=== PATIENT | female | born 1950 | race Asian ===

== ENCOUNTER 2017-10-06 20:35 | Inpatient (IN) | payer MEDICARE, SELFPAY ==
[2017-10-06 20:37] VITALS: BP 132/66; PULSE 41; RESP 16; TEMP 37; O2SAT 96; BMI 32.8
[2017-10-06 20:50] VITALS: PULSE 38; RESP 16; O2SAT 93
--- NOTE | 2017-10-06 21:10 | EKG12_ITS ---
Test Reason : BRADYCARDIA Blood Pressure : / mmHG Vent. Rate : 039 BPM Atrial Rate : 040 BPM P-R Int : 000 ms QRS Dur : 102 ms QT Int : 470 ms P-R-T Axes : 000 042 -30 degrees QTc Int : [address] & T wave abnormality, consider inferior ischemia Abnormal ECG Confirmed by WOOD LAMAR, JAHAIRA ([id number]), television news video editor DALLAS SAMSON ([id number]) on 10/08/2017 2:23:57 PM Referred By: Confirmed By:JAHAIRA MUIR MD
--- NOTE | 2017-10-06 21:15 | RAD_ITS ---
STUDY: X-RAY CHEST REASON FOR EXAM: Female, 67 years old. Dizziness, vaginal bleeding TECHNIQUE: Single AP portable view of the chest. COMPARISON: 06/20/2017. FINDINGS: EKG lines overlying the chest. The lungs are expanded. There is no demonstrated pleural abnormality. There is mild cardiac enlargement. Normal mediastinum and jannette. There is prominence of the pulmonary hilar arteries without peripheral pulmonary vascular congestion, suggesting pulmonary hypertension. Normal visualized aortic arch and descending thoracic aorta. Normal visualized thoracic spine. Normal visualized ribs, clavicles, and shoulders. There is no demonstrated abnormality of the visualized soft tissue structures of the upper abdomen. RAD/Chest 1 View (Portable) IMPRESSION: Pulmonary hypertension. Mild cardiomegaly. No infiltrate. Electronically Signed: Tirso Ovalle DO at 21:42 EST , Service support ,
[2017-10-06] MEDS: 0.9% Normal Saline 1,000 ML 1000 ML IV (21:21)
[2017-10-06 21:23] VITALS: BP 111/62; BP 111/64; BP 122/57; PULSE 35; PULSE 38; PULSE 39
[2017-10-06 21:32] LABS: Anion Gap 11 (5-15); BUN 32 mg/dL (7-18); BUN/Creat Ratio 35.2 RATIO (10-20); Calcium,Total 8.9 mg/dL (8.5-10.1); Chloride 107 mmol/L (98-107); Creatinine, Serum 0.91 mg/dL (0.55-1.02); EST Glomerular Filtration Rate 66 mL/min (>60); Est Glom Filt Rate - Afr Amer 80 mL/min (>60); Estimated Creatinine Clearance 46.51 ml/min; Glucose 155 mg/dL (74-106); Potassium 4.2 mmol/L (3.5-5.1); Sodium Level 140 mmol/L (136-145)
[2017-10-06 21:56] LABS: Absolute Lymphocyte Count 3.74 X10^3/ul (0.83-4.51); Absolute Neutrophil Count 3.4 X10^3/uL (2.0-7.7); Basophil# 0.03 X10^3/uL; Basophil% 0.4 % (0-1); Eosinophil# 0.14 X10^3/uL; Eosinophils% 1.8 % (0-5); Hemoglobin 10.8 g/dl (12.0-15.0); Lymphocyte # 3.74 X10^3/ul (4.0); Lymphocyte % 48.3 % (19-41); Mean Corp Hgb Conc 30.9 g/gl (32-36); Mean Corpuscular Hgb 26.8 pg (27.0-32.0); Mean Corpuscular Volume 86.8 fL (81-99); Mean Platelet Vol. 9.7 fl (6.2-12.0); Monocyte# 0.43 X10^3/uL; Monocyte% 5.5 % (0-10); Neutrophil # 3.38 X10^3/uL (2.7-7.7); Neutrophil % 43.6 % (47-70); Platelet Count 206 K/mm3 (150-450); RBC Distribution Width CV 14.5 % (11.6-14.6); RBC Distribution Width SD 45.8 fl (35.1-43.9); Red Blood Count 4.03 M/mm3 (4.2-5.4); White Blood Count 7.8 K/mm3 (4.4-11.0)
[2017-10-06 21:59] LABS: POSITIVE COUNT NO; POSITIVE DIFFERENTIAL NO; POSITIVE MORPHOLOGY NO
--- NOTE | 2017-10-06 22:21 | US_ITS ---
STUDY: ULTRASOUND OF THE FEMALE PELVIS - COMPLETE REASON FOR EXAM: Female, 67 years old. Post menopausal bleeding TECHNIQUE: Transabdominal and Transvaginal TECHNICAL QUALITY: Adequate. COMPARISON: None. FINDINGS: The uterus is removed. Ovaries are not visualized. No adnexal mass. There is no fluid in the cul-de-sac. The pre void volume of the bladder was 181 ml. Debris within the bladder. US/Pelvic (Non ) IMPRESSION: Uterus removed. No adnexal mass. Ovaries not visualized. Debris within the urinary bladder. Electronically Signed: Tirso Ovalle DO at 23:01 EST , Service support ,
--- NOTE | 2017-10-06 22:24 | ED.VISSUMM ---
- ER Visit Summary Date of Service: 10/06/17 Chief Complaint: Vaginal bleeding, lightheadedness History of Present Illness: The patient is a 67 F presenting with vaginal bleeding which started earlier this morning. She was seen by Dr. Riggs her primary care physician. She confirmed that this was vaginal bleeding and not urinary. She referred her to see Dr. Sarah Hodges a week from Wednesday. She states throughout the day she had bleeding similar to a period. She states she soaked through 4-5 pads. She has a history of previous partial hysterectomy. She is on eliquis for history of atrial fibrillation. She takes metoprolol bid. She has had lightheadedness and near syncope today. Denies chest pain, shortness of breath, or abdominal pain. Physical Examination: Heart rate 30-35. Patient is afebrile. Alert no acute distress. HEENT exam is unremarkable. Neck is supple. Lungs are clear and equal bilaterally. Heart is regular bradycardic Abdomen is soft nontender nondistended. Pelvic exam: Minimal vaginal bleeding Extremities are unremarkable. Skin is warm and dry. Remainder of exam is unremarkable. Emergency Department Course and Treatment: Orthostatics are negative. Patient continues to be bradycardic in the 30s. Chest x-ray shows mild cardiomegaly with no infiltrate. EKG is junctional bradycardia rate of 39 with inferior T-wave inversion. This is changed from previous EKG May 2017. CBC normal except for hemoglobin 10.8. Chemistries unremarkable except for glucose 155, BUN 32. Troponin is negative. Discussed with Dr. Miller who is agreeable with consult, he requests pelvic ultrasound prior to admission. Discussed with Dr. Pollock who will also see the patient in consultation, recommends holding metoprolol and observation. Discussed with the hospitalist for admission. Disposition: Observation Impression: Symptomatic bradycardia, vaginal bleeding This note was generated with [employer] dictation software. It may contain incorrect words, spelling, and punctuation that were not noted in review of the chart prior to signing ED Disposition - Plan for ED Patient: Chief Complaint: Vag Bleeding Referrals: Hannah Riggs DO [Primary Care Provider] -
[2017-10-06 22:26] VITALS: BP 108/67; PULSE 35; RESP 20
--- NOTE | 2017-10-06 22:32 | ED.DCSUM_ITS ---
- ER Visit Summary Date of Service: 10/06/17 Chief Complaint: Vaginal bleeding, lightheadedness History of Present Illness: The patient is a 67 F presenting with vaginal bleeding which started earlier this morning. She was seen by Dr. Riggs her primary care physician. She confirmed that this was vaginal bleeding and not urinary. She referred her to see Dr. Sarah Hodges a week from Wednesday. She states throughout the day she had bleeding similar to a period. She states she soaked through 4-5 pads. She has a history of previous partial hysterectomy. She is on eliquis for history of atrial fibrillation. She takes metoprolol bid. She has had lightheadedness and near syncope today. Denies chest pain, shortness of breath, or abdominal pain. Physical Examination: Heart rate 30-35. Patient is afebrile. Alert no acute distress. HEENT exam is unremarkable. Neck is supple. Lungs are clear and equal bilaterally. Heart is regular bradycardic Abdomen is soft nontender nondistended. Pelvic exam: Minimal vaginal bleeding Extremities are unremarkable. Skin is warm and dry. Remainder of exam is unremarkable. Emergency Department Course and Treatment: Orthostatics are negative. Patient continues to be bradycardic in the 30s. Chest x-ray shows mild cardiomegaly with no infiltrate. EKG is junctional bradycardia rate of 39 with inferior T- wave inversion. This is changed from previous EKG May 2017. CBC normal except for hemoglobin 10.8. Chemistries unremarkable except for glucose 155, BUN 32. Troponin is negative. Discussed with Dr. Miller who is agreeable with consult, he requests pelvic ultrasound prior to admission. Discussed with Dr. Pollock who will also see the patient in consultation, recommends holding metoprolol and observation. Discussed with the hospitalist for admission. Disposition: Observation Impression: Symptomatic bradycardia, vaginal bleeding This note was generated with [employer] dictation software. It may contain incorrect words, spelling, and punctuation that were not noted in review of the chart prior to signing ED Disposition - Plan for ED Patient: Chief Complaint: Vag Bleeding Referrals: Hannah Riggs DO [Primary Care Provider] -
--- NOTE | 2017-10-06 23:49 | PCM.HP.STD ---
Problem List (1) Bradycardia Status: Acute (2) Vaginal bleeding Status: Acute (3) Atrial fibrillation Status: Chronic (4) HLD (hyperlipidemia) Status: Chronic (5) HTN (hypertension) Status: Chronic (6) Diabetes Status: Chronic (7) SDH (subdural hematoma) Status: Chronic (8) Seizure Status: Acute History of Present Illness Date of Admission: 10/06/17 Chief Complaint: vaginal bleeding The patient is a 67 year old F who has been having vaginal bleeding for a few weeks. Once all provider and was noted to be bradycardic and sent to the emergency room. In the emergency room patient was noted noted to have a junctional bradycardia. Patient does states that she is having some chest pain as well as occasional shortness of breath and dizziness. Currently, resting in the bed, she is not having current symptoms. Patient has been on metoprolol for several months now the dose has not been changed. She did receive her metoprolol at 1800 today. Patient did receive IV fluids in the emergency room. Patient has been having is vaginal bleeding which she describes as heavy periods like. Patient had a hysterectomy 20 years ago. Patient is on Eliquis for atrial fibrillation which she has been on for some time. [] Past Medical History Past Medical History (Chronic Problems): Chronic Problems Atrial fibrillation (Chronic) HLD (hyperlipidemia) (Chronic) HTN (hypertension) (Chronic) Diabetes (Chronic) SDH (subdural hematoma) (Chronic) Allergies escitalopram [From Lexapro] Allergy (Verified 10/06/17 20:37) Rash shellfish derived Allergy (Verified 10/06/17 20:37) Unknown perfume Adverse Reaction (Verified 10/06/17 20:37) Unknown pineapple Adverse Reaction (Verified 10/06/17 20:37) Rash quinine Adverse Reaction (Verified 10/06/17 20:37) Unknown strawberry Adverse Reaction (Verified 10/06/17 20:37) Rash Sulfa (Sulfonamide Antibiotics) Adverse Reaction (Verified 10/06/17 20:37) Unknown DUST Adverse Reaction (Uncoded 10/06/17 20:37) Unknown Home Medications: Ambulatory Orders Medication Instructions Recorded Alendronate Sodium [Fosamax] 70 mg PO PRECIADO 04/08/17 Fexofenadine HCl [Children's 30 mg PO DAILY 04/08/17 Merry Allergy] Metformin HCl [Glucophage] 500 mg PO BIDCM 04/08/17 Multivitamins,Therapeutic 1 tablet PO DAILY 04/08/17 [Multivitamin] Simvastatin [Zocor] 40 mg PO QHS 04/08/17 Mirtazapine 30 mg PO QHS 05/20/17 Oxybutynin Chloride [Ditropan Xl] 5 mg PO DAILY 05/20/17 Lacosamide [Vimpat] 200 mg PO BID #60 tablet 09/02/17 Metoprolol Tartrate 25 mg PO BID 09/02/17 Oxycodone HCl/Acetaminophen 1 tablet PO Q6H PRN PRN 09/02/17 [Percocet 5/325] Amlodipine [Norvasc] 5 mg PO DAILY 10/06/17 Apixaban [Eliquis] 2.5 mg PO BID 10/06/17 Empagliflozin [Jardiance] 10 mg PO DAILY 10/06/17 Lacosamide [Vimpat] 200 mg PO BID 10/06/17 Surgical History: no surgical history Psychiatric History: No pertinent psych hx 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 Denies: Edema Respiratory: Reports: Shortness of Breath, Shortness of breath at rest. Denies: Cough, Sputum production Gastrointestinal: Denies: Abdominal Pain, Nausea, Vomiting Genitourinary: Denies: Dysuria Gynecological: Reports: Vaginal bleeding Musculoskeletal: Denies: Joint Pain, Joint Tenderness Skin: Reports: - - Bruising from IV attempts. Denies: Rash, Wounds Neurological: Reports: Seizures. Denies: Focal weakness, Numbness, Tingling Psychiatric: Denies: Anxiety, Depression Endocrine: Denies: Change in Body Habitus, Heat/ Cold Intolerance Hematologic/ Lymphatic: Reports: Easy Bruising, Easy Bleeding. Denies: Hx of blood clot VTE Information - Inpt Only VTE Present on Admission: No VTE Mechan Device Prophylaxis: SCD's Reason prophylaxis not ordered:: Medical Contraindication Patient Problems: Active and Suspected Problems Bradycardia (Acute) Vaginal bleeding (Acute) - Physical Exam General: Alert, Cooperative, No apparent distress HEENT: Atraumatic, Normocephalic, - - No icterus Oral: Moist Mucosa, No Gingival or Mucosal Lesions/ Ulcerations Neck: No Nodes, Thyroid Normal Size and Texture Lungs: Clear to auscultation, Normal air movement, No rhonchi, No wheeze Cardiovascular: Regular rate, Regular Rhythm, Normal S1, Normal S2, No murmurs Abdomen: Bowel Sounds Present, Soft, Non Tender, Non-Distended, No Hepato-splenomegaly Extremities: No edema, No Calf Tenderness Skin: No rashes, - - Some bruising in the left antecubital from IV attempts and lab draws. Musculoskeletal: No Tenderness to Palpation of Joints or Extremities, No Muscle Wasting Neurological: Deep Tendon Reflexes 2+/4 and Symmetrical, Neuro grossly intact, Sensory exam intact to light touch and pain, - - No clonus Psych/Mental Status: Normal Affect, Appropriate Vital Signs Temp Pulse Resp BP Pulse Ox 37.0 C 35 L 20 H 108/67 93 10/06/17 20:37 10/06/17 22:26 10/06/17 22:26 10/06/17 22:26 10/06/17 20:50 Oxygen Delivery Method Room Air Weight: 78.8 kg Body Mass Index (BMI) 32.8 Finger Stick Blood Glucose 129 Laboratory Tests Past 24 Hrs 10/06/17 10/06/17 20:55 20:55 WBC 7.8 RBC 4.03 L Hgb 10.8 L Hct 35.0 L MCV 86.8 MCH 26.8 L MCHC 30.9 L RDW 14.5 RDW Differential 45.8 H Plt Count 206 MPV 9.7 Immature Gran % (Auto) 0.400 Neut % (Auto) 43.6 L Lymph % (Auto) 48.3 H [place] % (Auto) 5.5 Eos % (Auto) 1.8 Baso % (Auto) 0.4 Absolute Neuts (auto) 3.4 Absolute Lymphs (auto) 3.74 Total Counted Not Reportable Sodium 140 Potassium 4.2 Chloride 107 Carbon Dioxide 22.0 Anion Gap 11 BUN 32 H Creatinine 0.91 Estim Creat Clear Calc 46.51 Est GFR (MDRD) Af Amer 80 Est GFR (MDRD) Non-Af 66 BUN/Creatinine Ratio 35.2 H Glucose 155 H Calcium 8.9 Troponin I 0.03 Clinical Impression(s) from Imaging Studies Chest X-Ray 10/06/17 21:15 IMPRESSION: Pulmonary hypertension. Mild cardiomegaly. No infiltrate. Electronically Signed: Trisoamrik NuñezDO vianney at 21:42 EST , Service support , Pelvis Ultrasound 10/06/17 22:21 IMPRESSION: Uterus removed. No adnexal mass. Ovaries not visualized. Debris within the urinary bladder. Electronically Signed: Tirso Ovalle DO at 23:01 EST , Service support , EKG personally reviewed and showed a junctional bradycardia. Assessment/Plan Active and Suspected Problems Bradycardia (Acute) Vaginal bleeding (Acute) 1. Bradycardia Junctional on EKG Patient is on metoprolol 25 twice daily. That will be held. Patient's last dose was at 1800 today. Cardiology has been notified by the emergency room and will see the patient on consultation. We will see how the patient's heart rate does overnight. It is possible that this may have been going on for a period of time but is unclear as patient was just being assessed for the vaginal bleeding where it was noted at that time 2. Vaginal bleeding Postmenopausal, however the patient has already had a hysterectomy Patient's Eliquis will be held. I do not feel that the Eliquis was directly causing the bleeding but certainly is contributing to it. Dr. Miller was notified by the emergency room and will see the patient in consultation. 3. Atrial fibrillation Patient now with a junctional bradycardia and vaginal bleeding so the patient's Eliquis and metoprolol are being held. 4. DVT prophylaxis: Patient will be on SCDs 5. Seizure disorder gave the patient her Vimpat at 2230. Continue with her seizure medications Code Visit Inpatient E&M: 23652 In Hosp L3
--- NOTE | 2017-10-06 23:57 | HP.PCM_ITS ---
Problem List (1) Bradycardia Status: Acute (2) Vaginal bleeding Status: Acute (3) Atrial fibrillation Status: Chronic (4) HLD (hyperlipidemia) Status: Chronic (5) HTN (hypertension) Status: Chronic (6) Diabetes Status: Chronic (7) SDH (subdural hematoma) Status: Chronic (8) Seizure Status: Acute History of Present Illness Date of Admission: 10/06/17 Chief Complaint: vaginal bleeding The patient is a 67 year old F who has been having vaginal bleeding for a few weeks. Once all provider and was noted to be bradycardic and sent to the emergency room. In the emergency room patient was noted noted to have a junctional bradycardia. Patient does states that she is having some chest pain as well as occasional shortness of breath and dizziness. Currently, resting in the bed, she is not having current symptoms. Patient has been on metoprolol for several months now the dose has not been changed. She did receive her metoprolol at 1800 today. Patient did receive IV fluids in the emergency room. Patient has been having is vaginal bleeding which she describes as heavy periods like. Patient had a hysterectomy 20 years ago. Patient is on Eliquis for atrial fibrillation which she has been on for some time. [] Past Medical History Past Medical History (Chronic Problems): Chronic Problems Atrial fibrillation (Chronic) HLD (hyperlipidemia) (Chronic) HTN (hypertension) (Chronic) Diabetes (Chronic) SDH (subdural hematoma) (Chronic) Allergies escitalopram [From Lexapro] Allergy (Verified 10/06/17 20:37) Rash shellfish derived Allergy (Verified 10/06/17 20:37) Unknown perfume Adverse Reaction (Verified 10/06/17 20:37) Unknown pineapple Adverse Reaction (Verified 10/06/17 20:37) Rash quinine Adverse Reaction (Verified 10/06/17 20:37) Unknown strawberry Adverse Reaction (Verified 10/06/17 20:37) Rash Sulfa (Sulfonamide Antibiotics) Adverse Reaction (Verified 10/06/17 20:37) Unknown DUST Adverse Reaction (Uncoded 10/06/17 20:37) Unknown Home Medications: Ambulatory Orders Medication Instructions Recorded Alendronate Sodium [Fosamax] 70 mg PO PRECIADO 04/08/17 Fexofenadine HCl [Children's 30 mg PO DAILY 04/08/17 Merry Allergy] Metformin HCl [Glucophage] 500 mg PO BIDCM 04/08/17 Multivitamins,Therapeutic 1 tablet PO DAILY 04/08/17 [Multivitamin] Simvastatin [Zocor] 40 mg PO QHS 04/08/17 Mirtazapine 30 mg PO QHS 05/20/17 Oxybutynin Chloride [Ditropan Xl] 5 mg PO DAILY 05/20/17 Lacosamide [Vimpat] 200 mg PO BID #60 tablet 09/02/17 Metoprolol Tartrate 25 mg PO BID 09/02/17 Oxycodone HCl/Acetaminophen 1 tablet PO Q6H PRN PRN 09/02/17 [Percocet 5/325] Amlodipine [Norvasc] 5 mg PO DAILY 10/06/17 Apixaban [Eliquis] 2.5 mg PO BID 10/06/17 Empagliflozin [Jardiance] 10 mg PO DAILY 10/06/17 Lacosamide [Vimpat] 200 mg PO BID 10/06/17 Surgical History: no surgical history Psychiatric History: No pertinent psych hx 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 Denies: Edema Respiratory: Reports: Shortness of Breath, Shortness of breath at rest. Denies : Cough, Sputum production Gastrointestinal: Denies: Abdominal Pain, Nausea, Vomiting Genitourinary: Denies: Dysuria Gynecological: Reports: Vaginal bleeding Musculoskeletal: Denies: Joint Pain, Joint Tenderness Skin: Reports: - - Bruising from IV attempts. Denies: Rash, Wounds Neurological: Reports: Seizures. Denies: Focal weakness, Numbness, Tingling Psychiatric: Denies: Anxiety, Depression Endocrine: Denies: Change in Body Habitus, Heat/ Cold Intolerance Hematologic/ Lymphatic: Reports: Easy Bruising, Easy Bleeding. Denies: Hx of blood clot VTE Information - Inpt Only VTE Present on Admission: No VTE Mechan Device Prophylaxis: SCD's Reason prophylaxis not ordered:: Medical Contraindication Patient Problems: Active and Suspected Problems Bradycardia (Acute) Vaginal bleeding (Acute) - Physical Exam General: Alert, Cooperative, No apparent distress HEENT: Atraumatic, Normocephalic, - - No icterus Oral: Moist Mucosa, No Gingival or Mucosal Lesions/ Ulcerations Neck: No Nodes, Thyroid Normal Size and Texture Lungs: Clear to auscultation, Normal air movement, No rhonchi, No wheeze Cardiovascular: Regular rate, Regular Rhythm, Normal S1, Normal S2, No murmurs Abdomen: Bowel Sounds Present, Soft, Non Tender, Non-Distended, No Hepato- splenomegaly Extremities: No edema, No Calf Tenderness Skin: No rashes, - - Some bruising in the left antecubital from IV attempts and lab draws. Musculoskeletal: No Tenderness to Palpation of Joints or Extremities, No Muscle Wasting Neurological: Deep Tendon Reflexes 2+/4 and Symmetrical, Neuro grossly intact, Sensory exam intact to light touch and pain, - - No clonus Psych/Mental Status: Normal Affect, Appropriate Vital Signs Temp Pulse Resp BP Pulse Ox 37.0 C 35 L 20 H 108/67 93 10/06/17 20:37 10/06/17 22:26 10/06/17 22:26 10/06/17 22:26 10/06/17 20:50 Oxygen Delivery Method Room Air Weight: 78.8 kg Body Mass Index (BMI) 32.8 Finger Stick Blood Glucose 129 Laboratory Tests Past 24 Hrs 10/06/17 10/06/17 20:55 20:55 WBC 7.8 RBC 4.03 L Hgb 10.8 L Hct 35.0 L MCV 86.8 MCH 26.8 L MCHC 30.9 L RDW 14.5 RDW Differential 45.8 H Plt Count 206 MPV 9.7 Immature Gran % (Auto) 0.400 Neut % (Auto) 43.6 L Lymph % (Auto) 48.3 H [place] % (Auto) 5.5 Eos % (Auto) 1.8 Baso % (Auto) 0.4 Absolute Neuts (auto) 3.4 Absolute Lymphs (auto) 3.74 Total Counted Not Reportable Sodium 140 Potassium 4.2 Chloride 107 Carbon Dioxide 22.0 Anion Gap 11 BUN 32 H Creatinine 0.91 Estim Creat Clear Calc 46.51 Est GFR (MDRD) Af Amer 80 Est GFR (MDRD) Non-Af 66 BUN/Creatinine Ratio 35.2 H Glucose 155 H Calcium 8.9 Troponin I 0.03 Clinical Impression(s) from Imaging Studies Chest X-Ray 10/06/17 21:15 IMPRESSION: Pulmonary hypertension. Mild cardiomegaly. No infiltrate. Electronically Signed: Tirsoamrik NuñezDO vianney at 21:42 EST , Service support , Pelvis Ultrasound 10/06/17 22:21 IMPRESSION: Uterus removed. No adnexal mass. Ovaries not visualized. Debris within the urinary bladder. Electronically Signed: Tirso Ovalle DO at 23:01 EST , Service support , EKG personally reviewed and showed a junctional bradycardia. Assessment/Plan Active and Suspected Problems Bradycardia (Acute) Vaginal bleeding (Acute) 1. Bradycardia * Junctional on EKG * Patient is on metoprolol 25 twice daily. That will be held. Patient's last dose was at 1800 today. * Cardiology has been notified by the emergency room and will see the patient on consultation. We will see how the patient's heart rate does overnight. It is possible that this may have been going on for a period of time but is unclear as patient was just being assessed for the vaginal bleeding where it was noted at that time 2. Vaginal bleeding * Postmenopausal, however the patient has already had a hysterectomy * Patient's Eliquis will be held. I do not feel that the Eliquis was directly causing the bleeding but certainly is contributing to it. * Dr. Miller was notified by the emergency room and will see the patient in consultation. 3. Atrial fibrillation * Patient now with a junctional bradycardia and vaginal bleeding so the patient' s Eliquis and metoprolol are being held. 4. DVT prophylaxis: Patient will be on SCDs 5. Seizure disorder * gave the patient her Vimpat at 2230. Continue with her seizure medications Code Visit Inpatient E&M: 52784 Init Hosp L3
[2017-10-07] VITALS (15 sets, daily range): BP systolic 111–135; BP diastolic 51–87; PULSE 36–81; RESP 16–20; TEMP 36.6–37.1; O2SAT 93–96; BMI 32.1; BMI 32.2
[2017-10-07] MEDS: 0.9% NaCl Peripheral Flush Adult/Peds IV (00:50)
[2017-10-07] MEDS: 0.9% Normal Saline 1,000 ML 125 ML IV (00:59)
[2017-10-07 04:32] LABS: International Normalized Ratio 1.3; Prothrombin Time (Protime)PT. 15.6 SECONDS (11.7-14.9)
[2017-10-07 04:33] LABS: Hematocrit 32.7 % (37-47); Mean Corp Hgb Conc 30.6 g/gl (32-36); Mean Corpuscular Hgb 27.1 pg (27.0-32.0); Mean Corpuscular Volume 88.6 fL (81-99); Mean Platelet Vol. 10.1 fl (6.2-12.0); Platelet Count 192 K/mm3 (150-450); RBC Distribution Width CV 14.7 % (11.6-14.6); RBC Distribution Width SD 45.7 fl (35.1-43.9); Red Blood Count 3.69 M/mm3 (4.2-5.4); White Blood Count 6.9 K/mm3 (4.4-11.0)
[2017-10-07 04:35] LABS: Scan Indicated on CBC? Y/N NO
[2017-10-07 06:10] LABS: Anion Gap 11 (5-15); BUN 30 mg/dL (7-18); BUN/Creat Ratio 38.1 RATIO (10-20); Chloride 109 mmol/L (98-107); Creatinine, Serum 0.79 mg/dL (0.55-1.02); EST Glomerular Filtration Rate 78 mL/min (>60); Est Glom Filt Rate - Afr Amer 94 mL/min (>60); Estimated Creatinine Clearance 53.57 ml/min; Glucose 151 mg/dL (74-106); Sodium Level 140 mmol/L (136-145)
[2017-10-07 06:56] LABS: Bedside Glucose 155 mg/dL (70-110)
--- NOTE | 2017-10-07 08:20 | PCM.CONS.C ---
Reason for Consult Date of Consultation: 10/07/17 Reason for Consultation: Evaluation of slow heart rate. History of Present Illness: The patient is a 67 year old F with a history of atrial fibrillation whom I had seen in May 2017 with hypertensive emergency and paroxysmal atrial fibrillation. She was placed on beta-wiley and subsequently discharged. She apparently presented to see her primary physician with vaginal bleeding was noted to be bradycardic but asymptomatic and then was sent to the emergency room. In the emergency room was noted to be in a junctional bradycardia and the emergency room physician called me to assist in management. She denies any chest pain or shortness of breath or paroxysmal nocturnal dyspnea or pedal edema she has not had any recent seizure episodes. Remember that she has had a previous diagnosis of his subdural hematoma and seizures. She denies any chest pain shortness of breath paroxysmal nocturnal dyspnea or pedal edema no neck arm or jaw discomfort suggest angina during her last visit she had an echocardiogram performed which demonstrated preserved ejection fraction. Past Medical History Allergies/Adverse Reactions: Allergies escitalopram [From Lexapro] Allergy (Verified 10/06/17 20:37) Rash shellfish derived Allergy (Verified 10/06/17 20:37) Unknown perfume Adverse Reaction (Verified 10/06/17 20:37) Unknown pineapple Adverse Reaction (Verified 10/06/17 20:37) Rash quinine Adverse Reaction (Verified 10/06/17 20:37) Unknown strawberry Adverse Reaction (Verified 10/06/17 20:37) Rash Sulfa (Sulfonamide Antibiotics) Adverse Reaction (Verified 10/06/17 20:37) Unknown DUST Adverse Reaction (Uncoded 10/06/17 20:37) Unknown Home Medications: Ambulatory Orders Medication Instructions Recorded Alendronate Sodium [Fosamax] 70 mg PO PRECIADO 04/08/17 Fexofenadine HCl [Children's 30 mg PO DAILY 04/08/17 Merry Allergy] Metformin HCl [Glucophage] 500 mg PO BIDCM 04/08/17 Multivitamins,Therapeutic 1 tablet PO DAILY 04/08/17 [Multivitamin] Simvastatin [Zocor] 40 mg PO QHS 04/08/17 Mirtazapine 30 mg PO QHS 05/20/17 Oxybutynin Chloride [Ditropan Xl] 5 mg PO DAILY 05/20/17 Lacosamide [Vimpat] 200 mg PO BID #60 tablet 09/02/17 Metoprolol Tartrate 25 mg PO BID 09/02/17 Oxycodone HCl/Acetaminophen 1 tablet PO Q6H PRN PRN 09/02/17 [Percocet 5/325] Amlodipine [Norvasc] 5 mg PO DAILY 10/06/17 Apixaban [Eliquis] 2.5 mg PO BID 10/06/17 Empagliflozin [Jardiance] 10 mg PO DAILY 10/06/17 Lacosamide [Vimpat] 200 mg PO BID 10/06/17 Past Medical History (Chronic Problems): Chronic Problems Atrial fibrillation (Chronic) HLD (hyperlipidemia) (Chronic) HTN (hypertension) (Chronic) Diabetes (Chronic) SDH (subdural hematoma) (Chronic) Surgical History: no surgical history Psychiatric History: No pertinent psych hx ATHLETICS DIRECTOR History: No pertinent ATHLETICS DIRECTOR history - *Family History Maternal History Items: No pertinent history Sibling History Items: Heart Disease Smoking Status: Never smoker Alcohol: None Drugs: None Review of Systems - Review of Systems General: Denies: Fever, Night Sweats, Fatigue Cardiovascular: Denies: Chest Discomfort, Shortness of Breath, Orthopnea, PND, Peripheral Edema, Palpitations, Lightheadedness, Dizziness, Near Syncope, Syncope Respiratory: Denies: Cough, Sputum Production, Hemoptysis Gastrointestinal: Denies: Hematemesis, Hematochezia, Melena Genitourinary: Reports: - - vaginal bleeding. Denies: Dysuria, Hematuria Skin: Denies: Rash Neurological: Reports: Seizure Subjectve: Lady in no apparent distress Objective: Vital Signs Temp Pulse Resp BP Pulse Ox 97.9 F 40 L 18 112/60 93 10/07/17 02:30 10/07/17 07:11 10/07/17 02:30 10/07/17 02:30 10/07/17 02:30 Oxygen Delivery Method Room Air Weight: 170 lb 3.15 oz Body Mass Index (BMI) 32.1 Intake and Output for Last 24 Hours 10/05/17 10/06/17 10/07/17 23:59 23:59 23:59 Intake Total 658 / 658 Balance 658 / 658 General: Awake, Alert, Oriented x 3 HEENT: PERRL, EOMI, Sclera Non Icteric Neck: Supple, Good ROM, No Lymph Node Enlargement Lungs: Clear to auscultation Cardiovascular: Regular Rhythm, Normal S1, Normal S2, No Murmurs, No Rubs, No Gallops Vascular: No Carotid Bruits, Normal Femoral Pulses, Normal Radial Pulses, Normal Dorsalis Pedal Pulse, Normal Posterior Tibial Pulses Abdomen: Bowel Sounds Present, Soft, Non Tender, No HSM, No Organomegaly Extremities: No Cyanosis, No Clubbing, No edema Neurological: No Focal Motor or Sensory Deficit 10/07/17 00:15: Troponin I 0.03 10/07/17 04:04: Troponin I 0.03 10/07/17 04:04: WBC 6.9, RBC 3.69 L, Hgb 10.0 L, Hct 32.7 L, MCV 88.6, MCH 27.1, MCHC 30.6 L, RDW 14.7 H, RDW Differential 45.7 H, Plt Count 192, MPV 10.1 10/07/17 04:04: PT 15.6 H, INR 1.3 10/07/17 04:04: Sodium 140, Potassium 4.0, Chloride 109 H, Carbon Dioxide 20.0 L, Anion Gap 11, BUN 30 H, Creatinine 0.79, Est GFR (MDRD) Af Amer 94, Est GFR (MDRD) Non-Af 78, BUN/Creatinine Ratio 38.1 H, Glucose 151 H, Calcium 8.0 L Rhythm: EKG: Junctional bradycardia ECHO: Ejection fraction of 60%. Assessment/Plan 1. Junctional bradycardia. She has a history of previous atrial fibrillation and was put on beta-wiley. She appears to be on a small dose of beta-wiley and this may be related to an early tachybradycardia syndrome. My recommendation at this time is to discontinue her beta-wiley and see how much her heart rate improves. She is currently maintaining sinus rhythm. I doubt that she is back in underlying atrial fibrillation. Will make a recommendation as to how much beta wiley or antiarrhythmic to put her on in the next 24 hours. 2. Atrial fibrillation He does have a history of atrial fibrillation in the past. But at this time appears to be in a junctional rhythm. We will continue to observe her regarding the above. 3.. Lipidemia She does have a history of hyperlipidemia in the past which has been significant. Recommend that she continue on her lipid-lowering medication. Thank you for allowing me to participate in the care of your patient. Please don't hesitate to call if any issues arise
--- NOTE | 2017-10-07 08:27 | CON.PCM_ITS ---
Reason for Consult Date of Consultation: 10/07/17 Reason for Consultation: Evaluation of slow heart rate. History of Present Illness: The patient is a 67 year old F with a history of atrial fibrillation whom I had seen in May 2017 with hypertensive emergency and paroxysmal atrial fibrillation. She was placed on beta-wiley and subsequently discharged. She apparently presented to see her primary physician with vaginal bleeding was noted to be bradycardic but asymptomatic and then was sent to the emergency room. In the emergency room was noted to be in a junctional bradycardia and the emergency room physician called me to assist in management. She denies any chest pain or shortness of breath or paroxysmal nocturnal dyspnea or pedal edema she has not had any recent seizure episodes. Remember that she has had a previous diagnosis of his subdural hematoma and seizures. She denies any chest pain shortness of breath paroxysmal nocturnal dyspnea or pedal edema no neck arm or jaw discomfort suggest angina during her last visit she had an echocardiogram performed which demonstrated preserved ejection fraction. Past Medical History Allergies/Adverse Reactions: Allergies escitalopram [From Lexapro] Allergy (Verified 10/06/17 20:37) Rash shellfish derived Allergy (Verified 10/06/17 20:37) Unknown perfume Adverse Reaction (Verified 10/06/17 20:37) Unknown pineapple Adverse Reaction (Verified 10/06/17 20:37) Rash quinine Adverse Reaction (Verified 10/06/17 20:37) Unknown strawberry Adverse Reaction (Verified 10/06/17 20:37) Rash Sulfa (Sulfonamide Antibiotics) Adverse Reaction (Verified 10/06/17 20:37) Unknown DUST Adverse Reaction (Uncoded 10/06/17 20:37) Unknown Home Medications: Ambulatory Orders Medication Instructions Recorded Alendronate Sodium [Fosamax] 70 mg PO PRECIADO 04/08/17 Fexofenadine HCl [Children's 30 mg PO DAILY 04/08/17 Merry Allergy] Metformin HCl [Glucophage] 500 mg PO BIDCM 04/08/17 Multivitamins,Therapeutic 1 tablet PO DAILY 04/08/17 [Multivitamin] Simvastatin [Zocor] 40 mg PO QHS 04/08/17 Mirtazapine 30 mg PO QHS 05/20/17 Oxybutynin Chloride [Ditropan Xl] 5 mg PO DAILY 05/20/17 Lacosamide [Vimpat] 200 mg PO BID #60 tablet 09/02/17 Metoprolol Tartrate 25 mg PO BID 09/02/17 Oxycodone HCl/Acetaminophen 1 tablet PO Q6H PRN PRN 09/02/17 [Percocet 5/325] Amlodipine [Norvasc] 5 mg PO DAILY 10/06/17 Apixaban [Eliquis] 2.5 mg PO BID 10/06/17 Empagliflozin [Jardiance] 10 mg PO DAILY 10/06/17 Lacosamide [Vimpat] 200 mg PO BID 10/06/17 Past Medical History (Chronic Problems): Chronic Problems Atrial fibrillation (Chronic) HLD (hyperlipidemia) (Chronic) HTN (hypertension) (Chronic) Diabetes (Chronic) SDH (subdural hematoma) (Chronic) Surgical History: no surgical history Psychiatric History: No pertinent psych hx PSYCHIATRIC RN History: No pertinent PSYCHIATRIC RN history - *Family History Maternal History Items: No pertinent history Sibling History Items: Heart Disease Smoking Status: Never smoker Alcohol: None Drugs: None Review of Systems - Review of Systems General: Denies: Fever, Night Sweats, Fatigue Cardiovascular: Denies: Chest Discomfort, Shortness of Breath, Orthopnea, PND, Peripheral Edema, Palpitations, Lightheadedness, Dizziness, Near Syncope, Syncope Respiratory: Denies: Cough, Sputum Production, Hemoptysis Gastrointestinal: Denies: Hematemesis, Hematochezia, Melena Genitourinary: Reports: - - vaginal bleeding. Denies: Dysuria, Hematuria Skin: Denies: Rash Neurological: Reports: Seizure Subjectve: Lady in no apparent distress Objective: Vital Signs Temp Pulse Resp BP Pulse Ox 97.9 F 40 L 18 112/60 93 10/07/17 02:30 10/07/17 07:11 10/07/17 02:30 10/07/17 02:30 10/07/17 02:30 Oxygen Delivery Method Room Air Weight: 170 lb 3.15 oz Body Mass Index (BMI) 32.1 Intake and Output for Last 24 Hours 10/05/17 10/06/17 10/07/17 23:59 23:59 23:59 Intake Total 658 / 658 Balance 658 / 658 General: Awake, Alert, Oriented x 3 HEENT: PERRL, EOMI, Sclera Non Icteric Neck: Supple, Good ROM, No Lymph Node Enlargement Lungs: Clear to auscultation Cardiovascular: Regular Rhythm, Normal S1, Normal S2, No Murmurs, No Rubs, No Gallops Vascular: No Carotid Bruits, Normal Femoral Pulses, Normal Radial Pulses, Normal Dorsalis Pedal Pulse, Normal Posterior Tibial Pulses Abdomen: Bowel Sounds Present, Soft, Non Tender, No HSM, No Organomegaly Extremities: No Cyanosis, No Clubbing, No edema Neurological: No Focal Motor or Sensory Deficit 10/07/17 00:15: Troponin I 0.03 10/07/17 04:04: Troponin I 0.03 10/07/17 04:04: WBC 6.9, RBC 3.69 L, Hgb 10.0 L, Hct 32.7 L, MCV 88.6, MCH 27.1 , MCHC 30.6 L, RDW 14.7 H, RDW Differential 45.7 H, Plt Count 192, MPV 10.1 10/07/17 04:04: PT 15.6 H, INR 1.3 10/07/17 04:04: Sodium 140, Potassium 4.0, Chloride 109 H, Carbon Dioxide 20.0 L , Anion Gap 11, BUN 30 H, Creatinine 0.79, Est GFR (MDRD) Af Amer 94, Est GFR ( MDRD) Non-Af 78, BUN/Creatinine Ratio 38.1 H, Glucose 151 H, Calcium 8.0 L Rhythm: EKG: Junctional bradycardia ECHO: Ejection fraction of 60%. Assessment/Plan 1. Junctional bradycardia. She has a history of previous atrial fibrillation and was put on beta-wiley. She appears to be on a small dose of beta-wiley and this may be related to an early tachybradycardia syndrome. My recommendation at this time is to discontinue her beta-wiley and see how much her heart rate improves. She is currently maintaining sinus rhythm. I doubt that she is back in underlying atrial fibrillation. Will make a recommendation as to how much beta wiley or antiarrhythmic to put her on in the next 24 hours. 2. Atrial fibrillation He does have a history of atrial fibrillation in the past. But at this time appears to be in a junctional rhythm. We will continue to observe her regarding the above. 3.. Lipidemia She does have a history of hyperlipidemia in the past which has been significant. Recommend that she continue on her lipid-lowering medication. Thank you for allowing me to participate in the care of your patient. Please don't hesitate to call if any issues arise
--- NOTE | 2017-10-07 08:40 | CON.PCM_ITS ---
Problem List (1) Vaginal bleeding Status: Acute Reason for Consult Date of Consultation: 10/07/17 Reason for Consultation: Vaginal bleeding History of Present Illness: The patient is a 67 year old F [who presented to the ER with 2 days of vaginal bleeding reported as like a period. Bleeding decribed as bright red. No previous episodes of bleeding. Does not report hematuria or rectal bleeding. She is on an anticoagulant. History significant for CARLOTA performed secondary to fibroid uterus years ago. She reports her cervix was removed. She is currently not sexually active to any extent.] Past Medical History Past Medical History (Chronic Problems): Chronic Problems Atrial fibrillation (Chronic) HLD (hyperlipidemia) (Chronic) HTN (hypertension) (Chronic) Diabetes (Chronic) SDH (subdural hematoma) (Chronic) Allergies escitalopram [From Lexapro] Allergy (Verified 10/06/17 20:37) Rash shellfish derived Allergy (Verified 10/06/17 20:37) Unknown perfume Adverse Reaction (Verified 10/06/17 20:37) Unknown pineapple Adverse Reaction (Verified 10/06/17 20:37) Rash quinine Adverse Reaction (Verified 10/06/17 20:37) Unknown strawberry Adverse Reaction (Verified 10/06/17 20:37) Rash Sulfa (Sulfonamide Antibiotics) Adverse Reaction (Verified 10/06/17 20:37) Unknown DUST Adverse Reaction (Uncoded 10/06/17 20:37) Unknown Home Medications: Ambulatory Orders Medication Instructions Recorded Alendronate Sodium [Fosamax] 70 mg PO PRECIADO 04/08/17 Fexofenadine HCl [Children's 30 mg PO DAILY 04/08/17 Merry Allergy] Metformin HCl [Glucophage] 500 mg PO BIDCM 04/08/17 Multivitamins,Therapeutic 1 tablet PO DAILY 04/08/17 [Multivitamin] Simvastatin [Zocor] 40 mg PO QHS 04/08/17 Mirtazapine 30 mg PO QHS 05/20/17 Oxybutynin Chloride [Ditropan Xl] 5 mg PO DAILY 05/20/17 Lacosamide [Vimpat] 200 mg PO BID #60 tablet 09/02/17 Metoprolol Tartrate 25 mg PO BID 09/02/17 Oxycodone HCl/Acetaminophen 1 tablet PO Q6H PRN PRN 09/02/17 [Percocet 5/325] Amlodipine [Norvasc] 5 mg PO DAILY 10/06/17 Apixaban [Eliquis] 2.5 mg PO BID 10/06/17 Empagliflozin [Jardiance] 10 mg PO DAILY 10/06/17 Lacosamide [Vimpat] 200 mg PO BID 10/06/17 Surgical History: no surgical history Psychiatric History: No pertinent psych hx MANAGER RISK MANAGEMENT History: No pertinent MANAGER RISK MANAGEMENT history Smoking Status: Never smoker Alcohol: None Drugs: None - *Family History Maternal History Items: No pertinent history Sibling History Items: Heart Disease Review of Systems Constitutional: Denies: Fever, Night Sweats, Malaise, Weakness Gastrointestinal: Denies: Abdominal Pain, Constipation, Diarrhea, Nausea, Melena , Vomiting Genitourinary: Denies: Dysuria, Frequency, Hematuria Gynecological: Reports: Vaginal bleeding Patient Problems: Active and Suspected Problems Bradycardia (Acute) Vaginal bleeding (Acute) Subjective: Awake, alert and good historian Objective: Afeb VSS - Physical Exam General: Alert, Oriented x3, Cooperative, No apparent distress Abdomen: Soft, Non Tender, Non-Distended, - - no masses Extremities: No edema Neurological: Neuro grossly intact Psych/Mental Status: Normal Affect Comment: Vaginal speculum exam. No obvious lesions. Vital Signs Temp Pulse Resp BP Pulse Ox 97.9 F 40 L 18 112/60 93 10/07/17 02:30 10/07/17 07:11 10/07/17 02:30 10/07/17 02:30 10/07/17 02:30 Oxygen Delivery Method Room Air Weight: 170 lb 3.15 oz Body Mass Index (BMI) 32.1 Intake and Output for Last 24 Hours 10/05/17 10/06/17 10/07/17 23:59 23:59 23:59 Intake Total 658 / 658 Balance 658 / 658 Laboratory Tests Past 24 Hrs 10/07/17 10/07/17 10/07/17 00:15 04:04 04:04 WBC 6.9 RBC 3.69 L Hgb 10.0 L Hct 32.7 L MCV 88.6 MCH 27.1 MCHC 30.6 L RDW 14.7 H RDW Differential 45.7 H Plt Count 192 MPV 10.1 PT INR Sodium Potassium Chloride Carbon Dioxide Anion Gap BUN Creatinine Estim Creat Clear Calc Est GFR (MDRD) Af Amer Est GFR (MDRD) Non-Af BUN/Creatinine Ratio Glucose Calcium Troponin I 0.03 0.03 10/07/17 10/07/17 04:04 04:04 WBC RBC Hgb Hct MCV MCH MCHC RDW RDW Differential Plt Count MPV PT 15.6 H INR 1.3 Sodium 140 Potassium 4.0 Chloride 109 H Carbon Dioxide 20.0 L Anion Gap 11 BUN 30 H Creatinine 0.79 Estim Creat Clear Calc 53.57 Est GFR (MDRD) Af Amer 94 Est GFR (MDRD) Non-Af 78 BUN/Creatinine Ratio 38.1 H Glucose 151 H Calcium 8.0 L Troponin I POC Glucose 10/07/17 06:49 POC Glucose 155 H Assessment/Plan Active and Suspected Problems Bradycardia (Acute) Vaginal bleeding (Acute) Exam in the bed with sterile speculum shows significant vaginal atrophy. On exam some small amount of bleeding from posterior vaginal cuff. I would recommend the she be given estrace vaginal cream 2 grams vaginally nightly for now. She can safely followup in the office as scheduled. I do not feel that she has any significant vaginal pathology. No masses appreciated on exam.
[2017-10-07] MEDS: Tolterodine Tartrate 2 MG CAP.SA PO (09:13)
[2017-10-07] MEDS: Lacosamide 100 MG Tablet 200 MG PO ×2 (09:13→21:59)
[2017-10-07] MEDS: Multivitamins,Therapeutic Tablet 1 TABLET PO (09:13)
[2017-10-07] MEDS: amLODIPine 5 MG Tablet PO (09:13)
[2017-10-07] MEDS: Empagliflozin 10 MG Tablet PO (09:21)
--- NOTE | 2017-10-07 13:43 | CASEMGMT ---
Face to Face with patient for initial transition planning/care coordination assessment. RN MIKEY introduced self and role at [facility], pt voices understanding and consents to assessment at this time. Pt sitting up in bed in no distress at this time. Pt A/O x4 at this time and answers all questions appropriately at this time. Care providers, pharmacy, and demographics verified. See attached link. Pt voices no further concerns/needs at this time. Advised pt to ask for CM if any further questions/concerns/needs arise, voices understanding. CM to follow for any further discharge planning/needs. PLAN: [place] [facility]
--- NOTE | 2017-10-07 17:49 | PCM.PN.HOSP ---
Patient Problems: Active and Suspected Problems Bradycardia (Acute) Vaginal bleeding (Acute) Subjective: CC: Bradycardia Her HR is in the 40s, blockers are on hold. She denies any dizziness , palpitations or SOB. Vitals/I&O's: Vital Signs Temp Pulse Resp BP Pulse Ox 98.7 F 49 L 16 112/59 L 93 10/07/17 17:46 10/07/17 17:46 10/07/17 17:46 10/07/17 17:46 10/07/17 17:46 Oxygen Delivery Method Room Air Weight: 77.2 kg Body Mass Index (BMI) 32.1 Intake and Output for Last 24 Hours 10/05/17 10/06/17 10/07/17 23:59 23:59 23:59 Intake Total 1018 / 1018 Balance 1018 / 1018 General: Alert, Oriented x3 HEENT: Atraumatic Oral: Moist Mucosa Neck: No JVD Lungs: Clear to auscultation Cardiovascular: Regular rate, Normal S1 Abdomen: Bowel Sounds Present, Soft Musculoskeletal: No Tenderness to Palpation of Joints or Extremities Laboratory Results 10/07/17 00:15: Troponin I 0.03 10/07/17 04:04: Troponin I 0.03 10/07/17 04:04: WBC 6.9, RBC 3.69 L, Hgb 10.0 L, Hct 32.7 L, MCV 88.6, MCH 27.1, MCHC 30.6 L, RDW 14.7 H, RDW Differential 45.7 H, Plt Count 192, MPV 10.1 10/07/17 04:04: PT 15.6 H, INR 1.3 10/07/17 04:04: Sodium 140, Potassium 4.0, Chloride 109 H, Carbon Dioxide 20.0 L, Anion Gap 11, BUN 30 H, Creatinine 0.79, Estim Creat Clear Calc 53.57, Est GFR (MDRD) Af Amer 94, Est GFR (MDRD) Non-Af 78, BUN/Creatinine Ratio 38.1 H, Glucose 151 H, Calcium 8.0 L 10/07/17 06:49: POC Glucose 155 H Current Medications Alendronate Sodium (Fosamax) 70 mg PO [facility] Amlodipine Besylate (Norvasc) 5 mg PO DAILY [facility] Last Admin: 10/07/17 09:13 Dose: 5 mg Atorvastatin Calcium (Lipitor) 20 mg PO QHS [facility] Atropine Sulfate () 1 mg IV X1 PRN PRN Reason: symptomatic bradycardia Hydroxyzine Pamoate (Vistaril) 25 mg PO BID PRN PRN Reason: ANXIETY Last Admin: 10/07/17 16:01 Dose: 25 mg Lacosamide (Vimpat) 200 mg PO BID [facility] Last Admin: 10/07/17 09:13 Dose: 200 mg Magnesium Hydroxide (Milk Of Magnesia) 30 ml PO DAILY PRN PRN Reason: Constipation [facility] Last Admin: 10/07/17 16:01 Dose: 500 mg Mirtazapine (Remeron) 30 mg PO QHS [facility] Multivit[facility] ([facility]itamin) [facility] Last Admin: 10/07/17 09:13 Dose: 1 tablet Oxycodone HCl (Oxyir) 5 mg PO Q6H PRN PRN PRN Reason: PAIN Sodium Chloride () 5 - 30 ml IV UD PRN PRN Reason: SALINE FLUSH Last Admin: 10/07/17 00:50 Dose: 10 ml Tolterodine Tartrate (Detrol La) 2 mg PO DAILY [facility] Last Admin: 10/07/17 09:13 Dose: 2 mg Assessment/Plan Active and Suspected Problems Bradycardia (Acute) Vaginal bleeding (Acute) 1 Bradycardia; we will continue to hold beta blockers. 2. Vaginal bleeding; this is controlled and she will follow-up with welding machine operator submerged arc as an outpatient. 3. Atrial fibrillation now presenting with bradycardia, off anticoagulation now due to #2 4. DVT prophylaxis; SCDs Code Visit OBSV E&M: 96999 Subsequent observation care L3
--- NOTE | 2017-10-07 17:52 | PN_ITS ---
Patient Problems: Active and Suspected Problems Bradycardia (Acute) Vaginal bleeding (Acute) Subjective: CC: Bradycardia Her HR is in the 40s, blockers are on hold. She denies any dizziness , palpitations or SOB. Vitals/I&O's: Vital Signs Temp Pulse Resp BP Pulse Ox 98.7 F 49 L 16 112/59 L 93 10/07/17 17:46 10/07/17 17:46 10/07/17 17:46 10/07/17 17:46 10/07/17 17:46 Oxygen Delivery Method Room Air Weight: 77.2 kg Body Mass Index (BMI) 32.1 Intake and Output for Last 24 Hours 10/05/17 10/06/17 10/07/17 23:59 23:59 23:59 Intake Total 1018 / 1018 Balance 1018 / 1018 General: Alert, Oriented x3 HEENT: Atraumatic Oral: Moist Mucosa Neck: No JVD Lungs: Clear to auscultation Cardiovascular: Regular rate, Normal S1 Abdomen: Bowel Sounds Present, Soft Musculoskeletal: No Tenderness to Palpation of Joints or Extremities Laboratory Results 10/07/17 00:15: Troponin I 0.03 10/07/17 04:04: Troponin I 0.03 10/07/17 04:04: WBC 6.9, RBC 3.69 L, Hgb 10.0 L, Hct 32.7 L, MCV 88.6, MCH 27.1 , MCHC 30.6 L, RDW 14.7 H, RDW Differential 45.7 H, Plt Count 192, MPV 10.1 10/07/17 04:04: PT 15.6 H, INR 1.3 10/07/17 04:04: Sodium 140, Potassium 4.0, Chloride 109 H, Carbon Dioxide 20.0 L , Anion Gap 11, BUN 30 H, Creatinine 0.79, Estim Creat Clear Calc 53.57, Est GFR (MDRD) Af Amer 94, Est GFR (MDRD) Non-Af 78, BUN/Creatinine Ratio 38.1 H, Glucose 151 H, Calcium 8.0 L 10/07/17 06:49: POC Glucose 155 H Current Medications Alendronate Sodium (Fosamax) 70 mg PO [facility] Amlodipine Besylate (Norvasc) 5 mg PO DAILY [facility] Last Admin: 10/07/17 09:13 Dose: 5 mg Atorvastatin Calcium (Lipitor) 20 mg PO QHS [facility] Atropine Sulfate () 1 mg IV X1 PRN PRN Reason: symptomatic bradycardia Hydroxyzine Pamoate (Vistaril) 25 mg PO BID PRN PRN Reason: ANXIETY Last Admin: 10/07/17 16:01 Dose: 25 mg Lacosamide (Vimpat) 200 mg PO BID [facility] Last Admin: 10/07/17 09:13 Dose: 200 mg Magnesium Hydroxide (Milk Of Magnesia) 30 ml PO DAILY PRN PRN Reason: Constipation [facility] Last Admin: 10/07/17 16:01 Dose: 500 mg Mirtazapine (Remeron) 30 mg PO QHS [facility] Mult[facility]it[facility] ([facility]amin) [facility] Last Admin: 10/07/17 09:13 Dose: 1 tablet Oxycodone HCl (Oxyir) 5 mg PO Q6H PRN PRN PRN Reason: PAIN Sodium Chloride () 5 - 30 ml IV UD PRN PRN Reason: SALINE FLUSH Last Admin: 10/07/17 00:50 Dose: 10 ml Tolterodine Tartrate (Detrol La) 2 mg PO DAILY [facility] Last Admin: 10/07/17 09:13 Dose: 2 mg Assessment/Plan Active and Suspected Problems Bradycardia (Acute) Vaginal bleeding (Acute) 1 Bradycardia; we will continue to hold beta blockers. 2. Vaginal bleeding; this is controlled and she will follow-up with ab initio etl developer as an outpatient. 3. Atrial fibrillation now presenting with bradycardia, off anticoagulation now due to #2 4. DVT prophylaxis; SCDs Code Visit OBSV E&M: 97996 Subsequent observation care L3
--- NOTE | 2017-10-07 20:13 | EKG12_ITS ---
Test Reason : Blood Pressure : / mmHG Vent. Rate : 076 BPM Atrial Rate : 076 BPM P-R Int : 194 ms QRS Dur : 102 ms QT Int : 392 ms P-R-T Axes : 031 026 -73 degrees QTc Int : 441 ms Normal sinus rhythm Low voltage QRS Nonspecific T wave abnormality Abnormal ECG When compared with ECG of 06-OCT-2017 21:00, MANUAL COMPARISON REQUIRED, DATA IS UNCONFIRMED Confirmed by WOOD LAMAR, JAHAIRA ([id number]), general expeditor DALLAS SAMSON ([id number] on 10/12/2017 1:55:46 PM Referred By: Confirmed By:JAHAIRA MUIR MD
[2017-10-07] MEDS: Atorvastatin Calcium 20 MG Tablet PO (21:53)
[2017-10-07] MEDS: Mirtazapine 30 MG Tablet PO (21:53)
[2017-10-08 03:00] VITALS: PULSE 80
[2017-10-08 04:44] VITALS: BP 131/63; PULSE 77; RESP 20; TEMP 37.1; O2SAT 92
[2017-10-08 06:52] VITALS: PULSE 80
--- NOTE | 2017-10-08 08:16 | PCM.PN.CARD ---
Subjectve: Patient seen and evaluated Objective: Vital Signs Temp Pulse Resp BP Pulse Ox 98.7 F 80 20 H 131/63 H 92 10/08/17 04:44 10/08/17 06:52 10/08/17 04:44 10/08/17 04:44 10/08/17 04:44 Oxygen Delivery Method Room Air Weight: 170 lb 3.15 oz Body Mass Index (BMI) 32.1 Intake and Output for Last 24 Hours 10/06/17 10/07/17 10/08/17 23:59 23:59 23:59 Intake Total 1018 / 1018 360 / 360 Balance 1018 / 1018 360 / 360 General: Awake, Alert, Oriented x 3 HEENT: PERRL, EOMI, Sclera Non Icteric Neck: Supple, Good ROM, No Lymph Node Enlargement Lungs: Clear to auscultation Cardiovascular: Regular Rhythm, Normal S1, Normal S2, No Murmurs, No Rubs, No Gallops Vascular: No Carotid Bruits, Normal Femoral Pulses, Normal Radial Pulses, Normal Dorsalis Pedal Pulse, Normal Posterior Tibial Pulses Abdomen: Bowel Sounds Present, Soft, Non Tender, No HSM, No Organomegaly Extremities: No Cyanosis, No Clubbing, No edema Neurological: No Focal Motor or Sensory Deficit Rhythm: S rhythm with a rate of 64 bpm Assessment/Plan 1. Junctional bradycardia. She has a history of previous atrial fibrillation and was put on beta-wiley. She appears to be on a small dose of beta-wiley and this may be related to an early tachybradycardia syndrome. My recommendation at this time is to discontinue her beta-wiley and see how much her heart rate improves. She is currently maintaining sinus rhythm. I doubt that she is back in underlying atrial fibrillation. Recommend holding off on any beta-wiley at this time. 2. Atrial fibrillation He does have a history of atrial fibrillation in the past. But at this time appears to be in sinus rhythm. We will continue to observe her regarding the above. 3.. Lipidemia She does have a history of hyperlipidemia in the past which has been significant. Recommend that she continue on her lipid-lowering medication. Thank you for allowing me to participate in the care of your patient. Please don't hesitate to call if any issues arise
[2017-10-08 10:45] VITALS: BP 145/68; PULSE 84; RESP 16; TEMP 37.3; O2SAT 94
[2017-10-08] MEDS: Empagliflozin 10 MG Tablet PO (10:50)
[2017-10-08] MEDS: Multivitamins,Therapeutic Tablet 1 TABLET PO (10:50)
[2017-10-08] MEDS: Tolterodine Tartrate 2 MG CAP.SA PO (10:50)
[2017-10-08] MEDS: amLODIPine 5 MG Tablet PO (10:50)
[2017-10-08] MEDS: Lacosamide 100 MG Tablet 200 MG PO (10:55)
[2017-10-08 11:05] VITALS: PULSE 86
--- NOTE | 2017-10-08 12:46 | PCM.DC ---
- Discharge Diagnoses Current Active Problems: Current Active and Chronic Problems Bradycardia (Acute) Vaginal bleeding (Acute) Atrial fibrillation (Chronic) Discharge Activity: Return to Normal Activity Allergies/Adverse Reactions: Allergies escitalopram [From Lexapro] Allergy (Verified 10/06/17 20:37) Rash shellfish derived Allergy (Verified 10/06/17 20:37) Unknown perfume Adverse Reaction (Verified 10/06/17 20:37) Unknown pineapple Adverse Reaction (Verified 10/06/17 20:37) Rash quinine Adverse Reaction (Verified 10/06/17 20:37) Unknown strawberry Adverse Reaction (Verified 10/06/17 20:37) Rash Sulfa (Sulfonamide Antibiotics) Adverse Reaction (Verified 10/06/17 20:37) Unknown DUST Adverse Reaction (Uncoded 10/06/17 20:37) Unknown Medications to take at Discharge Alendronate Sodium [Fosamax] 70 mg PO PRECIADO 04/08/17 Fexofenadine HCl [Children's Merry Allergy] 30 mg PO DAILY 04/08/17 Metformin HCl [Glucophage] 500 mg PO BIDCM 04/08/17 Multivitamins,Therapeutic [Multivitamin] 1 tablet PO DAILY 04/08/17 Simvastatin [Zocor] 40 mg PO QHS 04/08/17 Mirtazapine 30 mg PO QHS 05/20/17 Oxybutynin Chloride [Ditropan Xl] 5 mg PO DAILY 05/20/17 Lacosamide [Vimpat] 200 mg PO BID #60 tablet 09/02/17 Oxycodone HCl/Acetaminophen [Percocet 5-325] 1 tablet PO Q6H PRN PRN 09/02/17 Amlodipine [Norvasc] 5 mg PO DAILY 10/06/17 Empagliflozin [Jardiance] 10 mg PO DAILY 10/06/17 Lacosamide [Vimpat] 200 mg PO BID 10/06/17 Hydroxyzine HCl 25 mg PO BID 10/07/17 Primary Care Physician: Hannah Riggs DO [Primary Care Provider] - Proposed Discharge Date: 10/08/17
--- NOTE | 2017-10-08 12:47 | PCM.DC.SUM ---
Discharge Date and Diagnosis Date of Admission: 10/06/17 Date of Discharge: 10/08/17 - Primary Discharge Diagnosis Active and Suspected Problems Bradycardia (Acute) Vaginal bleeding (Acute) - Secondary Discharge Diagnosis Chronic Problems Atrial fibrillation (Chronic) HLD (hyperlipidemia) (Chronic) HTN (hypertension) (Chronic) Diabetes (Chronic) SDH (subdural hematoma) (Chronic) Hospital Course and Treatment Operations: None Summary of Care Provided: he patient is a 67 year old F who has been having vaginal bleeding for a few weeks. She was noted to be bradycardic and sent to the emergency room. In the emergency room patient was noted noted to have a junctional bradycardia. Patient takes beta-blockers for her A. fib as well as anticoagulation therapy with Eliquis. We discontinued her metoprolol and Eliquis. Regarding her bradycardia has resolved. Regarding her vaginal bleed she underwent examination with speculum by gynecology and they did not notice any evidence of significant bleeding She is recommended to follow-up as an outpatient. Discharge Activity: Return to Normal Activity Home Medications: Medications to take at Discharge Alendronate Sodium [Fosamax] 70 mg PO PRECIADO 04/08/17 Fexofenadine HCl [Children's Merry Allergy] 30 mg PO DAILY 04/08/17 Metformin HCl [Glucophage] 500 mg PO BIDCM 04/08/17 Multivitamins,Therapeutic [Multivitamin] 1 tablet PO DAILY 04/08/17 Simvastatin [Zocor] 40 mg PO QHS 04/08/17 Mirtazapine 30 mg PO QHS 05/20/17 Oxybutynin Chloride [Ditropan Xl] 5 mg PO DAILY 05/20/17 Lacosamide [Vimpat] 200 mg PO BID #60 tablet 09/02/17 Oxycodone HCl/Acetaminophen [Percocet 5-325] 1 tablet PO Q6H PRN PRN 09/02/17 Amlodipine [Norvasc] 5 mg PO DAILY 10/06/17 Empagliflozin [Jardiance] 10 mg PO DAILY 10/06/17 Lacosamide [Vimpat] 200 mg PO BID 10/06/17 Hydroxyzine HCl 25 mg PO BID 10/07/17 Primary Care Physician: Hannah Riggs DO [Primary Care Provider] - Meaningful Use Info Meaningful Use Diagnoses (Choose all that apply): None applicable Code Visit Inpatient E&M: 62990 Disch Hosp
== END 2017-10-08 13:21 | disposition home or self-care (01) | DRG 310 ==
LOC: ED 21:43 → PCU 23:51
PROVIDERS: Emergency Provider Emergency Medicine; Family Provider Internal Medicine; PCP Internal Medicine; Visit Provider Internal Medicine
DX: R00.1 Bradycardia, unspecified (principal); E11.9 Type 2 diabetes mellitus without complications; G40.909 Epilepsy, unspecified, not intractable, without status epilepticus; I48.91 Unspecified atrial fibrillation; E78.5 Hyperlipidemia, unspecified; I10 Essential (primary) hypertension; Z79.01 Long term (current) use of anticoagulants; Z79.899 Other long term (current) drug therapy; Z90.710 Acquired absence of both cervix and uterus; Z79.84 Long term (current) use of oral hypoglycemic drugs; N93.9 Abnormal uterine and vaginal bleeding, unspecified
CPT/HCPCS: 36415; 71045; 76856; 80048; 82962; 84484; 85025; 85027; 85610; 93005; 97802; 99285; J7030; A4216

== ENCOUNTER 2017-10-13 12:11 | Emergency (ER) | payer MEDICARE, SELFPAY ==
[2017-10-13 12:13] VITALS: BP 127/64; PULSE 69; RESP 15; TEMP 37.3; O2SAT 95; BMI 31.7
--- NOTE | 2017-10-13 12:40 | ED.VISSUMM ---
- ER Visit Summary Date of Service: 10/13/17 Chief Complaint: Cough, fever and chills History of Present Illness: The patient is a 67 F past medical history significant for hemorrhagic CVA, wtn-nazeuog-xyjmnhfjo diabetes, hypertension, A. fib, seizure disorder. Patient was just started on antibiotics for UTI a day or so ago. Today presented her primary care physician's office Dr. Angeles Riggs ER and called me prior to patient's presentation. Physical Examination: Older female currently no acute distress. Temperature 991. Pulse is 95% room air no signs of hypoxia. She does not look dehydrated. HEENT exam normal. Moist mucous membranes. Neck nontender no lymphadenopathy. Lungs dry cough but no rales, rhonchi. Few scattered wheezes. Heart regular rate and rhythm no murmur rate about 70. Abdomen is soft and nontender. No peritoneal signs. Normal bowel sounds. She is moving all 4 extremities. They are nontender. No edema. Neurologically she is awake and alert moving all 4 extremities. Test Results: His white count 8. H&H 1136 which is her baseline chronic anemia. No bands. Electrolytes are unremarkable with a glucose of 163 and a normal creatinine and anion gap of 12. UA was normal other than urine ketones consistent with mild dehydration. Lactic acid was slightly elevated 2.8. Urine cultures are pending. Chest x-ray shows no acute abnormality mild cardiomegaly read both by myself and the radiologist. Emergency Department Course and Treatment: Patient with fever and chills. Currently being treated for UTI. Will be evaluated for other causes of infection also. Treatment Plan: I spoke to the hospitalist who will be down and evaluate the patient for possible admission and observation versus discharge to home. Disposition: This did come down to evaluate the patient emergency department. He and the patient and family are comfortable with her being discharged home Impression: Acute fever and chills Mildly elevated lactic acid History of prior intracranial bleed. History of CVA. With seizure disorder. History of bmq-omchudr-nygruidgt diabetes. History of A. fib This note was generated with [employer] dictation software. It may contain incorrect words, spelling, and punctuation that were not noted in review of the chart prior to signing ED Disposition - Plan for ED Patient: Chief Complaint: General Illness Referrals: Hannah Riggs DO [Primary Care Provider] -
--- NOTE | 2017-10-13 12:44 | ED.DCSUM_ITS ---
- ER Visit Summary Date of Service: 10/13/17 Chief Complaint: Cough, fever and chills History of Present Illness: The patient is a 67 F past medical history significant for hemorrhagic CVA, lfa-rzfhpym-eabxnvcda diabetes, hypertension, A. fib, seizure disorder. Patient was just started on antibiotics for UTI a day or so ago. Today presented her primary care physician's office Dr. Angeles Riggs ER and called me prior to patient's presentation. Physical Examination: Older female currently no acute distress. Temperature 991. Pulse is 95% room air no signs of hypoxia. She does not look dehydrated. HEENT exam normal. Moist mucous membranes. Neck nontender no lymphadenopathy. Lungs dry cough but no rales, rhonchi. Few scattered wheezes. Heart regular rate and rhythm no murmur rate about 70. Abdomen is soft and nontender. No peritoneal signs. Normal bowel sounds. She is moving all 4 extremities. They are nontender. No edema. Neurologically she is awake and alert moving all 4 extremities. Test Results: His white count 8. H&H 1136 which is her baseline chronic anemia. No bands. Electrolytes are unremarkable with a glucose of 163 and a normal creatinine and anion gap of 12. UA was normal other than urine ketones consistent with mild dehydration. Lactic acid was slightly elevated 2.8. Urine cultures are pending. Chest x-ray shows no acute abnormality mild cardiomegaly read both by myself and the radiologist. Emergency Department Course and Treatment: Patient with fever and chills. Currently being treated for UTI. Will be evaluated for other causes of infection also. Treatment Plan: I spoke to the hospitalist who will be down and evaluate the patient for possible admission and observation versus discharge to home. Disposition: This did come down to evaluate the patient emergency department. He and the patient and family are comfortable with her being discharged home Impression: Acute fever and chills Mildly elevated lactic acid History of prior intracranial bleed. History of CVA. With seizure disorder. History of yci-evjxsqn-nwjsrvpil diabetes. History of A. fib This note was generated with [employer] dictation software. It may contain incorrect words, spelling, and punctuation that were not noted in review of the chart prior to signing ED Disposition - Plan for ED Patient: Chief Complaint: General Illness Referrals: Hannah Riggs DO [Primary Care Provider] -
[2017-10-13] MEDS: 0.9% Normal Saline 1,000 ML 1000 ML IV (13:09)
--- NOTE | 2017-10-13 13:11 | RAD_ITS ---
STUDY: X-RAY CHEST REASON FOR EXAM: Female, 67 years old. Cough and fever. TECHNIQUE: PA and lateral views of the chest. COMPARISON: October 06, 2017. FINDINGS: The lungs are expanded. There is subtle interstitial thickening visible in both lungs. There is no demonstrated pleural abnormality. There is mild cardiac enlargement. Normal mediastinum and jannette. There is prominence of the pulmonary hilar arteries without peripheral pulmonary vascular congestion. There is atherosclerotic calcification of the aortic arch with tortuosity. There is demineralization of the osseous structures. There are degenerative changes of both shoulders. There is multilevel thoracic spondylosis. There is no demonstrated abnormality of the visualized soft tissue structures of the upper abdomen. RAD/Chest PA and Lateral IMPRESSION: Mild cardiomegaly without evidence of acute cardiopulmonary disease.. Electronically Signed: Anna Becerra MD at 13:49 EST , Service support ,
[2017-10-13 13:22] LABS: Absolute Lymphocyte Count 0.27 X10^3/ul (0.83-4.51); Absolute Neutrophil Count 8.3 X10^3/uL (2.0-7.7); Basophil# 0.02 X10^3/uL; Basophil% 0.2 % (0-1); Eosinophil# 0.02 X10^3/uL; Eosinophils% 0.2 % (0-5); Hemoglobin 11.4 g/dl (12.0-15.0); Lymphocyte # 0.27 X10^3/ul (4.0); Mean Corp Hgb Conc 31.7 g/gl (32-36); Mean Corpuscular Hgb 27.4 pg (27.0-32.0); Mean Corpuscular Volume 86.5 fL (81-99); Monocyte% 3.4 % (0-10); Neutrophil # 8.31 X10^3/uL (2.7-7.7); Neutrophil % 93.1 % (47-70); Platelet Count 161 K/mm3 (150-450); RBC Distribution Width CV 14.9 % (11.6-14.6); RBC Distribution Width SD 45.4 fl (35.1-43.9); Red Blood Count 4.16 M/mm3 (4.2-5.4); White Blood Count 8.9 K/mm3 (4.4-11.0)
[2017-10-13 13:23] LABS: Differential Indicated SCAN CRITERIA MET; POSITIVE COUNT NO; POSITIVE DIFFERENTIAL YES; POSITIVE MORPHOLOGY NO
[2017-10-13 13:28] LABS: Anion Gap 12 (5-15); BUN 21 mg/dL (7-18); Calcium,Total 8.6 mg/dL (8.5-10.1); Chloride 105 mmol/L (98-107); Creatinine, Serum 0.87 mg/dL (0.55-1.02); EST Glomerular Filtration Rate 69 mL/min (>60); Est Glom Filt Rate - Afr Amer 83 mL/min (>60); Estimated Creatinine Clearance 48.65 ml/min; Glucose 163 mg/dL (74-106); Potassium 4.5 mmol/L (3.5-5.1); Sodium Level 137 mmol/L (136-145)
[2017-10-13 13:49] LABS: Lactic Acid 2.8 mmol/L (0.4-2.0)
--- NOTE | 2017-10-13 13:50 | ED.RN ---
DR BOOKER NOTIFIED OF LACTIC ACID RESULTS
[2017-10-13 14:18] VITALS: BP 110/56; PULSE 61; RESP 16; O2SAT 96
[2017-10-13 14:56] LABS: Red Blood Cells-Urine 0 SEEN /hpf (0-5)
[2017-10-13 14:57] LABS: Color, Urine Yellow (Yellow); Glucose, Dipstick 1000 mg/dl (Normal); Ketone-Dipstick 5 mg/dl (Negative); Leukocyte Esterase-Dipstick 25 /ul (Negative); Nitrite-Dipstick Negative (Negative); Occult Blood-Urine Negative /ul (Negative); Protein-Dipstick 100 mg/dl (Negative); Urine Bilirubin Dipstick Negative (Negative); Urine Clarity Sl. Cloudy (Clear); Urine Urobilinogen Normal (Normal)
[2017-10-13 15:05] LABS: Bacteria RARE /hpf (None Seen); Mucous, Urine RARE /hpf (<or=2+); Squamous Epithelial Cells - UA 0-5 SEEN /hpf (5-10); Transitional Epithelial - Ur 0-5 SEEN /hpf (0-5); White Blood Cells 0-5 SEEN /hpf (0-5)
[2017-10-13 15:43] VITALS: BMI 31.7
[2017-10-13 16:05] VITALS: BP 110/59; PULSE 60; RESP 20; O2SAT 96
--- NOTE | 2017-10-13 16:08 | PCM.CONS.GEN ---
Problem List (1) Febrile illness, acute Status: Acute Reason for Consult Date of Consultation: 10/13/17 Reason for Consultation: Febrile illness, malaise History of Present Illness: Patient is a 67 years old female who was sent to ED from PCP's office. She was recently treated for UTI with nitrofurantoin. She has diffuse myalgia and low grade temperature past 1.5 day. She denied of any headache, sore throat, nasal congestion, cough, chest pain, abdominal pain, nausea, vomiting, or diarrhea. She has decreased appetite. Work up was done, which were essentially unremarkable with normal WBC at 8.9, normal renal function, and questionable UA. Even before antibiotics, she did not have any urinary symptoms. She was recently discharged from hospital after she had vaginal bleeding and bradycardia with atrial fibrillation, discharged on 10/08/17. She did well for a couple of days, then started to feel ill for past 2 days. Past Medical History Past Medical History (Chronic Problems): Chronic Problems Atrial fibrillation (Chronic) HLD (hyperlipidemia) (Chronic) HTN (hypertension) (Chronic) Diabetes (Chronic) SDH (subdural hematoma) (Chronic) Allergies escitalopram [From Lexapro] Allergy (Verified 10/06/17 20:37) Rash shellfish derived Allergy (Verified 10/06/17 20:37) Unknown perfume Adverse Reaction (Verified 10/06/17 20:37) Unknown pineapple Adverse Reaction (Verified 10/06/17 20:37) Rash quinine Adverse Reaction (Verified 10/06/17 20:37) Unknown strawberry Adverse Reaction (Verified 10/06/17 20:37) Rash Sulfa (Sulfonamide Antibiotics) Adverse Reaction (Verified 10/06/17 20:37) Unknown DUST Adverse Reaction (Uncoded 10/06/17 20:37) Unknown Home Medications: Ambulatory Orders Medication Instructions Recorded Alendronate Sodium [Fosamax] 70 mg PO PRECIADO 04/08/17 Fexofenadine HCl [Children's 30 mg PO DAILY 04/08/17 Merry Allergy] Metformin HCl [Glucophage] 500 mg PO BIDCM 04/08/17 Multivitamins,Therapeutic 1 tablet PO DAILY 04/08/17 [Multivitamin] Simvastatin [Zocor] 40 mg PO QHS 04/08/17 Mirtazapine 30 mg PO QHS 05/20/17 Oxybutynin Chloride [Ditropan Xl] 5 mg PO DAILY 05/20/17 Oxycodone HCl/Acetaminophen 1 tablet PO Q6H PRN PRN 09/02/17 [Percocet 5-325] Amlodipine [Norvasc] 5 mg PO DAILY 10/06/17 Empagliflozin [Jardiance] 10 mg PO DAILY 10/06/17 Hydroxyzine HCl 25 mg PO BID 10/07/17 Acetaminophen [Tylenol Arthritis] 1,300 mg PO Q8H 10/13/17 Lacosamide [Vimpat] 200 mg PO BID 10/13/17 Nitrofurantoin Monohyd/M-Cryst 100 mg PO BID 10/13/17 [Macrobid 100 mg Capsule] Surgical History: no surgical history Psychiatric History: No pertinent psych hx 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 HEENT: Unremarkable. Patient denied of any dizziness, chronic headache, blurred vision, double vision, dry mouth, or nasal congestion. CV/respiratory: There is no exertional shortness of breath, chest pain, palpitation, wheezing, cough, claudication, cold feet, or peripheral edema. GI: Patient denied any abdominal pain, nausea, vomiting, diarrhea, constipation, melena, or hematochezia. : Patient denied any significant urinary symptoms. 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 Psychological: Unremarkable. ?. Endocrine: Unremarkable. Musculoskeletal: Unremarkable. Patient Problems: Active and Suspected Problems Febrile illness, acute (Acute) Objective: In general, patient is a well-nourished and developed adult. HEENT: Head is atraumatic, and normocephalic. Pupils are equal, round, and reactive to light and accommodations. Neck is supple. There is no lymphadenopathy, or thyromegaly. Oral mucosa is pink, and moist. There are no lesions. Heart: Auscultation is normal with regular rhythm and rate. There is no extra heart sounds, or murmurs. S1 and S2 are present. Point of maximal impulse is not displaced. Lungs: Lungs are clear to auscultation bilaterally. There is no wheezing, or crackles. Abdomen: Abdominal wall is non-tender, and non-distended. There is no palpable mass or organomegaly. Normoactive bowel sounds are present. Extremities: There is no cyanosis or clubbing. Peripheral pulses are palpable. There is no edema. Skin: There are no any skin discoloration or lesions. Neurological: CN II - XII are intact. Sensory and motor functions are grossly normal with no obvious deficit. Cerebellar functions are within normal range. Gait was not tested. - Physical Exam Vital Signs Temp Pulse Resp BP Pulse Ox 99.1 F 60 20 H 110/59 L 96 10/13/17 12:13 10/13/17 16:05 10/13/17 16:05 10/13/17 16:05 10/13/17 16:05 Oxygen Delivery Method Room Air Weight: 168 lb Body Mass Index (BMI) 31.7 Finger Stick Blood Glucose 129 Microbiology Past 72 Hours 10/13/17 13:08 Influenza Types A,B Direct FA (NICOLA) - Final Mucosa - Nose Laboratory Tests Past 24 Hrs 10/13/17 10/13/17 10/13/17 12:55 12:55 12:55 WBC 8.9 RBC 4.16 L Hgb 11.4 L Hct 36.0 L MCV 86.5 MCH 27.4 MCHC 31.7 L RDW 14.9 H RDW Differential 45.4 H Plt Count 161 MPV 10.0 Immature Gran % (Auto) 0.100 Neut % (Auto) 93.1 H Lymph % (Auto) 3.0 L [place] % (Auto) 3.4 Eos % (Auto) 0.2 Baso % (Auto) 0.2 Absolute Neuts (auto) 8.3 H Absolute Lymphs (auto) 0.27 L Total Counted Not Reportable Sodium 137 Potassium 4.5 Chloride 105 Carbon Dioxide 20.0 L Anion Gap 12 BUN 21 H Creatinine 0.87 Estim Creat Clear Calc 48.65 Est GFR (MDRD) Af Amer 83 Est GFR (MDRD) Non-Af 69 BUN/Creatinine Ratio 24.0 H Glucose 163 H Lactic Acid 2.8 H Calcium 8.6 Urine Color Urine Clarity Urine pH Ur Specific [place] Urine Protein Urine Glucose (UA) Urine Ketones Urine Occult Blood Urine Nitrite Urine Bilirubin Urine Urobilinogen Ur Leukocyte Esterase Urine RBC Urine WBC Ur Squamous Epith Cells Ur Transition Epith Cell Urine Bacteria Urine Mucus 10/13/17 14:45 WBC RBC Hgb Hct MCV MCH MCHC RDW RDW Differential Plt Count MPV Immature Gran % (Auto) Neut % (Auto) Lymph % (Auto) [place] % (Auto) Eos % (Auto) Baso % (Auto) Absolute Neuts (auto) Absolute Lymphs (auto) Total Counted Sodium Potassium Chloride Carbon Dioxide Anion Gap BUN Creatinine Estim Creat Clear Calc Est GFR (MDRD) Af Amer Est GFR (MDRD) Non-Af BUN/Creatinine Ratio Glucose Lactic Acid Calcium Urine Color Yellow Urine Clarity Sl. Cloudy Urine pH 6.0 Ur Specific [place] 1.010 Urine Protein 100 H Urine Glucose (UA) 1000 H Urine Ketones 5 H Urine Occult Blood Negative Urine Nitrite Negative Urine Bilirubin Negative Urine Urobilinogen Normal Ur Leukocyte Esterase 25 H Urine RBC 0 SEEN Urine WBC 0-5 SEEN Ur Squamous Epith Cells 0-5 SEEN Ur Transition Epith Cell 0-5 SEEN Urine Bacteria RARE Urine Mucus RARE Diagnostic Data Chest X-Ray 10/13/17 13:11 IMPRESSION: Mild cardiomegaly without evidence of acute cardiopulmonary disease.. Electronically Signed: Anna Becerra MD at 13:49 EST , Service support , Assessment/Plan Active and Suspected Problems Febrile illness, acute (Acute) Patient is a 67 years old female who was sent to ED from PCP's office. She was recently treated for UTI with nitrofurantoin. She has diffuse myalgia and low grade temperature past 1.5 day. She denied of any headache, sore throat, nasal congestion, cough, chest pain, abdominal pain, nausea, vomiting, or diarrhea. She has decreased appetite. Work up was done, which were essentially unremarkable with normal WBC at 8.9, normal renal function, and questionable UA. Even before antibiotics, she did not have any urinary symptoms. #1 Febrile illness. The findings and history are more consistent with viral syndrome. At this time, she has no significant focal symptoms that needs to be addressed. Observation vs. conservative treatment at home offered. She and her husbands are agreeable with conservative management at home. Continue to keep up with oral fluid intake, and take Tylenol prn for low grade temperature / fever. Patient should return to ED if she develops any other symptoms or condition worsen. #2 Elevated lactic acid. LC was 2.8, however, her vitals are normal, and WBC are normal. There is no signs of overt infection. CXR showed some degree of cardiomegaly, no IVF resuscitation was indicated. Discussed with Dr. Marley. OK to discharge patient to home and follow up as outpatient. Code Visit Inpatient E&M: 40581 Init Hosp L2
--- NOTE | 2017-10-13 16:19 | CON.PCM_ITS ---
Problem List (1) Febrile illness, acute Status: Acute Reason for Consult Date of Consultation: 10/13/17 Reason for Consultation: Febrile illness, malaise History of Present Illness: Patient is a 67 years old female who was sent to ED from PCP's office. She was recently treated for UTI with nitrofurantoin. She has diffuse myalgia and low grade temperature past 1.5 day. She denied of any headache, sore throat , nasal congestion, cough, chest pain, abdominal pain, nausea, vomiting, or diarrhea. She has decreased appetite. Work up was done, which were essentially unremarkable with normal WBC at 8.9, normal renal function, and questionable UA. Even before antibiotics, she did not have any urinary symptoms. She was recently discharged from hospital after she had vaginal bleeding and bradycardia with atrial fibrillation, discharged on 10/08/17. She did well for a couple of days, then started to feel ill for past 2 days. Past Medical History Past Medical History (Chronic Problems): Chronic Problems Atrial fibrillation (Chronic) HLD (hyperlipidemia) (Chronic) HTN (hypertension) (Chronic) Diabetes (Chronic) SDH (subdural hematoma) (Chronic) Allergies escitalopram [From Lexapro] Allergy (Verified 10/06/17 20:37) Rash shellfish derived Allergy (Verified 10/06/17 20:37) Unknown perfume Adverse Reaction (Verified 10/06/17 20:37) Unknown pineapple Adverse Reaction (Verified 10/06/17 20:37) Rash quinine Adverse Reaction (Verified 10/06/17 20:37) Unknown strawberry Adverse Reaction (Verified 10/06/17 20:37) Rash Sulfa (Sulfonamide Antibiotics) Adverse Reaction (Verified 10/06/17 20:37) Unknown DUST Adverse Reaction (Uncoded 10/06/17 20:37) Unknown Home Medications: Ambulatory Orders Medication Instructions Recorded Alendronate Sodium [Fosamax] 70 mg PO PRECIADO 04/08/17 Fexofenadine HCl [Children's 30 mg PO DAILY 04/08/17 Merry Allergy] Metformin HCl [Glucophage] 500 mg PO BIDCM 04/08/17 Multivitamins,Therapeutic 1 tablet PO DAILY 04/08/17 [Multivitamin] Simvastatin [Zocor] 40 mg PO QHS 04/08/17 Mirtazapine 30 mg PO QHS 05/20/17 Oxybutynin Chloride [Ditropan Xl] 5 mg PO DAILY 05/20/17 Oxycodone HCl/Acetaminophen 1 tablet PO Q6H PRN PRN 09/02/17 [Percocet 5-325] Amlodipine [Norvasc] 5 mg PO DAILY 10/06/17 Empagliflozin [Jardiance] 10 mg PO DAILY 10/06/17 Hydroxyzine HCl 25 mg PO BID 10/07/17 Acetaminophen [Tylenol Arthritis] 1,300 mg PO Q8H 10/13/17 Lacosamide [Vimpat] 200 mg PO BID 10/13/17 Nitrofurantoin Monohyd/M-Cryst 100 mg PO BID 10/13/17 [Macrobid 100 mg Capsule] Surgical History: no surgical history Psychiatric History: No pertinent psych hx TITLE ATTORNEY History: No pertinent TITLE ATTORNEY history Smoking Status: Never smoker - *Family History Maternal History Items: No pertinent history Sibling History Items: Heart Disease Review of Systems Comment: ROS: In general: See HPI. HEENT: Unremarkable. Patient denied of any dizziness, chronic headache, blurred vision, double vision, dry mouth, or nasal congestion. CV/respiratory: There is no exertional shortness of breath, chest pain, palpitation, wheezing, cough, claudication, cold feet, or peripheral edema. GI: Patient denied any abdominal pain, nausea, vomiting, diarrhea, constipation, melena, or hematochezia. : Patient denied any significant urinary symptoms. 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 Psychological: Unremarkable. ?. Endocrine: Unremarkable. Musculoskeletal: Unremarkable. Patient Problems: Active and Suspected Problems Febrile illness, acute (Acute) Objective: In general, patient is a well-nourished and developed adult. HEENT: Head is atraumatic, and normocephalic. Pupils are equal, round, and reactive to light and accommodations. Neck is supple. There is no lymphadenopathy, or thyromegaly. Oral mucosa is pink, and moist. There are no lesions. Heart: Auscultation is normal with regular rhythm and rate. There is no extra heart sounds, or murmurs. S1 and S2 are present. Point of maximal impulse is not displaced. Lungs: Lungs are clear to auscultation bilaterally. There is no wheezing, or crackles. Abdomen: Abdominal wall is non-tender, and non-distended. There is no palpable mass or organomegaly. Normoactive bowel sounds are present. Extremities: There is no cyanosis or clubbing. Peripheral pulses are palpable. There is no edema. Skin: There are no any skin discoloration or lesions. Neurological: CN II - XII are intact. Sensory and motor functions are grossly normal with no obvious deficit. Cerebellar functions are within normal range. Gait was not tested. - Physical Exam Vital Signs Temp Pulse Resp BP Pulse Ox 99.1 F 60 20 H 110/59 L 96 10/13/17 12:13 10/13/17 16:05 10/13/17 16:05 10/13/17 16:05 10/13/17 16:05 Oxygen Delivery Method Room Air Weight: 168 lb Body Mass Index (BMI) 31.7 Finger Stick Blood Glucose 129 Microbiology Past 72 Hours 10/13/17 13:08 Influenza Types A,B Direct FA (NICOLA) - Final Mucosa - Nose Laboratory Tests Past 24 Hrs 10/13/17 10/13/17 10/13/17 12:55 12:55 12:55 WBC 8.9 RBC 4.16 L Hgb 11.4 L Hct 36.0 L MCV 86.5 MCH 27.4 MCHC 31.7 L RDW 14.9 H RDW Differential 45.4 H Plt Count 161 MPV 10.0 Immature Gran % (Auto) 0.100 Neut % (Auto) 93.1 H Lymph % (Auto) 3.0 L [place] % (Auto) 3.4 Eos % (Auto) 0.2 Baso % (Auto) 0.2 Absolute Neuts (auto) 8.3 H Absolute Lymphs (auto) 0.27 L Total Counted Not Reportable Sodium 137 Potassium 4.5 Chloride 105 Carbon Dioxide 20.0 L Anion Gap 12 BUN 21 H Creatinine 0.87 Estim Creat Clear Calc 48.65 Est GFR (MDRD) Af Amer 83 Est GFR (MDRD) Non-Af 69 BUN/Creatinine Ratio 24.0 H Glucose 163 H Lactic Acid 2.8 H Calcium 8.6 Urine Color Urine Clarity Urine pH Ur Specific [place] Urine Protein Urine Glucose (UA) Urine Ketones Urine Occult Blood Urine Nitrite Urine Bilirubin Urine Urobilinogen Ur Leukocyte Esterase Urine RBC Urine WBC Ur Squamous Epith Cells Ur Transition Epith Cell Urine Bacteria Urine Mucus 10/13/17 14:45 WBC RBC Hgb Hct MCV MCH MCHC RDW RDW Differential Plt Count MPV Immature Gran % (Auto) Neut % (Auto) Lymph % (Auto) [place] % (Auto) Eos % (Auto) Baso % (Auto) Absolute Neuts (auto) Absolute Lymphs (auto) Total Counted Sodium Potassium Chloride Carbon Dioxide Anion Gap BUN Creatinine Estim Creat Clear Calc Est GFR (MDRD) Af Amer Est GFR (MDRD) Non-Af BUN/Creatinine Ratio Glucose Lactic Acid Calcium Urine Color Yellow Urine Clarity Sl. Cloudy Urine pH 6.0 Ur Specific [place] 1.010 Urine Protein 100 H Urine Glucose (UA) 1000 H Urine Ketones 5 H Urine Occult Blood Negative Urine Nitrite Negative Urine Bilirubin Negative Urine Urobilinogen Normal Ur Leukocyte Esterase 25 H Urine RBC 0 SEEN Urine WBC 0-5 SEEN Ur Squamous Epith Cells 0-5 SEEN Ur Transition Epith Cell 0-5 SEEN Urine Bacteria RARE Urine Mucus RARE Diagnostic Data Chest X-Ray 10/13/17 13:11 IMPRESSION: Mild cardiomegaly without evidence of acute cardiopulmonary disease.. Electronically Signed: Anna Becerra MD at 13:49 EST , Service support , Assessment/Plan Active and Suspected Problems Febrile illness, acute (Acute) Patient is a 67 years old female who was sent to ED from PCP's office. She was recently treated for UTI with nitrofurantoin. She has diffuse myalgia and low grade temperature past 1.5 day. She denied of any headache, sore throat , nasal congestion, cough, chest pain, abdominal pain, nausea, vomiting, or diarrhea. She has decreased appetite. Work up was done, which were essentially unremarkable with normal WBC at 8.9, normal renal function, and questionable UA. Even before antibiotics, she did not have any urinary symptoms. #1 Febrile illness. The findings and history are more consistent with viral syndrome. At this time , she has no significant focal symptoms that needs to be addressed. Observation vs. conservative treatment at home offered. She and her husbands are agreeable with conservative management at home. Continue to keep up with oral fluid intake, and take Tylenol prn for low grade temperature / fever. Patient should return to ED if she develops any other symptoms or condition worsen. #2 Elevated lactic acid. LC was 2.8, however, her vitals are normal, and WBC are normal. There is no signs of overt infection. CXR showed some degree of cardiomegaly, no IVF resuscitation was indicated. Discussed with Dr. Marley. OK to discharge patient to home and follow up as outpatient. Code Visit Inpatient E&M: 18943 Init Hosp L2
--- NOTE | 2017-10-13 16:24 | ED.DEP ---
ED Disposition - Plan for ED Patient: Disposition: Home or Assisted Living Chief Complaint: General Illness Instructions: ED Fever Control Referrals: Hannah Riggs DO [Primary Care Provider] - As soon as possible Additional Instructions: Continue your current antibiotic for the urinary tract infection. Plenty of fluids and rest. Tylenol for the fever. Return to the ER if you are feeling worse.
[2017-10-13 16:38] VITALS: BP 135/58; PULSE 61; RESP 22; O2SAT 96
[2017-10-13 17:08] LABS: Reflex Lactate? Y
[2017-10-14 11:59] LABS: Albumin, Serum 3.7 g/dL (3.2-5.0); Phosphorus 2.2 mg/dL (2.5-4.9)
== END 2017-10-13 16:39 | disposition home or self-care (01) ==
PROVIDERS: Emergency Provider Emergency Medicine; Family Provider Internal Medicine; PCP Internal Medicine
DX: R50.9 Fever, unspecified (principal); R74.0 Nonspecific elevation of levels of transaminase and lactic acid dehydrogenase [LDH]; B34.9 Viral infection, unspecified; R05 Cough; Z86.73 Personal history of transient ischemic attack (TIA), and cerebral infarction without residual deficits; Z86.79 Personal history of other diseases of the circulatory system; G40.909 Epilepsy, unspecified, not intractable, without status epilepticus; E11.9 Type 2 diabetes mellitus without complications; I48.91 Unspecified atrial fibrillation; N39.0 Urinary tract infection, site not specified; D53.9 Nutritional anemia, unspecified; I51.7 Cardiomegaly; I10 Essential (primary) hypertension; E78.00 Pure hypercholesterolemia, unspecified; Z90.710 Acquired absence of both cervix and uterus; Z79.84 Long term (current) use of oral hypoglycemic drugs; Z79.899 Other long term (current) drug therapy
CPT/HCPCS: 36415; 71046; 80048; 81001; 82040; 83605; 84100; 85025; 87040; 87804; 96360; 96361; 99284; A4216

== ENCOUNTER → 2017-10-21 13:39 | Outpatient (CLI) | payer MEDICARE, SELFPAY | PROVIDERS: Family Provider Internal Medicine; PCP Internal Medicine; Visit Provider Internal Medicine Nephrology | DX: E11.9 Type 2 diabetes mellitus without complications (principal); R80.9 Proteinuria, unspecified ==

== ENCOUNTER → 2017-10-21 13:51 | Outpatient (CLI) | payer MEDICARE, SELFPAY ==
[2017-10-21 17:36] LABS: Microalbumin:Creatinine Ratio 331.9 mg/g CRE (<30 mg/g CRE)
== END ==
PROVIDERS: Family Provider Internal Medicine; PCP Internal Medicine; Visit Provider Internal Medicine Nephrology
DX: E11.9 Type 2 diabetes mellitus without complications (principal)
CPT/HCPCS: 82043; 82570

== ENCOUNTER → 2017-11-03 12:39 | Outpatient (CLI) | payer MEDICARE, SELFPAY | PROVIDERS: Family Provider Internal Medicine; PCP Internal Medicine; Visit Provider Psychiatry & Neurology Neurology | DX: F41.0 Panic disorder [episodic paroxysmal anxiety] (principal); F41.9 Anxiety disorder, unspecified; G40.019 Localization-related (focal) (partial) idiopathic epilepsy and epileptic syndromes with seizures of localized onset, intractable, without status epilepticus; I48.91 Unspecified atrial fibrillation; R56.9 Unspecified convulsions | CPT/HCPCS: 36415 ==

== ENCOUNTER → 2017-11-05 10:44 | Outpatient (CLI) | payer MEDICARE, SELFPAY ==
[2017-11-05 10:50] LABS: Mucous, Urine 0 SEEN /hpf (<or=2+); Red Blood Cells-Urine 0 SEEN /hpf (0-5)
[2017-11-05 11:44] LABS: Color, Urine Yellow (Yellow); Glucose, Dipstick 250 mg/dl (Normal); Hematocrit 41.8 % (37-47); Hemoglobin 13.2 g/dl (12.0-15.0); Ketone-Dipstick Negative (Negative); Leukocyte Esterase-Dipstick 100 /ul (Negative); Mean Corp Hgb Conc 31.6 g/gl (32-36); Mean Corpuscular Hgb 26.9 pg (27.0-32.0); Mean Corpuscular Volume 85.3 fL (81-99); Mean Platelet Vol. 10.3 fl (6.2-12.0); Nitrite-Dipstick Negative (Negative); Occult Blood-Urine 10 /ul (Negative); Platelet Count 205 K/mm3 (150-450); Protein-Dipstick 100 mg/dl (Negative); RBC Distribution Width CV 14.9 % (11.6-14.6); RBC Distribution Width SD 45.7 fl (35.1-43.9); Scan Indicated on CBC? Y/N NO; Specific Gravity, Urine 1.015 (1.002-1.030); Urine Bilirubin Dipstick Negative (Negative); Urine Clarity Sl. Cloudy (Clear); Urine Urobilinogen Normal (Normal)
[2017-11-05 11:52] LABS: Prothrombin Time (Protime)PT. 13.3 SECONDS (11.7-14.9)
[2017-11-05 11:53] LABS: Bacteria RARE /hpf (None Seen); Squamous Epithelial Cells - UA 5-10 SEEN /hpf (5-10); White Blood Cells 10-25 SEEN /hpf (0-5)
[2017-11-05 12:11] LABS: Anion Gap 6 (5-15); BUN 22 mg/dL (7-18); BUN/Creat Ratio 29.1 RATIO (10-20); Calcium,Total 8.7 mg/dL (8.5-10.1); Chloride 104 mmol/L (98-107); Creatinine, Serum 0.76 mg/dL (0.55-1.02); EST Glomerular Filtration Rate 82 mL/min (>60); Est Glom Filt Rate - Afr Amer 99 mL/min (>60); Glucose 196 mg/dL (74-106); Potassium 4.7 mmol/L (3.5-5.1); Sodium Level 139 mmol/L (136-145)
== END ==
PROVIDERS: Family Provider Internal Medicine; PCP Internal Medicine; Visit Provider Internal Medicine Cardiovascular Disease
DX: I49.8 Other specified cardiac arrhythmias (principal); I49.5 Sick sinus syndrome; R00.1 Bradycardia, unspecified
CPT/HCPCS: 36415; 80048; 81001; 85027; 85610

== ENCOUNTER 2017-11-15 10:52 | Day surgery (SDC) | payer MEDICARE, SELFPAY ==
[2017-11-12 09:46] VITALS: BMI 32.5
[2017-11-15] VITALS (12 sets, daily range): BP systolic 90–120; BP diastolic 54–76; PULSE 64–78; RESP 16–18; TEMP 36.5–36.9; O2SAT 65–95; BMI 32.5; BMI 32.6
--- NOTE | 2017-11-15 15:28 | CL.IE_ITS ---
Patient: HEMRINIA CARDONA Study Date: 11/15/2017 Performing: Mehul Pollock MD : [id number] Age: 67 Gender: female PROCEDURES PERFORMED [id number] PACER INSERT+DUAL LEADS INDICATIONS Sinoatrial node dysfunction/Sick sinus syndrome PROCEDURE DETAILS The patient was brought to the Catheterization Lab in the postabsorptive nonsedated state. Informed consent was obtained prior to the procedure. Local anesthetic was given subcutaneously to the left giordano bclavian region with Lidocaine 2%. Access was achieved and a guidewire was advanced into the left sub clavian vein. Incision was made to the left subclavicular area. A peel-away sheath was inserted into the left subclavian vein. PPM ventricular lead was inserted / positioned to right ventricular. PPM ve ntricular lead testing performed. PPM ventricular lead testing performed. A peel-away sheath was inse rted into the left subclavian vein. PPM atrial lead was inserted / positioned to the right atrial urban endage. PPM atrial lead testing performed. The Ventricular PM lead sutured in place with 3-0 Silk. Th e Atrial lead sutured in place with 3-0 Silk. Device pocket was irrigated with antibiotic. Subcutaneo us closure was completed with 3-0 Vicryl. Skin closure was completed with 4-0 Vicryl. The patient to lerated the procedure well. Estimated Blood Loss: 50 ml's IMPLANTED / EX-PLANTED DEVICES IMPLANTED DEVICE(S): PPM Ventricular lead - Sales Account Specialist: Speedment, Model # INGEVITY MRI , Serial # [id number] PPM Atrial lead - Sales Account Specialist: Speedment, Model # INGEVITY MRI , Serial # [id number] PPM Generator - Sales Account Specialist: Speedment, Model # ESSENTIO MRI DR , Serial # [id number] DEVICE PARAMETERS ATRIAL LEAD PARAMETERS: P wave- 5.6 (mV) impedence- 683 (OHMS) VENTRICULAR LEAD PARAMETERS: R wave- 22.2 (mV) Current- 0.6 (mA) threshold- 0.9 (V) impedence- 1085 (OHMS) DEVICE PARAMETERS: Mode- DDD Lower rate- 60 Upper rate- 120 CONCLUSIONS / RECOMMENDATIONS Device Conclusions: Successful implantation of a dual chamber pacemaker Device Recommendations: Follow up with Primary Care Physician PROCEDURE MEDICATIONS Versed 1 mg IV Fentanyl 25 mcg IV Fentanyl 25 mcg IV Versed 1 mg IV Fentanyl 25 mcg IV Oxygen: 2 L/min via nasal cannula Antibiotic given in appropriate timeframe. Ancef 2 Gm IV @ 11/15/2017 12:05:48 IV Bolus: .9 NaCl 1500 ml total x2 bags WO 11/15/2017 14:43:06 Signed By Mehul Pollock MD On 11/15/2017 15:28:07 Mehul Pollock MD
[2017-11-15 15:36] LABS: Bedside Glucose 144 mg/dL (70-110)
[2017-11-15] MEDS: 0.9% Normal Saline 1,000 ML 100 ML IV (16:03)
--- NOTE | 2017-11-15 17:15 | NURSING ---
applied 5 pound sand bag at this time, will remain on until Dr. Pollock instructs otherwise. Pt educated.
[2017-11-15] MEDS: Cefazolin 2 GM in 0.9% Normal Saline 100 ML IV (21:25)
[2017-11-15] MEDS: Ciprofloxacin 250 MG Tablet PO (21:26)
[2017-11-15] MEDS: hydrOXYzine PAM 25 MG Capsule PO (23:17)
[2017-11-15] MEDS: Mirtazapine 30 MG Tablet PO (23:17)
[2017-11-15] MEDS: Lacosamide 100 MG Tablet 200 MG PO (23:18)
[2017-11-16 01:28] VITALS: BP 135/76; PULSE 73; RESP 14; TEMP 36.6; O2SAT 94
[2017-11-16] MEDS: 0.9% Normal Saline 1,000 ML 100 ML IV (02:21)
[2017-11-16 03:00] VITALS: PULSE 74
[2017-11-16 05:40] VITALS: BP 132/77; PULSE 72; RESP 14; TEMP 36.9; O2SAT 95
--- NOTE | 2017-11-16 05:46 | NURSING ---
This RN reviewed charting completed by clinical nursing intern Anthony Gordillo and agrees with charting.
--- NOTE | 2017-11-16 05:55 | RAD_ITS ---
STUDY: X-RAY CHEST REASON FOR EXAM: Female, 67 years old. Status post pacemaker insertion, assessment for pneumothorax. TECHNIQUE: AP inspiratory and expiratory upright and lateral views of the chest. COMPARISON: 10/13/2017 FINDINGS: There is a left subclavian approached multilead permanent pacemaker with tips in the right right atrium and right ventricle. There is no demonstrated pneumothorax. There is low inspiratory level. There are atelectatic changes in the basis There is no demonstrated pleural abnormality. There is stable mild cardiac enlargement. Normal mediastinum and jannette. Normal visualized pulmonary arteries. Normal visualized aortic arch and descending thoracic aorta. There are diffuse degenerative changes of the visualized thoracic spine. Normal visualized ribs, clavicles, and shoulders. There is no demonstrated abnormality of the visualized soft tissue structures of the upper abdomen. RAD/Chest PA and Lateral IMPRESSION: Pacemaker appears in good position, no pneumothorax. Stable cardiac enlargement, degenerative changes. Low lung volumes with bibasilar atelectasis suspected. Electronically Signed: Mallorie Bolaños MD at 7:34 EDT , Service support ,
--- NOTE | 2017-11-16 05:55 | RAD_ITS ---
STUDY: X-RAY CHEST REASON FOR EXAM: Female, 67 years old. S/P PACEMAKER INSERTION TO EXCLUDE PNEUMOTHORAX TECHNIQUE: Single AP portable view of the chest. COMPARISON: None. FINDINGS: Pacemaker is identified The lungs are underexpanded. Subsegmental atelectases are noted in the right and left lung bases. There is no demonstrated pleural abnormality. Normal size heart. Normal mediastinum and jannette. Normal visualized pulmonary arteries. Normal visualized aortic arch and descending thoracic aorta. Normal visualized thoracic spine. There is degenerative osteoarthritis of the bilateral shoulders. There is no demonstrated abnormality of the visualized soft tissue structures of the upper abdomen. RAD/Chest 1 View IMPRESSION: There is no evidence of pneumothorax. Electronically Signed: Martha Delagdo MD at 7:15 EDT Tel , Service support ,
[2017-11-16 07:40] VITALS: PULSE 65
[2017-11-16 08:45] VITALS: BP 142/77; PULSE 67; RESP 16; TEMP 36.6; O2SAT 96
--- NOTE | 2017-11-16 08:46 | PCM.PN.CARD ---
Subjectve: Patient seen and evaluated and appears to be doing well. No issues overnight. Objective: Vital Signs Temp Pulse Resp BP Pulse Ox 98.5 F 65 14 132/77 H 95 11/16/17 05:40 11/16/17 07:40 11/16/17 05:40 11/16/17 05:40 11/16/17 05:40 Oxygen Delivery Method Room Air Weight: 172 lb 6.424 oz Body Mass Index (BMI) 32.5 Finger Stick Blood Glucose 129 Intake and Output for Last 24 Hours 11/14/17 11/15/17 11/16/17 23:59 23:59 23:59 Intake Total 798 / 798 1357 / 1357 Output Total 700 / 700 Balance 798 / 798 657 / 657 General: Awake, Alert, Oriented x 3 HEENT: PERRL, EOMI, Sclera Non Icteric Neck: Supple, Good ROM, No Lymph Node Enlargement Lungs: Clear to auscultation Cardiovascular: Regular Rhythm, Normal S1, Normal S2, No Murmurs, No Rubs, No Gallops Vascular: No Carotid Bruits, Normal Femoral Pulses, Normal Radial Pulses, Normal Dorsalis Pedal Pulse, Normal Posterior Tibial Pulses Abdomen: Bowel Sounds Present, Soft, Non Tender, No HSM, No Organomegaly Extremities: No Cyanosis, No Clubbing, No edema Neurological: No Focal Motor or Sensory Deficit Rhythm: EKG: ECHO: Stress Test: Cardiac Cath: PCI: CT Surgery: Holter monitor: EPS: PPM: CXR: No evidence of pneumothorax. Chest CT Scan: Medical Necessity - Tobacco Use Smoking Status: Never smoker Assessment/Plan 1. Status post permanent pacemaker placement for sick sinus syndrome. Pacemaker was interrogated this morning and adequate thresholds were noted and lead impedances. Chest x-ray also demonstrated no evidence of pneumothorax. The patient will be discharged on her current medications and followed up as an outpatient. Instructions were well explained to the patient.
--- NOTE | 2017-11-16 08:48 | PCM.DC.PACE ---
Discharge Diet: No Restrictions Discharge Activity: May Not Drive Call your doctor if your incision/area has: Continuous Slow Oozing, Sudden Increased Bleeding, Increased Pain/ Swelling, Increased Redness, Foul Smelling Discharge, Swelling at the incision site Call your doctor if you observe: Fever of 101 or Higher, Shortness of breath, Dizziness, Fainting spells, Swelling in the ankles, Chest pain, Prolonged hiccoughing, Increased palpitations (irregular heartbeat) Change Dressing in (Days):: 3 Remove Dressing in (days):: 3 Cleanse incision/area with: Do not get Incision Wet, Keep Dressing Clean & Dry Additional Dressing/Incision Instructions:: When dressing is removed, wash and dry incision. Keep covered with a light bandage if it is rubbing against your clothing. Do not cover the incision with an airtight bandage. Change the bandage daily. Do not remove steri strips. The strips will fall off on their own. Additional Instructions: Signs and Symptoms to Report to Your Doctor at Once - call your doctor's office or Doctor's Registry ([phone]) Call 911 or go to the nearest Emergency Department if you feel you need urgent care. *Infection (fever, increased redness or swelling at the incision site, drainage from the incision increased pain at the pacemaker site) *Shortness of breath *Dizziness *Fainting spells *Swelling in the ankles *Chest pain *Prolonged hiccoughing *Increased palpitaitons (irregular heartbeat) Medications: Take your pain medication as directed. Refer to your discharge instruction sheet for a list of medications you are to take. Allergies/Adverse Reactions: Allergies escitalopram [From Lexapro] Allergy (Verified 10/06/17 20:37) Rash shellfish derived Allergy (Verified 10/06/17 20:37) Unknown hydroxychloroquine [From Plaquenil] Adverse Reaction (Severe, Verified 10/27/17 07:41) Unknown perfume Adverse Reaction (Verified 10/06/17 20:37) Unknown pineapple Adverse Reaction (Verified 10/06/17 20:37) Rash quinine Adverse Reaction (Verified 10/06/17 20:37) Unknown strawberry Adverse Reaction (Verified 10/06/17 20:37) Rash Sulfa (Sulfonamide Antibiotics) Adverse Reaction (Verified 10/06/17 20:37) Unknown DUST Adverse Reaction (Uncoded 10/06/17 20:37) Unknown Medications to take at Discharge Alendronate Sodium [Fosamax] 70 mg PO PRECIADO 04/08/17 Fexofenadine HCl [Children's Merry Allergy] 30 mg PO DAILY 04/08/17 Metformin HCl [Glucophage] 500 mg PO BIDCM 04/08/17 Multivitamins,Therapeutic [Multivitamin] 1 tab PO DAILY 04/08/17 Simvastatin [Zocor] 40 mg PO QHS 04/08/17 Mirtazapine 30 mg PO QHS 05/20/17 Oxybutynin Chloride [Ditropan Xl] 5 mg PO DAILY 05/20/17 Amlodipine [Norvasc] 5 mg PO DAILY 10/06/17 Empagliflozin [Jardiance] 10 mg PO DAILY 10/06/17 Hydroxyzine HCl 25 mg PO BID 10/07/17 Lacosamide [Vimpat] 200 mg PO BID 10/13/17 ranitidine 150 mg tablet 150 mg PO BID tab 10/27/17 ciprofloxacin 250 mg tablet 250 mg PO BID #6 tab 11/08/17 Primary Care Physician: Hannah Riggs DO [Primary Care Provider] - When: [facility]acer clinic 11/22/17 at 10 am Proposed Discharge Date: 11/16/17
--- NOTE | 2017-11-16 08:57 | NURSING ---
PATIENT AMBULATED IN HALLWAY TOLERATED WELL, NO SOB DIZZINESS OR PAIN.
[2017-11-16] MEDS: Acetaminophen 325 MG Tablet 650 MG PO (09:34)
[2017-11-16] MEDS: Multivitamins,Therapeutic Tablet 1 TABLET PO (09:34)
[2017-11-16] MEDS: Lacosamide 100 MG Tablet 200 MG PO (09:34)
--- NOTE | 2017-11-16 10:39 | PCM.PACRNU ---
Pacer Nurse Hospital Visit Notes: Dual Chamber Pacemaker Evaluation: 1st day post implant check completed at bedside PCU #[id number]. Interrogation shows 1 MS episode, <1hr and no VT episodes since implant 11/15/17. Left pectoral pocket/incision DSD intact w/o drainage noted, no hematoma noted, mild ecchymosis. Presenting rhythm shows NSR @ 64 bpm. GENETICS TEACHER=2%., AP=2%. Battery longevity approx >8 yrs. Lead impedances, sensing and pace/sense thresholds stable. Pwaves 1.8mV R waves 13.8mV. Atrial impedance 577 Ohms Vent. impedance 875 Ohms. Atrial threshold 1V/0.4ms Vent. threshold auto 0.5V/0.4ms. No parameter changes made. Counters cleared. Normal device function. Wound care, left arm restrictions, and f/u appt for wound check given to pt and spouse. Dr. Pollock notified of above. John Trinidad RN - Pacer Check Procedure Procedures: 69506 PM Eval Dual
== END 2017-11-16 08:49 | disposition home or self-care (01) ==
LOC: CLSP 10:53 → PCU 15:36
PROVIDERS: Family Provider Internal Medicine; PCP Internal Medicine; Visit Provider Internal Medicine Cardiovascular Disease
DX: I49.5 Sick sinus syndrome (principal); I48.0 Paroxysmal atrial fibrillation; E78.5 Hyperlipidemia, unspecified; I10 Essential (primary) hypertension; Z90.710 Acquired absence of both cervix and uterus; Z79.84 Long term (current) use of oral hypoglycemic drugs; Z79.899 Other long term (current) drug therapy
CPT/HCPCS: 33208; 71045; 71046; 82962; 99152; 99153; J3010; J7030; J7040; J7050; C1894

== ENCOUNTER 2017-11-17 18:07 | Emergency (ER) | payer MEDICARE, SELFPAY ==
[2017-11-17 18:07] VITALS: BP 173/92; PULSE 60; RESP 17; TEMP 36.6; O2SAT 96; BMI 32.2
--- NOTE | 2017-11-17 18:36 | ED.DCSUM_ITS ---
- ER Visit Summary Date of Service: 11/17/17 Chief Complaint: [Wound check with concern for bleeding] History of Present Illness: The patient is a 67 F [presents to the emergency department with her complaining of drainage from her wound where she had her pacemaker placed 2 days ago. Patient had the pacemaker placed by Dr. Pollock and apparently had some bleeding complications intraoperatively. This afternoon the noticed small amount of serous drainage from the upper outer corner of the dressing. Patient was to have the dressing removed tomorrow at home and the was concerned that if he got into bleeding complications he did not want to be at home when this dressing was taken off. Patient denies any significant pain to the site.] Physical Examination: [HEENT-PERRLA, EOMI. Cranial nerves II through XII grossly intact. TMs clear. Mucous membranes moist. No adenopathy. Cardiovascular-regular rate and rhythm without murmur or ectopy Lungs-clear to auscultation, chest wall stable without crepitus or subcu emphysema. Left chest-there is a dressing in place with some mild elevation of the dressing the left outer quadrant. There is small amount of avulsed skin in this area has some subtle weeping noted. No evidence for bleeding otherwise noted. Abdomen-normoactive bowel sounds, soft, nontender, no rebound or rigidity, no peritoneal signs. Extremities-intact ?4, normal range of motion, normal pulses, atraumatic] Test Results: [None indicated] Emergency Department Course and Treatment: [Patient's dressing was removed and there was no bleeding noted at this time. Patient was reassured that I felt the incision looked well.] Treatment Plan: I will discuss case with Dr. Pollock or the physician covering for Dr. Pollock regarding the dressing change.] Disposition: [Discharged to home in stable condition.] Impression: [Wound check-no bleeding and no signs of infection] This note was generated with [employer] dictation software. It may contain incorrect words, spelling, and punctuation that were not noted in review of the chart prior to signing ED Disposition - Plan for ED Patient: Chief Complaint: Wound Check Referrals: Hannah Riggs DO [Primary Care Provider] -
--- NOTE | 2017-11-17 18:36 | ED.DEP ---
ED Disposition - Plan for ED Patient: Chief Complaint: Wound Check Instructions: ED Wound Check Post Op No Infec, ED Wound Check Post Op Bleeding Referrals: Hannah Riggs DO [Primary Care Provider] - Mehul Pollock MD [STAFF PHYSICIAN] - Keep Nicolás appointment
== END 2017-11-17 18:50 | disposition home or self-care (01) ==
PROVIDERS: Emergency Provider Emergency Medicine; Family Provider Internal Medicine; PCP Internal Medicine
DX: Z48.01 Encounter for change or removal of surgical wound dressing (principal); E11.9 Type 2 diabetes mellitus without complications; I10 Essential (primary) hypertension; E78.00 Pure hypercholesterolemia, unspecified; Z86.73 Personal history of transient ischemic attack (TIA), and cerebral infarction without residual deficits; Z95.0 Presence of cardiac pacemaker; Z90.710 Acquired absence of both cervix and uterus; Z79.84 Long term (current) use of oral hypoglycemic drugs; Z79.899 Other long term (current) drug therapy
CPT/HCPCS: 99282

== ENCOUNTER → 2017-12-21 12:47 | Outpatient (CLI) | payer MEDICARE, SELFPAY | PROVIDERS: Family Provider Internal Medicine; PCP Internal Medicine; Visit Provider Internal Medicine Nephrology | DX: E11.9 Type 2 diabetes mellitus without complications (principal) | CPT/HCPCS: 82043; 82570 ==

== ENCOUNTER 2018-03-25 12:45 | Inpatient (IN) | payer MEDICARE, SELFPAY ==
[2018-03-25] VITALS (41 sets, daily range): BP systolic 71–132; BP diastolic 30–84; PULSE 60–86; RESP 16–29; TEMP 36.2–39.2; O2SAT 91–98; BMI 31.5; BMI 33.8
--- NOTE | 2018-03-25 13:05 | RAD_ITS ---
STUDY: X-RAY CHEST REASON FOR EXAM: Female, 68 years old. Weakness TECHNIQUE: Single AP portable view of the chest. COMPARISON: November 16, 2017 FINDINGS: Stable pacemaker device on the left. There are monitoring devices. Left lower lung atelectasis. There is no demonstrated pleural abnormality. There is mild cardiac enlargement. Normal mediastinum and jannette. Normal visualized pulmonary arteries. Normal visualized aortic arch and descending thoracic aorta. There are diffuse degenerative changes of the visualized thoracic spine. Normal visualized ribs, clavicles, and shoulders. There is no demonstrated abnormality of the visualized soft tissue structures of the upper abdomen. RAD/Chest 1 View (Portable) IMPRESSION: Degenerative changes, as described above. No demonstrated acute cardiopulmonary process. Electronically Signed: Darrell Prado MD at 14:04 EDT , Service support ,
--- NOTE | 2018-03-25 13:05 | EKG12_ITS ---
Test Reason : CP Blood Pressure : / mmHG Vent. Rate : 088 BPM Atrial Rate : 127 BPM P-R Int : 000 ms QRS Dur : 104 ms QT Int : 382 ms P-R-T Axes : 000 050 -15 degrees QTc Int : 462 ms Atrial fibrillation Nonspecific ST abnormality Abnormal ECG Confirmed by WOOD LAMAR, JAHAIRA ([id number]), industrial editor DALLAS SAMSON ([id number] on 03/29/2018 2:14:19 PM Referred By: SOULEYMANE Confirmed By:JAHAIRA MUIR MD
--- NOTE | 2018-03-25 13:10 | ED.DCSUM_ITS ---
- ER Visit Summary Date of Service: 03/25/18 Chief Complaint: [Fever lethargy] History of Present Illness: The patient is a 68 F [who presents the emergency department with fever lethargy shortness of breath. She was at her doctor's office on March 22 had blood work and urinalysis done. She was diagnosed with urinary tract infection. She was given antibiotics. She was taking those and had taken 3 doses however her last night she started with fever and chills progressively worsened over the course of the day today and weakness and lethargy. His nausea. No cough but she has felt short of breath. She has a history of atrial fibrillation and was on Eliquis but is no longer. 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 She follows with Dr. Medina for this.] Physical Examination: [] Somnolent, obese PERRL EOMI MMM NECK supple and nontender, no masses Irregular rhythm with a normal rate no murmur rub or gallop, no peripheral edema , symmetric radial pulses CTAB mild tachypnea ABDOMEN is soft and nontender, normal bowel sounds, no distension, no rebound or guarding SKIN is warm and dry no rashes Somnolent but arousable answers questions appropriately and Oriented x3, CN II- XII in tact, no motor or sensory deficits, diffuse weakness No lymphadenopathy Test Results: [] Emergency Department Course and Treatment: [Patient was given fluids and septic workup was pursued. She was given Tylenol for fever of 102.5. Patient was treated for sepsis and will be admitted. She remained stable while in the ED. Results and diagnosis were discussed with the patient, family and hospitalist.] Treatment Plan: [] Disposition: [admit] Impression: [sepsis] This note was generated with Pix[employer] dictation software. It may contain incorrect words, spelling, and punctuation that were not noted in review of the chart prior to signing ED Disposition - Plan for ED Patient: Disposition: Acute Care Hospital [facility] Chief Complaint: Fever
[2018-03-25 13:19] LABS: Absolute Lymphocyte Count 0.25 X10^3/ul (0.83-4.51); Absolute Neutrophil Count 4.8 X10^3/uL (2.0-7.7); Basophil# 0.01 X10^3/uL; Basophil% 0.2 % (0-1); Eosinophil# 0.01 X10^3/uL; Eosinophils% 0.2 % (0-5); Hematocrit 39.9 % (37-47); Hemoglobin 12.2 g/dl (12.0-15.0); Lymphocyte # 0.25 X10^3/ul (4.0); Lymphocyte % 4.9 % (19-41); Mean Corp Hgb Conc 30.6 g/gl (32-36); Mean Corpuscular Hgb 26.5 pg (27.0-32.0); Mean Corpuscular Volume 86.6 fL (81-99); Mean Platelet Vol. 10.4 fl (6.2-12.0); Monocyte# 0.06 X10^3/uL; Monocyte% 1.2 % (0-10); Neutrophil # 4.81 X10^3/uL (2.7-7.7); Neutrophil % 93.3 % (47-70); Platelet Count 144 K/mm3 (150-450); RBC Distribution Width CV 15.2 % (11.6-14.6); RBC Distribution Width SD 47.9 fl (35.1-43.9); Red Blood Count 4.61 M/mm3 (4.2-5.4); White Blood Count 5.2 K/mm3 (4.4-11.0)
[2018-03-25] MEDS: 0.9% Normal Saline 1,000 ML IV.SOLN. 2400 ML IV (13:19)
[2018-03-25] MEDS: Acetaminophen 500 MG Tablet 1000 MG PO (13:19)
[2018-03-25 13:29] LABS: International Normalized Ratio 1.1; Prothrombin Time (Protime)PT. 14.6 SECONDS (11.7-14.9)
[2018-03-25 13:30] LABS: Partial Thromboplast Time 37.8 Seconds (24.1-36.2)
[2018-03-25 13:33] LABS: ALB/GLOB Ratio 0.8 RATIO (0.9-2.4); AST(SGOT) 44 U/L (15-37); Alanine Aminotransfer ALT/SGPT 7 U/L (13-56); Albumin, Serum 3.4 g/dL (3.2-5.0); Alkaline Phosphatase 58 U/L (45-117); Anion Gap 13 (5-15); BUN 16 mg/dL (7-18); BUN/Creat Ratio 15.2 RATIO (10-20); Calcium,Total 8.8 mg/dL (8.5-10.1); Chloride 107 mmol/L (98-107); Creatinine, Serum 1.05 mg/dL (0.55-1.02); Differential Indicated SCAN CRITERIA MET; EST Glomerular Filtration Rate 56 mL/min (>60); Est Glom Filt Rate - Afr Amer 67 mL/min (>60); Globulin 4.4 g/dL (2.2-4.2); Glucose 226 mg/dL (74-106); POSITIVE COUNT NO; POSITIVE DIFFERENTIAL YES; POSITIVE MORPHOLOGY NO; Potassium 4.4 mmol/L (3.5-5.1); Protein, Total 7.8 g/dL (6.4-8.2); Sodium Level 140 mmol/L (136-145)
[2018-03-25 13:36] LABS: Lactic Acid 4.8 mmol/L (0.4-2.0)
[2018-03-25 13:45] LABS: Mucous, Urine 0 SEEN /hpf (<or=2+); Red Blood Cells-Urine 0 SEEN /hpf (0-5)
[2018-03-25 13:46] LABS: Platelet Estimate ADEQUATE (ADEQ); Red Cell Morphology NORM C+C NORMAL (NORM C&C)
[2018-03-25 13:49] LABS: Color, Urine Amber (Yellow); Glucose, Dipstick Normal (Normal); Ketone-Dipstick 50 mg/dl (Negative); Leukocyte Esterase-Dipstick 100 /ul (Negative); Nitrite-Dipstick Negative (Negative); Occult Blood-Urine Negative /ul (Negative); Protein-Dipstick 500 mg/dl (Negative); Specific Gravity, Urine 1.015 (1.002-1.030); Urine Clarity Sl. Cloudy (Clear); Urine Urobilinogen Normal (Normal)
[2018-03-25 13:51] LABS: Urine Bilirubin Dipstick 1 mg/dL (Negative)
[2018-03-25 13:59] LABS: Amorphous Sediment 2+; Bacteria 1+ /hpf (None Seen); Squamous Epithelial Cells - UA 0-5 SEEN /hpf (5-10); White Blood Cells 10-25 SEEN /hpf (0-5)
[2018-03-25] MEDS: Piperacil/Tazobactam 3.375 GM/50 ML ML IV ×2 (14:45→22:02)
--- NOTE | 2018-03-25 14:49 | PCM.HP.STD ---
Problem List (1) Septic shock Status: Acute (2) UTI (urinary tract infection) Status: Acute History of Present Illness Date of Admission: 03/25/18 Chief Complaint: lethargy. fever. The patient is a 68 year old F who is in her normal state of health did have a routine follow-up appointment on the with her primary care doctor. Patient was found to have a urinary tract infection based on the urinalysis and was prescribed Macrobid. On the , the patient started getting sick and lethargic. Patient was having fever and chills. Patient was only able to take 1 dose of the Macrobid. Today the patient was more lethargic and had a temp of 102.5 Fahrenheit. Patient was sent to the emergency room. Patient was found to be in septic shock with a lactic acid of 4.8. Patient was hypertensive and is currently receiving the 30 cc/kg of IV fluids. Patient has been coughing but is been much nonproductive. Patient being admitted for septic shock with really unclear source at this time. [] Past Medical History Past Medical History (Chronic Problems): Chronic Problems (Last Updated 11/22/17 @ 13:19 by Verónica Trinidad) Encounter for long-term current use of high risk medication (Chronic) Encounter for long-term current use of high risk medication (Chronic) Presence of cardiac pacemaker (Chronic) Junctional rhythm (Chronic) Tachy-maurizio syndrome (Chronic) Bradycardia (Chronic) Atrial fibrillation (Chronic) Atrial fibrillation with RVR (Chronic) HLD (hyperlipidemia) (Chronic) HTN (hypertension) (Chronic) Diabetes (Chronic) Hypertensive emergency without congestive heart failure (Chronic) New onset a-fib (Chronic) SDH (subdural hematoma) (Chronic) Medical History: Medical History (Last Reviewed 03/25/18 @ 14:51 by Karel Max DO) Junctional rhythm (Chronic) I49.8 Tachy-maurizio syndrome (Chronic) I49.5 Bradycardia (Chronic) R00.1 Atrial fibrillation (Chronic) I48.91 Atrial fibrillation with RVR (Chronic) I48.91 HLD (hyperlipidemia) (Chronic) E78.5 HTN (hypertension) (Chronic) I10 Hypertensive emergency without congestive heart failure (Chronic) I16.1 New onset a-fib (Chronic) I48.91 Allergies escitalopram [From Lexapro] Allergy (Verified 03/25/18 12:48) Rash shellfish derived Allergy (Verified 03/25/18 12:48) Unknown hydroxychloroquine [From Plaquenil] Adverse Reaction (Severe, Verified 03/25/18 12:48) Unknown perfume Adverse Reaction (Verified 03/25/18 12:48) Unknown pineapple Adverse Reaction (Verified 03/25/18 12:48) Rash quinine Adverse Reaction (Verified 03/25/18 12:48) Unknown strawberry Adverse Reaction (Verified 03/25/18 12:48) Rash Sulfa (Sulfonamide Antibiotics) Adverse Reaction (Verified 03/25/18 12:48) Unknown DUST Adverse Reaction (Uncoded 03/25/18 12:48) Unknown Home Medications: Ambulatory Orders Medication Instructions Recorded Metformin HCl [Glucophage] 1,000 mg PO BIDCM 04/08/17 Simvastatin [Zocor] 40 mg PO QHS 04/08/17 Oxybutynin Chloride [Ditropan Xl] 5 mg PO DAILY 05/20/17 Amlodipine [Norvasc] 5 mg PO DAILY 10/06/17 Hydroxyzine HCl 10 - 20 mg PO Q8H PRN PRN 10/07/17 gabapentin 300 mg capsule 300 mg PO TID 20 Days #60 01/28/18 mirtazapine 15 mg tablet 45 mg PO QHS tab 01/28/18 ramipril 5 mg capsule 5 mg PO DAILY 90 Days #90 01/28/18 Fenofibric Acid [Fenoglide] 135 mg PO DAILY 03/25/18 Lacosamide [Vimpat] 200 mg PO BID 03/25/18 Nitrofurantoin Monohyd/M-Cryst 100 mg PO BID 03/25/18 [Macrobid 100 mg Capsule] Sitagliptin Phosphate [Januvia] 50 mg PO DAILY 03/25/18 Surgical History: Surgical History (Last Reviewed 03/25/18 @ 14:51 by Karel Max DO) Encounter for long-term current use of high risk medication (Chronic) Z79.899 Presence of cardiac pacemaker (Chronic) Z95.0 History of breast surgery Z98.890 History of hysterectomy Z98.890, Z90.710 Surgical History: no surgical history Psychiatric History: No pertinent psych hx 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 Denies: Anorexia Eyes: Denies: Blurred vision, Double vision HEENT: Denies: Head Aches, Sinus Congestion, Sinus Drainage Cardiovascular: Denies: Chest Pain, Palpitations Respiratory: Reports: Cough. Denies: Shortness of breath at rest, Sputum production Gastrointestinal: Denies: Abdominal Pain, Nausea, Vomiting Genitourinary: Reports: Dysuria. Denies: Frequency Musculoskeletal: Denies: Joint Pain, Joint Tenderness Skin: Denies: Rash, Wounds Neurological: Denies: Balance problems, Blurred vision, Double vision, Change in Speech, Slurred speech Hematologic/ Lymphatic: Denies: Easy Bruising, Easy Bleeding, Hx of blood clot Comment: All review of systems are negative except as mentioned in the history of present illness and the other review of systems. VTE Information - Inpt Only VTE Present on Admission: No VTE Mechan Device Prophylaxis: None VTE Pharm Prophylaxis ordered?: Yes Patient Problems: Active and Suspected Problems (Last Updated 11/22/17 @ 13:19 by Verónica Trinidad) Septic shock (Acute) UTI (urinary tract infection) (Acute) - Physical Exam General: Alert, Cooperative, No apparent distress, - - Listless. HEENT: Atraumatic, Normocephalic, - - No scleral icterus Oral: Moist Mucosa, No Gingival or Mucosal Lesions/ Ulcerations Neck: No Nodes, Thyroid Normal Size and Texture Lungs: Clear to auscultation, No rhonchi, No wheeze, Diminished Cardiovascular: Regular rate, Regular Rhythm, Normal S1, Normal S2, No murmurs Abdomen: Bowel Sounds Present, Soft, Non Tender, Non-Distended, No Hepato-splenomegaly Extremities: No edema, No Calf Tenderness Skin: No rashes, No breakdown, - - Sites in left upper chest is wean intact and no fluctuance appreciated. Musculoskeletal: No Tenderness to Palpation of Joints or Extremities, No Muscle Wasting Neurological: Deep Tendon Reflexes 2+/4 and Symmetrical, Neuro grossly intact, Sensory exam intact to light touch and pain Psych/Mental Status: Normal Affect, Appropriate Vital Signs Temp Pulse Resp BP Pulse Ox 38.2 C H 74 19 H 87/48 L 96 03/25/18 13:19 03/25/18 14:15 03/25/18 14:15 03/25/18 14:15 03/25/18 14:15 Oxygen Flow Rate (L/min) 4 Oxygen Delivery Method Nasal Cannula Weight: 80.7 kg Body Mass Index (BMI) 31.5 Finger Stick Blood Glucose 129 Laboratory Tests Past 24 Hrs 03/25/18 03/25/18 03/25/18 12:45 12:45 12:45 WBC 5.2 RBC 4.61 Hgb 12.2 Hct 39.9 MCV 86.6 MCH 26.5 L MCHC 30.6 L RDW 15.2 H RDW Differential 47.9 H Plt Count 144 L MPV 10.4 Immature Gran % (Auto) 0.200 Neut % (Auto) 93.3 H Lymph % (Auto) 4.9 L [place] % (Auto) 1.2 Eos % (Auto) 0.2 Baso % (Auto) 0.2 Absolute Neuts (auto) 4.8 Absolute Lymphs (auto) 0.25 L Total Counted Not Reportable Differential Comment Platelet Estimate ADEQUATE RBC Morphology NORM C+C PT 14.6 INR 1.1 APTT 37.8 H Sodium 140 Potassium 4.4 Chloride 107 Carbon Dioxide 20.0 L Anion Gap 13 BUN 16 Creatinine 1.05 H Estim Creat Clear Calc 43.60 Est GFR (MDRD) Af Amer 67 Est GFR (MDRD) Non-Af 56 L BUN/Creatinine Ratio 15.2 Glucose 226 H Lactic Acid Calcium 8.8 Total Bilirubin 0.40 AST 44 H ALT 7 L Alkaline Phosphatase 58 Troponin I < 0.015 Total Protein 7.8 Albumin 3.4 Globulin 4.4 H Albumin/Globulin Ratio 0.8 L Urine Color Urine Clarity Urine pH Ur Specific [place] Urine Protein Urine Glucose (UA) Urine Ketones Urine Occult Blood Urine Nitrite Urine Bilirubin Urine Urobilinogen Ur Leukocyte Esterase Urine RBC Urine WBC Ur Squamous Epith Cells Amorphous Sediment Urine Bacteria Urine Mucus 03/25/18 03/25/18 12:45 13:40 WBC RBC Hgb Hct MCV MCH MCHC RDW RDW Differential Plt Count MPV Immature Gran % (Auto) Neut % (Auto) Lymph % (Auto) [place] % (Auto) Eos % (Auto) Baso % (Auto) Absolute Neuts (auto) Absolute Lymphs (auto) Total Counted Differential Comment Platelet Estimate RBC Morphology PT INR APTT Sodium Potassium Chloride Carbon Dioxide Anion Gap BUN Creatinine Estim Creat Clear Calc Est GFR (MDRD) Af Amer Est GFR (MDRD) Non-Af BUN/Creatinine Ratio Glucose Lactic Acid 4.8 H* Calcium Total Bilirubin AST ALT Alkaline Phosphatase Troponin I Total Protein Albumin Globulin Albumin/Globulin Ratio Urine Color Mitra Urine Clarity Sl. Cloudy Urine pH 5.0 Ur Specific [place] 1.015 Urine Protein 500 H Urine Glucose (UA) Normal Urine Ketones 50 H Urine Occult Blood Negative Urine Nitrite Negative Urine Bilirubin 1 H Urine Urobilinogen Normal Ur Leukocyte Esterase 100 H Urine RBC 0 SEEN Urine WBC 10-25 SEEN Ur Squamous Epith Cells 0-5 SEEN Amorphous Sediment 2+ Urine Bacteria 1+ Urine Mucus 0 SEEN X-ray reviewed and showed poor respiratory effort. No definitive pulmonary edema. Questionable right lower lobe atelectasis. Assessment/Plan All Active Problems (Last Updated 11/22/17 @ 13:19 by Verónica Trinidad) Septic shock (Acute) UTI (urinary tract infection) (Acute) Vaginal bleeding (Acute) Febrile illness, acute (Acute) Pseudoseizure (Acute) Breakthrough seizure (Acute) Seizure (Acute) 1. Septic shock Unclear source at this time though urinalysis is positive but not greatly so. Patient is receiving the per kilogram currently in the emergency room and will continue with IV fluids on the floor. Patient will be on vancomycin and Zosyn pending result of cultures Follow results of blood cultures, check sputum cultures and urine culture. I suspect patient will do well with IV fluids but did mention to the patient's that if her blood pressure does not improve then would have to consider pressor agents which was subsequently require a central line. Follow-up lactic acid. Currently 4.8. Certainly this is related with her septic shock but also component may be skewed given the patient's use of metformin. 2. UTI Continue with antibiotics as above Follow-up urine culture Patient only took 1 dose of Macrobid but patient was already for sick at that time for it to be done any effect even if it urine culture comes back sensitive to Macrobid. 3. Metabolic encephalopathy Patient just more listless and her baseline. Related with septic shock and possible urinary tract infection Supportive management 4. Hypertension Given the patient's hypotension at this time I will hold off on her amlodipine and lisinopril Resume when her blood pressure permits 5. Diabetes mellitus type 2 Metformin is being held due to the lactic acidosis Continue with Januvia Sliding scale insulin 6. DVT prophylaxis with Lovenox Code Visit Inpatient E&M: 26970 Init Hosp L3
--- NOTE | 2018-03-25 14:53 | HP.PCM_ITS ---
Problem List (1) Septic shock Status: Acute (2) UTI (urinary tract infection) Status: Acute History of Present Illness Date of Admission: 03/25/18 Chief Complaint: lethargy. fever. The patient is a 68 year old F who is in her normal state of health did have a routine follow-up appointment on the with her primary care doctor. Patient was found to have a urinary tract infection based on the urinalysis and was prescribed Macrobid. On the , the patient started getting sick and lethargic. Patient was having fever and chills. Patient was only able to take 1 dose of the Macrobid. Today the patient was more lethargic and had a temp of 102.5 Fahrenheit. Patient was sent to the emergency room. Patient was found to be in septic shock with a lactic acid of 4.8. Patient was hypertensive and is currently receiving the 30 cc/kg of IV fluids. Patient has been coughing but is been much nonproductive. Patient being admitted for septic shock with really unclear source at this time. [] Past Medical History Past Medical History (Chronic Problems): Chronic Problems (Last Updated 11/22/17 @ 13:19 by Verónica Trinidad) Encounter for long-term current use of high risk medication (Chronic) Encounter for long-term current use of high risk medication (Chronic) Presence of cardiac pacemaker (Chronic) Junctional rhythm (Chronic) Tachy-maurizio syndrome (Chronic) Bradycardia (Chronic) Atrial fibrillation (Chronic) Atrial fibrillation with RVR (Chronic) HLD (hyperlipidemia) (Chronic) HTN (hypertension) (Chronic) Diabetes (Chronic) Hypertensive emergency without congestive heart failure (Chronic) New onset a-fib (Chronic) SDH (subdural hematoma) (Chronic) Medical History: Medical History (Last Reviewed 03/25/18 @ 14:51 by Karel Max DO) Junctional rhythm (Chronic) I49.8 Tachy-maurizio syndrome (Chronic) I49.5 Bradycardia (Chronic) R00.1 Atrial fibrillation (Chronic) I48.91 Atrial fibrillation with RVR (Chronic) I48.91 HLD (hyperlipidemia) (Chronic) E78.5 HTN (hypertension) (Chronic) I10 Hypertensive emergency without congestive heart failure (Chronic) I16.1 New onset a-fib (Chronic) I48.91 Allergies escitalopram [From Lexapro] Allergy (Verified 03/25/18 12:48) Rash shellfish derived Allergy (Verified 03/25/18 12:48) Unknown hydroxychloroquine [From Plaquenil] Adverse Reaction (Severe, Verified 03/25/18 12:48) Unknown perfume Adverse Reaction (Verified 03/25/18 12:48) Unknown pineapple Adverse Reaction (Verified 03/25/18 12:48) Rash quinine Adverse Reaction (Verified 03/25/18 12:48) Unknown strawberry Adverse Reaction (Verified 03/25/18 12:48) Rash Sulfa (Sulfonamide Antibiotics) Adverse Reaction (Verified 03/25/18 12:48) Unknown DUST Adverse Reaction (Uncoded 03/25/18 12:48) Unknown Home Medications: Ambulatory Orders Medication Instructions Recorded Metformin HCl [Glucophage] 1,000 mg PO BIDCM 04/08/17 Simvastatin [Zocor] 40 mg PO QHS 04/08/17 Oxybutynin Chloride [Ditropan Xl] 5 mg PO DAILY 05/20/17 Amlodipine [Norvasc] 5 mg PO DAILY 10/06/17 Hydroxyzine HCl 10 - 20 mg PO Q8H PRN PRN 10/07/17 gabapentin 300 mg capsule 300 mg PO TID 20 Days #60 01/28/18 mirtazapine 15 mg tablet 45 mg PO QHS tab 01/28/18 ramipril 5 mg capsule 5 mg PO DAILY 90 Days #90 01/28/18 Fenofibric Acid [Fenoglide] 135 mg PO DAILY 03/25/18 Lacosamide [Vimpat] 200 mg PO BID 03/25/18 Nitrofurantoin Monohyd/M-Cryst 100 mg PO BID 03/25/18 [Macrobid 100 mg Capsule] Sitagliptin Phosphate [Januvia] 50 mg PO DAILY 03/25/18 Surgical History: Surgical History (Last Reviewed 03/25/18 @ 14:51 by Karel Max DO) Encounter for long-term current use of high risk medication (Chronic) Z79.899 Presence of cardiac pacemaker (Chronic) Z95.0 History of breast surgery Z98.890 History of hysterectomy Z98.890, Z90.710 Surgical History: no surgical history Psychiatric History: No pertinent psych hx MANAGER SURGERY 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 Denies: Anorexia Eyes: Denies: Blurred vision, Double vision HEENT: Denies: Head Aches, Sinus Congestion, Sinus Drainage Cardiovascular: Denies: Chest Pain, Palpitations Respiratory: Reports: Cough. Denies: Shortness of breath at rest, Sputum production Gastrointestinal: Denies: Abdominal Pain, Nausea, Vomiting Genitourinary: Reports: Dysuria. Denies: Frequency Musculoskeletal: Denies: Joint Pain, Joint Tenderness Skin: Denies: Rash, Wounds Neurological: Denies: Balance problems, Blurred vision, Double vision, Change in Speech, Slurred speech Hematologic/ Lymphatic: Denies: Easy Bruising, Easy Bleeding, Hx of blood clot Comment: All review of systems are negative except as mentioned in the history of present illness and the other review of systems. VTE Information - Inpt Only VTE Present on Admission: No VTE Mechan Device Prophylaxis: None VTE Pharm Prophylaxis ordered?: Yes Patient Problems: Active and Suspected Problems (Last Updated 11/22/17 @ 13:19 by Verónica Trinidad) Septic shock (Acute) UTI (urinary tract infection) (Acute) - Physical Exam General: Alert, Cooperative, No apparent distress, - - Listless. HEENT: Atraumatic, Normocephalic, - - No scleral icterus Oral: Moist Mucosa, No Gingival or Mucosal Lesions/ Ulcerations Neck: No Nodes, Thyroid Normal Size and Texture Lungs: Clear to auscultation, No rhonchi, No wheeze, Diminished Cardiovascular: Regular rate, Regular Rhythm, Normal S1, Normal S2, No murmurs Abdomen: Bowel Sounds Present, Soft, Non Tender, Non-Distended, No Hepato- splenomegaly Extremities: No edema, No Calf Tenderness Skin: No rashes, No breakdown, - - Sites in left upper chest is wean intact and no fluctuance appreciated. Musculoskeletal: No Tenderness to Palpation of Joints or Extremities, No Muscle Wasting Neurological: Deep Tendon Reflexes 2+/4 and Symmetrical, Neuro grossly intact, Sensory exam intact to light touch and pain Psych/Mental Status: Normal Affect, Appropriate Vital Signs Temp Pulse Resp BP Pulse Ox 38.2 C H 74 19 H 87/48 L 96 03/25/18 13:19 03/25/18 14:15 03/25/18 14:15 03/25/18 14:15 03/25/18 14:15 Oxygen Flow Rate (L/min) 4 Oxygen Delivery Method Nasal Cannula Weight: 80.7 kg Body Mass Index (BMI) 31.5 Finger Stick Blood Glucose 129 Laboratory Tests Past 24 Hrs 03/25/18 03/25/18 03/25/18 12:45 12:45 12:45 WBC 5.2 RBC 4.61 Hgb 12.2 Hct 39.9 MCV 86.6 MCH 26.5 L MCHC 30.6 L RDW 15.2 H RDW Differential 47.9 H Plt Count 144 L MPV 10.4 Immature Gran % (Auto) 0.200 Neut % (Auto) 93.3 H Lymph % (Auto) 4.9 L [place] % (Auto) 1.2 Eos % (Auto) 0.2 Baso % (Auto) 0.2 Absolute Neuts (auto) 4.8 Absolute Lymphs (auto) 0.25 L Total Counted Not Reportable Differential Comment Platelet Estimate ADEQUATE RBC Morphology NORM C+C PT 14.6 INR 1.1 APTT 37.8 H Sodium 140 Potassium 4.4 Chloride 107 Carbon Dioxide 20.0 L Anion Gap 13 BUN 16 Creatinine 1.05 H Estim Creat Clear Calc 43.60 Est GFR (MDRD) Af Amer 67 Est GFR (MDRD) Non-Af 56 L BUN/Creatinine Ratio 15.2 Glucose 226 H Lactic Acid Calcium 8.8 Total Bilirubin 0.40 AST 44 H ALT 7 L Alkaline Phosphatase 58 Troponin I < 0.015 Total Protein 7.8 Albumin 3.4 Globulin 4.4 H Albumin/Globulin Ratio 0.8 L Urine Color Urine Clarity Urine pH Ur Specific [place] Urine Protein Urine Glucose (UA) Urine Ketones Urine Occult Blood Urine Nitrite Urine Bilirubin Urine Urobilinogen Ur Leukocyte Esterase Urine RBC Urine WBC Ur Squamous Epith Cells Amorphous Sediment Urine Bacteria Urine Mucus 03/25/18 03/25/18 12:45 13:40 WBC RBC Hgb Hct MCV MCH MCHC RDW RDW Differential Plt Count MPV Immature Gran % (Auto) Neut % (Auto) Lymph % (Auto) [place] % (Auto) Eos % (Auto) Baso % (Auto) Absolute Neuts (auto) Absolute Lymphs (auto) Total Counted Differential Comment Platelet Estimate RBC Morphology PT INR APTT Sodium Potassium Chloride Carbon Dioxide Anion Gap BUN Creatinine Estim Creat Clear Calc Est GFR (MDRD) Af Amer Est GFR (MDRD) Non-Af BUN/Creatinine Ratio Glucose Lactic Acid 4.8 H* Calcium Total Bilirubin AST ALT Alkaline Phosphatase Troponin I Total Protein Albumin Globulin Albumin/Globulin Ratio Urine Color [place] Urine Clarity Sl. Cloudy Urine pH 5.0 Ur Specific [place] 1.015 Urine Protein 500 H Urine Glucose (UA) Normal Urine Ketones 50 H Urine Occult Blood Negative Urine Nitrite Negative Urine Bilirubin 1 H Urine Urobilinogen Normal Ur Leukocyte Esterase 100 H Urine RBC 0 SEEN Urine WBC 10-25 SEEN Ur Squamous Epith Cells 0-5 SEEN Amorphous Sediment 2+ Urine Bacteria 1+ Urine Mucus 0 SEEN X-ray reviewed and showed poor respiratory effort. No definitive pulmonary edema. Questionable right lower lobe atelectasis. Assessment/Plan All Active Problems (Last Updated 11/22/17 @ 13:19 by Verónica Trinidad) Septic shock (Acute) UTI (urinary tract infection) (Acute) Vaginal bleeding (Acute) Febrile illness, acute (Acute) Pseudoseizure (Acute) Breakthrough seizure (Acute) Seizure (Acute) 1. Septic shock * Unclear source at this time though urinalysis is positive but not greatly so. * Patient is receiving the per kilogram currently in the emergency room and will continue with IV fluids on the floor. * Patient will be on vancomycin and Zosyn pending result of cultures * Follow results of blood cultures, check sputum cultures and urine culture. * I suspect patient will do well with IV fluids but did mention to the patient' s that if her blood pressure does not improve then would have to consider pressor agents which was subsequently require a central line. * Follow-up lactic acid. Currently 4.8. Certainly this is related with her septic shock but also component may be skewed given the patient's use of metformin. 2. UTI * Continue with antibiotics as above * Follow-up urine culture * Patient only took 1 dose of Macrobid but patient was already for sick at that time for it to be done any effect even if it urine culture comes back sensitive to Macrobid. 3. Metabolic encephalopathy * Patient just more listless and her baseline. * Related with septic shock and possible urinary tract infection * Supportive management 4. Hypertension * Given the patient's hypotension at this time I will hold off on her amlodipine and lisinopril * Resume when her blood pressure permits 5. Diabetes mellitus type 2 * Metformin is being held due to the lactic acidosis * Continue with Januvia * Sliding scale insulin 6. DVT prophylaxis with Lovenox Code Visit Inpatient E&M: 43206 Init Hosp L3
--- NOTE | 2018-03-25 15:01 | NURSING ---
ICU SEPTIC SHOCK [facility]E
--- NOTE | 2018-03-25 15:02 | NURSING ---
ICU 1
[2018-03-25] MEDS: 0.9% Normal Saline 1,000 ML 999 ML IV ×2 (15:15)
--- NOTE | 2018-03-25 15:35 | EKG12_ITS ---
Test Reason : CP Blood Pressure : / mmHG Vent. Rate : 060 BPM Atrial Rate : 061 BPM P-R Int : 000 ms QRS Dur : 092 ms QT Int : 404 ms P-R-T Axes : 000 031 -83 degrees QTc Int : 404 ms Suspect unspecified pacemaker failure Junctional rhythm Low voltage QRS ST & T wave abnormality, consider anterolateral ischemia Abnormal ECG Confirmed by ALONDRA LAMAR, JAY ([id number]), newspaper editor managing DALLAS SAMSON ([id number]) on 03/29/2018 3:04:29 PM Referred By: SOULEYMANE Confirmed By:JAY CANTU MD
[2018-03-25] MEDS: Insulin Lispro 100 UNIT/ML INSULN.PEN SQ (16:15)
[2018-03-25] MEDS: Gabapentin 300 MG Capsule PO (16:15)
[2018-03-25 16:16] LABS: Bedside Glucose 173 mg/dL (70-110)
[2018-03-25] MEDS: 0.9% NaCl Peripheral Flush Adult/Peds IV (16:16)
--- NOTE | 2018-03-25 16:16 | US_ITS ---
STUDY: RENAL ULTRASOUND - COMPLETE REASON FOR EXAM: Female, 68 years old. Sepsis. TECHNIQUE: Ultrasound evaluation of the kidneys was performed with real-time and static adams-scale imaging. COMPARISON: None. FINDINGS: RIGHT KIDNEY: Normal location of the right kidney, which is normal in size. The right kidney measures 14.2 x 5.6 x 5.3 cm. There is a normal cortex of the right kidney. The renal cortex measures 1.5 cm. There is no right renal mass or cyst. Multiple echogenic foci of the right kidney. The largest is approximately 1 cm in the superior pole. There is no right hydronephrosis. DISTAL RIGHT URETER: There is non-visualization of the distal right ureter. There is no demonstrated right ureterovesical junction calculus. There is a visualized right ureteral jet. LEFT KIDNEY: Normal location of the left kidney, which is normal in size. The left kidney measures 13.8 x 5.2 x 5.8 cm. There is a normal cortex of the left kidney. The renal cortex measures 1.4 cm. 1.2 x 0.9 x 1.2 cm cyst in the upper pole of the left kidney. Multiple tiny echogenic foci of the left kidney too small to measure. There is no left hydronephrosis. DISTAL LEFT URETER: There is non-visualization of the distal left ureter. There is no demonstrated left ureterovesical junction calculus. There is a visualized left ureteral jet. AORTA: Not visualized. I.V.C.: Not visualized. BLADDER: Unremarkable nondistended urinary bladder. US/Kidney and Bladder IMPRESSION: Normal size of the right kidney. Multiple echogenic foci, potential renal stones. The largest measures approximately 1 cm in the upper pole. Negative for hydronephrosis. Normal size of the left kidney. Multiple tiny echogenic foci too small to measure, potential renal stones. Negative for hydronephrosis. Unremarkable urinary bladder. Bilateral ureteral jets are demonstrated. Electronically Signed: Georgia Myers MD at 23:40 EDT , Service support ,
--- NOTE | 2018-03-25 16:21 | CON.PCM_ITS ---
Problem List (1) Septic shock Status: Acute (2) UTI (urinary tract infection) Status: Acute (3) Presence of cardiac pacemaker Status: Chronic (4) Junctional rhythm Status: Chronic (5) Atrial fibrillation Status: Chronic Qualifiers: Atrial fibrillation type: paroxysmal Qualified Code(s): I48.0 - Paroxysmal atrial fibrillation (6) HTN (hypertension) Status: Chronic Qualifiers: Hypertension type: essential hypertension Qualified Code(s): I10 - Essential (primary) hypertension (7) Diabetes Status: Chronic Qualifiers: Diabetes mellitus type: type 2 Diabetes mellitus mine engineering superintendent insulin use: without mine engineering superintendent use Diabetes mellitus complication status: with circulatory complication Diabetes mellitus complication detail: with peripheral angiopathy without gangrene Qualified Code(s): E11.51 - Type 2 diabetes mellitus with diabetic peripheral angiopathy without gangrene (8) Seizure Status: Chronic Reason for Consult Date of Consultation: 03/25/18 Reason for Consultation: Probable sepsis History of Present Illness: The patient is a 68 year old F, with past medical history listed below, who presented to [facility] on 03/25/2018 secondary to worsening fever, lethargy and shortness of breath. Patient had reportedly presented to her doctor's office on March 22 and received urinalysis and blood work. Patient was diagnosed with a urinary tract infection and started on Macrobid therapy. Patient reportedly improved somewhat, but overnight started to have increasing fever, chills and lethargy. Patient denies any nausea or vomiting. No cough is been reported. Patient does have a history of a pacemaker secondary to atrial fibrillation and tachybradycardia syndrome, but has not been on Eliquis therapy secondary to vaginal bleeds. Patient is on Keppra at baseline secondary to history of seizure. In the emergency room, patient was noted to be febrile. Patient has received approximately 4 L and normal saline boluses with improvement of blood pressure. On arrival to the intensive care unit, patient had complained of some chest pain that was 8 out of 10 and described as pressure sensation. Patient states this has improved throughout the hospital course. EKG showed no change from baseline. Patient reports a history of a kidney stone for over 20 years. Patient states that it would need to be surgically removed. Patient denies any recent dysuria, flank pain, hematuria or vaginal bleeding. Review of systems otherwise negative ?10 systems. Past Medical History Past Medical History (Chronic Problems): Chronic Problems (Last Reviewed 03/25/18 @ 14:51 by Karel Max DO) Encounter for long-term current use of high risk medication (Chronic) Encounter for long-term current use of high risk medication (Chronic) Presence of cardiac pacemaker (Chronic) Junctional rhythm (Chronic) Tachy-maurizio syndrome (Chronic) Bradycardia (Chronic) Atrial fibrillation (Chronic) Atrial fibrillation with RVR (Chronic) HLD (hyperlipidemia) (Chronic) HTN (hypertension) (Chronic) Diabetes (Chronic) Hypertensive emergency without congestive heart failure (Chronic) New onset a-fib (Chronic) SDH (subdural hematoma) (Chronic) Seizure (Chronic) Medical History: Medical History (Last Reviewed 03/25/18 @ 14:51 by Karel Max DO) Junctional rhythm (Chronic) I49.8 Tachy-maurizio syndrome (Chronic) I49.5 Bradycardia (Chronic) R00.1 Atrial fibrillation (Chronic) I48.91 Atrial fibrillation with RVR (Chronic) I48.91 HLD (hyperlipidemia) (Chronic) E78.5 HTN (hypertension) (Chronic) I10 Hypertensive emergency without congestive heart failure (Chronic) I16.1 New onset a-fib (Chronic) I48.91 Allergies escitalopram [From Lexapro] Allergy (Verified 03/25/18 12:48) Rash shellfish derived Allergy (Verified 03/25/18 12:48) Unknown hydroxychloroquine [From Plaquenil] Adverse Reaction (Severe, Verified 03/25/18 12:48) Unknown perfume Adverse Reaction (Verified 03/25/18 12:48) Unknown pineapple Adverse Reaction (Verified 03/25/18 12:48) Rash quinine Adverse Reaction (Verified 03/25/18 12:48) Unknown strawberry Adverse Reaction (Verified 03/25/18 12:48) Rash Sulfa (Sulfonamide Antibiotics) Adverse Reaction (Verified 03/25/18 12:48) Unknown DUST Adverse Reaction (Uncoded 03/25/18 12:48) Unknown Home Medications: Ambulatory Orders Medication Instructions Recorded Metformin HCl [Glucophage] 1,000 mg PO BIDCM 04/08/17 Simvastatin [Zocor] 40 mg PO QHS 04/08/17 Oxybutynin Chloride [Ditropan Xl] 5 mg PO DAILY 05/20/17 Amlodipine [Norvasc] 5 mg PO DAILY 10/06/17 Hydroxyzine HCl 10 - 20 mg PO Q8H PRN PRN 10/07/17 gabapentin 300 mg capsule 300 mg PO TID 20 Days #60 01/28/18 mirtazapine 15 mg tablet 45 mg PO QHS tab 01/28/18 ramipril 5 mg capsule 5 mg PO DAILY 90 Days #90 01/28/18 Fenofibric Acid [Fenoglide] 135 mg PO DAILY 03/25/18 Lacosamide [Vimpat] 200 mg PO BID 03/25/18 Nitrofurantoin Monohyd/M-Cryst 100 mg PO BID 03/25/18 [Macrobid 100 mg Capsule] Sitagliptin Phosphate [Januvia] 50 mg PO DAILY 03/25/18 Surgical History: Surgical History (Last Reviewed 03/25/18 @ 14:51 by Karel Max DO) Encounter for long-term current use of high risk medication (Chronic) Z79.899 Presence of cardiac pacemaker (Chronic) Z95.0 History of breast surgery Z98.890 History of hysterectomy Z98.890, Z90.710 Surgical History: no surgical history Psychiatric History: No pertinent psych hx 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 Patient Problems: Active and Suspected Problems (Last Reviewed 03/25/18 @ 14:51 by Karel Max DO) Septic shock (Acute) UTI (urinary tract infection) (Acute) Objective: Chest x-ray was personally reviewed and shows no acute infiltrate. Patient does have a pacemaker noted in the left chest. Previous echocardiogram shows preserved ejection fraction of 60% with elevated pulmonary artery pressure of 31 mmHg. - Physical Exam General: Alert, Oriented x3, Cooperative, No apparent distress, - - Appears stated age. Vocalizing well. No accessory muscle use noted. HEENT: Atraumatic, PERRLA, EOMI, Normocephalic, - - No scleral icterus or injection noted. Oral: Moist Mucosa, No Gingival or Mucosal Lesions/ Ulcerations Neck: Supple, No JVD, No Nodes, Trachea Midline Lungs: Clear to auscultation, Normal air movement, No rhonchi, No wheeze, No rales Cardiovascular: Normal S1, Normal S2, Irregular Rate, Murmur - Grade 2 out of 6 systolic ejection murmur at left sternal border, No rub noted, No Gallop Abdomen: Bowel Sounds Present, Soft, Non Tender, Non-Distended, Obese, - - No flank pain Extremities: No clubbing, No cyanosis, No edema, Capillary Refill Less than 3 Seconds Skin: No rashes, No breakdown Musculoskeletal: No Tenderness to Palpation of Joints or Extremities, No Muscle Wasting Lymphatic: No Cervical, Supraclavicular, or Inguinal Adenopathy Neurological: Cranial nerves II-XII grossly intact, Neuro grossly intact, Motor Exam 5/5 strength throughout Psych/Mental Status: Alert and oriented to time, place, person, mood and affect Vital Signs Temp Pulse Resp BP Pulse Ox 37.0 C 63 16 81/51 L 94 03/25/18 15:30 03/25/18 15:45 03/25/18 15:45 03/25/18 15:45 03/25/18 15:48 Oxygen Flow Rate (L/min) 2 Oxygen Delivery Method Nasal Cannula Weight: 83.9 kg Body Mass Index (BMI) 33.8 Laboratory Tests 03/25/18 03/25/18 03/25/18 12:45 12:45 12:45 WBC 5.2 RBC 4.61 Hgb 12.2 Hct 39.9 MCV 86.6 MCH 26.5 L MCHC 30.6 L RDW 15.2 H RDW Differential 47.9 H Plt Count 144 L MPV 10.4 Immature Gran % (Auto) 0.200 Neut % (Auto) 93.3 H Lymph % (Auto) 4.9 L Cooke % (Auto) 1.2 Eos % (Auto) 0.2 Baso % (Auto) 0.2 Absolute Neuts (auto) 4.8 Absolute Lymphs (auto) 0.25 L Total Counted Not Reportable Differential Comment Platelet Estimate ADEQUATE RBC Morphology NORM C+C PT 14.6 INR 1.1 APTT 37.8 H Sodium 140 Potassium 4.4 Chloride 107 Carbon Dioxide 20.0 L Anion Gap 13 BUN 16 Creatinine 1.05 H Estim Creat Clear Calc 43.60 Est GFR (MDRD) Af Amer 67 Est GFR (MDRD) Non-Af 56 L BUN/Creatinine Ratio 15.2 Glucose 226 H Lactic Acid Calcium 8.8 Total Bilirubin 0.40 AST 44 H ALT 7 L Alkaline Phosphatase 58 Troponin I < 0.015 Total Protein 7.8 Albumin 3.4 Globulin 4.4 H Albumin/Globulin Ratio 0.8 L Urine Color Urine Clarity Urine pH Ur Specific [place] Urine Protein Urine Glucose (UA) Urine Ketones Urine Occult Blood Urine Nitrite Urine Bilirubin Urine Urobilinogen Ur Leukocyte Esterase Urine RBC Urine WBC Ur Squamous Epith Cells Amorphous Sediment Urine Bacteria Urine Mucus POC Glucose 03/25/18 03/25/18 03/25/18 12:45 13:40 16:10 WBC RBC Hgb Hct MCV MCH MCHC RDW RDW Differential Plt Count MPV Immature Gran % (Auto) Neut % (Auto) Lymph % (Auto) Cooke % (Auto) Eos % (Auto) Baso % (Auto) Absolute Neuts (auto) Absolute Lymphs (auto) Total Counted Differential Comment Platelet Estimate RBC Morphology PT INR APTT Sodium Potassium Chloride Carbon Dioxide Anion Gap BUN Creatinine Estim Creat Clear Calc Est GFR (MDRD) Af Amer Est GFR (MDRD) Non-Af BUN/Creatinine Ratio Glucose Lactic Acid 4.8 H* Calcium Total Bilirubin AST ALT Alkaline Phosphatase Troponin I Total Protein Albumin Globulin Albumin/Globulin Ratio Urine Color Mitra Urine Clarity Sl. Cloudy Urine pH 5.0 Ur Specific [place] 1.015 Urine Protein 500 H Urine Glucose (UA) Normal Urine Ketones 50 H Urine Occult Blood Negative Urine Nitrite Negative Urine Bilirubin 1 H Urine Urobilinogen Normal Ur Leukocyte Esterase 100 H Urine RBC 0 SEEN Urine WBC 10-25 SEEN Ur Squamous Epith Cells 0-5 SEEN Amorphous Sediment 2+ Urine Bacteria 1+ Urine Mucus 0 SEEN POC Glucose 173 H Clinical Impression(s) from Imaging Studies Chest X-Ray 03/25/18 13:05 IMPRESSION: Degenerative changes, as described above. No demonstrated acute cardiopulmonary process. Electronically Signed: Darrell Prado MD at 14:04 EDT , Service support , Assessment/Plan Active and Suspected Problems (Last Reviewed 03/25/18 @ 14:51 by Karel Max DO) Septic shock (Acute) UTI (urinary tract infection) (Acute) RECOMMENDATIONS: 1. Await results of crook culture 2. Agree with healthcare associated infection antibiotics 3. Obtain renal ultrasound 4. Wean oxygen as tolerated 5. Repeat lactate, hold metformin and Januvia IMPRESSIONS: 1. Septic shock secondary to possible UTI Source of sepsis is unclear at this time. Patient does report a history of kidney stone, but urinalysis is not very significant. That being said, this may indicate a partially treated infection given recent Macrobid. Agree with healthcare associated infection antibiotics. Patient has received significant IV fluids at this time. Patient may require central line with initiation of pressor agents. Did discuss with the patient and she wants to be full CODE STATUS. Crook cultures have been sent. 2. Metabolic encephalopathy reports the patient is more listless than her baseline. Patient reportedly does have difficulties with processing complex information for her , but he feels that she is subjectively worse. This may be a result of her blood pressure. 3. Diabetes mellitus type 2 Consider discontinuation of home medications. Metformin has been associated with lactic acidosis. Patient should be placed on sliding scale insulin. Continue to monitor blood sugars every 6 hours. 4. Hyperlipidemia/tachybradycardia syndrome/A. fib/questionable seizure disorder Complicates care, management, recovery and prognosis. Cycle cardiac enzymes. Continue with telemetry monitoring. TIME: 35 minutes critical care time spent addressing patient's septic shock, metabolic encephalopathy, diabetes, review of all data and collaboration with care team. (3:30 PM to 4:30 PM) Code Visit 9xxxx: [id number] Critical care first hour
--- NOTE | 2018-03-25 16:21 | PCM.RX.CS ---
Consult Pharmacy has been consulted to manage selected antiobiotic: Vancomycin Type of Consult: New start Suspected Infection: Sepsis Prior Doses of Antibiotics Received/Current Regimen: 0 Labs: Sodium 140 mmol/L (136-145) 03/25/18 12:45 Potassium 4.4 mmol/L (3.5-5.1) 03/25/18 12:45 Chloride 107 mmol/L (98-107) 03/25/18 12:45 Carbon Dioxide 20.0 mmol/L (21.0-32.0) L 03/25/18 12:45 Anion Gap 13 (5-15) 03/25/18 12:45 BUN 16 mg/dL (7-18) 03/25/18 12:45 Creatinine 1.05 mg/dL (0.55-1.02) H 03/25/18 12:45 Est GFR (MDRD) Af Amer 67 mL/min (>60) 03/25/18 12:45 Est GFR (MDRD) Non-Af 56 mL/min (>60) L 03/25/18 12:45 BUN/Creatinine Ratio 15.2 RATIO (10-20) 03/25/18 12:45 Glucose 226 mg/dL (74-106) H 03/25/18 12:45 Weight used for dosin.9 kg Estimated Creatinine Clearance: 43.6 Goal Trough: 15-20 mcg/mL - 1250MG LOADING DOSE THEN 500MG Q12H. CHECK TROUGH PRIOR TO 4TH DOSE Pharmacy Plan for Drug Dosing: Pharmacy Service will continue to monitor and adjust dosing as required.
[2018-03-25 16:34] LABS: Lactic Acid 2.9 mmol/L (0.4-2.0)
[2018-03-25] MEDS: 0.9% Normal Saline 1,000 ML 150 ML IV ×2 (16:41→23:22)
--- NOTE | 2018-03-25 17:00 | NURSING ---
Dr. Max at bedside for central line insertion
[2018-03-25 17:13] LABS: Reflex Lactate? Y
[2018-03-25 17:24] LABS: M R Staph aureus DNA By PCR Negative (Negative); Probe Check PASS; Specimen Processing Control PASS
--- NOTE | 2018-03-25 17:40 | RAD_ITS ---
STUDY: X-RAY CHEST REASON FOR EXAM: Female, 68 years old. Central line placement TECHNIQUE: Single AP portable view of the chest. COMPARISON: Prior chest radiograph of March 25, 2018 FINDINGS: A right central line ends in the distal superior vena cava at the atrial caval junction. Atelectatic change in the right midlung and left lower lung. There is no demonstrated pleural abnormality. Cardiomegaly. Right atrial and ventricular pacemaker in good position. Normal visualized pulmonary arteries. There is atherosclerotic calcification of the aortic arch with tortuosity. Normal visualized ribs, clavicles, and shoulders. There is no demonstrated abnormality of the visualized soft tissue structures of the upper abdomen. RAD/CXR for Line Placement IMPRESSION: Right central venous catheter ends at the atriocaval junction without complication of line placement. Mild atelectatic changes in the right middle lung zone and left lung base. Mild cardiomegaly with right atrial and ventricular pacemaker in good position. Electronically Signed: Georgia Myers MD at 17:56 EDT , Service support ,
--- NOTE | 2018-03-25 17:52 | PCM.OP.BLANK ---
Problem List (1) Septic shock Status: Acute (2) UTI (urinary tract infection) Status: Acute Operative Report Date of Procedure: 03/25/18 Procedure right IJ triple-lumen catheter Reason is for septic shock refractory to IV fluids and potential for pressor needs Consent was obtained to the patient and her . Risks were explained including blood loss and pneumothorax. They agreed to proceed. Description: Areas first to visualize with ultrasound guidance to identify the right internal jugular. Then the area was cleaned and prepped in sterile fashion. Using ultrasound guidance the the area to be cannulated was first locally anesthetized with local lysed lidocaine. Then using a modified Seldinger technique guidewire was advanced and then triple-lumen catheter was advanced over the guidewire and guidewire removed. All ports joanne and flushed equally. The catheter was then sutured in place. Follow-up x-ray shows no pneumothorax and at the just above the left atrium. Estimated blood loss was partially 5 cc. Patient tolerated the procedures and asked not to be told the steps as are being performed. Code Visit Procedures: [id number] Insert Non-tunnel CV Cath
[2018-03-25 19:42] LABS: Reflex Lactate? Y
[2018-03-25] MEDS: Tolterodine Tartrate 2 MG CAP.SA PO (22:03)
[2018-03-25] MEDS: Fenofibrate 145 MG Tablet PO (22:04)
[2018-03-25] MEDS: Atorvastatin Calcium 20 MG Tablet PO (22:04)
[2018-03-25] MEDS: Mirtazapine 15 MG Tablet 45 MG PO (22:05)
[2018-03-25] MEDS: Lacosamide 100 MG Tablet 200 MG PO (22:10)
[2018-03-25 22:21] LABS: Bedside Glucose 227 mg/dL (70-110)
[2018-03-26] VITALS (48 sets, daily range): BP systolic 79–138; BP diastolic 39–80; PULSE 59–71; RESP 13–28; TEMP 36.4–36.9; O2SAT 85–98
[2018-03-26] MEDS: Vancomycin IV 500 MG/100 ML BAG 100 MG IV ×2 (03:53→17:41)
[2018-03-26] MEDS: CHLORHEXIDINE GLUC 2% CLOTH 1 EACH TOWELETTE TOPICAL (03:53)
[2018-03-26] MEDS: 0.9% NaCl Peripheral Flush Adult/Peds IV ×2 (03:54→23:57)
[2018-03-26] MEDS: Ondansetron 4 MG/2 ML Vial IV ×2 (03:58→23:56)
--- NOTE | 2018-03-26 04:00 | RAD_ITS ---
STUDY: X-RAY - ABDOMEN/PELVIS REASON FOR EXAM: Female, 68 years old. Nausea and vomiting TECHNIQUE: Two AP supine views of the abdomen and pelvis. COMPARISON: None. FINDINGS: Normal visualized lung bases. There is a paralytic ileus of the small intestine with mild gaseous distention. There is no demonstrated free abdominal air. The visualized liver, spleen and kidneys are grossly normal in size and morphology. Normal soft tissue structures. Normal visualized osseous structures. RAD/Abdomen Single View (Portable) IMPRESSION: Small bowel ileus. Electronically Signed: Tirso Ovalle DO at 5:09 EDT , Service support ,
[2018-03-26 04:11] LABS: Hematocrit 33.7 % (37-47); Hemoglobin 10.6 g/dl (12.0-15.0); Mean Corp Hgb Conc 31.5 g/gl (32-36); Mean Corpuscular Hgb 27.7 pg (27.0-32.0); Mean Corpuscular Volume 88.2 fL (81-99); Mean Platelet Vol. 9.8 fl (6.2-12.0); Platelet Count 130 K/mm3 (150-450); RBC Distribution Width CV 15.6 % (11.6-14.6); RBC Distribution Width SD 49.2 fl (35.1-43.9); Red Blood Count 3.82 M/mm3 (4.2-5.4); White Blood Count 6.1 K/mm3 (4.4-11.0)
[2018-03-26 04:15] LABS: Scan Indicated on CBC? Y/N NO
[2018-03-26 04:27] LABS: Anion Gap 7 (5-15); BUN 19 mg/dL (7-18); Calcium,Total 7.1 mg/dL (8.5-10.1); Chloride 114 mmol/L (98-107); Creatinine, Serum 0.95 mg/dL (0.55-1.02); EST Glomerular Filtration Rate 62 mL/min (>60); Est Glom Filt Rate - Afr Amer 76 mL/min (>60); Estimated Creatinine Clearance 46.07 ml/min; Glucose 289 mg/dL (74-106); Potassium 4.6 mmol/L (3.5-5.1); Sodium Level 144 mmol/L (136-145)
[2018-03-26] MEDS: Piperacil/Tazobactam 3.375 GM/50 ML ML IV ×3 (06:09→21:39)
[2018-03-26] MEDS: 0.9% Normal Saline 1,000 ML 150 ML IV (06:09)
--- NOTE | 2018-03-26 06:42 | PCM.PN.INT ---
Subjective: Patient continued to have marginal blood pressures overnight. Patient did develop nausea with one episode of watery emesis. Patient continues to deny any abdominal pain. Patient is on room air. Patient is being initiated on Levophed this morning secondary to drop in blood pressures. Patient denies any productive cough. General: Alert, Cooperative, - - Mild distress. Obese. Follows commands and tracks appropriately. HEENT: Atraumatic, PERRLA, EOMI, Normocephalic, - - No scleral icterus or injection noted. Oral: Moist Mucosa, No Gingival or Mucosal Lesions/ Ulcerations Neck: Supple, No JVD, No Nodes, Trachea Midline, - - IJ is clean, dry and intact. Lungs: Clear to auscultation, Normal air movement, No rhonchi, No wheeze, No rales Cardiovascular: Regular rate, Regular Rhythm, Normal S1, Normal S2, No murmurs, No rub noted, No Gallop, - - Heart rate at 60 with paced rhythm on telemetry Abdomen: Bowel Sounds Present, Soft, Non Tender, Non-Distended, Obese Extremities: No clubbing, No cyanosis, No edema, Capillary Refill Less than 3 Seconds Skin: No rashes, No breakdown Musculoskeletal: No Tenderness to Palpation of Joints or Extremities, No Muscle Wasting Lymphatic: No Cervical, Supraclavicular, or Inguinal Adenopathy Neurological: Cranial nerves II-XII grossly intact, Neuro grossly intact, Sensory exam intact to light touch and pain Psych/Mental Status: Appropriate, Restless Vital Signs Temp Pulse Resp BP Pulse Ox 36.9 C 60 20 H 85/43 L 92 03/26/18 04:00 03/26/18 04:15 03/26/18 04:15 03/26/18 06:20 03/26/18 04:15 Oxygen Flow Rate (L/min) 2 Oxygen Delivery Method Room Air Weight: 85.7 kg Body Mass Index (BMI) 33.8 Intake and Output for Last 24 Hours 03/24/18 03/25/18 03/26/18 23:59 23:59 23:59 Intake Total 2518 / 2518 1143 / 1143 Output Total 500 / 500 Balance 2017 1143 / 1143 Labs (Last 48 Hours) 03/25/18 03/25/18 03/25/18 15:30 15:30 16:10 WBC RBC Hgb Hct MCV MCH MCHC RDW RDW Differential Plt Count MPV Sodium Potassium Chloride Carbon Dioxide Anion Gap BUN Creatinine Estim Creat Clear Calc Est GFR (MDRD) Af Amer Est GFR (MDRD) Non-Af BUN/Creatinine Ratio Glucose Lactic Acid 2.9 H Calcium MRSA (PCR) Negative POC Glucose 173 H 03/25/18 03/26/18 03/26/18 21:56 04:05 04:05 WBC 6.1 RBC 3.82 L Hgb 10.6 L Hct 33.7 L MCV 88.2 MCH 27.7 MCHC 31.5 L RDW 15.6 H RDW Differential 49.2 H Plt Count 130 L MPV 9.8 Sodium 144 Potassium 4.6 Chloride 114 H Carbon Dioxide 23.0 Anion Gap 7 BUN 19 H Creatinine 0.95 Estim Creat Clear Calc 46.07 Est GFR (MDRD) Af Amer 76 Est GFR (MDRD) Non-Af 62 BUN/Creatinine Ratio 20.0 Glucose 289 H Lactic Acid Calcium 7.1 L MRSA (PCR) POC Glucose 227 H Clinical Impression(s) from Imaging Studies Chest X-Ray 03/25/18 13:05 IMPRESSION: Degenerative changes, as described above. No demonstrated acute cardiopulmonary process. Electronically Signed: Darrell Prado MD at 14:04 EDT , Service support , Renal Ultrasound 03/25/18 16:16 IMPRESSION: Normal size of the right kidney. Multiple echogenic foci, potential renal stones. The largest measures approximately 1 cm in the upper pole. Negative for hydronephrosis. Normal size of the left kidney. Multiple tiny echogenic foci too small to measure, potential renal stones. Negative for hydronephrosis. Unremarkable urinary bladder. Bilateral ureteral jets are demonstrated. Electronically Signed: Georgia Myers MD at 23:40 EDT , Service support , Chest X-Ray 03/25/18 17:40 IMPRESSION: Right central venous catheter ends at the atriocaval junction without complication of line placement. Mild atelectatic changes in the right middle lung zone and left lung base. Mild cardiomegaly with right atrial and ventricular pacemaker in good position. Electronically Signed: Georgia Myers MD at 17:56 EDT , Service support , KUB X-Ray 03/26/18 04:00 IMPRESSION: Small bowel ileus. Electronically Signed: Tirso Ovalle DO at 5:09 EDT , Service support , Medical Necessity - Tobacco Use Smoking Status: Never smoker Tobacco Use: Non-smoker Assessment/Plan All Active Problems (Last Reviewed 03/25/18 @ 14:51 by Karel Max DO) Septic shock (Acute) UTI (urinary tract infection) (Acute) Vaginal bleeding (Acute) Febrile illness, acute (Acute) Pseudoseizure (Acute) Breakthrough seizure (Acute) RECOMMENDATIONS: 1. Await results of smith culture, continue antibiotics for now 2. Replete calcium 3. Await renal ultrasound 4. Wean oxygen as tolerated 5. Possible placement of NG tube for gastric decompression 6. Initiate Levophed therapy IMPRESSIONS: 1. Septic shock secondary to possible UTI Source of sepsis is unclear at this time. Patient does report a history of kidney stone, but urinalysis is not very significant. That being said, this may indicate a partially treated infection given recent Macrobid. Agree with healthcare associated infection antibiotics. Smith cultures are still pending, but patient did have significant fever on presentation. Renal ultrasound has been ordered. Levophed will be added given patient's significant fluid intake. Decrease in hemoglobin likely secondary to volume resuscitation. 2. Metabolic encephalopathy Patient appears to be responding appropriately at this time. Patient is complaining of nausea, but following commands and awaking appropriately. 3. Diabetes mellitus type 2 Consider discontinuation of home medications. Metformin has been associated with lactic acidosis. Patient should be placed on sliding scale insulin. Continue to monitor blood sugars every 6 hours. 4. Ileus/hypocalcemia Unclear etiology at this time. Patient's ileus may be secondary to hypocalcemia. Calcium repletion has been ordered. May need to place an NG tube for gastric decompression if this were to persist. Patient is not reporting any abdominal pain, so will hold off on CT of the abdomen at this time. 5. Hyperlipidemia/tachybradycardia syndrome/A. fib/questionable seizure disorder Complicates care, management, recovery and prognosis. Cycle cardiac enzymes. Continue with telemetry monitoring. TIME: 32 minutes critical care time spent addressing patient's septic shock, metabolic encephalopathy, diabetes, review of all data and collaboration with care team. (5:30 AM to 6:30 AM) Code Visit 9xxxx: [id number] Critical care first hour
--- NOTE | 2018-03-26 06:48 | PN_ITS ---
Subjective: Patient continued to have marginal blood pressures overnight. Patient did develop nausea with one episode of watery emesis. Patient continues to deny any abdominal pain. Patient is on room air. Patient is being initiated on Levophed this morning secondary to drop in blood pressures. Patient denies any productive cough. General: Alert, Cooperative, - - Mild distress. Obese. Follows commands and tracks appropriately. HEENT: Atraumatic, PERRLA, EOMI, Normocephalic, - - No scleral icterus or injection noted. Oral: Moist Mucosa, No Gingival or Mucosal Lesions/ Ulcerations Neck: Supple, No JVD, No Nodes, Trachea Midline, - - IJ is clean, dry and intact. Lungs: Clear to auscultation, Normal air movement, No rhonchi, No wheeze, No rales Cardiovascular: Regular rate, Regular Rhythm, Normal S1, Normal S2, No murmurs, No rub noted, No Gallop, - - Heart rate at 60 with paced rhythm on telemetry Abdomen: Bowel Sounds Present, Soft, Non Tender, Non-Distended, Obese Extremities: No clubbing, No cyanosis, No edema, Capillary Refill Less than 3 Seconds Skin: No rashes, No breakdown Musculoskeletal: No Tenderness to Palpation of Joints or Extremities, No Muscle Wasting Lymphatic: No Cervical, Supraclavicular, or Inguinal Adenopathy Neurological: Cranial nerves II-XII grossly intact, Neuro grossly intact, Sensory exam intact to light touch and pain Psych/Mental Status: Appropriate, Restless Vital Signs Temp Pulse Resp BP Pulse Ox 36.9 C 60 20 H 85/43 L 92 03/26/18 04:00 03/26/18 04:15 03/26/18 04:15 03/26/18 06:20 03/26/18 04:15 Oxygen Flow Rate (L/min) 2 Oxygen Delivery Method Room Air Weight: 85.7 kg Body Mass Index (BMI) 33.8 Intake and Output for Last 24 Hours 03/24/18 03/25/18 03/26/18 23:59 23:59 23:59 Intake Total 2518 / 2518 1143 / 1143 Output Total 500 / 500 Balance 2017 1143 / 1143 Labs (Last 48 Hours) 03/25/18 03/25/18 03/25/18 15:30 15:30 16:10 WBC RBC Hgb Hct MCV MCH MCHC RDW RDW Differential Plt Count MPV Sodium Potassium Chloride Carbon Dioxide Anion Gap BUN Creatinine Estim Creat Clear Calc Est GFR (MDRD) Af Amer Est GFR (MDRD) Non-Af BUN/Creatinine Ratio Glucose Lactic Acid 2.9 H Calcium MRSA (PCR) Negative POC Glucose 173 H 03/25/18 03/26/18 03/26/18 21:56 04:05 04:05 WBC 6.1 RBC 3.82 L Hgb 10.6 L Hct 33.7 L MCV 88.2 MCH 27.7 MCHC 31.5 L RDW 15.6 H RDW Differential 49.2 H Plt Count 130 L MPV 9.8 Sodium 144 Potassium 4.6 Chloride 114 H Carbon Dioxide 23.0 Anion Gap 7 BUN 19 H Creatinine 0.95 Estim Creat Clear Calc 46.07 Est GFR (MDRD) Af Amer 76 Est GFR (MDRD) Non-Af 62 BUN/Creatinine Ratio 20.0 Glucose 289 H Lactic Acid Calcium 7.1 L MRSA (PCR) POC Glucose 227 H Clinical Impression(s) from Imaging Studies Chest X-Ray 03/25/18 13:05 IMPRESSION: Degenerative changes, as described above. No demonstrated acute cardiopulmonary process. Electronically Signed: Darrell Prado MD at 14:04 EDT , Service support , Renal Ultrasound 03/25/18 16:16 IMPRESSION: Normal size of the right kidney. Multiple echogenic foci, potential renal stones. The largest measures approximately 1 cm in the upper pole. Negative for hydronephrosis. Normal size of the left kidney. Multiple tiny echogenic foci too small to measure, potential renal stones. Negative for hydronephrosis. Unremarkable urinary bladder. Bilateral ureteral jets are demonstrated. Electronically Signed: Georgia Myers MD at 23:40 EDT , Service support , Chest X-Ray 03/25/18 17:40 IMPRESSION: Right central venous catheter ends at the atriocaval junction without complication of line placement. Mild atelectatic changes in the right middle lung zone and left lung base. Mild cardiomegaly with right atrial and ventricular pacemaker in good position. Electronically Signed: Georgia Myers MD at 17:56 EDT , Service support , KUB X-Ray 03/26/18 04:00 IMPRESSION: Small bowel ileus. Electronically Signed: Tirso Ovalle DO at 5:09 EDT , Service support , Medical Necessity - Tobacco Use Smoking Status: Never smoker Tobacco Use: Non-smoker Assessment/Plan All Active Problems (Last Reviewed 03/25/18 @ 14:51 by Karel Max DO) Septic shock (Acute) UTI (urinary tract infection) (Acute) Vaginal bleeding (Acute) Febrile illness, acute (Acute) Pseudoseizure (Acute) Breakthrough seizure (Acute) RECOMMENDATIONS: 1. Await results of smith culture, continue antibiotics for now 2. Replete calcium 3. Await renal ultrasound 4. Wean oxygen as tolerated 5. Possible placement of NG tube for gastric decompression 6. Initiate Levophed therapy IMPRESSIONS: 1. Septic shock secondary to possible UTI Source of sepsis is unclear at this time. Patient does report a history of kidney stone, but urinalysis is not very significant. That being said, this may indicate a partially treated infection given recent Macrobid. Agree with healthcare associated infection antibiotics. Smith cultures are still pending, but patient did have significant fever on presentation. Renal ultrasound has been ordered. Levophed will be added given patient's significant fluid intake. Decrease in hemoglobin likely secondary to volume resuscitation. 2. Metabolic encephalopathy Patient appears to be responding appropriately at this time. Patient is complaining of nausea, but following commands and awaking appropriately. 3. Diabetes mellitus type 2 Consider discontinuation of home medications. Metformin has been associated with lactic acidosis. Patient should be placed on sliding scale insulin. Continue to monitor blood sugars every 6 hours. 4. Ileus/hypocalcemia Unclear etiology at this time. Patient's ileus may be secondary to hypocalcemia. Calcium repletion has been ordered. May need to place an NG tube for gastric decompression if this were to persist. Patient is not reporting any abdominal pain, so will hold off on CT of the abdomen at this time. 5. Hyperlipidemia/tachybradycardia syndrome/A. fib/questionable seizure disorder Complicates care, management, recovery and prognosis. Cycle cardiac enzymes. Continue with telemetry monitoring. TIME: 32 minutes critical care time spent addressing patient's septic shock, metabolic encephalopathy, diabetes, review of all data and collaboration with care team. (5:30 AM to 6:30 AM) Code Visit 9xxxx: [id number] Critical care first hour
[2018-03-26] MEDS: Insulin Lispro 100 UNIT/ML INSULN.PEN SQ ×3 (08:22→17:40)
[2018-03-26] MEDS: Enoxaparin 40 MG/0.4 ML Syringe SC (08:23)
[2018-03-26] MEDS: LINAGLIPTIN 5 MG TABLET PO (08:23)
[2018-03-26] MEDS: Gabapentin 300 MG Capsule PO ×3 (08:23→17:41)
[2018-03-26 08:30] LABS: Bedside Glucose 281 mg/dL (70-110)
--- NOTE | 2018-03-26 09:00 | PCM.PN.HOSP ---
Patient Problems: Active and Suspected Problems (Last Reviewed 03/25/18 @ 14:51 by Karel Max DO) Septic shock (Acute) UTI (urinary tract infection) (Acute) Subjective: Patient was seen and examined. She is off pressors at the moment in ICU. Complains of some nausea and an episode of vomiting this morning. Levophed was switched of early part of this morning. Vitals are stable. T max 102.5. BP remains borderline. Vitals/I&O's: Vital Signs Temp Pulse Resp BP Pulse Ox 98.5 F 60 19 H 119/55 L 97 03/26/18 04:00 03/26/18 07:33 03/26/18 06:45 03/26/18 06:45 03/26/18 06:45 Oxygen Flow Rate (L/min) 2 Oxygen Delivery Method Nasal Cannula Weight: 85.7 kg Body Mass Index (BMI) 33.8 Intake and Output for Last 24 Hours 03/24/18 03/25/18 03/26/18 23:59 23:59 23:59 Intake Total 2518 / 2518 1143 / 1143 Output Total 500 / 500 Balance 2017 1143 / 1143 General: Alert, Oriented x3, Cooperative, No apparent distress HEENT: Atraumatic, PERRLA, EOMI, Normocephalic Oral: Moist Mucosa Neck: Supple, No JVD, Negative Carotid Bruits Lungs: Clear to auscultation, Normal air movement Cardiovascular: Regular rate, Regular Rhythm, Normal S1, Normal S2, No murmurs Abdomen: Bowel Sounds Present, Soft, Non Tender, Non-Distended, No Hepato-splenomegaly Extremities: No edema Skin: No rashes, No breakdown Musculoskeletal: No Tenderness to Palpation of Joints or Extremities Lymphatic: No Cervical, Supraclavicular, or Inguinal Adenopathy Neurological: Cranial nerves II-XII grossly intact Psych/Mental Status: Normal Affect, Appropriate Laboratory Results 03/25/18 15:30: Lactic Acid 2.9 H 03/25/18 15:30: MRSA (PCR) Negative 03/25/18 16:10: POC Glucose 173 H 03/25/18 21:56: POC Glucose 227 H 03/26/18 04:05: Sodium 144, Potassium 4.6, Chloride 114 H, Carbon Dioxide 23.0, Anion Gap 7, BUN 19 H, Creatinine 0.95, Estim Creat Clear Calc 46.07, Est GFR (MDRD) Af Amer 76, Est GFR (MDRD) Non-Af 62, BUN/Creatinine Ratio 20.0, Glucose 289 H, Calcium 7.1 L 03/26/18 04:05: WBC 6.1, RBC 3.82 L, Hgb 10.6 L, Hct 33.7 L, MCV 88.2, MCH 27.7, MCHC 31.5 L, RDW 15.6 H, RDW Differential 49.2 H, Plt Count 130 L, MPV 9.8 03/26/18 08:19: POC Glucose 281 H Current Medications Atorvastatin Calcium (Lipitor) 20 mg PO QHS [facility] Last Admin: 03/25/18 22:04 Dose: 20 mg Chlorhexidine Gluconate () 1 each TOPICAL DAILY [facility] Last Admin: 03/26/18 03:53 Dose: 1 each Dextrose (D50w Syringe) 0 gm IV X1 PRN; Protocol PRN Reason: Hypoglycemia Enoxaparin Sodium (Lovenox) 40 mg SC DAILY@1000 [facility] Last Admin: 03/26/18 08:23 Dose: 40 mg Fenofibrate (Tricor) 145 mg PO DAILY@2200 [facility] Last Admin: 03/25/18 22:04 Dose: 145 mg Gabapentin (Neurontin) 300 mg PO TIDCM [facility] Last Admin: 03/26/18 08:23 Dose: 300 mg Glucagon () 1 mg IM .X1 PRN PRN Reason: Hypoglycemia Hydroxyzine HCl (Atarax Tablet) 10 mg PO Q8H PRN PRN PRN Reason: ITCHING Piperacillin Sod/Tazobactam Sod (Zosyn) 3.375 gm in 50 mls @ 12.5 mls/hr IV Q8 [facility] Last Admin: 03/26/18 06:09 Dose: 12.5 mls/hr Vancomycin HCl () 500 mg in 100 mls @ 100 mls/hr IV Q12H [facility] Last Admin: 03/26/18 03:53 Dose: 100 mls/hr Norepinephrine Bitartrate 8 mg (/ Dextrose) 258 mls @ 9.67 mls/hr IV .[id number] [facility] PRN Reason: 5 MCG/MIN Last Admin: 03/26/18 03:53 Dose: Not Given Sodium Chloride () 1,000 mls @ 75 mls/hr IV .[id number] [facility] Last Admin: 03/26/18 08:15 Dose: Not Given Insulin Human Lispro (Humalog Kwikpen (Bkc)) 0 unit SQ TIDAC [facility] PRN Reason: Protocol Last Admin: 03/26/18 08:22 Dose: 4 unit Lacosamide (Vimpat) 200 mg PO BID [facility] Last Admin: 03/25/18 22:10 Dose: 200 mg Linagliptin (Tradjenta) 5 mg PO DAILY [facility] Last Admin: 03/26/18 08:23 Dose: 5 mg Magnesium Hydroxide (Milk Of Magnesia) 30 ml PO DAILY PRN PRN PRN Reason: Constipation Mirtazapine (Remeron) 45 mg PO QHS [facility] Last Admin: 03/25/18 22:05 Dose: 45 mg Ondansetron HCl (Zofran) 4 mg IV Q6H PRN PRN PRN Reason: NAUSEA Last Admin: 03/26/18 03:58 Dose: 4 mg Sodium Chloride () 5 - 30 ml IV UD PRN PRN Reason: SALINE FLUSH Last Admin: 03/26/18 03:54 Dose: 20 ml Tolterodine Tartrate (Detrol La) 2 mg PO HS [facility] Last Admin: 03/25/18 22:03 Dose: 2 mg Medical Necessity - Tobacco Use Smoking Status: Never smoker Tobacco Use: Non-smoker Assessment/Plan All Active Problems (Last Reviewed 03/25/18 @ 14:51 by Karel Max DO) Septic shock (Acute) UTI (urinary tract infection) (Acute) Vaginal bleeding (Acute) Febrile illness, acute (Acute) Pseudoseizure (Acute) Breakthrough seizure (Acute) 68-year-old female with past medical history of questionable seizure disorder, hypertension, hyperlipidemia, type II DM, tachybradycardia syndrome who comes in with complaints of fever and lethargy and has been managed as septic shock secondary to the possible UTI. 1. Septic shock secondary to possible UTI, recently treated for UTI. Patient's admitting UA was slightly cloudy, nitrite negative leukocyte esterase positive, WBC count of 10-25 He was on levo fed for a short time, off Levophed at the moment, will continue to monitor vitals, Started on IV vancomycin and Zosyn, Blood and urine cultures are pending. We will hold blood pressure medications and monitor 2. Episode of nausea and vomiting this morning, KUB shows small bowel areas, she will be getting the NG tube and will manage expectantly 3. Hyperglycemia in a type II DM, blood sugars are uncontrolled, on Tradjenta and insulin sliding scale, medium dose, would increase to medium to high dose insulin sliding scale, continue on Tradjenta, continue with Accu-Cheks 4. Hyperlipidemia, on statin and fenofibrate 5. Tachybradycardia syndrome status post pacemaker 6. Acute metabolic encephalopathy, resolved, patient is at lying, alert oriented ?3 7. DVT PPx- Lovenox SC Code Visit Inpatient E&M: 18548 Subs Hosp L3
--- NOTE | 2018-03-26 09:22 | PN_ITS ---
Patient Problems: Active and Suspected Problems (Last Reviewed 03/25/18 @ 14:51 by Karel Max DO) Septic shock (Acute) UTI (urinary tract infection) (Acute) Subjective: Patient was seen and examined. She is off pressors at the moment in ICU. Complains of some nausea and an episode of vomiting this morning. Levophed was switched of early part of this morning. Vitals are stable. T max 102.5. BP remains borderline. Vitals/I&O's: Vital Signs Temp Pulse Resp BP Pulse Ox 98.5 F 60 19 H 119/55 L 97 03/26/18 04:00 03/26/18 07:33 03/26/18 06:45 03/26/18 06:45 03/26/18 06:45 Oxygen Flow Rate (L/min) 2 Oxygen Delivery Method Nasal Cannula Weight: 85.7 kg Body Mass Index (BMI) 33.8 Intake and Output for Last 24 Hours 03/24/18 03/25/18 03/26/18 23:59 23:59 23:59 Intake Total 2518 / 2518 1143 / 1143 Output Total 500 / 500 Balance 2017 1143 / 1143 General: Alert, Oriented x3, Cooperative, No apparent distress HEENT: Atraumatic, PERRLA, EOMI, Normocephalic Oral: Moist Mucosa Neck: Supple, No JVD, Negative Carotid Bruits Lungs: Clear to auscultation, Normal air movement Cardiovascular: Regular rate, Regular Rhythm, Normal S1, Normal S2, No murmurs Abdomen: Bowel Sounds Present, Soft, Non Tender, Non-Distended, No Hepato- splenomegaly Extremities: No edema Skin: No rashes, No breakdown Musculoskeletal: No Tenderness to Palpation of Joints or Extremities Lymphatic: No Cervical, Supraclavicular, or Inguinal Adenopathy Neurological: Cranial nerves II-XII grossly intact Psych/Mental Status: Normal Affect, Appropriate Laboratory Results 03/25/18 15:30: Lactic Acid 2.9 H 03/25/18 15:30: MRSA (PCR) Negative 03/25/18 16:10: POC Glucose 173 H 03/25/18 21:56: POC Glucose 227 H 03/26/18 04:05: Sodium 144, Potassium 4.6, Chloride 114 H, Carbon Dioxide 23.0, Anion Gap 7, BUN 19 H, Creatinine 0.95, Estim Creat Clear Calc 46.07, Est GFR ( MDRD) Af Amer 76, Est GFR (MDRD) Non-Af 62, BUN/Creatinine Ratio 20.0, Glucose 289 H, Calcium 7.1 L 03/26/18 04:05: WBC 6.1, RBC 3.82 L, Hgb 10.6 L, Hct 33.7 L, MCV 88.2, MCH 27.7 , MCHC 31.5 L, RDW 15.6 H, RDW Differential 49.2 H, Plt Count 130 L, MPV 9.8 03/26/18 08:19: POC Glucose 281 H Current Medications Atorvastatin Calcium (Lipitor) 20 mg PO QHS [facility] Last Admin: 03/25/18 22:04 Dose: 20 mg Chlorhexidine Gluconate () 1 each TOPICAL DAILY [facility] Last Admin: 03/26/18 03:53 Dose: 1 each Dextrose (D50w Syringe) 0 gm IV X1 PRN; Protocol PRN Reason: Hypoglycemia Enoxaparin Sodium (Lovenox) 40 mg SC DAILY@1000 [facility] Last Admin: 03/26/18 08:23 Dose: 40 mg Fenofibrate (Tricor) 145 mg PO DAILY@2200 [facility] Last Admin: 03/25/18 22:04 Dose: 145 mg Gabapentin (Neurontin) 300 mg PO TIDCM [facility] Last Admin: 03/26/18 08:23 Dose: 300 mg Glucagon () 1 mg IM .X1 PRN PRN Reason: Hypoglycemia Hydroxyzine HCl (Atarax Tablet) 10 mg PO Q8H PRN PRN PRN Reason: ITCHING Piperacillin Sod/Tazobactam Sod (Zosyn) 3.375 gm in 50 mls @ 12.5 mls/hr IV Q8 [facility] Last Admin: 03/26/18 06:09 Dose: 12.5 mls/hr Vancomycin HCl () 500 mg in 100 mls @ 100 mls/hr IV Q12H [facility] Last Admin: 03/26/18 03:53 Dose: 100 mls/hr Norepinephrine Bitartrate 8 mg (/ Dextrose) 258 mls @ 9.67 mls/hr IV .[id number] [facility] PRN Reason: 5 MCG/MIN Last Admin: 03/26/18 03:53 Dose: Not Given Sodium Chloride () 1,000 mls @ 75 mls/hr IV .[id number] [facility] Last Admin: 03/26/18 08:15 Dose: Not Given Insulin Human Lispro (Humalog Kwikpen (Bkc)) 0 unit SQ TIDAC [facility] PRN Reason: Protocol Last Admin: 03/26/18 08:22 Dose: 4 unit Lacosamide (Vimpat) 200 mg PO BID [facility] Last Admin: 03/25/18 22:10 Dose: 200 mg Linagliptin (Tradjenta) 5 mg PO DAILY [facility] Last Admin: 03/26/18 08:23 Dose: 5 mg Magnesium Hydroxide (Milk Of Magnesia) 30 ml PO DAILY PRN PRN PRN Reason: Constipation Mirtazapine (Remeron) 45 mg PO QHS [facility] Last Admin: 03/25/18 22:05 Dose: 45 mg Ondansetron HCl (Zofran) 4 mg IV Q6H PRN PRN PRN Reason: NAUSEA Last Admin: 03/26/18 03:58 Dose: 4 mg Sodium Chloride () 5 - 30 ml IV UD PRN PRN Reason: SALINE FLUSH Last Admin: 03/26/18 03:54 Dose: 20 ml Tolterodine Tartrate (Detrol La) 2 mg PO HS [facility] Last Admin: 03/25/18 22:03 Dose: 2 mg Medical Necessity - Tobacco Use Smoking Status: Never smoker Tobacco Use: Non-smoker Assessment/Plan All Active Problems (Last Reviewed 03/25/18 @ 14:51 by Karel Max DO) Septic shock (Acute) UTI (urinary tract infection) (Acute) Vaginal bleeding (Acute) Febrile illness, acute (Acute) Pseudoseizure (Acute) Breakthrough seizure (Acute) 68-year-old female with past medical history of questionable seizure disorder, hypertension, hyperlipidemia, type II DM, tachybradycardia syndrome who comes in with complaints of fever and lethargy and has been managed as septic shock secondary to the possible UTI. 1. Septic shock secondary to possible UTI, recently treated for UTI. Patient's admitting UA was slightly cloudy, nitrite negative leukocyte esterase positive, WBC count of 10-25 He was on levo fed for a short time, off Levophed at the moment, will continue to monitor vitals, Started on IV vancomycin and Zosyn, Blood and urine cultures are pending. We will hold blood pressure medications and monitor 2. Episode of nausea and vomiting this morning, KUB shows small bowel areas, she will be getting the NG tube and will manage expectantly 3. Hyperglycemia in a type II DM, blood sugars are uncontrolled, on Tradjenta and insulin sliding scale, medium dose, would increase to medium to high dose insulin sliding scale, continue on Tradjenta, continue with Accu-Cheks 4. Hyperlipidemia, on statin and fenofibrate 5. Tachybradycardia syndrome status post pacemaker 6. Acute metabolic encephalopathy, resolved, patient is at lying, alert oriented ?3 7. DVT PPx- Lovenox SC Code Visit Inpatient E&M: 86871 Subs Hosp L3
[2018-03-26] MEDS: Lacosamide 100 MG Tablet 200 MG PO ×2 (09:56→21:39)
[2018-03-26 11:31] LABS: Magnesium 1.2 mg/dL (1.6-2.6)
[2018-03-26 12:06] LABS: Bedside Glucose 213 mg/dL (70-110)
--- NOTE | 2018-03-26 12:38 | CASEMGMT ---
This RN CM to ICU to complete CM assessment and is not at bedside at this time and pt is sleeping without distress. Chart review completed at this time. Pt admitted for Septic shock with recent UTI, pt only had 1 dose antibx outpt. Please see CM assessment completed by this RN CM on 10/07/17. This RN CM attempted to reach via phone without success at this time. Message left for to call this RN CM back. CM to follow up with pt/ on Wednesday03/28/18 for discharge planning/needs. does normally answer most questions for due to language barrier. SStaten RN CM
[2018-03-26 13:48] LABS: Anion Gap 7 (5-15); BUN 16 mg/dL (7-18); BUN/Creat Ratio 22.9 RATIO (10-20); Calcium,Total 7.7 mg/dL (8.5-10.1); Chloride 113 mmol/L (98-107); EST Glomerular Filtration Rate 89 mL/min (>60); Est Glom Filt Rate - Afr Amer 108 mL/min (>60); Estimated Creatinine Clearance 43.77 ml/min; Glucose 226 mg/dL (74-106); Magnesium 1.4 mg/dL (1.6-2.6); Phosphorus 2.2 mg/dL (2.5-4.9); Potassium 4.1 mmol/L (3.5-5.1); Sodium Level 143 mmol/L (136-145)
[2018-03-26 18:10] LABS: Bedside Glucose 150 mg/dL (70-110)
[2018-03-26] MEDS: 0.9% Normal Saline 1,000 ML 75 ML IV (21:39)
[2018-03-26] MEDS: Atorvastatin Calcium 20 MG Tablet PO (21:39)
[2018-03-26] MEDS: Mirtazapine 15 MG Tablet 45 MG PO (21:39)
[2018-03-26] MEDS: Tolterodine Tartrate 2 MG CAP.SA PO (21:39)
[2018-03-26] MEDS: Fenofibrate 145 MG Tablet PO (21:39)
[2018-03-26 21:51] LABS: Bedside Glucose 138 mg/dL (70-110)
[2018-03-27] VITALS (20 sets, daily range): BP systolic 124–167; BP diastolic 65–88; PULSE 61–70; RESP 12–17; TEMP 36.1–36.7; O2SAT 92–97
[2018-03-27] MEDS: Vancomycin IV 500 MG/100 ML BAG 100 MG IV (03:39)
[2018-03-27 04:21] LABS: Absolute Lymphocyte Count 0.98 X10^3/ul (0.83-4.51); Basophil# 0.01 X10^3/uL; Basophil% 0.2 % (0-1); Eosinophil# 0.11 X10^3/uL; Eosinophils% 2.5 % (0-5); Hematocrit 33.2 % (37-47); Hemoglobin 10.4 g/dl (12.0-15.0); Lymphocyte # 0.98 X10^3/ul (4.0); Mean Corp Hgb Conc 31.3 g/gl (32-36); Mean Corpuscular Hgb 27.3 pg (27.0-32.0); Mean Corpuscular Volume 87.1 fL (81-99); Monocyte# 0.34 X10^3/uL; Monocyte% 7.6 % (0-10); Neutrophil % 67.5 % (47-70); Platelet Count 112 K/mm3 (150-450); RBC Distribution Width CV 15.4 % (11.6-14.6); RBC Distribution Width SD 48.4 fl (35.1-43.9); Red Blood Count 3.81 M/mm3 (4.2-5.4); White Blood Count 4.5 K/mm3 (4.4-11.0)
[2018-03-27 04:26] LABS: POSITIVE COUNT NO; POSITIVE DIFFERENTIAL NO; POSITIVE MORPHOLOGY NO
[2018-03-27 04:34] LABS: Anion Gap 8 (5-15); BUN 11 mg/dL (7-18); BUN/Creat Ratio 19.8 RATIO (10-20); Calcium,Total 7.3 mg/dL (8.5-10.1); Chloride 112 mmol/L (98-107); Creatinine, Serum 0.56 mg/dL (0.55-1.02); EST Glomerular Filtration Rate 116 mL/min (>60); Est Glom Filt Rate - Afr Amer 141 mL/min (>60); Estimated Creatinine Clearance 43.77 ml/min; Glucose 176 mg/dL (74-106); Magnesium 1.4 mg/dL (1.6-2.6); Phosphorus 1.9 mg/dL (2.5-4.9); Potassium 4.2 mmol/L (3.5-5.1); Sodium Level 143 mmol/L (136-145)
[2018-03-27] MEDS: Piperacil/Tazobactam 3.375 GM/50 ML ML IV ×3 (05:21→22:08)
--- NOTE | 2018-03-27 06:51 | PCM.PN.INT ---
Subjective: Patient did okay overnight. Patient continues to report nausea and did have one episode of emesis overnight. Patient continues to deny any abdominal pain. Patient has been passing gas, but no bowel movements were noted overnight. Blood pressure has improved significantly and no pressors have been required. Objective: Renal ultrasound shows multiple echogenic foci without hydronephrosis bilaterally. General: Alert, Oriented x3, Cooperative, No apparent distress, Well developed, Well nourished, - - Speaking in full sentences. HEENT: Atraumatic, PERRLA, EOMI, Normocephalic, - - No scleral icterus or injection noted. Oral: Moist Mucosa, No Gingival or Mucosal Lesions/ Ulcerations Neck: Supple, No JVD, No Nodes, Trachea Midline Lungs: No rhonchi, No wheeze, No rales, Diminished, - - Fair effort. Symmetric expansion. Cardiovascular: Regular rate, Regular Rhythm, Normal S1, Normal S2, No murmurs, No rub noted, No Gallop Abdomen: Bowel Sounds Present, Soft, Non Tender, Non-Distended, Obese Extremities: No clubbing, No cyanosis, No edema, Capillary Refill Less than 3 Seconds Skin: No rashes, No breakdown Musculoskeletal: No Tenderness to Palpation of Joints or Extremities Lymphatic: No Cervical, Supraclavicular, or Inguinal Adenopathy Neurological: Cranial nerves II-XII grossly intact, Neuro grossly intact, Motor Exam 5/5 strength throughout Psych/Mental Status: Alert and oriented to time, place, person, mood and affect Vital Signs Temp Pulse Resp BP Pulse Ox 36.7 C 65 14 139/69 H 95 03/27/18 00:00 03/27/18 06:00 03/27/18 06:00 03/27/18 06:00 03/27/18 06:00 Oxygen Flow Rate (L/min) 2 Oxygen Delivery Method Nasal Cannula Weight: 85.3 kg Body Mass Index (BMI) 33.8 Intake and Output for Last 24 Hours 03/25/18 03/26/18 03/27/18 23:59 23:59 23:59 Intake Total 2518 / 2518 2723 / 2723 977.7 / 977.7 Output Total 500 / 500 Balance 2017 2723 / 2723 977.7 / 977.7 Labs (Last 48 Hours) 03/25/18 03/25/18 03/25/18 15:30 15:30 16:10 WBC RBC Hgb Hct MCV MCH MCHC RDW RDW Differential Plt Count MPV Immature Gran % (Auto) Neut % (Auto) Lymph % (Auto) [place] % (Auto) Eos % (Auto) Baso % (Auto) Absolute Neuts (auto) Absolute Lymphs (auto) Total Counted Sodium Potassium Chloride Carbon Dioxide Anion Gap BUN Creatinine Estim Creat Clear Calc Est GFR (MDRD) Af Amer Est GFR (MDRD) Non-Af BUN/Creatinine Ratio Glucose Lactic Acid 2.9 H Calcium Phosphorus Magnesium MRSA (PCR) Negative POC Glucose 173 H 03/25/18 03/26/18 03/26/18 21:56 04:05 04:05 WBC 6.1 RBC 3.82 L Hgb 10.6 L Hct 33.7 L MCV 88.2 MCH 27.7 MCHC 31.5 L RDW 15.6 H RDW Differential 49.2 H Plt Count 130 L MPV 9.8 Immature Gran % (Auto) Neut % (Auto) Lymph % (Auto) [place] % (Auto) Eos % (Auto) Baso % (Auto) Absolute Neuts (auto) Absolute Lymphs (auto) Total Counted Sodium 144 Potassium 4.6 Chloride 114 H Carbon Dioxide 23.0 Anion Gap 7 BUN 19 H Creatinine 0.95 Estim Creat Clear Calc 46.07 Est GFR (MDRD) Af Amer 76 Est GFR (MDRD) Non-Af 62 BUN/Creatinine Ratio 20.0 Glucose 289 H Lactic Acid Calcium 7.1 L Phosphorus Magnesium MRSA (PCR) POC Glucose 227 H 03/26/18 03/26/18 03/26/18 04:05 08:19 11:56 WBC RBC Hgb Hct MCV MCH MCHC RDW RDW Differential Plt Count MPV Immature Gran % (Auto) Neut % (Auto) Lymph % (Auto) [place] % (Auto) Eos % (Auto) Baso % (Auto) Absolute Neuts (auto) Absolute Lymphs (auto) Total Counted Sodium Potassium Chloride Carbon Dioxide Anion Gap BUN Creatinine Estim Creat Clear Calc Est GFR (MDRD) Af Amer Est GFR (MDRD) Non-Af BUN/Creatinine Ratio Glucose Lactic Acid Calcium Phosphorus Magnesium 1.2 L MRSA (PCR) POC Glucose 281 H 213 H 07/28/18 07/28/18 07/28/18 13:20 17:39 21:47 WBC RBC Hgb Hct MCV MCH MCHC RDW RDW Differential Plt Count MPV Immature Gran % (Auto) Neut % (Auto) Lymph % (Auto) [place] % (Auto) Eos % (Auto) Baso % (Auto) Absolute Neuts (auto) Absolute Lymphs (auto) Total Counted Sodium 143 Potassium 4.1 Chloride 113 H Carbon Dioxide 23.0 Anion Gap 7 BUN 16 Creatinine 0.70 Estim Creat Clear Calc 43.77 Est GFR (MDRD) Af Amer 108 Est GFR (MDRD) Non-Af 89 BUN/Creatinine Ratio 22.9 H Glucose 226 H Lactic Acid Calcium 7.7 L Phosphorus 2.2 L Magnesium 1.4 L MRSA (PCR) POC Glucose 150 H 138 H 03/27/18 03/27/18 03:50 03:50 WBC 4.5 RBC 3.81 L Hgb 10.4 L Hct 33.2 L MCV 87.1 MCH 27.3 MCHC 31.3 L RDW 15.4 H RDW Differential 48.4 H Plt Count 112 L MPV 10.0 Immature Gran % (Auto) 0.200 Neut % (Auto) 67.5 Lymph % (Auto) 22.0 [place] % (Auto) 7.6 Eos % (Auto) 2.5 Baso % (Auto) 0.2 Absolute Neuts (auto) 3.0 Absolute Lymphs (auto) 0.98 Total Counted Not Reportable Sodium 143 Potassium 4.2 Chloride 112 H Carbon Dioxide 23.0 Anion Gap 8 BUN 11 Creatinine 0.56 Estim Creat Clear Calc 43.77 Est GFR (MDRD) Af Amer 141 Est GFR (MDRD) Non-Af 116 BUN/Creatinine Ratio 19.8 Glucose 176 H Lactic Acid Calcium 7.3 L Phosphorus 1.9 L Magnesium 1.4 L MRSA (PCR) POC Glucose Medical Necessity - Tobacco Use Smoking Status: Never smoker Tobacco Use: Non-smoker Assessment/Plan All Active Problems (Last Reviewed 03/25/18 @ 14:51 by Karel Max DO) Septic shock (Acute) UTI (urinary tract infection) (Acute) Vaginal bleeding (Acute) Febrile illness, acute (Acute) Pseudoseizure (Acute) Breakthrough seizure (Acute) RECOMMENDATIONS: 1. Okay to narrow antibiotics if blood cultures come back negative 2. Replete electrolytes per orders 3. Symptomatic treatment for nausea 4. Wean oxygen as tolerated 5. Placement of NG tube for gastric decompression 6. Okay to leave the intensive care unit from my perspective IMPRESSIONS: 1. Septic shock secondary to probable UTI Patient's blood pressure is much improved. Urine culture has been negative, but this may be a false negative given previous antibiotic therapy. If blood cultures come back negative, patient can likely be narrowed on antibiotic spectrum. Renal ultrasound does show multiple stones present, but no hydronephrosis is noted. 2. Metabolic encephalopathy RESOLVED> patient appears to be responding appropriately at this time. Patient is complaining of nausea, but following commands and awaking appropriately. 3. Diabetes mellitus type 2 Consider discontinuation of home medications. Metformin has been associated with lactic acidosis. Patient should be placed on sliding scale insulin. Continue to monitor blood sugars every 6 hours given relative n.p.o. status. 4. Ileus/hypocalcemia/hypomagnesemia/hypophosphatemia Unclear etiology at this time. Patient only had one emesis over the last 24 hours. Patient does have multiple electrolyte abnormalities. Repletion has been ordered. Patient continues to deny abdominal pain, so no abdominal CT has been performed. Patient with another emesis while writing the note. Will place an NG tube for gastric decompression and bowel rest. 5. Hyperlipidemia/tachybradycardia syndrome/A. fib/questionable seizure disorder Complicates care, management, recovery and prognosis. Cycle cardiac enzymes. Continue with telemetry monitoring. Code Visit Inpatient E&M: [id number] [place] [id number]
--- NOTE | 2018-03-27 07:15 | RAD_ITS ---
STUDY: X-RAY - ABDOMEN/PELVIS REASON FOR EXAM: Female, 68 years old. Tube placement TECHNIQUE: Single AP view of the abdomen / pelvis. COMPARISON: March 26, 2018. FINDINGS: Lower lung opacities on the left with consolidation. Small bilateral pleural effusions. There is pacemaker device on the left. There is cardiac enlargement. Feeding tube extends to the stomach in the left upper quadrant. There is an unremarkable bowel gas pattern. There is no demonstrated free abdominal air. The visualized liver, spleen and kidneys are grossly normal in size and morphology. Normal soft tissue structures. Degenerative change of the visualized spine. RAD/Abdomen Single View (Portable) IMPRESSION: Feeding tube extends to the stomach in the left upper quadrant. Electronically Signed: Darrell Prado MD at 11:37 EDT , Service support ,
--- NOTE | 2018-03-27 07:20 | NURSING ---
Nasogastric tube inserted, verified with auscultation, aspiration, and xray. Connected to low intermittent wall suction with clear yellow content. Patient tolerated well.
[2018-03-27 07:25] LABS: Bedside Glucose 188 mg/dL (70-110)
[2018-03-27] MEDS: Ondansetron 4 MG/2 ML Vial IV ×2 (07:28→14:45)
[2018-03-27] MEDS: 0.9% NaCl Peripheral Flush Adult/Peds IV ×3 (07:28→17:35)
--- NOTE | 2018-03-27 07:49 | PCM.PN.HOSP ---
Patient Problems: Active and Suspected Problems (Last Reviewed 03/25/18 @ 14:51 by Karel Max DO) Septic shock (Acute) UTI (urinary tract infection) (Acute) Subjective: Patient was seen and examined. Had nausea but no vomiting overnight. No bowel movement. Has not passed gas. NG tube was passed this morning to intermittent suction. Patient is alert, oriented x3. Denies fever, chills, dizziness. Objective: Physical exam: General: Alert, Oriented x3, Cooperative, No apparent distress, NG tube in situ HEENT: Atraumatic, PERRLA, EOMI, Normocephalic Oral: Moist Mucosa Neck: Supple, No JVD, Negative Carotid Bruits Lungs: Clear to auscultation, Normal air movement Cardiovascular: Regular rate, Regular Rhythm, Normal S1, Normal S2, No murmurs Abdomen: Bowel Sounds Present, Soft, Non Tender, Non-Distended, No Hepato-splenomegaly Extremities: No edema Skin: No rashes, No breakdown Musculoskeletal: No Tenderness to Palpation of Joints or Extremities Lymphatic: No Cervical, Supraclavicular, or Inguinal Adenopathy Neurological: Cranial nerves II-XII grossly intact Psych/Mental Status: Normal Affect, Appropriate Vitals/I&O's: Vital Signs Temp Pulse Resp BP Pulse Ox 98.1 F 65 14 139/69 H 95 03/27/18 00:00 03/27/18 06:00 03/27/18 06:00 03/27/18 06:00 03/27/18 06:00 Oxygen Flow Rate (L/min) 2 Oxygen Delivery Method Nasal Cannula Weight: 85.3 kg Body Mass Index (BMI) 33.8 Intake and Output for Last 24 Hours 03/25/18 03/26/18 03/27/18 23:59 23:59 23:59 Intake Total 2518 / 2518 2723 / 2723 977.7 / 977.7 Output Total 500 / 500 Balance 2017 2723 / 2723 977.7 / 977.7 Laboratory Results 03/26/18 04:05: Magnesium 1.2 L 03/26/18 08:19: POC Glucose 281 H 03/26/18 11:56: POC Glucose 213 H 03/26/18 13:20: Sodium 143, Potassium 4.1, Chloride 113 H, Carbon Dioxide 23.0, Anion Gap 7, BUN 16, Creatinine 0.70, Estim Creat Clear Calc 43.77, Est GFR (MDRD) Af Amer 108, Est GFR (MDRD) Non-Af 89, BUN/Creatinine Ratio 22.9 H, Glucose 226 H, Calcium 7.7 L, Phosphorus 2.2 L, Magnesium 1.4 L 03/26/18 17:39: POC Glucose 150 H 03/26/18 21:47: POC Glucose 138 H 03/27/18 03:50: WBC 4.5, RBC 3.81 L, Hgb 10.4 L, Hct 33.2 L, MCV 87.1, MCH 27.3, MCHC 31.3 L, RDW 15.4 H, RDW Differential 48.4 H, Plt Count 112 L, MPV 10.0, Immature Gran % (Auto) 0.200, Neut % (Auto) 67.5, Lymph % (Auto) 22.0, [place] % (Auto) 7.6, Eos % (Auto) 2.5, Baso % (Auto) 0.2, Absolute Neuts (auto) 3.0, Absolute Lymphs (auto) 0.98, Total Counted Not Reportable 03/27/18 03:50: Sodium 143, Potassium 4.2, Chloride 112 H, Carbon Dioxide 23.0, Anion Gap 8, BUN 11, Creatinine 0.56, Estim Creat Clear Calc 43.77, Est GFR (MDRD) Af Amer 141, Est GFR (MDRD) Non-Af 116, BUN/Creatinine Ratio 19.8, Glucose 176 H, Calcium 7.3 L, Phosphorus 1.9 L, Magnesium 1.4 L 03/27/18 07:22: POC Glucose 188 H Current Medications Atorvastatin Calcium (Lipitor) 20 mg PO QHS [facility] Last Admin: 03/26/18 21:39 Dose: 20 mg Chlorhexidine Gluconate () 1 each TOPICAL DAILY [facility] Last Admin: 03/26/18 03:53 Dose: 1 each Dextrose (D50w Syringe) 0 gm IV X1 PRN; Protocol PRN Reason: Hypoglycemia Enoxaparin Sodium (Lovenox) 40 mg SC DAILY@1000 [facility] Last Admin: 03/26/18 08:23 Dose: 40 mg Fenofibrate (Tricor) 145 mg PO DAILY@2200 [facility] Last Admin: 03/26/18 21:39 Dose: 145 mg Gabapentin (Neurontin) 300 mg PO TIDCM [facility] Last Admin: 03/26/18 17:41 Dose: 300 mg Glucagon () 1 mg IM .X1 PRN PRN Reason: Hypoglycemia Hydroxyzine HCl (Atarax Tablet) 10 mg PO Q8H PRN PRN PRN Reason: ITCHING Piperacillin Sod/Tazobactam Sod (Zosyn) 3.375 gm in 50 mls @ 12.5 mls/hr IV Q8 [facility] Last Admin: 03/27/18 05:21 Dose: 12.5 mls/hr Sodium Chloride () 1,000 mls @ 75 mls/hr IV .[id number] [facility] Last Admin: 03/26/18 21:39 Dose: 75 mls/hr Magnesium Sulfate (4 Gm/100 Ml) 4 gm in 100 mls @ 25 mls/hr IV X1 ONE Stop: 03/27/18 09:49 Last Admin: 03/27/18 06:19 Dose: 25 mls/hr Sodium Phosphate 30 mm/ Sodium (Chloride) 260 mls @ 62.5 mls/hr IV X1 ONE Stop: 03/27/18 10:01 Last Admin: 03/27/18 06:19 Dose: 62.5 mls/hr Insulin Human Lispro (Humalog Kwikpen (Bkc)) 0 unit SQ TIDAC [facility] PRN Reason: Protocol Last Admin: 03/26/18 17:40 Dose: 2 u Lacosamide (Vimpat) 200 mg PO BID [facility] Last Admin: 03/26/18 21:39 Dose: 200 mg Linagliptin (Tradjenta) 5 mg PO DAILY [facility] Last Admin: 03/26/18 08:23 Dose: 5 mg Magnesium Hydroxide (Milk Of Magnesia) 30 ml PO DAILY PRN PRN PRN Reason: Constipation Mirtazapine (Remeron) 45 mg PO QHS [facility] Last Admin: 03/26/18 21:39 Dose: 45 mg Ondansetron HCl (Zofran) 4 mg IV Q6H PRN PRN PRN Reason: NAUSEA Last Admin: 03/27/18 07:28 Dose: 4 mg Sodium Chloride () 5 - 30 ml IV UD PRN PRN Reason: SALINE FLUSH Last Admin: 03/27/18 07:28 Dose: 10 ml Tolterodine Tartrate (Detrol La) 2 mg PO HS [facility] Last Admin: 03/26/18 21:39 Dose: 2 mg Medical Necessity - Tobacco Use Smoking Status: Never smoker Tobacco Use: Non-smoker Assessment/Plan All Active Problems (Last Reviewed 03/25/18 @ 14:51 by Karel Max DO) Septic shock (Acute) UTI (urinary tract infection) (Acute) Vaginal bleeding (Acute) Febrile illness, acute (Acute) Pseudoseizure (Acute) Breakthrough seizure (Acute) 68-year-old female with past medical history of questionable seizure disorder, hypertension, hyperlipidemia, type II DM, tachybradycardia syndrome who comes in with complaints of fever and lethargy and has been managed as septic shock secondary to the possible UTI. 1. Septic shock secondary to possible UTI, recently treated for UTI, resolved, BP are high now. 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 Blood culture showed no growth x 8 hours, We will continue only on Zosyn, vancomycin will be DC'd 2. Hypertension, patient was in hypotension, hypotension has been resolved, will resume home blood pressure medications with holding parameters 3. Persistent nausea and vomiting, secondary to small bowel ileus, status post NG tube this morning, will continue with NG tube management to intermittent suction. 4. Electrolyte imbalances, secondary to GI losses, replace, recheck in a.m. 5. Hyperglycemia in a type II DM, blood sugars are uncontrolled, on Tradjenta and insulin sliding scale. 6. Hyperlipidemia, on statin and fenofibrate 7. Chronic A. fib, tachybradycardia syndrome status post pacemaker, HR is controlled, remains in 8. Acute metabolic encephalopathy, resolved, patient is at lying, alert oriented ?3 9. DVT PPx- Lovenox SC Code Visit Inpatient E&M: [id number] Subs Hosp L2
[2018-03-27] MEDS: Insulin Lispro 100 UNIT/ML INSULN.PEN SQ ×3 (08:33→17:45)
[2018-03-27] MEDS: Enoxaparin 40 MG/0.4 ML Syringe SC (08:34)
[2018-03-27] MEDS: Lacosamide 100 MG Tablet 200 MG PO ×3 (08:42→22:12)
[2018-03-27 09:08] LABS: AST(SGOT) 74 U/L (15-37); Alanine Aminotransfer ALT/SGPT 8 U/L (13-56); Albumin, Serum 2.4 g/dL (3.2-5.0); Alkaline Phosphatase 49 U/L (45-117); Bilirubin, Direct 0.18 mg/dL (0.00-0.30); Globulin 3.8 g/dL (2.2-4.2); Protein, Total 6.2 g/dL (6.4-8.2)
[2018-03-27 11:56] LABS: Bedside Glucose 158 mg/dL (70-110)
[2018-03-27] MEDS: amLODIPine 5 MG Tablet PO (16:32)
[2018-03-27] MEDS: Ramipril 5 MG Capsule PO (16:32)
[2018-03-27] MEDS: 0.9% Normal Saline 1,000 ML 75 ML IV (17:32)
[2018-03-27] MEDS: Ketorolac 15 MG/ML Vial IV (17:34)
[2018-03-27] MEDS: proMETHazine 25 MG/ML Syringe 6.25 MG IV (17:34)
[2018-03-27 18:06] LABS: Bedside Glucose 168 mg/dL (70-110)
[2018-03-27] MEDS: Tolterodine Tartrate 2 MG CAP.SA PO (22:08)
[2018-03-27] MEDS: Fenofibrate 145 MG Tablet PO (22:09)
[2018-03-27] MEDS: Atorvastatin Calcium 20 MG Tablet PO (22:09)
[2018-03-27] MEDS: Mirtazapine 15 MG Tablet 45 MG PO (22:09)
[2018-03-27] MEDS: hydrOXYzine 10 MG Tablet PO (22:15)
[2018-03-27 22:36] LABS: Bedside Glucose 148 mg/dL (70-110)
[2018-03-28] VITALS (11 sets, daily range): BP systolic 147–160; BP diastolic 73–88; PULSE 60–67; RESP 14–18; TEMP 36.7–37; O2SAT 94–95
[2018-03-28] MEDS: 0.9% NaCl Peripheral Flush Adult/Peds IV ×5 (01:08→21:35)
[2018-03-28] MEDS: Piperacil/Tazobactam 3.375 GM/50 ML ML IV ×3 (05:10→21:39)
[2018-03-28] MEDS: 0.9% Normal Saline 1,000 ML 75 ML IV ×2 (05:10→18:03)
[2018-03-28 07:10] LABS: Bedside Glucose 156 mg/dL (70-110)
[2018-03-28] MEDS: proMETHazine 25 MG/ML Syringe 6.25 MG IV ×3 (08:32→21:35)
--- NOTE | 2018-03-28 08:35 | NURSING ---
SPOKE WITH SHANTELL WARD FROM INFECTION CONTROL REGARDING PATIENTS URINE CULTURE. PATIENT ISOLATED FOR ESBL IN HER URINE. 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
[2018-03-28] MEDS: Insulin Lispro 100 UNIT/ML INSULN.PEN SQ (09:14)
[2018-03-28] MEDS: Ramipril 5 MG Capsule PO (09:14)
[2018-03-28] MEDS: Gabapentin 300 MG Capsule PO ×2 (09:14→16:02)
[2018-03-28] MEDS: amLODIPine 5 MG Tablet PO (09:15)
[2018-03-28] MEDS: Lacosamide 100 MG Tablet 200 MG PO ×2 (09:15→22:20)
[2018-03-28] MEDS: Enoxaparin 40 MG/0.4 ML Syringe SC (09:15)
[2018-03-28] MEDS: LINAGLIPTIN 5 MG TABLET PO (09:15)
--- NOTE | 2018-03-28 10:26 | PCM.PROGNOTE ---
Patient Problems: Active and Suspected Problems (Last Reviewed 03/25/18 @ 14:51 by Karel Max DO) Septic shock (Acute) UTI (urinary tract infection) (Acute) Subjective: The patient was seen and examined at the bedside this morning. Events from the last 24 hours have been reviewed. The patient is currently afebrile, hemodynamically stable and maintaining appropriate oxygen saturations on room air. The patient currently denies the presence of shortness of breath or abdominal pain. She does report the presence of flatus. Objective: The patient's most recent lab work, culture data and imaging studies have all been personally reviewed. Urine culture was positive for E. coli and a gram-positive organism. Blood cultures have shown no growth to date. - Physical Exam General: Alert, Oriented x3, Cooperative, No apparent distress HEENT: Atraumatic, PERRLA, Normocephalic, - - NG tube in place Oral: No Gingival or Mucosal Lesions/ Ulcerations Neck: Supple, No Nodes, Trachea Midline Lungs: No rhonchi, No wheeze, No rales, Diminished Cardiovascular: Regular rate, Regular Rhythm, Normal S1, Normal S2, No murmurs Abdomen: Bowel Sounds Present, Soft, Non Tender, Obese Extremities: No clubbing, No cyanosis, No edema Skin: No breakdown Musculoskeletal: No Tenderness to Palpation of Joints or Extremities Lymphatic: No Cervical, Supraclavicular, or Inguinal Adenopathy Neurological: Neuro grossly intact Psych/Mental Status: Normal Affect, Appropriate Vital Signs Temp Pulse Resp BP Pulse Ox 98.6 F 60 14 147/73 H 94 03/28/18 08:45 03/28/18 08:45 03/28/18 08:45 03/28/18 08:45 03/28/18 08:45 Oxygen Flow Rate (L/min) 2 Oxygen Delivery Method Room Air Weight: 185 lb 6.54 oz Body Mass Index (BMI) 33.8 Intake and Output for Last 24 Hours 03/26/18 03/27/18 03/28/18 23:59 23:59 23:59 Intake Total 2723 / 2723 3973.6 / 3973.6 573.3 / 573.3 Output Total 2350 / 2350 100 / 100 Balance 2723 / 2723 1623.6 / 1623.6 473.3 / 473.3 POC Glucose 03/28/18 03/27/18 03/27/18 06:57 22:28 17:44 POC Glucose 156 H 148 H 168 H 03/27/18 11:31 POC Glucose 158 H Labs (Last 48 Hours) 03/26/18 03/26/18 03/26/18 04:05 11:56 13:20 WBC RBC Hgb Hct MCV MCH MCHC RDW RDW Differential Plt Count MPV Immature Gran % (Auto) Neut % (Auto) Lymph % (Auto) Mcduffie % (Auto) Eos % (Auto) Baso % (Auto) Absolute Neuts (auto) Absolute Lymphs (auto) Total Counted Sodium 143 Potassium 4.1 Chloride 113 H Carbon Dioxide 23.0 Anion Gap 7 BUN 16 Creatinine 0.70 Estim Creat Clear Calc 43.77 Est GFR (MDRD) Af Amer 108 Est GFR (MDRD) Non-Af 89 BUN/Creatinine Ratio 22.9 H Glucose 226 H Calcium 7.7 L Phosphorus 2.2 L Magnesium 1.2 L 1.4 L Total Bilirubin Direct Bilirubin AST ALT Alkaline Phosphatase Total Protein Albumin Globulin POC Glucose 213 H 03/26/18 03/26/18 03/27/18 17:39 21:47 03:50 WBC 4.5 RBC 3.81 L Hgb 10.4 L Hct 33.2 L MCV 87.1 MCH 27.3 MCHC 31.3 L RDW 15.4 H RDW Differential 48.4 H Plt Count 112 L MPV 10.0 Immature Gran % (Auto) 0.200 Neut % (Auto) 67.5 Lymph % (Auto) 22.0 Mcduffie % (Auto) 7.6 Eos % (Auto) 2.5 Baso % (Auto) 0.2 Absolute Neuts (auto) 3.0 Absolute Lymphs (auto) 0.98 Total Counted Not Reportable Sodium Potassium Chloride Carbon Dioxide Anion Gap BUN Creatinine Estim Creat Clear Calc Est GFR (MDRD) Af Amer Est GFR (MDRD) Non-Af BUN/Creatinine Ratio Glucose Calcium Phosphorus Magnesium Total Bilirubin Direct Bilirubin AST ALT Alkaline Phosphatase Total Protein Albumin Globulin POC Glucose 150 H 138 H 03/27/18 03/27/18 03/27/18 03:50 03:50 07:22 WBC RBC Hgb Hct MCV MCH MCHC RDW RDW Differential Plt Count MPV Immature Gran % (Auto) Neut % (Auto) Lymph % (Auto) Mcduffie % (Auto) Eos % (Auto) Baso % (Auto) Absolute Neuts (auto) Absolute Lymphs (auto) Total Counted Sodium 143 Potassium 4.2 Chloride 112 H Carbon Dioxide 23.0 Anion Gap 8 BUN 11 Creatinine 0.56 Estim Creat Clear Calc 43.77 Est GFR (MDRD) Af Amer 141 Est GFR (MDRD) Non-Af 116 BUN/Creatinine Ratio 19.8 Glucose 176 H Calcium 7.3 L Phosphorus 1.9 L Magnesium 1.4 L Total Bilirubin 0.40 Direct Bilirubin 0.18 AST 74 H ALT 8 L Alkaline Phosphatase 49 Total Protein 6.2 L Albumin 2.4 L Globulin 3.8 POC Glucose 188 H 03/27/18 03/27/18 03/27/18 11:31 17:44 22:28 WBC RBC Hgb Hct MCV MCH MCHC RDW RDW Differential Plt Count MPV Immature Gran % (Auto) Neut % (Auto) Lymph % (Auto) Mcduffie % (Auto) Eos % (Auto) Baso % (Auto) Absolute Neuts (auto) Absolute Lymphs (auto) Total Counted Sodium Potassium Chloride Carbon Dioxide Anion Gap BUN Creatinine Estim Creat Clear Calc Est GFR (MDRD) Af Amer Est GFR (MDRD) Non-Af BUN/Creatinine Ratio Glucose Calcium Phosphorus Magnesium Total Bilirubin Direct Bilirubin AST ALT Alkaline Phosphatase Total Protein Albumin Globulin POC Glucose 158 H 168 H 148 H 03/28/18 06:57 WBC RBC Hgb Hct MCV MCH MCHC RDW RDW Differential Plt Count MPV Immature Gran % (Auto) Neut % (Auto) Lymph % (Auto) Mcduffie % (Auto) Eos % (Auto) Baso % (Auto) Absolute Neuts (auto) Absolute Lymphs (auto) Total Counted Sodium Potassium Chloride Carbon Dioxide Anion Gap BUN Creatinine Estim Creat Clear Calc Est GFR (MDRD) Af Amer Est GFR (MDRD) Non-Af BUN/Creatinine Ratio Glucose Calcium Phosphorus Magnesium Total Bilirubin Direct Bilirubin AST ALT Alkaline Phosphatase Total Protein Albumin Globulin POC Glucose 156 H Microbiology 03/25/18 13:40 Urine, Catheterized Urine Culture - Preliminary Escherichia coli Gram positive organism 03/25/18 12:45 Blood Culture (Wb) - Left Wrist Blood Culture - Preliminary No growth in 48 hours. 03/25/18 13:24 Blood Culture (Wb) - Right Wrist Blood Culture - Preliminary No growth in 48 hours. Clinical Impression(s) from Imaging Studies Chest X-Ray 03/25/18 13:05 IMPRESSION: Degenerative changes, as described above. No demonstrated acute cardiopulmonary process. Electronically Signed: Darrell Prado MD at 14:04 EDT , Service support , Renal Ultrasound 03/25/18 16:16 IMPRESSION: Normal size of the right kidney. Multiple echogenic foci, potential renal stones. The largest measures approximately 1 cm in the upper pole. Negative for hydronephrosis. Normal size of the left kidney. Multiple tiny echogenic foci too small to measure, potential renal stones. Negative for hydronephrosis. Unremarkable urinary bladder. Bilateral ureteral jets are demonstrated. Electronically Signed: Georgia Myers MD at 23:40 EDT , Service support , Chest X-Ray 03/25/18 17:40 IMPRESSION: Right central venous catheter ends at the atriocaval junction without complication of line placement. Mild atelectatic changes in the right middle lung zone and left lung base. Mild cardiomegaly with right atrial and ventricular pacemaker in good position. Electronically Signed: Georgia Myers MD at 17:56 EDT , Service support , KUB X-Ray 03/26/18 04:00 IMPRESSION: Small bowel ileus. Electronically Signed: Tirso Ovalle DO at 5:09 EDT , Service support , KUB X-Ray 03/27/18 07:15 IMPRESSION: Feeding tube extends to the stomach in the left upper quadrant. Electronically Signed: Darrell Prado MD at 11:37 EDT , Service support , Medical Necessity - Tobacco Use Smoking Status: Never smoker Tobacco Use: Non-smoker Assessment/Plan All Active Problems (Last Reviewed 03/25/18 @ 14:51 by Karel Max DO) Septic shock (Acute) UTI (urinary tract infection) (Acute) Vaginal bleeding (Acute) Febrile illness, acute (Acute) Pseudoseizure (Acute) Breakthrough seizure (Acute) RECOMMENDATIONS: 1. Transition from Zosyn to Augmentin to complete treatment course. 2. Recheck magnesium and phosphorus levels to ensure adequate repletion 3. Consider slow diet advancement 4. Encourage incentive spirometer use while in bed. IMPRESSIONS: 1. Septic shock secondary to probable UTI Clinically improved. The patient remains hemodynamically stable. Urine culture was positive for E. coli and a gram-positive organism, both of which were less than 50,000 CFU. Given the lack of alternative culture data, recommend transitioning from Zosyn to Augmentin. 2. Metabolic encephalopathy RESOLVED> patient appears to be responding appropriately at this time. 3. Diabetes mellitus type 2 Continue Accu-Cheks and sliding scale insulin coverage, given n.p.o. status. 4. Ileus/hypocalcemia/hypomagnesemia/hypophosphatemia Unclear etiology at this time. Patient only had one emesis over the last 24 hours. Patient does have multiple electrolyte abnormalities. Repletion has been ordered. No further emesis noted following NG tube placement. Electrolytes were not rechecked this morning. Recommend rechecking phosphorus and magnesium levels to ensure adequate repletion. Consider slow reintroduction of p.o. intake. 5. Hyperlipidemia/tachybradycardia syndrome/A. fib/questionable seizure disorder Complicates care, management, recovery and prognosis. Okay from my perspective to continue outpatient medication regimen. This note was generated with [employer] dictation software. It may contain incorrect words, spelling, and punctuation that were not noted in checking the note before signing. Code Visit Inpatient E&M: 28758 Subs Hosp L2
--- NOTE | 2018-03-28 10:36 | PCM.PN.HOSP ---
Patient Problems: Active and Suspected Problems (Last Reviewed 03/25/18 @ 14:51 by Karel Max DO) Septic shock (Acute) UTI (urinary tract infection) (Acute) Subjective: 68-year-old female with past medical history of questionable seizure disorder, hypertension, hyperlipidemia, type II DM and tachybradycardia syndrome. She was admitted with a complaint of fever and lethargy was managed for septic shock due to UTI. She is now off pressors. She is on IV Zosyn. Patient seen and examined this morning. She has an NG tube in place on account of 5 L. She complained of a spike in temperature overnight but denied any chills. She says she is passing gas. NG tube is in place and seems to drain questionable coffee-ground emesis. She denies any dark stools or history of GI bleed or peptic ulcer. She denies any chronic NSAID abuse as well. Review of systems otherwise negative. Vitals/I&O's: Vital Signs Temp Pulse Resp BP Pulse Ox 98.6 F 60 14 147/73 H 94 03/28/18 08:45 03/28/18 08:45 03/28/18 08:45 03/28/18 08:45 03/28/18 08:45 Oxygen Flow Rate (L/min) 2 Oxygen Delivery Method Room Air Weight: 185 lb 6.54 oz Body Mass Index (BMI) 33.8 Intake and Output for Last 24 Hours 03/26/18 03/27/18 03/28/18 23:59 23:59 23:59 Intake Total 2723 / 2723 3973.6 / 3973.6 573.3 / 573.3 Output Total 2350 / 2350 100 / 100 Balance 2723 / 2723 1623.6 / 1623.6 473.3 / 473.3 General: Alert, Oriented x3, Cooperative, No apparent distress HEENT: Atraumatic, PERRLA, EOMI, Normocephalic Oral: Moist Mucosa Neck: Supple, No JVD, Negative Carotid Bruits Lungs: Clear to auscultation, Normal air movement Cardiovascular: Regular rate, Regular Rhythm, Normal S1, Normal S2, No murmurs Abdomen: Soft, Non Tender, Non-Distended, No Hepato-splenomegaly, Hypoactive Bowel Sounds, Obese - NG tube in place, draining dark, ?coffee ground aspirate, - Extremities: No clubbing, No cyanosis, No edema, Capillary Refill Less than 3 Seconds Skin: No rashes, No breakdown Musculoskeletal: No Tenderness to Palpation of Joints or Extremities Lymphatic: No Cervical, Supraclavicular, or Inguinal Adenopathy Neurological: Cranial nerves II-XII grossly intact, Motor Exam 5/5 strength throughout Psych/Mental Status: Normal Affect, Appropriate, Alert and oriented to time, place, person, mood and affect Laboratory Results 03/27/18 11:31: POC Glucose 158 H 03/27/18 17:44: POC Glucose 168 H 03/27/18 22:28: POC Glucose 148 H 03/28/18 06:57: POC Glucose 156 H Diagnostic Data Renal Ultrasound 03/25/18 16:16 IMPRESSION: Normal size of the right kidney. Multiple echogenic foci, potential renal stones. The largest measures approximately 1 cm in the upper pole. Negative for hydronephrosis. Normal size of the left kidney. Multiple tiny echogenic foci too small to measure, potential renal stones. Negative for hydronephrosis. Unremarkable urinary bladder. Bilateral ureteral jets are demonstrated. Electronically Signed: Georgia Myers MD at 23:40 EDT , Service support , Chest X-Ray 03/25/18 17:40 IMPRESSION: Right central venous catheter ends at the atriocaval junction without complication of line placement. Mild atelectatic changes in the right middle lung zone and left lung base. Mild cardiomegaly with right atrial and ventricular pacemaker in good position. Electronically Signed: Georgia Myers MD at 17:56 EDT , Service support , KUB X-Ray 03/27/18 07:15 IMPRESSION: Feeding tube extends to the stomach in the left upper quadrant. Electronically Signed: Darrell Prado MD at 11:37 EDT , Service support , Current Medications Amlodipine Besylate (Norvasc) 5 mg PO DAILY [facility]ENEE Last Admin: 03/28/18 09:15 Dose: 5 mg Amoxicillin/Clavulanate Potassium (Augmentin Tablet) 875 mg PO BID [facility] Atorvastatin Calcium (Lipitor) 20 mg PO QHS [facility] Last Admin: 03/27/18 22:09 Dose: 20 mg Chlorhexidine Gluconate () 1 each TOPICAL DAILY [facility] Last Admin: 03/28/18 09:15 Dose: Not Given Dextrose (D50w Syringe) 0 gm IV X1 PRN; Protocol PRN Reason: Hypoglycemia Enoxaparin Sodium (Lovenox) 40 mg SC DAILY@1000 [facility] Last Admin: 03/28/18 09:15 Dose: 40 mg Fenofibrate (Tricor) 145 mg PO DAILY@2200 [facility] Last Admin: 03/27/18 22:09 Dose: 145 mg Gabapentin (Neurontin) 300 mg PO TIDCM [facility] Last Admin: 03/28/18 09:14 Dose: 300 mg Glucagon () 1 mg IM .X1 PRN PRN Reason: Hypoglycemia Hydroxyzine HCl (Atarax Tablet) 10 mg PO Q8H PRN PRN PRN Reason: ITCHING Last Admin: 03/27/18 22:15 Dose: 10 mg Sodium Chloride () 1,000 mls @ 75 mls/hr IV .[id number] [facility] Last Admin: 03/28/18 05:10 Dose: 75 mls/hr Pantoprazole Sodium 40 mg/ (Sodium Chloride) 110 mls @ 330 mls/hr IV Q24 [facility] Last Admin: 03/28/18 00:56 Dose: 330 mls/hr Insulin Human Lispro (Humalog Kwikpen (Bkc)) 0 unit SQ TIDAC [facility] PRN Reason: Protocol Last Admin: 03/28/18 09:14 Dose: 2 u Lacosamide (Vimpat) 200 mg PO BID [facility] Last Admin: 03/28/18 09:15 Dose: 200 mg Linagliptin (Tradjenta) 5 mg PO DAILY [facility] Last Admin: 03/28/18 09:15 Dose: 5 mg Magnesium Hydroxide (Milk Of Magnesia) 30 ml PO DAILY PRN PRN PRN Reason: Constipation Mirtazapine (Remeron) 45 mg PO QHS [facility] Last Admin: 03/27/18 22:09 Dose: 45 mg Ondansetron HCl (Zofran) 4 mg IV Q6H PRN PRN PRN Reason: NAUSEA Last Admin: 03/27/18 14:45 Dose: 4 mg Promethazine HCl (Phenergan) 6.25 mg IV Q6H PRN PRN PRN Reason: NAUSEA/VOMITING Last Admin: 03/28/18 08:32 Dose: 6.25 mg Ramipril (Altace) 5 mg PO DAILY [facility] Last Admin: 03/28/18 09:14 Dose: 5 mg Sodium Chloride () 5 - 30 ml IV UD PRN PRN Reason: SALINE FLUSH Last Admin: 03/28/18 01:08 Dose: 10 ml Tolterodine Tartrate (Detrol La) 2 mg PO HS [facility] Last Admin: 03/27/18 22:08 Dose: 2 mg Medical Necessity - Tobacco Use Smoking Status: Never smoker Tobacco Use: Non-smoker Assessment/Plan All Active Problems (Last Reviewed 03/25/18 @ 14:51 by Karel Max DO) Septic shock (Acute) UTI (urinary tract infection) (Acute) Vaginal bleeding (Acute) Febrile illness, acute (Acute) Pseudoseizure (Acute) Breakthrough seizure (Acute) Sepsis due to UTI Admitted with septic shock due to UTI. Shock is resolved and patient is off vasopressors. Complains of a spiking fever overnight. However per chart review. Temperature was normal overnight. On IV Zosyn; was switched to augmentin via NG tube. Patient developed a facial rash after being given first dose of augmentin. Has no history of allergy to penicillins. Discussed with ID; to continue zosyn to receive a total 7 day course. CBC and BMP ordered this morning pending. blood cultures showed no growth after 48 hours, and urine cultured ESBL and E coli and gram positive organism. Will await further speciation and adjust antibiotics as needed. 2. Small bowel ileus has NG tube to intermittent suction KUB (03/27/18) showed unremarkable bowel gas pattern, with feeding tube extending to stomach. Lower lung opacities on left with consolidation and small bilateral pleural effusions. Pacemaker on left, with cardiac enlargement NG tube suctioning dark, ?coffee ground emesis currently on sips; to continue and assess for resolution of ileus 3. Hypertension: BP meds were initially held on account of hypotension on admission. Blood pressure now ranging in the 140s-160s systolic. On ramipril and amlodipine. 4. Type 2 diabetes mellitus currently on ISS nad matt. Had been hyperglycemic during this adamission. Sugars Now in 140s-150s. accuchecks q6 5. Hypomagnesemia Patient was 1.4 yesterday. Likely due to persistent vomiting and nausea and NG aspiration. Was replaced. Will check today and replace as needed. 6. Hyperlipidemia: on statin 7. Chronic atrial fibrillation: rate controlled. 8. Tachybrady syndrome s/p pacemaker: stable. 9. DVT prophylaxis: heparin 10. GI prophylaxis; PPI Code Visit Inpatient E&M: 61402 Subs Hosp L3
--- NOTE | 2018-03-28 10:49 | PN_ITS ---
Patient Problems: Active and Suspected Problems (Last Reviewed 03/25/18 @ 14:51 by Karel Max DO) Septic shock (Acute) UTI (urinary tract infection) (Acute) Subjective: 68-year-old female with past medical history of questionable seizure disorder, hypertension, hyperlipidemia, type II DM and tachybradycardia syndrome. She was admitted with a complaint of fever and lethargy was managed for septic shock due to UTI. She is now off pressors. She is on IV Zosyn. Patient seen and examined this morning. She has an NG tube in place on account of 5 L. She complained of a spike in temperature overnight but denied any chills. She says she is passing gas. NG tube is in place and seems to drain questionable coffee-ground emesis. She denies any dark stools or history of GI bleed or peptic ulcer. She denies any chronic NSAID abuse as well. Review of systems otherwise negative. Vitals/I&O's: Vital Signs Temp Pulse Resp BP Pulse Ox 98.6 F 60 14 147/73 H 94 03/28/18 08:45 03/28/18 08:45 03/28/18 08:45 03/28/18 08:45 03/28/18 08:45 Oxygen Flow Rate (L/min) 2 Oxygen Delivery Method Room Air Weight: 185 lb 6.54 oz Body Mass Index (BMI) 33.8 Intake and Output for Last 24 Hours 03/26/18 03/27/18 03/28/18 23:59 23:59 23:59 Intake Total 2723 / 2723 3973.6 / 3973.6 573.3 / 573.3 Output Total 2350 / 2350 100 / 100 Balance 2723 / 2723 1623.6 / 1623.6 473.3 / 473.3 General: Alert, Oriented x3, Cooperative, No apparent distress HEENT: Atraumatic, PERRLA, EOMI, Normocephalic Oral: Moist Mucosa Neck: Supple, No JVD, Negative Carotid Bruits Lungs: Clear to auscultation, Normal air movement Cardiovascular: Regular rate, Regular Rhythm, Normal S1, Normal S2, No murmurs Abdomen: Soft, Non Tender, Non-Distended, No Hepato-splenomegaly, Hypoactive Bowel Sounds, Obese - NG tube in place, draining dark, ?coffee ground aspirate, - Extremities: No clubbing, No cyanosis, No edema, Capillary Refill Less than 3 Seconds Skin: No rashes, No breakdown Musculoskeletal: No Tenderness to Palpation of Joints or Extremities Lymphatic: No Cervical, Supraclavicular, or Inguinal Adenopathy Neurological: Cranial nerves II-XII grossly intact, Motor Exam 5/5 strength throughout Psych/Mental Status: Normal Affect, Appropriate, Alert and oriented to time, place, person, mood and affect Laboratory Results 03/27/18 11:31: POC Glucose 158 H 03/27/18 17:44: POC Glucose 168 H 03/27/18 22:28: POC Glucose 148 H 03/28/18 06:57: POC Glucose 156 H Diagnostic Data Renal Ultrasound 03/25/18 16:16 IMPRESSION: Normal size of the right kidney. Multiple echogenic foci, potential renal stones. The largest measures approximately 1 cm in the upper pole. Negative for hydronephrosis. Normal size of the left kidney. Multiple tiny echogenic foci too small to measure, potential renal stones. Negative for hydronephrosis. Unremarkable urinary bladder. Bilateral ureteral jets are demonstrated. Electronically Signed: Georgia Myers MD at 23:40 EDT , Service support , Chest X-Ray 03/25/18 17:40 IMPRESSION: Right central venous catheter ends at the atriocaval junction without complication of line placement. Mild atelectatic changes in the right middle lung zone and left lung base. Mild cardiomegaly with right atrial and ventricular pacemaker in good position. Electronically Signed: Georgia Myers MD at 17:56 EDT , Service support , KUB X-Ray 03/27/18 07:15 IMPRESSION: Feeding tube extends to the stomach in the left upper quadrant. Electronically Signed: Darrell Prado MD at 11:37 EDT , Service support , Current Medications Amlodipine Besylate (Norvasc) 5 mg PO DAILY RENEE Last Admin: 03/28/18 09:15 Dose: 5 mg Amoxicillin/Clavulanate Potassium (Augmentin Tablet) 875 mg PO BID [facility] Atorvastatin Calcium (Lipitor) 20 mg PO QHS [facility] Last Admin: 03/27/18 22:09 Dose: 20 mg Chlorhexidine Gluconate () 1 each TOPICAL DAILY [facility] Last Admin: 03/28/18 09:15 Dose: Not Given Dextrose (D50w Syringe) 0 gm IV X1 PRN; Protocol PRN Reason: Hypoglycemia Enoxaparin Sodium (Lovenox) 40 mg SC DAILY@1000 [facility] Last Admin: 03/28/18 09:15 Dose: 40 mg Fenofibrate (Tricor) 145 mg PO DAILY@2200 [facility] Last Admin: 03/27/18 22:09 Dose: 145 mg Gabapentin (Neurontin) 300 mg PO TIDCM [facility] Last Admin: 03/28/18 09:14 Dose: 300 mg Glucagon () 1 mg IM .X1 PRN PRN Reason: Hypoglycemia Hydroxyzine HCl (Atarax Tablet) 10 mg PO Q8H PRN PRN PRN Reason: ITCHING Last Admin: 03/27/18 22:15 Dose: 10 mg Sodium Chloride () 1,000 mls @ 75 mls/hr IV .[id number] [facility] Last Admin: 03/28/18 05:10 Dose: 75 mls/hr Pantoprazole Sodium 40 mg/ (Sodium Chloride) 110 mls @ 330 mls/hr IV Q24 [facility] Last Admin: 03/28/18 00:56 Dose: 330 mls/hr Insulin Human Lispro (Humalog Kwikpen (Bkc)) 0 unit SQ TIDAC [facility] PRN Reason: Protocol Last Admin: 03/28/18 09:14 Dose: 2 u Lacosamide (Vimpat) 200 mg PO BID [facility] Last Admin: 03/28/18 09:15 Dose: 200 mg Linagliptin (Tradjenta) 5 mg PO DAILY [facility] Last Admin: 03/28/18 09:15 Dose: 5 mg Magnesium Hydroxide (Milk Of Magnesia) 30 ml PO DAILY PRN PRN PRN Reason: Constipation Mirtazapine (Remeron) 45 mg PO QHS [facility] Last Admin: 03/27/18 22:09 Dose: 45 mg Ondansetron HCl (Zofran) 4 mg IV Q6H PRN PRN PRN Reason: NAUSEA Last Admin: 03/27/18 14:45 Dose: 4 mg Promethazine HCl (Phenergan) 6.25 mg IV Q6H PRN PRN PRN Reason: NAUSEA/VOMITING Last Admin: 03/28/18 08:32 Dose: 6.25 mg Ramipril (Altace) 5 mg PO DAILY RENEE Last Admin: 03/28/18 09:14 Dose: 5 mg Sodium Chloride () 5 - 30 ml IV UD PRN PRN Reason: SALINE FLUSH Last Admin: 03/28/18 01:08 Dose: 10 ml Tolterodine Tartrate (Detrol La) 2 mg PO HS [facility]ENEE Last Admin: 03/27/18 22:08 Dose: 2 mg Medical Necessity - Tobacco Use Smoking Status: Never smoker Tobacco Use: Non-smoker Assessment/Plan All Active Problems (Last Reviewed 03/25/18 @ 14:51 by Karel Max DO) Septic shock (Acute) UTI (urinary tract infection) (Acute) Vaginal bleeding (Acute) Febrile illness, acute (Acute) Pseudoseizure (Acute) Breakthrough seizure (Acute) Sepsis due to UTI * Admitted with septic shock due to UTI. Shock is resolved and patient is off vasopressors. * Complains of a spiking fever overnight. However per chart review. Temperature was normal overnight. * On IV Zosyn; was switched to augmentin via NG tube. Patient developed a facial rash after being given first dose of augmentin. Has no history of allergy to penicillins. Discussed with ID; to continue zosyn to receive a total 7 day course. * CBC and BMP ordered this morning pending. * blood cultures showed no growth after 48 hours, and urine cultured ESBL and E coli and gram positive organism. Will await further speciation and adjust antibiotics as needed. * 2. Small bowel ileus * has NG tube to intermittent suction * KUB (03/27/18) showed unremarkable bowel gas pattern, with feeding tube extending to stomach. Lower lung opacities on left with consolidation and small bilateral pleural effusions. Pacemaker on left, with cardiac enlargement * NG tube suctioning dark, ?coffee ground emesis * currently on sips; to continue and assess for resolution of ileus * 3. Hypertension: * BP meds were initially held on account of hypotension on admission. Blood pressure now ranging in the 140s-160s systolic. On ramipril and amlodipine. 4. Type 2 diabetes mellitus * currently on ISS nad tradjenta. Had been hyperglycemic during this adamission. Sugars Now in 140s-150s. * accuchecks q6 * 5. Hypomagnesemia * Patient was 1.4 yesterday. Likely due to persistent vomiting and nausea and NG aspiration. Was replaced. Will check today and replace as needed. * 6. Hyperlipidemia: on statin 7. Chronic atrial fibrillation: rate controlled. 8. Tachybrady syndrome s/p pacemaker: stable. 9. DVT prophylaxis: heparin 10. GI prophylaxis; PPI Code Visit Inpatient E&M: 31242 Subs Hosp L3
[2018-03-28] MEDS: Amox/Clavulanate 875 MG Tablet PO (11:01)
[2018-03-28 11:16] LABS: Bedside Glucose 124 mg/dL (70-110)
[2018-03-28 11:49] LABS: Absolute Lymphocyte Count 1.72 X10^3/ul (0.83-4.51); Absolute Neutrophil Count 2.9 X10^3/uL (2.0-7.7); Basophil# 0.01 X10^3/uL; Basophil% 0.2 % (0-1); Eosinophils% 3.8 % (0-5); Hematocrit 34.1 % (37-47); Hemoglobin 10.7 g/dl (12.0-15.0); Lymphocyte # 1.72 X10^3/ul (4.0); Lymphocyte % 32.3 % (19-41); Mean Corp Hgb Conc 31.4 g/gl (32-36); Mean Corpuscular Hgb 26.8 pg (27.0-32.0); Mean Corpuscular Volume 85.5 fL (81-99); Mean Platelet Vol. 9.2 fl (6.2-12.0); Monocyte# 0.49 X10^3/uL; Monocyte% 9.2 % (0-10); Neutrophil # 2.89 X10^3/uL (2.7-7.7); Neutrophil % 54.3 % (47-70); Platelet Count 129 K/mm3 (150-450); RBC Distribution Width CV 15.1 % (11.6-14.6); RBC Distribution Width SD 47.1 fl (35.1-43.9); Red Blood Count 3.99 M/mm3 (4.2-5.4); White Blood Count 5.3 K/mm3 (4.4-11.0)
[2018-03-28 11:52] LABS: Anion Gap 7 (5-15); BUN 7 mg/dL (7-18); BUN/Creat Ratio 13.6 RATIO (10-20); Calcium,Total 8.3 mg/dL (8.5-10.1); Chloride 108 mmol/L (98-107); Creatinine, Serum 0.51 mg/dL (0.55-1.02); EST Glomerular Filtration Rate 127 mL/min (>60); Est Glom Filt Rate - Afr Amer 154 mL/min (>60); Estimated Creatinine Clearance 43.77 ml/min; Glucose 138 mg/dL (74-106); Magnesium 1.7 mg/dL (1.6-2.6); POSITIVE COUNT NO; POSITIVE DIFFERENTIAL NO; POSITIVE MORPHOLOGY NO; Potassium 3.4 mmol/L (3.5-5.1); Sodium Level 142 mmol/L (136-145)
[2018-03-28 16:11] LABS: Bedside Glucose 120 mg/dL (70-110)
[2018-03-28 21:50] LABS: Bedside Glucose 118 mg/dL (70-110)
[2018-03-28] MEDS: Fenofibrate 145 MG Tablet PO (22:20)
[2018-03-28] MEDS: Mirtazapine 15 MG Tablet 45 MG PO (22:20)
[2018-03-28] MEDS: Tolterodine Tartrate 2 MG CAP.SA PO (22:20)
[2018-03-28] MEDS: Atorvastatin Calcium 20 MG Tablet PO (22:20)
[2018-03-29] VITALS (12 sets, daily range): BP systolic 127–162; BP diastolic 60–88; PULSE 60–66; RESP 14–16; TEMP 36.6–37.1; O2SAT 93–96
[2018-03-29] MEDS: 0.9% NaCl Peripheral Flush Adult/Peds IV ×2 (05:12→05:13)
[2018-03-29 05:21] LABS: Absolute Neutrophil Count 2.8 X10^3/uL (2.0-7.7); Basophil# 0.01 X10^3/uL; Basophil% 0.2 % (0-1); Eosinophil# 0.35 X10^3/uL; Eosinophils% 5.9 % (0-5); Hematocrit 33.3 % (37-47); Hemoglobin 10.4 g/dl (12.0-15.0); Lymphocyte % 40.7 % (19-41); Mean Corp Hgb Conc 31.2 g/gl (32-36); Mean Corpuscular Hgb 26.9 pg (27.0-32.0); Mean Corpuscular Volume 86.3 fL (81-99); Mean Platelet Vol. 9.1 fl (6.2-12.0); Monocyte# 0.34 X10^3/uL; Monocyte% 5.8 % (0-10); Neutrophil # 2.79 X10^3/uL (2.7-7.7); Neutrophil % 47.2 % (47-70); Platelet Count 129 K/mm3 (150-450); RBC Distribution Width CV 15.4 % (11.6-14.6); RBC Distribution Width SD 48.5 fl (35.1-43.9); Red Blood Count 3.86 M/mm3 (4.2-5.4); White Blood Count 5.9 K/mm3 (4.4-11.0)
[2018-03-29 05:28] LABS: POSITIVE COUNT NO; POSITIVE DIFFERENTIAL NO; POSITIVE MORPHOLOGY NO
[2018-03-29 05:31] LABS: Anion Gap 7 (5-15); BUN 5 mg/dL (7-18); BUN/Creat Ratio 9.7 RATIO (10-20); Calcium,Total 8.1 mg/dL (8.5-10.1); Chloride 109 mmol/L (98-107); Creatinine, Serum 0.52 mg/dL (0.55-1.02); EST Glomerular Filtration Rate 127 mL/min (>60); Est Glom Filt Rate - Afr Amer 153 mL/min (>60); Estimated Creatinine Clearance 43.77 ml/min; Glucose 124 mg/dL (74-106); Potassium 3.7 mmol/L (3.5-5.1); Sodium Level 145 mmol/L (136-145)
[2018-03-29] MEDS: Piperacil/Tazobactam 3.375 GM/50 ML ML IV ×3 (05:33→21:45)
[2018-03-29] MEDS: 0.9% Normal Saline 1,000 ML 75 ML IV ×3 (05:34→20:19)
[2018-03-29 07:00] LABS: Bedside Glucose 125 mg/dL (70-110)
[2018-03-29] MEDS: Enoxaparin 40 MG/0.4 ML Syringe SC (09:16)
[2018-03-29] MEDS: amLODIPine 5 MG Tablet PO (09:16)
[2018-03-29] MEDS: Ramipril 5 MG Capsule PO (09:17)
[2018-03-29] MEDS: Lacosamide 100 MG Tablet 200 MG PO ×2 (09:17→21:48)
[2018-03-29] MEDS: LINAGLIPTIN 5 MG TABLET PO (09:17)
[2018-03-29] MEDS: Gabapentin 300 MG Capsule PO ×3 (09:17→17:38)
--- NOTE | 2018-03-29 10:13 | PCM.PROGNOTE ---
Patient Problems: Active and Suspected Problems (Last Reviewed 03/25/18 @ 14:51 by Karel Max DO) Septic shock (Acute) UTI (urinary tract infection) (Acute) Subjective: The patient was seen and examined at the bedside this morning. Events from the last 24 hours have been reviewed. The patient is currently afebrile, hemodynamically stable and maintaining appropriate oxygen saturations on room air. NG tube remains in place. Blood counts are stable. Diet was advanced this morning to clear liquids. Objective: The patient's most recent lab work, culture data and imaging studies have all been personally reviewed. Urine culture was positive for E. coli and a gram-positive organism. Blood cultures have shown no growth to date. - Physical Exam General: Alert, Cooperative, No apparent distress, - - Sitting in bedside recliner HEENT: Atraumatic, PERRLA, Normocephalic, - - Nasogastric tube in place Oral: No Gingival or Mucosal Lesions/ Ulcerations Neck: Supple, No Nodes, Trachea Midline Lungs: No rhonchi, No wheeze, No rales, Diminished Cardiovascular: Regular rate, Regular Rhythm, Normal S1, Normal S2, No murmurs Abdomen: Bowel Sounds Present, Soft, Non Tender, Obese Extremities: No clubbing, No cyanosis, No edema Skin: No breakdown Musculoskeletal: No Tenderness to Palpation of Joints or Extremities Lymphatic: No Cervical, Supraclavicular, or Inguinal Adenopathy Neurological: Neuro grossly intact Psych/Mental Status: Normal Affect, Appropriate Vital Signs Temp Pulse Resp BP Pulse Ox 98.1 F 60 16 162/88 H 96 03/29/18 09:05 03/29/18 09:05 03/29/18 09:05 03/29/18 09:05 03/29/18 09:05 Oxygen Flow Rate (L/min) 2 Oxygen Delivery Method Room Air Weight: 177 lb 7.554 oz Body Mass Index (BMI) 33.8 Intake and Output for Last 24 Hours 03/27/18 03/28/18 03/29/18 23:59 23:59 23:59 Intake Total 3973.6 / 3973.6 3640.9 / 3640.9 513.4 / 513.4 Output Total 2350 / 2350 3250 / 3250 750 / 750 Balance 1623.6 / 1623.6 390.9 / 390.9 -236.6 / -236.6 Laboratory Tests Past 24 Hrs 03/28/18 03/28/18 03/29/18 11:30 11:30 05:00 WBC 5.3 RBC 3.99 L Hgb 10.7 L Hct 34.1 L MCV 85.5 MCH 26.8 L MCHC 31.4 L RDW 15.1 H RDW Differential 47.1 H Plt Count 129 L MPV 9.2 Immature Gran % (Auto) 0.200 Neut % (Auto) 54.3 Lymph % (Auto) 32.3 [place] % (Auto) 9.2 Eos % (Auto) 3.8 Baso % (Auto) 0.2 Absolute Neuts (auto) 2.9 Absolute Lymphs (auto) 1.72 Total Counted Not Reportable Sodium 142 145 Potassium 3.4 L 3.7 Chloride 108 H 109 H Carbon Dioxide 27.0 29.0 Anion Gap 7 7 BUN 7 5 L Creatinine 0.51 L 0.52 L Estim Creat Clear Calc 43.77 43.77 Est GFR (MDRD) Af Amer 154 153 Est GFR (MDRD) Non-Af 127 127 BUN/Creatinine Ratio 13.6 9.7 L Glucose 138 H 124 H Calcium 8.3 L 8.1 L Magnesium 1.7 03/29/18 05:00 WBC 5.9 RBC 3.86 L Hgb 10.4 L Hct 33.3 L MCV 86.3 MCH 26.9 L MCHC 31.2 L RDW 15.4 H RDW Differential 48.5 H Plt Count 129 L MPV 9.1 Immature Gran % (Auto) 0.200 Neut % (Auto) 47.2 Lymph % (Auto) 40.7 [place] % (Auto) 5.8 Eos % (Auto) 5.9 H Baso % (Auto) 0.2 Absolute Neuts (auto) 2.8 Absolute Lymphs (auto) 2.40 Total Counted Not Reportable Sodium Potassium Chloride Carbon Dioxide Anion Gap BUN Creatinine Estim Creat Clear Calc Est GFR (MDRD) Af Amer Est GFR (MDRD) Non-Af BUN/Creatinine Ratio Glucose Calcium Magnesium POC Glucose 03/29/18 03/28/18 03/28/18 06:47 21:43 16:01 POC Glucose 125 H 118 H 120 H 03/28/18 11:00 POC Glucose 124 H Clinical Impression(s) from Imaging Studies Chest X-Ray 03/25/18 13:05 IMPRESSION: Degenerative changes, as described above. No demonstrated acute cardiopulmonary process. Electronically Signed: Darrell Prado MD at 14:04 EDT , Service support , Renal Ultrasound 03/25/18 16:16 IMPRESSION: Normal size of the right kidney. Multiple echogenic foci, potential renal stones. The largest measures approximately 1 cm in the upper pole. Negative for hydronephrosis. Normal size of the left kidney. Multiple tiny echogenic foci too small to measure, potential renal stones. Negative for hydronephrosis. Unremarkable urinary bladder. Bilateral ureteral jets are demonstrated. Electronically Signed: Georgia Myers MD at 23:40 EDT , Service support , Chest X-Ray 03/25/18 17:40 IMPRESSION: Right central venous catheter ends at the atriocaval junction without complication of line placement. Mild atelectatic changes in the right middle lung zone and left lung base. Mild cardiomegaly with right atrial and ventricular pacemaker in good position. Electronically Signed: Georgia Myers MD at 17:56 EDT , Service support , KUB X-Ray 03/26/18 04:00 IMPRESSION: Small bowel ileus. Electronically Signed: Tirso Ovalle DO at 5:09 EDT , Service support , KUB X-Ray 03/27/18 07:15 IMPRESSION: Feeding tube extends to the stomach in the left upper quadrant. Electronically Signed: Darrell Prado MD at 11:37 EDT , Service support , Medical Necessity - Tobacco Use Smoking Status: Never smoker Tobacco Use: Non-smoker Assessment/Plan All Active Problems (Last Reviewed 03/25/18 @ 14:51 by Karel Max DO) Septic shock (Acute) UTI (urinary tract infection) (Acute) Vaginal bleeding (Acute) Febrile illness, acute (Acute) Pseudoseizure (Acute) Breakthrough seizure (Acute) RECOMMENDATIONS: 1. Complete antibiotic treatment course with 7 days of Zosyn 2. Advance diet as tolerated 3. Encourage incentive spirometer use while in bed. 4. Blood pressure control per hospitalist. IMPRESSIONS: 1. Septic shock secondary to probable UTI Clinically improved. The patient remains hemodynamically stable. Urine culture was positive for E. coli and a gram-positive organism, both of which were less than 50,000 CFU. Given the lack of alternative culture data, recommend completing a 7 day treatment course. The patient developed a facial rash after her first dose of Augmentin and was subsequently transition back to IV Zosyn to complete her treatment course. 2. Metabolic encephalopathy RESOLVED> patient appears to be responding appropriately at this time. 3. Diabetes mellitus type 2 Continue Accu-Cheks and sliding scale insulin coverage. 4. Ileus/hypocalcemia/hypomagnesemia/hypophosphatemia Unclear etiology at this time. Potentially secondary to metabolic derangements and underlying infectious process. No further emesis noted following NG tube placement. Recommend rechecking phosphorus and magnesium levels to ensure adequate repletion. Advance diet as tolerated. 5. Hyperlipidemia/tachybradycardia syndrome/A. fib/questionable seizure disorder Complicates care, management, recovery and prognosis. Okay from my perspective to continue outpatient medication regimen. This note was generated with [employer] dictation software. It may contain incorrect words, spelling, and punctuation that were not noted in checking the note before signing. DISPOSITION: Given the lack of ongoing ICU/pulmonary needs, will sign off. Please call with any additional questions. Code Visit Inpatient E&M: 52274 Subs Hosp L2
--- NOTE | 2018-03-29 10:19 | PN_ITS ---
Patient Problems: Active and Suspected Problems (Last Reviewed 03/25/18 @ 14:51 by Karel Max DO) Septic shock (Acute) UTI (urinary tract infection) (Acute) Subjective: The patient was seen and examined at the bedside this morning. Events from the last 24 hours have been reviewed. The patient is currently afebrile, hemodynamically stable and maintaining appropriate oxygen saturations on room air. NG tube remains in place. Blood counts are stable. Diet was advanced this morning to clear liquids. Objective: The patient's most recent lab work, culture data and imaging studies have all been personally reviewed. Urine culture was positive for E. coli and a gram- positive organism. Blood cultures have shown no growth to date. - Physical Exam General: Alert, Cooperative, No apparent distress, - - Sitting in bedside recliner HEENT: Atraumatic, PERRLA, Normocephalic, - - Nasogastric tube in place Oral: No Gingival or Mucosal Lesions/ Ulcerations Neck: Supple, No Nodes, Trachea Midline Lungs: No rhonchi, No wheeze, No rales, Diminished Cardiovascular: Regular rate, Regular Rhythm, Normal S1, Normal S2, No murmurs Abdomen: Bowel Sounds Present, Soft, Non Tender, Obese Extremities: No clubbing, No cyanosis, No edema Skin: No breakdown Musculoskeletal: No Tenderness to Palpation of Joints or Extremities Lymphatic: No Cervical, Supraclavicular, or Inguinal Adenopathy Neurological: Neuro grossly intact Psych/Mental Status: Normal Affect, Appropriate Vital Signs Temp Pulse Resp BP Pulse Ox 98.1 F 60 16 162/88 H 96 03/29/18 09:05 03/29/18 09:05 03/29/18 09:05 03/29/18 09:05 03/29/18 09:05 Oxygen Flow Rate (L/min) 2 Oxygen Delivery Method Room Air Weight: 177 lb 7.554 oz Body Mass Index (BMI) 33.8 Intake and Output for Last 24 Hours 03/27/18 03/28/18 03/29/18 23:59 23:59 23:59 Intake Total 3973.6 / 3973.6 3640.9 / 3640.9 513.4 / 513.4 Output Total 2350 / 2350 3250 / 3250 750 / 750 Balance 1623.6 / 1623.6 390.9 / 390.9 -236.6 / -236.6 Laboratory Tests Past 24 Hrs 03/28/18 03/28/18 03/29/18 11:30 11:30 05:00 WBC 5.3 RBC 3.99 L Hgb 10.7 L Hct 34.1 L MCV 85.5 MCH 26.8 L MCHC 31.4 L RDW 15.1 H RDW Differential 47.1 H Plt Count 129 L MPV 9.2 Immature Gran % (Auto) 0.200 Neut % (Auto) 54.3 Lymph % (Auto) 32.3 [place] % (Auto) 9.2 Eos % (Auto) 3.8 Baso % (Auto) 0.2 Absolute Neuts (auto) 2.9 Absolute Lymphs (auto) 1.72 Total Counted Not Reportable Sodium 142 145 Potassium 3.4 L 3.7 Chloride 108 H 109 H Carbon Dioxide 27.0 29.0 Anion Gap 7 7 BUN 7 5 L Creatinine 0.51 L 0.52 L Estim Creat Clear Calc 43.77 43.77 Est GFR (MDRD) Af Amer 154 153 Est GFR (MDRD) Non-Af 127 127 BUN/Creatinine Ratio 13.6 9.7 L Glucose 138 H 124 H Calcium 8.3 L 8.1 L Magnesium 1.7 03/29/18 05:00 WBC 5.9 RBC 3.86 L Hgb 10.4 L Hct 33.3 L MCV 86.3 MCH 26.9 L MCHC 31.2 L RDW 15.4 H RDW Differential 48.5 H Plt Count 129 L MPV 9.1 Immature Gran % (Auto) 0.200 Neut % (Auto) 47.2 Lymph % (Auto) 40.7 [place] % (Auto) 5.8 Eos % (Auto) 5.9 H Baso % (Auto) 0.2 Absolute Neuts (auto) 2.8 Absolute Lymphs (auto) 2.40 Total Counted Not Reportable Sodium Potassium Chloride Carbon Dioxide Anion Gap BUN Creatinine Estim Creat Clear Calc Est GFR (MDRD) Af Amer Est GFR (MDRD) Non-Af BUN/Creatinine Ratio Glucose Calcium Magnesium POC Glucose 03/29/18 03/28/18 03/28/18 06:47 21:43 16:01 POC Glucose 125 H 118 H 120 H 03/28/18 11:00 POC Glucose 124 H Clinical Impression(s) from Imaging Studies Chest X-Ray 03/25/18 13:05 IMPRESSION: Degenerative changes, as described above. No demonstrated acute cardiopulmonary process. Electronically Signed: Darrell Prado MD at 14:04 EDT , Service support , Renal Ultrasound 03/25/18 16:16 IMPRESSION: Normal size of the right kidney. Multiple echogenic foci, potential renal stones. The largest measures approximately 1 cm in the upper pole. Negative for hydronephrosis. Normal size of the left kidney. Multiple tiny echogenic foci too small to measure, potential renal stones. Negative for hydronephrosis. Unremarkable urinary bladder. Bilateral ureteral jets are demonstrated. Electronically Signed: Georgia Myers MD at 23:40 EDT , Service support , Chest X-Ray 03/25/18 17:40 IMPRESSION: Right central venous catheter ends at the atriocaval junction without complication of line placement. Mild atelectatic changes in the right middle lung zone and left lung base. Mild cardiomegaly with right atrial and ventricular pacemaker in good position. Electronically Signed: Georgia Myers MD at 17:56 EDT , Service support , KUB X-Ray 03/26/18 04:00 IMPRESSION: Small bowel ileus. Electronically Signed: Tirso Ovalle DO at 5:09 EDT , Service support , KUB X-Ray 03/27/18 07:15 IMPRESSION: Feeding tube extends to the stomach in the left upper quadrant. Electronically Signed: Darrell Prado MD at 11:37 EDT , Service support , Medical Necessity - Tobacco Use Smoking Status: Never smoker Tobacco Use: Non-smoker Assessment/Plan All Active Problems (Last Reviewed 03/25/18 @ 14:51 by Karel Max DO) Septic shock (Acute) UTI (urinary tract infection) (Acute) Vaginal bleeding (Acute) Febrile illness, acute (Acute) Pseudoseizure (Acute) Breakthrough seizure (Acute) RECOMMENDATIONS: 1. Complete antibiotic treatment course with 7 days of Zosyn 2. Advance diet as tolerated 3. Encourage incentive spirometer use while in bed. 4. Blood pressure control per hospitalist. IMPRESSIONS: 1. Septic shock secondary to probable UTI Clinically improved. The patient remains hemodynamically stable. Urine culture was positive for E. coli and a gram-positive organism, both of which were less than 50,000 CFU. Given the lack of alternative culture data, recommend completing a 7 day treatment course. The patient developed a facial rash after her first dose of Augmentin and was subsequently transition back to IV Zosyn to complete her treatment course. 2. Metabolic encephalopathy RESOLVED> patient appears to be responding appropriately at this time. 3. Diabetes mellitus type 2 Continue Accu-Cheks and sliding scale insulin coverage. 4. Ileus/hypocalcemia/hypomagnesemia/hypophosphatemia Unclear etiology at this time. Potentially secondary to metabolic derangements and underlying infectious process. No further emesis noted following NG tube placement. Recommend rechecking phosphorus and magnesium levels to ensure adequate repletion. Advance diet as tolerated. 5. Hyperlipidemia/tachybradycardia syndrome/A. fib/questionable seizure disorder Complicates care, management, recovery and prognosis. Okay from my perspective to continue outpatient medication regimen. This note was generated with [employer] dictation software. It may contain incorrect words, spelling, and punctuation that were not noted in checking the note before signing. DISPOSITION: Given the lack of ongoing ICU/pulmonary needs, will sign off. Please call with any additional questions. Code Visit Inpatient E&M: 84286 Subs Hosp L2
--- NOTE | 2018-03-29 11:14 | PCM.PN.HOSP ---
Patient Problems: Active and Suspected Problems (Last Reviewed 03/25/18 @ 14:51 by Karel Max DO) Septic shock (Acute) UTI (urinary tract infection) (Acute) Subjective: Patient seen and examined today. Labs and vitals from overnight reviewed. She complained of fever overnight but denied any chills. She passed gas overnight and has had minimal drainage from the NG tube. She denies any shortness of breath or chest pain abdominal pain diarrhea vomiting. She has not a bowel movement since admission. Review of systems otherwise negative. Vitals/I&O's: Vital Signs Temp Pulse Resp BP Pulse Ox 98.1 F 60 16 162/88 H 96 03/29/18 09:05 03/29/18 10:59 03/29/18 09:05 03/29/18 09:05 03/29/18 09:05 Oxygen Flow Rate (L/min) 2 Oxygen Delivery Method Room Air Weight: 177 lb 7.554 oz Body Mass Index (BMI) 33.8 Intake and Output for Last 24 Hours 03/27/18 03/28/18 03/29/18 23:59 23:59 23:59 Intake Total 3973.6 / 3973.6 3640.9 / 3640.9 543.4 / 543.4 Output Total 2350 / 2350 3250 / 3250 750 / 750 Balance 1623.6 / 1623.6 390.9 / 390.9 -206.6 / -206.6 General: Alert, Oriented x3, Cooperative, No apparent distress HEENT: Atraumatic, PERRLA, EOMI, Normocephalic Oral: Moist Mucosa, - Neck: Supple, No JVD, Negative Carotid Bruits Lungs: Clear to auscultation, Normal air movement, No rhonchi, No wheeze, No rales Cardiovascular: Regular rate, Regular Rhythm, Normal S1, Normal S2, No murmurs Abdomen: Bowel Sounds Present, Soft, Non Tender, - - normal bowel sounds Extremities: No clubbing, No cyanosis, No edema, Capillary Refill Less than 3 Seconds Skin: No rashes, No breakdown Musculoskeletal: No Tenderness to Palpation of Joints or Extremities Lymphatic: No Cervical, Supraclavicular, or Inguinal Adenopathy Neurological: Cranial nerves II-XII grossly intact, Motor Exam 5/5 strength throughout Psych/Mental Status: Normal Affect, Appropriate, Alert and oriented to time, place, person, mood and affect Laboratory Results 03/28/18 11:00: POC Glucose 124 H 03/28/18 11:30: WBC 5.3, RBC 3.99 L, Hgb 10.7 L, Hct 34.1 L, MCV 85.5, MCH 26.8 L, MCHC 31.4 L, RDW 15.1 H, RDW Differential 47.1 H, Plt Count 129 L, MPV 9.2, Immature Gran % (Auto) 0.200, Neut % (Auto) 54.3, Lymph % (Auto) 32.3, [place] % (Auto) 9.2, Eos % (Auto) 3.8, Baso % (Auto) 0.2, Absolute Neuts (auto) 2.9, Absolute Lymphs (auto) 1.72, Total Counted Not Reportable 03/28/18 11:30: Sodium 142, Potassium 3.4 L, Chloride 108 H, Carbon Dioxide 27.0, Anion Gap 7, BUN 7, Creatinine 0.51 L, Estim Creat Clear Calc 43.77, Est GFR (MDRD) Af Amer 154, Est GFR (MDRD) Non-Af 127, BUN/Creatinine Ratio 13.6, Glucose 138 H, Calcium 8.3 L, Magnesium 1.7 03/28/18 16:01: POC Glucose 120 H 03/28/18 21:43: POC Glucose 118 H 03/29/18 05:00: Sodium 145, Potassium 3.7, Chloride 109 H, Carbon Dioxide 29.0, Anion Gap 7, BUN 5 L, Creatinine 0.52 L, Estim Creat Clear Calc 43.77, Est GFR (MDRD) Af Amer 153, Est GFR (MDRD) Non-Af 127, BUN/Creatinine Ratio 9.7 L, Glucose 124 H, Calcium 8.1 L 03/29/18 05:00: WBC 5.9, RBC 3.86 L, Hgb 10.4 L, Hct 33.3 L, MCV 86.3, MCH 26.9 L, MCHC 31.2 L, RDW 15.4 H, RDW Differential 48.5 H, Plt Count 129 L, MPV 9.1, Immature Gran % (Auto) 0.200, Neut % (Auto) 47.2, Lymph % (Auto) 40.7, [place] % (Auto) 5.8, Eos % (Auto) 5.9 H, Baso % (Auto) 0.2, Absolute Neuts (auto) 2.8, Absolute Lymphs (auto) 2.40, Total Counted Not Reportable 03/29/18 06:47: POC Glucose 125 H Current Medications Amlodipine Besylate (Norvasc) 5 mg PO DAILY [facility] Last Admin: 03/29/18 09:16 Dose: 5 mg Atorvastatin Calcium (Lipitor) 20 mg PO QHS [facility] Last Admin: 03/28/18 22:20 Dose: 20 mg Chlorhexidine Gluconate () 1 each TOPICAL DAILY [facility] Last Admin: 03/29/18 09:25 Dose: Not Given Dextrose (D50w Syringe) 0 gm IV X1 PRN; Protocol PRN Reason: Hypoglycemia Enoxaparin Sodium (Lovenox) 40 mg SC DAILY@1000 [facility] Last Admin: 03/29/18 09:16 Dose: 40 mg Fenofibrate (Tricor) 145 mg PO DAILY@2200 [facility] Last Admin: 03/28/18 22:20 Dose: 145 mg Gabapentin (Neurontin) 300 mg PO TIDCM [facility] Last Admin: 03/29/18 09:17 Dose: 300 mg Glucagon () 1 mg IM .X1 PRN PRN Reason: Hypoglycemia Hydroxyzine HCl (Atarax Tablet) 10 mg PO Q8H PRN PRN PRN Reason: ITCHING Last Admin: 03/27/18 22:15 Dose: 10 mg Sodium Chloride () 1,000 mls @ 75 mls/hr IV .[id number] [facility] Last Admin: 03/29/18 05:34 Dose: 75 mls/hr Pantoprazole Sodium 40 mg/ (Sodium Chloride) 110 mls @ 330 mls/hr IV Q24 [facility] Last Admin: 03/29/18 09:25 Dose: 330 mls/hr Piperacillin Sod/Tazobactam Sod (Zosyn) 3.375 gm in 50 mls @ 12.5 mls/hr IV Q8 [facility] Stop: 04/01/18 17:59 Last Admin: 03/29/18 05:33 Dose: 12.5 mls/hr Insulin Human Lispro (Humalog Kwikpen (Bkc)) 0 unit SQ TIDAC [facility] PRN Reason: Protocol Last Admin: 03/29/18 07:43 Dose: Not Given Lacosamide (Vimpat) 200 mg PO BID [facility] Last Admin: 03/29/18 09:17 Dose: 200 mg Linagliptin (Tradjenta) 5 mg PO DAILY [facility] Last Admin: 03/29/18 09:17 Dose: 5 mg Magnesium Hydroxide (Milk Of Magnesia) 30 ml PO DAILY PRN PRN PRN Reason: Constipation Mirtazapine (Remeron) 45 mg PO QHS [facility] Last Admin: 03/28/18 22:20 Dose: 45 mg Ondansetron HCl (Zofran) 4 mg IV Q6H PRN PRN PRN Reason: NAUSEA Last Admin: 03/27/18 14:45 Dose: 4 mg Promethazine HCl (Phenergan) 6.25 mg IV Q6H PRN PRN PRN Reason: NAUSEA/VOMITING Last Admin: 03/28/18 21:35 Dose: 6.25 mg Ramipril (Altace) 5 mg PO DAILY [facility] Last Admin: 03/29/18 09:17 Dose: 5 mg Sodium Chloride () 5 - 30 ml IV UD PRN PRN Reason: SALINE FLUSH Last Admin: 03/29/18 05:13 Dose: 10 ml Tolterodine Tartrate (Detrol La) 2 mg PO HS [facility] Last Admin: 03/28/18 22:20 Dose: 2 mg Medical Necessity - Tobacco Use Smoking Status: Never smoker Tobacco Use: Non-smoker Assessment/Plan All Active Problems (Last Reviewed 03/25/18 @ 14:51 by Karel Max DO) Septic shock (Acute) UTI (urinary tract infection) (Acute) Vaginal bleeding (Acute) Febrile illness, acute (Acute) Pseudoseizure (Acute) Breakthrough seizure (Acute) 1. UTI Admitted with septic shock due to UTI. Shock is resolved and patient is off vasopressors. fever has resolved. has no leucocytosis blood culture showed no growth after 48 hours; urinc cultured ESBL and E. Coli. started on PO augmentin, but developed a rash. Tolerated IV zosyn, so to have IV zosyn for a total of 6 days. 2. Small bowel ileus has NG tube to intermittent suction; resolving. minimal drainage from NG tube tolerated sips yesterday; tolerated clear liquids today. To remove NG tube and advance to full liquids as tolerated. passing gas currently on sips; to continue and assess for resolution of ileus 3. Hypertension: BP meds were initially held on account of hypotension on admission. Blood pressure now ranging in the 140s-160s systolic. On ramipril and amlodipine. 4. Type 2 diabetes mellitus currently on ISS nad tradjenta. Had been hyperglycemic during this adamission. Sugars Now in 140s-150s. accuchecks q6 5. Hypomagnesemia resolved 6. constipation: says she hasnt had a bowel movement since admission. Will give suppository bisacodyl 7. Thrombocytopenia: platelets 129 today. baseline ~ 205 in 11/14. Was 144 on admission. Will monitor 8. Hyperlipidemia: on statin 9. Chronic atrial fibrillation: rate controlled. Not on any beta wiley per meds. 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 Tachybrady syndrome s/p pacemaker: stable. 11. DVT prophylaxis: heparin 12. GI prophylaxis; PPI; will stop pantoprazole drip and started on PO pantoprazole. This note was generated with [employer] dictation software. It may contain incorrect words, spelling, and punctuation that were not noted in checking the note before signing. Code Visit Inpatient E&M: 86190 Subs Hosp L3
--- NOTE | 2018-03-29 11:19 | PN_ITS ---
Patient Problems: Active and Suspected Problems (Last Reviewed 03/25/18 @ 14:51 by Karel Max DO) Septic shock (Acute) UTI (urinary tract infection) (Acute) Subjective: Patient seen and examined today. Labs and vitals from overnight reviewed. She complained of fever overnight but denied any chills. She passed gas overnight and has had minimal drainage from the NG tube. She denies any shortness of breath or chest pain abdominal pain diarrhea vomiting. She has not a bowel movement since admission. Review of systems otherwise negative. Vitals/I&O's: Vital Signs Temp Pulse Resp BP Pulse Ox 98.1 F 60 16 162/88 H 96 03/29/18 09:05 03/29/18 10:59 03/29/18 09:05 03/29/18 09:05 03/29/18 09:05 Oxygen Flow Rate (L/min) 2 Oxygen Delivery Method Room Air Weight: 177 lb 7.554 oz Body Mass Index (BMI) 33.8 Intake and Output for Last 24 Hours 03/27/18 03/28/18 03/29/18 23:59 23:59 23:59 Intake Total 3973.6 / 3973.6 3640.9 / 3640.9 543.4 / 543.4 Output Total 2350 / 2350 3250 / 3250 750 / 750 Balance 1623.6 / 1623.6 390.9 / 390.9 -206.6 / -206.6 General: Alert, Oriented x3, Cooperative, No apparent distress HEENT: Atraumatic, PERRLA, EOMI, Normocephalic Oral: Moist Mucosa, - Neck: Supple, No JVD, Negative Carotid Bruits Lungs: Clear to auscultation, Normal air movement, No rhonchi, No wheeze, No rales Cardiovascular: Regular rate, Regular Rhythm, Normal S1, Normal S2, No murmurs Abdomen: Bowel Sounds Present, Soft, Non Tender, - - normal bowel sounds Extremities: No clubbing, No cyanosis, No edema, Capillary Refill Less than 3 Seconds Skin: No rashes, No breakdown Musculoskeletal: No Tenderness to Palpation of Joints or Extremities Lymphatic: No Cervical, Supraclavicular, or Inguinal Adenopathy Neurological: Cranial nerves II-XII grossly intact, Motor Exam 5/5 strength throughout Psych/Mental Status: Normal Affect, Appropriate, Alert and oriented to time, place, person, mood and affect Laboratory Results 03/28/18 11:00: POC Glucose 124 H 03/28/18 11:30: WBC 5.3, RBC 3.99 L, Hgb 10.7 L, Hct 34.1 L, MCV 85.5, MCH 26.8 L, MCHC 31.4 L, RDW 15.1 H, RDW Differential 47.1 H, Plt Count 129 L, MPV 9.2, Immature Gran % (Auto) 0.200, Neut % (Auto) 54.3, Lymph % (Auto) 32.3, [place] % ( Auto) 9.2, Eos % (Auto) 3.8, Baso % (Auto) 0.2, Absolute Neuts (auto) 2.9, Absolute Lymphs (auto) 1.72, Total Counted Not Reportable 03/28/18 11:30: Sodium 142, Potassium 3.4 L, Chloride 108 H, Carbon Dioxide 27.0 , Anion Gap 7, BUN 7, Creatinine 0.51 L, Estim Creat Clear Calc 43.77, Est GFR ( MDRD) Af Amer 154, Est GFR (MDRD) Non-Af 127, BUN/Creatinine Ratio 13.6, Glucose 138 H, Calcium 8.3 L, Magnesium 1.7 03/28/18 16:01: POC Glucose 120 H 03/28/18 21:43: POC Glucose 118 H 03/29/18 05:00: Sodium 145, Potassium 3.7, Chloride 109 H, Carbon Dioxide 29.0, Anion Gap 7, BUN 5 L, Creatinine 0.52 L, Estim Creat Clear Calc 43.77, Est GFR ( MDRD) Af Amer 153, Est GFR (MDRD) Non-Af 127, BUN/Creatinine Ratio 9.7 L, Glucose 124 H, Calcium 8.1 L 03/29/18 05:00: WBC 5.9, RBC 3.86 L, Hgb 10.4 L, Hct 33.3 L, MCV 86.3, MCH 26.9 L, MCHC 31.2 L, RDW 15.4 H, RDW Differential 48.5 H, Plt Count 129 L, MPV 9.1, Immature Gran % (Auto) 0.200, Neut % (Auto) 47.2, Lymph % (Auto) 40.7, [place] % ( Auto) 5.8, Eos % (Auto) 5.9 H, Baso % (Auto) 0.2, Absolute Neuts (auto) 2.8, Absolute Lymphs (auto) 2.40, Total Counted Not Reportable 03/29/18 06:47: POC Glucose 125 H Current Medications Amlodipine Besylate (Norvasc) 5 mg PO DAILY [facility] Last Admin: 03/29/18 09:16 Dose: 5 mg Atorvastatin Calcium (Lipitor) 20 mg PO QHS [facility] Last Admin: 03/28/18 22:20 Dose: 20 mg Chlorhexidine Gluconate () 1 each TOPICAL DAILY [facility] Last Admin: 03/29/18 09:25 Dose: Not Given Dextrose (D50w Syringe) 0 gm IV X1 PRN; Protocol PRN Reason: Hypoglycemia Enoxaparin Sodium (Lovenox) 40 mg SC DAILY@1000 [facility] Last Admin: 03/29/18 09:16 Dose: 40 mg Fenofibrate (Tricor) 145 mg PO DAILY@2200 [facility] Last Admin: 03/28/18 22:20 Dose: 145 mg Gabapentin (Neurontin) 300 mg PO TIDCM [facility] Last Admin: 03/29/18 09:17 Dose: 300 mg Glucagon () 1 mg IM .X1 PRN PRN Reason: Hypoglycemia Hydroxyzine HCl (Atarax Tablet) 10 mg PO Q8H PRN PRN PRN Reason: ITCHING Last Admin: 03/27/18 22:15 Dose: 10 mg Sodium Chloride () 1,000 mls @ 75 mls/hr IV .[id number] [facility] Last Admin: 03/29/18 05:34 Dose: 75 mls/hr Pantoprazole Sodium 40 mg/ (Sodium Chloride) 110 mls @ 330 mls/hr IV Q24 [facility] Last Admin: 03/29/18 09:25 Dose: 330 mls/hr Piperacillin Sod/Tazobactam Sod (Zosyn) 3.375 gm in 50 mls @ 12.5 mls/hr IV Q8 [facility] Stop: 04/01/18 17:59 Last Admin: 03/29/18 05:33 Dose: 12.5 mls/hr Insulin Human Lispro (Humalog Kwikpen (Bkc)) 0 unit SQ TIDAC [facility] PRN Reason: Protocol Last Admin: 03/29/18 07:43 Dose: Not Given Lacosamide (Vimpat) 200 mg PO BID [facility] Last Admin: 03/29/18 09:17 Dose: 200 mg Linagliptin (Tradjenta) 5 mg PO DAILY [facility] Last Admin: 03/29/18 09:17 Dose: 5 mg Magnesium Hydroxide (Milk Of Magnesia) 30 ml PO DAILY PRN PRN PRN Reason: Constipation Mirtazapine (Remeron) 45 mg PO QHS [facility] Last Admin: 03/28/18 22:20 Dose: 45 mg Ondansetron HCl (Zofran) 4 mg IV Q6H PRN PRN PRN Reason: NAUSEA Last Admin: 03/27/18 14:45 Dose: 4 mg Promethazine HCl (Phenergan) 6.25 mg IV Q6H PRN PRN PRN Reason: NAUSEA/VOMITING Last Admin: 03/28/18 21:35 Dose: 6.25 mg Ramipril (Altace) 5 mg PO DAILY [facility] Last Admin: 03/29/18 09:17 Dose: 5 mg Sodium Chloride () 5 - 30 ml IV UD PRN PRN Reason: SALINE FLUSH Last Admin: 03/29/18 05:13 Dose: 10 ml Tolterodine Tartrate (Detrol La) 2 mg PO HS [facility] Last Admin: 03/28/18 22:20 Dose: 2 mg Medical Necessity - Tobacco Use Smoking Status: Never smoker Tobacco Use: Non-smoker Assessment/Plan All Active Problems (Last Reviewed 03/25/18 @ 14:51 by Karel Max DO) Septic shock (Acute) UTI (urinary tract infection) (Acute) Vaginal bleeding (Acute) Febrile illness, acute (Acute) Pseudoseizure (Acute) Breakthrough seizure (Acute) 1. UTI * Admitted with septic shock due to UTI. Shock is resolved and patient is off vasopressors. * fever has resolved. * has no leucocytosis * blood culture showed no growth after 48 hours; urinc cultured ESBL and E. Coli. started on PO augmentin, but developed a rash. Tolerated IV zosyn, so to have IV zosyn for a total of 6 days. * * 2. Small bowel ileus * has NG tube to intermittent suction; resolving. * minimal drainage from NG tube * tolerated sips yesterday; tolerated clear liquids today. To remove NG tube and advance to full liquids as tolerated. * passing gas * * currently on sips; to continue and assess for resolution of ileus * 3. Hypertension: * BP meds were initially held on account of hypotension on admission. * Blood pressure now ranging in the 140s-160s systolic. On ramipril and amlodipine. 4. Type 2 diabetes mellitus * currently on ISS nad tradjenta. Had been hyperglycemic during this adamission. Sugars Now in 140s-150s. * accuchecks q6 * 5. Hypomagnesemia * resolved * 6. constipation: says she hasnt had a bowel movement since admission. Will give suppository bisacodyl 7. Thrombocytopenia: platelets 129 today. baseline ~ 205 in 11/14. Was 144 on admission. Will monitor * 8. Hyperlipidemia: on statin 9. Chronic atrial fibrillation: rate controlled. Not on any beta wiley per meds. 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 Tachybrady syndrome s/p pacemaker: stable. 11. DVT prophylaxis: heparin 12. GI prophylaxis; PPI; will stop pantoprazole drip and started on PO pantoprazole. This note was generated with [employer] dictation software. It may contain incorrect words, spelling, and punctuation that were not noted in checking the note before signing. Code Visit Inpatient E&M: 08696 [facility] Hosp L3
[2018-03-29] MEDS: Insulin Lispro 100 UNIT/ML INSULN.PEN SQ (11:49)
[2018-03-29 12:00] LABS: Bedside Glucose 158 mg/dL (70-110)
[2018-03-29 16:36] LABS: Bedside Glucose 110 mg/dL (70-110)
[2018-03-29] MEDS: Fenofibrate 145 MG Tablet PO (21:48)
[2018-03-29] MEDS: Tolterodine Tartrate 2 MG CAP.SA PO (21:48)
[2018-03-29] MEDS: Atorvastatin Calcium 20 MG Tablet PO (21:48)
[2018-03-29] MEDS: Mirtazapine 15 MG Tablet 45 MG PO (21:48)
[2018-03-29 22:00] LABS: Bedside Glucose 147 mg/dL (70-110)
[2018-03-30] VITALS (8 sets, daily range): BP systolic 134–156; BP diastolic 66–89; PULSE 60–72; RESP 14–18; TEMP 36.3–36.6; O2SAT 92–94
[2018-03-30] MEDS: Piperacil/Tazobactam 3.375 GM/50 ML ML IV (05:01)
[2018-03-30 06:56] LABS: Bedside Glucose 147 mg/dL (70-110)
[2018-03-30 08:57] LABS: Absolute Lymphocyte Count 2.44 X10^3/ul (0.83-4.51); Absolute Neutrophil Count 2.4 X10^3/uL (2.0-7.7); Basophil# 0.02 X10^3/uL; Basophil% 0.4 % (0-1); Eosinophil# 0.27 X10^3/uL; Eosinophils% 4.8 % (0-5); Hematocrit 34.2 % (37-47); Hemoglobin 10.5 g/dl (12.0-15.0); Lymphocyte # 2.44 X10^3/ul (4.0); Lymphocyte % 43.6 % (19-41); Mean Corp Hgb Conc 30.7 g/gl (32-36); Mean Corpuscular Hgb 26.6 pg (27.0-32.0); Mean Corpuscular Volume 86.6 fL (81-99); Mean Platelet Vol. 9.4 fl (6.2-12.0); Monocyte% 7.1 % (0-10); Neutrophil # 2.42 X10^3/uL (2.7-7.7); Neutrophil % 43.2 % (47-70); POSITIVE COUNT NO; POSITIVE DIFFERENTIAL NO; POSITIVE MORPHOLOGY NO; Platelet Count 132 K/mm3 (150-450); RBC Distribution Width CV 15.2 % (11.6-14.6); RBC Distribution Width SD 47.5 fl (35.1-43.9); Red Blood Count 3.95 M/mm3 (4.2-5.4); White Blood Count 5.6 K/mm3 (4.4-11.0)
[2018-03-30 09:07] LABS: Anion Gap 7 (5-15); BUN 4 mg/dL (7-18); BUN/Creat Ratio 6.3 RATIO (10-20); Calcium,Total 8.6 mg/dL (8.5-10.1); Chloride 107 mmol/L (98-107); Creatinine, Serum 0.64 mg/dL (0.55-1.02); EST Glomerular Filtration Rate 99 mL/min (>60); Est Glom Filt Rate - Afr Amer 120 mL/min (>60); Estimated Creatinine Clearance 43.77 ml/min; Glucose 188 mg/dL (74-106); Potassium 3.5 mmol/L (3.5-5.1); Sodium Level 143 mmol/L (136-145)
[2018-03-30] MEDS: Pantoprazole Sodium 40 MG Tablet PO (09:09)
[2018-03-30] MEDS: Lacosamide 100 MG Tablet 200 MG PO (09:09)
[2018-03-30] MEDS: Ramipril 5 MG Capsule PO (09:09)
[2018-03-30] MEDS: LINAGLIPTIN 5 MG TABLET PO (09:09)
[2018-03-30] MEDS: Gabapentin 300 MG Capsule PO ×2 (09:09→11:37)
[2018-03-30] MEDS: amLODIPine 5 MG Tablet PO (09:09)
[2018-03-30] MEDS: Enoxaparin 40 MG/0.4 ML Syringe SC (09:12)
[2018-03-30 11:30] LABS: Bedside Glucose 178 mg/dL (70-110)
[2018-03-30] MEDS: Insulin Lispro 100 UNIT/ML INSULN.PEN SQ (11:37)
--- NOTE | 2018-03-30 11:52 | DCINST_ITS ---
- Discharge Diagnoses Current Active Problems: Current Active and Chronic Problems (Last Reviewed 03/25/18 @ 14:51 by Karel Max DO) Septic shock (Acute) UTI (urinary tract infection) (Acute) You will use the following diet at home:: Cardiac Your food should be the consistency of: Regular Your liquids should be the consistency of: Regular/Thin Weight Bearing Status: Weight bearing as tolerated Call your doctor if you observe: Fever of 101 or Higher Allergies/Adverse Reactions: Allergies amoxicillin [From Augmentin] Allergy (Verified 03/30/18 09:34) Rash RASH ON FACE clavulanic acid [From Augmentin] Allergy (Verified 03/30/18 09:34) Rash RASH ON FACE escitalopram [From Lexapro] Allergy (Verified 03/25/18 12:48) Rash shellfish derived Allergy (Verified 03/25/18 12:48) Unknown hydroxychloroquine [From Plaquenil] Adverse Reaction (Severe, Verified 03/25/18 12:48) Unknown perfume Adverse Reaction (Verified 03/25/18 12:48) Unknown pineapple Adverse Reaction (Verified 03/25/18 12:48) Rash quinine Adverse Reaction (Verified 03/25/18 12:48) Unknown strawberry Adverse Reaction (Verified 03/25/18 12:48) Rash Sulfa (Sulfonamide Antibiotics) Adverse Reaction (Verified 03/25/18 12:48) Unknown DUST Adverse Reaction (Uncoded 03/25/18 12:48) Unknown Medications to take at Discharge Metformin HCl [Glucophage] 1,000 mg PO BIDCM 04/08/17 Simvastatin [Zocor] 40 mg PO QHS 04/08/17 Oxybutynin Chloride [Ditropan Xl] 5 mg PO DAILY 05/20/17 Amlodipine [Norvasc] 5 mg PO DAILY 10/06/17 Hydroxyzine HCl 10 - 20 mg PO Q8H PRN PRN 10/07/17 gabapentin 300 mg capsule 300 mg PO TID 20 Days #60 01/28/18 mirtazapine 15 mg tablet 45 mg PO QHS tab 01/28/18 ramipril 5 mg capsule 5 mg PO DAILY 90 Days #90 01/28/18 Fenofibric Acid [Fenoglide] 135 mg PO DAILY 03/25/18 Lacosamide [Vimpat] 200 mg PO BID 03/25/18 Nitrofurantoin Monohyd/M-Cryst [Macrobid 100 mg Capsule] 100 mg PO BID 03/25/18 Sitagliptin Phosphate [Januvia] 50 mg PO DAILY 03/25/18 Primary Care Physician: Hannah Riggs DO [Primary Care Provider] - Please follow up with your Primary Care Physician in: one week Test Results: Test results from this visit will be discussed in further detail at your follow- up appointment, if applicable. Proposed Discharge Date: 03/30/18
--- NOTE | 2018-03-30 11:52 | PCM.DC.SUM ---
Discharge Date and Diagnosis Date of Admission: 03/25/18 Date of Discharge: 03/30/18 - Primary Discharge Diagnosis Active and Suspected Problems (Last Reviewed 03/25/18 @ 14:51 by Karel Max DO) Septic shock (Acute) UTI (urinary tract infection) (Acute) - Secondary Discharge Diagnosis Chronic Problems (Last Reviewed 03/25/18 @ 14:51 by Karel Max DO) Encounter for long-term current use of high risk medication (Chronic) Encounter for long-term current use of high risk medication (Chronic) Presence of cardiac pacemaker (Chronic) Junctional rhythm (Chronic) Tachy-maurizio syndrome (Chronic) Bradycardia (Chronic) Atrial fibrillation (Chronic) Atrial fibrillation with RVR (Chronic) HLD (hyperlipidemia) (Chronic) HTN (hypertension) (Chronic) Diabetes (Chronic) Hypertensive emergency without congestive heart failure (Chronic) New onset a-fib (Chronic) SDH (subdural hematoma) (Chronic) Seizure (Chronic) Hospital Course and Treatment Imaging Results: Diagnostic Data Renal Ultrasound 03/25/18 16:16 IMPRESSION: Normal size of the right kidney. Multiple echogenic foci, potential renal stones. The largest measures approximately 1 cm in the upper pole. Negative for hydronephrosis. Normal size of the left kidney. Multiple tiny echogenic foci too small to measure, potential renal stones. Negative for hydronephrosis. Unremarkable urinary bladder. Bilateral ureteral jets are demonstrated. Electronically Signed: Georgia Myers MD at 23:40 EDT , Service support , Chest X-Ray 03/25/18 17:40 IMPRESSION: Right central venous catheter ends at the atriocaval junction without complication of line placement. Mild atelectatic changes in the right middle lung zone and left lung base. Mild cardiomegaly with right atrial and ventricular pacemaker in good position. Electronically Signed: Georgia Myers MD at 17:56 EDT , Service support , KUB X-Ray 03/27/18 07:15 IMPRESSION: Feeding tube extends to the stomach in the left upper quadrant. Electronically Signed: Darrell Prado MD at 11:37 EDT , Service support , Microbiology Past 72 Hours 03/25/18 12:45 Blood Culture - Final Blood Culture (Wb) - Left Wrist No growth in 5 days. 03/25/18 13:24 Blood Culture - Final Blood Culture (Wb) - Right Wrist No growth in 5 days. 03/25/18 13:40 Urine Culture - Final Urine, Catheterized Escherichia coli Actinomyces species Laboratory Tests Past 24 Hrs 03/30/18 03/30/18 08:35 08:35 WBC 5.6 RBC 3.95 L Hgb 10.5 L Hct 34.2 L MCV 86.6 MCH 26.6 L MCHC 30.7 L RDW 15.2 H RDW Differential 47.5 H Plt Count 132 L MPV 9.4 Immature Gran % (Auto) 0.900 Neut % (Auto) 43.2 L Lymph % (Auto) 43.6 H [place] % (Auto) 7.1 Eos % (Auto) 4.8 Baso % (Auto) 0.4 Absolute Neuts (auto) 2.4 Absolute Lymphs (auto) 2.44 Total Counted Not Reportable Sodium 143 Potassium 3.5 Chloride 107 Carbon Dioxide 29.0 Anion Gap 7 BUN 4 L Creatinine 0.64 Estim Creat Clear Calc 43.77 Est GFR (MDRD) Af Amer 120 Est GFR (MDRD) Non-Af 99 BUN/Creatinine Ratio 6.3 L Glucose 188 H Calcium 8.6 Operations: None Procedures: None Summary of Care Provided: The patient is a 68 year old F with a past medical history of hypertension, diabetes, tachybradycardia syndrome, atrial fibrillation, and seizure disorder. She was admitted by the ED on 03/25/2018 with complaint of worsening fever, lethargy and shortness of breath. She had been seen at her doctor's office on March 22 was diagnosed with a UTI based on urinalysis and started on Macrobid. She improved somewhat but order for night, started to have increasing fever, chills and lethargy. In the ED, she was found to be in septic shock with elevated lactic acid of 4.8. She received IV fluids based on sepsis protocol started on IV vancomycin and IV Zosyn pending cultures. Patient subsequently improved and was transferred out of the ICU. She was however noted to have small bowel ileus which improved with conservative management of the NG tube was passed and patient was kept N.p.o. for couple of days. Blood cultures were negative and urine culture E. coli (ESBL) and Actinomyces species. Quite some was stopped and patient was continued on Zosyn. She was switched to oral Augmentin currently developed a rash on her face right afterwards. Due to numerous drug allergies of patient, after conferring with ID, decision was made to continue patient on IV Zosyn for total of 6 days course. Patient was started on IV Zosyn on 03/25/2018 and completed a 6 day course on 03/30/2018. She was discharged home on 03/30/2018 and is to follow-up with her primary care doctor in 1 week. Of note, allergy to Augmentin was entered into the computer on account of facial rash that she developed. [] Discharge Diet: 2000 mg Sodium Diet Weight Bearing Status: Weight bearing as tolerated Call your doctor if you observe: Fever of 101 or Higher Home Medications: Medications to take at Discharge Metformin HCl [Glucophage] 1,000 mg PO BIDCM 04/08/17 Simvastatin [Zocor] 40 mg PO QHS 04/08/17 Oxybutynin Chloride [Ditropan Xl] 5 mg PO DAILY 05/20/17 Amlodipine [Norvasc] 5 mg PO DAILY 10/06/17 Hydroxyzine HCl 10 - 20 mg PO Q8H PRN PRN 10/07/17 gabapentin 300 mg capsule 300 mg PO TID 20 Days #60 01/28/18 mirtazapine 15 mg tablet 45 mg PO QHS tab 01/28/18 ramipril 5 mg capsule 5 mg PO DAILY 90 Days #90 01/28/18 Fenofibric Acid [Fenoglide] 135 mg PO DAILY 03/25/18 Lacosamide [Vimpat] 200 mg PO BID 03/25/18 Nitrofurantoin Monohyd/M-Cryst [Macrobid 100 mg Capsule] 100 mg PO BID 03/25/18 Sitagliptin Phosphate [Januvia] 50 mg PO DAILY 03/25/18 Primary Care Physician: Hannah Riggs DO [Primary Care Provider] - Please follow up with your Primary Care Physician in: one week Disposition: Home Minutes spent on discharge:: 35 Patient Condition:: Stable Medical Necessity - Tobacco Use Smoking Status: Never smoker Tobacco Use: Non-smoker Meaningful Use Info Meaningful Use Diagnoses (Choose all that apply): None applicable Code Visit Inpatient E&M: 42622 Disch Hosp
== END 2018-03-30 12:41 | disposition home or self-care (01) | DRG 871 ==
LOC: ED 15:02 → ICU 15:05 → PCU 03-27 10:55
PROVIDERS: Internal Medicine; Internal Medicine Critical Care Medicine; Emergency Provider Emergency Medicine; Family Provider Internal Medicine; PCP Internal Medicine; Visit Provider Student in an Organized Health Care Education/Training Program
DX: A41.9 Sepsis, unspecified organism (principal); R65.21 Severe sepsis with septic shock; G93.41 Metabolic encephalopathy; N39.0 Urinary tract infection, site not specified; I16.1 Hypertensive emergency; E87.2 Acidosis; K56.7 Ileus, unspecified; Z95.0 Presence of cardiac pacemaker; E78.5 Hyperlipidemia, unspecified; E11.51 Type 2 diabetes mellitus with diabetic peripheral angiopathy without gangrene; I48.0 Paroxysmal atrial fibrillation; I10 Essential (primary) hypertension; E66.9 Obesity, unspecified; Z68.32 Body mass index [BMI] 32.0-32.9, adult; Z71.3 Dietary counseling and surveillance; E83.51 Hypocalcemia; E11.65 Type 2 diabetes mellitus with hyperglycemia; L27.0 Generalized skin eruption due to drugs and medicaments taken internally; T36.0X5A Adverse effect of penicillins, initial encounter; E83.42 Hypomagnesemia; I48.2 Chronic atrial fibrillation; D69.6 Thrombocytopenia, unspecified; R56.9 Unspecified convulsions; E83.39 Other disorders of phosphorus metabolism
CPT/HCPCS: 36415; 71045; 74018; 76770; 80048; 80053; 80076; 81001; 82962; 83605; 83735; 84100; 84484; 85025; 85027; 85610; 85730; 87040; 87077; 87086; 87088; 87186; 87641; 93005; 97161; 97165; 97802; 97803; 99285; J7030; J7040; J7050; P9612; A4216; C1751; J0610; J2405

== ENCOUNTER → 2018-04-15 11:20 | Outpatient (CLI) | payer MEDICARE, SELFPAY ==
[2018-04-15 12:23] LABS: Protein, Urine (Random) 63.9 mg/dL (<11.9); Protein:Creat Ratio 1411 mg/g CRE (0-200)
[2018-04-15 12:53] LABS: Albumin, Serum 3.9 g/dL (3.2-5.0); BUN 18 mg/dL (7-18); BUN/Creat Ratio 25.2 RATIO (10-20); Calcium,Total 9.4 mg/dL (8.5-10.1); Chloride 106 mmol/L (98-107); Creatinine, Serum 0.71 mg/dL (0.55-1.02); EST Glomerular Filtration Rate 87 mL/min (>60); Est Glom Filt Rate - Afr Amer 105 mL/min (>60); Glucose 128 mg/dL (74-106); Phosphorus 3.3 mg/dL (2.5-4.9); Potassium 4.8 mmol/L (3.5-5.1); Sodium Level 139 mmol/L (136-145)
== END ==
PROVIDERS: Family Provider Internal Medicine; PCP Internal Medicine; Visit Provider Internal Medicine Nephrology
DX: R80.9 Proteinuria, unspecified (principal)
CPT/HCPCS: 36415; 80069; 82570; 84156

== ENCOUNTER → 2018-05-18 16:29 | Outpatient (CLI) | payer MEDICARE, SELFPAY ==
[2018-05-18 17:32] LABS: Potassium 4.8 mmol/L (3.5-5.1)
== END ==
PROVIDERS: Family Provider Internal Medicine; PCP Internal Medicine; Visit Provider Internal Medicine
DX: E87.5 Hyperkalemia (principal)
CPT/HCPCS: 36415; 84132

== ENCOUNTER → 2018-06-09 11:23 | Outpatient (CLI) | payer MEDICARE, SELFPAY ==
[2018-06-09 12:38] LABS: Valproic Acid (Depakene) Level 65 ug/mL (50-100)
== END ==
PROVIDERS: Family Provider Internal Medicine; PCP Internal Medicine; Referring Provider Psychiatry & Neurology Neurology; Visit Provider Psychiatry & Neurology Neurology
DX: G40.019 Localization-related (focal) (partial) idiopathic epilepsy and epileptic syndromes with seizures of localized onset, intractable, without status epilepticus (principal)
CPT/HCPCS: 36415; 80164

== ENCOUNTER → 2018-08-01 14:42 | Outpatient (CLI) | payer MEDICARE, SELFPAY ==
[2018-08-01 13:11] VITALS: BMI 32.1
[2018-08-01 15:55] LABS: Protein, Urine (Random) 187.8 mg/dL (<11.9); Protein:Creat Ratio 2260 mg/g CRE (0-200)
[2018-08-01 16:08] LABS: Albumin, Serum 3.5 g/dL (3.2-5.0); BUN 20 mg/dL (7-18); BUN/Creat Ratio 24.9 RATIO (10-20); Calcium,Total 9.1 mg/dL (8.5-10.1); Chloride 104 mmol/L (98-107); EST Glomerular Filtration Rate 76 mL/min (>60); Est Glom Filt Rate - Afr Amer 92 mL/min (>60); Glucose 150 mg/dL (74-106); Phosphorus 3.5 mg/dL (2.5-4.9); Potassium 4.7 mmol/L (3.5-5.1); Sodium Level 141 mmol/L (136-145)
== END ==
PROVIDERS: Family Provider Internal Medicine; PCP Internal Medicine; Referring Provider Internal Medicine Nephrology; Visit Provider Internal Medicine Nephrology
DX: R80.9 Proteinuria, unspecified (principal)
CPT/HCPCS: 36415; 80069; 82570; 84156

== ENCOUNTER → 2018-08-17 11:53 | Outpatient (CLI) | payer MEDICARE, SELFPAY ==
[2018-08-01 13:11] VITALS: BMI 32.1
[2018-08-17 13:19] LABS: ALB/GLOB Ratio 0.7 RATIO (0.9-2.4); AST(SGOT) 21 U/L (15-37); Alanine Aminotransfer ALT/SGPT 7 U/L (13-56); Albumin, Serum 3.4 g/dL (3.2-5.0); Alkaline Phosphatase 57 U/L (45-117); Anion Gap 12 (5-15); BUN 15 mg/dL (7-18); BUN/Creat Ratio 15.5 RATIO (10-20); Calcium,Total 9.4 mg/dL (8.5-10.1); Chloride 104 mmol/L (98-107); Creatinine, Serum 0.97 mg/dL (0.55-1.02); EST Glomerular Filtration Rate 61 mL/min (>60); Est Glom Filt Rate - Afr Amer 74 mL/min (>60); Globulin 5.1 g/dL (2.2-4.2); Glucose 165 mg/dL (74-106); Potassium 4.4 mmol/L (3.5-5.1); Protein, Total 8.5 g/dL (6.4-8.2); Sodium Level 143 mmol/L (136-145)
[2018-08-17 13:24] LABS: Valproic Acid (Depakene) Level 55 ug/mL (50-100)
--- OUTSIDE RECORDS SUMMARY | 2018-11-18 16:12 | XMS RPT_ITS | Continuity of Care Document ---
:1950 Author Organization [facility] Address [address] [place] [address] Phone Care Team Providers Name Role Phone Hannah Leos DO Unavailable Rasta Alvarezine Unavailable Jana Hughes Unavailable WALDO Shields Unavailable Unavailable Long Shea HAAS Unavailable Unavailable Jessica Bliss Unavailable Unavailable Allie Gustafson Unavailable Unavailable Slarb SLUNK SKINNER, Deidra Unavailable Unavailable Unavailable Unavailable Problems Name Dates Details Abnormal cardiac function test (R94.30, 794.30) Status: Active Abnormal CT of brain (R90.89, 793.0) Status: Active Abnormal EKG (R94.31, 794.31) Status: Active Abnormal urine (R82.90, 791.9) Status: Active Abnormality of gait (R26.9, 781.2) Status: Active Allergic rhinitis (J30.9, 477.9) Status: Active Altered mental status, unspecified altered mental status type (R41.82, 780.97) Status: Active Annual Medicare Phyiscal WITHOUT abnormal findings (Renamed from Encounter for general adult medical examination without abnormal findings) (Z00.00, V70.9) Status: Active Antiphospholipid syndrome (D68.61, 289.81) Comments: per oncology dismisssd this dx and then discont her anti coaulation Status: Active Atrial fibrillation, unspecified type (I48.91, 427.31) Comments: had rapid rate but got controlled-- no anticoagulation bc of too hi risk even though her anti phospholipid dx was ruled not a dx per heme/onc Status: Active BMI 31.0-31.9,adult (Z68.31, V85.31) Status: Active Body mass index 29.0-29.9, adult (Z68.29, V85.25) Status: Active Breast Mass Removed- Benign 1997? 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 Monitors at home and brought her monitor today to assure readings were accurate. Status: Active Elevated serum globulin level (R77.1, 790.99) Status: Active Encounter for screening for malignant neoplasm of colon (Renamed from Special screening for malignant neoplasms, colon) (Z12.11, V76.51) Comments: pt derferred cologard for now to keep things simple with every thing else going on Status: Active Encounter for screening mammogram for breast cancer (Renamed from Visit for screening mammogram) (Z12.31, V76.12) Status: Active GERD (gastroesophageal reflux disease) (K21.9, 530.81) Status: Active Glucosuria (R81, 791.5) Status: Active Gout (M10.9, 274.9) Status: Active Hematuria, gross (R31.0, 599.71) Comments: trace in catheter specimen- will send for culture before treat Status: Active History of anemia (Z86.2, V12.3) Status: Active Hypercholesterolemia (E78.00, 272.0) Status: Active Hyperkalemia (E87.5, 276.7) Status: Active Hyperlipidemia (E78.5, 272.4) Status: Active Hypertension with renal disease (I12.9, 403.90) Status: Active Hysterectomy, Total Status: Active Ileus (K56.7, 560.1) Status: Active Left elbow pain (M25.522, 719.42) Status: Active Leukopenia (D72.819, 288.50) Comments: stable Status: Active Lightheaded (R42, 780.4) Status: Active Need for prophylactic vaccination and inoculation against influenza (Z23, V04.81) Status: Active Nonsmoker (Z78.9, V49.89) Status: Active Osteoarthritis (M19.90, 715.90) Comments: stable cold weather aggravates it Status: Active Other specified abnormal findings of blood chemistry (R79.89, 790.6) Comments: abn chemistrry with hi prot and globulin fraction Status: Active OTHER SPECIFIED INFLAMMATORY POLYARTHROPATHIES, OTHER (714.89) Status: Active Pacemaker (Z95.0, V45.01) Comments: october 2017 Status: Active Pharyngitis, acute (J02.9, 462) Comments: if not better by get atb think starting viral Status: Active Pneumococcal vaccination given (Z23, V06.6) Status: Active Postmenopausal (Renamed from Postmenopausal status) (Z78.0, V49.81) Comments: last dexa 2015 Status: Active Protein in urine (R80.9, 791.0) Status: Active Pyelonephritis, unspecified (N12, 590.80) Status: Active Recurrent sepsis due to urinary tract infection (A41.9, 038.9) Status: Active Right hip pain (M25.551, 719.45) Status: Active Right leg swelling (M79.89, 729.81) Status: Active Screening breast examination (Z12.31, V76.10) Status: Active Seizure (R56.9, 780.39) Status: Active Seizure (R56.9, 780.39) Status: Active Seizure syndrome (G40.909, 345.90) Comments: tremor in office with finger tip while in office going to see Dyana, will see in [place] Status: Active Sepsis with hypotension (A41.9, 038.9) Status: Active Sore throat (J02.9, 462) Status: Active Stress incontinence, female (N39.3, 625.6) Comments: stable - keep doing kegal exercise s Status: Active Type 2 diabetes mellitus, controlled, 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, 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) Status: Active Uncontrolled type II diabetes mellitus (E11.65, 250.02) Comments: pt didnt want more meds so will chg diet --- it went up at next visiti so increased metformin Status: Active Undefined pain syndrome (R52, 780.96) Status: Active Urinary frequency (R35.0, 788.41) Status: Active Urinary incontinence (R32, 788.30) Status: Active Urine leukocytes (R82.99, 791.7) Status: Active UTI (urinary tract infection) (N39.0, 599.0) Status: Active UTI (urinary tract infection) (N39.0, 599.0) Status: Active UTI (urinary tract infection), bacterial (N39.0, 599.0) Status: Active UTI (urinary tract infection), bacterial (N39.0, 599.0) Comments: while at [facility] -- E coli in culture and she was already sent home Status: Active Vaginal bleeding (N93.9, 623.8) Status: Active Vitamin D deficiency, unspecified (E55.9, 268.9) 16-Sep-2011 Status: Active Medications Name Dates Details Alendronate Sodium 70 MG Oral Tablet 1 (one) Tablet q weekly for 0 days Quantity: 12 {Tablet} Refills: 3 Ordered:21-Mar-2018 Karthikeyan Leos DO, DO, Kathleen Start : 21-Mar-2018 Active Altace 5 MG Oral Capsule 1 (one) Capsule daily for 30 days Quantity: 30 {Capsule} Refills: 3 Ordered:21-Mar-2018 Karthikeyan Leos DO, DO, Kathleen Start : 21-Mar-2018 Active Fexofenadine HCl 30 MG Oral Tablet Disintegrating 1 qd (30 MG) Active Gabapentin 300 MG Oral Capsule 1 (one) Capsule tid for 30 days Quantity: 90 {Capsule} Refills: 3 Ordered:21-Mar-2018 Karthikeyan Leos DO, DO, Kathleen Start : 21-Mar-2018 Active HydrOXYzine HCl 10 MG Oral Tablet 1 (one) Milligram 1-2 q8h prn for 0 days Quantity: 30 {Milligram} Refills: 3 Ordered:21-Mar-2018 Karthikeyan Leos DO, DO, Kathleen Start : 21-Mar-2018 Active Januvia 50 MG Oral Tablet 1 (one) Tablet Tablet qam with first meal for 0 days Quantity: 30 {Tablet} Refills: 3 Ordered:25-Jul-2018 Selma Merritt DO Start : 25-Jul-2018 Active LaMICtal 100 MG Oral Tablet 1 (one) Tablet qd - titrating for 30 days Quantity: 30 {Tablet} Refills: 3 Ordered:16-May-2018 Karthikeyan Leos DO, DO, Kathleen Start : 16-May-2018 Active MetFORMIN HCl ER 500 MG Oral Tablet Extended Release 24 Hour 2 (two) Tablet ER 24HR twice daily for 0 days Quantity: 360 {Tablet} Refills: 3 Ordered:21-Mar-2018 Karthikeyan Leos DO, DO, Kathleen Start : 21-Mar-2018 Active Mirtazapine 30 MG Oral Tablet 1 qhs (30 MG) Active MULTIVITAMIN (PO Chew Tab) 2 Daily for 0 days Refills: 0 Ordered:21-Aug-2009 Jessica Shieldstive Norvasc 5 MG Oral Tablet 1 (one) Tablet Tablet daily for 0 days Quantity: 30 {Tablet} Refills: 3 Ordered:13-Jul-2018 Selma Merritt DO Start : 13-Jul-2018 Active OneTouch UltraSoft Lancets Miscellaneous 1 (one) Misc Misc bid for 30 days Quantity: 100 {Each} Refills: 11 Ordered:30-Sep-2017 Jessica Shields LPN Start : 30-Sep-2017 Active Comments:E11.29 OneTouch Verio In Vitro Solution 1 (one) Solution Solution bid for 90 days Quantity: 100 {Strip} Refills: 11 Ordered:30-Sep-2017 Jessica Shields WALDO Start : 30-Sep-2017 Active Comments:E11.29 Oxybutynin Chloride ER 5 MG Oral Tablet Extended Release 24 Hour 1 Tablet ER 24HR qd for 90 days Quantity: 90 {Tablet} Refills: 3 Ordered:21-Sep-2017 Karthikeyan Leos DO, DO, Kathleen Start : 21-Sep-2017 Active Oxybutynin Chloride ER 5 MG Oral Tablet Extended Release 24 Hour 1 Tablet ER 24HR qd for 0 days Refills: 0 Ordered:21-Sep-2017 Karthikeyan Leos DO, DO, Kathleen Start : 21-Sep-2017 Active Simvastatin 40 MG Oral Tablet 1 (one) Tablet daily for 90 days Quantity: 180 {Tablet} Refills: 3 Ordered:08-Jul-2017 Karthikeyan Leos DO, DO, Kathleen Start : 08-Jul-2017 Active Trilipix 135 MG Oral Capsule Delayed Release 1 (one) Capsule DR daily for 90 days Quantity: 90 {Capsule} Refills: 3 Ordered:23-Mar-2018 Shea May LPN Start : 23-Mar-2018 Active Trilipix 135 MG Oral Capsule Delayed Release 1 (one) Capsule DR daily for 90 days Quantity: 90 {Capsule} Refills: 3 Ordered:23-Mar-2018 Shea May LPN Start : 23-Mar-2018 Active True Metrix Blood Glucose Test In Vitro Strip 1 (one) Strip Strip bid for 0 days Quantity: 100 {Strip} Refills: 9 Ordered:07-Oct-2017 Deidra Arndt LPN Start : 07-Oct-2017 Active True Metrix Meter w/Device Kit 1 (one) Kit Kit uad for 0 days Quantity: 1 {Each} Refills: 0 Ordered:07-Oct-2017 Deidra Arndt LPN Start : 07-Oct-2017 Active Vimpat 200 MG Oral Tablet 1 Tablet bid for 0 days Quantity: 10 {Tablet} Refills: 0 Ordered:20-Sep-2017 Karthikeyan Leos DO, DO, Kathleen Start : 20-Sep-2017 Active Comments:please only do for 10 at a time to dispense per patient it is cheaper this way Altace 5 MG Oral Capsule 1 Capsule qd for 0 days Quantity: 90 {Capsule} Refills: 3 Ordered:08-Jun-2016 Cathy Kim Start : 04-Jun-2016 End : 08-Jun-2016 Inactive Altace 5 MG Oral Capsule 1 (one) Capsule qd for 90 days Quantity: 180 {Capsule} Refills: 1 Ordered:28-Jun-2017 Daniela Herzog CNP Start : 28-Jun-2017 End : 28-Jun-2017 Inactive Comments:per pharmasist cheaper to take this way (takes 7.5 per ) Amoxicillin-Pot Clavulanate 875-125 MG Oral Tablet 1 (one) Tablet BID for 10 days Quantity: 20 {Tablet} Refills: 0 Ordered:01-Feb-2017 Jessica Bliss Start : 01-Feb-2017 End : 11-Feb-2017 Inactive Comments:Take with food ANTIVERT, 25MG (Oral Tablet) 1 (one) Tablet TID prn for 0 days Refills: 0 Ordered:09-May-2007 Marce Sellers Start : 09-May-2007 End : 13-Apr-2008 Inactive ATIVAN, 0.5MG (Oral Tablet) 1 Tablet 30 prior to imaging for 0 days Quantity: 1 {Tablet} Refills: 0 Ordered:25-Dec-2010 Jessica Shields LPN Start : 06-Jun-2010 End : 25-Dec-2010 Inactive AUGMENTIN, 875-125MG (Oral Tablet) 1 Tablet bid for 14 days Quantity: 28 {Tablet} Refills: 0 Ordered:16-May-2009 Jessica Shields LPN Start : 16-May-2009 End : 05-Jun-2009 Inactive BYSTOLIC, 5MG (Oral Tablet) 1/2 Tablet Daily for 0 days Refills: 0 Ordered:13-Nov-2009 Jessica Shields LPN Start : 21-Aug-2009 Inactive CIPRO, 500MG (Oral Tablet) 1 Tablet BID for 0 days Quantity: 20 {Tablet} Refills: 0 Ordered:29-Jul-2012 Jessica Shields LPN Start : 18-Feb-2012 End : 29-Jul-2012 Inactive CLARINEX, 5MG (Oral Tablet) 1 (one) Tablet qd for 360 days Refills: 0 Ordered:20-Apr-2011 Jessica Shields LPN Start : 18-Feb-2010 End : 13-Feb-2011 Inactive Comments:by dr wyatt Hillman 0.6 MG Oral Tablet 1 (one) Tablet take 2 tabs then 1 at one hour later for 0 days Quantity: 3 {Tablet} Refills: 0 Ordered:05-Apr-2017 Jessica Shields LPN Start : 10-Mar-2017 End : 05-Apr-2017 Inactive Coumadin 5 MG Oral Tablet uad Tablet 5 days a week for 0 days Quantity: 120 {Tablet} Refills: 3 Ordered:14-Jun-2017 Jessica Shields LPN Start : 11-Jun-2017 End : 14-Jun-2017 Inactive Eliquis 2.5 MG Oral Tablet 1 Tablet bid for 0 days Quantity: 60 {Tablet} Refills: 0 Ordered:13-Oct-2017 Hair HAASDeidra Start : 21-Sep-2017 End : 13-Oct-2017 Inactive ERGOCALCIFEROL, 87045XALS (Oral Capsule) 2 Capsule q week for 0 days Quantity: 20 {Capsule} Refills: 1 Ordered:25-Dec-2010 Jessica Shields LPN Start : 11-Feb-2009 End : 25-Dec-2010 Inactive FISH OIL, 1000MG (Oral Capsule) 2 Capsule bid for 360 days Quantity: 120 {Capsule} Refills: 0 Ordered:29-Jul-2012 Karthikeyan Leos DO, DO, Kathleen Start : 29-Jul-2012 End : 24-Jul-2013 Inactive FOLGARD RX, 2.2-25-1MG (Oral Tablet) 1 Tablet qd for 0 days Quantity: 90 {Tablet} Refills: 3 Ordered:29-May-2014 Jessica Shields LPN Start : 08-Nov-2013 End : 29-May-2014 Inactive FOLIC ACID, 1MG (Oral Tablet) 1 qd for 0 days Refills: 0 Ordered:25-Dec-2010 Jessica Shields LPN End : 25-Dec-2010 Inactive GINSENG, 250MG (Oral Capsule) 2 Daily for 0 days Refills: 0 Ordered:13-Nov-2009 Jessica Shieldsnactive IMDUR, 30MG (Oral Tablet Extended Release 24 Hour) 1 (one) Tablet ER 24HR Daily for 0 days Quantity: 30 {Tablet_ER_24HR} Refills: 0 Ordered:13-Nov-2009 Jessica Shields LPN Start : 21-Aug-2009 Inactive Jardiance 10 MG Oral Tablet 1 (one) Tablet Tablet qd for 0 days Quantity: 30 {Tablet} Refills: 3 Ordered:20-Dec-2017 Jessica Shields LPN Start : 20-Sep-2017 End : 20-Dec-2017 Inactive Lacosamide 100 MG Oral Tablet 1 bid (100 MG) Inactive LEVAQUIN, 500MG (Oral Tablet) 1 (one) Tablet Daily for 0 days Quantity: 10 {Tablet} Refills: 0 Ordered:12-Nov-2006 Marce Sellers Start : 12-Nov-2006 End : 19-Oct-2007 Inactive LevETIRAcetam 750 MG Oral Tablet 2 Tablet bid for 0 days Quantity: 120 {Tablet} Refills: 0 Ordered:07-May-2017 Jessica Shields LPN Start : 14-Apr-2017 End : 07-May-2017 Inactive Macrobid 100 MG Oral Capsule 1 (one) Capsule bid for 10 days Quantity: 20 {Tablet} Refills: 0 Ordered:31-Mar-2018 Jessica Shields LPN Start : 24-Mar-2018 End : 31-Mar-2018 Inactive MACROBID, 100MG (Oral Capsule) 1 Capsule bid for 7 days Quantity: 14 {Capsule} Refills: 0 Ordered:25-Aug-2010 Mino SMITH Yadira Start : 25-Aug-2010 End : 01-Sep-2010 Inactive Medrol 4 MG Oral Tablet Therapy Pack 1 (one) Milligram TAD for 0 days Quantity: 1 {Package} Refills: 0 Ordered:05-Apr-2017 Jessica Shields LPN Start : 08-Mar-2017 End : 05-Apr-2017 Inactive Comments:with food METHOTREXATE, 2.5MG (Oral Tablet) 4 q week for 0 days Refills: 0 Ordered:13-Nov-2009 Jessica Shieldsnactive Metoprolol Tartrate 25 MG Oral Tablet 1 (one) Tablet bid for 0 days Quantity: 30 {Tablet} Refills: 3 Ordered:13-Oct-2017 Deidra Arndt LPN Start : 08-Jul-2017 End : 13-Oct-2017 Inactive NABUMETONE, 750MG (Oral Tablet) 1 Tablet QD for 0 days Quantity: 90 {Tablet} Refills: 3 Ordered:25-Aug-2006 Marce Sellers Start : 25-Aug-2006 End : 19-Oct-2007 Inactive NASONEX, 50MCG/ACT (Nasal Suspension) 2 (two) Suspension Daily for 0 days Refills: 0 Ordered:09-May-2007 Marce Sellers Start : 09-May-2007 End : 13-Apr-2008 Inactive NIACIN, 500MG (Oral Tablet) 3 Tablet QHS / HS for 0 days Quantity: 90 {Tablet} Refills: 3 Ordered:17-Oct-2015 Jessica Shields LPN Start : 29-Jul-2012 End : 17-Oct-2015 Inactive Nitrofurantoin 100 MG Oral Capsule 1 bid (100 MG) Inactive Nitrofurantoin Macrocrystal 100 MG Oral Capsule 1 (one) Capsule bid for 0 days Quantity: 20 {Capsule} Refills: 0 Ordered:24-May-2017 Jessica Shields LPN Start : 07-May-2017 End : 24-May-2017 Inactive OXcarbazepine 300 MG Oral Tablet 1 Tablet bid for 0 days Quantity: 360 {Tablet} Refills: 0 Ordered:14-Jun-2017 Jessica Shields LPN Start : 07-May-2017 End : 14-Jun-2017 Inactive Comments:per neuro Oxycodone-Acetaminophen 5-325 MG Oral Tablet 1 Tablet q 6 hrs prn pain for 0 days Quantity: 20 {Tablet} Refills: 0 Ordered:20-Dec-2017 Jessica Shields LPN Start : 07-May-2017 End : 20-Dec-2017 Inactive Comments:twenty PATADAY, 0.2% (Ophthalmic Solution) 1 Solution uad for 0 days Quantity: 3 {Solution} Refills: 3 Ordered:17-Oct-2015 Jessica Shields LPN Start : 16-Jul-2011 End : 17-Oct-2015 Inactive PATANOL, 0.1% (Ophthalmic Solution) for 0 days Refills: 0 Ordered:18-Feb-2010 Sirl, PattiInactive PREDNISONE, 20MG (Oral Tablet) 1 (one) Tablet Daily for 0 days Quantity: 3 {Tablet} Refills: 0 Ordered:13-Nov-2009 Jessica Shields LPN Start : 23-May-2009 Inactive PREDNISONE, 5MG (Oral Tablet) UAD Tablet TAD for 0 days Quantity: 100 {Tablet} Refills: 1 Ordered:31-Aug-2008 Marce Sellers Start : 28-Oct-2007 End : 13-Apr-2008 Inactive PREVACID, 30MG (Oral Capsule Delayed Release) [address] Daily for 0 days Quantity: 30 {Capsule_DR} Refills: 3 Ordered:29-Jul-2012 Jessica Shields LPN Start : 18-Feb-2010 End : 29-Jul-2012 Inactive Ramipril 2.5 MG Oral Capsule 2 Capsule bid for 0 days Quantity: 90 {Capsule} Refills: 0 Ordered:08-Jul-2017 Jessica Shields LPN Start : 29-Jun-2017 End : 08-Jul-2017 Inactive TRIMETHOPRIM, 100MG (Oral Tablet) 1 Tablet Daily for 0 days Quantity: 30 {Tablet} Refills: 3 Ordered:16-Jul-2011 Jessica Shields LPN Start : 18-Feb-2010 End : 16-Jul-2011 Inactive TYLENOL EXTRA STRENGTH, 500MG (Oral Tablet) 1 (-2one) Tablet q4-6prn for 0 days Refills: 0 Ordered:08-Nov-2013 Jessica Shields LPN Start : 19-May-2006 End : 08-Nov-2013 Inactive VASCEPA, 1GM (Oral Capsule) 2 (two) Capsule bid for 90 days Quantity: 180 {Capsule} Refills: 3 Ordered:08-Nov-2013 Jessica Shields LPN Start : 08-Mar-2013 End : 08-Nov-2013 Inactive Warfarin Sodium 3 MG Oral Tablet 1 Tablet QD for 0 days Quantity: 90 {Tablet} Refills: 3 Ordered:14-Jun-2017 Jessica Shields LPN Start : 11-Jun-2017 End : 14-Jun-2017 Inactive ZITHROMAX Z-MILTON, 250MG (Oral Tablet) 1 Tablet uad for 0 days Quantity: 1 {Package(s)} Refills: 0 Ordered:16-Jul-2011 Jessica Shields LPN Start : 20-Apr-2011 End : 16-Jul-2011 Inactive Comments:void after 30 days. check INR after start in 3 days. pt will call if need ALBUTEROL SULFATE HFA, 108 (90 Base)MCG/ACT (Inhalation Aerosol Solution) 2 (two) Aerosol Soln Q 6hr/PRN for 0 days Quantity: 1 {Aerosol_Soln} Refills: 0 Ordered:23-May-2009 Jessica Shields LPN Start : 23-May-2009 End : 13-Nov-2009 Discontinued Comments:This order discontinued per [facility]. BONIVA, 150MG (Oral Tablet) 1 Tablet qmo for 30 days Quantity: 1 {Tablet} Refills: 6 Ordered:29-May-2014 Karthikeyan Leos DO, DO, Kathleen Start : 29-May-2014 End : 29-May-2014 Discontinued CLARITIN, 10MG (Oral Tablet) 1 Tablet Daily for 0 days Quantity: 30 {Tablet} Refills: 3 Ordered:18-Feb-2010 Karthikeyan Leos DO, DO, Kathleen Start : 18-Feb-2010 End : 18-Feb-2010 Discontinued CLOTRIMAZOLE ANTI-FUNGAL, 1% (External Cream) 1 (one) Cream PRN for 0 days Quantity: 1 {Cream} Refills: 5 Ordered:18-Feb-2010 Karthikeyan Leos DO, DO, Kathleen Start : 18-Feb-2010 End : 18-Feb-2010 Discontinued DETROL, 2MG (Oral Tablet) 1 Tablet BID for 0 days Quantity: 60 {Tablet} Refills: 3 Ordered:08-Sep-2010 Karthikeyan Leos DO, DO, Kathleen Start : 08-Sep-2010 End : 08-Sep-2010 Discontinued Comments:please substitute generic equivelant FOLGARD RX 2.2, 2.2-25-0.5MG (Oral Tablet) 1 (one) Tablet Daily for 0 days Quantity: 30 {Tablet} Refills: 3 Ordered:18-Feb-2010 Jessica Shields LPN Start : 18-Feb-2010 End : 06-Jun-2010 Discontinued Comments:This order discontinued per [facility]. NASACORT AQ, 55MCG/ACT (Nasal Aerosol Solution) 2 Aerosol Soln each nostril daily for 0 days Quantity: 1 {Box} Refills: 6 Ordered:29-May-2014 Jessica Shields LPN Start : 29-May-2014 End : 17-Oct-2015 Discontinued Comments:This order discontinued per [facility]. TRICOR, 160MG (Oral Tablet) 1 (one) Daily for 0 days Refills: 0 Ordered:16-Jul-2011 Jessica Shields LPN Start : 19-May-2006 End : 16-Jul-2011 Discontinued Comments:This order discontinued per [facility]. VITAMIN D, 57763LTUN (Oral Capsule) 1 (one) Capsule Twice a week for 0 days Quantity: 8 {Capsule} Refills: 3 Ordered:18-Feb-2010 Karthikeyan Leos DO, DO, Kathleen Start : 18-Feb-2010 End : 18-Feb-2010 Discontinued VITAMIN E, 400UNIT/15ML (Oral Liquid) 1 Daily for 0 days Refills: 0 Ordered:17-Oct-2015 Jessica Shields WALDO End : 17-Oct-2015 Discontinued Comments:This order discontinued per [facility]. Allergies and Adverse Reactions Name Dates Details Escitalopram Oxalate *ANTIDEPRESSANTS* (Allergy) Reaction: Rash Status: Active Macrobid *URINARY ANTI-INFECTIVES* (Allergy) Status: Active Comments: rash PLAQUENIL, 200MG (Oral Tablet) (Allergy) Status: Active Comments: Rash Shellfish (Allergy) Status: Active Skelaxin *MUSCULOSKELETAL THERAPY AGENTS* (Allergy) Status: Active Sulfa Drugs (Allergy) Status: Active Past Medical History Name Dates Details Acute sinusitis, unspecified (J01.90, 461.9) Status: Inactive as of 15-Jul-2009 BMI 30.0-30.9,adult (Z68.30, V85.30) Status: Inactive as of 21-Mar-2018 BMI 32.0-32.9,adult (Z68.32, V85.32) Status: Inactive as of 28-Jun-2017 Bronchitis (J40, 490) Comments: continue antibiotics until finished. Status: Inactive as of 15-Jul-2009 Chills (R68.83, 780.64) Status: Resolved as of 20-Dec-2017 Chills (without fever) (R68.83, 780.64) Status: Inactive as of 06-Oct-2017 Chronic anticoagulation (Z79.01, V58.61) Comments: initiated despite h/o recent brain bleed-- repeat cat scan stable and risk higher for stroke at this point than the bleedit was stopped - too high risk 11/14 Status: Inactive as of 20-Dec-2017 Cystitis, acute (N30.00, 595.0) 18-Feb-2012 Status: Inactive as of 17-Oct-2015 Dehydration (E86.0, 276.51) Status: Resolved as of 20-Dec-2017 Elevated blood-pressure reading without diagnosis of hypertension (R03.0, 796.2) Status: Resolved as of 27-Jul-2011 Fatigue (R53.83, 780.79) Status: Inactive as of 13-Feb-2009 intermediate designer current use of anticoagulant (Z79.01, V58.61) Comments: with brain bleed and oncology deemed her to not have any autobodies in blood stream so stopped her anticoagulation Status: Resolved as of 14-Jun-2017 Orthostasis (I95.1, 458.0) Status: Resolved as of 20-Dec-2017 Osteopenia (M85.80, 733.90) Status: Resolved as of 24-Oct-2015 OTHER LATE EFFECTS OF CEREBROVASCULAR DISEASE, 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) Status: Inactive as of 04-Jun-2016 Personal history of other specified infectious and parasitic disease (V12.09) Status: Inactive as of 04-Jun-2016 Polymyalgia rheumatica (M35.3, 725) Status: Resolved as of 11-Jan-2012 Sinusitis, bacterial (J32.9, 473.9) Status: Inactive as of 24-May-2017 SOB (shortness of breath) on exertion (R06.02, 786.05) Status: Resolved as of 25-Dec-2010 Transient ischemic attack (G45.9, 435.9) Status: Resolved as of 08-Nov-2013 Unspecified bacterial pneumonia (J15.9, 482.9) Status: Inactive as of 13-Feb-2009 Vomiting (R11.10, 787.03) Status: Resolved as of 20-Dec-2017 Well woman exam (Z01.419, V72.31) Status: Inactive as of 17-Oct-2015 Wheezing (R06.2, 786.07) Status: Resolved as of 25-Dec-2010 Procedures Procedure Dates Details Colonoscopy Completed Comments: 01-09-08 Pacemaker placement Completed Comments: 11/15/17 Date Value Details 11-Apr-2018 Pacemaker Check Result: Comments: See Note; NOTES: [facility] [address] [place] [address] [address] [place] [address] Pacemaker Check Date of Service: 04/09/18924 MR#: [id number] Acct: [id number] Name: HERMINIA NASH Rep #: [id number] : 1950 From: Verónica Trinidad Age/Sex: 68/F [place] [facility]: Signed Billing Codes PM Device Codes: PM Dev Interrogate (Remot 04/09/1829 <Karsten kelly signed by Verónica Trinidad > Date Verónica Trinidad 04/11/18 1658<Electronically signed by Gary FALL> Cosigner Signature : Date (if applicable) Gary Zamora CC: 25-Mar-2018 History and Physical Exam Result: Comments: See Note; NOTES: [facility] Medical Records Department [address] [facility] [place] [address] History and Physical 03/25/18 1449 MR#: [id number] Acct: [id number] Name: Douglas NASH Rep #: [id number] : 1950 68 From: Karel Max DO PCP: Hannah Leos DO Status: REG ER Y Location: ED Problem List (1) Septic shock Status: Acute (2) UTI (urinary tract infection) Status: Acute History of Present Illness Date of Admission: 03/25/18 Chief Complaint: lethargy. fever. The patient is a 68 year old F who is in her normal state of health did have a routine follow-up appointment on the with her primary care doctor. Patient was found to have a urinary tract infection based on the urinalysis and was prescribed Macrobid. On the , the patient started getting sick and lethargic. Patient was having fever and chills. Patient was only able to take 1 dose of the Macrobid. Today the patient was more lethargic and had a temp of 102.5 Fahrenheit. Patient was sent to [facility] emergency room. Patient was found to be in septic shock with a lactic acid of 4.8. Patient was hypertensive and is currently receiving the 30 cc/kg of IV fluids. Patient has been coughing but is been much nonproductive. Patient being admitted for septic shock with really unclear source at this time. [] Past Medical History Past Medical History (Chronic Problems): Chronic Problems (Last Updated @ 13:19 by Verónica Trinidad) Encounter for long-term current use of high risk medication (Chronic) Encounter for long-term current use of high risk medication (Chronic) Presence of cardiac pacemaker (Chronic) Junctional rhythm (Chronic) Tachy-alethea syndrome (Chronic) Bradycardia (Chronic) Atrial fibrillation (Chronic) Atrial fibrillation with RVR (Chronic) HLD (hyperlipidemia) (Chronic) HTN (hyper tension) (Chronic) Diabetes (Chronic) Hypertensive emergency without congestive heart failure (Chronic) New onset a-fib (Chronic) SDH (subdural hematoma) (Chronic) Medical History: Medical History (La st Reviewed 03/25/18 @ 14:51 by Karel Max DO) Junctional rhythm (Chronic) I49.8 Tachy-alethea syndrome (Chronic) I49.5 Bradycardia (Chronic) R00.1 Atrial fibrillation (Chronic) I48.91 Atrial fibrillat ion with RVR (Chronic) I48.91 HLD (hyperlipidemia) (Chronic) E78.5 HTN (hypertension) (Chronic) I10 Hypertensive emergency without congestive heart failure (Chronic) I16.1 New onset a-fib (Chronic) I48. 91 Allergies escitalopram [From Lexapro] Allergy (Verified 03/25/18 12:48) Rash shellfish derived Allergy (Verified 03/25/18 12:48) Unknown hydroxychloroquine [From Plaquenil] Adverse Reaction (Sever e, Verified 03/25/18 12:48) Unknown perfume Adverse Reaction (Verified 03/25/18 12:48) Unknown pineapple Adverse Reaction (Verified 03/25/18 12:48) Rash quinine Adverse Reaction (Verified 03/25/18 12:48 ) Unknown strawberry Adverse Reaction (Verified 03/25/18 12:48) Rash Sulfa (Sulfonamide Antibiotics) Adverse Reaction (Verified 03/25/18 12:48) Unknown DUST Adverse Reaction (Uncoded 03/25/18 12:48) Unk nown Home Medications: Ambulatory Orders Medication Instructions Recorded Metformin HCl [Glucophage] 1,000 mg PO BIDCM 04/08/17 Simvastatin [Zocor] 40 mg PO QHS 04/08/17 Surgical History: Surgical History (Last Reviewed 03/25/18 @ 14:51 by Karel Max DO) Encounter for long- term current use of high risk medication (Chronic) Z79.899 Presence of cardiac pacemaker (Chronic) Z95.0 History of breast surgery Z98.890 History of hysterectomy Z98.890, Z90.710 Surgical History: no surgical history Psychiatric History: No pertinent psych hx EXECUTIVE RELATIONS SPECIALIST History: No pertinent EXECUTIVE RELATIONS SPECIALIST history Smoking Status: Never s coral Tobacco Use: Non-smoker - *Family History Maternal Family History: Family History (Last Reviewed 03/25/18 @ 14:51 by Karel Max DO) Brother Heart disease Hypertension Diabetes Mother Hypert ension History Items: No pertinent history Sibling Family History: Family History (Last Reviewed 03/25/18 @ 14:51 by Karel Max DO) Brother Heart disease Hypertension Diabetes Mother Hypertensi on History Items: Heart Disease Review of Systems Constitutional: Reports: Chills, Fever, Malaise, Weakness. Denies: Anorexia Eyes: Denies: Blurred vision, Double vision HEENT: Denies: Head Aches, Si nus Congestion, Sinus Drainage Cardiovascular: Denies: Chest Pain, Palpitations Respiratory: Reports: Cough. Denies: Shortness of breath at rest, Sputum production Gastrointestinal: Denies: Abdominal Pa in, Nausea, Vomiting Genitourinary: Reports: Dysuria. Denies: Frequency Musculoskeletal: Denies: Joint Pain, Joint Tenderness Skin: Denies: Rash, Wounds Neurological: Denies: Balance problems, Blurred v ision, Double vision, Change in Speech, Slurred speech Hematologic/ Lymphatic: Denies: Easy Bruising, Easy Bleeding, Hx of blood clot Comment: All review of systems are negative except as mentioned in t he history of present illness and the other review of systems. VTE Information - Inpt Only VTE Present on Admission: No VTE Mechan Device Prophylaxis: None VTE Pharm Prophylaxis ordered?: Yes Patient P roblems: Active and Suspected Problems (Last Updated 11/22/17 @ 13:19 by Verónica Trinidad) Septic shock (Acute) UTI (urinary tract infection) (Acute) - Physical Exam General: Alert, Cooperative, No urban arent distress, - - Listless. HEENT: Atraumatic, Normocephalic, - - No scleral icterus Oral: Moist Mucosa, No Gingival or Mucosal Lesions/ Ulcerations Neck: No Nodes, Thyroid Normal Size and Texture Duncan gs: Clear to auscultation, No rhonchi, No wheeze, Diminished Cardiovascular: Regular rate, Regular Rhythm, Normal S1, Normal S2, No murmurs Abdomen: Bowel Sounds Present, Soft, Non Tender, Non-Distended , No Hepato-splenomegaly Extremities: No edema, No Calf Tenderness Skin: No rashes, No breakdown, - - Sites in left upper chest is wean intact and no fluctuance appreciated. Musculoskeletal: No Tenderne ss to Palpation of Joints or Extremities, No Muscle Wasting Neurological: Deep Tendon Reflexes 2+/4 and Symmetrical, Neuro grossly intact, Sensory exam intact to light touch and pain Psych/Mental Status : Normal Affect, Appropriate Vital Signs Temp Pulse Resp BP Pulse Ox 38.2 C H 74 19 H 87/48 L 96 03/25/18 13:19 03/25/18 14:15 03/25/18 14:15 03/25/18 14:15 03/25/18 14:15 Oxygen Flow Rate (L/min) 4 Oxygen Delivery Method Nasal Cannula Weight: 80.7 kg Body Mass Index (BMI) 31.5 Finger Stick Blood Glucose 129 Laboratory Tests Past 24 Hrs WBC 5.2 RBC 4.61 Hgb 12.2 Hct 39.9 WBC RBC Hgb Hct MCV MCH MCHC X-ray reviewed and showed poor respiratory effort. No definitive pulmonary edema. Questionable right lower lobe atelectasis. Assessment/Plan All Active Problems (Last Updated 11/22/17 @ 13:19 by Verónica Trinidad) Septic shock (Acute) UTI (urinary tract infection) (Acute) Vaginal bleeding (Acute) Febrile illness, acute (Acute) Pseudoseizure (Acute) Breakthrough seizure (Acute) Seizure (Acute) 1. Septic shock * Unclear source at this time though urinalysis is positive but not greatly so. * Patient is receiving the per kilogram currently in the emergency room and will continue with IV fluids o n the floor. * Patient will be on vancomycin and Zosyn pending result of cultures * Follow results of blood cultures, check sputum cultures and urine culture. * I suspect patient will do well with IV fl uids but did mention to the patient's that if her blood pressure does not improve then would have to consider pressor agents which was subsequently require a central line. * Follow-up lactic aci d. Currently 4.8. Certainly this is related with her septic shock but also component may be skewed given the patient's use of metformin. 2. UTI * Continue with antibiotics as above * Follow-up urine cu lture * Patient only took 1 dose of Macrobid but patient was already for sick at that time for it to be done any effect even if it urine culture comes back sensitive to Macrobid. 3. Metabolic encephalo candida * Patient just more listless and her baseline. * Related with septic shock and possible urinary tract infection * Supportive management 4. Hypertension * Given the patient's hypotension at this t fernanda I will hold off on her amlodipine and lisinopril * Resume when her blood pressure permits 5. Diabetes mellitus type 2 * Metformin is being held due to the lactic acidosis * Continue with Januvia * Sliding scale insulin 6. DVT prophylaxis with Lovenox Code Visit Inpatient E AND M: 07365 Init Hosp L3 03/25/18 1457 <Electronically signed by Karel Max DO> Date Karel Max DO Cosigner Signature: Date (if applicable) CC: Karel Max DO; Hannah Leos DO Signed 25-Mar-2018 Chest 1 View (Portable) Result: Comments: See Note; NOTES: [facility] Imaging Services [address] [place] [id number] Chest 1 View (Portable) MR#: [id number] Acct: [id number] Name: HERMINIA NASH Rep #: [id number] : 1950 F 68 From: Darrell Prado MD PCP: Hannah Leos DO Status: REG ER Study: Chest 1 View (Portable) Date of Exam: 03/25/18 Exam# [id number] Ordering Dr: Mitra Whitney STUDY: X-RAY CHEST REASON FOR EXAM: Female, 68 years old. Weakness TECHNIQUE: Single AP portable view of the chest. COMPARISON: November 16, 2017 FINDINGS: Stable pacemaker devic e on the left. There are monitoring devices. Left lower lung atelectasis. There is no demonstrated pleural abnormality. There is mild cardiac enlargement. Normal mediastinum and jannette. Normal visualize d pulmonary arteries. Normal visualized aortic arch and descending thoracic aorta. There are diffuse degenerative changes of the visualized thoracic spine. Normal visualized ribs, clavicles, and should ers. There is no demonstrated abnormality of the visualized soft tissue structures of the upper abdomen. RAD/Chest 1 View (Portable) IMPRESSION: Degenerative changes, as described above. No demonstrated acute cardiopulmonary process. Electronically Signed: Darrell Prado MD at 14:04 EDT , Service support [phone], CC: Mitra Whintey; Hannah Leos DO Tabular Typist: Signed 09-Feb-2018 Cardiology Visit Report Result: Comments: See Note; NOTES: [facility] [place] [address] OFFICE VISIT Date of Service: 01/28/18 MR#: [id number] Acct: [id number] Name: HERMINIA NASH Rep #: [id number] : 1950 Provider: Yasmin Aiken Age/Sex: 67/F Location: [facility] Status: Signed HPI HPI Details: HERMINIA NASH, is a 67 F who presents to the office today for a cardiova scular follow up. Patient does have a history of hypertension, atrial fibrillation, tachybradycardia syndrome with pacemaker implant. Pt sts that she still has fatigue but feels that this is back to he r baseline. She feels it is related to her medications for her seizures. She has had some palpitations but they have not lasted long. She does not have any worsening SOB. She does not have any chest ladonna n/heaviness/tightness. She does not have lower extremity edema. Intake Vital Signs01/28/18 Height 5 ft 1 in 01/28/18 Weight: 172 lb 01/28/18 Body Mass Index (BMI) 32.5 01/28/18 Blood Pressure 138/88 I ntake Visit Reasons: 3 M FU Medical Asst Required: No Accompanied by: Is patient in pain?: No Allergies escitalopram [From Lexapro] Allergy (Verified 01/28/18 13:39) Rash shellfish derived Elie rgy (Verified 01/28/18 13:39) Unknown hydroxychloroquine [From Plaquenil] Adverse Reaction (Severe, Verified 01/28/18 13:39) Unknown perfume Adverse Reaction (Verified 01/28/18 13:39) Unknown pineapple Adverse Reaction (Verified 01/28/18 13:39) Rash quinine Adverse Reaction (Verified 01/28/18 13:39) Unknown strawberry Adverse Reaction (Verified 01/28/18 13:39) Rash Sulfa (Sulfonamide Antibiotics) Adve rse Reaction (Verified 01/28/18 13:39) Unknown DUST Adverse Reaction (Uncoded 11/17/17 18:07) Unknown Medications Metformin HCl [Glucophage] 500 mg PO BIDCM 04/08/17 [History Confirmed 01/28/18] Mult ivitamins,Therapeutic [Multivitamin] 1 tab PO DAILY 04/08/17 [History Confirmed 01/28/18] Simvastatin [Zocor] 40 mg PO QHS 04/08/17 [History Confirmed 01/28/18] Oxybutynin Chloride [Ditropan Xl] 5 mg PO DAILY 05/20/17 [History Confirmed 01/28/18] Amlodipine [Norvasc] 5 mg PO DAILY 10/06/17 [History Confirmed 01/28/18] Empagliflozin [Jardiance] 10 mg PO DAILY 10/06/17 [History Confirmed 01/28/18] [place] xyzine HCl 25 mg PO BID 10/07/17 [History Confirmed 01/28/18] ranitidine 150 mg tablet 150 mg PO BID tab 10/27/17 [History Confirmed 01/28/18] gabapentin 300 mg capsule PO 20 Days #60 01/28/18 [History Confirmed 01/28/18] lacosamide 100 mg tablet 100 mg PO BID 01/28/18 [History Confirmed 01/28/18] mirtazapine 15 mg tablet 45 mg PO QHS tab 01/28/18 [History Confirmed 01/28/18] ramipril 5 mg capsule PO 90 Days #90 01/28/18 [History Confirmed 01/28/18] Ejection fraction %: 60 to 64 PFSH Medical History Junctional rhythm (Chronic) Tachy-alethea syndrome (Chronic) Bradycardia (Chronic) Atrial fibrillat ion (Chronic) Atrial fibrillation with RVR (Chronic) HLD (hyperlipidemia) (Chronic) HTN (hypertension) (Chronic) Hypertensive emergency without congestive heart failure (Chronic) New onset a-fib (Chroni c) Surgical History Encounter for long-term current use of high risk medication (Chronic) Presence of cardiac pacemaker (Chronic) History of breast surgery (Resolved) History of hysterectomy (Resolve d) Family History Brother Heart disease Hx CABG Hypertension Diabetes Mother Hypertension Social History Smoking Status: Never smoker alcohol intake: never substance use type: does not use caffeine: No what type of physical activity do you participate in: none seatbelt use: always do you feel safe at home: Yes ROS Const Const: Positive for weakn ess and fatigue; negative for fever(s) or headache(s) Eyes Eyes: Negative for blind spots, loss of peripheral vision or transient loss of vision ENT ENT: Negative for headache(s) Cardio Chest Pain: No P alpitations: Yes Edema: None Muscle aches with walking: None Resp Respiratory: Negative for SOB with activity, SOB at rest, SOB orthopnea\SOB lying down or Cough GI GI: Negative nausea, vomiting, heartb urn or vomiting blood/hematemesis : Negative for hematuria Musc Musc: Negative for muscle aches/ myalgia Neuro Neuro: Positive for weakness; negative for headache(s) Dashawn Hematologic/Lymphatic: Neg ative for easy bleeding Endo Endo: Positive for fatigue Cardiology Exam Const Appearance: cooperative, no acute distress and well developed Orientation: alert, awake and oriented x3 Head Head: normoce phalic and atraumatic Mouth: moist mucous membranes Eyes General: appearance normal, both eyes and all related structures Conjunctivae: conjunctivae normal Pupils: PERRL EOM: EOM intact bilaterally Neck Neck: normal visual inspection, no lymphadenopathy and no JVD Carotids: Negative bruit Neck Mass: Negative Neck mass Chest Chest inspection: normal inspection of the chest, symmetric chest movement and Pacemaker/ICD Yes left pectoral incision Auscultation: Bilateral: Clear to Auscultation Cardio Palpation: normal PMI Rate: regular rate Rhythm: regular rhythm Heart sounds: S1 normal and S2 normal; neg ative rub, gallop or murmur GI GI: normal to inspection, soft, no hepatosplenomegaly and bowel sounds present; negative tender Neuro General: alert, awake, oriented x3, CN's II-XI intact bilaterally and moves all extremities Extremities Pulses: Normal: Right Posterior Tibial Pulse, Left Posterior Tibial Pulse, Right Radial Pulse, Left Radial Pulse Lower Extremity Edema: None: Bilateral Psych Psycholog ical: normal affect Assessment AND Plan 1. Tachy-alethea syndrome I49.5 Plan - HOLDEN Mayorga Patient now has a pacemaker placed. She will continue with regular scheduled pacemaker interrogati ons. Recent pacemaker check demonstrates device is functioning appropriately. 2. Essential hypertension I10 Plan - HOLDEN Mayorga Blood pressure is well controlled on current medications, we do not recommend any changes at this time. 3. Pure hypercholesterolemia E78.00; E78.0 Plan - HOLDEN Mayorga These have been managed by her primary care doctor. Will not make any adjustments. 4. Atrial fibrillation with RVR I48.91 Plan - HOLDEN Mayorga Patient has not had any symptomatic recurrence. She is no longer anticoagulation due to some vaginal bleeding. We will continue to monitor her pacemaker interrogations. Recent device check did not demonstrate any arrhythmias. Plan Detail Additional Comments - HOLDEN Mayorga The above patient was discussed with Dr. Pollock , he agrees with plan of care. Thank you for allowing us to participate in patient's plan of care, if you have any questions please do not hesitate to call. This note was generated using a voice recog Treehouse system and there may be incorrect words, spelling or punctuation errors that were not noted when reviewing the office note prior to saving. Follow Up 6 Months (6-9 months) Coding Level of Care Code Off vis,est,level 3 Diagnoses Tachy-alethea syndrome I49.5 Essential hypertension I10 Hypertension type: essential hypertension Pure hypercholesterolemia E78.00; E78.0 Hyperlipidemia type: pure hype rcholesterolemia Atrial fibrillation with RVR I48.91 Coding Level of Care Code Off vis,est,level 3 Diagnoses Tachy-alethea syndrome I49.5 Essential hypertension I10 Hypertension type: essential hyperte nsion Pure hypercholesterolemia E78.00; E78.0 Hyperlipidemia type: pure hypercholesterolemia Atrial fibrillation with RVR I48.91 01/28/18 1458 <Electronically signed by Yasmin Garner> Date Yasmin HATCH 02/09/18 0822<Electronically signed by Mehul Pollock MD> Cosigner Signature: Date __ (if applicable) Mehul Pollock MD CC: Hananhbharat Leos 11-Jan-2018 Pacemaker Check Result: Comments: See Note; NOTES: [facility] [address] [place], [place] [address]. [address] [place] [address] Pacemaker Check Date of Service: 12/31/17 1423 MR#: [id number] Acct: [id number] Name: HERMINIA NASH Rep #: [id number] : 1950 From: Verónica Trinidad Age/Sex: 67/F Location: [facility] Status: Signed Comments Summary Comments: Dual Chamber Pacemaker Evaluation: 6 wk post PPM implant check co mpleted. Interrogation shows no MS episodes and no VT episodes since 11/16/17. Left pectoral pocket/incision w/o s/s of infection or erosion. Pt offers no cardiac complaints at present. Presenting rhythm shows AAI pacing @ 60 ppm. FRUIT OR NUT FARMER=2%. Battery longevity approx 8.5yrs. Lead impedances, sensing and pace/sense thresholds remain stable. Decreased AV amplitudes with adequate safety margin to preserve olaf clary longevity. Counters cleared. Next f/u appt scheduled for in 3 mos. Device Device Date Interviewed: 12/31/17 Follow-up Location: in office Interview Reason: scheduled follow up Oven Equipment Repairer: Paladion Name: Planet [address] IS-1 Model: L111 Serial #: [id number] Implant Date: 11/15/17 Year(s): 0 Implant Physician: Dr. Mehul Pollock/ [facility] Patient Characteristics Atrial Indication: sick sinus syndro me Patient Substrate: Arrhythmia Ejection fraction %: 50 to 54 (05/2015) By: Echo Underlying rhythm: Sinus rhythm Pacemaker Dependent: No Device Characteristics Device: Dual Chamber Type: Pacemaker Matthew te Follow-Up: Latitude Device Physical Exam Yes Incision well healed, No hematoma, Pocket not tender and No drainage Leads Lead #1 Oven Equipment Repairer Lead 1: [employer] Model Lead 1: 7741 Serial# Blanca d 1: [id number] Date Implanted Lead 1: 11/15/17 Position Lead 1: RA Lead #2 Oven Equipment Repairer Lead 2: [employer] Model Lead 2: 7740 Serial# Lead 2: [id number] Date Implanted Lead 2: 11/15/17 Position Lead 2: RV Diagnostics Pacing % RA Pacin % RV Pacin Mode Switching Total # Episodes: 0 % Mode switched: 0 Arrhythmias Non-Sust Episodes: 0 Measurements Battery Voltage (V): 1.14 Magnet Rate (bmp): 100 Predicted Remaining Longevity (months or years): 8.5 years RA Measurements Signal Amplitude (mV): 1.2 Impedance (Ohms): 624 Threshold Voltage: 1.7 @ PW(ms): 0.4 RV Measurements Signal Amplitude (mV) : 17.8 Impedance (Ohms): 993 Threshold Voltage: 0.7 @ PW(ms): 0.4 Alethea Settings Alethea Settings Pacemaker Mode DDD Output/Sensing V/PW (ms) 3.4V@0.4 ms 1.2V@0.4 ms Sensitivity RA RV LV Comme nts: Billing Codes PM Device Codes: PM Dev Prog Eval, Dual Assessment AND Plan Problems 1. Presence of cardiac pacemaker Z95.0 2. Junctional rhythm I49.8 3. Tachy-alethea syndrome I49.5 4. Bradycardi a R00.1 5. Paroxysmal atrial fibrillation I48.0 6. Atrial fibrillation with RVR I48.91 01/07/18 0845 <Electronically signed by Verónica Trinidad > Date Verónica Trinidad 01/11/18 1244<Electronically signed by Mehul Pollock MD> Cosigner Signature: Date (if applicable) Mehul Pollock MD CC: 23-Nov-2017 Pacemaker Check Result: Comments: See Note; NOTES: [facility] [address] [place] [address] Pacemaker Check Date of Service: 11/22/17 1119 MR#: [id number] Acct: [id number] Name: HERMINIA NASH Rep #: [id number] : 1950 From: Verónica Trinidad Age/Sex: 67/F Location: [facility] Status: Signed Comments Summary Comments: Wound Check: 1 wk post implant wound check completed. Left pector al pocket/incision gauze dressing removed. Steri-strips intact. No new drainage noted. No hematoma noted. Mild ecchymosis noted. Pt afebrile T=97.7 degrees F temporally. Instructed to leave wound open t o air and let warm water and soap from shower loosen steri-strips. Left arm restrictions reinforced until 6 wk post implant check completed. 6wk post PPM implant f/u appt scheduled. Device Device Date Interviewed: 11/22/17 Follow-up Location: in office Interview Reason: scheduled follow up Oven Equipment Repairer: Paladion Name: Garrett MONTES DR IS-1 Model: L111 Serial #: [id number] Implant Date: 11/15/17 Year(s): 0 Implant Physician: Dr. Mehul Pollock/ [facility] Patient Characteristics Atrial Indication: sick sinus syndrome Patient Substrate: Arrhythmia (junctional rhythm with HR in 20's) Ejection fraction %: 5 0 to 54 (05/2015) By: Echo Underlying rhythm: Sinus rhythm Pacemaker Dependent: No Device Characteristics Device: Dual Chamber Type: Pacemaker Device Physical Exam Yes Steri-strips intact, No hematoma a nd No drainage Leads Lead #1 Oven Equipment Repairer Lead 1: [employer] Model Lead 1: 7740/45 [facility] MRI Serial# Lead 1: [id number] Date Implanted Lead 1: 11/15/17 Position Lead 1: RA Lead #2 Oven Equipment Repairer L ead 2: [employer] Model Lead 2: 7741/52 [facility] MRI Serial# Lead 2: [id number] Date Implanted Lead 2: 11/15/17 Position Lead 2: RV Alethea Settings Alethea Settings Pacemaker Mode DDD Lower Rate Li lionel (bpm) 60 Hysteresis Rate (bpm) Max Track Rate (bpm) 120 Max Sensor Rate (bpm) Max AV Delay (msec) 300 Max PV Delay (msec) Max PVARP (msec) Output/Sensing V/PW (ms) auto/0.4 auto/0.4 Sensitivit y RA RV LV AGC Comments: Billing Codes Nurse, Teaching, Wound Ck (no charge): Yes Assessment AND Plan Problems 1. Presence of cardiac pacemaker Z95.0 2. Tachy-alethea syndrome I49.5 3. Junctional rh ythm I49.8 4. Bradycardia R00.1 5. Paroxysmal atrial fibrillation I48.0 6. Atrial fibrillation with RVR I48.91 11/22/17 1320 <Electronically signed by Verónica Trinidad > Date Verónica Trinidad 11/23/17 1451<Electronically signed by Mehul Pollock MD> Angela Signature: Date (if applicable) Mehul Pollock MD CC: 17-Nov-2017 Discharge Instruction Result: Comments: See Note; NOTES: [facility] Medical Records Department [address] [place] [address] Discharge Instruction 11/17/17 1836 MR#: [id number] Acct: [id number] Name: HERMINIA NASH Rep #: [id number] : 1950 67 From: Rodríguez Costa DO PCP: Hannah Leos DO Status: PRE ER ED Disposition - Plan for ED Patient: Chief Complaint: Wound Check Instructions: ED Wound C heck Post Op No Infec, ED Wound Check Post Op Bleeding Referrals: Hannah Leos DO [Primary Care Provider] - Mehul Pollock MD [STAFF PHYSICIAN] - Keep Nicolás appointment What to do if you have Problem s For any increased pain, shortness of breath, bleeding, nausea or vomiting, chest pain, or any unexpected problems, contact your Primary Care Provider. Call [facility] ([phone]) or report t o the closest Emergency Room. Call 911 if necessary. 11/17/171836 <Electronically signed by Rodríguez Costa DO> Date Rodríguez Costa DO Co signer Signature (If Indicated): Date CC: Hannah Leos DO 17-Nov-2017 Emergency Department Summary Result: Comments: See Note; NOTES: [facility] [facility] Medical Records Department [address] [place] [address] Emergency Department Summary 11/17/17 183 MR#: [id number] Acct: [id number] Name: HERMINIA NASH Rep #: [id number] : 1950 67 From: Rodríguez Costa DO PCP: Hannah Leos DO Status: PRE ER - ER Visit Summary Date of Service: 11/17/17 Chief Complaint: [Wound check with conc karol for bleeding] History of Present Illness: The patient is a 67 F [presents to the emergency department with her complaining of drainage from her wound where she had her pacemaker placed 2 da ys ago. Patient had the pacemaker placed by Dr. Pollock and apparently had some bleeding complications intraoperatively. This afternoon the noticed small amount of serous drainage from the upper o uter corner of the dressing. Patient was to have the dressing removed tomorrow at home and the was concerned that if he got into bleeding complications he did not want to be at home when this dr lamar was taken off. Patient denies any significant pain to the site.] Physical Examination: [HEEVGENYPERRLA, EOMI. Cranial nerves II through XII grossly intact. TMs clear. Mucous membranes moist. No ad enopathy. Cardiovascular-regular rate and rhythm without murmur or ectopy Lungs- clear to auscultation, chest wall stable without crepitus or subcu emphysema. Left chest-there is a dressing in place wi th some mild elevation of the dressing the left outer quadrant. There is small amount of avulsed skin in this area has some subtle weeping noted. No evidence for bleeding otherwise noted. Abdomen-normo active bowel sounds, soft, nontender, no rebound or rigidity, no peritoneal signs. Extremities-intact 4, normal range of motion, normal pulses, atraumatic] Test Results: [None indicated] Emergency De partment Course and Treatment: [Patient's dressing was removed and there was no bleeding noted at this time. Patient was reassured that I felt the incision looked well.] Treatment Plan: I will discuss case with Dr. Pollock or the physician covering for Dr. Pollock regarding the dressing change.] Disposition: [Discharged to home in stable condition.] Impression: [Wound check-no bleeding and no signs of infection] This note was generated with [employer] dictation software. It may contain incorrect words, spelling, and punctuation that were not noted in review of the chart prior to signing ED Dispositi on - Plan for ED Patient: Chief Complaint: Wound Check Referrals: Hannah Leos, [Primary Care Provider] - What to do if you have Problems For any increased pain, shortness of breath, bleeding , nausea or vomiting, chest pain, or any unexpected problems, contact your Primary Care Provider. Call [facility] ([phone]) or report to the closest Emergency Room. Call 911 if necessary. 0 11/17/17 1836 <Electronically signed by Rodríguez Costa DO> Date Rodríguez Costa DO Cosigner Signature (If Indicated): Date CC: Hannah Leos DO 16-Nov-2017 Discharge Instruction Result: Comments: See Note; NOTES: [facility] Medical Records Department [address] [place] [address] Instructions for Home/Discharge Instructions 11/16/17 0848 MR#: [id number] Acct: [id number] Name: HERMINIA NASH Rep #: [id number] : 1950 67 From: Mehul Pollock MD PCP: Hannah Leos DO Status: REG [facility] Discharge Diet: No Restrictions Discharge Activity: May Not Drive Luis l your doctor if your incision/area has: Continuous Slow Oozing, Sudden Increased Bleeding, Increased Pain/ Swelling, Increased Redness, Foul Smelling Discharge, Swelling at the incision site Call your doctor if you observe: Fever of 101 or Higher, Shortness of breath, Dizziness, Fainting spells, Swelling in the ankles, Chest pain, Prolonged hiccoughing, Increased palpitations (irregular heartbeat) aidee Dressing in (Days):: 3 Remove Dressing in (days):: 3 Cleanse incision/area with: Do not get Incision Wet, Keep Dressing Clean AND Dry Additional Dressing/Incision Instructions:: When dressing is re moved, wash and dry incision. Keep covered with a light bandage if it is rubbing against your clothing. Do not cover the incision with an airtight bandage. Change the bandage daily. Do not remove steri strips. The strips will fall off on their own. Additional Instructions: Signs and Symptoms to Report to Your Doctor at Once - call your doctor's office or [facility] ([phone]) Call 911 or g o to the nearest Emergency Department if you feel you need urgent care. *Infection (fever, increased redness or swelling at the incision site, drainage from the incision increased pain at the pacemaker site) *Shortness of breath *Dizziness *Fainting spells *Swelling in the ankles *Chest pain *Prolonged hiccoughing *Increased palpitaitons (irregular heartbeat) Medications: Take your pain medication a s directed. Refer to your discharge instruction sheet for a list of medications you are to take. Allergies/Adverse Reactions: Allergies escitalopram [From Lexapro] Allergy (Verified 10/06/17 20:37) Rash shellfish derived Allergy (Verified 10/06/17 20:37) Unknown hydroxychloroquine [From Plaquenil] Adverse Reaction (Severe, Verified 10/27/17 07:41) Unknown perfume Adverse Reaction (Verified 20:37) Unknown pineapple Adverse Reaction (Verified 10/06/17 20:37) Rash quinine Adverse Reaction (Verified 10/06/17 20:37) Unknown strawberry Adverse Reaction (Verified 10/06/17 20:37) Rash Sulfa (S ulfonamide Antibiotics) Adverse Reaction (Verified 10/06/17 20:37) Unknown DUST Adverse Reaction (Uncoded 10/06/17 20:37) Unknown Medications to take at Discharge Alendronate Sodium [Fosamax] 70 mg P O PRECIADO 04/08/17 Fexofenadine HCl [Children[facility]ry Allergy] 30 mg PO DAILY 04/08/17 Metformin HCl [Glucophage] 500 mg PO BIDCM 04/08/17 Multivitamins,Therapeutic [Multivitamin] 1 tab PO DAILY 04/08/17 S imvastatin [Zocor] 40 mg PO QHS 04/08/17 Mirtazapine 30 mg PO QHS 05/20/17 Oxybutynin Chloride [Ditropan Xl] 5 mg PO DAILY 05/20/17 Amlodipine [Norvasc] 5 mg PO DAILY 10/06/17 Empagliflozin [Jardiance] 10 mg PO DAILY 10/06/17 Hydroxyzine HCl 25 mg PO BID 10/07/17 Lacosamide [Vimpat] 200 mg PO BID 10/13/17 ranitidine 150 mg tablet 150 mg PO BID tab 10/27/17 ciprofloxacin 250 mg tablet 250 mg PO BID #6 tab 11/08/17 Primary Care Physician: Hannah Leos DO [Primary Care Provider] - When: [facility] 11/22/17 at 10 am Proposed Discharge Date: 11/16/17 11/16/17 0850 <Electronically sign ed by Mehul Pollock MD> Date Mehul Pollock MD CC: Hannah Leos DO 16-Nov-2017 Chest 1 View Result: Comments: See Note; NOTES: [facility] Imaging Services [address] [place] [address] Chest 1 View MR#: [id number] Acct: [id number] Name: HERMINIA NASH N Rep #: [id number] : 1950 F 67 From: Martha Delgado MD PCP: Hannah Leos DO Status: [facility] Study: Chest 1 View Date of Exam: 11/16/17 Exam# [id number] Ordering Dr: Mehul Pollock MD STUDY: X-RAY CHEST REASON FOR EXAM: Female, 67 years old. S/P PACEMAKER INSERTION TO EXCLUDE PNEUMOTHORAX TECHNIQUE: Single AP portable view of the chest. COMPARISON: None. FINDINGS: Pacemaker is identified The lungs are underexpanded. Subsegmental atelectases are noted in the right and left lung bases. There is no demonstrated pleural abnormality. Normal size heart. Normal mediastinum and jannette. Normal visualized pulmonary arteries. Normal visualized aortic arch and descending thoracic aorta. Normal visualized thoracic spine. 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 There is no demonstrated abnormality of the visualized soft tissue structures of the upper abdomen. RAD/Chest 1 View IMPRESSION: There is no evidence of pneumothorax. Electronically Signed: Martha Delgado MD at 7:15 EDT Tel , Service support , CC: Mehul Pollock MD; Hannah Leos DO Tabular Typist: Signed 16-Nov-2017 Chest PA and Lateral Result: Comments: See Note; NOTES: [facility] Imaging Services [address] [address] Chest PA and Lateral MR#: [id number] Acct: [id number] Name: HERMINIA NASH N Rep #: [id number] : 1950 F 67 From: Mallorie Bolaños MD PCP: Hannah Leos DO Status: [facility] Study: Chest PA and Lateral Date of Exam: 11/16/17 Exam# [id number] Ordering Dr: Mehul Pollock MD STUDY: X-RAY CHEST REASON FOR EXAM: Female, 67 years old. Status post pacemaker insertion, assessment for pneumothorax. TECHNIQUE: AP inspiratory and expiratory upright and lateral views of the chest. COMPARISON: 10/13/2017 FINDINGS: There is a left subclavian approached multilead permanent pacemaker with tips in the right right atrium and right ventricle. There is no demonst rated pneumothorax. There is low inspiratory level. There are atelectatic changes in the basis There is no demonstrated pleural abnormality. There is stable mild cardiac enlargement. Normal mediastinu m and jannette. Normal visualized pulmonary arteries. Normal visualized aortic arch and descending thoracic aorta. There are diffuse degenerative changes of the visualized thoracic spine. Normal visualized ribs, clavicles, and shoulders. There is no demonstrated abnormality of the visualized soft tissue structures of the upper abdomen. RAD/Chest P A and Lateral IMPRESSION: Pacemaker appears in good position, no pneumothorax. Stable cardiac enlargement, degenerative changes. Low lung volumes with bibasilar atelectasis suspected. Electronically Signed: Mallorie Bolaños MD at 7:34 EDT , Service support , CC: Mehul Pollock MD; Hannah Leos DO Tabular Typist: Signed 05-Nov-2017 Office Visit Report Result: Comments: See Note; NOTES: [facility] Services [facility] [address] [place] [address] OFFICE VISIT Date of Service: 11/05/17 MR#: [id number] Acct: [id number] Patient: HERMINIA NASH Rep #: [id number] : 1950 Provider: Verónica Trinidad Age/Sex: 67/F Location: [facility] Status: Signed Comments Summary Comments: PPM implant instructions, written and verbal, given to patient and spouse inc luding post-implant wound check appt. All questions answered and pt and spouse verbalize understanding. Device Device Date Interviewed: 11/05/17 Follow-up Location: in office Interview Reason: schedul ed follow up Billing Codes Nurse, Teaching, Wound Ck (no charge): Yes Assessment AND Plan Problems 1. Junctional rhythm I49.8 2. Bradycardia R00.1 3. Tachy- alethea syndrome I49.5 Orders Orders: 1053 <Electronically signed by Verónica Trinidad > Date Verónica Trinidad 11/05/17 1522<Electronically signed by Mehul Pollock MD > Cosigner Signature: Date (if applicable) Mehul Pollock MD CC: 05-Nov-2017 12 Lead EKG performed by [facility] Result: Comments: See Note; NOTES: [facility] [address] [place] [address] 12 Lead EKG performed by [facility] 11/05/17 1027 MR#: [id number] Acct: [id number] Name: HERMINIA BLAND Rep #: [id number] : 1950 67 From: Mehul Pollock MD Attending Dr: Verónica Trinidad Status: REG AMB Ordering Dr: Mehul Pollock MD Date: 11/05/17 Location: [facility] Sex: F A Admitted: ZEINA R #: [id number] BMS/12 Lead EKG performed by [facility] Sinus Rhythm Low voltage in limb leads. - Diffuse nonspecific T-abnormality. BNORMAL 11/05/17 1522 <Electronically signed by Mehul Pollock MD&amp ;#62; Date Mehul Pollock MD CC: Hannah Leos DO Date Dictated: 11/05/17 1027 Date Transcribed: 11/05/17 102 Tabular Typist: CO Signed 05-Nov-2017 12 Lead EKG performed by [facility] Result: Comments: See Note; NOTES: [facility] [address] [place] [address] 12 Lead EKG performed by [facility] 11/05/17 1027 MR#: [id number] Acct: [id number] Name: HERMINIA BLAND Rep #: [id number] : 1950 67 From: Mehul Pollock MD Attending Dr: Verónica Trinidad Status: DEP AMB Ordering Dr: Mehul Pollock MD Date: 11/05/17 Location: [facility] Sex: F A Admitted: BMS/12 Lead EKG performed by [facility] ECG Report Interpretation Sinus Rhythm Low voltage in limb leads. - Diffuse nonspecific T-abnormality. ABNORMAL Electronically sig perfecto on 11/18/2017 at 13:49 by Mehul Pollock 11/18/17 1350 Date Mehul Pollock MD CC: Hannah Leos DO Date Dictated: 11/05/17 1027 Date Transcribed: 11/05/17 1027 Tabular Typist: CO Signed 29-Oct-2017 Cardiology Visit Report Result: Comments: See Note; NOTES: [facility] [address] [place] [address] OFFICE VISIT Date of Service: 10/29/17 MR#: [id number] Acct: [id number] Name: HERMINIA NASH Rep #: [id number] : 1950 Provider: Yasmin Aiken Age/Sex: 67/F Location: [facility] Status: Signed HPI HPI Details: HERMINIA NASH, is a 67 F who presents to the office today for a hospit al follow-up. Patient does have a history of hypertension, atrial fibrillation, tachybradycardia syndrome. Patient was in the hospital approximately 2-3 weeks ago for vaginal bleeding. She was on Eliq uis for her atrial fibrillation. This was discontinued. She was started on an estrogen cream. However during that time when she was in the hospital she was noted to be in a junctional rhythm with a hear t rate of 38. Her metoprolol was discontinued. Patient states that since she has been home she is continuing to note occasional low heart rate readings were heart rates are in the 30s and 40s. During t hat time she does feel fatigued. She does not have any chest discomfort or heaviness. She does not have any worsening shortness of breath. She is not aware of any irregular heartbeats. She does not hav e any near-syncope or syncope. She does have some lightheadedness and dizziness but is uncertain if this is related to her recent head injury where she had a intracranial bleed that she had in February 2017 . She is still recovering from this. She does not have any lower extremity edema is. Intake Vital Signs10/29/17 Height 5 ft 1 in 10/29/17 Weight: 172 lb 10/29/17 Body Mass Index (BMI) 32.5 10/29/17 Blood Pressure 160/80 10/29/17 Blood Pressure Location Lt brachial Intake Visit Reasons: 4 M Medical Asst Required: No Accompanied by: Is patient in pain?: No Allergies escitalopram [From L exapro] Allergy (Verified 10/06/17 20:37) Rash shellfish derived Allergy (Verified 10/06/17 20:37) Unknown hydroxychloroquine [From Plaquenil] Adverse Reaction (Severe, Verified 10/27/17 07:41) Unknown perfume Adverse Reaction (Verified 10/06/17 20:37) Unknown pineapple Adverse Reaction (Verified 10/06/17 20:37) Rash quinine Adverse Reaction (Verified 10/06/17 20:37) Unknown strawberry Adverse Reactio n (Verified 10/06/17 20:37) Rash Sulfa (Sulfonamide Antibiotics) Adverse Reaction (Verified 10/06/17 20:37) Unknown DUST Adverse Reaction (Uncoded 10/06/17 20:37) Unknown Medications Alendronate Sodi um [Fosamax] 70 mg PO PRECIADO 04/08/17 [History Confirmed 10/27/17] Fexofenadine HCl [Children's Merry Allergy] 30 mg PO DAILY 04/08/17 [History Confirmed 10/27/17] Metformin HCl [Glucophage] 500 mg PO BID CM 04/08/17 [History Confirmed 10/27/17] Multivitamins,Therapeutic [Multivitamin] 1 tab PO DAILY 04/08/17 [History Confirmed 10/27/17] Simvastatin [Zocor] 40 mg PO QHS 04/08/17 [History Confirmed ] Mirtazapine 30 mg PO QHS 05/20/17 [History Confirmed 10/27/17] Oxybutynin Chloride [Ditropan Xl] 5 mg PO DAILY 05/20/17 [History Confirmed 10/27/17] Amlodipine [Norvasc] 5 mg PO DAILY 10/06/17 [Hist ory Confirmed 10/27/17] Empagliflozin [Jardiance] 10 mg PO DAILY 10/06/17 [History Confirmed 10/29/17] Hydroxyzine HCl 25 mg PO BID 10/07/17 [History Confirmed 10/27/17] Lacosamide [Vimpat] 200 mg PO BI D 10/13/17 [History Confirmed 10/13/17] lacosamide 150 mg tablet 150 mg PO BID 10/27/17 [History Confirmed 10/27/17] ranitidine 150 mg tablet 150 mg PO BID tab 10/27/17 [History Confirmed 10/27/17] P [facility] Medical History Tachy-alethea syndrome (Chronic) Bradycardia (Chronic) Atrial fibrillation (Chronic) Atrial fibrillation with RVR (Chronic) HLD (hyperlipidemia) (Chronic) HTN (hypertension) (Chronic) Hypertensive emergency without congestive heart failure (Chronic) New onset a- fib (Chronic) Encounter for long-term current use of high risk medication (Chronic) Surgical History History of breast s urgery (Resolved) History of hysterectomy (Resolved) Family History Brother Heart disease Hx CABG Hypertension Diabetes Mother Hypertension Social History Smoking Status: Never smoker alcohol intak e: never substance use type: does not use caffeine: No what type of physical activity do you participate in: none seatbelt use: always do you feel safe at home: Yes ROS Const Const: Positive f or weakness and fatigue; negative for fever(s) or headache(s) Eyes Eyes: Negative for blind spots, loss of peripheral vision or transient loss of vision ENT ENT: Positive for dizziness; negative for hea dache(s), tinnitus or Nosebleed/epistaxis Cardio Chest Pain: No Palpitations: No Edema: None Muscle aches with walking: None Resp Respiratory: Negative for SOB with activity, SOB at rest, SOB orthopnea\ SOB lying down or Cough GI GI: Negative nausea, vomiting, heartburn or vomiting blood/hematemesis : Negative for hematuria Musc Musc: Negative for muscle aches/ myalgia Neuro Neuro: Positive for we akness, dizziness and lightheadedness; negative for headache(s), near syncope, syncope or orthostatic symptoms Dashawn Hematologic/Lymphatic: Negative for easy bleeding Endo Endo: Positive for fatigue Ca rdiology Exam Const Appearance: cooperative, no acute distress and well developed Orientation: alert, awake and oriented x3 Head Head: normocephalic and atraumatic Mouth: moist mucous membranes Eyes Gen eral: appearance normal, both eyes and all related structures Conjunctivae: conjunctivae normal Pupils: PERRL EOM: EOM intact bilaterally Neck Neck: normal visual inspection, no lymphadenopathy and no J VD Carotids: Negative bruit Neck Mass: Negative Neck mass Chest Chest inspection: normal inspection of the chest and symmetric chest movement Auscultation: Bilateral: Clear to Auscultation Cardio Palpat ion: normal PMI Rate: regular rate Rhythm: regular rhythm Heart sounds: S1 normal and S2 normal; negative rub, gallop or murmur GI GI: normal to inspection, soft, no hepatosplenomegaly and bowel sounds present; negative tender Neuro General: alert, awake, oriented x3, CN's II-XI intact bilaterally and moves all extremities Extremities Pulses: Normal: Right Posterior Tibial Pulse, Left Posterior Tibial Pulse, Right Radial Pulse, Left Radial Pulse Lower Extremity Edema: None: Bilateral Psych Psychological: normal affect Assessment AND Plan 1. Essential hypertension I10 Plan Slightly elevated today h owever at home her blood pressure readings have been normotensive. We will continue to monitor. Will not make any adjustments. 2. Paroxysmal atrial fibrillation I48.0 Plan Patient is currently not anti coagulated due to recent vaginal eating she is not on a rate limiting medication due to her junctional rhythm. Will monitor closely. 3. 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 Would like to further evaluate with a 30 day event monitor as she is no longer on a beta-wiley. We will continue to follow w ith patient closely. Plan Detail Additional Comments Thank you for allowing us to participate in patient's plan of care, if you have any questions please do not hesitate to call. This note was generat ed using a voice recognition system and there may be incorrect words, spelling or punctuation errors that were not noted when reviewing the office note prior to saving. 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 10/29/17 1524 <Electronically signed by Yasmin HATCH> Date Yasmin HATCH Cosigner Signature: Date (if applicable) CC: 13-Oct-2017 Discharge Instruction Result: Comments: See Note; NOTES: [facility] Medical Records Department [address] [place] [address] Discharge Instruction 10/13/17 1624 MR#: [id number] Acct: [id number] Name: HERMINIA NASH Rep #: [id number] : 1950 67 From: Wenceslao Marley MD PCP: Hannah Leos DO Status: DEP ER ED Disposition - Plan for ED Patient: Disposition: Home or Assisted Living Chief Complai nt: General Illness Instructions: ED Fever Control Referrals: Hannah Leos DO [Primary Care Provider] - As soon as possible Additional Instructions: Continue your current antibiotic for the urinary tract infection. Plenty of fluids and rest. Tylenol for the fever. Return to the ER if you are feeling worse. What to do if you have Problems For any increased pain, shortness of breath, bleeding, nausea or vomiting, chest pain, or any unexpected problems, contact your Primary Care Provider. Call [facility] ([phone]) or report to the closest Emergency Room. Call 911 if necessary. 1710 <Electronically signed by Wenceslao Marley MD> Date Wenceslao Marley MD Cosigner Signature (If Indicated): Date _ CC: Hannah Leos DO 13-Oct-2017 Emergency Department Summary Result: Comments: See Note; NOTES: [facility] Medical Records Department [address] [place] [address] Emergency Department Summary 10/13/17 1240 MR#: [id number] Acct: [id number] Name: HERMINIA NASH Rep #: [id number] : 1950 67 From: Wenceslao Marley MD PCP: Hannah Leos DO Status: DEP ER - ER Visit Summary Date of Service: 10/13/17 Chief Complaint: Cough, fever and ch ills History of Present Illness: The patient is a 67 F past medical history significant for hemorrhagic CVA, tck-kwyflbx-wzknfguhr diabetes, hypertension, A. fib, seizure disorder. Patient was just sta rted on antibiotics for UTI a day or so ago. Today presented her primary care physician's office Dr. Angeles Leos ER and called me prior to patient's presentation. Physical Examination: Older female cu rrently no acute distress. Temperature 991. Pulse is 95% room air no signs of hypoxia. She does not look dehydrated. HEENT exam normal. Moist mucous membranes. Neck nontender no lymphadenopathy. Lungs d ry cough but no rales, rhonchi. Few scattered wheezes. Heart regular rate and rhythm no murmur rate about 70. Abdomen is soft and nontender. No peritoneal signs. Normal bowel sounds. She is moving all 4 extremities. They are nontender. No edema. Neurologically she is awake and alert moving all 4 extremities. Test Results: His white count 8. H AND H 1136 which is her baseline chronic anemia. No bands. Electrolytes are unremarkable with a glucose of 163 and a normal creatinine and anion gap of 12. UA was normal other than urine ketones consistent with mild dehydration. Lactic acid was slightly elevat ed 2.8. Urine cultures are pending. Chest x-ray shows no acute abnormality mild cardiomegaly read both by myself and the radiologist. Emergency Department Course and Treatment: Patient with fever and c hills. Currently being treated for UTI. Will be evaluated for other causes of infection also. Treatment Plan: I spoke to the hospitalist who will be down and evaluate the patient for possible admission and observation versus discharge to home. Disposition: This did come down to evaluate the patient emergency department. He and the patient and family are comfortable with her being discharged home Im pression: Acute fever and chills Mildly elevated lactic acid History of prior intracranial bleed. History of CVA. With seizure disorder. History of pmy-ugrhihw-wufozkehx diabetes. History of A. fib T his note was generated with [employer] dictation software. It may contain incorrect words, spelling, and punctuation that were not noted in review of the chart prior to signing ED Disposition - Plan for ED Patient: Chief Complaint: General Illness Referrals: Hannah Leos, DO [Primary Care Provider] - What to do if you have Problems For any increased pain, shortness of breath, bleeding, nausea or vomiting, chest pain, or any unexpected problems, contact your Primary Care Provider. Call [facility] ([phone]) or report to the closest Emergency Room. Call 911 if necessary. 10/13/17 170 9 <Electronically signed by Wenceslao Marley MD> Date Wenceslao Marley MD Cosigner Signature (If Indicated): Date CC: Hannah Leos DO 13-Oct-2017 Consultation Result: Comments: See Note; NOTES: [facility] Medical Records Department [address] [place] [address] Consultation 10/13/17 1608 MR#: [id number] Acct: [id number] Name: HERMINIA NASH Rep #: [id number] : 1950 67 From: Noe Kwok MD PCP: Hannah Leos DO Status: REG ER Y Location: ED Problem List (1) Febrile illness, acute Status: Acute Reason for Consult Date of C onsultation: 10/13/17 Reason for Consultation: Febrile illness, malaise History of Present Illness: Patient is a 67 years old female who was sent to ED from PCP's office. She was recently treated for UTI with nitrofurantoin. She has diffuse myalgia and low grade temperature past 1.5 day. She denied of any headache, sore throat, nasal congestion, cough, chest pain, abdominal pain, nausea, vomiti ng, or diarrhea. She has decreased appetite. Work up was done, which were essentially unremarkable with normal WBC at 8.9, normal renal function, and questionable UA. Even before antibiotics, she did no t have any urinary symptoms. She was recently discharged from hospital after she had vaginal bleeding and bradycardia with atrial fibrillation, discharged on 10/08/17. She did well for a couple of days, then started to feel ill for past 2 days. Past Medical History Past Medical History (Chronic Problems): Chronic Problems Atrial fibrillation (Chronic) HLD (hyperlipidemia) (Chronic) HTN (hypertension ) (Chronic) Diabetes (Chronic) SDH (subdural hematoma) (Chronic) Allergies escitalopram [From Lexapro] Allergy (Verified 10/06/17 20:37) Rash shellfish derived Allergy (Verified 10/06/17 20:37) Unkno wn perfume Adverse Reaction (Verified 10/06/17 20:37) Unknown pineapple Adverse Reaction (Verified 10/06/17 20:37) Rash quinine Adverse Reaction (Verified 10/06/17 20:37) Unknown strawberry Adverse Reac tion (Verified 10/06/17 20:37) Rash Sulfa (Sulfonamide Antibiotics) Adverse Reaction (Verified 10/06/17 20:37) Unknown DUST Adverse Reaction (Uncoded 10/06/17 20:37) Unknown Home Medications: Ambulato ry Orders Medication Instructions Recorded Alendronate Sodium [Fosamax] 70 mg PO PRECIADO 04/08/17 Surgical History: no surgical history Psychiatric History: No pertinent psych hx EXECUTIVE RELATIONS SPECIALIST History: No pertinent EXECUTIVE RELATIONS SPECIALIST history Smoking Status: Never smoker - *Family History Maternal History Items: No pertinent history Sibling History Items: Heart Disease Review of Systems Comment: ROS: In general: See HPI . HEENT: Unremarkable. Patient denied of any dizziness, chronic headache, blurred vision, double vision, dry mouth, or nasal congestion. CV/respiratory: There is no exertional shortness of breath, chest pain, palpitation, wheezing, cough, claudication, cold feet, or peripheral edema. GI: Patient denied any abdominal pain, nausea, vomiting, diarrhea, constipation, melena, or hematochezia. : Patient d enied any significant urinary symptoms. 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 Psychological: Unremarkable. . Endocrine: Unremarkable. Musculoskeletal: Unremarkable. Patient Pro blems: Active and Suspected Problems Febrile illness, acute (Acute) Objective: In general, patient is a well-nourished and developed adult. HEENT: Head is atraumatic, and normocephalic. Pupils are e qual, round, and reactive to light and accommodations. Neck is supple. There is no lymphadenopathy, or thyromegaly. Oral mucosa is pink, and moist. There are no lesions. Heart: Auscultation is normal wi th regular rhythm and rate. There is no extra heart sounds, or murmurs. S1 and S2 are present. Point of maximal impulse is not displaced. Lungs: Lungs are clear to auscultation bilaterally. There is no wheezing, or crackles. Abdomen: Abdominal wall is non-tender, and non-distended. There is no palpable mass or organomegaly. Normoactive bowel sounds are present. Extremities: There is no cyanosis or clu bbing. Peripheral pulses are palpable. There is no edema. Skin: There are no any skin discoloration or lesions. Neurological: CN II - XII are intact. Sensory and motor functions are grossly normal with no obvious deficit. Cerebellar functions are within normal range. Gait was not tested. - Physical Exam Vital Signs Temp Pulse Resp BP Pulse Ox 99.1 F 60 20 H 110/59 L 96 10/13/17 12:13 10/13/17 16:0 5 10/13/17 16:05 10/13/17 16:05 10/13/17 16:05 Oxygen Delivery Method Room Air Weight: 168 lb Body Mass Index (BMI) 31.7 Finger Stick Blood Glucose 129 Microbiology Past 72 Hours 10/13/17 13:08 Inf luenza Types A,B Direct FA (NICOLA) - Final Mucosa - Nose Laboratory Tests Past 24 Hrs WBC 8.9 RBC 4.16 L Hgb 11.4 L Hct 36.0 L MCV 86.5 MCH 27.4 MCHC 31.7 L RDW 14.9 H RDW Differential 45.4 H WBC RBC H gb Hct MCV MCH MCHC RDW RDW Differential Plt Count MPV Immature Gran % (Auto) Neut % (Auto) Lymph % (Auto) [place] % (Auto) Diagnostic Data Chest X-Ray 10/13/17 13:11 IMPRESSION: Mild cardiomegaly withou t evidence of acute cardiopulmonary disease.. Electronically Signed: Anna Becerra MD at 13:49 EST , Service support , Assessment/Plan Ac tive and Suspected Problems Febrile illness, acute (Acute) Patient is a 67 years old female who was sent to ED from PCP's office. She was recently treated for UTI with nitrofurantoin. She has diffuse myalgia and low grade temperature past 1.5 day. She denied of any headache, sore throat, nasal congestion, cough, chest pain, abdominal pain, nausea, vomiting, or diarrhea. She has decreased urban etite. Work up was done, which were essentially unremarkable with normal WBC at 8.9, normal renal function, and questionable UA. Even before antibiotics, she did not have any urinary symptoms. #1 Febri le illness. The findings and history are more consistent with viral syndrome. At this time, she has no significant focal symptoms that needs to be addressed. Observation vs. conservative treatment at me offered. She and her husbands are agreeable with conservative management at home. Continue to keep up with oral fluid intake, and take Tylenol prn for low grade temperature / fever. Patient should re turn to ED if she develops any other symptoms or condition worsen. #2 Elevated lactic acid. LC was 2.8, however, her vitals are normal, and WBC are normal. There is no signs of overt infection. CXR juan wed some degree of cardiomegaly, no IVF resuscitation was indicated. Discussed with Dr. Marley. OK to discharge patient to home and follow up as outpatient. Code Visit Inpatient E AND M: [id number] Ini t Hosp L2 10/13/17 1625 <Electronically signed by Noe Kwok MD> Date Noe Kwok MD Cosigner Signature (if applicable): Date CC: Hannah Leos DO Signed 13-Oct-2017 Chest PA and Lateral Result: Comments: See Note; NOTES: [facility] Imaging Services [address] [place] [address] Chest PA and Lateral MR#: [id number] Acct: [id number] Name: HERMINIA NASH Rep #: [id number] : 1950 F 67 From: Anna Becerra MD PCP: Hannah Leos DO Status: REG ER Study: Chest PA and Lateral Date of Exam: 10/13/17 Exam# [id number] Ordering Dr: Wenceslao Marley MD STUDY: X-RAY C HEST REASON FOR EXAM: Female, 67 years old. Cough and fever. TECHNIQUE: PA and lateral views of the chest. COMPARISON: October 06, 2017. FINDINGS: The lungs are expanded. There is subtle interstitial thickening visible in both lungs. There is no demonstrated pleural abnormality. There is mild cardiac enlargement. Normal mediastinum and jannette. There is prominenc e of the pulmonary hilar arteries without peripheral pulmonary vascular congestion. There is atherosclerotic calcification of the aortic arch with tortuosity. There is demineralization of the osseous s tructures. There are degenerative changes of both shoulders. There is multilevel thoracic spondylosis. There is no demonstrated abnormality of the visualized soft tissue structures of the upper abdomen . RAD/Chest PA and Lateral IMPRESSION: Mild cardiomegaly without evidence of acute cardiopulmonary disease.. Electronically Signed: Anna Becerra MD at 13:49 EST , Service support , CC: Wenceslao Marley MD; Hannah Leos DO Tabular Typist: Signed 06-Oct-2017 Emergency Department Summary Result: Comments: See Note; NOTES: [facility] Medical Records Department [address] [place] [address] Emergency Department Summary 10/06/17 2224 MR#: [id number] Acct: [id number] Name: HERMINIA NASH Rep #: [id number] : 1950 67 From: Francia Lr MD PCP: Hannah Leos DO Status: REG ER - ER Visit Summary Date of Service: 10/06/17 Chief Complaint: Vaginal bleeding, li ghtheadedness History of Present Illness: The patient is a 67 F presenting with vaginal bleeding which started earlier this morning. She was seen by Dr. Leos her primary care physician. She confirmed that this was vaginal bleeding and not urinary. She referred her to see Dr. Sarah Hodges a week from Wednesday. She states throughout the day she had bleeding similar to a period. She states she soaked th rough 4-5 pads. She has a history of previous partial hysterectomy. She is on eliquis for history of atrial fibrillation. She takes metoprolol bid. She has had lightheadedness and near syncope today. De nies chest pain, shortness of breath, or abdominal pain. Physical Examination: Heart rate 30-35. Patient is afebrile. Alert no acute distress. HEENT exam is unremarkable. Neck is supple. Lungs are andry r and equal bilaterally. Heart is regular bradycardic Abdomen is soft nontender nondistended. Pelvic exam: Minimal vaginal bleeding Extremities are unremarkable. Skin is warm and dry. Remainder of exam is unremarkable. Emergency Department Course and Treatment: Orthostatics are negative. Patient continues to be bradycardic in the 30s. Chest x-ray shows mild cardiomegaly with no infiltrate. EKG is ju nctional bradycardia rate of 39 with inferior T-wave inversion. This is changed from previous EKG May 2017. CBC normal except for hemoglobin 10.8. Chemistries unremarkable except for glucose 155, BU N 32. Troponin is negative. Discussed with Dr. Miller who is agreeable with consult, he requests pelvic ultrasound prior to admission. Discussed with Dr. Pollock who will also see the patient in consultati on, recommends holding metoprolol and observation. Discussed with the hospitalist for admission. Disposition: Observation Impression: Symptomatic bradycardia, vaginal bleeding This note was genera gayla with [employer] dictation software. It may contain incorrect words, spelling, and punctuation that were not noted in review of the chart prior to signing ED Disposition - Plan for ED Patient: Chief C omplaint: Vag Bleeding Referrals: Hannah Leos, DO [Primary Care Provider] - What to do if you have Problems For any increased pain, shortness of breath, bleeding, nausea or vomiting, chest pain, or any unexpected problems, contact your Primary Care Provider. Call [facility] ([phone]) or report to the closest Emergency Room. Call 911 if necessary. 10/06/17 2318 <Electronica lly signed by Francia Lr MD> Date Francia Lr MD Cosigner Signature (If Indicated): Date CC: Hannah Leos DO 06-Oct-2017 Pelvic (Non ) Result: Comments: See Note; NOTES: [facility] Imaging Services [address] [place] [address] Pelvic (Non ) MR#: [id number] Acct: [id number] Name: HERMINIA NASH Rep #: [id number] : 1950 F 67 From: Tirso Ovalle PCP: Hannah Leos DO Status: REG ER Study: Pelvic (Non ) Date of Exam: 10/06/17 Exam# [id number] Ordering Dr: Francia Lr MD STUDY: ULTRASOUND OF THE FEMALE PELVIS - COMPLETE REASON FOR EXAM: Female, 67 years old. Post menopausal bleeding TECHNIQUE: Transabdominal and Transvaginal TECHNICAL QUALITY: Adequate. COMPARISON: None. FINDINGS: The uterus is removed. Ovaries are not visualized. No adnexal mass. There is no fluid in the cul-de-sac. The pre void volume of the bladder was 181 ml. Debris withi n the bladder. US/Pelvic (Non ) IMPRESSION: Uterus removed. No adnexal mass. Ovaries not visualized. Debris within the urinary bladder. Electronically Signed: Tirso Ovalle DO at 23:01 EST , Service support , CC: Francia Lr MD; Hannah Leos DO Tabular Typist: Signed 06-Oct-2017 Chest 1 View (Portable) Result: Comments: See Note; NOTES: [facility] Imaging Services [address] [place] [address] Chest 1 View (Portable) MR#: [id number] Acct: [id number] Name: HERMINIA NASH Rep #: [id number] : 1950 F 67 From: Tirso Ovalle PCP: Hannah Leos DO Status: [facility] ER Study: Chest 1 View (Portable) Date of Exam: 10/06/17 Exam# [id number] Ordering Dr: Francia Lr MD STUDY: X-RAY C HEST REASON FOR EXAM: Female, 67 years old. Dizziness, vaginal bleeding TECHNIQUE: Single AP portable view of the chest. COMPARISON: 06/20/2017. FINDINGS: EKG shayla es overlying the chest. The lungs are expanded. There is no demonstrated pleural abnormality. There is mild cardiac enlargement. Normal mediastinum and jannette. There is prominence of the pulmonary hilar arteries without peripheral pulmonary vascular congestion, suggesting pulmonary hypertension. Normal visualized aortic arch and descending thoracic aorta. Normal visualized thoracic spine. Normal visu alized ribs, clavicles, and shoulders. There is no demonstrated abnormality of the visualized soft tissue structures of the upper abdomen. RAD/C hest 1 View (Portable) IMPRESSION: Pulmonary hypertension. Mild cardiomegaly. No infiltrate. Electronically Signed: Tirso Ovalle DO at 21:42 EST , Service support [phone], CC: Francia Lr MD; Hannah Leos DO Tabular Typist: Signed 03-Sep-2017 Emergency Department Summary Result: Comments: See Note; NOTES: [facility] Medical Records Department [address] [place] [address] Emergency Department Summary 09/02/17 2105 MR#: [id number] Acct: [id number] Name: HERMINIA NASH Rep #: [id number] : 1950 67 From: Jesus Alberto Fernandes MD PCP: Hannah Leos DO Status: DEP ER - ER Visit Summary Date of Service: 09/02/17 Chief Complaint: Seizure History of P resent Illness: The patient is a [address] Beebe and Dr. Leos. reports that she has had 2 seizures today. During this her face goes rigid and she drools. Her eyes rolled back and she p ounds the bed. Each of these lasted approximately 10 minutes. She did not fall or injure herself. She did not bite her tongue or wet her pants. It does not sound as though she had a postictal episode. Physical Examination: Vitals: Stable. Afebrile. General: Well-nourished and well- developed. Head: Normocephalic atraumatic. Neck: Supple, no lymphadenopathy. No JVD. Nontender. Cardiovascular: Regular r ate and rhythm. No murmurs. Respiratory: No respiratory distress. Clear to auscultation bilaterally. Abdominal: Soft, nontender, nondistended, normal bowel sounds. No guarding, rebound, or peritoneal si gns. Back: Nontender. Extremities: Nontender, no edema. Skin: Normal color, no rash. Neurologic: Alert and oriented 3. Cranial nerves II through XII are intact. Normal strength and sensation. Psych: Nor mal affect. Test Results: CBC is normal. Chem-7 is marked for glucose 120. CT brain shows a 3 cm wedge-shaped low-attenuation area in the right parietal lobe and suggested an MRI. Brain MRI 09/02/17 17:00 IMPRESSION: Involutional changes of the brain, as described above. Previous right parietal insult corresponding to the CT abnormality. No acute infarct. Improvement of previously noted subdural c ollection with minimal residual extra-axial signal alteration. Electronically Signed: Darrell Prado MD at 19:47 EST , Service support , [facility] Department Course and Treatment: Patient was given a dose of Ativan IV. She has had some very atypical activity that the describes as seizures. Patient is able to talk throughout these. T reatment Plan: Patient was discussed with Dr. Turpin. She will have her Vimpat increased from 150 to 200 twice daily. Follow-up with him as soon as possible. Return to the emergency department for any wo rsening symptoms. Disposition: To home in improved and stable condition. Impression: 1. Recurrent seizure. This note was generated with [employer] dictation software. It may contain incorrect words, sp elling, and punctuation that were not noted in review of the chart prior to signing ED Disposition - Plan for ED Patient: Disposition: Home or Assisted Living Chief Complaint: Seizure Instructions: E D Seizure Recurrent Prescriptions: Lacosamide [Vimpat] 200 mg PO BID #60 tablet Referrals: Manjinder Turpin MD [STAFF PHYSICIAN] - As soon as possible What to do if you have Problems For any increased p ain, shortness of breath, bleeding, nausea or vomiting, chest pain, or any unexpected problems, contact your Primary Care Provider. Call [facility] ([phone]) or report to the closest Emergenc y Room. Call 911 if necessary. 09/03/17 0218 <Electronically signed by Jesus Alberto Fernandes MD> Date Jesus Alberto Fernandes MD Cosigner Signature (If Indicated): Date CC: Hannah Leos DO 02-Sep-2017 Brain W/WO Contrast Result: Comments: See Note; NOTES: [facility] Imaging Services [address] [place] [address] Brain W/WO Contrast MR#: [id number] Acct: [id number] Name: HERMINIA NASH Rep #: [id number] : 1950 F 67 From: Darrell Prado MD PCP: Hannah Leos DO Status: [facility] ER Study: Brain W/WO Contrast Date of Exam: 09/02/17 Exam# [id number] Ordering Dr: Jesus Alberto Fernandes MD STUDY: MRI BRAI N WITH AND WITHOUT CONTRAST REASON FOR EXAM: Female, [address] Seizure. TECHNIQUE: Standardized multiplanar fat and water weighted pulse sequences were obtained. 6 ml of Gadavist cont rast material was administered intravenously for the contrast portion of the examination. COMPARISON: CT September 02, 2016. MRI April 21, 2017. FINDINGS: There is mi ld cerebral atrophy with widening of the extra-axial spaces and ventricular dilatation. There are a limited number of small white matter hyperintensities, distributed throughout the deep white matter tr acts of the cerebral hemispheres, consistent with mild chronic white matter ischemic changes. Right parietal T2 signal hyperintensity with volume loss and encephalomalacia corresponding to the CT abnorm ality, series 6 image -. There is no evidence for recent intracranial ischemia or other cause of cytotoxic edema on diffusion weighted imaging (DWI). There is improvement of right parietal a nd temporal subdural hematoma with minimal residual extra-axial signal alteration Normal bilateral basal ganglia. Normal thalami. There is no extra-axial fluid accumulation. Normal flow voids within t he major intracranial circulation suggesting patency by spin echo criteria. Normal venous enhancement. There is no enhancing intra-axial or extra-axial abnormality. Normal sella turcica, pituitary glan d, infundibular stalk, optic chiasm and hypothalamus. Normal tectal plate and pineal gland. Normal midbrain, millie and medulla. Normal cerebellum. Normal basal cisterns. Normal bilateral temporal bones. Normal bilateral internal auditory canals. No demonstrated orbital abnormality, within the constraints of a routine brain study. Mucosal thickening of the right maxillary sinus. Normal calvarium and s kull base. Normal visualized soft tissue structures. Normal visualized upper cervical spine. MRI/Brain W/WO Contrast IMPRESSION: Involutional samy nges of the brain, as described above. Previous right parietal insult corresponding to the CT abnormality. No acute infarct. Improvement of previously noted subdural collection with minimal residual ex tra-axial signal alteration. Electronically Signed: Darrell Prado MD at 19:47 EST , Service support , CC: Hannah Leos DO; Jesus Alberto Fernandes MD Tabular Typist: Signed 02-Sep-2017 Brain/Head without Contrast Result: Comments: See Note; NOTES: [facility] Imaging Services [address] [place] [address] Brain/Head without Contrast MR#: [id number] Acct: [id number] Name: HERMINIA NASH Rep #: [id number] : 1950 F 67 From: Greg Leiva MD PCP: Hannah Leos DO Status: PRE ER Study: Brain/Head without Contrast Date of Exam: 09/02/17 Exam# [id number] Ordering Dr: Jesus Alberto Fernandes MD STUDY: CT BRAIN WITHOUT CONTRAST REASON FOR EXAM: Female, 67 years old. Seizure RADIATION DOSAGE (If Supplied By Facility): CTDIvol = ( 44.99 ) mGy, DLP = ( 745.49 ) mGycm TECHNIQUE: Transaxial CT imaging of the brain was performed without administration of intravenous contrast material. Individualized dose optimization techniques were used for this CT. COMPARISON: 06/21/2017. FINDINGS: Normal soft tissue structures. Normal calvarium. There is a questionable wedge-shaped area of low-attenuation of the surface of the right parietal lobe. See axial images 30-33, coronal images 15-54, and sagittal images 16-22. This was not definitely present previously. This could be an infarct of indeterminate age. However other etiologies are possible, an MRI with cont rast is recommended. Normal size ventricles and extra-axial spaces for the patient's age. Normal white matter tracts of the cerebral hemispheres. Normal basal ganglia and thalami. Normal brainstem. Nor mal cerebellum. There is no intracranial hemorrhage. There are no findings of an acute ischemic infarction. Normal visualized paranasal sinuses. 9 CT/Brain/Head without Contrast IMPRESSION: 3 cm wedge-shaped low attenuation area of the right parietal lobe. Please see comments above. MRI with contrast is recommended. Electronically Signed: Vicky Leiva MD at 16:39 EST , Service support , CC: Hannah Leos DO; Jesus Alberto Fernandes MD Tabular Typist: Signed 20-Aug-2017 PT D/C Summary (1) Result: Comments: See Note; NOTES: [facility] Physical Therapy [facility] [address] [place] [address] Fax REHABILITATION SERVICES DISCHAR GE SUMMARY MR#: [id number] Acct: [id number] Name: HERMINIA NASH Rep #: [id number] : 1950 67 From: Karel Kwong DPT, OCS, CSCS Referring Dr.: Hannah Leos DO Status: REG RCR Insurance: [employer] PPO HP - PT D/C Summary It has been my pleasure to treat HERMINIA NASH under orders from Hannah Leos, for the diagnosis of Left Weakness for a total of 18 visit(s). Discharge Da te: 08/20/17 Please see the following information for a summary of their discharge status. - Subjective Subjective: Lightheadedness only every other day for a minute. It's about the same as two weeks ago. Doing ex 60 seconds and slight goofy first time of day but not after that. Up and down worse than side to side. - Pain OLMEDO Pain Intensity (Out of 10): 2 - Overall Improvement % Improvement: 75 - Objective Objective/Function: Balance is +4 FGA. VOR is asymptomatic with horiz and vert 60 sec, Gets hard in busier environment and walking but no symptoms. - Goals Goal 1:: Patient will be I with HEP and progression Goal Progress: Goal Met Goal 2:: Patient will increase her TARIQ score to 41 to become a low fall risk Goal Progress: Goal Met Goal 3:: Patient demo 5/5 strength in LE Goal Progress: Goal Met Goal 4:: Patient will ambulate >300 feet with a normalized gait pattern Goal Progress: Goal Met Goal 5:: VOR 60 sec without symptoms. Goal Progress: Goal Met Goal 6:: Pt feel dizzyness 75% improved. Goal Progress: Goal Met - Plan Plan: D/C to HEP - D/C Information Discharge Comments: Balance plan and vestibular for the last 4 weeks goals have been met and will discharge to HEP. If there are questions or concerns regarding this patient's physical therapy, please feel free to call me at [phone]. Thank you for the referral of this patient. Sincerely, Karel Kwong, DPT, OC &am p;#60;Electronically signed by Karel Kwong DPT, YULISA, CSCS> 08/20/17 1619 CC: Hannah Leos DO EBG Signed 04-Aug-2017 Re-Evaluation - PT (1) Result: Comments: See Note; NOTES: [facility] [address] [place] [address] Fax [facility] MR#: [id number] Acct: [id number] Name: HERMINIA NASH Rep #: [id number] : 1950 67 From: Karel Kwong DPT, YULISA, CSCS Referring Dr.: Hannah Leos DO Status: REG RC R Insurance: [employer] MEDICARE PPO Hannah Leos, It has been my pleasure to treat HERMINIA NASH over the last 15 visits for Left Weakness. Please see the progress note below for an update on physical therapy plan of care! Subjective: Gets spinning. Got it this morning with moving head around. Notes it with a lot of things moving. Sometimes if moves too quick or bends over and it happens quickly. No falls lately but feels unsteady at times. Objective/Function: Balance is -1 for age. Positional is negative. Pursuit adn saccades are OK buit VOR gives mild symptoms for short perior d of time horizontally. Plan Plan: 1x/week x 4 weeks for vestibular ex progression Goals Goal 1:: Patient will be I with HEP and progression Goal Time Frame: 4-6 Weeks Goal Progress: Progressing Goal 2:: Patient will increase her TARIQ score to 41 to become a low fall risk Goal Time Frame: 4-6 Weeks Goal Progress: Progressing Goal 3:: Patient demo 5/5 strength in LE Goal Time Frame: 4-6 Weeks Goal Pr ogress: Progressing Goal 4:: Patient will ambulate >300 feet with a normalized gait pattern Goal Time Frame: 4-6 Weeks Goal Progress: Progressing Goal 5:: VOR 60 sec without symptoms. Goal Time Frame: 2-4 Weeks Goal Progress: NEW GOAL Goal 6:: Pt feel dizzyness 75% improved. Goal Time Frame: 4-6 Weeks Goal Progress: NEW GOAL Anticipated Interventions Patient/Client Instruction: Educate patialex t on: Benefits of Fitness Program For the Purpose of:: To increase tolerance to activity/condition/position Therapeutic Exercise to Include: Strength training, Endurance training, Balance training, Body mechanics, Postural training, Gait and locomotor training Comment: vestibular progression For the Purpose of:: Other Other: decrease dizzy Please do not hesitate to contact me at [phone] by phone or if you have questions or concerns regarding this new plan of care! Sincerely, Karel Kwong DPT, OC <Electronically signed by Karel Kwong DPT, OCS, [facility]> 7 0746 CC: Hannah Leos DO EBG Signed For Medicare only, by signing this I certify the plan of care. Physicians Signature Date 03-Aug-2017 Re-Evaluation - PT (1) Result: Comments: See Note; NOTES: [facility] [address] [place] [address]. [address] [place] [address] Fax REEVALUATION / MEDICARE [facility] MR#: [id number] Acct: [id number] Name: HERMINIA NASH Rep #: [id number] : 1950 67 From: Shaunna Buitrago DPT Referring Dr.: Hannah Leos DO Status: REG RCR Insuran ce: [employer] MEDICARE PPO Hannah Leos, It has been my pleasure to treat HERMINIA NASH over the last 16 visits for Left Weakness. Please see the progress note below for an update on the physica l therapy plan of care! Subjective: Patient will continue therapy with EBG for vestibular 1x a week for 4 weeks Objective/Function: Balance is -1 for age. Positional is negative. Pursuit adn saccades a re OK buit VOR gives mild symptoms for short periord of time horizontally. Plan Plan: 1x/week x 4 weeks for vestibular ex progression Goals Goal 1:: Patient will be I with HEP and progression Goal Waldemar e Frame: 4-6 Weeks Goal Progress: Goal Met Goal 2:: Patient will increase her TARIQ score to 41 to become a low fall risk Goal Time Frame: 4-6 Weeks Goal Progress: Goal Met Goal 3:: Patient demo 5/5 stre ngth in LE Goal Time Frame: 4-6 Weeks Goal Progress: Goal Met Goal 4:: Patient will ambulate >300 feet with a normalized gait pattern Goal Time Frame: 4-6 Weeks Goal Progress: Goal Met Goal 5:: VOR 60 sec without symptoms. Goal Time Frame: 2-4 Weeks Goal Progress: NEW GOAL Goal 6:: Pt feel dizzyness 75% improved. Goal Time Frame: 4-6 Weeks Goal Progress: NEW GOAL Anticipated Interventions Pat ient/Client Instruction: Educate patient on: Benefits of Fitness Program For the Purpose of:: To increase tolerance to activity/condition/position Therapeutic Exercise to Include: Strength training, End urance training, Balance training, Body mechanics, Postural training, Gait and locomotor training Comment: vestibular progression For the Purpose of:: Other Other: decrease dizzy Please do not hesitate to contact me at [phone] by phone or if you have questions or concerns regarding this new plan of care! Sincerely, Shaunna Buitrago <Electronically signed by Shaunna Mclain om DPT> 08/03/17 1054 CC: Hannah Leos DO EMILY Signed For Medicare only, by signing this I certify the plan of care. Physicians Signature Date 09-Jul-2017 Re-Evaluation - PT (1) Result: Comments: See Note; NOTES: [facility] [address] [place], [place] [address] Fax [facility]EEVALUATION / [facility] MR#: [id number] Acct: [id number] Name: HERMINIA NASH Rep #: [id number] : 1950 67 From: Shaunna Buitrago DPT Referring Dr.: Hannah Leos DO Status: REG RCR Insuran ce: [employer] MEDICARE PPO Hannah Leos, It has been my pleasure to treat HERMINIA NASH over the last 9 visits for Left Weakness. Please see the progress note below for an update on the physical therapy plan of care! Subjective: Patient reports that her balance is getting better but its not like it should be. Everything just feels slow. Feels like she is tired more easily. Last fall was 2 wee ks ago. Last time she had a seizure was yesterday morning- more a tremor and worked through it. Objective/Function: Posture: FH, RS. Gait: slightly antalgic- increased NATHANIEL. HR/TR: able but requires UE A for balance. SLS: 3 sec then LOB. TARIQ:44/56. ROM: WFL. Strength: 4+/5 throughout Plan Plan: Continue 3x a week for 4 weeks. Goals Goal 1:: Patient will be I with HEP and progression Goal Time Frame: 4-6 Weeks Goal Progress: Progressing Goal 2:: Patient will increase her TARIQ score to 41 to become a low fall risk Goal Time Frame: 4-6 Weeks Goal Progress: Progressing Goal 3:: Patient demo 5/5 streng th in LE Goal Time Frame: 4-6 Weeks Goal Progress: Progressing Goal 4:: Patient will ambulate >300 feet with a normalized gait pattern Goal Time Frame: 4-6 Weeks Goal Progress: Progressing Anti cipated Interventions Patient/Client Instruction: Educate patient on: Benefits of Fitness Program For the Purpose of:: To increase tolerance to activity/condition/position Therapeutic Exercise to Includ e: Strength training, Endurance training, Balance training, Body mechanics, Postural training, Gait and locomotor training Please do not hesitate to contact me at [phone] by phone or Fax: if you have questions or concerns regarding this new plan of care! Sincerely, Shaunna Buitrago <Electronically signed by Shaunna Buitrago DPT> 07/09/17 1252 CC: Hannah Leos DO ELR Signed For Medicare only, by signing this I certify the plan of care. Physicians Signature Date 23-Jun-2017 PT Communication Result: Comments: See Note; NOTES: [facility] [address] [place] [address]. [address] [place] [address] Fax REHABILITATION SERVICES PROGRES S NOTE MR#: [id number] Acct: [id number] Name: HERMINIA NASH Rep #: [id number] : 1950 67 From: Karel Kwong DPT, OCS, CSCS Referring Dr.: Hannah Leos DO Status: REG RCR Insurance: [employer] MEDICARE PPO PT Communication Note 06/15/[address] Hannah Leos , Thank you for the referral of Herminia to [facility] for balance assessment. I have enclosed a copy of the results for y our review. In summation, she scored low on all portions of the Sensory Organization Test. She did well on the Motor Control Test. She scored slightly low on the forward weight shift excursion portion of the Limits of Stability Test. With these results in mind, I plan to add balance exercises to address these deficits to her plan of care. Pleae do not hesitate to call if you have questions. Thank y bonnie. Sincerely, Karel Kwong DPT, OC Contact Information 06/23/17 0741 <Electronically signed by Karel Kwong DPT, OCS, CSCS> Date Karel Varghese DPT, OCS, CSCS Cosigner Signature (if applicable): Date CC: Hannah Leos DO Signed For Med icare only, by signing this I certify the plan of care. Physicians Signature Date 21-Jun-2017 Emergency Department Summary Result: Comments: See Note; NOTES: [facility] Medical Records Department [address] [place] [address] Emergency Department Summary 06/20/17 2105 MR#: [id number] Acct: [id number] Name: HERMINIA NASH Rep #: [id number] : 1950 67 From: Huy Caballero PCP: Hannah Leos DO Status: REG ER ADDENDUM by Huy Pitts on 06/21/17 at 0002 Reported by nursing, patient heart rate now in the 6 0s. I did reevaluate the patient, on the monitor, she notes occasional P waves following QRS waves, however still scattered atrial fibrillation rhythms. I did repeat EKG, currently still atrial fibrilla tion at a rate of 57. Cardizem drip was stopped at this time. On the monitor she is A. fib with occasional PACs. Still asymptomatic. Will relay the hospitalist improving heart rate currently with Cardiz em drip stopped. Date Huy Pitts DO cc: Hannah Leos DO * Signed - ER Visit Summary Date of Service: 06/20/17 Chief Complaint: Seizure History of Present Illness: The patient is a 67 F by EMS for recurrent seizure starting at 7:30 PM this evening. Patient has tremors 2 earlier today. Usually the trigger points however has had other triggers. States only focal tremors of left arm and leg then postictal for 10 minutes. Symptoms last approximately 2 minutes. She has been on Vimpat for the past month followed by Dr. Medina in Neurology. Switch f rom Romainepaulina due to side effects. Seizure since February which occurred on an airplane, after her cruise. Initially reported she was found in the cabin by her friends on the ground. Airplane went to [place] , she is found to have a subdural hematoma with no clear injuries. Since then having intermittent seizures. EEGs have been normal. Denies any recent illness or cough. No vomiting or diarrhea. No urine s ymptoms, however spouse states last admission she was found to have a UTI. No lip or tongue biting. No incontinence of urine or stools. Additional history, spouse states while in [place] patient was on a ventilator for 3 weeks. She was found to be atrial fibrillation, however upon coughing on the ventilator she converted. She was not placed on any medications for treatment for A. fib. No anticoagul ation medicines, likely due to her subdural hematoma. Past medical history: Hypertension, diabetes, hypercholesterolemia, anxiety, osteopenia, focal seizure disorder, subdural hematoma Physical Exam ination: General: Alert and oriented 3, no acute distress HEENT: Normocephalic, atraumatic. Moist mucosa membranes Neck: supple, nontender. Cardiovascular: Irregular tachycardic rate and rhythm, no murm urs Respiratory: Normal breath sounds, symmetric, no distress Abdomen: Soft, nontender, nondistended Extremities: Nontender, no edema, pulses intact 4. moves all 4 extremities Neuro: no focal neurologic al deficits. Test Results: EKG: A. fib rate of 127, no ST or T-wave changes. Normal axis. Emergency Department Course and Treatment: Patient now back to baseline from her seizure. Seizure precautions initiated. However she is in A. fib with RVR with no symptoms. Unclear of how long she has been A. fib. She has transient A. fib episode in February when she was on a ventilator for her seizures. Spontaneo usly converted after a cough. Additional history of antiphospholipid antibody per spouse, she was on Coumadin prior to her event in February with a subdural hematoma. She was taken off of this. She was give n 2 dose of Cardizem IV started on a drip. Labs no potassium 3.7. Hemoglobin 12.6. White count 7. Creatinine 0.75. Urine no significant findings. She was given her night dose of Vimpat. Multiple reevalu ation she is more alert. She remained in A. fib on the monitor rate fluctuating from 100s-110s. I spoke with Dr. Fisher, for admission for persistent A. fib. Treatment Plan: Disposition: Admission Impre ssion: 1. Recurrent A. fib with RVR 2. Breakthrough seizure ED Disposition - Plan for ED Patient: Disposition: [facility] Care [facility] Chief Complaint: Seizure Diagnosis: Atrial fibrillation with RVR , Breakthrough seizure Referrals: Hannah Leos DO [NON-STAFF] - What to do if you have Problems For any increased pain, shortness of breath, bleeding, nausea or vomiting, chest pain, or any une xpected problems, contact your Primary Care Provider. Call [facility] ([phone]) or report to the closest Emergency Room. Call 911 if necessary. 06/20/172321 <Electronically signed by Huy Caballero> Date Huy Caballero Cosigner Signature (If Indicated): Date CC: Hannah Leos DO 20-Jun-2017 Emergency Department Summary Result: Comments: See Note; NOTES: [facility] Medical Records Department [address] [place] [address] Emergency Department Summary 06/20/175 MR#: [id number] Acct: [id number] Name: HERMINIA NASH Rep #: [id number] : 1950 67 From: Huy Caballero PCP: Hannah Leos DO Status: REG ER - ER Visit Summary Date of Service: 06/20/17 Chief Complaint: Seizure History of Present Illness: The patient is a 67 F by EMS for recurrent seizure starting at 7:30 PM this evening. Patient has tremors 2 earlier today. Usually the trigger points however has had other triggers. States only focal tremors of left arm and leg then postictal for 10 minutes. Symptoms last approximately 2 minutes. She has been on Vimpat for the past month followed by Dr. Medina in Neurology. Switch from Keppra d ue to side effects. Seizure since February which occurred on an airplane, after her cruise. Initially reported she was found in the cabin by her friends on the ground. Airplane went to [place], she is fou nd to have a subdural hematoma with no clear injuries. Since then having intermittent seizures. EEGs have been normal. Denies any recent illness or cough. No vomiting or diarrhea. No urine symptoms, how ever spouse states last admission she was found to have a UTI. No lip or tongue biting. No incontinence of urine or stools. Additional history, spouse states while in [place] patient was on a ventila tor for 3 weeks. She was found to be atrial fibrillation, however upon coughing on the ventilator she converted. She was not placed on any medications for treatment for A. fib. No anticoagulation medici bambi, likely due to her subdural hematoma. Past medical history: Hypertension, diabetes, hypercholesterolemia, anxiety, osteopenia, focal seizure disorder, subdural hematoma Physical Examination: Gen eral: Alert and oriented 3, no acute distress HEENT: Normocephalic, atraumatic. Moist mucosa membranes Neck: supple, nontender. Cardiovascular: Irregular tachycardic rate and rhythm, no murmurs Respirat ory: Normal breath sounds, symmetric, no distress Abdomen: Soft, nontender, nondistended Extremities: Nontender, no edema, pulses intact 4. moves all 4 extremities Neuro: no focal neurological deficits. Test Results: EKG: A. fib rate of 127, no ST or T-wave changes. Normal axis. Emergency Department Course and Treatment: Patient now back to baseline from her seizure. Seizure precautions initiated. However she is in A. fib with RVR with no symptoms. Unclear of how long she has been A. fib. She has transient A. fib episode in February when she was on a ventilator for her seizures. Spontaneously convert ed after a cough. Additional history of antiphospholipid antibody per spouse, she was on Coumadin prior to her event in February with a subdural hematoma. She was taken off of this. She was given 2 dose of Cardizem IV started on a drip. Labs no potassium 3.7. Hemoglobin 12.6. White count 7. Creatinine 0.75. Urine no significant findings. She was given her night dose of Vimpat. Multiple reevaluation she is more alert. She remained in A. fib on the monitor rate fluctuating from 100s- 110s. I spoke with Dr. Fisher, for admission for persistent A. fib. Treatment Plan: Disposition: Admission Impression: 1. Re current A. fib with RVR 2. Breakthrough seizure ED Disposition - Plan for ED Patient: Disposition: Acute Care [facility] Chief Complaint: Seizure Diagnosis: Atrial fibrillation with RVR, Isela gh seizure Referrals: Hannah Leos, [NON-STAFF] - What to do if you have Problems For any increased pain, shortness of breath, bleeding, nausea or vomiting, chest pain, or any unexpected prob lems, contact your Primary Care Provider. Call [facility] ([phone]) or report to the closest Emergency Room. Call 911 if necessary. 06/20/172321 <Electronically signed by Huy Spear> Date Huy Caballero Cosigner Signature (If Indicated): Date CC: Hannah Leos DO 20-Jun-2017 Chest 1 View (Portable) Result: Comments: See Note; NOTES: [facility] Imaging Services [address] [place] [address] Chest 1 View (Portable) MR#: [id number] Acct: [id number] Name: HERMINIA NASH Rep #: [id number] : 1950 F 67 From: Stef Wong MD PCP: Hannah Leos DO Status: REG ER Study: Chest 1 View (Portable) Date of Exam: 06/20/17 Exam# [id number] Ordering Dr: Huy Pitts DO STUDY: X-RAY CH EST REASON FOR EXAM: Female, 67 years old. Atrial fibrillation TECHNIQUE: Single AP portable view of the chest. COMPARISON: April 08, 2017 FINDINGS: There is mi ld interstitial edema which appears increased. There is no demonstrated pleural abnormality. Normal size heart. Normal mediastinum and jannette. Normal visualized pulmonary arteries. Normal visualized aort ic arch and descending thoracic aorta. Normal visualized thoracic spine. Normal visualized ribs, clavicles, and shoulders. There is no demonstrated abnormality of the visualized soft tissue structures of the upper abdomen. RAD/Chest 1 View (Portable) IMPRESSION: Mild edema increased Electronically Signed: Stef Wong MD at 21:49 EDT , Service support , CC: Hannah Leos DO; Huy Pitts Tabular Typist: Signed 02-Jun-2017 SCREENING MAMM (CAD), BILAT Result: Comments: See Note; NOTES: [facility] Imaging Services [address] [place] [id number] SCREENING MAMM (CAD), BILAT MR#: [id number] Acct: [id number] Name: HERMINIA NASH Rep #: [id number] : 1950 F 67 From: Martha Delgado MD PCP: Hannah Leos DO Status: REG CLI Study: SCREENING MAMM (CAD), BILAT Date of Exam: 06/02/17 Exam# [id number] Ordering Dr: Hannah Leos DO MAMMOGRAPHY - BILATERAL SCREENING REASON FOR EXAM: Female, 67 years old. Routine annual screening examination. PERTINENT HISTORY: NO FM HX, LOST 20 #, BILAT EXC BX'S IN 1994, 2 RT HEMANGIOMAS MARKED TECHNIQUE: Digital bilateral breast neha (3D mammographic acquisition) in the CC and MLO projections. 2-D mediolateral oblique (MLO) and craniocaudad (CC) views of both breasts were obtained. CAD: Ful l Field Digital Mammography with Computer Added Detection was performed. COMPARISON: Oct 22 2015 3:58pm . Jul 29 2012 11:47a FINDINGS: Breast Composition: There ar e scattered areas of fibroglandular density. There are no dominant masses or suspicious calcifications. No other significant abnormalities are identified. ORDER # : [id number] HPBI/SCREENING MAMM (CAD), BILAT IMPRESSION: Stable bilateral screening mammogram. Yearly follow-up mammogram recommended. (A) ASSESSMENT CATEGORY: BIRA DS Category 2: Benign. A letter regarding these results will be sent to the patient by the facility within 30 days. Approximately 10% of breast cancers are not detected by mammography. A normal mammogr am should not delay biopsy of a clinically suspicious abnormality. [id number] Electronically Signed: Martha Delgado MD at 15:16 EDT Tel , Service support , Fax CC: Hannah Leos DO Tabular Typist: Signed 27-May-2017 Inital Evaluation (1) - PT Result: Comments: See Note; NOTES: [facility] Physical Therapy [address] [place] [address] Fax REHABILITATION SERVICES INITIAL EVALUATION MR#: [id number] Acct: [id number] Name: HERMINIA NASH Rep #: [id number] : 1950 67 From: Shaunna Buitrago DPT Referring Dr.: Hannah Leos DO Status: REG RCR Insurance: [employer] MED ICARE PPO Patient's Visit Information HERMINIA NASH is a 67 year old F referred to Physical Therapy by Hannah Leos with a diagnosis of Left Weakness. Date of Evaluation: 05/27/17 Physical The rapist: Shaunna Buitrago - Visit Plan Frequency: 2x /Week Duration: 4 Weeks Plan: Caution Seizures. Balance Assessment and then 2x a week for 4 weeks - Subjective Subjective: Patient attends PT jozef murcia with her - she was on a cruise in the begining of February- fell out of bed. She noticed no symptoms until she was on a plane back to [place]. She had a seizure on the plane- they made an emergency landing in [place] and she spent 10 days in the ICU. Her drove to [place] and drove her back due to her not being able to fly. She has had a Speech and OT evaluation which have both dischar ged her. When she was leaving OT last she had a seizure- they called 911 and patient was taken to the hospital. She had another seizure in the ER. She was put on a new seizure medication which seems to be helping. Her aura is that the left side of her face feels tingling and numb- she asked us to lay her down and keep her from hurting herself and she will come out of it. Her will be a t all apts with her. They live in a one story home with no stairs to get in. She has help as needed. 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 She is [place] ng to get back to these things quickly. She has no pain in the LE. Balance has always been somewhat of an issue but its worse now. No N/T in the LE. Sleep is not disturbed. PMHx: seizures, brain bleed, DM, HTN. Meds: see list - Objective Posture: FH, RS, increased kyphosis. Gait: slow michael- slightly antalgic- no AD but does hold onto husbands arm- mild sway and staggering with head movements. Stai rs: asc/desc 8- asc: recip with 1 HR Desc: does them one step at a time but can do them recip with verbal cues- pt hesitant. HR/TR: able without incidence. TARIQ/56 medium fall risk. ROM:WFL . Strength: Ankle: 5/5, Knee: 5/5, Hip: 4+/5 Core: fair - Goals Goal 1:: Patient will be I with HEP and progression Goal Time Frame: 4-6 Weeks Goal 2:: Patient will increase her TARIQ score to 41 to bec ome a low fall risk Goal Time Frame: 4-6 Weeks Goal 3:: Patient demo 5/5 strength in LE Goal Time Frame: 4-6 Weeks Goal 4:: Patient will ambulate >300 feet with a normalized gait pattern Goal Ti me Frame: 4-6 Weeks - Rehabilitation Potential Physical Therapy Diagnosis: Patient presents with hypomobility -she has decreased strenth and poor balance leading to decreased ability to perform ADL's. Rehabilitation Potential: Good - Anticipated Interventions Patient/Client Instruction: Educate patient on: Benefits of Fitness Program For the Purpose of:: To increase tolerance to activity/condition/p osition Therapeutic Exercise to Include: Strength training, Endurance training, Balance training, Body mechanics, Postural training, Gait and locomotor training Thank you for the opportunity to eval uate your patient. For Medicare and Medicare HMO plans, please review the plan of care and approve it. It will need to be FAXED BACK to us at [phone] for Medicare purposes. Please let me know if there are questions or concerns regarding this plan of care. Physician Signature: Date: <Electronically signed by Shaunna Barragan PT> 05/27/17 1058 CC: Hannah Leos DO ELR Signed For Medicare only, by signing this I certify the plan of care. Physicians Signature Date 21-May-2017 OT D/C Summary Result: Comments: See Note; NOTES: [facility] Occupational Therapy [facility] [address] [place] [address] Fax REHABILITATION SERVICES DIS CHARGE SUMMARY MR#: [id number] Acct: [id number] Name: HERMINIA NASH Rep #: [id number] : 1950 67 From: Deyanira Crockett Referring Dr.: Hannah Leos DO Status: REG RCR Eval Date: Discha rge Date: HP - OT D/C Summary It has been my pleasure to treat HERMINIA NASH under orders from Hannah Leos, for the diagnosis of Cerebral Hemorrhage for a total of 5 visit(s). Please see the following information for a summary of their discharge status. - Objective Objective/Function: Pt. reassessment completed. Pt. ROM is WFL. Pt. strength measurments are as follows; horse doctor R 52, L 44; lat eral R 7, L 7; three jaw R 5, L 6; tip pinch R 8, L 7. Pt. completed 9 hole peg test and scores on R had 28.25 s, and L hand 28.52 seconds. She has regressed from inital evaluation which is believe to b e from uncontrolled seizure disorder. She has HEP to complete for further progress of hand strength. She is mod I in all ADl/IADls but is consistently limited by seizures. - Goals Patient Goals: Regain Strength, Decrease Pain, Improve Fine Motor Skills, Use Hand/Wrist/Arm Normally Again, Decrease Tingling/Numbness, Increase ROM, Be More Independent in ADLS, Improve Visual/Perceptual Skills, Resume Ho bbies Goal:: Pt. to increase L horse doctor by 20 lbs to promote increase horse doctor strength for ADl/AIDls and manipualtion of bilateral coordiantion tasks by time of d/c. Goal:: Pt. to be increase L hand finger dex erity through FMC and finger isolation tasks as measured through decreased time on 9 hole pegboard test 2/3 trials 75% of the time to increase (I0 and decrease need for assistance by time of d/c. Goal:: Pt. to be mod I to complete sensory reintegration program at home and in therapy 80% of the time to promote return of touch sensation into L hand to promote bilateral and in hand manipulation skills ne eded for ADL/IADLs and return to FO by time of d/c. Goal:: Pt. to be mod I to complete visualmotor skills to find all cones/ objects places in therapy activities during fx tasks for 4/5 traisl 80% of the time to increase (i) and decrease need for assistance. Goal:: Pt. to be mod I to complete fasteners with a/e as needed 4/5 trials 80% of the time to promote increased (I) and decreased need for assi stance by time of d/c. Goal:: Pt. to be mod I for kicthen safety and kitchen mobility tasks 4/5 trials 80% of the time to promote increasing (I) with cooking and returning to PLOF by time of d/c. - Duncan n Plan: Pt. to be d/c'd today. She verbalized understanding of continuing HEP with putty and sensory reintegration tasks as she noted she continued to drop items. She is mod I for HEP and is to continue program at home. She is to return if she has change in status but biggest limtiation is seizures at this time and further medial attention is recommended at this time. - D/C Information If there are q uestions or concerns regarding this patient's occupational therapy, please fell free to call me at [phone]. Thank you for the referral of this patient. Sincerely, Deyanira Crockett <Ana Maria ctronically signed by Deyanira Crockett > 05/21/17 1121 CC: Hannah Leos DO KMB Signed 20-May-2017 Emergency Department Summary Result: Comments: See Note; NOTES: [facility] Medical Records Department [address] [place] [address] Emergency Department Summary 05/20/17 1638 MR#: [id number] Acct: [id number] Name: HERMINIA NASH Rep #: [id number] : 1950 67 From: Juan Mendiola MD PCP: Hannah Leos DO Status: REG ER - ER Visit Summary Date of Service: 05/20/17 Chief Complaint: Brought to the ER by ambul ance after seizure. states this was different than prior. He reports she had twitching initially left side of her face followed by her right arm extending and then total body tonic-clonic activi ty. History of Present Illness: The patient is a 67 F history of seizure disorder status post traumatic brain injury i.e. subdural hematoma. She also had history of hypertensive emergency with CHF. Her neurologist Dr. Medina. She had a 24-hour monitoring which revealed no seizure activity. Neurologist was entertaining possibility of stress induced seizures i.e. nonconvulsive motor activity. Patient is unresponsive; however, while I was talking to her able to detect that she was looking at the person with speaking. When I slap my hand for a startle response and she opened her eyes and began t o talk. She was not disoriented. Since she is diabetic and does have history of medical problems a BMP will be obtained. Physical Examination: Vital signs are unremarkable. Question of whether patient did or did not have a seizure. Spoke with regarding seizures and stated doctors were entertaining possibility of stress related. While I was talking to him regarding the cause of her seizure niranjan reagan had a tonic-clonic seizure that was witnessed by me. Her eyes were deviated to the right. She bit her tongue. She became cyanotic. Initial exam revealed no abnormality. Head is atraumatic normocephal ic. Pupils are equal round reactive. Extraocular muscles are intact. TMs are pearly white with landmarks noted. Nares patent with no drainage. Posterior pharynx without erythema or exudate. Uvula is mid line. There is no dysphonia or dysphasia. Trachea is midline. There is no stridor with auscultation of the neck. Lungs are clear to auscultation with good movement of air bilaterally. There is no egopho ny. Breath sounds are symmetric. Heart is regular with a normal S1 and S2. There is no murmur, gallop or rub. Patient is alert and oriented 3. Motor is 5 over 5. Sensory is intact. DTRs are symmetric wi th no clonus or Babinski sign. Cranial 2 through 12 are intact. Cerebellar testing is normal. Patient is postictal after witnessed tonic-clonic seizure. A CT of the head was obtained because of her his tory of prior bleed. After discussion with pharmacist she was loaded with [employer]. Case was discussed with Dr. Schaffer after her witnessed seizure. At the time of this dictation 1642 she remains postict al. Test Results: Electrode panel results sodium 132 which is insignificant. CO2 is 20 and consistent with someone having a seizure 1-2 hours prior to arrival. Glucose is 154. CT of the head into radio logist as no acute process. Emergency Department Course and Treatment: Actually panel was obtained since she is diabetic and she received 1 g of Keppra IV piggyback since she has had more than one seiz ure that was witnessed. Treatment Plan: Admission to the hospital for further testing including EEG Disposition: Admission was seizure precaution and further monitoring testing Impression: Multiple r ecurrent seizures History of traumatic brain injury, subdural hematoma 3. History of hypertension ED Disposition - Plan for ED Patient: Chief Complaint: Seizure Referrals: Hannah Leos DO [Primar y Care Provider] - What to do if you have Problems For any increased pain, shortness of breath, bleeding, nausea or vomiting, chest pain, or any unexpected problems, contact your Primary Care Provid er. Call [facility] ([phone]) or report to the closest Emergency Room. Call 911 if necessary. 05/20/17 1644 <Electronically signed by Juan Mendiola MD> Date Juan Mendiola MD Cosigner Signature (If Indicated): Date CC: Hannah Leos DO; Armando Schaffer MD 20-May-2017 Brain/Head without Contrast Result: Comments: See Note; NOTES: [facility] Imaging Services [address] [place] [address] Brain/Head without Contrast MR#: [id number] Acct: [id number] Name: HERMINIA NASH Rep #: [id number] : 1950 F 67 From: Paresh Kebede MD PCP: Hannah Leos DO Status: REG ER Study: Brain/Head without Contrast Date of Exam: 05/20/17 Exam# [id number] Ordering Dr: Juan Mendiola MD STUDY: CT BRAIN WITHOUT CONTRAST REASON FOR EXAM: Female, 67 years old. Multiple seizures. RADIATION DOSAGE (If Supplied By Facility): CTDIvol = ( 44.99 ) mGy, DLP = ( 745.49 ) mGycm TECHNIQUE: Trans axial CT imaging of the brain was performed without administration of intravenous contrast material. Individualized dose optimization techniques were used for this CT. COMPARISON: Comparison is made w ith prior study dated April 16, 2017. FINDINGS: Normal soft tissue structures. Normal calvarium. Normal size ventricles and extra-axial spaces for the patient's ag e. Normal white matter tracts of the cerebral hemispheres. Normal basal ganglia and thalami. Normal brainstem. Normal cerebellum. There is no intracranial hemorrhage. There are no findings of an acute ischemic infarction. Normal visualized paranasal sinuses. CT/Brain/Head without Contrast IMPRESSION: Normal unenhanced CT scan of the brain. El ectronically Signed: Paresh Kebede MD at 16:07 EDT Tel [phone], Service support , CC: Hannah Leos DO; Juan Mendiola MD Tabular Typist: Signed 21-Apr-2017 Brain without Contrast Result: Comments: See Note; NOTES: [facility] Imaging Services [address] [place] [address] Brain without Contrast MR#: [id number] Acct: [id number] Name: HERMINIA NASH Rep #: [id number] : 1950 F 67 From: Martha Delgado MD PCP: Hannah Leos DO Status: REG CLI Study: Brain without Contrast Date of Exam: 04/21/17 Exam# [id number] Ordering Dr: Manjinder Turpin MD STUDY: MRI B RAIN WITHOUT CONTRAST REASON FOR EXAM: Female, 67 years old. LT WEAKNESS,LT FACIAL NUMBNESS, LT FINGER NUMBNESS, HX RECENT BLEED 03/16/17 TECHNIQUE: Standardized multiplanar fat and water weighted puls e sequences were obtained. COMPARISON: None. FINDINGS: Normal size of the ventricles and extra-axial spaces for the patient's age. There are a limited number of sma ll white matter hyperintensities, distributed throughout the deep white matter tracts of the cerebral hemispheres, consistent with mild chronic white matter ischemic changes. Normal bilateral basal francie glia. Normal thalami. There is small subdural hematoma in the right temporal region and right parietal region measuring 3 mm in maximum thickness. Normal flow voids within the major intracranial circul ation suggesting patency by spin echo criteria. Normal sella turcica, pituitary gland, infundibular stalk, optic chiasm and hypothalamus. Normal tectal plate and pineal gland. Normal midbrain, millie an d medulla. Normal cerebellum. Normal basal cisterns. Normal bilateral temporal bones. Normal bilateral internal auditory canals. No demonstrated orbital abnormality, within the constraints of a routine brain study. There is mucoperiosteal inflammatory disease of the paranasal sinuses consistent with mild chronic sinusitis. There is a mucosal retention cyst in the right maxillary sinus measures 2 cm. There is mucosal thickening in the mastoid air cells bilaterally. Normal calvarium and skull base. Normal visualized soft tissue structures. Normal visualized upper cervical spine. MRI/Brain without Contrast IMPRESSION: Involutional changes of the brain, as described above. There is small subdural hematoma in the right temporal region and right parietal region measuring 3 mm in maximum thickness. N.B. : The above information has been verbally conveyed by Martha Delgado MD to Manjinder Turpin, [facility] Physician, on 04/21/2017 16:04:47 (ET). Elect ronically Signed: Martha Delgado MD at 16:04 EDT Tel , Service support , N.B. : The above information has been verbally conveyed by Martha Delgado MD to Manjinder Turpin, Covering Physician, on 04/21/2017 16:04:47 (ET). CC: Manjinder Turpin; Hannah Leos DO Tabular Typist: Signed 21-Apr-2017 OT General Evaluation Result: Comments: See Note; NOTES: [facility] Occupational Therapy [facility] [address] [place] [address] Fax REHABILITATION SERVICES INI TIAL EVALUATION MR#: [id number] Acct: [id number] Name: HERMINIA NASH Rep #: [id number] : 1950 67 From: Deyanira Crockett Referring Dr.: Hannah Leos DO Status: REG RCR Insurance: [employer] MEDICARE PPO Eval Date: Patient's Visit Information HERMINIA NASH is a 67 year old F, referred to Occupational Therapy by Hannah Leso,, with a diagnosis of Cerebral Hemorrhage. Date of Eval uation: 04/20/17 Occupational Therapist: Deyanira Crockett - Subjective Subjective: Pt., Herminia, noted her main symptom is numbness and L sided weakness. present for begining and end of brian. He noted that Herminia was on cruise with friend when she fell trying to get into bed. Herminia noted that she was able to get into bed and noted no symptoms until the flight home. The fall that a ppeared to cause the bleed occured February,. Once in air, Pt. started siezure on plane, the medics called to plane after landing in [place]. Family drove out to [place]. She was intubated wit h trach tube and other lines. She noted when sedated she pulled trach out which has left her with hoarse voice. She spend 10 days in ICU according to , was moved out and then driven home to [place] from [place]. She has not had seizures for a few weeks and notes she is feeling pretty good. She noted she has h/o TIA a few years ago in which she has experience L sided neglect. - Objective Objective/Observation: Pt. appeared with ROM in BUE WFL. Pt. presents with L sided weakness. 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 Pt. seizure occured during session. Lasted 2 mins and then subsided w ith medication. No loss of conciousness or movement. Pt. able to walk with out of session. - ROM Shoulder: WFL Elbow: WFL Forearm: WFL Wrist: WFL MP: WFL PIP: WFL DIP: WFL - Strength Shoulder: R 4+/5, L 4-/5 Elbow: R 4+/5, L 4-/5 Lockstitch Collar Setter: R 70 L 49 Lateral Pinch: R 8 L 8 Tripod Pinch: R 10 L 8 Tip-to-Tip Pinch: R 6, L 4 - Sensation Thumb: R 2.83, L 4.08 Index: R 2.83, L 4.17 Middle: R 2.83, L 3.08 Ring: R 2.83, L 2.83 Little: R 2.83, L 3.22 Kinesthesia: Normal - Right, Abnormal - Left Sensation Comments: 2.83 is normal, and 3.22-3.61 are indicative of decreased light touch, and 3.84-4.31 ind icates dimished protective sensation. - Visual/Perceptual Skills Left Neglect: Yes - from previous TIA per Pt. report Comments: Vision screen completed. Pt. is unable to complete covergence at this waldemar e. Tracking difficulties in R lower quadrant. MVPT used to help further test visual ability. The MVPT continuing to be administered. Breaks initalized during MVPT and Pt. stated she wanted to g et it done. However, entering into 3rd section she seemed to have siezure. Seizure symptoms including holding face and closing eyes. present and he adminstered medication. She was able to take water and swallow medication. She had 1x cough but no choking. noted seizures have not occured in a few weeks but that she has been self- medicating as she is feeling be tter and did not take her seizure medications this morning. Pt. did not show signs of convulsions or loss of conciousness. She did note she did not feel well after the sieiure and sess ion was terminated after seizure. She had already recieved ST prior to OT. PT was canceled after siezure occured. Pt. able to walk put of session with 's help. OT followed up to door to ensure sa fety. Family to call in to [facility] follow-up appointments. Varbalized undertsanding and to continue to monitor symptoms to see if further medical attention is needed. - Cognitive Skills Follows Direct ions: Yes Oriented to (Check all that apply): Place - Nine Hole Peg Right: 24.78 s Left: 38.56 s Comments: increased difficulty on L side. - DASH-Disabilities of Arm, Shoulder AND Hand DASH Sum: 90 - Goals Goal:: Pt. to increase L horse doctor by 20 lbs to promote increase horse doctor strength for ADl/AIDls and manipualtion of bilateral coordiantion tasks by time of d/c. Goal:: Pt. to be increase L hand finger de xerity through FMC and finger isolation tasks as measured through decreased time on 9 hole pegboard test 2/3 trials 75% of the time to increase (I0 and decrease need for assistance by time of d/c. Goal: : Pt. to be mod I to complete sensory reintegration program at home and in therapy 80% of the time to promote return of touch sensation into L hand to promote bilateral and in hand manipulation skills n eeded for ADL/IADLs and return to PLFO by time of d/c. Goal:: Pt. to be mod I to complete visualmotor skills to find all cones/ objects places in therapy activities during fx tasks for 4/5 traisl 80% of the time to increase (i) and decrease need for assistance. Goal:: Pt. to be mod I to complete fasteners with a/e as needed 4/5 trials 80% of the time to promote increased (I) and decreased need for ass istance by time of d/c. Goal:: Pt. to be mod I for kicthen safety and kitchen mobility tasks 4/5 trials 80% of the time to promote increasing (I) with cooking and returning to PLOF by time of d/c. - Re habilitation General Assessment: Pt., Herminia, is s/p cerebral hemorrhage occuring in March 15, 2017. She was referred to outpatient OT services for continued treatment. Upon arrived Pt. had any seizu res during past couple of weeks. A vision screen completed which indicated some visual deficits for tracking and covergence. Additionally, she exhibits tracking difficulties in R lower quadrant. MVPT ad minsitered to help further test vision ability. Breaks initalized during MVPT and Pt. stated she "wanted to get it done. However, entering into 3rd section she appeared to have siezure. present during seizure. Seizure symptoms included holding face and closing eyes. he adminstered medication. He noted seizures have not occured in back few weeks but that she has been &am p;#34;self-medicating as she is feeling better and did not take her seizure medications this morning. Seizure occured at end of session and after ST session was completed. Pt. did not exhibit l oss of conciousness or unintended movements. The increased activity and combination of not taking medication seems to have increased stimulation of the brain. Please refer to Vision se ction for additional details. The seizure occured at end of session and no harm to patient occured. Previous measurments taken during the session indicated ROM is WFL of B UE. She exhibits decreased str ength on L UE and decrease finger dexterity and sensation on L hand. Decreased sensation indicated of decreased protective sensation on some fingers. She notes decreased ability to completed ADLs of man ipulation of fasteners and IADL as well as leisure interest of cooking tasks and would like to be able to chop vegetables again. Rehabilitation Potential: Good - Anticipated Intervent ions Anticipated Interventions: A/AAROM/PROM, Strengthening, Sensory Retraining, Modalities, Joint Protection/Energy Conservation, Fine Motor Coord/Smooth, Neuro Reeducation, Visual/Perceptual Skills, C ognitive Skills, ADL Training, Caregiver Training, Home Program - Visit Plan Frequency: 2x /Week Duration: 4-6 Weeks General Plan: Pt. to be seen by OT to increase LUE strength and cordiantion, FMC and dexterity, sensory reintegration training, ability to cross midline, promoting participation and increased (I) in ADl/IADLs, safety training for ADl/IADls, and visualmotor ability to promote safety in multiple environments to increase (i) and return to PLOF. TEXT: Thank you for the opportunity to evaluate your patient. For Medicare and Medicare HMO plans, please review the plan of care and appro ve it. It will need to be FAXED BACK to us at [phone] for Medicare purposes. Please let me know if there are questions or concerns regarding this plan of care. Physician Signature: Date: <Electronically signed by Deyanira Crockett > 04/21/17 0921 CC: Hannah Leos DO KMB Signed For Medicare only, by signing this I certify the plan of care. Physicians Signature Date 20-Apr-2017 Adult Evaluation - SP Result: Comments: See Note; NOTES: [facility] Speech Pathology [facility] [address] [place], [place] [id number] Fax REHABILITATION SERVICES INITIAL EVALUATION MR#: [id number] Acct: [id number] Name: HERMINIA NASH Rep #: [id number] : 1950 67 From: Aries Dan M.A., CCC-PAINT ROLLER COVER MACHINE SETTER Referring Dr.: Hannah Leos DO Status: REG RCR Insurance : [employer] MEDICARE PPO History - History Date of Eval: 04/20/17 Date of Onset of Diagnosis: February 2017 Previous speech therapy: Yes Results: Good improvement in skills. Other Relevant Medical History /Diagnoses/Surgery: Allergic Rhinitis, hypertension, type two diabetes, antiphospholipid abtibody syndrome, past TIA. 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 Right Hearing Abillity: Normal Left Hearing Abillity: Normal Visual Assistive Devices: Glasses Pa tients Living Arrangements: With Significant Other Patient Allergies - Allergies Allergies quinine Adverse Reaction (Verified 04/08/17 06:35) Unknown Sulfa (Sulfonamide Antibiotics) Adverse Reaction (Verified 04/08/17 06:35) Unknown Subjective Oral Motor - Comments Comments: reported that there is no change in articulation. She has a mildly hoarse voice due to tramatic extubations. CLQ T - CLQT CLQT Administered: Yes CLQT: Cognitive Linguistic Quick Test (CLQT) is a criterion - referenced assessment designed for adults between the ages of 18 and 89 with known or suspected neurologica l dysfuntions. The CLQT is to assess strength and weaknesses in five cognitive domains. Severity ratings are within normal limits, mild, moderate, severe deficits. The subtests are as follows: Date: - Attention Attention: WNL - Memory Memory: WNL - Executive Functions Executive Functions: WNL - Language Language: WNL - Visuospatial Skills Visuospatial Skills: WNL - Composite Severity Ra ting Composite Severity Rating: WNL - CLQT Comments Conclusion The patient's skills are within normal limits. Her reported that she is completing her own medications and money management. He reported that her skills have increased since her discharge from rehab stay which was only 3 days. She frequently commented that testing items were silly but still completed them with cues. Her reports only deficits at home remain with use of left hand. No further speech therapy is necessary. Plan - Plan Plan: No further skilled speech therapy is necessary. - Recommendations Treatment Shell anted: No Education - Patient has Indicated that the Following Identified Educational Needs: None The Patient has indicated that they have no educational or learning abilities that may effect their ca re.: Yes - Patient Instruction Patient Education: Diagnosis, Treatment Plan Person Taught: Patient, Family Teaching Method: Discussion Response to teaching: Verbalize understanding <Electronic ally signed by Aries Dan M.A. [facility]-PA[employer] ROLL[employer] COVER MACHINE SETTER> 04/20/17 1418 CC: Hannah Leos DO YASSINE Signed For Medicare only, by signing this I certify the plan of care. ____ Physicians Signature Date 16-Apr-2017 Brain/Head without Contrast Result: Comments: See Note; NOTES: [facility] Imaging Services [address] [place] [address] [place] [address] Brain/Head without Contrast MR#: [id number] Acct: [id number] Name: HERMINIA NASH Rep #: [id number] : 1950 F 67 From: Paresh Kebede MD PCP: Hannah Leos DO Status: REG CLI Study: Brain/Head without Contrast Date of Exam: 04/16/17 Exam# [id number] Ordering Dr: Ramiro Leos DO STUDY: CT BRAIN WITHOUT CONTRAST REASON FOR EXAM: Female, 67 years old. History of cerebral hemorrhage. This is a follow-up examination. RADIATION DOSAGE (If Supplied By Facility): CTDIvol = ( 44.99 ) mGy, DLP = ( 779.24 ) mGycm TECHNIQUE: Transaxial CT imaging of the brain was performed without administration of intravenous contrast material. Individualized dose optimization techniques wer e used for this CT. COMPARISON: Comparison is made with prior study April 08, 2017. FINDINGS: Normal soft tissue structures. Normal calvarium. Normal size ventric les and extra-axial spaces for the patient's age. Focal area of encephalomalacia in the right temporal parietal lobe. This is in keeping with the prior ischemic change. Normal basal ganglia and thalami. Normal brainstem. Normal cerebellum. There is no intracranial hemorrhage. There are no findings of an acute ischemic infarction. Focal nodular mucosal thickening along the medial wall of the right ma xillary sinus. CT/Brain/Head without Contrast IMPRESSION: Focal area of consolidation seen in the right temporal parietal lobe. No acute hemorrha ge is seen. Electronically Signed: Paresh Kebede MD at 15:34 EDT Tel [phone], Service support , CC: Hnanah Leos DO Tabular Typist: Signed 08-Apr-2017 Emergency Department Summary Result: Comments: See Note; NOTES: [facility] Medical Records Department [address] [place] [id number] Emergency Department Summary 04/08/17 0711 MR#: [id number] Acct: [id number] Name: HERMINIA NASH Rep #: [id number] : 1950 67 From: Martin Rodriguez MD PCP: Hannah Leos DO Status: REG ER - ER Visit Summary Date of Service: 04/08/17 Chief Complaint: Change of mental stat us History of Present Illness: The patient is a 67 F presenting with secondary to an acute change in mental status. Patient has a history of antiphospholipid syndrome and typically was chronica lly anticoagulated. Approximately a month ago she suffered a spontaneous intracranial hemorrhage and was actually hospitalized in [place]. Apparently the patient is still in recovery for this and is o n antiepileptic medications. Approximately 2 hours prior to arrival her states that she had a acute change in mental status where she seemed confused and was shaking. She was still able to talk and still able to follow commands, but this was very concerning to him so he brought her to the emergency department. The patient is no longer on any anticoagulation due to her intracranial hemorrhage, there is been no recent head injuries, no recent illnesses, and review of systems through is otherwise negative. Physical Examination: Vital signs are notable for a initial blood pressure 199/1 53. Well-nourished age-appropriate female tremulous, but otherwise not in acute physiologic distress. Head normocephalic atraumatic. PRL. Moist mucous membranes. Heart regular rate and rhythm. Lungs vahe nds clear to auscultation bilaterally. Abdomen soft nontender. Back nontender. Extremities nontender nonedematous. No skin rashes noted. Patient was alert and oriented 3, she was able to stand and move her upper and lower extremities equally with equal strength and normal sensation over both. Patient is able to both ask and answer questions and exhibits no a aphasia. NIH stroke scale was found to be 0 . Test Results: CT head negative, chest x-ray underpenetrated but no acute disease. EKG showed sinus rhythm 66 with nonspecific T-wave flattening. CBC chemistry liver urinalysis and troponin were all w ithin normal limits Emergency Department Course and Treatment: Patient presented secondary to undifferentiated altered mental status. She was speaking, was moving all extremities, and did not have any lateralizing signs that would make me concerned for stroke so stroke team was not activated. Patient was immediately taken to CT and did not find any evidence of intracranial hemorrhage. Broader workup was obtained at that time to find for reasons for the patient to have altered mental status. She was treated with Ativan and labetalol given her elevated blood pressure. Workup was found to be negative, the patient had improvement of her blood pressure and some improvement of her symptomatology although she remains tremulous on reexam at 7:00. At this point, the patient potentially is having hypertens lucina encephalopathy versus other cause for change in mental status potentially psychiatric but I still believe that the patient requires admission at this time. I discussed this with the hospitalist and patient will be admitted. Disposition: Admission Impression: [1. Hypertensive encephalopathy] ED Disposition - Plan for ED Patient: Chief Complaint: Alt LOC Referrals: Hannah Leos DO [Primary Care Provider] - What to do if you have Problems For any increased pain, shortness of breath, bleeding, nausea or vomiting, chest pain, or any unexpected problems, contact your Primary Care Provide r. Call [facility] ([phone]) or report to the closest Emergency Room. Call 911 if necessary. 04/08/17 0743 <Electronically signed by Martin Rodriguez MD> Date ____ Martin Rodriguez MD Cosigner Signature (If Indicated): Date CC: Hannah Leos DO 08-Apr-2017 Chest 1 View (Portable) Result: Comments: See Note; NOTES: [facility] Imaging Services [address] [place] [id number] Chest 1 View (Portable) MR#: [id number] Acct: [id number] Name: HERMINIA NASH Rep #: [id number] : 1950 F 67 From: Ady Steele MD PCP: Hannah Leos DO Status: REG ER Study: Chest 1 View (Portable) Date of Exam: 04/08/17 Exam# [id number] Ordering Dr: Martin Rodriguez MD STUD Y: X-RAY CHEST REASON FOR EXAM: Female, 67 years old. Cough TECHNIQUE: Single frontal view of the chest. COMPARISON: None. FINDINGS: Left basilar alveolar diseas e, atelectasis, and pleural fluid. Prominent cardiac silhouette. Normal mediastinum and jannette. Normal visualized pulmonary arteries. There is atherosclerotic tortuosity of the aortic arch and descending thoracic aorta. Normal visualized thoracic spine. Normal visualized ribs, clavicles, and shoulders. There is no demonstrated abnormality of the visualized soft tissue structures of the upper abdomen. RAD/Chest 1 View (Portable) IMPRESSION: Left basilar alveolar disease, atelectasis, and pleural fluid. Electronically Signed: Ady Steele , at 7:11 EDT Tel , Service support , CC: Hannah Leos DO; Martin Rodriguez Tabular Typist: Signed 08-Apr-2017 Brain/Head without Contrast Result: Comments: See Note; NOTES: [facility] Imaging Services [address] [place] [address] Brain/Head without Contrast MR#: [id number] Acct: [id number] Name: HERMINIA NASH Rep #: [id number] : 1950 F 67 From: Ady Steele MD PCP: Hannah Leos DO Status: REG ER Study: Brain/Head without Contrast Date of Exam: 04/08/17 Exam# [id number] Ordering Dr: Martin Rodriguez STUDY: CT BRAIN WITHOUT CONTRAST REASON FOR EXAM: Female, 67 years old. Altered mental status RADIATION DOSAGE (If Supplied By Facility): CTDIvol = ( 44.99 ) mGy, DLP = ( 762.36 ) mGycm TECHNIQUE : Transaxial CT imaging of the brain was performed without administration of intravenous contrast material. Individualized dose optimization techniques were used for this CT. COMPARISON: None. FINDINGS: Normal soft tissue structures. There is hyperostosis frontalis internus. Normal size ventricles and extra-axial spaces for the patient's age. Normal white matter tracts of the cerebral hemispheres. Normal basal ganglia and thalami. Normal brainstem. Normal cerebellum. There is no intracranial hemorrhage. There are no findings of an acute ischemic infarction. A cyst is present in the right maxillary sinus. CT/Brain/Head without Contrast IMPRESSION: No evidence of acute infarct or hemorrhage. Comment: If there is clinical concern for hyperacute ischemia that is not yet apparent by CT, MRI should be considered if possible. Electronically Signed: Ady Steele, at 6:53 EDT Tel , Service support , CC: Hannah Leos DO; Martin Rodriguez Tabular Typist: Signed 08-Mar-2017 Elbow min 3 Views Result: Comments: See Note; NOTES: [facility] Imaging Services [address] [place] [address] Verdana 4d Elbow min 3 Views MR#: [id number] Acct: [id number] Name: HERMINIA NASH Rep #: [id number] : 1950 F 66 From: Greg Leiva MD PCP: Hannah Leos DO Status: REG CLI Study: Elbow min 3 Views Date of Exam: 03/08/17 Exam# [id number] Ordering Dr: Daniela Herzog STUDY: X-RAY - RIGHT ELBOW REASON FOR EXAM: Female, 66 years old. Pain. TECHNIQUE: 3 view(s) of the elbow. COMPARISON: None. FINDINGS: Normal visualized humerus, radius and u right of way appraiser. There is degenerative arthrosis of the radiocapitellar and ulnotrochlear articulations. The soft tissue structures are unremarkable. RAD/El bow min 3 Views IMPRESSION: No acute fracture or dislocation. Arthrosis. Electronically Signed: Greg Leiva MD at 14:47 EDT , Service support , Fax CC: Daniela Herzog; Hannah Leos DO Tabular Typist: Signed 22-Oct-2015 Bilat Scrn Digital AND CAD Result: Comments: See Note; NOTES: [facility] Imaging Services [address] [place] [address] Verdana 4d Bilat Scrn Digital AND CAD MR#: [id number] Acct: [id number] Name: HERMINIA NASH Rep #: [id number] : 1950 F 65 From: Paresh Kebede MD PCP: Hannah Leos DO Status: REG CLI Study: Bilat Scrn Digital AND CAD Date of Exam: 10/22/15 Exam# [id number] Or dering Dr: Hannah Leos DO MAMMOGRAPHY - BILATERAL SCREENING REASON FOR EXAM: Female, 65 years old. Routine annual screening examination. PERTINENT HISTORY: Non-contributory. TECHNIQUE: D igital examination. Mediolateral oblique (MLO) and craniocaudad (CC) views of both breasts were obtained. CAD: CAD was performed on this study. COMPARISON: Comparison is made with prior examination dated July 29, 2012 and October 29, 2010. FINDINGS: Breast Composition: The breasts are almost entirely fatty. There are no dominant masses or suspicious calc ifications. No other significant abnormalities are identified. There has been no significant change since the prior study. IMPRESSION: Stable bilateral screeni ng mammogram. Yearly follow-up mammogram recommended. (A) ASSESSMENT CATEGORY: BIRADS Category 1: Negative. A letter regarding these results will be sent to e patient by the facility within 30 days. Approximately 10% of breast cancers are not detected by mammography. A normal mammogram should not delay biopsy of a clinically suspicious abnormality. RS 2014 Electronically Signed: Paresh Kebede MD at 16:11 EST Tel [phone], Service support [phone], CC: Hannah Leos DO Tabular Typist: Signed 22-Oct-2015 Dexa Bone Density Study (HP) Result: Comments: See Note; NOTES: [facility] Imaging Services [address] [place] [address] Verdana 4d Dexa Bone Density Study (HP) MR#: [id number] Acct: [id number] Name : HERMINIA NASH Rep #: [id number] : 1950 F 65 From: Paresh Kebede MD PCP: Hannah Leos DO Status: [facility] Study: Dexa Bone Density Study (HP) Date of Exam: 10/22/15 Exam# [id number]: Hannah Leos DO STUDY: DUAL ENERGY X-RAY ABSORPTIOMETRY / DXA REASON FOR EXAM: Female, 65 years old. Early menopause. Loss of height. TECHNIQUE: Bone Mineral Density (BMD) johanna surements of lumbar spine and bilateral hips were obtained. COMPARISON: Comparison is made with prior study dated October 29, 2010. FINDINGS: Lumbar Spine (L1-L4 ): g/cm2 (1.131) / T-score (-0.6) / Z-score (0.9) Findings are suggestive of normal bone density with a low fracture risk. Left Femur Total: g/cm2 (1.026) / T-score (0.1) / Z-score (1.3) Left Femora l Neck: g/cm2 (0.927) / T-score (-0.8) / Z-score (0.6) Right Femur Total: g/cm2 (1.076) / T-score (0.5) / Z-score (1.6) Right Femoral Neck: g/cm2 (0.983) / T- score (-0.4) / Z-score (1.0) The T-Score s on the most recent prior examination were: Lumbar Spine (L1-L4): There has been improvement of bone density since the previous examination. Left Femur Total: which represents a worsening of 0.8%. Right Femur Total: which represents a worsening of 0.6%. IMPRESSION: The patient is considered normal as outlined below according to World Archie Organization ( WHO) criteria with a low fracture risk. There has been worsening of bone density since the previous examination. Reference Information: The T-score is the numbe r of standard deviations above or below the standard which is normal for young adults at their peak bone mineral density. The World Health Organization (WHO) interprets the T-scores as follows: Abo ve -1 Normal bone density Between -1 and -2.5 Osteopenia Equal to / or below -2.5 Osteoporosis As a practical clinical guideline, osteopenia may be graded as follows: Mild -1 through -1.5 Moderate -1.6 through -2.0 Severe -2.1 through -2.4 The Z-score is the number of standard deviations above or below age-matched controls. A Z-score of less than -1.5 would be considered abnormal. Referenc es: 1. NIH Osteoporosis and Related Bone Diseases http://www.osteo.org 2. International Society for Clinical Densitometry http://www.iscd.org 3. National Osteoporosis Foundation http://www.nof.org Electronically Signed: Paresh Kebede MD at 8:05 EST Tel [phone], Service support [phone], CC: Hannah Leos DO Tabular Typist: Signed 17-Oct-2015 ELECTROCARDIOGRAM, COMPLETE (ECG) (37373) Comments: nsr no acute chg Result: [MEASUREMENTS ANALYSIS] Date of Test: 10/17/2015 08:35:17; Heart Rate: 61; W[place] Interval: 176; QRS: 104; QT Interval: 402; Corrected QT Interval (QTc): 403; P Wave Thompson: -1; QRS Wave Thompson: 9; T Wave Thompson: -1; Blood Pressure: 148/84 [ECG DIAGNOSTIC STATEMENTS] Date of Test: 10/17/2015 08:35:17; Summary: Undetermined Rhythm BORDERLINE RHYTHM Family History Unknown Family Member Name Dates Details Mother Comments: Heart disease, High BP, Hypercholesterolemia Status: Active Social History Name Dates Details Non Drinker/No Alcohol Use Status: Active Tobacco use: Never smoker. Comments: 09/16/11 Status: Active Smoking Status Name Dates Details Never smoker Vital Signs Date Test Result Details [id number] Comments: [id number] BP Systolic 130 mm[Hg] Comments: Patient Position: Sitting; Cuff Location: Left Arm; Cuff Size: Standard BP Diastolic 66 mm[Hg] Comments: Patient Position: Sitting; Cuff Location: Left Arm; Cuff Size: Standard Weight 173 lb Height 62 in Body Mass Index Calculated 31.64 kg/m2 Body Surface Area Calculated 1.8 m2 :02 Temperature 98.2 f Comments: Method: Temporal Pulse 68 /min Comments: Pattern: Regular Respiration Rate 16 /min Comments: Pattern: Unlabored BP Systolic 134 mm[Hg] Comments: Patient Position: Sitting; Cuff Location: Left Arm; Cuff Size: Standard BP Diastolic 70 mm[Hg] Comments: Patient Position: Sitting; Cuff Location: Left Arm; Cuff Size: Standard Weight 173 lb Height 62 in Body Mass Index Calculated 31.64 kg/m2 Body Surface Area Calculated 1.8 m2 [id number] Temperature 97.6 f Comments: Method: Temporal Pulse 65 /min Comments: Pattern: Regular Respiration Rate 16 /min Comments: Pattern: Unlabored O2 SAT 95 % Comments: Room air BP Systolic 122 mm[Hg] Comments: Patient Position: Sitting; Cuff Location: Left Arm; Cuff Size: Large BP Diastolic 74 mm[Hg] Comments: Patient Position: Sitting; Cuff Location: Left Arm; Cuff Size: Large Weight 173 lb Height 62 in Body Mass Index Calculated 31.64 kg/m2 Body Surface Area Calculated 1.8 m2 :57 Temperature 97.7 f Comments: Method: Temporal Pulse 60 /min Comments: Pattern: Regular Respiration Rate 16 /min Comments: Pattern: Unlabored O2 SAT 94 % Comments: Room air BP Systolic 104 mm[Hg] Comments: Patient Position: Sitting; Cuff Location: Left Arm; Cuff Size: Standard BP Diastolic 62 mm[Hg] Comments: Patient Position: Sitting; Cuff Location: Left Arm; Cuff Size: Standard Weight 171 lb Height 62 in Body Mass Index Calculated 31.28 kg/m2 Body Surface Area Calculated 1.79 m2 :12 Pulse 60 /min Comments: Pattern: Regular Respiration Rate 18 /min Comments: Pattern: Unlabored O2 SAT 96 % Comments: Room air BP Systolic 134 mm[Hg] Comments: Patient Position: Sitting; Cuff Location: Left Arm; Cuff Size: Large BP Diastolic 80 mm[Hg] Comments: Patient Position: Sitting; Cuff Location: Left Arm; Cuff Size: Large Weight 169.25 lb Height 62 in Body Mass Index Calculated 30.96 kg/m2 Body Surface Area Calculated 1.78 m2 :27 Comments: Orthostatics Laying BP 135/69 pulse 69sitting BP 113/66 Pulse 73 Temperature 98.3 f Pulse 73 /min Comments: Pattern: Regular Respiration Rate 15 /min Comments: Pattern: Unlabored O2 SAT 95 % Comments: Room air BP Systolic 118 mm[Hg] Comments: Patient Position: Sitting; Cuff Location: Left Arm; Cuff Size: Standard BP Diastolic 62 mm[Hg] Comments: Patient Position: Sitting; Cuff Location: Left Arm; Cuff Size: Standard Weight 168.25 lb Height 62 in Body Mass Index Calculated 30.77 kg/m2 Body Surface Area Calculated 1.78 m2 :40 Pulse 53 /min Comments: Pattern: Regular Respiration Rate 18 /min Comments: Pattern: Unlabored O2 SAT 97 % Comments: Room air BP Systolic 118 mm[Hg] Comments: Patient Position: Sitting; Cuff Location: Left Arm; Cuff Size: Large BP Diastolic 72 mm[Hg] Comments: Patient Position: Sitting; Cuff Location: Left Arm; Cuff Size: Large Weight 168.25 lb Height 62 in Body Mass Index Calculated 30.77 kg/m2 Body Surface Area Calculated 1.78 m2 :10 Pulse 93 /min Comments: Pattern: Regular Respiration Rate 18 /min Comments: Pattern: Unlabored O2 SAT 93 % Comments: Room air BP Systolic 118 mm[Hg] Comments: Patient Position: Sitting; Cuff Location: Left Arm; Cuff Size: Large BP Diastolic 80 mm[Hg] Comments: Patient Position: Sitting; Cuff Location: Left Arm; Cuff Size: Large Weight 168.25 lb Height 62 in Body Mass Index Calculated 30.77 kg/m2 Body Surface Area Calculated 1.78 m2 :57 Temperature 98.2 f Comments: Method: Temporal Pulse 75 /min Comments: Pattern: Regular Respiration Rate 15 /min Comments: Pattern: Unlabored O2 SAT 97 % Comments: Room air BP Systolic 178 mm[Hg] Comments: Patient Position: Sitting; Cuff Location: Left Arm; Cuff Size: Large BP Diastolic 90 mm[Hg] Comments: Patient Position: Sitting; Cuff Location: Left Arm; Cuff Size: Large Weight 168 lb Height 62 in Body Mass Index Calculated 30.73 kg/m2 Body Surface Area Calculated 1.78 m2 :49 Pulse 59 /min Comments: Pattern: Regular Respiration Rate 18 /min Comments: Pattern: Unlabored O2 SAT 95 % Comments: Room air BP Systolic 122 mm[Hg] Comments: Patient Position: Sitting; Cuff Location: Left Arm; Cuff Size: Large BP Diastolic 70 mm[Hg] Comments: Patient Position: Sitting; Cuff Location: Left Arm; Cuff Size: Large Weight 165.125 lb Height 62 in Body Mass Index Calculated 30.2 kg/m2 Body Surface Area Calculated 1.76 m2 :59 Comments: 184/100 L arm manual cuff at same time Temperature 98.2 f Comments: Method: Temporal Pulse 78 /min Comments: Pattern: Regular Respiration Rate 16 /min Comments: Pattern: Unlabored O2 SAT 97 % Comments: Room air BP Systolic 185 mm[Hg] Comments: Patient Position: Sitting; Cuff Location: Right Arm; Cuff Size: Standard BP Diastolic 99 mm[Hg] Comments: Patient Position: Sitting; Cuff Location: Right Arm; Cuff Size: Standard Weight 166.4375 lb Height 62 in Body Mass Index Calculated 30.44 kg/m2 Body Surface Area Calculated 1.77 m2 :07 Pulse 64 /min Comments: Pattern: Regular Respiration Rate 18 /min Comments: Pattern: Unlabored O2 SAT 97 % Comments: Room air BP Systolic 142 mm[Hg] Comments: Patient Position: Sitting; Cuff Location: Left Arm; Cuff Size: Large BP Diastolic 86 mm[Hg] Comments: Patient Position: Sitting; Cuff Location: Left Arm; Cuff Size: Large Weight 166.4375 lb Height 62 in Body Mass Index Calculated 30.44 kg/m2 Body Surface Area Calculated 1.77 m2 :03 Pulse 79 /min Comments: Pattern: Regular Respiration Rate 18 /min Comments: Pattern: Unlabored O2 SAT 95 % Comments: Room air BP Systolic 128 mm[Hg] Comments: Patient Position: Sitting; Cuff Location: Left Arm; Cuff Size: Large BP Diastolic 84 mm[Hg] Comments: Patient Position: Sitting; Cuff Location: Left Arm; Cuff Size: Large Weight 166.25 lb Height 62 in Body Mass Index Calculated 30.41 kg/m2 Body Surface Area Calculated 1.77 m2 :57 Comments: hearing wnlno eye doc in years Pulse 71 /min Comments: Pattern: Regular Respiration Rate 18 /min Comments: Pattern: Unlabored O2 SAT 97 % Comments: Room air BP Systolic 140 mm[Hg] Comments: Patient Position: Sitting; Cuff Location: Left Arm; Cuff Size: Large BP Diastolic 92 mm[Hg] Comments: Patient Position: Sitting; Cuff Location: Left Arm; Cuff Size: Large Weight 163.375 lb Height 62 in Body Mass Index Calculated 29.88 kg/m2 Body Surface Area Calculated 1.75 m2 :16 Pulse 59 /min Comments: Pattern: Regular Respiration Rate 18 /min Comments: Pattern: Unlabored O2 SAT 98 % Comments: Room air BP Systolic 128 mm[Hg] Comments: Patient Position: Sitting; Cuff Location: Left Arm; Cuff Size: Large BP Diastolic 84 mm[Hg] Comments: Patient Position: Sitting; Cuff Location: Left Arm; Cuff Size: Large Weight 167.375 lb Height 62 in Body Mass Index Calculated 30.61 kg/m2 Body Surface Area Calculated 1.77 m2 :59 Temperature 98.2 f Comments: Method: Temporal Pulse 88 /min Comments: Pattern: Regular Respiration Rate 16 /min Comments: Pattern: Unlabored O2 SAT 98 % Comments: Room air BP Systolic 142 mm[Hg] Comments: Patient Position: Sitting; Cuff Location: Left Arm; Cuff Size: Large BP Diastolic 74 mm[Hg] Comments: Patient Position: Sitting; Cuff Location: Left Arm; Cuff Size: Large Weight 165.25 lb Height 62 in Body Mass Index Calculated 30.22 kg/m2 Body Surface Area Calculated 1.76 m2 :19 Pulse 72 /min Comments: Pattern: Regular Respiration Rate 18 /min Comments: Pattern: Unlabored O2 SAT 94 % Comments: Room air BP Systolic 120 mm[Hg] Comments: Patient Position: Sitting; Cuff Location: Left Arm; Cuff Size: Large BP Diastolic 80 mm[Hg] Comments: Patient Position: Sitting; Cuff Location: Left Arm; Cuff Size: Large Weight 169 lb Height 62 in Body Mass Index Calculated 30.91 kg/m2 Body Surface Area Calculated 1.78 m2 :34 Temperature 97.5 f Pulse 87 /min Comments: Pattern: Regular Respiration Rate 16 /min Comments: Pattern: Unlabored O2 SAT 98 % Comments: Room air BP Systolic 126 mm[Hg] Comments: Patient Position: Sitting; Cuff Location: Left Arm; Cuff Size: Standard BP Diastolic 84 mm[Hg] Comments: Patient Position: Sitting; Cuff Location: Left Arm; Cuff Size: Standard Weight 177.5 lb Height 62 in Body Mass Index Calculated 32.46 kg/m2 Body Surface Area Calculated 1.82 m2 :22 Temperature 96.8 f Comments: Method: Temporal Pulse 68 /min Comments: Pattern: Regular Respiration Rate 16 /min Comments: Pattern: Unlabored O2 SAT 97 % Comments: Room air BP Systolic 140 mm[Hg] Comments: Patient Position: Sitting; Cuff Location: Left Arm; Cuff Size: Standard BP Diastolic 80 mm[Hg] Comments: Patient Position: Sitting; Cuff Location: Left Arm; Cuff Size: Standard Weight 179 lb Height 62 in Body Mass Index Calculated 32.74 kg/m2 Body Surface Area Calculated 1.82 m2 :07 Pulse 81 /min Comments: Pattern: Regular Respiration Rate 18 /min Comments: Pattern: Unlabored O2 SAT 96 % Comments: Room air BP Systolic 128 mm[Hg] Comments: Patient Position: Sitting; Cuff Location: Left Arm; Cuff Size: Large BP Diastolic 86 mm[Hg] Comments: Patient Position: Sitting; Cuff Location: Left Arm; Cuff Size: Large Weight 180 lb Height 62 in Body Mass Index Calculated 32.92 kg/m2 Body Surface Area Calculated 1.83 m2 :05 Pulse 68 /min Comments: Pattern: Regular Respiration Rate 18 /min Comments: Pattern: Unlabored O2 SAT 98 % Comments: Room air BP Systolic 122 mm[Hg] Comments: Patient Position: Sitting; Cuff Location: Left Arm; Cuff Size: Large BP Diastolic 78 mm[Hg] Comments: Patient Position: Sitting; Cuff Location: Left Arm; Cuff Size: Large Weight 184.375 lb Height 62 in Body Mass Index Calculated 33.72 kg/m2 Body Surface Area Calculated 1.85 m2 :45 Pulse 61 /min Comments: Pattern: Regular Respiration Rate 18 /min Comments: Pattern: Unlabored O2 SAT 96 % Comments: Room air BP Systolic 128 mm[Hg] Comments: Patient Position: Sitting; Cuff Location: Left Arm; Cuff Size: Large BP Diastolic 78 mm[Hg] Comments: Patient Position: Sitting; Cuff Location: Left Arm; Cuff Size: Large Weight 187.25 lb Height 62 in Body Mass Index Calculated 34.25 kg/m2 Body Surface Area Calculated 1.86 m2 :24 Temperature 95.9 f Comments: Method: Temporal Pulse 68 /min Comments: Pattern: Regular Respiration Rate 18 /min Comments: Pattern: Unlabored O2 SAT 98 % Comments: Room air BP Systolic 148 mm[Hg] Comments: Patient Position: Standing; Cuff Location: Left Arm; Cuff Size: Large BP Diastolic 84 mm[Hg] Comments: Patient Position: Standing; Cuff Location: Left Arm; Cuff Size: Large Weight 187.25 lb Height 62 in Body Mass Index Calculated 34.25 kg/m2 Body Surface Area Calculated 1.86 m2 :14 Pulse 68 /min Comments: Pattern: Regular Respiration Rate 18 /min Comments: Pattern: Unlabored O2 SAT 98 % Comments: Room air BP Systolic 122 mm[Hg] Comments: Patient Position: Sitting; Cuff Location: Left Arm; Cuff Size: Large BP Diastolic 80 mm[Hg] Comments: Patient Position: Sitting; Cuff Location: Left Arm; Cuff Size: Large Weight 171.3125 lb Height 62 in Body Mass Index Calculated 31.33 kg/m2 Body Surface Area Calculated 1.79 m2 :25 Temperature 97.4 f Comments: Method: Oral Pulse 60 /min Comments: Pattern: Regular Respiration Rate 18 /min Comments: Pattern: Unlabored O2 SAT 97 % Comments: Room air BP Systolic 122 mm[Hg] Comments: Patient Position: Sitting; Cuff Location: Left Arm; Cuff Size: Large BP Diastolic 80 mm[Hg] Comments: Patient Position: Sitting; Cuff Location: Left Arm; Cuff Size: Large Weight 175.25 lb Height 62 in Body Mass Index Calculated 32.05 kg/m2 Body Surface Area Calculated 1.81 m2 :14 Temperature 97.4 f Comments: Method: Oral Pulse 68 /min Comments: Pattern: Regular Respiration Rate 16 /min Comments: Pattern: Unlabored BP Systolic 126 mm[Hg] Comments: Patient Position: Sitting; Cuff Location: Left Arm; Cuff Size: Standard BP Diastolic 78 mm[Hg] Comments: Patient Position: Sitting; Cuff Location: Left Arm; Cuff Size: Standard Weight 175.3125 lb Height 62 in Body Mass Index Calculated 32.06 kg/m2 Body Surface Area Calculated 1.81 m2 :43 Temperature 96.6 f Comments: Method: Oral Pulse 50 /min Comments: Pattern: Regular Respiration Rate 18 /min Comments: Pattern: Unlabored O2 SAT 98 % Comments: Room air BP Systolic 132 mm[Hg] Comments: Patient Position: Sitting; Cuff Location: Left Arm; Cuff Size: Large BP Diastolic 78 mm[Hg] Comments: Patient Position: Sitting; Cuff Location: Left Arm; Cuff Size: Large Weight 175.3125 lb Height 62 in Body Mass Index Calculated 32.06 kg/m2 Body Surface Area Calculated 1.81 m2 :54 Temperature 98.2 f Comments: Method: Oral Pulse 60 /min Comments: Pattern: Regular Respiration Rate 18 /min Comments: Pattern: Unlabored BP Systolic 120 mm[Hg] Comments: Patient Position: Sitting; Cuff Location: Left Arm; Cuff Size: Large BP Diastolic 70 mm[Hg] Comments: Patient Position: Sitting; Cuff Location: Left Arm; Cuff Size: Large Weight 177.5625 lb Height 62 in Body Mass Index Calculated 32.48 kg/m2 Body Surface Area Calculated 1.82 m2 :59 Temperature 98 f Comments: Method: Oral Pulse 76 /min Comments: Pattern: Regular Respiration Rate 20 /min Comments: Pattern: Unlabored BP Systolic 122 mm[Hg] Comments: Patient Position: Sitting; Cuff Location: Left Arm; Cuff Size: Large BP Diastolic 78 mm[Hg] Comments: Patient Position: Sitting; Cuff Location: Left Arm; Cuff Size: Large Weight 177.5625 lb Height 62 in Body Mass Index Calculated 32.48 kg/m2 Body Surface Area Calculated 1.82 m2 :39 Temperature 97.6 f Comments: Method: Oral Pulse 64 /min Comments: Pattern: Regular Respiration Rate 20 /min Comments: Pattern: Unlabored BP Systolic 128 mm[Hg] Comments: Patient Position: Sitting; Cuff Location: Left Arm; Cuff Size: Large BP Diastolic 84 mm[Hg] Comments: Patient Position: Sitting; Cuff Location: Left Arm; Cuff Size: Large Weight 175.3125 lb Height 62 in Body Mass Index Calculated 32.06 kg/m2 Body Surface Area Calculated 1.81 m2 :18 Temperature 97.2 f Comments: Method: Oral Pulse 60 /min Comments: Pattern: Regular Respiration Rate 20 /min Comments: Pattern: Unlabored BP Systolic 122 mm[Hg] Comments: Patient Position: Sitting; Cuff Location: Left Arm; Cuff Size: Large BP Diastolic 80 mm[Hg] Comments: Patient Position: Sitting; Cuff Location: Left Arm; Cuff Size: Large Weight 176.5625 lb Height 62 in Body Mass Index Calculated 32.29 kg/m2 Body Surface Area Calculated 1.81 m2 :26 Temperature 98.1 f Comments: Method: Oral Pulse 60 /min Comments: Pattern: Regular Respiration Rate 18 /min Comments: Pattern: Unlabored BP Systolic 124 mm[Hg] Comments: Patient Position: Sitting; Cuff Location: Left Arm; Cuff Size: Standard BP Diastolic 80 mm[Hg] Comments: Patient Position: Sitting; Cuff Location: Left Arm; Cuff Size: Standard Weight 179 lb Height 62 in Body Mass Index Calculated 32.74 kg/m2 Body Surface Area Calculated 1.82 m2 :58 Pulse 68 /min Comments: Pattern: Regular Respiration Rate 20 /min Comments: Pattern: Unlabored BP Systolic 122 mm[Hg] Comments: Patient Position: Sitting; Cuff Location: Left Arm; Cuff Size: Large BP Diastolic 78 mm[Hg] Comments: Patient Position: Sitting; Cuff Location: Left Arm; Cuff Size: Large Weight 179.25 lb Height 62 in Body Mass Index Calculated 32.78 kg/m2 Body Surface Area Calculated 1.82 m2 :11 Pulse 60 /min Comments: Pattern: Regular Respiration Rate 20 /min Comments: Pattern: Unlabored BP Systolic 142 mm[Hg] Comments: Patient Position: Sitting; Cuff Location: Left Arm; Cuff Size: Large BP Diastolic 80 mm[Hg] Comments: Patient Position: Sitting; Cuff Location: Left Arm; Cuff Size: Large Weight 180.4375 lb Height 62 in Body Mass Index Calculated 33 kg/m2 Body Surface Area Calculated 1.83 m2 :56 Pulse 72 /min Comments: Pattern: Regular Respiration Rate 20 /min Comments: Pattern: Unlabored BP Systolic 128 mm[Hg] Comments: Patient Position: Sitting; Cuff Location: Left Arm; Cuff Size: Large BP Diastolic 78 mm[Hg] Comments: Patient Position: Sitting; Cuff Location: Left Arm; Cuff Size: Large Weight 178.4375 lb Height 62 in Body Mass Index Calculated 32.64 kg/m2 Body Surface Area Calculated 1.82 m2 :42 Pulse 62 /min Comments: Pattern: Regular Respiration Rate 16 /min Comments: Pattern: Unlabored BP Systolic 114 mm[Hg] Comments: Patient Position: Sitting; Cuff Location: Left Arm; Cuff Size: Standard BP Diastolic 76 mm[Hg] Comments: Patient Position: Sitting; Cuff Location: Left Arm; Cuff Size: Standard :34 Pulse 80 /min Comments: Pattern: Regular Respiration Rate 20 /min Comments: Pattern: Unlabored BP Systolic 140 mm[Hg] Comments: Patient Position: Sitting; Cuff Location: Left Arm; Cuff Size: Large BP Diastolic 88 mm[Hg] Comments: Patient Position: Sitting; Cuff Location: Left Arm; Cuff Size: Large Weight 1892.0625 lb Height 62 in Body Mass Index Calculated 346.06 kg/m2 Body Surface Area Calculated 4.97 m2 :06 Pulse 74 /min Comments: Pattern: Regular Respiration Rate 18 /min Comments: Pattern: Unlabored BP Systolic 118 mm[Hg] Comments: Patient Position: Sitting; Cuff Location: Left Arm; Cuff Size: Standard BP Diastolic 72 mm[Hg] Comments: Patient Position: Sitting; Cuff Location: Left Arm; Cuff Size: Standard Weight 186.25 lb :49 Pulse 72 /min Comments: Pattern: Regular Respiration Rate 20 /min Comments: Pattern: Unlabored BP Systolic 132 mm[Hg] Comments: Patient Position: Sitting; Cuff Location: Left Arm; Cuff Size: Large BP Diastolic 80 mm[Hg] Comments: Patient Position: Sitting; Cuff Location: Left Arm; Cuff Size: Large Weight 190.125 lb Height 62 in Body Mass Index Calculated 34.77 kg/m2 Body Surface Area Calculated 1.87 m2 :16 Pulse 60 /min Comments: Pattern: Regular Respiration Rate 20 /min Comments: Pattern: Unlabored BP Systolic 122 mm[Hg] Comments: Patient Position: Sitting; Cuff Location: Left Arm; Cuff Size: Large BP Diastolic 80 mm[Hg] Comments: Patient Position: Sitting; Cuff Location: Left Arm; Cuff Size: Large Weight 199 lb Height 62 in Body Mass Index Calculated 36.4 kg/m2 Body Surface Area Calculated 1.91 m2 :27 Pulse 72 /min Comments: Pattern: Regular Respiration Rate 20 /min Comments: Pattern: Unlabored BP Systolic 132 mm[Hg] Comments: Patient Position: Sitting; Cuff Location: Left Arm; Cuff Size: Large BP Diastolic 78 mm[Hg] Comments: Patient Position: Sitting; Cuff Location: Left Arm; Cuff Size: Large Weight 199 lb Height 62 in Body Mass Index Calculated 36.4 kg/m2 Body Surface Area Calculated 1.91 m2 Head Circumference 0.00 cm :05 Pulse 60 /min Comments: Pattern: Regular Respiration Rate 20 /min Comments: Pattern: Unlabored BP Systolic 128 mm[Hg] Comments: Patient Position: Sitting; Cuff Location: Left Arm; Cuff Size: Large BP Diastolic 68 mm[Hg] Comments: Patient Position: Sitting; Cuff Location: Left Arm; Cuff Size: Large Weight 199 lb Height 62 in Body Mass Index Calculated 36.4 kg/m2 Body Surface Area Calculated 1.91 m2 Head Circumference 0.00 cm :04 Pulse 72 /min Comments: Pattern: Regular Respiration Rate 20 /min Comments: Pattern: Unlabored BP Systolic 138 mm[Hg] Comments: Patient Position: Sitting; Cuff Location: Left Arm; Cuff Size: Large BP Diastolic 84 mm[Hg] Comments: Patient Position: Sitting; Cuff Location: Left Arm; Cuff Size: Large Weight 199 lb Height 62 in Body Mass Index Calculated 36.4 kg/m2 Body Surface Area Calculated 1.91 m2 Head Circumference 0.00 cm :58 Temperature 98.9 f Comments: Method: Oral Pulse 72 /min Comments: Pattern: Regular Respiration Rate 20 /min Comments: Pattern: Unlabored BP Systolic 122 mm[Hg] Comments: Patient Position: Sitting; Cuff Location: Left Arm; Cuff Size: Large BP Diastolic 80 mm[Hg] Comments: Patient Position: Sitting; Cuff Location: Left Arm; Cuff Size: Large Weight 199 lb Height 62 in Body Mass Index Calculated 36.4 kg/m2 Body Surface Area Calculated 1.91 m2 Head Circumference 0.00 cm :00 Temperature 98.4 f Comments: Method: Oral Pulse 66 /min Comments: Pattern: Regular Respiration Rate 16 /min Comments: Pattern: Unlabored BP Systolic 124 mm[Hg] Comments: Patient Position: Supine; Cuff Location: Left Arm; Cuff Size: Standard BP Diastolic 78 mm[Hg] Comments: Patient Position: Supine; Cuff Location: Left Arm; Cuff Size: Standard Weight 199 lb Height 62 in Body Mass Index Calculated 36.4 kg/m2 Body Surface Area Calculated 1.91 m2 Head Circumference 0.00 cm :34 Pulse 72 /min Comments: Pattern: Regular Respiration Rate 20 /min Comments: Pattern: Unlabored BP Systolic 100 mm[Hg] Comments: Patient Position: Sitting; Cuff Location: Left Arm; Cuff Size: Standard BP Diastolic 64 mm[Hg] Comments: Patient Position: Sitting; Cuff Location: Left Arm; Cuff Size: Standard Weight 0 lb Height 0 in Head Circumference 0.00 cm :14 Pulse 72 /min Comments: Pattern: Regular Respiration Rate 18 /min Comments: Pattern: Unlabored BP Systolic 126 mm[Hg] Comments: Patient Position: Sitting; Cuff Location: Left Arm; Cuff Size: Standard BP Diastolic 78 mm[Hg] Comments: Patient Position: Sitting; Cuff Location: Left Arm; Cuff Size: Standard Weight 200.5625 lb Height 62 in Body Mass Index Calculated 36.68 kg/m2 Body Surface Area Calculated 1.91 m2 Head Circumference 0.00 cm :45 Pulse 64 /min Comments: Pattern: Regular Respiration Rate 16 /min Comments: Pattern: Unlabored BP Systolic 118 mm[Hg] Comments: Patient Position: Sitting; Cuff Location: Right Arm; Cuff Size: Standard BP Diastolic 78 mm[Hg] Comments: Patient Position: Sitting; Cuff Location: Right Arm; Cuff Size: Standard Weight 200.5625 lb Height 62 in Body Mass Index Calculated 36.68 kg/m2 Body Surface Area Calculated 1.91 m2 Head Circumference 0.00 cm :52 Temperature 99 f Comments: Method: Oral Pulse 60 /min Comments: Pattern: Regular Respiration Rate 16 /min Comments: Pattern: Unlabored BP Systolic 124 mm[Hg] Comments: Patient Position: Sitting; Cuff Location: Left Arm; Cuff Size: Standard BP Diastolic 72 mm[Hg] Comments: Patient Position: Sitting; Cuff Location: Left Arm; Cuff Size: Standard Weight 0 lb Height 0 in Head Circumference 0.00 cm :08 Temperature 98.2 f Comments: Method: Oral Pulse 64 /min Comments: Pattern: Regular Respiration Rate 16 /min Comments: Pattern: Unlabored BP Systolic 118 mm[Hg] Comments: Patient Position: Sitting; Cuff Location: Left Arm; Cuff Size: Standard BP Diastolic 76 mm[Hg] Comments: Patient Position: Sitting; Cuff Location: Left Arm; Cuff Size: Standard Weight 0 lb Height 0 in Head Circumference 0.00 cm :28 Pulse 74 /min Comments: Pattern: Regular Respiration Rate 18 /min Comments: Pattern: Unlabored BP Systolic 120 mm[Hg] Comments: Patient Position: Sitting; Cuff Location: Left Arm; Cuff Size: Large BP Diastolic 76 mm[Hg] Comments: Patient Position: Sitting; Cuff Location: Left Arm; Cuff Size: Large Weight 0 lb Height 0 in Head Circumference 0.00 cm :00 Temperature 98.6 f Comments: Method: Oral Pulse 68 /min Comments: Pattern: Regular Respiration Rate 18 /min Comments: Pattern: Unlabored BP Systolic 110 mm[Hg] Comments: Patient Position: Sitting; Cuff Location: Left Arm; Cuff Size: Large BP Diastolic 62 mm[Hg] Comments: Patient Position: Sitting; Cuff Location: Left Arm; Cuff Size: Large Weight 196.375 lb Height 62 in Body Mass Index Calculated 35.92 kg/m2 Body Surface Area Calculated 1.9 m2 Head Circumference 0.00 cm :23 Temperature 99.2 f Comments: Method: Undefined Pulse 84 /min Comments: Pattern: Regular Respiration Rate 16 /min Comments: Pattern: Undefined BP Systolic 110 mm[Hg] Comments: Patient Position: Sitting; Cuff Location: Left Arm; Cuff Size: Large BP Diastolic 62 mm[Hg] Comments: Patient Position: Sitting; Cuff Location: Left Arm; Cuff Size: Large Weight 0 lb Height 0 in Head Circumference 0.00 cm :47 Temperature 97.3 f Comments: Method: Oral Pulse 64 /min Comments: Pattern: Regular Respiration Rate 18 /min Comments: Pattern: Unlabored BP Systolic 110 mm[Hg] Comments: Patient Position: Sitting; Cuff Location: Left Arm; Cuff Size: Standard BP Diastolic 78 mm[Hg] Comments: Patient Position: Sitting; Cuff Location: Left Arm; Cuff Size: Standard Weight 0 lb Height 0 in Head Circumference 0.00 cm :26 Pulse 72 /min Comments: Pattern: Regular Respiration Rate 20 /min Comments: Pattern: Unlabored BP Systolic 138 mm[Hg] Comments: Patient Position: Sitting; Cuff Location: Left Arm; Cuff Size: Standard BP Diastolic 78 mm[Hg] Comments: Patient Position: Sitting; Cuff Location: Left Arm; Cuff Size: Standard Weight 196.375 lb Height 62 in Body Mass Index Calculated 35.92 kg/m2 Body Surface Area Calculated 1.9 m2 Head Circumference 0.00 cm :25 Pulse 72 /min Comments: Pattern: Regular Respiration Rate 20 /min Comments: Pattern: Unlabored BP Systolic 138 mm[Hg] Comments: Patient Position: Sitting; Cuff Location: Right Arm; Cuff Size: Standard BP Diastolic 88 mm[Hg] Comments: Patient Position: Sitting; Cuff Location: Right Arm; Cuff Size: Standard Weight 197.5 lb Height 62 in Body Mass Index Calculated 36.12 kg/m2 Body Surface Area Calculated 1.9 m2 Head Circumference 0.00 cm :31 Temperature 98.1 f Comments: Method: Oral Pulse 60 /min Comments: Pattern: Regular Respiration Rate 18 /min Comments: Pattern: Unlabored BP Systolic 126 mm[Hg] Comments: Patient Position: Sitting; Cuff Location: Left Arm; Cuff Size: Large BP Diastolic 78 mm[Hg] Comments: Patient Position: Sitting; Cuff Location: Left Arm; Cuff Size: Large Weight 200 lb Height 62 in Body Mass Index Calculated 36.58 kg/m2 Body Surface Area Calculated 1.91 m2 Head Circumference 0.00 cm :18 Temperature 98.3 f Comments: Method: Oral Pulse 60 /min Comments: Pattern: Regular Respiration Rate 20 /min Comments: Pattern: Unlabored BP Systolic 110 mm[Hg] Comments: Patient Position: Standing; Cuff Location: Right Arm; Cuff Size: Large BP Diastolic 80 mm[Hg] Comments: Patient Position: Standing; Cuff Location: Right Arm; Cuff Size: Large Weight 200 lb Height 0 in Head Circumference 0.00 cm :05 Temperature 97.5 f Comments: Method: Oral Pulse 72 /min Comments: Pattern: Regular Respiration Rate 20 /min Comments: Pattern: Unlabored BP Systolic 116 mm[Hg] Comments: Patient Position: Sitting; Cuff Location: Left Arm; Cuff Size: Standard BP Diastolic 74 mm[Hg] Comments: Patient Position: Sitting; Cuff Location: Left Arm; Cuff Size: Standard Weight 195 lb Height 0 in Head Circumference 0.00 cm :48 Temperature 98.4 f Comments: Method: Oral Pulse 70 /min Comments: Pattern: Regular Respiration Rate 20 /min Comments: Pattern: Unlabored BP Systolic 120 mm[Hg] Comments: Patient Position: Sitting; Cuff Location: Left Arm; Cuff Size: Standard BP Diastolic 64 mm[Hg] Comments: Patient Position: Sitting; Cuff Location: Left Arm; Cuff Size: Standard Weight 0 lb Height 0 in Head Circumference 0.00 cm :59 Temperature 98.1 f Comments: Method: Oral Pulse 80 /min Comments: Pattern: Regular Respiration Rate 20 /min Comments: Pattern: Unlabored BP Systolic 120 mm[Hg] Comments: Patient Position: Sitting; Cuff Location: Left Arm; Cuff Size: Standard BP Diastolic 60 mm[Hg] Comments: Patient Position: Sitting; Cuff Location: Left Arm; Cuff Size: Standard Weight 195 lb Height 0 in Head Circumference 0.00 cm :15 Temperature 98.4 f Comments: Method: Oral Pulse 64 /min Comments: Pattern: Regular Respiration Rate 16 /min Comments: Pattern: Unlabored BP Systolic 110 mm[Hg] Comments: Patient Position: Sitting; Cuff Location: Left Arm; Cuff Size: Standard BP Diastolic 72 mm[Hg] Comments: Patient Position: Sitting; Cuff Location: Left Arm; Cuff Size: Standard Weight 0 lb Height 0 in Head Circumference 0.00 cm :50 Temperature 97.8 f Comments: Method: Undefined Pulse 78 /min Comments: Pattern: Regular Respiration Rate 16 /min Comments: Pattern: Undefined BP Systolic 142 mm[Hg] Comments: Patient Position: Undefined; Cuff Location: Undefined; Cuff Size: Undefined BP Diastolic 80 mm[Hg] Comments: Patient Position: Undefined; Cuff Location: Undefined; Cuff Size: Undefined Weight 0 lb Height 0 in Head Circumference 0.00 cm :16 Pulse 78 /min Comments: Pattern: Regular Respiration Rate 16 /min Comments: Pattern: Undefined BP Systolic 116 mm[Hg] Comments: Patient Position: Sitting; Cuff Location: Undefined; Cuff Size: Undefined BP Diastolic 74 mm[Hg] Comments: Patient Position: Sitting; Cuff Location: Undefined; Cuff Size: Undefined Weight 0 lb Height 0 in Head Circumference 0.00 cm :01 Temperature 97.6 f Comments: Method: Oral Respiration Rate 16 /min Comments: Pattern: Undefined BP Systolic 118 mm[Hg] Comments: Patient Position: Sitting; Cuff Location: Undefined; Cuff Size: Undefined BP Diastolic 78 mm[Hg] Comments: Patient Position: Sitting; Cuff Location: Undefined; Cuff Size: Undefined Weight 198 lb Height 0 in Head Circumference 0.00 cm Results Date Description Value Details [id number] Miscellaneous Lab Procedure Comments: Comments: [id number] LACOSAMIDE SER RTTest(s) Ordered: [id number] LACOSAMIDE SER [facility] [id number] [place], [place], [id number] [facility] Comments: TEST RESULT UNITS REFERENCE INTERVALLacosamideLacosamide 16.6 High ug/mL 5.0 - 10.0 Limit of Detection 0.5 Mean plasma concen LAB (Normal) trations following maintenance dose 200 mg/day 4.99 +/- 2.51 ug/mL 400 mg/day 9.35 +/- 4.22 ug/mL 600 mg/day 12.46 +/- 5. TEST 60 ug/mLPlease Note:This test was developed and its performance characteristicsdetermined by [facility]. It has not been cleared or approvedby the Food and Drug Administration. TESTING PERFORMED AT [facility]. ORIGINAL REPORT ON FILE IN LAB CONTAINS ADDITIONAL TEST SITE INFORMATION. [id number] Valproic Acid (Depakene) Level Comments: [facility] [id number] [place], [id number] VALPROIC ACID 65 ug/mL (Normal) Range: 50-100 [id number] Potassium Comments: [facility] [id number] [place], [place], [id number] K 4.8 mmol/L (Normal) Range: 3.5-5.1 [id number]:49 METABOLIC PANEL, COMPREHENSIVE Comments: PATIENT NOT FASTINGPERFORMED BY: [facility] [id number] [facility] [id number] ([id number]) ALT (SGPT) 1 [iU]/L (Normal) Range: 0-32 AST (SGOT) 25 [iU]/L (Normal) Range: 0-40 Alkaline Phosphatase 51 [iU]/L (Normal) Range: 39-117 Bilirubin, Total <0.2 mg/dL (Normal) Range: 0.0-1.2 A/G Ratio 1.3 (Normal) Range: 1.2-2.2 Globulin, Total 3.5 g/dL (Normal) Range: 1.5-4.5 Albumin 4.5 g/dL (Normal) Range: 3.6-4.8 Protein, Total 8.0 g/dL (Normal) Range: 6.0-8.5 Calcium 9.5 mg/dL (Normal) Range: 8.7-10.3 Carbon Dioxide, Total 18 mmol/L (Abnormal) Range: 20-29 Chloride 105 mmol/L (Normal) Range: 96-106 Potassium 5.6 mmol/L (Abnormal) Range: 3.5-5.2 Comments: Client Requested FlagSpecimen received in contact with cells. No visible hemolysispresent. However GLUC may be decreased and K increased. Clinicalcorrelation indicated. Sodium 143 mmol/L (Normal) Range: 134-144 BUN/Creatinine Ratio 17 (Normal) Range: 12-28 eGFR If Africn Am 103 mL/min/1.73 (Normal) eGFR If NonAfricn Am 89 mL/min/1.73 (Normal) Creatinine 0.71 mg/dL (Normal) Range: 0.57-1.00 BUN 12 mg/dL (Normal) Range: 8-27 Glucose 101 mg/dL (Abnormal) Range: 65-99 Comments: Specimen received in contact with cells. No visible hemolysispresent. However GLUC may be decreased and K increased. Clinicalcorrelation indicated. [id number] CBC, PLATELETS & AUT DIFF Comments: PATIENT NOT FASTINGPERFORMED BY: [facility] [id number] [facility] [id number] ([id number]) Immature Grans (Abs) 0.0 {x10E3/uL} (Normal) Range: 0.0-0.1 Immature Granulocytes 0 % (Normal) Baso (Absolute) 0.0 {x10E3/uL} (Normal) Range: 0.0-0.2 Eos (Absolute) 0.1 {x10E3/uL} (Normal) Range: 0.0-0.4 Monocytes(Absolute) 0.4 {x10E3/uL} (Normal) Range: 0.1-0.9 Lymphs (Absolute) 2.3 {x10E3/uL} (Normal) Range: 0.7-3.1 Neutrophils (Absolute) 2.9 {x10E3/uL} (Normal) Range: 1.4-7.0 Basos 1 % (Normal) Eos 2 % (Normal) Monocytes 7 % (Normal) Lymphs 40 % (Normal) Neutrophils 50 % (Normal) Platelets 177 {x10E3/uL} (Normal) Range: 150-379 RDW 15.1 % (Normal) Range: 12.3-15.4 MCHC 32.2 g/dL (Normal) Range: 31.5-35.7 MCH 26.9 pg (Normal) Range: 26.6-33.0 MCV 84 fL (Normal) Range: 79-97 Hematocrit 36.9 % (Normal) Range: 34.0-46.6 Hemoglobin 11.9 g/dL (Normal) Range: 11.1-15.9 RBC 4.42 {x10E6/uL} (Normal) Range: 3.77-5.28 WBC 5.7 {x10E3/uL} (Normal) Range: 3.4-10.8 [id number] URINE FAVIAN CULTURE-IDENTIFICATN Comments: PATIENT NOT FASTINGPERFORMED BY: RENARD [facility] [id number] [place] [id number] Information: SRC:UC ([id number]) Result 1 MUG (Normal) Comments: Mixed urogenital flora10,000-25,000 colony forming units per mL Urine Final report (Normal) Culture,Comprehensive [id number] Urinalysis, Office ([id number]) UA - LEUKOCYTE ESTERASE Negative (Normal) UA - NITRITE Negative (Normal) URINE UROBILINGN KEERTHI TIMED Normal mg/dL (Normal) UA - PROTEIN 100 mg/dL (Normal) UA - PH 6 (Abnormal) UA - BLOOD Negative (Normal) UA - SPECIFIC GRAVITY 1.000 (Normal) UA - KETONES Negative mg/dL (Normal) UA - BILIRUBIN Negative (Normal) UA - GLUCOSE Negative (Normal) [id number] Protein+Creatinine Ratio,Urine Comments: [facility] [id number] [place], [address] PROT:CRE RATIO 1411 {mg/g_CRE} (Abnormal) Range: 0-200 PROTEIN,UR.RAN. 63.9 mg/dL (Abnormal) UR CREAT 45.30 mg/dL (Normal) [id number] Renal Profile Comments: [facility] [id number] [place], [place], [id number] CO2 24.0 mmol/L (Normal) Range: 21.0-32.0 CL 106 mmol/L (Normal) Range: 98-107 K 4.8 mmol/L (Normal) Range: 3.5-5.1 Comments: Slight Hemolysis, Result may be falsely increased. NA 139 mmol/L (Normal) Range: 136-145 PHOS 3.3 mg/dL (Normal) Range: 2.5-4.9 CA 9.4 mg/dL (Normal) Range: 8.5-10.1 ALB 3.9 g/dL (Normal) Range: 3.2-5.0 BUN/CRE 25.2 {RATIO} (Abnormal) Range: 10-20 EST GFR - AA 105 mL/min (Normal) Comments: GFR Calc EST GFR 87 mL/min (Normal) Comments: Non- GFR Calc CREAT,SERUM 0.71 mg/dL (Normal) Range: 0.55-1.02 Comments: The validity of the calculated GFR AND GFRAA in patients over70 years has not been determined. Clinical correlation isessential. BUN 18 mg/dL (Normal) Range: 7-18 GLU 128 mg/dL (Abnormal) Range: 74-106 Comments: Fasting Glucose result greater than or equal to 126 mg/dLsuggests DIABETES MELLITUS per A.D.A. criteria.Please note revised GLUCOSE reference range agugzbxpy82/02/2018. [id number] IGA/IGD/IGG/IGM-EACH ([id number]) Comments: PATIENT NOT FASTINGPERFORMED BY: CB [facility] [id number] [facility] [id number] BY: [facility] [address] [id number] Immunoglobulin E, Total 15 {IU/mL} (Normal) Range: 0-100 Immunoglobulin M, Qn, Serum 84 mg/dL (Normal) Range: 26-217 Immunoglobulin A, Qn, Serum 265 mg/dL (Normal) Range: 87-352 Immunoglobulin G, Qn, Serum 1461 mg/dL (Normal) Range: 700-1600 18-Djj-393338:40 Urinalysis, Complete Comments: Order Date: 03/25/18COLOR OF URINE MAY AFFECT DIPSTICK RESULTS.How was Urine Obtained? 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 [place], [place], [id number] AMORPHOUS 2+ (Normal) MUCUS, URINE 0 SEEN {/hpf} (Normal) BACTERIA 1+ {/hpf} (Normal) SQUAM EPI 0-5 SEEN {/hpf} (Normal) Range: 5-10 RBC-UA 0 SEEN {/hpf} (Normal) Range: 0-5 WBC 10-25 SEEN {/hpf} (Normal) Range: 0-5 LEUK ESTERASE 100 /ul (Abnormal) OCCULT BLOOD-UR Negative /ul (Normal) NITRITE UR Negative (Normal) UROBILI Normal mg/dL (Normal) PROT DIPSTX 500 mg/dL (Abnormal) pH UR 5.0 (Normal) Range: 5.0 - 8.0 SP.GR. DIPSTX 1.015 (Normal) Range: 1.002-1.030 KETONE UR 50 mg/dL (Abnormal) BILIRUBIN URINE 1 mg/dL (Abnormal) Comments: COLOR OF URINE MAY AFFECT DIPSTICK RESULTS. GLUCOSE, UR Normal mg/dL (Normal) CLARITY Sl. Cloudy (Normal) COLOR Mitra (Normal) 37-Pbv-911990:45 CBC W/Diff, Automated Comments: [facility] [address] [place], [address] RED CELL MORPH NORM C+C {NORMAL} (Normal) PLT EST ADEQUATE (Normal) SMEAR COMMENT (Normal) Comments: LYMPHOPENIA NOTED Absolute Lymph 0.25 {X10_3/ul} (Abnormal) Range: 0.83-4.51 Absolute Neut 4.8 {X10_3/uL} (Normal) Range: 2.0-7.7 IM GRAN % 0.200 % (Normal) Range: 0.0-0.9 Comments: IG% - Immature Granulocytes (promyelocytes, myelocytes andmetamyelocytes) > 1% indicates that a LEFT SHIFT is Present. BASO% 0.2 % (Normal) Range: 0-1 EO% 0.2 % (Normal) Range: 0-5 MONO% 1.2 % (Normal) Range: 0-10 LY% 4.9 % (Abnormal) Range: 19-41 NEUT% 93.3 % (Abnormal) Range: 47-70 MPV 10.4 fL (Normal) Range: 6.2-12.0 PLT 144 K/mm3 (Abnormal) Range: 150-450 RDW SD 47.9 fL (Abnormal) Range: 35.1-43.9 RDW CV 15.2 % (Abnormal) Range: 11.6-14.6 MCHC 30.6 {g/gl} (Abnormal) Range: 32-36 MCH 26.5 pg (Abnormal) Range: 27.0-32.0 MCV 86.6 fL (Normal) Range: 81-99 HCT 39.9 % (Normal) Range: 37-47 HGB 12.2 g/dL (Normal) Range: 12.0-15.0 RBC 4.61 {M/mm3} (Normal) Range: 4.2-5.4 WBC 5.2 K/mm3 (Normal) Range: 4.4-11.0 33-Pif-389095:45 Comprehensive Metabolic Profil Comments: [facility] [address] [place], [address] GAP 13 (Normal) Range: 5-15 CO2 20.0 mmol/L (Abnormal) Range: 21.0-32.0 CL 107 mmol/L (Normal) Range: 98-107 K 4.4 mmol/L (Normal) Range: 3.5-5.1 Comments: Slight Hemolysis, Result may be falsely increased. NA 140 mmol/L (Normal) Range: 136-145 T BILI 0.40 mg/dL (Normal) Range: 0.20-1.00 ALT 7 U/L (Abnormal) Range: 13-56 ALK P 58 U/L (Normal) Range: 45-117 AST 44 U/L (Abnormal) Range: 15-37 Comments: Slight Hemolysis, Result may be falsely increased. CA 8.8 mg/dL (Normal) Range: 8.5-10.1 A/G 0.8 {RATIO} (Abnormal) Range: 0.9-2.4 GLOB 4.4 g/dL (Abnormal) Range: 2.2-4.2 ALB 3.4 g/dL (Normal) Range: 3.2-5.0 T PROT 7.8 g/dL (Normal) Range: 6.4-8.2 BUN/CRE 15.2 {RATIO} (Normal) Range: 10-20 Estimated CRCL 43.60 ml/min (Normal) EST GFR - AA 67 mL/min (Normal) Comments: GFR Calc EST GFR 56 mL/min (Abnormal) Comments: Non- GFR Calc CREAT,SERUM 1.05 mg/dL (Abnormal) Range: 0.55-1.02 Comments: The validity of the calculated GFR AND GFRAA in patients over70 years has not been determined. Clinical correlation isessential. BUN 16 mg/dL (Normal) Range: 7-18 GLU 226 mg/dL (Abnormal) Range: 74-106 Comments: Glucose result greater than or equal to 200 mg/dLsuggests DIABETES MELLITUS per A.D.A. criteria.Please note revised GLUCOSE reference range cvdynmbco27/02/2018. 54-Rer-698189:45 Lactic Acid Comments: Yes/No query for Sepsis Lactate Rule [facility] [address] [facility] [address]. [place], [place], [id number] LACTIC ACID 4.8 mmol/L (Abnormal) Range: 0.4-2.0 Comments: Critical Result(s) Called at: 13:34:37 03/25/2018 by:Morenita Zamora 66-Jaq-858699:45 Partial Thromboplast Time Comments: [facility] [address] [place], [place], [id number] PTT 37.8 s (Abnormal) Range: 24.1-36.2 88-Fys-745193:45 Prothrombin Time w/INR Comments: [facility] [address] [place], [place], [id number] INR 1.1 (Normal) PROTIME 14.6 s (Normal) Range: 11.7-14.9 74-Ran-716578:45 Troponin-I Comments: [facility] [address] [facility] [address] [place], [place], [phone] TROPONIN-I < 0.015 ng/mL (Normal) Comments: TROPONIN-I EXPECTED VALUES <0.045 Negative 0.045 - 0.590 Consistent with Cardiac Damage > OR = 0.600 Critical Value Not every elevated troponin is indicative of MO. T hesevalues should be used with clinical judgement in examiningthe patient's clinical picture for diagnosis. To establisha diagnosis of MO versus myocardial injury, there must be ademonstrated rise and/ or fall in the troponin values, inaddition to ischemic symptoms, EKG changes, new regionalwall motion abnormality, and/or angiographical evidence. PLEASE NOTE: REFERENCE RANGES EDITED 01/10/1821-Mar-201854-Pop-657271:12 Microscopic Examination Comments: PATIENT WAS FASTINGPERFORMED BY: [facility] Zxcdha1690 [facility] [id number] Bacteria Moderate (Abnormal) Mucus Threads Present (Normal) Epithelial Cells (non renal) 0-10 {/hpf} (Normal) Range: 0 - 10 RBC 3-10 {/hpf} (Abnormal) Range: 0 - 2 WBC >30 {/hpf} (Abnormal) Range: 0 - 5 Comments: Clumps of leukocytes present. 36-Bvq-006529:57 HgA1C , Office (25910) HgA1C , Office 9.8 % (Abnormal) Range: 4.6 - 7.1 02-Nwm-516138:56 Microalb:Creat Ratio,Random UR Comments: [facility] [address] [place], [address] MALB:CREAT 3256.8 {mg/g_CRE} (Abnormal) MICROALBUMIN,UR 2410.0 mg/L (Normal) UR CREAT 74.00 mg/dL (Normal) 94-Yja-374750:12 CALCIFIDIOL (40896) VIT D 25 Comments: PATIENT WAS FASTINGPERFORMED BY: happn [facility] Tfncmk9[address]Dublin [place] [id number] Vitamin D, 25-Hydroxy 18.2 ng/mL (Abnormal) Range: 30.0-100.0 Comments: Vitamin D deficiency has been defined by the [place] ofMedicine and an Endocrine Society practice guideline as alevel of serum 25-OH vitamin D less than 20 ng/mL (1,2).The Endocrine Society went on to further define vitamin Dinsufficiency as a level between 21 and 29 ng/mL (2).1. IOM ([place] of Medicine). 2010. Dietary reference intakes for calcium and D. [place]: The National Academies Press.2. Swathi MF, Alexandra NC, Judy OLMEDO, et al. Evaluation, treatment, and prevention of vitamin D deficiency: an Endocrine Society clinical practice guideline. JCEM. 2010; 96(7):1911-30. 13-Ppu-452911:12 TSH (76185) Comments: PATIENT WAS FASTINGPERFORMED BY: CB [facility] Tppunv7[address]Dublin [place] [id number] TSH 3.550 {uIU/mL} (Normal) Range: 0.450-4.500 62-Jba-470034:12 URINALYSIS, W/ MICRO (99847) Comments: PATIENT WAS FASTINGPERFORMED BY: CB [facility] Iaakri0626 [address] RoadDublin [place] [id number] Microscopic Examination See below: (Normal) Comments: Microscopic was indicated and was performed. Nitrite, Urine Positive (Abnormal) Urobilinogen,Semi-Qn 0.2 mg/dL (Normal) Range: 0.2-1.0 Bilirubin Negative (Normal) Occult Blood Trace (Abnormal) Ketones Negative (Normal) Glucose Negative (Normal) Protein 3+ (Abnormal) WBC Esterase 2+ (Abnormal) Appearance Cloudy (Abnormal) Urine-Color Yellow (Normal) pH 6.0 (Normal) Range: 5.0-7.5 Specific [place] 1.021 (Normal) Range: 1.005-1.030 12-Nkc-350547:12 MICROALBUMIN: CREATININE RATIO Comments: PATIENT WAS FASTINGPERFORMED BY: FraudMetrixAtlantic Rehabilitation InstituteAbjdlr2162 [facility] [id number] (61009) AND (84977) Alb/Creat Ratio 5216.8 {mg/g_creat} (Abnormal) Range: 0.0-30.0 Albumin, Urine 4387.3 ug/mL (Normal) Comments: Results confirmed ondilution. Creatinine, Urine 84.1 mg/dL (Normal) 51-Bvu-539804:12 METABOLIC PANEL, COMPREHENSIVE Comments: PATIENT WAS FASTINGPERFORMED BY: [facility] HealthcareAtl[facility] Rehabilitation InstituteYuqlbl9034 [facility] [id number] (72830) ALT (SGPT) 3 [iU]/L (Normal) Range: 0-32 AST (SGOT) 30 [iU]/L (Normal) Range: 0-40 Alkaline Phosphatase 63 [iU]/L (Normal) Range: 39-117 Bilirubin, Total 0.2 mg/dL (Normal) Range: 0.0-1.2 A/G Ratio 1.2 (Normal) Range: 1.2-2.2 Globulin, Total 3.7 g/dL (Normal) Range: 1.5-4.5 Albumin 4.5 g/dL (Normal) Range: 3.6-4.8 Protein, Total 8.2 g/dL (Normal) Range: 6.0-8.5 Calcium 9.8 mg/dL (Normal) Range: 8.7-10.3 Carbon Dioxide, Total 16 mmol/L (Abnormal) Range: 20-29 Chloride 98 mmol/L (Normal) Range: 96-106 Potassium 5.0 mmol/L (Normal) Range: 3.5-5.2 Sodium 141 mmol/L (Normal) Range: 134-144 BUN/Creatinine Ratio 18 (Normal) Range: 12-28 eGFR If Africn Am 103 mL/min/1.73 (Normal) eGFR If NonAfricn Am 89 mL/min/1.73 (Normal) Creatinine 0.71 mg/dL (Normal) Range: 0.57-1.00 BUN 13 mg/dL (Normal) Range: 8-27 Glucose 222 mg/dL (Abnormal) Range: 65-99 51-Xxz-976382:12 LIPID PANEL (81188) Comments: PATIENT WAS FASTINGPERFORMED BY: Pikimal70 scanRAtrium Health [id number] VLDL Cholesterol Luis VLDLCH mg/dL (Normal) Range: 5-40 Comments: The calculation for the VLDL cholesterol is not valid whentriglyceride level is >400 mg/dL.Triglyceride result indicated is too high for an accurate LDLcholesterol estimation. HDL Cholesterol 29 mg/dL (Abnormal) Triglycerides 861 mg/dL (Abnormal) Range: 0-149 Cholesterol, Total 182 mg/dL (Normal) Range: 100-199 27-Wlk-367846:12 CBC W/AUTO DIFF WBC (95068) Comments: PATIENT WAS FASTINGPERFORMED BY: NeoStem[address] [facility] [id number] Immature Grans (Abs) 0.0 {x10E3/uL} (Normal) Range: 0.0-0.1 Immature Granulocytes 0 % (Normal) Baso (Absolute) 0.0 {x10E3/uL} (Normal) Range: 0.0-0.2 Eos (Absolute) 0.1 {x10E3/uL} (Normal) Range: 0.0-0.4 Monocytes(Absolute) 0.5 {x10E3/uL} (Normal) Range: 0.1-0.9 Lymphs (Absolute) 2.6 {x10E3/uL} (Normal) Range: 0.7-3.1 Neutrophils (Absolute) 4.4 {x10E3/uL} (Normal) Range: 1.4-7.0 Basos 0 % (Normal) Eos 1 % (Normal) Monocytes 6 % (Normal) Lymphs 34 % (Normal) Neutrophils 59 % (Normal) Platelets 163 {x10E3/uL} (Normal) Range: 150-379 RDW 16.4 % (Abnormal) Range: 12.3-15.4 MCHC 33.1 g/dL (Normal) Range: 31.5-35.7 MCH 27.3 pg (Normal) Range: 26.6-33.0 MCV 82 fL (Normal) Range: 79-97 Hematocrit 40.2 % (Normal) Range: 34.0-46.6 Hemoglobin 13.3 g/dL (Normal) Range: 11.1-15.9 RBC 4.88 {x10E6/uL} (Normal) Range: 3.77-5.28 WBC 7.6 {x10E3/uL} (Normal) Range: 3.4-10.8 :14 HgA1C , Office (38935) HgA1C , Office 8.7 % (Abnormal) Range: 4.6 - 7.1 :14 Blood Glucose , Office (54028) Blood Glucose , Office 225 (Normal) 20-Vhl-592857:06 Bedside Glucose Comments: [facility] LaboratoryPoint of Prri[address] [facility]. [place], [place] [address] BEDSIDE GLU 144 mg/dL (Abnormal) Range: 70-110 Comments: MANAGEMENT OF PATIENT CARE PER NURSING PROTOCOL 7-Yoz-062223:49 Basic Metabolic Profile (BMP) Comments: [facility] [address]ysrxwream[address] [facility]. [place], [place], [address] GAP 6 (Normal) Range: 5-15 CO2 29.0 mmol/L (Normal) Range: 21.0-32.0 CL 104 mmol/L (Normal) Range: 98-107 K 4.7 mmol/L (Normal) Range: 3.5-5.1 Comments: Slight Hemolysis, Result may be falsely increased. NA 139 mmol/L (Normal) Range: 136-145 CA 8.7 mg/dL (Normal) Range: 8.5-10.1 BUN/CRE 29.1 {RATIO} (Abnormal) Range: 10-20 EST GFR - AA 99 mL/min (Normal) Comments: GFR Calc EST GFR 82 mL/min (Normal) Comments: Non- GFR Calc CREAT,SERUM 0.76 mg/dL (Normal) Range: 0.55-1.02 Comments: The validity of the calculated GFR AND GFRAA in patients over70 years has not been determined. Clinical correlation isessential. BUN 22 mg/dL (Abnormal) Range: 7-18 GLU 196 mg/dL (Abnormal) Range: 74-106 Comments: Fasting Glucose result greater than or equal to 126 mg/dLsuggests DIABETES MELLITUS per A.D.A. criteria.Please note revised GLUCOSE reference range akavesdeq55/02/2018. 6-Nqb-451995:49 CBC-Complete Blood Cnt No Diff Comments: [facility] [address] [place], [address] MPV 10.3 fL (Normal) Range: 6.2-12.0 PLT 205 K/mm3 (Normal) Range: 150-450 RDW SD 45.7 fL (Abnormal) Range: 35.1-43.9 RDW CV 14.9 % (Abnormal) Range: 11.6-14.6 MCHC 31.6 {g/gl} (Abnormal) Range: 32-36 MCH 26.9 pg (Abnormal) Range: 27.0-32.0 MCV 85.3 fL (Normal) Range: 81-99 HCT 41.8 % (Normal) Range: 37-47 HGB 13.2 g/dL (Normal) Range: 12.0-15.0 RBC 4.90 {M/mm3} (Normal) Range: 4.2-5.4 WBC 8.0 K/mm3 (Normal) Range: 4.4-11.0 8-Ojo-908060:49 Prothrombin Time w/INR Comments: [facility] [address] [place], [place], [id number] INR 1.0 (Normal) PROTIME 13.3 s (Normal) Range: 11.7-14.9 3-Ypo-324095:49 Urinalysis, Complete Comments: How was Urine Obtained? MARBLE CEILING INSTALLER TO SPECIFYWSelect Medical [facility] [address] [place], [address] MUCUS, URINE 0 SEEN {/hpf} (Normal) BACTERIA RARE {/hpf} (Normal) SQUAM EPI 5-10 SEEN {/hpf} (Normal) Range: 5-10 RBC-UA 0 SEEN {/hpf} (Normal) Range: 0-5 WBC 10-25 SEEN {/hpf} (Normal) Range: 0-5 LEUK ESTERASE 100 /ul (Abnormal) OCCULT BLOOD-UR 10 /ul (Abnormal) NITRITE UR Negative (Normal) UROBILI Normal mg/dL (Normal) PROT DIPSTX 100 mg/dL (Abnormal) pH UR 6.0 (Normal) Range: 5.0 - 8.0 SP.GR. DIPSTX 1.015 (Normal) Range: 1.002-1.030 KETONE UR Negative mg/dL (Normal) BILIRUBIN URINE Negative mg/dL (Normal) GLUCOSE, UR 250 mg/dL (Abnormal) CLARITY Sl. Cloudy (Normal) COLOR Yellow (Normal) 2-Wqj-773984:44 Miscellaneous Lab Procedure Comments: Comments: LACOSAMIDE [id number] RED/RTTest(s) Ordered: LACOSAMIDE [id number] [facility] Jzwvjhivnj5044 [facility] [place], [place], [address] [facility] Comments: TEST RESULT LIMITSLacosamide Lacosamide 13.0 High ug/mL 5.0 - 10.0 Limit of Detection 0.5 Mean plasma concentrations f LAB (Normal) ollowing maintenance dose 200 mg/day 4.99 +/- 2.51 ug/mL 400 mg/day 9.35 +/- 4.22 ug/mL 600 mg/day 12.46 +/- 5.60 ug/mLPle TEST ase Note:This test was developed and its performance characteristicsdetermined by [facility]. It has not been cleared or approvedby the Food and Drug Administration. TESTING PERFORMED AT [facility]. ORIGINAL REPORT ON FILE IN LAB CONTAINS ADDITIONAL TEST SITE INFORMATION. 98-Huc-570082:21 URINE FAVIAN CULTURE-KEERTHI COL Comments: PATIENT NOT FASTINGPERFORMED BY: RENARD [facility] [address] [place] [id number] Information: SRC:UC COUNT ([id number]) Result 1 MTHREE (Normal) Comments: More than 3 organisms recovered, none predominant. Please submitanother culture if clinically indicated.Greater than 100,000 colony forming units per mL Urine Final report (Normal) Culture,Comprehensive 65-Cfd-392910:12 Urinalysis, Office (15875) UA - LEUKOCYTE ESTERASE Negative (Normal) UA - NITRITE Negative (Normal) URINE UROBILINGN KEERTHI TIMED 2 mg/dL (Normal) UA - PROTEIN 100 mg/dL (Normal) UA - PH 7 (Normal) UA - BLOOD Negative (Normal) UA - SPECIFIC GRAVITY 1.010 (Normal) UA - KETONES Negative mg/dL (Normal) UA - BILIRUBIN Negative (Normal) UA - GLUCOSE 500 (Abnormal) 20-Vod-078897:53 Microalb:Creat Ratio,Random UR Comments: [facility] [address] [facility] [address]. [place], [place], [address] MALB:CREAT 331.9 {mg/g_CRE} (Abnormal) MICROALBUMIN,UR 235.0 mg/L (Normal) UR CREAT 70.80 mg/dL (Normal) 54-Ztz-247828:45 Urinalysis, Complete Comments: Order Date: 10/13/17How was Urine Obtained? CLEAN CATCHWSelect [facility] Ycngndoioi8178 [facility] [address]. [place], [place], [id number] MUCUS, URINE RARE {/hpf} (Normal) BACTERIA RARE {/hpf} (Normal) TRANSITIONAL EP 0-5 SEEN {/hpf} (Normal) Range: 0-5 SQUAM EPI 0-5 SEEN {/hpf} (Normal) Range: 5-10 RBC-UA 0 SEEN {/hpf} (Normal) Range: 0-5 WBC 0-5 SEEN {/hpf} (Normal) Range: 0-5 LEUK ESTERASE 25 /ul (Abnormal) OCCULT BLOOD-UR Negative /ul (Normal) NITRITE UR Negative (Normal) UROBILI Normal mg/dL (Normal) PROT DIPSTX 100 mg/dL (Abnormal) pH UR 6.0 (Normal) Range: 5.0 - 8.0 SP.GR. DIPSTX 1.010 (Normal) Range: 1.002-1.030 KETONE UR 5 mg/dL (Abnormal) BILIRUBIN URINE Negative mg/dL (Normal) GLUCOSE, UR 1000 mg/dL (Abnormal) CLARITY Sl. Cloudy (Normal) COLOR Yellow (Normal) 27-Wlz-766552:55 Albumin, Serum Comments: DR ALVAREZ ADDED A RENAL PANELBarberton Citizens Hospital Uxzqhwtlvw5434 [facility]. [place], [place], [id number] ALB 3.7 g/dL (Normal) Range: 3.2-5.0 23-Kdp-315422:55 Basic Metabolic Profile (BMP) Comments: DR ALVAREZ ADDED A RENAL PANELBarberton Citizens Hospital [address]lxtu[address] [facility] [place], [place], [address] GAP 12 (Normal) Range: 5-15 CO2 20.0 mmol/L (Abnormal) Range: 21.0-32.0 CL 105 mmol/L (Normal) Range: 98-107 K 4.5 mmol/L (Normal) Range: 3.5-5.1 NA 137 mmol/L (Normal) Range: 136-145 CA 8.6 mg/dL (Normal) Range: 8.5-10.1 BUN/CRE 24.0 {RATIO} (Abnormal) Range: 10-20 Estimated CRCL 48.65 ml/min (Normal) EST GFR - AA 83 mL/min (Normal) Comments: GFR Calc EST GFR 69 mL/min (Normal) Comments: Non- GFR Calc CREAT,SERUM 0.87 mg/dL (Normal) Range: 0.55-1.02 Comments: The validity of the calculated GFR AND GFRAA in patients over70 years has not been determined. Clinical correlation isessential. BUN 21 mg/dL (Abnormal) Range: 7-18 GLU 163 mg/dL (Abnormal) Range: 74-106 Comments: Fasting Glucose result greater than or equal to 126 mg/dLsuggests DIABETES MELLITUS per A.D.A. criteria.Please note revised GLUCOSE reference range eivxuvbix45/02/2018. 15-Rrd-501459:55 CBC W/Diff, Automated Comments: [facility] [address] [place], [address] Absolute Lymph 0.27 {X10_3/ul} (Abnormal) Range: 0.83-4.51 Absolute Neut 8.3 {X10_3/uL} (Abnormal) Range: 2.0-7.7 IM GRAN % 0.100 % (Normal) Range: 0.0-0.9 Comments: IG% - Immature Granulocytes (promyelocytes, myelocytes andmetamyelocytes) > 1% indicates that a LEFT SHIFT is Present. BASO% 0.2 % (Normal) Range: 0-1 EO% 0.2 % (Normal) Range: 0-5 MONO% 3.4 % (Normal) Range: 0-10 LY% 3.0 % (Abnormal) Range: 19-41 NEUT% 93.1 % (Abnormal) Range: 47-70 MPV 10.0 fL (Normal) Range: 6.2-12.0 PLT 161 K/mm3 (Normal) Range: 150-450 RDW SD 45.4 fL (Abnormal) Range: 35.1-43.9 RDW CV 14.9 % (Abnormal) Range: 11.6-14.6 MCHC 31.7 {g/gl} (Abnormal) Range: 32-36 MCH 27.4 pg (Normal) Range: 27.0-32.0 MCV 86.5 fL (Normal) Range: 81-99 HCT 36.0 % (Abnormal) Range: 37-47 HGB 11.4 g/dL (Abnormal) Range: 12.0-15.0 RBC 4.16 {M/mm3} (Abnormal) Range: 4.2-5.4 WBC 8.9 K/mm3 (Normal) Range: 4.4-11.0 84-Nqx-651909:55 Lactic Acid Comments: Yes/No query for Sepsis Lactate Rule YBar[facility] [address] [place], [address] LACTIC ACID 2.8 mmol/L (Abnormal) Range: 0.4-2.0 Comments: Critical Result(s) Called at: 13:50:00 10/13/2017 by:Morenita Roberts to [facility] 48-Gel-795632:55 Phosphorus Comments: DR ALVAREZ ADDED A RENAL PANELWSelect Medical [facility] [address] [place], [address] PHOS 2.2 mg/dL (Abnormal) Range: 2.5-4.9 4-Wyc-040708:55 Basic Metabolic Profile (BMP) Comments: 'TROP' Serial specimen #1, #2, #3, or #4: 1WSelect [facility] [address]yzrblm[address] [place], [address] GAP 11 (Normal) Range: 5-15 CO2 22.0 mmol/L (Normal) Range: 21.0-32.0 CL 107 mmol/L (Normal) Range: 98-107 K 4.2 mmol/L (Normal) Range: 3.5-5.1 NA 140 mmol/L (Normal) Range: 136-145 CA 8.9 mg/dL (Normal) Range: 8.5-10.1 BUN/CRE 35.2 {RATIO} (Abnormal) Range: 10-20 Estimated CRCL 46.51 ml/min (Normal) EST GFR - AA 80 mL/min (Normal) Comments: GFR Calc EST GFR 66 mL/min (Normal) Comments: Non- GFR Calc CREAT,SERUM 0.91 mg/dL (Normal) Range: 0.55-1.02 Comments: The validity of the calculated GFR AND GFRAA in patients over70 years has not been determined. Clinical correlation isessential. BUN 32 mg/dL (Abnormal) Range: 7-18 GLU 155 mg/dL (Abnormal) Range: 74-106 Comments: Fasting Glucose result greater than or equal to 126 mg/dLsuggests DIABETES MELLITUS per A.D.A. criteria. 8-Dns-379315:55 CBC W/Diff, Automated Comments: [facility] [address] [place], [address] Absolute Lymph 3.74 {X10_3/ul} (Normal) Range: 0.83-4.51 Absolute Neut 3.4 {X10_3/uL} (Normal) Range: 2.0-7.7 IM GRAN % 0.400 % (Normal) Range: 0.0-0.9 Comments: IG% - Immature Granulocytes (promyelocytes, myelocytes andmetamyelocytes) > 1% indicates that a LEFT SHIFT is Present. BASO% 0.4 % (Normal) Range: 0-1 EO% 1.8 % (Normal) Range: 0-5 MONO% 5.5 % (Normal) Range: 0-10 LY% 48.3 % (Abnormal) Range: 19-41 NEUT% 43.6 % (Abnormal) Range: 47-70 MPV 9.7 fL (Normal) Range: 6.2-12.0 PLT 206 K/mm3 (Normal) Range: 150-450 RDW SD 45.8 fL (Abnormal) Range: 35.1-43.9 RDW CV 14.5 % (Normal) Range: 11.6-14.6 MCHC 30.9 {g/gl} (Abnormal) Range: 32-36 MCH 26.8 pg (Abnormal) Range: 27.0-32.0 MCV 86.8 fL (Normal) Range: 81-99 HCT 35.0 % (Abnormal) Range: 37-47 HGB 10.8 g/dL (Abnormal) Range: 12.0-15.0 RBC 4.03 {M/mm3} (Abnormal) Range: 4.2-5.4 WBC 7.8 K/mm3 (Normal) Range: 4.4-11.0 6-Zdz-248581:55 Troponin-I Comments: 'TROP' Serial specimen #1, #2, #3, or #4: [address] [place] [address] Gnjosgnlet[address] [facility] [place], [place], [address] TROPONIN-I 0.03 ng/mL (Normal) Comments: TROPONIN-I EXPECTED VALUES <0.05 NEGATIVE 0.06 - 0.59 AT RISK OF MO > OR = 0.60 SUGGEST MO 07-Oct-20179:39 URINE FAVIAN CULTURE-KEERTHI COL Comments: PATIENT NOT FASTINGPERFORMED BY: [facility] Aotihu[address] [facility] [id number] Information: SRC:UC COUNT ([id number]) Antimicrobial MIHEAD (Normal) Comments: S = Susceptible; I = Intermediate; R = Resistant P = Positive; N = Negative MICS are expressed in micrograms per mL Antibiotic RSLT#1 RSLT#2 RS Susceptibility LT#3 RSLT#4Amoxicillin/Clavulanic Acid SAmpicillin RCefazolin RCefepime SCeftriaxone RCefuroxime RCephalothin RCiprofloxacin RErtapenem SGentamicin SImipenem SLevofloxacin RNitrof urantoin SPiperacillin RTetracycline RTobramycin STrimethoprim/Sulfa R Result 1 Escherichia coli Comments: Greater than 100,000 colony forming units per mL (Abnormal) Urine Final report Culture,Comprehensive (Abnormal) 2-Abr-303024:[id number] Urinalysis, Office (77200) UA - LEUKOCYTE ESTERASE Trace (Normal) UA - NITRITE Negative (Normal) URINE UROBILINGN KEERTHI TIMED Normal mg/dL (Normal) UA - PROTEIN Negative mg/dL (Normal) UA - PH 6 (Abnormal) UA - BLOOD Hemolyzed Trace (Normal) UA - SPECIFIC GRAVITY 1.005 (Normal) UA - KETONES Negative mg/dL (Normal) UA - BILIRUBIN Negative (Normal) UA - GLUCOSE 500 (Abnormal) 09-Skx-49748:50 HgA1C , Office (39200) HgA1C , Office 7.5 % (Abnormal) Range: 4.6 - 7.1 88-Jej-26661:50 Blood Glucose , Office (32163) Blood Glucose , Office 196 (Normal) 94-Whx-619159:34 Free T3 Comments: [facility] [id number] [place], [place], [id number] ; appt 09/21 FREE T3 2.0 pg/mL (Abnormal) Range: 2.18-3.98 26-Ywd-106612:34 T4 Free Direct Comments: [facility] [address] [place] [address], [id number] T4 FREE DIRECT 1.06 ng/dL (Normal) Range: 0.76-1.46 89-Cuy-967561:34 Thyroid Stim Hormone (TSH) Comments: [facility] [address] [place], [address] TSH 0.86 {uIU/mL} (Normal) Range: 0.358-3.74 2-Nez-089650:55 Basic Metabolic Profile (BMP) Comments: [facility] [address] [place], [place], [id number] ; jesus alberto fernandes GAP 10 (Normal) Range: 5-15 CO2 26.0 mmol/L (Normal) Range: 21.0-32.0 CL 106 mmol/L (Normal) Range: 98-107 K 4.2 mmol/L (Normal) Range: 3.5-5.1 NA 142 mmol/L (Normal) Range: 136-145 CA 9.7 mg/dL (Normal) Range: 8.5-10.1 BUN/CRE 19.0 {RATIO} (Normal) Range: 10-20 Estimated CRCL 59.95 ml/min (Normal) EST GFR - AA 102 mL/min (Normal) Comments: GFR Calc EST GFR 84 mL/min (Normal) Comments: Non- GFR Calc CREAT,SERUM 0.74 mg/dL (Normal) Range: 0.55-1.02 Comments: The validity of the calculated GFR AND GFRAA in patients over70 years has not been determined. Clinical correlation isessential. BUN 14 mg/dL (Normal) Range: 7-18 GLU 120 mg/dL (Abnormal) Range: 70-110 Comments: Fasting Glucose result from 110 to <126 mg/dLsuggests IMPAIRED HOMEOSTASIS per A.D.A. criteria. [id number]-[id number] CBC W/Diff, Automated Comments: [facility] [address] [place], [place], [id number] Absolute Lymph 3.21 {X10_3/ul} (Normal) Range: 0.83-4.51 Absolute Neut 4.0 {X10_3/uL} (Normal) Range: 2.0-7.7 IM GRAN % 0.400 % (Normal) Range: 0.0-0.9 Comments: IG% - Immature Granulocytes (promyelocytes, myelocytes andmetamyelocytes) > 1% indicates that a LEFT SHIFT is Present. BASO% 0.4 % (Normal) Range: 0-1 EO% 1.3 % (Normal) Range: 0-5 MONO% 8.0 % (Normal) Range: 0-10 LY% 40.3 % (Normal) Range: 19-41 NEUT% 49.6 % (Normal) Range: 47-70 MPV 9.8 fL (Normal) Range: 6.2-12.0 PLT 171 K/mm3 (Normal) Range: 150-450 RDW SD 43.6 fL (Normal) Range: 35.1-43.9 RDW CV 14.1 % (Normal) Range: 11.6-14.6 MCHC 32.0 {g/gl} (Normal) Range: 32-36 MCH 27.5 pg (Normal) Range: 27.0-32.0 MCV 85.9 fL (Normal) Range: 81-99 HCT 41.5 % (Normal) Range: 37-47 HGB 13.3 g/dL (Normal) Range: 12.0-15.0 RBC 4.83 {M/mm3} (Normal) Range: 4.2-5.4 WBC 8.0 K/mm3 (Normal) Range: 4.4-11.0 79-Syw-633814:28 Microscopic Examination Comments: PATIENT NOT FASTINGPERFORMED BY: [facility] Solutions[facility] [id number] Bacteria Few (Normal) Mucus Threads Present (Normal) Epithelial Cells (non renal) 0-10 {/hpf} (Normal) Range: 0 - 10 RBC 11-30 {/hpf} (Abnormal) Range: 0 - 2 WBC 11-30 {/hpf} (Abnormal) Range: 0 - 5 78-Hkp-730132:28 MICROALBUMIN: CREATININE RATIO Comments: PATIENT NOT FASTINGPERFORMED BY: [employer] [facility] [id number] ([id number]) AND (77894) Microalb/Creat Ratio 3121.4 {mg/g_creat} (Abnormal) Range: 0.0-30.0 Microalbumin, Urine 2728.1 ug/mL (Normal) Comments: Results confirmed ondilution. Creatinine, Urine 87.4 mg/dL (Normal) 23-Gth-973998:28 URINALYSIS (81529) Comments: PATIENT NOT FASTINGPERFORMED BY: [employer] [facility] [id number] Microscopic Examination See below: (Normal) Comments: Microscopic was indicated and was performed. Nitrite, Urine Negative (Normal) Urobilinogen,Semi-Qn 0.2 mg/dL (Normal) Range: 0.2-1.0 Bilirubin Negative (Normal) Occult Blood 2+ (Abnormal) Ketones Negative (Normal) Glucose Negative (Normal) Protein 3+ (Abnormal) WBC Esterase 1+ (Abnormal) Appearance Clear (Normal) Urine-Color Yellow (Normal) pH 6.5 (Normal) Range: 5.0-7.5 Specific Upton 1.014 (Normal) Range: 1.005-1.030 60-Mca-[id number]:33 Urinalysis, Complete Comments: Order Date: 06/20/17Has pt arrived? YHow was Urine Obtained? CLEAN [facility] [address]. [place], [place], [phone] HYALINE CAST 0-5 SEEN {/lpf} (Normal) Range: 0-5 MUCUS, URINE 0 SEEN {/hpf} (Normal) BACTERIA 1+ {/hpf} (Normal) TRANSITIONAL EP 0-5 SEEN {/hpf} (Normal) Range: 0-5 SQUAM EPI 0-5 SEEN {/hpf} (Normal) Range: 5-10 RBC-UA 0-5 SEEN {/hpf} (Normal) Range: 0-5 WBC 5-10 SEEN {/hpf} (Normal) Range: 0-5 LEUK ESTERASE Negative /ul (Normal) OCCULT BLOOD-UR Negative /ul (Normal) NITRITE UR Negative (Normal) UROBILI Normal mg/dL (Normal) PROT DIPSTX 500 mg/dL (Abnormal) pH UR 7.0 (Normal) Range: 5.0 - 8.0 SP.GR. DIPSTX 1.010 (Normal) Range: 1.002-1.030 KETONE UR 5 mg/dL (Abnormal) BILIRUBIN URINE Negative mg/dL (Normal) GLUCOSE, UR Normal mg/dL (Normal) CLARITY Clear (Normal) COLOR Straw (Normal) 43-Oef-601001:42 Basic Metabolic Profile (BMP) Comments: [facility] [address] [place], [place], [id number] GAP 14 (Normal) Range: 5-15 CO2 22.0 mmol/L (Normal) Range: 21.0-32.0 CL 104 mmol/L (Normal) Range: 98-107 K 3.7 mmol/L (Normal) Range: 3.5-5.1 NA 140 mmol/L (Normal) Range: 136-145 CA 9.4 mg/dL (Normal) Range: 8.5-10.1 BUN/CRE 17.4 {RATIO} (Normal) Range: 10-20 Estimated CRCL 59.15 ml/min (Normal) EST GFR - AA 100 mL/min (Normal) Comments: GFR Calc EST GFR 83 mL/min (Normal) Comments: Non- GFR Calc CREAT,SERUM 0.75 mg/dL (Normal) Range: 0.55-1.02 Comments: The validity of the calculated GFR AND GFRAA in patients over70 years has not been determined. Clinical correlation isessential. BUN 13 mg/dL (Normal) Range: 7-18 GLU 156 mg/dL (Abnormal) Range: 70-110 Comments: Fasting Glucose result greater than or equal to 126 mg/dLsuggests DIABETES MELLITUS per A.D.A. criteria. 73-Nis-300428:42 CBC W/Diff, Automated Comments: [facility] [address]. [place], [place], [phone] Absolute Lymph 2.82 {X10_3/ul} (Normal) Range: 0.83-4.51 Absolute Neut 3.6 {X10_3/uL} (Normal) Range: 2.0-7.7 IM GRAN % 0.100 % (Normal) Range: 0.0-0.9 Comments: IG% - Immature Granulocytes (promyelocytes, myelocytes andmetamyelocytes) > 1% indicates that a LEFT SHIFT is Present. BASO% 0.3 % (Normal) Range: 0-1 EO% 2.1 % (Normal) Range: 0-5 MONO% 5.9 % (Normal) Range: 0-10 LY% 40.4 % (Normal) Range: 19-41 NEUT% 51.2 % (Normal) Range: 47-70 MPV 9.6 fL (Normal) Range: 6.2-12.0 PLT 180 K/mm3 (Normal) Range: 150-450 RDW SD 45.9 fL (Abnormal) Range: 35.1-43.9 RDW CV 14.8 % (Abnormal) Range: 11.6-14.6 MCHC 31.6 {g/gl} (Abnormal) Range: 32-36 MCH 26.8 pg (Abnormal) Range: 27.0-32.0 MCV 84.9 fL (Normal) Range: 81-99 HCT 39.9 % (Normal) Range: 37-47 HGB 12.6 g/dL (Normal) Range: 12.0-15.0 RBC 4.70 {M/mm3} (Normal) Range: 4.2-5.4 WBC 7.0 K/mm3 (Normal) Range: 4.4-11.0 :18 HgA1C , Office (63934) HgA1C , Office 6.4 % (Normal) Range: 4.6 - 7.1 :18 Blood Glucose , Office (36264) Blood Glucose , Office 173 (Normal) 7-Vuc-555026:20 Urine Culture,Comprehensive Comments: PERFORMED BY: [facility]CoAtl[facility] InstituteFgtsgx6996 [facility] [id number] Information: SRC:UR Antimicrobial MIHEAD (Normal) Comments: S = Susceptible; I = Intermediate; R = Resistant P = Positive; N = Negative MICS are expressed in micrograms per mL Antibiotic RSLT#1 RSLT#2 RS Susceptibility LT#3 RSLT#4Amoxicillin/Clavulanic Acid SAmpicillin RCefazolin RCefepime SCeftriaxone RCefuroxime RCephalothin RCiprofloxacin RErtapenem SGentamicin SImipenem SLevofloxacin RNitrof urantoin SPiperacillin RTetracycline RTobramycin STrimethoprim/Sulfa R Result 1 Escherichia coli Comments: Greater than 100,000 colony forming units per mL (Abnormal) Urine Final report Culture,Comprehensive (Abnormal) 35-Hbn-469910:14 Basic Metabolic Profile (BMP) Comments: [facility] [address] [place], [address] GAP 14 (Normal) Range: 5-15 CO2 20.0 mmol/L (Abnormal) Range: 21.0-32.0 CL 98 mmol/L (Normal) Range: 98-107 K 3.7 mmol/L (Normal) Range: 3.5-5.1 NA 132 mmol/L (Abnormal) Range: 136-145 CA 8.7 mg/dL (Normal) Range: 8.5-10.1 BUN/CRE 10.3 {RATIO} (Normal) Range: 10-20 Estimated CRCL 65.23 ml/min (Normal) EST GFR - AA 112 mL/min (Normal) Comments: GFR Calc EST GFR 92 mL/min (Normal) Comments: Non- GFR Calc CREAT,SERUM 0.68 mg/dL (Normal) Range: 0.55-1.02 Comments: The validity of the calculated GFR AND GFRAA in patients over70 years has not been determined. Clinical correlation isessential. BUN 7 mg/dL (Normal) Range: 7-18 GLU 154 mg/dL (Abnormal) Range: 70-110 Comments: Fasting Glucose result greater than or equal to 126 mg/dLsuggests DIABETES MELLITUS per A.D.A. criteria. 8-Qwb-[id number]:15 URINE FAVIAN CULTURE-IDENTIFICATN Comments: PATIENT NOT FASTINGPERFORMED BY: [facility] Keomqr8186 [facility] [id number] Information: SRC:ARNOLD (99880) Antimicrobial MIHEAD (Normal) Comments: S = Susceptible; I = Intermediate; R = Resistant P = Positive; N = Negative MICS are expressed in micrograms per mL Antibiotic RSLT#1 RSLT#2 RS Susceptibility LT#3 RSLT#4Amoxicillin/Clavulanic Acid SAmpicillin RCefazolin RCefepime SCeftriaxone RCefuroxime RCephalothin RCiprofloxacin RErtapenem SGentamicin SImipenem SLevofloxacin RNitrof urantoin SPiperacillin RTetracycline RTobramycin STrimethoprim/Sulfa R Result 1 Escherichia coli Comments: Greater than 100,000 colony forming units per mL (Abnormal) Urine Final report Culture,Comprehensive (Abnormal) 3-Ppd-377042:19 Urinalysis, Office (30990) UA - LEUKOCYTE ESTERASE Moderate (Normal) UA - NITRITE Negative (Normal) URINE UROBILINGN KEERTHI TIMED Normal mg/dL (Normal) UA - PROTEIN 300 mg/dL (Normal) UA - PH 6 (Abnormal) UA - BLOOD Hemolyzed Trace (Normal) UA - SPECIFIC GRAVITY 1.025 (Normal) UA - KETONES Negative mg/dL (Normal) UA - BILIRUBIN Negative (Normal) UA - GLUCOSE Negative (Normal) 76-Oot-839919:31 Urinalysis, Office (07174) UA - LEUKOCYTE ESTERASE Negative (Normal) UA - NITRITE Negative (Normal) URINE UROBILINGN KEERTHI TIMED Normal mg/dL (Normal) UA - PROTEIN 300 mg/dL (Normal) UA - PH 6 (Abnormal) UA - BLOOD Negative (Normal) UA - SPECIFIC GRAVITY 1.015 (Normal) UA - KETONES Negative mg/dL (Normal) UA - BILIRUBIN Negative (Normal) UA - GLUCOSE Negative (Normal) 31-Kbc-028924:47 URINE FAVIAN CULTURE-IDENTIFICATN Comments: PATIENT NOT FASTINGPERFORMED BY: [facility] Qracvg2278 [facility] [id number] Information: SRC:ARNOLD (90067) Result 1 BETAGB (Abnormal) Comments: Beta hemolytic Streptococcus, group B25,000- 50,000 colony forming units per mLPenicillin and ampicillin are drugs of choice for treatment ofbeta-hemolytic streptococcal infections. Susceptibility testin g ofpenicillins and other beta-lactam agents approved by the FDA fortreatment of beta-hemolytic streptococcal infections need not beperformed routinely because nonsusceptible isolates are extremelyrare in any beta-hemolytic streptococcus and have not been reportedfor Streptococcus pyogenes (group A). (CLSI 2011) Urine Final report (Abnormal) Culture,Comprehensive 94-Cku-15772:50 Urinalysis, Complete Comments: How was Urine Obtained? [facility] SPECIMENW[facility] [address]tasly[address] Leandraannie AndradeAcme, [place], [address] MUCUS, URINE 0 SEEN {/hpf} (Normal) BACTERIA 0 SEEN {/hpf} (Normal) SQUAM EPI 0 SEEN {/hpf} (Normal) Range: 5-10 RBC-UA 0 SEEN {/hpf} (Normal) Range: 0-5 WBC 0 SEEN {/hpf} (Normal) Range: 0-5 LEUK ESTERASE 25 /ul (Abnormal) OCCULT BLOOD-UR Negative /ul (Normal) NITRITE UR Negative (Normal) UROBILI Normal mg/dL (Normal) PROT DIPSTX 30 mg/dL (Abnormal) pH UR 7.0 (Normal) Range: 5.0 - 8.0 SP.GR. DIPSTX 1.010 (Normal) Range: 1.002-1.030 KETONE UR Negative mg/dL (Normal) BILIRUBIN URINE Negative mg/dL (Normal) GLUCOSE, UR Normal mg/dL (Normal) CLARITY Clear (Normal) COLOR Straw (Normal) :25 CBC W/Diff, Automated Comments: [facility] [address] [place], [address] Absolute Lymph 2.00 {X10_3/ul} (Normal) Range: 0.83-4.51 Absolute Neut 2.0 {X10_3/uL} (Normal) Range: 2.0-7.7 IM GRAN % 0.200 % (Normal) Range: 0.0-0.9 Comments: IG% - Immature Granulocytes (promyelocytes, myelocytes andmetamyelocytes) > 1% indicates that a LEFT SHIFT is Present. BASO% 0.6 % (Normal) Range: 0-1 EO% 3.5 % (Normal) Range: 0-5 MONO% 8.9 % (Normal) Range: 0-10 LY% 43.3 % (Abnormal) Range: 19-41 NEUT% 43.5 % (Abnormal) Range: 47-70 MPV 9.6 fL (Normal) Range: 6.2-12.0 PLT 176 K/mm3 (Normal) Range: 150-450 RDW SD 49.5 fL (Abnormal) Range: 35.1-43.9 RDW CV 15.0 % (Abnormal) Range: 11.6-14.6 MCHC 30.4 {g/gl} (Abnormal) Range: 32-36 MCH 27.7 pg (Normal) Range: 27.0-32.0 MCV 91.3 fL (Normal) Range: 81-99 HCT 33.6 % (Abnormal) Range: 37-47 HGB 10.2 g/dL (Abnormal) Range: 12.0-15.0 RBC 3.68 {M/mm3} (Abnormal) Range: 4.2-5.4 WBC 4.6 K/mm3 (Normal) Range: 4.4-11.0 :25 Comprehensive Metabolic Profil Comments: 'TROP' Serial specimen #1, #2, #3, or #4: 1WSelect [facility] [address] [place], [address] GAP 7 (Normal) Range: 5-15 CO2 27.0 mmol/L (Normal) Range: 21.0-32.0 CL 109 mmol/L (Abnormal) Range: 98-107 K 4.3 mmol/L (Normal) Range: 3.5-5.1 NA 143 mmol/L (Normal) Range: 136-145 T BILI 0.30 mg/dL (Normal) Range: 0.20-1.00 ALT 7 U/L (Abnormal) Range: 12-78 ALK P 64 U/L (Normal) Range: 45-117 AST 33 U/L (Normal) Range: 15-37 CA 8.8 mg/dL (Normal) Range: 8.5-10.1 A/G 0.7 {RATIO} (Abnormal) Range: 0.9-2.4 GLOB 5.0 g/dL (Abnormal) Range: 2.3-3.5 ALB 3.4 g/dL (Normal) Range: 3.4-5.0 T PROT 8.4 g/dL (Abnormal) Range: 6.4-8.2 BUN/CRE 9.2 {RATIO} (Abnormal) Range: 10-20 Estimated CRCL 82.15 ml/min (Normal) EST GFR - AA 144 mL/min (Normal) Comments: GFR Calc EST GFR 119 mL/min (Normal) Comments: Non- GFR Calc CREAT,SERUM 0.54 mg/dL (Abnormal) Range: 0.55-1.02 Comments: The validity of the calculated GFR AND GFRAA in patients over70 years has not been determined. Clinical correlation isessential. BUN 5 mg/dL (Abnormal) Range: 7-18 GLU 128 mg/dL (Abnormal) Range: 70-110 Comments: Fasting Glucose result greater than or equal to 126 mg/dLsuggests DIABETES MELLITUS per A.D.A. criteria. :25 Partial Thromboplast Time Comments: [facility] [address] [place], [address] PTT 54.7 s (Abnormal) Range: 24.1-36.2 :25 Prothrombin Time w/INR Comments: [facility] [address] [place], [address] INR 1.0 (Normal) PROTIME 13.2 s (Normal) Range: 11.7-14.9 :25 Troponin-I Comments: 'TROP' Serial specimen #1, #2, #3, or #4: 1W[facility] [address] [place], [address] TROPONIN-I < 0.02 ng/mL (Normal) Comments: TROPONIN-I EXPECTED VALUES <0.05 NEGATIVE 0.06 - 0.59 AT RISK OF MO > OR = 0.60 SUGGEST MO :23 Bedside Glucose Comments: [facility] LaboratoryPoint of Jwpm[address] [place] [address] BEDSIDE GLU 129 mg/dL (Abnormal) Range: 70-110 Comments: Dr Gemma FelderMANAGEMENT OF PATIENT CARE PER NURSING PROTOCOL :42 Microscopic Examination Comments: PATIENT NOT FASTINGPERFORMED BY: [employer] [facility] [id number] BY: [facility] [id number] Bacteria Few (Normal) Mucus Threads Present (Normal) Cast Type Hyaline casts (Normal) Casts Present {/lpf} (Abnormal) Epithelial Cells (non renal) 0-10 {/hpf} (Normal) Range: 0 - 10 RBC >30 {/hpf} (Abnormal) Range: 0 - 2 WBC 0-5 {/hpf} (Normal) Range: 0 - 5 :42 CCP ANTIBODY (34347) Comments: PATIENT NOT FASTINGPERFORMED BY: [employer] [facility] [id number] BY: [facility] [id number] CCP Antibodies IgG/IgA <1 {units} (Normal) Range: 0-19 Comments: Negative <20 Weak positive 20 - 39 Moderate positive 40 - 59 Strong positive >59 :42 RHEUMATOID FACTOR-QUAL Comments: PATIENT NOT FASTINGPERFORMED BY: [employer] [facility] [id number] BY: [facility] [id number] (30184) RA Latex Turbid. <10.0 {IU/mL} (Normal) Range: 0.0-13.9 :42 C-Reactive Protein (39324) Comments: PATIENT NOT FASTINGPERFORMED BY: [place] [id number] [facility] [id number] BY: [address] [id number] C-Reactive Protein, Quant 2.5 mg/L (Normal) Range: 0.0-4.9 :42 SED RATE ERYTHROCYTE Comments: PATIENT NOT FASTINGPERFORMED BY: LabJoyce [place] 9691470 [facility] [id number] BY: [address] [id number] (30338) Sedimentation Rate-Westergren 44 mm/h (Abnormal) Range: 0-40 :42 URIC ACID BLOOD (15651) Comments: PATIENT NOT FASTINGPERFORMED BY: [employer]Spot[employer] 9691470 [facility] [id number] BY: [address] [id number] Uric Acid, Serum 8.5 mg/dL (Abnormal) Range: 2.5-7.1 Comments: Therapeutic target for gout patients: <6.0 :42 Metabolic Panel, Comments: PATIENT NOT FASTINGPERFORMED BY: [facility] [place] 9691470 [facility] [id number] BY: [address] [id number] Comprehensive (33875) ALT (SGPT) <5 [iU]/L (Normal) Range: 0-32 Comments: Verified by repeat analysis AST (SGOT) 27 [iU]/L (Normal) Range: 0-40 Alkaline Phosphatase, S 49 [iU]/L (Normal) Range: 39-117 Bilirubin, Total 0.4 mg/dL (Normal) Range: 0.0-1.2 A/G Ratio 1.1 (Abnormal) Range: 1.2-2.2 Globulin, Total 3.9 g/dL (Normal) Range: 1.5-4.5 Albumin, Serum 4.3 g/dL (Normal) Range: 3.6-4.8 Protein, Total, Serum 8.2 g/dL (Normal) Range: 6.0-8.5 Calcium, Serum 9.1 mg/dL (Normal) Range: 8.7-10.3 Carbon Dioxide, Total 19 mmol/L (Normal) Range: 18-29 Chloride, Serum 100 mmol/L (Normal) Range: 96-106 Potassium, Serum 4.6 mmol/L (Normal) Range: 3.5-5.2 Sodium, Serum 139 mmol/L (Normal) Range: 134-144 BUN/Creatinine Ratio 34 (Abnormal) Range: 12-28 eGFR If Africn Am 113 mL/min/1.73 (Normal) eGFR If NonAfricn Am 98 mL/min/1.73 (Normal) Creatinine, Serum 0.58 mg/dL (Normal) Range: 0.57-1.00 BUN 20 mg/dL (Normal) Range: 8-27 Glucose, Serum 182 mg/dL (Abnormal) Range: 65-99 :42 MICROALBUMIN: CREATININE Comments: PATIENT NOT FASTINGPERFORMED BY: [employer] [facility] [id number] BY: [employer] [id number] RATIO (46262) AND (97413) Microalb/Creat Ratio 1390.9 {mg/g_creat} (Abnormal) Range: 0.0-30.0 Microalbumin, Urine 948.6 ug/mL (Normal) Comments: Results confirmed ondilution. Creatinine, Urine 68.2 mg/dL (Normal) :42 URINALYSIS (68885) Comments: PATIENT NOT FASTINGPERFORMED BY: [facility]udMetrixAtlantic Rehabilitation InstituteFbngww8098 [facility] [id number] BY: [facility] [id number] Microscopic Examination See below: (Normal) Comments: Microscopic was indicated and was performed. Nitrite, Urine Negative (Normal) Urobilinogen,Semi-Qn 0.2 mg/dL (Normal) Range: 0.2-1.0 Bilirubin Negative (Normal) Occult Blood 3+ (Abnormal) Ketones Negative (Normal) Glucose Negative (Normal) Protein 3+ (Abnormal) WBC Esterase Negative (Normal) Appearance Clear (Normal) Urine-Color Yellow (Normal) pH 6.0 (Normal) Range: 5.0-7.5 Specific Upton 1.019 (Normal) Range: 1.005-1.030 64-Gnw-37814:42 CBC, Platelets & Auto Comments: PATIENT NOT FASTINGPERFORMED BY: CB [facility] Egvvht2087 [facility] [id number] BY: BN [facility] [address] [id number] Diff (11017) Immature Grans (Abs) 0.0 {x10E3/uL} (Normal) Range: 0.0-0.1 Immature Granulocytes 0 % (Normal) Baso (Absolute) 0.0 {x10E3/uL} (Normal) Range: 0.0-0.2 Eos (Absolute) 0.1 {x10E3/uL} (Normal) Range: 0.0-0.4 Monocytes(Absolute) 0.5 {x10E3/uL} (Normal) Range: 0.1-0.9 Lymphs (Absolute) 2.1 {x10E3/uL} (Normal) Range: 0.7-3.1 Neutrophils (Absolute) 2.6 {x10E3/uL} (Normal) Range: 1.4-7.0 Basos 1 % (Normal) Eos 2 % (Normal) Monocytes 9 % (Normal) Lymphs 40 % (Normal) Neutrophils 48 % (Normal) Platelets 187 {x10E3/uL} (Normal) Range: 150-379 RDW 15.8 % (Abnormal) Range: 12.3-15.4 MCHC 31.2 g/dL (Abnormal) Range: 31.5-35.7 MCH 28.2 pg (Normal) Range: 26.6-33.0 MCV 91 fL (Normal) Range: 79-97 Hematocrit 35.6 % (Normal) Range: 34.0-46.6 Hemoglobin 11.1 g/dL (Normal) Range: 11.1-15.9 RBC 3.93 {x10E6/uL} (Normal) Range: 3.77-5.28 WBC 5.3 {x10E3/uL} (Normal) Range: 3.4-10.8 :32 Rapid Strep Test, Office (20708) Rapid Strep Test, Office Negative (Normal) :28 Microscopic Examination Comments: PATIENT WAS FASTINGPERFORMED BY: [facility] Bvsitr56[address]ados RoadDublin [place] [id number] Bacteria Few (Normal) Mucus Threads Present (Normal) Epithelial Cells (non renal) 0-10 {/hpf} (Normal) Range: 0 - 10 RBC 0-2 {/hpf} (Normal) Range: 0 - 2 WBC 0-5 {/hpf} (Normal) Range: 0 - 5 :28 CALCIFIDIOL (62154) VIT D 25 Comments: PATIENT WAS FASTINGPERFORMED BY: [employer] [facility] Hospitalbl[facility] [place] [id number] Vitamin D, 25-Hydroxy 42.0 ng/mL (Normal) Range: 30.0-100.0 Comments: Vitamin D deficiency has been defined by the [place] ofUniversity [facility]als [facility] Medical Centercine and an Endocrine Society practice guideline as alevel of serum 25-OH vitamin D less than 20 ng/mL (1,2).The Endocrine Society went on to further define vitamin Dinsufficiency as a level between 21 and 29 ng/mL (2).1. IOM ([place] of Medicine). 2010. Dietary reference intakes for calcium and D. [place]: The National Academies Press.2. Swathi MF, Alexandra NC, Judy OLMEDO, et al. Evaluation, treatment, and prevention of vitamin D deficiency: an Endocrine Society clinical practice guideline. JCEM. 2010; 96(7):1911-30. :28 TSH (67762) Comments: PATIENT WAS FASTINGPERFORMED BY: [employer] [address]lf[address] [facility] HospitalDublin [place] [id number] TSH 1.360 {uIU/mL} (Normal) Range: 0.450-4.500 :28 URINALYSIS, W/ MICRO (76107) Comments: PATIENT WAS FASTINGPERFORMED BY: [facility] Rgreqb4[address] [facility] [id number] Microscopic Examination See below: (Normal) Comments: Microscopic was indicated and was performed. Nitrite, Urine Negative (Normal) Urobilinogen,Semi-Qn 0.2 mg/dL (Normal) Range: 0.2-1.0 Bilirubin Negative (Normal) Occult Blood Trace (Abnormal) Ketones Negative (Normal) Glucose Negative (Normal) Protein 4+ (Abnormal) WBC Esterase Negative (Normal) Appearance Clear (Normal) Urine-Color Yellow (Normal) pH 6.0 (Normal) Range: 5.0-7.5 Specific [place] 1.019 (Normal) Range: 1.005-1.030 :28 MICROALBUMIN: CREATININE RATIO Comments: PATIENT WAS FASTINGPERFORMED BY: [facility] Mgchbg[address] [facility] [id number] (82121) AND (33783) Microalb/Creat Ratio 2972.2 {mg/g_creat} (Abnormal) Range: 0.0-30.0 Microalbumin, Urine 2264.8 ug/mL (Normal) Comments: Results confirmed ondilution. Creatinine, Urine 76.2 mg/dL (Normal) :28 METABOLIC PANEL, COMPREHENSIVE Comments: PATIENT WAS FASTINGPERFORMED BY: [facility] Mrqosw8553 [facility] [id number] (26268) ALT (SGPT) <5 [iU]/L (Normal) Range: 0-32 Comments: Verified by repeat analysis AST (SGOT) 30 [iU]/L (Normal) Range: 0-40 Alkaline Phosphatase, S 45 [iU]/L (Normal) Range: 39-117 Bilirubin, Total 0.4 mg/dL (Normal) Range: 0.0-1.2 A/G Ratio 1.3 (Normal) Range: 1.1-2.5 Globulin, Total 3.6 g/dL (Normal) Range: 1.5-4.5 Albumin, Serum 4.5 g/dL (Normal) Range: 3.6-4.8 Protein, Total, Serum 8.1 g/dL (Normal) Range: 6.0-8.5 Calcium, Serum 9.5 mg/dL (Normal) Range: 8.7-10.3 Carbon Dioxide, Total 21 mmol/L (Normal) Range: 18-29 Chloride, Serum 98 mmol/L (Normal) Range: 97-108 Comments: Effective June 15, 2016 the reference interval for Chloride, Serum will be changing to: 97 - 106 Potassium, Serum 5.2 mmol/L (Normal) Range: 3.5-5.2 Comments: Effective June 15, 2016 the reference interval for Potassium, Serum will be changing to: 0 - 7 days 3.7 - 5.2 8 - 30 days 3.7 - 6.4 1 - 6 months 3.8 - 6.0 7 months - 1 year 3.8 - 5.3 >1 year 3.5 - 5.2 Sodium, Serum 140 mmol/L (Normal) Range: 134-144 Comments: Effective June 15, 2016 the reference interval for Sodium, Serum will be changing to: 136 - 144 BUN/Creatinine Ratio 30 (Abnormal) Range: 11-26 eGFR If Africn Am 118 mL/min/1.73 (Normal) eGFR If NonAfricn Am 103 mL/min/1.73 (Normal) Creatinine, Serum 0.50 mg/dL (Abnormal) Range: 0.57-1.00 BUN 15 mg/dL (Normal) Range: 8-27 Glucose, Serum 103 mg/dL (Abnormal) Range: 65-99 [id number] LIPID PANEL ([id number]) Comments: PATIENT WAS FASTINGPERFORMED BY: [facility] [facility] [id number] VLDL Cholesterol Luis VLDLCH mg/dL (Normal) Range: 5-40 Comments: The calculation for the VLDL cholesterol is not valid whentriglyceride level is >400 mg/dL.Triglyceride result indicated is too high for an accurate LDLcholesterol estimation. HDL Cholesterol 37 mg/dL (Abnormal) Comments: According to ATP-III Guidelines, HDL-C >59 mg/dL is considered anegative risk factor for CHD. Triglycerides 505 mg/dL (Abnormal) Range: 0-149 Cholesterol, Total 157 mg/dL (Normal) Range: 100-199 :28 CBC W/AUTO DIFF WBC ([id number]) Comments: PATIENT WAS FASTINGPERFORMED BY: [id number] [place] [id number] Immature Grans (Abs) 0.0 {x10E3/uL} (Normal) Range: 0.0-0.1 Immature Granulocytes 0 % (Normal) Baso (Absolute) 0.0 {x10E3/uL} (Normal) Range: 0.0-0.2 Eos (Absolute) 0.1 {x10E3/uL} (Normal) Range: 0.0-0.4 Monocytes(Absolute) 0.4 {x10E3/uL} (Normal) Range: 0.1-0.9 Lymphs (Absolute) 2.5 {x10E3/uL} (Normal) Range: 0.7-3.1 Neutrophils (Absolute) 2.4 {x10E3/uL} (Normal) Range: 1.4-7.0 Basos 1 % (Normal) Eos 2 % (Normal) Monocytes 8 % (Normal) Lymphs 46 % (Normal) Neutrophils 43 % (Normal) Platelets 195 {x10E3/uL} (Normal) Range: 150-379 RDW 15.1 % (Normal) Range: 12.3-15.4 MCHC 33.3 g/dL (Normal) Range: 31.5-35.7 MCH 29.2 pg (Normal) Range: 26.6-33.0 MCV 88 fL (Normal) Range: 79-97 Hematocrit 39.3 % (Normal) Range: 34.0-46.6 Hemoglobin 13.1 g/dL (Normal) Range: 11.1-15.9 RBC 4.49 {x10E6/uL} (Normal) Range: 3.77-5.28 WBC 5.4 {x10E3/uL} (Normal) Range: 3.4-10.8 :05 HgA1C , Office (08850) HgA1C , Office 6.2 % (Normal) Range: 4.6 - 7.1 :05 Blood Glucose , Office (18223) Blood Glucose , Office 119 (Normal) :09 Basic Metabolic Profile (BMP) Comments: [facility] [address] [place], [place], [id number] GAP 10 (Normal) Range: 5-15 CO2 26.0 mmol/L (Normal) Range: 21.0-32.0 CL 104 mmol/L (Normal) Range: 98-107 K 4.2 mmol/L (Normal) Range: 3.5-5.1 NA 140 mmol/L (Normal) Range: 136-145 CA 9.5 mg/dL (Normal) Range: 8.5-10.1 BUN/CRE 26.1 {RATIO} (Abnormal) Range: 10-20 EST GFR - AA 136 mL/min (Normal) Comments: GFR Calc EST GFR 113 mL/min (Normal) Comments: Non- GFR Calc CREAT,SERUM 0.57 mg/dL (Normal) Range: 0.55-1.20 Comments: The validity of the calculated GFR AND GFRAA in patients over70 years has not been determined. Clinical correlation isessential. BUN 15 mg/dL (Normal) Range: 7-18 GLU 123 mg/dL (Abnormal) Range: 70-110 Comments: Fasting Glucose result from 110 to <126 mg/dLsuggests IMPAIRED HOMEOSTASIS per A.D.A. criteria. 92-Bsr-[id number]:21 Basic Metabolic Profile (BMP) Comments: [facility] [address] [facility] [address] [place], [place], [id number] GAP 6 (Normal) Range: 5-15 CO2 28.0 mmol/L (Normal) Range: 21.0-32.0 CL 107 mmol/L (Normal) Range: 98-107 K 4.3 mmol/L (Normal) Range: 3.5-5.1 NA 141 mmol/L (Normal) Range: 136-145 CA 8.7 mg/dL (Normal) Range: 8.5-10.1 BUN/CRE 30.4 {RATIO} (Abnormal) Range: 10-20 EST GFR - AA 132 mL/min (Normal) Comments: GFR Calc EST GFR 109 mL/min (Normal) Comments: Non- GFR Calc CREAT,SERUM 0.59 mg/dL (Normal) Range: 0.55-1.20 Comments: The validity of the calculated GFR AND GFRAA in patients over70 years has not been determined. Clinical correlation isessential. BUN 18 mg/dL (Normal) Range: 7-18 GLU 123 mg/dL (Abnormal) Range: 70-110 Comments: Fasting Glucose result from 110 to <126 mg/dLsuggests IMPAIRED HOMEOSTASIS per A.D.A. criteria. :21 Calcium Ionized Comments: [facility] (refer to report for specific site)refer to report for address [place] [address] 5.1 mg/dL (Normal) Range: 4.5-5.6 Comments: Performed at: - [address] [id number] Director: Hernesto Mclean PhD, Phone: [phone] [id number]-Dgb-[id number]:21 Protein Electro.Ur-Random Comments: [facility] (refer to report for specific site)refer to report for address and phone number M-SPIKE,U (Normal) Comments: NOT OBSERVED GAMMA GLOB,U 6.5 % (Normal) BETA GLOB,U 9.7 % (Normal) OACBW-1-NDXC,U 2.6 % (Normal) VQZIG-5-GUEJ,U 2.8 % (Normal) ALBUMIN,UR 78.4 % (Normal) PROTEIN,UR 121.4 mg/dL (Abnormal) Range: 0.0-15.0 :21 Protein Electroph, S Comments: [facility] (refer to report for specific site)refer to report for address and phone number NOTE Comment (Normal) Comments: Protein electrophoresis scan will follow via computer,mail, or laboratory mechanical technician delivery. NOTE: Comment (Normal) Comments: The SPE pattern appears essentially unremarkable. Evidenceof monoclonal protein is not apparent. INTERPRETATION Comment (Normal) Comments: Protein electrophoresis scan will follow via computer,mail, or laboratory mechanical technician delivery. A/G RATIO 1.0 (Normal) Range: 0.7-2.0 GLOBULIN, TOTAL 3.8 g/dL (Normal) Range: 2.0-4.5 M-SPIKE (Normal) Comments: NOT OBSERVED GAMMA GLOBULIN 1.5 g/dL (Normal) Range: 0.5-1.6 BETA GLOBULIN 1.0 g/dL (Normal) Range: 0.6-1.3 ALPHA-2 GLOBUL 1.1 g/dL (Normal) Range: 0.4-1.2 ALPHA-1 GLOBUL 0.2 g/dL (Normal) Range: 0.1-0.4 ALBUMIN 3.7 g/dL (Normal) Range: 3.2-5.6 PROTEIN,TOTAL 7.5 g/dL (Normal) Range: 6.0-8.5 :28 CBC W/Diff, Automated Comments: [facility] [address] [place], [place], [phone] Absolute Lymph 1.84 {X10_3/ul} (Normal) Range: 0.83-4.51 Absolute Neut 1.7 {X10_3/uL} (Abnormal) Range: 2.0-7.7 IM GRAN % 0.200 % (Normal) Range: 0.0-0.9 Comments: IG% - Immature Granulocytes (promyelocytes, myelocytes andmetamyelocytes) > 1% indicates that a LEFT SHIFT is Present. BASO% 0.5 % (Normal) Range: 0-1 EO% 1.2 % (Normal) Range: 0-5 MONO% 9.2 % (Normal) Range: 0-10 LY% 45.7 % (Abnormal) Range: 19-41 NEUT% 43.2 % (Abnormal) Range: 47-70 MPV 9.9 fL (Normal) Range: 6.2-12.0 PLT 160 K/mm3 (Normal) Range: 150-450 RDW SD 44.1 fL (Abnormal) Range: 35.1-43.9 RDW CV 13.6 % (Normal) Range: 11.6-14.6 MCHC 32.5 {g/gl} (Normal) Range: 32-36 MCH 29.2 pg (Normal) Range: 27.0-32.0 MCV 89.9 fL (Normal) Range: 81-99 HCT 42.5 % (Normal) Range: 37-47 HGB 13.8 g/dL (Normal) Range: 12.0-15.0 RBC 4.73 {M/mm3} (Normal) Range: 4.2-5.4 WBC 4.0 K/mm3 (Abnormal) Range: 4.4-11.0 :28 Comprehensive Metabolic Profil Comments: [facility] [address] [place], [place], [phone] GAP 10 (Normal) Range: 5-15 CO2 28.0 mmol/L (Normal) Range: 21.0-32.0 CL 103 mmol/L (Normal) Range: 98-107 K 4.1 mmol/L (Normal) Range: 3.5-5.1 NA 141 mmol/L (Normal) Range: 136-145 T BILI 0.30 mg/dL (Normal) Range: 0.20-1.00 ALT 9 U/L (Abnormal) Range: 12-78 ALK P 44 U/L (Abnormal) Range: 50-136 AST 33 U/L (Normal) Range: 15-37 CA 8.8 mg/dL (Normal) Range: 8.5-10.1 A/G 0.9 {RATIO} (Normal) Range: 0.9-2.4 GLOB 4.7 g/dL (Abnormal) Range: 2.3-3.5 ALB 4.0 g/dL (Normal) Range: 3.4-5.0 T PROT 8.7 g/dL (Abnormal) Range: 6.4-8.2 BUN/CRE 22.8 {RATIO} (Abnormal) Range: 10-20 EST GFR - AA 138 mL/min (Normal) Comments: GFR Calc EST GFR 114 mL/min (Normal) Comments: Non- GFR Calc CREAT,SERUM 0.57 mg/dL (Normal) Range: 0.55-1.20 Comments: The validity of the calculated GFR AND GFRAA in patients over70 years has not been determined. Clinical correlation isessential. BUN 13 mg/dL (Normal) Range: 7-18 GLU 116 mg/dL (Abnormal) Range: 70-110 Comments: Fasting Glucose result from 110 to <126 mg/dLsuggests IMPAIRED HOMEOSTASIS per A.D.A. criteria. :28 Hemoglobin A1c Comments: [facility] [address] [place], [address] HGB A1C 6.3 % (Normal) Range: 4.2-6.3 :28 Lipid Profile Comments: [facility] [address] [place], [address] VLDL Test not performed mg/dL (Normal) Range: 5-40 LDL Test not performed mg/dL (Normal) Range: 0-130 HDL 36 mg/dL (Abnormal) Comments: Reference Range HDL <40 mg/dL Low HDL Cholesterol HDL >or= 60 mg/dL High HDL Cholesterol TRIG 452 mg/dL (Abnormal) Comments: TRIGLYCERIDE IS GREATER THAN 400 mg/dL.LDL RESULT IS INVALID AND WILL NOT BE REPORTED.Serum Triglycerides Reference Interval Normal <150 mg/dL Bord aakash high 150 - 199 mg/dL High 200 - 499 mg/dL Very High > or = 500 mg/dL CHOL 139 mg/dL (Normal) Comments: <200 mg/dL Desirable 200-240 mg/dL Borderline >240 mg/dL High Risk :28 Microalb:Creat Ratio,Random UR Comments: [facility] [address] [place], [place], [phone] MALB:CREAT 6612.5 {mg/g_CRE} (Abnormal) MICROALBUMIN,UR 2850.0 mg/L (Normal) UR CREAT 43.10 mg/dL (Normal) :28 Thyroid Stim Hormone (TSH) Comments: [facility] [address] [place], [address] TSH 2.14 {uIU/mL} (Normal) Range: 0.358-3.74 :28 Urinalysis, Complete Comments: How was Urine Obtained? [facility] [address] [place], [address] MUCUS, URINE 0 SEEN {/hpf} (Normal) BACTERIA 1+ {/hpf} (Normal) SQUAM EPI 0-5 SEEN {/hpf} (Normal) Range: 5-10 RBC-UA 0-5 SEEN {/hpf} (Normal) Range: 0-5 WBC 10-25 SEEN {/hpf} (Normal) Range: 0-5 LEUK ESTERASE 100 /ul (Abnormal) OCCULT BLOOD-UR 25 /ul (Abnormal) NITRITE UR Negative (Normal) UROBILI Normal mg/dL (Normal) PROT DIPSTX 500 mg/dL (Abnormal) pH UR 7.0 (Normal) Range: 5.0 - 8.0 SP.GR. DIPSTX 1.010 (Normal) Range: 1.002-1.030 KETONE UR Negative mg/dL (Normal) BILIRUBIN URINE Negative mg/dL (Normal) GLUCOSE, UR Normal mg/dL (Normal) CLARITY Sl. Cloudy (Normal) COLOR Yellow (Normal) :43 PT (Prothrobim Time) Comments: PATIENT NOT FASTINGPERFORMED BY: [place] [id number] [facility] [id number] Information: [id number] ORDER ([id number]) Prothrombin Time 14.9 {sec} (Abnormal) Range: 9.1-12.0 INR 1.4 (Abnormal) Range: 0.8-1.2 Comments: Reference interval is for non-anticoagulated patients. . Suggested INR therapeutic range for Vitamin K anta gonist therapy: Standard Dose (moderate intensity therapeutic range): 2.0 - 3.0 Higher intensity therapeutic range 2.5 - 3.5 :59 PT (Prothrobim Time) Comments: PATIENT NOT FASTINGPERFORMED BY: [place] [id number] [facility] [id number] Information: [id number] (97322) Prothrombin Time 37.7 {sec} (Abnormal) Range: 9.1-12.0 INR 3.4 (Abnormal) Range: 0.8-1.2 Comments: Reference interval is for non-anticoagulated patients. . Suggested INR therapeutic range for Vitamin K anta gonist therapy: Standard Dose (moderate intensity therapeutic range): 2.0 - 3.0 Higher intensity therapeutic range 2.5 - 3.5 :08 HgA1C , Office (75616) HgA1C , Office 6.2 % (Normal) Range: 4.6 - 7.1 :08 Blood Glucose , Office (75292) Blood Glucose , Office 126 (Normal) :42 Microscopic Examination Comments: PATIENT WAS FASTINGPERFORMED BY: [place] [id number] [facility] [id number] Bacteria Few (Normal) Mucus Threads Present (Normal) Epithelial Cells (non renal) 0-10 {/hpf} (Normal) Range: 0 - 10 RBC 0-2 {/hpf} (Normal) Range: 0 - 2 WBC 0-5 {/hpf} (Normal) Range: 0 - 5 :42 MICROALBUMIN: CREATININE RATIO Comments: PATIENT WAS FASTINGPERFORMED BY: [facility] InstituteFuykun9610 [facility] [id number] (93487) AND (15858) Microalb/Creat Ratio 1877.3 {mg/g_creat} (Abnormal) Range: 0.0-30.0 Microalbumin, Urine 1118.9 ug/mL (Abnormal) Range: 0.0-17.0 Creatinine, Urine 59.6 mg/dL (Normal) Range: 15.0-278.0 :42 URINALYSIS (31673) Comments: PATIENT WAS FASTINGPERFORMED BY: [facility] HealthcareIn[facility] CenterDsffdd8627 [facility] [id number] Microscopic Examination See below: (Normal) Comments: Microscopic was indicated and was performed. Nitrite, Urine Negative (Normal) Urobilinogen,Semi-Qn 0.2 mg/dL (Normal) Range: 0.0-1.9 Bilirubin Negative (Normal) Occult Blood Negative (Normal) Ketones Negative (Normal) Glucose Negative (Normal) Protein 2+ (Abnormal) WBC Esterase Negative (Normal) Appearance Clear (Normal) Urine-Color Yellow (Normal) pH 6.0 (Normal) Range: 5.0-7.5 Specific [place]pton 1.020 (Normal) Range: 1.005-1.030 :42 TSH (58721) Comments: PATIENT WAS FASTINGPERFORMED BY: [facility] InstituteLuwtyd2649 [facility] [id number] TSH 1.590 {uIU/mL} (Normal) Range: 0.450-4.500 :42 CBC, Platelets & Auto Comments: PATIENT WAS FASTINGPERFORMED BY: [facility] [facility] [id number] Information: [id number] Diff (99657) Immature Grans (Abs) 0.0 {x10E3/uL} (Normal) Range: 0.0-0.1 Immature Granulocytes 0 % (Normal) Baso (Absolute) 0.0 {x10E3/uL} (Normal) Range: 0.0-0.2 Eos (Absolute) 0.2 {x10E3/uL} (Normal) Range: 0.0-0.4 Monocytes(Absolute) 0.4 {x10E3/uL} (Normal) Range: 0.1-0.9 Lymphs (Absolute) 2.4 {x10E3/uL} (Normal) Range: 0.7-3.1 Neutrophils (Absolute) 2.3 {x10E3/uL} (Normal) Range: 1.4-7.0 Basos 1 % (Normal) Eos 4 % (Normal) Monocytes 7 % (Normal) Lymphs 45 % (Normal) Neutrophils 43 % (Normal) Platelets 170 {x10E3/uL} (Normal) Range: 150-379 RDW 15.0 % (Normal) Range: 12.3-15.4 MCHC 33.3 g/dL (Normal) Range: 31.5-35.7 MCH 28.9 pg (Normal) Range: 26.6-33.0 MCV 87 fL (Normal) Range: 79-97 Hematocrit 40.3 % (Normal) Range: 34.0-46.6 Hemoglobin 13.4 g/dL (Normal) Range: 11.1-15.9 RBC 4.63 {x10E6/uL} (Normal) Range: 3.77-5.28 WBC 5.4 {x10E3/uL} (Normal) Range: 3.4-10.8 20-Oqo-448932:42 Metabolic Panel, Comprehensive Comments: PATIENT WAS FASTINGPERFORMED BY: [facility] [facility] [id number] (44039) ALT (SGPT) 3 [iU]/L (Normal) Range: 0-32 AST (SGOT) 37 [iU]/L (Normal) Range: 0-40 Alkaline Phosphatase, S 44 [iU]/L (Normal) Range: 39-117 Bilirubin, Total 0.3 mg/dL (Normal) Range: 0.0-1.2 A/G Ratio 1.4 (Normal) Range: 1.1-2.5 Globulin, Total 3.3 g/dL (Normal) Range: 1.5-4.5 Albumin, Serum 4.6 g/dL (Normal) Range: 3.6-4.8 Protein, Total, Serum 7.9 g/dL (Normal) Range: 6.0-8.5 Calcium, Serum 9.9 mg/dL (Normal) Range: 8.6-10.2 Carbon Dioxide, Total 23 mmol/L (Normal) Range: 18-29 Chloride, Serum 96 mmol/L (Abnormal) Range: 97-108 Potassium, Serum 4.2 mmol/L (Normal) Range: 3.5-5.2 Sodium, Serum 139 mmol/L (Normal) Range: 134-144 BUN/Creatinine Ratio 34 (Abnormal) Range: 11-26 eGFR If Africn Am 122 mL/min/1.73 (Normal) eGFR If NonAfricn Am 106 mL/min/1.73 (Normal) Creatinine, Serum 0.47 mg/dL (Abnormal) Range: 0.57-1.00 BUN 16 mg/dL (Normal) Range: 8-27 Glucose, Serum 94 mg/dL (Normal) Range: 65-99 45-Qxb-224700:42 Lipid Panel (76243) Comments: PATIENT WAS FASTINGPERFORMED BY: Pikimal70 [facility]RAtrium Health [id number] LDL/HDL Ratio 0.7 {ratio_units} (Normal) Range: 0.0-3.2 LDL Cholesterol Calc 25 mg/dL (Normal) Range: 0-99 VLDL Cholesterol Luis 77 mg/dL (Abnormal) Range: 5-40 HDL Cholesterol 36 mg/dL (Abnormal) Comments: According to ATP-III Guidelines, HDL-C >59 mg/dL is considered anegative risk factor for CHD. Triglycerides 387 mg/dL (Abnormal) Range: 0-149 Cholesterol, Total 138 mg/dL (Normal) Range: 100-199 66-Zyk-190720:42 CALCIFEDIOL (22382) Comments: PATIENT WAS FASTINGPERFORMED BY: [facility] Solutions[facility] [id number] Vitamin D, 25-Hydroxy 34.5 ng/mL (Normal) Range: 30.0-100.0 Comments: Vitamin D deficiency has been defined by the [place] ofMedicine and an Endocrine Society practice guideline as alevel of serum 25-OH vitamin D less than 20 ng/mL (1,2).The Endocrine Society went on to further define vitamin Dinsufficiency as a level between 21 and 29 ng/mL (2).1. IOM ([place] of Medicine). 2010. Dietary reference intakes for calcium and D. [place]: The National Academies Press.2. Swathi MF, Alexandra MCGILL, Judy OLMEDO, et al. Evaluation, treatment, and prevention of vitamin D deficiency: an Endocrine Society clinical practice guideline. JCEM. 2010; 96(7):1911-30. 67-Jai-289065:08 PT (Prothrobim Time) Comments: PATIENT NOT FASTINGPERFORMED BY: happn [facility] [address]estii[address] BOLETUS NETWORKCone Health Annie Penn Hospitalin [place] [id number] Information: [id number] (26742) Prothrombin Time 19.4 {sec} (Abnormal) Range: 9.1-12.0 INR 1.9 (Abnormal) Range: 0.8-1.2 Comments: Reference interval is for non-anticoagulated patients. . Suggested INR therapeutic range for Vitamin K anta gonist therapy: Standard Dose (moderate intensity therapeutic range): 2.0 - 3.0 Higher intensity therapeutic range 2.5 - 3.5 36-Vsd-722111:19 Microscopic Examination Comments: PATIENT NOT FASTINGPERFORMED BY: [facility] Mwenqp[address]81 [address] BOLET[place] NETWORKblin [place] [id number] Bacteria Few (Normal) Mucus Threads Present (Normal) Epithelial Cells (non renal) 0-10 {/hpf} (Normal) Range: 0 - 10 RBC >30 {/hpf} (Abnormal) Range: 0 - 3 WBC 0-5 {/hpf} (Normal) Range: 0 - 5 11-Yep-742313:26 TSH (57695) Comments: PATIENT NOT FASTINGPERFORMED BY: [facility] [address]wwrp[address] BOLETUS NETWORKDublin [place] [id number] TSH 1.050 {uIU/mL} (Normal) Range: 0.450-4.500 34-Mxf-363698:26 URINALYSIS, W/ MICRO (23303) Comments: PATIENT NOT FASTINGPERFORMED BY: [facility] Zgshlh7564 Granados RoadDublin [place] [id number] Microscopic Examination See below: (Normal) Nitrite, Urine Negative (Normal) Urobilinogen,Semi-Qn 0.2 mg/dL (Normal) Range: 0.0-1.9 Bilirubin Negative (Normal) Occult Blood 3+ (Abnormal) Ketones Negative (Normal) Glucose Negative (Normal) Protein 1+ (Abnormal) WBC Esterase Negative (Normal) Appearance Clear (Normal) Urine-Color Yellow (Normal) pH 5.5 (Normal) Range: 5.0-7.5 Specific [place] 1.018 (Normal) Range: 1.005-1.030 18-Gom-323631:26 MICROALBUMIN: CREATININE RATIO Comments: PATIENT NOT FASTINGPERFORMED BY: [employer] Kpjxxh[address]37 [address] [facility] HospitalNullPointerAtrium Health [id number] (71553) AND (88040) Microalb/Creat Ratio 524.7 {mg/g_creat} (Abnormal) Range: 0.0-30.0 Microalbumin, Urine 342.1 ug/mL (Abnormal) Range: 0.0-17.0 Creatinine, Urine 65.2 mg/dL (Normal) Range: 15.0-278.0 23-Hgn-554616:26 METABOLIC PANEL, COMPREHENSIVE Comments: PATIENT NOT FASTINGPERFORMED BY: [employer] Bnxtbm[address]162 [address] [facility] [id number] (76998) ALT (SGPT) <5 [iU]/L (Normal) Range: 0-32 Comments: Verified by repeat analysis AST (SGOT) 24 [iU]/L (Normal) Range: 0-40 Alkaline Phosphatase, S 37 [iU]/L (Abnormal) Range: 39-117 Bilirubin, Total 0.3 mg/dL (Normal) Range: 0.0-1.2 A/G Ratio 1.4 (Normal) Range: 1.1-2.5 Globulin, Total 3.3 g/dL (Normal) Range: 1.5-4.5 Albumin, Serum 4.5 g/dL (Normal) Range: 3.6-4.8 Protein, Total, Serum 7.8 g/dL (Normal) Range: 6.0-8.5 Calcium, Serum 9.5 mg/dL (Normal) Range: 8.6-10.2 Carbon Dioxide, Total 21 mmol/L (Normal) Range: 19-28 Chloride, Serum 102 mmol/L (Normal) Range: 97-108 Potassium, Serum 4.0 mmol/L (Normal) Range: 3.5-5.2 Sodium, Serum 139 mmol/L (Normal) Range: 134-144 BUN/Creatinine Ratio 36 (Abnormal) Range: 11-26 eGFR If Africn Am 125 mL/min/1.73 (Normal) eGFR If NonAfricn Am 108 mL/min/1.73 (Normal) Creatinine, Serum 0.45 mg/dL (Abnormal) Range: 0.57-1.00 BUN 16 mg/dL (Normal) Range: 8-27 Glucose, Serum 74 mg/dL (Normal) Range: 65-99 55-Gjl-482952:26 LIPID PANEL (81103) Comments: PATIENT NOT FASTINGPERFORMED BY: [facility] InstituteMsussf20[address] [facility] [id number] LDL/HDL Ratio 1.1 {ratio_units} (Normal) Range: 0.0-3.2 LDL Cholesterol Calc 46 mg/dL (Normal) Range: 0-99 VLDL Cholesterol Luis 72 mg/dL (Abnormal) Range: 5-40 HDL Cholesterol 41 mg/dL (Normal) Comments: According to ATP-III Guidelines, HDL-C >59 mg/dL is considered anegative risk factor for CHD. Triglycerides 362 mg/dL (Abnormal) Range: 0-149 Cholesterol, Total 159 mg/dL (Normal) Range: 100-199 47-Qkv-759832:26 CBC WITH MANUAL DIFF Comments: PATIENT NOT FASTINGPERFORMED BY: [facility] InstituteNfdswm5919 [facility] [id number] Information: [id number] (76803) Immature Grans (Abs) 0.0 {x10E3/uL} (Normal) Range: 0.0-0.1 Immature Granulocytes 0 % (Normal) Range: 0-2 Baso (Absolute) 0.0 {x10E3/uL} (Normal) Range: 0.0-0.2 Eos (Absolute) 0.1 {x10E3/uL} (Normal) Range: 0.0-0.4 Monocytes(Absolute) 0.4 {x10E3/uL} (Normal) Range: 0.1-0.9 Lymphs (Absolute) 2.0 {x10E3/uL} (Normal) Range: 0.7-3.1 Neutrophils (Absolute) 1.8 {x10E3/uL} (Normal) Range: 1.4-7.0 Basos 1 % (Normal) Range: 0-3 Eos 3 % (Normal) Range: 0-5 Monocytes 8 % (Normal) Range: 4-12 Lymphs 46 % (Normal) Range: 14-46 Neutrophils 42 % (Normal) Range: 40-74 Platelets 162 {x10E3/uL} (Normal) Range: 155-379 RDW 14.1 % (Normal) Range: 12.3-15.4 MCHC 32.6 g/dL (Normal) Range: 31.5-35.7 MCH 28.8 pg (Normal) Range: 26.6-33.0 MCV 88 fL (Normal) Range: 79-97 Hematocrit 39.3 % (Normal) Range: 34.0-46.6 Hemoglobin 12.8 g/dL (Normal) Range: 11.1-15.9 RBC 4.45 {x10E6/uL} (Normal) Range: 3.77-5.28 WBC 4.3 {x10E3/uL} (Normal) Range: 3.4-10.8 00-Puv-682847:26 Vitamin D Hydroxy (45573) Comments: PATIENT NOT FASTINGPERFORMED BY: [facility]CoAtl[facility] Rehabilitation InstituteDgroqu4[address] [facility] [id number] Vitamin D, 25-Hydroxy 37.9 ng/mL (Normal) Range: 30.0-100.0 Comments: Vitamin D deficiency has been defined by the [place] ofUniversity Hospitals Beachwood Medical Centercine and an Endocrine Society practice guideline as alevel of serum 25-OH vitamin D less than 20 ng/mL (1,2).The Endocrine Society went on to further define vitamin Dinsufficiency as a level between 21 and 29 ng/mL (2).1. IOM ([place] of Medicine). 2010. Dietary reference intakes for calcium and D. [place]: The National Academies Press.2. Swathi MF, Alexandra MCGILL, Judy OLMEDO, et al. Evaluation, treatment, and prevention of vitamin D deficiency: an Endocrine Society clinical practice guideline. JCEM. 2010; 96(7):1911-30. 31-Fvr-89128:01 HgA1C , Office (73059) HgA1C , Office 5.9 % (Normal) Range: 4.6 - 7.1 :01 Blood Glucose , Office (99628) Blood Glucose , Office 92 (Normal) 21-Cms-201011:07 HgA1C , Office (00740) HgA1C , Office 5.6 % (Normal) Range: 4.6 - 7.1 :07 Blood Glucose , Office (55405) Blood Glucose , Office 79 (Normal) :41 Vitamin D Hydroxy (76539) Comments: PATIENT WAS FASTINGPERFORMED BY: [facility] InstituteYkvcpk3248 [facility] [id number] Vitamin D, 25-Hydroxy 50.7 ng/mL (Normal) Range: 30.0-100.0 Comments: Vitamin D deficiency has been defined by the [place] ofMedicine and an Endocrine Society practice guideline as alevel of serum 25-OH vitamin D less than 20 ng/mL (1,2).The Endocrine Society went on to further define vitamin Dinsufficiency as a level between 21 and 29 ng/mL (2).1. IOM ([place] of Medicine). 2010. Dietary reference intakes for calcium and D. [place]: The National Academies Press.2. Swathi MF, Alexandra [place], Judy OLMEDO, et al. Evaluation, treatment, and prevention of vitamin D deficiency: an Endocrine Society clinical practice guideline. JCEM. 2010; 96(7):1911-30. :41 LIPID PANEL (72431) Comments: PATIENT WAS FASTINGPERFORMED BY: [facility] [facility] [id number] Information: [id number] LDL Cholesterol Calc 81 mg/dL (Normal) Range: 0-99 LDL/HDL Ratio 1.9 {ratio_units} (Normal) Range: 0.0-3.2 HDL Cholesterol 42 mg/dL (Normal) Comments: According to ATP-III Guidelines, HDL-C >59 mg/dL is considered anegative risk factor for CHD. Triglycerides 210 mg/dL (Abnormal) Range: 0-149 VLDL Cholesterol Luis 42 mg/dL (Abnormal) Range: 5-40 Cholesterol, Total 165 mg/dL (Normal) Range: 100-199 14-Evo-455724:47 BILAT SCRN DIGITAL & CAD Radiology Report See Note (Normal) Comments: MAMMOGRAPHY - BILATERAL SCREENING REASON FOR EXAM: Female, 62 years old. Routine annual screeningexamination. PERTINENT HISTORY: Non-contributory. TECHNIQUE: Digital examination. Med iolateral ob lique (MLO) andcraniocaudad (CC) views of both breasts were obtained. CAD: CAD wasperformed on this study. COMPARISON: Comparison is made with prior studies dated October 29ndNovember 10, 2007. FINDI NGS:The breast composition is composed of scattered fibroglandular densities. There are no dominant masses or suspicious calcifications. No other significant abnormalities are identified. There has bee n nosignificant change since the prior study. IMPRESSION:Stable bilateral screening mammogram. Yearly follow-up recommended. (A) ASSESSMENT CATEGORY:BIRADS Category 2: Benign finding(s). A letter r egarding these resultswill be sent to the patient by the facility within 30 days. Approximately 10% of breast cancers are not detected by mammography. Anormal mammogram should not delay biopsy of a cli nically suspiciousabnormality. Signed:Paresh Kebede M.D.July 29, 2012 at 12:51:04 PM [id number] Signed GP/GP If you are the referring physician and would like to consult andry dupree theradiologist who provided this interpretation, please contact Dana Lopez at [phone]. If this radiologist is unavailable, youwill be directed to another radiologist to assist. If yo u are a patient with a question regarding this report, pleasecontactyour referring physician directly. Professional Interpretation Provided By: [employer], Phone , These d ocuments contain legally protected and confidential healthinformation intended only for the use of the individual or entity namedabove. If you are not the intended recipient, you are hereby notifiedthat any disclosure, copying, distribution, or other use of these documents isstrictly prohibited. If you have received this information in error,pleasenotify the sender immediately and arrange for the retur n or destructionofthese documents. Dictated on 07/29/12 1147 by Yandy LAMAR,FelizriGalloranscribed on 07/29/12 1255 by ITS IMPORTSign by Yandy LAMAR,Paresh on 07/29/12 1256 Sign by: Paresh Kebede MD 12-Muj-655581:38 HgA1C , Office (95298) HgA1C , Office 5.7 % (Normal) Range: 4.6 - 7.1 60-Qmq-594451:38 Blood Glucose , Office (53759) Blood Glucose , Office 91 (Normal) 77-Brd-133781:06 LIPID PANEL (83556) Comments: PATIENT WAS FASTINGPERFORMED BY: [facility] InstituteYtnypa[address] [facility] [id number] Information: [id number] LDL/HDL Ratio 1.5 {ratio_units} (Normal) Range: 0.0-3.2 LDL Cholesterol Calc 64 mg/dL (Normal) Range: 0-99 VLDL Cholesterol Luis 61 mg/dL (Abnormal) Range: 5-40 HDL Cholesterol 44 mg/dL (Normal) Comments: According to ATP-III Guidelines, HDL-C >59 mg/dL is considered anegative risk factor for CHD. Triglycerides 304 mg/dL (Abnormal) Range: 0-149 Cholesterol, Total 169 mg/dL (Normal) Range: 100-199 :54 PT INR 2.8 (Normal) PTP 27.2 s (Abnormal) Range: 11.9-14.4 :42 PT (Prothrobim Time) Comments: PATIENT NOT FASTINGPERFORMED BY: [facility] InstituteHutpji9[address] [facility] [id number] Information: [id number],2ND ORDER NO DRAW F EE (15483) Prothrombin Time 21.7 {sec} (Abnormal) Range: 9.1-12.0 INR 2.1 (Abnormal) Range: 0.8-1.2 Comments: Reference interval is for non-anticoagulated patients. . Suggested INR therapeutic range for Vitamin K anta gonist therapy: Standard Dose (moderate intensity therapeutic range): 2.0 - 3.0 Higher intensity therapeutic range 2.5 - 3.5 17-Bqq-400090:06 PT (Prothrobim Time) Comments: PATIENT NOT FASTINGPERFORMED BY: RENARD [facility] Ciqsle[address] [place] [id number] Information: [id number],2ND ORDER NO DRAW F EE (45649) Prothrombin Time 34.8 {sec} (Abnormal) Range: 9.1-12.0 INR 3.4 (Abnormal) Range: 0.8-1.2 Comments: Reference interval is for non-anticoagulated patients. . Suggested INR therapeutic range for Vitamin K anta gonist therapy: Standard Dose (moderate intensity therapeutic range): 2.0 - 3.0 Higher intensity therapeutic range 2.5 - 3.5 :51 Urinalysis, Office (38153) UA - BILIRUBIN Negative (Normal) UA - BLOOD Hemolyzed Moderate (Normal) UA - GLUCOSE Negative (Normal) UA - KETONES Negative mg/dL (Normal) UA - LEUKOCYTE ESTERASE Small (Normal) UA - NITRITE Negative (Normal) UA - PH 7.0 (Normal) UA - PROTEIN 100 mg/dL (Normal) UA - SPECIFIC GRAVITY 1.020 (Normal) URINE UROBILINGN KEERTHI TIMED Normal mg/dL (Normal) :01 CUUR URC See Note {CFU/mL} (Normal) Comments: COLONY COUNT >100,000 ORGANISM 1: PRESUMPTIVE E. COLI PRESUMPTIVE E. COLI: REACTION AMIKACIN s <=2 S AMPICILLIN G N $$ >=32 R AMPICILLIN/SULBACTAM $$ >=32 R CEFAZOLIN $ 8 S CEFEPIME $$ <=1 S CEFOXITIN $ <=4 S CEFTAZIDIME (NF) $ <=1 S CEFTRIAXONE $ <=1 S CIPROFLOXACIN GN (IV/NF) $$ <=0.25 S EXTEND.SPECTRUM BETA LACTAMASE Neg - ERTAPENIM $$ <=0.5 S GENTAMICIN GN $ <=1 S IMIPENEM $$$ <=1 S LEVOFLOXACIN $ 1 S MEROPENEM $ <=0.25 S NITROFURANTOIN $ <=16 S TRIMETHOPRIM/SULFAMETHOXAZO $ >=320 R :01 PT INR 3.2 (Normal) PTP 29.8 s (Abnormal) Range: 11.9-14.4 :01 HgA1C , Office (88278) HgA1C , Office 6.0 % (Normal) Range: 4.6 - 7.1 :01 Blood Glucose , Office (40519) Blood Glucose , Office 90 (Normal) :14 LIPID VLDL 48 mg/dL (Abnormal) Range: 5-40 LDL 70 mg/dL (Normal) Range: 0-130 HDL 38 mg/dL (Abnormal) Comments: Reference Range HDL <40 mg/dL Low HDL Cholesterol HDL >or= 60 mg/dL High HDL Cholesterol TRIG 239 mg/dL (Abnormal) Comments: Serum Triglycerides Reference Interval Normal <150 mg/dL Borderline high 150 - 199 mg/dL High 200 - 499 mg/dL Very High > or = 500 mg/dL CHOL 156 mg/dL (Normal) Comments: <200 mg/dL Desirable 200-240 mg/dL Borderline >240 mg/dL High Risk :14 VITD 43.4 ng/mL (Normal) Range: 30.0-100.0 Comments: Vitamin D deficiency has been defined by the [place] ofMedicine and an Endocrine Society practice guideline as alevel of serum 25-OH vitamin D less than 20 ng/mL (1,2).The Endocrine Society went on to further define vitamin Dinsufficiency as a level between 21 and 29 ng/mL (2).1. IOM ([place] of Medicine). 2010. Dietary reference intakes for calcium and D. [place]: The National Academies Press.2. Swathi MF, Alexandra NC, Judy OLMEDO, et al. Evaluation, treatment, and prevention of vitamin D deficiency: an Endocrine Society clinical practice guideline. JCEM. 2010; 96(7): 1911-30.Performed at: [facility] [id number] Director: Gloria Patton MD, Phone: [phone] 43-Kth-857202:13 PROT.[id number] NOTE Comment (Normal) Comments: Protein electrophoresis scan will follow via computer,mail, or laboratory mechanical technician delivery.Performed at: [facility] [address] [place] [address] [id number] Director: Gloria Patton MD, Phone: [phone] M-SPIKE,U SeeNote % (Normal) Comments: Result: Not Observed GAMMA GLOB,U 5.6 % (Normal) BETA GLOB,U 8.0 % (Normal) BPEYO-2-RDPG,U 2.8 % (Normal) GZRFZ-9-UHPY,U 1.4 % (Normal) ALBUMIN,UR 82.2 % (Normal) PROTEIN,UR 91.6 mg/dL (Abnormal) Range: 0.0-15.0 :1 PTH,Intact 19 pg/mL (Normal) Range: 14-72 3 :13 SPE [id number] INTERPRETATION Comment (Normal) Comments: The SPE pattern reflects a polyclonal increase in gammaglobulin due to numerous clones of plasma cells producingheterogeneous antibody in response to some form ofantigenic stimulus. Hypergammaglob-ulin emia is found in awide variety of infectious, non-infectious, and autoimmunedisease states. Evidence of monoclonal protein is notapparent.Protein electrophoresis scan will follow via computer,mail, or laboratory mechanical technician delivery. A/G RATIO 1.0 (Normal) Range: 0.7-2.0 GLOBULIN, TOTAL 4.3 g/dL (Normal) Range: 2.0-4.5 M-SPIKE SeeNote g/dL Comments: Result: Not Observed (Normal) GAMMA GLOBULIN 1.9 g/dL (Abnormal) Range: 0.5-1.6 BETA GLOBULIN 1.2 g/dL (Normal) Range: 0.6-1.3 ALPHA-1 GLOBUL 0.2 g/dL (Normal) Range: 0.1-0.4 ALPHA-2 GLOBUL 1.0 g/dL (Normal) Range: 0.4-1.2 ALBUMIN 4.4 g/dL (Normal) Range: 3.2-5.6 PROTEIN,TOTAL 8.7 g/dL (Abnormal) Range: 6.0-8.5 : INR ISTAT 3.30 (Normal) 44 : PROTIME ISTAT 37.2 {SEC} Range: 11.9-14.4 44 (Abnormal) :06 CBCD,SMEAR DIFF RED CELL MORPH SeeNote {NORMAL} (Normal) Comments: Result: NORM C+C PLT EST SeeNote (Normal) Comments: Result: ADEQUATE MONOCYTE 5 % (Normal) Range: 0-10 LYMPH 52 % (Abnormal) Range: 19-41 SEGS 43 % (Abnormal) Range: 47-70 CELLS COUNTED 100 (Normal) ABSOLUTE NEUT 1.8 3/uL (Abnormal) Range: 2.0-7.7 PLT 180 K/mm3 (Normal) Range: 150-450 RDW 13.4 % (Normal) Range: 11.6-14.6 MCHC 34.3 g/dL (Normal) Range: 32-36 MCH 30.0 pg (Normal) Range: 27.0-32.0 MCV 87.4 fL (Normal) Range: 81-99 HCT 38.9 % (Normal) Range: 37-47 HGB 13.4 g/dL (Normal) Range: 12.0-16.0 RBC 4.45 {M/mm3} (Normal) Range: 4.2-5.4 WBC 4.3 K/mm3 (Abnormal) Range: 4.4-11.0 1-Ujk-875615:06 COMP METABOLIC GAP 7 (Normal) Range: 5-15 CO2 28.0 mmol/L (Normal) Range: 21.0-32.0 CL 105 mmol/L (Normal) Range: 98-107 K 4.1 mmol/L (Normal) Range: 3.5-5.1 NA 140 mmol/L (Normal) Range: 136-145 T BILI 0.30 mg/dL (Normal) Range: 0.00-1.00 ALT 8 U/L (Abnormal) Range: 12-78 ALK P 33 U/L (Abnormal) Range: 50-136 AST 17 U/L (Normal) Range: 15-37 CA 8.6 mg/dL (Normal) Range: 8.5-10.1 A/G 0.9 {RATIO} (Normal) Range: 0.9-2.4 GLOB 4.6 g/dL (Abnormal) Range: 2.7-4.2 ALB 4.1 g/dL (Normal) Range: 3.4-5.0 T PROT 8.7 g/dL (Abnormal) Range: 6.4-8.2 BUN/CRE 47.5 {RATIO} (Abnormal) Range: 10-20 EST GFR - AA 211 mL/min (Normal) EST GFR 174 mL/min (Normal) CREAT,SERUM 0.4 mg/dL (Abnormal) Range: 0.6-1.0 BUN 19 mg/dL (Abnormal) Range: 7-18 GLU 88 mg/dL (Normal) Range: 70-110 4-Nmd-321197:06 COMPLETE UA Comments: CRITICAL VALUE REPEATED AND VERIFIED. CALLED TO LA SALLE09/07/11 1153 AARON BHATIA.RESULTS READ BACK BY ELIZABETH . MUCUS, URINE 0 SEEN {/hpf} (Normal) BACTERIA 0 SEEN {/hpf} (Normal) SQUAM EPI SeeNote {/hpf} (Normal) Range: 5-10 Comments: Result: 0-5 SEEN RBC-UA 0 SEEN {/hpf} (Normal) Range: 0-5 WBC 0 SEEN {/hpf} (Normal) Range: 0-5 LEUK ESTERASE SeeNote (Normal) Comments: Result: NEGATIVE OCCULT BLOOD-UR SeeNote (Normal) Comments: Result: NEGATIVE NITRITE UR SeeNote (Normal) Comments: Result: NEGATIVE UROBILI 0.2 EU/dl (Normal) Range: 0.2 - 1.0 PROT DIPSTX 1+ (Abnormal) Comments: CRITICAL VALUE *H pH UR 7.0 (Normal) Range: 5.0-8.0 SP.GR. DIPSTX 1.020 (Normal) Range: 1.002-1.030 KETONE UR SeeNote mg/dL (Normal) Comments: Result: NEGATIVE BILIRUBIN URINE SeeNote (Normal) Comments: Result: NEGATIVE GLUCOSE, UR SeeNote (Normal) Comments: Result: NEGATIVE CLARITY CLEAR (Normal) COLOR YELLOW (Normal) 4-Cla-064603:06 LIPID VLDL 59 mg/dL (Abnormal) Range: 5-40 LDL 68 mg/dL (Normal) Range: 0-130 HDL 41 mg/dL (Normal) Comments: Reference Range HDL <40 mg/dL Low HDL Cholesterol HDL >or= 60 mg/dL High HDL Cholesterol TRIG 297 mg/dL (Abnormal) Comments: Serum Triglycerides Reference Interval Normal <150 mg/dL Borderline high 150 - 199 mg/dL High 200 - 499 mg/dL Very High > or = 500 mg/dL CHOL 168 mg/dL (Normal) Comments: <200 mg/dL Desirable 200-240 mg/dL Borderline >240 mg/dL High Risk 0-Wnp-965491:06 MICROALB:CRE UR MALB:CREAT 947.9 {mg/g_CRE} (Abnormal) MICROALBUMIN,UR 583.0 mg/L (Normal) UR CREAT 61.5 mg/dL (Normal) 6-Qsj-497424:06 TSH 0.75 {uIU/mL} (Normal) Range: 0.358-3.74 7-Trv-720701:06 VIT D,25 70540 27.4 ng/mL (Abnormal) Range: 30.0-100.0 Comments: Vitamin D deficiency has been defined by the [place] ofMedicine and an Endocrine Society practice guideline as alevel of serum 25-OH vitamin D less than 20 ng/mL (1,2).The Endocrine Society went on to further define vitamin Dinsufficiency as a level between 21 and 29 ng/mL (2).1. IOM ([place] of Medicine). 2011. Dietary reference intakes for calcium and D. [place]: The National Academies Press.2. Swathi MF, Alexandra NC, Judy OLMEDO, et al. Evaluation, treatment, and prevention of vitamin D deficiency: an Endocrine Society clinical practice guideline. JCEM. 2010; 96(7): 1911-30.Performed at: [address] [id number] Director: Gloria Patton MD, Phone: [phone] 07-Kml-888262:13 HgA1C , Office (56526) HgA1C , Office 6.0 % (Normal) Range: 4.6 - 7.1 42-Lgv-040675:13 Blood Glucose , Office (45945) Blood Glucose , Office 108 (Normal) 29-Hvy-51340:27 FAVIAN CULTURE-OTHER (04689) Comments: PATIENT NOT FASTINGPERFORMED BY: [address] [id number] Information: SRC:THRT ADD [id number] Result 1 RRF (Normal) Comments: Routine respiratory linette Upper Respiratory Culture Final report (Normal) 58-Iwz-33855:50 Rapid Strep Test, Office (09232) Rapid Strep Test, Office Negative (Normal) 51-Lko-137498:39 Microscopic Examination Comments: PATIENT WAS FASTINGPERFORMED BY: [address] [id number] Bacteria Few (Normal) Mucus Threads Present (Normal) Epithelial Cells (non renal) 0-10 {/hpf} (Normal) Range: 0 - 10 RBC None seen {/hpf} (Normal) Range: 0 - 3 WBC 0-5 {/hpf} (Normal) Range: 0 - 5 :35 PT (PROTHROMBIN TIME) Comments: PATIENT NOT FASTINGPERFORMED BY: [facility] [facility] [id number] Information: [id number], 2ND ORDER NO DRAW FEE (05914) INR 4.8 (Abnormal) Range: 0.8-1.2 Comments: Client Requested Flag Reference interval is for non- anticoagulated patients. . Suggested INR therapeutic ra nge for Vitamin K antagonist therapy: Standard Dose (moderate intensity therapeutic range): 2.0 - 3.0 Higher intensity therapeutic range 2.5 - 3.5 Prothrombin Time 51.3 {sec} (Abnormal) Range: 8.7-11.5 :36 CALCIFIDIOL (95049) VIT D Comments: PATIENT NOT FASTINGPERFORMED BY: [facility] [facility] [id number] Information: [id number],2ND ODER NO DRAW FE E 25 Vitamin D, 25-Hydroxy 29.1 ng/mL (Abnormal) Range: 32.0-100.0 Comments: Recent studies consider the lower limit of 32.0 ng/mL to be athreshold for optimal health.Helder NIEVES. J Nutr. 2004;135(2):317-22. :52 Blood Glucose , Office (94473) Blood Glucose , Office 97 (Normal) :52 HgA1C , Office (51248) HgA1C , Office 5.7 % (Normal) Range: 4.6 - 7.1 :39 TSH (34212) Comments: PATIENT WAS FASTINGPERFORMED BY: [facility] [facility] [id number] TSH 0.741 {uIU/mL} (Normal) Range: 0.450-4.500 :39 URINALYSIS, W/ MICRO (68239) Comments: PATIENT WAS FASTINGPERFORMED BY: [facility] InstituteVxsrln5088 [facility] [id number] Microscopic Examination See below: (Normal) Bilirubin Negative (Normal) Glucose Negative (Normal) Ketones Negative (Normal) Nitrite, Urine Negative (Normal) Occult Blood Negative (Normal) Protein 1+ (Abnormal) Urobilinogen,Semi-Qn 0.2 mg/dL (Normal) Range: 0.0-1.9 WBC Esterase Negative (Normal) Appearance Clear (Normal) pH 7.0 (Normal) Range: 5.0-7.5 Urine-Color Yellow (Normal) Specific [place] 1.018 (Normal) Range: 1.005-1.030 :39 MICROALBUMIN: CREATININE RATIO Comments: PATIENT WAS FASTINGPERFORMED BY: [facility] Arnzei[address] [facility] [id number] (74362) AND (02919) Microalb/Creat Ratio 273.8 {mg/g_creat} (Abnormal) Range: 0.0-30.0 Creatinine, Urine 74.9 mg/dL (Normal) Range: 15.0-278.0 Microalbumin, Urine 205.1 ug/mL (Abnormal) Range: 0.0-17.0 :39 METABOLIC PANEL, COMPREHENSIVE Comments: PATIENT WAS FASTINGPERFORMED BY: [facility] InstituteNsalsm99[address] [facility] [id number] (23374) A/G Ratio 1.3 (Normal) Range: 1.1-2.5 Alkaline Phosphatase, S 32 [iU]/L (Normal) Range: 25-150 ALT (SGPT) 5 [iU]/L (Normal) Range: 0-40 AST (SGOT) 23 [iU]/L (Normal) Range: 0-40 Bilirubin, Total 0.4 mg/dL (Normal) Range: 0.0-1.2 Albumin, Serum 4.8 g/dL (Normal) Range: 3.5-5.5 Globulin, Total 3.6 g/dL (Normal) Range: 1.5-4.5 Protein, Total, Serum 8.4 g/dL (Normal) Range: 6.0-8.5 Calcium, Serum 9.7 mg/dL (Normal) Range: 8.7-10.2 Carbon Dioxide, Total 23 mmol/L (Normal) Range: 20-32 Chloride, Serum 103 mmol/L (Normal) Range: 97-108 Potassium, Serum 4.2 mmol/L (Normal) Range: 3.5-5.2 Sodium, Serum 141 mmol/L (Normal) Range: 135-145 BUN/Creatinine Ratio 26 (Abnormal) Range: 9-23 eGFR If Africn Am 117 mL/min/1.73 (Normal) Comments: Note: A persistent eGFR <60 mL/min/1.73 m2 (3 months or more) mayindicate chronic kidney disease. An eGFR >59 mL/min/1.73 m2 with anelevated urine protein also may indicate chronic kidney disease.Calculated using CKD-EPI formula. eGFR If NonAfricn Am 102 mL/min/1.73 (Normal) Creatinine, Serum 0.58 mg/dL (Normal) Range: 0.57-1.00 BUN 15 mg/dL (Normal) Range: 6-24 Glucose, Serum 88 mg/dL (Normal) Range: 65-99 36-Qok-180292:39 LIPID PANEL (61983) Comments: PATIENT WAS FASTINGPERFORMED BY: [facility] [id number] LDL Cholesterol Calc 78 mg/dL (Normal) Range: 0-99 LDL/HDL Ratio 1.9 {ratio_units} (Normal) Range: 0.0-3.2 VLDL Cholesterol Luis 52 mg/dL (Abnormal) Range: 5-40 HDL Cholesterol 41 mg/dL (Normal) Comments: According to ATP-III Guidelines, HDL-C >59 mg/dL is considered anegative risk factor for CHD. Triglycerides 259 mg/dL (Abnormal) Range: 0-149 Cholesterol, Total 171 mg/dL (Normal) Range: 100-199 63-Rca-862116:39 CBC WITH MANUAL DIFF Comments: PATIENT WAS FASTINGPERFORMED BY: [facility] [facility] [id number] Information: [id number] (62679) Immature Grans (Abs) 0.0 {x10E3/uL} Range: 0.0-0.1 (Normal) Baso (Absolute) 0.0 {x10E3/uL} Range: 0.0-0.2 (Normal) Eos (Absolute) 0.1 {x10E3/uL} Range: 0.0-0.4 (Normal) Immature Granulocytes 0 % (Normal) Range: 0-1 Lymphs (Absolute) 1.7 {x10E3/uL} Range: 0.7-4.5 (Normal) Monocytes(Absolute) 0.3 {x10E3/uL} Range: 0.1-1.0 (Normal) Basos 0 % (Normal) Range: 0-3 Neutrophils (Absolute) 1.0 {x10E3/uL} Range: 1.8-7.8 (Abnormal) Eos 4 % (Normal) Range: 0-7 Monocytes 9 % (Normal) Range: 4-13 Lymphs 55 % (Abnormal) Range: 14-46 MCHC 34.1 g/dL (Normal) Range: 32.0-36.0 Neutrophils 32 % (Abnormal) Range: 40-74 Platelets 191 {x10E3/uL} Range: 140-415 (Normal) RDW 13.8 % (Normal) Range: 11.7-15.0 MCH 29.3 pg (Normal) Range: 27.0-34.0 MCV 86 fL (Normal) Range: 80-98 Hematocrit 40.8 % (Normal) Range: 34.0-44.0 Hemoglobin 13.9 g/dL (Normal) Range: 11.5-15.0 RBC 4.75 {x10E6/uL} Range: 3.80-5.10 (Normal) WBC 3.1 {x10E3/uL} Range: 4.0-10.5 (Abnormal) ACTH, Plasma 23.2 pg/mL (Normal) Comments: [facility]FORMED BY: [facility] [facility] [id number] 3:06 Range: 7.2-63.3 Comments: ACTH reference interval for samples collected between 7 and 10 AM. 2-Ibg-012695:06 FSH, Serum Comments: PERFORMED BY: [facility] [facility] [id number] FSH 33.2 m[iU]/mL (Normal) Comments: Follicular phase 3.5 - 12.5 Ovulation phase 4.7 - 21.5 Luteal phase 1.7 - 7.7 Postmenopausal 25.8 - 134.8 :06 IGF-1 Comments: PERFORMED BY: [place] [address] [facility] [id number] Insulin-Like Growth Factor I 151 ng/mL (Normal) Range: 81-225 :06 Luteinizing Hormone(LH), S Comments: PERFORMED BY: [address] [id number] LH 23.4 m[iU]/mL (Normal) Comments: Follicular phase 2.4 - 12.6 Ovulation phase 14.0 - 95.6 Luteal phase 1.0 - 11.4 Postmenopausal 7.7 - 58.5 :06 Prolactin 3.7 ng/mL (Abnormal) Comments: PERFORMED BY: [facility] [facility] [id number] Range: 4.8-23.3 :06 Prothrombin Time (PT) Comments: PERFORMED BY: [facility] [facility] [id number] Prothrombin Time 24.1 {sec} (Abnormal) Range: 8.7-11.5 INR 2.3 (Abnormal) Range: 0.8-1.2 Comments: Reference interval is for non-anticoagulated patients. . Suggested INR therapeutic range for Vitamin K anta gonist therapy: Standard Dose (moderate intensity therapeutic range): 2.0 - 3.0 Higher intensity therapeutic range 2.5 - 3.5 : TSH 0.865 {uIU/mL} Comments: PERFORMED BY: [place] [address] [facility] [id number] 06 (Normal) Range: 0.450-4.500 :56 BILAT SCRN DIGITAL & CAD Radiology Report See Note (Normal) Comments: MAMMOGRAPHY - BILATERAL SCREENING INDICATION:Female, 60 years old. Routine annual screening examination. PERTINENT HISTORY:Non-contributory. The patient has a history of prior bilateralstereotactic br east biopsy. TECHNIQUE:Digital examination. Mediolateral oblique (MLO) and craniocaudad (CC)views of both breasts were obtained. CAD was performed on this study. COMPARISON:Comparison is made with elyssa or study dated November 10, 2007. FINDINGS:The breast composition is almost entirely fatty replaced. There are no masses or suspicious microcalcifications. No other significant abnormalities are identified . There has been nosignificant change since the prior study. IMPRESSION:Normal bilateral screening mammogram. Yearly follow-up recommended. ASSESSMENT CATEGORY:BIRADS Category 2: Benign finding(s). A letter regarding these resultswill be sent to the patient by the facility within 30 days. Approximately 10% of breast cancers are not detected by mammography. Anormal mammogram should not delay biops y of a clinically suspiciousabnormality. Dictated on 10/29/10 0926 by Luc Kebede MDranscribed on 10/31/10 1214 by ITS IMPORTSign by Paresh Kebede MD on 10/31/10 1216 Sign by: Paresh Kebede MD 29-Oct-20108:55 DEXA BONE DENSITY STUDY (HP) Radiology Report See Note (Normal) Comments: CLINICAL:Female, 60 years old. The patient is postmenopausal. EXAMINATION:DUAL ENERGY X-RAY ABSORPTIOMETRY / DEXA. TECHNIQUE:Bone Mineral Density (BMD) measurements of lumbar spine and bila teralhipswer e obtained using a [employer] scanner.. COMPARISON:Comparison is made with prior study dated November 10, 2007. FINDINGS: Lumbar Spine (L1-L4): g/cm2 (1.107) / T-score (-0.6) / Z-score ( -0.1)Left Femur Total: g/cm2 (1.034) / T-score (0.2) / Z-score (0.6)Right Femur Total: g/cm2 (1.083) / T-score (0.6) / Z-score (1.0) Since prior study, there has been an improvement of 11.9% i n the bonedensity . IMPRESSION:The patient is considered normal, as outlined above, according to WorldHealth Organization (WHO) criteria. Fracture risk is low. Reference Information:The T-score is the number of standard deviations above or below thestandard which is normal for young adults at their peak bone mineraldensity. The World Health Organization (WHO) interprets the T-scores asfollows: Above -1 Normal bone densityBetween -1 and -2.5 OsteopeniaEqual to / or below -2.5 Osteoporosis As a practical clinical guideline, osteopenia may be graded as follows:Mild -1 through -1 .5Moderate -1.6 through -2.0Severe -2.1 through -2.4 The Z-score is the number of standard deviations above or below age-matchedcontrols. A Z-score of less than -1.5 would be considered abnormal . References:1. NIH Osteoporosis and Related Bone Diseases http://www.osteo.org2. International Society for Clinical Densitometry http://www.iscd.org3. National Osteoporosis Foundation http://www.nof .org Dictated on 10/29/10 0904 by Earl Kebedescribed on 10/29/10 1036 by ITS IMPORTSign by Paresh Kebede on 10/29/10 1037 Sign by: ___ Paresh Kebede 79-Sco-631111:03 FECAL OCCULT HGB ASSAY- tubes sent home (71036) FECAL OCCULT HGB ASSAY, QUAL, 1-3 SIMULTANEOU negative (Normal) 87-Fvf-930832:59 Microscopic Examination Comments: PATIENT NOT FASTINGPERFORMED BY: [facility] [id number] Bacteria None seen (Normal) Mucus Threads Present (Normal) Cast Type Hyaline casts (Normal) Casts Present {/lpf} (Abnormal) Epithelial Cells (non renal) 0-10 {/hpf} (Normal) Range: 0 - 10 RBC 0-3 {/hpf} (Normal) Range: 0 - 3 WBC 0-5 {/hpf} (Normal) Range: 0 - 5 78-Ofz-429276:57 Vitamin D Hydroxy Comments: PATIENT NOT FASTINGPERFORMED BY: [facility] [id number] Information: [id number] (91052) Vitamin D, 25-Hydroxy 32.6 ng/mL (Normal) Range: 32.0-100.0 Comments: Recent studies consider the lower limit of 32.0 ng/mL to be athreshold for optimal health.Helder NIEVES. J Nutr. 2004;135(2):317-22. 53-Bov-901800:59 URINALYSIS, W/ MICRO Comments: PATIENT NOT FASTINGPERFORMED BY: happn [facility] Tgrgre[address] [facility] [id number] Information: SRC: [id number] (31652) Microscopic Examination See below: (Normal) Nitrite, Urine Negative (Normal) Bilirubin Negative (Normal) Glucose Negative (Normal) Ketones Negative (Normal) Occult Blood Negative (Normal) Protein 1+ (Abnormal) Urobilinogen,Semi-Qn 0.2 mg/dL (Normal) Range: 0.0-1.9 WBC Esterase Negative (Normal) Appearance Clear (Normal) Urine-Color Yellow (Normal) pH 6.5 (Normal) Range: 5.0-7.5 Specific [place] 1.017 (Normal) Range: 1.005-1.030 :59 URINE FAVIAN CULTURE-KEERTHI COL Comments: PATIENT NOT FASTINGPERFORMED BY: happn [facility] Qesvuz[address] [facility] [id number] COUNT (97920) Result 1 MUG (Normal) Comments: Mixed urogenital flora10,000-25,000 colony forming units per mL Urine Final report (Normal) Culture,Comprehensive :53 HgA1C , Office (86790) HgA1C , Office 5.5 % (Normal) Range: 4.6 - 7.1 :53 Blood Glucose , Office (56367) Blood Glucose , Office 99 (Normal) :37 LIPID VLDL 67 mg/dL (Abnormal) Range: 5-40 LDL 43 mg/dL (Normal) Range: 0-130 HDL 37 mg/dL (Abnormal) Comments: Reference Range HDL <40 mg/dL Low HDL Cholesterol HDL >or= 60 mg/dL High HDL Cholesterol TRIG 334 mg/dL (Abnormal) Comments: Serum Triglycerides Reference Interval Normal <150 mg/dL Borderline high 150 - 199 mg/dL High 200 - 499 mg/dL Very High > or = 500 mg/dL CHOL 147 mg/dL (Normal) Comments: <200 mg/dL Desirable 200-240 mg/dL Borderline >240 mg/dL High Risk 03-Sep-20108:37 PRO TIME INR 3.5 (Normal) PROTIME 36.2 s (Abnormal) Range: 9.1-11.7 [id number] URINE FAVIAN CULTURE-KEERTHI COL Comments: PATIENT NOT FASTINGPERFORMED BY: [facility] [id number] [facility] [id number] Information: SRC:UR [id number] COUNT ([id number]) Result 1 NG36 (Normal) Comments: No growth in 36 - 48 hours. Urine Culture,Comprehensive Final report (Normal) [id number] Urinalysis, Office (14951) UA - BILIRUBIN Negative (Normal) UA - BLOOD Non Hemolyzed Trace (Normal) UA - GLUCOSE Negative (Normal) UA - KETONES Negative mg/dL (Normal) UA - LEUKOCYTE ESTERASE Small (Normal) UA - NITRITE Negative (Normal) UA - PH 8.0 (Normal) UA - PROTEIN 30 mg/dL (Normal) UA - SPECIFIC GRAVITY 1.015 (Normal) URINE UROBILINGN KEERTHI TIMED Normal mg/dL (Normal) 13-Ael-84846:00 MRA HEAD WITHOUT CONTRAST Radiology Report See Note (Normal) Comments: CLINICAL:Gait abnormality MRA OF THE BRAIN TECHNIQUE:3-D dcpc-cj-prryen (TOF) imaging was performed COMPARISON:MR of the brain dated July 14, 2010 FINDINGS:Normal bilateral petrous and cavernous car otid arteries with normalbilateral supraclinoid bifurcations. Normal bilateral A1 segments of the anterior cerebral arteries. Normal intact anterior communicating artery (ACOM), without an ACOManeurysm. Normal bilateral A2 segments of the anterior cerebral arteries. Normal bilateral M1 and M2 segments of the bilateral middle cerebralarteries, with normal bilateral M1 bifurcations. There is origi n of the right RIVETER HELPER. The left posteriorcommunicatingartery is prominent, of similar caliber to the P1 segment of the leftPCA. Basilar artery is diminutive in caliber, likely on a developmental basisgive n the right RIVETER HELPER and prominence of the left posteriorcommunicating artery. On the MIP images there is focal narrowing of themid basilar artery which, upon review of the source images is thought to beartifactual. Visualized portion of the right vertebral artery isunremarkable. Intracranial portion of the left vertebral artery is notincluded on the scan. There is no demonstrated aneurysm of the ci rcle of [place]. There is no major vessel occlusion or hemodynamically significantstenosis. IMPRESSION:Essentially normal [place] without a demonstrated aneurysm orhemodynamically significant st enosis. Diffusely diminutive basilararterylikely developmental in nature. Focal narrowing of the mid basilararteryon the MIP images is thought likely artifactual upon review of thesourceMRA images. Dictated on 07/18/101550 by Mingo IsabelTranscribed on 07/18/101550 by EUGENIE THORPESign by Mingo Isabel on 07/19/104 Sign by: ____ Mingo Isabel [id number]:23 BRAIN W/W/O CONTRAST Radiology Report See Note (Normal) Comments: Exam Number: [id number] LINICAL:60 year old female with unsteady gait, running into things. MRI BRAIN WITHOUT AND WITH CONTRAST TECHNIQUE:Standardized multiplanar fat and water weighted pulse sequences w ere obtained. 18 ml of Magnevist contrast material was administered intravenously for the contrast portion of the examination. COMPARISON:CT brain without contrast 05/05/2007. FINDINGS:Normal size of the ventricles and extra-axial spaces for the patient's age. There are a limited number of small white matter hyperintensities, distributed throughout the deep white matter tracts of the cerebral hemis pheres, consistent with mild chronic white matter ischemic changes. There is no evidence for recent intracranial ischemia or other cause of cytotoxic edema on diffusion weighted imaging (DWI). Normal b joseph ganglia and thalami. Normal flow voids within the major intracranial circulation suggesting patency by spin echo criteria. Visualized vertebrobasilar system appears diminutive in caliber, most lik noah secondary to dominant anterior circulation with potential origin of the bilateral posterior cerebral arteries, with acquired basilar stenosis considered less likely. This could be further ass essed with intracranial MRA, if clinically warranted. There is no extra-axial fluid accumulation. Normal enhancement of the dural sinuses and cortical veins. There is no enhancing intra-axial or extra- axial abnormality. There is enlargement of the sella turcica with increased CSF within the sella and flattening of the pituitary gland consistent with an empty sellar syndrome. Normal infundibular sta lk, hypothalamus, and optic chiasm, within the constraints of a routine brain study. Normal tectal plate and pineal gland. Normal basal cisterns. Normal midbrain, millie and medulla. Normal cerebellum. Normal bilateral temporal bones. Normal visualized bilateral internal auditory canal structures. No demonstrated orbital pathology. There is mucoperiosteal inflammatory disease of the paranasal sinuse s consistent with mild chronic sinusitis, with small retention cyst along the medial floor of the right maxillary sinus. Normal calvarium and skull base. Normal visualized soft tissue structures. No s ubstantial abnormality of the visualized upper cervical spine. IMPRESSION:Mild chronic microvascular ischemic changes involving the supratentorial white matter, without demonstrated recent completed isc hemic event or other acute intracranial process. Diminutive caliber of the visualized vertebrobasilar system may be related to normal variant dominant anterior circulation, less likely acquired basilar stenosis; consider further evaluation with intracranial MRA, if clinically warranted. Empty sella. Mild chronic sinusitis. Reported By: KELLIE MORRISON :27 BMP GAP 10 (Normal) Range: 5-15 CO2 25.0 mmol/L (Normal) Range: 21.0-32.0 CL 106 mmol/L (Normal) Range: 98-107 K 4.5 mmol/L (Normal) Range: 3.5-5.1 NA 141 mmol/L (Normal) Range: 136-145 BUN/CRE 32.0 {RATIO} (Abnormal) Range: 10-20 CA 9.1 mg/dL (Normal) Range: 8.5-10.1 EST GFR - AA 164 mL/min (Normal) CREAT,SERUM 0.5 mg/dL (Abnormal) Range: 0.6-1.0 EST GFR 135 mL/min (Normal) BUN 16 mg/dL (Normal) Range: 7-18 GLU 100 mg/dL (Normal) Range: 70-110 :27 PRO TIME INR 3.4 (Normal) PROTIME 34.9 s (Abnormal) Range: 9.1-11.7 :57 INR ISTAT 3.50 (Normal) :57 PROTIME ISTAT 39.7 {SEC} (Normal) :31 PT (Prothrobim Time) Comments: PATIENT NOT FASTINGPERFORMED BY: RENARD [facility] [id number] [place] [id number] Information: [id number] (11262) Prothrombin Time 20.6 {sec} (Abnormal) Range: 8.7-11.5 INR 1.9 (Abnormal) Range: 0.8-1.2 Comments: Reference interval is for non-anticoagulated patients. . Suggested INR therapeutic range for Vitamin K anta gonist therapy: Standard Dose (moderate intensity therapeutic range): 2.0 - 3.0 Higher intensity therapeutic range 2.5 - 3.5 :15 HgA1C , Office (17834) Comments: done HgA1C , Office 5.8 % (Normal) Range: 4.6 - 7.1 :15 Blood Glucose , Office (07694) Comments: done Blood Glucose , Office 118 (Normal) :05 HgA1C , Office (71646) HgA1C , Office 6.1 % (Normal) Range: 4.6 - 7.1 :05 Blood Glucose , Office (26216) Blood Glucose , Office 89 (Normal) :24 CBCD,SMEAR DIFF CELLS COUNTED 100 (Normal) LYMPH 50 % (Abnormal) Range: 19-41 MONOCYTE 6 % (Normal) Range: 0-10 PLT EST SeeNote (Normal) Comments: Result: ADEQUATE RED CELL MORPH SeeNote {NORMAL} (Normal) Comments: Result: NORM C+C SEGS 44 % (Abnormal) Range: 47-70 ABSOLUTE NEUT 1.6 3/uL (Abnormal) Range: 2.0-7.7 HCT 37.1 % (Normal) Range: 37-47 HGB 12.6 g/dL (Normal) Range: 12.0-16.0 MCH 30.0 pg (Normal) Range: 27.0-32.0 MCHC 34.0 g/dL (Normal) Range: 32-36 MCV 88.3 fL (Normal) Range: 81-99 PLT 226 K/mm3 (Normal) Range: 150-450 RBC 4.20 {M/mm3} (Normal) Range: 4.2-5.4 RDW 12.8 % (Normal) Range: 11.6-14.6 WBC 3.6 K/mm3 (Abnormal) Range: 4.4-11.0 :24 COMP METABOLIC CL 104 mmol/L (Normal) Range: 98-107 CO2 25.0 mmol/L (Normal) Range: 21.0-32.0 GAP 6 (Normal) Range: 5-15 K 4.2 mmol/L (Normal) Range: 3.5-5.1 A/G 0.9 {RATIO} (Normal) Range: 0.9-2.4 ALB 4.1 g/dL (Normal) Range: 3.4-5.0 ALK P 40 U/L (Abnormal) Range: 50-136 ALT 7 U/L (Abnormal) Range: 12-78 AST 22 U/L (Normal) Range: 15-37 BUN/CRE 23.8 {RATIO} (Abnormal) Range: 10-20 CA 9.2 mg/dL (Normal) Range: 8.5-10.1 EST GFR 79 mL/min (Normal) EST GFR - AA 96 mL/min (Normal) GLOB 4.7 g/dL (Abnormal) Range: 2.7-4.2 NA 135 mmol/L (Abnormal) Range: 136-145 T BILI 0.30 mg/dL (Normal) Range: 0.00-1.00 T PROT 8.8 g/dL (Abnormal) Range: 6.4-8.2 BUN 19 mg/dL (Abnormal) Range: 7-18 CREAT,SERUM 0.8 mg/dL (Normal) Range: 0.6-1.0 GLU 97 mg/dL (Normal) Range: 70-110 :24 COMPLETE UA BACTERIA 0 SEEN {/hpf} (Normal) MUCUS, URINE 0 SEEN {/hpf} (Normal) SQUAM EPI SeeNote {/hpf} (Normal) Range: 5-10 Comments: Result: 0-5 SEEN LEUK ESTERASE SeeNote (Normal) Comments: Result: NEGATIVE RBC-UA 0 SEEN {/hpf} (Normal) Range: 0-5 WBC SeeNote {/hpf} (Normal) Range: 0-5 Comments: Result: 0-5 SEEN NITRITE UR SeeNote (Normal) Comments: Result: NEGATIVE OCCULT BLOOD-UR SeeNote (Normal) Comments: Result: NEGATIVE UROBILI 0.2 EU/dl (Normal) Range: 0.2 - 1.0 BILIRUBIN URINE SeeNote (Normal) Comments: Result: NEGATIVE CLARITY CLEAR (Normal) GLUCOSE, UR SeeNote (Normal) Comments: Result: NEGATIVE KETONE UR SeeNote mg/dL (Normal) Comments: Result: NEGATIVE pH UR 6.0 (Normal) Range: 5.0-8.0 PROT DIPSTX SeeNote (Normal) Comments: Result: NEGATIVE SP.GR. DIPSTX 1.020 (Normal) Range: 1.002-1.030 COLOR YELLOW (Normal) :24 MICROALB:CRE UR MALB:CREAT 152.2 {mg/g_CRE} (Abnormal) MICROALBUMIN,UR 113.0 mg/L (Normal) UR CREAT 74.2 mg/dL (Normal) :24 NMR LIPOPROFILE HDL SIZE < 8.3 nm (Abnormal) Comments: Small LDL-P, LDL Particle Size, Large HDL-P, Large VLDL-PVLDL Size, HDL Size, HDL Particle, and LP-IR Scorehave been validated by [facility] but not cleared by US FDA;the clinical utility of these test results has not been fully established. LP-IR SCORE 86 (Abnormal) Comments: LP-IR Score is inaccurate if patient is non-fasting.The LP-IR Score combines the information from Large VLDL-P,Small LDL-P, Large HDL-P, VLDL Size, LDL Size and HDL Sizeto give improved assessment of in sulin resistance anddiabetes risk. INSULIN RESISTANCE / DIABETES RISK MARKERS<--Insulin Sensitive Insulin Resistant-->Percentile in [facility] PopulationLarge VLDL-P Low 25th 50th 75th High<0.9 0.9 2.7 6.9 >6.9.Small LDL-P Low 25th 50th 75th High<117 117 527 839 >839.Large HDL-P High 75th 50th 25th Low>7.3 7.3 4.8 3.1 <3.1.VLDL Size Small 25th 50th 75th Large<42.4 42.4 46.6 52.5 >52.5.LDL Size Large 75th 50th 25th Small>21.2 21.2 20.8 20.4 <20.4.HDL Size Large 75th 50th 25th Small>9.6 9 .6 9.2 8.9 >8.9Insulin Resistance ScoreLP-IR SCORE Low 25th 50th 75th High<27 27 45 63 >63 HDL-P TOTAL 34.5 umol/L (Normal) INS RES/DIAB RK . (Normal) LARGE HDL-P < 0.7 umol/L (Abnormal) LARGE VLDL-P 11.0 nmol/L (Abnormal) LD HD PARTICLES . (Normal) LDL SIZE 19.7 nm (Abnormal) Comments: INTERPRETATIVE INFORMATIONPARTICLE CONCENTRATION AND SIZE<--Lower CVD Risk Higher CVD Risk-->LDL AND HDL PARTICLES Percentile i n Reference PopulationHDL-P (total) High 75th 50th 25th Low>34.9 34.9 30.5 26.7 <26.7.Small LDL-P Low 25th 50th 75th High<117 117 527 839 >839.LDL Size <-Large (Pattern A)-> <-Small (Pattern B)->23.0 20.6 20.5 19.0 LDL SIZE 19.7 nm (Abnormal) LDL-P 1594 nmol/L (Abnormal) Comments: Low < 1000Moderate 1000 - 1299Borderline-High 1300 - 1599High 1600 - 2000Very High > 2000 SMALL LDL-P 1296 nmol/L (Abnormal) SMALL LDL-P 1296 nmol/L (Abnormal) VLDL SIZE 56.4 nm (Abnormal) CHOLESTEROL TOT 164 mg/dL (Normal) HDL-C 42 mg/dL (Normal) LDL-C 78 mg/dL (Normal) Comments: LDL-C is inaccurate if patient is nonfasting..Optimal < 100Above optimal 100 - 129Borderline 130 - 159High 160 - 189Very high > 189. LIPIDS . (Normal) TRIGLYCERIDES 220 mg/dL (Abnormal) :24 PRO TIME INR 3.0 (Normal) PROTIME 30.5 s (Abnormal) Range: 9.1-11.7 :24 TSH 0.85 {uIU/mL} (Normal) Range: 0.358-3.74 :24 VIT D,25 34366 39.9 ng/mL (Normal) Range: 32.0-100.0 Comments: Recent studies consider the lower limit of 32.0 ng/mL to kizzy threshold for optimal health.Helder NIEVES. J Nutr. 2004;135(2):317-22.Performed at: [facility] [address] [place], [place] [id number] Director: Tony Steele PhD, Phone: [phone] at: [facility] [id number] Director: Gloria Patton MD, Phone: [phone] HgA1C , Office (36673) Comments: done km HgA1C , Office 5.9 % (Normal) Range: 4.6 - 7.1 :48 Blood Glucose , Office (56599) Comments: done km Blood Glucose , Office 106 (Normal) :54 PRO TIME INR 3.7 (Abnormal) Comments: RESULTS CALLED TO KRISTIAN AT DR WHITMAN'S IICPSG55/21/10 MORENITA LEACH.REPORT READ BACK BY SAME . PROTIME 44.3 s (Abnormal) Range: 9.1-11.7 :41 PRO TIME INR 5.1 (Abnormal) PROTIME 62.4 s (Abnormal) Range: 9.1-11.7 :13 PRO TIME INR 2.1 (Normal) PROTIME 23.4 s (Abnormal) Range: 9.1-11.7 :20 BMP GAP 11 (Normal) Range: 5-15 CA 8.4 mg/dL (Abnormal) Range: 8.5-10.1 CL 103 mmol/L (Normal) Range: 98-107 CO2 26.0 mmol/L (Normal) Range: 21.0-32.0 K 4.2 mmol/L (Normal) Range: 3.5-5.1 NA 140 mmol/L (Normal) Range: 136-145 BUN/CRE 20.0 {RATIO} (Normal) Range: 10-20 CREAT,SERUM 0.8 mg/dL (Normal) Range: 0.6-1.0 EST GFR 79 mL/min (Normal) EST GFR - AA 96 mL/min (Normal) BUN 16 mg/dL (Normal) Range: 7-18 GLU 112 mg/dL (Abnormal) Range: 70-110 Comments: Fasting Glucose result from 110 to <126 mg/dLsuggests IMPAIRED HOMEOSTASIS per A.D.A. criteria. :20 CBC HCT 36.8 % (Abnormal) Range: 37-47 HGB 12.3 g/dL (Normal) Range: 12.0-16.0 MCH 30.0 pg (Normal) Range: 27.0-32.0 MCHC 33.4 g/dL (Normal) Range: 32-36 MCV 89.8 fL (Normal) Range: 81-99 MPV 7.8 fL (Normal) Range: 6.5-12.0 PLT 165 K/mm3 (Normal) Range: 150-450 RBC 4.10 {M/mm3} (Abnormal) Range: 4.2-5.4 RDW 13.0 % (Normal) Range: 11.6-14.6 WBC 5.9 K/mm3 (Normal) Range: 4.4-11.0 :20 MG 2.0 mg/dL (Normal) Range: 1.5-2.2 :20 PRO TIME INR 1.2 (Normal) PROTIME 13.0 s (Abnormal) Range: 9.1-11.7 1-Lhh-058823:45 CBC HCT 37.0 % (Normal) Range: 37-47 MCH 30.1 pg (Normal) Range: 27.0-32.0 MCHC 33.5 g/dL (Normal) Range: 32-36 MCV 89.8 fL (Normal) Range: 81-99 MPV 7.9 fL (Normal) Range: 6.5-12.0 PLT 170 K/mm3 (Normal) Range: 150-450 RDW 13.2 % (Normal) Range: 11.6-14.6 HGB 12.4 g/dL (Normal) Range: 12.0-16.0 RBC 4.12 {M/mm3} (Abnormal) Range: 4.2-5.4 WBC 6.2 K/mm3 (Normal) Range: 4.4-11.0 :20 Ab SCREEN GEL Comments: SURGERY? N Ab SCREEN GEL POSITIVE (Abnormal) Comments: SENT TO [facility] ON 09/05/09 PM SHIFT SCREEN CELL I 2+ (Abnormal) SCREEN CELL II 2+ (Abnormal) SCREEN CELL III 2+ (Abnormal) 3-Sbp-021840:2 ANTIBODY PANEL WARM AUTOANTIBODY Comments: SURGERY? N 0 (Normal) Comments: Reactions suggestive of a warm autoantibody at [facility].Autologous adsorption of the patient's plasma with PEG onzzaped red cells removed all reactivity. If transfusion isneeded, give ABORh compatible red c ells that show bestcompatibility in vitro (least incompatible) with patient'sserum. :2 BLOOD TYPE GEL O POSITIVE (Normal) Comments: SURGERY? N 0 :2 DIRECT CAMPBELL= NEG w/POLYSPECIFIC Comments: SURGERY? N 0 (Normal) :29 LEFT HEART CATH/COR/LV PERCUT Radiology Report See Note (Normal) Comments: Exam Number: [id number] Procedure completed. Please see MEDICAL RECORDS reports in PCI -OP - OP NOTELET - LETTER. Reported By: PAOLA SOSA M.D. :10 PRO TIME INR 1.5 (Normal) PROTIME 15.8 s (Abnormal) Range: 9.1-11.7 02-Fha-955146:56 MYOCARD PERF SPECT REST/STRESS Radiology Report See Note (Normal) Comments: Exam Number: [id number] STRESS CARDIOLITE STUDY HISTORYThis is a 59-year-old female presents with dyspnea on exertion. TECHNIQUE The patient was injected with 11 mCi of Tc99m Cardiolite and restingSP ECT images were acquired in the horizontal long, vertical long, andshort axes views. The patient subsequently underwent stressusing a Silver protocol and exercised 6 minutes and 13 seconds,reaching a pe ak heart rate of 131, which was 80% of maximumpredicted. At peak stress, the patient was injected with 33 mCi afWn80c Cardiolite and stress SPECT images were acquired in thehorizontal long, vertical lo ng, and short axes views. INTERPRETATIONResting images demonstrate a very subtle decrease in anteroseptalactivity which was again demonstrated with stress with brighteningat end systole and normal wal l motion suggestive of soft tissue/breastattenuation. With stress, however, there is development of a verysubtle reversible perfusion defect involving the anterior segmentsextending to the anterior ape x equivocal for inducible ischemia. Acomponent of shifting breast attenuation artifact cannot completely beexcluded. CONCLUSION1. A subtle decrease in anteroseptal activity at rest and with stresslike ly representing soft tissue/breast attenuation.2. Subtle reversible anterior perfusion defect developing with stressequivocal for inducible ischemia. A component of shifting breastartifact cannot be e xcluded. 3. Above findings discussed with Dr. Hannah Leos. Reported By: PAOLA SOSA M.D. :34 LIVER ALB 3.9 g/dL (Normal) Range: 3.4-5.0 ALK P 43 U/L (Abnormal) Range: 50-136 ALT 11 U/L (Abnormal) Range: 12-78 AST 45 U/L (Abnormal) Range: 15-37 D BILI 0.10 mg/dL (Normal) Range: 0.00-0.30 T BILI 0.20 mg/dL (Normal) Range: 0.00-1.00 T PROT 8.3 g/dL (Abnormal) Range: 6.4-8.2 :34 NMR LIPOPROFILE PATIENT GOALS Comment (Normal) Comments: High Risk: LDL-P < 1000; Secondary goal: SmallLDL-P < 527 Moderately High-Risk: LDL-P < 1300; Secondarygoal: Small LDL-P < 527Performed At: [facility] [id number] [place], [place] [id number] LARGE HDL-P < 0.7 umol/L (Abnormal) LARGE VLDL-P 9.8 nmol/L (Abnormal) Comments: Small LDL-P, LDL Particle Size, Large HDL-P and Large VLDL-Phave been validated by [facility] but not cleared by US FDA;the clinical utility of these test results has not been fully establi shed. LDL PARTICLE SZ 19.7 nm (Abnormal) Comments: .Small (Pattern B) 18.0 - 20.5Large (Pattern A) 20.6 - 23.0. TRIGLYCERIDES 224 mg/dL (Abnormal) CHOLESTEROL TOT 156 mg/dL (Normal) HDL-C 37 mg/dL (Abnormal) LDL-C 74 mg/dL (Normal) Comments: LDL-C is inaccurate if patient is nonfasting..Optimal < 100Above optimal 100 - 129Borderline 130 - 159High 160 - 189Very high > 189. SMALL LDL-P 1271 nmol/L (Abnormal) Comments: .Low < 117Moderate 117 - 526Borderline 527 - 839High > 839. LDL-P 1658 nmol/L (Abnormal) Comments: .Optimal < 1000Above optimal 1000 - 1299Borderline 1300 - 1599High 1600 - 2000Very high > 2000. 17-Zun-879641:05 HgA1C , Office (57201) Comments: done km HgA1C , Office 7.3 % (Abnormal) Range: 4.6 - 7.1 11-Gym-036688:05 Blood Glucose , Office (29714) Comments: done km Blood Glucose , Office 215 (Normal) 08-Zld-382399:59 PT (Prothrobim Time) (21511) Comments: pt/inr; PATIENT WAS FASTINGPERFORMED BY: [facility] [id number] [facility] [id number] INR 3.5 (Abnormal) Range: 0.8-1.2 Comments: Reference interval is for non-anticoagulated patients. . Suggested INR therapeutic range for Vitamin K anta gonist therapy: Standard Dose (moderate intensity therapeutic range): 2.0 - 3.0 Higher intensity therapeutic range 2.5 - 3.5 Prothrombin Time 34.1 {sec} (Abnormal) Range: 8.7-11.5 :59 TSH (21028) Comments: PATIENT WAS FASTINGPERFORMED BY: [facility] [id number] [facility] [id number] TSH 0.934 {uIU/mL} (Normal) Range: 0.450-4.500 :59 Vitamin D Hydroxy (58994) Comments: PATIENT WAS FASTINGPERFORMED BY: [facility] [id number] [facility] [id number] Vitamin D, 25-Hydroxy 33.2 ng/mL (Normal) Range: 32.0-100.0 Comments: Recent studies consider the lower limit of 32.0 ng/mL to be athreshold for optimal health.Helder NIEVES. J Nutr. 2004;135(2):317-22. :59 LIPID PANEL (18201) Comments: PATIENT WAS FASTINGClinical Information: [id number] PERFORMED BY: happn [facility]LoftyVistasXhwxto61[address] [facility] [id number] Cholesterol, Total 171 mg/dL (Normal) Range: 100-199 HDL Cholesterol 35 mg/dL (Abnormal) Comments: According to ATP-III Guidelines, HDL-C >59 mg/dL is considered anegative risk factor for CHD. LDL Cholesterol Calc 58 mg/dL (Normal) Range: 0-99 LDL/HDL Ratio 1.7 {ratio_units} (Normal) Range: 0.0-3.2 Triglycerides 391 mg/dL (Abnormal) Range: 0-149 VLDL Cholesterol Luis 78 mg/dL (Abnormal) Range: 5-40 :07 Glucose, PP/2 Hour (17007) Comments: PATIENT NOT FASTINGClinical Information: [id number] 75G DRAWN@1 05PM PERFORMED BY: happn [facility] [id number] [facility] [id number] Glucose, Two-Hour Postprandial 220 mg/dL (Abnormal) Range: 65-139 36-Czj-944817:46 BUN 14 mg/dL (Normal) Range: 7-18 79-Jmn-685480:46 SERUM CRE & GFR CREAT,SERUM 0.6 mg/dL (Normal) Range: 0.6-1.0 EST GFR 110 mL/min (Normal) EST GFR - AA 133 mL/min (Normal) 04-Iie-179750:36 CHEST WITH CONTRAST Radiology Report See Note (Normal) Comments: Exam Number: [id number] CLINICAL:Wheezing and shortness of breath. CT CHEST WITH CONTRAST COMPARISON:None. TECHNIQUE:High resolution transaxial imaging was performed following the intravenous administra tion of 100 ml of Isovue 370 contrast material. Coronal and sagittal images were reconstructed. FINDINGS:There is mild groundglass opacity in the lower lobes, which is likely related to mild congestive heart failure and atelectasis. Minimal scarring is noted in the lingula and right middle lobe. There are no parenchymal infiltrates. Normal pleura without pleural thickening, a mass lesion or calcific ations. There are no pleural effusions. Normal mediastinum and pulmonary jannette without lymphadenopathy. Normal cardiac size without demonstrated pericardial fluid or thickening. There are no vascular c alcifications of the coronary arteries. There are no valvular calcifications. There is prominence of the pulmonary hilar and peripheral pulmonary arteries consistent with congestive heart failure (CHF) . There is no demonstrated intraluminal defect of the pulmonary arteries. Specifically, there is no demonstrated pulmonary embolus on this examination. Normal thoracic aorta without aneurysmal dilatati on. Normal thoracic esophagus. There is no lymphadenopathy of the axillary or supraclavicular lymph nodes. Normal visualized liver, spleen, gallbladder, pancreas and adrenal glands. There are diffuse de generative changes of the thoracic spine. Normal visualized chest wall structures. There is no abnormal contrast enhancement. IMPRESSION:No evidence of pulmonary embolism. Mild prominence of the pulmo nary vasculature with ground glass opacity at the lung bases, suspicious for mild congestive heart failure. Minimal scarring in the lingula and right middle lobe. No parenchymal infiltrates. Reported By: AYUSH JIMENEZ M.D. :47 CBC With Differential/Platelet Comments: A courtesy copy of this report has been sent [phone].Clinical Information: CC:[id number] PERFORMED BY: [facility] [facility] [id number] Baso (Absolute) 0.0 {x10E3/uL} (Normal) Range: 0.0-0.2 Basos 0 % (Normal) Range: 0-3 Eos 4 % (Normal) Range: 0-7 Eos (Absolute) 0.2 {x10E3/uL} (Normal) Range: 0.0-0.4 Hematocrit 42.9 % (Normal) Range: 34.0-44.0 Hemoglobin 14.6 g/dL (Normal) Range: 11.5-15.0 Lymphs 37 % (Normal) Range: 14-46 Lymphs (Absolute) 1.7 {x10E3/uL} (Normal) Range: 0.7-4.5 MCH 31.7 pg (Normal) Range: 27.0-34.0 MCHC 34.0 g/dL (Normal) Range: 32.0-36.0 MCV 93 fL (Normal) Range: 80-98 Monocytes 9 % (Normal) Range: 4-13 Monocytes(Absolute) 0.4 {x10E3/uL} (Normal) Range: 0.1-1.0 Neutrophils 50 % (Normal) Range: 40-74 Neutrophils (Absolute) 2.3 {x10E3/uL} (Normal) Range: 1.8-7.8 Platelets 159 {x10E3/uL} (Normal) Range: 140-415 RBC 4.61 {x10E6/uL} (Normal) Range: 3.80-5.10 RDW 13.7 % (Normal) Range: 11.7-15.0 WBC 4.5 {x10E3/uL} (Normal) Range: 4.0-10.5 :47 Comp. Metabolic Panel (14) Comments: A courtesy copy of this report has been sent [phone].PERFORMED BY: [facility] [facility] [id number] A/G Ratio 1.2 (Normal) Range: 1.1-2.5 Albumin, Serum 4.5 g/dL (Normal) Range: 3.5-5.5 Alkaline Phosphatase, S 51 [iU]/L (Normal) Range: 25-150 ALT (SGPT) 4 [iU]/L (Normal) Range: 0-40 AST (SGOT) 40 [iU]/L (Normal) Range: 0-40 Bilirubin, Total 0.4 mg/dL (Normal) Range: 0.1-1.2 BUN 16 mg/dL (Normal) Range: 5-26 BUN/Creatinine Ratio 29 (Abnormal) Range: 8-27 Calcium, Serum 10.2 mg/dL (Normal) Range: 8.5-10.6 Carbon Dioxide, Total 22 mmol/L (Normal) Range: 20-32 Chloride, Serum 110 mmol/L (Abnormal) Range: 97-108 Creatinine, Serum 0.56 mg/dL (Abnormal) Range: 0.57-1.00 eGFR >59 mL/min/1.73 (Normal) eGFR AfricanAmerican >59 mL/min/1.73 Comments: Note: Persistent reduction for 3 months or more in an eGFR<60 mL/min/1.73 m2 defines CKD. Patients with eGFR values>/=60 mL/min/1.73 m2 may also have CKD if evidence of persistentproteinuria is (Normal) present. Additional information may be found [email or web address]. Globulin, Total 3.7 g/dL (Normal) Range: 1.5-4.5 Glucose, Serum 143 mg/dL (Abnormal) Range: 65-99 Potassium, Serum 4.8 mmol/L (Normal) Range: 3.5-5.2 Protein, Total, Serum 8.2 g/dL (Normal) Range: 6.0-8.5 Sodium, Serum 148 mmol/L (Abnormal) Range: 135-145 :47 Prothrombin Time (PT) Comments: A courtesy copy of this report has been sent [phone].PERFORMED BY: [facility] [facility] [id number] INR 3.4 (Abnormal) Range: 0.8-1.2 Comments: Reference interval is for non-anticoagulated patients. . Suggested INR therapeutic range for Vitamin K anta gonist therapy: Standard Dose (moderate intensity therapeutic range): 2.0 - 3.0 Higher intensity therapeutic range 2.5 - 3.5 Prothrombin Time 33.1 {sec} (Abnormal) Range: 8.7-11.5 :30 CBCD Comments: DR. LEOS ORD PT. DR. LEHMAN ORD CBCD, LIVER, VITD, GGTP,CK. BASO% 0.3 % (Normal) Range: 0-1 EO% 4.4 % (Normal) Range: 0-5 HCT 39.6 % (Normal) Range: 37-47 HGB 13.6 g/dL (Normal) Range: 12.0-16.0 LY% 45.0 % (Abnormal) Range: 19-41 MCH 31.3 pg (Normal) Range: 27.0-32.0 MCHC 34.3 g/dL (Normal) Range: 32-36 MCV 91.0 fL (Normal) Range: 81-99 MONO% 7.2 % (Normal) Range: 0-10 MPV 8.3 fL (Normal) Range: 6.5-12.0 NEUT% 43.1 % (Abnormal) Range: 47-70 PLT 164 K/mm3 (Normal) Range: 150-450 RBC 4.35 {M/mm3} (Normal) Range: 4.2-5.4 RDW 13.3 % (Normal) Range: 11.6-14.6 WBC 4.3 K/mm3 (Abnormal) Range: 4.4-11.0 :30 CPK TOTAL 111 U/L (Normal) Comments: DR. DAFNE WALDRON PT. DR. DOMINIK WALDRON CBCD, LIVER, VITD, GGTP,CK. Range: 21-215 :30 GGTP 133 U/L (Abnormal) Comments: DR. DAFNE WALDRON PT. DR. DOMINIK WALDORN CBCD, LIVER, VITD, GGTP,CK. Range: 5-55 :30 LIVER Comments: DR. DAFNE WALDRON PT. DR. DOMINIK WALDRON CBCD, LIVER, VITD, GGTP,CK. ALB 3.7 g/dL (Normal) Range: 3.4-5.0 ALK P 58 U/L (Normal) Range: 50-136 ALT 8 U/L (Abnormal) Range: 30-65 AST 32 U/L (Normal) Range: 15-37 D BILI 0.07 mg/dL (Normal) Range: 0.00-0.30 T BILI 0.40 mg/dL (Normal) Range: 0.00-1.00 T PROT 8.0 g/dL (Normal) Range: 6.4-8.2 :30 PRO TIME Comments: DR. DAFNE WALDRON PT. DR. DOMINIK WALDRON CBCD, LIVER, VITD, GGTP,CK. INR 3.2 (Normal) PROTIME 37.2 s (Abnormal) Range: 9.1-11.7 :30 VIT D,25 38036 20.1 ng/mL (Abnormal) Comments: DR. DAFNE WALDRON PT. DR. DOMINIK WALDRON CBCD, LIVER, VITD, GGTP,CK. Range: 32.0-100.0 Comments: Recent studies consider the lower limit of 32.0 ng/mL to kizzy threshold for optimal health.Helder NIEVES. J Nutr. 2004;135(2):317-22.Performed At: [facility] [place], [place] [id number] :32 PRO TIME INR 3.2 (Normal) PROTIME 37.7 s (Abnormal) Range: 9.1-11.7 :32 PT/INR, Office ([id number]) INR 3.5 (Normal) :38 PT/INR, Office (83789) Comments: done BC INR 3.9 (Normal) PT (PROTHROMBIN TIME) INR 3.9 s (Normal) Range: 11.5-13.5 :51 PT/INR, Office (82215) INR 3.4 (Normal) PT (PROTHROMBIN TIME) INR-3.4 s (Normal) Range: 11.5-13.5 :07 PT/INR, Office (60246) INR 2.9 (Normal) PT (PROTHROMBIN TIME) INR-2.9 s (Normal) Range: 11.5-13.5 :56 PRO TIME INR 8.6 (Abnormal) PROTIME 87.1 s (Abnormal) Range: 10.6-13.2 :50 PT/INR, Office (64304) INR 2.5 (Normal) :30 Urinalysis, Office (51979) UA - BILIRUBIN Negative (Normal) UA - BLOOD Non Hemolyzed Moderate (Normal) UA - GLUCOSE Negative (Normal) UA - KETONES Negative mg/dL (Normal) UA - LEUKOCYTE ESTERASE Trace (Normal) UA - NITRITE Negative (Normal) UA - PH 7.0 (Normal) UA - PROTEIN 30 mg/dL (Normal) UA - SPECIFIC GRAVITY 1.010 (Normal) URINE UROBILINGN KEERTHI TIMED Normal mg/dL (Normal) 26-Xtl-58345:38 SED RATE ERYTHROCYTE (28307) Comments: PATIENT NOT FASTINGClinical Information: ADD DRAW FEE [id number] ADD J 26900 PERFORMED BY: [facility] InstituteVweygn[address] [facility] [id number] Sedimentation Rate-Westergren 57 mm/h (Abnormal) Range: 0-30 54-Gvm-268185:58 BILAT SCRN DIGITAL & CAD Radiology Report See Note (Normal) Comments: Exam Number: [id number] DIGITAL SCREENING MAMMOGRAMS WITH CAD COMPARISON STUDIESSept2004 and February 2004. TECHNIQUERoutine craniocaudal and mediolateral oblique views are obtained ofeach breast using digital technique. CAD is also performed. There is mild breast density bilaterally. There is no worrisome mass,typically malignant-type microcalcification or architecturaldistortion in either breast. There is no significant interval changesince April 2005 and February 2004. IMPRESSIONNo mammographic evidence for cancer in either breast. Routinebilateral annual screening assessment is recommended. BIRADS Category 1. Negative. A letter regarding the results has been sent to the patient. This interpretation was rendered by a radiologist certified underthe Mammography Quality Standards Act of 199 2 (MQSA). The mammogramswere also examined with computer-aided detection software([employer] Reported By: WHITLEY CONTE M.D. 75-Hgu-[id number]:57 DEXA BONE DENSITY STUDY (HP) Radiology Report See Note (Normal) Comments: Exam Number: [id number] DEXA BONE DENSITY STUDY HISTORYPostmenopausal. COMPARISON STUDYApr2001 Study was performed using holoRoutezilla unit. The lumbar spine is measured from L1 through L4 w ith an avera ge bonemineral density of 0.871 g/cm2 with a T-score of -1.6 and a Z-score of-0.5. Compared to the study of December 14, 2001, the bone density hasdiminished by 9.2% which is significant. These values re presentosteopenia by WHO classification with a moderate increased risk forfracture. The left hip was also assessed. The left femoral neck was measured at0.720 g/cm2 with a T-score of -1.2 and a Z-score of -0.2. Thisrepresents osteopenia by WHO classification with moderate increasedrisk for fracture. For the total left hip, the bone mineral densitywas measured at 0.923 g/cm2 with a T-score of -0.2 a nd a Z-scoreof 0.6. This represents normal bone density by WHO classificationwith normal risk for fracture. Compared to the previous study ofDecember 15, 2003, bone density has diminished by 7.4% which i ssignificant. IMPRESSIONPatient meets classification of osteopenia by WHO criteria withmoderate increased risk for fracture. Compared to the previous studyof December 14, 2001, there has been a significant decrease. Reported By: VANE SWIFT M.D. 01-Sos-286148:20 BRITTNEE (ANTINUCLEAR ANTIBODY) Comments: PATIENT NOT FASTINGPERFORMED BY: [employer] [employer] [place] [id number] ([id number]) Antinuclear Antibodies Direct 29 AU/mL (Normal) Range: 0-99 Comments: Negative <100 Equivocal 100 - 120 Positive >120 95-Jui-030598:20 C-REACTIVE PROTEIN (10262) Comments: PATIENT NOT FASTINGPERFORMED BY: [employer] [employer] [place] [id number] C-Reactive Protein, Quant 1.1 mg/L (Normal) Range: 0.0-4.9 40-Hwz-952220:20 Folate (68272) Comments: PATIENT NOT FASTINGClinical Information: ADD DRAW FEE [id number] ADD J 98053 PERFORMED BY: [employer] [place] [id number] Folate (Folic Acid), Serum >24.0 ng/mL (Normal) Comments: Indeterminate: 3.4 - 5.4 Deficient: <3.4 91-Ytr-120698:20 RHEUMATOID FACTOR-QUANT (04931) Comments: PATIENT NOT FASTINGPERFORMED BY: [employer] [place] [id number] RA Latex Turbid. 7.9 {IU/mL} (Normal) Range: 0.0-13.9 52-Vzx-191429:20 SED RATE ERYTHROCYTE (41732) Comments: PATIENT NOT FASTINGPERFORMED BY: [facility] InstituteMaibpo[address] [facility] [id number] Sedimentation Rate-Westergren 80 mm/h (Abnormal) Range: 0-30 33-Gly-041452:20 VITAMIN B-12 (CYANOCOBALAMIN) Comments: PATIENT NOT FASTINGPERFORMED BY: [facility] Fvvheo[address] [facility] [id number] (96062) Vitamin B12 >2000 pg/mL (Abnormal) Range: 211-911 36-Cir-135809:30 PT/INR, Office (60551) Comments: done kmgoal is 3-4 INR 3.8 (Normal) :20 CBCD,SMEAR DIFF CELLS COUNTED 100 (Normal) EOS 9 % (Abnormal) Range: 0-5 HCT 37.3 % (Normal) Range: 37-47 HGB 12.8 g/dL (Normal) Range: 12.0-16.0 LYMPH 46 % (Abnormal) Range: 19-41 MCH 30.1 pg (Normal) Range: 27.0-32.0 MCHC 34.3 g/dL (Normal) Range: 32-36 MCV 87.7 fL (Normal) Range: 81-99 MONOCYTE 1 % (Normal) Range: 0-10 PLT 198 K/mm3 (Normal) Range: 150-450 PLT EST SeeNote (Normal) Comments: Result: ADEQUATE RBC 4.25 {M/mm3} (Normal) Range: 4.2-5.4 RDW 12.9 % (Normal) Range: 11.6-14.6 RED CELL MORPH SeeNote {NORMAL} (Normal) Comments: Result: NORM C+C SEGS 44 % (Abnormal) Range: 47-70 WBC 3.6 K/mm3 (Abnormal) Range: 4.4-11.0 :20 COMP METABOLIC A/G 0.9 {RATIO} (Normal) Range: 0.9-2.4 ALB 3.9 g/dL (Normal) Range: 3.4-5.0 ALK P 43 U/L (Abnormal) Range: 50-136 ALT 21 [iU]/L (Abnormal) Range: 30-65 AST 42 U/L (Abnormal) Range: 15-37 BUN 16 mg/dL (Normal) Range: 7-18 BUN/CRE 22.9 {RATIO} (Abnormal) Range: 10-20 CA 8.9 mg/dL (Normal) Range: 8.5-10.1 CL 104 mmol/L (Normal) Range: 98-107 CO2 29.5 mmol/L (Normal) Range: 21.0-32.0 Comments: Please Note Reference Interval Change CREAT,SERUM 0.7 mg/dL (Normal) Range: 0.6-1.0 GAP 6 (Normal) Range: 5-15 GLOB 4.2 g/dL (Normal) Range: 2.7-4.2 Comments: Please Note Reference Interval Change GLU 95 mg/dL (Normal) Range: 70-110 K 4.1 mmol/L (Normal) Range: 3.5-5.1 NA 139 mmol/L (Normal) Range: 136-145 T BILI 0.37 mg/dL (Normal) Range: 0.00-1.00 T PROT 8.1 g/dL (Normal) Range: 6.4-8.2 :20 LIPID CHOL 178 mg/dL (Normal) Comments: <200 mg/dL Desirable 200-240 mg/dL Borderline >240 mg/dL High Risk HDL 37 mg/dL (Normal) Comments: Reference Range HDL <40 mg/dL Low HDL Cholesterol HDL >or= 60 mg/dL High HDL Cholesterol LDL 99 mg/dL (Normal) Range: 0-130 TRIG 212 mg/dL (Abnormal) Comments: Serum Triglycerides Reference Interval Normal <150 mg/dL Borderline high 150 - 199 mg/dL High 200 - 499 mg/dL Very High > or = 500 mg/dL VLDL 42 mg/dL (Abnormal) Range: 5-40 :20 PRO TIME INR 5.3 (Abnormal) Comments: CRITICAL VALUE REPEATED AND VERIFIED. CALLED TO VKPGMQC30/11/08 1203 AARON BHATIA.RESULTS READ BACK BY PRASHANTH ALLEN . PROTIME 55.3 s (Abnormal) Range: 10.6-13.2 :20 TSH 0.79 {uIU/mL} (Normal) Range: 0.34-4.82 :29 PT/INR, Office ([id number]) INR 2.5 (Normal) Comments: aw :10 TROPONIN-I < 0.04 ng/mL (Normal) Comments: TROPONIN-I EXPECTED VALUES < 0.50 NEGATIVE 0.50 - 1.49 INDETERMINANT > OR = 1.50 SUGGEST MO :11 BMP Comments: INDICATE CK '1', '2', '3', OR 'R' FOR RANDOM: 1 BUN 17 mg/dL (Normal) Range: 7-18 BUN/CRE 21.3 {RATIO} (Abnormal) Range: 10-20 CA 9.3 mg/dL (Normal) Range: 8.5-10.1 CL 104 mmol/L (Normal) Range: 98-107 CO2 25.2 mmol/L (Normal) Range: 21.0-32.0 Comments: Please Note Reference Interval Change CREAT,SERUM 0.8 mg/dL (Normal) Range: 0.6-1.0 GAP 10 (Normal) Range: 5-15 K 4.0 mmol/L (Normal) Range: 3.5-5.1 NA 139 mmol/L (Normal) Range: 136-145 GLU 108 mg/dL (Normal) Range: 70-110 :11 CBCD BASO% 0.2 % (Normal) Range: 0-1 EO% 0.5 % (Normal) Range: 0-5 HCT 38.4 % (Normal) Range: 37-47 HGB 13.2 g/dL (Normal) Range: 12.0-16.0 LY% 23.0 % (Normal) Range: 19-41 MCH 30.3 pg (Normal) Range: 27.0-32.0 MCHC 34.5 g/dL (Normal) Range: 32-36 MCV 88.0 fL (Normal) Range: 81-99 MONO% 5.9 % (Normal) Range: 0-10 MPV 7.0 fL (Normal) Range: 6.5-12.0 NEUT% 70.4 % (Abnormal) Range: 47-70 PLT 202 K/mm3 (Normal) Range: 150-450 RBC 4.36 {M/mm3} (Normal) Range: 4.2-5.4 RDW 12.9 % (Normal) Range: 11.6-14.6 WBC 5.6 K/mm3 (Normal) Range: 4.4-11.0 :11 CPK TOTAL 72 U/L (Normal) Comments: INDICATE CK '1', '2', '3', OR 'R' FOR RANDOM: 1 Range: 21-215 :11 CPKMB < 0.5 ng/mL (Normal) Comments: INDICATE CK '1', '2', '3', OR 'R' FOR RANDOM: 1 Range: 0.0-5.0 Comments: CK-MB and RI Interpretation MB Relative Index Non-AMI <or= 5 NA Indeterminate > 5 <or= 4 AMI > 5 > 4 :11 PRO TIME INR 4.6 (Abnormal) Comments: RESULTS CALLED TO TAMEKA SILVA 05/05/07 ADEEL MCKAYREPORT READ BACK BY SAME . PROTIME 48.9 s (Abnormal) Range: 10.6-13.2 :11 PTT 66.6 s (Abnormal) Range: 24.6-36.6 :11 TROPONIN-I < 0.04 ng/mL (Normal) Comments: INDICATE CK '1', '2', '3', OR 'R' FOR RANDOM: 1 Comments: TROPONIN-I EXPECTED VALUES < 0.50 NEGATIVE 0.50 - 1.49 INDETERMINANT > OR = 1.50 SUGGEST MO :03 BRAIN/HEAD WITHOUT CONTRAST Radiology Report See Note (Normal) Comments: Exam Number: [id number] CT SCAN OF BRAIN HISTORYVertigo. Ataxia. Possible hemorrhage posterior circulation. TECHNIQUEConsecutive axial scans were obtained at 2.5-mm intervals through theposterior fossa and 5-mm intervals through the remainder of the brain.This study was performed without intravenous contrast enhancement. FINDINGSNo focal area of abnormal attenuation is seen within the brainparenchyma . Sulci and ventricles are within normal limits. Theamount of CSF in the region of the sella appears somewhat generous. If there is clinical concern of an empty sella, MR could be performed.MRI would also be helpful if the patient's posterior fossa symptomspersist. There is no shift of midline, mass effect, extraaxialcollection, or acute intracranial bleed is identified. IMPRESSIONNo acute abnormal ity is identified. A note is made of slightprominence of CSF in the region of the sella. If there is clinicalconcern of an empty sella, MR could be performed. Reported By: NATY LANTIGUA M.D. :42 PT/INR, Office ([id number]) INR 2.8 (Normal) :02 PRO TIME INR 4.3 (Abnormal) PROTIME 48.1 s (Abnormal) Range: 10.6-13.2 Comments: Please Note Reference Interval Change :26 PRO TIME INR 3.5 (Normal) PROTIME 38.2 s (Abnormal) Range: 11.7-13.3 :58 PRO TIME INR 2.6 (Normal) PROTIME 29.6 s (Abnormal) Range: 11.7-13.3 :24 PRO TIME INR 5.6 (Abnormal) Comments: CRITICAL VALUE REPEATED AND VERIFIED. CALLED TO PRASHANTH ALLEN11/22/06 1024 SALLY AKBAR.RESULTS READ BACK BY PRASHANTH . PROTIME 58.6 s (Abnormal) Range: 11.7-13.3 :03 PRO TIME INR 2.8 (Normal) PROTIME 31.6 s (Abnormal) Range: 11.7-13.3 :24 PRO TIME INR 5.1 (Abnormal) Comments: CRITICAL VALUE REPEATED AND VERIFIED. CALLED TO SEAN 11/12/06 1438 RUMA GUEVARA.RESULTS READ BACK BY KARISSA. PROTIME 53.8 s (Abnormal) Range: 11.7-13.3 :17 PT/INR, Office ([id number]) INR 3.6 (Normal) PT (PROTHROMBIN TIME) 22.8 s (Abnormal) Range: 11.5-13.5 :03 PT/INR, Office (25602) Comments: no change recheck 1 wk; Pt. on M,W,F 4mg others 2mg qd. INR 3.9 (Normal) Plan of Care Name Dates Details Instructions Confusion : Follow up if no improvement or if symptoms worsen Indication: Confusion BMI 31.0-31.9,adult : Eprescribed prescriptions (G8553) Indication: BMI 31.0-31.9,adult Sepsis with hypotension : Reviewed Lab Indication: Sepsis with hypotension Sepsis with hypotension : Reviewed Diagnostic Tests Indication: Sepsis with hypotension Sepsis with hypotension : Reviewed Technical Publications Manager Letter Indication: Sepsis with hypotension GERD (gastroesophageal reflux disease) : GERD Education Indication: GERD (gastroesophageal reflux disease) Hyperlipidemia : Cholesterol mgmt Indication: Hyperlipidemia Hypertension with renal disease : Diet, Exercise, and Wt loss Indication: Hypertension with renal disease Hypertension with renal disease : HTN/CAD Red Flags Indication: Hypertension with renal disease Uncontrolled type II diabetes mellitus : Follow up in 3 months Indication: Uncontrolled type II diabetes mellitus Uncontrolled type II diabetes mellitus : Eprescribed prescriptions (G8553) Indication: Uncontrolled type II diabetes mellitus Uncontrolled type II diabetes mellitus : Follow up in 3 months Indication: Uncontrolled type II diabetes mellitus Atrial fibrillation, unspecified type : Continue Current Prescription(s) Indication: Atrial fibrillation, unspecified type Hyperlipidemia : Cholesterol mgmt Indication: Hyperlipidemia Hypertension with renal disease : HTN/CAD Red Flags Indication: Hypertension with renal disease Uncontrolled type II diabetes mellitus : *Diabetes Education Indication: Uncontrolled type II diabetes mellitus Vomiting : Eprescribed prescriptions (G8553) Indication: Vomiting Uncontrolled type II diabetes mellitus : Follow up in 3 months Indication: Uncontrolled type II diabetes mellitus Hypercholesterolemia : Cholesterol mgmt Indication: Hypercholesterolemia Hypertension with renal disease : HTN/CAD Red Flags Indication: Hypertension with renal disease Uncontrolled type II diabetes mellitus : *Diabetes Education Indication: Uncontrolled type II diabetes mellitus Hypertension with renal disease : BP MONITORING - SELF Indication: Hypertension with renal disease Hypertension with renal disease : Continue Current Prescription(s) Indication: Hypertension with renal disease Atrial fibrillation, unspecified type : Reviewed Technical Publications Manager Letter Indication: Atrial fibrillation, unspecified type Hypertension with renal disease : Follow up in 2ish weeks Indication: Hypertension with renal disease Hypertension with renal disease : BP MONITORING - SELF Indication: Hypertension with renal disease Seizure : Reviewed Lab Indication: Seizure Seizure : Reviewed Diagnostic Tests:- cat scan brain Indication: Seizure Seizure : Reviewed Technical Publications Manager Letter Indication: Seizure Controlled diabetes mellitus type II without complication : Follow up in 3 months Indication: Controlled diabetes mellitus type II without complication Seizure : Reviewed Technical Publications Manager Letter Indication: Seizure Controlled diabetes mellitus type II without complication : *Diabetes Education Indication: Controlled diabetes mellitus type II without complication Hypertension with renal disease : HTN/CAD Red Flags Indication: Hypertension with renal disease Hypercholesterolemia : Cholesterol mgmt Indication: Hypercholesterolemia Annual Medicare Phyiscal WITHOUT abnormal findings (Renamed from Encounter for general adult medical examination without abnormal findings) : fall reduction handout Indication: Annual Medicare Phyiscal WITHOUT abnormal findings (Renamed from Encounter for general adult medical examination without abnormal findings) Annual Medicare Phyiscal WITHOUT abnormal findings (Renamed from Encounter for general adult medical examination without abnormal findings) : elderly packet given Indication: Annual Medicare Phyiscal WITHOUT abnormal findings (Renamed from Encounter for general adult medical examination without abnormal findings) Annual Medicare Phyiscal WITHOUT abnormal findings (Renamed from Encounter for general adult medical examination without abnormal findings) : advance planning information Indication: Annual Medicare Phyiscal WITHOUT abnormal findings (Renamed from Encounter for general adult medical examination without abnormal findings) Annual Medicare Phyiscal WITHOUT abnormal findings (Renamed from Encounter for general adult medical examination without abnormal findings) : Self breast exam Indication: Annual Medicare Phyiscal WITHOUT abnormal findings (Renamed from Encounter for general adult medical examination without abnormal findings) Encounter for screening for malignant neoplasm of colon (Renamed from Special screening for malignant neoplasms, colon) : *Colon Cancer Screening Indication: Encounter for screening for malignant neoplasm of colon (Renamed from Special screening for malignant neoplasms, colon) Seizure : Reviewed Technical Publications Manager Letter Indication: Seizure Cerebral hemorrhage : Reviewed Technical Publications Manager Letter: currently in OT Indication: Cerebral hemorrhage Hypertension with renal disease : Continue Current Prescription(s) Indication: Hypertension with renal disease UTI (urinary tract infection), bacterial : Reviewed Lab Indication: UTI (urinary tract infection), bacterial Cerebral hemorrhage : Reviewed Lab Indication: Cerebral hemorrhage Cerebral hemorrhage : Reviewed Diagnostic Tests Indication: Cerebral hemorrhage Cerebral hemorrhage : Reviewed Technical Publications Manager Letter Indication: Cerebral hemorrhage Current non-smoker : Follow up in 2 weeks Indication: Current non-smoker Right hip pain : Eprescribed prescriptions (G8553) Indication: Right hip pain Elevated blood pressure reading : BP MONITORING - SELF Indication: Elevated blood pressure reading Sinusitis, bacterial : Sinusitis *: sinus infection Indication: Sinusitis, bacterial Current non-smoker : Follow up if no improvement or if symptoms worsen Indication: Current non-smoker Current non-smoker : Eprescribed prescriptions (G8553) Indication: Current non-smoker Hypertension with renal disease : Continue Current Prescription(s) Indication: Hypertension with renal disease Controlled diabetes mellitus type II without complication : Follow up in 3 month/or when returns from [facility] Indication: Controlled diabetes mellitus type II without complication Hypercholesterolemia : Cholesterol mgmt Indication: Hypercholesterolemia Controlled diabetes mellitus type II without complication : Eprescribed prescriptions (G8553) Indication: Controlled diabetes mellitus type II without complication Controlled diabetes mellitus type II without complication : Diabetes and Exercise: Preventing Low Blood Sugar: blood sugar Indication: Controlled diabetes mellitus type II without complication Hypertension with renal disease : Follow up in 4-5 weeks Indication: Hypertension with renal disease Hypertension with renal disease : Continue Current Prescription(s) Indication: Hypertension with renal disease Hypertension with renal disease : Reviewed Lab Indication: Hypertension with renal disease Hypertension with renal disease : Follow up in 3 weeks Indication: Hypertension with renal disease Hypertension with renal disease : Diet, Exercise, and Wt loss Indication: Hypertension with renal disease Hypertension with renal disease : HTN/CAD Red Flags Indication: Hypertension with renal disease Leukopenia : Reviewed Lab Indication: Leukopenia Hypercholesterolemia : Cholesterol mgmt Indication: Hypercholesterolemia Osteopenia : Reviewed Diagnostic Tests Indication: Osteopenia GERD (gastroesophageal reflux disease) : GERD Education Indication: GERD (gastroesophageal reflux disease) Controlled diabetes mellitus type II without complication : Follow up in 3 months Indication: Controlled diabetes mellitus type II without complication Controlled diabetes mellitus type II without complication : *Diabetes Education Indication: Controlled diabetes mellitus type II without complication Need for prophylactic vaccination and inoculation against influenza : Flu (Influenza) *: flu shot Indication: Need for prophylactic vaccination and inoculation against influenza Type 2 diabetes mellitus, controlled, with renal complications : Eprescribed prescriptions (G8553) Indication: Type 2 diabetes mellitus, controlled, with renal complications Type 2 diabetes mellitus, controlled, with renal complications : Follow up in 6 months Indication: Type 2 diabetes mellitus, controlled, with renal complications Osteopenia : *Calcium Education (KF) Indication: Osteopenia Type 2 diabetes mellitus, controlled, with renal complications : Reviewed Lab Indication: Type 2 diabetes mellitus, controlled, with renal complications Type 2 diabetes mellitus, controlled, with renal complications : *Diabetes Education Indication: Type 2 diabetes mellitus, controlled, with renal complications Hyperlipidemia : Cholesterol mgmt Indication: Hyperlipidemia GERD (gastroesophageal reflux disease) : GERD Education Indication: GERD (gastroesophageal reflux disease) Type 2 diabetes mellitus, controlled, with renal complications : Eprescribed prescriptions (G8553) Indication: Type 2 diabetes mellitus, controlled, with renal complications Type 2 diabetes mellitus, controlled, with renal complications : Diabetes and Exercise: Preventing Low Blood Sugar: blood sugar Indication: Type 2 diabetes mellitus, controlled, with renal complications Type 2 diabetes mellitus, controlled, with renal complications : Follow up in 3 months Indication: Type 2 diabetes mellitus, controlled, with renal complications Vitamin D deficiency, unspecified : Continue Current Prescription(s) Indication: Vitamin D deficiency, unspecified Osteopenia : *Calcium Education (KF) Indication: Osteopenia Hyperlipidemia : Cholesterol mgmt Indication: Hyperlipidemia Type 2 diabetes mellitus, controlled, with renal complications : *Diabetes Education Indication: Type 2 diabetes mellitus, controlled, with renal complications Hypercholesterolemia : Cholesterol mgmt Indication: Hypercholesterolemia Type 2 diabetes mellitus, controlled, with renal complications : Follow up in 3 months Indication: Type 2 diabetes mellitus, controlled, with renal complications Type 2 diabetes mellitus, controlled, with renal complications : Diabetes Mellitus: Type 2 *: blood sugar Indication: Type 2 diabetes mellitus, controlled, with renal complications Type 2 diabetes mellitus, controlled, with renal complications : Follow up in 3 months Indication: Type 2 diabetes mellitus, controlled, with renal complications Hypercholesterolemia : Cholesterol mgmt Indication: Hypercholesterolemia GERD (gastroesophageal reflux disease) : GERD Education Indication: GERD (gastroesophageal reflux disease) Vitamin D deficiency, unspecified : Reviewed Lab Indication: Vitamin D deficiency, unspecified Vitamin D deficiency, unspecified : Continue Current Prescription(s) Indication: Vitamin D deficiency, unspecified Osteopenia : *Calcium Education (KF) Indication: Osteopenia Hypercholesterolemia : *Cholesterol - Medication Side Effects Indication: Hypercholesterolemia Type 2 diabetes mellitus, controlled, with renal complications : Follow up in 3 months Indication: Type 2 diabetes mellitus, controlled, with renal complications Type 2 diabetes mellitus, controlled, with renal complications : *Diabetes Education Indication: Type 2 diabetes mellitus, controlled, with renal complications Hypercholesterolemia : Cholesterol mgmt Indication: Hypercholesterolemia GERD (gastroesophageal reflux disease) : GERD Education Indication: GERD (gastroesophageal reflux disease) Type 2 diabetes mellitus, controlled, with renal complications : Diabetes Overview (Living with Diabetes): diabetes type 2 Indication: Type 2 diabetes mellitus, controlled, with renal complications Dysuria : Urinary Tract Infection in Women *: bladder Indication: Dysuria Controlled diabetes mellitus type II without complication : Follow up in 3 months Indication: Controlled diabetes mellitus type II without complication Vitamin D deficiency, unspecified : Reviewed Lab Indication: Vitamin D deficiency, unspecified Hypercholesterolemia : Reviewed Lab Indication: Hypercholesterolemia GERD (gastroesophageal reflux disease) : GERD Education Indication: GERD (gastroesophageal reflux disease) Controlled diabetes mellitus type II without complication : Diet, Exercise, and Wt loss Indication: Controlled diabetes mellitus type II without complication Controlled diabetes mellitus type II without complication : *Diabetes Education Indication: Controlled diabetes mellitus type II without complication Hypercholesterolemia : *Cholesterol - Nonprescription Treatment Indication: Hypercholesterolemia Hypercholesterolemia : Cholesterol mgmt Indication: Hypercholesterolemia Hypercholesterolemia : Diabetes and Exercise: Preventing Low Blood Sugar: diabetes exercise Indication: Hypercholesterolemia Hyperlipidemia : Continue Current Prescription(s) Indication: Hyperlipidemia Hyperlipidemia : Cholesterol mgmt Indication: Hyperlipidemia Vitamin D deficiency, unspecified : *ERGOCALCIFEROL DOSAGE PER [place] Indication: Vitamin D deficiency, unspecified Hypercholesterolemia : Cholesterol mgmt Indication: Hypercholesterolemia Hypercholesterolemia : *Cholesterol - Nonprescription Treatment Indication: Hypercholesterolemia Osteopenia : *Bisphosphonate Education Indication: Osteopenia Osteopenia : *Calcium Education (KF) Indication: Osteopenia GERD (gastroesophageal reflux disease) : GERD Education Indication: GERD (gastroesophageal reflux disease) Controlled diabetes mellitus type II without complication : Diet, Exercise, and Wt loss Indication: Controlled diabetes mellitus type II without complication Controlled diabetes mellitus type II without complication : *Diabetes Education Indication: Controlled diabetes mellitus type II without complication Controlled diabetes mellitus type II without complication : Follow up in 2-2 1/2 months Indication: Controlled diabetes mellitus type II without complication Pharyngitis, acute : *URI Treatment Indication: Pharyngitis, acute Pharyngitis, acute : Sore throat: diagnosis and treatment Indication: Pharyngitis, acute Controlled diabetes mellitus type II without complication : FOLLOW UP IN 3 MONTHS Indication: Controlled diabetes mellitus type II without complication Hyperlipidemia : CHOLESTEROL MGMT. Indication: Hyperlipidemia Hyperlipidemia : *Cholesterol - Nonprescription Treatment Indication: Hyperlipidemia Controlled diabetes mellitus type II without complication : Diet, Exercise, and Wt loss Indication: Controlled diabetes mellitus type II without complication Controlled diabetes mellitus type II without complication : *Diabetes Education Indication: Controlled diabetes mellitus type II without complication Well woman exam : Shingles Vaccine Education 2005 Indication: Well woman exam Well woman exam : *Colon Cancer Screening Indication: Well woman exam Well woman exam : SELF BREAST EXAM Indication: Well woman exam Osteopenia : *Bisphosphonate Education Indication: Osteopenia Osteopenia : *Calcium Education (KF) Indication: Osteopenia Abnormal CT of brain : Reviewed Diagnostic Tests Indication: Abnormal CT of brain Controlled diabetes mellitus type II without complication : FOLLOW UP IN 3 MONTHS Indication: Controlled diabetes mellitus type II without complication Hyperlipidemia : *Cholesterol - Medication Side Effects Indication: Hyperlipidemia Hyperlipidemia : CHOLESTEROL MGMT. Indication: Hyperlipidemia Hyperlipidemia : *Cholesterol - Nonprescription Treatment Indication: Hyperlipidemia Controlled diabetes mellitus type II without complication : Diet, Exercise, and Wt loss Indication: Controlled diabetes mellitus type II without complication Controlled diabetes mellitus type II without complication : *Diabetes Education Indication: Controlled diabetes mellitus type II without complication Abnormality of gait : FOLLOW UP - MAKE APPT AFTER DIAGNOSTIC TESTS Indication: Abnormality of gait Controlled diabetes mellitus type II without complication : FOLLOW UP IN 3 MONTHS Indication: Controlled diabetes mellitus type II without complication Hypercholesterolemia : CHOLESTEROL MGMT. Indication: Hypercholesterolemia Hypercholesterolemia : *Cholesterol - Nonprescription Treatment Indication: Hypercholesterolemia Controlled diabetes mellitus type II without complication : Diet, Exercise, and Wt loss Indication: Controlled diabetes mellitus type II without complication Controlled diabetes mellitus type II without complication : Diet, Exercise, and Wt loss Indication: Controlled diabetes mellitus type II without complication Controlled diabetes mellitus type II without complication : *Diabetes Education Indication: Controlled diabetes mellitus type II without complication Controlled diabetes mellitus type II without complication : FOLLOW UP IN 3 MONTHS Indication: Controlled diabetes mellitus type II without complication Controlled diabetes mellitus type II without complication : Reviewed Lab Indication: Controlled diabetes mellitus type II without complication Hypercholesterolemia : CHOLESTEROL MGMT. Indication: Hypercholesterolemia Hypercholesterolemia : *Cholesterol - Nonprescription Treatment Indication: Hypercholesterolemia Hypercholesterolemia : *Cholesterol - Medication Side Effects Indication: Hypercholesterolemia Osteopenia : *Calcium Education (KF) Indication: Osteopenia GERD (gastroesophageal reflux disease) : GERD Education Indication: GERD (gastroesophageal reflux disease) Controlled diabetes mellitus type II without complication : Diet, Exercise, and Wt loss Indication: Controlled diabetes mellitus type II without complication Controlled diabetes mellitus type II without complication : *Diabetes Education Indication: Controlled diabetes mellitus type II without complication Elevated blood-pressure reading without diagnosis of hypertension : BP MONITORING - SELF Indication: Elevated blood-pressure reading without diagnosis of hypertension Controlled diabetes mellitus type II without complication : FOLLOW UP IN 3 MONTHS Indication: Controlled diabetes mellitus type II without complication GERD (gastroesophageal reflux disease) : GERD Education Indication: GERD (gastroesophageal reflux disease) CHF (congestive heart failure) : Reviewed Technical Publications Manager Letter Indication: CHF (congestive heart failure) CHF (congestive heart failure) : Continue Current Prescription(s) Indication: CHF (congestive heart failure) Osteopenia : *Calcium Education (KF) Indication: Osteopenia Hypercholesterolemia : CHOLESTEROL MGMT. Indication: Hypercholesterolemia Hypercholesterolemia : *Cholesterol - Nonprescription Treatment Indication: Hypercholesterolemia Hypercholesterolemia : *Cholesterol - Medication Side Effects Indication: Hypercholesterolemia Controlled diabetes mellitus type II without complication : *Diabetes Education Indication: Controlled diabetes mellitus type II without complication Abnormal cardiac function test : Reviewed Diagnostic Tests Indication: Abnormal cardiac function test Uncontrolled type II diabetes mellitus : Diet, Exercise, and Wt loss Indication: Uncontrolled type II diabetes mellitus Vitamin D deficiency, unspecified : Reviewed Lab Indication: Vitamin D deficiency, unspecified Hypercholesterolemia : Cholesterol - Nonprescription Treatment Indication: Hypercholesterolemia Hypercholesterolemia : CHOLESTEROL MGMT. Indication: Hypercholesterolemia Hypercholesterolemia : Cholesterol - Medication Side Effects Indication: Hypercholesterolemia Uncontrolled type II diabetes mellitus : Reviewed Lab Indication: Uncontrolled type II diabetes mellitus SOB (shortness of breath) on exertion : Reviewed Diagnostic Tests Indication: SOB (shortness of breath) on exertion Elevated blood-pressure reading without diagnosis of hypertension : FOLLOW UP - MAKE APPT AFTER DIAGNOSTIC TESTS Indication: Elevated blood-pressure reading without diagnosis of hypertension Elevated blood-pressure reading without diagnosis of hypertension : FOLLOW UP IF NO IMPROVEMENT OR IF SYMPTOMS WORSEN Indication: Elevated blood-pressure reading without diagnosis of hypertension Osteopenia : Bisphosphonate Education Indication: Osteopenia Elevated blood-pressure reading without diagnosis of hypertension : Diet, Exercise, and Wt loss Indication: Elevated blood-pressure reading without diagnosis of hypertension Elevated blood-pressure reading without diagnosis of hypertension : HTN/CAD [place] Indication: Elevated blood-pressure reading without diagnosis of hypertension Elevated blood-pressure reading without diagnosis of hypertension : FOLLOW UP IN 1 MONTH Indication: Elevated blood-pressure reading without diagnosis of hypertension Vitamin D deficiency, unspecified : Continue Current Prescription(s) Indication: Vitamin D deficiency, unspecified Elevated blood-pressure reading without diagnosis of hypertension : BP MONITORING - SELF ck more readings adn see if need rx Indication: Elevated blood-pressure reading without diagnosis of hypertension Osteopenia : Calcium Education (KF) Indication: Osteopenia Hyperlipidemia : CHOLESTEROL MGMT. Indication: Hyperlipidemia Hyperlipidemia : Cholesterol - Medication Side Effects Indication: Hyperlipidemia Hyperlipidemia : Cholesterol - Nonprescription Treatment Indication: Hyperlipidemia FOLLOW UP NEEDED Acute sinusitis, unspecified : *URI Treatment Indication: Acute sinusitis, unspecified Acute sinusitis, unspecified : Antibiotic Usage Education - Female Indication: Acute sinusitis, unspecified Acute sinusitis, unspecified : URI Symptoms Indication: Acute sinusitis, unspecified GERD (gastroesophageal reflux disease) : GERD Education Indication: GERD (gastroesophageal reflux disease) Osteopenia : Well Female Maintenance (KF) Indication: Osteopenia Hyperlipidemia : Cholesterol - Medication Side Effects Indication: Hyperlipidemia Hyperlipidemia : Cholesterol - Nonprescription Treatment Indication: Hyperlipidemia Hyperlipidemia : CHOLESTEROL MGMT. Indication: Hyperlipidemia Osteopenia : Well Female Maintenance (KF) Indication: Osteopenia GERD (gastroesophageal reflux disease) : GERD Education Indication: GERD (gastroesophageal reflux disease) Hypercholesterolemia : CHOLESTEROL MGMT. Indication: Hypercholesterolemia Hypercholesterolemia : Cholesterol - Medication Side Effects Indication: Hypercholesterolemia Hypercholesterolemia : Cholesterol - Nonprescription Treatment Indication: Hypercholesterolemia Osteopenia : Well Female Maintenance (KF) Indication: Osteopenia Polymyalgia rheumatica : FOLLOW UP IN 2 WEEKS Indication: Polymyalgia rheumatica Colon Cancer Screening Well Female Maintenance (KF) Fatigue : *fatigue education Indication: Fatigue Hypercholesterolemia : Diet, Exercise, and Wt loss Indication: Hypercholesterolemia GERD (gastroesophageal reflux disease) : GERD Education Indication: GERD (gastroesophageal reflux disease) Hypercholesterolemia : CHOLESTEROL MGMT. Indication: Hypercholesterolemia Hypercholesterolemia : Cholesterol - Medication Side Effects Indication: Hypercholesterolemia Hypercholesterolemia : Cholesterol - Nonprescription Treatment Indication: Hypercholesterolemia Unspecified bacterial pneumonia : Antibiotic Usage Education - Female Indication: Unspecified bacterial pneumonia Unspecified bacterial pneumonia : Solu Medrol Injection/ Education Indication: Unspecified bacterial pneumonia Hyperlipidemia : Cholesterol - Nonprescription Treatment Indication: Hyperlipidemia Hyperlipidemia : Cholesterol - Medication Side Effects Indication: Hyperlipidemia Coumadin Education GERD (gastroesophageal reflux disease) : GERD Education Indication: GERD (gastroesophageal reflux disease) Osteoarthritis : Diet and Exercise Indication: Osteoarthritis Planned Observations POTASSIUM SERUM ([id number])Indication: Hyperkalemia On: 02-Snb-641639:57 Request Blood Glucose , Office (10383)Indication: Uncontrolled type II diabetes mellitus On: 39-Htk-532594:57 Request Rapid Flu (69223 x 2)Indication: Chills (without fever) On: 0-Xgi-639372:38 Request TSH ([id number])Indication: Atrial fibrillation, unspecified type On: 83-Wns-431181:51 Request URINALYSIS, W/ MICRO ([id number])Indication: Hypertension with renal disease On: 05-Bnq-153008:51 Request MICROALBUMIN: CREATININE RATIO ([id number]) AND ([id number])Indication: Hypertension with renal disease On: 40-Yzx-335454:51 Request METABOLIC PANEL, COMPREHENSIVE (35737)Indication: Hypertension with renal disease On: 20-Sss-179158:51 Request CBC W/AUTO DIFF WBC ([id number])Indication: Hypertension with renal disease On: 41-Qul-835536:51 Request LIPID PANEL (10336)Indication: Hypercholesterolemia On: 92-Llo-135197:51 Request TSH (THYROID STIMULATING HORMONE) ([id number])Indication: DISORDER, PITUITARY NEC On: 07-Kfw-335043:23 Request T3, FREE (TRIDOTHYRONINE) ([id number])Indication: DISORDER, PITUITARY NEC On: :23 Request T4, FREE (THYROXINE) ([id number])Indication: DISORDER, PITUITARY NEC On: :23 Request CALCIFIDIOL (90994) VIT D 25Indication: Vitamin D deficiency, unspecified On: :52 Request TSH ([id number])Indication: Controlled diabetes mellitus type II without complication On: :52 Request URINALYSIS, W/ MICRO ([id number])Indication: Controlled diabetes mellitus type II without complication On: :52 Request MICROALBUMIN: CREATININE RATIO ([id number]) AND ([id number])Indication: Controlled diabetes mellitus type II without complication On: :52 Request METABOLIC PANEL, COMPREHENSIVE (35196)Indication: Controlled diabetes mellitus type II without complication On: :52 Request LIPID PANEL ([id number])Indication: Controlled diabetes mellitus type II without complication On: :52 Request CBC W/AUTO DIFF WBC ([id number])Indication: Controlled diabetes mellitus type II without complication On: 22-Ggn-532730:52 Request URINE FAVIAN CULTURE-IDENTIFICATN ([id number])Indication: Abnormal urine On: 3-Oaa-404399:17 Request FECAL OCCULT- Tubes sent home (63681)Indication: Encounter for screening for malignant neoplasm of colon (Renamed from Special screening for malignant neoplasms, colon) On: 33-Skg-544539:39 Request Alkaline Phosphatase (35846)Indication: Antiphospholipid syndrome On: :15 Request THROAT CULTURE (05036)Indication: Sore throat On: :32 Request Metabolic Panel, Basic (19912)Indication: Hypertension with renal disease On: :56 Request Comments: do in one month BASIC METABOLIC w/Ionized Ca++ (85841)Indication: Hypertension with renal disease On: :23 Request Urine Protein Electrophoresis (UPEP) (98118)Indication: Elevated serum globulin level On: :17 Request Serum Protein Electrophoresis (SPEP) (30099)Indication: Elevated serum globulin level On: :17 Request URINALYSIS, W/ MICRO (95952)Indication: Controlled diabetes mellitus type II without complication On: :52 Request TSH ([id number])Indication: Controlled diabetes mellitus type II without complication On: :52 Request CBC W/AUTO DIFF WBC (05696)Indication: Controlled diabetes mellitus type II without complication On: :52 Request MICROALBUMIN: CREATININE RATIO (53914) AND (78021)Indication: Controlled diabetes mellitus type II without complication On: :52 Request METABOLIC PANEL, COMPREHENSIVE (41854)Indication: Hypercholesterolemia On: :52 Request LIPID PANEL (78035)Indication: Hypercholesterolemia On: :52 Request HGB A1C (05484)Indication: Controlled diabetes mellitus type II without complication On: :52 Request HgA1C , Office ([id number])Indication: Type 2 diabetes mellitus, controlled, with renal complications On: 01-Feb-20139:05 Request Blood Glucose , Office (03225)Indication: Type 2 diabetes mellitus, controlled, with renal complications On: 01-Feb-20139:05 Request URINE FAVIAN CULTURE-IDENTIFICATN (59306)Indication: Dysuria On: :52 Request LIPID PANEL (07929)Indication: Hyperlipidemia On: 70-Bli-449781:17 Request CALCIFIDIOL (84401) VIT D 25Indication: Vitamin D deficiency, unspecified On: 59-Czj-673954:16 Request Vitamin D Hydroxy (14828)Indication: Osteopenia On: 17-Pzd-321837:56 Request TSH ([id number])Indication: Uncontrolled type II diabetes mellitus On: 13-Sgr-633463:56 Request URINALYSIS, W/ MICRO ([id number])Indication: Uncontrolled type II diabetes mellitus On: 67-Dic-004675:56 Request MICROALBUMIN: CREATININE RATIO (09353) AND ([id number])Indication: Uncontrolled type II diabetes mellitus On: 51-Drs-742429:56 Request METABOLIC PANEL, COMPREHENSIVE (52845)Indication: Uncontrolled type II diabetes mellitus On: 61-Caq-221440:56 Request LIPID PANEL (50757)Indication: Uncontrolled type II diabetes mellitus On: 10-Too-550254:56 Request CBC WITH MANUAL DIFF ([id number])Indication: Uncontrolled type II diabetes mellitus On: 29-Sep-2011 Request Urine Protein Electrophoresis (UPEP) (57523)Indication: Other specified abnormal findings of blood chemistry On: 82-Mtz-951302:18 Request Serum Protein Electrophoresis (SPEP) (47736)Indication: Other specified abnormal findings of blood chemistry On: 74-Oxe-480363:18 Request PARATHORMONE (45493)Indication: Vitamin D deficiency, unspecified On: 44-Epf-228128:16 Request CALCIFEDIOL (38433)Indication: Other specified abnormal findings of blood chemistry On: 70-Lky-63427:43 Request GONADOTROPIN-LH (57528)Indication: DISORDER, PITUITARY NEC On: 9-Skc-899341:04 Request GONADOTROPIN-FSH (90839)Indication: DISORDER, PITUITARY NEC On: 0-Fou-408991:04 Request SOMATOMEDIN (30791)Indication: DISORDER, PITUITARY NEC On: 4-Uua-825239:04 Request PROLACTIN ([id number])Indication: DISORDER, PITUITARY NEC On: 1-Zgr-882232:04 Request TSH (THYROID STIMULATING HORMONE) (79730)Indication: DISORDER, PITUITARY NEC On: 7-Xet-038949:04 Request ACTH ([id number])Indication: DISORDER, PITUITARY NEC On: 5-Pze-083318:04 Request LIPID PANEL (37285)Indication: Hypercholesterolemia On: 06-Sep-20109:15 Request PT (Prothrobim Time) (14652)Indication: USP current use of anticoagulant On: 6-Hmk-697587:18 Request Comments: Standing order Metabolic Panel, Basic ([id number])Indication: Uncontrolled type II diabetes mellitus On: 27-Hfu-84512:00 Request TSH (78195)Indication: Controlled diabetes mellitus type II without complication On: 35-Qxo-031275:41 Request URINALYSIS, W/ MICRO (39140)Indication: Controlled diabetes mellitus type II without complication On: 78-Qgl-689564:41 Request MICROALBUMIN: CREATININE RATIO (12405) AND (02917)Indication: Controlled diabetes mellitus type II without complication On: 99-Wwp-958495:41 Request METABOLIC PANEL, COMPREHENSIVE (22309)Indication: Controlled diabetes mellitus type II without complication On: 78-Bwi-731370:41 Request LIPOPROTEIN, BLD, BY NMR ([id number])Indication: Controlled diabetes mellitus type II without complication On: 46-Feg-842836:41 Request LIPID PANEL (14638)Indication: Controlled diabetes mellitus type II without complication On: 37-Ikv-642638:41 Request CBC WITH MANUAL DIFF ([id number])Indication: Controlled diabetes mellitus type II without complication On: 28-Ezo-040278:41 Request Comments: DO PRIOR TO NEXT VISIT PT (Prothrobim Time) ([id number]) On: 86-Aev-324202:39 Request Comments: inr Vitamin D Hydroxy (74396)Indication: Osteopenia On: 73-Qum-355160:37 Request HEPATIC FUNCTION PANEL (03681)Indication: Hypercholesterolemia On: 44-Nuc-806124:36 Request LIPOPROTEIN, BLD, BY NMR ([id number])Indication: Hypercholesterolemia On: 96-Prk-297574:36 Request LIPID PANEL (96019)Indication: Hypercholesterolemia On: 01-Cno-161394:35 Request Comments: do in 3 mionths PT/INR, Office ([id number])Indication: Transient ischemic attack On: 46-His-41266:17 Request CALCIFIDIOL (08179) VIT D 25Indication: Vitamin D deficiency, unspecified On: 28-Dnp-993632:34 Request PT/INR, Office (12559) On: 01-Nqn-929781:22 Request PT/INR, Office ([id number])Indication: Transient ischemic attack On: 5-Bzi-461475:44 Request PT (Prothrobim Time) (55501)Indication: USP current use of anticoagulant On: 6-Rai-084768:05 Request Comments: Standing order x 1 year PT/INR, Office ([id number]) On: 94-Whq-16555:57 Request SED RATE ERYTHROCYTE ([id number])Indication: Polymyalgia rheumatica On: 81-Nch-190057:59 Request Comments: DO IN 2 WEEKS LIPID PANEL ([id number])Indication: Hypercholesterolemia On: 01-Zim-914055:02 Request Comments: do in 6 months PT/INR, Office ([id number]) On: 11-Til-979361:25 Request Comments: done kmsee flow sheet PT/INR, Office (55321)Indication: Transient ischemic attack On: 76-Biu-120099:04 Request Comments: done PT (Prothrobim Time) ([id number])Indication: USP current use of anticoagulant On: 31-Ssa-011218:10 Request Comments: AND INR PT/INR, Office ([id number]) On: 47-Crx-465027:06 Request CBC WITH MANUAL DIFF (87743)Indication: Leukopenia On: 43-Tpn-236113:49 Request Planned Procedures INFUSION, NORMAL SALINE SOLUTION On: 30-Sep-2017 Intent , 1000 CC (Special Coverage Comments: IV Therapy [id number], 1 inchSite: L acTolerated: wellno redness or swelling, no s/s infiltrationML,SLUNK SKINNER Instructions Apply. See [facility]: 2048) ([id number])By: Hannah Leos DO, DO, Kathleen INFUSION, NORMAL SALINE SOLUTION On: 20-Sep-2017 Intent , 1000 CC (Special Coverage Comments: IV Therapy [id number], 1 inchSite: L ac - first attempt and Saline Lock flushed easily Tolerated: wellno redness or swelling, no s/s infiltration MLONG Instructions Apply. See [facility]: 2048) ([id number])By: Hannah Leos DO, DO, Kathleen ELECTROCARDIOGRAM, COMPLETE On: 28-Jun-2017 Intent (ECG) ([id number])By: Mino SMITH, Yadira PNEUM VAC ADLT/IMUMNOSPR, On: 16-Jun-2017 Intent SBC/INTRM ([id number])By: Visit, Comments: Lot #[id number]-L arm, dltd, IMDose- prefilled syringegiven by:WALDO McfarlandVIS signed Nurse ELECTROCARDIOGRAM, COMPLETE On: 14-Jun-2017 Intent (ECG) (50412)By: Dafne WELSH, Comments: sinus poor R progression , nonaspecific st flattening and t wave inversion in lateral leads-- new chgn - Hannah Castro DO SCREENING DIGITAL TOMOSYNTHESIS On: 24-May-2017 Intent OF BREAST ([id number])By: Hannah Leos DO, DO, Kathleen Flu Vaccine (Quadrivalent) On: 07-May-2017 Intent [id number]: Hannah Leos DO Comments: Lot:[id number]:02/14/18Amt:0.5mlRoute:IMSite: L DltdGiven By: GUSTAVO Chaves signed Hannah Leos DO CT - Brain/Head (Without On: 05-Apr-2017 Intent Contrast)By: Hannah Leos DO Comments: following cerebral hemorrhage Hannah Leos DO Solu -Medrol Injection, 125 mg On: 08-Mar-2017 Intent ([id number])By: Daniela Herzog CNP Comments: Lot:[id number]:07/18Dose:125mgRoute:imSite:r hip Given By:MO signed Radiology - Elbow - RightBy: On: 08-Mar-2017 Intent Daniela Herzog CNP Flu Vaccine (Quadrivalent) On: 04-Jun-2016 Intent [id number]: Hannah Leos DO Comments: Lot:[id number]:02/26/17Dose:0.5mLRoute:IMSite:L DltdGiven By:MO signed Hannah Leos DO DEXA SCAN AXIAL SKELETON On: 17-Oct-2015 Intent ([id number])By: Hannah Leos DO, DO, Kathleen MAMMOGRAM, SCREENING, BOTH On: 17-Oct-2015 Intent BREAST ([id number])By: Hannah Leos DO, DO, Kathleen IMMUNIZ ADMNIN, 1 VAC, On: 04-Jun-2014 Intent SNGL/COMBO ([id number])By: Cathy Kim FLU VAC, SPLIT, >3 YEARS, On: 04-Jun-2014 Intent INTRAMUSC ([id number])By: Julio, Comments: Lot:[id number]:Dose:0.5mLRoute:IMSite:L DltdGiven By:MO signed Cathy EKG ([id number])By: Dafne WELSH, On: 08-Nov-2013 Intent Hannah Castro DO Comments: sinus alethea - nonspeciific st flattening Eprescribed prescriptions On: 08-Nov-2013 Intent ([id number])By: Hannah Leos DO, DO, Kathleen Eprescribed prescriptions On: 01-Feb-2013 Intent ([id number])By: Shea May LPN Eprescribed prescriptions On: 09-Nov-2012 Intent ([id number])By: Shea May LPN EKG ([id number])By: Dafne WELSH, On: 29-Jul-2012 Intent Hannah Castro DO Comments: nsr no acute chg MAMMOGRAM, SCREENING, BOTH On: 29-Jul-2012 Intent BREASTS ([id number])By: Hannah Leos DO, DO, Kathleen Eprescribed prescriptions On: 29-Jul-2012 Intent (G8553)By: Jessica Shields LPN Eprescribed prescriptions On: 11-Jan-2012 Intent (G8553)By: Jessica Shields LPN EKG ([id number])By: Dafne WELSH, On: 16-Jul-2011 Intent Hannah Castro DO Comments: nsr no acute chg -first degree block not differnt IMMUNIZ ADMNIN, 1 VAC, On: 16-Jul-2011 Intent SNGL/COMBO ([id number])By: Dafne WELSH, Comments: Lot #[id number]/Site-left deltoidgiven by: WALDO Stewart DO, Kathleen PNEUM VAC ADLT/IMUMNOSPR, On: 16-Jul-2011 Intent SBC/INTRM ([id number])By: Hannah Leos DO, DO, Kathleen DXA, BONE DENSITY, AXIAL On: 15-Oct-2010 Intent SKELETON ([id number])By: Jessica Shields LPN MAMMOGRAM, SCREENING, BOTH On: 15-Oct-2010 Intent BREASTS ([id number])By: Jessica Shields LPN Clinical Breast Examination On: 15-Oct-2010 Intent (G0101)By: Jessica Shields LPN TDAP VACCINE >7 IM ([id number])By: On: 08-Sep-2010 Intent Hannah Leos DO, DO, Comments: Lot #[id number]-L armDose prefilled syringegiven by:DEEDEE Young MRA - Upper Extremity OtherBy: On: 15-Jul-2010 Intent Hannah Leos DO, DO, Kathleen MRI - BrainBy: Dafne WELSH, On: 06-Jun-2010 Intent Hannah Castro DO EKG ([id number])By: Dafne WELSH, On: 06-Jun-2010 Intent Hannah Castro DO Nuclear Stress Test/Stress On: 12-Aug-2009 Intent SPECT/AdenosineBy: Hannah Leos DO, DO, Kathleen Echo CompleteBy: Dafne WELSH, On: 15-Jul-2009 Intent Hannah Castro DO EKG ([id number])By: Dafne WELSH, On: 15-Jul-2009 Intent Hannah Castro DO Comments: nonspecific flattening no acute changes Solu -Medrol Injection, 125 mg On: 23-May-2009 Intent ([id number])By: Yuko Gonzalez LPN Comments: Lot #[id number]-Left [id number] mggiven by:[facility] Spirometry ([id number])By: Aron On: 23-May-2009 Intent Francisca Comments: normal CT - ChestBy: Francisca Sharp On: 23-May-2009 Intent Comments: PE protocol Pulse Oximetry ([id number])By: On: 23-May-2009 Intent Francisca Sharp Comments: 97% EKG ([id number])By: Dafne WELSH, On: 11-Nov-2007 Intent Hannah Castro DO Comments: SINUS ALETHEA NONSPECIFIC BASELINE DXA, BONE DENSITY, AXIAL On: 28-Oct-2007 Intent SKELETON ([id number])By: Hannah Leos DO, DO, Hannah MAMMOGRAM, SCREENING, BOTH On: 28-Oct-2007 Intent BREASTS ([id number])By: Hannah Leos DO, DO, Kathleen Radiology - Chest- PA and LatBy: On: 12-Nov-2006 Intent Hannah Leos DO, DO, Hannah Aerosol Treatment ([id number])By: On: 12-Nov-2006 Intent Hannah Leos DO, DO, Comments: MORE AIR EXCHANGE NO WHEEZE AND RUB SOFTER-- PT FEELS CLINICALLY BETTER Hannah Pulse Oximetry ([id number])By: Dafne On: 12-Nov-2006 Intent Hannah WELSH DO, Kathleen Comments: 98% Solu- Medrol Injection, 125mg On: 12-Nov-2006 Intent ([id number])By: Hannah Leos DO Comments: Lot #:[id number] date:06/07Amount given:125mgRoute: imSite given:l gmGiven by: Hannah Quevedo lpn, DO Planned Medications INFUSION, NORMAL SALINE SOLUTION , 1000 CC Ordered: 20-Sep-2017 Pending Hannah Leos DO, DO, Kathleen INFUSION, NORMAL SALINE SOLUTION , 1000 CC Ordered: 30-Sep-2017 Pending Hannah Leos DO, DO, Kathleen INJECTION, METHYLPREDNISOLONE SODIUM SUCCINATE, UP TO 125 MG Ordered: 08-Mar-2017 Pending Daniela Herzog CNP Instructions Name Dates Details BMI 31.0-31.9,adult : How to access health information online Indication: BMI 31.0-31.9,adult BMI 31.0-31.9,adult : How to access health information online - Detail Indication: BMI 31.0-31.9,adult Confusion : Patient Instructions Indication: Confusion Nonsmoker : How to access health information online Indication: Nonsmoker Nonsmoker : How to access health information online - Detail Indication: Nonsmoker Nonsmoker : Patient Instructions Indication: Nonsmoker Uncontrolled type II diabetes mellitus : How to access health information online Indication: Uncontrolled type II diabetes mellitus Uncontrolled type II diabetes mellitus : How to access health information online - Detail Indication: Uncontrolled type II diabetes mellitus Uncontrolled type II diabetes mellitus : Patient Instructions Indication: Uncontrolled type II diabetes mellitus Current non-smoker : How to access health information online Indication: Current non-smoker Current non-smoker : How to access health information online - Detail Indication: Current non-smoker Current non-smoker : Patient Instructions Indication: Current non-smoker Vomiting : How to access health information online Indication: Vomiting Vomiting : How to access health information online - Detail Indication: Vomiting Vomiting : Patient Instructions Indication: Vomiting BMI 30.0-30.9,adult : How to access health information online Indication: BMI 30.0-30.9,adult BMI 30.0-30.9,adult : How to access health information online - Detail Indication: BMI 30.0-30.9,adult BMI 30.0-30.9,adult : Patient Instructions Indication: BMI 30.0-30.9,adult Current non-smoker : How to access health information online Indication: Current non-smoker Current non-smoker : How to access health information online - Detail Indication: Current non-smoker Current non-smoker : Patient Instructions Indication: Current non-smoker Uncontrolled type II diabetes mellitus : How to access health information online Indication: Uncontrolled type II diabetes mellitus Uncontrolled type II diabetes mellitus : How to access health information online - Detail Indication: Uncontrolled type II diabetes mellitus Uncontrolled type II diabetes mellitus : Patient Instructions Indication: Uncontrolled type II diabetes mellitus Current non-smoker : How to access health information online Indication: Current non-smoker Current non-smoker : How to access health information online - Detail Indication: Current non-smoker Current non-smoker : Patient Instructions Indication: Current non-smoker Current non-smoker : How to access health information online Indication: Current non-smoker Current non-smoker : How to access health information online - Detail Indication: Current non-smoker Current non-smoker : Patient Instructions Indication: Current non-smoker Controlled diabetes mellitus type II without complication : Patient Instructions Indication: Controlled diabetes mellitus type II without complication Annual Medicare Phyiscal WITHOUT abnormal findings (Renamed from Encounter for general adult medical examination without abnormal findings) : Patient Instructions Indication: Annual Medicare Phyiscal WITHOUT abnormal findings (Renamed from Encounter for general adult medical examination without abnormal findings) Current non-smoker : How to access health information online Indication: Current non-smoker Current non-smoker : How to access health information online - Detail Indication: Current non-smoker Current non-smoker : Patient Instructions Indication: Current non-smoker BMI 30.0-30.9,adult : How to access health information online Indication: BMI 30.0-30.9,adult BMI 30.0-30.9,adult : How to access health information online - Detail Indication: BMI 30.0-30.9,adult BMI 30.0-30.9,adult : Patient Instructions Indication: BMI 30.0-30.9,adult Cerebral hemorrhage : How to access health information online Indication: Cerebral hemorrhage Cerebral hemorrhage : How to access health information online - Detail Indication: Cerebral hemorrhage Cerebral hemorrhage : Patient Instructions Indication: Cerebral hemorrhage Undefined pain syndrome : Patient Instructions Indication: Undefined pain syndrome Right hip pain : How to access health information online Indication: Right hip pain Right hip pain : How to access health information online - Detail Indication: Right hip pain Right hip pain : Patient Instructions Indication: Right hip pain Current non-smoker : How to access health information online Indication: Current non-smoker Current non-smoker : How to access health information online - Detail Indication: Current non-smoker Current non-smoker : Patient Instructions Indication: Current non-smoker Controlled diabetes mellitus type II without complication : How to access health information online Indication: Controlled diabetes mellitus type II without complication Controlled diabetes mellitus type II without complication : How to access health information online - Detail Indication: Controlled diabetes mellitus type II without complication Controlled diabetes mellitus type II without complication : Patient Instructions Indication: Controlled diabetes mellitus type II without complication Hypertension with renal disease : Patient Instructions Indication: Hypertension with renal disease Hypertension with renal disease : Patient Instructions Indication: Hypertension with renal disease Hypercholesterolemia : Patient Instructions Indication: Hypercholesterolemia Type 2 diabetes mellitus, controlled, with renal complications : How to access health information online Indication: Type 2 diabetes mellitus, controlled, with renal complications Type 2 diabetes mellitus, controlled, with renal complications : How to access health information online - Detail Indication: Type 2 diabetes mellitus, controlled, with renal complications Type 2 diabetes mellitus, controlled, with renal complications : Patient Instructions Indication: Type 2 diabetes mellitus, controlled, with renal complications Type 2 diabetes mellitus, controlled, with renal complications : Patient Instructions Indication: Type 2 diabetes mellitus, controlled, with renal complications Type 2 diabetes mellitus, controlled, with renal complications : Patient Instructions Indication: Type 2 diabetes mellitus, controlled, with renal complications Type 2 diabetes mellitus, controlled, with renal complications : Patient Instructions Indication: Type 2 diabetes mellitus, controlled, with renal complications Type 2 diabetes mellitus, controlled, with renal complications : Patient Instructions Indication: Type 2 diabetes mellitus, controlled, with renal complications Encounters Phone Encounter On: 18-May-2018 13:42 Encounter Diagnosis: Hyperkalemia End: 18-May-2018 15:58 [facility] Visit On: 16-May-2018 11:00 Encounter Reason: Dizziness - Note for Dizziness: Symptoms started about 1 week ago with fatigue, not feeling good, disoriented at times, slight dizziness with leaning over. No nasal drainage, ear pain, SOB, CP. No uri End: 16-May-2018 14:22 nary frequency, urgency, dysuria, back pain. Had seizure that last about 30 secs now that she is medicated but had multiple ones yesterday. Sees Neuro of this week. History of sepsis with UTI.Encounter Diagnosis: Nonsmoker, BMI 31.0-31.9,adult, Dysuria, Dizzy, Confusion [facility] Phone Encounter On: 08-Apr-2018 16:02 Encounter Diagnosis: Recurrent sepsis due to urinary tract infection End: 08-Apr-2018 16:09 [facility] Visit On: 31-Mar-2018 10:14 Encounter Reason: Transition into care - The patient is transitioning into care from a hospital ([facility] for 1 week and a half for sepsis) and a summary of care was reviewed.Encounter Diagnosis: BMI 31.0-31.9,adult, Nonsmoker, Sepsis with hypotension, End: 31-Mar-2018 11:31 Pyelonephritis, unspecified (590.80), Altered mental status, unspecified altered mental status type, Ileus [facility] Phone Encounter On: 24-Mar-2018 14:47 Encounter Diagnosis: Urine leukocytes End: 24-Mar-2018 14:49 [facility] Phone Encounter On: 23-Mar-2018 17:36 Encounter Diagnosis: Hyperlipidemia End: 23-Mar-2018 17:40 [facility] Office Visit On: 21-Mar-2018 10:56 Encounter Reason: Follow up for chronic medical issues - The patient does not feel well (panic attacks), has decreased energy level and is sleeping poorly. Patient has been compliant with instructions. Current medication End: 21-Mar-2018 11:43 use: no side effects and compliant with dosing regimen. Nutrition: poor nutrition and supplemental vitamins. The medical issues the patient is following up for include All identified problems below, bl ood sugar issues, high blood pressure and high cholesterol. blood pressure range : and fasting blood sugars :.Encounter Diagnosis: Uncontrolled type II diabetes mellitus, Nonsmoker, BMI 31.0-31.9,adult, Atrial fibrillation, unspecified type, Antiphospholipid syndrome, Cerebral hemorrhage, Hypertension with renal disease, Seizure, Hyperlipidemia, Pacemaker, GERD (gastroesophageal reflux disease) [facility] Visit On: 20-Dec-2017 11:09 Encounter Reason: Follow up for chronic medical issues - The patient does not feel well (panic attacks), has decreased energy level and is sleeping poorly. Patient has been compliant with instructions. Current medication End: 20-Dec-2017 12:00 use: no side effects and compliant with dosing regimen. Nutrition: poor nutrition and supplemental vitamins. The medical issues the patient is following up for include All identified problems below, bl ood sugar issues, high blood pressure and high cholesterol. blood pressure range : and fasting blood sugars :.Encounter Diagnosis: BMI 30.0-30.9,adult, Current non-smoker, Pacemaker, Vitamin D deficiency, unspecified, Hyperlipidemia, Uncontrolled type II diabetes mellitus, Atrial fibrillation, unspecified type, Hypertension with renal disease, Seizure, Cerebral hemorrhage, Chronic anticoagulation, Antiphospholipid syndrome [facility] Visit On: 25-Oct-2017 12:02 Encounter Reason: Nurse procedure visit - Reason for visit: other (u/a).Encounter Diagnosis: UTI (urinary tract infection) End: 25-Oct-2017 17:40 [facility] Visit On: 13-Oct-2017 11:22 Encounter Reason: Vomiting - Symptoms include nausea and vomiting. The symptoms occur occasionally. Associated symptoms include chills. Presenting symptoms included nausea, vomiting and chills., End: 13-Oct-2017 12:35 [ADDITIONAL REASON] Dizziness - The symptoms occur intermittently. Associated symptoms include nausea and vomiting. Encounter Diagnosis: BMI 30.0-30.9,adult, Vomiting, Lightheaded, Atrial fibrillation, unspecified type, Dehydration, UTI (urinary tract infection), bacterial, Chills, Orthostasis [facility] Annotation/Addendum On: 12-Oct-2017 11:07 Encounter Diagnosis: UTI (urinary tract infection) End: 12-Oct-2017 11:11 [facility] Phone Encounter On: 07-Oct-2017 14:10 Encounter Diagnosis: Controlled diabetes mellitus type II without complication End: 07-Oct-2017 14:16 [facility] Visit On: 06-Oct-2017 10:38 Encounter Reason: Vaginal Discharge - No changes in management were made at the last visit. Symptoms include vaginal discharge. The patient describes the vaginal discharge as bloody. Onset was sudden hour(s) ago.Encounter Diagnosis: End: 06-Oct-2017 13:49 BMI 30.0-30.9,adult, Vaginal bleeding, Hematuria, gross, Cerebral hemorrhage, Uncontrolled type II diabetes mellitus, Glucosuria, Chronic anticoagulation, Atrial fibrillation, unspecified type, Antiphospholipid syndrome [facility] Visit On: 30-Sep-2017 11:59 Encounter Diagnosis: BMI 30.0-30.9,adult, Current non-smoker, Conversion disorder, Dehydration, Cerebral hemorrhage, Chills (without fever) End: 30-Sep-2017 15:49 [facility] Visit On: 20-Sep-2017 9:49 Encounter Reason: Follow up tests - Date: (09/16/17)., [ADDITIONAL REASON] Follow up for chronic medical issues - The patient does not feel well (she has n End: 20-Sep-2017 17:34 ot been well for few days had a couple of sexiures in first part of month), has decreased energy level and is sleeping poorly. Patient has been compliant with instructions. Current medication use: compl iant with dosing regimen. Patient sleeps 7 hours per night. Nutrition: inadequate caloric intake and supplemental vitamins. The medical issues the patient is following up for include All identified prob lems below, blood sugar issues, high blood pressure and other. 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 at last appt).Encounter Diagnosis: BMI 30.0-30.9,adult, Current non-smoker, Hypertension with renal disease, Atrial fibrillation, unspecified type End: 08-Jul-2017 12:53 [facility] Phone Encounter On: 05-Jul-2017 15:14 Encounter Diagnosis: Abnormal cardiac function test End: 05-Jul-2017 15:25 [facility] Annotation/Addendum On: 29-Jun-2017 13:26 Encounter Diagnosis: Protein in urine, Hypertension with renal disease End: 29-Jun-2017 13:43 [facility] Visit On: 28-Jun-2017 9:56 Encounter Reason: Elevated blood pressure - elevated bp, [ADDITIONAL REASON] Seizures - Note for Seizures: Seizure history occured starting in February with se End: 28-Jun-2017 13:10 izures after hitting head on cruise. Additioanl conversion disorder with concussion. has apt in [facility] Encounter Diagnosis: BMI 30.0-30.9,adult, Current non- smoker, Elevated blood pressure reading, Protein in urine, Seizure syndrome [facility] Visit On: 23-Jun-2017 9:42 Encounter Reason: Follow up hospital - Reason for ER visit: note: (on sun she had a different seziure and she got in and she had afib so tghey kept her and added some meds. She got out tues). The patient does not feel we End: 23-Jun-2017 11:07 ll, has decreased energy level and is sleeping well. Patient has been compliant with instructions. Nutrition: balanced diet.Encounter Diagnosis: BMI 30.0- 30.9,adult, Current non-smoker, Atrial fibrillation, unspecified type, Seizure, Chronic anticoagulation, Hypertension with renal disease [facility] Visit On: 16-Jun-2017 14:39 Encounter Reason: Injections - The medication the patient is here to receive is pneumovax IM.Encounter Diagnosis: Pneumococcal vaccination given End: 16-Jun-2017 15:37 [facility] Visit On: 14-Jun-2017 9:45 Encounter Reason: Follow up for chronic medical issues - The patient does not feel well, has decreased energy level and is sleeping well. Patient has been compliant with instructions. Current medication use: experiencing End: 14-Jun-2017 17:25 side effects and compliant with dosing regimen. Patient sleeps 6 hours per night. Nutrition: balanced diet and supplemental vitamins. The medical issues the patient is following up for include All iden tified problems below, blood sugar issues, high blood pressure and other.Encounter Diagnosis: Current non-smoker, Controlled diabetes mellitus type II without complication, Hypercholesterolemia, Antiphospholipid syndrome, USP current use of anticoagulant, Hypertension with renal disease, Seizure, Cerebral hemorrhage, Vitamin D deficiency, unspecified, Conversion disorder, Abnormal EKG [facility] Phone Encounter On: 03-Jun-2017 14:16 Encounter Diagnosis: Abnormal urine End: 03-Jun-2017 14:18 [facility] Visit On: 24-May-2017 9:39 Encounter Reason: Annual Medicare Exam - The patient had reviewed and updated the family history, medication/s, past medical history and social history. Yes the patient did have a mini mental status exam done today. The End: 24-May-2017 10:45 activities of daily living the patient needs help with are none. The patient has put handrails in bathroom, but the patient has not had fecal incontinence, had urinary incontinence, missed or ran out of medications to soon, driven in past 6 months, fallen in the past 6 months, gotten lost, has a medalert necklace or bracelet or put area rugs through house. The patient has completed the following preve ntative measures: mammography. The patient does have durable power of patent prosecution attorney and living will. The patient has noticed nothing from the geriatic depression scale. Other providers contributing to the patient's care are other:.Encounter Diagnosis: Current non-smoker, Body mass index 29.0-29.9, adult, Annual Medicare Phyiscal WITHOUT abnormal findings (Renamed from Encounter for general adult medical examination without abnormal findings), Postmenopausal (Renamed from Postmenopausal status), Encounter for screening for malignant neoplasm of colon (Renamed from Special screening for malignant neoplasms, colon), Encounter for screening mammogram for breast cancer (Renamed from Visit for screening mammogram) [facility] Visit On: 07-May-2017 10:14 Encounter Reason: UTI - The symptoms have been occurring for days and have been constant. The urine is described as clear.Encounter Diagnosis: BMI 30.0- 30.9,adult, Current non-smoker, Cerebral hemorrhage, Hypertension with renal disease, Dysuria, End: 07-May-2017 11:39 Seizure, Need for prophylactic vaccination and inoculation against influenza, Undefined pain syndrome [facility] Office Visit On: 14-Apr-2017 11:49 Encounter Reason: Follow up ER - Reason for hospitalization note: (she was really cold and disoriented and then she said take me to er they said no new brain bleed. They said it was a seizures and sent to [facility]. 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 The patient is right hand dominant. The injury involved the right elbow. This End: 08-Mar-2017 18:17 occurred 2 day(s) ago. Symptoms include decreased range of motion, swelling and elbow pain. Symptoms are located in the right elbow. The symptoms occur constantly. Note for Elbow problem: Rt elbow ladonna n, was cutting meat 2 weeks ago and aching. Woke up unable to move arm and with bumping elbow severe pain.Unable to dress self wtih pain, [ADDITIONAL REASON] Hip Problem - This condition occurred without any known injury. The injury invol alfred the left hip. This occurred 5 day(s) ago. Symptoms include pain in other joints (overall body aches). The patient describes the hip problem as hip pain. The symptoms occur constantly. Note for Hip problem: Hip pain x5 days and Elbow pain x 4 days Encounter Diagnosis: BMI 32.0- 32.9,adult, Current non-smoker, Right hip pain, Left elbow pain, Antiphospholipid syndrome, Undefined pain syndrome, Right leg swelling [facility] Office Visit On: 01-Feb-2017 8:16 Encounter Reason: Cough - Symptoms include cough, wheezing, fever, runny nose and stuffy nose. The cough is described as productive (yellow). Cough onset was 4 day(s) ago. Symptoms are described as unchanged. Associated End: 01-Feb-2017 9:54 symptoms include postnasal drainage, while associated symptoms do not include headache. Current treatment includes nonsteroidal anti-inflammatory drugs.Encounter Diagnosis: BMI 32.0-32.9,adult, Current non-smoker, Cough, Sore throat, Sinusitis, bacterial, Elevated blood pressure reading [facility] Office Visit On: 04-Jun-2016 10:57 Encounter Reason: Follow up tests - Date: (06/01/16 labs)., [ADDITIONAL REASON] Follow up for chronic medical issues - The patient feels well with minor complai End: 04-Jun-2016 14:36 nts, has decreased energy level and is sleeping poorly. Patient has been compliant with instructions. Current medication use: no side effects and compliant with dosing regimen. Patient sleeps 5 hours pe r night. Nutrition: balanced diet and supplemental vitamins. The medical issues the patient is following up for include All identified problems below, blood sugar issues, high blood pressure and high cholesterol. blood pressure range : and weight :. Encounter Diagnosis: Controlled diabetes mellitus type II without complication, Hypercholesterolemia, CHF (congestive heart failure), Hypertension with renal disease, USP current use of anticoagulant, GERD (gastroesophageal reflux disease), Vitamin D deficiency, unspecified, Antiphospholipid syndrome, History of anemia, Need for prophylactic vaccination and inoculation against influenza [facility] Office Visit On: 14-Nov-2015 6:53 Encounter Reason: Follow up Hypertension - blood pressure range : (no)., [ADDITIONAL REASON] Follow up tests - Date: (11/13/15 labs). , [ADDITIONAL REASON] Follow up Meds - The patient feels well with minor complaints, has good energy l End: 14-Nov-2015 8:59 evel and is sleeping well. Patient has been compliant with instructions. Current medication use: no side effects and compliant with dosing regimen. Patient sleeps 7 hours per night. Nutrition: balanced diet. Encounter Diagnosis: Hypertension with renal disease, CHF (congestive heart failure), Controlled diabetes mellitus type II without complication [facility] Office Visit On: 24-Oct-2015 7:39 Encounter Reason: Follow up tests - Date: (10/22/15 mamm and dexa and 10/17 labs).Encounter Diagnosis: Osteopenia (733.90), Hypercholesterolemia, Leukopenia, Elevated serum globulin level, Hypertension with renal disease End: 24-Oct-2015 8:25 [facility] Office Visit On: 17-Oct-2015 7:22 Encounter Reason: Follow up for chronic medical issues - The patient feels well with minor complaints, has good energy level and is sleeping well. Patient has been compliant with instructions. Current medication use: no End: 17-Oct-2015 12:42 side effects and compliant with dosing regimen. Patient sleeps 6 hours per night. Nutrition: balanced diet and supplemental vitamins. 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), Osteopenia (733.90), Encounter for screening mammogram for breast cancer (Renamed from Visit for screening mammogram), Stress incontinence, female [facility] Office Visit On: 04-Jun-2014 17:17 Encounter Reason: Injections - The medication the patient is here to receive is other (flu).Encounter Diagnosis: NEED FOR PROPHYLACTIC VACCINATION AND INOCULATION AGAINST INFLUENZA (V04.81) End: 07-Jun-2014 6:20 [facility] Phone Encounter On: 30-May-2014 16:05 [facility] End: 30-May-2014 16:06 Office Visit On: 29-May-2014 8:52 Encounter Reason: Follow up for chronic medical issues - The patient feels well with minor complaints, has good energy level and is sleeping well. Patient has been compliant with instructions. Current medication use: no End: 29-May-2014 9:52 side effects and compliant with dosing regimen. Patient sleeps 9 hours per night. Nutrition: balanced diet and supplemental vitamins. The medical issues the patient is following up for include All ident ified problems below, blood sugar issues, high blood pressure and high cholesterol., [ADDITIONAL REASON] Follow up tests - Date: (05/21/14 labs). Encounter Diagnosis: Diabetes typeII,controlled, renal comp (250.40), Hyperlipidemia (272.4), GERD (530.81), Osteopenia (733.90), Anticoagulant, Current, Long-Term Use (V58.61), Vitamin D deficiency, unspecified (268.9), Urinary incontinence (788.30), Allergic Rhinitis(477.9) [facility] Phone Encounter On: 22-May-2014 12:42 [facility] End: 22-May-2014 12:44 Phone Encounter On: 21-May-2014 10:35 Encounter Diagnosis: Diabetes typeII,controlled, renal comp (250.40), Hyperlipidemia (272.4), Vitamin D deficiency, unspecified (268.9) End: 21-May-2014 10:38 [facility] Phone Encounter On: 08-Nov-2013 10:48 Encounter Diagnosis: Anticoagulant, Current, Long-Term Use (V58.61) End: 08-Nov-2013 10:49 [facility] Office Visit On: 08-Nov-2013 9:00 Encounter Reason: Follow up for chronic medical issues - The patient feels well with minor complaints, has good energy level and is sleeping well. Patient has been compliant with instructions. Current medication use: no End: 08-Nov-2013 10:29 side effects and compliant with dosing regimen. Patient sleeps 8 hours per night. Nutrition: balanced diet and supplemental vitamins. The medical issues the patient is following up for include All ident ified problems below, blood sugar issues, high blood pressure and high cholesterol.Encounter Diagnosis: Diabetes typeII,controlled, renal comp (250.40), Hypercholesterolemia (272.0), Hyperlipidemia (272.4), Osteopenia (733.90), Transient Ischemic Attack (388.02), Osteoarthritis (715.90), Allergic Rhinitis(477.9), Vitamin D deficiency, unspecified (268.9) [facility] Erroneous Entry On: 01-Feb-2013 9:01 Encounter Reason: Follow up for chronic medical issues - The patient feels well with minor complaints, has good energy level and is sleeping well. Patient has been compliant with instructions. Current medication use: exp End: 01-Feb-2013 9:20 eriencing side effects and compliant with dosing regimen. Patient sleeps 7 hours per night. Nutrition: balanced diet and supplemental vitamins. The medical issues the patient is following up for include All identified problems below, blood sugar issues, high blood pressure, high cholesterol and osteoporosis/osteopenia. blood pressure range :.Encounter Diagnosis: CHF (428.0), GERD (530.81), Hypercholesterolemia (272.0), Diabetes typeII,controlled, renal comp (250.40) [facility] Office Visit On: 09-Nov-2012 11:06 Encounter Reason: Follow up for chronic medical issues - The patient feels well with minor complaints, has good energy level and is sleeping well. Patient has been compliant with instructions. Current medication use: exp End: 09-Nov-2012 11:40 eriencing side effects and compliant with dosing regimen. Patient sleeps 7 hours per night. Nutrition: balanced diet and supplemental vitamins. The medical issues the patient is following up for include All identified problems below, blood sugar issues, high blood pressure, high cholesterol and osteoporosis/osteopenia. blood pressure range :., [ADDITIONAL REASON] Follow up tests - Date: (10.31.12). Encounter Diagnosis: Diabetes typeII,controlled, renal comp (250.40), Hypercholesterolemia (272.0), CHF (428.0), GERD (530.81), Vitamin D deficiency, unspecified (268.9) [facility] Office Visit On: 29-Jul-2012 10:36 Encounter Reason: Follow up for chronic medical issues - The patient feels well with minor complaints, has good energy level and is sleeping well. Patient has been compliant with instructions. Current medication use: exp End: 29-Jul-2012 12:22 eriencing side effects and compliant with dosing regimen. Patient sleeps 7 hours per night. Nutrition: balanced diet and supplemental vitamins. The medical issues the patient is following up for include All identified problems below, blood sugar issues, high blood pressure, high cholesterol and osteoporosis/osteopenia. blood pressure range :.Encounter Diagnosis: Diabetes typeII,controlled, renal comp (250.40), GERD (530.81), Hypercholesterolemia (272.0), Osteopenia (733.90), Vitamin D deficiency, unspecified (268.9), CHF (428.0), Anticoagulant, Current, Long-Term Use (V58.61), Breast screening (V76.10) [facility] Office Visit On: 18-Feb-2012 7:51 Encounter Reason: UTI - The urinary symptoms are described as painful urination, frequency, urgency and flank pain. The symptoms have been occurring for 1 day and have been constant. The urine is described as bloody. Th End: 18-Feb-2012 8:11 e symptoms have been associated with low back pain, while the symptoms have not been associated with fever, perineal pain or abdominal pain. There is a medical history of diabetes and kidney stones, whi le there is no history of current . 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 Patient has been compliant with instructions. Current medication use: no End: 11-Jan-2012 9:51 side effects and compliant with dosing regimen. Patient sleeps 7 hours per night. Nutrition: balanced diet and supplemental vitamins. The medical issues the patient is following up for include All ident ified problems below, blood sugar issues, high blood pressure and high cholesterol. blood pressure range : and weight :., [ADDITIONAL REASON] Follow up tests - Date: (01/05/12 labs). 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.), GERD (530.81), Vitamin D deficiency, unspecified (268.9) [facility] Office Visit On: 16-Sep-2011 9:24 Encounter Reason: Follow up tests - Date: (09-07-11 and 09-10-11 labs).Encounter Diagnosis: Hyperlipidemia (272.4), Vitamin D deficiency, unspecified (268.9), Hyperglycemia (790.29), Diabetes typeII,controlled, renal comp (250.40) End: 16-Sep-2011 10:21 [facility] Phone Encounter On: 10-Sep-2011 7:42 Encounter Diagnosis: Hyperglycemia (790.29) End: 10-Sep-2011 7:43 [facility] Office Visit On: 16-Jul-2011 10:12 Encounter Reason: Follow up for chronic medical issues - The patient feels well with minor complaints, has decreased energy level and is sleeping poorly. Patient has been compliant with instructions. Current medication u End: 16-Jul-2011 13:17 se: no side effects and compliant with dosing regimen. Patient sleeps 6 hours per night. Nutrition: balanced diet and supplemental vitamins. The medical issues the patient is following up for include Al l identified problems below, blood sugar issues, gastric reflux, high blood pressure and high cholesterol. 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 The sinusitis/ has no relieving factors. Associated features include The symptoms have been associated with cough, nasa End: 20-Apr-2011 8:53 l discharge/stuffy nose and sinus pain. Note for Sinusitis/: green, today worse. laryngitisEncounter Diagnosis: ACUTE PHARYNGITIS (462.) [facility] Phone Encounter On: 25-Dec-2010 11:27 Encounter Diagnosis: Anticoagulant, Current, Long-Term Use (V58.61) End: 25-Dec-2010 11:28 [facility] Office Visit On: 25-Dec-2010 9:50 Encounter Reason: Follow up for chronic medical issues - The patient feels well with minor complaints, has good energy level and is sleeping well. Patient has been compliant with instructions. Current medication use: no End: 25-Dec-2010 10:54 side effects and compliant with dosing regimen. Patient sleeps 7 hours per night. Nutrition: balanced diet and supplemental vitamins. The medical issues the patient is following up for include All ident ified problems below, blood sugar issues, gastric reflux, high blood pressure and high cholesterol. 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 Pap smear: date of last pap: (few yrs). Contraceptive history: The patient is not using any me End: 15-Oct-2010 10:27 thod of contraception at this time. Patient does not exercise. The patient reports that she performs monthly self breast exam. Calcium intake includes 1200 mg daily supplment. The patient denies the use of oral contraceptives or hormone replacement therapy.Encounter Diagnosis: Well Women (TAHBSO) (V72.31) [facility] Annotation/Addendum On: 08-Sep-2010 11:09 [facility] End: 08-Sep-2010 11:09 Office Visit On: 08-Sep-2010 8:53 Encounter Reason: Follow up for chronic medical issues - The patient feels well with minor complaints, has decreased energy level and is sleeping well. Patient has been compliant with instructions. Current medication use End: 08-Sep-2010 10:55 : no side effects and compliant with dosing regimen. Patient sleeps 7 hours per night. Nutrition: balanced diet and supplemental vitamins. The medical issues the patient is following up for include All identified problems below, blood sugar issues, high blood pressure, high cholesterol and osteoarthritis. 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 The symptoms have been occurring for 6 days and have been decreasing (On Cipro for 3 days). End: 25-Aug-2010 9:08 Encounter Diagnosis: Cystitis,Acute (595.0) [facility] Annotation/Addendum On: 15-Jul-2010 10:52 Encounter Diagnosis: SYMPTOMS INVOLVING NERVOUS AND MUSCULOSKELETAL SYSTEMS, ABNORMALITY OF GAIT (781.2) End: 15-Jul-2010 10:59 [facility] Phone Encounter On: 14-Jul-2010 15:25 [facility] End: 14-Jul-2010 15:28 Phone Encounter On: 11-Jul-2010 8:58 Encounter Diagnosis: Type II Diabetes,uncontrolled (250.02) End: 11-Jul-2010 9:01 [facility] Phone Encounter On: 30-Jun-2010 13:12 [facility] End: 30-Jun-2010 13:14 Office Visit On: 06-Jun-2010 8:14 Encounter Reason: Follow up for chronic medical issues - The patient feels well with minor complaints, has good energy level and is sleeping well. Patient has been compliant with instructions. Current medication use: no End: 06-Jun-2010 11:35 side effects and compliant with dosing regimen. Patient sleeps 7 hours per night. Nutrition: balanced diet and supplemental vitamins. The medical issues the patient is following up for include All ident ified problems below, blood sugar issues, high blood pressure and high cholesterol. 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 Patient has been compliant with instructions. Current medication use: no si End: 18-Feb-2010 9:05 de effects. Patient sleeps 7 hours per night. Nutrition: balanced diet. , [ADDITIONAL REASON] Follow up, Laboratory Test Results - Date: (02/14). 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 Patient has been compliant with instructions. Current medication u End: 13-Nov-2009 10:46 se: no side effects and compliant with dosing regimen. Patient sleeps 6 hours per night. Nutrition: balanced diet and supplemental vitamins. The medical issues the patient is following up for include Al kina identified problems below ,blood sugar issues ,high blood pressure and high cholesterol. blood pressure range : and weight :. 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 Encounter Diagnosis: Abnormal Cardiac Test (794.30) End: 27-Sep-2009 12:30 [facility] Office Visit On: 21-Aug-2009 15:26 Encounter Diagnosis: Abnormal Cardiac Test (794.30) End: 21-Aug-2009 15:43 [facility] Office Visit On: 12-Aug-2009 11:03 Encounter Reason: Follow up, Diagnostic Procedure Results - Diagnostic tests include ECHO (07/31/09). , [ADDITIONAL REASON] Follow up, Laboratory Test Results - Date: (07/15/09). Encounter Diagnosis: Type II Diabetes,uncontrolled (250.02), End: 12-Aug-2009 11:36 SOB (786.05), CHF (428.0), Hypercholesterolemia (272.0), Transient Ischemic Attack (388.02), Vitamin D deficiency, unspecified (268.9) [facility] Office Visit On: 15-Jul-2009 10:04 Encounter Reason: Follow up for chronic medical issues - The patient feels well with minor complaints ,has good energy level and is sleeping well. Patient has been compliant with instructions. Current medication use: no End: 15-Jul-2009 12:28 side effects and compliant with dosing regimen. Patient sleeps 6 hours per night. Nutrition: inappropriate diet and supplemental vitamins. The medical issues the patient is following up for include All identified problems below ,depression ,high blood pressure ,high cholesterol and osteoarthritis. blood pressure range : and weight :. 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 The upper respiratory infection has no relieving factors. Associated features include nasal discharge End: 23-May-2009 16:37 /stuffy nose ,sore throat and swollen lymph glands. No previous evaluations were reported. Note for Upper respiratory infection: was seen 05/16/09 dx with sinusitis- still on Augmentin- report facial s welling has decreased. reports a tickle to back of throat, no cough, no nasal drainage. throat almanzar on exhalation. NOW C/O WHEEZING OFF AND ON X 4 DAYS. sometimes c/o SOB, like can't get a full breath of air Pt. states has allergies chronically all the time--does not think itchy eyes are worse. denies rash or fever. appetite if fair. 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 The course has been increasing. The pain is described as mild. Note for Facial Pain: pt End: 16-May-2009 12:07 notes the left side of her face just hurts and is swelling. Encounter Diagnosis: Acute sinusitis, unspecified (461.9), Transient Ischemic Attack (388.02) [facility] Historical Summary On: 18-Mar-2009 16:43 [facility] End: 18-Mar-2009 16:44 Historical Summary On: 13-Feb-2009 10:19 [facility] End: 13-Feb-2009 10:22 Phone Encounter On: 08-Feb-2009 11:32 Encounter Diagnosis: Vitamin D deficiency, unspecified (268.9) End: 08-Feb-2009 11:35 [facility] Phone Encounter On: 25-Jan-2009 15:01 [facility] End: 25-Jan-2009 15:03 Historical Summary On: 25-Jan-2009 14:59 [facility] End: 25-Jan-2009 15:00 Phone Encounter On: 03-Dec-2008 17:59 [facility] End: 03-Dec-2008 18:00 Office Visit On: 17-Oct-2008 11:32 Encounter Reason: Coumadin visit - Denies following symptoms: bruising or prolonged bleeding. Date: (10/08/08). Current medicaion use: compliant with dosing regimen. 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 Patient has been compliant with instructions. Current medication use: no End: 13-Apr-2008 12:19 side effects and compliant with dosing regimen. Patient sleeps 7 hours per night. Nutrition: balanced diet and supplemental vitamins. The medical issues the patient is following up for include All ident ified problems below ,gastric reflux ,high blood pressure ,high cholesterol ,osteoarthritis and osteoporosis/osteopenia. blood pressure range :. , [ADDITIONAL REASON] Follow up, Laboratory Test Results - Date: (10-19-07 on face sheet). 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 Date: (02/22/08). Current medicaion use: compliant with dosing regimen. 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 Date: (01/25/08). Current medicaion use: compliant with dosing regimen. 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 Current medicaion use: compliant with dosing regimen. 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) End: 25-Jan-2008 10:37 [facility] Historical Summary On: 24-Jan-2008 8:41 [facility] End: 24-Jan-2008 8:43 Historical Summary On: 05-Jan-2008 16:13 [facility] End: 05-Jan-2008 16:59 Nurse Visit On: 05-Jan-2008 15:44 Encounter Diagnosis: Transient Ischemic Attack (388.02) End: 05-Jan-2008 16:01 [facility] Phone Encounter On: 02-Jan-2008 16:50 [facility] End: 02-Jan-2008 16:52 Phone Encounter On: 02-Jan-2008 9:37 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 The course has been constant. The patient has a temperature of up to 100 F (101.0). The symptoms End: 19-Dec-2007 9:42 have been associated with abdominal pain ,chills ,dark urine ,ear pain ,fatigue ,frequency ,headache ,nausea and night sweats, while the symptoms have not been associated with chest pain ,cough ,diarrhea ,runny nose or sore throat. , [ADDITIONAL REASON] Urinary problems - The onset of the urinary problems has been sudden and they have been occurring in a persistent pattern for 1 days. The course has been constant. The urinary probl ems are described as moderate. The urinary problem is characterized as frequency and painful urination. There has been associated fever / chills ,back pain ,nausea and blood in urine. Past medical histo ry : kidney stones and recurrent urinary tract infection. Encounter Diagnosis: URINARY FREQUENCY (788.41), Pyelonephritis, unspecified (590.80), Anticoagulant, Current, Long-Term Use (V58.61) [facility] Office Visit On: 11-Nov-2007 8:47 Encounter Reason: Follow up for chronic medical issues - The patient feels well with minor complaints (fatigue). Patient has been compliant with instructions. Current medication use: experiencing side effects (thinks Pre End: 11-Nov-2007 9:54 dnisone causing fatigue). Patient sleeps 4 hours per night. Nutrition: balanced diet. The medical issues the patient is following up for include All identified problems below and other (PMR). 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 Patient has been compliant with instructions. Current medication use End: 19-Oct-2007 13:24 : no side effects and compliant with dosing regimen. Patient sleeps 7 hours per night. Nutrition: balanced diet and supplemental vitamins. The medical issues the patient is following up for include All identified problems below ,gastric reflux ,high cholesterol and osteoarthritis. blood pressure range :. , [ADDITIONAL REASON] Follow up, Laboratory Test Results - Date: (10-10-07 on face sheet). 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 The patient feels well with minor complaints (like head is under water-- but 80% better ). Patient has been compliant with instructions. Current End: 09-May-2007 10:39 medication use: no side effects and compliant with dosing regimen. Patient sleeps 7 hours per night. Nutrition: balanced diet and supplemental vitamins. Hospital procedures performed were other (ct scan of head, and blood work). 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 The course has been constant. The dizziness/ is characterized as spinning of the envir End: 05-May-2007 16:57 onment. The dizziness/ is precipitated by position change ,head turning and standing suddenly. The symptoms have been associated with anxiety ,headache ,loss of balance ,nausea ,sweating and vomiting (x 1), while the symptoms have not been associated with diabetes mellitus ,ear infection ,paresthesia ,recent head trauma ,seizures ,sensation of fullness or tinnitus. Past medical history : stroke (minist rokes x2). Note for Dizziness/: Threw up x1. No abd pain. Vison okay but head is spinning. Came on very abruptly while she was at work. 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), Transient Ischemic Attack (388.02), Hypercholesterolemia (272.0), GERD (530.81), Allergic Rhinitis(477.9), Elevated Blood Pressure without diagnosis of Hypertension (796.2), Osteoarthritis (715.90), POLYMYALGIA RHEUMATICA (725.) [facility] Nurse Visit On: 01-Apr-2007 14:42 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 Date: (01/06/07). Current medicaion use: compliant with dosing regimen. [facility] End: 12-Jan-2007 13:30 Phone Encounter On: 06-Jan-2007 18:29 [facility] End: 06-Jan-2007 18:31 Historical Summary On: 09-Dec-2006 18:10 [facility] End: 09-Dec-2006 18:14 Historical Summary On: 25-Nov-2006 17:27 [facility] End: 25-Nov-2006 17:29 Historical Summary On: 23-Nov-2006 17:45 [facility] End: 23-Nov-2006 17:47 Historical Summary On: 16-Nov-2006 15:29 [facility] End: 16-Nov-2006 15:32 Office Visit On: 12-Nov-2006 10:50 Encounter Reason: Cough - The onset of the cough has been acute. The cough is characterized as dry. The amount of sputum produced is less than a half a cup per day (CLEAR). The cough occurs all the time (EXPOSED TO PEOPL End: 12-Nov-2006 11:46 E WITH PNUEMONIA AND LIFE FLIGHTED TO BIGGER CENTER). The symptoms have been associated with runny nose and wheezing (LIL BIT), while the symptoms have not been associated with fever ,hemoptysis or sore throat. the color of the sputum is clear. , [ADDITIONAL REASON] Nasal congestion - The onset of the nasal congestion has been acute and has been occurring in a persistent pattern for days. The course has been increasing. 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) End: 13-Sep-2006 10:16 [facility] Historical Summary On: 25-Aug-2006 14:54 [facility] End: 25-Aug-2006 15:00 Office Visit On: 19-Jul-2006 10:09 Encounter Diagnosis: Unspecified Diagnosis End: 19-Jul-2006 10:18 [facility] Historical Summary On: 07-Jun-2006 10:10 [facility] End: 07-Jun-2006 10:14 Historical Summary On: 07-Jun-2006 10:02 Encounter Diagnosis: Unspecified Diagnosis End: 07-Jun-2006 10:08 [facility] Office Visit On: 19-May-2006 9:47 Encounter Reason: Follow up for chronic medical issues - The patient feels well with minor complaints and has good energy level. Patient has been compliant with instructions. The medical issues the patient is following u End: 19-May-2006 18:00 p for include gastric reflux ,high cholesterol and other (Chronic anticoagulation). , [ADDITIONAL REASON] Follow up, Laboratory Test Results - Lab results: other (Liver, PFLIP,CBC). Date : (05-14-2006). Current symptoms/reason for visit include/s Follow up visit with no current symptoms. 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
--- OUTSIDE RECORDS SUMMARY | 2018-11-18 16:14 | XMS RPT_ITS | Continuity of Care Document ---
:1950 Author Organization [facility] Address [address] [place] [address] Phone Care Team Providers Name Role Phone Hannah Leos DO Unavailable Rasta Alvarezine Unavailable Jana Hughes Unavailable WALDO Shields Unavailable Unavailable Long Shea HAAS Unavailable Unavailable Jessica Bliss Unavailable Unavailable Allie Gustafson Unavailable Unavailable Slarb BUSINESS ANALYSIS ANALYST, Deidra Unavailable Unavailable Unavailable Unavailable Problems Name [...] going to see Dyana, will see in [place] Status: Active Sepsis with hypotension (A41.9, 038.9) [...] infection), bacterial (N39.0, 599.0) Comments: while at [facility] -- E coli in culture and [...] : 21-Sep-2017 End : 13-Oct-2017 Inactive ERGOCALCIFEROL, 60410LXHJ (Oral Capsule) 2 Capsule q week for [...] days Quantity: 180 {Capsule} Refills: 3 Ordered:08-Nov-2013 eJssica Shields LPN Start : 08-Mar-2013 End : [...] Daily for 0 days Refills: 0 Ordered:16-Jul-2011 eJssica Shields LPN Start : 19-May-2006 End : 16-Jul-2011 Discontinued Comments:This order discontinued per [employer]. 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 [place] [address] Pacemaker Check Date of Service: 04/09/18924 MR#: [id number] Acct: [id number] Name: HERMINIA NASH Rep #: [id number] : 1950 From: Verónica Trinidad Age/Sex: 68/F Location: [facility] Status: Signed Billing Codes PM Device Codes: PM Dev Interrogate (Remot 04/09/1829 <Karsten kelly signed by Verónica Trinidad > Date Verónica Trinidad 04/11/18 1652<Electronically signed by Gary FALL> Cosigner Signature : Date (if applicable) Gary Zamora CC: 25-Mar-2018 History and Physical Exam Result: Comments: See Note; NOTES: [facility] Medical Records Department [address] [place] [address] History and Physical 03/25/18 1449 MR#: [id number] Acct: [id number] Name: Douglas NASH Rep #: [id number] : 1950 68 From: Karel Max DO [...] of 102.5 Fahrenheit. Patient was sent to [facility] emergency room. Patient was found to [...] history Psychiatric History: No pertinent psych hx ORANGE GROWER History: No pertinent ORANGE GROWER history Smoking Status: Never s coral Tobacco [...] Lovenox Code Visit Inpatient E AND M: 99159 Init Hosp L3 03/25/18 1457 <Electronically signed by Karel Max DO> Date Karel Max DO Cosigner Signature: Date (if applicable) CC: Karel Max DO; Hannah Leos DO Signed 25-Mar-2018 Chest 1 View (Portable) Result: Comments: See Note; NOTES: [facility] Imaging Services [address] [place] [address] Chest 1 View (Portable) MR#: [id number] Acct: [id number] Name: HERMINIA NASH Rep #: [id number] : 1950 F 68 From: Darrell Prado MD PCP: Hannah Leos DO Status: REG ER Study: Chest 1 View (Portable) Date of Exam: 03/25/18 Exam# [id number] Ordering Dr: Mitra Whitney STUDY: X-RAY CHEST [...] MD at 14:04 EDT , Service support [phone], CC: Mitra Whitney; Hannah Leos DO Aoc Director Combat Plans Officer: Signed 09-Feb-2018 Cardiology Visit Report Result: Comments: See Note; NOTES: [facility] [place] [address] OFFICE VISIT Date of Service: 01/28/18 MR#: [id number] Acct: [id number] Name: HERMINIA NASH Rep #: [id number] : 1950 Provider: Yasmin Aiken Age/Sex: 67/F Location[place] [facility] Status: Signed HPI HPI Details: HERMINIA NASH, [...] I ntake Visit Reasons: 3 M FU Ant[place]queak Filler Required: No Accompanied by: Is patient in [...] mg PO DAILY 10/06/17 [History Confirmed 01/28/18] [place] xyzine HCl 25 mg PO BID 10/07/17 [...] note was generated using a voice recog CURRENT system and there may be incorrect words, [...] __ (if applicable) Mehul Pollock MD CC: Hannahbharat Leos 11-Jan-2018 Pacemaker Check Result: Comments: See Note; NOTES: [facility] [address] [place], [place] [address]e. [address] [place] [address] Pacemaker Check Date of Service: 12/31/17 1423 MR#: [id number] Acct: [id number] Name: HERMINIA NASH Rep #: [id number] : 1950 From: Verónica Trinidad Age/Sex: 67/F Location[place] [facility] Status: Signed Comments Summary Comments: Dual Chamber Pacemaker Evaluation: 6 wk post PPM implant check co mpleted. Interrogation shows no MS episodes and no VT episodes since 11/16/17. Left pectoral pocket/incision w/o s/s of infection or erosion. Pt offers no cardiac complaints at present. Presenting rhythm shows AAI pacing @ 60 ppm. CLINICAL NURSING COORDINATOR=2%. Battery longevity approx 8.5yrs. Lead impedances, sensing and pace/sense thresholds remain stable. Decreased AV amplitudes with adequate safety margin to preserve olaf clary longevity. Counters cleared. Next f/u appt scheduled for in 3 mos. Device Device Date Interviewed: 12/31/17 Follow-up Location: in office Interview Reason: scheduled follow up Master Control Technician: [employer] Name: Ryan-O, Inccory MONTES DR IS-1 Model: L111 Serial #: [id number] Implant Date: 11/15/17 Year(s): 0 Implant Physician: Dr. Mehul Pollock/ [facility] Patient Characteristics Atrial Indication: sick sinus syndro me Patient Substrate: Arrhythmia Ejection fraction %: 50 to 54 (05/2015) By: Echo Underlying rhythm: Sinus rhythm Pacemaker Dependent: No Device Characteristics Device: Dual Chamber Type: Pacemaker Matthew te Follow-Up: Latitude Device Physical Exam Yes Incision well healed, No hematoma, Pocket not tender and No drainage Leads Lead #1 Master Control Technician Lead 1: [employer] Model Lead 1: 7741 Serial# Blanca d 1: [id number] Date Implanted Lead 1: 11/15/17 Position Lead 1: RA Lead #2 Master Control Technician Lead 2: [employer] Model Lead 2: 7740 Serial# Lead 2: [id number] Date Implanted Lead 2: 11/15/17 Position Lead [...] Pacemaker Check Result: Comments: See Note; NOTES: [facility] [address] [place] [address] Pacemaker Check Date of Service: 11/22/17 1119 MR#: [id number] Acct: [id number] Name: HERMINIA NASH Rep #: [id number] : 1950 From: Verónica Trinidad Age/Sex: 67/F Location[place] [facility] Status: Signed Comments Summary Comments: Wound Check: [...] in office Interview Reason: scheduled follow up Master Control Technician: [employer] Name: Garrett MONTES DR IS-1 Model: L111 Serial #: [id number] Implant Date: 11/15/17 Year(s): 0 Implant Physician: Dr. Mehul Pollock/ [facility] Patient Characteristics Atrial Indication: sick sinus syndrome Patient Substrate: Arrhythmia (junctional rhythm with HR in 20's) Ejection fraction %: 5 0 to 54 (05/2015) By: Echo Underlying rhythm: Sinus rhythm Pacemaker Dependent: No Device Characteristics Device: Dual Chamber Type: Pacemaker Device Physical Exam Yes Steri-strips intact, No hematoma a nd No drainage Leads Lead #1 Master Control Technician Lead 1: [employer] Model Lead 1: 7740/45 [facility] MRI Serial# Lead 1: [id number] Date Implanted Lead 1: 11/15/17 Position Lead 1: RA Lead #2 Master Control Technician L ead 2: [employer] Model Lead 2: 7741/52 [facility] Serial# Lead 2: [id number] Date Implanted Lead 2: 11/15/17 Position Lead [...] Discharge Instruction Result: Comments: See Note; NOTES: [facility] Medical Records Department [address] [place] [address] Discharge Instruction 11/17/17 1836 MR#: [id number] Acct: [id number] Name: HERMINIA NASH Rep #: [id number] : 1950 67 From: Rodríguez Costa DO [...] your Primary Care Provider. Call [facility] ([phone]) or report t o the closest Emergency Room. Call 911 if necessary. 11/17/171836 <Electronically signed by Rodríguez Costa DO> Date Rodríguez Costa DO Co signer Signature (If Indicated): Date CC: Hannah Leos DO 17-Nov-2017 Emergency Department Summary Result: Comments: See Note; NOTES: [facility] Medical Records Department [address] [place] [address] Emergency Department Summary 11/17/17 183 MR#: [id number] Acct: [id number] Name: HERMINIA NASH Rep #: [id number] : 1950 67 From: Rodríguez Costa DO [...] of infection] This note was generated with Egodeus dictation software. It may contain incorrect words, spelling, and punctuation that were not noted in review of the chart prior to signing ED Dispositi on - Plan for ED Patient: Chief Complaint: Wound Check Referrals: Hannah eLos, [Primary Care Provider] - What to do if you have Problems For any increased pain, shortness of breath, bleeding , nausea or vomiting, chest pain, or any unexpected problems, contact your Primary Care Provider. Call [facility] ([phone]) or report to the closest Emergency Room. Call 911 if necessary. 0 11/17/17 1836 <Electronically signed by Rodríguez Costa DO> Date Rodríguez Costa DO Cosigner Signature (If Indicated): Date CC: Hannah Leos DO 16-Nov-2017 Discharge Instruction Result: Comments: See Note; NOTES: [facility] Medical Records Department [address] [place] [address] Instructions for Home/Discharge Instructions 11/16/17 0848 MR#: [id number] Acct: [id number] Name: HERMINIA NASH Rep #: [id number] : 1950 67 From: Mehul Pollock MD PCP: Hannah Leos DO Status: REG [facility] Discharge Diet: No Restrictions Discharge Activity: May [...] call your doctor's office or Doctor's Registry ([phone]) Call 911 or g o to the [...] 1 View Result: Comments: See Note; NOTES: [facility] Imaging Services [address] [place] [address] Chest 1 View MR#: [id number] Acct: [id number] Name: HERMINIA NASH N Rep #: [id number] : 1950 F 67 From: Martha Delgado MD PCP: Hannah Leos DO Status: [facility] Study: Chest 1 View Date of Exam: 11/16/17 Exam# [id number] Ordering Dr: Mehul Pollock MD STUDY: X-RAY [...] CC: Mehul Pollock MD; Hannah Leos DO Aoc Director Combat Plans Officer: Signed 16-Nov-2017 Chest PA and Lateral Result: Comments: See Note; NOTES: [facility] Imaging Services [address] [place] [address] Chest PA and Lateral MR#: [id number] Acct: [id number] Name: HERMINIA NASH N Rep #: [id number] : 1950 F 67 From: Mallorie Bolaños MD PCP: Hannah Leos DO Status: [facility] Study: Chest PA and Lateral Date of Exam: 11/16/17 Exam# [id number] Ordering Dr: Mehul Pollock MD STUDY: X-RAY [...] CC: Mehul Pollock MD; Hannah Leos DO Aoc Director Combat Plans Officer: Signed 05-Nov-2017 Office Visit Report Result: Comments: See Note; NOTES: [facility] Services [facility] [place] [address] OFFICE VISIT Date of Service: 11/05/17 MR#: [id number] Acct: [id number] Patient: HERMINIA NASH Rep #: [id number] : 1950 Provider: Verónica Trinidad Age/Sex: 67/F Location: [facility] Status: Signed Comments Summary Comments: PPM implant [...] CC: 05-Nov-2017 12 Lead EKG performed by [facility] Result: Comments: See Note; NOTES: [facility] [address] [place] [address] 12 Lead EKG performed by [facility] 11/05/17 1027 MR#: [id number] Acct: [id number] Name: HERMINIA BLAND Rep #: [id number] : 1950 67 From: Mehul Pollock MD Attending Dr: Verónica Trinidad Status: REG AMB Ordering Dr: Mehul Pollock MD Date: 11/05/17 Location: [facility] Sex: F A Admitted: ZEINA R #: [id number] BMS/12 Lead EKG performed by [facility] Sinus Rhythm Low voltage in limb leads. - Diffuse nonspecific T-abnormality. BNORMAL 11/05/17 1522 <Electronically signed by Mehul Pollock MD&amp ;#62; Date Mehul Pollock MD CC: Hannah Leos DO Date Dictated: 11/05/17 1027 Date Transcribed: 11/05/17 102 Aoc Director Combat Plans Officer: CO Signed 05-Nov-2017 12 Lead EKG performed by BMS Result: Comments: See Note; NOTES: [facility] [address] [place] [address] 12 Lead EKG performed by [facility] 11/05/17 1027 MR#: [id number] Acct: [id number] Name: HERMINIA BLAND Rep #: [id number] : 1950 67 From: Mehul Pollock MD Attending Dr: Verónica Trinidad Status: DEP AMB Ordering Dr: Mehul Pollock MD Date: 11/05/17 Location: [facility] Sex: F A Admitted: BMS/12 Lead EKG performed by [facility] ECG Report Interpretation Sinus Rhythm Low voltage in limb leads. - Diffuse nonspecific T-abnormality. ABNORMAL Electronically sig perfecto on 11/18/2017 at 13:49 by Mehul Pollock 11/18/17 1350 Date Mehul Pollock MD CC: Hannah Leos DO Date Dictated: 11/05/17 1027 Date Transcribed: 11/05/17 1027 Aoc Director Combat Plans Officer: CO Signed 29-Oct-2017 Cardiology Visit Report Result: Comments: See Note; NOTES: [facility] [address] [place] [address] OFFICE VISIT Date of Service: 10/29/17 MR#: [id number] Acct: [id number] Name: HERMINIA NASH Rep #: [id number] : 1950 Provider: Yasmin Aiken Age/Sex: 67/F Location: [facility] Status: Signed HPI HPI Details: HERMINIA NASH, [...] Lt brachial Intake Visit Reasons: 4 M [place]queak Filler Required: No Accompanied by: Is patient in [...] prior to saving. 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 Call [place] Registry ([phone]) or report to the closest Emergency Room. Call 911 if necessary. 1710 <Electronically signed by Wenceslao Marley MD> Date Wenceslao Marley MD Cosigner Signature (If Indicated): Date _ CC: Hannah Leos DO 13-Oct-2017 Emergency Department Summary Result: Comments: See Note; NOTES: [facility] Medical Records Department [address] [place] [address] Emergency Department Summary 10/13/17 1240 MR#: [id number] Acct: [id number] Name: HERMINIA NASH Rep #: [id number] : 1950 67 From: Wenceslao Marley MD PCP: Hannah Leos DO Status: DEP ER - ER Visit Summary Date of Service: 10/13/17 Chief Complaint: Cough, fever and ch ills History of Present Illness: The patient is a 67 F past medical history significant for hemorrhagic CVA, wxi-sgadflj-nvomoiuvu diabetes, hypertension, A. fib, seizure disorder. Patient [...] of CVA. With seizure disorder. History of doa-vtkzbhj-tpgonsheh diabetes. History of A. fib T his note was generated with Egodeus dictation software. It may contain incorrect words, [...] problems, contact your Primary Care Provider. Call [place] Registry ([phone]) or report to the closest Emergency Room. Call 911 if necessary. 10/13/17 170 9 <Electronically signed by Wenceslao Marley MD> Date Wenceslao Marley MD Cosigner Signature (If Indicated): Date CC: Hannah Leos DO 13-Oct-2017 Consultation Result: Comments: See Note; NOTES: [facility] Medical Records Department [address] [address] Consultation 10/13/17 1608 MR#: [id number] Acct: [id number] Name: HERMINIA NASH Rep #: [id number] : 1950 67 From: Noe Kwok MD [...] history Psychiatric History: No pertinent psych hx ORANGE GROWER History: No pertinent ORANGE GROWER history Smoking Status: Never smoker - *Family [...] (Auto) Neut % (Auto) Lymph % (Auto) [place] % (Auto) Diagnostic Data Chest X-Ray 10/13/17 [...] outpatient. Code Visit Inpatient E AND M: 63061 Ini t Hosp L2 10/13/17 1625 <Electronically signed by Noe Kwok MD> Date Noe Kwok MD Cosigner Signature (if applicable): Date CC: Hannah Leos DO Signed 13-Oct-2017 Chest PA and Lateral Result: Comments: See Note; NOTES: [facility] Imaging Services [address] [place] [address] Chest PA and Lateral MR#: [id number] Acct: [id number] Name: HERMINIA NASH Rep #: [id number] : 1950 F 67 From: Anna Becerra MD PCP: Hannah Leos DO Status: REG ER Study: Chest PA and Lateral Date of Exam: 10/13/17 Exam# [id number] Ordering Dr: Wenceslao Marley MD STUDY: X-RAY [...] CC: Wenceslao Marley MD; Hannah Leos DO Aoc Director Combat Plans Officer: Signed 06-Oct-2017 Emergency Department Summary Result: Comments: See Note; NOTES: [facility] Medical Records Department [address] [place] [address] Emergency Department Summary 10/06/17 2224 MR#: [id number] Acct: [id number] Name: HERMINIA NASH Rep #: [id number] : 1950 67 From: Francia Lr MD [...] bleeding This note was genera gayla with Egodeus dictation software. It may contain incorrect words, [...] your Primary Care Provider. Call [facility] ([phone]) or report to the closest Emergency Room. Call 911 if necessary. 10/06/17 2318 <Electronica lly signed by Francia Lr MD> Date Francia Lr MD Cosigner Signature (If Indicated): Date CC: Hannah Leos DO 06-Oct-2017 Pelvic (Non ) Result: Comments: See Note; NOTES: [facility] Imaging Services [address] [place] [address] Pelvic (Non ) MR#: [id number] Acct: [id number] Name: HERMINIA NASH Rep #: [id number] : 1950 F 67 From: Tirso Ovalle PCP: Hannah Leos DO Status: REG ER Study: Pelvic (Non ) Date of Exam: 10/06/17 Exam# [id number] Ordering Dr: Francia Lr MD STUDY: ULTRASOUND [...] CC: Francia Lr MD; Hannah Leos DO Aoc Director Combat Plans Officer: Signed 06-Oct-2017 Chest 1 View (Portable) Result: Comments: See Note; NOTES: [facility] Imaging Services [address] [place] [address] Chest 1 View (Portable) MR#: [id number] Acct: [id number] Name: HERMINIA NASH Rep #: [id number] : 1950 F 67 From: Tirso Ovalle PCP: Hannah Leos DO Status: [facility] ER Study: Chest 1 View (Portable) Date of Exam: 10/06/17 Exam# [id number] Ordering Dr: Francia Lr MD STUDY: X-RAY [...] DO at 21:42 EST , Service support [phone], CC: Francia Lr MD; Hannah Leos DO Aoc Director Combat Plans Officer: Signed 03-Sep-2017 Emergency Department Summary Result: Comments: See Note; NOTES: [facility] Medical Records Department [address] [place] [address] Emergency Department Summary 09/02/17 2105 MR#: [id number] Acct: [id number] Name: HERMINIA NASH Rep #: [id number] : 1950 67 From: Jesus Alberto Fernandes [...] at 19:47 EST , Service support , [facility] Department Course and Treatment: Patient was given [...] Recurrent seizure. This note was generated with Egodeus dictation software. It may contain incorrect words, [...] your Primary Care Provider. Call [facility] ([phone]) or report to the closest Emergenc y Room. Call 911 if necessary. 09/03/17 0218 <Electronically signed by Jesus Alberto Fernandes MD> Date Jesus Alberto Fernandes MD Cosigner Signature (If Indicated): Date CC: Hannah Leos DO 02-Sep-2017 Brain W/WO Contrast Result: Comments: See Note; NOTES: [facility] Imaging Services [address] [place] [address] Brain W/WO Contrast MR#: [id number] Acct: [id number] Name: HERMINIA NASH Rep #: [id number] : 1950 F 67 From: Darrell Prado MD PCP: Hannah Leos DO Status: [facility] ER Study: Brain W/WO Contrast Date of Exam: 09/02/17 Exam# [id number] Ordering Dr: Jesus Alberto Fernandes MD STUDY: [...] Hannah Leos DO; Jesus Alberto Fernandes MD Aoc Director Combat Plans Officer: Signed 02-Sep-2017 Brain/Head without Contrast Result: Comments: See Note; NOTES: [facility] Imaging Services [address] [place] [address] Brain/Head without Contrast MR#: [id number] Acct: [id number] Name: HERMINIA NASH Rep #: [id number] : 1950 F 67 From: Greg Leiva MD PCP: Hannah Leos DO Status: PRE ER Study: Brain/Head without Contrast Date of Exam: 09/02/17 Exam# [id number] Ordering Dr: Jesus Alberto Fernandes MD STUDY: [...] Hannah Leos DO; Jesus Alberto Fernandes MD Aoc Director Combat Plans Officer: Signed 20-Aug-2017 PT D/C Summary (1) Result: Comments: See Note; NOTES: [facility] Physical Therapy [facility] [address] [place] [address] Fax REHABILITATION SERVICES DISCHAR GE SUMMARY MR#: [id number] Acct: [id number] Name: HERMINIA NASH Rep #: [id number] [...] please feel free to call me at [phone]. Thank you for the referral of this patient. Sincerely, Karel Kwong, DPT, OC &am p;#60;Electronically signed by Karel Kwong DPT, YULISA, CSCS> 08/20/17 1619 CC: Hannah Leos DO EBG Signed 04-Aug-2017 Re-Evaluation - PT (1) Result: Comments: See Note; NOTES: [facility] [address] [place] [address] Fax REEVALUATION / MEDICARE [facility] PHYSICAL THERAPY MR#: [id number] Acct: [id number] Name: HERMINIA NASH Rep #: [id number] : 1950 67 From: Karel Kwong DPT, [...] do not hesitate to contact me at [phone] by phone or if you have questions or concerns regarding this new plan of care! Sincerely, Karel Kwong DPT, OC <Electronically signed by Karel Kwong DPT, OCS, [facility]> 7 0746 CC: Hannah Leos DO EBG Signed For Medicare only, by signing this I certify the plan of care. Physicians Signature Date 03-Aug-2017 Re-Evaluation - PT (1) Result: Comments: See Note; NOTES: [facility] [address] [place] [address]. [address] [place] [address] Fax REEVALUATION / MEDICARE RECERTI [facility] PHYSICAL THERAPY MR#: [id number] Acct: [id number] Name: HERMINIA NASH Rep #: [id number] : 1950 67 From: Shaunna Buitrago DPT [...] do not hesitate to contact me at [phone] by phone or if you have questions or concerns regarding this new plan of care! Sincerely, Shaunna Buitrago <Electronically signed by Shaunna Mclain om DPT> 08/03/17 1054 CC: Hannah Leos DO EMILY Signed For Medicare only, by signing this I certify the plan of care. Physicians Signature Date 09-Jul-2017 Re-Evaluation - PT (1) Result: Comments: See Note; NOTES: [facility] Physical [facility] [address] [place], [place] [address] Fax REEVALUATION / MEDICARE RECERTMarybeth LONG PHYSICAL THERAPY MR#: [id number] Acct: [id number] Name: HERMINIA NASH Rep #: [id number] : 1950 67 From: Shaunna Buitrago DPT [...] do not hesitate to contact me at [phone] by phone or Fax: if you have questions or concerns regarding this new plan of care! Sincerely, Shaunna Buitrago <Electronically signed by Shaunna Buitrago DPT> 07/09/17 1252 CC: Hannah Leos DO ELR Signed For Medicare only, by signing this I certify the plan of care. Physicians Signature Date 23-Jun-2017 PT Communication Result: Comments: See Note; NOTES: [facility] [address] [place] [address]. [address] [place] [address] Fax REHABILITATION SERVICES PROGRES S NOTE MR#: [id number] Acct: [id number] Name: HERMINIA NASH Rep #: [id number] : 1950 67 From: Karel Kwong DPT, OCS, CSCS Referring Dr.: Hannah Leos DO Status: REG RCR Insurance: [employer] MEDICARE PPO PT Communication Note 06/15/[address] Hannah Leos , Thank you for the referral of Herminia to [facility] for balance assessment. I have enclosed [...] Department Summary Result: Comments: See Note; NOTES: [facility] Medical Records Department [address] [place] [address] Emergency Department Summary 06/20/17 2105 MR#: [id number] Acct: [id number] Name: HERMINIA NASH Rep #: [id number] : 1950 67 From: Huy Caballero PCP: [...] friends on the ground. Airplane went to [place] , she is found to have a [...] stools. Additional history, spouse states while in [place] patient was on a ventilator for 3 [...] for ED Patient: Disposition: Acute Care Hospital [facility] Chief Complaint: Seizure Diagnosis: Atrial fibrillation with RVR , Breakthrough seizure Referrals: Hannah Leos DO [NON-STAFF] - What to do if you have Problems For any increased pain, shortness of breath, bleeding, nausea or vomiting, chest pain, or any une xpected problems, contact your Primary Care Provider. Call [facility] ([phone]) or report to the closest Emergency Room. Call 911 if necessary. 06/20/172321 <Electronically signed by Huy Caballero> Date Huy Caballero Cosigner Signature (If Indicated): Date CC: Hannah Leos DO 20-Jun-2017 Emergency Department Summary Result: Comments: See Note; NOTES: [facility] Medical Records Department [address] [place] [address] Emergency Department Summary 06/20/175 MR#: [id number] Acct: [id number] Name: HERMINIA NASH Rep #: [id number] : 1950 67 From: Huy Caballero PCP: [...] friends on the ground. Airplane went to [place], she is fou nd to have a [...] stools. Additional history, spouse states while in [place] patient was on a ventila tor for [...] for ED Patient: Disposition: Acute Care Hospital [facility] Chief Complaint: Seizure Diagnosis: Atrial fibrillation with RVR, Isela gh seizure Referrals: Hannah Leos, [NON-STAFF] - What to do if you have Problems For any increased pain, shortness of breath, bleeding, nausea or vomiting, chest pain, or any unexpected prob lems, contact your Primary Care Provider. Call [place] [facility] ([phone]) or report to the closest Emergency Room. Call 911 if necessary. 06/20/172321 <Electronically signed by Huy Spear> Date Huy Caballero Cosigner Signature (If Indicated): Date CC: Hannah eLos DO 20-Jun-2017 Chest 1 View (Portable) Result: Comments: See Note; NOTES: [facility] Imaging Services [address] [place] [address] Chest 1 View (Portable) MR#: [id number] Acct: [id number] Name: HERMINIA NASH Rep #: [id number] : 1950 F 67 From: Stef Wong MD PCP: Hannah Leos DO Status: REG ER Study: Chest 1 View (Portable) Date of Exam: 06/20/17 Exam# [id number] Ordering Dr: Huy Pitts DO STUDY: X-RAY [...] , CC: Hannah Leos DO; Huy Pitts Aoc Director Combat Plans Officer: Signed 02-Jun-2017 SCREENING MAMM (CAD), BILAT Result: Comments: See Note; NOTES: [facility] Imaging Services [address] [place] [address] SCREENING MAMM (CAD), BILAT MR#: [id number] Acct: [id number] Name: HERMINIA NASH Rep #: [id number] : 1950 F 67 From: Martha Delgado MD PCP: Hannah Leos DO Status: REG CLI Study: SCREENING MAMM (CAD), BILAT Date of Exam: 06/02/17 Exam# [id number] Ordering Dr: Hannah Leos DO MAMMOGRAPHY - [...] significant abnormalities are identified. ORDER # : [id number] HPBI/SCREENING MAMM (CAD), BILAT IMPRESSION: Stable bilateral screening mammogram. Yearly follow-up mammogram recommended. (A) ASSESSMENT CATEGORY: BIRA DS Category 2: Benign. A letter regarding these results will be sent to the patient by the facility within 30 days. Approximately 10% of breast cancers are not detected by mammography. A normal mammogr am should not delay biopsy of a clinically suspicious abnormality. [id number] Electronically Signed: Martha Delgado MD at 15:16 EDT Tel , Service support , Fax CC: Hannah Leos DO Aoc Director Combat Plans Officer: Signed 27-May-2017 Inital Evaluation (1) - PT Result: Comments: See Note; NOTES: [facility] Physical Therapy [address] [place] [address] Fax REHABILITATION SERVICES INITIAL EVALUATION MR#: [id number] Acct: [id number] Name: HERMINIA NASH Rep #: [id number] : 1950 67 From: Shaunna Buitrago DPT [...] she was on a plane back to [place]. She had a seizure on the plane- they made an emergency landing in [place] and she spent 10 days in the ICU. 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 She is osage ng to get back to these things [...] to be FAXED BACK to us at [phone] for Medicare purposes. Please let me know if there are questions or concerns regarding this plan of care. Physician Signature: Date: <Electronically signed by Shaunna Barragan PT> 05/27/17 1058 CC: Hannah Leos DO ELR Signed For Medicare only, by signing this I certify the plan of care. Physicians Signature Date 21-May-2017 OT D/C Summary Result: Comments: See Note; NOTES: [facility] Occupational Therapy [facility] [address] [place] [address] Fax REHABILITATION SERVICES DIS CHARGE SUMMARY MR#: [id number] Acct: [id number] Name: HERMINIA NASH Rep #: [id number] : 1950 67 From: Deyanira Crockett Referring [...] WFL. Pt. strength measurments are as follows; technician semiconductor development R 52, L 44; lat eral R [...] Ho bbies Goal:: Pt. to increase L technician semiconductor development by 20 lbs to promote increase technician semiconductor development strength for ADl/AIDls and manipualtion of bilateral [...] please fell free to call me at [phone]. Thank you for the referral of this patient. Sincerely, Deyanira Crockett <Ana Maria ctronically signed by Deyanira Crockett > 05/21/17 1121 CC: Hannah Leos DO KMB Signed 20-May-2017 Emergency Department Summary Result: Comments: See Note; NOTES: [facility] Medical Records Department [address] [place] [address] Emergency Department Summary 05/20/17 1638 MR#: [id number] Acct: [id number] Name: HERMINIA NASH Rep #: [id number] : 1950 67 From: Juan Mendiola MD [...] discussion with pharmacist she was loaded with [employer]. Case was discussed with Dr. Schaffer after [...] Primary Care Provid er. Call [facility] ([phone]) or report to the closest Emergency Room. Call 911 if necessary. 05/20/17 1644 <Electronically signed by Juan Mendiola MD> Date Juan Mendiola MD Cosigner Signature (If Indicated): Date CC: Hannah Leos DO; Armando Schaffer MD 20-May-2017 Brain/Head without Contrast Result: Comments: See Note; NOTES: [facility] Imaging Services [address] [place] [address] Brain/Head without Contrast MR#: [id number] Acct: [id number] Name: HERMINIA NASH Rep #: [id number] : 1950 F 67 From: Paresh Kebede MD PCP: Hannah Leos DO Status: REG ER Study: Brain/Head without Contrast Date of Exam: 05/20/17 Exam# [id number] Ordering Dr: Juan Mendiola MD STUDY: CT [...] Paresh Kebede MD at 16:07 EDT Tel [phone], Service support , CC: Hannah Leos DO; Juan Mendiola MD Aoc Director Combat Plans Officer: Signed 21-Apr-2017 Brain without Contrast Result: Comments: See Note; NOTES: [facility] Imaging Services [address] [place] [address] Brain without Contrast MR#: [id number] Acct: [id number] Name: HERMINIA NASH Rep #: [id number] : 1950 F 67 From: Martha Delgado MD PCP: Hannah Leos DO Status: REG CLI Study: Brain without Contrast Date of Exam: 04/21/17 Exam# [id number] Ordering Dr: Manjinder Turpin MD STUDY: MRI [...] by Martha Delgado MD to Manjinder Turpin, [facility] Physician, on 04/21/2017 16:04:47 (ET). Elect ronically Signed: Martha Delgado MD at 16:04 EDT Tel , Service support , N.B. : The above information has been verbally conveyed by Martha Delgado MD to Manjinder Turpin, Covering Physician, on 04/21/2017 16:04:47 (ET). CC: Manjinder Turpin; Hannah Leos DO Aoc Director Combat Plans Officer: Signed 21-Apr-2017 OT General Evaluation Result: Comments: See Note; NOTES: [facility] Occupational Therapy [facility] [address] [place] [address] Fax REHABILITATION SERVICES INI TIAL EVALUATION MR#: [id number] Acct: [id number] Name: HERMINIA NASH Rep #: [id number] : 1950 67 From: Deyanira Crockett Referring Dr.: Hannah Leos DO Status: REG RCR Insurance: [employer] MEDICARE PPO Eval Date: Patient's Visit Information HERMINIA NASH is a 67 year old F, referred to Occupational Therapy by Hannah Leos,, with a diagnosis of Cerebral Hemorrhage. Date [...] medics called to plane after landing in [place]. Family drove out to [place]. She was intubated wit h trach tube and other lines. She noted when sedated she pulled trach out which has left her with hoarse voice. She spend 10 days in ICU according to , was moved out and then driven home to [place] from [place]. She has not had seizures for a few weeks and notes she is feeling pretty good. She noted she has h/o TIA a few years ago in which she has experience L sided neglect. - Objective Objective/Observation: Pt. appeared with ROM in BUE WFL. Pt. presents with L sided weakness. Pt. R technician semiconductor development 70 lbs, L 49 lbs. Pt. seizure occured during session. Lasted 2 mins and then subsided w ith medication. No loss of conciousness or movement. Pt. able to walk with out of session. - ROM Shoulder: WFL Elbow: WFL Forearm: WFL Wrist: WFL MP: WFL PIP: WFL DIP: WFL - Strength Shoulder: R 4+/5, L 4-/5 Elbow: R 4+/5, L 4-/5 Employment Attorney: R 70 L 49 Lateral Pinch: R [...] sa fety. Family to call in to [facility] follow-up appointments. Varbalized undertsanding and to [...] - Goals Goal:: Pt. to increase L technician semiconductor development by 20 lbs to promote increase technician semiconductor development strength for ADl/AIDls and manipualtion of bilateral [...] to be FAXED BACK to us at [phone] for Medicare purposes. Please let me know if there are questions or concerns regarding this plan of care. Physician Signature: Date: <Electronically signed by Deyanira Crockett > 04/21/17 0921 CC: Hannah Leos DO KMB Signed For Medicare only, by signing this I certify the plan of care. Physicians Signature Date 20-Apr-2017 Adult Evaluation - SP Result: Comments: See Note; NOTES: [facility] Speech Pathology [facility] 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 Right Hearing Abillity: Normal Left Hearing Abillity: [...] <Electronic ally signed by Aries Dan M.A. [facility]-HAND WOOD SANDER> 04/20/17 1418 CC: Hannah Leos DO YASSINE Signed For Medicare only, by signing this I certify the plan of care. ____ Physicians Signature Date 16-Apr-2017 Brain/Head without Contrast Result: Comments: See Note; NOTES: [facility] Imaging Services [address] [place] [address] [place] [address] Brain/Head without Contrast MR#: [id number] Acct: [id number] Name: HERMINIA NASH Rep #: [id number] : 1950 F 67 From: Paresh Kebede MD PCP: Hannah Leos DO Status: REG CLI Study: Brain/Head without Contrast Date of Exam: 04/16/17 Exam# [id number] Ordering Dr: Ramiro Leos DO STUDY: CT [...] Paresh Kebede MD at 15:34 EDT Tel [phone], Service support , CC: Hannah Leos DO Aoc Director Combat Plans Officer: Signed 08-Apr-2017 Emergency Department Summary Result: Comments: See Note; NOTES: [facility] Medical Records Department [address] [place] [address] Emergency Department Summary 04/08/17 0711 MR#: [id number] Acct: [id number] Name: HERMINIA NASH Rep #: [id number] : 1950 67 From: Martin Rodriguez MD [...] intracranial hemorrhage and was actually hospitalized in [place]. Apparently the patient is still in recovery [...] Primary Care Provide r. Call [facility] ([phone]) or report to the closest Emergency Room. Call 911 if necessary. 04/08/17 0743 <Electronically signed by Martin Rodriguez MD> Date ____ Martin Rodriguez MD Cosigner Signature (If Indicated): Date CC: Hannah Leos DO 08-Apr-2017 Chest 1 View (Portable) Result: Comments: See Note; NOTES: [facility] Imaging Services [address] [place] [address] Chest 1 View (Portable) MR#: [id number] Acct: [id number] Name: HERMINIA NASH Rep #: [id number] : 1950 F 67 From: Ady Steele MD PCP: Hannah Leos DO Status: REG ER Study: Chest 1 View (Portable) Date of Exam: 04/08/17 Exam# [id number] Ordering Dr: Martin Rodriguez MD STUD Y: [...] , CC: Hannah Leos DO; Martin Rodriguez Aoc Director Combat Plans Officer: Signed 08-Apr-2017 Brain/Head without Contrast Result: Comments: See Note; NOTES: [facility] Imaging Services [address] [place] [address] Brain/Head without Contrast MR#: [id number] Acct: [id number] Name: HERMINIA NASH Rep #: [id number] : 1950 F 67 From: Ady Steele MD PCP: Hannah Leos DO Status: REG ER Study: Brain/Head without Contrast Date of Exam: 04/08/17 Exam# [id number] Ordering Dr: Martin Rodriguez STUDY: CT BRAIN [...] , CC: Hannah Leos DO; Martin Rodriguez Aoc Director Combat Plans Officer: Signed 08-Mar-2017 Elbow min 3 Views Result: Comments: See Note; NOTES: [facility] Imaging Services [address] [place] [address] Verdana 4d Elbow min 3 Views MR#: [id number] Acct: [id number] Name: HERMINIA NASH Rep #: [id number] : 1950 F 66 From: Greg Leiva MD PCP: Hannah Leos DO Status: REG CLI Study: Elbow min 3 Views Date of Exam: 03/08/17 Exam# [id number] Ordering Dr: Daniela Herzog STUDY: X-RAY - RIGHT ELBOW REASON FOR EXAM: Female, 66 years old. Pain. TECHNIQUE: 3 view(s) of the elbow. COMPARISON: None. FINDINGS: Normal visualized humerus, radius and u manager port. There is degenerative arthrosis of the radiocapitellar and ulnotrochlear articulations. The soft tissue structures are unremarkable. RAD/El bow min 3 Views IMPRESSION: No acute fracture or dislocation. Arthrosis. Electronically Signed: Greg Leiva MD at 14:47 EDT , Service support , Fax CC: Daniela Herzog; Hannah Leos DO Aoc Director Combat Plans Officer: Signed 22-Oct-2015 Bilat Scrn Digital AND CAD Result: Comments: See Note; NOTES: [facility] Imaging Services [address] [place] [address] Verdana 4d Bilat Scrn Digital AND CAD MR#: [id number] Acct: [id number] Name: HERMINIA NASH Rep #: [id number] : 1950 F 65 From: Paresh Kebede MD PCP: Hannah Leos DO Status: REG CLI Study: Bilat Scrn Digital AND CAD Date of Exam: 10/22/15 Exam# [id number] Or dering Dr: Hannah Leos DO MAMMOGRAPHY [...] Paresh Kebede MD at 16:11 EST Tel [phone], Service support [phone], CC: Hannah Leos DO Aoc Director Combat Plans Officer: Signed 22-Oct-2015 Dexa Bone Density Study (HP) Result: Comments: See Note; NOTES: [facility] Imaging Services [address] [place] [address] Verdana 4d Dexa Bone Density Study (HP) MR#: [id number] Acct: [id number] Name : HERMINIA NASH Rep #: [id number] : 1950 F 65 From: Paresh Kebede MD PCP: Hannah Leos DO Status: [facility] Study: Dexa Bone Density Study (HP) Date of Exam: 10/22/15 Exam# [id number]: Hannah Leos DO STUDY: [...] Paresh Kebede MD at 8:05 EST Tel [phone], Service support [phone], CC: Hannah Leos DO Aoc Director Combat Plans Officer: Signed 17-Oct-2015 ELECTROCARDIOGRAM, COMPLETE (ECG) (65297) Comments: nsr no acute chg Result: [MEASUREMENTS ANALYSIS] Date of Test: 10/17/2015 08:35:17; Heart Rate: 61; WY Interval: 176; QRS: 104; QT Interval: 402; Corrected QT Interval (QTc): 403; P Wave [place]: -1; QRS Wave [place]: 9; T Wave [place]: -1; Blood Pressure: 148/84 [ECG DIAGNOSTIC STATEMENTS] [...] smoker Vital Signs Date Test Result Details 11-Vro-978738:27 Comments: [id number] BP Systolic 130 mm[Hg] Comments: Patient Position: [...] kg/m2 Body Surface Area Calculated 1.8 m2 4-Izs-622410:36 Temperature 97.6 f Comments: Method: Temporal Pulse [...] 0.00 cm Results Date Description Value Details 24-Kcz-934484:27 Miscellaneous Lab Procedure Comments: Comments: [id number] LACOSAMIDE SER RTTest(s) Ordered: [id number] LACOSAMIDE SER [facility] [address] [place], [place], [id number] [facility] Comments: TEST RESULT UNITS REFERENCE INTERVALLacosamideLacosamide 16.6 High ug/mL 5.0 - 10.0 Limit of Detection 0.5 Mean plasma concen LAB (Normal) trations following maintenance dose 200 mg/day 4.99 +/- 2.51 ug/mL 400 mg/day 9.35 +/- 4.22 ug/mL 600 mg/day 12.46 +/- 5. TEST 60 ug/mLPlease Note:This test was developed and its performance characteristicsdetermined by [facility]. It has not been cleared or approvedby the Food and Drug Administration. TESTING PERFORMED AT [facility]. ORIGINAL REPORT ON FILE IN LAB CONTAINS ADDITIONAL TEST SITE INFORMATION. 40-Dky-493684:27 Valproic Acid (Depakene) Level Comments: [facility] [address] [place], [id number] VALPROIC ACID 65 ug/mL (Normal) Range: 50-100 36-Lah-790423:31 Potassium Comments: [facility] [address] [place], [place], [address] K 4.8 mmol/L (Normal) Range: 3.5-5.1 69-Lxf-721208:49 METABOLIC PANEL, COMPREHENSIVE Comments: PATIENT NOT FASTINGPERFORMED BY: [facility] Xcpdne8457 [facility] [id number] ([id number]) ALT (SGPT) 1 [iU]/L (Normal) Range: 0-32 [...] be decreased and K increased. Clinicalcorrelation indicated. 26-Fvm-380730:49 CBC, PLATELETS & AUT DIFF Comments: PATIENT NOT FASTINGPERFORMED BY: [facility] Nrlbli9742 [facility] [id number] ([id number]) Immature Grans (Abs) 0.0 {x10E3/uL} (Normal) Range: [...] 3.77-5.28 WBC 5.7 {x10E3/uL} (Normal) Range: 3.4-10.8 54-Jwk-276895:16 URINE FAVIAN CULTURE-IDENTIFICATN Comments: PATIENT NOT FASTINGPERFORMED BY: RENARD [facility] [address] [place] [id number] Information: SRC:UC ([id number]) Result 1 MUG (Normal) Comments: Mixed urogenital flora10,000-25,000 colony forming units per mL Urine Final report (Normal) Culture,Comprehensive 91-Vlw-201821:14 Urinalysis, Office (52488) UA - LEUKOCYTE ESTERASE Negative (Normal) UA - NITRITE Negative (Normal) URINE UROBILINGN KEERTHI TIMED Normal mg/dL (Normal) UA - PROTEIN 100 mg/dL (Normal) UA - PH 6 (Abnormal) UA - BLOOD Negative (Normal) UA - SPECIFIC GRAVITY 1.000 (Normal) UA - KETONES Negative mg/dL (Normal) UA - BILIRUBIN Negative (Normal) UA - GLUCOSE Negative (Normal) 42-Acm-990138:31 Protein+Creatinine Ratio,Urine Comments: [facility] [address] [place], [address] PROT:CRE RATIO 1411 {mg/g_CRE} (Abnormal) Range: 0-200 PROTEIN,UR.RAN. 63.9 mg/dL (Abnormal) UR CREAT 45.30 mg/dL (Normal) 75-Qhl-664863:31 Renal Profile Comments: [facility] [address] [place], [place], [address] CO2 24.0 mmol/L (Normal) Range: 21.0-32.0 CL [...] A.D.A. criteria.Please note revised GLUCOSE reference range gjikemqgp46/02/2018. 32-Bfn-882225:43 IGA/IGD/IGG/IGM-EACH (79583) Comments: PATIENT NOT FASTINGPERFORMED BY: CB [facility] Hsfmxz6971 [facility] [id number] BY: [facility] [address] [id number] Immunoglobulin E, Total 15 {IU/mL} (Normal) Range: 0-100 Immunoglobulin M, Qn, Serum 84 mg/dL (Normal) Range: 26-217 Immunoglobulin A, Qn, Serum 265 mg/dL (Normal) Range: 87-352 Immunoglobulin G, Qn, Serum 1461 mg/dL (Normal) Range: 700-1600 09-Oli-276057:40 Urinalysis, Complete Comments: Order Date: 03/25/18COLOR OF URINE MAY AFFECT DIPSTICK RESULTS.How was Urine Obtained? VALUE ENGINEER TO SPECIFYF[facility] [address] [place], [place], [address] AMORPHOUS 2+ (Normal) MUCUS, URINE 0 SEEN [...] CLARITY Sl. Cloudy (Normal) COLOR Mitra (Normal) 49-Ivr-090853:45 CBC W/Diff, Automated Comments: [facility] [address] [place], [address] RED CELL MORPH NORM C+C {NORMAL} (Normal) [...] 4.2-5.4 WBC 5.2 K/mm3 (Normal) Range: 4.4-11.0 88-Rui-974875:45 Comprehensive Metabolic Profil Comments: [facility] [address] [place], [address] GAP 13 (Normal) Range: 5-15 CO2 20.0 [...] A.D.A. criteria.Please note revised GLUCOSE reference range oupdmhaod72/02/2018. 80-Xwh-964274:45 Lactic Acid Comments: Yes/No query for Sepsis Lactate Rule [facility] [address] [place], [place], [address] LACTIC ACID 4.8 mmol/L (Abnormal) Range: 0.4-2.0 Comments: Critical Result(s) Called at: 13:34:37 03/25/2018 by:Morenita Zamora 52-Jlj-030905:45 Partial Thromboplast Time Comments: [facility] [address] [place], [place], [address] PTT 37.8 s (Abnormal) Range: 24.1-36.2 46-Oks-677296:45 Prothrombin Time w/INR Comments: [facility] [address] [place], [place], [address] INR 1.1 (Normal) PROTIME 14.6 s (Normal) Range: 11.7-14.9 43-Xtz-510865:45 Troponin-I Comments: [facility] [address] [place], [place], [address] TROPONIN-I < 0.015 ng/mL (Normal) Comments: TROPONIN-I EXPECTED VALUES <0.045 Negative 0.045 - 0.590 Consistent with Cardiac Damage > OR = 0.600 Critical Value Not every elevated troponin is indicative of NH. T hesevalues should be used with clinical judgement in examiningthe patient's clinical picture for diagnosis. To establisha diagnosis of NH versus myocardial injury, there must be ademonstrated rise and/ or fall in the troponin values, inaddition to ischemic symptoms, EKG changes, new regionalwall motion abnormality, and/or angiographical evidence. PLEASE NOTE: REFERENCE RANGES EDITED 01/10/1821-Mar-201827-Ail-811830:12 Microscopic Examination Comments: PATIENT WAS FASTINGPERFORMED BY: [facility] [id number] [facility] [id number] Bacteria Moderate (Abnormal) Mucus Threads Present (Normal) Epithelial Cells (non renal) 0-10 {/hpf} (Normal) Range: 0 - 10 RBC 3-10 {/hpf} (Abnormal) Range: 0 - 2 WBC >30 {/hpf} (Abnormal) Range: 0 - 5 Comments: Clumps of leukocytes present. 27-Fmf-621514:57 HgA1C , Office (13625) HgA1C , Office 9.8 % (Abnormal) Range: 4.6 - 7.1 83-Ejm-605299:56 Microalb:Creat Ratio,Random UR Comments: [facility] [address] [place], [address] MALB:CREAT 3256.8 {mg/g_CRE} (Abnormal) MICROALBUMIN,UR 2410.0 mg/L (Normal) UR CREAT 74.00 mg/dL (Normal) 77-Qlm-738780:12 CALCIFIDIOL (56125) VIT D 25 Comments: PATIENT WAS FASTINGPERFORMED BY: [facility] [address] [place] [id number] Vitamin D, 25-Hydroxy 18.2 ng/mL (Abnormal) Range: 30.0-100.0 Comments: Vitamin D deficiency has been defined by the [place] of[place] and an Endocrine Society practice guideline as alevel of serum 25-OH vitamin D less than 20 ng/mL (1,2).The Endocrine Society went on to further define vitamin Dinsufficiency as a level between 21 and 29 ng/mL (2).1. IOM ([place] [employer]). 2010. Dietary reference intakes for calcium and D. [place]: The National Academies Press.2. Swathi MF, Alexandra NC, Judy OLMEDO, et al. Evaluation, treatment, and prevention of vitamin D deficiency: an Endocrine Society clinical practice guideline. JCEM. 2010; 96(7):1911-30. 68-Zgv-480762:12 TSH (04668) Comments: PATIENT WAS FASTINGPERFORMED BY: CB [facility] [address] [place] [id number] TSH 3.550 {uIU/mL} (Normal) Range: 0.450-4.500 92-Gfh-092682:12 URINALYSIS, W/ MICRO (10308) Comments: PATIENT WAS FASTINGPERFORMED BY: CB [facility] [address] [place] [id number] Microscopic Examination See below: (Normal) Comments: Microscopic was indicated and was performed. Nitrite, Urine Positive (Abnormal) Urobilinogen,Semi-Qn 0.2 mg/dL (Normal) Range: 0.2-1.0 Bilirubin Negative (Normal) Occult Blood Trace (Abnormal) Ketones Negative (Normal) Glucose Negative (Normal) Protein 3+ (Abnormal) WBC Esterase 2+ (Abnormal) Appearance Cloudy (Abnormal) Urine-Color Yellow (Normal) pH 6.0 (Normal) Range: 5.0-7.5 Specific Titus 1.021 (Normal) Range: 1.005-1.030 70-Fng-558827:12 MICROALBUMIN: CREATININE RATIO Comments: PATIENT WAS FASTINGPERFORMED BY: [employer], [employer].[facility] CenterCgtpnh3360 [facility] [id number] (04120) AND (07946) Alb/Creat Ratio 5216.8 {mg/g_creat} (Abnormal) Range: 0.0-30.0 Albumin, Urine 4387.3 ug/mL (Normal) Comments: Results confirmed ondilution. Creatinine, Urine 84.1 mg/dL (Normal) 29-Cxm-422530:12 METABOLIC PANEL, COMPREHENSIVE Comments: PATIENT WAS FASTINGPERFORMED BY: YOOSEClara Maass Medical CenterAaifnk2824 [facility] [id number] (69016) ALT (SGPT) 3 [iU]/L (Normal) Range: 0-32 [...] 8-27 Glucose 222 mg/dL (Abnormal) Range: 65-99 76-Sro-137196:12 LIPID PANEL (22822) Comments: PATIENT WAS FASTINGPERFORMED BY: Primedic70 UGEFormerly [facility] [id number] VLDL Cholesterol Luis VLDLCH mg/dL (Normal) Range: 5-40 Comments: The calculation for the VLDL cholesterol is not valid whentriglyceride level is >400 mg/dL.Triglyceride result indicated is too high for an accurate LDLcholesterol estimation. HDL Cholesterol 29 mg/dL (Abnormal) Triglycerides 861 mg/dL (Abnormal) Range: 0-149 Cholesterol, Total 182 mg/dL (Normal) Range: 100-199 01-Zen-160961:12 CBC W/AUTO DIFF WBC (99572) Comments: PATIENT WAS FASTINGPERFORMED BY: Manipal Acunova6370 [address] [facility] [id number] Immature Grans (Abs) 0.0 {x10E3/uL} (Normal) Range: [...] (Normal) Range: 3.4-10.8 :14 HgA1C , Office (71016) HgA1C , Office 8.7 % (Abnormal) Range: 4.6 - 7.1 :14 Blood Glucose , Office (69176) Blood Glucose , Office 225 (Normal) 08-Ckk-239204:06 Bedside Glucose Comments: [facility] LaboratoryPoint of Vtvg2617 [facility]. [place], [place] [address] BEDSIDE GLU 144 mg/dL (Abnormal) Range: 70-110 Comments: MANAGEMENT OF PATIENT CARE PER NURSING PROTOCOL 4-Gqn-219283:49 Basic Metabolic Profile (BMP) Comments: [facility] Kwinrltztt0646 [facility]. [place], [place], [address] GAP 6 (Normal) Range: 5-15 CO2 29.0 [...] A.D.A. criteria.Please note revised GLUCOSE reference range lsvybrwhx07/02/2018. 2-Uha-677128:49 CBC-Complete Blood Cnt No Diff Comments: [facility] [address] [place], [address] MPV 10.3 fL (Normal) Range: [...] 4.2-5.4 WBC 8.0 K/mm3 (Normal) Range: 4.4-11.0 2-Jib-380951:49 Prothrombin Time w/INR Comments: [facility] [address] [place], [place], [id number] INR 1.0 (Normal) PROTIME 13.3 s (Normal) Range: 11.7-14.9 6-Yjz-488634:49 Urinalysis, Complete Comments: How was Urine Obtained? VALUE ENGINEER TO SPECIFYWAvita Health [facility] [address] [place], [address] MUCUS, URINE 0 SEEN {/hpf} [...] CLARITY Sl. Cloudy (Normal) COLOR Yellow (Normal) 3-Jbt-361122:44 Miscellaneous Lab Procedure Comments: Comments: LACOSAMIDE [id number] RED/RTTest(s) Ordered: LACOSAMIDE [id number] [facility] Kxfzeckwdj2472 [facility] [place], [place], [address] [facility] Comments: TEST RESULT LIMITSLacosamide Lacosamide 13.0 High ug/mL 5.0 - 10.0 Limit of Detection 0.5 Mean plasma concentrations f LAB (Normal) ollowing maintenance dose 200 mg/day 4.99 +/- 2.51 ug/mL 400 mg/day 9.35 +/- 4.22 ug/mL 600 mg/day 12.46 +/- 5.60 ug/mLPle TEST ase Note:This test was developed and its performance characteristicsdetermined by [facility]. It has not been cleared or approvedby the Food and Drug Administration. TESTING PERFORMED AT [facility]. ORIGINAL REPORT ON FILE IN LAB CONTAINS ADDITIONAL TEST SITE INFORMATION. 14-Ebm-518855:21 URINE FAVIAN CULTURE-KEERTHI COL Comments: PATIENT NOT FASTINGPERFORMED BY: RENARD [facility] Nifdtw9127 [place] [id number] Information: SRC:UC COUNT (21685) Result 1 MTHREE (Normal) Comments: More than 3 organisms recovered, none predominant. Please submitanother culture if clinically indicated.Greater than 100,000 colony forming units per mL Urine Final report (Normal) Culture,Comprehensive 02-Hba-143403:12 Urinalysis, Office (76075) UA - LEUKOCYTE ESTERASE Negative (Normal) UA - NITRITE Negative (Normal) URINE UROBILINGN KEERTHI TIMED 2 mg/dL (Normal) UA - PROTEIN 100 mg/dL (Normal) UA - PH 7 (Normal) UA - BLOOD Negative (Normal) UA - SPECIFIC GRAVITY 1.010 (Normal) UA - KETONES Negative mg/dL (Normal) UA - BILIRUBIN Negative (Normal) UA - GLUCOSE 500 (Abnormal) 58-Vsw-807609:53 Microalb:Creat Ratio,Random UR Comments: [facility] Milvaxmgym9267 [facility] [address]. [place], [place], [address] MALB:CREAT 331.9 {mg/g_CRE} (Abnormal) MICROALBUMIN,UR 235.0 mg/L (Normal) UR CREAT 70.80 mg/dL (Normal) 24-Ljg-642162:45 Urinalysis, Complete Comments: Order Date: 10/13/17How was Urine Obtained? CLEAN CATCHWAvita Health [facility] Xdjgwmoyqk4388 [facility] [address]. [place], [place], [address] MUCUS, URINE RARE {/hpf} (Normal) BACTERIA RARE [...] CLARITY Sl. Cloudy (Normal) COLOR Yellow (Normal) 99-Gev-049599:55 Albumin, Serum Comments: DR ALVAREZ ADDED A RENAL PANELFulton County Health Center Rwhousqueb1244 [facility]. [place], [place], [address] ALB 3.7 g/dL (Normal) Range: 3.2-5.0 71-Hju-509871:55 Basic Metabolic Profile (BMP) Comments: DR ALVAREZ ADDED A RENAL PANELFulton County Health Center Xfcqgqnszt2833 [facility] [place], [place], [address] GAP 12 (Normal) Range: 5-15 CO2 20.0 [...] A.D.A. criteria.Please note revised GLUCOSE reference range /02/2018. 41-Mxo-566761:55 CBC W/Diff, Automated Comments: [facility] [address] [place], [address] Absolute Lymph 0.27 {X10_3/ul} (Abnormal) [...] 4.2-5.4 WBC 8.9 K/mm3 (Normal) Range: 4.4-11.0 23-Zet-072416:55 Lactic Acid Comments: Yes/No query for Sepsis Lactate Rule YFulton County Health Center [address]qgfitp[address] [place], [address] LACTIC ACID 2.8 mmol/L (Abnormal) Range: 0.4-2.0 Comments: Critical Result(s) Called at: 13:50:00 10/13/2017 by:Morenita Roberts to [facility] 35-Plc-767838:55 Phosphorus Comments: DR ALVAREZ ADDED A RENAL PANELWAvita Health [facility] Dfitfvhfrz[address] [place], [address] PHOS 2.2 mg/dL (Abnormal) Range: 2.5-4.9 3-Muw-129918:55 Basic Metabolic Profile (BMP) Comments: 'TROP' Serial specimen #1, #2, #3, or #4: 1WAvita [facility] Hjtqqluncx0409 [place], [address] GAP 11 (Normal) Range: 5-15 [...] 126 mg/dLsuggests DIABETES MELLITUS per A.D.A. criteria. 9-Zrt-196265:55 CBC W/Diff, Automated Comments: [facility] Itaivauiau[address] [place], [address] Absolute Lymph 3.74 {X10_3/ul} (Normal) [...] 4.2-5.4 WBC 7.8 K/mm3 (Normal) Range: 4.4-11.0 0-Jue-758697:55 Troponin-I Comments: 'TROP' Serial specimen #1, #2, #3, or #4: [address] [place] [address] Jpcrxbaspx6152 [facility] [place], [place], [address] TROPONIN-I 0.03 ng/mL (Normal) Comments: TROPONIN-I EXPECTED VALUES <0.05 NEGATIVE 0.06 - 0.59 AT RISK OF NH > OR = 0.60 SUGGEST NH 07-Oct-20179:39 URINE FAVIAN CULTURE-KEERTHI COL Comments: PATIENT NOT FASTINGPERFORMED BY: [facility] Jgugvo7584 [facility] [id number] Information: SRC:UC COUNT (54535) Antimicrobial MIHEAD (Normal) Comments: S = Susceptible; [...] mL (Abnormal) Urine Final report Culture,Comprehensive (Abnormal) 5-Nma-607748:28 Urinalysis, Office (64533) UA - LEUKOCYTE ESTERASE Trace (Normal) UA - NITRITE Negative (Normal) URINE UROBILINGN KEERTHI TIMED Normal mg/dL (Normal) UA - PROTEIN Negative mg/dL (Normal) UA - PH 6 (Abnormal) UA - BLOOD Hemolyzed Trace (Normal) UA - SPECIFIC GRAVITY 1.005 (Normal) UA - KETONES Negative mg/dL (Normal) UA - BILIRUBIN Negative (Normal) UA - GLUCOSE 500 (Abnormal) 30-Vfi-58608:50 HgA1C , Office (36600) HgA1C , Office 7.5 % (Abnormal) Range: 4.6 - 7.1 35-Oya-92229:50 Blood Glucose , Office (81234) Blood Glucose , Office 196 (Normal) 41-Vnn-667320:34 Free T3 Comments: [facility] [address] [place], [place], [address] ; appt 09/21 FREE T3 2.0 pg/mL (Abnormal) Range: 2.18-3.98 02-Kix-118503:34 T4 Free Direct Comments: [facility] P[address] [place] [address], [id number] T4 FREE DIRECT 1.06 ng/dL (Normal) Range: 0.76-1.46 56-Fbz-661213:34 Thyroid Stim Hormone (TSH) Comments: [facility] [address] [place], [address] TSH 0.86 {uIU/mL} (Normal) Range: 0.358-3.74 4-Ahe-698855:55 Basic Metabolic Profile (BMP) Comments: [facility] X[address] [place], [place], [address] ; jesus alberto fernandes GAP 10 (Normal) [...] <126 mg/dLsuggests IMPAIRED HOMEOSTASIS per A.D.A. criteria. 1-Qao-099159:55 CBC W/Diff, Automated Comments: [facility] Tehobfnuty67[address] [place], [place], [address] Absolute Lymph 3.21 {X10_3/ul} (Normal) Range: 0.83-4.51 [...] 4.2-5.4 WBC 8.0 K/mm3 (Normal) Range: 4.4-11.0 35-Odn-357340:28 Microscopic Examination Comments: PATIENT NOT FASTINGPERFORMED BY: BEW GlobalD[facility] [id number] Bacteria Few (Normal) Mucus Threads Present (Normal) Epithelial Cells (non renal) 0-10 {/hpf} (Normal) Range: 0 - 10 RBC 11-30 {/hpf} (Abnormal) Range: 0 - 2 WBC 11-30 {/hpf} (Abnormal) Range: 0 - 5 78-Owa-293821:28 MICROALBUMIN: CREATININE RATIO Comments: PATIENT NOT FASTINGPERFORMED BY: [employer] Huiyuan [facility] [id number] (11484) AND (84919) Microalb/Creat Ratio 3121.4 {mg/g_creat} (Abnormal) Range: 0.0-30.0 Microalbumin, Urine 2728.1 ug/mL (Normal) Comments: Results confirmed ondilution. Creatinine, Urine 87.4 mg/dL (Normal) 77-Iia-502231:28 URINALYSIS (85335) Comments: PATIENT NOT FASTINGPERFORMED BY: [employer] Spacious [facility] [id number] Microscopic Examination See below: (Normal) Comments: Microscopic was indicated and was performed. Nitrite, Urine Negative (Normal) Urobilinogen,Semi-Qn 0.2 mg/dL (Normal) Range: 0.2-1.0 Bilirubin Negative (Normal) Occult Blood 2+ (Abnormal) Ketones Negative (Normal) Glucose Negative (Normal) Protein 3+ (Abnormal) WBC Esterase 1+ (Abnormal) Appearance Clear (Normal) Urine-Color Yellow (Normal) pH 6.5 (Normal) Range: 5.0-7.5 Specific Titus 1.014 (Normal) Range: 1.005-1.030 11-Cvd-416181:33 Urinalysis, Complete Comments: Order Date: 06/20/17Has pt arrived? YHow was Urine Obtained? CLEAN [facility] Tecfwfufij[address] [place], [place], [address] HYALINE CAST 0-5 SEEN {/lpf} (Normal) Range: [...] (Normal) CLARITY Clear (Normal) COLOR Straw (Normal) 54-Qni-109303:42 Basic Metabolic Profile (BMP) Comments: [facility] Ftzquinqsz[address] [place], [place], [address] GAP 14 (Normal) Range: 5-15 CO2 22.0 [...] 126 mg/dLsuggests DIABETES MELLITUS per A.D.A. criteria. 63-Tta-521208:42 CBC W/Diff, Automated Comments: [facility] Trrugivrul[address] [place], [place], [address] Absolute Lymph 2.82 {X10_3/ul} (Normal) Range: 0.83-4.51 [...] (Normal) Range: 4.4-11.0 :18 HgA1C , Office (07995) HgA1C , Office 6.4 % (Normal) Range: 4.6 - 7.1 :18 Blood Glucose , Office (22187) Blood Glucose , Office 173 (Normal) 6-Gzy-644579:20 Urine Culture,Comprehensive Comments: PERFORMED BY: LabCoClara Maass Medical CenterEptcly7901 [facility] [id number] Information: SRC:UR Antimicrobial MIHEAD (Normal) Comments: S [...] mL (Abnormal) Urine Final report Culture,Comprehensive (Abnormal) 08-Glc-845527:14 Basic Metabolic Profile (BMP) Comments: [facility] Ihzwfhmisb79[address] [place], [address] GAP 14 (Normal) Range: 5-15 CO2 20.0 [...] 126 mg/dLsuggests DIABETES MELLITUS per A.D.A. criteria. 9-Kxh-057748:15 URINE FAVIAN CULTURE-IDENTIFICATN Comments: PATIENT NOT FASTINGPERFORMED BY: [facility] Uqweug7934 [facility] [id number] Information: SRC:ARNOLD (00992) Antimicrobial MIHEAD (Normal) Comments: S = Susceptible; [...] mL (Abnormal) Urine Final report Culture,Comprehensive (Abnormal) 5-Nhf-246622:19 Urinalysis, Office (36627) UA - LEUKOCYTE ESTERASE Moderate (Normal) UA - NITRITE Negative (Normal) URINE UROBILINGN KEERTHI TIMED Normal mg/dL (Normal) UA - PROTEIN 300 mg/dL (Normal) UA - PH 6 (Abnormal) UA - BLOOD Hemolyzed Trace (Normal) UA - SPECIFIC GRAVITY 1.025 (Normal) UA - KETONES Negative mg/dL (Normal) UA - BILIRUBIN Negative (Normal) UA - GLUCOSE Negative (Normal) 13-Plr-829525:31 Urinalysis, Office (77566) UA - LEUKOCYTE ESTERASE Negative (Normal) UA - NITRITE Negative (Normal) URINE UROBILINGN KEERTHI TIMED Normal mg/dL (Normal) UA - PROTEIN 300 mg/dL (Normal) UA - PH 6 (Abnormal) UA - BLOOD Negative (Normal) UA - SPECIFIC GRAVITY 1.015 (Normal) UA - KETONES Negative mg/dL (Normal) UA - BILIRUBIN Negative (Normal) UA - GLUCOSE Negative (Normal) 70-Pim-435684:47 URINE FAVIAN CULTURE-IDENTIFICATN Comments: PATIENT NOT FASTINGPERFORMED BY: [facility] Eoppjx3365 [facility] [id number] Information: SRC:ARNOLD (62619) Result 1 BETAGB (Abnormal) Comments: Beta hemolytic [...] (CLSI 2011) Urine Final report (Abnormal) Culture,Comprehensive 75-Qqr-38998:50 Urinalysis, Complete Comments: How was Urine Obtained? CATHETER SPECIMENWAvita Health [facility] Autbcdtowp9869 [address]andraannie [place]rade[place], [place], [address] MUCUS, URINE 0 SEEN {/hpf} (Normal) BACTERIA [...] Straw (Normal) :25 CBC W/Diff, Automated Comments: [facility] Nrtfkscria[address] [place], [address] Absolute Lymph 2.00 {X10_3/ul} (Normal) [...] Serial specimen #1, #2, #3, or #4: 1WAvita Health [facility] Nfvxmnlmhm5423 [place], [address] GAP 7 (Normal) Range: 5-15 [...] A.D.A. criteria. :25 Partial Thromboplast Time Comments: [facility] [address] [place], [address] PTT 54.7 s (Abnormal) Range: 24.1-36.2 :25 Prothrombin Time w/INR Comments: [facility] I[address]ivu[address] [place], [address] INR 1.0 (Normal) PROTIME 13.2 s (Normal) Range: 11.7-14.9 :25 Troponin-I Comments: 'TROP' Serial specimen #1, #2, #3, or #4: 1WAvita [facility] Kxbqftxdbw30[address] [place], [address] TROPONIN-I < 0.02 ng/mL (Normal) Comments: TROPONIN-I EXPECTED VALUES <0.05 NEGATIVE 0.06 - 0.59 AT RISK OF NH > OR = 0.60 SUGGEST NH :23 Bedside Glucose Comments: [facility] LaboratoryPoint of Rhzk[address] [place] [address] BEDSIDE GLU 129 mg/dL (Abnormal) Range: 70-110 Comments: Dr Gemma FelderMANAGEMENT OF PATIENT CARE PER NURSING PROTOCOL :42 Microscopic Examination Comments: PATIENT NOT FASTINGPERFORMED BY: [employer] [facility] [id number] BY: YOOSE[address] [id number] Bacteria Few (Normal) Mucus Threads Present (Normal) Cast Type Hyaline casts (Normal) Casts Present {/lpf} (Abnormal) Epithelial Cells (non renal) 0-10 {/hpf} (Normal) Range: 0 - 10 RBC >30 {/hpf} (Abnormal) Range: 0 - 2 WBC 0-5 {/hpf} (Normal) Range: 0 - 5 :42 CCP ANTIBODY (31392) Comments: PATIENT NOT FASTINGPERFORMED BY: [employer] [facility] [id number] BY: YOOSE[address] [id number] CCP Antibodies IgG/IgA <1 {units} (Normal) Range: 0-19 Comments: Negative <20 Weak positive 20 - 39 Moderate positive 40 - 59 Strong positive >59 :42 RHEUMATOID FACTOR-QUAL Comments: PATIENT NOT FASTINGPERFORMED BY: [employer] [facility] [id number] BY: YOOSE[address] [id number] (36171) RA Latex Turbid. <10.0 {IU/mL} (Normal) Range: 0.0-13.9 :42 C-Reactive Protein (39657) Comments: PATIENT NOT FASTINGPERFORMED BY: [place] 0908470 [facility] [id number] BY: [address] [id number] C-Reactive Protein, Quant 2.5 mg/L (Normal) Range: 0.0-4.9 :42 SED RATE ERYTHROCYTE Comments: PATIENT NOT FASTINGPERFORMED BY: LabTraci [place] 2449570 [facility] [id number] BY: [address] [id number] (80940) Sedimentation Rate-Westergren 44 mm/h (Abnormal) Range: 0-40 :42 URIC ACID BLOOD (42117) Comments: PATIENT NOT FASTINGPERFORMED BY: [employer] D[employer] Delivery SystemTraci [place] 2449570 [facility] [id number] BY: [address] [id number] Uric Acid, Serum 8.5 mg/dL (Abnormal) Range: 2.5-7.1 Comments: Therapeutic target for gout patients: <6.0 :42 Metabolic Panel, Comments: PATIENT NOT FASTINGPERFORMED BY: LabTraci [place] 2449570 [facility] [id number] BY: [address] [id number] Comprehensive (33908) ALT (SGPT) <5 [iU]/L (Normal) Range: 0-32 [...] MICROALBUMIN: CREATININE Comments: PATIENT NOT FASTINGPERFORMED BY: [employer] [facility] [id number] BY: [employer] [address] [id number] RATIO (03114) AND (58712) Microalb/Creat Ratio 1390.9 {mg/g_creat} (Abnormal) Range: 0.0-30.0 Microalbumin, Urine 948.6 ug/mL (Normal) Comments: Results confirmed ondilution. Creatinine, Urine 68.2 mg/dL (Normal) :42 URINALYSIS (57772) Comments: PATIENT NOT FASTINGPERFORMED BY: [employer], [employer].Cl[facility]ass Medical CenterWcqszh1774 [facility] [id number] BY: YOOSE[address] [id number] Microscopic Examination See below: (Normal) Comments: Microscopic was indicated and was performed. Nitrite, Urine Negative (Normal) Urobilinogen,Semi-Qn 0.2 mg/dL (Normal) Range: 0.2-1.0 Bilirubin Negative (Normal) Occult Blood 3+ (Abnormal) Ketones Negative (Normal) Glucose Negative (Normal) Protein 3+ (Abnormal) WBC Esterase Negative (Normal) Appearance Clear (Normal) Urine-Color Yellow (Normal) pH 6.0 (Normal) Range: 5.0-7.5 Specific Titus 1.019 (Normal) Range: 1.005-1.030 39-Kdd-12365:42 CBC, Platelets & Auto Comments: PATIENT NOT FASTINGPERFORMED BY: CB [facility] Upnhei6558 [facility] [id number] BY: BN [facility] [address] [id number] Diff (70254) Immature Grans (Abs) 0.0 {x10E3/uL} (Normal) Range: [...] Range: 3.4-10.8 :32 Rapid Strep Test, Office (17378) Rapid Strep Test, Office Negative (Normal) :28 Microscopic Examination Comments: PATIENT WAS FASTINGPERFORMED BY: YOOSE Zlnkit7706 [address] Road[place]ublin [place] [id number] Bacteria Few (Normal) Mucus Threads Present (Normal) Epithelial Cells (non renal) 0-10 {/hpf} (Normal) Range: 0 - 10 RBC 0-2 {/hpf} (Normal) Range: 0 - 2 WBC 0-5 {/hpf} (Normal) Range: 0 - 5 :28 CALCIFIDIOL (27133) VIT D 25 Comments: PATIENT WAS FASTINGPERFORMED BY: JumpOffCampus6370 [address] [facility] [place] [id number] Vitamin D, 25-Hydroxy 42.0 ng/mL (Normal) Range: 30.0-100.0 Comments: Vitamin D deficiency has been defined by the [place] [facility] and an Endocrine Society practice guideline as alevel of serum 25-OH vitamin D less than 20 ng/mL (1,2).The Endocrine Society went on to further define vitamin Dinsufficiency as a level between 21 and 29 ng/mL (2).1. IOM ([place] of [employer]). 2010. Dietary reference intakes for calcium and D. [place]: The National Academies Press.2. Swathi MF, Alexandra [place], Judy OLMEDO, et al. Evaluation, treatment, and prevention of vitamin D deficiency: an Endocrine Society clinical practice guideline. JCEM. 2010; 96(7):1911-30. :28 TSH (21104) Comments: PATIENT WAS FASTINGPERFORMED BY: [employer] Whlkei[address]67 [address] [facility] [place] [id number] TSH 1.360 {uIU/mL} (Normal) Range: 0.450-4.500 :28 URINALYSIS, W/ MICRO (33525) Comments: PATIENT WAS FASTINGPERFORMED BY: YOOSE Ppdats6895 [facility] [id number] Microscopic Examination See below: (Normal) Comments: Microscopic was indicated and was performed. Nitrite, Urine Negative (Normal) Urobilinogen,Semi-Qn 0.2 mg/dL (Normal) Range: 0.2-1.0 Bilirubin Negative (Normal) Occult Blood Trace (Abnormal) Ketones Negative (Normal) Glucose Negative (Normal) Protein 4+ (Abnormal) WBC Esterase Negative (Normal) Appearance Clear (Normal) Urine-Color Yellow (Normal) pH 6.0 (Normal) Range: 5.0-7.5 Specific Titus 1.019 (Normal) Range: 1.005-1.030 :28 MICROALBUMIN: CREATININE RATIO Comments: PATIENT WAS FASTINGPERFORMED BY: YOOSE Wxwkej1632 [facility] [id number] (13976) AND (33206) Microalb/Creat Ratio 2972.2 {mg/g_creat} (Abnormal) Range: 0.0-30.0 Microalbumin, Urine 2264.8 ug/mL (Normal) Comments: Results confirmed ondilution. Creatinine, Urine 76.2 mg/dL (Normal) :28 METABOLIC PANEL, COMPREHENSIVE Comments: PATIENT WAS FASTINGPERFORMED BY: YOOSE Aqbpev0243 [facility] [id number] (96906) ALT (SGPT) <5 [iU]/L (Normal) Range: 0-32 [...] Glucose, Serum 103 mg/dL (Abnormal) Range: 65-99 1-Prv-189310:28 LIPID PANEL (79931) Comments: PATIENT WAS FASTINGPERFORMED BY: [facility]6370 [facility] [id number] VLDL Cholesterol Luis VLDLCH mg/dL (Normal) Range: [...] Range: 100-199 :28 CBC W/AUTO DIFF WBC (23847) Comments: PATIENT WAS FASTINGPERFORMED BY: [facility] Aucqft9404 [place] [id number] Immature Grans (Abs) 0.0 {x10E3/uL} (Normal) Range: [...] (Normal) Range: 3.4-10.8 :05 HgA1C , Office (20263) HgA1C , Office 6.2 % (Normal) Range: 4.6 - 7.1 :05 Blood Glucose , Office (21099) Blood Glucose , Office 119 (Normal) :09 Basic Metabolic Profile (BMP) Comments: [facility] Ancwytiafm[address] [place], [place], [address] GAP 10 (Normal) Range: 5-15 CO2 26.0 [...] <126 mg/dLsuggests IMPAIRED HOMEOSTASIS per A.D.A. criteria. 63-Xcx-884402:21 Basic Metabolic Profile (BMP) Comments: [facility] Przzjwsafb7636 [facility] [place], [place], [address] GAP 6 (Normal) Range: 5-15 CO2 28.0 [...] (Normal) Range: 4.5-5.6 Comments: Performed at: - Lab[address] [id number] Director: Hernesto Mclean PhD, Phone: [phone] 33-Dbn-510708:21 Protein Electro.Ur-Random Comments: [facility] (refer to report for specific site)refer to report for address and phone number M-SPIKE,U (Normal) Comments: NOT OBSERVED GAMMA GLOB,U 6.5 % (Normal) BETA GLOB,U 9.7 % (Normal) QEJGI-6-UAQT,U 2.6 % (Normal) UCAUG-3-OOOO,U 2.8 % (Normal) ALBUMIN,UR 78.4 % (Normal) PROTEIN,UR 121.4 mg/dL (Abnormal) Range: 0.0-15.0 :21 Protein Electroph, S Comments: [facility] (refer to report for specific site)refer to report for address and phone number NOTE Comment (Normal) Comments: Protein electrophoresis scan will follow via computer,mail, or fur matcher delivery. NOTE: Comment (Normal) Comments: The SPE pattern appears essentially unremarkable. Evidenceof monoclonal protein is not apparent. INTERPRETATION Comment (Normal) Comments: Protein electrophoresis scan will follow via computer,mail, or fur matcher delivery. A/G RATIO 1.0 (Normal) Range: 0.7-2.0 [...] Range: 6.0-8.5 :28 CBC W/Diff, Automated Comments: [facility] [id number] [place], [place], [id number] Absolute Lymph 1.84 {X10_3/ul} (Normal) Range: 0.83-4.51 [...] Range: 4.4-11.0 :28 Comprehensive Metabolic Profil Comments: [facility] [id number] [place], [place], [id number] GAP 10 (Normal) Range: 5-15 CO2 28.0 [...] per A.D.A. criteria. :28 Hemoglobin A1c Comments: [facility] [id number] [place], [address] HGB A1C 6.3 % (Normal) Range: 4.2-6.3 :28 Lipid Profile Comments: [facility] [id number] [place], [address] VLDL Test not performed mg/dL [...] High Risk :28 Microalb:Creat Ratio,Random UR Comments: [facility] [id number] [place], [place], [id number] MALB:CREAT 6612.5 {mg/g_CRE} (Abnormal) MICROALBUMIN,UR 2850.0 mg/L (Normal) UR CREAT 43.10 mg/dL (Normal) :28 Thyroid Stim Hormone (TSH) Comments: [facility] [id number] [place], [address] TSH 2.14 {uIU/mL} (Normal) Range: 0.358-3.74 :28 Urinalysis, Complete Comments: How was Urine Obtained? [facility] [address] [place], [address] MUCUS, URINE 0 SEEN {/hpf} [...] (Prothrobim Time) Comments: PATIENT NOT FASTINGPERFORMED BY: [place] 0908470 [facility] [id number] Information: [id number],2ND ORDER (12762) Prothrombin Time 14.9 {sec} (Abnormal) Range: 9.1-12.0 INR 1.4 (Abnormal) Range: 0.8-1.2 Comments: Reference interval is for non-anticoagulated patients. . Suggested INR therapeutic range for Vitamin K anta gonist therapy: Standard Dose (moderate intensity therapeutic range): 2.0 - 3.0 Higher intensity therapeutic range 2.5 - 3.5 :59 PT (Prothrobim Time) Comments: PATIENT NOT FASTINGPERFORMED BY: [place] 0908470 [facility] [id number] Information: [id number] (08297) Prothrombin Time 37.7 {sec} (Abnormal) Range: 9.1-12.0 INR 3.4 (Abnormal) Range: 0.8-1.2 Comments: Reference interval is for non-anticoagulated patients. . Suggested INR therapeutic range for Vitamin K anta gonist therapy: Standard Dose (moderate intensity therapeutic range): 2.0 - 3.0 Higher intensity therapeutic range 2.5 - 3.5 :08 HgA1C , Office (87774) HgA1C , Office 6.2 % (Normal) Range: 4.6 - 7.1 :08 Blood Glucose , Office (47893) Blood Glucose , Office 126 (Normal) :42 Microscopic Examination Comments: PATIENT WAS FASTINGPERFORMED BY: [place] 0908470 [facility] [id number] Bacteria Few (Normal) Mucus Threads Present (Normal) Epithelial Cells (non renal) 0-10 {/hpf} (Normal) Range: 0 - 10 RBC 0-2 {/hpf} (Normal) Range: 0 - 2 WBC 0-5 {/hpf} (Normal) Range: 0 - 5 :42 MICROALBUMIN: CREATININE RATIO Comments: PATIENT WAS FASTINGPERFORMED BY: YOOSEClara [facility]ass Medical CenterYfvuik1972 [facility] [id number] (42695) AND (85034) Microalb/Creat Ratio 1877.3 {mg/g_creat} (Abnormal) Range: 0.0-30.0 Microalbumin, Urine 1118.9 ug/mL (Abnormal) Range: 0.0-17.0 Creatinine, Urine 59.6 mg/dL (Normal) Range: 15.0-278.0 :42 URINALYSIS (42712) Comments: PATIENT WAS FASTINGPERFORMED BY: [facility]SEGallup Indian Medical CenterQmvcki2609 [facility] [id number] Microscopic Examination See below: (Normal) Comments: Microscopic was indicated and was performed. Nitrite, Urine Negative (Normal) Urobilinogen,Semi-Qn 0.2 mg/dL (Normal) Range: 0.0-1.9 Bilirubin Negative (Normal) Occult Blood Negative (Normal) Ketones Negative (Normal) Glucose Negative (Normal) Protein 2+ (Abnormal) WBC Esterase Negative (Normal) Appearance Clear (Normal) Urine-Color Yellow (Normal) pH 6.0 (Normal) Range: 5.0-7.5 Specific Titus 1.020 (Normal) Range: 1.005-1.030 :42 TSH (96587) Comments: PATIENT WAS FASTINGPERFORMED BY: [facility]OOSEClara [facility]ass Medical CenterEcksga9913 [facility] [id number] TSH 1.590 {uIU/mL} (Normal) Range: 0.450-4.500 :42 CBC, Platelets & Auto Comments: PATIENT WAS FASTINGPERFORMED BY: [facility] [id number] Information: [id number] Diff (43661) Immature Grans (Abs) 0.0 {x10E3/uL} (Normal) Range: [...] 3.77-5.28 WBC 5.4 {x10E3/uL} (Normal) Range: 3.4-10.8 98-Ouv-867686:42 Metabolic Panel, Comprehensive Comments: PATIENT WAS FASTINGPERFORMED BY: [facility] [id number] (73874) ALT (SGPT) 3 [iU]/L (Normal) Range: 0-32 [...] Glucose, Serum 94 mg/dL (Normal) Range: 65-99 62-Dfr-125448:42 Lipid Panel (21721) Comments: PATIENT WAS FASTINGPERFORMED BY: Primedic70 [facility] [id number] LDL/HDL Ratio 0.7 {ratio_units} (Normal) Range: 0.0-3.2 LDL Cholesterol Calc 25 mg/dL (Normal) Range: 0-99 VLDL Cholesterol Luis 77 mg/dL (Abnormal) Range: 5-40 HDL Cholesterol 36 mg/dL (Abnormal) Comments: According to ATP-III Guidelines, HDL-C >59 mg/dL is considered anegative risk factor for CHD. Triglycerides 387 mg/dL (Abnormal) Range: 0-149 Cholesterol, Total 138 mg/dL (Normal) Range: 100-199 47-Rng-508715:42 CALCIFEDIOL (72171) Comments: PATIENT WAS FASTINGPERFORMED BY: [facility]W [facility] [id number] Vitamin D, 25-Hydroxy 34.5 ng/mL (Normal) Range: 30.0-100.0 Comments: Vitamin D deficiency has been defined by the [place] of[place]icine and an Endocrine Society practice guideline as alevel of serum 25-OH vitamin D less than 20 ng/mL (1,2).The Endocrine Society went on to further define vitamin Dinsufficiency as a level between 21 and 29 ng/mL (2).1. IOM ([place] of Medicine). 2010. Dietary reference intakes for calcium and D. [place]: The National Academies Press.2. Swathi MF, Alexandra MCGILL, Judy OLMEDO, et al. Evaluation, treatment, and prevention of vitamin D deficiency: an Endocrine Society clinical practice guideline. JCEM. 2010; 96(7):1911-30. 04-Npd-342325:08 PT (Prothrobim Time) Comments: PATIENT NOT FASTINGPERFORMED BY: [facility] [facility] Psbkcp4079 [address] DealerTrackAtrium Health Wake Forest Baptist Medical Centerin [place] [id number] Information: [id number] (77066) Prothrombin Time 19.4 {sec} (Abnormal) Range: 9.1-12.0 INR 1.9 (Abnormal) Range: 0.8-1.2 Comments: Reference interval is for non-anticoagulated patients. . Suggested INR therapeutic range for Vitamin K anta gonist therapy: Standard Dose (moderate intensity therapeutic range): 2.0 - 3.0 Higher intensity therapeutic range 2.5 - 3.5 02-Vte-871993:19 Microscopic Examination Comments: PATIENT NOT FASTINGPERFORMED BY: [facility] Lhrnrk6648 [address] DealerTrackblin [place] [id number] Bacteria Few (Normal) Mucus Threads Present (Normal) Epithelial Cells (non renal) 0-10 {/hpf} (Normal) Range: 0 - 10 RBC >30 {/hpf} (Abnormal) Range: 0 - 3 WBC 0-5 {/hpf} (Normal) Range: 0 - 5 47-Rze-252538:26 TSH (38006) Comments: PATIENT NOT FASTINGPERFORMED BY: [facility] Otyzyl5250 [address] DealerTrackDublin [place] [id number] TSH 1.050 {uIU/mL} (Normal) Range: 0.450-4.500 77-Pwk-365611:26 URINALYSIS, W/ MICRO (15425) Comments: PATIENT NOT FASTINGPERFORMED BY: [facility] Pjsovs6536 Granados RoadDublin [place] [id number] Microscopic Examination See below: (Normal) Nitrite, Urine Negative (Normal) Urobilinogen,Semi-Qn 0.2 mg/dL (Normal) Range: 0.0-1.9 Bilirubin Negative (Normal) Occult Blood 3+ (Abnormal) Ketones Negative (Normal) Glucose Negative (Normal) Protein 1+ (Abnormal) WBC Esterase Negative (Normal) Appearance Clear (Normal) Urine-Color Yellow (Normal) pH 5.5 (Normal) Range: 5.0-7.5 Specific Titus 1.018 (Normal) Range: 1.005-1.030 18-Pcd-081185:26 MICROALBUMIN: CREATININE RATIO Comments: PATIENT NOT FASTINGPERFORMED BY: [employer] Aahcis6138 [address] [facility] CenterSanta Rosa ConsultingFormerly [facility] [id number] (38015) AND (81416) Microalb/Creat Ratio 524.7 {mg/g_creat} (Abnormal) Range: 0.0-30.0 Microalbumin, Urine 342.1 ug/mL (Abnormal) Range: 0.0-17.0 Creatinine, Urine 65.2 mg/dL (Normal) Range: 15.0-278.0 16-Hrv-097299:26 METABOLIC PANEL, COMPREHENSIVE Comments: PATIENT NOT FASTINGPERFORMED BY: [employer] Rfvpxa7422 [address] [facility] [id number] (84060) ALT (SGPT) <5 [iU]/L (Normal) Range: 0-32 [...] Glucose, Serum 74 mg/dL (Normal) Range: 65-99 85-Wml-432839:26 LIPID PANEL (28373) Comments: PATIENT NOT FASTINGPERFORMED BY: YOOSEClara Maass Medical CenterRpxtaa6401 [facility] [id number] LDL/HDL Ratio 1.1 {ratio_units} (Normal) Range: 0.0-3.2 LDL Cholesterol Calc 46 mg/dL (Normal) Range: 0-99 VLDL Cholesterol Luis 72 mg/dL (Abnormal) Range: 5-40 HDL Cholesterol 41 mg/dL (Normal) Comments: According to ATP-III Guidelines, HDL-C >59 mg/dL is considered anegative risk factor for CHD. Triglycerides 362 mg/dL (Abnormal) Range: 0-149 Cholesterol, Total 159 mg/dL (Normal) Range: 100-199 95-Irn-041909:26 CBC WITH MANUAL DIFF Comments: PATIENT NOT FASTINGPERFORMED BY: YOOSEClara Maass Medical CenterWmngxz2105 [facility] [id number] Information: [id number] (45275) Immature Grans (Abs) 0.0 {x10E3/uL} (Normal) Range: [...] 3.77-5.28 WBC 4.3 {x10E3/uL} (Normal) Range: 3.4-10.8 54-Mkv-651507:26 Vitamin D Hydroxy (86452) Comments: PATIENT NOT FASTINGPERFORMED BY: LabCoClara Maass Medical CenterUfyuqx7856 [facility] [id number] Vitamin D, 25-Hydroxy 37.9 ng/mL (Normal) Range: 30.0-100.0 Comments: Vitamin D deficiency has been defined by the [place] [facility] and an Endocrine Society practice guideline as alevel of serum 25-OH vitamin D less than 20 ng/mL (1,2).The Endocrine Society went on to further define vitamin Dinsufficiency as a level between 21 and 29 ng/mL (2).1. IOM ([place] of Medicine). 2010. Dietary reference intakes for calcium and D. [place]: The National Academies Press.2. Swathi MF, Alexandra MCGILL, Judy OLMEDO, et al. Evaluation, treatment, and prevention of vitamin D deficiency: an Endocrine Society clinical practice guideline. JCEM. 2010; 96(7):1911-30. 20-Rvy-98015:01 HgA1C , Office (24040) HgA1C , Office 5.9 % (Normal) Range: 4.6 - 7.1 :01 Blood Glucose , Office (84245) Blood Glucose , Office 92 (Normal) 12-Xoq-526178:07 HgA1C , Office (27623) HgA1C , Office 5.6 % (Normal) Range: 4.6 - 7.1 :07 Blood Glucose , Office (44213) Blood Glucose , Office 79 (Normal) :41 Vitamin D Hydroxy (58038) Comments: PATIENT WAS FASTINGPERFORMED BY: YOOSEClara [facility]ass Medical CenterNpdflr0480 [facility] [id number] Vitamin D, 25-Hydroxy 50.7 ng/mL (Normal) Range: 30.0-100.0 Comments: Vitamin D deficiency has been defined by the [place] of[place]icine and an Endocrine Society practice guideline as alevel of serum 25-OH vitamin D less than 20 ng/mL (1,2).The Endocrine Society went on to further define vitamin Dinsufficiency as a level between 21 and 29 ng/mL (2).1. IOM ([place] of Medicine). 2010. Dietary reference intakes for calcium and D. [place]: The National Academies Press.2. Swathi MF, Alexandra [place], Judy OLMEDO, et al. Evaluation, treatment, and prevention of vitamin D deficiency: an Endocrine Society clinical practice guideline. JCEM. 2010; 96(7):1911-30. :41 LIPID PANEL (24673) Comments: PATIENT WAS FASTINGPERFORMED BY: LabM[facility]6370 [facility] [id number] Information: [id number] LDL Cholesterol Calc 81 mg/dL (Normal) Range: 0-99 LDL/HDL Ratio 1.9 {ratio_units} (Normal) Range: 0.0-3.2 HDL Cholesterol 42 mg/dL (Normal) Comments: According to ATP-III Guidelines, HDL-C >59 mg/dL is considered anegative risk factor for CHD. Triglycerides 210 mg/dL (Abnormal) Range: 0-149 VLDL Cholesterol Luis 42 mg/dL (Abnormal) Range: 5-40 Cholesterol, Total 165 mg/dL (Normal) Range: 100-199 53-Plj-064285:47 BILAT SCRN DIGITAL & CAD Radiology Report [...] Kebede M.D.July 29, 2012 at 12:51:04 PM [id number] Signed GP/GP If you are the referring physician and would like to consult andry dupree theradiologist who provided this interpretation, please contact Dana Lopez at [phone]. If this radiologist is unavailable, youwill be directed to another radiologist to assist. If yo u are a patient with a question regarding this report, pleasecontactyour referring physician directly. Professional Interpretation Provided By: [employer], Phone , These d ocuments contain legally [...] 07/29/12 1256 Sign by: Paresh Kebede MD 98-Lvw-203846:38 HgA1C , Office (72228) HgA1C , Office 5.7 % (Normal) Range: 4.6 - 7.1 39-Fid-919573:38 Blood Glucose , Office (27221) Blood Glucose , Office 91 (Normal) 53-Nld-338428:06 LIPID PANEL (20957) Comments: PATIENT WAS FASTINGPERFORMED BY: YOOSEClara [facility]ass Medical CenterYrnwcs2371 [facility] [id number] Information: [id number] LDL/HDL Ratio 1.5 {ratio_units} (Normal) Range: 0.0-3.2 [...] (Prothrobim Time) Comments: PATIENT NOT FASTINGPERFORMED BY: LabCoClara Maass Medical CenterIqeusf6895 [facility] [id number] Information: [id number],2ND ORDER NO DRAW F EE (52224) Prothrombin Time 21.7 {sec} (Abnormal) Range: 9.1-12.0 INR 2.1 (Abnormal) Range: 0.8-1.2 Comments: Reference interval is for non-anticoagulated patients. . Suggested INR therapeutic range for Vitamin K anta gonist therapy: Standard Dose (moderate intensity therapeutic range): 2.0 - 3.0 Higher intensity therapeutic range 2.5 - 3.5 83-Ltn-077397:06 PT (Prothrobim Time) Comments: PATIENT NOT FASTINGPERFORMED BY: RENARD [facility] Tihoou[address] [place] [place] [id number] Information: [id number],2ND ORDER NO DRAW F EE (18308) Prothrombin Time 34.8 {sec} (Abnormal) Range: 9.1-12.0 INR 3.4 (Abnormal) Range: 0.8-1.2 Comments: Reference interval is for non-anticoagulated patients. . Suggested INR therapeutic range for Vitamin K anta gonist therapy: Standard Dose (moderate intensity therapeutic range): 2.0 - 3.0 Higher intensity therapeutic range 2.5 - 3.5 :51 Urinalysis, Office (11588) UA - BILIRUBIN Negative (Normal) UA - [...] (Abnormal) Range: 11.9-14.4 :01 HgA1C , Office (68361) HgA1C , Office 6.0 % (Normal) Range: 4.6 - 7.1 :01 Blood Glucose , Office (80914) Blood Glucose , Office 90 (Normal) :14 [...] D deficiency has been defined by the [place] of[place]icine and an Endocrine Society practice guideline as alevel of serum 25-OH vitamin D less than 20 ng/mL (1,2).The Endocrine Society went on to further define vitamin Dinsufficiency as a level between 21 and 29 ng/mL (2).1. IOM ([place] of Medicine). 2010. Dietary reference intakes for calcium and D. [place]: The National Academies Press.2. Swathi MF, Alexandra [place], Judy OLMEDO, et al. Evaluation, treatment, and prevention of vitamin D deficiency: an Endocrine Society clinical practice guideline. JCEM. 2010; 96(7): 1911-30.Performed at: [employer] [id number] Director: Gloria Patton MD, Phone: [phone] 48-Lqa-146277:13 PROT.[id number] NOTE Comment (Normal) Comments: Protein electrophoresis scan will follow via computer,mail, or fur matcher delivery.Performed at: [facility] [address] [place] [address] [id number] Director: Gloria Patton MD, Phone: [phone] M-SPIKE,U SeeNote % (Normal) Comments: Result: Not Observed GAMMA GLOB,U 5.6 % (Normal) BETA GLOB,U 8.0 % (Normal) EPDIB-6-MSQA,U 2.8 % (Normal) TGICB-4-AFWI,U 1.4 % (Normal) ALBUMIN,UR 82.2 % (Normal) PROTEIN,UR 91.6 mg/dL (Abnormal) Range: 0.0-15.0 :1 PTH,Intact 19 pg/mL (Normal) Range: 14-72 3 :13 SPE [id number] INTERPRETATION Comment (Normal) Comments: The SPE pattern reflects a polyclonal increase in gammaglobulin due to numerous clones of plasma cells producingheterogeneous antibody in response to some form ofantigenic stimulus. Hypergammaglob-ulin emia is found in awide variety of infectious, non-infectious, and autoimmunedisease states. Evidence of monoclonal protein is notapparent.Protein electrophoresis scan will follow via computer,mail, or fur matcher delivery. A/G RATIO 1.0 (Normal) Range: 0.7-2.0 [...] 4.2-5.4 WBC 4.3 K/mm3 (Abnormal) Range: 4.4-11.0 4-Tgx-135284:06 COMP METABOLIC GAP 7 (Normal) Range: 5-15 [...] 7-18 GLU 88 mg/dL (Normal) Range: 70-110 6-Jog-058100:06 COMPLETE UA Comments: CRITICAL VALUE REPEATED AND VERIFIED. CALLED TO [place]09/07/11 1153 AARON BHATIA.RESULTS READ BACK BY ELIZABETH [...] NEGATIVE CLARITY CLEAR (Normal) COLOR YELLOW (Normal) 7-Bxn-052316:06 LIPID VLDL 59 mg/dL (Abnormal) Range: 5-40 [...] 200-240 mg/dL Borderline >240 mg/dL High Risk 4-Frr-032741:06 MICROALB:CRE UR MALB:CREAT 947.9 {mg/g_CRE} (Abnormal) MICROALBUMIN,UR 583.0 mg/L (Normal) UR CREAT 61.5 mg/dL (Normal) 3-Xvu-630640:06 TSH 0.75 {uIU/mL} (Normal) Range: 0.358-3.74 0-Mci-336255:06 VIT D,25 92473 27.4 ng/mL (Abnormal) Range: 30.0-100.0 Comments: Vitamin D deficiency has been defined by the [place] of[place]icine and an Endocrine Society practice guideline as alevel of serum 25-OH vitamin D less than 20 ng/mL (1,2).The Endocrine Society went on to further define vitamin Dinsufficiency as a level between 21 and 29 ng/mL (2).1. IOM ([place] of Medicine). 2011. Dietary reference intakes for calcium and D. [place]: The National Academies Press.2. Swathi MF, Alexandra NC, Judy OLMEDO, et al. Evaluation, treatment, and prevention of vitamin D deficiency: an Endocrine Society clinical practice guideline. JCEM. 2010; 96(7): 1911-30.Performed at: [address] [id number] Director: Gloria Patton MD, Phone: [phone] 90-Zws-441627:13 HgA1C , Office (31487) HgA1C , Office 6.0 % (Normal) Range: 4.6 - 7.1 14-Ojl-350812:13 Blood Glucose , Office (57467) Blood Glucose , Office 108 (Normal) 86-Tmh-84864:27 FAVIAN CULTURE-OTHER (87193) Comments: PATIENT NOT FASTINGPERFORMED BY: [address] [id number] Information: SRC:THRT ADD [id number] Result 1 RRF (Normal) Comments: Routine respiratory linette Upper Respiratory Culture Final report (Normal) 77-Thv-50166:50 Rapid Strep Test, Office (71169) Rapid Strep Test, Office Negative (Normal) 66-Hba-641346:39 Microscopic Examination Comments: PATIENT WAS FASTINGPERFORMED BY: [address] [id number] Bacteria Few (Normal) Mucus Threads Present (Normal) Epithelial Cells (non renal) 0-10 {/hpf} (Normal) Range: 0 - 10 RBC None seen {/hpf} (Normal) Range: 0 - 3 WBC 0-5 {/hpf} (Normal) Range: 0 - 5 :35 PT (PROTHROMBIN TIME) Comments: PATIENT NOT FASTINGPERFORMED BY: [facility] [id number] Information: [id number], 2ND ORDER NO DRAW FEE (18154) INR 4.8 (Abnormal) Range: 0.8-1.2 Comments: Client Requested Flag Reference interval is for non- anticoagulated patients. . Suggested INR therapeutic ra nge for Vitamin K antagonist therapy: Standard Dose (moderate intensity therapeutic range): 2.0 - 3.0 Higher intensity therapeutic range 2.5 - 3.5 Prothrombin Time 51.3 {sec} (Abnormal) Range: 8.7-11.5 :36 CALCIFIDIOL (82198) VIT D Comments: PATIENT NOT FASTINGPERFORMED BY: [facility] [id number] Information: [id number],2ND ODER NO DRAW FE E 25 Vitamin D, 25-Hydroxy 29.1 ng/mL (Abnormal) Range: 32.0-100.0 Comments: Recent studies consider the lower limit of 32.0 ng/mL to be athreshold for optimal health.Helder NIEVES. J Nutr. 2004;135(2):317-22. :52 Blood Glucose , Office (58858) Blood Glucose , Office 97 (Normal) :52 HgA1C , Office (56398) HgA1C , Office 5.7 % (Normal) Range: 4.6 - 7.1 :39 TSH (71272) Comments: PATIENT WAS FASTINGPERFORMED BY: [facility] [id number] TSH 0.741 {uIU/mL} (Normal) Range: 0.450-4.500 :39 URINALYSIS, W/ MICRO (59738) Comments: PATIENT WAS FASTINGPERFORMED BY: YOOSEClara [facility]ass Medical CenterZwntrs1766 [facility] [id number] Microscopic Examination See below: (Normal) Bilirubin Negative (Normal) Glucose Negative (Normal) Ketones Negative (Normal) Nitrite, Urine Negative (Normal) Occult Blood Negative (Normal) Protein 1+ (Abnormal) Urobilinogen,Semi-Qn 0.2 mg/dL (Normal) Range: 0.0-1.9 WBC Esterase Negative (Normal) Appearance Clear (Normal) pH 7.0 (Normal) Range: 5.0-7.5 Urine-Color Yellow (Normal) Specific Titus 1.018 (Normal) Range: 1.005-1.030 :39 MICROALBUMIN: CREATININE RATIO Comments: PATIENT WAS FASTINGPERFORMED BY: YOOSE Jptnvl0404 [facility] [id number] (09670) AND (61303) Microalb/Creat Ratio 273.8 {mg/g_creat} (Abnormal) Range: 0.0-30.0 Creatinine, Urine 74.9 mg/dL (Normal) Range: 15.0-278.0 Microalbumin, Urine 205.1 ug/mL (Abnormal) Range: 0.0-17.0 :39 METABOLIC PANEL, COMPREHENSIVE Comments: PATIENT WAS FASTINGPERFORMED BY: YOOSEClara [facility]ass Medical CenterFspcny2506 [facility] [id number] (85109) A/G Ratio 1.3 (Normal) Range: 1.1-2.5 Alkaline [...] Glucose, Serum 88 mg/dL (Normal) Range: 65-99 52-Wfo-348479:39 LIPID PANEL (62117) Comments: PATIENT WAS FASTINGPERFORMED BY: [employer] [facility] [id number] LDL Cholesterol Calc 78 mg/dL (Normal) Range: 0-99 LDL/HDL Ratio 1.9 {ratio_units} (Normal) Range: 0.0-3.2 VLDL Cholesterol Luis 52 mg/dL (Abnormal) Range: 5-40 HDL Cholesterol 41 mg/dL (Normal) Comments: According to ATP-III Guidelines, HDL-C >59 mg/dL is considered anegative risk factor for CHD. Triglycerides 259 mg/dL (Abnormal) Range: 0-149 Cholesterol, Total 171 mg/dL (Normal) Range: 100-199 90-Ibr-447892:39 CBC WITH MANUAL DIFF Comments: PATIENT WAS FASTINGPERFORMED BY: [employer]70 [facility] [id number] Information: [id number] (91836) Immature Grans (Abs) 0.0 {x10E3/uL} Range: 0.0-0.1 [...] Plasma 23.2 pg/mL (Normal) Comments: PERFORMED BY: [facility] Delivery SystemMcl[facility]6370 [facility] [id number] 3:06 Range: 7.2-63.3 Comments: ACTH reference interval for samples collected between 7 and 10 AM. 6-Dqh-877449:06 FSH, Serum Comments: PERFORMED BY: [facility] [id number] FSH 33.2 m[iU]/mL (Normal) Comments: Follicular phase 3.5 - 12.5 Ovulation phase 4.7 - 21.5 Luteal phase 1.7 - 7.7 Postmenopausal 25.8 - 134.8 :06 IGF-1 Comments: PERFORMED BY: [place] 0908470 [facility] [id number] Insulin-Like Growth Factor I 151 ng/mL (Normal) Range: 81-225 :06 Luteinizing Hormone(LH), S Comments: PERFORMED BY: [address] [id number] LH 23.4 m[iU]/mL (Normal) Comments: Follicular phase 2.4 - 12.6 Ovulation phase 14.0 - 95.6 Luteal phase 1.0 - 11.4 Postmenopausal 7.7 - 58.5 :06 Prolactin 3.7 ng/mL (Abnormal) Comments: PERFORMED BY: [facility]6370 [facility] [id number] Range: 4.8-23.3 :06 Prothrombin Time (PT) Comments: PERFORMED BY: [facility] [id number] Prothrombin Time 24.1 {sec} (Abnormal) Range: 8.7-11.5 INR 2.3 (Abnormal) Range: 0.8-1.2 Comments: Reference interval is for non-anticoagulated patients. . Suggested INR therapeutic range for Vitamin K anta gonist therapy: Standard Dose (moderate intensity therapeutic range): 2.0 - 3.0 Higher intensity therapeutic range 2.5 - 3.5 : TSH 0.865 {uIU/mL} Comments: PERFORMED BY: [place] 0908470 [facility] [id number] 06 (Normal) Range: 0.450-4.500 :56 BILAT SCRN [...] and bila teralhipswer e obtained using a Nolio scanner.. COMPARISON:Comparison is made with prior study [...] 10/29/10 1037 Sign by: ___ Paresh Kebede 97-Two-354636:03 FECAL OCCULT HGB ASSAY- tubes sent home (28853) FECAL OCCULT HGB ASSAY, QUAL, 1-3 SIMULTANEOU negative (Normal) 08-Vwf-378898:59 Microscopic Examination Comments: PATIENT NOT FASTINGPERFORMED BY: [facility]6370 [facility]GEFormerly [facility] [id number] Bacteria None seen (Normal) Mucus Threads Present (Normal) Cast Type Hyaline casts (Normal) Casts Present {/lpf} (Abnormal) Epithelial Cells (non renal) 0-10 {/hpf} (Normal) Range: 0 - 10 RBC 0-3 {/hpf} (Normal) Range: 0 - 3 WBC 0-5 {/hpf} (Normal) Range: 0 - 5 50-Zhl-564064:57 Vitamin D Hydroxy Comments: PATIENT NOT FASTINGPERFORMED BY: [facility] [employer]6370 [facility]Former[facility] [id number] Information: [id number] (43430) Vitamin D, 25-Hydroxy 32.6 ng/mL (Normal) Range: 32.0-100.0 Comments: Recent studies consider the lower limit of 32.0 ng/mL to be athreshold for optimal health.Helder NIEVES. J Nutr. 2004;135(2):317-22. 08-Rmk-278257:59 URINALYSIS, W/ MICRO Comments: PATIENT NOT FASTINGPERFORMED BY: [employer] [facility] Ilygjz9101 [facility] [id number] Information: SRC: [id number] (98214) Microscopic Examination See below: (Normal) Nitrite, Urine Negative (Normal) Bilirubin Negative (Normal) Glucose Negative (Normal) Ketones Negative (Normal) Occult Blood Negative (Normal) Protein 1+ (Abnormal) Urobilinogen,Semi-Qn 0.2 mg/dL (Normal) Range: 0.0-1.9 WBC Esterase Negative (Normal) Appearance Clear (Normal) Urine-Color Yellow (Normal) pH 6.5 (Normal) Range: 5.0-7.5 Specific Titus 1.017 (Normal) Range: 1.005-1.030 :59 URINE FAVIAN CULTURE-KEERTHI COL Comments: PATIENT NOT FASTINGPERFORMED BY: [facility] Jlwdmp1665 [facility] [id number] COUNT (48157) Result 1 MUG (Normal) Comments: Mixed urogenital flora10,000-25,000 colony forming units per mL Urine Final report (Normal) Culture,Comprehensive :53 HgA1C , Office (87873) HgA1C , Office 5.5 % (Normal) Range: 4.6 - 7.1 :53 Blood Glucose , Office (69325) Blood Glucose , Office 99 (Normal) :37 [...] (Normal) PROTIME 36.2 s (Abnormal) Range: 9.1-11.7 68-Asm-097147:59 URINE FAVIAN CULTURE-KEERTHI COL Comments: PATIENT NOT FASTINGPERFORMED BY: CB [facility] Drdupj2546 [facility] [id number] Information: SRC:UR [id number] COUNT (82804) Result 1 NG36 (Normal) Comments: No growth in 36 - 48 hours. Urine Culture,Comprehensive Final report (Normal) 99-Pdx-85762:44 Urinalysis, Office (22754) UA - BILIRUBIN Negative (Normal) UA - BLOOD Non Hemolyzed Trace (Normal) UA - GLUCOSE Negative (Normal) UA - KETONES Negative mg/dL (Normal) UA - LEUKOCYTE ESTERASE Small (Normal) UA - NITRITE Negative (Normal) UA - PH 8.0 (Normal) UA - PROTEIN 30 mg/dL (Normal) UA - SPECIFIC GRAVITY 1.015 (Normal) URINE UROBILINGN KEERTHI TIMED Normal mg/dL (Normal) 93-Dhn-44412:00 MRA HEAD WITHOUT CONTRAST Radiology Report See Note (Normal) Comments: CLINICAL:Gait abnormality MRA OF THE BRAIN TECHNIQUE:3-D xils-vn-qxgimo (TOF) imaging was performed COMPARISON:MR of the [...] There is origi n of the right STRIP ROLLER. The left posteriorcommunicatingartery is prominent, of similar caliber to the P1 segment of the leftPCA. Basilar artery is diminutive in caliber, likely on a developmental basisgive n the right STRIP ROLLER and prominence of the left posteriorcommunicating artery. [...] vessel occlusion or hemodynamically significantstenosis. IMPRESSION:Essentially normal [place] without a demonstrated aneurysm orhemodynamically significant st enosis. Diffusely diminutive basilararterylikely developmental in nature. Focal narrowing of the mid basilararteryon the MIP images is thought likely artifactual upon review of thesourceMRA images. Dictated on 07/18/101550 by Mingo IsabelTranscribed on 07/18/101550 by EUGENIE THORPESign by Mingo Isabel on 07/19/104 Sign by: ____ Mingo Isabel 84-Kbl-938256:23 BRAIN W/W/O CONTRAST Radiology Report See Note (Normal) Comments: Exam Number: [id number] LINICAL:60 year old female with unsteady gait, [...] Comments: PATIENT NOT FASTINGPERFORMED BY: RENARD [facility] Ebonnh44[address] [place] [id number] Information: [id number] (54724) Prothrombin Time 20.6 {sec} (Abnormal) Range: 8.7-11.5 INR 1.9 (Abnormal) Range: 0.8-1.2 Comments: Reference interval is for non-anticoagulated patients. . Suggested INR therapeutic range for Vitamin K anta gonist therapy: Standard Dose (moderate intensity therapeutic range): 2.0 - 3.0 Higher intensity therapeutic range 2.5 - 3.5 :15 HgA1C , Office (19121) Comments: done HgA1C , Office 5.8 % (Normal) Range: 4.6 - 7.1 :15 Blood Glucose , Office (90287) Comments: done Blood Glucose , Office 118 (Normal) :05 HgA1C , Office (83199) HgA1C , Office 6.1 % (Normal) Range: 4.6 - 7.1 :05 Blood Glucose , Office (64888) Blood Glucose , Office 89 (Normal) :24 [...] DIABETES RISK MARKERS<--Insulin Sensitive Insulin Resistant-->Percentile in [facility] PopulationLarge VLDL-P Low 25th 50th 75th High<0.9 [...] {uIU/mL} (Normal) Range: 0.358-3.74 :24 VIT D,25 62023 39.9 ng/mL (Normal) Range: 32.0-100.0 Comments: Recent studies consider the lower limit of 32.0 ng/mL to kizzy threshold for optimal health.Helder NIEVES. J Nutr. 2004;135(2):317-22.Performed at: [facility] [address] [place], [place] [address]Isb Director: Tony Steele PhD, Phone: [phone] at: [facility] [id number] Director: Gloria Patton MD, Phone: [phone] :48 HgA1C , Office (86515) Comments: done km HgA1C , Office 5.9 % (Normal) Range: 4.6 - 7.1 :48 Blood Glucose , Office (28058) Comments: done km Blood Glucose , Office 106 (Normal) :54 PRO TIME INR 3.7 (Abnormal) Comments: RESULTS CALLED TO KRISTIAN AT DR WHITMAN'S JNJCTS03/21/10 MORENITA LEACH.REPORT READ BACK BY SAME . [...] (Normal) PROTIME 13.0 s (Abnormal) Range: 9.1-11.7 8-Tcx-002704:45 CBC HCT 37.0 % (Normal) Range: 37-47 [...] SCREEN GEL POSITIVE (Abnormal) Comments: SENT TO [facility] ON 09/05/09 PM SHIFT SCREEN CELL I 2+ (Abnormal) SCREEN CELL II 2+ (Abnormal) SCREEN CELL III 2+ (Abnormal) 9-Grz-542395:2 ANTIBODY PANEL WARM AUTOANTIBODY Comments: SURGERY? N 0 (Normal) Comments: Reactions suggestive of a warm autoantibody at [facility].Autologous adsorption of the patient's plasma with [...] Report See Note (Normal) Comments: Exam Number: [id number] Procedure completed. Please see MEDICAL RECORDS reports in PCI -OP - OP NOTELET - LETTER. Reported By: PAOLA SOSA M.D. :10 PRO TIME INR 1.5 (Normal) PROTIME 15.8 s (Abnormal) Range: 9.1-11.7 08-Vof-677495:56 MYOCARD PERF SPECT REST/STRESS Radiology Report See Note (Normal) Comments: Exam Number: [id number] STRESS CARDIOLITE STUDY HISTORYThis is a 59-year-old [...] the patient was injected with 33 mCi syGy11y Cardiolite and stress SPECT images were acquired [...] 1300; Secondarygoal: Small LDL-P < 527Performed At: I[address]RwmvPmgypan [address] [place], [place] [id number] LARGE HDL-P < 0.7 umol/L (Abnormal) LARGE [...] 1599High 1600 - 2000Very high > 2000. 30-Ozb-827174:05 HgA1C , Office (76717) Comments: done km HgA1C , Office 7.3 % (Abnormal) Range: 4.6 - 7.1 82-Fru-277585:05 Blood Glucose , Office (67756) Comments: done km Blood Glucose , Office 215 (Normal) 10-Htn-950466:59 PT (Prothrobim Time) (40360) Comments: pt/inr; PATIENT WAS FASTINGPERFORMED BY: [facility] Tppnnm4580 [address] [facility] [id number] INR 3.5 (Abnormal) Range: 0.8-1.2 Comments: Reference interval is for non-anticoagulated patients. . Suggested INR therapeutic range for Vitamin K anta gonist therapy: Standard Dose (moderate intensity therapeutic range): 2.0 - 3.0 Higher intensity therapeutic range 2.5 - 3.5 Prothrombin Time 34.1 {sec} (Abnormal) Range: 8.7-11.5 :59 TSH (55049) Comments: PATIENT WAS FASTINGPERFORMED BY: [facility] Ebppcp4945 [facility] [id number] TSH 0.934 {uIU/mL} (Normal) Range: 0.450-4.500 :59 Vitamin D Hydroxy (02073) Comments: PATIENT WAS FASTINGPERFORMED BY: [facility] Ukjhcc7453 [facility] [id number] Vitamin D, 25-Hydroxy 33.2 ng/mL (Normal) Range: 32.0-100.0 Comments: Recent studies consider the lower limit of 32.0 ng/mL to be athreshold for optimal health.Helder NIEVES. J Nutr. 2004;135(2):317-22. :59 LIPID PANEL (01550) Comments: PATIENT WAS FASTINGClinical Information: [id number] PERFORMED BY: [facility] WindowXuyjdh8998 [facility] [id number] Cholesterol, Total 171 mg/dL (Normal) Range: 100-199 HDL Cholesterol 35 mg/dL (Abnormal) Comments: According to ATP-III Guidelines, HDL-C >59 mg/dL is considered anegative risk factor for CHD. LDL Cholesterol Calc 58 mg/dL (Normal) Range: 0-99 LDL/HDL Ratio 1.7 {ratio_units} (Normal) Range: 0.0-3.2 Triglycerides 391 mg/dL (Abnormal) Range: 0-149 VLDL Cholesterol Luis 78 mg/dL (Abnormal) Range: 5-40 :07 Glucose, PP/2 Hour (10185) Comments: PATIENT NOT FASTINGClinical Information: [id number] 75G DRAWN@1 05PM PERFORMED BY: [facility] Nkqyve3644 [facility] [id number] Glucose, Two-Hour Postprandial 220 mg/dL (Abnormal) Range: 65-139 98-Lmc-573647:46 BUN 14 mg/dL (Normal) Range: 7-18 81-Qsx-865473:46 SERUM CRE & GFR CREAT,SERUM 0.6 mg/dL (Normal) Range: 0.6-1.0 EST GFR 110 mL/min (Normal) EST GFR - AA 133 mL/min (Normal) 75-Oym-537981:36 CHEST WITH CONTRAST Radiology Report See Note (Normal) Comments: Exam Number: [id number] CLINICAL:Wheezing and shortness of breath. CT CHEST [...] copy of this report has been sent [phone].Clinical Information: CC:[id number] PERFORMED BY: [facility]6370 [facility] [id number] Baso (Absolute) 0.0 {x10E3/uL} (Normal) Range: 0.0-0.2 [...] copy of this report has been sent [phone].PERFORMED BY: [facility] [id number] A/G Ratio 1.2 (Normal) Range: 1.1-2.5 Albumin, [...] copy of this report has been sent [phone].PERFORMED BY: [facility] [id number] INR 3.4 (Abnormal) Range: 0.8-1.2 Comments: Reference [...] DOMINIK WALDRON CBCD, LIVER, VITD, GGTP,CK. Range: 5-55 :30 [...] s (Abnormal) Range: 9.1-11.7 :30 VIT D,25 01885 20.1 ng/mL (Abnormal) Comments: DR. DAFNE WALDRON PT. DR. DOMINIK WALDRON CBCD, LIVER, VITD, GGTP,CK. Range: 32.0-100.0 Comments: Recent studies consider the lower limit of 32.0 ng/mL to kizzy threshold for optimal health.Helder NIEVES. J Nutr. 2004;135(2):317-22.Performed At: [facility] [place], [place] [id number] :32 PRO TIME INR 3.2 (Normal) PROTIME 37.7 s (Abnormal) Range: 9.1-11.7 :32 PT/INR, Office (17926) INR 3.5 (Normal) :38 PT/INR, Office (42306) Comments: done BC INR 3.9 (Normal) PT (PROTHROMBIN TIME) INR 3.9 s (Normal) Range: 11.5-13.5 :51 PT/INR, Office (11388) INR 3.4 (Normal) PT (PROTHROMBIN TIME) INR-3.4 s (Normal) Range: 11.5-13.5 :07 PT/INR, Office (35124) INR 2.9 (Normal) PT (PROTHROMBIN TIME) INR-2.9 s (Normal) Range: 11.5-13.5 :56 PRO TIME INR 8.6 (Abnormal) PROTIME 87.1 s (Abnormal) Range: 10.6-13.2 :50 PT/INR, Office (14141) INR 2.5 (Normal) :30 Urinalysis, Office (10812) UA - BILIRUBIN Negative (Normal) UA - BLOOD Non Hemolyzed Moderate (Normal) UA - GLUCOSE Negative (Normal) UA - KETONES Negative mg/dL (Normal) UA - LEUKOCYTE ESTERASE Trace (Normal) UA - NITRITE Negative (Normal) UA - PH 7.0 (Normal) UA - PROTEIN 30 mg/dL (Normal) UA - SPECIFIC GRAVITY 1.010 (Normal) URINE UROBILINGN KEERTHI TIMED Normal mg/dL (Normal) 72-Mlg-68283:38 SED RATE ERYTHROCYTE (49753) Comments: PATIENT NOT FASTINGClinical Information: ADD DRAW FEE 136322 ADD J [id number] PERFORMED BY: [facility] CenterCiodgv3890 [facility] [id number] Sedimentation Rate-Westergren 57 mm/h (Abnormal) Range: 0-30 69-Qgg-071624:58 BILAT SCRN DIGITAL & CAD Radiology Report See Note (Normal) Comments: Exam Number: [id number] DIGITAL SCREENING MAMMOGRAMS WITH CAD COMPARISON STUDIESSept2004 [...] The mammogramswere also examined with computer-aided detection software([employer], Spin[employer]Cam.). Reported By: WHITLEY CONTE M.D. 21-Obc-308840:57 DEXA BONE DENSITY STUDY (HP) Radiology Report See Note (Normal) Comments: Exam Number: [id number] DEXA BONE DENSITY STUDY HISTORYPostmenopausal. COMPARISON STUDYApr2001 Study was performed using [employer] unit. The lumbar spine is measured from [...] significant decrease. Reported By: VANE SWIFT M.D. 32-Eps-644760:20 BRITTNEE (ANTINUCLEAR ANTIBODY) Comments: PATIENT NOT FASTINGPERFORMED BY: [facility] [place] [id number] (02583) Antinuclear Antibodies Direct 29 AU/mL (Normal) Range: 0-99 Comments: Negative <100 Equivocal 100 - 120 Positive >120 43-Ppr-046566:20 C-REACTIVE PROTEIN (56294) Comments: PATIENT NOT FASTINGPERFORMED BY: [facility] [employer] [place] [id number] C-Reactive Protein, Quant 1.1 mg/L (Normal) Range: 0.0-4.9 95-Pvh-575490:20 Folate (08137) Comments: PATIENT NOT FASTINGClinical Information: ADD DRAW FEE 508158 ADD J 69888 PERFORMED BY: [facility] [place] [id number] Folate (Folic Acid), Serum >24.0 ng/mL (Normal) Comments: Indeterminate: 3.4 - 5.4 Deficient: <3.4 24-Hze-240369:20 RHEUMATOID FACTOR-QUANT (17144) Comments: PATIENT NOT FASTINGPERFORMED BY: [facility] [place] [id number] RA Latex Turbid. 7.9 {IU/mL} (Normal) Range: 0.0-13.9 21-Ulk-507242:20 SED RATE ERYTHROCYTE (07953) Comments: PATIENT NOT FASTINGPERFORMED BY: [facility] CenterZmfuja9197 [facility] [id number] Sedimentation Rate-Westergren 80 mm/h (Abnormal) Range: 0-30 22-Zak-455909:20 VITAMIN B-12 (CYANOCOBALAMIN) Comments: PATIENT NOT FASTINGPERFORMED BY: [facility] Txdcmz9318 [facility] [id number] (71411) Vitamin B12 >2000 pg/mL (Abnormal) Range: 211-911 48-Ova-059418:30 PT/INR, Office (82854) Comments: done kmgoal is 3-4 INR 3.8 [...] CRITICAL VALUE REPEATED AND VERIFIED. CALLED TO LYSJSYG07/11/08 1203 AARON BHATIA.RESULTS READ BACK BY PRASHANTH ALLEN . PROTIME 55.3 s (Abnormal) Range: 10.6-13.2 :20 TSH 0.79 {uIU/mL} (Normal) Range: 0.34-4.82 :29 PT/INR, Office (08775) INR 2.5 (Normal) Comments: aw :10 TROPONIN-I < 0.04 ng/mL (Normal) Comments: TROPONIN-I EXPECTED VALUES < 0.50 NEGATIVE 0.50 - 1.49 INDETERMINANT > OR = 1.50 SUGGEST NH :11 BMP Comments: INDICATE CK '1', '2', [...] 1.49 INDETERMINANT > OR = 1.50 SUGGEST NH :03 BRAIN/HEAD WITHOUT CONTRAST Radiology Report See Note (Normal) Comments: Exam Number: [id number] CT SCAN OF BRAIN HISTORYVertigo. Ataxia. Possible [...] By: NATY LANTIGUA M.D. :42 PT/INR, Office (22686) INR 2.8 (Normal) :02 PRO TIME INR [...] s (Abnormal) Range: 11.7-13.3 :17 PT/INR, Office (42886) INR 3.6 (Normal) PT (PROTHROMBIN TIME) 22.8 s (Abnormal) Range: 11.5-13.5 :03 PT/INR, Office (16686) Comments: no change recheck 1 wk; Pt. [...] with hypotension Sepsis with hypotension : Reviewed [employer] Letter Indication: Sepsis with hypotension GERD (gastroesophageal [...] disease Atrial fibrillation, unspecified type : Reviewed [employer] Letter Indication: Atrial fibrillation, unspecified type Hypertension with renal disease : Follow up in 2ish weeks Indication: Hypertension with renal disease Hypertension with renal disease : BP MONITORING - SELF Indication: Hypertension with renal disease Seizure : Reviewed Lab Indication: Seizure Seizure : Reviewed Diagnostic Tests:- cat scan brain Indication: Seizure Seizure : Reviewed [employer]ch[employer] Letter Indication: Seizure Controlled diabetes mellitus type II without complication : Follow up in 3 months Indication: Controlled diabetes mellitus type II without complication Seizure : Reviewed Visual Merchandising Associate Letter Indication: Seizure Controlled diabetes mellitus type [...] for malignant neoplasms, colon) Seizure : Reviewed [employer] Merch[employer]ising Associate Letter Indication: Seizure Cerebral hemorrhage : Reviewed [employer] Merch[employer]ising Associate Letter: currently in OT Indication: Cerebral hemorrhage Hypertension with renal disease : Continue Current Prescription(s) Indication: Hypertension with renal disease UTI (urinary tract infection), bacterial : Reviewed Lab Indication: UTI (urinary tract infection), bacterial Cerebral hemorrhage : Reviewed Lab Indication: Cerebral hemorrhage Cerebral hemorrhage : Reviewed Diagnostic Tests Indication: Cerebral hemorrhage Cerebral hemorrhage : Reviewed [employer]ch[employer]ising [employer] Letter Indication: Cerebral hemorrhage Current non-smoker : [...] up in 3 month/or when [facility] Indication: Controlled diabetes mellitus type II without [...] disease) CHF (congestive heart failure) : Reviewed [employer] Letter Indication: CHF (congestive heart failure) CHF [...] Exercise Indication: Osteoarthritis Planned Observations POTASSIUM SERUM (35364)Indication: Hyperkalemia On: 78-Ofx-092315:57 Request Blood Glucose , Office (77002)Indication: Uncontrolled type II diabetes mellitus On: 79-Svh-468976:57 Request Rapid Flu (54726 x 2)Indication: Chills (without fever) On: 2-Dxs-038090:38 Request TSH (34349)Indication: Atrial fibrillation, unspecified type On: 46-Pbt-863255:51 Request URINALYSIS, W/ MICRO (68958)Indication: Hypertension with renal disease On: 81-Mev-409482:51 Request MICROALBUMIN: CREATININE RATIO (90050) AND (28336)Indication: Hypertension with renal disease On: 78-Vmg-483101:51 Request METABOLIC PANEL, COMPREHENSIVE (76970)Indication: Hypertension with renal disease On: 82-Vhk-370842:51 Request CBC W/AUTO DIFF WBC (84784)Indication: Hypertension with renal disease On: 27-Hcr-142588:51 Request LIPID PANEL (39693)Indication: Hypercholesterolemia On: 88-Xad-090260:51 Request TSH (THYROID STIMULATING HORMONE) (93535)Indication: DISORDER, PITUITARY NEC On: 91-Lhf-647179:23 Request T3, FREE (TRIDOTHYRONINE) (11759)Indication: DISORDER, PITUITARY NEC On: :23 Request T4, FREE (THYROXINE) (36053)Indication: DISORDER, PITUITARY NEC On: :23 Request CALCIFIDIOL (03543) VIT D 25Indication: Vitamin D deficiency, unspecified On: :52 Request TSH (94236)Indication: Controlled diabetes mellitus type II without complication On: :52 Request URINALYSIS, W/ MICRO (33414)Indication: Controlled diabetes mellitus type II without complication On: :52 Request MICROALBUMIN: CREATININE RATIO (30602) AND (88560)Indication: Controlled diabetes mellitus type II without complication On: :52 Request METABOLIC PANEL, COMPREHENSIVE (63866)Indication: Controlled diabetes mellitus type II without complication On: :52 Request LIPID PANEL (33888)Indication: Controlled diabetes mellitus type II without complication On: :52 Request CBC W/AUTO DIFF WBC (67870)Indication: Controlled diabetes mellitus type II without complication On: 52-Lgu-405227:52 Request URINE FAVIAN CULTURE-IDENTIFICATN (95715)Indication: Abnormal urine On: 2-Duz-481967:17 Request FECAL OCCULT- Tubes sent home (47882)Indication: Encounter for screening for malignant neoplasm of colon (Renamed from Special screening for malignant neoplasms, colon) On: 30-Uzu-832882:39 Request Alkaline Phosphatase (74590)Indication: Antiphospholipid syndrome On: :15 Request THROAT CULTURE (45114)Indication: Sore throat On: :32 Request Metabolic Panel, Basic (13508)Indication: Hypertension with renal disease On: :56 Request Comments: do in one month BASIC METABOLIC w/Ionized Ca++ (02359)Indication: Hypertension with renal disease On: :23 Request Urine Protein Electrophoresis (UPEP) (38712)Indication: Elevated serum globulin level On: :17 Request Serum Protein Electrophoresis (SPEP) (69510)Indication: Elevated serum globulin level On: :17 Request URINALYSIS, W/ MICRO (81789)Indication: Controlled diabetes mellitus type II without complication On: :52 Request TSH (65234)Indication: Controlled diabetes mellitus type II without complication On: :52 Request CBC W/AUTO DIFF WBC (39440)Indication: Controlled diabetes mellitus type II without complication On: :52 Request MICROALBUMIN: CREATININE RATIO (22177) AND (45165)Indication: Controlled diabetes mellitus type II without complication On: :52 Request METABOLIC PANEL, COMPREHENSIVE (42023)Indication: Hypercholesterolemia On: :52 Request LIPID PANEL (85523)Indication: Hypercholesterolemia On: :52 Request HGB A1C (58097)Indication: Controlled diabetes mellitus type II without complication On: :52 Request HgA1C , Office (77775)Indication: Type 2 diabetes mellitus, controlled, with renal complications On: 01-Feb-20139:05 Request Blood Glucose , Office (57842)Indication: Type 2 diabetes mellitus, controlled, with renal complications On: 01-Feb-20139:05 Request URINE FAVIAN CULTURE-IDENTIFICATN (05384)Indication: Dysuria On: :52 Request LIPID PANEL (50478)Indication: Hyperlipidemia On: 07-Kuz-523658:17 Request CALCIFIDIOL (81640) VIT D 25Indication: Vitamin D deficiency, unspecified On: 28-Siv-617248:16 Request Vitamin D Hydroxy (65558)Indication: Osteopenia On: 57-Sxq-627970:56 Request TSH (44816)Indication: Uncontrolled type II diabetes mellitus On: 76-Gpv-883154:56 Request URINALYSIS, W/ MICRO (57324)Indication: Uncontrolled type II diabetes mellitus On: 81-Rtm-813327:56 Request MICROALBUMIN: CREATININE RATIO (63441) AND (46681)Indication: Uncontrolled type II diabetes mellitus On: 04-Vzq-415750:56 Request METABOLIC PANEL, COMPREHENSIVE (29931)Indication: Uncontrolled type II diabetes mellitus On: 07-Dcn-277032:56 Request LIPID PANEL (87734)Indication: Uncontrolled type II diabetes mellitus On: 05-Qrg-745369:56 Request CBC WITH MANUAL DIFF (52519)Indication: Uncontrolled type II diabetes mellitus On: 29-Sep-2011 Request Urine Protein Electrophoresis (UPEP) (93522)Indication: Other specified abnormal findings of blood chemistry On: 39-Ame-002658:18 Request Serum Protein Electrophoresis (SPEP) (09721)Indication: Other specified abnormal findings of blood chemistry On: 91-Buw-325490:18 Request PARATHORMONE (87535)Indication: Vitamin D deficiency, unspecified On: 84-Prn-900781:16 Request CALCIFEDIOL (82411)Indication: Other specified abnormal findings of blood chemistry On: 18-Tkf-76852:43 Request GONADOTROPIN-LH (53340)Indication: DISORDER, PITUITARY NEC On: 3-Prl-444094:04 Request GONADOTROPIN-FSH (47898)Indication: DISORDER, PITUITARY NEC On: 8-Mja-792672:04 Request SOMATOMEDIN (84812)Indication: DISORDER, PITUITARY NEC On: 2-Vlh-940860:04 Request PROLACTIN (84330)Indication: DISORDER, PITUITARY NEC On: 9-Hjb-127903:04 Request TSH (THYROID STIMULATING HORMONE) (96814)Indication: DISORDER, PITUITARY NEC On: 8-Gns-722932:04 Request ACTH (75647)Indication: DISORDER, PITUITARY NEC On: 9-Ffy-185963:04 Request LIPID PANEL (05278)Indication: Hypercholesterolemia On: 06-Sep-20109:15 Request PT (Prothrobim Time) (01738)Indication: FPC current use of anticoagulant On: 0-Msq-837047:18 Request Comments: Standing order Metabolic Panel, Basic (09255)Indication: Uncontrolled type II diabetes mellitus On: 37-Mtr-20582:00 Request TSH (62070)Indication: Controlled diabetes mellitus type II without complication On: 50-Rmw-763381:41 Request URINALYSIS, W/ MICRO (79065)Indication: Controlled diabetes mellitus type II without complication On: 13-Kxr-431432:41 Request MICROALBUMIN: CREATININE RATIO (15691) AND (17506)Indication: Controlled diabetes mellitus type II without complication On: 82-Tic-512065:41 Request METABOLIC PANEL, COMPREHENSIVE (43313)Indication: Controlled diabetes mellitus type II without complication On: 42-Tso-048205:41 Request LIPOPROTEIN, BLD, BY NMR (40369)Indication: Controlled diabetes mellitus type II without complication On: 70-Mco-160571:41 Request LIPID PANEL (00595)Indication: Controlled diabetes mellitus type II without complication On: 23-Tfr-375849:41 Request CBC WITH MANUAL DIFF (01866)Indication: Controlled diabetes mellitus type II without complication On: 84-Fag-997445:41 Request Comments: DO PRIOR TO NEXT VISIT PT (Prothrobim Time) (07629) On: 95-Lcn-265256:39 Request Comments: inr Vitamin D Hydroxy (32534)Indication: Osteopenia On: 60-Skn-498953:37 Request HEPATIC FUNCTION PANEL (71510)Indication: Hypercholesterolemia On: 85-Wgi-311848:36 Request LIPOPROTEIN, BLD, BY NMR (10500)Indication: Hypercholesterolemia On: 16-Mxz-157221:36 Request LIPID PANEL (02763)Indication: Hypercholesterolemia On: 34-Xzs-535872:35 Request Comments: do in 3 mionths PT/INR, Office (86550)Indication: Transient ischemic attack On: 82-Whd-94167:17 Request CALCIFIDIOL (23128) VIT D 25Indication: Vitamin D deficiency, unspecified On: 60-Mvg-710932:34 Request PT/INR, Office (38248) On: 97-Mqs-007311:22 Request PT/INR, Office (64958)Indication: Transient ischemic attack On: 7-Djf-883680:44 Request PT (Prothrobim Time) (28366)Indication: FPC current use of anticoagulant On: 0-Jry-859245:05 Request Comments: Standing order x 1 year PT/INR, Office (26231) On: 51-Krq-77355:57 Request SED RATE ERYTHROCYTE (47472)Indication: Polymyalgia rheumatica On: 70-Gwo-819081:59 Request Comments: DO IN 2 WEEKS LIPID PANEL (59685)Indication: Hypercholesterolemia On: 87-Btr-933627:02 Request Comments: do in 6 months PT/INR, Office (19302) On: 54-Qun-115031:25 Request Comments: done kmsee flow sheet PT/INR, Office (35613)Indication: Transient ischemic attack On: 68-Iwk-885660:04 Request Comments: done PT (Prothrobim Time) (72529)Indication: FPC current use of anticoagulant On: 91-Uja-856918:10 Request Comments: AND INR PT/INR, Office (09977) On: 25-Gsx-468548:06 Request CBC WITH MANUAL DIFF (30605)Indication: Leukopenia On: 54-Eyv-597405:49 Request Planned Procedures INFUSION, NORMAL SALINE SOLUTION On: 30-Sep-2017 Intent , 1000 CC (Special Coverage Comments: IV Therapy giqamgzqt41K, 1 inchSite: L acTolerated: wellno redness or swelling, no s/s infiltrationML,BUSINESS ANALYSIS ANALYST Instructions Apply. See [facility]: 2048) (J7030)By: Hannah Leos DO, DO, Kathleen INFUSION, NORMAL SALINE SOLUTION On: 20-Sep-2017 Intent , 1000 CC (Special Coverage Comments: IV Therapy wufdidjrt74V, 1 inchSite: L ac - first attempt and Saline Lock flushed easily Tolerated: wellno redness or swelling, no s/s infiltration MLONG Instructions Apply. See [facility]: 2048) ([id number])By: Hannah Leos DO, DO, Kathleen ELECTROCARDIOGRAM, COMPLETE On: 28-Jun-2017 Intent (ECG) ([id number])By: Mino SMITH, Yadira PNEUM VAC ADLT/IMUMNOSPR, On: 16-Jun-2017 Intent SBC/INTRM ([id number])By: Visit, Comments: Lot #[id number]-L arm, dltd, IMDose- prefilled syringegiven by:WALDO McfarlandVIS signed Nurse ELECTROCARDIOGRAM, COMPLETE On: 14-Jun-2017 Intent (ECG) ([id number])By: Dafne WELSH, Comments: sinus poor R progression , nonaspecific st flattening and t wave inversion in lateral leads-- new chgn - Hannah Castro DO SCREENING DIGITAL TOMOSYNTHESIS On: 24-May-2017 Intent OF BREAST ([id number])By: Hannah Leos DO, DO, Kathleen Flu Vaccine (Quadrivalent) On: 07-May-2017 Intent 00457Bc: Hannah Leos DO Comments: Lot:[id number]:02/14/18Amt:0.5mlRoute:IMSite: L DltdGiven By: GUSTAVO Chaves signed Hannah Leos DO CT - Brain/Head (Without On: 05-Apr-2017 Intent Contrast)By: Hannah Leos DO Comments: following cerebral hemorrhage Hannah Leos DO Solu -Medrol Injection, 125 mg On: 08-Mar-2017 Intent ([id number])By: Daniela Herzog CNP Comments: Lot:[id number]:07/18Dose:125mgRoute:imSite:r hip Given By:MO signed Radiology - Elbow - RightBy: On: 08-Mar-2017 Intent Daniela Herzog CNP Flu Vaccine (Quadrivalent) On: 04-Jun-2016 Intent [id number]: Hannah Leos DO Comments: Lot:[id number]:02/26/17Dose:0.5mLRoute:IMSite:L DltdGiven By:MO signed Hannah Leos DO DEXA SCAN AXIAL SKELETON On: 17-Oct-2015 Intent ([id number])By: Hannah Leos DO, DO, Kathleen MAMMOGRAM, SCREENING, BOTH On: 17-Oct-2015 Intent BREAST ([id number])By: Hannah Leos DO, DO, Kathleen IMMUNIZ ADMNIN, 1 VAC, On: 04-Jun-2014 Intent SNGL/COMBO ([id number])By: Cathy Kim FLU VAC, SPLIT, >3 YEARS, On: 04-Jun-2014 Intent INTRAMUSC ([id number])By: Julio, Comments: Lot:[id number]:Dose:0.5mLRoute:IMSite:L DltdGiven By:MO signed Cathy EKG ([id number])By: Dafne WELSH, On: 08-Nov-2013 Intent Hannah Castro DO Comments: sinus alethea - nonspeciific st flattening Eprescribed prescriptions On: 08-Nov-2013 Intent (G8553)By: Hannah Leos DO, DO, Kathleen Eprescribed prescriptions On: 01-Feb-2013 Intent (G8553)By: Shea May LPN Eprescribed prescriptions On: 09-Nov-2012 Intent (G8553)By: Shea May LPN EKG ([id number])By: Dafne WELSH, On: 29-Jul-2012 Intent Hannah Castro DO Comments: nsr no acute chg MAMMOGRAM, SCREENING, BOTH On: 29-Jul-2012 Intent BREASTS ([id number])By: Hannah Leos DO, DO, Kathleen Eprescribed prescriptions On: 29-Jul-2012 Intent (G8553)By: Jessica Shields LPN Eprescribed prescriptions On: 11-Jan-2012 Intent (G8553)By: Jessica Shields LPN EKG ([id number])By: Dafne WELSH, On: 16-Jul-2011 Intent Hannah Castro DO Comments: nsr no acute chg -first degree block not differnt IMMUNIZ ADMNIN, 1 VAC, On: 16-Jul-2011 Intent SNGL/COMBO ([id number])By: Dafne WELSH, Comments: Lot #[id number]/Site-left deltoidgiven by: WALDO Stewart DO, Kathleen PNEUM VAC ADLT/IMUMNOSPR, On: 16-Jul-2011 Intent SBC/INTRM ([id number])By: Hannah Leos DO, DO, Kathleen DXA, BONE DENSITY, AXIAL On: 15-Oct-2010 Intent SKELETON ([id number])By: Jessica Shields LPN MAMMOGRAM, SCREENING, BOTH On: 15-Oct-2010 Intent BREASTS ([id number])By: Jessica Shields LPN Clinical Breast Examination On: 15-Oct-2010 Intent (G0101)By: Jessica Shields LPN TDAP VACCINE >7 IM ([id number])By: On: 08-Sep-2010 Intent Hannah Leos DO, DO, Comments: Lot #[id number]-L armDose prefilled syringegiven by:DEEDEE Young MRA - Upper Extremity OtherBy: On: 15-Jul-2010 Intent Hannah Leos DO, DO, Kathleen MRI - BrainBy: Dafne WELSH, On: 06-Jun-2010 Intent Hannah Castro DO EKG ([id number])By: Dafne WELSH, On: 06-Jun-2010 Intent Hannah Castro DO Nuclear Stress Test/Stress On: 12-Aug-2009 Intent SPECT/AdenosineBy: Hannah Leos DO, DO, Kathleen Echo CompleteBy: Dafne WELSH, On: 15-Jul-2009 Intent Hannah Castro DO EKG ([id number])By: Dafne WELSH, On: 15-Jul-2009 Intent Hannah Castro DO Comments: nonspecific flattening no acute changes Solu -Medrol Injection, 125 mg On: 23-May-2009 Intent ([id number])By: Yuko Gonzalez LPN Comments: Lot #[id number]-Left [id number] mggiven by:[facility] Spirometry ([id number])By: Aron On: 23-May-2009 Intent Francisca Comments: normal CT - ChestBy: Francisca Sharp On: 23-May-2009 Intent Comments: PE protocol Pulse Oximetry ([id number])By: On: 23-May-2009 Intent Francisca Sharp Comments: 97% EKG ([id number])By: Dafne WELSH, On: 11-Nov-2007 Intent Hannah Castro DO Comments: SINUS ALETHEA NONSPECIFIC BASELINE DXA, BONE DENSITY, AXIAL On: 28-Oct-2007 Intent SKELETON ([id number])By: Hannah Leos DO, DO, Hannah MAMMOGRAM, SCREENING, BOTH On: 28-Oct-2007 Intent BREASTS ([id number])By: Hannah Leos DO, DO, Kathleen Radiology - Chest- PA and LatBy: On: 12-Nov-2006 Intent Hannah Leos DO, DO, Hannah Aerosol Treatment ([id number])By: On: 12-Nov-2006 Intent Hannah Leos DO, DO, Comments: MORE AIR EXCHANGE NO WHEEZE AND RUB SOFTER-- PT FEELS CLINICALLY BETTER Hannah Pulse Oximetry ([id number])By: Dafne On: 12-Nov-2006 Intent Hannah WELSH DO, [...] is transitioning into care from a hospital ([facility] for [facility] week and a half for [...] conversion disorder with concussion. 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
--- OUTSIDE RECORDS SUMMARY | 2018-11-18 16:17 | XMS RPT_ITS | Continuity of Care Document ---
:1950 Author Organization [facility] Address [address] [place] [address] Phone Care Team Providers Name Role Phone Hannah Leos DO Unavailable Rasta Alvarezine Unavailable Jana Hughes Unavailable WALDO Shields Unavailable Unavailable Long Shea HAAS Unavailable Unavailable Jessica Bliss Unavailable Unavailable Allie Gustafson Unavailable Unavailable Slarb SHEARING SHED WORKER, Deidra Unavailable Unavailable Unavailable Unavailable Problems Name [...] going to see Dyana, will see in [place] Status: Active Sepsis with hypotension (A41.9, 038.9) [...] infection), bacterial (N39.0, 599.0) Comments: while at [facility] -- E coli in culture and [...] 0 days Quantity: 30 {Tablet} Refills: 3 Ordered:21-Mar-2018 Shea May LPN Start : 21-Mar-2018 Active LaMICtal 100 MG Oral Tablet 1 [...] days Quantity: 1 {Each} Refills: 0 Ordered:07-Oct-2017 SlaDeidra gaona LPN Start : 07-Oct-2017 Active Vimpat 200 [...] : 21-Sep-2017 End : 13-Oct-2017 Inactive ERGOCALCIFEROL, 66826BDNI (Oral Capsule) 2 Capsule q week for [...] Quantity: 14 {Capsule} Refills: 0 Ordered:25-Aug-2010 Mino SMITHDaniela E Start : 25-Aug-2010 End : 01-Sep-2010 Inactive [...] days Quantity: 90 {Capsule} Refills: 0 Ordered:08-Jul-2017 eJssica Shields LPN Start : 29-Jun-2017 End : [...] Comments:This order discontinued per [employer]. VITAMIN D, 64925TMST (Oral Capsule) 1 (one) Capsule Twice a [...] (R53.83, 780.79) Status: Inactive as of 13-Feb-2009 shelter current use of anticoagulant (Z79.01, V58.61) Comments: [...] Pacemaker Check Result: Comments: See Note; NOTES: [facility] [address] [place] [address] [address] [place] [address] Pacemaker Check Date of Service: 04/09/18924 MR#: [id number] Acct: [id number] Name: HERMINIA NASH Rep #: [id number] : 1950 From: Verónica Trinidad Age/Sex: 68/F Location: [facility] Status: Signed Billing Codes PM Device Codes: PM Dev Interrogate (Remot 04/09/18 0929 <Karsten kelly signed by Verónica Trinidad > Date Verónica Trinidad 04/11/18 1659<Electronically signed by Gary FALL> Cosigner Signature : Date (if applicable) Gary Zamora CC: 25-Mar-2018 History and Physical Exam Result: Comments: See Note; NOTES: [facility] Medical Records Department [address] [address] History and Physical 03/25/18 1449 MR#: [id number] Acct: [id number] Name: Douglas NASH Rep #: [id number] : 1950 68 From: Karel Max DO [...] of 102.5 Fahrenheit. Patient was sent to [facility] emergency room. Patient was found to [...] history Psychiatric History: No pertinent psych hx SENIOR ACCOUNT REPRESENTATIVE History: No pertinent SENIOR ACCOUNT REPRESENTATIVE history Smoking Status: Never s coral Tobacco [...] Lovenox Code Visit Inpatient E AND M: 64127 Init Hosp L3 03/25/18 1457 <Electronically signed by Karel Max DO> Date Karel Max DO Cosigner Signature: Date (if applicable) CC: Karel Max DO; Hannah Leos DO Signed 25-Mar-2018 Chest 1 View (Portable) Result: Comments: See Note; NOTES: [facility] Imaging Services [address] [place] [address] Chest 1 View (Portable) MR#: [id number] Acct: [id number] Name: HERMINIA NASH Rep #: [id number] : 1950 F 68 From: Darrell Prado MD PCP: Hannah Leos DO Status: REG ER Study: Chest 1 View (Portable) Date of Exam: 03/25/18 Exam# [id number] Ordering Dr: Mitra Whitney STUDY: X-RAY CHEST [...] MD at 14:04 EDT , Service support [phone], CC: Mitra Whitney; Hannah Leos DO Kettle Operator Head: Signed 09-Feb-2018 Cardiology Visit Report Result: Comments: See Note; NOTES: [facility] [place] [address] OFFICE VISIT Date of Service: 01/28/18 MR#: [id number] Acct: [id number] Name: HERMINIA NASH Rep #: [id number] : 1950 Provider: Yasmin Aiken Age/Sex: 67/F Location: [facility] Status: Signed HPI HPI Details: HERMINIA NASH, [...] I ntake Visit Reasons: 3 M FU Frame Expander Required: No Accompanied by: Is patient in [...] mg PO DAILY 10/06/17 [History Confirmed 01/28/18] [place] xyzine HCl 25 mg PO BID 10/07/17 [...] The above patient was discussed with Dr. Pollcok , he agrees with plan of care. Thank you for allowing us to participate in patient's plan of care, if you have any questions please do not hesitate to call. This note was generated using a voice recog Codenomicon system and there may be incorrect words, [...] __ (if applicable) Mehul Pollock MD CC: Hannah Dafne 11-Jan-2018 Pacemaker Check Result: Comments: See Note; NOTES: [facility] [address] [place], [place] [address]e. [address] [place] [address] Pacemaker Check Date of Service: 12/31/17 1423 MR#: [id number] Acct: [id number] Name: HERMINIA NASH Rep #: [id number] : 1950 From: Verónica Trinidad Age/Sex: 67/F Location: [facility] Status: Signed Comments Summary Comments: Dual Chamber Pacemaker Evaluation: 6 wk post PPM implant check co mpleted. Interrogation shows no MS episodes and no VT episodes since 11/16/17. Left pectoral pocket/incision w/o s/s of infection or erosion. Pt offers no cardiac complaints at present. Presenting rhythm shows AAI pacing @ 60 ppm. ELECTRIC ORGAN CHECKER=2%. Battery longevity approx 8.5yrs. Lead impedances, sensing and pace/sense thresholds remain stable. Decreased AV amplitudes with adequate safety margin to preserve olaf clary longevity. Counters cleared. Next f/u appt scheduled for in 3 mos. Device Device Date Interviewed: 12/31/17 Follow-up Location: in office Interview Reason: scheduled follow up Hall Coordinator: [employer] Name: The Box SIMON VILLA IS-1 Model: L111 Serial #: [id number] Implant Date: 11/15/17 Year(s): 0 Implant Physician: Dr. Mehul Pollock/ [facility] Patient Characteristics Atrial Indication: sick sinus syndro me Patient Substrate: Arrhythmia Ejection fraction %: 50 to 54 (05/2015) By: Echo Underlying rhythm: Sinus rhythm Pacemaker Dependent: No Device Characteristics Device: Dual Chamber Type: Pacemaker Matthew te Follow-Up: Latitude Device Physical Exam Yes Incision well healed, No hematoma, Pocket not tender and No drainage Leads Lead #1 Hall Coordinator Lead 1: [employer] Model Lead 1: 7741 Serial# Blanca d 1: [id number] Date Implanted Lead 1: 11/15/17 Position Lead 1: RA Lead #2 Hall Coordinator Lead 2: [employer] Model Lead 2: 7740 Serial# Lead 2: [id number] Date Implanted Lead 2: 11/15/17 Position Lead [...] Pacemaker Check Result: Comments: See Note; NOTES: [facility] [address] [place] [address] Pacemaker Check Date of Service: 11/22/17 1119 MR#: [id number] Acct: [id number] Name: HERMINIA NASH Rep #: [id number] : 1950 From: Verónica Trinidad Age/Sex: 67/F Location: [facility] Status: Signed Comments Summary Comments: Wound Check: [...] in office Interview Reason: scheduled follow up Hall Coordinator: [employer] Name: Garrett BOLANOS-1 Model: L111 Serial #: [id number] Implant Date: 11/15/17 Year(s): 0 Implant Physician: Dr. Mehul Pollock/ [facility] Patient Characteristics Atrial Indication: sick sinus syndrome Patient Substrate: Arrhythmia (junctional rhythm with HR in 20's) Ejection fraction %: 5 0 to 54 (05/2015) By: Echo Underlying rhythm: Sinus rhythm Pacemaker Dependent: No Device Characteristics Device: Dual Chamber Type: Pacemaker Device Physical Exam Yes Steri-strips intact, No hematoma a nd No drainage Leads Lead #1 Hall Coordinator Lead 1: [employer] Model Lead 1: 7740/45 [facility] MRI Serial# Lead 1: [id number] Date Implanted Lead 1: 11/15/17 Position Lead 1: RA Lead #2 Hall Coordinator L ead 2: [employer] Model Lead 2: 7741/52 [facility] Serial# Lead 2: [id number] Date Implanted Lead 2: 11/15/17 Position Lead [...] Discharge Instruction Result: Comments: See Note; NOTES: [facility] Medical Records Department [address] [place] [address] Discharge Instruction 11/17/17 1836 MR#: [id number] Acct: [id number] Name: HERMINIA NASH Rep #: [id number] : 1950 67 From: Rodríguez Costa DO [...] your Primary Care Provider. Call [facility] Registry ([phone]) or report t o the closest Emergency Room. Call 911 if necessary. 11/17/177 <Electronically signed by Rodríguez Costa DO> Date Rodríguez Costa DO Co signer Signature (If Indicated): Date CC: Hannah Leos DO 17-Nov-2017 Emergency Department Summary Result: Comments: See Note; NOTES: [facility] Medical Records Department [address] [place] [address] Emergency Department Summary 11/17/17 1833 MR#: [id number] Acct: [id number] Name: HERMINIA NASH Rep #: [id number] : 1950 67 From: Rodríguez Costa DO [...] significant pain to the site.] Physical Examination: [HEENT-PERRLA, EOMI. Cranial nerves II through XII grossly [...] of infection] This note was generated with RAP Index dictation software. It may contain incorrect words, [...] your Primary Care Provider. Call [facility] ([phone]) or report to the closest Emergency Room. Call 911 if necessary. 0 11/17/17 1836 <Electronically signed by Rodríguez Costa DO> Date Rodríguez Costa DO Cosigner Signature (If Indicated): Date CC: Hannah Leos DO 16-Nov-2017 Discharge Instruction Result: Comments: See Note; NOTES: [facility] Medical Records Department [address] [place] [address] Instructions for Home/Discharge Instructions 11/16/17 0848 MR#: [id number] Acct: [id number] Name: HERMINIA NASH Rep #: [id number] : 1950 67 From: Mehul Pollock MD PCP: Hannah Leos DO Status: REG [facility] Discharge Diet: No Restrictions Discharge Activity: May [...] call your doctor's office or Doctor's Registry ([phone]) Call 911 or g o to the [...] 1 View Result: Comments: See Note; NOTES: [facility] Imaging Services [address] [place] [address] Chest 1 View MR#: [id number] Acct: [id number] Name: HERMINIA NASH N Rep #: [id number] : 1950 F 67 From: Martha Delgado MD PCP: Hannah Leos DO Status: [facility] Study: Chest 1 View Date of Exam: 11/16/17 Exam# [id number] Ordering Dr: Mehul Pollock MD STUDY: X-RAY [...] CC: Mehul Pollock MD; Hannah Leos DO Kettle Operator Head: Signed 16-Nov-2017 Chest PA and Lateral Result: Comments: See Note; NOTES: [facility] Imaging Services [address] [place] [address] Chest PA and Lateral MR#: [id number] Acct: [id number] Name: HERMINIA NASH N Rep #: [id number] : 1950 F 67 From: Mallorie Bolaños MD PCP: Hannah Leos DO Status: [facility] Study: Chest PA and Lateral Date of Exam: 11/16/17 Exam# [id number] Ordering Dr: Mehul Pollock MD STUDY: X-RAY [...] CC: Mehul Pollock MD; Hannah Leos DO Kettle Operator Head: Signed 05-Nov-2017 Office Visit Report Result: Comments: See Note; NOTES: [place] [address] [place] [place] [address] OFFICE VISIT Date of Service: 11/05/17 MR#: [id number] Acct: [id number] Patient: HERMINIA NASH Rep #: [id number] : 1950 Provider: Verónica Trinidad Age/Sex: 67/F Location: [facility] Status: Signed Comments Summary Comments: PPM implant [...] CC: 05-Nov-2017 12 Lead EKG performed by [facility] Result: Comments: See Note; NOTES: [facility] [address] [place] [address] 12 Lead EKG performed by [facility] 11/05/17 1027 MR#: [id number] Acct: [id number] Name: HERMINIA BLAND N Rep #: [id number] : 1950 67 From: Mehul Pollock MD Attending Dr: Verónica Trinidad Status: REG AMB Ordering Dr: Mehul Pollock MD Date: 11/05/17 Location: [facility] Sex: F A Admitted: ZEINA R #: [id number] BMS/12 Lead EKG performed by [facility] Sinus Rhythm Low voltage in limb leads. - Diffuse nonspecific T-abnormality. BNORMAL 11/05/17 1522 <Electronically signed by Mehul Pollock MD&amp ;#62; Date Mehul Pollock MD CC: Hannah Leos DO Date Dictated: 11/05/17 1027 Date Transcribed: 11/05/17 102 Kettle Operator Head: CO Signed 05-Nov-2017 12 Lead EKG performed by [facility] Result: Comments: See Note; NOTES: [facility] [address] [place] [address] 12 Lead EKG performed by [facility] 11/05/17 1027 MR#: [id number] Acct: [id number] Name: HERMINIA BLAND Rep #: [id number] : 1950 67 From: Mehul Pollock MD Attending Dr: Verónica Trinidad Status: DEP AMB Ordering Dr: Mehul Pollock MD Date: 11/05/17 Location: [facility] Sex: F A Admitted: BMS/12 Lead EKG performed by [facility] ECG Report Interpretation Sinus Rhythm Low voltage in limb leads. - Diffuse nonspecific T-abnormality. ABNORMAL Electronically sig perfecto on 11/18/2017 at 13:49 by Mehul Pollock 11/18/17 1350 Date Mehul Pollock MD CC: Hannah Leos DO Date Dictated: 11/05/17 1027 Date Transcribed: 11/05/17 1027 Kettle Operator Head: CO Signed 29-Oct-2017 Cardiology Visit Report Result: Comments: See Note; NOTES: [facility] [address] [place] [address] OFFICE VISIT Date of Service: 10/29/17 MR#: [id number] Acct: [id number] Name: HERMINIA NASH Rep #: [id number] : 1950 Provider: Yasmin Aiken Age/Sex: 67/F Location: [facility] Status: Signed HPI HPI Details: HERMINIA NASH, [...] Lt brachial Intake Visit Reasons: 4 M Frame Expander Required: No Accompanied by: Is patient in [...] prior to saving. 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 (SENIOR MICROSTRATEGY DEVELOPER/MMM) 10/17 (30 day event monitor) Coding Level [...] Discharge Instruction Result: Comments: See Note; NOTES: [facility] Medical Records Department [address] [place] [address] Discharge Instruction 10/13/17 1624 MR#: [id number] Acct: [id number] Name: HERMINIA NASH Rep #: [id number] : 1950 67 From: Wenceslao Marley MD [...] problems, contact your Primary Care Provider. Call [facility] ([phone]) or report to the closest Emergency Room. Call 911 if necessary. 1710 <Electronically signed by Wenceslao Marley MD> Date Wenceslao Marley MD Cosigner Signature (If Indicated): Date _ CC: Hannah Leos DO 13-Oct-2017 Emergency Department Summary Result: Comments: See Note; NOTES: [facility] Medical Records Department [address] [place] [address] Emergency Department Summary 10/13/17 1240 MR#: [id number] Acct: [id number] Name: HERMINIA NASH Rep #: [id number] : 1950 67 From: Wenceslao Marley MD PCP: Hannah Leos DO Status: DEP ER - ER Visit Summary Date of Service: 10/13/17 Chief Complaint: Cough, fever and ch ills History of Present Illness: The patient is a 67 F past medical history significant for hemorrhagic CVA, qze-jqhqgjm-vdizctemg diabetes, hypertension, A. fib, seizure disorder. Patient [...] of CVA. With seizure disorder. History of azp-ndrrodd-dpzmjohko diabetes. History of A. fib T his note was generated with RAP Index dictation software. It may contain incorrect words, [...] problems, contact your Primary Care Provider. Call [facility] ([phone]) or report to the closest Emergency Room. Call 911 if necessary. 10/13/17 170 9 <Electronically signed by Wenceslao Marley MD> Date Wenceslao Marley MD Cosigner Signature (If Indicated): Date CC: Hannah Leos DO 13-Oct-2017 Consultation Result: Comments: See Note; NOTES: [facility] Medical Records Department [address] [place] [address] Consultation 10/13/17 1608 MR#: [id number] Acct: [id number] Name: HERMINIA NASH Rep #: [id number] : 1950 67 From: Noe Kwok MD [...] history Psychiatric History: No pertinent psych hx SENIOR ACCOUNT REPRESENTATIVE History: No pertinent SENIOR ACCOUNT REPRESENTATIVE history Smoking Status: Never smoker - *Family [...] (Auto) Neut % (Auto) Lymph % (Auto) [place] % (Auto) Diagnostic Data Chest X-Ray 10/13/17 [...] outpatient. Code Visit Inpatient E AND M: 66977 Ini t Hosp L2 10/13/17 1625 <Electronically signed by Noe Kwok MD> Date Noe Kwok MD Cosigner Signature (if applicable): Date CC: Hannah Leos DO Signed 13-Oct-2017 Chest PA and Lateral Result: Comments: See Note; NOTES: [facility] Imaging Services [address] [place] [address] Chest PA and Lateral MR#: [id number] Acct: [id number] Name: HERMINIA NASH Rep #: [id number] : 1950 F 67 From: Anna Becerra MD PCP: Hannah Leos DO Status: REG ER Study: Chest PA and Lateral Date of Exam: 10/13/17 Exam# [id number] Ordering Dr: Wenceslao Marley MD STUDY: X-RAY [...] CC: Wenceslao Marley MD; Hannah Leos DO Kettle Operator Head: Signed 06-Oct-2017 Emergency Department Summary Result: Comments: See Note; NOTES: [facility] Medical Records Department [address] [place] [address] Emergency Department Summary 10/06/17 2224 MR#: [id number] Acct: [id number] Name: HERMINIA NASH Rep #: [id number] : 1950 67 From: Francia Lr MD [...] bleeding This note was genera gayla with RAP Index dictation software. It may contain incorrect words, [...] your Primary Care Provider. Call [facility] ([phone]) or report to the closest Emergency Room. Call 911 if necessary. 10/06/17 2318 <Electronica lly signed by Francia Lr MD> Date Francia Lr MD Cosigner Signature (If Indicated): Date CC: Hannah Leos DO 06-Oct-2017 Pelvic (Non ) Result: Comments: See Note; NOTES: [facility] Imaging Services [address] [place] [address] Pelvic (Non ) MR#: [id number] Acct: [id number] Name: HERMINIA NASH Rep #: [id number] : 1950 F 67 From: Tirso Ovalle PCP: Hannah Leos DO Status: REG ER Study: Pelvic (Non ) Date of Exam: 10/06/17 Exam# [id number] Ordering Dr: Francia Lr MD STUDY: ULTRASOUND [...] CC: Francia Lr MD; Hannah Leos DO Kettle Operator Head: Signed 06-Oct-2017 Chest 1 View (Portable) Result: Comments: See Note; NOTES: [facility] Imaging Services [address] [place] [address] Chest 1 View (Portable) MR#: [id number] Acct: [id number] Name: HERMINIA NASH Rep #: [id number] : 1950 F 67 From: Tirso Ovalle PCP: Hannah Leos DO Status: [facility] ER Study: Chest 1 View (Portable) Date of Exam: 10/06/17 Exam# [id number] Ordering Dr: Francia Lr MD STUDY: X-RAY [...] DO at 21:42 EST , Service support , CC: Francia Lr MD; Hannah Leos DO Kettle Operator Head: Signed 03-Sep-2017 Emergency Department Summary Result: Comments: See Note; NOTES: [facility] Medical Records Department [address] [place] [address] Emergency Department Summary 09/02/17 2105 MR#: [id number] Acct: [id number] Name: HERMINIA NASH Rep #: [id number] : 1950 67 From: Jesus Alberto Fernandes [...] at 19:47 EST , Service support , [facility] Department Course and Treatment: Patient was [...] Recurrent seizure. This note was generated with RAP Index dictation software. It may contain incorrect words, [...] your Primary Care Provider. Call [facility] ([phone]) or report to the closest Emergenc y Room. Call 911 if necessary. 09/03/17 0218 <Electronically signed by Jesus Alberto Fernandes MD> Date Jesus Alberto Fernandes MD Cosigner Signature (If Indicated): Date CC: Hannah Leos DO 02-Sep-2017 Brain W/WO Contrast Result: Comments: See Note; NOTES: [facility] Imaging Services [address] [place] [address] Brain W/WO Contrast MR#: [id number] Acct: [id number] Name: HERMINIA NASH Rep #: [id number] : 1950 F 67 From: Darrell Prado MD PCP: Hannah Leos DO Status: [facility] ER Study: Brain W/WO Contrast Date of Exam: 09/02/17 Exam# [id number] Ordering Dr: Jesus Alberto Fernandes MD STUDY: [...] Hannah Leos DO; Jesus Alberto Fernandes MD Kettle Operator Head: Signed 02-Sep-2017 Brain/Head without Contrast Result: Comments: See Note; NOTES: [facility] Imaging Services [address] [place] [address] Brain/Head without Contrast MR#: [id number] Acct: [id number] Name: HERMINIA NASH Rep #: [id number] : 1950 F 67 From: Greg Leiva MD PCP: Hannah Leos DO Status: PRE ER Study: Brain/Head without Contrast Date of Exam: 09/02/17 Exam# [id number] Ordering Dr: Jesus Alberto Fernandes MD STUDY: [...] Hannah Leos DO; Jesus Alberto Fernandes MD Kettle Operator Head: Signed 20-Aug-2017 PT D/C Summary (1) Result: Comments: See Note; NOTES: [facility] Physical Therapy [facility] [address] [place] [address] Fax REHABILITATION SERVICES DISCHAR GE SUMMARY MR#: [id number] Acct: [id number] Name: HERMINIA NASH Rep #: [id number] [...] have been met and will discharge to [facility]. If there are questions or concerns regarding this patient's physical therapy, please feel free to call me at [phone]. Thank you for the referral of this patient. Sincerely, Karel Kwong, FLORIDAT, OC &am p;#60;Electronically signed by Karel Kwong DPT, YULISA, CSCS> 08/20/17 1619 CC: Hannah Leos DO EBG Signed 04-Aug-2017 Re-Evaluation - PT (1) Result: Comments: See Note; NOTES: [facility] Physical Therapy [facility] [address] [place], [place] [address] Fax REEVALUATION / MEDICARE RECERTI FICATION PHYSICAL THERAPY MR#: [id number] Acct: [id number] Name: HERMINIA NASH Rep #: [id number] : 1950 67 From: Karel Kwong DPT, [...] do not hesitate to contact me at [phone] by phone or if you have questions or concerns regarding this new plan of care! Sincerely, Karel Kwong DPT, OC <Electronically signed by Karel BARTHOLOMEWT, OCS, [facility]> 7 0746 CC: Hannah eLos DO EBG Signed For Medicare only, by signing this I certify the plan of care. Physicians Signature Date 03-Aug-2017 Re-Evaluation - PT (1) Result: Comments: See Note; NOTES: [facility] Physical Therapy [facility] [address] [place] [address]. [address] [place] [address] Fax REEVALUATION / MEDICARE RECERTI [facility] PHYSICAL THERAPY MR#: [id number] Acct: [id number] Name: HERMINIA NASH Rep #: [id number] : 1950 67 From: Shaunna Buitrago DPT [...] do not hesitate to contact me at [phone] by phone or if you have questions or concerns regarding this new plan of care! Sincerely, Shaunna Buitrago <Electronically signed by Shaunna Mclain om DPT> 08/03/17 1054 CC: Hannah Leos DO EMILY Signed For Medicare only, by signing this I certify the plan of care. Physicians Signature Date 09-Jul-2017 Re-Evaluation - PT (1) Result: Comments: See Note; NOTES: [facility] Physical Therapy [facility] [address] [place], [place] [address] Fax REEVALUATION / MEDICARE RECERTMarybeth LONG PHYSICAL THERAPY MR#: [id number] Acct: [id number] Name: HERMINIA NASH Rep #: [id number] : 1950 67 From: Shaunna Buitrago DPT [...] do not hesitate to contact me at [phone] by phone or Fax: if you have questions or concerns regarding this new plan of care! Sincerely, Shaunna Buitrago <Electronically signed by Shaunna Buitrago DPT> 07/09/17 1252 CC: Hannah Leos DO ELR Signed For Medicare only, by signing this I certify the plan of care. Physicians Signature Date 23-Jun-2017 PT Communication Result: Comments: See Note; NOTES: [facility] [address] [place] [address]. [address] [place] [address] Fax REHABILITATION SERVICES PROGRES S NOTE MR#: [id number] Acct: [id number] Name: HERMINIA NASH Rep #: [id number] : 1950 67 From: Karel Kwong DPT, OCS, CSCS Referring Dr.: Hannah Leos DO Status: REG RCR Insurance: [employer] MEDICARE PPO PT Communication Note 06/15/[address] Hannah Leos , Thank you for the referral of Herminia to [facility] for balance assessment. I have enclosed a [...] have questions. Thank y bonnie. Sincerely, Karel Kowng DPT, OC Contact Information 06/23/17 0741 <Electronically signed by Karel Kwong DPT, OCS, CSCS> Date Karel Varghese DPT, OCS, CSCS Cosigner Signature (if applicable): Date CC: Hannah Leos DO Signed For Med icare only, by signing this I certify the plan of care. Physicians Signature Date 21-Jun-2017 Emergency Department Summary Result: Comments: See Note; NOTES: [facility] Medical Records Department [address] [place] [address] Emergency Department Summary 06/20/17 2105 MR#: [id number] Acct: [id number] Name: HERMINIA NASH Rep #: [id number] : 1950 67 From: Huy Caballero PCP: [...] Dr. Medina in Neurology. Switch f rom Mara due to side effects. Seizure since February which occurred on an airplane, after her cruise. Initially reported she was found in the cabin by her friends on the ground. Airplane went to [place] , she is found to have a [...] stools. Additional history, spouse states while in [place] patient was on a ventilator for 3 [...] for ED Patient: Disposition: Acute Care [facility] Chief Complaint: Seizure Diagnosis: Atrial fibrillation with RVR , Breakthrough seizure Referrals: Hannah Leos, [NON-STAFF] - What to do if you have Problems For any increased pain, shortness of breath, bleeding, nausea or vomiting, chest pain, or any une xpected problems, contact your Primary Care Provider. Call Doctors Registry ([phone]) or report to the closest Emergency Room. Call 911 if necessary. 06/20/172321 <Electronically signed by Huy Caballero> Date Huy Caballero Cosigner Signature (If Indicated): Date CC: Hannah Leos DO 20-Jun-2017 Emergency Department Summary Result: Comments: See Note; NOTES: [facility] Medical Records Department [address] [place] [address] Emergency Department Summary 06/20/175 MR#: [id number] Acct: [id number] Name: HERMINIA NASH Rep #: [id number] : 1950 67 From: Huy Caballero PCP: [...] friends on the ground. Airplane went to [place], she is fou nd to have a [...] stools. Additional history, spouse states while in [place] patient was on a ventila tor for [...] for ED Patient: Disposition: Acute Care Hospital [facility] Chief Complaint: Seizure Diagnosis: Atrial fibrillation with RVR, Isela rainey seizure Referrals: Hannah Leos, [NON-STAFF] - What to do if you have Problems For any increased pain, shortness of breath, bleeding, nausea or vomiting, chest pain, or any unexpected prob lems, contact your Primary Care Provider. Call Doctors Registry ([phone]) or report to the closest Emergency Room. Call 911 if necessary. 06/20/172321 <Electronically signed by Huy Spear> Date Huy Caballero Cosigner Signature (If Indicated): Date CC: Hannah Leos DO 20-Jun-2017 Chest 1 View (Portable) Result: Comments: See Note; NOTES: [facility] Imaging Services [address] [place] [address] Chest 1 View (Portable) MR#: [id number] Acct: [id number] Name: HERMINIA NASH Rep #: [id number] : 1950 F 67 From: Stef Wong MD PCP: Hannah Leos DO Status: REG ER Study: Chest 1 View (Portable) Date of Exam: 06/20/17 Exam# [id number] Ordering Dr: Huy Pitts DO STUDY: X-RAY [...] , CC: Hannah Leos DO; Huy Pitts Kettle Operator Head: Signed 02-Jun-2017 SCREENING MAMM (CAD), BILAT Result: Comments: See Note; NOTES: [facility] Imaging Services [address] [place] [address] SCREENING MAMM (CAD), BILAT MR#: [id number] Acct: [id number] Name: HERMINIA NASH Rep #: [id number] : 1950 F 67 From: Martha Delgado MD PCP: Hannah Leos DO Status: REG CLI Study: SCREENING MAMM (CAD), BILAT Date of Exam: 06/02/17 Exam# [id number] Ordering Dr: Hannah Leos DO MAMMOGRAPHY - [...] significant abnormalities are identified. ORDER # : [id number] HPBI/SCREENING MAMM (CAD), BILAT IMPRESSION: Stable bilateral screening mammogram. Yearly follow-up mammogram recommended. (A) ASSESSMENT CATEGORY: BIRA DS Category 2: Benign. A letter regarding these results will be sent to the patient by the facility within 30 days. Approximately 10% of breast cancers are not detected by mammography. A normal mammogr am should not delay biopsy of a clinically suspicious abnormality. [id number] Electronically Signed: Martha Delgado MD at 15:16 EDT Tel , Service support , Fax CC: Hannah Leos DO Kettle Operator Head: Signed 27-May-2017 Inital Evaluation (1) - PT Result: Comments: See Note; NOTES: [facility] Physical Therapy [facility] [address] [place] [address]. [address] [place] [address] Fax REHABILITATION SERVICES INITIAL EVALUATION MR#: [id number] Acct: [id number] Name: HERMINIA NASH Rep #: [id number] : 1950 67 From: Shaunna Buitrago DPT Referring Dr.: Hannah Leos DO Status: REG RCR Insurance: [employer] ICARE O Patient's Visit Information HERMINIA NASH is a [...] she was on a plane back to [place]. She had a seizure on the plane- they made an emergency landing in [place] and she spent 10 days in the ICU. 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 She is big sandy ng to get back to these things [...] to be FAXED BACK to us at [phone] for Medicare purposes. Please let me know if there are questions or concerns regarding this plan of care. Physician Signature: Date: <Electronically signed by Shaunna Barragan PT> 05/27/17 1058 CC: Hannah Leos DO ELR Signed For Medicare only, by signing this I certify the plan of care. Physicians Signature Date 21-May-2017 OT D/C Summary Result: Comments: See Note; NOTES: [facility] Occupational Therapy [facility] [address]. [address] [place] [address] Fax REHABILITATION SERVICES DIS CHARGE SUMMARY MR#: [id number] Acct: [id number] Name: HERMINIA NASH Rep #: [id number] : 1950 67 From: Deyanira Crockett Referring [...] WFL. Pt. strength measurments are as follows; bell person R 52, L 44; lat eral R [...] Ho bbies Goal:: Pt. to increase L bell person by 20 lbs to promote increase bell person strength for ADl/AIDls and manipualtion of bilateral [...] ne eded for ADL/IADLs and return to [facility] by [...] please fell free to call me at [phone]. Thank you for the referral of this patient. Sincerely, Deyanira Crockett <Ana Maria ctronically signed by Deyanira Crockett > 05/21/17 1121 CC: Hannah Leos DO KMB Signed 20-May-2017 Emergency Department Summary Result: Comments: See Note; NOTES: [facility] Medical Records Department [address] [place] [address] Emergency Department Summary 05/20/17 1638 MR#: [id number] Acct: [id number] Name: HERMINIA NASH Rep #: [id number] : 1950 67 From: Juan Mendiola MD [...] discussion with pharmacist she was loaded with [employer]. Case was discussed with Dr. Schaffer after [...] Primary Care Provid er. Call Doctors Registry ([phone]) or report to the closest Emergency Room. Call 911 if necessary. 05/20/17 1644 <Electronically signed by Juan Mendiola MD> Date Juan Mendiola MD Cosigner Signature (If Indicated): Date CC: Hannah Leos DO; Armando Schaffer MD 20-May-2017 Brain/Head without Contrast Result: Comments: See Note; NOTES: [facility] Imaging Services [address] [place] [address] Brain/Head without Contrast MR#: [id number] Acct: [id number] Name: HERMINIA NASH Rep #: [id number] : 1950 F 67 From: Paresh Kebede MD PCP: Hannah Leos DO Status: REG ER Study: Brain/Head without Contrast Date of Exam: 05/20/17 Exam# [id number] Ordering Dr: Juan Mendiola MD STUDY: CT [...] Paresh Kebede MD at 16:07 EDT Tel [phone], Service support , CC: Hannah Leos DO; Juan Mendiola MD Kettle Operator Head: Signed 21-Apr-2017 Brain without Contrast Result: Comments: See Note; NOTES: [facility] Imaging Services [address] [place] [address] Brain without Contrast MR#: [id number] Acct: [id number] Name: HERMINIA NASH Rep #: [id number] : 1950 F 67 From: Martha Delgado MD PCP: Hannah Leos DO Status: REG CLI Study: Brain without Contrast Date of Exam: 04/21/17 Exam# [id number] Ordering Dr: Manjinder Turpin MD STUDY: MRI [...] by Martha Delgado MD to Manjinder Turpin, [facility] Physician, on 04/21/2017 16:04:47 (ET). Elect ronically Signed: Martha Delgado MD at 16:04 EDT Tel , Service support , N.B. : The above information has been verbally conveyed by Martha Delgado MD to Manjinder Turpin, Covering Physician, on 04/21/2017 16:04:47 (ET). CC: Manjinder Turpin; Hannah Leos DO Kettle Operator Head: Signed 21-Apr-2017 OT General Evaluation Result: Comments: See Note; NOTES: [facility] Occupational Therapy [facility] [address]. [address] [place] [address] Fax REHABILITATION SERVICES INI TIAL EVALUATION MR#: [id number] Acct: [id number] Name: HERMINIA NASH Rep #: [id number] : 1950 67 From: Deyanira Crockett Referring [...] weakness. present for begining and end of . He noted that Herminia was on cruise with friend when she fell trying to get into bed. Herminia noted that she was able to get into bed and noted no symptoms until the flight home. The fall that a ppeared to cause the bleed occured February,. Once in air, Pt. started siezure on plane, the medics called to plane after landing in [place]. Family drove out to [place]. She was intubated wit h trach tube and other lines. She noted when sedated she pulled trach out which has left her with hoarse voice. She spend 10 days in ICU according to , was moved out and then driven home to [place] from [place]. She has not had seizures for a few weeks and notes she is feeling pretty good. She noted she has h/o TIA a few years ago in which she has experience L sided neglect. - Objective Objective/Observation: Pt. appeared with ROM in BUE WFL. Pt. presents with L sided weakness. Pt. R bell person 70 lbs, L 49 lbs. Pt. seizure occured during session. Lasted 2 mins and then subsided w ith medication. No loss of conciousness or movement. Pt. able to walk with out of session. - ROM Shoulder: WFL Elbow: WFL Forearm: WFL Wrist: WFL MP: WFL PIP: WFL DIP: WFL - Strength Shoulder: R 4+/5, L 4-/5 Elbow: R 4+/5, L 4-/5 Melt House Centrifugal Operator: R 70 L 49 Lateral Pinch: R [...] sa fety. Family to call in to [facility] follow-up appointments. Varbalized undertsanding and to continue [...] - Goals Goal:: Pt. to increase L bell person by 20 lbs to promote increase bell person strength for ADl/AIDls and manipualtion of bilateral [...] of d/c. - Re habilitation General Assessment: Pt.Herminia, is s/p cerebral hemorrhage occuring in March [...] to be FAXED BACK to us at [phone] for Medicare purposes. Please let me know if there are questions or concerns regarding this plan of care. Physician Signature: Date: <Electronically signed by Deyanira Crockett > 04/21/17 0921 CC: Hannah Leos DO KMB Signed For Medicare only, by signing this I certify the plan of care. Physicians Signature Date 20-Apr-2017 Adult Evaluation - SP Result: Comments: See Note; NOTES: [facility] Speech Pathology [facility] 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 Right Hearing Abillity: Normal Left Hearing Abillity: [...] <Electronic ally signed by Aries Dan M.A. [facility]-[employer] SHELL LOADING MACHINE OPERATOR> 04/20/17 1418 CC: Hannah Leos DO YASSINE Signed For Medicare only, by signing this I certify the plan of care. ____ Physicians Signature Date 16-Apr-2017 Brain/Head without Contrast Result: Comments: See Note; NOTES: [facility] Imaging Services [address] [place] [address] [place] [address] Brain/Head without Contrast MR#: [id number] Acct: [id number] Name: HERMINIA NASH Rep #: [id number] : 1950 F 67 From: Paresh Kebede MD PCP: Hannah Leos DO Status: REG CLI Study: Brain/Head without Contrast Date of Exam: 04/16/17 Exam# [id number] Ordering Dr: Ramiro Leos DO STUDY: CT [...] Paresh Kebede MD at 15:34 EDT Tel [phone], Service support , CC: Hannah Leos DO Kettle Operator Head: Signed 08-Apr-2017 Emergency Department Summary Result: Comments: See Note; NOTES: [facility] Medical Records Department [address] [place] [address] Emergency Department Summary 04/08/17 0711 MR#: [id number] Acct: [id number] Name: HERMINIA NASH Rep #: [id number] : 1950 67 From: Martin Rodriguez MD [...] intracranial hemorrhage and was actually hospitalized in [place]. Apparently the patient is still in recovery [...] point, the patient potentially is having hypertens lucian encephalopathy versus other cause for change in [...] Primary Care Provide r. Call Doctors Registry ([phone]) or report to the closest Emergency Room. Call 911 if necessary. 04/08/17 0743 <Electronically signed by Martin Rodriguez MD> Date ____ Martin Rodriguez MD Cosigner Signature (If Indicated): Date CC: Hannah Leos DO 08-Apr-2017 Chest 1 View (Portable) Result: Comments: See Note; NOTES: [facility] Imaging Services [address] [place] [address] Chest 1 View (Portable) MR#: [id number] Acct: [id number] Name: HERMINIA NASH Rep #: [id number] : 1950 F 67 From: Ady Steele MD PCP: Hannah Leos DO Status: REG ER Study: Chest 1 View (Portable) Date of Exam: 04/08/17 Exam# [id number] Ordering Dr: Martin Rodriguez MD STUD Y: [...] , CC: Hannah Leos DO; Martin Rodriguez Kettle Operator Head: Signed 08-Apr-2017 Brain/Head without Contrast Result: Comments: See Note; NOTES: [facility] Imaging Services [address] [place] [address] Brain/Head without Contrast MR#: [id number] Acct: [id number] Name: HERMINIA NASH Rep #: [id number] : 1950 F 67 From: Ady Steele MD PCP: Hannah Leos DO Status: REG ER Study: Brain/Head without Contrast Date of Exam: 04/08/17 Exam# [id number] Ordering Dr: Martin Rodriguez STUDY: CT BRAIN [...] , CC: Hannah Leos DO; Martin Rodriguez Kettle Operator Head: Signed 08-Mar-2017 Elbow min 3 Views Result: Comments: See Note; NOTES: [facility] Imaging Services [address] [place] [address] Verdana 4d Elbow min 3 Views MR#: [id number] Acct: [id number] Name: HERMINIA NASH Rep #: [id number] : 1950 F 66 From: Greg Leiva MD PCP: Hannah Leos DO Status: REG CLI Study: Elbow min 3 Views Date of Exam: 03/08/17 Exam# [id number] Ordering Dr: Daniela Herzog STUDY: X-RAY - RIGHT ELBOW REASON FOR EXAM: Female, 66 years old. Pain. TECHNIQUE: 3 view(s) of the elbow. COMPARISON: None. 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 There is degenerative arthrosis of the radiocapitellar and ulnotrochlear articulations. The soft tissue structures are unremarkable. RAD/El bow min 3 Views IMPRESSION: No acute fracture or dislocation. Arthrosis. Electronically Signed: Greg Leiva MD at 14:47 EDT , Service support , Fax CC: Daniela Herzog; Hannah Leos DO Kettle Operator Head: Signed 22-Oct-2015 Bilat Scrn Digital AND CAD Result: Comments: See Note; NOTES: [facility] Imaging Services [address] [place] [address] Verdana 4d Bilat Scrn Digital AND CAD MR#: [id number] Acct: [id number] Name: HERMINIA NASH Rep #: [id number] : 1950 F 65 From: Paresh Kebede MD PCP: Hannah Leos DO Status: REG CLI Study: Bilat Scrn Digital AND CAD Date of Exam: 10/22/15 Exam# [id number] Or dering Dr: Hannah Leos DO MAMMOGRAPHY [...] Paresh Kebede MD at 16:11 EST Tel [phone], Service support [phone], CC: Hannah Leos DO Kettle Operator Head: Signed 22-Oct-2015 Dexa Bone Density Study (HP) Result: Comments: See Note; NOTES: [facility] Imaging Services [address] [place] [address] Verda 4d Dexa Bone Density Study () MR#: [id number] Acct: [id number] Name : HERMINIA NASH Rep #: [id number] : 1950 F 65 From: Paresh Kebede MD PCP: Hannah Leos DO Status: [facility] Study: Dexa Bone Density Study (HP) Date of Exam: 10/22/15 Exam# [id number]: Hannah Leos DO STUDY: [...] Paresh Kebede MD at 8:05 EST Tel [phone], Service support [phone], CC: Hannah Leos DO Kettle Operator Head: Signed 17-Oct-2015 ELECTROCARDIOGRAM, COMPLETE (ECG) (42511) Comments: nsr no acute chg Result: [MEASUREMENTS ANALYSIS] Date of Test: 10/17/2015 08:35:17; Heart Rate: 61; KS Interval: 176; QRS: 104; QT Interval: 402; Corrected QT Interval (QTc): 403; P Wave Woodson: -1; QRS Wave Woodson: 9; T Wave Woodson: -1; Blood Pressure: 148/84 [ECG DIAGNOSTIC STATEMENTS] [...] smoker Vital Signs Date Test Result Details 17-Arb-622423:27 Comments: [id number] BP Systolic 130 mm[Hg] Comments: Patient Position: [...] kg/m2 Body Surface Area Calculated 1.8 m2 0-Snw-170073:36 Temperature 97.6 f Comments: Method: Temporal Pulse [...] 0.00 cm Results Date Description Value Details 66-Kch-266690:27 Miscellaneous Lab Procedure Comments: Comments: [id number] LACOSAMIDE SER RTTest(s) Ordered: [id number] LACOSAMIDE SER [facility] [address] [place], [id number] [facility] [place]: TEST RESULT UNITS REFERENCE INTERVALLacosamideLacosamide 16.6 High ug/mL 5.0 - 10.0 Limit of Detection 0.5 Mean plasma concen LAB (Normal) trations following maintenance dose 200 mg/day 4.99 +/- 2.51 ug/mL 400 mg/day 9.35 +/- 4.22 ug/mL 600 mg/day 12.46 +/- 5. TEST 60 ug/mLPlease Note:This test was developed and its performance characteristicsdetermined by [employer]. It has not been cleared or approvedby the Food and Drug Administration. TESTING PERFORMED AT [facility]. ORIGINAL REPORT ON FILE IN LAB CONTAINS ADDITIONAL TEST SITE INFORMATION. 31-Pol-127432:27 Valproic Acid (Depakene) Level Comments: [facility] [address] [place], [place], [address] VALPROIC ACID 65 ug/mL (Normal) Range: 50-100 51-Fie-837852:31 Potassium Comments: [facility] [address] [place], [place], [address] K 4.8 mmol/L (Normal) Range: 3.5-5.1 86-Czw-068218:49 METABOLIC PANEL, COMPREHENSIVE Comments: PATIENT NOT FASTINGPERFORMED BY: [facility] Vkqath0673 [facility] [id number] ([id number]) ALT (SGPT) 1 [iU]/L (Normal) Range: 0-32 [...] be decreased and K increased. Clinicalcorrelation indicated. 69-Oud-363212:49 CBC, PLATELETS & AUT DIFF Comments: PATIENT NOT FASTINGPERFORMED BY: [facility] Kxlbds6693 [facility] [id number] ([id number]) Immature Grans (Abs) 0.0 {x10E3/uL} (Normal) Range: [...] 3.77-5.28 WBC 5.7 {x10E3/uL} (Normal) Range: 3.4-10.8 28-Naa-673928:16 URINE FAVIAN CULTURE-IDENTIFICATN Comments: PATIENT NOT FASTINGPERFORMED BY: RENARD [facility] [address] [place] [place] [id number] Information: SRC:UC (73070) Result 1 MUG (Normal) Comments: Mixed urogenital flora10,000-25,000 colony forming units per mL Urine Final report (Normal) Culture,Comprehensive 68-Weo-929447:14 Urinalysis, Office (01774) UA - LEUKOCYTE ESTERASE Negative (Normal) UA - NITRITE Negative (Normal) URINE UROBILINGN KEERTHI TIMED Normal mg/dL (Normal) UA - PROTEIN 100 mg/dL (Normal) UA - PH 6 (Abnormal) UA - BLOOD Negative (Normal) UA - SPECIFIC GRAVITY 1.000 (Normal) UA - KETONES Negative mg/dL (Normal) UA - BILIRUBIN Negative (Normal) UA - GLUCOSE Negative (Normal) 19-Tfy-244941:31 Protein+Creatinine Ratio,Urine Comments: [facility] [address] [facility] [place], [address] PROT:CRE RATIO 1411 {mg/g_CRE} (Abnormal) Range: 0-200 PROTEIN,UR.RAN. 63.9 mg/dL (Abnormal) UR CREAT 45.30 mg/dL (Normal) 57-Yih-471848:31 Renal Profile Comments: [facility] Rx[address]uhf[address] [facility]. [place], [place], [address] CO2 24.0 mmol/L (Normal) Range: 21.0-32.0 CL [...] A.D.A. criteria.Please note revised GLUCOSE reference range wvtmipjee99/02/2018. 09-Mgg-407544:43 IGA/IGD/IGG/IGM-EACH (34178) Comments: PATIENT NOT FASTINGPERFORMED BY: CB [facility] Fsrifv5807 [facility] [id number] BY: [facility] [address] [id number] Immunoglobulin E, Total 15 {IU/mL} (Normal) Range: 0-100 Immunoglobulin M, Qn, Serum 84 mg/dL (Normal) Range: 26-217 Immunoglobulin A, Qn, Serum 265 mg/dL (Normal) Range: 87-352 Immunoglobulin G, Qn, Serum 1461 mg/dL (Normal) Range: 700-1600 74-Dyz-155200:40 Urinalysis, Complete Comments: Order Date: 03/25/18COLOR OF URINE MAY AFFECT DIPSTICK RESULTS.How was Urine Obtained? FREIGHT CAR INSPECTOR TO SPECIFYWvumedicine [facility]ville Hospital [address] [place], [place], [address] AMORPHOUS 2+ (Normal) MUCUS, URINE 0 SEEN [...] CLARITY Sl. Cloudy (Normal) COLOR Mitra (Normal) 97-Rhn-434107:45 CBC W/Diff, Automated Comments: [facility] [address] [place], [address] RED CELL MORPH NORM C+C {NORMAL} (Normal) [...] 4.2-5.4 WBC 5.2 K/mm3 (Normal) Range: 4.4-11.0 05-Dbi-355363:45 Comprehensive Metabolic Profil Comments: [facility] [address] [place], [address] GAP 13 (Normal) Range: 5-15 CO2 20.0 [...] A.D.A. criteria.Please note revised GLUCOSE reference range /2018. 42-Xly-843242:45 Lactic Acid Comments: Yes/No query for Sepsis Lactate [facility] [address] [place], [address] LACTIC ACID 4.8 mmol/L (Abnormal) Range: 0.4-2.0 Comments: Critical Result(s) Called at: 13:34:37 03/25/2018 by:Morenita Zamora 98-Rwq-587866:45 Partial Thromboplast Time Comments: [facility] [address] [place], [address] PTT 37.8 s (Abnormal) Range: 24.1-36.2 65-Gwi-126424:45 Prothrombin Time w/INR Comments: [facility] [address] [place], [address] INR 1.1 (Normal) PROTIME 14.6 s (Normal) Range: 11.7-14.9 12-Xyv-974147:45 Troponin-I Comments: [facility] [address] [facility] [address] [facility] [address] [place], [place], [address] TROPONIN-I < 0.015 ng/mL (Normal) Comments: TROPONIN-I EXPECTED VALUES <0.045 Negative 0.045 - 0.590 Consistent with Cardiac Damage > OR = 0.600 Critical Value Not every elevated troponin is indicative of OK. T hesevalues should be used with clinical judgement in examiningthe patient's clinical picture for diagnosis. To establisha diagnosis of OK versus myocardial injury, there must be ademonstrated rise and/ or fall in the troponin values, inaddition to ischemic symptoms, EKG changes, new regionalwall motion abnormality, and/or angiographical evidence. PLEASE NOTE: REFERENCE RANGES EDITED 01/10/1821-Mar-201828-Jft-900943:12 Microscopic Examination Comments: PATIENT WAS FASTINGPERFORMED BY: [facility] Cffabs7402 [facility] [id number] Bacteria Moderate (Abnormal) Mucus Threads Present (Normal) Epithelial Cells (non renal) 0-10 {/hpf} (Normal) Range: 0 - 10 RBC 3-10 {/hpf} (Abnormal) Range: 0 - 2 WBC >30 {/hpf} (Abnormal) Range: 0 - 5 Comments: Clumps of leukocytes present. 84-Gys-345243:57 HgA1C , Office (06501) HgA1C , Office 9.8 % (Abnormal) Range: 4.6 - 7.1 04-Rzj-214157:56 Microalb:Creat Ratio,Random UR Comments: [facility] [address] [place], [address] MALB:CREAT 3256.8 {mg/g_CRE} (Abnormal) MICROALBUMIN,UR 2410.0 mg/L (Normal) UR CREAT 74.00 mg/dL (Normal) 02-Zgz-500581:12 CALCIFIDIOL (52742) VIT D 25 Comments: PATIENT WAS FASTINGPERFORMED BY: [employer] [employer] [place] [id number] Vitamin D, 25-Hydroxy 18.2 ng/mL (Abnormal) Range: 30.0-100.0 Comments: Vitamin D deficiency has been defined by the [place] ofMedicine and an Endocrine Society practice guideline as alevel of serum 25-OH vitamin D less than 20 ng/mL (1,2).The Endocrine Society went on to further define vitamin Dinsufficiency as a level between 21 and 29 ng/mL (2).1. IOM ([place] of Medicine). 2010. Dietary reference intakes for calcium and D. [place]: The National Academies Press.2. Swathi MF, Alexandra NC, Judy OLMEDO, et al. Evaluation, treatment, and prevention of vitamin D deficiency: an Endocrine Society clinical practice guideline. JCEM. 2010; 96(7):1911-30. 99-Qdx-112294:12 TSH (81580) Comments: PATIENT WAS FASTINGPERFORMED BY: NoWait [facility] Qpbacw8878 [address] [place] [id number] TSH 3.550 {uIU/mL} (Normal) Range: 0.450-4.500 63-Ryy-979346:12 URINALYSIS, W/ MICRO (24324) Comments: PATIENT WAS FASTINGPERFORMED BY: NoWait [facility] Hneuet2821 [address] SensAble TechnologiesDublin [place] [id number] Microscopic Examination See below: (Normal) Comments: Microscopic was indicated and was performed. Nitrite, Urine Positive (Abnormal) Urobilinogen,Semi-Qn 0.2 mg/dL (Normal) Range: 0.2-1.0 Bilirubin Negative (Normal) Occult Blood Trace (Abnormal) Ketones Negative (Normal) Glucose Negative (Normal) Protein 3+ (Abnormal) WBC Esterase 2+ (Abnormal) Appearance Cloudy (Abnormal) Urine-Color Yellow (Normal) pH 6.0 (Normal) Range: 5.0-7.5 Specific Boron 1.021 (Normal) Range: 1.005-1.030 75-Bir-587655:12 MICROALBUMIN: CREATININE RATIO Comments: PATIENT WAS FASTINGPERFORMED BY: UGO NetworksRobert Wood Johnson University Hospital SomersetUfzgzy5091 [facility] [id number] (65414) AND (87929) Alb/Creat Ratio 5216.8 {mg/g_creat} (Abnormal) Range: 0.0-30.0 Albumin, Urine 4387.3 ug/mL (Normal) Comments: Results confirmed ondilution. Creatinine, Urine 84.1 mg/dL (Normal) 91-Zpj-600697:12 METABOLIC PANEL, COMPREHENSIVE Comments: PATIENT WAS FASTINGPERFORMED BY: [employer] Eadygd6213 [facility] [id number] (67012) ALT (SGPT) 3 [iU]/L (Normal) Range: 0-32 [...] 8-27 Glucose 222 mg/dL (Abnormal) Range: 65-99 45-Zcf-094249:12 LIPID PANEL (91210) Comments: PATIENT WAS FASTINGPERFORMED BY: Sonda4170 Tesseract InteractiveCritical access hospital [id number] VLDL Cholesterol Luis VLDLCH mg/dL (Normal) Range: 5-40 Comments: The calculation for the VLDL cholesterol is not valid whentriglyceride level is >400 mg/dL.Triglyceride result indicated is too high for an accurate LDLcholesterol estimation. HDL Cholesterol 29 mg/dL (Abnormal) Triglycerides 861 mg/dL (Abnormal) Range: 0-149 Cholesterol, Total 182 mg/dL (Normal) Range: 100-199 16-Psw-845502:12 CBC W/AUTO DIFF WBC (23127) Comments: PATIENT WAS FASTINGPERFORMED BY: ISVWorld6370 [facility]ados[facility] Hospit[facility] [id number] Immature Grans (Abs) 0.0 {x10E3/uL} (Normal) Range: [...] (Normal) Range: 3.4-10.8 :14 HgA1C , Office (64554) HgA1C , Office 8.7 % (Abnormal) Range: 4.6 - 7.1 :14 Blood Glucose , Office (46253) Blood Glucose , Office 225 (Normal) 12-Jgh-679742:06 Bedside Glucose Comments: [facility] LaboratoryPoint of Iayc0660 [facility] [place] [address] BEDSIDE GLU 144 mg/dL (Abnormal) Range: 70-110 Comments: MANAGEMENT OF PATIENT CARE PER NURSING PROTOCOL 5-Hmt-108259:49 Basic Metabolic Profile (BMP) Comments: [facility] Lxmqpszhtl5517 [facility]. [place], [place], [address] GAP 6 (Normal) Range: 5-15 CO2 29.0 [...] A.D.A. criteria.Please note revised GLUCOSE reference range ahugscako03/02/2018. 5-Bwv-313455:49 CBC-Complete Blood Cnt No Diff Comments: [facility] [address] [place], [address] MPV 10.3 fL (Normal) Range: [...] 4.2-5.4 WBC 8.0 K/mm3 (Normal) Range: 4.4-11.0 7-Ehf-169740:49 Prothrombin Time w/INR Comments: [facility] Dre[address] [place], [address] INR 1.0 (Normal) PROTIME 13.3 s (Normal) Range: 11.7-14.9 4-Lgt-797141:49 Urinalysis, Complete Comments: How was Urine Obtained? FREIGHT CAR INSPECTOR TO SPECIFYWUniversity Hospitals [facility]aug[facility] Center [address]ts[address] [place], [address] MUCUS, URINE 0 SEEN {/hpf} [...] CLARITY Sl. Cloudy (Normal) COLOR Yellow (Normal) 1-Phi-402708:44 Miscellaneous Lab Procedure Comments: Comments: LACOSAMIDE [id number] RED/RTTest(s) Ordered: LACOSAMIDE [id number] [facility] Sgjnqyrrjl77[address] Leandraannie AndradeIrene, [place], [address] [facility] [place] Comments: TEST RESULT LIMITSLacosamide Lacosamide 13.0 High ug/mL 5.0 - 10.0 Limit of Detection 0.5 Mean plasma concentrations f LAB (Normal) ollowing maintenance dose 200 mg/day 4.99 +/- 2.51 ug/mL 400 mg/day 9.35 +/- 4.22 ug/mL 600 mg/day 12.46 +/- 5.60 ug/mLPle TEST ase Note:This test was developed and its performance characteristicsdetermined by [facility]. It has not been cleared or approvedby the Food and Drug Administration. TESTING PERFORMED AT [facility]. ORIGINAL REPORT ON FILE IN LAB CONTAINS ADDITIONAL TEST SITE INFORMATION. 87-Tnw-406987:21 URINE FAVIAN CULTURE-KEERTHI COL Comments: PATIENT NOT FASTINGPERFORMED BY: [facility] Wyjufz[address] [place] [id number] Information: SRC:UC COUNT (03966) Result 1 MTHREE (Normal) Comments: More than 3 organisms recovered, none predominant. Please submitanother culture if clinically indicated.Greater than 100,000 colony forming units per mL Urine Final report (Normal) Culture,Comprehensive 58-Quz-357412:12 Urinalysis, Office (97823) UA - LEUKOCYTE ESTERASE Negative (Normal) UA - NITRITE Negative (Normal) URINE UROBILINGN KEERTHI TIMED 2 mg/dL (Normal) UA - PROTEIN 100 mg/dL (Normal) UA - PH 7 (Normal) UA - BLOOD Negative (Normal) UA - SPECIFIC GRAVITY 1.010 (Normal) UA - KETONES Negative mg/dL (Normal) UA - BILIRUBIN Negative (Normal) UA - GLUCOSE 500 (Abnormal) 92-Ibw-926877:53 Microalb:Creat Ratio,Random UR Comments: [facility] Xmzynphmhf1438 [facility] [address]. [place], [place], [address] MALB:CREAT 331.9 {mg/g_CRE} (Abnormal) MICROALBUMIN,UR 235.0 mg/L (Normal) UR CREAT 70.80 mg/dL (Normal) 78-Mzl-242499:45 Urinalysis, Complete Comments: Order Date: 10/13/17How was Urine Obtained? CLEAN CATCHWUniversity Hospitals Geauga Medical Center Btlcqxviet9649 [facility] [address]. [place], [place], [id number] MUCUS, URINE RARE {/hpf} (Normal) BACTERIA RARE [...] CLARITY Sl. Cloudy (Normal) COLOR Yellow (Normal) 66-Atw-056622:55 Albumin, Serum Comments: DR ALVAREZ ADDED A RENAL PANELWvumedicine Barnesville Hospital [address] [place], [place], [address] ALB 3.7 g/dL (Normal) Range: 3.2-5.0 98-Fgn-812798:55 Basic Metabolic Profile (BMP) Comments: DR ALVAREZ ADDED A RENAL PANELWvumedicine Barnesville Hospital [address]vbtxw[address] [place], [place], [address] GAP 12 (Normal) Range: 5-15 CO2 20.0 [...] A.D.A. criteria.Please note revised GLUCOSE reference range gckmwggmy64/02/2018. 37-Tmi-384399:55 CBC W/Diff, Automated Comments: [facility] [address]cdr[address] [place], [address] Absolute Lymph 0.27 {X10_3/ul} (Abnormal) [...] 4.2-5.4 WBC 8.9 K/mm3 (Normal) Range: 4.4-11.0 73-Cod-190119:55 Lactic Acid Comments: Yes/No query for Sepsis Lactate [facility] [address]cl[address]igkz[address] [place], [address] LACTIC ACID 2.8 mmol/L (Abnormal) Range: 0.4-2.0 Comments: Critical Result(s) Called at: 13:50:00 10/13/2017 by:Morenita Roberts to [facility] 89-Rbo-376327:55 Phosphorus Comments: DR ALVAREZ ADDED A RENAL PANELWUniversity Hospitals Geauga Medical Center [address]mmp[address] [place], [address] PHOS 2.2 mg/dL (Abnormal) Range: 2.5-4.9 8-Dyt-042500:55 Basic Metabolic Profile (BMP) Comments: 'TROP' Serial specimen #1, #2, #3, or #4: 1WUniversity Hospitals Geauga Medical Center [address]qczot[address] [place], [address] GAP 11 (Normal) Range: 5-15 [...] 126 mg/dLsuggests DIABETES MELLITUS per A.D.A. criteria. :55 CBC W/Diff, Automated Comments: [facility] [address]ohfse[address] [place], [address] Absolute Lymph 3.74 {X10_3/ul} (Normal) [...] 4.2-5.4 WBC 7.8 K/mm3 (Normal) Range: 4.4-11.0 0-Ilm-806268:55 Troponin-I Comments: 'TROP' Serial specimen #1, #2, #3, or #4: [address] [place] [address] Vrjdbbxkmv9094 [place], [place], [address] TROPONIN-I 0.03 ng/mL (Normal) Comments: TROPONIN-I EXPECTED VALUES <0.05 NEGATIVE 0.06 - 0.59 AT RISK OF OK > OR = 0.60 SUGGEST OK 07-Oct-20179:39 URINE FAVIAN CULTURE-KEERTHI COL Comments: PATIENT NOT FASTINGPERFORMED BY: [facility] Jrinbs9831 [facility] [id number] Information: SRC:UC COUNT (02836) Antimicrobial MIHEAD (Normal) Comments: S = Susceptible; [...] mL (Abnormal) Urine Final report Culture,Comprehensive (Abnormal) 0-Gwv-346676:28 Urinalysis, Office (02455) UA - LEUKOCYTE ESTERASE Trace (Normal) UA - NITRITE Negative (Normal) URINE UROBILINGN KEERTHI TIMED Normal mg/dL (Normal) UA - PROTEIN Negative mg/dL (Normal) UA - PH 6 (Abnormal) UA - BLOOD Hemolyzed Trace (Normal) UA - SPECIFIC GRAVITY 1.005 (Normal) UA - KETONES Negative mg/dL (Normal) UA - BILIRUBIN Negative (Normal) UA - GLUCOSE 500 (Abnormal) 44-Dhn-79434:50 HgA1C , Office (89177) HgA1C , Office 7.5 % (Abnormal) Range: 4.6 - 7.1 38-Ygf-76240:50 Blood Glucose , Office (74712) Blood Glucose , Office 196 (Normal) 35-Lph-052758:34 Free T3 Comments: [facility] [address] [place], [place], [address] ; appt 09/21 FREE T3 2.0 pg/mL (Abnormal) Range: 2.18-3.98 08-Xri-006880:34 T4 Free Direct Comments: [facility] Uxxf[address] [place] [address], [address] T4 FREE DIRECT 1.06 ng/dL (Normal) Range: 0.76-1.46 92-Zzt-720257:34 Thyroid Stim Hormone (TSH) Comments: [facility] [address] [place], [place], [address] TSH 0.86 {uIU/mL} (Normal) Range: 0.358-3.74 6-Sxj-980236:55 Basic Metabolic Profile (BMP) Comments: [facility] [address] [place], [place], [address] ; jesus alberto fernandes GAP 10 (Normal) [...] <126 mg/dLsuggests IMPAIRED HOMEOSTASIS per A.D.A. criteria. 0-Wcn-004420:55 CBC W/Diff, Automated Comments: [facility] [address]csaq[address] [place], [place], [address] Absolute Lymph 3.21 {X10_3/ul} (Normal) Range: 0.83-4.51 [...] 4.2-5.4 WBC 8.0 K/mm3 (Normal) Range: 4.4-11.0 25-Toc-332076:28 Microscopic Examination Comments: PATIENT NOT FASTINGPERFORMED BY: [facility]mEthicsGr[facility] [id number] Bacteria Few (Normal) Mucus Threads Present (Normal) Epithelial Cells (non renal) 0-10 {/hpf} (Normal) Range: 0 - 10 RBC 11-30 {/hpf} (Abnormal) Range: 0 - 2 WBC 11-30 {/hpf} (Abnormal) Range: 0 - 5 11-Aep-376749:28 MICROALBUMIN: CREATININE RATIO Comments: PATIENT NOT FASTINGPERFORMED BY: [employer] [facility]Sh[facility] [id number] (79871) AND (80677) Microalb/Creat Ratio 3121.4 {mg/g_creat} (Abnormal) Range: 0.0-30.0 Microalbumin, Urine 2728.1 ug/mL (Normal) Comments: Results confirmed ondilution. Creatinine, Urine 87.4 mg/dL (Normal) 80-Goz-158381:28 URINALYSIS (77531) Comments: PATIENT NOT FASTINGPERFORMED BY: [employer] EdeniQ [facility] [id number] Microscopic Examination See below: (Normal) Comments: Microscopic was indicated and was performed. Nitrite, Urine Negative (Normal) Urobilinogen,Semi-Qn 0.2 mg/dL (Normal) Range: 0.2-1.0 Bilirubin Negative (Normal) Occult Blood 2+ (Abnormal) Ketones Negative (Normal) Glucose Negative (Normal) Protein 3+ (Abnormal) WBC Esterase 1+ (Abnormal) Appearance Clear (Normal) Urine-Color Yellow (Normal) pH 6.5 (Normal) Range: 5.0-7.5 Specific Boron 1.014 (Normal) Range: 1.005-1.030 09-Gwx-621421:33 Urinalysis, Complete Comments: Order Date: 06/20/17Has pt arrived? YHow was Urine Obtained? CLEAN [facility] [address]ptnk[address] [place], [place], [address] HYALINE CAST 0-5 SEEN {/lpf} (Normal) Range: [...] (Normal) CLARITY Clear (Normal) COLOR Straw (Normal) 48-Alw-397041:42 Basic Metabolic Profile (BMP) Comments: [facility] [address]cf[address]nzl[address] [place], [place], [address] GAP 14 (Normal) Range: 5-15 CO2 22.0 [...] 126 mg/dLsuggests DIABETES MELLITUS per A.D.A. criteria. 78-Xie-577333:42 CBC W/Diff, Automated Comments: [facility] R[address]xtaxj[address] [place], [place], [address] Absolute Lymph 2.82 {X10_3/ul} (Normal) Range: 0.83-4.51 [...] (Normal) Range: 4.4-11.0 :18 HgA1C , Office (04511) HgA1C , Office 6.4 % (Normal) Range: 4.6 - 7.1 :18 Blood Glucose , Office (23400) Blood Glucose , Office 173 (Normal) 5-Zjd-457776:20 Urine Culture,Comprehensive Comments: PERFORMED BY: [facility] Pgeqtr5942 [facility] [id number] Information: SRC:UR Antimicrobial MIHEAD (Normal) Comments: S [...] mL (Abnormal) Urine Final report Culture,Comprehensive (Abnormal) 50-Mru-865659:14 Basic Metabolic Profile (BMP) Comments: [facility] [address]csx[address] [place], [address] GAP 14 (Normal) Range: 5-15 CO2 20.0 [...] 126 mg/dLsuggests DIABETES MELLITUS per A.D.A. criteria. 2-Uaj-820987:15 URINE FAVIAN CULTURE-IDENTIFICATN Comments: PATIENT NOT FASTINGPERFORMED BY: [facility] Yszvla7744 [facility] [id number] Information: SRC:ARNOLD (25623) Antimicrobial MIHEAD (Normal) Comments: S = Susceptible; [...] mL (Abnormal) Urine Final report Culture,Comprehensive (Abnormal) 1-Nxc-755139:19 Urinalysis, Office (08808) UA - LEUKOCYTE ESTERASE Moderate (Normal) UA - NITRITE Negative (Normal) URINE UROBILINGN KEERTHI TIMED Normal mg/dL (Normal) UA - PROTEIN 300 mg/dL (Normal) UA - PH 6 (Abnormal) UA - BLOOD Hemolyzed Trace (Normal) UA - SPECIFIC GRAVITY 1.025 (Normal) UA - KETONES Negative mg/dL (Normal) UA - BILIRUBIN Negative (Normal) UA - GLUCOSE Negative (Normal) 29-Vll-399807:31 Urinalysis, Office (67060) UA - LEUKOCYTE ESTERASE Negative (Normal) UA - NITRITE Negative (Normal) URINE UROBILINGN KEERTHI TIMED Normal mg/dL (Normal) UA - PROTEIN 300 mg/dL (Normal) UA - PH 6 (Abnormal) UA - BLOOD Negative (Normal) UA - SPECIFIC GRAVITY 1.015 (Normal) UA - KETONES Negative mg/dL (Normal) UA - BILIRUBIN Negative (Normal) UA - GLUCOSE Negative (Normal) 41-Jnj-368410:47 URINE FAVIAN CULTURE-IDENTIFICATN Comments: PATIENT NOT FASTINGPERFORMED BY: RENARD [facility] Cpdlvq1842 [facility] [id number] Information: SRC:ARNOLD (18346) Result 1 BETAGB (Abnormal) Comments: Beta hemolytic [...] (CLSI 2011) Urine Final report (Abnormal) Culture,Comprehensive 07-Fra-14020:50 Urinalysis, Complete Comments: How was Urine Obtained? CATHETER SPECIMENWUniversity Hospitals Geauga Medical Center [address]tqexys[address] [place], [address] MUCUS, URINE 0 SEEN {/hpf} (Normal) BACTERIA [...] Straw (Normal) :25 CBC W/Diff, Automated Comments: [facility] Qhrdndkknl[address] [place], [address] Absolute Lymph 2.00 {X10_3/ul} (Normal) [...] 4.2-5.4 WBC 4.6 K/mm3 (Normal) Range: 4.4-11.0 77-Jnw-31340:25 Comprehensive Metabolic Profil Comments: 'TROP' Serial specimen #1, #2, #3, or #4: 1WUniversity Hospitals Geaug[facility] Medical Center [address]vlviuqwn[address] [place], [address] GAP 7 (Normal) Range: 5-15 [...] A.D.A. criteria. :25 Partial Thromboplast Time Comments: [facility] [address] [place], [address] PTT 54.7 s (Abnormal) Range: 24.1-36.2 :25 Prothrombin Time w/INR Comments: [facility] [address] [place], [address] INR 1.0 (Normal) PROTIME 13.2 s (Normal) Range: 11.7-14.9 :25 Troponin-I Comments: 'TROP' Serial specimen #1, #2, #3, or #4: 1WUniversity Hospitals [facility]aug[facility] Medical Center Mohpnqrrek4[address] [place], [address] TROPONIN-I < 0.02 ng/mL (Normal) Comments: TROPONIN-I EXPECTED VALUES <0.05 NEGATIVE 0.06 - 0.59 AT RISK OF OK > OR = 0.60 SUGGEST OK :23 Bedside Glucose Comments: [facility] LaboratoryPoint of Nhov[address] [place] [address] BEDSIDE GLU 129 mg/dL (Abnormal) Range: 70-110 Comments: Dr Gemma FelderMANAGEMENT OF PATIENT CARE PER NURSING PROTOCOL :42 Microscopic Examination Comments: PATIENT NOT FASTINGPERFORMED BY: AirPOS [facility] [id number] BY: DIY Genius[address] [id number] Bacteria Few (Normal) Mucus Threads Present (Normal) Cast Type Hyaline casts (Normal) Casts Present {/lpf} (Abnormal) Epithelial Cells (non renal) 0-10 {/hpf} (Normal) Range: 0 - 10 RBC >30 {/hpf} (Abnormal) Range: 0 - 2 WBC 0-5 {/hpf} (Normal) Range: 0 - 5 :42 CCP ANTIBODY (91689) Comments: PATIENT NOT FASTINGPERFORMED BY: AirPOS [facility] [id number] BY: [employer] [id number] CCP Antibodies IgG/IgA <1 {units} (Normal) Range: 0-19 Comments: Negative <20 Weak positive 20 - 39 Moderate positive 40 - 59 Strong positive >59 :42 RHEUMATOID FACTOR-QUAL Comments: PATIENT NOT FASTINGPERFORMED BY: AirPOS [facility] [id number] BY: [employer] [id number] (16272) RA Latex Turbid. <10.0 {IU/mL} (Normal) Range: 0.0-13.9 :42 C-Reactive Protein (44370) Comments: PATIENT NOT FASTINGPERFORMED BY: [place] [address]4870 [facility] [id number] BY: [address] [id number] C-Reactive Protein, Quant 2.5 mg/L (Normal) Range: 0.0-4.9 :42 SED RATE ERYTHROCYTE Comments: PATIENT NOT FASTINGPERFORMED BY: [place] 4384870 [facility] [id number] BY: [address] [id number] (46918) Sedimentation Rate-Westergren 44 mm/h (Abnormal) Range: 0-40 :42 URIC ACID BLOOD (12307) Comments: PATIENT NOT FASTINGPERFORMED BY: [place] 4384870 [facility] [id number] BY: [address] [id number] Uric Acid, Serum 8.5 mg/dL (Abnormal) Range: 2.5-7.1 Comments: Therapeutic target for gout patients: <6.0 :42 Metabolic Panel, Comments: PATIENT NOT FASTINGPERFORMED BY: LabJillian Ville 2741170 [facility] [id number] BY: [address] [id number] Comprehensive (52442) ALT (SGPT) <5 [iU]/L (Normal) Range: 0-32 [...] MICROALBUMIN: CREATININE Comments: PATIENT NOT FASTINGPERFORMED BY: UGO Networks EdeniQ [facility] [id number] BY: [employer] [id number] RATIO (39847) AND (20136) Microalb/Creat Ratio 1390.9 {mg/g_creat} (Abnormal) Range: 0.0-30.0 Microalbumin, Urine 948.6 ug/mL (Normal) Comments: Results confirmed ondilution. Creatinine, Urine 68.2 mg/dL (Normal) :42 URINALYSIS (34635) Comments: PATIENT NOT FASTINGPERFORMED BY: DIY GeniusRobert Wood [facility] SomersetCocnga1608 [facility] [id number] BY: DIY [employer]ius[address] [id number] Microscopic Examination See below: (Normal) Comments: Microscopic was indicated and was performed. Nitrite, Urine Negative (Normal) Urobilinogen,Semi-Qn 0.2 mg/dL (Normal) Range: 0.2-1.0 Bilirubin Negative (Normal) Occult Blood 3+ (Abnormal) Ketones Negative (Normal) Glucose Negative (Normal) Protein 3+ (Abnormal) WBC Esterase Negative (Normal) Appearance Clear (Normal) Urine-Color Yellow (Normal) pH 6.0 (Normal) Range: 5.0-7.5 Specific Boron 1.019 (Normal) Range: 1.005-1.030 48-Llj-93868:42 CBC, Platelets & Auto Comments: PATIENT NOT FASTINGPERFORMED BY: CB [facility] Abbmig2002 [facility] [id number] BY: BN [facility] [address] [id number] Diff (12761) Immature Grans (Abs) 0.0 {x10E3/uL} (Normal) Range: [...] Range: 3.4-10.8 :32 Rapid Strep Test, Office (23684) Rapid Strep Test, Office Negative (Normal) :28 Microscopic Examination Comments: PATIENT WAS FASTINGPERFORMED BY: [employer] acquired by [employer] [facility]in [place] [id number] Bacteria Few (Normal) Mucus Threads Present (Normal) Epithelial Cells (non renal) 0-10 {/hpf} (Normal) Range: 0 - 10 RBC 0-2 {/hpf} (Normal) Range: 0 - 2 WBC 0-5 {/hpf} (Normal) Range: 0 - 5 :28 CALCIFIDIOL (61981) VIT D 25 Comments: PATIENT WAS FASTINGPERFORMED BY: LegalSherpa6370 [facility] [id number] Vitamin D, 25-Hydroxy 42.0 ng/mL (Normal) Range: 30.0-100.0 Comments: Vitamin D deficiency has been defined by the [place] [facility] and an Endocrine Society practice guideline as alevel of serum 25-OH vitamin D less than 20 ng/mL (1,2).The Endocrine Society went on to further define vitamin Dinsufficiency as a level between 21 and 29 ng/mL (2).1. IOM ([place] of Medicine). 2010. Dietary reference intakes for calcium and D. [place]: The National Academies Press.2. Swathi MF, Alexandra NC, Judy OLMEDO, et al. Evaluation, treatment, and prevention of vitamin D deficiency: an Endocrine Society clinical practice guideline. JCEM. 2010; 96(7):1911-30. :28 TSH (80985) Comments: PATIENT WAS FASTINGPERFORMED BY: [employer] Nhmgxb2526 [address] [facility] [place] [id number] TSH 1.360 {uIU/mL} (Normal) Range: 0.450-4.500 :28 URINALYSIS, W/ MICRO (14417) Comments: PATIENT WAS FASTINGPERFORMED BY: [employer] Ncexsy2503 [facility] [id number] Microscopic Examination See below: (Normal) Comments: Microscopic was indicated and was performed. Nitrite, Urine Negative (Normal) Urobilinogen,Semi-Qn 0.2 mg/dL (Normal) Range: 0.2-1.0 Bilirubin Negative (Normal) Occult Blood Trace (Abnormal) Ketones Negative (Normal) Glucose Negative (Normal) Protein 4+ (Abnormal) WBC Esterase Negative (Normal) Appearance Clear (Normal) Urine-Color Yellow (Normal) pH 6.0 (Normal) Range: 5.0-7.5 Specific Boron 1.019 (Normal) Range: 1.005-1.030 :28 MICROALBUMIN: CREATININE RATIO Comments: PATIENT WAS FASTINGPERFORMED BY: [employer] Tupave6313 [facility] [id number] (94031) AND (71168) Microalb/Creat Ratio 2972.2 {mg/g_creat} (Abnormal) Range: 0.0-30.0 Microalbumin, Urine 2264.8 ug/mL (Normal) Comments: Results confirmed ondilution. Creatinine, Urine 76.2 mg/dL (Normal) :28 METABOLIC PANEL, COMPREHENSIVE Comments: PATIENT WAS FASTINGPERFORMED BY: [employer] Gibzzn4556 [facility] [id number] (57014) ALT (SGPT) <5 [iU]/L (Normal) Range: 0-32 [...] Glucose, Serum 103 mg/dL (Abnormal) Range: 65-99 2-Bvq-138135:28 LIPID PANEL (05124) Comments: PATIENT WAS FASTINGPERFORMED BY: [facility]6370 [facility] [id number] VLDL Cholesterol Luis VLDLCH mg/dL (Normal) Range: [...] Range: 100-199 :28 CBC W/AUTO DIFF WBC (80154) Comments: PATIENT WAS FASTINGPERFORMED BY: [facility] Pezvji5[address] [facility] [id number] Immature Grans (Abs) 0.0 {x10E3/uL} (Normal) Range: [...] (Normal) Range: 3.4-10.8 :05 HgA1C , Office (50359) HgA1C , Office 6.2 % (Normal) Range: 4.6 - 7.1 :05 Blood Glucose , Office (15019) Blood Glucose , Office 119 (Normal) :09 Basic Metabolic Profile (BMP) Comments: [facility] [address]oywtigvh[address] [place], [place], [id number] GAP 10 (Normal) Range: 5-15 CO2 26.0 [...] <126 mg/dLsuggests IMPAIRED HOMEOSTASIS per A.D.A. criteria. [id number] Basic Metabolic Profile (BMP) Comments: [facility] [id number] [facility]. [place], [place], [id number] GAP 6 (Normal) Range: 5-15 CO2 28.0 [...] (Normal) Range: 4.5-5.6 Comments: Performed at: - Lab[address] [id number] Director: Hernesto Mclean PhD, Phone: [phone] [id number] Protein Electro.Ur-Random Comments: [facility] (refer to report for specific site)refer to report for address and phone number M-SPIKE,U (Normal) Comments: NOT OBSERVED GAMMA GLOB,U 6.5 % (Normal) BETA GLOB,U 9.7 % (Normal) IQXHP-3-URUV,U 2.6 % (Normal) XVSRK-4-SVMV,U 2.8 % (Normal) ALBUMIN,UR 78.4 % (Normal) PROTEIN,UR 121.4 mg/dL (Abnormal) Range: 0.0-15.0 :21 Protein Electroph, S Comments: [facility] (refer to report for specific site)refer to report for address and phone number NOTE Comment (Normal) Comments: Protein electrophoresis scan will follow via computer,mail, or blood bank technologist delivery. NOTE: Comment (Normal) Comments: The SPE pattern appears essentially unremarkable. Evidenceof monoclonal protein is not apparent. INTERPRETATION Comment (Normal) Comments: Protein electrophoresis scan will follow via computer,mail, or blood bank technologist delivery. A/G RATIO 1.0 (Normal) Range: 0.7-2.0 [...] Range: 6.0-8.5 :28 CBC W/Diff, Automated Comments: [facility] [address] [place], [place], [id number] Absolute Lymph 1.84 {X10_3/ul} (Normal) Range: 0.83-4.51 [...] Range: 4.4-11.0 :28 Comprehensive Metabolic Profil Comments: [facility] [address] [place], [address] GAP 10 (Normal) Range: 5-15 CO2 28.0 [...] per A.D.A. criteria. :28 Hemoglobin A1c Comments: [facility] [address] [place], [address] HGB A1C 6.3 % (Normal) Range: 4.2-6.3 :28 Lipid Profile Comments: [facility] [address] [place], [address] VLDL Test not performed mg/dL [...] High Risk :28 Microalb:Creat Ratio,Random UR Comments: [facility] [address] [place], [place], [id number] MALB:CREAT 6612.5 {mg/g_CRE} (Abnormal) MICROALBUMIN,UR 2850.0 mg/L (Normal) UR CREAT 43.10 mg/dL (Normal) :28 Thyroid Stim Hormone (TSH) Comments: [facility] [address] [place], [address] TSH 2.14 {uIU/mL} (Normal) Range: 0.358-3.74 :28 Urinalysis, Complete Comments: How was Urine Obtained? [facility] [address] [place], [address] MUCUS, URINE 0 SEEN {/hpf} [...] (Prothrobim Time) Comments: PATIENT NOT FASTINGPERFORMED BY: [address] [id number] Information: [id number],2ND ORDER (09929) Prothrombin Time 14.9 {sec} (Abnormal) Range: 9.1-12.0 INR 1.4 (Abnormal) Range: 0.8-1.2 Comments: Reference interval is for non-anticoagulated patients. . Suggested INR therapeutic range for Vitamin K anta gonist therapy: Standard Dose (moderate intensity therapeutic range): 2.0 - 3.0 Higher intensity therapeutic range 2.5 - 3.5 :59 PT (Prothrobim Time) Comments: PATIENT NOT FASTINGPERFORMED BY: [place] [address] [facility] [id number] Information: [id number] (55717) Prothrombin Time 37.7 {sec} (Abnormal) Range: 9.1-12.0 INR 3.4 (Abnormal) Range: 0.8-1.2 Comments: Reference interval is for non-anticoagulated patients. . Suggested INR therapeutic range for Vitamin K anta gonist therapy: Standard Dose (moderate intensity therapeutic range): 2.0 - 3.0 Higher intensity therapeutic range 2.5 - 3.5 :08 HgA1C , Office (08577) HgA1C , Office 6.2 % (Normal) Range: 4.6 - 7.1 :08 Blood Glucose , Office (85971) Blood Glucose , Office 126 (Normal) :42 Microscopic Examination Comments: PATIENT WAS FASTINGPERFORMED BY: [place] [address] [facility] [id number] Bacteria Few (Normal) Mucus Threads Present (Normal) Epithelial Cells (non renal) 0-10 {/hpf} (Normal) Range: 0 - 10 RBC 0-2 {/hpf} (Normal) Range: 0 - 2 WBC 0-5 {/hpf} (Normal) Range: 0 - 5 64-Xou-273390:42 MICROALBUMIN: CREATININE RATIO Comments: PATIENT WAS FASTINGPERFORMED BY: [employer] [facility] [id number] (00903) AND (34741) Microalb/Creat Ratio 1877.3 {mg/g_creat} (Abnormal) Range: 0.0-30.0 Microalbumin, Urine 1118.9 ug/mL (Abnormal) Range: 0.0-17.0 Creatinine, Urine 59.6 mg/dL (Normal) Range: 15.0-278.0 55-Pnx-373432:42 URINALYSIS (33445) Comments: PATIENT WAS FASTINGPERFORMED BY: DIY GeniusEastern New Mexico Medical CenterLzhjhw9974 [facility] [id number] Microscopic Examination See below: (Normal) Comments: Microscopic was indicated and was performed. Nitrite, Urine Negative (Normal) Urobilinogen,Semi-Qn 0.2 mg/dL (Normal) Range: 0.0-1.9 Bilirubin Negative (Normal) Occult Blood Negative (Normal) Ketones Negative (Normal) Glucose Negative (Normal) Protein 2+ (Abnormal) WBC Esterase Negative (Normal) Appearance Clear (Normal) Urine-Color Yellow (Normal) pH 6.0 (Normal) Range: 5.0-7.5 Specific Boron 1.020 (Normal) Range: 1.005-1.030 08-Erd-497777:42 TSH (64587) Comments: PATIENT WAS FASTINGPERFORMED BY: DIY GeniusRobert Wood Johnson [facility] Hospital SomersetTzfrme6926 [facility] [id number] TSH 1.590 {uIU/mL} (Normal) Range: 0.450-4.500 16-Dbr-149020:42 CBC, Platelets & Auto Comments: PATIENT WAS FASTINGPERFORMED BY: [facility]6[address] [facility] [id number] Information: [id number] Diff (56077) Immature Grans (Abs) 0.0 {x10E3/uL} (Normal) Range: [...] 3.77-5.28 WBC 5.4 {x10E3/uL} (Normal) Range: 3.4-10.8 22-Dma-670827:42 Metabolic Panel, Comprehensive Comments: PATIENT WAS FASTINGPERFORMED BY: [facility]CoRobert [facility] Hospital SomersetEthtqu2763 [facility] [id number] (86963) ALT (SGPT) 3 [iU]/L (Normal) Range: 0-32 [...] Glucose, Serum 94 mg/dL (Normal) Range: 65-99 24-Pdp-911767:42 Lipid Panel (51515) Comments: PATIENT WAS FASTINGPERFORMED BY: Sonda4170 [facility] InteractiveCritical [facility] hospital [id number] LDL/HDL Ratio 0.7 {ratio_units} (Normal) Range: 0.0-3.2 LDL Cholesterol Calc 25 mg/dL (Normal) Range: 0-99 VLDL Cholesterol Luis 77 mg/dL (Abnormal) Range: 5-40 HDL Cholesterol 36 mg/dL (Abnormal) Comments: According to ATP-III Guidelines, HDL-C >59 mg/dL is considered anegative risk factor for CHD. Triglycerides 387 mg/dL (Abnormal) Range: 0-149 Cholesterol, Total 138 mg/dL (Normal) Range: 100-199 41-Cuo-903735:42 CALCIFEDIOL (49538) Comments: PATIENT WAS FASTINGPERFORMED BY: CosmEthicsGr[facility]ville [facility] Center [id number] Vitamin D, 25-Hydroxy 34.5 ng/mL (Normal) Range: 30.0-100.0 Comments: Vitamin D deficiency has been defined by the [place] ofMedicine and an Endocrine Society practice guideline as alevel of serum 25-OH vitamin D less than 20 ng/mL (1,2).The Endocrine Society went on to further define vitamin Dinsufficiency as a level between 21 and 29 ng/mL (2).1. IOM ([place] of Medicine). 2010. Dietary reference intakes for calcium and D. [place]: The National Academies Press.2. Swathi MF, Alexandra MCGILL, Judy OLMEDO, et al. Evaluation, treatment, and prevention of vitamin D deficiency: an Endocrine Society clinical practice guideline. JCEM. 2010; 96(7):1911-30. 42-Aga-879152:08 PT (Prothrobim Time) Comments: PATIENT NOT FASTINGPERFORMED BY: [employer]Co Sjzecj2745 Wave - Private Location AppColumbus Regional Healthcare Systemin [place] [id number] Information: [id number] (19523) Prothrombin Time 19.4 {sec} (Abnormal) Range: 9.1-12.0 INR 1.9 (Abnormal) Range: 0.8-1.2 Comments: Reference interval is for non-anticoagulated patients. . Suggested INR therapeutic range for Vitamin K anta gonist therapy: Standard Dose (moderate intensity therapeutic range): 2.0 - 3.0 Higher intensity therapeutic range 2.5 - 3.5 69-Dnf-344007:19 Microscopic Examination Comments: PATIENT NOT FASTINGPERFORMED BY: [facility] Uitixm[address] [facility]in [place] [id number] Bacteria Few (Normal) Mucus Threads Present (Normal) Epithelial Cells (non renal) 0-10 {/hpf} (Normal) Range: 0 - 10 RBC >30 {/hpf} (Abnormal) Range: 0 - 3 WBC 0-5 {/hpf} (Normal) Range: 0 - 5 71-Brq-605660:26 TSH (67930) Comments: PATIENT NOT FASTINGPERFORMED BY: [facility] Zkskyh[address] SensAble TechnologiesDublin [place] [id number] TSH 1.050 {uIU/mL} (Normal) Range: 0.450-4.500 16-Zbr-549580:26 URINALYSIS, W/ MICRO (23013) Comments: PATIENT NOT FASTINGPERFORMED BY: [facility] Uvvrnl2828 [address] [facility] CenterDublin [place] [id number] Microscopic Examination See below: (Normal) Nitrite, Urine Negative (Normal) Urobilinogen,Semi-Qn 0.2 mg/dL (Normal) Range: 0.0-1.9 Bilirubin Negative (Normal) Occult Blood 3+ (Abnormal) Ketones Negative (Normal) Glucose Negative (Normal) Protein 1+ (Abnormal) WBC Esterase Negative (Normal) Appearance Clear (Normal) Urine-Color Yellow (Normal) pH 5.5 (Normal) Range: 5.0-7.5 Specific Boron 1.018 (Normal) Range: 1.005-1.030 49-Xwx-600303:26 MICROALBUMIN: CREATININE RATIO Comments: PATIENT NOT FASTINGPERFORMED BY: [employer] Fouutu4115 [address] [facility] [id number] (69793) AND (23212) Microalb/Creat Ratio 524.7 {mg/g_creat} (Abnormal) Range: 0.0-30.0 Microalbumin, Urine 342.1 ug/mL (Abnormal) Range: 0.0-17.0 Creatinine, Urine 65.2 mg/dL (Normal) Range: 15.0-278.0 53-Kjh-027186:26 METABOLIC PANEL, COMPREHENSIVE Comments: PATIENT NOT FASTINGPERFORMED BY: [employer] Kzdeec2607 [address] [facility] [id number] (32149) ALT (SGPT) <5 [iU]/L (Normal) Range: 0-32 [...] Glucose, Serum 74 mg/dL (Normal) Range: 65-99 96-Ozr-252708:26 LIPID PANEL (50307) Comments: PATIENT NOT FASTINGPERFORMED BY: DIY GeniusEastern New Mexico Medical CenterUmbmoa3327 [facility] [id number] LDL/HDL Ratio 1.1 {ratio_units} (Normal) Range: 0.0-3.2 LDL Cholesterol Calc 46 mg/dL (Normal) Range: 0-99 VLDL Cholesterol Luis 72 mg/dL (Abnormal) Range: 5-40 HDL Cholesterol 41 mg/dL (Normal) Comments: According to ATP-III Guidelines, HDL-C >59 mg/dL is considered anegative risk factor for CHD. Triglycerides 362 mg/dL (Abnormal) Range: 0-149 Cholesterol, Total 159 mg/dL (Normal) Range: 100-199 27-Pwy-807021:26 CBC WITH MANUAL DIFF Comments: PATIENT NOT FASTINGPERFORMED BY: DIY GeniusRobert Wood Johnson [facility] Hospital SomersetQfezjn4631 [facility] [id number] Information: [id number] (08013) Immature Grans (Abs) 0.0 {x10E3/uL} (Normal) Range: [...] 3.77-5.28 WBC 4.3 {x10E3/uL} (Normal) Range: 3.4-10.8 :26 Vitamin D Hydroxy (59049) Comments: PATIENT NOT FASTINGPERFORMED BY: LabCoRobert Wood Johnson [facility] Hospital SomersetVrgshs5025 [facility] [id number] Vitamin D, 25-Hydroxy 37.9 ng/mL (Normal) Range: 30.0-100.0 Comments: Vitamin D deficiency has been defined by the [place] ofC[facility] Generalcine and an Endocrine Society practice guideline as alevel of serum 25-OH vitamin D less than 20 ng/mL (1,2).The Endocrine Society went on to further define vitamin Dinsufficiency as a level between 21 and 29 ng/mL (2).1. IOM ([place] of Medicine). 2010. Dietary reference intakes for calcium and D. [place]: The National Academies Press.2. Swathi MF, Alexandra MCGILL, Judy OLMEDO, et al. Evaluation, treatment, and prevention of vitamin D deficiency: an Endocrine Society clinical practice guideline. JCEM. 2010; 96(7):1911-30. :01 HgA1C , Office (18420) HgA1C , Office 5.9 % (Normal) Range: 4.6 - 7.1 :01 Blood Glucose , Office (61279) Blood Glucose , Office 92 (Normal) :07 HgA1C , Office (85465) HgA1C , Office 5.6 % (Normal) Range: 4.6 - 7.1 :07 Blood Glucose , Office (07213) Blood Glucose , Office 79 (Normal) :41 Vitamin D Hydroxy (01309) Comments: PATIENT WAS FASTINGPERFORMED BY: DIY GeniusRobert Wood Johnson [facility] Hospital SomersetUkuxzd7290 [facility] [id number] Vitamin D, 25-Hydroxy 50.7 ng/mL (Normal) Range: 30.0-100.0 Comments: Vitamin D deficiency has been defined by the [place] ofMedicine and an Endocrine Society practice guideline as alevel of serum 25-OH vitamin D less than 20 ng/mL (1,2).The Endocrine Society went on to further define vitamin Dinsufficiency as a level between 21 and 29 ng/mL (2).1. IOM ([place] of Medicine). 2010. Dietary reference intakes for calcium and D. [place]: The National Academies Press.2. Swathi MF, Alexandra [place], Judy OLMEDO, et al. Evaluation, treatment, and prevention of vitamin D deficiency: an Endocrine Society clinical practice guideline. JCEM. 2010; 96(7):1911-30. :41 LIPID PANEL (23690) Comments: PATIENT WAS FASTINGPERFORMED BY: LabMymich[facility]6[address] [facility] [id number] Information: [id number] LDL Cholesterol Calc 81 mg/dL (Normal) Range: 0-99 LDL/HDL Ratio 1.9 {ratio_units} (Normal) Range: 0.0-3.2 HDL Cholesterol 42 mg/dL (Normal) Comments: According to ATP-III Guidelines, HDL-C >59 mg/dL is considered anegative risk factor for CHD. Triglycerides 210 mg/dL (Abnormal) Range: 0-149 VLDL Cholesterol Luis 42 mg/dL (Abnormal) Range: 5-40 Cholesterol, Total 165 mg/dL (Normal) Range: 100-199 15-Xeg-894008:47 BILAT SCRN DIGITAL & CAD Radiology Report [...] Kebede M.D.July 29, 2012 at 12:51:04 PM [phone] Signed GP/GP If you are the referring physician and would like to consult andry dupree theradiologist who provided this interpretation, please contact Dana Lopez at [phone]. If this radiologist is unavailable, youwill be directed to another radiologist to assist. If yo u are a patient with a question regarding this report, pleasecontactyour referring physician directly. Professional Interpretation Provided By: [facility] [employer] [facility], Phone , These d ocuments contain legally [...] documents. Dictated on 07/29/12 1147 by Yandy LAMAR,Lucranscribed on 07/29/12 1255 by ITS IMPORTSign by Yandy LAMAR,Paresh on 07/29/12 1256 Sign by: Paersh Kebede MD 74-Efk-202136:38 HgA1C , Office (82640) HgA1C , Office 5.7 % (Normal) Range: 4.6 - 7.1 69-Wnh-404419:38 Blood Glucose , Office (36814) Blood Glucose , Office 91 (Normal) 21-Rnv-039609:06 LIPID PANEL (21191) Comments: PATIENT WAS FASTINGPERFORMED BY: DIY GeniusRobert Wood Johnson [facility] Hospital SomersetKubkwi5233 [facility] [id number] Information: [id number] LDL/HDL Ratio 1.5 {ratio_units} (Normal) Range: 0.0-3.2 [...] (Prothrobim Time) Comments: PATIENT NOT FASTINGPERFORMED BY: LabCoRobert [facility] SomersetSuibps2466 [facility] [id number] Information: [id number],2ND ORDER NO DRAW F EE (37406) Prothrombin Time 21.7 {sec} (Abnormal) Range: 9.1-12.0 INR 2.1 (Abnormal) Range: 0.8-1.2 Comments: Reference interval is for non-anticoagulated patients. . Suggested INR therapeutic range for Vitamin K anta gonist therapy: Standard Dose (moderate intensity therapeutic range): 2.0 - 3.0 Higher intensity therapeutic range 2.5 - 3.5 60-Myz-030218:06 PT (Prothrobim Time) Comments: PATIENT NOT FASTINGPERFORMED BY: RENARD [facility] Xsqonq[address] [place] [place] [id number] Information: [id number],2ND ORDER NO DRAW F EE (49547) Prothrombin Time 34.8 {sec} (Abnormal) Range: 9.1-12.0 INR 3.4 (Abnormal) Range: 0.8-1.2 Comments: Reference interval is for non-anticoagulated patients. . Suggested INR therapeutic range for Vitamin K anta gonist therapy: Standard Dose (moderate intensity therapeutic range): 2.0 - 3.0 Higher intensity therapeutic range 2.5 - 3.5 :51 Urinalysis, Office (64409) UA - BILIRUBIN Negative (Normal) UA - [...] (Abnormal) Range: 11.9-14.4 :01 HgA1C , Office (63616) HgA1C , Office 6.0 % (Normal) Range: 4.6 - 7.1 :01 Blood Glucose , Office (46747) Blood Glucose , Office 90 (Normal) :14 [...] D deficiency has been defined by the [place] ofMedicine and an Endocrine Society practice guideline as alevel of serum 25-OH vitamin D less than 20 ng/mL (1,2).The Endocrine Society went on to further define vitamin Dinsufficiency as a level between 21 and 29 ng/mL (2).1. IOM ([place] of Medicine). 2010. Dietary reference intakes for calcium and D. [place]: The National Academies Press.2. Swathi MF, Alexandra [place], Judy OLMEDO, et al. Evaluation, treatment, and prevention of vitamin D deficiency: an Endocrine Society clinical practice guideline. JCEM. 2010; 96(7): 1911-30.Performed at: [facility] [address] [id number] Director: Gloria Patton MD, Phone: [phone] 73-Ett-901631:13 PROT.[id number] NOTE Comment (Normal) Comments: Protein electrophoresis scan will follow via computer,mail, or blood bank technologist delivery.Performed at: [facility] [address] [place] [address] [id number] Director: Gloria Patton MD, Phone: [phone] M-SPIKE,U SeeNote % (Normal) Comments: Result: Not Observed GAMMA GLOB,U 5.6 % (Normal) BETA GLOB,U 8.0 % (Normal) MBXGJ-3-QCGI,U 2.8 % (Normal) MQEQV-7-LBKJ,U 1.4 % (Normal) ALBUMIN,UR 82.2 % (Normal) PROTEIN,UR 91.6 mg/dL (Abnormal) Range: 0.0-15.0 :1 PTH,Intact 19 pg/mL (Normal) Range: 14-72 3 :13 SPE [id number] INTERPRETATION Comment (Normal) Comments: The SPE pattern reflects a polyclonal increase in gammaglobulin due to numerous clones of plasma cells producingheterogeneous antibody in response to some form ofantigenic stimulus. Hypergammaglob-ulin emia is found in awide variety of infectious, non-infectious, and autoimmunedisease states. Evidence of monoclonal protein is notapparent.Protein electrophoresis scan will follow via computer,mail, or blood bank technologist delivery. A/G RATIO 1.0 (Normal) Range: 0.7-2.0 [...] 4.2-5.4 WBC 4.3 K/mm3 (Abnormal) Range: 4.4-11.0 1-Wpk-653321:06 COMP METABOLIC GAP 7 (Normal) Range: 5-15 [...] 7-18 GLU 88 mg/dL (Normal) Range: 70-110 2-Fwj-302887:06 COMPLETE UA Comments: CRITICAL VALUE REPEATED AND VERIFIED. CALLED TO ECKERTY09/07/11 1153 AARON BHATIA.RESULTS READ BACK BY ELIZABETH [...] NEGATIVE CLARITY CLEAR (Normal) COLOR YELLOW (Normal) 3-Spj-452512:06 LIPID VLDL 59 mg/dL (Abnormal) Range: 5-40 [...] 200-240 mg/dL Borderline >240 mg/dL High Risk 9-Zao-460728:06 MICROALB:CRE UR MALB:CREAT 947.9 {mg/g_CRE} (Abnormal) MICROALBUMIN,UR 583.0 mg/L (Normal) UR CREAT 61.5 mg/dL (Normal) 3-Kar-210237:06 TSH 0.75 {uIU/mL} (Normal) Range: 0.358-3.74 :06 VIT D,25 20035 27.4 ng/mL (Abnormal) Range: 30.0-100.0 Comments: Vitamin D deficiency has been defined by the [place] ofMedicine and an Endocrine Society practice guideline as alevel of serum 25-OH vitamin D less than 20 ng/mL (1,2).The Endocrine Society went on to further define vitamin Dinsufficiency as a level between 21 and 29 ng/mL (2).1. IOM ([place] of Medicine). 2011. Dietary reference intakes for calcium and D. [place]: The National AcademC[employer] Press.2. Swathi MF, Alexandra NC, Judy OLMEDO, et al. Evaluation, treatment, and prevention of vitamin D deficiency: an Endocrine Society clinical practice guideline. JCEM. 2010; 96(7): 1911-30.Performed at: [address] [id number] Director: Gloria Patton MD, Phone: [phone] 79-Eit-189077:13 HgA1C , Office (96472) HgA1C , Office 6.0 % (Normal) Range: 4.6 - 7.1 39-Xtn-681059:13 Blood Glucose , Office (88474) Blood Glucose , Office 108 (Normal) 79-Gfl-18339:27 FAVIAN CULTURE-OTHER (41700) Comments: PATIENT NOT FASTINGPERFORMED BY: [address] [id number] Information: SRC:THRT ADD [id number] Result 1 RRF (Normal) Comments: Routine respiratory linette Upper Respiratory Culture Final report (Normal) 00-Hwl-21372:50 Rapid Strep Test, Office (84537) Rapid Strep Test, Office Negative (Normal) 57-Prn-365705:39 Microscopic Examination Comments: PATIENT WAS FASTINGPERFORMED BY: [address] [place] [id number] Bacteria Few (Normal) Mucus Threads Present (Normal) Epithelial Cells (non renal) 0-10 {/hpf} (Normal) Range: 0 - 10 RBC None seen {/hpf} (Normal) Range: 0 - 3 WBC 0-5 {/hpf} (Normal) Range: 0 - 5 :35 PT (PROTHROMBIN TIME) Comments: PATIENT NOT FASTINGPERFORMED BY: [facility] [facility] [id number] Information: [id number], 2ND ORDER NO DRAW FEE (76187) INR 4.8 (Abnormal) Range: 0.8-1.2 Comments: Client Requested Flag Reference interval is for non- anticoagulated patients. . Suggested INR therapeutic ra nge for Vitamin K antagonist therapy: Standard Dose (moderate intensity therapeutic range): 2.0 - 3.0 Higher intensity therapeutic range 2.5 - 3.5 Prothrombin Time 51.3 {sec} (Abnormal) Range: 8.7-11.5 :36 CALCIFIDIOL (98924) VIT D Comments: PATIENT NOT FASTINGPERFORMED BY: [facility] [facility] [id number] Information: [id number],2ND ODER NO DRAW FE E 25 Vitamin D, 25-Hydroxy 29.1 ng/mL (Abnormal) Range: 32.0-100.0 Comments: Recent studies consider the lower limit of 32.0 ng/mL to be athreshold for optimal health.Helder NIEVES. J Nutr. 2004;135(2):317-22. :52 Blood Glucose , Office (96158) Blood Glucose , Office 97 (Normal) :52 HgA1C , Office (15496) HgA1C , Office 5.7 % (Normal) Range: 4.6 - 7.1 :39 TSH (05564) Comments: PATIENT WAS FASTINGPERFORMED BY: [facility] [facility] [id number] TSH 0.741 {uIU/mL} (Normal) Range: 0.450-4.500 :39 URINALYSIS, W/ MICRO (25771) Comments: PATIENT WAS FASTINGPERFORMED BY: [employer] Yezrbr0214 [facility] [id number] Microscopic Examination See below: (Normal) Bilirubin Negative (Normal) Glucose Negative (Normal) Ketones Negative (Normal) Nitrite, Urine Negative (Normal) Occult Blood Negative (Normal) Protein 1+ (Abnormal) Urobilinogen,Semi-Qn 0.2 mg/dL (Normal) Range: 0.0-1.9 WBC Esterase Negative (Normal) Appearance Clear (Normal) pH 7.0 (Normal) Range: 5.0-7.5 Urine-Color Yellow (Normal) Specific Boron 1.018 (Normal) Range: 1.005-1.030 :39 MICROALBUMIN: CREATININE RATIO Comments: PATIENT WAS FASTINGPERFORMED BY: [employer] Jtciap5794 [facility] [id number] (71706) AND (21731) Microalb/Creat Ratio 273.8 {mg/g_creat} (Abnormal) Range: 0.0-30.0 Creatinine, Urine 74.9 mg/dL (Normal) Range: 15.0-278.0 Microalbumin, Urine 205.1 ug/mL (Abnormal) Range: 0.0-17.0 :39 METABOLIC PANEL, COMPREHENSIVE Comments: PATIENT WAS FASTINGPERFORMED BY: DIY GeniusRobert Wood Johnson [facility] Hospital SomersetGpsjjl7690 [facility] [id number] (46941) A/G Ratio 1.3 (Normal) Range: 1.1-2.5 Alkaline [...] Glucose, Serum 88 mg/dL (Normal) Range: 65-99 53-Vhp-671286:39 LIPID PANEL (01893) Comments: PATIENT WAS FASTINGPERFORMED BY: [employer]CoPanda GraphicsShriners Hospitals for Children [id number] LDL Cholesterol Calc 78 mg/dL (Normal) Range: 0-99 LDL/HDL Ratio 1.9 {ratio_units} (Normal) Range: 0.0-3.2 VLDL Cholesterol Luis 52 mg/dL (Abnormal) Range: 5-40 HDL Cholesterol 41 mg/dL (Normal) Comments: According to ATP-III Guidelines, HDL-C >59 mg/dL is considered anegative risk factor for CHD. Triglycerides 259 mg/dL (Abnormal) Range: 0-149 Cholesterol, Total 171 mg/dL (Normal) Range: 100-199 91-Tox-443148:39 CBC WITH MANUAL DIFF Comments: PATIENT WAS FASTINGPERFORMED BY: Sonda4170 [facility] [id number] Information: [id number] (10505) Immature Grans (Abs) 0.0 {x10E3/uL} Range: 0.0-0.1 [...] Plasma 23.2 pg/mL (Normal) Comments: PERFORMED BY: [facility] [facility] [id number] 3:06 Range: 7.2-63.3 Comments: ACTH reference interval for samples collected between 7 and 10 AM. 8-Uxl-618618:06 FSH, Serum Comments: PERFORMED BY: [facility] [place] [address] [id number] FSH 33.2 m[iU]/mL (Normal) Comments: Follicular phase 3.5 - 12.5 Ovulation phase 4.7 - 21.5 Luteal phase 1.7 - 7.7 Postmenopausal 25.8 - 134.8 :06 IGF-1 Comments: PERFORMED BY: [place] [address] [facility] [id number] Insulin-Like Growth Factor I 151 ng/mL (Normal) Range: 81-225 :06 Luteinizing Hormone(LH), S Comments: PERFORMED BY: [address] [id number] LH 23.4 m[iU]/mL (Normal) Comments: Follicular phase 2.4 - 12.6 Ovulation phase 14.0 - 95.6 Luteal phase 1.0 - 11.4 Postmenopausal 7.7 - 58.5 :06 Prolactin 3.7 ng/mL (Abnormal) Comments: PERFORMED BY: [facility] [facility] [id number] Range: 4.8-23.3 :06 Prothrombin Time (PT) Comments: PERFORMED BY: [place] [id number] [facility] [id number] Prothrombin Time 24.1 {sec} (Abnormal) Range: 8.7-11.5 INR 2.3 (Abnormal) Range: 0.8-1.2 Comments: Reference interval is for non-anticoagulated patients. . Suggested INR therapeutic range for Vitamin K anta gonist therapy: Standard Dose (moderate intensity therapeutic range): 2.0 - 3.0 Higher intensity therapeutic range 2.5 - 3.5 : TSH 0.865 {uIU/mL} Comments: PERFORMED BY: [address] [id number] 06 (Normal) Range: 0.450-4.500 :56 BILAT SCRN [...] IMPORTSign by Paresh Kebede MD on 10/31/10 121 Sign by: Paresh Kebede MD 29-Oct-20108:55 DEXA BONE DENSITY STUDY (HP) Radiology Report See Note (Normal) Comments: CLINICAL:Female, 60 years old. The patient is postmenopausal. EXAMINATION:DUAL ENERGY X-RAY ABSORPTIOMETRY / DEXA. TECHNIQUE:Bone Mineral Density (BMD) measurements of lumbar spine and bila teralhipswer e obtained using a [employer] scanner.. COMPARISON:Comparison is made with prior study [...] [email or web address] [email or web address] Dictated on 10/29/10 0904 by Luc Kebederanscribed on 10/29/10 1036 by ITS IMPORTSign by Paresh Kebede on 10/29/10 1037 Sign by: ___ Paresh Kebede 59-Gsl-359497:03 FECAL OCCULT HGB ASSAY- tubes sent home (01332) FECAL OCCULT HGB ASSAY, QUAL, 1-3 SIMULTANEOU negative (Normal) 91-Van-862045:59 Microscopic Examination Comments: PATIENT NOT FASTINGPERFORMED BY: ISVWorld6370 [facility]adosWandoujiaCritical access hospital [id number] Bacteria None seen (Normal) Mucus Threads Present (Normal) Cast Type Hyaline casts (Normal) Casts Present {/lpf} (Abnormal) Epithelial Cells (non renal) 0-10 {/hpf} (Normal) Range: 0 - 10 RBC 0-3 {/hpf} (Normal) Range: 0 - 3 WBC 0-5 {/hpf} (Normal) Range: 0 - 5 44-Thj-744873:57 Vitamin D Hydroxy Comments: PATIENT NOT FASTINGPERFORMED BY: [facility]6370 Tesseract InteractiveCritical access hospital [id number] Information: [id number] (59597) Vitamin D, 25-Hydroxy 32.6 ng/mL (Normal) Range: 32.0-100.0 Comments: Recent studies consider the lower limit of 32.0 ng/mL to be athreshold for optimal health.Helder NIEVES. J Nutr. 2004;135(2):317-22. 81-Jtr-062014:59 URINALYSIS, W/ MICRO Comments: PATIENT NOT FASTINGPERFORMED BY: UGO NetworksRobert [facility] SomersetDujxwh8964 [facility] [id number] Information: SRC: [id number] (05380) Microscopic Examination See below: (Normal) Nitrite, Urine Negative (Normal) Bilirubin Negative (Normal) Glucose Negative (Normal) Ketones Negative (Normal) Occult Blood Negative (Normal) Protein 1+ (Abnormal) Urobilinogen,Semi-Qn 0.2 mg/dL (Normal) Range: 0.0-1.9 WBC Esterase Negative (Normal) Appearance Clear (Normal) Urine-Color Yellow (Normal) pH 6.5 (Normal) Range: 5.0-7.5 Specific Boron 1.017 (Normal) Range: 1.005-1.030 :59 URINE FAVIAN CULTURE-KEERTHI COL Comments: PATIENT NOT FASTINGPERFORMED BY: NoWait LabCoParkerVision Ukhzta2[address] [facility] [id number] COUNT ([id number]) Result 1 MUG (Normal) Comments: Mixed urogenital flora10,000-25,000 colony forming units per mL Urine Final report (Normal) Culture,Comprehensive :53 HgA1C , Office (00526) HgA1C , Office 5.5 % (Normal) Range: 4.6 - 7.1 :53 Blood Glucose , Office (15323) Blood Glucose , Office 99 (Normal) :37 [...] (Normal) PROTIME 36.2 s (Abnormal) Range: 9.1-11.7 24-Jjz-253266:59 URINE FAVIAN CULTURE-KEERTHI COL Comments: PATIENT NOT FASTINGPERFORMED BY: CB [facility] Aavlvb3157 [facility] [id number] Information: SRC:UR [id number] COUNT (35631) Result 1 NG36 (Normal) Comments: No growth in 36 - 48 hours. Urine Culture,Comprehensive Final report (Normal) :44 Urinalysis, Office (93604) UA - BILIRUBIN Negative (Normal) UA - BLOOD Non Hemolyzed Trace (Normal) UA - GLUCOSE Negative (Normal) UA - KETONES Negative mg/dL (Normal) UA - LEUKOCYTE ESTERASE Small (Normal) UA - NITRITE Negative (Normal) UA - PH 8.0 (Normal) UA - PROTEIN 30 mg/dL (Normal) UA - SPECIFIC GRAVITY 1.015 (Normal) URINE UROBILINGN KEERTHI TIMED Normal mg/dL (Normal) 20-Mlx-45889:00 MRA HEAD WITHOUT CONTRAST Radiology Report See Note (Normal) Comments: CLINICAL:Gait abnormality MRA OF THE BRAIN TECHNIQUE:3-D bham-on-bdzvck (TOF) imaging was performed COMPARISON:MR of the [...] There is origi n of the right SPRING INTERN. The left posteriorcommunicatingartery is prominent, of similar caliber to the P1 segment of the leftPCA. Basilar artery is diminutive in caliber, likely on a developmental basisgive n the right SPRING INTERN and prominence of the left posteriorcommunicating artery. [...] vessel occlusion or hemodynamically significantstenosis. IMPRESSION:Essentially normal [place] without a demonstrated aneurysm orhemodynamically significant st enosis. Diffusely diminutive basilararterylikely developmental in nature. Focal narrowing of the mid basilararteryon the MIP images is thought likely artifactual upon review of thesourceMRA images. Dictated on 07/18/101550 by Mingo IsabelTranscribed on 07/18/101550 by EUGENIE THORPESign by Mingo Isabel on 07/19/10 2224 Sign by: ____ Mingo Isabel 32-Rvv-400770:23 BRAIN W/W/O CONTRAST Radiology Report See Note (Normal) Comments: Exam Number: [id number] LINICAL:60 year old female with unsteady gait, [...] Comments: PATIENT NOT FASTINGPERFORMED BY: RENARD [facility] Auqmeh[address] [place] [id number] Information: [id number] (06050) Prothrombin Time 20.6 {sec} (Abnormal) Range: 8.7-11.5 INR 1.9 (Abnormal) Range: 0.8-1.2 Comments: Reference interval is for non-anticoagulated patients. . Suggested INR therapeutic range for Vitamin K anta gonist therapy: Standard Dose (moderate intensity therapeutic range): 2.0 - 3.0 Higher intensity therapeutic range 2.5 - 3.5 :15 HgA1C , Office (75151) Comments: done HgA1C , Office 5.8 % (Normal) Range: 4.6 - 7.1 :15 Blood Glucose , Office (19339) Comments: done Blood Glucose , Office 118 (Normal) :05 HgA1C , Office (30685) HgA1C , Office 6.1 % (Normal) Range: 4.6 - 7.1 :05 Blood Glucose , Office (07718) Blood Glucose , Office 89 (Normal) :24 [...] DIABETES RISK MARKERS<--Insulin Sensitive Insulin Resistant-->Percentile in [facility] PopulationLarge VLDL-P Low 25th 50th 75th High<0.9 [...] {uIU/mL} (Normal) Range: 0.358-3.74 :24 VIT D,25 00174 39.9 ng/mL (Normal) Range: 32.0-100.0 Comments: Recent studies consider the lower limit of 32.0 ng/mL to kizzy threshold for optimal health.Helder NIEVES. J Nutr. 2004;135(2):317-22.Performed at: [facility] Tnv[address] [place] [id number] Director: Tony Steele PhD, Phone: [phone] at: [facility] LabCo[address] [id number] Director: Gloria Patton MD, Phone: [phone] :[phone] HgA1C , Office (35742) Comments: done km HgA1C , Office 5.9 % (Normal) Range: 4.6 - 7.1 :48 Blood Glucose , Office (59005) Comments: done km Blood Glucose , Office 106 (Normal) :54 PRO TIME INR 3.7 (Abnormal) Comments: RESULTS CALLED TO KRISTIAN AT DR WHITMAN'S HTUJTC24/21/10 MORENITA LEACH.REPORT READ BACK BY SAME . [...] (Normal) PROTIME 13.0 s (Abnormal) Range: 9.1-11.7 3-Ltr-907461:45 CBC HCT 37.0 % (Normal) Range: 37-47 [...] SCREEN GEL POSITIVE (Abnormal) Comments: SENT TO [facility] ON 09/05/09 PM SHIFT SCREEN CELL I 2+ (Abnormal) SCREEN CELL II 2+ (Abnormal) SCREEN CELL III 2+ (Abnormal) 5-Srn-887222:2 ANTIBODY PANEL WARM AUTOANTIBODY Comments: SURGERY? N 0 (Normal) Comments: Reactions suggestive of a warm autoantibody at [facility].Autologous adsorption of the patient's plasma with PEG [...] Report See Note (Normal) Comments: Exam Number: [id number] Procedure completed. Please see MEDICAL RECORDS reports in PCI -OP - OP NOTELET - LETTER. Reported By: PAOLA SOSA M.D. :10 PRO TIME INR 1.5 (Normal) PROTIME 15.8 s (Abnormal) Range: 9.1-11.7 88-Xik-821347:56 MYOCARD PERF SPECT REST/STRESS Radiology Report See Note (Normal) Comments: Exam Number: [id number] STRESS CARDIOLITE STUDY HISTORYThis is a 59-year-old [...] the patient was injected with 33 mCi nuAm86g Cardiolite and stress SPECT images were acquired [...] 1300; Secondarygoal: Small LDL-P < 527Performed At: O5SmwoWgmwwmz [address] [place], [place] [id number] LARGE HDL-P < 0.7 umol/L (Abnormal) LARGE [...] 1599High 1600 - 2000Very high > 2000. 77-Rch-510134:05 HgA1C , Office (73197) Comments: done km HgA1C , Office 7.3 % (Abnormal) Range: 4.6 - 7.1 28-Dfo-049155:05 Blood Glucose , Office (73612) Comments: done km Blood Glucose , Office 215 (Normal) 13-Agk-870937:59 PT (Prothrobim Time) (62866) Comments: pt/inr; PATIENT WAS FASTINGPERFORMED BY: [facility] Wdwahn[address] [facility] [id number] INR 3.5 (Abnormal) Range: 0.8-1.2 Comments: Reference interval is for non-anticoagulated patients. . Suggested INR therapeutic range for Vitamin K anta gonist therapy: Standard Dose (moderate intensity therapeutic range): 2.0 - 3.0 Higher intensity therapeutic range 2.5 - 3.5 Prothrombin Time 34.1 {sec} (Abnormal) Range: 8.7-11.5 :59 TSH (17936) Comments: PATIENT WAS FASTINGPERFORMED BY: [facility] Pfohlf5195 [facility] [id number] TSH 0.934 {uIU/mL} (Normal) Range: 0.450-4.500 :59 Vitamin D Hydroxy (76881) Comments: PATIENT WAS FASTINGPERFORMED BY: [facility] Nxykun0688 [facility] [id number] Vitamin D, 25-Hydroxy 33.2 ng/mL (Normal) Range: 32.0-100.0 Comments: Recent studies consider the lower limit of 32.0 ng/mL to be athreshold for optimal health.Helder NIEVES. J Nutr. 2004;135(2):317-22. :59 LIPID PANEL (54145) Comments: PATIENT WAS FASTINGClinical Information: [id number] PERFORMED BY: [facility]Co[facility]arker[facility] Nvdrmh59[address] [facility] [id number] Cholesterol, Total 171 mg/dL (Normal) Range: 100-199 HDL Cholesterol 35 mg/dL (Abnormal) Comments: According to ATP-III Guidelines, HDL-C >59 mg/dL is considered anegative risk factor for CHD. LDL Cholesterol Calc 58 mg/dL (Normal) Range: 0-99 LDL/HDL Ratio 1.7 {ratio_units} (Normal) Range: 0.0-3.2 Triglycerides 391 mg/dL (Abnormal) Range: 0-149 VLDL Cholesterol Luis 78 mg/dL (Abnormal) Range: 5-40 :07 Glucose, PP/2 Hour (95349) Comments: PATIENT NOT FASTINGClinical Information: [id number] 75G DRAWN@1 05PM PERFORMED BY: NoWait [facility] Xlkppe7892 [facility] [id number] Glucose, Two-Hour Postprandial 220 mg/dL (Abnormal) Range: 65-139 35-Aar-916473:46 BUN 14 mg/dL (Normal) Range: 7-18 18-Kcx-905976:46 SERUM CRE & GFR CREAT,SERUM 0.6 mg/dL (Normal) Range: 0.6-1.0 EST GFR 110 mL/min (Normal) EST GFR - AA 133 mL/min (Normal) 51-Abn-104309:36 CHEST WITH CONTRAST Radiology Report See Note (Normal) Comments: Exam Number: [id number] CLINICAL:Wheezing and shortness of breath. CT CHEST [...] copy of this report has been sent [phone].Clinical Information: CC:[id number] PERFORMED BY: [facility] [facility] [id number] Baso (Absolute) 0.0 {x10E3/uL} (Normal) Range: 0.0-0.2 [...] copy of this report has been sent [phone].PERFORMED BY: [facility] [facility] [id number] A/G Ratio 1.2 (Normal) Range: 1.1-2.5 Albumin, [...] copy of this report has been sent [phone].PERFORMED BY: [facility] [facility] [id number] INR 3.4 (Abnormal) Range: 0.8-1.2 Comments: Reference interval is for non-anticoagulated patients. . Suggested INR therapeutic range for Vitamin K anta gonist therapy: Standard Dose (moderate intensity therapeutic range): 2.0 - 3.0 Higher intensity therapeutic range 2.5 - 3.5 Prothrombin Time 33.1 {sec} (Abnormal) Range: 8.7-11.5 :30 CBCD Comments: DR. LEOS ORD PT. DR. VELLANKI ORD CBCD, LIVER, VITD, GGTP,CK. BASO% 0.3 [...] s (Abnormal) Range: 9.1-11.7 :30 VIT D,25 60346 20.1 ng/mL (Abnormal) Comments: DR. DAFNE WALDRON PT. DR. DOMINIK WALDRON CBCD, LIVER, VITD, GGTP,CK. Range: 32.0-100.0 Comments: Recent studies consider the lower limit of 32.0 ng/mL to kizzy threshold for optimal health.Helder NIEVES. J Nutr. 2004;135(2):317-22.Performed At: [facility]6370 [place], [place] [id number] :32 PRO TIME INR 3.2 (Normal) PROTIME 37.7 s (Abnormal) Range: 9.1-11.7 :32 PT/INR, Office (46367) INR 3.5 (Normal) :38 PT/INR, Office (56493) Comments: done BC INR 3.9 (Normal) PT (PROTHROMBIN TIME) INR 3.9 s (Normal) Range: 11.5-13.5 :51 PT/INR, Office (62202) INR 3.4 (Normal) PT (PROTHROMBIN TIME) INR-3.4 s (Normal) Range: 11.5-13.5 :07 PT/INR, Office (51758) INR 2.9 (Normal) PT (PROTHROMBIN TIME) INR-2.9 s (Normal) Range: 11.5-13.5 :56 PRO TIME INR 8.6 (Abnormal) PROTIME 87.1 s (Abnormal) Range: 10.6-13.2 :50 PT/INR, Office (59113) INR 2.5 (Normal) :30 Urinalysis, Office (43500) UA - BILIRUBIN Negative (Normal) UA - BLOOD Non Hemolyzed Moderate (Normal) UA - GLUCOSE Negative (Normal) UA - KETONES Negative mg/dL (Normal) UA - LEUKOCYTE ESTERASE Trace (Normal) UA - NITRITE Negative (Normal) UA - PH 7.0 (Normal) UA - PROTEIN 30 mg/dL (Normal) UA - SPECIFIC GRAVITY 1.010 (Normal) URINE UROBILINGN KEERTHI TIMED Normal mg/dL (Normal) 30-Qga-56774:38 SED RATE ERYTHROCYTE (79461) Comments: PATIENT NOT FASTINGClinical Information: ADD DRAW FEE 013386 ADD J 12193 PERFORMED BY: [facility]CoRobert [facility] SomersetIyfjud1259 [facility] [id number] Sedimentation Rate-Westergren 57 mm/h (Abnormal) Range: 0-30 27-Muo-732928:58 BILAT SCRN DIGITAL & CAD Radiology Report See Note (Normal) Comments: Exam Number: [id number] DIGITAL SCREENING MAMMOGRAMS WITH CAD COMPARISON STUDIESSept2004 [...] The mammogramswere also examined with computer-aided detection software([employer], judge.me.). Reported By: WHITLEY CONTE M.D. 26-Rxr-884027:57 DEXA BONE DENSITY STUDY (HP) Radiology Report See Note (Normal) Comments: Exam Number: [id number] DEXA BONE DENSITY STUDY HISTORYPostmenopausal. COMPARISON STUDYApr2001 Study was performed using holoHouseTab unit. The lumbar spine is measured from [...] significant decrease. Reported By: VANE SWIFT M.D. 85-Gys-180052:20 BRITTNEE (ANTINUCLEAR ANTIBODY) Comments: PATIENT NOT FASTINGPERFORMED BY: [employer] [place] [id number] (89785) Antinuclear Antibodies Direct 29 AU/mL (Normal) Range: 0-99 Comments: Negative <100 Equivocal 100 - 120 Positive >120 28-Hkj-065259:20 C-REACTIVE PROTEIN (25963) Comments: PATIENT NOT FASTINGPERFORMED BY: [employer] [place] [id number] C-Reactive Protein, Quant 1.1 mg/L (Normal) Range: 0.0-4.9 25-Shu-395356:20 Folate (47578) Comments: PATIENT NOT FASTINGClinical Information: ADD DRAW FEE 700878 ADD J 44001 PERFORMED BY: [employer] [place] [id number] Folate (Folic Acid), Serum >24.0 ng/mL (Normal) Comments: Indeterminate: 3.4 - 5.4 Deficient: <3.4 40-Rnr-001284:20 RHEUMATOID FACTOR-QUANT (74807) Comments: PATIENT NOT FASTINGPERFORMED BY: [employer] [place] [id number] RA Latex Turbid. 7.9 {IU/mL} (Normal) Range: 0.0-13.9 87-Cnb-227142:20 SED RATE ERYTHROCYTE (21854) Comments: PATIENT NOT FASTINGPERFORMED BY: [facility]CoRobert [facility] SomersetHkjxdt0383 [facility] [id number] Sedimentation Rate-Westergren 80 mm/h (Abnormal) Range: 0-30 45-Gpt-402364:20 VITAMIN B-12 (CYANOCOBALAMIN) Comments: PATIENT NOT FASTINGPERFORMED BY: [facility] Jljbww6799 [facility] [id number] (87668) Vitamin B12 >2000 pg/mL (Abnormal) Range: 211-911 82-Fjk-080588:30 PT/INR, Office (87219) Comments: done kmgoal is 3-4 INR 3.8 [...] CRITICAL VALUE REPEATED AND VERIFIED. CALLED TO HGIJGMY20/11/08 1203 AARON BHATIA.RESULTS READ BACK BY PRASHANTH ALLEN . PROTIME 55.3 s (Abnormal) Range: 10.6-13.2 :20 TSH 0.79 {uIU/mL} (Normal) Range: 0.34-4.82 :29 PT/INR, Office (65043) INR 2.5 (Normal) Comments: aw :10 TROPONIN-I < 0.04 ng/mL (Normal) Comments: TROPONIN-I EXPECTED VALUES < 0.50 NEGATIVE 0.50 - 1.49 INDETERMINANT > OR = 1.50 SUGGEST OK :11 BMP Comments: INDICATE CK '1', '2', [...] Comments: RESULTS CALLED TO TAMEKA SILVA 05/05/07 1602 ADEEL FLORESREPORT READ BACK BY SAME . PROTIME 48.9 s (Abnormal) Range: 10.6-13.2 :11 PTT 66.6 s (Abnormal) Range: 24.6-36.6 :11 TROPONIN-I < 0.04 ng/mL (Normal) Comments: INDICATE CK '1', '2', '3', OR 'R' FOR RANDOM: 1 Comments: TROPONIN-I EXPECTED VALUES < 0.50 NEGATIVE 0.50 - 1.49 INDETERMINANT > OR = 1.50 SUGGEST OK :03 BRAIN/HEAD WITHOUT CONTRAST Radiology Report See Note (Normal) Comments: Exam Number: [id number] CT SCAN OF BRAIN HISTORYVertigo. Ataxia. Possible [...] By: NATY LANTIGUA M.D. :42 PT/INR, Office (04775) INR 2.8 (Normal) :02 PRO TIME INR [...] s (Abnormal) Range: 11.7-13.3 :17 PT/INR, Office (79940) INR 3.6 (Normal) PT (PROTHROMBIN TIME) 22.8 s (Abnormal) Range: 11.5-13.5 :03 PT/INR, Office (10550) Comments: no change recheck 1 wk; Pt. [...] with hypotension Sepsis with hypotension : Reviewed Supervisor Housecleaner Letter Indication: Sepsis with hypotension GERD (gastroesophageal [...] disease Atrial fibrillation, unspecified type : Reviewed Supervisor Housecleaner Letter Indication: Atrial fibrillation, unspecified type Hypertension with renal disease : Follow up in 2ish weeks Indication: Hypertension with renal disease Hypertension with renal disease : BP MONITORING - SELF Indication: Hypertension with renal disease Seizure : Reviewed Lab Indication: Seizure Seizure : Reviewed Diagnostic Tests:- cat scan brain Indication: Seizure Seizure : Reviewed Supervisor Housecleaner Letter Indication: Seizure Controlled diabetes mellitus type II without complication : Follow up in 3 months Indication: Controlled diabetes mellitus type II without complication Seizure : Reviewed Supervisor Housecleaner Letter Indication: Seizure Controlled diabetes mellitus type [...] for malignant neoplasms, colon) Seizure : Reviewed Supervisor Housecleaner Letter Indication: Seizure Cerebral hemorrhage : Reviewed Supervisor Housecleaner Letter: currently in OT Indication: Cerebral hemorrhage Hypertension with renal disease : Continue Current Prescription(s) Indication: Hypertension with renal disease UTI (urinary tract infection), bacterial : Reviewed Lab Indication: UTI (urinary tract infection), bacterial Cerebral hemorrhage : Reviewed Lab Indication: Cerebral hemorrhage Cerebral hemorrhage : Reviewed Diagnostic Tests Indication: Cerebral hemorrhage Cerebral hemorrhage : Reviewed Supervisor Housecleaner Letter Indication: Cerebral hemorrhage Current non-smoker : [...] up in 3 month/or when returns from [facility][note 3] Indication: Controlled diabetes mellitus type II without [...] disease) CHF (congestive heart failure) : Reviewed Supervisor Housecleaner Letter Indication: CHF (congestive heart failure) CHF [...] Exercise Indication: Osteoarthritis Planned Observations POTASSIUM SERUM (57750)Indication: Hyperkalemia On: 18-Dxg-192780:57 Request Blood Glucose , Office (32882)Indication: Uncontrolled type II diabetes mellitus On: 17-Wze-459804:57 Request Rapid Flu (19618 x 2)Indication: Chills (without fever) On: 3-Zwn-442095:38 Request TSH (37775)Indication: Atrial fibrillation, unspecified type On: 55-Avh-561072:51 Request URINALYSIS, W/ MICRO (50027)Indication: Hypertension with renal disease On: 75-Lvi-974953:51 Request MICROALBUMIN: CREATININE RATIO (81693) AND (24202)Indication: Hypertension with renal disease On: 02-Qxh-217967:51 Request METABOLIC PANEL, COMPREHENSIVE (51793)Indication: Hypertension with renal disease On: 13-Efp-046054:51 Request CBC W/AUTO DIFF WBC (07504)Indication: Hypertension with renal disease On: 92-Utm-661109:51 Request LIPID PANEL (26263)Indication: Hypercholesterolemia On: 51-Mbl-483485:51 Request TSH (THYROID STIMULATING HORMONE) (64092)Indication: DISORDER, PITUITARY NEC On: 72-Fae-073082:23 Request T3, FREE (TRIDOTHYRONINE) (78735)Indication: DISORDER, PITUITARY NEC On: :23 Request T4, FREE (THYROXINE) (72493)Indication: DISORDER, PITUITARY NEC On: :23 Request CALCIFIDIOL (19132) VIT D 25Indication: Vitamin D deficiency, unspecified On: :52 Request TSH (84767)Indication: Controlled diabetes mellitus type II without complication On: :52 Request URINALYSIS, W/ MICRO (80411)Indication: Controlled diabetes mellitus type II without complication On: :52 Request MICROALBUMIN: CREATININE RATIO (77973) AND (79467)Indication: Controlled diabetes mellitus type II without complication On: :52 Request METABOLIC PANEL, COMPREHENSIVE (04022)Indication: Controlled diabetes mellitus type II without complication On: :52 Request LIPID PANEL (46271)Indication: Controlled diabetes mellitus type II without complication On: :52 Request CBC W/AUTO DIFF WBC (25220)Indication: Controlled diabetes mellitus type II without complication On: 69-Xir-056794:52 Request URINE FAVIAN CULTURE-IDENTIFICATN (45853)Indication: Abnormal urine On: 1-Sbq-407606:17 Request FECAL OCCULT- Tubes sent home (33807)Indication: Encounter for screening for malignant neoplasm of colon (Renamed from Special screening for malignant neoplasms, colon) On: 35-Bkp-335425:39 Request Alkaline Phosphatase (62272)Indication: Antiphospholipid syndrome On: :15 Request THROAT CULTURE (66195)Indication: Sore throat On: 01-Feb-20178:32 Request Metabolic Panel, Basic (53072)Indication: Hypertension with renal disease On: :56 Request Comments: do in one month BASIC METABOLIC w/Ionized Ca++ (69954)Indication: Hypertension with renal disease On: :23 Request Urine Protein Electrophoresis (UPEP) (40902)Indication: Elevated serum globulin level On: :17 Request Serum Protein Electrophoresis (SPEP) (59362)Indication: Elevated serum globulin level On: 34-Zin-87195:17 Request URINALYSIS, W/ MICRO (73958)Indication: Controlled diabetes mellitus type II without complication On: :52 Request TSH (76349)Indication: Controlled diabetes mellitus type II without complication On: :52 Request CBC W/AUTO DIFF WBC (45441)Indication: Controlled diabetes mellitus type II without complication On: :52 Request MICROALBUMIN: CREATININE RATIO (12682) AND (16569)Indication: Controlled diabetes mellitus type II without complication On: :52 Request METABOLIC PANEL, COMPREHENSIVE (04461)Indication: Hypercholesterolemia On: :52 Request LIPID PANEL (04557)Indication: Hypercholesterolemia On: :52 Request HGB A1C (72282)Indication: Controlled diabetes mellitus type II without complication On: :52 Request HgA1C , Office (69446)Indication: Type 2 diabetes mellitus, controlled, with renal complications On: 01-Feb-20139:05 Request Blood Glucose , Office (94308)Indication: Type 2 diabetes mellitus, controlled, with renal complications On: 01-Feb-20139:05 Request URINE FAVIAN CULTURE-IDENTIFICATN (24705)Indication: Dysuria On: :52 Request LIPID PANEL (91935)Indication: Hyperlipidemia On: 37-Kfm-406068:17 Request CALCIFIDIOL (25309) VIT D 25Indication: Vitamin D deficiency, unspecified On: 55-Kte-028672:16 Request Vitamin D Hydroxy (52192)Indication: Osteopenia On: 51-Ksn-000177:56 Request TSH (52449)Indication: Uncontrolled type II diabetes mellitus On: 63-Icr-804336:56 Request URINALYSIS, W/ MICRO (17509)Indication: Uncontrolled type II diabetes mellitus On: 16-Faq-742282:56 Request MICROALBUMIN: CREATININE RATIO (72145) AND (12617)Indication: Uncontrolled type II diabetes mellitus On: 98-Hat-200034:56 Request METABOLIC PANEL, COMPREHENSIVE (22314)Indication: Uncontrolled type II diabetes mellitus On: 99-Gvi-550207:56 Request LIPID PANEL (96840)Indication: Uncontrolled type II diabetes mellitus On: 53-Wza-400530:56 Request CBC WITH MANUAL DIFF (92161)Indication: Uncontrolled type II diabetes mellitus On: 29-Sep-2011 Request Urine Protein Electrophoresis (UPEP) ([id number])Indication: Other specified abnormal findings of blood chemistry On: 26-Tjw-636074:18 Request Serum Protein Electrophoresis (SPEP) ([id number])Indication: Other specified abnormal findings of blood chemistry On: 29-Nka-061047:18 Request PARATHORMONE ([id number])Indication: Vitamin D deficiency, unspecified On: 38-Aft-802327:16 Request CALCIFEDIOL (41426)Indication: Other specified abnormal findings of blood chemistry On: 39-Bao-38213:43 Request GONADOTROPIN-LH ([id number])Indication: DISORDER, PITUITARY NEC On: 2-Tqa-058176:04 Request GONADOTROPIN-FSH (93033)Indication: DISORDER, PITUITARY NEC On: 9-Pjx-814463:04 Request SOMATOMEDIN ([id number])Indication: DISORDER, PITUITARY NEC On: 9-Oym-181119:04 Request PROLACTIN ([id number])Indication: DISORDER, PITUITARY NEC On: 5-Xud-880034:04 Request TSH (THYROID STIMULATING HORMONE) ([id number])Indication: DISORDER, PITUITARY NEC On: 2-Njt-358184:04 Request ACTH ([id number])Indication: DISORDER, PITUITARY NEC On: 4-Ldj-420684:04 Request LIPID PANEL ([id number])Indication: Hypercholesterolemia On: 06-Sep-20109:15 Request PT (Prothrobim Time) ([id number])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 On: 0-Mui-496950:18 Request Comments: Standing order Metabolic Panel, Basic ([id number])Indication: Uncontrolled type II diabetes mellitus On: 45-Ngj-72526:00 Request TSH ([id number])Indication: Controlled diabetes mellitus type II without complication On: 32-Bow-016540:41 Request URINALYSIS, W/ MICRO ([id number])Indication: Controlled diabetes mellitus type II without complication On: 68-Aua-466193:41 Request MICROALBUMIN: CREATININE RATIO (06734) AND ([id number])Indication: Controlled diabetes mellitus type II without complication On: 18-Ygj-033131:41 Request METABOLIC PANEL, COMPREHENSIVE ([id number])Indication: Controlled diabetes mellitus type II without complication On: 10-Vjv-207130:41 Request LIPOPROTEIN, BLD, BY NMR ([id number])Indication: Controlled diabetes mellitus type II without complication On: 34-Uia-651567:41 Request LIPID PANEL ([id number])Indication: Controlled diabetes mellitus type II without complication On: 93-Utq-930987:41 Request CBC WITH MANUAL DIFF ([id number])Indication: Controlled diabetes mellitus type II without complication On: 98-Fev-958601:41 Request Comments: DO PRIOR TO NEXT VISIT PT (Prothrobim Time) ([id number]) On: 83-Jgh-378055:39 Request Comments: inr Vitamin D Hydroxy ([id number])Indication: Osteopenia On: 02-Lyh-796906:37 Request HEPATIC FUNCTION PANEL ([id number])Indication: Hypercholesterolemia On: 26-Cve-982393:36 Request LIPOPROTEIN, BLD, BY NMR ([id number])Indication: Hypercholesterolemia On: 01-Lsa-429533:36 Request LIPID PANEL ([id number])Indication: Hypercholesterolemia On: 10-Xot-281434:35 Request Comments: do in 3 mionths PT/INR, Office ([id number])Indication: Transient ischemic attack On: 83-Xtw-76937:17 Request CALCIFIDIOL ([id number]) VIT D 25Indication: Vitamin D deficiency, unspecified On: 15-Tqt-470107:34 Request PT/INR, Office ([id number]) On: 23-Njy-736808:22 Request PT/INR, Office ([id number])Indication: Transient ischemic attack On: 9-Zzr-958044:44 Request PT (Prothrobim Time) ([id number])Indication: shelter current use of anticoagulant On: 9-Vqf-320143:05 Request Comments: Standing order x 1 year PT/INR, Office ([id number]) On: 29-Yed-49396:57 Request SED RATE ERYTHROCYTE ([id number])Indication: Polymyalgia rheumatica On: 36-Scu-735466:59 Request Comments: DO IN 2 WEEKS LIPID PANEL ([id number])Indication: Hypercholesterolemia On: 26-Xku-193476:02 Request Comments: do in 6 months PT/INR, Office ([id number]) On: 64-Wpj-608998:25 Request Comments: done kmsee flow sheet PT/INR, Office ([id number])Indication: Transient ischemic attack On: 56-Jwz-698405:04 Request Comments: done PT (Prothrobim Time) ([id number])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 See [facility]: 2048) ([id number])By: Hannah Leos DO, DO, Kathleen INFUSION, NORMAL SALINE SOLUTION On: 20-Sep-2017 Intent , 1000 CC (Special Coverage Comments: IV Therapy [id number], 1 inchSite: L ac - first attempt and Saline Lock flushed easily Tolerated: wellno redness or swelling, no s/s infiltration MLONG Instructions Apply. See [facility]: 2048) ([id number])By: Hannah Leos DO, DO, Kathleen ELECTROCARDIOGRAM, COMPLETE On: 28-Jun-2017 Intent (ECG) ([id number])By: Mino SMITH, Yadira PNEUM VAC ADLT/IMUMNOSPR, On: 16-Jun-2017 Intent SBC/INTRM ([id number])By: Visit, Comments: Lot #[id number]-L arm, dltd, IMDose- prefilled syringegiven by:WALDO McfarlandVIS signed Nurse ELECTROCARDIOGRAM, COMPLETE On: 14-Jun-2017 Intent (ECG) ([id number])By: Dafne WELSH, Comments: sinus poor R progression , nonaspecific st flattening and t wave inversion in lateral leads-- new chgn - Hannah Csatro DO SCREENING DIGITAL TOMOSYNTHESIS On: 24-May-2017 Intent OF BREAST ([id number])By: Hannah Leos DO, DO, Kathleen Flu Vaccine (Quadrivalent) On: 07-May-2017 Intent 16915Kh: Hannah Leos DO Comments: Lot:[id number]:02/14/18Amt:0.5mlRoute:IMSite: L DltdGiven By: GUSTAVO Chaves signed Hannah Leos DO CT - Brain/Head (Without On: 05-Apr-2017 Intent Contrast)By: Hannah Leos DO Comments: following cerebral hemorrhage Hannah Leos DO Solu -Medrol Injection, 125 mg On: 08-Mar-2017 Intent ([id number])By: Daniela Herzog CNP Comments: Lot:[id number]:07/18Dose:125mgRoute:imSite:r hip Given By:MO signed Radiology - Elbow - RightBy: On: 08-Mar-2017 Intent Daniela Herzog CNP Flu Vaccine (Quadrivalent) On: 04-Jun-2016 Intent 31813Zn: Hannah Leos DO Comments: Lot:[id number]:02/26/17Dose:0.5mLRoute:IMSite:L DltdGiven By:MO signed Hannah Leos DO DEXA SCAN AXIAL SKELETON On: 17-Oct-2015 Intent ([id number])By: Hannah Leos DO, DO, Kathleen MAMMOGRAM, SCREENING, BOTH On: 17-Oct-2015 Intent BREAST ([id number])By: Hannah Leos DO, DO, Kathleen IMMUNIZ ADMNIN, 1 VAC, On: 04-Jun-2014 Intent SNGL/COMBO (22269)By: Cathy Kim FLU VAC, SPLIT, >3 YEARS, On: 04-Jun-2014 Intent INTRAMUSC ([id number])By: Julio, Comments: Lot:[id number]:Dose:0.5mLRoute:IMSite:L DltdGiven By:MO signed Cathy EKG ([id number])By: Dafne WELSH, On: 08-Nov-2013 Intent Hannah Castro DO Comments: sinus alethea - nonspeciific st flattening Eprescribed prescriptions On: 08-Nov-2013 Intent (G8553)By: Hannah Leos DO, DO, Kathleen Eprescribed prescriptions On: 01-Feb-2013 Intent (G8553)By: Shea May LPN Eprescribed prescriptions On: 09-Nov-2012 Intent (G8553)By: Shea May LPN EKG (25422)By: Dafne WELSH, On: 29-Jul-2012 Intent aHnnah Castro DO Comments: nsr no acute chg MAMMOGRAM, SCREENING, BOTH On: 29-Jul-2012 Intent BREASTS ([id number])By: Hannah Leos DO, DO, Kathleen Eprescribed prescriptions On: 29-Jul-2012 Intent (G8553)By: Jessica Shields LPN Eprescribed prescriptions On: 11-Jan-2012 Intent (G8553)By: Jessica Shields LPN EKG (35411)By: Dafne WELSH, On: 16-Jul-2011 Intent Hannah Castro DO Comments: nsr no acute chg -first degree block not differnt IMMUNIZ ADMNIN, 1 VAC, On: 16-Jul-2011 Intent SNGL/COMBO (52029)By: Dafne WELSH, Comments: Lot #[id number]/Site-left deltoidgiven by: WALDO Stewart DO, Kathleen PNEUM VAC ADLT/IMUMNOSPR, On: 16-Jul-2011 Intent SBC/INTRM (06734)By: Hannah Leos DO, DO, Kathleen DXA, BONE DENSITY, AXIAL On: 15-Oct-2010 Intent SKELETON (17163)By: Jessica Shields LPN MAMMOGRAM, SCREENING, BOTH On: 15-Oct-2010 Intent BREASTS ([id number])By: Jessica Shields LPN Clinical Breast Examination On: 15-Oct-2010 Intent (G0101)By: Jessica Shields LPN TDAP VACCINE >7 IM (03391)By: On: 08-Sep-2010 Intent Hannah Leos DO, DO, Comments: Lot #[id number]-L armDose prefilled syringegiven by:DEEDEE Young MRA - Upper Extremity OtherBy: On: 15-Jul-2010 Intent Hannah Leos DO, DO, Kathleen MRI - BrainBy: Dafne WELSH, On: 06-Jun-2010 Intent Hannah Castro DO EKG ([id number])By: Dafne WELSH, On: 06-Jun-2010 Intent Hannah Castro DO Nuclear Stress Test/Stress On: 12-Aug-2009 Intent SPECT/AdenosineBy: Hannah Leos DO, DO, Kathleen Echo CompleteBy: Dafne WELSH, On: 15-Jul-2009 Intent Hannah Castro DO EKG (01488)By: Dafne WELSH, On: 15-Jul-2009 Intent Hannah Castro DO Comments: nonspecific flattening no acute changes Solu -Medrol Injection, 125 mg On: 23-May-2009 Intent (J2930)By: Yuko Gonzalez LPN Comments: Lot #[id number]-Left [id number] mggiven by:[facility] Spirometry (75265)By: Aron, On: 23-May-2009 Intent Francisca Comments: normal CT - ChestBy: Francisca Sharp On: 23-May-2009 Intent Comments: PE protocol Pulse Oximetry ([id number])By: On: 23-May-2009 Intent Francisca Sharp Comments: 97% EKG (65808)By: Dafne WELSH, On: 11-Nov-2007 Intent Hannah Castro DO Comments: SINUS ALETHEA NONSPECIFIC BASELINE DXA, BONE DENSITY, AXIAL On: 28-Oct-2007 Intent SKELETON (72322)By: Hannah Leos DO, DO, Hannah MAMMOGRAM, SCREENING, BOTH On: 28-Oct-2007 Intent BREASTS ([id number])By: Hannah Leos DO, DO, Kathleen Radiology - Chest- PA and LatBy: On: 12-Nov-2006 Intent Hannah Leos DO, DO, Hannah Aerosol Treatment ([id number])By: On: 12-Nov-2006 Intent Hannah Leos DO, DO, Comments: MORE AIR EXCHANGE NO WHEEZE AND RUB SOFTER-- PT FEELS CLINICALLY BETTER Hannah Pulse Oximetry (50179)By: Dafne On: 12-Nov-2006 Intent Hannah WELSH DO, Kathleen Comments: 98% Solu- Medrol Injection, 125mg On: 16-Mar-2007 Intent (J2930)By: Hannah Leos DO Comments: Lot [...] is transitioning into care from a hospital ([facility] for 1 week and a half [...] conversion disorder with concussion. has apt in [facility] Encounter Diagnosis: BMI 30.0-30.9,adult, Current non- smoker, [...] type II without complication, Hypercholesterolemia, Antiphospholipid syndrome, shelter current use of anticoagulant, Hypertension with renal [...] The patient does have durable power of compliance attorney and living will. 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
--- OUTSIDE RECORDS SUMMARY | 2018-11-18 16:20 | XMS RPT_ITS | Continuity of Care Document ---
:1950 Author Organization [facility] Address [address] [place] [address] Phone Care Team Providers Name Role Phone Hannah Leos DO Unavailable Rasta Alvarezine Unavailable Jana Hughes Unavailable WALDO Shileds Unavailable Unavailable Long Shea HAAS Unavailable Unavailable Jessica Bliss Unavailable Unavailable Allie Gustafson Unavailable Unavailable Slarb SEEING EYE DOG TRAINER, Deidra Unavailable Unavailable Unavailable Unavailable Problems Name [...] going to see Dyana, will see in [place] Status: Active Sepsis with hypotension (A41.9, 038.9) [...] infection), bacterial (N39.0, 599.0) Comments: while at [facility] -- E coli in culture and she [...] : 21-Sep-2017 End : 13-Oct-2017 Inactive ERGOCALCIFEROL, 08068CUJG (Oral Capsule) 2 Capsule q week for [...] Comments:This order discontinued per [employer]. 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 [place] [address] Pacemaker Check Date of Service: 04/09/18924 MR#: [id number] Acct: [id number] Name: HERMINIA NASH Rep #: [id number] : 1950 From: Verónica Trinidad Age/Sex: 68/F [place] [facility]: Signed Billing Codes PM Device Codes: PM Dev Interrogate (Remot 04/09/1829 <Karsten kelly signed by Veróinca Trinidad > Date Verónica Trinidad 04/11/18 1650<Electronically signed by Gary FALL> Cosigner Signature : Date (if applicable) Gary Zamora CC: 25-Mar-2018 History and Physical Exam Result: Comments: See Note; NOTES: [facility] Medical Records Department [address] [place] [address] History and Physical 03/25/18 1449 MR#: [id number] Acct: [id number] Name: Douglas NASH Rep #: [id number] : 1950 68 From: Karel Max DO [...] of 102.5 Fahrenheit. Patient was sent to [facility] emergency room. Patient was found to be [...] history Psychiatric History: No pertinent psych hx COMMUNITY REPRESENTATIVE History: No pertinent COMMUNITY REPRESENTATIVE history Smoking Status: Never s coral [...] Lovenox Code Visit Inpatient E AND M: 14146 Init Hosp L3 03/25/18 1457 <Electronically signed by Karel Max DO> Date Karel Max DO Cosigner Signature: Date (if applicable) CC: Karel Max DO; Hannah Leos DO Signed 25-Mar-2018 Chest 1 View (Portable) Result: Comments: See Note; NOTES: [facility] Imaging Services [address] [place] [address] Chest 1 View (Portable) MR#: [id number] Acct: [id number] Name: HERMINIA NASH Rep #: [id number] : 1950 F 68 From: Darrell Prado MD PCP: Hannah Leos DO Status: REG ER Study: Chest 1 View (Portable) Date of Exam: 03/25/18 Exam# [id number] Ordering Dr: Mitra Whitney STUDY: X-RAY CHEST [...] MD at 14:04 EDT , Service support [phone], CC: Mitra Whitney; Hannah Leos DO Oil Expeller Operator: Signed 09-Feb-2018 Cardiology Visit Report Result: Comments: See Note; NOTES: [facility] [place] [address] OFFICE VISIT Date of Service: 01/28/18 MR#: [id number] Acct: [id number] Name: HERMINIA NASH Rep #: [id number] : 1950 Provider: Yasmin Aiken Age/Sex: 67/F [place] [facility] [place] Status: Signed HPI HPI Details: HERMINIA [...] I ntake Visit Reasons: 3 M FU Central Supply Worker Required: No Accompanied by: Is patient in [...] mg PO DAILY 10/06/17 [History Confirmed 01/28/18] [place] xyzine HCl 25 mg PO BID 10/07/17 [...] note was generated using a voice recog [employer] system and there may be incorrect words, [...] Pacemaker Check Result: Comments: See Note; NOTES: [facility] [address] [place], [place] [address]e. [address] [place] [address] Pacemaker Check Date of Service: 12/31/17 1423 MR#: [id number] Acct: [id number] Name: HERMINIA NASH Rep #: [id number] : 1950 From: Verónica Trinidad Age/Sex: 67/F [place] [facility] [place] Status: Signed Comments Summary Comments: Dual Chamber Pacemaker Evaluation: 6 wk post PPM implant check co mpleted. Interrogation shows no MS episodes and no VT episodes since 11/16/17. Left pectoral pocket/incision w/o s/s of infection or erosion. Pt offers no cardiac complaints at present. Presenting rhythm shows AAI pacing @ 60 ppm. MINE SURVEYOR=2%. Battery longevity approx 8.5yrs. Lead impedances, sensing and pace/sense thresholds remain stable. Decreased AV amplitudes with adequate safety margin to preserve olaf clary longevity. Counters cleared. Next f/u appt scheduled for in 3 mos. Device Device Date Interviewed: 12/31/17 Follow-up Location: in office Interview Reason: scheduled follow up Certified Prosthetist/Orthotist: [employer] Name: EventToolcory MONTES DR IS-1 Model: L111 Serial #: [id number] Implant Date: 11/15/17 Year(s): 0 Implant Physician: Dr. Mehul Pollock/ [facility] Patient Characteristics Atrial Indication: sick sinus syndro me Patient Substrate: Arrhythmia Ejection fraction %: 50 to 54 (05/2015) By: Echo Underlying rhythm: Sinus rhythm Pacemaker Dependent: No Device Characteristics Device: Dual Chamber Type: Pacemaker Matthew te Follow-Up: Latitude Device Physical Exam Yes Incision well healed, No hematoma, Pocket not tender and No drainage Leads Lead #1 Certified Prosthetist/Orthotist Lead 1: [employer] Model Lead 1: 7741 Serial# Blanca d 1: [id number] Date Implanted Lead 1: 11/15/17 Position Lead 1: RA Lead #2 Certified Prosthetist/Orthotist Lead 2: [employer] Model Lead 2: 7740 Serial# Lead 2: [id number] Date Implanted Lead 2: 11/15/17 Position Lead [...] Pacemaker Check Result: Comments: See Note; NOTES: [facility] [address] [place] [address] Pacemaker Check Date of Service: 11/22/17 1119 MR#: [id number] Acct: [id number] Name: HERMINIA NASH Rep #: [id number] : 1950 From: Verónica Trinidad Age/Sex: 67/F [place] [facility] [place] [place] Status: Signed Comments Summary Comments: Wound [...] in office Interview Reason: scheduled follow up Certified Prosthetist/Orthotist: [employer] Name: Garrett MONTES DR IS-1 Model: L111 Serial #: [id number] Implant Date: 11/15/17 Year(s): 0 Implant Physician: Dr. Mehul Pollock/ [facility] Patient Characteristics Atrial Indication: sick sinus syndrome Patient Substrate: Arrhythmia (junctional rhythm with HR in 20's) Ejection fraction %: 5 0 to 54 (05/2015) By: Echo Underlying rhythm: Sinus rhythm Pacemaker Dependent: No Device Characteristics Device: Dual Chamber Type: Pacemaker Device Physical Exam Yes Steri-strips intact, No hematoma a nd No drainage Leads Lead #1 Certified Prosthetist/Orthotist Lead 1: [employer] Model Lead 1: 7740/45 [facility] MRI Serial# Lead 1: [id number] Date Implanted Lead 1: 11/15/17 Position Lead 1: RA Lead #2 Certified Prosthetist/Orthotist L ead 2: [employer] Model Lead 2: 7741/52 [facility] MRI Serial# Lead 2: [id number] Date Implanted Lead 2: 11/15/17 Position Lead [...] Discharge Instruction Result: Comments: See Note; NOTES: [facility] Medical Records Department [address] [place] [address] Discharge Instruction 11/17/17 1836 MR#: [id number] Acct: [id number] Name: HERMINIA NASH Rep #: [id number] : 1950 67 From: Rodríguez Costa DO [...] your Primary Care Provider. Call Doctors Registry ([phone]) or report t o the closest Emergency Room. Call 911 if necessary. 11/17/171836 <Electronically signed by Rodríguez Costa DO> Date Rodríguez Costa DO Co signer Signature (If Indicated): Date CC: Hannah Leos DO 17-Nov-2017 Emergency Department Summary Result: Comments: See Note; NOTES: [facility] Medical Records Department [address] [place] [address] Emergency Department Summary 11/17/17 183 MR#: [id number] Acct: [id number] Name: HERMINIA NASH Rep #: [id number] : 1950 67 From: Rodríguez Costa DO [...] Plan: I will discuss case with Dr. oPllock or the physician covering for Dr. Pollock regarding the dressing change.] Disposition: [Discharged to home in stable condition.] Impression: [Wound check-no bleeding and no signs of infection] This note was generated with voxapp dictation software. It may contain incorrect words, [...] your Primary Care Provider. Call Doctors Registry ([phone]) or report to the closest Emergency Room. Call 911 if necessary. 0 11/17/17 1836 <Electronically signed by Rodríguez Costa DO> Date Rodríguez Costa DO Cosigner Signature (If Indicated): Date CC: Hannah Leos DO 16-Nov-2017 Discharge Instruction Result: Comments: See Note; NOTES: [facility] Medical Records Department [address] [place] [address] Instructions for Home/Discharge Instructions 11/16/17 0848 MR#: [id number] Acct: [id number] Name: HERMINIA NASH Rep #: [id number] : 1950 67 From: Mehul Pollock MD PCP: Hannah Leos DO Status: REG [facility] Discharge Diet: No Restrictions Discharge Activity: May [...] call your doctor's office or Doctor's Registry ([phone]) Call 911 or g o to the [...] 1 View Result: Comments: See Note; NOTES: [facility] Imaging Services [address] [place] [address] Chest 1 View MR#: [id number] Acct: [id number] Name: HERMINIA NASH N Rep #: [id number] : 1950 F 67 From: Martha Delgado MD PCP: Hannah Leos DO Status: [facility] Study: Chest 1 View Date of Exam: 11/16/17 Exam# [id number] Ordering Dr: Mehul Pollock MD STUDY: X-RAY [...] CC: Mehul Pollock MD; Hannah Leos DO Oil Expeller Operator: Signed 16-Nov-2017 Chest PA and Lateral Result: Comments: See Note; NOTES: [facility] Imaging Services [address] [place] [address] Chest PA and Lateral MR#: [id number] Acct: [id number] Name: HERMINIA NASH N Rep #: [id number] : 1950 F 67 From: Mallorie Bolaños MD PCP: Hannah Leos DO Status: [facility] Study: Chest PA and Lateral Date of Exam: 11/16/17 Exam# [id number] Ordering Dr: Mehul Pollock MD STUDY: X-RAY [...] CC: Mehul Pollock MD; Hannah Leos DO Oil Expeller Operator: Signed 05-Nov-2017 Office Visit Report Result: Comments: See Note; NOTES: [facility] [place] [address] OFFICE VISIT Date of Service: 11/05/17 MR#: [id number] Acct: [id number] Patient: HERMINIA NASH Rep #: [id number] : 1950 Provider: Verónica Trinidad Age/Sex: 67/F [place] [facility] [place] Status: Signed Comments Summary Comments: PPM [...] CC: 05-Nov-2017 12 Lead EKG performed [place] [facility] [place] Result: Comments: See Note; NOTES: [facility] [address] [place] [address] 12 Lead EKG performed by [facility] 11/05/17 1027 MR#: [id number] Acct: [id number] Name: HERMINIA BLAND Rep #: [id number] : 1950 67 From: Mehul Pollock MD Attending Dr: Verónica Trinidad Status: REG AMB Ordering Dr: Mehul Pollock MD Date: 11/05/17 [place] [facility] [place] [place] Sex: F A Admitted: ZEINA R #: [id number] BMS/12 Lead EKG performed [place] [facility] [place] [place] Sinus Rhythm Low voltage in limb leads. - Diffuse nonspecific T-abnormality. BNORMAL 11/05/17 1522 <Electronically signed by Mehul Pollock MD&amp ;#62; Date Mehul Pollock MD CC: Hannah Leos DO Date Dictated: 11/05/17 1027 Date Transcribed: 11/05/17 102 Oil Expeller Operator: CO Signed 05-Nov-2017 12 Lead EKG performed by BMS Result: Comments: See Note; NOTES: [facility] [address] [place] [address] 12 Lead EKG performed by BMS 11/05/17 1027 MR#: [id number] Acct: [id number] Name: HERMINIA BLAND Rep #: [id number] : 1950 67 From: Mehul Pollock MD Attending Dr: Verónica Trinidad Status: DEP AMB Ordering Dr: Mehul Pollock MD Date: 11/05/17 [place] [facility] [place] Sex: F A Admitted: BMS/12 Lead EKG performed by [facility] ECG Report Interpretation Sinus Rhythm Low voltage in limb leads. - Diffuse nonspecific T-abnormality. ABNORMAL Electronically sig perfecto on 11/18/2017 at 13:49 by Mehul Pollock 11/18/17 1350 Date Mehul Pollock MD CC: Hannah Leos DO Date Dictated: 11/05/17 1027 Date Transcribed: 11/05/17 1027 Oil Expeller Operator: CO Signed 29-Oct-2017 Cardiology Visit Report Result: Comments: See Note; NOTES: [facility] [address] [place] [address] OFFICE VISIT Date of Service: 10/29/17 MR#: [id number] Acct: [id number] Name: HERMINIA NASH Rep #: [id number] : 1950 Provider: Yasmin Aiken Age/Sex: 67/F [place] [facility] [place] [place] Status: Signed HPI HPI Details: HERMINIA [...] Lt brachial Intake Visit Reasons: 4 M Central Supply Worker Required: No Accompanied by: Is patient in [...] prior to saving. 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 (REFINERY OPERATOR ASSISTANT/MMM) 10/17 (30 day event monitor) Coding Level [...] Discharge Instruction Result: Comments: See Note; NOTES: [facility] Medical Records Department [address] [place] [address] Discharge Instruction 10/13/17 1624 MR#: [id number] Acct: [id number] Name: HERMINIA NASH Rep #: [id number] : 1950 67 From: Wenceslao Marley MD [...] problems, contact your Primary Care Provider. Call [facility] ([phone]) or report to the closest Emergency Room. Call 911 if necessary. 1710 <Electronically signed by Wenceslao Marley MD> Date Wenceslao Marley MD Cosigner Signature (If Indicated): Date _ CC: Hannah Leos DO 13-Oct-2017 Emergency Department Summary Result: Comments: See Note; NOTES: [facility] Medical Records Department [address] [place] [address] Emergency Department Summary 10/13/17 1240 MR#: [id number] Acct: [id number] Name: HERMINIA NASH Rep #: [id number] : 1950 67 From: Wenceslao Marley MD PCP: Hannah Leos DO Status: DEP ER - ER Visit Summary Date of Service: 10/13/17 Chief Complaint: Cough, fever and ch ills History of Present Illness: The patient is a 67 F past medical history significant for hemorrhagic CVA, hoh-nhseahp-lymquzqkz diabetes, hypertension, A. fib, seizure disorder. Patient [...] of CVA. With seizure disorder. History of yte-qlvvkaw-egtxrjehy diabetes. History of A. fib T his note was generated with voxapp dictation software. It may contain incorrect words, [...] problems, contact your Primary Care Provider. Call [facility] Registry ([phone]) or report to the closest Emergency Room. Call 911 if necessary. 10/13/17 170 9 <Electronically signed by Wenceslao Marley MD> Date Wenceslao Marley MD Cosigner Signature (If Indicated): Date CC: Hannah Leos DO 13-Oct-2017 Consultation Result: Comments: See Note; NOTES: [facility] Medical Records Department [address] [place] [address] Consultation 10/13/17 1608 MR#: [id number] Acct: [id number] Name: HERMINIA NASH Rep #: [id number] : 1950 67 From: Noe Kwok MD [...] history Psychiatric History: No pertinent psych hx COMMUNITY REPRESENTATIVE History: No pertinent COMMUNITY REPRESENTATIVE history Smoking Status: Never smoker - [...] (Auto) Neut % (Auto) Lymph % (Auto) Andrews % (Auto) Diagnostic Data Chest X-Ray 10/13/17 [...] outpatient. Code Visit Inpatient E AND M: 00659 Ini t Hosp L2 10/13/17 1625 <Electronically signed by Noe Kwok MD> Date Noe Kwok MD Cosigner Signature (if applicable): Date CC: Hannah Leos DO Signed 13-Oct-2017 Chest PA and Lateral Result: Comments: See Note; NOTES: [facility] Imaging Services [address] [place] [address] Chest PA and Lateral MR#: [id number] Acct: [id number] Name: HERMINIA NASH Rep #: [id number] : 1950 F 67 From: Anna Becerra MD PCP: Hannah Leos DO Status: REG ER Study: Chest PA and Lateral Date of Exam: 10/13/17 Exam# [id number] Ordering Dr: Wenceslao Marley MD STUDY: X-RAY [...] CC: Wenceslao Marley MD; Hannah Leos DO Oil Expeller Operator: Signed 06-Oct-2017 Emergency Department Summary Result: Comments: See Note; NOTES: [facility] Medical Records Department [address] [place] [address] Emergency Department Summary 10/06/17 2224 MR#: [id number] Acct: [id number] Name: HERMINIA NASH Rep #: [id number] : 1950 67 From: Francia Lr MD [...] bleeding This note was genera gayla with voxapp dictation software. It may contain incorrect words, [...] your Primary Care Provider. Call Doctors Registry ([phone]) or report to the closest Emergency Room. Call 911 if necessary. 10/06/17 2318 <Electronica lly signed by Francia Lr MD> Date Fracnia Lr MD Cosigner Signature (If Indicated): Date CC: Hannah Leos DO 06-Oct-2017 Pelvic (Non ) Result: Comments: See Note; NOTES: [facility] Imaging Services [address] [place] [address] Pelvic (Non ) MR#: [id number] Acct: [id number] Name: HERMINIA NASH Rep #: [id number] : 1950 F 67 From: Tirso Ovalle PCP: Hannah Leos DO Status: REG ER Study: Pelvic (Non ) Date of Exam: 10/06/17 Exam# [id number] Ordering Dr: Francia Lr MD STUDY: ULTRASOUND [...] CC: Francia Lr MD; Hannah Leos DO Oil Expeller Operator: Signed 06-Oct-2017 Chest 1 View (Portable) Result: Comments: See Note; NOTES: [facility] Imaging Services [address] [place] [address] Chest 1 View (Portable) MR#: [id number] Acct: [id number] Name: HERMINIA NASH Rep #: [id number] : 1950 F 67 From: Tirso Ovalle PCP: Hannah Leos DO Status: [facility] ER Study: Chest 1 View (Portable) Date of Exam: 10/06/17 Exam# [id number] Ordering Dr: Francia Lr MD STUDY: X-RAY [...] DO at 21:42 EST , Service support [phone], CC: Francia Lr MD; Hannah Leos DO Oil Expeller Operator: Signed 03-Sep-2017 Emergency Department Summary Result: Comments: See Note; NOTES: [facility] Medical Records Department [address] [place] [address] Emergency Department Summary 09/02/17 2105 MR#: [id number] Acct: [id number] Name: HERMINIA NASH Rep #: [id number] : 1950 67 From: Jesus Alberto Fernandes [...] at 19:47 EST , Service support , [facility] Department Course and Treatment: Patient [...] Recurrent seizure. This note was generated with voxapp dictation software. It may contain incorrect words, [...] your Primary Care Provider. Call Doctors Registry ([phone]) or report to the closest Emergenc y Room. Call 911 if necessary. 09/03/17 0218 <Electronically signed by Jesus Alberto Fernandes MD> Date Jesus Alberto Fernandes MD Cosigner Signature (If Indicated): Date CC: Hannah Leos DO 02-Sep-2017 Brain W/WO Contrast Result: Comments: See Note; NOTES: [facility] Imaging Services [address] [place] [address] Brain W/WO Contrast MR#: [id number] Acct: [id number] Name: HERMINIA NASH Rep #: [id number] : 1950 F 67 From: Darrell Prado MD PCP: Hannah Leos DO Status: [facility] ER Study: Brain W/WO Contrast Date of Exam: 09/02/17 Exam# [id number] Ordering Dr: Jesus Alberto Fernandes MD STUDY: [...] Hannah Leos DO; Jesus Alberto Fernandes MD Oil Expeller Operator: Signed 02-Sep-2017 Brain/Head without Contrast Result: Comments: See Note; NOTES: [facility] Imaging Services [address] [place] [address] Brain/Head without Contrast MR#: [id number] Acct: [id number] Name: HERMINIA NASH Rep #: [id number] : 1950 F 67 From: Greg Leiva MD PCP: Hannah Leos DO Status: PRE ER Study: Brain/Head without Contrast Date of Exam: 09/02/17 Exam# [id number] Ordering Dr: Jesus Alberto Fernandes MD STUDY: [...] Hannah Leos DO; Jesus Alberto Fernandes MD Oil Expeller Operator: Signed 20-Aug-2017 PT D/C Summary (1) Result: Comments: See Note; NOTES: [facility] [address] [place] [address] Fax REHABILITATION SERVICES DISCHAR GE SUMMARY MR#: [id number] Acct: [id number] Name: HERMINIA NASH Rep #: [id number] [...] please feel free to call me at [phone]. Thank you for the referral of this patient. Sincerely, Karel Kwong, DPT, OC &am p;#60;Electronically signed by Karel Kwong DPT, YULISA, CSCS> 08/20/17 1619 CC: Hannah Leos DO EBG Signed 04-Aug-2017 Re-Evaluation - PT (1) Result: Comments: See Note; NOTES: [facility] [address] [place] [address] Fax [facility] MR#: [id number] Acct: [id number] Name: HERMINIA NASH Rep #: [id number] : 1950 67 From: Karel Kwong DPT, [...] do not hesitate to contact me at [phone] by phone or if you have questions or concerns regarding this new plan of care! Sincerely, Karel Kwong DPT, OC <Electronically signed by Karel Kwong DPT, OCS, [facility]> 7 0746 CC: Hannah Leos DO EBG Signed For Medicare only, by signing this I certify the plan of care. Physicians Signature Date 03-Aug-2017 Re-Evaluation - PT (1) Result: Comments: See Note; NOTES: [facility] [address] [place] [address]. [address] [place] [address] Fax REEVALUATION / MEDICARE RECERTI [employer] [facility] [employer] PHYSICAL THERAPY MR#: [id number] Acct: [id number] Name: HERMINIA NASH Rep #: [id number] : 1950 67 From: Shaunna Buitrago DPT [...] do not hesitate to contact me at [phone] by phone or if you have questions or concerns regarding this new plan of care! Sincerely, Shaunna Buitrago <Electronically signed by Shaunna Mclain om DPT> 08/03/17 1054 CC: Hannah Leos DO EMILY Signed For Medicare only, by signing this I certify the plan of care. Physicians Signature Date 09-Jul-2017 Re-Evaluation - PT (1) Result: Comments: See Note; NOTES: [facility] [address] [place], [place] [address] Fax [facility] MEDICARE [facility] PHYSICAL THERAPY MR#: [id number] Acct: [id number] Name: HERMINIA NASH Rep #: [id number] : 1950 67 From: Shaunna Buitrago DPT [...] do not hesitate to contact me at [phone] by phone or Fax: if you have questions or concerns regarding this new plan of care! Sincerely, Shaunna Buitrago <Electronically signed by Shaunna Buitrago DPT> 07/09/17 1252 CC: Hannah Leos DO ELR Signed For Medicare only, by signing this I certify the plan of care. Physicians Signature Date 23-Jun-2017 PT Communication Result: Comments: See Note; NOTES: [facility] [address] [place] [address]. [address] [place] [address] Fax REHABILITATION SERVICES PROGRES S NOTE MR#: [id number] Acct: [id number] Name: HERMINIA NASH Rep #: [id number] : 1950 67 From: Karel Kwong DPT, OCS, CSCS Referring Dr.: Hannah Leos DO Status: REG RCR Insurance: [employer] MEDICARE PPO PT Communication Note 06/15/[address] Hannah Leos , Thank you for the referral of Herminia to [facility] for balance assessment. I have enclosed a [...] Department Summary Result: Comments: See Note; NOTES: [facility] Medical Records Department [address] [place] [address] Emergency Department Summary 06/20/17 2105 MR#: [id number] Acct: [id number] Name: HERMINIA NASH Rep #: [id number] : 1950 67 From: Huy Caballero PCP: [...] friends on the ground. Airplane went to [place] , she is found to have a [...] stools. Additional history, spouse states while in [place] patient was on a ventilator for 3 [...] for ED Patient: Disposition: Acute Care Hospital [facility] Chief Complaint: Seizure Diagnosis: Atrial fibrillation with RVR , Breakthrough seizure Referrals: Hannah Leos DO [NON-STAFF] - What to do if you have Problems For any increased pain, shortness of breath, bleeding, nausea or vomiting, chest pain, or any une xpected problems, contact your Primary Care Provider. Call [facility] ([phone]) or report to the closest Emergency Room. Call 911 if necessary. 06/20/172321 <Electronically signed by Huy Caballero> Date Huy Caballero Cosigner Signature (If Indicated): Date CC: Hannah Leos DO 20-Jun-2017 Emergency Department Summary Result: Comments: See Note; NOTES: [facility] Medical Records Department [address] [place] [address] Emergency Department Summary 06/20/175 MR#: [id number] Acct: [id number] Name: HERMINIA NASH Rep #: [id number] : 1950 67 From: Huy Caballero PCP: [...] friends on the ground. Airplane went to [place], she is fou nd to have a [...] stools. Additional history, spouse states while in [place] patient was on a ventila tor for [...] for ED Patient: Disposition: Acute Care Hospital [facility] Chief Complaint: Seizure Diagnosis: Atrial fibrillation with RVR, Isela gh seizure Referrals: Hannah Leos, [NON-STAFF] - What to do if you have Problems For any increased pain, shortness of breath, bleeding, nausea or vomiting, chest pain, or any unexpected prob lems, contact your Primary Care Provider. Call [facility] ([phone]) or report to the closest Emergency Room. Call 911 if necessary. 06/20/172321 <Electronically signed by Huy Spear> Date Huy Caballero Cosigner Signature (If Indicated): Date CC: Hannah eLos DO 20-Jun-2017 Chest 1 View (Portable) Result: Comments: See Note; NOTES: [facility] Imaging Services [address] [place] [address] Chest 1 View (Portable) MR#: [id number] Acct: [id number] Name: HERMINIA NASH Rep #: [id number] : 1950 F 67 From: Stef Wong MD PCP: Hannah Leos DO Status: REG ER Study: Chest 1 View (Portable) Date of Exam: 06/20/17 Exam# [id number] Ordering Dr: Huy Pitts DO STUDY: X-RAY [...] , CC: Hannah Leos DO; Huy Pitts Oil Expeller Operator: Signed 02-Jun-2017 SCREENING MAMM (CAD), BILAT Result: Comments: See Note; NOTES: [facility] Imaging Services [address] [place] [address] SCREENING MAMM (CAD), BILAT MR#: [id number] Acct: [id number] Name: HERMINIA NASH Rep #: [id number] : 1950 F 67 From: Martha Delgado MD PCP: Hannah Leos DO Status: REG CLI Study: SCREENING MAMM (CAD), BILAT Date of Exam: 06/02/17 Exam# [id number] Ordering Dr: Hannah Leos DO MAMMOGRAPHY - [...] significant abnormalities are identified. ORDER # : [id number] HPBI/SCREENING MAMM (CAD), BILAT IMPRESSION: Stable bilateral screening mammogram. Yearly follow-up mammogram recommended. (A) ASSESSMENT CATEGORY: BIRA DS Category 2: Benign. A letter regarding these results will be sent to the patient by the facility within 30 days. Approximately 10% of breast cancers are not detected by mammography. A normal mammogr am should not delay biopsy of a clinically suspicious abnormality. [id number] Electronically Signed: Martha Delgado MD at 15:16 EDT Tel , Service support , Fax CC: Hannah Leos DO Oil Expeller Operator: Signed 27-May-2017 Inital Evaluation (1) - PT Result: Comments: See Note; NOTES: [facility] Physical Therapy [facility] [place] [address] Fax REHABILITATION SERVICES INITIAL EVALUATION MR#: [id number] Acct: [id number] Name: HERMINIA NASH Rep #: [id number] : 1950 67 From: Shaunna Buitrago DPT [...] she was on a plane back to [place]. She had a seizure on the plane- they made an emergency landing in [place] and she spent 10 days in the ICU. 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 She is point lay ira ng to get back to these things [...] to be FAXED BACK to us at [phone] for Medicare purposes. Please let me know if there are questions or concerns regarding this plan of care. Physician Signature: Date: <Electronically signed by Shaunna Barragan PT> 05/27/17 1058 CC: Hannah Leos DO ELR Signed For Medicare only, by signing this I certify the plan of care. Physicians Signature Date 21-May-2017 OT D/C Summary Result: Comments: See Note; NOTES: [facility] [address] [place] [address] Fax REHABILITATION SERVICES DIS CHARGE SUMMARY MR#: [id number] Acct: [id number] Name: HERMINIA NASH Rep #: [id number] : 1950 67 From: Deyanira Crockett Referring [...] WFL. Pt. 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 Thank you for the referral of this patient. Sincerely, Deyanira Crockett <Ana Maria ctronically signed by Deyanira Crockett > 05/21/17 1121 CC: Hannah Leos DO KMB Signed 20-May-2017 Emergency Department Summary Result: Comments: See Note; NOTES: [facility] Medical Records Department [address] [place] [address] Emergency Department Summary 05/20/17 1638 MR#: [id number] Acct: [id number] Name: HERMINIA NASH Rep #: [id number] : 1950 67 From: Juan Mendiola MD [...] discussion with pharmacist she was loaded with ModaMi. Case was discussed with Dr. Schaffer after [...] Primary Care Provid er. Call [facility] ([phone]) or report to the closest Emergency Room. Call 911 if necessary. 05/20/17 1644 <Electronically signed by Juan Mendiola MD> Date Juan Mendiola MD Cosigner Signature (If Indicated): Date CC: Hannah Leos DO; Armando Schaffer MD 20-May-2017 Brain/Head without Contrast Result: Comments: See Note; NOTES: [facility] Imaging Services [address] [place] [address] Brain/Head without Contrast MR#: [id number] Acct: [id number] Name: HERMINIA NASH Rep #: [id number] : 1950 F 67 From: Paresh Kebede MD PCP: Hannah Leos DO Status: REG ER Study: Brain/Head without Contrast Date of Exam: 05/20/17 Exam# [id number] Ordering Dr: Juan Mendiola MD STUDY: CT [...] Paresh Kebede MD at 16:07 EDT Tel [phone], Service support , CC: Hannah Leos DO; Juan Mendiola MD Oil Expeller Operator: Signed 21-Apr-2017 Brain without Contrast Result: Comments: See Note; NOTES: [facility] Imaging Services [address] [place] [address] Brain without Contrast MR#: [id number] Acct: [id number] Name: HERMINIA NASH Rep #: [id number] : 1950 F 67 From: Martha Delgado MD PCP: Hannah Leos DO Status: REG CLI Study: Brain without Contrast Date of Exam: 04/21/17 Exam# [id number] Ordering Dr: Manjinder Turpin MD STUDY: MRI [...] by Martha Delgado MD to Manjinder Turpin, [facility] Physician, on 04/21/2017 16:04:47 (ET). Elect ronically Signed: Martha Delgado MD at 16:04 EDT Tel , Service support , N.B. : The above information has been verbally conveyed by Martha Delgado MD to Manjinder Turpin, Covering Physician, on 04/21/2017 16:04:47 (ET). CC: Manjinder Turpin; Hannah Leos DO Oil Expeller Operator: Signed 21-Apr-2017 OT General Evaluation Result: Comments: See Note; NOTES: [facility] [address] [place] [address] Fax REHABILITATION SERVICES INI TIAL EVALUATION MR#: [id number] Acct: [id number] Name: HERMINIA NASH Rep #: [id number] : 1950 67 From: Deyanira Crockett Referring [...] medics called to plane after landing in [place]. Family drove out to [place]. She was intubated wit h trach tube and other lines. She noted when sedated she pulled trach out which has left her with hoarse voice. She spend 10 days in ICU according to , was moved out and then driven home to [place] from [place]. She has not had seizures for a few weeks and notes she is feeling pretty good. She noted she has h/o TIA a few years ago in which she has experience L sided neglect. - Objective Objective/Observation: Pt. appeared with ROM in BUE WFL. Pt. presents with L sided weakness. 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 Pt. seizure occured during session. Lasted 2 mins and then subsided w ith medication. No loss of conciousness or movement. Pt. able to walk with out of session. - ROM Shoulder: WFL Elbow: WFL Forearm: WFL Wrist: WFL MP: WFL PIP: WFL DIP: WFL - Strength Shoulder: R 4+/5, L 4-/5 Elbow: R 4+/5, L 4-/5 Asphalt Spreader: R 70 L 49 Lateral Pinch: R [...] sa fety. Family to call in to [facility] follow-up appointments. 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 Please let me know if there are questions or concerns regarding this plan of care. Physician Signature: Date: <Electronically signed by Deyanira Crockett > 04/21/17 0921 CC: Hannah eLos DO KMB Signed For Medicare only, by signing this I certify the plan of care. Physicians Signature Date 20-Apr-2017 Adult Evaluation - SP Result: Comments: See Note; NOTES: [facility] 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 Right Hearing Abillity: Normal Left Hearing Abillity: [...] by Aries Dan M.A. [facility]-FIREWORKS MAKER> 04/20/17 1418 CC: Hannah Leos DO YASSINE Signed For Medicare only, by signing this I certify the plan of care. ____ Physicians Signature Date 16-Apr-2017 Brain/Head without Contrast Result: Comments: See Note; NOTES: [facility] Imaging Services [address] [place] [address] [place] [address] Brain/Head without Contrast MR#: [id number] Acct: [id number] Name: HERMINIA NASH Rep #: [id number] : 1950 F 67 From: Paresh Kebede MD PCP: Hannah Leos DO Status: REG CLI Study: Brain/Head without Contrast Date of Exam: 04/16/17 Exam# [id number] Ordering Dr: Ramiro Leos DO STUDY: CT [...] Paresh Kebede MD at 15:34 EDT Tel [phone], Service support , CC: Hannah Leos DO Oil Expeller Operator: Signed 08-Apr-2017 Emergency Department Summary Result: Comments: See Note; NOTES: [facility] Medical Records Department [address] [place] [address] Emergency Department Summary 04/08/17 0711 MR#: [id number] Acct: [id number] Name: HERMINIA NASH Rep #: [id number] : 1950 67 From: Martin Rodriguez MD [...] intracranial hemorrhage and was actually hospitalized in [place]. Apparently the patient is still in recovery [...] Primary Care Provide r. Call [facility] ([phone]) or report to the closest Emergency Room. Call 911 if necessary. 04/08/17 0743 <Electronically signed by Martin Rodriguez MD> Date ____ Martin Rodriguez MD Cosigner Signature (If Indicated): Date CC: Hannah Leos DO 08-Apr-2017 Chest 1 View (Portable) Result: Comments: See Note; NOTES: [facility] Imaging Services [address] [place] [address] Chest 1 View (Portable) MR#: [id number] Acct: [id number] Name: HERMINIA NASH Rep #: [id number] : 1950 F 67 From: Ady Steele MD PCP: Hannah Leos DO Status: REG ER Study: Chest 1 View (Portable) Date of Exam: 04/08/17 Exam# [id number] Ordering Dr: Martin Rodriguez MD STUD Y: [...] , CC: Hannah Leos DO; Martin Rodriguez Oil Expeller Operator: Signed 08-Apr-2017 Brain/Head without Contrast Result: Comments: See Note; NOTES: [facility] Imaging Services [address] [place] [address] Brain/Head without Contrast MR#: [id number] Acct: [id number] Name: HERMINIA NASH Rep #: [id number] : 1950 F 67 From: Ady Steele MD PCP: Hannah Leos DO Status: REG ER Study: Brain/Head without Contrast Date of Exam: 04/08/17 Exam# [id number] Ordering Dr: Martin Rodriguez STUDY: CT BRAIN [...] , CC: Hannah Leos DO; Martin Rodriguez Oil Expeller Operator: Signed 08-Mar-2017 Elbow min 3 Views Result: Comments: See Note; NOTES: [facility] Imaging Services [address] [place] [address] Verdana 4d Elbow min 3 Views MR#: [id number] Acct: [id number] Name: HERMINIA NASH Rep #: [id number] : 1950 F 66 From: Greg Leiva MD PCP: Hannah Leos DO Status: REG CLI Study: Elbow min 3 Views Date of Exam: 03/08/17 Exam# [id number] Ordering Dr: Daniela Herzog STUDY: X-RAY - RIGHT ELBOW REASON FOR EXAM: Female, 66 years old. Pain. TECHNIQUE: 3 view(s) of the elbow. COMPARISON: None. FINDINGS: Normal visualized humerus, radius and u lab clerk. There is degenerative arthrosis of the radiocapitellar and ulnotrochlear articulations. The soft tissue structures are unremarkable. RAD/El bow min 3 Views IMPRESSION: No acute fracture or dislocation. Arthrosis. Electronically Signed: Greg Leiva MD at 14:47 EDT , Service support , Fax CC: Daniela Herzog; Hannah Leos DO Oil Expeller Operator: Signed 22-Oct-2015 Bilat Scrn Digital AND CAD Result: Comments: See Note; NOTES: [facility] Imaging Services [address] [place] [address] Verdana 4d Bilat Scrn Digital AND CAD MR#: [id number] Acct: [id number] Name: HERMINIA NASH Rep #: [id number] : 1950 F 65 From: Paresh Kebede MD PCP: Hannah Leos DO Status: REG CLI Study: Bilat Scrn Digital AND CAD Date of Exam: 10/22/15 Exam# [id number] Or dering Dr: Hannah Leos DO MAMMOGRAPHY [...] Paresh Kebede MD at 16:11 EST Tel [phone], Service support [phone], CC: Hannah Leos DO Oil Expeller Operator: Signed 22-Oct-2015 Dexa Bone Density Study (HP) Result: Comments: See Note; NOTES: [facility] Imaging Services [address] [place] [address] Verdana 4d Dexa Bone Density Study (HP) MR#: [id number] Acct: [id number] Name : HERMINIA NASH Rep #: [id number] : 1950 F 65 From: Paresh Kebede MD PCP: Hannah Leos DO Status: [facility] Study: Dexa Bone Density Study (HP) Date of Exam: 10/22/15 Exam# [id number]: Hannah Leos DO STUDY: [...] Paresh Kebede MD at 8:05 EST Tel [phone], Service support [phone], CC: Hannah Leos DO Oil Expeller Operator: Signed 17-Oct-2015 ELECTROCARDIOGRAM, COMPLETE (ECG) (62833) Comments: nsr no acute chg Result: [MEASUREMENTS ANALYSIS] Date of Test: 10/17/2015 08:35:17; Heart Rate: 61; HI Interval: 176; QRS: 104; QT Interval: 402; Corrected QT Interval (QTc): 403; P Wave [place]: -1; QRS Wave [place]: 9; T Wave [place]: -1; Blood Pressure: 148/84 [ECG DIAGNOSTIC STATEMENTS] [...] smoker Vital Signs Date Test Result Details 97-Fpv-761528:27 Comments: mgscpalb84 BP Systolic 130 mm[Hg] Comments: Patient Position: [...] kg/m2 Body Surface Area Calculated 1.8 m2 3-Kvl-171586:36 Temperature 97.6 f Comments: Method: Temporal Pulse [...] 0.00 cm Results Date Description Value Details 46-Zhj-778662:27 Miscellaneous Lab Procedure Comments: Comments: [id number] LACOSAMIDE SER RTTest(s) Ordered: [id number] LACOSAMIDE SER [facility] [address] [place], [id number] [facility] Comments: TEST RESULT UNITS REFERENCE INTERVALLacosamideLacosamide 16.6 High ug/mL 5.0 - 10.0 Limit of Detection 0.5 Mean plasma concen LAB (Normal) trations following maintenance dose 200 mg/day 4.99 +/- 2.51 ug/mL 400 mg/day 9.35 +/- 4.22 ug/mL 600 mg/day 12.46 +/- 5. TEST 60 ug/mLPlease Note:This test was developed and its performance characteristicsdetermined by [facility]. It has not been cleared or approvedby the Food and Drug Administration. TESTING PERFORMED AT [facility]. ORIGINAL REPORT ON FILE IN LAB CONTAINS ADDITIONAL TEST SITE INFORMATION. 61-Yvv-516746:27 Valproic Acid (Depakene) Level Comments: [facility] [address] [place], [id number] VALPROIC ACID 65 ug/mL (Normal) Range: 50-100 29-Ofv-682037:31 Potassium Comments: [facility] [address] [place], [place], [address] K 4.8 mmol/L (Normal) Range: 3.5-5.1 91-Krc-120237:49 METABOLIC PANEL, COMPREHENSIVE Comments: PATIENT NOT FASTINGPERFORMED BY: [facility] [id number] [facility] [id number] ([id number]) ALT (SGPT) 1 [iU]/L (Normal) Range: 0-32 [...] be decreased and K increased. Clinicalcorrelation indicated. 83-Zpo-838737:49 CBC, PLATELETS & AUT DIFF Comments: PATIENT NOT FASTINGPERFORMED BY: [facility] Wfxleh7785 [facility] [id number] ([id number]) Immature Grans (Abs) 0.0 {x10E3/uL} (Normal) Range: [...] 3.77-5.28 WBC 5.7 {x10E3/uL} (Normal) Range: 3.4-10.8 67-Uhh-205524:16 URINE FAVIAN CULTURE-IDENTIFICATN Comments: PATIENT NOT FASTINGPERFORMED BY: RENARD [facility] [address] [place] [id number] Information: SRC:UC ([id number]) Result 1 MUG (Normal) Comments: Mixed urogenital flora10,000-25,000 colony forming units per mL Urine Final report (Normal) Culture,Comprehensive 30-Jhz-094306:14 Urinalysis, Office (85495) UA - LEUKOCYTE ESTERASE Negative (Normal) UA - NITRITE Negative (Normal) URINE UROBILINGN KEERTHI TIMED Normal mg/dL (Normal) UA - PROTEIN 100 mg/dL (Normal) UA - PH 6 (Abnormal) UA - BLOOD Negative (Normal) UA - SPECIFIC GRAVITY 1.000 (Normal) UA - KETONES Negative mg/dL (Normal) UA - BILIRUBIN Negative (Normal) UA - GLUCOSE Negative (Normal) 37-Odd-865632:31 Protein+Creatinine Ratio,Urine Comments: [facility] [address] [place], [address] PROT:CRE RATIO 1411 {mg/g_CRE} (Abnormal) Range: 0-200 PROTEIN,UR.RAN. 63.9 mg/dL (Abnormal) UR CREAT 45.30 mg/dL (Normal) 71-Skr-139700:31 Renal Profile Comments: [facility] [address] [place], [place], [address] CO2 24.0 mmol/L (Normal) Range: 21.0-32.0 CL [...] A.D.A. criteria.Please note revised GLUCOSE reference range pjoyzgvrp28/02/2018. 55-Gxd-786734:43 IGA/IGD/IGG/IGM-EACH (98768) Comments: PATIENT NOT FASTINGPERFORMED BY: CB [facility] Tcdnjs5104 [facility] [id number] BY: [facility] [address] [id number] Immunoglobulin E, Total 15 {IU/mL} (Normal) Range: 0-100 Immunoglobulin M, Qn, Serum 84 mg/dL (Normal) Range: 26-217 Immunoglobulin A, Qn, Serum 265 mg/dL (Normal) Range: 87-352 Immunoglobulin G, Qn, Serum 1461 mg/dL (Normal) Range: 700-1600 84-Sdn-548481:40 Urinalysis, Complete Comments: Order Date: 03/25/18COLOR OF URINE MAY AFFECT DIPSTICK RESULTS.How was Urine Obtained? FURNACE FILLER TO SPECIFYHol[facility] [address] [place], [place], [address] AMORPHOUS 2+ (Normal) MUCUS, URINE 0 SEEN [...] CLARITY Sl. Cloudy (Normal) COLOR Mitra (Normal) 75-Rhq-517558:45 CBC W/Diff, Automated Comments: [facility] [address] [place], [address] RED CELL MORPH NORM C+C {NORMAL} (Normal) [...] 4.2-5.4 WBC 5.2 K/mm3 (Normal) Range: 4.4-11.0 00-Sxr-107468:45 Comprehensive Metabolic Profil Comments: [facility] [address] [place], [address] GAP 13 (Normal) Range: 5-15 CO2 20.0 [...] A.D.A. criteria.Please note revised GLUCOSE reference range zxjfrfbip70/02/2018. 14-Iig-504107:45 Lactic Acid Comments: Yes/No query for Sepsis Lactate Rule [facility] [address] [place], [place], [address] LACTIC ACID 4.8 mmol/L (Abnormal) Range: 0.4-2.0 Comments: Critical Result(s) Called at: 13:34:37 03/25/2018 by:Morenita Zamora 59-Cxt-930006:45 Partial Thromboplast Time Comments: [facility] [address] [place], [place], [address] PTT 37.8 s (Abnormal) Range: 24.1-36.2 44-Zyg-660385:45 Prothrombin Time w/INR Comments: [facility] [address] [place], [place], [address] INR 1.1 (Normal) PROTIME 14.6 s (Normal) Range: 11.7-14.9 02-Vre-428172:45 Troponin-I Comments: [facility] [address] [place], [place], [address] TROPONIN-I < 0.015 ng/mL (Normal) Comments: TROPONIN-I EXPECTED VALUES <0.045 Negative 0.045 - 0.590 Consistent with Cardiac Damage > OR = 0.600 Critical Value Not every elevated troponin is indicative of UT. T hesevalues should be used with clinical judgement in examiningthe patient's clinical picture for diagnosis. To establisha diagnosis of UT versus myocardial injury, there must be ademonstrated rise and/ or fall in the troponin values, inaddition to ischemic symptoms, EKG changes, new regionalwall motion abnormality, and/or angiographical evidence. PLEASE NOTE: REFERENCE RANGES EDITED 01/10/1821-Mar-201875-Lwf-366140:12 Microscopic Examination Comments: PATIENT WAS FASTINGPERFORMED BY: [facility] L[address]vuk[address] [facility] [id number] Bacteria Moderate (Abnormal) Mucus Threads Present (Normal) Epithelial Cells (non renal) 0-10 {/hpf} (Normal) Range: 0 - 10 RBC 3-10 {/hpf} (Abnormal) Range: 0 - 2 WBC >30 {/hpf} (Abnormal) Range: 0 - 5 Comments: Clumps of leukocytes present. 32-Yfu-546390:57 HgA1C , Office (75599) HgA1C , Office 9.8 % (Abnormal) Range: 4.6 - 7.1 26-Ycq-047388:56 Microalb:Creat Ratio,Random UR Comments: [facility] [address] [place], [address] MALB:CREAT 3256.8 {mg/g_CRE} (Abnormal) MICROALBUMIN,UR 2410.0 mg/L (Normal) UR CREAT 74.00 mg/dL (Normal) 11-Bpg-905396:12 CALCIFIDIOL (92623) VIT D 25 Comments: PATIENT WAS FASTINGPERFORMED BY: QPD [facility] [address] [place] [id number] Vitamin D, 25-Hydroxy 18.2 ng/mL (Abnormal) Range: 30.0-100.0 Comments: Vitamin D deficiency has been defined by the [place] of[place]icine and an Endocrine Society practice guideline as alevel of serum 25-OH vitamin D less than 20 ng/mL (1,2).The Endocrine Society went on to further define vitamin Dinsufficiency as a level between 21 and 29 ng/mL (2).1. IOM ([place] of [employer]). 2010. Dietary reference intakes for calcium and D. [place]: The National Academies Press.2. Swathi MF, Alexandra [place], Judy OLMEDO, et al. Evaluation, treatment, and prevention of vitamin D deficiency: an Endocrine Society clinical practice guideline. JCEM. 2010; 96(7):1911-30. 17-Vjw-326464:12 TSH (47013) Comments: PATIENT WAS FASTINGPERFORMED BY: CB [facility] [address] [place] [id number] TSH 3.550 {uIU/mL} (Normal) Range: 0.450-4.500 66-Dhi-450208:12 URINALYSIS, W/ MICRO (16811) Comments: PATIENT WAS FASTINGPERFORMED BY: CB [facility] [address] [place] [id number] Microscopic Examination See below: (Normal) Comments: Microscopic was indicated and was performed. Nitrite, Urine Positive (Abnormal) Urobilinogen,Semi-Qn 0.2 mg/dL (Normal) Range: 0.2-1.0 Bilirubin Negative (Normal) Occult Blood Trace (Abnormal) Ketones Negative (Normal) Glucose Negative (Normal) Protein 3+ (Abnormal) WBC Esterase 2+ (Abnormal) Appearance Cloudy (Abnormal) Urine-Color Yellow (Normal) pH 6.0 (Normal) Range: 5.0-7.5 Specific [place] 1.021 (Normal) Range: 1.005-1.030 03-Mxw-802400:12 MICROALBUMIN: CREATININE RATIO Comments: PATIENT WAS FASTINGPERFORMED BY: [facility]zxfnz8242 [facility] [id number] (07580) AND (08031) Alb/Creat Ratio 5216.8 {mg/g_creat} (Abnormal) Range: 0.0-30.0 Albumin, Urine 4387.3 ug/mL (Normal) Comments: Results confirmed ondilution. Creatinine, Urine 84.1 mg/dL (Normal) 14-Enw-069139:12 METABOLIC PANEL, COMPREHENSIVE Comments: PATIENT WAS FASTINGPERFORMED BY: [facility]sG[facility] HospitalLfvotg4452 [facility] [id number] (30508) ALT (SGPT) 3 [iU]/L (Normal) Range: 0-32 [...] 8-27 Glucose 222 mg/dL (Abnormal) Range: 65-99 28-Cxc-594656:12 LIPID PANEL (93101) Comments: PATIENT WAS FASTINGPERFORMED BY: Thinglink70 [facility] [id number] VLDL Cholesterol Luis VLDLCH mg/dL (Normal) Range: 5-40 Comments: The calculation for the VLDL cholesterol is not valid whentriglyceride level is >400 mg/dL.Triglyceride result indicated is too high for an accurate LDLcholesterol estimation. HDL Cholesterol 29 mg/dL (Abnormal) Triglycerides 861 mg/dL (Abnormal) Range: 0-149 Cholesterol, Total 182 mg/dL (Normal) Range: 100-199 57-Wpf-130657:12 CBC W/AUTO DIFF WBC (14620) Comments: PATIENT WAS FASTINGPERFORMED BY: [employer] [facility] [id number] Immature Grans (Abs) 0.0 {x10E3/uL} (Normal) Range: [...] (Normal) Range: 3.4-10.8 :14 HgA1C , Office (41264) HgA1C , Office 8.7 % (Abnormal) Range: 4.6 - 7.1 :14 Blood Glucose , Office (06638) Blood Glucose , Office 225 (Normal) 81-Uzr-345941:06 Bedside Glucose Comments: [facility] LaboratoryPoint of Doxw5922 [facility]. [place], [place] [address] BEDSIDE GLU 144 mg/dL (Abnormal) Range: 70-110 Comments: MANAGEMENT OF PATIENT CARE PER NURSING PROTOCOL 0-Ejm-530513:49 Basic Metabolic Profile (BMP) Comments: [facility] Qytwoqoukr8169 [facility]. [place], [place], [address] GAP 6 (Normal) Range: 5-15 CO2 29.0 [...] A.D.A. criteria.Please note revised GLUCOSE reference range plwygbcpc08/02/2018. 7-Lxo-270063:49 CBC-Complete Blood Cnt No Diff Comments: [facility] [address] [place], [address] MPV 10.3 fL (Normal) Range: [...] 4.2-5.4 WBC 8.0 K/mm3 (Normal) Range: 4.4-11.0 3-Ckj-749202:49 Prothrombin Time w/INR Comments: [facility] Zf[address] [place], [place], [address] INR 1.0 (Normal) PROTIME 13.3 s (Normal) Range: 11.7-14.9 7-Ebx-736730:49 Urinalysis, Complete Comments: How was Urine Obtained? FURNACE FILLER [facility] [address]xncwa[address] [place], [address] MUCUS, URINE 0 SEEN {/hpf} [...] CLARITY Sl. Cloudy (Normal) COLOR Yellow (Normal) 9-Vmg-154317:44 Miscellaneous Lab Procedure Comments: Comments: LACOSAMIDE [id number] RED/RTTest(s) Ordered: LACOSAMIDE [id number] [facility] Amqxwzrucr9830 [facility] [place], [place], [address] [facility]: TEST RESULT LIMITSLacosamide Lacosamide 13.0 High [...] Food and Drug Administration. TESTING PERFORMED AT [facility]. ORIGINAL REPORT ON FILE IN LAB CONTAINS ADDITIONAL TEST SITE INFORMATION. 65-Kxm-529163:21 URINE FAVIAN CULTURE-KEERTHI COL Comments: PATIENT NOT FASTINGPERFORMED BY: RENARD [facility] Fzhzrg9[address] [place] [place] [id number] Information: SRC:UC COUNT (76620) Result 1 MTHREE (Normal) Comments: More than 3 organisms recovered, none predominant. Please submitanother culture if clinically indicated.Greater than 100,000 colony forming units per mL Urine Final report (Normal) Culture,Comprehensive 23-Dwz-038531:12 Urinalysis, Office (08362) UA - LEUKOCYTE ESTERASE Negative (Normal) UA - NITRITE Negative (Normal) URINE UROBILINGN KEERTHI TIMED 2 mg/dL (Normal) UA - PROTEIN 100 mg/dL (Normal) UA - PH 7 (Normal) UA - BLOOD Negative (Normal) UA - SPECIFIC GRAVITY 1.010 (Normal) UA - KETONES Negative mg/dL (Normal) UA - BILIRUBIN Negative (Normal) UA - GLUCOSE 500 (Abnormal) 81-Fbe-127558:53 Microalb:Creat Ratio,Random UR Comments: [facility] Fothitnhzz4709 [facility] [address]. [place], [place], [id number] MALB:CREAT 331.9 {mg/g_CRE} (Abnormal) MICROALBUMIN,UR 235.0 mg/L (Normal) UR CREAT 70.80 mg/dL (Normal) 78-Qof-509771:45 Urinalysis, Complete Comments: Order Date: 10/13/17How was Urine Obtained? CLEAN [facility]WTr[facility] Icjlrfvaud6580 [facility] [address]. [place], [place], [id number] MUCUS, URINE RARE {/hpf} (Normal) BACTERIA RARE [...] CLARITY Sl. Cloudy (Normal) COLOR Yellow (Normal) 22-Lbz-650805:55 Albumin, Serum Comments: DR ALVAREZ ADDED A RENAL PANELHolzer Medical Center [facility] Occokaguml9447 [facility]. [place], [place], [address] ALB 3.7 g/dL (Normal) Range: 3.2-5.0 63-Flm-206332:55 Basic Metabolic Profile (BMP) Comments: DR ALVAREZ ADDED A RENAL PANELHolzer Medical Center [facility] Awnvdjugsc5856 [facility] [place], [place], [address] GAP 12 (Normal) Range: 5-15 CO2 20.0 [...] A.D.A. criteria.Please note revised GLUCOSE reference range qkrszwear42/02/2018. 21-Cjm-015771:55 CBC W/Diff, Automated Comments: [facility] [address]youxx[address] [place], [address] Absolute Lymph 0.27 {X10_3/ul} (Abnormal) [...] 4.2-5.4 WBC 8.9 K/mm3 (Normal) Range: 4.4-11.0 34-Nyi-547324:55 Lactic Acid Comments: Yes/No query for Sepsis Lactate Rule YHol[facility] Rbcevvlria[address] [place], [address] LACTIC ACID 2.8 mmol/L (Abnormal) Range: 0.4-2.0 Comments: Critical Result(s) Called at: 13:50:00 10/13/2017 by:Morenita Roberts to [facility] 94-Zwq-653479:55 Phosphorus Comments: DR ALVAREZ ADDED A RENAL PANELWTrumbull [facility] Hospital [address]jdmjkjjc[address] [place], [address] PHOS 2.2 mg/dL (Abnormal) Range: 2.5-4.9 0-Rtg-694825:55 Basic Metabolic Profile (BMP) Comments: 'TROP' Serial specimen #1, #2, #3, or #4: 1WTrumbull [facility] Hospital Fmtrkkrgud0642 [place], [address] GAP 11 (Normal) Range: 5-15 [...] 126 mg/dLsuggests DIABETES MELLITUS per A.D.A. criteria. 4-Auk-308451:55 CBC W/Diff, Automated Comments: [facility] [address]wwvpt[address] [place], [address] Absolute Lymph 3.74 {X10_3/ul} (Normal) [...] 4.2-5.4 WBC 7.8 K/mm3 (Normal) Range: 4.4-11.0 0-Drf-713872:55 Troponin-I Comments: 'TROP' Serial specimen #1, #2, #3, or #4: [address] [place] [address] Wbdzjupspk8594 [facility] [place], [place], [address] TROPONIN-I 0.03 ng/mL (Normal) Comments: TROPONIN-I EXPECTED VALUES <0.05 NEGATIVE 0.06 - 0.59 AT RISK OF UT > OR = 0.60 SUGGEST UT 07-Oct-20179:39 URINE FAVIAN CULTURE-KEERTHI COL Comments: PATIENT NOT FASTINGPERFORMED BY: [facility] Cjveoa6286 [facility] [id number] Information: SRC:UC COUNT (74068) Antimicrobial MIHEAD (Normal) Comments: S = Susceptible; [...] mL (Abnormal) Urine Final report Culture,Comprehensive (Abnormal) 5-Xtj-653232:28 Urinalysis, Office (09927) UA - LEUKOCYTE ESTERASE Trace (Normal) UA - NITRITE Negative (Normal) URINE UROBILINGN KEERTHI TIMED Normal mg/dL (Normal) UA - PROTEIN Negative mg/dL (Normal) UA - PH 6 (Abnormal) UA - BLOOD Hemolyzed Trace (Normal) UA - SPECIFIC GRAVITY 1.005 (Normal) UA - KETONES Negative mg/dL (Normal) UA - BILIRUBIN Negative (Normal) UA - GLUCOSE 500 (Abnormal) 22-Efz-28513:50 HgA1C , Office (34325) HgA1C , Office 7.5 % (Abnormal) Range: 4.6 - 7.1 40-Eqh-80995:50 Blood Glucose , Office (98599) Blood Glucose , Office 196 (Normal) 44-Mju-206169:34 Free T3 Comments: [facility] [address] [place], [place], [address] ; appt 09/21 FREE T3 2.0 pg/mL (Abnormal) Range: 2.18-3.98 36-Klq-146704:34 T4 Free Direct Comments: [facility] [address] [place] [address], [address] T4 FREE DIRECT 1.06 ng/dL (Normal) Range: 0.76-1.46 97-Myp-992894:34 Thyroid Stim Hormone (TSH) Comments: [facility] [address] [place], [address] TSH 0.86 {uIU/mL} (Normal) Range: 0.358-3.74 4-Xro-708897:55 Basic Metabolic Profile (BMP) Comments: [facility] [address] [place], [place], [address] ; jesus alberto fernandes GAP 10 (Normal) [...] <126 mg/dLsuggests IMPAIRED HOMEOSTASIS per A.D.A. criteria. 6-Psj-637497:55 CBC W/Diff, Automated Comments: [facility] [address]uvqrzk[address] [place], [place], [address] Absolute Lymph 3.21 {X10_3/ul} (Normal) Range: 0.83-4.51 [...] 4.2-5.4 WBC 8.0 K/mm3 (Normal) Range: 4.4-11.0 20-Niq-830412:28 Microscopic Examination Comments: PATIENT NOT FASTINGPERFORMED BY: [facility] [id number] Bacteria Few (Normal) Mucus Threads Present (Normal) Epithelial Cells (non renal) 0-10 {/hpf} (Normal) Range: 0 - 10 RBC 11-30 {/hpf} (Abnormal) Range: 0 - 2 WBC 11-30 {/hpf} (Abnormal) Range: 0 - 5 26-Uln-634300:28 MICROALBUMIN: CREATININE RATIO Comments: PATIENT NOT FASTINGPERFORMED BY: [facility]rl [facility] [id number] (06105) AND (53787) Microalb/Creat Ratio 3121.4 {mg/g_creat} (Abnormal) Range: 0.0-30.0 Microalbumin, Urine 2728.1 ug/mL (Normal) Comments: Results confirmed ondilution. Creatinine, Urine 87.4 mg/dL (Normal) 27-Tpi-765525:28 URINALYSIS (74165) Comments: PATIENT NOT FASTINGPERFORMED BY: [facility] MaintenanceNet [facility] [id number] Microscopic Examination See below: (Normal) Comments: Microscopic was indicated and was performed. Nitrite, Urine Negative (Normal) Urobilinogen,Semi-Qn 0.2 mg/dL (Normal) Range: 0.2-1.0 Bilirubin Negative (Normal) Occult Blood 2+ (Abnormal) Ketones Negative (Normal) Glucose Negative (Normal) Protein 3+ (Abnormal) WBC Esterase 1+ (Abnormal) Appearance Clear (Normal) Urine-Color Yellow (Normal) pH 6.5 (Normal) Range: 5.0-7.5 Specific [place] 1.014 (Normal) Range: 1.005-1.030 42-Ofe-992195:33 Urinalysis, Complete Comments: Order Date: 06/20/17Has pt arrived? YHow was Urine Obtained? CLEAN [facility] [address]vmu[address] [place], [place], [address] HYALINE CAST 0-5 SEEN {/lpf} (Normal) Range: [...] (Normal) CLARITY Clear (Normal) COLOR Straw (Normal) 60-Put-750691:42 Basic Metabolic Profile (BMP) Comments: [facility] [address]feojbfkv[address] [place], [place], [address] GAP 14 (Normal) Range: 5-15 CO2 22.0 [...] 126 mg/dLsuggests DIABETES MELLITUS per A.D.A. criteria. 83-Yqb-821339:42 CBC W/Diff, Automated Comments: [facility] Okcbhcldby[address] [place], [place], [address] Absolute Lymph 2.82 {X10_3/ul} (Normal) Range: 0.83-4.51 [...] (Normal) Range: 4.4-11.0 :18 HgA1C , Office (90343) HgA1C , Office 6.4 % (Normal) Range: 4.6 - 7.1 :18 Blood Glucose , Office (91548) Blood Glucose , Office 173 (Normal) 8-Vbx-052547:20 Urine Culture,Comprehensive Comments: PERFORMED BY: LabCoGreystone Park Psychiatric HospitalIaagea9888 [facility] [id number] Information: SRC:UR Antimicrobial MIHEAD (Normal) Comments: S [...] mL (Abnormal) Urine Final report Culture,Comprehensive (Abnormal) 89-Iki-755123:14 Basic Metabolic Profile (BMP) Comments: [facility] [address]aihwd[address] [place], [address] GAP 14 (Normal) Range: 5-15 CO2 20.0 [...] 126 mg/dLsuggests DIABETES MELLITUS per A.D.A. criteria. 3-Ztr-226359:15 URINE FAVIAN CULTURE-IDENTIFICATN Comments: PATIENT NOT FASTINGPERFORMED BY: [facility] Vqhspt0761 [facility] [id number] Information: SRC:ARNOLD (61217) Antimicrobial MIHEAD (Normal) Comments: S = Susceptible; [...] mL (Abnormal) Urine Final report Culture,Comprehensive (Abnormal) 3-Ybz-000671:19 Urinalysis, Office (01547) UA - LEUKOCYTE ESTERASE Moderate (Normal) UA - NITRITE Negative (Normal) URINE UROBILINGN KEERTHI TIMED Normal mg/dL (Normal) UA - PROTEIN 300 mg/dL (Normal) UA - PH 6 (Abnormal) UA - BLOOD Hemolyzed Trace (Normal) UA - SPECIFIC GRAVITY 1.025 (Normal) UA - KETONES Negative mg/dL (Normal) UA - BILIRUBIN Negative (Normal) UA - GLUCOSE Negative (Normal) 12-Omi-098228:31 Urinalysis, Office (08226) UA - LEUKOCYTE ESTERASE Negative (Normal) UA - NITRITE Negative (Normal) URINE UROBILINGN KEERTHI TIMED Normal mg/dL (Normal) UA - PROTEIN 300 mg/dL (Normal) UA - PH 6 (Abnormal) UA - BLOOD Negative (Normal) UA - SPECIFIC GRAVITY 1.015 (Normal) UA - KETONES Negative mg/dL (Normal) UA - BILIRUBIN Negative (Normal) UA - GLUCOSE Negative (Normal) 42-Wgc-429909:47 URINE FAVIAN CULTURE-IDENTIFICATN Comments: PATIENT NOT FASTINGPERFORMED BY: [facility] Hgsfvg0892 [facility] [id number] Information: SRC:ARNOLD (55849) Result 1 BETAGB (Abnormal) Comments: Beta hemolytic [...] (CLSI 2011) Urine Final report (Abnormal) Culture,Comprehensive 66-Dee-80103:50 Urinalysis, Complete Comments: How was Urine Obtained? [facility] SPECIMENWTr[facility] Hospital Qphzztpmrg0076 [address]andraannie [place], [place], [address] MUCUS, URINE 0 SEEN {/hpf} (Normal) BACTERIA [...] Straw (Normal) :25 CBC W/Diff, Automated Comments: [facility] [address]lft[address] [place], [address] Absolute Lymph 2.00 {X10_3/ul} (Normal) [...] Serial specimen #1, #2, #3, or #4: 1WTrumbull [facility] Hospital Qcgzecrqvg1284 [place], [address] GAP 7 (Normal) Range: 5-15 [...] A.D.A. criteria. :25 Partial Thromboplast Time Comments: [facility] [address] [place], [address] PTT 54.7 s (Abnormal) Range: 24.1-36.2 :25 Prothrombin Time w/INR Comments: [facility] Dag[address] [place], [address] INR 1.0 (Normal) PROTIME 13.2 s (Normal) Range: 11.7-14.9 :25 Troponin-I Comments: 'TROP' Serial specimen #1, #2, #3, or #4: 1WTrumbull [facility] Hospital Iwifekmztp[address] [place], [address] TROPONIN-I < 0.02 ng/mL (Normal) Comments: TROPONIN-I EXPECTED VALUES <0.05 NEGATIVE 0.06 - 0.59 AT RISK OF UT > OR = 0.60 SUGGEST UT :23 Bedside Glucose Comments: [facility] LaboratoryPoint of Ojnz[address] [place] [address] BEDSIDE GLU 129 mg/dL (Abnormal) Range: 70-110 Comments: Dr Gemma FelderMANAGEMENT OF PATIENT CARE PER NURSING PROTOCOL :42 Microscopic Examination Comments: PATIENT NOT FASTINGPERFORMED BY: Path.To [facility] [id number] BY: Power[employer] [id number] Bacteria Few (Normal) Mucus Threads Present (Normal) Cast Type Hyaline casts (Normal) Casts Present {/lpf} (Abnormal) Epithelial Cells (non renal) 0-10 {/hpf} (Normal) Range: 0 - 10 RBC >30 {/hpf} (Abnormal) Range: 0 - 2 WBC 0-5 {/hpf} (Normal) Range: 0 - 5 :42 CCP ANTIBODY (06206) Comments: PATIENT NOT FASTINGPERFORMED BY: Path.To [facility] [id number] BY: [employer] [id number] CCP Antibodies IgG/IgA <1 {units} (Normal) Range: 0-19 Comments: Negative <20 Weak positive 20 - 39 Moderate positive 40 - 59 Strong positive >59 :42 RHEUMATOID FACTOR-QUAL Comments: PATIENT NOT FASTINGPERFORMED BY: Path.To [facility] [id number] BY: [employer] [id number] (21275) RA Latex Turbid. <10.0 {IU/mL} (Normal) Range: 0.0-13.9 :42 C-Reactive Protein (98708) Comments: PATIENT NOT FASTINGPERFORMED BY: [place] [address] [facility] [id number] BY: [address] [id number] C-Reactive Protein, Quant 2.5 mg/L (Normal) Range: 0.0-4.9 :42 SED RATE ERYTHROCYTE Comments: PATIENT NOT FASTINGPERFORMED BY: LabTammy [place]ille [address] [facility] [id number] BY: [address] [id number] (68886) Sedimentation Rate-Westergren 44 mm/h (Abnormal) Range: 0-40 :42 URIC ACID BLOOD (89460) Comments: PATIENT NOT FASTINGPERFORMED BY: SwapMobTammy [place] [address]18[address] [facility] [id number] BY: [address] [id number] Uric Acid, Serum 8.5 mg/dL (Abnormal) Range: 2.5-7.1 Comments: Therapeutic target for gout patients: <6.0 :42 Metabolic Panel, Comments: PATIENT NOT FASTINGPERFORMED BY: LabTammy [place] 45818[address] [facility] [id number] BY: [address] [id number] Comprehensive (16605) ALT (SGPT) <5 [iU]/L (Normal) Range: 0-32 [...] MICROALBUMIN: CREATININE Comments: PATIENT NOT FASTINGPERFORMED BY: [facility] MaintenanceNet [facility] [id number] BY: SwapMob[address] [id number] RATIO (03611) AND (82450) Microalb/Creat Ratio 1390.9 {mg/g_creat} (Abnormal) Range: 0.0-30.0 Microalbumin, Urine 948.6 ug/mL (Normal) Comments: Results confirmed ondilution. Creatinine, Urine 68.2 mg/dL (Normal) :42 URINALYSIS (65490) Comments: PATIENT NOT FASTINGPERFORMED BY: [facility]eboxGreystone Park Psychiatric HospitalGncqqf3690 [facility] [id number] BY: [employer] [id number] Microscopic Examination See below: (Normal) Comments: Microscopic was indicated and was performed. Nitrite, Urine Negative (Normal) Urobilinogen,Semi-Qn 0.2 mg/dL (Normal) Range: 0.2-1.0 Bilirubin Negative (Normal) Occult Blood 3+ (Abnormal) Ketones Negative (Normal) Glucose Negative (Normal) Protein 3+ (Abnormal) WBC Esterase Negative (Normal) Appearance Clear (Normal) Urine-Color Yellow (Normal) pH 6.0 (Normal) Range: 5.0-7.5 Specific [place] 1.019 (Normal) Range: 1.005-1.030 46-Gro-75504:42 CBC, Platelets & Auto Comments: PATIENT NOT FASTINGPERFORMED BY: CB [facility] Oofhuy3468 [facility] [id number] BY: BN [facility] [address] [id number] Diff (96504) Immature Grans (Abs) 0.0 {x10E3/uL} (Normal) Range: [...] Range: 3.4-10.8 :32 Rapid Strep Test, Office (31250) Rapid Strep Test, Office Negative (Normal) :28 Microscopic Examination Comments: PATIENT WAS FASTINGPERFORMED BY: [employer] Oaqpvv8228 [address]ados RoadDublin [place] [id number] Bacteria Few (Normal) Mucus Threads Present (Normal) Epithelial Cells (non renal) 0-10 {/hpf} (Normal) Range: 0 - 10 RBC 0-2 {/hpf} (Normal) Range: 0 - 2 WBC 0-5 {/hpf} (Normal) Range: 0 - 5 :28 CALCIFIDIOL (08708) VIT D 25 Comments: PATIENT WAS FASTINGPERFORMED BY: CaterCow[address] [facility] [place] [id number] Vitamin D, 25-Hydroxy 42.0 ng/mL (Normal) Range: 30.0-100.0 Comments: Vitamin D deficiency has been defined by the [place] of[facility] and an Endocrine Society practice guideline as alevel of serum 25-OH vitamin D less than 20 ng/mL (1,2).The Endocrine Society went on to further define vitamin Dinsufficiency as a level between 21 and 29 ng/mL (2).1. IOM ([place] of Medicine). 2010. Dietary reference intakes for calcium and D. [place]: The National Academies Press.2. Swathi MF, Alexandra NC, Judy OLMEDO, et al. Evaluation, treatment, and prevention of vitamin D deficiency: an Endocrine Society clinical practice guideline. JCEM. 2010; 96(7):1911-30. :28 TSH (85699) Comments: PATIENT WAS FASTINGPERFORMED BY: [facility] Xzzmzl[address] [facility] [place] [id number] TSH 1.360 {uIU/mL} (Normal) Range: 0.450-4.500 :28 URINALYSIS, W/ MICRO (41887) Comments: PATIENT WAS FASTINGPERFORMED BY: [employer] Betrfc6482 [facility] [id number] Microscopic Examination See below: (Normal) Comments: Microscopic was indicated and was performed. Nitrite, Urine Negative (Normal) Urobilinogen,Semi-Qn 0.2 mg/dL (Normal) Range: 0.2-1.0 Bilirubin Negative (Normal) Occult Blood Trace (Abnormal) Ketones Negative (Normal) Glucose Negative (Normal) Protein 4+ (Abnormal) WBC Esterase Negative (Normal) Appearance Clear (Normal) Urine-Color Yellow (Normal) pH 6.0 (Normal) Range: 5.0-7.5 Specific [place] 1.019 (Normal) Range: 1.005-1.030 :28 MICROALBUMIN: CREATININE RATIO Comments: PATIENT WAS FASTINGPERFORMED BY: [employer] Hcbrqv7167 [facility] [id number] (02755) AND (24070) Microalb/Creat Ratio 2972.2 {mg/g_creat} (Abnormal) Range: 0.0-30.0 Microalbumin, Urine 2264.8 ug/mL (Normal) Comments: Results confirmed ondilution. Creatinine, Urine 76.2 mg/dL (Normal) :28 METABOLIC PANEL, COMPREHENSIVE Comments: PATIENT WAS FASTINGPERFORMED BY: [employer] Ikwbcf4884 [facility] [id number] (04469) ALT (SGPT) <5 [iU]/L (Normal) Range: 0-32 [...] Glucose, Serum 103 mg/dL (Abnormal) Range: 65-99 0-Qjg-504507:28 LIPID PANEL (90114) Comments: PATIENT WAS FASTINGPERFORMED BY: [facility]6370 [facility] [id number] VLDL Cholesterol Luis VLDLCH mg/dL (Normal) Range: [...] Range: 100-199 :28 CBC W/AUTO DIFF WBC (70199) Comments: PATIENT WAS FASTINGPERFORMED BY: [facility] Xvsyxc[address] [place] [id number] Immature Grans (Abs) 0.0 {x10E3/uL} (Normal) Range: [...] (Normal) Range: 3.4-10.8 :05 HgA1C , Office (03095) HgA1C , Office 6.2 % (Normal) Range: 4.6 - 7.1 :05 Blood Glucose , Office (52045) Blood Glucose , Office 119 (Normal) :09 Basic Metabolic Profile (BMP) Comments: [facility] A[address]vahydqpd[address] [place], [place], [address] GAP 10 (Normal) Range: 5-15 CO2 26.0 [...] <126 mg/dLsuggests IMPAIRED HOMEOSTASIS per A.D.A. criteria. 42-Hdp-072226:21 Basic Metabolic Profile (BMP) Comments: [facility] Rwrdnheakd3789 [facility] Center[facility] [place], [place], [address] GAP 6 (Normal) Range: 5-15 CO2 28.0 [...] (Normal) Range: 4.5-5.6 Comments: Performed at: - Lab[address] [id number] Director: Hernesto Mclean PhD, Phone: [phone] 72-Pao-521514:21 Protein Electro.Ur-Random Comments: [facility] (refer to report for specific site)refer to report for address and phone number M-SPIKE,U (Normal) Comments: NOT OBSERVED GAMMA GLOB,U 6.5 % (Normal) BETA GLOB,U 9.7 % (Normal) YXPTQ-9-XZQZ,U 2.6 % (Normal) FCVWR-1-ABFO,U 2.8 % (Normal) ALBUMIN,UR 78.4 % (Normal) PROTEIN,UR 121.4 mg/dL (Abnormal) Range: 0.0-15.0 :21 Protein Electroph, S Comments: [facility] (refer to report for specific site)refer to report for address and phone number NOTE Comment (Normal) Comments: Protein electrophoresis scan will follow via computer,mail, or addiction professional delivery. NOTE: Comment (Normal) Comments: The SPE pattern appears essentially unremarkable. Evidenceof monoclonal protein is not apparent. INTERPRETATION Comment (Normal) Comments: Protein electrophoresis scan will follow via computer,mail, or addiction professional delivery. A/G RATIO 1.0 (Normal) Range: 0.7-2.0 [...] Range: 6.0-8.5 :28 CBC W/Diff, Automated Comments: [facility] O[address]ryjrqpo[address] [place], [place], [address] Absolute Lymph 1.84 {X10_3/ul} (Normal) Range: 0.83-4.51 [...] Range: 4.4-11.0 :28 Comprehensive Metabolic Profil Comments: [facility] Rbpwctyttb48[address]. [place], [place], [address] GAP 10 (Normal) Range: 5-15 CO2 28.0 [...] per A.D.A. criteria. :28 Hemoglobin A1c Comments: [facility] Cpdceeyubk[address] [facility] [address], [address] HGB A1C 6.3 % (Normal) Range: 4.2-6.3 :28 Lipid Profile Comments: [facility] [address] [place], [address] VLDL Test not performed mg/dL [...] High Risk :28 Microalb:Creat Ratio,Random UR Comments: [facility] [address] [place], [place], [address] MALB:CREAT 6612.5 {mg/g_CRE} (Abnormal) MICROALBUMIN,UR 2850.0 mg/L (Normal) UR CREAT 43.10 mg/dL (Normal) :28 Thyroid Stim Hormone (TSH) Comments: [facility] F[address]ugqqgfuv[address] [place], [address] TSH 2.14 {uIU/mL} (Normal) Range: 0.358-3.74 :28 Urinalysis, Complete Comments: How was Urine Obtained? [facility] [address] [place], [address] MUCUS, URINE 0 SEEN {/hpf} [...] (Prothrobim Time) Comments: PATIENT NOT FASTINGPERFORMED BY: [place] [id number] [facility] [id number] Information: [id number],2ND ORDER (85792) Prothrombin Time 14.9 {sec} (Abnormal) Range: 9.1-12.0 INR 1.4 (Abnormal) Range: 0.8-1.2 Comments: Reference interval is for non-anticoagulated patients. . Suggested INR therapeutic range for Vitamin K anta gonist therapy: Standard Dose (moderate intensity therapeutic range): 2.0 - 3.0 Higher intensity therapeutic range 2.5 - 3.5 :59 PT (Prothrobim Time) Comments: PATIENT NOT FASTINGPERFORMED BY: [place] [id number] [facility] [id number] Information: [id number] ([id number]) Prothrombin Time 37.7 {sec} (Abnormal) Range: 9.1-12.0 INR 3.4 (Abnormal) Range: 0.8-1.2 Comments: Reference interval is for non-anticoagulated patients. . Suggested INR therapeutic range for Vitamin K anta gonist therapy: Standard Dose (moderate intensity therapeutic range): 2.0 - 3.0 Higher intensity therapeutic range 2.5 - 3.5 :08 HgA1C , Office (64597) HgA1C , Office 6.2 % (Normal) Range: 4.6 - 7.1 :08 Blood Glucose , Office (58686) Blood Glucose , Office 126 (Normal) :42 Microscopic Examination Comments: PATIENT WAS FASTINGPERFORMED BY: [place] [address] [facility] [id number] Bacteria Few (Normal) Mucus Threads Present (Normal) Epithelial Cells (non renal) 0-10 {/hpf} (Normal) Range: 0 - 10 RBC 0-2 {/hpf} (Normal) Range: 0 - 2 WBC 0-5 {/hpf} (Normal) Range: 0 - 5 :42 MICROALBUMIN: CREATININE RATIO Comments: PATIENT WAS FASTINGPERFORMED BY: PowerReviewsGreystone Park Psychiatric HospitalSixexy1545 [facility] [id number] (77614) AND (57428) Microalb/Creat Ratio 1877.3 {mg/g_creat} (Abnormal) Range: 0.0-30.0 Microalbumin, Urine 1118.9 ug/mL (Abnormal) Range: 0.0-17.0 Creatinine, Urine 59.6 mg/dL (Normal) Range: 15.0-278.0 :42 URINALYSIS (58372) Comments: PATIENT WAS FASTINGPERFORMED BY: PowerReviewsKayenta Health CenterPbhfhu7012 [facility] [id number] Microscopic Examination See below: (Normal) Comments: Microscopic was indicated and was performed. Nitrite, Urine Negative (Normal) Urobilinogen,Semi-Qn 0.2 mg/dL (Normal) Range: 0.0-1.9 Bilirubin Negative (Normal) Occult Blood Negative (Normal) Ketones Negative (Normal) Glucose Negative (Normal) Protein 2+ (Abnormal) WBC Esterase Negative (Normal) Appearance Clear (Normal) Urine-Color Yellow (Normal) pH 6.0 (Normal) Range: 5.0-7.5 Specific [place] 1.020 (Normal) Range: 1.005-1.030 :42 TSH (19222) Comments: PATIENT WAS FASTINGPERFORMED BY: PowerReviewsGreystone Park Psychiatric HospitalEngktl3021 [facility] [id number] TSH 1.590 {uIU/mL} (Normal) Range: 0.450-4.500 :42 CBC, Platelets & Auto Comments: PATIENT WAS FASTINGPERFORMED BY: [facility]6[address] [facility] [id number] Information: [id number] Diff (69930) Immature Grans (Abs) 0.0 {x10E3/uL} (Normal) Range: [...] 3.77-5.28 WBC 5.4 {x10E3/uL} (Normal) Range: 3.4-10.8 04-Ykr-427402:42 Metabolic Panel, Comprehensive Comments: PATIENT WAS FASTINGPERFORMED BY: [facility] [id number] (93883) ALT (SGPT) 3 [iU]/L (Normal) Range: 0-32 [...] Glucose, Serum 94 mg/dL (Normal) Range: 65-99 74-Ldo-294069:42 Lipid Panel (22640) Comments: PATIENT WAS FASTINGPERFORMED BY: Thinglink70 [facility]CoolAt[facility] [id number] LDL/HDL Ratio 0.7 {ratio_units} (Normal) Range: 0.0-3.2 LDL Cholesterol Calc 25 mg/dL (Normal) Range: 0-99 VLDL Cholesterol Luis 77 mg/dL (Abnormal) Range: 5-40 HDL Cholesterol 36 mg/dL (Abnormal) Comments: According to ATP-III Guidelines, HDL-C >59 mg/dL is considered anegative risk factor for CHD. Triglycerides 387 mg/dL (Abnormal) Range: 0-149 Cholesterol, Total 138 mg/dL (Normal) Range: 100-199 14-Ldz-176026:42 CALCIFEDIOL (65707) Comments: PATIENT WAS FASTINGPERFORMED BY: [facility] [id number] Vitamin D, 25-Hydroxy 34.5 ng/mL (Normal) Range: 30.0-100.0 Comments: Vitamin D deficiency has been defined by the [place] of[place] and an Endocrine Society practice guideline as alevel of serum 25-OH vitamin D less than 20 ng/mL (1,2).The Endocrine Society went on to further define vitamin Dinsufficiency as a level between 21 and 29 ng/mL (2).1. IOM ([place] of Medicine). 2010. Dietary reference intakes for calcium and D. [place]: The National Academies Press.2. Swathi MF, Alexandra MCGILL, Judy OLMEDO, et al. Evaluation, treatment, and prevention of vitamin D deficiency: an Endocrine Society clinical practice guideline. JCEM. 2010; 96(7):1911-30. 45-Rxz-287139:08 PT (Prothrobim Time) Comments: PATIENT NOT FASTINGPERFORMED BY: QPD [facility] Tyzlit8443 [address] TVAX BiomedicalCritical Access Hospitalin [place] [id number] Information: [id number] (88242) Prothrombin Time 19.4 {sec} (Abnormal) Range: 9.1-12.0 INR 1.9 (Abnormal) Range: 0.8-1.2 Comments: Reference interval is for non-anticoagulated patients. . Suggested INR therapeutic range for Vitamin K anta gonist therapy: Standard Dose (moderate intensity therapeutic range): 2.0 - 3.0 Higher intensity therapeutic range 2.5 - 3.5 94-Qcq-311687:19 Microscopic Examination Comments: PATIENT NOT FASTINGPERFORMED BY: [facility] Vholkq5500 [address] TVAX Biomedicalblin [place] [id number] Bacteria Few (Normal) Mucus Threads Present (Normal) Epithelial Cells (non renal) 0-10 {/hpf} (Normal) Range: 0 - 10 RBC >30 {/hpf} (Abnormal) Range: 0 - 3 WBC 0-5 {/hpf} (Normal) Range: 0 - 5 57-Vhz-297794:26 TSH (76269) Comments: PATIENT NOT FASTINGPERFORMED BY: [facility] Ncglck0161 [address] TVAX BiomedicalDublin [place] [id number] TSH 1.050 {uIU/mL} (Normal) Range: 0.450-4.500 04-Qca-207217:26 URINALYSIS, W/ MICRO (25645) Comments: PATIENT NOT FASTINGPERFORMED BY: [facility] Fbeogl4127 Granados RoadDublin [place] [id number] Microscopic Examination See below: (Normal) Nitrite, Urine Negative (Normal) Urobilinogen,Semi-Qn 0.2 mg/dL (Normal) Range: 0.0-1.9 Bilirubin Negative (Normal) Occult Blood 3+ (Abnormal) Ketones Negative (Normal) Glucose Negative (Normal) Protein 1+ (Abnormal) WBC Esterase Negative (Normal) Appearance Clear (Normal) Urine-Color Yellow (Normal) pH 5.5 (Normal) Range: 5.0-7.5 Specific [place] 1.018 (Normal) Range: 1.005-1.030 12-Hcf-107500:26 MICROALBUMIN: CREATININE RATIO Comments: PATIENT NOT FASTINGPERFORMED BY: [employer] Mrbmdv8685 [address] [facility] SaginawSweetLabsAtrium Health [facility] [id number] (28676) AND (46073) Microalb/Creat Ratio 524.7 {mg/g_creat} (Abnormal) Range: 0.0-30.0 Microalbumin, Urine 342.1 ug/mL (Abnormal) Range: 0.0-17.0 Creatinine, Urine 65.2 mg/dL (Normal) Range: 15.0-278.0 48-Pet-569035:26 METABOLIC PANEL, COMPREHENSIVE Comments: PATIENT NOT FASTINGPERFORMED BY: [employer] Oiileg[address] [facility] [id number] (79746) ALT (SGPT) <5 [iU]/L (Normal) Range: 0-32 [...] Glucose, Serum 74 mg/dL (Normal) Range: 65-99 94-Fyu-473497:26 LIPID PANEL (84556) Comments: PATIENT NOT FASTINGPERFORMED BY: PowerReviewsGreystone Park Psychiatric HospitalOlekno2880 [facility] [id number] LDL/HDL Ratio 1.1 {ratio_units} (Normal) Range: 0.0-3.2 LDL Cholesterol Calc 46 mg/dL (Normal) Range: 0-99 VLDL Cholesterol Luis 72 mg/dL (Abnormal) Range: 5-40 HDL Cholesterol 41 mg/dL (Normal) Comments: According to ATP-III Guidelines, HDL-C >59 mg/dL is considered anegative risk factor for CHD. Triglycerides 362 mg/dL (Abnormal) Range: 0-149 Cholesterol, Total 159 mg/dL (Normal) Range: 100-199 63-Szt-130628:26 CBC WITH MANUAL DIFF Comments: PATIENT NOT FASTINGPERFORMED BY: PowerReviewsGreystone Park Psychiatric HospitalPmscuv0033 [facility] [id number] Information: [id number] (58775) Immature Grans (Abs) 0.0 {x10E3/uL} (Normal) Range: [...] 3.77-5.28 WBC 4.3 {x10E3/uL} (Normal) Range: 3.4-10.8 91-Qdf-760864:26 Vitamin D Hydroxy (13578) Comments: PATIENT NOT FASTINGPERFORMED BY: LabCoGreystone Park Psychiatric HospitalGtxhcc7246 [facility] [id number] Vitamin D, 25-Hydroxy 37.9 ng/mL (Normal) Range: 30.0-100.0 Comments: Vitamin D deficiency has been defined by the [place] ofAccess [facility] Daytoncine and an Endocrine Society practice guideline as alevel of serum 25-OH vitamin D less than 20 ng/mL (1,2).The Endocrine Society went on to further define vitamin Dinsufficiency as a level between 21 and 29 ng/mL (2).1. IOM ([place] of Medicine). 2010. Dietary reference intakes for calcium and D. [place]: The National Academies Press.2. Swathi MF, Alexandra MCGILL, Judy OLMEDO, et al. Evaluation, treatment, and prevention of vitamin D deficiency: an Endocrine Society clinical practice guideline. JCEM. 2010; 96(7):1911-30. 90-Wkp-81610:01 HgA1C , Office (83903) HgA1C , Office 5.9 % (Normal) Range: 4.6 - 7.1 :01 Blood Glucose , Office (59712) Blood Glucose , Office 92 (Normal) 08-Pko-287895:07 HgA1C , Office (83782) HgA1C , Office 5.6 % (Normal) Range: 4.6 - 7.1 :07 Blood Glucose , Office (35464) Blood Glucose , Office 79 (Normal) :41 Vitamin D Hydroxy (55910) Comments: PATIENT WAS FASTINGPERFORMED BY: PowerReviewsGreystone Park Psychiatric HospitalDqqlhd5099 [facility] [id number] Vitamin D, 25-Hydroxy 50.7 ng/mL (Normal) Range: 30.0-100.0 Comments: Vitamin D deficiency has been defined by the [place] of[place] and an Endocrine Society practice guideline as alevel of serum 25-OH vitamin D less than 20 ng/mL (1,2).The Endocrine Society went on to further define vitamin Dinsufficiency as a level between 21 and 29 ng/mL (2).1. IOM ([place] of Medicine). 2010. Dietary reference intakes for calcium and D. [place]: The National Academies Press.2. Swathi MF, Alexandra [place], Judy OLMEDO, et al. Evaluation, treatment, and prevention of vitamin D deficiency: an Endocrine Society clinical practice guideline. JCEM. 2010; 96(7):1911-30. :41 LIPID PANEL (30382) Comments: PATIENT WAS FASTINGPERFORMED BY: [facility]University [facility]6370 [facility] [id number] Information: [id number] LDL Cholesterol Calc 81 mg/dL (Normal) Range: 0-99 LDL/HDL Ratio 1.9 {ratio_units} (Normal) Range: 0.0-3.2 HDL Cholesterol 42 mg/dL (Normal) Comments: According to ATP-III Guidelines, HDL-C >59 mg/dL is considered anegative risk factor for CHD. Triglycerides 210 mg/dL (Abnormal) Range: 0-149 VLDL Cholesterol Luis 42 mg/dL (Abnormal) Range: 5-40 Cholesterol, Total 165 mg/dL (Normal) Range: 100-199 79-Trt-323475:47 BILAT SCRN DIGITAL & CAD Radiology Report [...] Kebede M.D.July 29, 2012 at 12:51:04 PM [id number] Signed GP/GP If you are the referring physician and would like to consult andry dupree theradiologist who provided this interpretation, please contact Dana Lopez at [phone]. If this radiologist is unavailable, youwill be directed to another radiologist to assist. If yo u are a patient with a question regarding this report, pleasecontactyour referring physician directly. Professional Interpretation Provided By: [employer], Phone , These d ocuments contain legally [...] 07/29/12 1256 Sign by: Paresh Kebede MD 89-Jyd-586320:38 HgA1C , Office (73290) HgA1C , Office 5.7 % (Normal) Range: 4.6 - 7.1 30-Ago-505715:38 Blood Glucose , Office (65097) Blood Glucose , Office 91 (Normal) 91-Uhg-952418:06 LIPID PANEL (55158) Comments: PATIENT WAS FASTINGPERFORMED BY: PowerReviewsGreystone Park Psychiatric HospitalTnutoa1813 [facility] [id number] Information: [id number] LDL/HDL Ratio 1.5 {ratio_units} (Normal) Range: 0.0-3.2 [...] (Prothrobim Time) Comments: PATIENT NOT FASTINGPERFORMED BY: LabCoGreystone Park Psychiatric HospitalSgfanr3917 [facility] [id number] Information: [id number],2ND ORDER NO DRAW F EE (74681) Prothrombin Time 21.7 {sec} (Abnormal) Range: 9.1-12.0 INR 2.1 (Abnormal) Range: 0.8-1.2 Comments: Reference interval is for non-anticoagulated patients. . Suggested INR therapeutic range for Vitamin K anta gonist therapy: Standard Dose (moderate intensity therapeutic range): 2.0 - 3.0 Higher intensity therapeutic range 2.5 - 3.5 57-Zoj-138466:06 PT (Prothrobim Time) Comments: PATIENT NOT FASTINGPERFORMED BY: RENARD [facility] Wtkunk24[address] [place] [place] [id number] Information: [id number],2ND ORDER NO DRAW F EE (07923) Prothrombin Time 34.8 {sec} (Abnormal) Range: 9.1-12.0 INR 3.4 (Abnormal) Range: 0.8-1.2 Comments: Reference interval is for non-anticoagulated patients. . Suggested INR therapeutic range for Vitamin K anta gonist therapy: Standard Dose (moderate intensity therapeutic range): 2.0 - 3.0 Higher intensity therapeutic range 2.5 - 3.5 :51 Urinalysis, Office (30575) UA - BILIRUBIN Negative (Normal) UA - [...] (Abnormal) Range: 11.9-14.4 :01 HgA1C , Office (01722) HgA1C , Office 6.0 % (Normal) Range: 4.6 - 7.1 :01 Blood Glucose , Office (40109) Blood Glucose , Office 90 (Normal) :14 [...] D deficiency has been defined by the [place] of[place]icine and an Endocrine Society practice guideline as alevel of serum 25-OH vitamin D less than 20 ng/mL (1,2).The Endocrine Society went on to further define vitamin Dinsufficiency as a level between 21 and 29 ng/mL (2).1. IOM ([place] of Medicine). 2010. Dietary reference intakes for calcium and D. [place]: The National Academies Press.2. Swathi MF, Alexandra [place], Judy OLMEDO, et al. Evaluation, treatment, and prevention of vitamin D deficiency: an Endocrine Society clinical practice guideline. JCEM. 2010; 96(7): 1911-30.Performed at: [facility] [id number] Director: Gloria Patton MD, Phone: [phone] 71-Wdx-809734:13 PROT.[id number] NOTE Comment (Normal) Comments: Protein electrophoresis scan will follow via computer,mail, or addiction professional delivery.Performed at: [employer] [address] [place] [address] [id number] Director: Gloria Patton MD, Phone: [phone] M-SPIKE,U SeeNote % (Normal) Comments: Result: Not Observed GAMMA GLOB,U 5.6 % (Normal) BETA GLOB,U 8.0 % (Normal) WSVMM-0-HSWF,U 2.8 % (Normal) IRQFC-7-MOUO,U 1.4 % (Normal) ALBUMIN,UR 82.2 % (Normal) PROTEIN,UR 91.6 mg/dL (Abnormal) Range: 0.0-15.0 :1 PTH,Intact 19 pg/mL (Normal) Range: 14-72 3 :13 SPE 572207 INTERPRETATION Comment (Normal) Comments: The SPE pattern reflects a polyclonal increase in gammaglobulin due to numerous clones of plasma cells producingheterogeneous antibody in response to some form ofantigenic stimulus. Hypergammaglob-ulin emia is found in awide variety of infectious, non-infectious, and autoimmunedisease states. Evidence of monoclonal protein is notapparent.Protein electrophoresis scan will follow via computer,mail, or addiction professional delivery. A/G RATIO 1.0 (Normal) Range: 0.7-2.0 [...] 4.2-5.4 WBC 4.3 K/mm3 (Abnormal) Range: 4.4-11.0 9-Yrd-018108:06 COMP METABOLIC GAP 7 (Normal) Range: 5-15 [...] 7-18 GLU 88 mg/dL (Normal) Range: 70-110 5-Hqq-406185:06 COMPLETE UA Comments: CRITICAL VALUE REPEATED AND VERIFIED. CALLED TO GARDNER09/07/11 1153 AARON BHATIA.RESULTS READ BACK BY ELIZABETH [...] NEGATIVE CLARITY CLEAR (Normal) COLOR YELLOW (Normal) 0-Pqg-052099:06 LIPID VLDL 59 mg/dL (Abnormal) Range: 5-40 [...] 200-240 mg/dL Borderline >240 mg/dL High Risk 9-Wex-822094:06 MICROALB:CRE UR MALB:CREAT 947.9 {mg/g_CRE} (Abnormal) MICROALBUMIN,UR 583.0 mg/L (Normal) UR CREAT 61.5 mg/dL (Normal) 1-Fie-879062:06 TSH 0.75 {uIU/mL} (Normal) Range: 0.358-3.74 4-Pzj-998692:06 VIT D,25 55274 27.4 ng/mL (Abnormal) Range: 30.0-100.0 Comments: Vitamin D deficiency has been defined by the [place] of[place]icine and an Endocrine Society practice guideline as alevel of serum 25-OH vitamin D less than 20 ng/mL (1,2).The Endocrine Society went on to further define vitamin Dinsufficiency as a level between 21 and 29 ng/mL (2).1. IOM ([place] of Medicine). 2011. Dietary reference intakes for calcium and D. [place]: The National Academies Press.2. Swathi MF, Alexandra NC, Judy OLMEDO, et al. Evaluation, treatment, and prevention of vitamin D deficiency: an Endocrine Society clinical practice guideline. JCEM. 2010; 96(7): 1911-30.Performed at: [address] [id number] Director: Gloria Patton MD, Phone: [phone] 94-Ddx-419484:13 HgA1C , Office (95539) HgA1C , Office 6.0 % (Normal) Range: 4.6 - 7.1 47-Hjd-800468:13 Blood Glucose , Office (96423) Blood Glucose , Office 108 (Normal) 20-Qwv-93187:27 FAVIAN CULTURE-OTHER (06255) Comments: PATIENT NOT FASTINGPERFORMED BY: [address] [id number] Information: SRC:THRT ADD [id number] Result 1 RRF (Normal) Comments: Routine respiratory linette Upper Respiratory Culture Final report (Normal) 58-Bfv-82187:50 Rapid Strep Test, Office (88323) Rapid Strep Test, Office Negative (Normal) 83-Ssv-954434:39 Microscopic Examination Comments: PATIENT WAS FASTINGPERFORMED BY: [address] [id number] Bacteria Few (Normal) Mucus Threads Present (Normal) Epithelial Cells (non renal) 0-10 {/hpf} (Normal) Range: 0 - 10 RBC None seen {/hpf} (Normal) Range: 0 - 3 WBC 0-5 {/hpf} (Normal) Range: 0 - 5 :35 PT (PROTHROMBIN TIME) Comments: PATIENT NOT FASTINGPERFORMED BY: [facility]6370 [facility] [id number] Information: [id number], 2ND ORDER NO DRAW FEE (89464) INR 4.8 (Abnormal) Range: 0.8-1.2 Comments: Client Requested Flag Reference interval is for non- anticoagulated patients. . Suggested INR therapeutic ra nge for Vitamin K antagonist therapy: Standard Dose (moderate intensity therapeutic range): 2.0 - 3.0 Higher intensity therapeutic range 2.5 - 3.5 Prothrombin Time 51.3 {sec} (Abnormal) Range: 8.7-11.5 :36 CALCIFIDIOL (85816) VIT D Comments: PATIENT NOT FASTINGPERFORMED BY: [facility]6[address] [facility] [id number] Information: [id number],2ND ODER NO DRAW FE E 25 Vitamin D, 25-Hydroxy 29.1 ng/mL (Abnormal) Range: 32.0-100.0 Comments: Recent studies consider the lower limit of 32.0 ng/mL to be athreshold for optimal health.Helder NIEVES. J Nutr. 2004;135(2):317-22. :52 Blood Glucose , Office (24437) Blood Glucose , Office 97 (Normal) :52 HgA1C , Office (85086) HgA1C , Office 5.7 % (Normal) Range: 4.6 - 7.1 :39 TSH (04642) Comments: PATIENT WAS FASTINGPERFORMED BY: [facility] [facility] [id number] TSH 0.741 {uIU/mL} (Normal) Range: 0.450-4.500 :39 URINALYSIS, W/ MICRO (85186) Comments: PATIENT WAS FASTINGPERFORMED BY: PowerReviewsGreystone Park Psychiatric HospitalTtuhfn4997 [facility] [id number] Microscopic Examination See below: (Normal) Bilirubin Negative (Normal) Glucose Negative (Normal) Ketones Negative (Normal) Nitrite, Urine Negative (Normal) Occult Blood Negative (Normal) Protein 1+ (Abnormal) Urobilinogen,Semi-Qn 0.2 mg/dL (Normal) Range: 0.0-1.9 WBC Esterase Negative (Normal) Appearance Clear (Normal) pH 7.0 (Normal) Range: 5.0-7.5 Urine-Color Yellow (Normal) Specific [place] 1.018 (Normal) Range: 1.005-1.030 :39 MICROALBUMIN: CREATININE RATIO Comments: PATIENT WAS FASTINGPERFORMED BY: [employer] Owupev1125 [facility] [id number] (68610) AND (41339) Microalb/Creat Ratio 273.8 {mg/g_creat} (Abnormal) Range: 0.0-30.0 Creatinine, Urine 74.9 mg/dL (Normal) Range: 15.0-278.0 Microalbumin, Urine 205.1 ug/mL (Abnormal) Range: 0.0-17.0 :39 METABOLIC PANEL, COMPREHENSIVE Comments: PATIENT WAS FASTINGPERFORMED BY: PowerReviewsGreystone Park Psychiatric HospitalZxtxhf4039 [facility] [id number] (71068) A/G Ratio 1.3 (Normal) Range: 1.1-2.5 Alkaline [...] Glucose, Serum 88 mg/dL (Normal) Range: 65-99 52-Cpf-514836:39 LIPID PANEL (49128) Comments: PATIENT WAS FASTINGPERFORMED BY: [employer] [facility] [id number] LDL Cholesterol Calc 78 mg/dL (Normal) Range: 0-99 LDL/HDL Ratio 1.9 {ratio_units} (Normal) Range: 0.0-3.2 VLDL Cholesterol Luis 52 mg/dL (Abnormal) Range: 5-40 HDL Cholesterol 41 mg/dL (Normal) Comments: According to ATP-III Guidelines, HDL-C >59 mg/dL is considered anegative risk factor for CHD. Triglycerides 259 mg/dL (Abnormal) Range: 0-149 Cholesterol, Total 171 mg/dL (Normal) Range: 100-199 53-Dgn-381452:39 CBC WITH MANUAL DIFF Comments: PATIENT WAS FASTINGPERFORMED BY: Thinglink70 [facility] [id number] Information: [id number] (24887) Immature Grans (Abs) 0.0 {x10E3/uL} Range: 0.0-0.1 [...] Plasma 23.2 pg/mL (Normal) Comments: PERFORMED BY: [facility]6370 [facility] [id number] 3:06 Range: 7.2-63.3 Comments: ACTH reference interval for samples collected between 7 and 10 AM. 3-Gpk-122699:06 FSH, Serum Comments: PERFORMED BY: [facility] [facility] [id number] FSH 33.2 m[iU]/mL (Normal) Comments: Follicular phase 3.5 - 12.5 Ovulation phase 4.7 - 21.5 Luteal phase 1.7 - 7.7 Postmenopausal 25.8 - 134.8 :06 IGF-1 Comments: PERFORMED BY: [place] [address] [facility] [id number] Insulin-Like Growth Factor I 151 ng/mL (Normal) Range: 81-225 :06 Luteinizing Hormone(LH), S Comments: PERFORMED BY: [address] [id number] LH 23.4 m[iU]/mL (Normal) Comments: Follicular phase 2.4 - 12.6 Ovulation phase 14.0 - 95.6 Luteal phase 1.0 - 11.4 Postmenopausal 7.7 - 58.5 :06 Prolactin 3.7 ng/mL (Abnormal) Comments: PERFORMED BY: [facility]6[address] [facility] [id number] Range: 4.8-23.3 :06 Prothrombin Time (PT) Comments: PERFORMED BY: [facility]6[address] [facility] [id number] Prothrombin Time 24.1 {sec} (Abnormal) Range: 8.7-11.5 INR 2.3 (Abnormal) Range: 0.8-1.2 Comments: Reference interval is for non-anticoagulated patients. . Suggested INR therapeutic range for Vitamin K anta gonist therapy: Standard Dose (moderate intensity therapeutic range): 2.0 - 3.0 Higher intensity therapeutic range 2.5 - 3.5 : TSH 0.865 {uIU/mL} Comments: PERFORMED BY: [place] [address] [facility] [id number] 06 (Normal) Range: 0.450-4.500 :56 BILAT SCRN [...] and bila teralhipswer e obtained using a [employer] scanner.. COMPARISON:Comparison is made with prior study [...] 10/29/10 1037 Sign by: ___ Paresh Kebede 61-Msr-673410:03 FECAL OCCULT HGB ASSAY- tubes sent home (91237) FECAL OCCULT HGB ASSAY, QUAL, 1-3 SIMULTANEOU negative (Normal) 15-Yly-268975:59 Microscopic Examination Comments: PATIENT NOT FASTINGPERFORMED BY: [employer]6370 MoosCoolAt[facility] [id number] Bacteria None seen (Normal) Mucus Threads Present (Normal) Cast Type Hyaline casts (Normal) Casts Present {/lpf} (Abnormal) Epithelial Cells (non renal) 0-10 {/hpf} (Normal) Range: 0 - 10 RBC 0-3 {/hpf} (Normal) Range: 0 - 3 WBC 0-5 {/hpf} (Normal) Range: 0 - 5 32-Qaf-773973:57 Vitamin D Hydroxy Comments: PATIENT NOT FASTINGPERFORMED BY: [employer]6370 [facility]osCoolAt[facility] [id number] Information: [id number] (82734) Vitamin D, 25-Hydroxy 32.6 ng/mL (Normal) Range: 32.0-100.0 Comments: Recent studies consider the lower limit of 32.0 ng/mL to be athreshold for optimal health.Helder NIEVES. J Nutr. 2004;135(2):317-22. 96-Yvu-449516:59 URINALYSIS, W/ MICRO Comments: PATIENT NOT FASTINGPERFORMED BY: [facility] LabS[facility] Xkhcfp5679 [facility] [id number] Information: SRC: [id number] (49000) Microscopic Examination See below: (Normal) Nitrite, Urine Negative (Normal) Bilirubin Negative (Normal) Glucose Negative (Normal) Ketones Negative (Normal) Occult Blood Negative (Normal) Protein 1+ (Abnormal) Urobilinogen,Semi-Qn 0.2 mg/dL (Normal) Range: 0.0-1.9 WBC Esterase Negative (Normal) Appearance Clear (Normal) Urine-Color Yellow (Normal) pH 6.5 (Normal) Range: 5.0-7.5 Specific [place] 1.017 (Normal) Range: 1.005-1.030 :59 URINE FAVIAN CULTURE-KEERTHI COL Comments: PATIENT NOT FASTINGPERFORMED BY: QPD [facility] Hyfzhd0963 [facility] [id number] COUNT (75760) Result 1 MUG (Normal) Comments: Mixed urogenital flora10,000-25,000 colony forming units per mL Urine Final report (Normal) Culture,Comprehensive :53 HgA1C , Office (94782) HgA1C , Office 5.5 % (Normal) Range: 4.6 - 7.1 :53 Blood Glucose , Office (07568) Blood Glucose , Office 99 (Normal) :37 [...] (Normal) PROTIME 36.2 s (Abnormal) Range: 9.1-11.7 61-Ymh-009724:59 URINE FAVIAN CULTURE-KEERTHI COL Comments: PATIENT NOT FASTINGPERFORMED BY: CB [facility] Dksrvr4032 [facility] [id number] Information: SRC:UR [id number] COUNT (72457) Result 1 NG36 (Normal) Comments: No growth in 36 - 48 hours. Urine Culture,Comprehensive Final report (Normal) 37-Txa-43078:44 Urinalysis, Office (72967) UA - BILIRUBIN Negative (Normal) UA - BLOOD Non Hemolyzed Trace (Normal) UA - GLUCOSE Negative (Normal) UA - KETONES Negative mg/dL (Normal) UA - LEUKOCYTE ESTERASE Small (Normal) UA - NITRITE Negative (Normal) UA - PH 8.0 (Normal) UA - PROTEIN 30 mg/dL (Normal) UA - SPECIFIC GRAVITY 1.015 (Normal) URINE UROBILINGN KEERTHI TIMED Normal mg/dL (Normal) 25-Sah-55116:00 MRA HEAD WITHOUT CONTRAST Radiology Report See Note (Normal) Comments: CLINICAL:Gait abnormality MRA OF THE BRAIN TECHNIQUE:3-D qaim-jy-wburdf (TOF) imaging was performed COMPARISON:MR of the [...] There is origi n of the right LOGISTICS SUPPORT. The left posteriorcommunicatingartery is prominent, of similar caliber to the P1 segment of the leftPCA. Basilar artery is diminutive in caliber, likely on a developmental basisgive n the right LOGISTICS SUPPORT and prominence of the left posteriorcommunicating artery. [...] vessel occlusion or hemodynamically significantstenosis. IMPRESSION:Essentially normal [place] without a demonstrated aneurysm orhemodynamically significant st enosis. Diffusely diminutive basilararterylikely developmental in nature. Focal narrowing of the mid basilararteryon the MIP images is thought likely artifactual upon review of thesourceMRA images. Dictated on 07/18/101550 by Mingo IsabelTranscribed on 07/18/101550 by EUGENIE THORPESign by Mingo Isabel on 07/19/104 Sign by: ____ Mingo Isabel 73-Dku-935448:23 BRAIN W/W/O CONTRAST Radiology Report See Note (Normal) Comments: Exam Number: [id number] LINICAL:60 year old female with unsteady gait, [...] Comments: PATIENT NOT FASTINGPERFORMED BY: RENARD [facility] [address] [place] [id number] Information: [id number] (78657) Prothrombin Time 20.6 {sec} (Abnormal) Range: 8.7-11.5 INR 1.9 (Abnormal) Range: 0.8-1.2 Comments: Reference interval is for non-anticoagulated patients. . Suggested INR therapeutic range for Vitamin K anta gonist therapy: Standard Dose (moderate intensity therapeutic range): 2.0 - 3.0 Higher intensity therapeutic range 2.5 - 3.5 :15 HgA1C , Office (73932) Comments: done HgA1C , Office 5.8 % (Normal) Range: 4.6 - 7.1 :15 Blood Glucose , Office (41046) Comments: done Blood Glucose , Office 118 (Normal) :05 HgA1C , Office (84929) HgA1C , Office 6.1 % (Normal) Range: 4.6 - 7.1 :05 Blood Glucose , Office (11203) Blood Glucose , Office 89 (Normal) :24 [...] . (Normal) LDL SIZE 19.7 nm (Abnormal) LDL SIZE 19.7 nm (Abnormal) Comments: INTERPRETATIVE INFORMATIONPARTICLE CONCENTRATION AND SIZE<--Lower CVD Risk Higher CVD Risk-->LDL AND HDL PARTICLES Percentile i n Reference PopulationHDL-P (total) High 75th 50th 25th Low>34.9 34.9 30.5 26.7 <26.7.Small LDL-P Low 25th 50th 75th High<117 117 527 839 >839.LDL Size <-Large (Pattern A)-> <-Small (Pattern B)->23.0 20.6 20.5 19.0 LDL-P 1594 nmol/L (Abnormal) Comments: Low < [...] {uIU/mL} (Normal) Range: 0.358-3.74 :24 VIT D,25 58723 39.9 ng/mL (Normal) Range: 32.0-100.0 Comments: Recent studies consider the lower limit of 32.0 ng/mL to kizzy threshold for optimal health.Helder NIEVES. J Nutr. 2004;135(2):317-22.Performed at: [facility] [address] [place], [place] [address]Edp Director: Tony Steele PhD, Phone: [phone] at: [facility] [id number] Director: Gloria Patton MD, Phone: [phone] HgA1C , Office (81905) Comments: done km HgA1C , Office 5.9 % (Normal) Range: 4.6 - 7.1 :48 Blood Glucose , Office (75087) Comments: done km Blood Glucose , Office 106 (Normal) :54 PRO TIME INR 3.7 (Abnormal) Comments: RESULTS CALLED TO KRISTIAN AT DR WHITMAN'S OQVDHV91/21/10 MORENITA LEACH.REPORT READ BACK BY SAME . [...] (Normal) PROTIME 13.0 s (Abnormal) Range: 9.1-11.7 9-Xcq-343838:45 CBC HCT 37.0 % (Normal) Range: 37-47 [...] SCREEN GEL POSITIVE (Abnormal) Comments: SENT TO [employer] ON 09/05/09 PM SHIFT SCREEN CELL I 2+ (Abnormal) SCREEN CELL II 2+ (Abnormal) SCREEN CELL III 2+ (Abnormal) 2-Bpd-993877:2 ANTIBODY PANEL WARM AUTOANTIBODY Comments: SURGERY? N 0 (Normal) Comments: Reactions suggestive of a warm autoantibody at [facility].Autologous adsorption of the patient's plasma with [...] Report See Note (Normal) Comments: Exam Number: [id number] Procedure completed. Please see MEDICAL RECORDS reports in PCI -OP - OP NOTELET - LETTER. Reported By: PAOLA SOSA M.D. :10 PRO TIME INR 1.5 (Normal) PROTIME 15.8 s (Abnormal) Range: 9.1-11.7 51-Zcb-810561:56 MYOCARD PERF SPECT REST/STRESS Radiology Report See Note (Normal) Comments: Exam Number: [id number] STRESS CARDIOLITE STUDY HISTORYThis is a 59-year-old [...] the patient was injected with 33 mCi txYe85e Cardiolite and stress SPECT images were acquired [...] 1300; Secondarygoal: Small LDL-P < 527Performed At: [address] [place], [place] [id number] LARGE HDL-P < 0.7 umol/L (Abnormal) LARGE [...] 1599High 1600 - 2000Very high > 2000. 79-Ybx-133919:05 HgA1C , Office (99611) Comments: done km HgA1C , Office 7.3 % (Abnormal) Range: 4.6 - 7.1 04-Yqh-123042:05 Blood Glucose , Office (03412) Comments: done km Blood Glucose , Office 215 (Normal) 87-Tis-870588:59 PT (Prothrobim Time) (69028) Comments: pt/inr; PATIENT WAS FASTINGPERFORMED BY: [facility] [address]we[address] [facility] [id number] INR 3.5 (Abnormal) Range: 0.8-1.2 Comments: Reference interval is for non-anticoagulated patients. . Suggested INR therapeutic range for Vitamin K anta gonist therapy: Standard Dose (moderate intensity therapeutic range): 2.0 - 3.0 Higher intensity therapeutic range 2.5 - 3.5 Prothrombin Time 34.1 {sec} (Abnormal) Range: 8.7-11.5 :59 TSH (43881) Comments: PATIENT WAS FASTINGPERFORMED BY: [facility] [address]lfz[address] [facility] [id number] TSH 0.934 {uIU/mL} (Normal) Range: 0.450-4.500 :59 Vitamin D Hydroxy (07818) Comments: PATIENT WAS FASTINGPERFORMED BY: [facility] Yxldgy4523 [facility] [id number] Vitamin D, 25-Hydroxy 33.2 ng/mL (Normal) Range: 32.0-100.0 Comments: Recent studies consider the lower limit of 32.0 ng/mL to be athreshold for optimal health.Helder NIEVES. J Nutr. 2004;135(2):317-22. :59 LIPID PANEL (93987) Comments: PATIENT WAS FASTINGClinical Information: [id number] PERFORMED BY: [facility] LabCoBasisCodeMxwdgn4534 [facility] [id number] Cholesterol, Total 171 mg/dL (Normal) Range: 100-199 HDL Cholesterol 35 mg/dL (Abnormal) Comments: According to ATP-III Guidelines, HDL-C >59 mg/dL is considered anegative risk factor for CHD. LDL Cholesterol Calc 58 mg/dL (Normal) Range: 0-99 LDL/HDL Ratio 1.7 {ratio_units} (Normal) Range: 0.0-3.2 Triglycerides 391 mg/dL (Abnormal) Range: 0-149 VLDL Cholesterol Luis 78 mg/dL (Abnormal) Range: 5-40 :07 Glucose, PP/2 Hour (48117) Comments: PATIENT NOT FASTINGClinical Information: [id number] 75G DRAWN@1 05PM PERFORMED BY: QPD [facility] [address] [facility] [id number] Glucose, Two-Hour Postprandial 220 mg/dL (Abnormal) Range: 65-139 70-Hti-308132:46 BUN 14 mg/dL (Normal) Range: 7-18 50-Itq-744409:46 SERUM CRE & GFR CREAT,SERUM 0.6 mg/dL (Normal) Range: 0.6-1.0 EST GFR 110 mL/min (Normal) EST GFR - AA 133 mL/min (Normal) 83-Hxp-109177:36 CHEST WITH CONTRAST Radiology Report See Note (Normal) Comments: Exam Number: [id number] CLINICAL:Wheezing and shortness of breath. CT CHEST [...] copy of this report has been sent [phone].Clinical Information: CC:[id number] PERFORMED BY: [facility] [facility] [id number] Baso (Absolute) 0.0 {x10E3/uL} (Normal) Range: 0.0-0.2 [...] copy of this report has been sent [phone].PERFORMED BY: [facility] [facility] [id number] A/G Ratio 1.2 (Normal) Range: 1.1-2.5 Albumin, [...] copy of this report has been sent [phone].PERFORMED BY: [facility] [facility] [id number] INR 3.4 (Abnormal) Range: 0.8-1.2 Comments: Reference [...] s (Abnormal) Range: 9.1-11.7 :30 VIT D,25 86954 20.1 ng/mL (Abnormal) Comments: DR. DAFEN WALDRON PT. DR. DOMINIK WALDRON CBCD, LIVER, VITD, GGTP,CK. Range: 32.0-100.0 Comments: Recent studies consider the lower limit of 32.0 ng/mL to kzizy threshold for optimal health.Helder NIEVES. J Nutr. 2004;135(2):317-22.Performed At: [facility] [place], [place] [id number] :32 PRO TIME INR 3.2 (Normal) PROTIME 37.7 s (Abnormal) Range: 9.1-11.7 :32 PT/INR, Office (42658) INR 3.5 (Normal) :38 PT/INR, Office (80535) Comments: done BC INR 3.9 (Normal) PT (PROTHROMBIN TIME) INR 3.9 s (Normal) Range: 11.5-13.5 :51 PT/INR, Office (44618) INR 3.4 (Normal) PT (PROTHROMBIN TIME) INR-3.4 s (Normal) Range: 11.5-13.5 :07 PT/INR, Office (84044) INR 2.9 (Normal) PT (PROTHROMBIN TIME) INR-2.9 s (Normal) Range: 11.5-13.5 :56 PRO TIME INR 8.6 (Abnormal) PROTIME 87.1 s (Abnormal) Range: 10.6-13.2 :50 PT/INR, Office (95885) INR 2.5 (Normal) :30 Urinalysis, Office (36715) UA - BILIRUBIN Negative (Normal) UA - BLOOD Non Hemolyzed Moderate (Normal) UA - GLUCOSE Negative (Normal) UA - KETONES Negative mg/dL (Normal) UA - LEUKOCYTE ESTERASE Trace (Normal) UA - NITRITE Negative (Normal) UA - PH 7.0 (Normal) UA - PROTEIN 30 mg/dL (Normal) UA - SPECIFIC GRAVITY 1.010 (Normal) URINE UROBILINGN KEERTHI TIMED Normal mg/dL (Normal) 79-Uch-95057:38 SED RATE ERYTHROCYTE (65382) Comments: PATIENT NOT FASTINGClinical Information: ADD DRAW FEE [id number] ADD J [id number] PERFORMED BY: [facility] Hospital[facility]ciijp3328 [facility] [id number] Sedimentation Rate-Westergren 57 mm/h (Abnormal) Range: 0-30 59-Wnl-242627:58 BILAT SCRN DIGITAL & CAD Radiology Report See Note (Normal) Comments: Exam Number: [id number] DIGITAL SCREENING MAMMOGRAMS WITH CAD COMPARISON STUDIESSept2004 [...] The mammogramswere also examined with computer-aided detection software([employer], Tehnologii obratnyh zadach.). Reported By: WHITLEY CONTE M.D. 08-Fif-353329:57 DEXA BONE DENSITY STUDY (HP) Radiology Report See Note (Normal) Comments: Exam Number: [id number] DEXA BONE DENSITY STUDY HISTORYPostmenopausal. COMPARISON STUDYApr2001 Study was performed using holoenymotion unit. The lumbar spine is measured from [...] significant decrease. Reported By: VANE SWIFT M.D. 08-Wke-160576:20 BRITTNEE (ANTINUCLEAR ANTIBODY) Comments: PATIENT NOT FASTINGPERFORMED BY: [employer] [place] [id number] ([address]47) Antinuclear Antibodies Direct 29 AU/mL (Normal) Range: 0-99 Comments: Negative <100 Equivocal 100 - 120 Positive >120 45-Ptm-968803:20 C-REACTIVE PROTEIN (37409) Comments: PATIENT NOT FASTINGPERFORMED BY: [employer] ([place]) [place] [id number] C-Reactive Protein, Quant 1.1 mg/L (Normal) Range: 0.0-4.9 36-Gws-836573:20 Folate (44143) Comments: PATIENT NOT FASTINGClinical Information: ADD DRAW FEE 465132 ADD J 05856 PERFORMED BY: [place] [id number] Folate (Folic Acid), Serum >24.0 ng/mL (Normal) Comments: Indeterminate: 3.4 - 5.4 Deficient: <3.4 66-Dkz-829753:20 RHEUMATOID FACTOR-QUANT (12131) Comments: PATIENT NOT FASTINGPERFORMED BY: [place] [id number] RA Latex Turbid. 7.9 {IU/mL} (Normal) Range: 0.0-13.9 43-Cqs-438069:20 SED RATE ERYTHROCYTE (03820) Comments: PATIENT NOT FASTINGPERFORMED BY: [facility] HospitalTluwyz6018 [facility] [id number] Sedimentation Rate-Westergren 80 mm/h (Abnormal) Range: 0-30 12-Efi-830620:20 VITAMIN B-12 (CYANOCOBALAMIN) Comments: PATIENT NOT FASTINGPERFORMED BY: [facility] Mjdqbd0314 [facility] [id number] (38589) Vitamin B12 >2000 pg/mL (Abnormal) Range: 211-911 41-Sfe-016863:30 PT/INR, Office (67481) Comments: done kmgoal is 3-4 INR 3.8 [...] CRITICAL VALUE REPEATED AND VERIFIED. CALLED TO SWAVTMK49/11/08 1203 AARON BHATIA.RESULTS READ BACK BY PRASHANTH ALLEN . PROTIME 55.3 s (Abnormal) Range: 10.6-13.2 :20 TSH 0.79 {uIU/mL} (Normal) Range: 0.34-4.82 :29 PT/INR, Office (89714) INR 2.5 (Normal) Comments: aw :10 TROPONIN-I < 0.04 ng/mL (Normal) Comments: TROPONIN-I EXPECTED VALUES < 0.50 NEGATIVE 0.50 - 1.49 INDETERMINANT > OR = 1.50 SUGGEST UT :11 BMP Comments: INDICATE CK '1', '2', [...] 1.49 INDETERMINANT > OR = 1.50 SUGGEST UT :03 BRAIN/HEAD WITHOUT CONTRAST Radiology Report See Note (Normal) Comments: Exam Number: [id number] CT SCAN OF BRAIN HISTORYVertigo. Ataxia. Possible [...] By: NATY LANTIGUA M.D. :42 PT/INR, Office (78684) INR 2.8 (Normal) :02 PRO TIME INR [...] s (Abnormal) Range: 11.7-13.3 :17 PT/INR, Office (16347) INR 3.6 (Normal) PT (PROTHROMBIN TIME) 22.8 s (Abnormal) Range: 11.5-13.5 :03 PT/INR, Office (98420) Comments: no change recheck 1 wk; Pt. [...] with hypotension Sepsis with hypotension : Reviewed Radio Personality Letter Indication: Sepsis with hypotension GERD (gastroesophageal [...] disease Atrial fibrillation, unspecified type : Reviewed Radio Personality Letter Indication: Atrial fibrillation, unspecified type Hypertension with renal disease : Follow up in 2ish weeks Indication: Hypertension with renal disease Hypertension with renal disease : BP MONITORING - SELF Indication: Hypertension with renal disease Seizure : Reviewed Lab Indication: Seizure Seizure : Reviewed Diagnostic Tests:- cat scan brain Indication: Seizure Seizure : Reviewed Radio Personality Letter Indication: Seizure Controlled diabetes mellitus type II without complication : Follow up in 3 months Indication: Controlled diabetes mellitus type II without complication Seizure : Reviewed Radio Personality Letter Indication: Seizure Controlled diabetes mellitus type [...] for malignant neoplasms, colon) Seizure : Reviewed Radio Personality Letter Indication: Seizure Cerebral hemorrhage : Reviewed Radio Personality Letter: currently in OT Indication: Cerebral hemorrhage Hypertension with renal disease : Continue Current Prescription(s) Indication: Hypertension with renal disease UTI (urinary tract infection), bacterial : Reviewed Lab Indication: UTI (urinary tract infection), bacterial Cerebral hemorrhage : Reviewed Lab Indication: Cerebral hemorrhage Cerebral hemorrhage : Reviewed Diagnostic Tests Indication: Cerebral hemorrhage Cerebral hemorrhage : Reviewed Radio Personality Letter Indication: Cerebral hemorrhage Current non-smoker : [...] up in 3 month/or when returns from [facility] Indication: Controlled diabetes mellitus type II without [...] disease) CHF (congestive heart failure) : Reviewed Radio Personality Letter Indication: CHF (congestive heart failure) CHF [...] Exercise Indication: Osteoarthritis Planned Observations POTASSIUM SERUM (81354)Indication: Hyperkalemia On: 32-Dfj-522436:57 Request Blood Glucose , Office (61835)Indication: Uncontrolled type II diabetes mellitus On: 87-Eas-572996:57 Request Rapid Flu (70120 x 2)Indication: Chills (without fever) On: 6-Mnc-197423:38 Request TSH (99645)Indication: Atrial fibrillation, unspecified type On: 10-Buh-476289:51 Request URINALYSIS, W/ MICRO (31355)Indication: Hypertension with renal disease On: 05-Syg-185264:51 Request MICROALBUMIN: CREATININE RATIO (97786) AND (46145)Indication: Hypertension with renal disease On: 51-Xex-747876:51 Request METABOLIC PANEL, COMPREHENSIVE (96496)Indication: Hypertension with renal disease On: 74-Ffb-267943:51 Request CBC W/AUTO DIFF WBC (52869)Indication: Hypertension with renal disease On: 63-Fnk-141039:51 Request LIPID PANEL (56333)Indication: Hypercholesterolemia On: 63-Cfl-354479:51 Request TSH (THYROID STIMULATING HORMONE) (07314)Indication: DISORDER, PITUITARY NEC On: 98-Yqk-861931:23 Request T3, FREE (TRIDOTHYRONINE) (86805)Indication: DISORDER, PITUITARY NEC On: :23 Request T4, FREE (THYROXINE) (44045)Indication: DISORDER, PITUITARY NEC On: :23 Request CALCIFIDIOL (25679) VIT D 25Indication: Vitamin D deficiency, unspecified On: :52 Request TSH (24931)Indication: Controlled diabetes mellitus type II without complication On: :52 Request URINALYSIS, W/ MICRO (77508)Indication: Controlled diabetes mellitus type II without complication On: :52 Request MICROALBUMIN: CREATININE RATIO (18008) AND (18574)Indication: Controlled diabetes mellitus type II without complication On: :52 Request METABOLIC PANEL, COMPREHENSIVE (33137)Indication: Controlled diabetes mellitus type II without complication On: :52 Request LIPID PANEL (85689)Indication: Controlled diabetes mellitus type II without complication On: :52 Request CBC W/AUTO DIFF WBC (31839)Indication: Controlled diabetes mellitus type II without complication On: 74-Led-903445:52 Request URINE FAVIAN CULTURE-IDENTIFICATN (24648)Indication: Abnormal urine On: 7-Oyv-296464:17 Request FECAL OCCULT- Tubes sent home (47759)Indication: Encounter for screening for malignant neoplasm of colon (Renamed from Special screening for malignant neoplasms, colon) On: 21-Rcb-492052:39 Request Alkaline Phosphatase (55158)Indication: Antiphospholipid syndrome On: :15 Request THROAT CULTURE (72959)Indication: Sore throat On: :32 Request Metabolic Panel, Basic (13291)Indication: Hypertension with renal disease On: :56 Request Comments: do in one month BASIC METABOLIC w/Ionized Ca++ (80661)Indication: Hypertension with renal disease On: :23 Request Urine Protein Electrophoresis (UPEP) (66876)Indication: Elevated serum globulin level On: :17 Request Serum Protein Electrophoresis (SPEP) (47411)Indication: Elevated serum globulin level On: :17 Request URINALYSIS, W/ MICRO (72178)Indication: Controlled diabetes mellitus type II without complication On: :52 Request TSH (46405)Indication: Controlled diabetes mellitus type II without complication On: :52 Request CBC W/AUTO DIFF WBC (38180)Indication: Controlled diabetes mellitus type II without complication On: :52 Request MICROALBUMIN: CREATININE RATIO (04338) AND (75121)Indication: Controlled diabetes mellitus type II without complication On: :52 Request METABOLIC PANEL, COMPREHENSIVE (35587)Indication: Hypercholesterolemia On: :52 Request LIPID PANEL (02386)Indication: Hypercholesterolemia On: :52 Request HGB A1C (01996)Indication: Controlled diabetes mellitus type II without complication On: :52 Request HgA1C , Office (65586)Indication: Type 2 diabetes mellitus, controlled, with renal complications On: 01-Feb-20139:05 Request Blood Glucose , Office (91382)Indication: Type 2 diabetes mellitus, controlled, with renal complications On: 01-Feb-20139:05 Request URINE FAVIAN CULTURE-IDENTIFICATN (52721)Indication: Dysuria On: :52 Request LIPID PANEL (40128)Indication: Hyperlipidemia On: 66-Vka-822814:17 Request CALCIFIDIOL (79958) VIT D 25Indication: Vitamin D deficiency, unspecified On: 10-Ffc-365047:16 Request Vitamin D Hydroxy (35286)Indication: Osteopenia On: 32-Ufk-143439:56 Request TSH (38954)Indication: Uncontrolled type II diabetes mellitus On: 51-Kvm-272043:56 Request URINALYSIS, W/ MICRO (31088)Indication: Uncontrolled type II diabetes mellitus On: 58-Arq-654687:56 Request MICROALBUMIN: CREATININE RATIO (11196) AND (73189)Indication: Uncontrolled type II diabetes mellitus On: 27-Jcg-920092:56 Request METABOLIC PANEL, COMPREHENSIVE (91637)Indication: Uncontrolled type II diabetes mellitus On: 28-Lsl-265808:56 Request LIPID PANEL (33539)Indication: Uncontrolled type II diabetes mellitus On: 29-Jpz-375388:56 Request CBC WITH MANUAL DIFF (34986)Indication: Uncontrolled type II diabetes mellitus On: 29-Sep-2011 Request Urine Protein Electrophoresis (UPEP) (50715)Indication: Other specified abnormal findings of blood chemistry On: 40-Ese-683099:18 Request Serum Protein Electrophoresis (SPEP) (20709)Indication: Other specified abnormal findings of blood chemistry On: 83-Bav-375952:18 Request PARATHORMONE (03411)Indication: Vitamin D deficiency, unspecified On: 28-Cnp-312557:16 Request CALCIFEDIOL (89796)Indication: Other specified abnormal findings of blood chemistry On: 76-Nip-37018:43 Request GONADOTROPIN-LH (71193)Indication: DISORDER, PITUITARY NEC On: 8-Dqo-621583:04 Request GONADOTROPIN-FSH (16613)Indication: DISORDER, PITUITARY NEC On: 7-Xmm-997934:04 Request SOMATOMEDIN (10332)Indication: DISORDER, PITUITARY NEC On: 4-Zxs-045133:04 Request PROLACTIN (43034)Indication: DISORDER, PITUITARY NEC On: 4-End-820281:04 Request TSH (THYROID STIMULATING HORMONE) (30563)Indication: DISORDER, PITUITARY NEC On: 0-Pzl-916744:04 Request ACTH (89285)Indication: DISORDER, PITUITARY NEC On: 3-Cbg-263949:04 Request LIPID PANEL (36778)Indication: Hypercholesterolemia On: 06-Sep-20109:15 Request PT (Prothrobim Time) (42170)Indication: longterm current use of anticoagulant On: 2-Yuy-572427:18 Request Comments: Standing order Metabolic Panel, Basic (62855)Indication: Uncontrolled type II diabetes mellitus On: 80-Sue-20129:00 Request TSH (07366)Indication: Controlled diabetes mellitus type II without complication On: 55-Mtn-476844:41 Request URINALYSIS, W/ MICRO (48446)Indication: Controlled diabetes mellitus type II without complication On: 58-Uve-718365:41 Request MICROALBUMIN: CREATININE RATIO (50070) AND (67513)Indication: Controlled diabetes mellitus type II without complication On: 71-Www-936331:41 Request METABOLIC PANEL, COMPREHENSIVE (94767)Indication: Controlled diabetes mellitus type II without complication On: 31-Laz-246364:41 Request LIPOPROTEIN, BLD, BY NMR (25472)Indication: Controlled diabetes mellitus type II without complication On: 07-Vtv-182140:41 Request LIPID PANEL (01361)Indication: Controlled diabetes mellitus type II without complication On: 87-Xcg-525699:41 Request CBC WITH MANUAL DIFF (69625)Indication: Controlled diabetes mellitus type II without complication On: 41-Owz-013347:41 Request Comments: DO PRIOR TO NEXT VISIT PT (Prothrobim Time) (96982) On: 91-Fil-811745:39 Request Comments: inr Vitamin D Hydroxy (26756)Indication: Osteopenia On: 02-Vwe-720524:37 Request HEPATIC FUNCTION PANEL (27377)Indication: Hypercholesterolemia On: 30-Duo-881575:36 Request LIPOPROTEIN, BLD, BY NMR (78200)Indication: Hypercholesterolemia On: 37-Xsg-500046:36 Request LIPID PANEL (43710)Indication: Hypercholesterolemia On: 04-Cqi-120311:35 Request Comments: do in 3 mionths PT/INR, Office (79702)Indication: Transient ischemic attack On: 76-Zfu-42719:17 Request CALCIFIDIOL (11850) VIT D 25Indication: Vitamin D deficiency, unspecified On: 70-Sar-475888:34 Request PT/INR, Office (23537) On: 08-Yso-149633:22 Request PT/INR, Office (65429)Indication: Transient ischemic attack On: 8-Myw-968270:44 Request PT (Prothrobim Time) (87173)Indication: longterm current use of anticoagulant On: 5-Ypn-778962:05 Request Comments: Standing order x 1 year PT/INR, Office (72480) On: 83-Yhm-31239:57 Request SED RATE ERYTHROCYTE (14526)Indication: Polymyalgia rheumatica On: 45-Igd-491359:59 Request Comments: DO IN 2 WEEKS LIPID PANEL (53096)Indication: Hypercholesterolemia On: 50-Pbx-830302:02 Request Comments: do in 6 months PT/INR, Office (03080) On: 74-Ejq-468986:25 Request Comments: done kmsee flow sheet PT/INR, Office (37496)Indication: Transient ischemic attack On: 14-Ous-955318:04 Request Comments: done PT (Prothrobim Time) (01490)Indication: longterm current use of anticoagulant On: 18-Dlp-731647:10 Request Comments: AND INR PT/INR, Office (66352) On: 31-Pae-649671:06 Request CBC WITH MANUAL DIFF (68079)Indication: Leukopenia On: 91-Hcf-476801:49 Request Planned Procedures INFUSION, NORMAL SALINE SOLUTION On: 30-Sep-2017 Intent , 1000 CC (Special Coverage Comments: IV Therapy qokczhgmj29V, 1 inchSite: L acTolerated: wellno redness or swelling, no s/s infiltrationML,SEEING EYE DOG TRAINER Instructions Apply. See [facility]: 2048) ([id number])By: Hannah Leos DO, DO, Kathleen INFUSION, NORMAL SALINE SOLUTION On: 20-Sep-2017 Intent , 1000 CC (Special Coverage Comments: IV Therapy pqmbmtxlj43A, 1 inchSite: L ac - first attempt and Saline Lock flushed easily Tolerated: wellno redness or swelling, no s/s infiltration MLONG Instructions Apply. See [facility]: 2048) (J7030)By: Hannah Leos DO, DO, Kathleen ELECTROCARDIOGRAM, COMPLETE On: 28-Jun-2017 Intent (ECG) (68165)By: Mino SMITH, Yadira PNEUM VAC ADLT/IMUMNOSPR, On: 16-Jun-2017 Intent SBC/INTRM (87720)By: Visit, Comments: Lot #[id number]-L arm, dltd, IMDose- prefilled syringegiven by:WALDO McfarlandVIS signed Nurse ELECTROCARDIOGRAM, COMPLETE On: 14-Jun-2017 Intent (ECG) ([id number])By: Dafne WELSH, Comments: sinus poor R progression , nonaspecific st flattening and t wave inversion in lateral leads-- new chgn - Hannah Castro DO SCREENING DIGITAL TOMOSYNTHESIS On: 24-May-2017 Intent OF BREAST ([id number])By: Hannah Leos DO, DO, Kathleen Flu Vaccine (Quadrivalent) On: 07-May-2017 Intent [id number]: Hannah Leos DO Comments: Lot:[id number]:02/14/18Amt:0.5mlRoute:IMSite: L DltdGiven By: GUSTAVO Chaves signed Hannah Leos DO CT - Brain/Head (Without On: 05-Apr-2017 Intent Contrast)By: Hannah Leos DO Comments: following cerebral hemorrhage Hannah Leos DO Solu -Medrol Injection, 125 mg On: 08-Mar-2017 Intent ([id number])By: Daniela Herzog CNP Comments: Lot:[id number]:07/18Dose:125mgRoute:imSite:r hip Given By:MO signed Radiology - Elbow - RightBy: On: 08-Mar-2017 Intent Daniela Herzog CNP Flu Vaccine (Quadrivalent) On: 04-Jun-2016 Intent [id number]: Hannah Leos DO Comments: Lot:[id number]:02/26/17Dose:0.5mLRoute:IMSite:L DltdGiven By:MO signed Hannah Leos DO DEXA SCAN AXIAL SKELETON On: 17-Oct-2015 Intent ([id number])By: Hannah Leos DO, DO, Kathleen MAMMOGRAM, SCREENING, BOTH On: 17-Oct-2015 Intent BREAST ([id number])By: Hannah Leos DO, DO, Kathleen IMMUNIZ ADMNIN, 1 VAC, On: 04-Jun-2014 Intent SNGL/COMBO ([id number])By: Cathy Kim FLU VAC, SPLIT, >3 YEARS, On: 04-Jun-2014 Intent INTRAMUSC ([id number])By: Julio, Comments: Lot:[id number]:Dose:0.5mLRoute:IMSite:L DltdGiven By:MO signed Cathy EKG ([id number])By: Dafne WELSH, On: 08-Nov-2013 Intent Hannah Castro DO Comments: sinus alethea - nonspeciific st flattening Eprescribed prescriptions On: 08-Nov-2013 Intent (G8553)By: Hannah Leos DO, DO, Kathleen Eprescribed prescriptions On: 01-Feb-2013 Intent (G8553)By: Shea May LPN Eprescribed prescriptions On: 09-Nov-2012 Intent (G8553)By: Shea May LPN EKG ([id number])By: Dafne WELSH, On: 29-Jul-2012 Intent Hannah Castro DO Comments: nsr no acute chg MAMMOGRAM, SCREENING, BOTH On: 29-Jul-2012 Intent BREASTS ([id number])By: Hannah Leos DO, DO, Kathleen Eprescribed prescriptions On: 29-Jul-2012 Intent (G8553)By: Jessica Shields LPN Eprescribed prescriptions On: 11-Jan-2012 Intent (G8553)By: Jessica Shields LPN EKG ([id number])By: Dafne WELSH, On: 16-Jul-2011 Intent Hannah Castro DO Comments: nsr no acute chg -first degree block not differnt IMMUNIZ ADMNIN, 1 VAC, On: 16-Jul-2011 Intent SNGL/COMBO ([id number])By: Dafne WELSH, Comments: Lot #[id number]/Site-left deltoidgiven by: WALDO Stewart DO, Kathleen PNEUM VAC ADLT/IMUMNOSPR, On: 16-Jul-2011 Intent SBC/INTRM ([id number])By: aHnnah Leos DO, DO, Kathleen DXA, BONE DENSITY, AXIAL On: 15-Oct-2010 Intent SKELETON ([id number])By: Jessica Shields LPN MAMMOGRAM, SCREENING, BOTH On: 15-Oct-2010 Intent BREASTS ([id number])By: Jessica Shields LPN Clinical Breast Examination On: 15-Oct-2010 Intent (G0101)By: Jessica Shields LPN TDAP VACCINE >7 IM ([id number])By: On: 08-Sep-2010 Intent Hannah Leso DO, DO, Comments: Lot #[id number]-L armDose prefilled syringegiven by:DEEDEE Young MRA - Upper Extremity OtherBy: On: 15-Jul-2010 Intent Hannah Leos DO, DO, Kathleen MRI - BrainBy: Dafne WELSH, On: 06-Jun-2010 Intent Hannah Castro DO EKG ([id number])By: Dafne WELSH, On: 06-Jun-2010 Intent Hannah Castro DO Nuclear Stress Test/Stress On: 12-Aug-2009 Intent SPECT/AdenosineBy: Hannah Leos DO, DO, Kathleen Echo CompleteBy: Dafne WELSH, On: 15-Jul-2009 Intent Hannah Castro DO EKG ([id number])By: Dafne WELSH, On: 15-Jul-2009 Intent Hannah Castro DO Comments: nonspecific flattening no acute changes Solu -Medrol Injection, 125 mg On: 23-May-2009 Intent ([id number])By: Yuko Gonzalez LPN Comments: Lot #[id number]-Left [id number] mggiven by:[facility] Spirometry ([id number])By: Aron On: 23-May-2009 Intent Francisca Comments: normal CT - ChestBy: Francisca Sharp On: 23-May-2009 Intent Comments: PE protocol Pulse Oximetry ([id number])By: On: 23-May-2009 Intent Francisca Sharp Comments: 97% EKG (61759)By: aDfne WELSH, On: 11-Nov-2007 Intent Hannah Castro DO Comments: SINUS ALETHEA NONSPECIFIC BASELINE DXA, BONE DENSITY, AXIAL On: 28-Oct-2007 Intent SKELETON ([id number])By: Hannah Leos DO, DO, Hannah MAMMOGRAM, SCREENING, BOTH On: 28-Oct-2007 Intent BREASTS ([id number])By: Hannah Leos DO, DO, Kathleen Radiology - Chest- PA and LatBy: On: 12-Nov-2006 Intent Hannah Leos DO, DO, Hannah Aerosol Treatment ([id number])By: On: 12-Nov-2006 Intent Hannah Leos DO, DO, Comments: MORE AIR EXCHANGE NO WHEEZE AND RUB SOFTER-- PT FEELS CLINICALLY BETTER Hannah Pulse Oximetry ([id number])By: Dafne On: 12-Nov-2006 Intent Hannah WELSH DO, [...] is transitioning into care from a hospital ([facility] for 1 week and a half for [...] disorder with concussion. has apt in [facility] Encounter Diagnosis: BMI 30.0-30.9,adult, Current non- [...] type II without complication, Hypercholesterolemia, Antiphospholipid syndrome, longterm current use of anticoagulant, Hypertension with renal [...] The patient does have durable power of senior trial attorney and living will. 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
--- OUTSIDE RECORDS SUMMARY | 2018-11-18 16:22 | XMS RPT_ITS | Continuity of Care Document ---
:1950 Author Organization [facility] Address [address] [place] [address] Phone Care Team Providers Name Role Phone Hannah Leos DO Unavailable Rasta Alvarezine Unavailable Jana Hughes Unavailable WALDO Shields Unavailable Unavailable Long Shea HAAS Unavailable Unavailable Jessica Bliss Unavailable Unavailable Allie Gustafson Unavailable Unavailable Slarb [employer], Deidra Unavailable Unavailable Unavailable Unavailable Problems Name [...] going to see Dyana, will see in [place] Status: Active Sepsis with hypotension (A41.9, 038.9) [...] infection), bacterial (N39.0, 599.0) Comments: while at [facility] -- E coli in culture and she [...] : 21-Sep-2017 End : 13-Oct-2017 Inactive ERGOCALCIFEROL, 84632GMZE (Oral Capsule) 2 Capsule q week for [...] days Quantity: 30 {Tablet} Refills: 3 Ordered:18-Feb-2010 Jessiac Shields LPN Start : 18-Feb-2010 End : [...] Comments:This order discontinued per [facility]. VITAMIN D, 74916CMIH (Oral Capsule) 1 (one) Capsule Twice a [...] (R53.83, 780.79) Status: Inactive as of 13-Feb-2009 longterm current use of anticoagulant (Z79.01, V58.61) Comments: [...] Pacemaker Check Result: Comments: See Note; NOTES: [facility] [address] [place] [address] [address] [place] [address] Pacemaker Check Date of Service: 04/09/18924 MR#: [id number] Acct: [id number] Name: HERMINIA NASH Rep #: [id number] : 1950 From: Verónica Trinidad Age/Sex: 68/F Location: [facility] Status: Signed Billing Codes PM Device Codes: PM Dev Interrogate (Remot 04/09/18 0929 <Karsten eklly signed by Verónica Trinidad > Date Verónica Trinidad 04/11/18 1659<Electronically signed by Gary FALL> Cosigner Signature : Date (if applicable) Gary Zamora CC: 25-Mar-2018 History and Physical Exam Result: Comments: See Note; NOTES: [facility] Medical Records Department [address] [place] [address] History and Physical 03/25/18 1449 MR#: [id number] Acct: [id number] Name: Douglas NASH Rep #: [id number] : 1950 68 From: Karel Max DO [...] 102.5 Fahrenheit. Patient was sent to [facility] emergency room. Patient was found to [...] history Psychiatric History: No pertinent psych hx CALL OR CONTACT CENTRE OPERATOR History: No pertinent CALL OR CONTACT CENTRE OPERATOR history Smoking Status: Never s coral Tobacco [...] Lovenox Code Visit Inpatient E AND M: 73379 Init Hosp L3 03/25/18 1457 <Electronically signed by Karel Max DO> Date Karel Max DO Cosigner Signature: Date (if applicable) CC: Karel Max DO; Hannah Leos DO Signed 25-Mar-2018 Chest 1 View (Portable) Result: Comments: See Note; NOTES: [facility] Imaging Services [address] [place] [address] Chest 1 View (Portable) MR#: [id number] Acct: [id number] Name: HERMINIA NASH Rep #: [id number] : 1950 F 68 From: Darrell Prado MD PCP: Hannah Leos DO Status: REG ER Study: Chest 1 View (Portable) Date of Exam: 03/25/18 Exam# [id number] Ordering Dr: Mitra Whitney STUDY: X-RAY CHEST [...] MD at 14:04 EDT , Service support [phone], CC: Mitra Whitney; Hannah Leos DO Transit Mix Operator: Signed 09-Feb-2018 Cardiology Visit Report Result: Comments: See Note; NOTES: [facility] [place] [address] OFFICE VISIT Date of Service: 01/28/18 MR#: [id number] Acct: [id number] Name: HERMINIA NASH Rep #: [id number] : 1950 Provider: Yasmin Aiken Age/Sex: 67/F Location: [facility] Status: Signed HPI HPI Details: [...] I ntake Visit Reasons: 3 M FU Night Custodian Required: No Accompanied by: Is patient in [...] mg PO DAILY 10/06/17 [History Confirmed 01/28/18] [place] xyzine HCl 25 mg PO BID 10/07/17 [...] Atrial fibrillation with RVR I48.91 Plan - HODLEN Mayorga Patient has not had any symptomatic [...] note was generated using a voice recog Multispan system and there may be incorrect words, [...] Pacemaker Check Result: Comments: See Note; NOTES: [facility] [address] [place], [place] [address]e. [address] [place] [address] Pacemaker Check Date of Service: 12/31/17 1423 MR#: [id number] Acct: [id number] Name: HERMINIA NASH Rep #: [id number] : 1950 From: Verónica Trinidad Age/Sex: 67/F Location: [facility] Status: Signed Comments Summary Comments: Dual Chamber Pacemaker Evaluation: 6 wk post PPM implant check co mpleted. Interrogation shows no MS episodes and no VT episodes since 11/16/17. Left pectoral pocket/incision w/o s/s of infection or erosion. Pt offers no cardiac complaints at present. Presenting rhythm shows AAI pacing @ 60 ppm. CONFERENCE RESERVATIONIST=2%. Battery longevity approx 8.5yrs. Lead impedances, sensing and pace/sense thresholds remain stable. Decreased AV amplitudes with adequate safety margin to preserve olaf clary longevity. Counters cleared. Next f/u appt scheduled for in 3 mos. Device Device Date Interviewed: 12/31/17 Follow-up Location: in office Interview Reason: scheduled follow up Water Quality Analyst: [employer] Name: [employer] [place] IS-1 Model: L111 Serial #: [id number] Implant Date: 11/15/17 Year(s): 0 Implant Physician: Dr. Mehul Pollock/ [facility] Patient Characteristics Atrial Indication: sick sinus syndro me Patient Substrate: Arrhythmia Ejection fraction %: 50 to 54 (05/2015) By: Echo Underlying rhythm: Sinus rhythm Pacemaker Dependent: No Device Characteristics Device: Dual Chamber Type: Pacemaker Matthew te Follow-Up: Latitude Device Physical Exam Yes Incision well healed, No hematoma, Pocket not tender and No drainage Leads Lead #1 Water Quality Analyst Lead 1: [employer] Model Lead 1: 7741 Serial# Blanca d 1: [id number] Date Implanted Lead 1: 11/15/17 Position Lead 1: RA Lead #2 Water Quality Analyst Lead 2: [employer] Model Lead 2: 7740 Serial# Lead 2: [id number] Date Implanted Lead 2: 11/15/17 Position Lead [...] Pacemaker Check Result: Comments: See Note; NOTES: [facility] [address] [place] [address] Pacemaker Check Date of Service: 11/22/17 1119 MR#: [id number] Acct: [id number] Name: HERMINIA NASH Rep #: [id number] : 1950 From: Verónica Trinidad Age/Sex: 67/F Location: [facility] Status: Signed Comments Summary Comments: [...] in office Interview Reason: scheduled follow up Water Quality Analyst: [employer] Name: Garrett BOLANOS-1 Model: L111 Serial #: [id number] Implant Date: 11/15/17 Year(s): 0 Implant Physician: Dr. Mehul Pollock/ [facility] Patient Characteristics Atrial Indication: sick sinus syndrome Patient Substrate: Arrhythmia (junctional rhythm with HR in 20's) Ejection fraction %: 5 0 to 54 (05/2015) By: Echo Underlying rhythm: Sinus rhythm Pacemaker Dependent: No Device Characteristics Device: Dual Chamber Type: Pacemaker Device Physical Exam Yes Steri-strips intact, No hematoma a nd No drainage Leads Lead #1 Water Quality Analyst Lead 1: [employer] Model Lead 1: 7740/45 [facility] MRI Serial# Lead 1: [id number] Date Implanted Lead 1: 11/15/17 Position Lead 1: RA Lead #2 Water Quality Analyst L ead 2: [employer] Model Lead 2: 7741/52 [facility] Serial# Lead 2: [id number] Date Implanted Lead 2: 11/15/17 Position Lead [...] Discharge Instruction Result: Comments: See Note; NOTES: [facility] Medical Records Department [address] [place] [address] Discharge Instruction 11/17/17 1836 MR#: [id number] Acct: [id number] Name: HERMINIA NASH Rep #: [id number] : 1950 67 From: Rodríguez Costa DO [...] your Primary Care Provider. Call [facility] ([phone]) or report t o the closest Emergency Room. Call 911 if necessary. 11/17/177 <Electronically signed by Rodríguez Costa DO> Date Rodríguez Costa DO Co signer Signature (If Indicated): Date CC: Hannah Leos DO 17-Nov-2017 Emergency Department Summary Result: Comments: See Note; NOTES: [facility] Medical Records Department [address] [place] [address] Emergency Department Summary 11/17/17 1833 MR#: [id number] Acct: [id number] Name: HERMINIA NASH Rep #: [id number] : 1950 67 From: Rodríguez Costa DO [...] of infection] This note was generated with [employer] dictation software. It may contain incorrect words, [...] your Primary Care Provider. Call [facility] ([phone]) or report to the closest Emergency Room. Call 911 if necessary. 0 11/17/17 1836 <Electronically signed by Rodríguez Costa DO> Date Rodríguez Costa DO Cosigner Signature (If Indicated): Date CC: Hannah Leos DO 16-Nov-2017 Discharge Instruction Result: Comments: See Note; NOTES: [facility] Medical Records Department [address] [place] [address] Instructions for Home/Discharge Instructions 11/16/17 0848 MR#: [id number] Acct: [id number] Name: HERMINIA NASH Rep #: [id number] : 1950 67 From: Mehul Pollock MD PCP: Hannah Leos DO Status: REG [facility] Discharge Diet: No Restrictions Discharge Activity: May [...] call your doctor's office or Doctor[facility] Registry ([phone]) Call 911 or g o to the [...] 1 View Result: Comments: See Note; NOTES: [facility] Imaging Services [address] [place] [address] Chest 1 View MR#: [id number] Acct: [id number] Name: HERMINIA NASH N Rep #: [id number] : 1950 F 67 From: Martha Delgado MD PCP: Hannah Leos DO Status: [facility] Study: Chest 1 View Date of Exam: 11/16/17 Exam# [id number] Ordering Dr: Mehul Pollock MD STUDY: X-RAY [...] CC: Mehul Pollock MD; Hannah Leos DO Transit Mix Operator: Signed 16-Nov-2017 Chest PA and Lateral Result: Comments: See Note; NOTES: [facility] Imaging Services [address] [place] [address] Chest PA and Lateral MR#: [id number] Acct: [id number] Name: HERMINIA NASH N Rep #: [id number] : 1950 F 67 From: Mallorie Bolaños MD PCP: Hannah Leos DO Status: [facility] Study: Chest PA and Lateral Date of Exam: 11/16/17 Exam# [id number] Ordering Dr: Mehul Pollock MD STUDY: X-RAY [...] CC: Mehul Pollock MD; Hannah Leos DO Transit Mix Operator: Signed 05-Nov-2017 Office Visit Report Result: Comments: See Note; NOTES: [place] [address] [place] [place] [address] OFFICE VISIT Date of Service: 11/05/17 MR#: [id number] Acct: [id number] Patient: HERMINIA NASH Rep #: [id number] : 1950 Provider: Verónica Trinidad Age/Sex: 67/F Location: [facility] Status: Signed Comments Summary Comments: [...] CC: 05-Nov-2017 12 Lead EKG performed by [facility] Result: Comments: See Note; NOTES: [facility] [address] [place] [address] 12 Lead EKG performed by [facility] 11/05/17 1027 MR#: [id number] Acct: [id number] Name: HERMINIA BLAND N Rep #: [id number] : 1950 67 From: Mehul Pollock MD Attending Dr: Verónica Trinidad Status: REG AMB Ordering Dr: Mehul Pollock MD Date: 11/05/17 Location: [facility] Sex: F A Admitted: ZEINA R #: [id number] BMS/12 Lead EKG performed by [facility] Sinus Rhythm Low voltage in limb leads. - Diffuse nonspecific T-abnormality. BNORMAL 11/05/17 1522 <Electronically signed by Mehul Pollock MD&amp ;#62; Date Mehul Pollock MD CC: Hannah Leos DO Date Dictated: 11/05/17 1027 Date Transcribed: 11/05/17 102 Transit Mix Operator: CO Signed 05-Nov-2017 12 Lead EKG performed by [facility] Result: Comments: See Note; NOTES: [facility] [address] [place] [address] 12 Lead EKG performed by [facility] 11/05/17 1027 MR#: [id number] Acct: [id number] Name: HERMINIA BLAND Rep #: [id number] : 1950 67 From: Mehul Pollock MD Attending Dr: Verónica Trinidad Status: DEP AMB Ordering Dr: Mehul Pollock MD Date: 11/05/17 Location: [facility] Sex: F A Admitted: BMS/12 Lead EKG performed by [facility] ECG Report Interpretation Sinus Rhythm Low voltage in limb leads. - Diffuse nonspecific T-abnormality. ABNORMAL Electronically sig perfecto on 11/18/2017 at 13:49 by Mehul Pollock 11/18/17 1350 Date Mehul Pollock MD CC: Hannah Leos DO Date Dictated: 11/05/17 1027 Date Transcribed: 11/05/17 1027 Transit Mix Operator: CO Signed 29-Oct-2017 Cardiology Visit Report Result: Comments: See Note; NOTES: [facility] [address] [place] [address] OFFICE VISIT Date of Service: 10/29/17 MR#: [id number] Acct: [id number] Name: HERMINIA NASH Rep #: [id number] : 1950 Provider: Yasmin Aiken Age/Sex: 67/F Location: [facility] Status: Signed HPI HPI Details: [...] Lt brachial Intake Visit Reasons: 4 M Night Custodian Required: No Accompanied by: Is patient in [...] prior to saving. 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 (ZINC PLATER/MMM) 10/17 (30 day event monitor) Coding Level [...] Discharge Instruction Result: Comments: See Note; NOTES: [facility] Medical Records Department [address] [place] [address] Discharge Instruction 10/13/17 1624 MR#: [id number] Acct: [id number] Name: HERMINIA NASH Rep #: [id number] : 1950 67 From: Wenceslao Marley MD [...] problems, contact your Primary Care Provider. Call [facility] ([phone]) or report to the closest Emergency Room. Call 911 if necessary. 1710 <Electronically signed by Wenceslao Marley MD> Date Wenceslao Marley MD Cosigner Signature (If Indicated): Date _ CC: Hannah Leos DO 13-Oct-2017 Emergency Department Summary Result: Comments: See Note; NOTES: [facility] Medical Records Department [address] [place] [address] Emergency Department Summary 10/13/17 1240 MR#: [id number] Acct: [id number] Name: HERMINIA NASH Rep #: [id number] : 1950 67 From: Wenceslao Marley MD PCP: Hannah Leos DO Status: DEP ER - ER Visit Summary Date of Service: 10/13/17 Chief Complaint: Cough, fever and ch ills History of Present Illness: The patient is a 67 F past medical history significant for hemorrhagic CVA, stx-xgmemmk-lgjeflock diabetes, hypertension, A. fib, seizure disorder. Patient [...] of CVA. With seizure disorder. History of qwb-dtzmmuo-gxbybhbiz diabetes. History of A. fib T his note was generated with NeuWave [employer] dictation software. It may contain incorrect words, [...] problems, contact your Primary Care Provider. Call [facility] Registry ([phone]) or report to the closest Emergency Room. Call 911 if necessary. 10/13/17 170 9 <Electronically signed by Wenceslao Marley MD> Date Wenceslao Marley MD Cosigner Signature (If Indicated): Date CC: Hannah Leos DO 13-Oct-2017 Consultation Result: Comments: See Note; NOTES: [facility] Medical Records Department [address] [place] [address] Consultation 10/13/17 1608 MR#: [id number] Acct: [id number] Name: HERMINIA NASH Rep #: [id number] : 1950 67 From: Noe Kwok MD [...] history Psychiatric History: No pertinent psych hx CALL OR CONTACT CENTRE OPERATOR History: No pertinent CALL OR CONTACT CENTRE OPERATOR history Smoking Status: Never smoker - *Family [...] (Auto) Neut % (Auto) Lymph % (Auto) [place] % (Auto) Diagnostic Data Chest X-Ray 10/13/17 [...] outpatient. Code Visit Inpatient E AND M: 63900 Ini t Hosp L2 10/13/17 1625 <Electronically signed by Noe Kwok MD> Date Noe Kwok MD Cosigner Signature (if applicable): Date CC: Hannah Leos DO Signed 13-Oct-2017 Chest PA and Lateral Result: Comments: See Note; NOTES: [facility] Imaging Services [address] [place] [address] Chest PA and Lateral MR#: [id number] Acct: [id number] Name: HERMINIA NASH Rep #: [id number] : 1950 F 67 From: Anna Becerra MD PCP: Hannah Leos DO Status: REG ER Study: Chest PA and Lateral Date of Exam: 10/13/17 Exam# [id number] Ordering Dr: Wenceslao Marley MD STUDY: X-RAY [...] CC: Wenceslao Marley MD; Hannah Leos DO Transit Mix Operator: Signed 06-Oct-2017 Emergency Department Summary Result: Comments: See Note; NOTES: [facility] Medical Records Department [address] [place] [address] Emergency Department Summary 10/06/17 2224 MR#: [id number] Acct: [id number] Name: HERMINIA NASH Rep #: [id number] : 1950 67 From: Francia Lr MD [...] bleeding This note was genera gayla with NeuWave Medical dictation software. It may contain incorrect words, [...] your Primary Care Provider. Call [facility] ([phone]) or report to the closest Emergency Room. Call 911 if necessary. 10/06/17 2318 <Electronica lly signed by Francia Lr MD> Date Francia Lr MD Cosigner Signature (If Indicated): Date CC: Hannah Leos DO 06-Oct-2017 Pelvic (Non ) Result: Comments: See Note; NOTES: [facility] Imaging Services [address] [place] [address] Pelvic (Non ) MR#: [id number] Acct: [id number] Name: HERMINIA NSAH Rep #: [id number] : 1950 F 67 From: Tirso Ovalle PCP: Hannah Leos DO Status: REG ER Study: Pelvic (Non ) Date of Exam: 10/06/17 Exam# [id number] Ordering Dr: Francia Lr MD STUDY: ULTRASOUND [...] CC: Francia Lr MD; Hannah Leos DO Transit Mix Operator: Signed 06-Oct-2017 Chest 1 View (Portable) Result: Comments: See Note; NOTES: [facility] Imaging Services [address] [place] [address] Chest 1 View (Portable) MR#: [id number] Acct: [id number] Name: HERMINIA NASH Rep #: [id number] : 1950 F 67 From: Tirso Ovalle PCP: Hannah Leos DO Status: [facility] ER Study: Chest 1 View (Portable) Date of Exam: 10/06/17 Exam# [id number] Ordering Dr: Francia Lr MD STUDY: X-RAY [...] DO at 21:42 EST , Service support [phone], CC: Francia Lr MD; Hannah Leos DO Transit Mix Operator: Signed 03-Sep-2017 Emergency Department Summary Result: Comments: See Note; NOTES: [facility] Medical Records Department [address] [place] [address] Emergency Department Summary 09/02/17 2105 MR#: [id number] Acct: [id number] Name: HERMINIA NASH Rep #: [id number] : 1950 67 From: Jesus Alberto Fernandes [...] at 19:47 EST , Service support , [facility] Course and Treatment: Patient was given [...] Recurrent seizure. This note was generated with NeuWave Medical dictation software. It may contain incorrect words, [...] your Primary Care Provider. Call [facility] ([phone]) or report to the closest Emergenc y Room. Call 911 if necessary. 09/03/17 0218 <Electronically signed by Jesus Alberto Fernandes MD> Date Jesus Alberto Fernandes MD Cosigner Signature (If Indicated): Date CC: Hannah Leos DO 02-Sep-2017 Brain W/WO Contrast Result: Comments: See Note; NOTES: [facility] Imaging Services [address] [place] [address] Brain W/WO Contrast MR#: [id number] Acct: [id number] Name: HERMINIA NASH Rep #: [id number] : 1950 F 67 From: Darrell Prado MD PCP: Hannah Leos DO Status: [facility] ER Study: Brain W/WO Contrast Date of Exam: 09/02/17 Exam# [id number] Ordering Dr: Jesus Alberto Fernandes MD STUDY: [...] Hannah Leos DO; Jesus Alberto Fernandes MD Transit Mix Operator: Signed 02-Sep-2017 Brain/Head without Contrast Result: Comments: See Note; NOTES: [facility] Imaging Services [address] [place] [address] Brain/Head without Contrast MR#: [id number] Acct: [id number] Name: HERMINIA NASH Rep #: [id number] : 1950 F 67 From: Greg Leiva MD PCP: Hnanah Leos DO Status: PRE ER Study: Brain/Head without Contrast Date of Exam: 09/02/17 Exam# [id number] Ordering Dr: Jesus Alberto Fernandes MD STUDY: [...] Hannah Leos DO; Jesus Alberto Fernandes MD Transit Mix Operator: Signed 20-Aug-2017 PT D/C Summary (1) Result: Comments: See Note; NOTES: [facility] Physical Therapy [facility] [address] [place] [address] Fax REHABILITATION SERVICES DISCHAR GE SUMMARY MR#: [id number] Acct: [id number] Name: HERMINIA NASH Rep #: [id number] [...] have been met and will discharge to [facility]. If there are questions or concerns regarding this patient's physical therapy, please feel free to call me at [phone]. Thank you for the referral of this patient. Sincerely, Karel Kwong, FLORIDAT, OC &am p;#60;Electronically signed by Karel Kwong DPT, YULISA, CSCS> 08/20/17 1619 CC: Hannah Leos DO EBG Signed 04-Aug-2017 Re-Evaluation - PT (1) Result: Comments: See Note; NOTES: [facility] Physical [facility] [address] [place], [place] [address] Fax REEVALUATION / MEDICARE RECERTI FICATION PHYSICAL THERAPY MR#: [id number] Acct: [id number] Name: HERMINIA NASH Rep #: [id number] : 1950 67 From: Karel Kwong DPT, [...] do not hesitate to contact me at [phone] by phone or if you have questions or concerns regarding this new plan of care! Sincerely, Karel Kwong DPT, OC <Electronically signed by Karel BARTHOLOMEWT, OCS, [facility]> 7 0746 CC: Hannah Leos DO EBG Signed For Medicare only, by signing this I certify the plan of care. Physicians Signature Date 03-Aug-2017 Re-Evaluation - PT (1) Result: Comments: See Note; NOTES: [facility] Physical [facility] [address] [place] [address]. [address] [place] [address] Fax REEVALUATION / MEDICARE RECERTI [facility] PHYSICAL THERAPY MR#: [id number] Acct: [id number] Name: HERMINIA NASH Rep #: [id number] : 1950 67 From: Shaunna Buitrago DPT [...] do not hesitate to contact me at [phone] by phone or if you have questions or concerns regarding this new plan of care! Sincerely, Shaunna Buitrago <Electronically signed by Shaunna Mclain om DPT> 08/03/17 1054 CC: Hannah Leos DO EMILY Signed For Medicare only, by signing this I certify the plan of care. Physicians Signature Date 09-Jul-2017 Re-Evaluation - PT (1) Result: Comments: See Note; NOTES: [facility] Physical Therapy [facility] [address] [place], [place] [address] Fax REEVALUATION / MEDICARE RECERTMarybeth LONG PHYSICAL THERAPY MR#: [id number] Acct: [id number] Name: HERMINIA NASH Rep #: [id number] : 1950 67 From: Shaunna Buitrago DPT [...] do not hesitate to contact me at [phone] by phone or Fax: if you have questions or concerns regarding this new plan of care! Sincerely, Sahunna Buitrago <Electronically signed by Shaunna Buitrago DPT> 07/09/17 1252 CC: Hannah Leos DO ELR Signed For Medicare only, by signing this I certify the plan of care. Physicians Signature Date 23-Jun-2017 PT Communication Result: Comments: See Note; NOTES: [facility] [address] [place] [address]. [address] [place] [address] Fax REHABILITATION SERVICES PROGRES S NOTE MR#: [id number] Acct: [id number] Name: HERMINIA NASH Rep #: [id number] : 1950 67 From: Karel Kwong DPT, OCS, CSCS Referring Dr.: Hannah Leos DO Status: REG RCR Insurance: [employer] MEDICARE PPO PT Communication Note 06/15/[address] Hannah Leos , Thank you for the referral of Herminia to [facility] for balance assessment. I have enclosed [...] Contact Information 06/23/17 0741 <Electronically signed by Karle Kwong DPT, OCS, CSCS> Date Karel Varghese DPT, OCS, CSCS Cosigner Signature (if applicable): Date CC: Hannah Leos DO Signed For Med icare only, by signing this I certify the plan of care. Physicians Signature Date 21-Jun-2017 Emergency Department Summary Result: Comments: See Note; NOTES: [facility] Medical Records Department [address] [place] [address] Emergency Department Summary 06/20/17 2105 MR#: [id number] Acct: [id number] Name: HERMINIA NASH Rep #: [id number] : 1950 67 From: Huy Caballero PCP: [...] for ED Patient: Disposition: Acute Care Hospital [facility] Chief Complaint: Seizure Diagnosis: Atrial fibrillation with RVR , Breakthrough seizure Referrals: Hannah Leos, [NON-STAFF] - What to do if you have Problems For any increased pain, shortness of breath, bleeding, nausea or vomiting, chest pain, or any une xpected problems, contact your Primary Care Provider. Call [facility] ([phone]) or report to the closest Emergency Room. Call 911 if necessary. 06/20/172321 <Electronically signed by Huy Caballero> Date Huy Caballero Cosigner Signature (If Indicated): Date CC: Hannah Leos DO 20-Jun-2017 Emergency Department Summary Result: Comments: See Note; NOTES: [facility] Medical Records Department [address] [place] [address] Emergency Department Summary 06/20/175 MR#: [id number] Acct: [id number] Name: HERMINIA NASH Rep #: [id number] : 1950 67 From: Huy Caballero PCP: aHnnah Leos DO Status: REG ER - ER [...] for ED Patient: Disposition: Acute Care Hospital [facility] Chief Complaint: Seizure Diagnosis: Atrial fibrillation with RVR, Isela rainey seizure Referrals: Hannah Leos, [NON-STAFF] - What to do if you have Problems For any increased pain, shortness of breath, bleeding, nausea or vomiting, chest pain, or any unexpected prob lems, contact your Primary Care Provider. Call [facility] ([phone]) or report to the closest Emergency Room. Call 911 if necessary. 06/20/172321 <Electronically signed by Huy Spear> Date Huy Caballero Cosigner Signature (If Indicated): Date CC: Hannah Leos DO 20-Jun-2017 Chest 1 View (Portable) Result: Comments: See Note; NOTES: [facility] Imaging Services [address] [place] [address] Chest 1 View (Portable) MR#: [id number] Acct: [id number] Name: HERMINIA NASH Rep #: [id number] : 1950 F 67 From: Stef Wong MD PCP: Hannah Leos DO Status: REG ER Study: Chest 1 View (Portable) Date of Exam: 06/20/17 Exam# [id number] Ordering Dr: Huy Pitts DO STUDY: X-RAY [...] , CC: Hannah Leos DO; Huy Pitts Transit Mix Operator: Signed 02-Jun-2017 SCREENING MAMM (CAD), BILAT Result: Comments: See Note; NOTES: [facility] Imaging Services [address] [place] [address] SCREENING MAMM (CAD), BILAT MR#: [id number] Acct: [id number] Name: HERMINIA NASH Rep #: [id number] : 1950 F 67 From: Martha Delgado MD PCP: Hannah Leos DO Status: REG CLI Study: SCREENING MAMM (CAD), BILAT Date of Exam: 06/02/17 Exam# [id number] Ordering Dr: Hannah Leos DO MAMMOGRAPHY - [...] significant abnormalities are identified. ORDER # : [id number] HPBI/SCREENING MAMM (CAD), BILAT IMPRESSION: Stable bilateral screening mammogram. Yearly follow-up mammogram recommended. (A) ASSESSMENT CATEGORY: BIRA DS Category 2: Benign. A letter regarding these results will be sent to the patient by the facility within 30 days. Approximately 10% of breast cancers are not detected by mammography. A normal mammogr am should not delay biopsy of a clinically suspicious abnormality. [id number] Electronically Signed: Martha Delgado MD at 15:16 EDT Tel , Service support , Fax CC: Hannah Leos DO Transit Mix Operator: Signed 27-May-2017 Inital Evaluation (1) - PT Result: Comments: See Note; NOTES: [facility] Physical [facility] [address] [place] [address]. [address] [place] [address] Fax REHABILITATION SERVICES INITIAL EVALUATION MR#: [id number] Acct: [id number] Name: HERMINIA NASH Rep #: [id number] : 1950 67 From: Shaunna Buitrago DPT [...] she was on a plane back to [place]. 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 She is little traverse ng to get back to these things [...] to be FAXED BACK to us at [phone] for Medicare purposes. Please let me know if there are questions or concerns regarding this plan of care. Physician Signature: Date: <Electronically signed by Shaunna Barragan PT> 05/27/17 1058 CC: Hannah Leos DO ELR Signed For Medicare only, by signing this I certify the plan of care. Physicians Signature Date 21-May-2017 OT D/C Summary Result: Comments: See Note; NOTES: [facility] Occupational Therapy [facility] [address] [place] [address] Fax REHABILITATION SERVICES DIS CHARGE SUMMARY MR#: [id number] Acct: [id number] Name: HERMINIA NASH Rep #: [id number] : 1950 67 From: Deyanira [place] Referring [...] WFL. Pt. strength measurments are as follows; sheet catcher R 52, L 44; lat eral R [...] Ho bbies Goal:: Pt. to increase L sheet catcher by 20 lbs to promote increase sheet catcher strength for ADl/AIDls and manipualtion of bilateral [...] please fell free to call me at [phone]. Thank you for the referral of this patient. Sincerely, Deyanira [place] <Ana Maria ctronically signed by Deyanira [place] > 05/21/17 1121 CC: Hannah Leos DO KMB Signed 20-May-2017 Emergency Department Summary Result: Comments: See Note; NOTES: [facility] Medical Records Department [address] [place] [address] Emergency Department Summary 05/20/17 1638 MR#: [id number] Acct: [id number] Name: HERMINIA NASH Rep #: [id number] : 1950 67 From: Juan Mendiola MD [...] discussion with pharmacist she was loaded with [employer]. Case was discussed with Dr. Schaffer after [...] Primary Care Provid er. Call [facility] ([phone]) or report to the closest Emergency Room. Call 911 if necessary. 05/20/17 1644 <Electronically signed by Juan Mendiola MD> Date Juan Mendiola MD Cosigner Signature (If Indicated): Date CC: Hannah Leos DO; Armando Schaffer MD 20-May-2017 Brain/Head without Contrast Result: Comments: See Note; NOTES: [facility] Imaging Services [address] [place] [address] Brain/Head without Contrast MR#: [id number] Acct: [id number] Name: HERMINIA NASH Rep #: [id number] : 1950 F 67 From: Paresh Kebede MD PCP: Hannah Leos DO Status: REG ER Study: Brain/Head without Contrast Date of Exam: 05/20/17 Exam# [id number] Ordering Dr: Juan Mendiola MD STUDY: CT [...] Paresh Kebede MD at 16:07 EDT Tel [phone], Service support , CC: Hannah Leos DO; Juan Mendiola MD Transit Mix Operator: Signed 21-Apr-2017 Brain without Contrast Result: Comments: See Note; NOTES: [facility] Imaging Services [address] [place] [address] Brain without Contrast MR#: [id number] Acct: [id number] Name: HERMINIA NASH Rep #: [id number] : 1950 F 67 From: Martha Delgado MD PCP: Hannah Leos DO Status: REG CLI Study: Brain without Contrast Date of Exam: 04/21/17 Exam# [id number] Ordering Dr: Manjinder Turpin MD STUDY: MRI [...] by Martha Delgado MD to Manjinder Turpin, [facility] Physician, on 04/21/2017 16:04:47 (ET). Elect ronically Signed: Martha Delgado MD at 16:04 EDT Tel , Service support , N.B. : The above information has been verbally conveyed by Martha Delgado MD to Manjinder Turpin, Covering Physician, on 04/21/2017 16:04:47 (ET). CC: Manjinder Turpin; Hannah Leos DO Transit Mix Operator: Signed 21-Apr-2017 OT General Evaluation Result: Comments: See Note; NOTES: [facility] Occupational Therapy [facility] [address] [place] [address] Fax REHABILITATION SERVICES INI TIAL EVALUATION MR#: [id number] Acct: [id number] Name: HERMINIA NASH Rep #: [id number] : 1950 67 From: Deyanira [place] Referring Dr.: Hannah Leos DO Status: REG RCR Insurance: HUMAN A MEDICARE PPO Eval Date: Patient's Visit Information HERMINIA NASH is a 67 year old F, referred to Occupational Therapy by Hannah Leos,, with a diagnosis of Cerebral Hemorrhage. Date of Eval uation: 04/20/17 Occupational Therapist: Deyanira [place] - Subjective Subjective: Pt., Hreminia, noted her main symptom is numbness and [...] presents with L sided weakness. Pt. R sheet catcher 70 lbs, L 49 lbs. Pt. seizure occured during session. Lasted 2 mins and then subsided w ith medication. No loss of conciousness or movement. Pt. able to walk with out of session. - ROM Shoulder: WFL Elbow: WFL Forearm: WFL Wrist: WFL MP: WFL PIP: WFL DIP: WFL - Strength Shoulder: R 4+/5, L 4-/5 Elbow: R 4+/5, L 4-/5 Machinist Set Up: R 70 L 49 Lateral Pinch: R [...] sa fety. Family to call in to [facility] follow-up appointments. Varbalized undertsanding and to continue [...] - Goals Goal:: Pt. to increase L sheet catcher by 20 lbs to promote increase sheet catcher strength for ADl/AIDls and manipualtion of bilateral [...] to be FAXED BACK to us at [phone] for Medicare purposes. Please let me know if there are questions or concerns regarding this plan of care. Physician Signature: Date: <Electronically signed by Deyanira [place] > 04/21/17 0921 CC: Hannah Leos DO KMB Signed For Medicare only, by signing this I certify the plan of care. Physicians Signature Date 20-Apr-2017 Adult Evaluation - SP Result: Comments: See Note; NOTES: [facility] Speech Pathology [facility] 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 Right Hearing Abillity: Normal Left Hearing Abillity: [...] <Electronic ally signed by Aries Dan M.A. [facility]> 04/20/17 1418 CC: Hannah Leos DO YASSINE Signed For Medicare only, by signing this I certify the plan of care. ____ Physicians Signature Date 16-Apr-2017 Brain/Head without Contrast Result: Comments: See Note; NOTES: [facility] Imaging Services [address] [place] [address] [place] [address] Brain/Head without Contrast MR#: [id number] Acct: [id number] Name: HERMINIA NASH Rep #: [id number] : 1950 F 67 From: Paresh Kebede MD PCP: Hannah Leos DO Status: REG CLI Study: Brain/Head without Contrast Date of Exam: 04/16/17 Exam# [id number] Ordering Dr: Ramiro Leos DO STUDY: CT [...] Paresh Kebede MD at 15:34 EDT Tel [phone], Service support , CC: Hannah Leos DO Transit Mix Operator: Signed 08-Apr-2017 Emergency Department Summary Result: Comments: See Note; NOTES: [facility] Medical Records Department [address] [place] [address] Emergency Department Summary 04/08/17 0711 MR#: [id number] Acct: [id number] Name: HERMINIA NASH Rep #: [id number] : 1950 67 From: Martin Rodriguez MD [...] intracranial hemorrhage and was actually hospitalized in [place]. Apparently the patient is still in recovery [...] Primary Care Provide r. Call [facility] ([phone]) or report to the closest Emergency Room. Call 911 if necessary. 04/08/17 0743 <Electronically signed by Martin Rodriguez MD> Date ____ Martin Rodriguez MD Cosigner Signature (If Indicated): Date CC: Hannah Leos DO 08-Apr-2017 Chest 1 View (Portable) Result: Comments: See Note; NOTES: [facility] Imaging Services [address] [place] [address] Chest 1 View (Portable) MR#: [id number] Acct: [id number] Name: HERMINIA NASH Rep #: [id number] : 1950 F 67 From: Ady Steele MD PCP: Hannah Leos DO Status: REG ER Study: Chest 1 View (Portable) Date of Exam: 04/08/17 Exam# [id number] Ordering Dr: Martin Rodriguez MD STUD Y: [...] , CC: Hannah Leos DO; Martin Rodriguez Transit Mix Operator: Signed 08-Apr-2017 Brain/Head without Contrast Result: Comments: See Note; NOTES: [facility] Imaging Services [address] [place] [address] Brain/Head without Contrast MR#: [id number] Acct: [id number] Name: HERMINIA NASH Rep #: [id number] : 1950 F 67 From: Ady Steele MD PCP: Hannah Leos DO Status: REG ER Study: Brain/Head without Contrast Date of Exam: 04/08/17 Exam# [id number] Ordering Dr: Martin Rodriguez STUDY: CT BRAIN [...] , CC: Hannah Leos DO; Martin Rodriguez Transit Mix Operator: Signed 08-Mar-2017 Elbow min 3 Views Result: Comments: See Note; NOTES: [facility] Imaging Services [address] [place] [address] Verdana 4d Elbow min 3 Views MR#: [id number] Acct: [id number] Name: HERMINIA NASH Rep #: [id number] : 1950 F 66 From: Greg Leiva MD PCP: Hannah Leos DO Status: REG CLI Study: Elbow min 3 Views Date of Exam: 03/08/17 Exam# [id number] Ordering Dr: Daniela Herzog STUDY: X-RAY - RIGHT ELBOW REASON FOR EXAM: Female, 66 years old. Pain. TECHNIQUE: 3 view(s) of the elbow. COMPARISON: None. FINDINGS: Normal visualized humerus, radius and u shredded filler machine wrapper layer. There is degenerative arthrosis of the radiocapitellar and ulnotrochlear articulations. The soft tissue structures are unremarkable. RAD/El bow min 3 Views IMPRESSION: No acute fracture or dislocation. Arthrosis. Electronically Signed: Greg Leiva MD at 14:47 EDT , Service support , Fax CC: Daniela Herzog; Hannah Leos DO Transit Mix Operator: Signed 22-Oct-2015 Bilat Scrn Digital AND CAD Result: Comments: See Note; NOTES: [facility] Imaging Services [address] [place] [address] Verdana 4d Bilat Scrn Digital AND CAD MR#: [id number] Acct: [id number] Name: HERMINIA NASH Rep #: [id number] : 1950 F 65 From: Paresh Kebede MD PCP: Hannah Leos DO Status: REG CLI Study: Bilat Scrn Digital AND CAD Date of Exam: 10/22/15 Exam# [id number] Or dering Dr: Hannah Leos DO MAMMOGRAPHY [...] Paresh Kebede MD at 16:11 EST Tel [phone], Service support [phone], CC: Hannah Leos DO Transit Mix Operator: Signed 22-Oct-2015 Dexa Bone Density Study (HP) Result: Comments: See Note; NOTES: [facility] Imaging Services [address] [place] [address] Verda 4d Dexa Bone Density Study () MR#: [id number] Acct: [id number] Name : HERMINIA NASH Rep #: [id number] : 1950 F 65 From: Paresh Kebede MD PCP: Hannah Leos DO Status: [facility] Study: Dexa Bone Density Study (HP) Date of Exam: 10/22/15 Exam# [id number]: Hannah Leos DO STUDY: [...] Paresh Kebede MD at 8:05 EST Tel [phone], Service support [phone], CC: Hannah Leos DO Transit Mix Operator: Signed 17-Oct-2015 ELECTROCARDIOGRAM, COMPLETE (ECG) (95569) Comments: nsr no acute chg Result: [MEASUREMENTS ANALYSIS] Date of Test: 10/17/2015 08:35:17; Heart Rate: 61; MO Interval: 176; QRS: 104; QT Interval: 402; Corrected QT Interval (QTc): 403; P Wave Ogema: -1; QRS Wave Ogema: 9; T Wave Ogema: -1; Blood Pressure: 148/84 [ECG DIAGNOSTIC STATEMENTS] [...] smoker Vital Signs Date Test Result Details 67-Ntq-870789:27 Comments: [id number] BP Systolic 130 mm[Hg] Comments: Patient Position: [...] kg/m2 Body Surface Area Calculated 1.8 m2 0-Yni-836522:36 Temperature 97.6 f Comments: Method: Temporal Pulse [...] 0.00 cm Results Date Description Value Details 40-Pwq-794005:27 Miscellaneous Lab Procedure Comments: Comments: [id number] LACOSAMIDE SER RTTest(s) Ordered: [id number] LACOSAMIDE SER [facility] [address] [place], [place], [id number] [facility] Comments: TEST RESULT UNITS REFERENCE INTERVALLacosamideLacosamide 16.6 High ug/mL 5.0 - 10.0 Limit of Detection 0.5 Mean plasma concen LAB (Normal) trations following maintenance dose 200 mg/day 4.99 +/- 2.51 ug/mL 400 mg/day 9.35 +/- 4.22 ug/mL 600 mg/day 12.46 +/- 5. TEST 60 ug/mLPlease Note:This test was developed and its performance characteristicsdetermined by [facility]. It has not been cleared or approvedby the Food and Drug Administration. TESTING PERFORMED AT [facility]. ORIGINAL REPORT ON FILE IN LAB CONTAINS ADDITIONAL TEST SITE INFORMATION. 15-Ksv-025285:27 Valproic Acid (Depakene) Level Comments: [facility] [address] [place], [place], [address] VALPROIC ACID 65 ug/mL (Normal) Range: 50-100 70-Ntu-031576:31 Potassium Comments: [facility] [address] [place], [place], [address] K 4.8 mmol/L (Normal) Range: 3.5-5.1 01-Gqj-122727:49 METABOLIC PANEL, COMPREHENSIVE Comments: PATIENT NOT FASTINGPERFORMED BY: [facility] Emfexd7474 [facility] [id number] ([id number]) ALT (SGPT) 1 [iU]/L (Normal) Range: 0-32 [...] be decreased and K increased. Clinicalcorrelation indicated. 97-Dmf-753171:49 CBC, PLATELETS & AUT DIFF Comments: PATIENT NOT FASTINGPERFORMED BY: [facility] Jhtstn4156 [facility] [id number] ([id number]) Immature Grans (Abs) 0.0 {x10E3/uL} (Normal) Range: [...] 3.77-5.28 WBC 5.7 {x10E3/uL} (Normal) Range: 3.4-10.8 64-Xsm-972131:16 URINE FAVIAN CULTURE-IDENTIFICATN Comments: PATIENT NOT FASTINGPERFORMED BY: RENARD [facility] [address] [place] [id number] Information: SRC:UC ([id number]) Result 1 MUG (Normal) Comments: Mixed urogenital flora10,000-25,000 colony forming units per mL Urine Final report (Normal) Culture,Comprehensive 70-Ddk-237668:14 Urinalysis, Office (27471) UA - LEUKOCYTE ESTERASE Negative (Normal) UA - NITRITE Negative (Normal) URINE UROBILINGN KEERTHI TIMED Normal mg/dL (Normal) UA - PROTEIN 100 mg/dL (Normal) UA - PH 6 (Abnormal) UA - BLOOD Negative (Normal) UA - SPECIFIC GRAVITY 1.000 (Normal) UA - KETONES Negative mg/dL (Normal) UA - BILIRUBIN Negative (Normal) UA - GLUCOSE Negative (Normal) 80-Lfj-103327:31 Protein+Creatinine Ratio,Urine Comments: [facility] [address] [facility], [address] PROT:CRE RATIO 1411 {mg/g_CRE} (Abnormal) Range: 0-200 PROTEIN,UR.RAN. 63.9 mg/dL (Abnormal) UR CREAT 45.30 mg/dL (Normal) 41-Nkd-623467:31 Renal Profile Comments: [facility] [address] [facility] [place], [place], [address] CO2 24.0 mmol/L (Normal) Range: 21.0-32.0 CL [...] A.D.A. criteria.Please note revised GLUCOSE reference range onmegyzeg83/02/2018. 28-Hje-459010:43 IGA/IGD/IGG/IGM-EACH (77486) Comments: PATIENT NOT FASTINGPERFORMED BY: CB [facility] Tmkphl0137 [facility] [id number] BY: [facility] [address] [id number] Immunoglobulin E, Total 15 {IU/mL} (Normal) Range: 0-100 Immunoglobulin M, Qn, Serum 84 mg/dL (Normal) Range: 26-217 Immunoglobulin A, Qn, Serum 265 mg/dL (Normal) Range: 87-352 Immunoglobulin G, Qn, Serum 1461 mg/dL (Normal) Range: 700-1600 83-Ehe-363867:40 Urinalysis, Complete Comments: Order Date: 03/25/18COLOR OF URINE MAY AFFECT DIPSTICK RESULTS.How was Urine Obtained? MOVIE ACTOR [facility] [address] [place], [place], [address] AMORPHOUS 2+ (Normal) MUCUS, URINE 0 SEEN [...] CLARITY Sl. Cloudy (Normal) COLOR Mitra (Normal) 21-Azd-679925:45 CBC W/Diff, Automated Comments: [facility] [address] [place], [address] RED CELL MORPH NORM C+C {NORMAL} (Normal) [...] 4.2-5.4 WBC 5.2 K/mm3 (Normal) Range: 4.4-11.0 86-Ulu-947835:45 Comprehensive Metabolic Profil Comments: [facility] [address] [place], [address] GAP 13 (Normal) Range: 5-15 CO2 20.0 [...] criteria.Please note revised GLUCOSE reference range /2018. 19-Ehy-741390:45 Lactic Acid Comments: Yes/No query for Sepsis Lactate Rule [facility] [address] [place], [address] LACTIC ACID 4.8 mmol/L (Abnormal) Range: 0.4-2.0 Comments: Critical Result(s) Called at: 13:34:37 03/25/2018 by:Morenita Zamora 76-Swu-806100:45 Partial Thromboplast Time Comments: [facility] [address] [place], [address] PTT 37.8 s (Abnormal) Range: 24.1-36.2 96-Jhm-022489:45 Prothrombin Time w/INR Comments: [facility] [address] [place], [address] INR 1.1 (Normal) PROTIME 14.6 s (Normal) Range: 11.7-14.9 86-Dir-261372:45 Troponin-I Comments: [facility] [address] [facility] [address] [place], [place], [address] TROPONIN-I < 0.015 ng/mL (Normal) Comments: TROPONIN-I EXPECTED VALUES <0.045 Negative 0.045 - 0.590 Consistent with Cardiac Damage > OR = 0.600 Critical Value Not every elevated troponin is indicative of FL. T hesevalues should be used with clinical judgement in examiningthe patient's clinical picture for diagnosis. To establisha diagnosis of FL versus myocardial injury, there must be ademonstrated rise and/ or fall in the troponin values, inaddition to ischemic symptoms, EKG changes, new regionalwall motion abnormality, and/or angiographical evidence. PLEASE NOTE: REFERENCE RANGES EDITED 01/10/1821-Mar-201814-Nwp-059389:12 Microscopic Examination Comments: PATIENT WAS FASTINGPERFORMED BY: [facility] Wcryzn1709 [facility] [id number] Bacteria Moderate (Abnormal) Mucus Threads Present (Normal) Epithelial Cells (non renal) 0-10 {/hpf} (Normal) Range: 0 - 10 RBC 3-10 {/hpf} (Abnormal) Range: 0 - 2 WBC >30 {/hpf} (Abnormal) Range: 0 - 5 Comments: Clumps of leukocytes present. 60-Osd-148525:57 HgA1C , Office (70124) HgA1C , Office 9.8 % (Abnormal) Range: 4.6 - 7.1 99-Omk-004394:56 Microalb:Creat Ratio,Random UR Comments: [facility] [address] [place], [address] MALB:CREAT 3256.8 {mg/g_CRE} (Abnormal) MICROALBUMIN,UR 2410.0 mg/L (Normal) UR CREAT 74.00 mg/dL (Normal) 92-Kqv-885161:12 CALCIFIDIOL (70113) VIT D 25 Comments: PATIENT WAS FASTINGPERFORMED BY: [employer] [facility] [place] [id number] Vitamin D, 25-Hydroxy 18.2 ng/mL (Abnormal) Range: 30.0-100.0 Comments: Vitamin D deficiency has been defined by the [place] of[place] and an Endocrine Society practice guideline as alevel of serum 25-OH vitamin D less than 20 ng/mL (1,2).The Endocrine Society went on to further define vitamin Dinsufficiency as a level between 21 and 29 ng/mL (2).1. IOM ([place] [employer]). 2010. Dietary reference intakes for calcium and D. [place]: The National Academies Press.2. Swathi MF, Alexandra NC, Judy OLMEDO, et al. Evaluation, treatment, and prevention of vitamin D deficiency: an Endocrine Society clinical practice guideline. JCEM. 2010; 96(7):1911-30. 12-Tlx-572534:12 TSH (82631) Comments: PATIENT WAS FASTINGPERFORMED BY: Kwicr [facility] [address] [employer] [place] [id number] TSH 3.550 {uIU/mL} (Normal) Range: 0.450-4.500 74-Mjh-540165:12 URINALYSIS, W/ MICRO (31178) Comments: PATIENT WAS FASTINGPERFORMED BY: Kwicr [facility] [address]taxii[address] [facility] [employer] [id number] Microscopic Examination See below: (Normal) Comments: Microscopic was indicated and was performed. Nitrite, Urine Positive (Abnormal) Urobilinogen,Semi-Qn 0.2 mg/dL (Normal) Range: 0.2-1.0 Bilirubin Negative (Normal) Occult Blood Trace (Abnormal) Ketones Negative (Normal) Glucose Negative (Normal) Protein 3+ (Abnormal) WBC Esterase 2+ (Abnormal) Appearance Cloudy (Abnormal) Urine-Color Yellow (Normal) pH 6.0 (Normal) Range: 5.0-7.5 Specific [place] 1.021 (Normal) Range: 1.005-1.030 81-Dxm-519742:12 MICROALBUMIN: CREATININE RATIO Comments: PATIENT WAS FASTINGPERFORMED BY: [facility] Hospital[facility]oudig4110 [facility] [id number] (85077) AND (91703) Alb/Creat Ratio 5216.8 {mg/g_creat} (Abnormal) Range: 0.0-30.0 Albumin, Urine 4387.3 ug/mL (Normal) Comments: Results confirmed ondilution. Creatinine, Urine 84.1 mg/dL (Normal) 32-Lvr-969485:12 METABOLIC PANEL, COMPREHENSIVE Comments: PATIENT WAS FASTINGPERFORMED BY: [employer] Hfzafb5580 [facility] [id number] (57908) ALT (SGPT) 3 [iU]/L (Normal) Range: 0-32 [...] 8-27 Glucose 222 mg/dL (Abnormal) Range: 65-99 56-Daf-797242:12 LIPID PANEL (50184) Comments: PATIENT WAS FASTINGPERFORMED BY: [employer]70 [facility] [id number] VLDL Cholesterol Luis VLDLCH mg/dL (Normal) Range: 5-40 Comments: The calculation for the VLDL cholesterol is not valid whentriglyceride level is >400 mg/dL.Triglyceride result indicated is too high for an accurate LDLcholesterol estimation. HDL Cholesterol 29 mg/dL (Abnormal) Triglycerides 861 mg/dL (Abnormal) Range: 0-149 Cholesterol, Total 182 mg/dL (Normal) Range: 100-199 07-Ujy-835095:12 CBC W/AUTO DIFF WBC (26619) Comments: PATIENT WAS FASTINGPERFORMED BY: [id number] [facility] [id number] Immature Grans (Abs) 0.0 {x10E3/uL} (Normal) Range: [...] (Normal) Range: 3.4-10.8 :14 HgA1C , Office (98629) HgA1C , Office 8.7 % (Abnormal) Range: 4.6 - 7.1 :14 Blood Glucose , Office (23354) Blood Glucose , Office 225 (Normal) 18-Mfo-174889:06 Bedside Glucose Comments: [facility] LaboratoryPoint of Cfxf3200 [facility] [place] [address] BEDSIDE GLU 144 mg/dL (Abnormal) Range: 70-110 Comments: MANAGEMENT OF PATIENT CARE PER NURSING PROTOCOL 3-Iha-410878:49 Basic Metabolic Profile (BMP) Comments: [facility] Alepakasbo6630 [facility]. [place], [place], [id number] GAP 6 (Normal) Range: 5-15 CO2 29.0 [...] A.D.A. criteria.Please note revised GLUCOSE reference range yfzziaxfj45/02/2018. 4-Rbf-657516:49 CBC-Complete Blood Cnt No Diff Comments: [facility] [address] [place], [address] MPV 10.3 fL (Normal) Range: [...] 4.2-5.4 WBC 8.0 K/mm3 (Normal) Range: 4.4-11.0 7-Jtf-197037:49 Prothrombin Time w/INR Comments: [facility] [address] [place], [address] INR 1.0 (Normal) PROTIME 13.3 s (Normal) Range: 11.7-14.9 2-Hyo-793216:49 Urinalysis, Complete Comments: How was Urine Obtained? MOVIE ACTOR TO [facility] [address] [place], [address] MUCUS, URINE 0 SEEN {/hpf} [...] CLARITY Sl. Cloudy (Normal) COLOR Yellow (Normal) 9-Eqy-967295:44 Miscellaneous Lab Procedure Comments: Comments: LACOSAMIDE [id number] RED/RTTest(s) Ordered: LACOSAMIDE [id number] [facility] Aeluojufqw050[address]andra[address] [place], [place], [address] [facility] Comments: TEST RESULT LIMITSLacosamide Lacosamide 13.0 High ug/mL 5.0 - 10.0 Limit of Detection 0.5 Mean plasma concentrations f LAB (Normal) ollowing maintenance dose 200 mg/day 4.99 +/- 2.51 ug/mL 400 mg/day 9.35 +/- 4.22 ug/mL 600 mg/day 12.46 +/- 5.60 ug/mLPle TEST ase Note:This test was developed and its performance characteristicsdetermined by [facility]. It has not been cleared or approvedby the Food and Drug Administration. TESTING PERFORMED AT [facility]. ORIGINAL REPORT ON FILE IN LAB CONTAINS ADDITIONAL TEST SITE INFORMATION. 64-Lmv-051010:21 URINE FAVIAN CULTURE-KEERTHI COL Comments: PATIENT NOT FASTINGPERFORMED BY: [facility] Uyqmbg[address] [place] [id number] Information: SRC:UC COUNT (29073) Result 1 MTHREE (Normal) Comments: More than 3 organisms recovered, none predominant. Please submitanother culture if clinically indicated.Greater than 100,000 colony forming units per mL Urine Final report (Normal) Culture,Comprehensive 91-Fyq-208420:12 Urinalysis, Office (08533) UA - LEUKOCYTE ESTERASE Negative (Normal) UA - NITRITE Negative (Normal) URINE UROBILINGN KEERTHI TIMED 2 mg/dL (Normal) UA - PROTEIN 100 mg/dL (Normal) UA - PH 7 (Normal) UA - BLOOD Negative (Normal) UA - SPECIFIC GRAVITY 1.010 (Normal) UA - KETONES Negative mg/dL (Normal) UA - BILIRUBIN Negative (Normal) UA - GLUCOSE 500 (Abnormal) 15-Bjy-137523:53 Microalb:Creat Ratio,Random UR Comments: [facility] Rnrfnmkhcp3304 [facility] [address]. [place], [place], [address] MALB:CREAT 331.9 {mg/g_CRE} (Abnormal) MICROALBUMIN,UR 235.0 mg/L (Normal) UR CREAT 70.80 mg/dL (Normal) 94-Skw-910942:45 Urinalysis, Complete Comments: Order Date: 10/13/17How was Urine Obtained? [facility] Yxhwfmcgel5279 [facility] [address]. [place], [place], [address] MUCUS, URINE RARE {/hpf} (Normal) BACTERIA RARE [...] CLARITY Sl. Cloudy (Normal) COLOR Yellow (Normal) 58-Tjk-796057:55 Albumin, Serum Comments: DR ALVAREZ ADDED A RENAL PANELBu[facility]rus [facility] Hospital [address] [place], [place], [address] ALB 3.7 g/dL (Normal) Range: 3.2-5.0 09-Nsu-280193:55 Basic Metabolic Profile (BMP) Comments: DR ALVAREZ ADDED A RENAL PANELBucyrus [facility] Hospital [address] [place], [place], [address] GAP 12 (Normal) Range: 5-15 CO2 20.0 [...] A.D.A. criteria.Please note revised GLUCOSE reference range uspnpjzkt00/02/2018. 93-Xig-216092:55 CBC W/Diff, Automated Comments: [facility] [address] [place], [address] Absolute Lymph 0.27 {X10_3/ul} (Abnormal) [...] 4.2-5.4 WBC 8.9 K/mm3 (Normal) Range: 4.4-11.0 87-Lbc-480238:55 Lactic Acid Comments: Yes/No query for Sepsis Lactate Rule [facility] [address] [place], [address] LACTIC ACID 2.8 mmol/L (Abnormal) Range: 0.4-2.0 Comments: Critical Result(s) Called at: 13:50:00 10/13/2017 by:Morenita Roberts to [facility] 30-Qnk-511387:55 Phosphorus Comments: DR ALVAREZ ADDED A RENAL PANELWUC Medical Center [address]xtviig[address] [place], [address] PHOS 2.2 mg/dL (Abnormal) Range: 2.5-4.9 6-Gse-600864:55 Basic Metabolic Profile (BMP) Comments: 'TROP' Serial specimen #1, #2, #3, or #4: 1[facility] [address]mcqpbcyx[address] [place], [address] GAP 11 (Normal) Range: 5-15 [...] A.D.A. criteria. :55 CBC W/Diff, Automated Comments: [facility] [address] [place], [address] Absolute Lymph 3.74 {X10_3/ul} (Normal) [...] 4.2-5.4 WBC 7.8 K/mm3 (Normal) Range: 4.4-11.0 3-Jcn-033606:55 Troponin-I Comments: 'TROP' Serial specimen #1, #2, #3, or #4: [address] [place] [address] T[address]zzp8758 [place], [place], [id number] TROPONIN-I 0.03 ng/mL (Normal) Comments: TROPONIN-I EXPECTED VALUES <0.05 NEGATIVE 0.06 - 0.59 AT RISK OF FL > OR = 0.60 SUGGEST FL 07-Oct-20179:39 URINE FAVIAN CULTURE-KEERTHI COL Comments: PATIENT NOT FASTINGPERFORMED BY: [facility] Chonzi7276 [facility] [id number] Information: SRC:UC COUNT (33869) Antimicrobial MIHEAD (Normal) Comments: S = Susceptible; [...] mL (Abnormal) Urine Final report Culture,Comprehensive (Abnormal) 4-Abd-695064:28 Urinalysis, Office (96705) UA - LEUKOCYTE ESTERASE Trace (Normal) UA - NITRITE Negative (Normal) URINE UROBILINGN KEERTHI TIMED Normal mg/dL (Normal) UA - PROTEIN Negative mg/dL (Normal) UA - PH 6 (Abnormal) UA - BLOOD Hemolyzed Trace (Normal) UA - SPECIFIC GRAVITY 1.005 (Normal) UA - KETONES Negative mg/dL (Normal) UA - BILIRUBIN Negative (Normal) UA - GLUCOSE 500 (Abnormal) 95-Eoh-51724:50 HgA1C , Office (05529) HgA1C , Office 7.5 % (Abnormal) Range: 4.6 - 7.1 53-Zcv-77729:50 Blood Glucose , Office (12930) Blood Glucose , Office 196 (Normal) 53-Tgc-929311:34 Free T3 Comments: [facility] [address] [place], [place], [address] ; appt 09/21 FREE T3 2.0 pg/mL (Abnormal) Range: 2.18-3.98 13-Ijy-952320:34 T4 Free Direct Comments: [facility] [address] [place] [address], [id number] T4 FREE DIRECT 1.06 ng/dL (Normal) Range: 0.76-1.46 76-Jor-299118:34 Thyroid Stim Hormone (TSH) Comments: [facility] [address] [place], [place], [address] TSH 0.86 {uIU/mL} (Normal) Range: 0.358-3.74 7-Sfy-276811:55 Basic Metabolic Profile (BMP) Comments: [facility] [address] [place], [place], [address] ; jesus alberto fernandes GAP 10 (Normal) [...] <126 mg/dLsuggests IMPAIRED HOMEOSTASIS per A.D.A. criteria. 5-Hmh-895605:55 CBC W/Diff, Automated Comments: [facility] [address] [place], [place], [address] Absolute Lymph 3.21 {X10_3/ul} (Normal) Range: 0.83-4.51 [...] 4.2-5.4 WBC 8.0 K/mm3 (Normal) Range: 4.4-11.0 40-Qly-478053:28 Microscopic Examination Comments: PATIENT NOT FASTINGPERFORMED BY: [facility] [id number] Bacteria Few (Normal) Mucus Threads Present (Normal) Epithelial Cells (non renal) 0-10 {/hpf} (Normal) Range: 0 - 10 RBC 11-30 {/hpf} (Abnormal) Range: 0 - 2 WBC 11-30 {/hpf} (Abnormal) Range: 0 - 5 15-Mwx-528774:28 MICROALBUMIN: CREATININE RATIO Comments: PATIENT NOT FASTINGPERFORMED BY: [facility] [id number] (98907) AND (05049) Microalb/Creat Ratio 3121.4 {mg/g_creat} (Abnormal) Range: 0.0-30.0 Microalbumin, Urine 2728.1 ug/mL (Normal) Comments: Results confirmed ondilution. Creatinine, Urine 87.4 mg/dL (Normal) 96-Fxs-993931:28 URINALYSIS (85971) Comments: PATIENT NOT FASTINGPERFORMED BY: [facility] [id number] Microscopic Examination See below: (Normal) Comments: Microscopic was indicated and was performed. Nitrite, Urine Negative (Normal) Urobilinogen,Semi-Qn 0.2 mg/dL (Normal) Range: 0.2-1.0 Bilirubin Negative (Normal) Occult Blood 2+ (Abnormal) Ketones Negative (Normal) Glucose Negative (Normal) Protein 3+ (Abnormal) WBC Esterase 1+ (Abnormal) Appearance Clear (Normal) Urine-Color Yellow (Normal) pH 6.5 (Normal) Range: 5.0-7.5 Specific [place] 1.014 (Normal) Range: 1.005-1.030 35-Csx-673757:33 Urinalysis, Complete Comments: Order Date: 06/20/17Has pt arrived? YHow was Urine Obtained? CLEAN [facility] [address]ems[address] [place], [place], [address] HYALINE CAST 0-5 SEEN {/lpf} (Normal) Range: [...] (Normal) CLARITY Clear (Normal) COLOR Straw (Normal) 96-Bec-573503:42 Basic Metabolic Profile (BMP) Comments: [facility] [address] [place], [place], [address] GAP 14 (Normal) Range: 5-15 CO2 22.0 [...] 126 mg/dLsuggests DIABETES MELLITUS per A.D.A. criteria. 65-Uqi-860994:42 CBC W/Diff, Automated Comments: [facility] [address] [place], [place], [address] Absolute Lymph 2.82 {X10_3/ul} (Normal) Range: 0.83-4.51 [...] (Normal) Range: 4.4-11.0 :18 HgA1C , Office (13102) HgA1C , Office 6.4 % (Normal) Range: 4.6 - 7.1 :18 Blood Glucose , Office (55631) Blood Glucose , Office 173 (Normal) 6-Jbp-591331:20 Urine Culture,Comprehensive Comments: PERFORMED BY: [facility] Rfnfwn1316 [facility] [id number] Information: SRC:UR Antimicrobial MIHEAD (Normal) Comments: S [...] mL (Abnormal) Urine Final report Culture,Comprehensive (Abnormal) 97-Kdg-917784:14 Basic Metabolic Profile (BMP) Comments: [facility] [address] [place], [address] GAP 14 (Normal) Range: 5-15 CO2 20.0 [...] 126 mg/dLsuggests DIABETES MELLITUS per A.D.A. criteria. 6-Bpc-653465:15 URINE FAVIAN CULTURE-IDENTIFICATN Comments: PATIENT NOT FASTINGPERFORMED BY: [facility] Eshnpj1414 [facility] [id number] Information: SRC:ARNOLD (84831) Antimicrobial MIHEAD (Normal) Comments: S = Susceptible; [...] mL (Abnormal) Urine Final report Culture,Comprehensive (Abnormal) 5-Mcr-415142:19 Urinalysis, Office (44967) UA - LEUKOCYTE ESTERASE Moderate (Normal) UA - NITRITE Negative (Normal) URINE UROBILINGN KEERTHI TIMED Normal mg/dL (Normal) UA - PROTEIN 300 mg/dL (Normal) UA - PH 6 (Abnormal) UA - BLOOD Hemolyzed Trace (Normal) UA - SPECIFIC GRAVITY 1.025 (Normal) UA - KETONES Negative mg/dL (Normal) UA - BILIRUBIN Negative (Normal) UA - GLUCOSE Negative (Normal) 11-Crl-510155:31 Urinalysis, Office (35292) UA - LEUKOCYTE ESTERASE Negative (Normal) UA - NITRITE Negative (Normal) URINE UROBILINGN KEERTHI TIMED Normal mg/dL (Normal) UA - PROTEIN 300 mg/dL (Normal) UA - PH 6 (Abnormal) UA - BLOOD Negative (Normal) UA - SPECIFIC GRAVITY 1.015 (Normal) UA - KETONES Negative mg/dL (Normal) UA - BILIRUBIN Negative (Normal) UA - GLUCOSE Negative (Normal) 28-Jdi-292128:47 URINE FAVIAN CULTURE-IDENTIFICATN Comments: PATIENT NOT FASTINGPERFORMED BY: RENARD [facility] Wmeuju9707 [facility] [id number] Information: SRC:ARNOLD (57959) Result 1 BETAGB (Abnormal) Comments: Beta hemolytic [...] (CLSI 2011) Urine Final report (Abnormal) Culture,Comprehensive 89-Mrc-66980:50 Urinalysis, Complete Comments: How was Urine Obtained? [facility] SPECIMENWUC [facility] [address]lmznka[address] [place], [address] MUCUS, URINE 0 SEEN {/hpf} (Normal) BACTERIA [...] Straw (Normal) :25 CBC W/Diff, Automated Comments: [facility] [address] [place], [address] Absolute Lymph 2.00 {X10_3/ul} (Normal) [...] 4.2-5.4 WBC 4.6 K/mm3 (Normal) Range: 4.4-11.0 06-Jje-87410:25 Comprehensive Metabolic Profil Comments: 'TROP' Serial specimen #1, #2, #3, or #4: 1[facility] [address]riatpmjx[address] [place], [address] GAP 7 (Normal) Range: 5-15 [...] A.D.A. criteria. :25 Partial Thromboplast Time Comments: [facility] [address] [place], [address] PTT 54.7 s (Abnormal) Range: 24.1-36.2 :25 Prothrombin Time w/INR Comments: [facility] [address] [place], [address] INR 1.0 (Normal) PROTIME 13.2 s (Normal) Range: 11.7-14.9 :25 Troponin-I Comments: 'TROP' Serial specimen #1, #2, #3, or #4: 1[facility] [address]aifgv[address] [place], [address] TROPONIN-I < 0.02 ng/mL (Normal) Comments: TROPONIN-I EXPECTED VALUES <0.05 NEGATIVE 0.06 - 0.59 AT RISK OF FL > OR = 0.60 SUGGEST FL :23 Bedside Glucose Comments: [facility] LaboratoryPoint of Atzt[address] [place] [address] BEDSIDE GLU 129 mg/dL (Abnormal) Range: 70-110 Comments: Dr Gemma FelderMANAGEMENT OF PATIENT CARE PER NURSING PROTOCOL :42 Microscopic Examination Comments: PATIENT NOT FASTINGPERFORMED BY: etaskr [facility] [id number] BY: ClicData[address] [id number] Bacteria Few (Normal) Mucus Threads Present (Normal) Cast Type Hyaline casts (Normal) Casts Present {/lpf} (Abnormal) Epithelial Cells (non renal) 0-10 {/hpf} (Normal) Range: 0 - 10 RBC >30 {/hpf} (Abnormal) Range: 0 - 2 WBC 0-5 {/hpf} (Normal) Range: 0 - 5 :42 CCP ANTIBODY (75048) Comments: PATIENT NOT FASTINGPERFORMED BY: etaskr [facility] [id number] BY: MynewMD[address] [id number] CCP Antibodies IgG/IgA <1 {units} (Normal) Range: 0-19 Comments: Negative <20 Weak positive 20 - 39 Moderate positive 40 - 59 Strong positive >59 :42 RHEUMATOID FACTOR-QUAL Comments: PATIENT NOT FASTINGPERFORMED BY: etaskr [facility] [id number] BY: ClicData[address] [id number] (74952) RA Latex Turbid. <10.0 {IU/mL} (Normal) Range: 0.0-13.9 :42 C-Reactive Protein (65106) Comments: PATIENT NOT FASTINGPERFORMED BY: [place] 5019370 [facility] [id number] BY: [address] [id number] C-Reactive Protein, Quant 2.5 mg/L (Normal) Range: 0.0-4.9 :42 SED RATE ERYTHROCYTE Comments: PATIENT NOT FASTINGPERFORMED BY: [place] 5019370 [facility] [id number] BY: [address] [id number] (80766) Sedimentation Rate-Westergren 44 mm/h (Abnormal) Range: 0-40 :42 URIC ACID BLOOD (23455) Comments: PATIENT NOT FASTINGPERFORMED BY: [place] 5019370 [facility] [id number] BY: [address] [id number] Uric Acid, Serum 8.5 mg/dL (Abnormal) Range: 2.5-7.1 Comments: Therapeutic target for gout patients: <6.0 :42 Metabolic Panel, Comments: PATIENT NOT FASTINGPERFORMED BY: LabRebecca [place] 2090970 [facility] [id number] BY: [address] [id number] Comprehensive (24273) ALT (SGPT) <5 [iU]/L (Normal) Range: 0-32 [...] MICROALBUMIN: CREATININE Comments: PATIENT NOT FASTINGPERFORMED BY: [facility] [id number] BY: MynewMD[address] [id number] RATIO (91315) AND (37316) Microalb/Creat Ratio 1390.9 {mg/g_creat} (Abnormal) Range: 0.0-30.0 Microalbumin, Urine 948.6 ug/mL (Normal) Comments: Results confirmed ondilution. Creatinine, Urine 68.2 mg/dL (Normal) :42 URINALYSIS (11757) Comments: PATIENT NOT FASTINGPERFORMED BY: ClicDataMountainside HospitalHmrsmv0018 [facility] [id number] BY: ClicData[address] [id number] Microscopic Examination See below: (Normal) Comments: Microscopic was indicated and was performed. Nitrite, Urine Negative (Normal) Urobilinogen,Semi-Qn 0.2 mg/dL (Normal) Range: 0.2-1.0 Bilirubin Negative (Normal) Occult Blood 3+ (Abnormal) Ketones Negative (Normal) Glucose Negative (Normal) Protein 3+ (Abnormal) WBC Esterase Negative (Normal) Appearance Clear (Normal) Urine-Color Yellow (Normal) pH 6.0 (Normal) Range: 5.0-7.5 Specific [place] 1.019 (Normal) Range: 1.005-1.030 10-Ird-17747:42 CBC, Platelets & Auto Comments: PATIENT NOT FASTINGPERFORMED BY: CB [facility] Yqhxmu4368 [facility] [id number] BY: BN [facility] [address] [id number] Diff (97227) Immature Grans (Abs) 0.0 {x10E3/uL} (Normal) Range: [...] Range: 3.4-10.8 :32 Rapid Strep Test, Office (54313) Rapid Strep Test, Office Negative (Normal) :28 Microscopic Examination Comments: PATIENT WAS FASTINGPERFORMED BY: [employer]70 [facility] [facility] [place] [id number] Bacteria Few (Normal) Mucus Threads Present (Normal) Epithelial Cells (non renal) 0-10 {/hpf} (Normal) Range: 0 - 10 RBC 0-2 {/hpf} (Normal) Range: 0 - 2 WBC 0-5 {/hpf} (Normal) Range: 0 - 5 :28 CALCIFIDIOL (10918) VIT D 25 Comments: PATIENT WAS FASTINGPERFORMED BY: TapBlaze6370 [facility] [id number] Vitamin D, 25-Hydroxy 42.0 ng/mL (Normal) Range: 30.0-100.0 Comments: Vitamin D deficiency has been defined by the [place] ofSouthern [place] Medical Centercine and an Endocrine Society practice guideline as alevel of serum 25-OH vitamin D less than 20 ng/mL (1,2).The Endocrine Society went on to further define vitamin Dinsufficiency as a level between 21 and 29 ng/mL (2).1. IOM ([place] of Medicine). 2010. Dietary reference intakes for calcium and D. [place]: The National Academies Press.2. Swathi MF, Alexandra [place], Judy OLMEDO, et al. Evaluation, treatment, and prevention of vitamin D deficiency: an Endocrine Society clinical practice guideline. JCEM. 2010; 96(7):1911-30. :28 TSH (36068) Comments: PATIENT WAS FASTINGPERFORMED BY: [employer] Degohg9352 [facility] Hospitalblin [place] [id number] TSH 1.360 {uIU/mL} (Normal) Range: 0.450-4.500 :28 URINALYSIS, W/ MICRO (31802) Comments: PATIENT WAS FASTINGPERFORMED BY: [employer] Lytdnn9513 [facility] [id number] Microscopic Examination See below: (Normal) Comments: Microscopic was indicated and was performed. Nitrite, Urine Negative (Normal) Urobilinogen,Semi-Qn 0.2 mg/dL (Normal) Range: 0.2-1.0 Bilirubin Negative (Normal) Occult Blood Trace (Abnormal) Ketones Negative (Normal) Glucose Negative (Normal) Protein 4+ (Abnormal) WBC Esterase Negative (Normal) Appearance Clear (Normal) Urine-Color Yellow (Normal) pH 6.0 (Normal) Range: 5.0-7.5 Specific [place] 1.019 (Normal) Range: 1.005-1.030 :28 MICROALBUMIN: CREATININE RATIO Comments: PATIENT WAS FASTINGPERFORMED BY: [employer] Zolsic0296 [facility] [id number] (34287) AND (40748) Microalb/Creat Ratio 2972.2 {mg/g_creat} (Abnormal) Range: 0.0-30.0 Microalbumin, Urine 2264.8 ug/mL (Normal) Comments: Results confirmed ondilution. Creatinine, Urine 76.2 mg/dL (Normal) :28 METABOLIC PANEL, COMPREHENSIVE Comments: PATIENT WAS FASTINGPERFORMED BY: [employer] Dyhakc2146 [facility] [id number] (65859) ALT (SGPT) <5 [iU]/L (Normal) Range: 0-32 [...] Glucose, Serum 103 mg/dL (Abnormal) Range: 65-99 2-Ihu-262029:28 LIPID PANEL (94124) Comments: PATIENT WAS FASTINGPERFORMED BY: [facility]6370 [facility] [id number] VLDL Cholesterol Luis VLDLCH mg/dL (Normal) Range: [...] Range: 100-199 :28 CBC W/AUTO DIFF WBC (61373) Comments: PATIENT WAS FASTINGPERFORMED BY: [facility] Endbeg8662 [address] [facility] [id number] Immature Grans (Abs) 0.0 {x10E3/uL} (Normal) Range: [...] (Normal) Range: 3.4-10.8 :05 HgA1C , Office (98644) HgA1C , Office 6.2 % (Normal) Range: 4.6 - 7.1 :05 Blood Glucose , Office (83080) Blood Glucose , Office 119 (Normal) :09 Basic Metabolic Profile (BMP) Comments: [facility] [address]hlow[address] [place], [place], [address] GAP 10 (Normal) Range: 5-15 CO2 26.0 [...] <126 mg/dLsuggests IMPAIRED HOMEOSTASIS per A.D.A. criteria. 33-Sdw-079581:21 Basic Metabolic Profile (BMP) Comments: [facility] Qbghvlrggp4492 [facility] [place], [place], [address] GAP 6 (Normal) Range: 5-15 CO2 28.0 [...] (Normal) Range: 4.5-5.6 Comments: Performed at: - Lab[address] [id number] Director: Hernesto Mclean PhD, Phone: [phone] 88-Unu-811869:21 Protein Electro.Ur-Random Comments: [facility] (refer to report for specific site)refer to report for address and phone number M-SPIKE,U (Normal) Comments: NOT OBSERVED GAMMA GLOB,U 6.5 % (Normal) BETA GLOB,U 9.7 % (Normal) EYEQN-4-JBQN,U 2.6 % (Normal) OKVGD-2-IQKW,U 2.8 % (Normal) ALBUMIN,UR 78.4 % (Normal) PROTEIN,UR 121.4 mg/dL (Abnormal) Range: 0.0-15.0 :21 Protein Electroph, S Comments: [facility] (refer to report for specific site)refer to report for address and phone number NOTE Comment (Normal) Comments: Protein electrophoresis scan will follow via computer,mail, or needle maker delivery. NOTE: Comment (Normal) Comments: The SPE pattern appears essentially unremarkable. Evidenceof monoclonal protein is not apparent. INTERPRETATION Comment (Normal) Comments: Protein electrophoresis scan will follow via computer,mail, or needle maker delivery. A/G RATIO 1.0 (Normal) Range: 0.7-2.0 [...] Range: 6.0-8.5 :28 CBC W/Diff, Automated Comments: [facility] [address] [place], [place], [address] Absolute Lymph 1.84 {X10_3/ul} (Normal) Range: 0.83-4.51 [...] Range: 4.4-11.0 :28 Comprehensive Metabolic Profil Comments: [facility] [address]irxiu[address] [place], [address] GAP 10 (Normal) Range: 5-15 CO2 28.0 [...] per A.D.A. criteria. :28 Hemoglobin A1c Comments: [facility] [address]vukz[address] [facility] [place], [address] HGB A1C 6.3 % (Normal) Range: 4.2-6.3 :28 Lipid Profile Comments: [facility] [address] [place], [address] VLDL Test not performed mg/dL [...] High Risk :28 Microalb:Creat Ratio,Random UR Comments: [facility] [address] [place], [place], [address] MALB:CREAT 6612.5 {mg/g_CRE} (Abnormal) MICROALBUMIN,UR 2850.0 mg/L (Normal) UR CREAT 43.10 mg/dL (Normal) :28 Thyroid Stim Hormone (TSH) Comments: [facility] [address]zhfz[address] [place], [address] TSH 2.14 {uIU/mL} (Normal) Range: 0.358-3.74 :28 Urinalysis, Complete Comments: How was Urine Obtained? [facility] [address] [place], [address] MUCUS, URINE 0 SEEN {/hpf} [...] (Prothrobim Time) Comments: PATIENT NOT FASTINGPERFORMED BY: [address] [id number] Information: [id number],2ND ORDER (81653) Prothrombin Time 14.9 {sec} (Abnormal) Range: 9.1-12.0 INR 1.4 (Abnormal) Range: 0.8-1.2 Comments: Reference interval is for non-anticoagulated patients. . Suggested INR therapeutic range for Vitamin K anta gonist therapy: Standard Dose (moderate intensity therapeutic range): 2.0 - 3.0 Higher intensity therapeutic range 2.5 - 3.5 :59 PT (Prothrobim Time) Comments: PATIENT NOT FASTINGPERFORMED BY: [place] 5019370 [facility] [id number] Information: [id number] ([id number]) Prothrombin Time 37.7 {sec} (Abnormal) Range: 9.1-12.0 INR 3.4 (Abnormal) Range: 0.8-1.2 Comments: Reference interval is for non-anticoagulated patients. . Suggested INR therapeutic range for Vitamin K anta gonist therapy: Standard Dose (moderate intensity therapeutic range): 2.0 - 3.0 Higher intensity therapeutic range 2.5 - 3.5 :08 HgA1C , Office (34241) HgA1C , Office 6.2 % (Normal) Range: 4.6 - 7.1 :08 Blood Glucose , Office (25873) Blood Glucose , Office 126 (Normal) :42 Microscopic Examination Comments: PATIENT WAS FASTINGPERFORMED BY: [place] [id number] [facility] [id number] Bacteria Few (Normal) Mucus Threads Present (Normal) Epithelial Cells (non renal) 0-10 {/hpf} (Normal) Range: 0 - 10 RBC 0-2 {/hpf} (Normal) Range: 0 - 2 WBC 0-5 {/hpf} (Normal) Range: 0 - 5 96-Ncz-846332:42 MICROALBUMIN: CREATININE RATIO Comments: PATIENT WAS FASTINGPERFORMED BY: MynewMDMclaren [facility] Region6370 [facility] [id number] (40324) AND (50236) Microalb/Creat Ratio 1877.3 {mg/g_creat} (Abnormal) Range: 0.0-30.0 Microalbumin, Urine 1118.9 ug/mL (Abnormal) Range: 0.0-17.0 Creatinine, Urine 59.6 mg/dL (Normal) Range: 15.0-278.0 36-Sww-154802:42 URINALYSIS (37607) Comments: PATIENT WAS FASTINGPERFORMED BY: ClicDataInscription House Health CenterIvsxsc7289 [facility] [id number] Microscopic Examination See below: (Normal) Comments: Microscopic was indicated and was performed. Nitrite, Urine Negative (Normal) Urobilinogen,Semi-Qn 0.2 mg/dL (Normal) Range: 0.0-1.9 Bilirubin Negative (Normal) Occult Blood Negative (Normal) Ketones Negative (Normal) Glucose Negative (Normal) Protein 2+ (Abnormal) WBC Esterase Negative (Normal) Appearance Clear (Normal) Urine-Color Yellow (Normal) pH 6.0 (Normal) Range: 5.0-7.5 Specific [place] 1.020 (Normal) Range: 1.005-1.030 40-Mwl-544463:42 TSH (55377) Comments: PATIENT WAS FASTINGPERFORMED BY: ClicDataMountainside HospitalElrfiu5385 [facility] [id number] TSH 1.590 {uIU/mL} (Normal) Range: 0.450-4.500 69-Iyu-733444:42 CBC, Platelets & Auto Comments: PATIENT WAS FASTINGPERFORMED BY: [facility]6370 [facility] [id number] Information: [id number] Diff (94247) Immature Grans (Abs) 0.0 {x10E3/uL} (Normal) Range: [...] 3.77-5.28 WBC 5.4 {x10E3/uL} (Normal) Range: 3.4-10.8 75-Btc-644949:42 Metabolic Panel, Comprehensive Comments: PATIENT WAS FASTINGPERFORMED BY: LabCoMountainside HospitalPrvvoe8447 [facility] [id number] (63977) ALT (SGPT) 3 [iU]/L (Normal) Range: 0-32 [...] Glucose, Serum 94 mg/dL (Normal) Range: 65-99 39-Jqb-736085:42 Lipid Panel (67158) Comments: PATIENT WAS FASTINGPERFORMED BY: OGSystems70 [facility]At[facility] [id number] LDL/HDL Ratio 0.7 {ratio_units} (Normal) Range: 0.0-3.2 LDL Cholesterol Calc 25 mg/dL (Normal) Range: 0-99 VLDL Cholesterol Luis 77 mg/dL (Abnormal) Range: 5-40 HDL Cholesterol 36 mg/dL (Abnormal) Comments: According to ATP-III Guidelines, HDL-C >59 mg/dL is considered anegative risk factor for CHD. Triglycerides 387 mg/dL (Abnormal) Range: 0-149 Cholesterol, Total 138 mg/dL (Normal) Range: 100-199 48-Whb-152494:42 CALCIFEDIOL (45598) Comments: PATIENT WAS FASTINGPERFORMED BY: [facility]bF[facility] [id number] Vitamin D, 25-Hydroxy 34.5 ng/mL (Normal) Range: 30.0-100.0 Comments: Vitamin D deficiency has been defined by the [place] of[place]icine and an Endocrine Society practice guideline as alevel of serum 25-OH vitamin D less than 20 ng/mL (1,2).The Endocrine Society went on to further define vitamin Dinsufficiency as a level between 21 and 29 ng/mL (2).1. IOM ([place] of Medicine). 2010. Dietary reference intakes for calcium and D. [place]: The National Academies Press.2. Swathi MF, Alexandra MCGILL, Judy OLMEDO, et al. Evaluation, treatment, and prevention of vitamin D deficiency: an Endocrine Society clinical practice guideline. JCEM. 2010; 96(7):1911-30. 71-Wtl-458078:08 PT (Prothrobim Time) Comments: PATIENT NOT FASTINGPERFORMED BY: MynewMDCo Yftyoa3383 ITM SoftwareSelect Specialty Hospital - Durhamin [place] [id number] Information: [id number] (95332) Prothrombin Time 19.4 {sec} (Abnormal) Range: 9.1-12.0 INR 1.9 (Abnormal) Range: 0.8-1.2 Comments: Reference interval is for non-anticoagulated patients. . Suggested INR therapeutic range for Vitamin K anta gonist therapy: Standard Dose (moderate intensity therapeutic range): 2.0 - 3.0 Higher intensity therapeutic range 2.5 - 3.5 95-Ets-478559:19 Microscopic Examination Comments: PATIENT NOT FASTINGPERFORMED BY: [facility] Roieqd4409 [address] [facility]in [place] [id number] Bacteria Few (Normal) Mucus Threads Present (Normal) Epithelial Cells (non renal) 0-10 {/hpf} (Normal) Range: 0 - 10 RBC >30 {/hpf} (Abnormal) Range: 0 - 3 WBC 0-5 {/hpf} (Normal) Range: 0 - 5 19-Znx-562529:26 TSH (42877) Comments: PATIENT NOT FASTINGPERFORMED BY: [facility] Llpeva4789 [address] [facility] SimulationDublin [place] [id number] TSH 1.050 {uIU/mL} (Normal) Range: 0.450-4.500 70-Tev-759582:26 URINALYSIS, W/ MICRO (98445) Comments: PATIENT NOT FASTINGPERFORMED BY: [facility] Zdaaon9802 [address] [facility] HospitalDublin [place] [id number] Microscopic Examination See below: (Normal) Nitrite, Urine Negative (Normal) Urobilinogen,Semi-Qn 0.2 mg/dL (Normal) Range: 0.0-1.9 Bilirubin Negative (Normal) Occult Blood 3+ (Abnormal) Ketones Negative (Normal) Glucose Negative (Normal) Protein 1+ (Abnormal) WBC Esterase Negative (Normal) Appearance Clear (Normal) Urine-Color Yellow (Normal) pH 5.5 (Normal) Range: 5.0-7.5 Specific [place] 1.018 (Normal) Range: 1.005-1.030 78-Grj-155818:26 MICROALBUMIN: CREATININE RATIO Comments: PATIENT NOT FASTINGPERFORMED BY: [facility] Segffo6263 [address] [facility] [id number] (84658) AND (29327) Microalb/Creat Ratio 524.7 {mg/g_creat} (Abnormal) Range: 0.0-30.0 Microalbumin, Urine 342.1 ug/mL (Abnormal) Range: 0.0-17.0 Creatinine, Urine 65.2 mg/dL (Normal) Range: 15.0-278.0 61-Mrt-001326:26 METABOLIC PANEL, COMPREHENSIVE Comments: PATIENT NOT FASTINGPERFORMED BY: [facility] Rmkjxw0871 [address] [facility] [id number] (39209) ALT (SGPT) <5 [iU]/L (Normal) Range: 0-32 [...] Glucose, Serum 74 mg/dL (Normal) Range: 65-99 62-Ado-754476:26 LIPID PANEL (61169) Comments: PATIENT NOT FASTINGPERFORMED BY: ClicDataInscription House Health CenterIvfnhg5961 [facility] [id number] LDL/HDL Ratio 1.1 {ratio_units} (Normal) Range: 0.0-3.2 LDL Cholesterol Calc 46 mg/dL (Normal) Range: 0-99 VLDL Cholesterol Luis 72 mg/dL (Abnormal) Range: 5-40 HDL Cholesterol 41 mg/dL (Normal) Comments: According to ATP-III Guidelines, HDL-C >59 mg/dL is considered anegative risk factor for CHD. Triglycerides 362 mg/dL (Abnormal) Range: 0-149 Cholesterol, Total 159 mg/dL (Normal) Range: 100-199 41-Pqi-975384:26 CBC WITH MANUAL DIFF Comments: PATIENT NOT FASTINGPERFORMED BY: ClicDataMountainside HospitalRjcynn2246 [facility] [id number] Information: [id number] (81079) Immature Grans (Abs) 0.0 {x10E3/uL} (Normal) Range: [...] (Normal) Range: 3.4-10.8 :26 Vitamin D Hydroxy (03912) Comments: PATIENT NOT FASTINGPERFORMED BY: LabCoMountainside HospitalXgazzo8424 [facility] [id number] Vitamin D, 25-Hydroxy 37.9 ng/mL (Normal) Range: 30.0-100.0 Comments: Vitamin D deficiency has been defined by the [place] ofSouthern [place] Medical Centercine and an Endocrine Society practice guideline as alevel of serum 25-OH vitamin D less than 20 ng/mL (1,2).The Endocrine Society went on to further define vitamin Dinsufficiency as a level between 21 and 29 ng/mL (2).1. IOM ([place] of Medicine). 2010. Dietary reference intakes for calcium and D. [place]: The National Academies Press.2. Swathi MF, Alexandra MCGILL, Judy OLMEDO, et al. Evaluation, treatment, and prevention of vitamin D deficiency: an Endocrine Society clinical practice guideline. JCEM. 2010; 96(7):1911-30. :01 HgA1C , Office (78499) HgA1C , Office 5.9 % (Normal) Range: 4.6 - 7.1 :01 Blood Glucose , Office (41115) Blood Glucose , Office 92 (Normal) :07 HgA1C , Office (80225) HgA1C , Office 5.6 % (Normal) Range: 4.6 - 7.1 :07 Blood Glucose , Office (26382) Blood Glucose , Office 79 (Normal) :41 Vitamin D Hydroxy (48533) Comments: PATIENT WAS FASTINGPERFORMED BY: ClicDataMountainside HospitalHnwxdi6068 [facility] [id number] Vitamin D, 25-Hydroxy 50.7 ng/mL (Normal) Range: 30.0-100.0 Comments: Vitamin D deficiency has been defined by the [place] ofMedicine and an Endocrine Society practice guideline as alevel of serum 25-OH vitamin D less than 20 ng/mL (1,2).The Endocrine Society went on to further define vitamin Dinsufficiency as a level between 21 and 29 ng/mL (2).1. IOM ([place] of Medicine). 2010. Dietary reference intakes for calcium and D. [place]: The National Academies Press.2. Swathi MF, Alexandra [place], Judy OLMEDO, et al. Evaluation, treatment, and prevention of vitamin D deficiency: an Endocrine Society clinical practice guideline. JCEM. 2010; 96(7):1911-30. :41 LIPID PANEL (67782) Comments: PATIENT WAS FASTINGPERFORMED BY: LabMclaren [facility] Region6370 [facility] [id number] Information: [id number] LDL Cholesterol Calc 81 mg/dL (Normal) Range: 0-99 LDL/HDL Ratio 1.9 {ratio_units} (Normal) Range: 0.0-3.2 HDL Cholesterol 42 mg/dL (Normal) Comments: According to ATP-III Guidelines, HDL-C >59 mg/dL is considered anegative risk factor for CHD. Triglycerides 210 mg/dL (Abnormal) Range: 0-149 VLDL Cholesterol Luis 42 mg/dL (Abnormal) Range: 5-40 Cholesterol, Total 165 mg/dL (Normal) Range: 100-199 34-Obz-925501:47 BILAT SCRN DIGITAL & CAD Radiology Report [...] Kebede M.D.July 29, 2012 at 12:51:04 PM [phone] Signed GP/GP If you are the referring physician and would like to consult andry dupree theradiologist who provided this interpretation, please contact Dana Lopez at [phone]. If this radiologist is unavailable, youwill be directed to another radiologist to assist. If yo u are a patient with a question regarding this report, pleasecontactyour referring physician directly. Professional Interpretation Provided By: [email or web address], Phone , These d ocuments contain legally [...] 07/29/12 1256 Sign by: Paresh Kebede MD 74-Qex-626757:38 HgA1C , Office (51870) HgA1C , Office 5.7 % (Normal) Range: 4.6 - 7.1 14-Zcq-747149:38 Blood Glucose , Office (96573) Blood Glucose , Office 91 (Normal) 37-Ccr-550684:06 LIPID PANEL (71625) Comments: PATIENT WAS FASTINGPERFORMED BY: ClicDataMountainside HospitalCvxsfr7267 [facility] [id number] Information: [id number] LDL/HDL Ratio 1.5 {ratio_units} (Normal) Range: 0.0-3.2 [...] (Prothrobim Time) Comments: PATIENT NOT FASTINGPERFORMED BY: LabCoMountainside HospitalRalogq2522 [facility] [id number] Information: [id number],2ND ORDER NO DRAW F EE (25492) Prothrombin Time 21.7 {sec} (Abnormal) Range: 9.1-12.0 INR 2.1 (Abnormal) Range: 0.8-1.2 Comments: Reference interval is for non-anticoagulated patients. . Suggested INR therapeutic range for Vitamin K anta gonist therapy: Standard Dose (moderate intensity therapeutic range): 2.0 - 3.0 Higher intensity therapeutic range 2.5 - 3.5 00-Rhl-536480:06 PT (Prothrobim Time) Comments: PATIENT NOT FASTINGPERFORMED BY: RENARD [facility] Xtsrnl3246 [place] [id number] Information: [id number],2ND ORDER NO DRAW F EE (67435) Prothrombin Time 34.8 {sec} (Abnormal) Range: 9.1-12.0 INR 3.4 (Abnormal) Range: 0.8-1.2 Comments: Reference interval is for non-anticoagulated patients. . Suggested INR therapeutic range for Vitamin K anta gonist therapy: Standard Dose (moderate intensity therapeutic range): 2.0 - 3.0 Higher intensity therapeutic range 2.5 - 3.5 :51 Urinalysis, Office (58874) UA - BILIRUBIN Negative (Normal) UA - [...] (Abnormal) Range: 11.9-14.4 :01 HgA1C , Office (92067) HgA1C , Office 6.0 % (Normal) Range: 4.6 - 7.1 :01 Blood Glucose , Office (56391) Blood Glucose , Office 90 (Normal) :14 [...] D deficiency has been defined by the [place] of[place]icine and an Endocrine Society practice guideline as alevel of serum 25-OH vitamin D less than 20 ng/mL (1,2).The Endocrine Society went on to further define vitamin Dinsufficiency as a level between 21 and 29 ng/mL (2).1. IOM ([place] of Medicine). 2010. Dietary reference intakes for calcium and D. [place]: The National Academies Press.2. Swathi MF, Alexandra [place], Judy OLMEDO, et al. Evaluation, treatment, and prevention of vitamin D deficiency: an Endocrine Society clinical practice guideline. JCEM. 2010; 96(7): 1911-30.Performed at: [facility] [address] [id number] Director: Gloria Patton MD, Phone: [phone] 13-Mlv-272478:13 PROT.[id number] NOTE Comment (Normal) Comments: Protein electrophoresis scan will follow via computer,mail, or needle maker delivery.Performed at: [facility] [address] [place] [address] [id number] Director: Gloria Patton MD, Phone: [phone] M-SPIKE,U SeeNote % (Normal) Comments: Result: Not Observed GAMMA GLOB,U 5.6 % (Normal) BETA GLOB,U 8.0 % (Normal) HDSUU-0-PAPP,U 2.8 % (Normal) ROKNU-2-DOZT,U 1.4 % (Normal) ALBUMIN,UR 82.2 % (Normal) PROTEIN,UR 91.6 mg/dL (Abnormal) Range: 0.0-15.0 :1 PTH,Intact 19 pg/mL (Normal) Range: 14-72 3 :13 SPE [id number] INTERPRETATION Comment (Normal) Comments: The SPE pattern reflects a polyclonal increase in gammaglobulin due to numerous clones of plasma cells producingheterogeneous antibody in response to some form ofantigenic stimulus. Hypergammaglob-ulin emia is found in awide variety of infectious, non-infectious, and autoimmunedisease states. Evidence of monoclonal protein is notapparent.Protein electrophoresis scan will follow via computer,mail, or needle maker delivery. A/G RATIO 1.0 (Normal) Range: 0.7-2.0 [...] 4.2-5.4 WBC 4.3 K/mm3 (Abnormal) Range: 4.4-11.0 7-Lge-597039:06 COMP METABOLIC GAP 7 (Normal) Range: 5-15 [...] 7-18 GLU 88 mg/dL (Normal) Range: 70-110 7-Omv-505919:06 COMPLETE UA Comments: CRITICAL VALUE REPEATED AND VERIFIED. CALLED TO MARIETTA09/07/11 1153 AARON BHATIA.RESULTS READ BACK BY ELIZABETH [...] NEGATIVE CLARITY CLEAR (Normal) COLOR YELLOW (Normal) 8-Bgr-446837:06 LIPID VLDL 59 mg/dL (Abnormal) Range: 5-40 [...] 200-240 mg/dL Borderline >240 mg/dL High Risk 4-Coy-504365:06 MICROALB:CRE UR MALB:CREAT 947.9 {mg/g_CRE} (Abnormal) MICROALBUMIN,UR 583.0 mg/L (Normal) UR CREAT 61.5 mg/dL (Normal) 2-Lji-305552:06 TSH 0.75 {uIU/mL} (Normal) Range: 0.358-3.74 :06 VIT D,25 78642 27.4 ng/mL (Abnormal) Range: 30.0-100.0 Comments: Vitamin D deficiency has been defined by the [place] ofMedicine and an Endocrine Society practice guideline as alevel of serum 25-OH vitamin D less than 20 ng/mL (1,2).The Endocrine Society went on to further define vitamin Dinsufficiency as a level between 21 and 29 ng/mL (2).1. IOM ([place] of Medicine). 2011. Dietary reference intakes for calcium and D. [place]: The National AcademKochzauber Press.2. Swathi MF, Alexandra NC, Judy OLMEDO, et al. Evaluation, treatment, and prevention of vitamin D deficiency: an Endocrine Society clinical practice guideline. JCEM. 2010; 96(7): 1911-30.Performed at: [address] [id number] Director: Gloria Patton MD, Phone: [phone] 23-Gee-067227:13 HgA1C , Office (08748) HgA1C , Office 6.0 % (Normal) Range: 4.6 - 7.1 24-Ldr-239741:13 Blood Glucose , Office (17159) Blood Glucose , Office 108 (Normal) 87-Mbo-81288:27 FAVIAN CULTURE-OTHER (27175) Comments: PATIENT NOT FASTINGPERFORMED BY: [address] [id number] Information: SRC:THRT ADD [id number] Result 1 RRF (Normal) Comments: Routine respiratory linette Upper Respiratory Culture Final report (Normal) 14-Yai-24785:50 Rapid Strep Test, Office (22295) Rapid Strep Test, Office Negative (Normal) 51-Obk-221226:39 Microscopic Examination Comments: PATIENT WAS FASTINGPERFORMED BY: [address] [place] [id number] Bacteria Few (Normal) Mucus Threads Present (Normal) Epithelial Cells (non renal) 0-10 {/hpf} (Normal) Range: 0 - 10 RBC None seen {/hpf} (Normal) Range: 0 - 3 WBC 0-5 {/hpf} (Normal) Range: 0 - 5 :35 PT (PROTHROMBIN TIME) Comments: PATIENT NOT FASTINGPERFORMED BY: [facility]6370 [facility] [id number] Information: [id number], 2ND ORDER NO DRAW FEE (98019) INR 4.8 (Abnormal) Range: 0.8-1.2 Comments: Client Requested Flag Reference interval is for non- anticoagulated patients. . Suggested INR therapeutic ra nge for Vitamin K antagonist therapy: Standard Dose (moderate intensity therapeutic range): 2.0 - 3.0 Higher intensity therapeutic range 2.5 - 3.5 Prothrombin Time 51.3 {sec} (Abnormal) Range: 8.7-11.5 :36 CALCIFIDIOL (23490) VIT D Comments: PATIENT NOT FASTINGPERFORMED BY: [facility]6370 [facility] [id number] Information: [id number],2ND ODER NO DRAW FE E 25 Vitamin D, 25-Hydroxy 29.1 ng/mL (Abnormal) Range: 32.0-100.0 Comments: Recent studies consider the lower limit of 32.0 ng/mL to be athreshold for optimal health.Helder NIEVES. J Nutr. 2004;135(2):317-22. :52 Blood Glucose , Office (56950) Blood Glucose , Office 97 (Normal) :52 HgA1C , Office (62887) HgA1C , Office 5.7 % (Normal) Range: 4.6 - 7.1 :39 TSH (74563) Comments: PATIENT WAS FASTINGPERFORMED BY: [facility]6370 [facility] [id number] TSH 0.741 {uIU/mL} (Normal) Range: 0.450-4.500 :39 URINALYSIS, W/ MICRO (85664) Comments: PATIENT WAS FASTINGPERFORMED BY: [employer] Nttbzd8393 [facility] [id number] Microscopic Examination See below: (Normal) Bilirubin Negative (Normal) Glucose Negative (Normal) Ketones Negative (Normal) Nitrite, Urine Negative (Normal) Occult Blood Negative (Normal) Protein 1+ (Abnormal) Urobilinogen,Semi-Qn 0.2 mg/dL (Normal) Range: 0.0-1.9 WBC Esterase Negative (Normal) Appearance Clear (Normal) pH 7.0 (Normal) Range: 5.0-7.5 Urine-Color Yellow (Normal) Specific [place] 1.018 (Normal) Range: 1.005-1.030 :39 MICROALBUMIN: CREATININE RATIO Comments: PATIENT WAS FASTINGPERFORMED BY: [facility] Bqjsph3525 [facility] [id number] (66480) AND (62948) Microalb/Creat Ratio 273.8 {mg/g_creat} (Abnormal) Range: 0.0-30.0 Creatinine, Urine 74.9 mg/dL (Normal) Range: 15.0-278.0 Microalbumin, Urine 205.1 ug/mL (Abnormal) Range: 0.0-17.0 :39 METABOLIC PANEL, COMPREHENSIVE Comments: PATIENT WAS FASTINGPERFORMED BY: ClicDataMountainside HospitalUugzdh4476 [facility] [id number] (24161) A/G Ratio 1.3 (Normal) Range: 1.1-2.5 Alkaline [...] Glucose, Serum 88 mg/dL (Normal) Range: 65-99 33-Jqx-385470:39 LIPID PANEL (34803) Comments: PATIENT WAS FASTINGPERFORMED BY: [employer] TechnologiesCoDazzling Beauty GroupFreeman Health System [id number] LDL Cholesterol Calc 78 mg/dL (Normal) Range: 0-99 LDL/HDL Ratio 1.9 {ratio_units} (Normal) Range: 0.0-3.2 VLDL Cholesterol Luis 52 mg/dL (Abnormal) Range: 5-40 HDL Cholesterol 41 mg/dL (Normal) Comments: According to ATP-III Guidelines, HDL-C >59 mg/dL is considered anegative risk factor for CHD. Triglycerides 259 mg/dL (Abnormal) Range: 0-149 Cholesterol, Total 171 mg/dL (Normal) Range: 100-199 01-Mym-570490:39 CBC WITH MANUAL DIFF Comments: PATIENT WAS FASTINGPERFORMED BY: [employer]s70 [facility] [id number] Information: [id number] (24672) Immature Grans (Abs) 0.0 {x10E3/uL} Range: 0.0-0.1 [...] Plasma 23.2 pg/mL (Normal) Comments: PERFORMED BY: [facility]6370 [facility] [id number] 3:06 Range: 7.2-63.3 Comments: ACTH reference interval for samples collected between 7 and 10 AM. 6-Ikg-776606:06 FSH, Serum Comments: PERFORMED BY: [facility] [place] [address] [id number] FSH 33.2 m[iU]/mL (Normal) Comments: Follicular phase 3.5 - 12.5 Ovulation phase 4.7 - 21.5 Luteal phase 1.7 - 7.7 Postmenopausal 25.8 - 134.8 :06 IGF-1 Comments: PERFORMED BY: [place] 5019370 [facility] [id number] Insulin-Like Growth Factor I 151 ng/mL (Normal) Range: 81-225 :06 Luteinizing Hormone(LH), S Comments: PERFORMED BY: [address] [id number] LH 23.4 m[iU]/mL (Normal) Comments: Follicular phase 2.4 - 12.6 Ovulation phase 14.0 - 95.6 Luteal phase 1.0 - 11.4 Postmenopausal 7.7 - 58.5 :06 Prolactin 3.7 ng/mL (Abnormal) Comments: PERFORMED BY: [facility]6370 [facility] [id number] Range: 4.8-23.3 :06 Prothrombin Time (PT) Comments: PERFORMED BY: [place] 5019370 [facility] [id number] Prothrombin Time 24.1 {sec} (Abnormal) Range: 8.7-11.5 INR 2.3 (Abnormal) Range: 0.8-1.2 Comments: Reference interval is for non-anticoagulated patients. . Suggested INR therapeutic range for Vitamin K anta gonist therapy: Standard Dose (moderate intensity therapeutic range): 2.0 - 3.0 Higher intensity therapeutic range 2.5 - 3.5 : TSH 0.865 {uIU/mL} Comments: PERFORMED BY: [address] [id number] 06 (Normal) Range: 0.450-4.500 :56 BILAT SCRN [...] and bila teralhipswer e obtained using a [employer] scanner.. COMPARISON:Comparison is made with prior study [...] 10/29/10 1037 Sign by: ___ Paresh Kebede 82-Zmb-703211:03 FECAL OCCULT HGB ASSAY- tubes sent home (96246) FECAL OCCULT HGB ASSAY, QUAL, 1-3 SIMULTANEOU negative (Normal) 68-Zxx-831809:59 Microscopic Examination Comments: PATIENT NOT FASTINGPERFORMED BY: maniaTV6370 Granados91 WirelessAt[facility] [id number] Bacteria None seen (Normal) Mucus Threads Present (Normal) Cast Type Hyaline casts (Normal) Casts Present {/lpf} (Abnormal) Epithelial Cells (non renal) 0-10 {/hpf} (Normal) Range: 0 - 10 RBC 0-3 {/hpf} (Normal) Range: 0 - 3 WBC 0-5 {/hpf} (Normal) Range: 0 - 5 75-Arp-179958:57 Vitamin D Hydroxy Comments: PATIENT NOT FASTINGPERFORMED BY: maniaTV6370 CoravinAtrium Health Providence [id number] Information: [id number] (61818) Vitamin D, 25-Hydroxy 32.6 ng/mL (Normal) Range: 32.0-100.0 Comments: Recent studies consider the lower limit of 32.0 ng/mL to be athreshold for optimal health.Helder NIEVES. J Nutr. 2004;135(2):317-22. 74-Haw-947472:59 URINALYSIS, W/ MICRO Comments: PATIENT NOT FASTINGPERFORMED BY: Paired HealthMountainside HospitalGqfxsm9617 [facility] [id number] Information: SRC: [id number] (72330) Microscopic Examination See below: (Normal) Nitrite, Urine Negative (Normal) Bilirubin Negative (Normal) Glucose Negative (Normal) Ketones Negative (Normal) Occult Blood Negative (Normal) Protein 1+ (Abnormal) Urobilinogen,Semi-Qn 0.2 mg/dL (Normal) Range: 0.0-1.9 WBC Esterase Negative (Normal) Appearance Clear (Normal) Urine-Color Yellow (Normal) pH 6.5 (Normal) Range: 5.0-7.5 Specific [place] 1.017 (Normal) Range: 1.005-1.030 :59 URINE FAVIAN CULTURE-KEERTHI COL Comments: PATIENT NOT FASTINGPERFORMED BY: [employer] LabCoLant[employer] Kxljfe1815 [facility] [id number] COUNT (69696) Result 1 MUG (Normal) Comments: Mixed urogenital flora10,000-25,000 colony forming units per mL Urine Final report (Normal) Culture,Comprehensive :53 HgA1C , Office (06525) HgA1C , Office 5.5 % (Normal) Range: 4.6 - 7.1 :53 Blood Glucose , Office (27418) Blood Glucose , Office 99 (Normal) :37 [...] (Normal) PROTIME 36.2 s (Abnormal) Range: 9.1-11.7 90-Foh-214569:59 URINE FAVIAN CULTURE-KEERTHI COL Comments: PATIENT NOT FASTINGPERFORMED BY: CB [facility] Pdnkki9031 [facility] [id number] Information: SRC:UR [id number] COUNT (34501) Result 1 NG36 (Normal) Comments: No growth in 36 - 48 hours. Urine Culture,Comprehensive Final report (Normal) :44 Urinalysis, Office (48697) UA - BILIRUBIN Negative (Normal) UA - BLOOD Non Hemolyzed Trace (Normal) UA - GLUCOSE Negative (Normal) UA - KETONES Negative mg/dL (Normal) UA - LEUKOCYTE ESTERASE Small (Normal) UA - NITRITE Negative (Normal) UA - PH 8.0 (Normal) UA - PROTEIN 30 mg/dL (Normal) UA - SPECIFIC GRAVITY 1.015 (Normal) URINE UROBILINGN KEERTHI TIMED Normal mg/dL (Normal) 00-Hyf-36898:00 MRA HEAD WITHOUT CONTRAST Radiology Report See Note (Normal) Comments: CLINICAL:Gait abnormality MRA OF THE BRAIN TECHNIQUE:3-D aqwe-so-ldvzig (TOF) imaging was performed COMPARISON:MR of the [...] There is origi n of the right ACCOUNT EXECUTIVE KEY ACCOUNTS. The left posteriorcommunicatingartery is prominent, of similar caliber to the P1 segment of the leftPCA. Basilar artery is diminutive in caliber, likely on a developmental basisgive n the right ACCOUNT EXECUTIVE KEY ACCOUNTS and prominence of the left posteriorcommunicating artery. [...] vessel occlusion or hemodynamically significantstenosis. IMPRESSION:Essentially normal [place] without a demonstrated aneurysm orhemodynamically significant st enosis. Diffusely diminutive basilararterylikely developmental in nature. Focal narrowing of the mid basilararteryon the MIP images is thought likely artifactual upon review of thesourceMRA images. Dictated on 07/18/101550 by Mingo IsabelTranscribed on 07/18/101550 by EUGENIE THORPESign by Mingo Isabel on 07/19/10 2224 Sign by: ____ Mingo Isabel 53-Huv-435675:23 BRAIN W/W/O CONTRAST Radiology Report See Note (Normal) Comments: Exam Number: [id number] LINICAL:60 year old female with unsteady gait, [...] Comments: PATIENT NOT FASTINGPERFORMED BY: RENARD [facility] [address] [place] [place] [id number] Information: [id number] (06487) Prothrombin Time 20.6 {sec} (Abnormal) Range: 8.7-11.5 INR 1.9 (Abnormal) Range: 0.8-1.2 Comments: Reference interval is for non-anticoagulated patients. . Suggested INR therapeutic range for Vitamin K anta gonist therapy: Standard Dose (moderate intensity therapeutic range): 2.0 - 3.0 Higher intensity therapeutic range 2.5 - 3.5 :15 HgA1C , Office (50437) Comments: done HgA1C , Office 5.8 % (Normal) Range: 4.6 - 7.1 :15 Blood Glucose , Office (36609) Comments: done Blood Glucose , Office 118 (Normal) :05 HgA1C , Office (79780) HgA1C , Office 6.1 % (Normal) Range: 4.6 - 7.1 :05 Blood Glucose , Office (75004) Blood Glucose , Office 89 (Normal) :24 [...] DIABETES RISK MARKERS<--Insulin Sensitive Insulin Resistant-->Percentile in [facility] PopulationLarge VLDL-P Low 25th 50th 75th High<0.9 [...] {uIU/mL} (Normal) Range: 0.358-3.74 :24 VIT D,25 62188 39.9 ng/mL (Normal) Range: 32.0-100.0 Comments: Recent studies consider the lower limit of 32.0 ng/mL to kizzy threshold for optimal health.Helder NIEVES. J Nutr. 2004;135(2):317-22.Performed at: [facility] [address] [place] [id number] Director: Tony Steele PhD, Phone: [phone] at: [facility] [id number] Director: Gloria Patton MD, Phone: [phone] HgA1C , Office (86386) Comments: done km HgA1C , Office 5.9 % (Normal) Range: 4.6 - 7.1 :48 Blood Glucose , Office (20061) Comments: done km Blood Glucose , Office 106 (Normal) :54 PRO TIME INR 3.7 (Abnormal) Comments: RESULTS CALLED TO KRISTIAN AT DR WHITMAN'S OOMXYP03/21/10 MORENITA LEACH.REPORT READ BACK BY SAME . [...] (Normal) PROTIME 13.0 s (Abnormal) Range: 9.1-11.7 8-Jmp-763765:45 CBC HCT 37.0 % (Normal) Range: 37-47 [...] SCREEN GEL POSITIVE (Abnormal) Comments: SENT TO [employer] ON 09/05/09 PM SHIFT SCREEN CELL I 2+ (Abnormal) SCREEN CELL II 2+ (Abnormal) SCREEN CELL III 2+ (Abnormal) 2-Fgj-093897:2 ANTIBODY PANEL WARM AUTOANTIBODY Comments: SURGERY? N 0 (Normal) Comments: Reactions suggestive of a warm autoantibody at [facility].Autologous adsorption of the patient's plasma with [...] Report See Note (Normal) Comments: Exam Number: [id number] Procedure completed. Please see MEDICAL RECORDS reports in PCI -OP - OP NOTELET - LETTER. Reported By: PAOLA SOSA M.D. :10 PRO TIME INR 1.5 (Normal) PROTIME 15.8 s (Abnormal) Range: 9.1-11.7 16-Bva-637936:56 MYOCARD PERF SPECT REST/STRESS Radiology Report See Note (Normal) Comments: Exam Number: [id number] STRESS CARDIOLITE STUDY HISTORYThis is a 59-year-old [...] the patient was injected with 33 mCi qnHd09u Cardiolite and stress SPECT images were acquired [...] 1300; Secondarygoal: Small LDL-P < 527Performed At: G[address]ZsssVwcac[address] [place], [place] [id number] LARGE HDL-P < 0.7 umol/L (Abnormal) LARGE [...] 1599High 1600 - 2000Very high > 2000. 28-Frr-629590:05 HgA1C , Office (52398) Comments: done km HgA1C , Office 7.3 % (Abnormal) Range: 4.6 - 7.1 28-Ays-283098:05 Blood Glucose , Office (39738) Comments: done km Blood Glucose , Office 215 (Normal) 51-Ocd-138798:59 PT (Prothrobim Time) (20067) Comments: pt/inr; PATIENT WAS FASTINGPERFORMED BY: [facility] [address] [facility] [id number] INR 3.5 (Abnormal) Range: 0.8-1.2 Comments: Reference interval is for non-anticoagulated patients. . Suggested INR therapeutic range for Vitamin K anta gonist therapy: Standard Dose (moderate intensity therapeutic range): 2.0 - 3.0 Higher intensity therapeutic range 2.5 - 3.5 Prothrombin Time 34.1 {sec} (Abnormal) Range: 8.7-11.5 :59 TSH (26002) Comments: PATIENT WAS FASTINGPERFORMED BY: [facility] Fkojvn1370 [facility] [id number] TSH 0.934 {uIU/mL} (Normal) Range: 0.450-4.500 :59 Vitamin D Hydroxy (09999) Comments: PATIENT WAS FASTINGPERFORMED BY: [facility] Voearn[address]74 [facility] [id number] Vitamin D, 25-Hydroxy 33.2 ng/mL (Normal) Range: 32.0-100.0 Comments: Recent studies consider the lower limit of 32.0 ng/mL to be athreshold for optimal health.Helder NIEVES. J Nutr. 2004;135(2):317-22. :59 LIPID PANEL (84059) Comments: PATIENT WAS FASTINGClinical Information: [id number] PERFORMED BY: [facility] S[address]nrn8728 [facility] [id number] Cholesterol, Total 171 mg/dL (Normal) Range: 100-199 HDL Cholesterol 35 mg/dL (Abnormal) Comments: According to ATP-III Guidelines, HDL-C >59 mg/dL is considered anegative risk factor for CHD. LDL Cholesterol Calc 58 mg/dL (Normal) Range: 0-99 LDL/HDL Ratio 1.7 {ratio_units} (Normal) Range: 0.0-3.2 Triglycerides 391 mg/dL (Abnormal) Range: 0-149 VLDL Cholesterol Luis 78 mg/dL (Abnormal) Range: 5-40 :07 Glucose, PP/2 Hour (93059) Comments: PATIENT NOT FASTINGClinical Information: [id number],[id number] 75G DRAWN@1 05PM PERFORMED BY: [facility] [address] [facility] [id number] Glucose, Two-Hour Postprandial 220 mg/dL (Abnormal) Range: 65-139 10-Oeu-056563:46 BUN 14 mg/dL (Normal) Range: 7-18 18-Mpz-681849:46 SERUM CRE & GFR CREAT,SERUM 0.6 mg/dL (Normal) Range: 0.6-1.0 EST GFR 110 mL/min (Normal) EST GFR - AA 133 mL/min (Normal) 46-Ixm-541413:36 CHEST WITH CONTRAST Radiology Report See Note (Normal) Comments: Exam Number: [id number] CLINICAL:Wheezing and shortness of breath. CT CHEST [...] copy of this report has been sent [phone].Clinical Information: CC:[id number] PERFORMED BY: [facility] [facility] [id number] Baso (Absolute) 0.0 {x10E3/uL} (Normal) Range: 0.0-0.2 [...] copy of this report has been sent [phone].PERFORMED BY: [facility] [facility] [id number] A/G Ratio 1.2 (Normal) Range: 1.1-2.5 Albumin, [...] copy of this report has been sent [phone].PERFORMED BY: [facility] [facility] [id number] INR 3.4 (Abnormal) Range: 0.8-1.2 Comments: Reference [...] s (Abnormal) Range: 9.1-11.7 :30 VIT D,25 71989 20.1 ng/mL (Abnormal) Comments: DR. DAFNE WALDRON PT. DR. DOMINIK WALDRON CBCD, LIVER, VITD, GGTP,CK. Range: 32.0-100.0 Comments: Recent studies consider the lower limit of 32.0 ng/mL to kizzy threshold for optimal health.Helder NIEVES. J Nutr. 2004;135(2):317-22.Performed At: [facility] [place], [place] [id number] :32 PRO TIME INR 3.2 (Normal) PROTIME 37.7 s (Abnormal) Range: 9.1-11.7 :32 PT/INR, Office (40236) INR 3.5 (Normal) :38 PT/INR, Office (11263) Comments: done BC INR 3.9 (Normal) PT (PROTHROMBIN TIME) INR 3.9 s (Normal) Range: 11.5-13.5 :51 PT/INR, Office (11824) INR 3.4 (Normal) PT (PROTHROMBIN TIME) INR-3.4 s (Normal) Range: 11.5-13.5 :07 PT/INR, Office (96028) INR 2.9 (Normal) PT (PROTHROMBIN TIME) INR-2.9 s (Normal) Range: 11.5-13.5 :56 PRO TIME INR 8.6 (Abnormal) PROTIME 87.1 s (Abnormal) Range: 10.6-13.2 :50 PT/INR, Office (65414) INR 2.5 (Normal) :30 Urinalysis, Office (79165) UA - BILIRUBIN Negative (Normal) UA - BLOOD Non Hemolyzed Moderate (Normal) UA - GLUCOSE Negative (Normal) UA - KETONES Negative mg/dL (Normal) UA - LEUKOCYTE ESTERASE Trace (Normal) UA - NITRITE Negative (Normal) UA - PH 7.0 (Normal) UA - PROTEIN 30 mg/dL (Normal) UA - SPECIFIC GRAVITY 1.010 (Normal) URINE UROBILINGN KEERTHI TIMED Normal mg/dL (Normal) 67-Vwj-64444:38 SED RATE ERYTHROCYTE (28200) Comments: PATIENT NOT FASTINGClinical Information: ADD DRAW FEE 201014 ADD J 99783 PERFORMED BY: [facility]kmozo9183 [facility] [id number] Sedimentation Rate-Westergren 57 mm/h (Abnormal) Range: 0-30 16-Gqk-158910:58 BILAT SCRN DIGITAL & CAD Radiology Report See Note (Normal) Comments: Exam Number: [id number] DIGITAL SCREENING MAMMOGRAMS WITH CAD COMPARISON STUDIESSept2004 [...] The mammogramswere also examined with computer-aided detection software(Pin-Digital, SwiftStack.). Reported By: WHITLEY CONTE M.D. 18-Fxi-606208:57 DEXA BONE DENSITY STUDY (HP) Radiology Report See Note (Normal) Comments: Exam Number: [id number] DEXA BONE DENSITY STUDY HISTORYPostmenopausal. COMPARISON STUDYApr2001 Study was performed using holoA LITTLE WORLD unit. The lumbar spine is measured from [...] significant decrease. Reported By: VANE SWIFT M.D. 57-Jvn-571191:20 BRITTNEE (ANTINUCLEAR ANTIBODY) Comments: PATIENT NOT FASTINGPERFORMED BY: LYFE Kitchen [place] [id number] (69682) Antinuclear Antibodies Direct 29 AU/mL (Normal) Range: 0-99 Comments: Negative <100 Equivocal 100 - 120 Positive >120 75-Mok-374230:20 C-REACTIVE PROTEIN (51543) Comments: PATIENT NOT FASTINGPERFORMED BY: LYFE Kitchen [place] [id number] C-Reactive Protein, Quant 1.1 mg/L (Normal) Range: 0.0-4.9 10-Pjp-098714:20 Folate (20470) Comments: PATIENT NOT FASTINGClinical Information: ADD DRAW FEE 257631 ADD J 12485 PERFORMED BY: LYFE Kitchen [place] [id number] Folate (Folic Acid), Serum >24.0 ng/mL (Normal) Comments: Indeterminate: 3.4 - 5.4 Deficient: <3.4 37-Zfs-938712:20 RHEUMATOID FACTOR-QUANT (43353) Comments: PATIENT NOT FASTINGPERFORMED BY: LYFE Kitchen [place] [id number] RA Latex Turbid. 7.9 {IU/mL} (Normal) Range: 0.0-13.9 76-Oum-911218:20 SED RATE ERYTHROCYTE (50791) Comments: PATIENT NOT FASTINGPERFORMED BY: [facility] HospitalWnoucr9688 [facility] [id number] Sedimentation Rate-Westergren 80 mm/h (Abnormal) Range: 0-30 03-Oih-735622:20 VITAMIN B-12 (CYANOCOBALAMIN) Comments: PATIENT NOT FASTINGPERFORMED BY: [facility] Kcrkau4480 [facility] [id number] (73998) Vitamin B12 >2000 pg/mL (Abnormal) Range: 211-911 93-Gex-908906:30 PT/INR, Office (21584) Comments: done kmgoal is 3-4 INR 3.8 [...] CRITICAL VALUE REPEATED AND VERIFIED. CALLED TO DFWXIYB50/11/08 1203 AARON BHATIA.RESULTS READ BACK BY PRASHANTH ALLEN . PROTIME 55.3 s (Abnormal) Range: 10.6-13.2 :20 TSH 0.79 {uIU/mL} (Normal) Range: 0.34-4.82 :29 PT/INR, Office (19731) INR 2.5 (Normal) Comments: aw :10 TROPONIN-I < 0.04 ng/mL (Normal) Comments: TROPONIN-I EXPECTED VALUES < 0.50 NEGATIVE 0.50 - 1.49 INDETERMINANT > OR = 1.50 SUGGEST FL :11 BMP Comments: INDICATE CK '1', '2', [...] 1.49 INDETERMINANT > OR = 1.50 SUGGEST FL :03 BRAIN/HEAD WITHOUT CONTRAST Radiology Report See Note (Normal) Comments: Exam Number: [id number] CT SCAN OF BRAIN HISTORYVertigo. Ataxia. Possible [...] By: NATY LANTIGUA M.D. :42 PT/INR, Office (83399) INR 2.8 (Normal) :02 PRO TIME INR 4.3 (Abnormal) PROTIME 48.1 s (Abnormal) Range: 10.6-13.2 Comments: Please Note Reference Interval Change :26 PRO TIME INR 3.5 (Normal) PROTIME 38.2 s (Abnormal) Range: 11.7-13.3 :58 PRO TIME INR 2.6 (Normal) PROTIME 29.6 s (Abnormal) Range: 11.7-13.3 :24 PRO TIME INR 5.6 (Abnormal) Comments: CRITICAL VALUE REPEATED AND VERIFIED. CALLED TO PRASHANTH ALLEN11/22/06 1024 ASLLY AKBAR.RESULTS READ BACK BY PRASHANTH . PROTIME 58.6 s (Abnormal) Range: 11.7-13.3 :03 PRO TIME INR 2.8 (Normal) PROTIME 31.6 s (Abnormal) Range: 11.7-13.3 :24 PRO TIME INR 5.1 (Abnormal) Comments: CRITICAL VALUE REPEATED AND VERIFIED. CALLED TO SEAN 11/12/06 1438 RUMA GUEVARA.RESULTS READ BACK BY KARISSA. PROTIME 53.8 s (Abnormal) Range: 11.7-13.3 :17 PT/INR, Office (47216) INR 3.6 (Normal) PT (PROTHROMBIN TIME) 22.8 s (Abnormal) Range: 11.5-13.5 :03 PT/INR, Office (46452) Comments: no change recheck 1 wk; Pt. [...] with hypotension Sepsis with hypotension : Reviewed Approver Letter Indication: Sepsis with hypotension GERD (gastroesophageal [...] disease Atrial fibrillation, unspecified type : Reviewed Approver Letter Indication: Atrial fibrillation, unspecified type Hypertension with renal disease : Follow up in 2ish weeks Indication: Hypertension with renal disease Hypertension with renal disease : BP MONITORING - SELF Indication: Hypertension with renal disease Seizure : Reviewed Lab Indication: Seizure Seizure : Reviewed Diagnostic Tests:- cat scan brain Indication: Seizure Seizure : Reviewed Approver Letter Indication: Seizure Controlled diabetes mellitus type II without complication : Follow up in 3 months Indication: Controlled diabetes mellitus type II without complication Seizure : Reviewed Approver Letter Indication: Seizure Controlled diabetes mellitus type [...] for malignant neoplasms, colon) Seizure : Reviewed Approver Letter Indication: Seizure Cerebral hemorrhage : Reviewed Approver Letter: currently in OT Indication: Cerebral hemorrhage Hypertension with renal disease : Continue Current Prescription(s) Indication: Hypertension with renal disease UTI (urinary tract infection), bacterial : Reviewed Lab Indication: UTI (urinary tract infection), bacterial Cerebral hemorrhage : Reviewed Lab Indication: Cerebral hemorrhage Cerebral hemorrhage : Reviewed Diagnostic Tests Indication: Cerebral hemorrhage Cerebral hemorrhage : Reviewed Approver Letter Indication: Cerebral hemorrhage Current non-smoker : [...] up in 3 month/or when [place] [facility] [place] Indication: Controlled diabetes mellitus type II without [...] disease) CHF (congestive heart failure) : Reviewed Approver Letter Indication: CHF (congestive heart failure) CHF [...] Exercise Indication: Osteoarthritis Planned Observations POTASSIUM SERUM (34654)Indication: Hyperkalemia On: 69-Pde-385771:57 Request Blood Glucose , Office (98520)Indication: Uncontrolled type II diabetes mellitus On: 19-Rpz-844442:57 Request Rapid Flu (68124 x 2)Indication: Chills (without fever) On: 0-Clj-284784:38 Request TSH (39576)Indication: Atrial fibrillation, unspecified type On: 50-Mdg-526051:51 Request URINALYSIS, W/ MICRO (65109)Indication: Hypertension with renal disease On: 07-Byd-906620:51 Request MICROALBUMIN: CREATININE RATIO (35723) AND (23717)Indication: Hypertension with renal disease On: 02-Lsi-434427:51 Request METABOLIC PANEL, COMPREHENSIVE (22842)Indication: Hypertension with renal disease On: 11-Yzm-365475:51 Request CBC W/AUTO DIFF WBC (07006)Indication: Hypertension with renal disease On: 28-Hpi-301113:51 Request LIPID PANEL (99894)Indication: Hypercholesterolemia On: 90-Ywb-499299:51 Request TSH (THYROID STIMULATING HORMONE) (97099)Indication: DISORDER, PITUITARY NEC On: 77-Ncl-250062:23 Request T3, FREE (TRIDOTHYRONINE) (40830)Indication: DISORDER, PITUITARY NEC On: :23 Request T4, FREE (THYROXINE) (23694)Indication: DISORDER, PITUITARY NEC On: :23 Request CALCIFIDIOL (18754) VIT D 25Indication: Vitamin D deficiency, unspecified On: :52 Request TSH (38717)Indication: Controlled diabetes mellitus type II without complication On: :52 Request URINALYSIS, W/ MICRO (76215)Indication: Controlled diabetes mellitus type II without complication On: :52 Request MICROALBUMIN: CREATININE RATIO (06114) AND (66037)Indication: Controlled diabetes mellitus type II without complication On: :52 Request METABOLIC PANEL, COMPREHENSIVE (84985)Indication: Controlled diabetes mellitus type II without complication On: :52 Request LIPID PANEL (12658)Indication: Controlled diabetes mellitus type II without complication On: :52 Request CBC W/AUTO DIFF WBC (20596)Indication: Controlled diabetes mellitus type II without complication On: 90-Oxb-877474:52 Request URINE FAVIAN CULTURE-IDENTIFICATN (69171)Indication: Abnormal urine On: 1-Kpx-258180:17 Request FECAL OCCULT- Tubes sent home (21469)Indication: Encounter for screening for malignant neoplasm of colon (Renamed from Special screening for malignant neoplasms, colon) On: 88-Ziv-519529:39 Request Alkaline Phosphatase (36601)Indication: Antiphospholipid syndrome On: :15 Request THROAT CULTURE (49291)Indication: Sore throat On: 01-Feb-20178:32 Request Metabolic Panel, Basic (74513)Indication: Hypertension with renal disease On: :56 Request Comments: do in one month BASIC METABOLIC w/Ionized Ca++ (78407)Indication: Hypertension with renal disease On: :23 Request Urine Protein Electrophoresis (UPEP) (30994)Indication: Elevated serum globulin level On: :17 Request Serum Protein Electrophoresis (SPEP) (58283)Indication: Elevated serum globulin level On: 96-Vuc-87369:17 Request URINALYSIS, W/ MICRO (62366)Indication: Controlled diabetes mellitus type II without complication On: :52 Request TSH (97352)Indication: Controlled diabetes mellitus type II without complication On: :52 Request CBC W/AUTO DIFF WBC (88848)Indication: Controlled diabetes mellitus type II without complication On: :52 Request MICROALBUMIN: CREATININE RATIO (23049) AND (65394)Indication: Controlled diabetes mellitus type II without complication On: :52 Request METABOLIC PANEL, COMPREHENSIVE (36338)Indication: Hypercholesterolemia On: :52 Request LIPID PANEL (00078)Indication: Hypercholesterolemia On: :52 Request HGB A1C (23357)Indication: Controlled diabetes mellitus type II without complication On: :52 Request HgA1C , Office (55851)Indication: Type 2 diabetes mellitus, controlled, with renal complications On: 01-Feb-20139:05 Request Blood Glucose , Office (96379)Indication: Type 2 diabetes mellitus, controlled, with renal complications On: 01-Feb-20139:05 Request URINE FAVIAN CULTURE-IDENTIFICATN (22311)Indication: Dysuria On: :52 Request LIPID PANEL (01753)Indication: Hyperlipidemia On: 15-Rez-273326:17 Request CALCIFIDIOL (44585) VIT D 25Indication: Vitamin D deficiency, unspecified On: 93-Sxw-433841:16 Request Vitamin D Hydroxy (81155)Indication: Osteopenia On: 05-Opx-660208:56 Request TSH (81857)Indication: Uncontrolled type II diabetes mellitus On: 58-Kll-752576:56 Request URINALYSIS, W/ MICRO (12838)Indication: Uncontrolled type II diabetes mellitus On: 35-Uac-813175:56 Request MICROALBUMIN: CREATININE RATIO (59681) AND (75909)Indication: Uncontrolled type II diabetes mellitus On: 62-Xdp-066374:56 Request METABOLIC PANEL, COMPREHENSIVE (39212)Indication: Uncontrolled type II diabetes mellitus On: 44-Kpc-319654:56 Request LIPID PANEL (91669)Indication: Uncontrolled type II diabetes mellitus On: 08-Ecp-830845:56 Request CBC WITH MANUAL DIFF (75321)Indication: Uncontrolled type II diabetes mellitus On: 29-Sep-2011 Request Urine Protein Electrophoresis (UPEP) (22269)Indication: Other specified abnormal findings of blood chemistry On: 01-Wlp-523277:18 Request Serum Protein Electrophoresis (SPEP) (91802)Indication: Other specified abnormal findings of blood chemistry On: 68-Gtg-115643:18 Request PARATHORMONE (59121)Indication: Vitamin D deficiency, unspecified On: 74-Yub-393004:16 Request CALCIFEDIOL (84986)Indication: Other specified abnormal findings of blood chemistry On: 63-Qsl-53853:43 Request GONADOTROPIN-LH (17326)Indication: DISORDER, PITUITARY NEC On: 4-Pyq-277849:04 Request GONADOTROPIN-FSH (07721)Indication: DISORDER, PITUITARY NEC On: 4-Eli-193770:04 Request SOMATOMEDIN (86800)Indication: DISORDER, PITUITARY NEC On: 8-Ene-570471:04 Request PROLACTIN (89979)Indication: DISORDER, PITUITARY NEC On: 3-Lng-572110:04 Request TSH (THYROID STIMULATING HORMONE) (23867)Indication: DISORDER, PITUITARY NEC On: 3-Qqr-688117:04 Request ACTH (66660)Indication: DISORDER, PITUITARY NEC On: 3-Ysz-615489:04 Request LIPID PANEL (23668)Indication: Hypercholesterolemia On: 06-Sep-20109:15 Request PT (Prothrobim Time) (22080)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 On: 0-Ylb-644340:18 Request Comments: Standing order Metabolic Panel, Basic (12964)Indication: Uncontrolled type II diabetes mellitus On: 97-Xgo-17596:00 Request TSH (78543)Indication: Controlled diabetes mellitus type II without complication On: 70-Rdn-011357:41 Request URINALYSIS, W/ MICRO (21793)Indication: Controlled diabetes mellitus type II without complication On: 83-Enu-154245:41 Request MICROALBUMIN: CREATININE RATIO (00922) AND (87021)Indication: Controlled diabetes mellitus type II without complication On: 95-Wmz-379484:41 Request METABOLIC PANEL, COMPREHENSIVE (72676)Indication: Controlled diabetes mellitus type II without complication On: 74-Ith-631410:41 Request LIPOPROTEIN, BLD, BY NMR (23816)Indication: Controlled diabetes mellitus type II without complication On: 16-Nlv-351822:41 Request LIPID PANEL (15146)Indication: Controlled diabetes mellitus type II without complication On: 49-Smp-588820:41 Request CBC WITH MANUAL DIFF (02642)Indication: Controlled diabetes mellitus type II without complication On: 83-Nlh-018306:41 Request Comments: DO PRIOR TO NEXT VISIT PT (Prothrobim Time) (09325) On: 97-Uss-637401:39 Request Comments: inr Vitamin D Hydroxy (63544)Indication: Osteopenia On: 78-Ifc-438231:37 Request HEPATIC FUNCTION PANEL (44563)Indication: Hypercholesterolemia On: 21-Obl-521778:36 Request LIPOPROTEIN, BLD, BY NMR (31671)Indication: Hypercholesterolemia On: 92-Sya-980372:36 Request LIPID PANEL (60176)Indication: Hypercholesterolemia On: 03-Vme-911711:35 Request Comments: do in 3 mionths PT/INR, Office (14217)Indication: Transient ischemic attack On: 76-Mee-94658:17 Request CALCIFIDIOL (05975) VIT D 25Indication: Vitamin D deficiency, unspecified On: 58-Ujm-126445:34 Request PT/INR, Office (52416) On: 56-Dmb-584043:22 Request PT/INR, Office (76731)Indication: Transient ischemic attack On: 3-Ixf-277329:44 Request PT (Prothrobim Time) (80800)Indication: longterm current use of anticoagulant On: 3-Ehz-808664:05 Request Comments: Standing order x 1 year PT/INR, Office (56938) On: 90-Xwz-34240:57 Request SED RATE ERYTHROCYTE (54103)Indication: Polymyalgia rheumatica On: 53-Jdi-964641:59 Request Comments: DO IN 2 WEEKS LIPID PANEL (71895)Indication: Hypercholesterolemia On: 77-Yqj-150148:02 Request Comments: do in 6 months PT/INR, Office (63436) On: 09-Wqu-950956:25 Request Comments: done kmsee flow sheet PT/INR, Office (58267)Indication: Transient ischemic attack On: 22-Crg-523848:04 Request Comments: done PT (Prothrobim Time) (55248)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 See [facility]: 2048) (J7030)By: Hannah Leos DO, DO, Kathleen INFUSION, NORMAL SALINE SOLUTION On: 20-Sep-2017 Intent , 1000 CC (Special Coverage Comments: IV Therapy ocenchntq65E, 1 inchSite: L ac - first attempt and Saline Lock flushed easily Tolerated: wellno redness or swelling, no s/s infiltration MLONG Instructions Apply. See [facility]: 2048) (J7030)By: Hannah Leos DO, DO, Kathleen ELECTROCARDIOGRAM, COMPLETE On: 28-Jun-2017 Intent (ECG) (63490)By: Mino SMITH, Yadira PNEUM VAC ADLT/IMUMNOSPR, On: 16-Jun-2017 Intent SBC/INTRM (25296)By: Visit, Comments: Lot #[id number]-L arm, dltd, IMDose- prefilled syringegiven by:WALDO McfarlandVIS signed Nurse ELECTROCARDIOGRAM, COMPLETE On: 14-Jun-2017 Intent (ECG) (22741)By: Dafne WELSH, Comments: sinus poor R progression , nonaspecific st flattening and t wave inversion in lateral leads-- new chgn - Hannah Castro DO SCREENING DIGITAL TOMOSYNTHESIS On: 24-May-2017 Intent OF BREAST (06243)By: Hannah Leos DO, DO, Kathleen Flu Vaccine (Quadrivalent) On: 07-May-2017 Intent [id number]: Hannah Leos DO Comments: Lot:[id number]:02/14/18Amt:0.5mlRoute:IMSite: L DltdGiven By: GUSTAVO Chaves signed Hannah Leos DO CT - Brain/Head (Without On: 05-Apr-2017 Intent Contrast)By: Hannah Leos DO Comments: following cerebral hemorrhage Hannah Leos DO Solu -Medrol Injection, 125 mg On: 08-Mar-2017 Intent ([id number])By: Daniela Herzog CNP Comments: Lot:[id number]:07/18Dose:125mgRoute:imSite:r hip Given By:MO signed Radiology - Elbow - RightBy: On: 08-Mar-2017 Intent Daniela Herzog CNP Flu Vaccine (Quadrivalent) On: 04-Jun-2016 Intent [id number]: Hannah Leos DO Comments: Lot:[id number]:02/26/17Dose:0.5mLRoute:IMSite:L DltdGiven By:MO signed Hannah Leos DO DEXA SCAN AXIAL SKELETON On: 17-Oct-2015 Intent ([id number])By: Hannah Leos DO, DO, Kathleen MAMMOGRAM, SCREENING, BOTH On: 17-Oct-2015 Intent BREAST ([id number])By: Hannah Leos DO, DO, Kathleen IMMUNIZ ADMNIN, 1 VAC, On: 04-Jun-2014 Intent SNGL/COMBO ([id number])By: Cathy Kim FLU VAC, SPLIT, >3 YEARS, On: 04-Jun-2014 Intent INTRAMUSC ([id number])By: Julio, Comments: Lot:[id number]:Dose:0.5mLRoute:IMSite:L DltdGiven By:MO signed Cathy EKG ([id number])By: Dafne WELSH, On: 08-Nov-2013 Intent Hannah Castro DO Comments: sinus alethea - nonspeciific st flattening Eprescribed prescriptions On: 08-Nov-2013 Intent (G8553)By: Hannah Leos DO, DO, Kathleen Eprescribed prescriptions On: 01-Feb-2013 Intent (G8553)By: Shea May LPN Eprescribed prescriptions On: 09-Nov-2012 Intent (G8553)By: Shea May LPN EKG ([id number])By: Dafne WELSH, On: 29-Jul-2012 Intent Hannah Castro DO Comments: nsr no acute chg MAMMOGRAM, SCREENING, BOTH On: 29-Jul-2012 Intent BREASTS ([id number])By: Hannah Leos DO, DO, Kathleen Eprescribed prescriptions On: 29-Jul-2012 Intent (G8553)By: Jessica Shields LPN Eprescribed prescriptions On: 11-Jan-2012 Intent (G8553)By: Jessica Shields LPN EKG ([id number])By: Dafne WELSH, On: 16-Jul-2011 Intent Hannah Castro DO Comments: nsr no acute chg -first degree block not differnt IMMUNIZ ADMNIN, 1 VAC, On: 16-Jul-2011 Intent SNGL/COMBO ([id number])By: Dafne WELSH, Comments: Lot #[id number]/Site-left deltoidgiven by: WALDO Stewart DO, Kathleen PNEUM VAC ADLT/IMUMNOSPR, On: 16-Jul-2011 Intent SBC/INTRM ([id number])By: Hannah Leos DO, DO, Kathleen DXA, BONE DENSITY, AXIAL On: 15-Oct-2010 Intent SKELETON ([id number])By: Jessica Shields LPN MAMMOGRAM, SCREENING, BOTH On: 15-Oct-2010 Intent BREASTS ([id number])By: Jessica Shields LPN Clinical Breast Examination On: 15-Oct-2010 Intent (G0101)By: Jessica Shields LPN TDAP VACCINE >7 IM ([id number])By: On: 08-Sep-2010 Intent Hannah Leos DO, DO, Comments: Lot #[id number]-L armDose prefilled syringegiven by:DEEDEE Young MRA - Upper Extremity OtherBy: On: 15-Jul-2010 Intent Hannah Leos DO, DO, Kathleen MRI - BrainBy: Dafne WELSH, On: 06-Jun-2010 Intent Hannah Castro DO EKG ([id number])By: Dafne WELSH, On: 06-Jun-2010 Intent Hannah Castro DO Nuclear Stress Test/Stress On: 12-Aug-2009 Intent SPECT/AdenosineBy: Hannah Leos DO, DO, Kathleen Echo CompleteBy: Dafne WELSH, On: 15-Jul-2009 Intent Hannah Castro DO EKG ([id number])By: Dafne WELSH, On: 15-Jul-2009 Intent Hannah Castro DO Comments: nonspecific flattening no acute changes Solu -Medrol Injection, 125 mg On: 23-May-2009 Intent ([id number])By: Yuko Gonzalez LPN Comments: Lot #[id number]-Left lcmCwco391 mggiven by:[facility] Spirometry ([id number])By: Aron, On: 23-May-2009 Intent Francisca Comments: normal CT - ChestBy: Francisca Sharp On: 23-May-2009 Intent Comments: PE protocol Pulse Oximetry ([id number])By: On: 23-May-2009 Intent Francisca Sharp Comments: 97% EKG (10976)By: Dafne WELSH, On: 11-Nov-2007 Intent Hannah Castro DO Comments: SINUS ALETHEA NONSPECIFIC BASELINE DXA, BONE DENSITY, AXIAL On: 28-Oct-2007 Intent SKELETON ([id number])By: Hannah Leos DO, DO, Hannah MAMMOGRAM, SCREENING, BOTH On: 28-Oct-2007 Intent BREASTS ([id number])By: Hannah Leos DO, DO, Kathleen Radiology - Chest- PA and LatBy: On: 12-Nov-2006 Intent Hannah Leos DO, DO, Hannah Aerosol Treatment ([id number])By: On: 12-Nov-2006 Intent Hannah Leos DO, DO, Comments: MORE AIR EXCHANGE NO WHEEZE AND RUB SOFTER-- PT FEELS CLINICALLY BETTER Hannah Pulse Oximetry ([id number])By: Dafne On: 12-Nov-2006 Intent Hannah WELSH DO, [...] is transitioning into care from a hospital ([facility] for 1 week and a half [...] conversion disorder with concussion. 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 The patient has noticed [...] BMI 30.0-30.9,adult, Current non-smoker, Cerebral hemorrhage, terminal manager current use of anticoagulant, UTI (urinary tract infection), bacterial, Seizure [facility] Office Visit On: 05-Apr-2017 14:17 Encounter Reason: Transition into care - The patient is transitioning into care from a fdc facility (was in hosp 3 weeks and then she was in [facility] 2 weeks from a brain bleed she thinks it was from sliding off o End: 05-Apr-2017 16:48 f the bed while on a cruise prior to that. Then she had seziures until she had the medication to stablizer her.) and a summary of care was reviewed.Encounter Diagnosis: longterm current use of anticoagulant, Cerebral hemorrhage, Seizure, [...] mellitus type II without complication, Hypercholesterolemia, terminal manager current use of anticoagulant, CHF (congestive heart [...]
--- OUTSIDE RECORDS SUMMARY | 2018-11-18 16:24 | XMS RPT_ITS ---
:1950 Author Organization [place] Support Name Relationship Address Phone R Unavailable Unavailable Unavailable RACHEL CARDONA Unavailable [address] + [place] [address] DEVYN CARDONA Unavailable [address] + [place] [address] R Unavailable Unavailable Unavailable RACHEL CARDONA Unavailable [address] + [place] [address] DEVYN CARDONA Unavailable [address] + [place] [address] R Unavailable Unavailable Unavailable RACHEL CARDONA Unavailable [address] + [place] [address] DEVYN CARDONA Unavailable [address] + [place] [address] R Unavailable Unavailable Unavailable RACHEL CARDONA Unavailable [address] + [place] [address] DVEYN CARDONA Unavailable [address] + [place] [address] R Unavailable Unavailable Unavailable RACHEL CARDONA Unavailable [address] + [place] [address] DEVYN CARDONA Unavailable [address] + [place] [address] R Unavailable Unavailable Unavailable RACHEL CARDONA Unavailable [address] + [place] [address] DEVYN CARDONA Unavailable [address] + [place] [address] R Unavailable Unavailable Unavailable RACHEL CARDONA Unavailable [address] + [place] [address] DEVYN CARDONA Unavailable [address] + [place] [address] R Unavailable Unavailable Unavailable CARDONAKEN GRENEEE Unavailable [address] + [place] [address] CARDONADEVYN GREENE Unavailable [address] + [place] [address] R Unavailable Unavailable Unavailable CARDONARACHEL Unavailable [address] + [place] [address] CARDONADEVYN GREENE Unavailable [address] + [place] [address] R Unavailable Unavailable Unavailable CARDONAKENE Unavailable [address] + [place] [address] CARDONADEVYN GREENE Unavailable [address] + [place] [address] R Unavailable Unavailable Unavailable CARDONAKENE Unavailable [address] + [place] [address] DEVYN CARDONA Unavailable [address] + [place] [address] R Unavailable Unavailable Unavailable CARDONAKEN GREENEE Unavailable [address] + [place] [address] CARDONADEVYN GREENE Unavailable [address] + [place] [address] R Unavailable Unavailable Unavailable CARDONAKEN GREENEE Unavailable [address] + [place] [address] CARDONADEVYN GREENE Unavailable [address] + [place] [address] R Unavailable Unavailable Unavailable CARDONAKENE Unavailable [address] + [place] [address] DEVYN CARDONA Unavailable [address] + [place] [address] R Unavailable Unavailable Unavailable CARDONAKENE Unavailable [address] + [place] [address] DEVYN CARDONA Unavailable [address] + [place] [address] R Unavailable Unavailable Unavailable CARDONAKENE Unavailable [address] + [place] [address] DEVYN CARDONA Unavailable [address] + [place] [address] R Unavailable Unavailable Unavailable CARDONARACHEL Unavailable [address] + [place] [address] CARDONAJOHNW Unavailable [address] + [place] [address] R Unavailable Unavailable Unavailable CARDONAKENE Unavailable [address] + [place] [address] DULCEJOHNW Unavailable [address] + [place] [address] R Unavailable Unavailable Unavailable CARDONAKENE Unavailable [address] + [place] [address] CARDONA DEVYN Unavailable [address] + [place] [address] R Unavailable Unavailable Unavailable CARDONAKENE Unavailable [address] + [place] [address] DULCE DEVYN Unavailable [address] + [place] [address] R Unavailable Unavailable Unavailable CARDONARACHEL Unavailable [address] + [place] [address] DULCE DEVYN Unavailable [address] + [place] [address] R Unavailable Unavailable Unavailable CARDONAKENE Unavailable [address] + [place] [address] DULCEJOHNW Unavailable [address] + [place] [address] R Unavailable Unavailable Unavailable CARDONAKENE Unavailable [address] + [place] [address] CARDONA DEVYN Unavailable [address] + [place] [address] R Unavailable Unavailable Unavailable CARDONAKENE Unavailable [address] + [place] [address] DEVYN CARDONA Unavailable [address] + [place] [address] R Unavailable Unavailable Unavailable CARDONAKENE Unavailable [address] + [place] [address] DEVYN CARDONA Unavailable [address] + [place] [address] R Unavailable Unavailable Unavailable CARDONAKENE Unavailable [address] + [place] [address] CARDONADEVYN GREENE Unavailable [address] + [place] [address] R Unavailable Unavailable Unavailable CARDONAKENE Unavailable [address] + [place] [address] CARDONADEVYN Unavailable [address] + [place] [address] R Unavailable Unavailable Unavailable CARDONAKENE Unavailable [address] + [place] [address] CARDONAJOHNW Unavailable [address] + [place] [address] R Unavailable Unavailable Unavailable CARDONAKENE Unavailable [address] + [place] [address] CARDONAJOHNW Unavailable [address] + [place] [address] R Unavailable Unavailable Unavailable CARDONAKENE Unavailable [address] + [place] [address] CARDONAJOHNW Unavailable [address] + [place] [address] R Unavailable Unavailable Unavailable CARDONAKENE Unavailable [address] + [address] [place] [address] CARDONAJOHNW Unavailable [address] + [place] [address] R Unavailable Unavailable Unavailable CARDONAKENE Unavailable [address] + [address] [place] [address] CARDONAJOHNW Unavailable [address] + [place] [address] R Unavailable Unavailable Unavailable CARDONAKENE Unavailable [address] + [place] [address] DULCEJOHNW Unavailable [address] + [place] [address] R Unavailable Unavailable Unavailable CARDONAKENE Unavailable [address] + [address] [place] [address] DEVYN CARDONA Unavailable [address] + [place] [address] R Unavailable Unavailable Unavailable CARDONAKENE Unavailable [address] + [place] [address] CARDONA DEVYN Unavailable [address] + [place] [address] R Unavailable Unavailable Unavailable CARDONAKENE Unavailable [address] + [address] [place] [address] CARDONA DEVYN Unavailable [address] + [place] [address] R Unavailable Unavailable Unavailable CARDONAKENEN Unavailable [address] + [address] [place] [address] DEVYN CARDONA Unavailable [address] + [place] [address] R Unavailable Unavailable Unavailable DULCE JUDITH Unavailable [address] + [address] [place] [address] CARDONA DEVYN Unavailable [address] + [place] [address] R Unavailable Unavailable Unavailable CARDONAKENEN Unavailable [address] + [address] [place] [address] DEVYN CARDONA Unavailable [address] + [place] [address] R Unavailable Unavailable Unavailable DULCEKENEN Unavailable [address] + [address] [place] [address] DEVYN CARDONA Unavailable [address] + [place] [address] R Unavailable Unavailable Unavailable CARDONA RACHEL Unavailable [address] + [address] [place] [address] DEVYN CARDONA Unavailable [address] + [place] [address] R Unavailable Unavailable Unavailable JUDITH CARDONA Unavailable [address] + [address] [place] [address] DEVYN CARDONA Unavailable [address] + [place] [address] R Unavailable Unavailable Unavailable JUDITH CARDONA Unavailable [address] + [address] [place] [address] CARDONADEVYN GREENE Unavailable [address] + [place] [address] R Unavailable Unavailable Unavailable JUDITH CARDONA Unavailable [address] + [address] [place] [address] DEVYN CARDONA Unavailable [address] + [place] [address] R Unavailable Unavailable Unavailable JUDITH CARDONA Unavailable [address] + [address] [place] [address] DEVYN CARDONA Unavailable [address] + [place] [address] R Unavailable Unavailable Unavailable JUDITH CARDONA Unavailable [address] + [address] [place] [address] DEVYN CARDONA Unavailable [address] + [place] [address] R Unavailable Unavailable Unavailable RACHEL CARDONA Unavailable [address] + [address] [place] [address] DEVYN CARDONA Unavailable [address] + [place] [address] Care Team Providers Name Role Phone Manjinder Turpin Attending Unavailable Manjinder Turpin Referring Unavailable Keely, Hannah Primary Care Unavailable Teresa Dodd Attending Unavailable Keely, Hannah Primary Care Unavailable Teresa Dodd Referring Unavailable Manjinder Turpin Consulting Unavailable Keely, Hannah Primary Care Unavailable Jopperi, Karel Admitting Unavailable Maris, Mehul Consulting Unavailable Bernardo Mendez Attending Unavailable Ronak Miller Consulting Unavailable Jopaulinaeri, Karel Admitting Unavailable Jopaulinaeri, Karel Attending Unavailable Keely, Hannah Primary Care Unavailable Jopperi, Karel Consulting Unavailable Jopperi, Karel Admitting Unavailable Keely, Hannah Primary Care Unavailable Maris, Mehul Consulting Unavailable Aly Randhawa Attending Unavailable Rnoak Miller Consulting Unavailable Landryar, Kombian Consulting Unavailable Jopperi, Karel Admitting Unavailable Maris, Mehul Attending Unavailable Keely, Hannah Primary Care Unavailable Maris, Massena Consulting Unavailable Seals, Ronak Consulting Unavailable Gbaruk, Kombian Consulting Unavailable Aly Randhawa Attending Unavailable Jopperi, Karel Admitting Unavailable Keely, Hannah Primary Care Unavailable Maris, Mehul Consulting Unavailable Seals, Ronak Consulting Unavailable Gbaruk, Kombian Consulting Unavailable Teresa Dodd Attending Unavailable Keely, Hannah Primary Care Unavailable Antonio, Teresa Referring Unavailable Keely, Hannah Primary Care Unavailable Wenceslao Marley Attending Unavailable Keely, Hannah Primary Care Unavailable Anna Elama Attending Unavailable Antonio, Teresa Attending Unavailable Keely, Hannah Primary Care Unavailable Atnonio Teresa Attending Unavailable Keely, Hannah Primary Care Unavailable Yasmin Aiken Attending Unavailable Keely, Hannah Referring Unavailable Keely, Hannah Primary Care Unavailable Francesco Chavez Attending Unavailable Yasmin Aiken Attending Unavailable Yasmin Aiken Referring Unavailable Keely, Hannah Primary Care Unavailable Manjinder Turpin Attending Unavailable Keely, Hannah Primary Care Unavailable Verónica Trinidad Attending Unavailable Keely, Hannah Referring Unavailable Keely, Hannah Primary Care Unavailable Maris, Massena Attending Unavailable Keely, Hannah Primary Care Unavailable Maris, Mheul Attending Unavailable Maris, Mehul Referring Unavailable Keely, Hannah Primary Care Unavailable Maris, Mehul Attending Unavailable Karel Max Referring Unavailable Verónica Trinidad Attending Unavailable Maris, Mehul Attending Unavailable Maris, Mehul Referring Unavailable Keely, Hannah Primary Care Unavailable Maris, Massena Consulting Unavailable Keely, Hannah Primary Care Unavailable Rodríguez Costa Attending Unavailable Verónica Trinidad Attending Unavailable Keely, Hannah Referring Unavailable Keely, Hannah Primary Care Unavailable Maris, Massena Attending Unavailable Maris, Massena Referring Unavailable Maris, Mehul Attending Unavailable Antonio, Teresa Attending Unavailable Antonio, Teresa Referring Unavailable Keely, Hannah Primary Care Unavailable Verónica Trinidad Attending Unavailable Keely, Hannah Referring Unavailable AntonioRastaTeresa Attending Unavailable Keely, Hannah Primary Care Unavailable Lisseth Palencia Attending Unavailable Yasmin Aiken Attending Unavailable Keely, Hannah Referring Unavailable Keely, Hannah Primary Care Unavailable Keely, Hannah Primary Care Unavailable Jopperi, Karel Admitting Unavailable Walter, Silver Consulting Unavailable Koram, Billie Malaika Attending Unavailable Jopperi, Karel Attending Unavailable Keely, Hannah Primary Care Unavailable Jopperi, Karel Referring Unavailable Jopperi, Karel Admitting Unavailable Paintsil, China Attending Unavailable Keely, Hannah Primary Care Unavailable Walter, Silver Consulting Unavailable Paintsil, China Consulting Unavailable Jopperi, Karel Admitting Unavailable Paintsil, China Attending Unavailable Keely, Hannah Primary Care Unavailable Walter, Silver Consulting Unavailable Paintsil, China Consulting Unavailable Jopperi, Karel Admitting Unavailable Washington Del Angel D.O. Attending Unavailable Keely, Hannah Primary Care Unavailable Walter, Silver Consulting Unavailable Koram, Billie Malaika Consulting Unavailable Jopperi, Karel Admitting Unavailable Washington Del Angel D.O. Attending Unavailable Keely, Hannah Primary Care Unavailable Walter, Silver Consulting Unavailable Koram, Billie Malaika Consulting Unavailable Jopperi, Karel Admitting Unavailable Koram, Billie Malaika Attending Unavailable Keely, Hannah Primary Care Unavailable Walter, Silver Consulting Unavailable Koram, Billie Malaika Consulting Unavailable Teresa Dodd Attending Unavailable Keely, Hannah Primary Care Unavailable Koram, Billie Malaika Attending Unavailable Verónica Trinidad Attending Unavailable Keely, Hannah Referring Unavailable Keely, Hannah Primary Care Unavailable Walter, Silver Attending Unavailable Jopperi, Karel Referring Unavailable Maris, Mehul Attending Unavailable Maris, Mehul Referring Unavailable Keely, Hannah Attending Unavailable Keely, Hannah Referring Unavailable Keely, Hannah Primary Care Unavailable Manjinder Turpin Attending Unavailable Manjinder Turpin Referring Unavailable Keeyl, Hannah Primary Care Unavailable Teresa Dodd Attending Unavailable Keely, Hannah Primary Care Unavailable Teresa Dodd Referring Unavailable Verónica Trinidad Attending Unavailable Keely, Hannah Referring Unavailable PROBLEMS PROBLEMS DATE TYPE CONDITION / CODE ATTENDING STATUS SOURCE 09/06/2018 Unknown R80.9 - ProteinuriaAntonio Christine Active [place] unspecified / Community R80.9(ICD-10) Hospital Repository 09/06/2018 Unknown D64.9 - Anemia, Teresa Dodd Active [place] unspecified / Community D64.9(ICD-10) Hospital Repository 08/17/2018 Unknown 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, intractable, without status epilepticus / G40.019(ICD-10) 04/13/2018 Unknown E11.9 - Type 2 Walter, Silver Active [place] diabetes mellitus Community without Hospital complications / Repository E11.9(ICD-10) 04/13/2018 Unknown I48.91 - Unspecified Walter, Silver Active [place] atrial fibrillation Community / I48.91(ICD-10) Hospital Repository 04/13/2018 Unknown A41.9 - Sepsis, Walter, Silver Active [place] unspecified organism Community / A41.9(ICD-10) Hospital Repository 04/13/2018 Unknown R65.21 - Severe Walter, Silver Active [place] sepsis with septic Community shock / Hospital R65.21(ICD-10) Repository 04/13/2018 Unknown G93.41 - Metabolic Walter, Silver Active [place] encephalopathy / Community G93.41(ICD-10) Hospital Repository 04/13/2018 Unknown K56.7 - Ileus, Walter, Silver Active [place] unspecified / Community K56.7(ICD-10) Hospital Repository 04/13/2018 Unknown E83.51 - Walter, Silver Active [place] Hypocalcemia / Community E83.51(ICD-10) Hospital Repository 04/13/2018 Unknown E78.5 - Walter, Silver Active [place] Hyperlipidemia, Community unspecified / Hospital E78.5(ICD-10) Repository 04/26/2018 Unknown Z95.0 - Presence of Maris, Mehul Active [place] cardiac pacemaker / Community Z95.0(ICD-10) Hospital Repository 11/06/2017 Unknown I49.8 - Other Verónica Trinidad Active [place] specified cardiac Community arrhythmias / Hospital I49.8(ICD-10) Repository 11/06/2017 Unknown I49.5 - Sick sinus Verónica Trinidad Active [place] syndrome / Community I49.5(ICD-10) Hospital Repository 11/06/2017 Unknown R00.1 - Bradycardia, Verónica Trinidad Active [place] unspecified / Community R00.1(ICD-10) Hospital Repository 11/22/2017 Unknown F41.0 - Panic Manjinder Turpin Active [place] disorder [episodic Community paroxysmal anxiety] Hospital / F41.0(ICD-10) Repository PROCEDURES PROCEDURES No Procedure Records FoundRESULTS RESULTS RENAL PROFILE Collected: 09/06/2018 Status: F Source: [place] 1:40 PM [facility] REPOSITORY TYPE CODE TESTS RESULT OUT OF RANGE REFERENCE UNITS LAB L501.0100 74-106 mg/dL High GLU 179 Result Comment: Fasting Glucose result greater than or equal to 126 mg/dL suggests DIABETES MELLITUS per A.D.A. criteria. Please note revised GLUCOSE reference range effective 2017. LAB L501.1000 7-18 mg/dL Normal BUN 14 LAB L501.1100 0.55-1.02 mg/dL Normal CREAT,SERUM 0.87 Result Comment: The validity of the calculated GFR AND GFRAA in patients over 70 years has not been determined. Clinical correlation is essential. LAB L501.1110 >60 mL/min Normal EST GFR 69 Result Comment: Non- GFR Calc LAB L501.1115 >60 mL/min Normal EST GFR - AA 83 Result Comment: GFR Calc LAB L501.1300 10-20 RATIO Normal BUN/CRE 16.0 LAB L501.1800 3.2-5.0 g/dL Normal ALB 3.4 LAB L501.2200 8.5-10.1 mg/dL CA Normal 9.3 LAB L501.2300 2.5-4.9 mg/dL Normal PHOS 3.7 LAB L501.5300 136-145 mmol/L NA Normal 142 LAB L501.5600 3.5-5.1 mmol/L K Normal 4.5 Result Comment: Moderate Hemolysis, Result may be falsely increased. LAB L501.5900 98-107 mmol/L Normal CL 102 LAB L501.6100 21.0-32.0 mmol/L Normal CO2 29.0 Performed By: #### L500.3600 #### [facility] [address] [place], [address] COMPREHENSIVE METABOLIC Collected: 08/17/2018 Status: F Source: [place] PROFIL 11:59 AM [facility] REPOSITORY TYPE CODE TESTS RESULT OUT OF RANGE REFERENCE UNITS LAB L501.0100 74-106 mg/dL High GLU 165 Result Comment: Fasting Glucose result greater than or equal to 126 mg/dL suggests DIABETES MELLITUS per A.D.A. criteria. Please note revised GLUCOSE reference range effective 2017. LAB L501.1000 7-18 mg/dL Normal BUN 15 LAB L501.1100 0.55-1.02 mg/dL Normal CREAT,SERUM 0.97 Result Comment: The validity of the calculated GFR AND GFRAA in patients over 70 years has not been determined. Clinical correlation is essential. LAB L501.1110 >60 mL/min Normal EST GFR 61 Result Comment: Non- GFR Calc LAB L501.1115 >60 mL/min Normal EST GFR - AA 74 Result Comment: GFR Calc LAB L501.1300 10-20 RATIO Normal BUN/CRE 15.5 LAB L501.1500 6.4-8.2 g/dL High T PROT 8.5 LAB L501.1800 3.2-5.0 g/dL Normal ALB 3.4 LAB L501.1950 2.2-4.2 g/dL High GLOB 5.1 LAB L501.2000 0.9-2.4 RATIO Low A/G 0.7 LAB L501.2200 8.5-10.1 mg/dL CA Normal 9.4 LAB L501.4100 15-37 U/L Normal AST 21 LAB L501.4305 45-117 U/L Normal ALK P 57 LAB L501.4405 13-56 U/L Low ALT 7 LAB L501.4600 0.20-1.00 mg/dL T Normal BILI 0.30 LAB L501.5300 136-145 mmol/L NA Normal 143 LAB L501.5600 3.5-5.1 mmol/L K Normal 4.4 LAB L501.5900 98-107 mmol/L CL Normal 104 LAB L501.6100 21.0-32.0 mmol/L Normal CO2 27.0 LAB L501.6200 5-15 Normal GAP 12 Performed By: #### L500.4050 #### [facility] [address] [place], [address] VALPROIC ACID Collected: 08/17/2018 Status: F Source: [place] ([place]KEN[place]) LEVEL 11:59 AM [facility] REPOSITORY TYPE CODE TESTS RESULT OUT OF RANGE REFERENCE UNITS LAB L501.8100 50-100 ug/mL Normal VALPROIC ACID 55 Performed By: #### L501.8100 #### [facility] [address] [place], [address] LAMOTRIGINE (LAMICTAL) Collected: 08/17/2018 Status: F Source: [place] LEVEL 11:59 AM [facility] REPOSITORY TYPE CODE TESTS RESULT OUT OF RANGE REFERENCE UNITS LAB L3300.4400 Normal LAMOTRIG [id number] Result Comment: NONE DETECTED Detection Limit = 1.0 Performed at: [facility] [id number] [employer] Associate: Gloria Concepcion MD, Phone: [phone] Performed By: #### L3300.4400 #### [facility] (refer to report for specific site) refer to report for address and phone number PACEMAKER CHECK Observed: 08/04/2018 Status: F Source: [place] 9:22 AM [facility] REPOSITORY [facility] [address] [place] [address] Pacemaker Check Date of Service: 08/04/18715 MR#: [id number] Acct: [id number] Name: HERMINIA CARDONA Rep #: [id number] : 1950 From: Verónica Trinidad Age/Sex: 68/F Location: [facility] Status: Signed Billing Codes PM Device Codes: PM Dev Interrogate (Remot 08/04/18 0718 <Electronically signed by Verónica Trinidad > Date Verónica Trinidad 08/04/18 0922<Electronically signed by Mehul Pollock MD> Cosigner Signature: Date (if applicable) Mehul Pollock MD CC: PROTEIN+CREATININE Collected: Status: F Source: [place] RATIO,URINE 08/01/2018 2:48 PM [facility] REPOSITORY TYPE CODE TESTS RESULT OUT OF RANGE REFERENCE UNITS LAB L501.1200 NO RANGE EST. mg/dL Normal UR CREAT 83.10 LAB L501.1930 <11.9 mg/dL High 187.8 PROTEIN,UR.R AN. LAB L501.1940 0-200 mg/g CRE High PROT:CRE 2260 RATIO Performed By: #### L501.0900 #### [facility] [address] [place], [place], [address] RENAL PROFILE Collected: 08/01/2018 Status: F Source: [place] 2:48 PM [facility] REPOSITORY TYPE CODE TESTS RESULT OUT OF RANGE REFERENCE UNITS LAB L501.0100 74-106 mg/dL High GLU 150 Result Comment: Fasting Glucose result greater than or equal to 126 mg/dL suggests DIABETES MELLITUS per A.D.A. criteria. Please note revised GLUCOSE reference range effective 2017. LAB L501.1000 7-18 mg/dL High BUN 20 LAB L501.1100 0.55-1.02 mg/dL Normal CREAT,SERUM 0.80 Result Comment: The validity of the calculated GFR AND GFRAA in patients over 70 years has not been determined. Clinical correlation is essential. LAB L501.1110 >60 mL/min Normal EST GFR 76 Result Comment: Non- GFR Calc LAB L501.1115 >60 mL/min Normal EST GFR - AA 92 Result Comment: GFR Calc LAB L501.1300 10-20 RATIO High BUN/CRE 24.9 LAB L501.1800 3.2-5.0 g/dL Normal ALB 3.5 LAB L501.2200 8.5-10.1 mg/dL CA Normal 9.1 LAB L501.2300 2.5-4.9 mg/dL Normal PHOS 3.5 LAB L501.5300 136-145 mmol/L NA Normal 141 LAB L501.5600 3.5-5.1 mmol/L K Normal 4.7 Result Comment: Slight Hemolysis, Result may be falsely increased. LAB L501.5900 98-107 mmol/L Normal CL 104 LAB L501.6100 21.0-32.0 mmol/L Normal CO2 25.0 Performed By: #### L500.3600 #### [facility] [address] [place] [place], [address] VALPROIC ACID Collected: 06/09/2018 Status: F Source: [place] ([place]KEN[place]) LEVEL 11:27 AM [facility] REPOSITORY TYPE CODE TESTS RESULT OUT OF RANGE REFERENCE UNITS LAB L501.8100 50-100 ug/mL Normal VALPROIC ACID 65 Performed By: #### L501.8100 #### [facility] [address] [place], [address] MISCELLANEOUS LAB Collected: 06/09/2018 Status: F Source: [place] PROCEDURE 11:27 AM [facility] REPOSITORY Order Comment: Comments: [id number] LACOSAMIDE SER RT Test(s) Ordered: [id number] LACOSAMIDE SER RT TYPE CODE TESTS RESULT OUT OF RANGE REFERENCE UNITS LAB L801.1541 Normal [facility] LAB TEST Result Comment: TEST RESULT UNITS REFERENCE INTERVAL Lacosamide Lacosamide 16.6 High ug/mL 5.0 - 10.0 Limit of Detection 0.5 Mean plasma concentrations following maintenance dose 200 mg/day 4.99 +/- 2.51 ug/mL 400 mg/day 9.35 +/- 4.22 ug/mL 600 mg/day 12.46 +/- 5.60 ug/mL Please Note: This test was developed and its performance characteristics determined by [employer]. It has not been cleared or approved by the Food and Drug Administration. TESTING PERFORMED AT [facility]. ORIGINAL REPORT ON FILE IN LAB CONTAINS ADDITIONAL TEST SITE INFORMATION. Performed By: #### L801.1541 #### [facility] [address] [place], [address] POTASSIUM Collected: 05/18/2018 Status: F Source: [place] 4:31 PM [facility] REPOSITORY TYPE CODE TESTS RESULT OUT OF RANGE REFERENCE UNITS LAB L501.5600 3.5-5.1 mmol/L Normal K 4.8 Performed By: #### L501.5600 #### [facility] [address] [place], [address] PROTEIN+CREATININE Collected: Status: F Source: [place] RATIO,URINE 04/15/2018 11:31 AM [facility] REPOSITORY TYPE CODE TESTS RESULT OUT OF RANGE REFERENCE UNITS LAB L501.1200 NO RANGE EST. mg/dL Normal UR CREAT 45.30 LAB L501.1930 <11.9 mg/dL High 63.9 PROTEIN,UR.R AN. LAB L501.1940 0-200 mg/g CRE High PROT:CRE 1411 RATIO Performed By: #### L501.0900 #### [facility] [address] [place], [address] RENAL PROFILE Collected: 04/15/2018 Status: F Source: [place] 11:31 AM [facility] REPOSITORY TYPE CODE TESTS RESULT OUT OF RANGE REFERENCE UNITS LAB L501.0100 74-106 mg/dL High GLU 128 Result Comment: Fasting Glucose result greater than or equal to 126 mg/dL suggests DIABETES MELLITUS per A.D.A. criteria. Please note revised GLUCOSE reference range effective 2017. LAB L501.1000 7-18 mg/dL Normal BUN 18 LAB L501.1100 0.55-1.02 mg/dL Normal CREAT,SERUM 0.71 Result Comment: The validity of the calculated GFR AND GFRAA in patients over 70 years has not been determined. Clinical correlation is essential. LAB L501.1110 >60 mL/min Normal EST GFR 87 Result Comment: Non- GFR Calc LAB L501.1115 >60 mL/min Normal EST GFR - AA 105 Result Comment: GFR Calc LAB L501.1300 10-20 RATIO High BUN/CRE 25.2 LAB L501.1800 3.2-5.0 g/dL Normal ALB 3.9 LAB L501.2200 8.5-10.1 mg/dL CA Normal 9.4 LAB L501.2300 2.5-4.9 mg/dL Normal PHOS 3.3 LAB L501.5300 136-145 mmol/L NA Normal 139 LAB L501.5600 3.5-5.1 mmol/L K Normal 4.8 Result Comment: Slight Hemolysis, Result may be falsely increased. LAB L501.5900 98-107 mmol/L Normal CL 106 LAB L501.6100 21.0-32.0 mmol/L Normal CO2 24.0 Performed By: #### L500.3600 #### [facility] [address] [place], [address] PACEMAKER CHECK Observed: 04/11/2018 Status: F Source: [place] 4:59 PM [facility] REPOSITORY [facility] [address] [place] [address] Pacemaker Check Date of Service: 04/09/18924 MR#: [id number] Acct: [id number] Name: HERMINIA CARDONA Rep #: [id number] : 1950 From: Verónica Trinidad Age/Sex: 68/F Location: [facility] Status: Signed Billing Codes PM Device Codes: PM Dev Interrogate (Remot 04/09/18 0929 <Electronically signed by Verónica Trinidad > Date Verónica Trinidad 04/11/18 1659<Electronically signed by Gary FALL> Angela Signature: Date (if applicable) Gary Zamora CC: EMERGENCY DEPARTMENT Observed: 04/02/2018 Status: F Source: [place] SUMMARY 10:33 PM [facility] REPOSITORY [facility] Medical Records Department [address] [place] [address] Emergency Department Summary 03/25/18 1308 MR#: [id number] Acct: [id number] Name: HERMINIA CARDONA Rep #: [id number] : 1950 68 From: Mitra Whitney PCP: Hannah Riggs DO Status: DIS IN - ER Visit Summary Date of Service: 03/25/18 Chief Complaint: [Fever lethargy] History of Present Illness: The patient is a 68 F [who presents the emergency department with fever lethargy shortness of breath. She was at her doctor's office on March 22 had blood work and urinalysis done. She was diagnosed with urinary tract infection. She was given antibiotics. She was taking those and had taken 3 doses however her last night she started with fever and chills progressively worsened over the course of the day today and weakness and lethargy. His nausea. No cough but she has felt short of breath. She has a history of atrial fibrillation and was on Eliquis but is no longer. 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 She follows with Dr. Medina for this.] Physical Examination: [] Somnolent, obese PERRL EOMI MMM NECK supple and nontender, no masses Irregular rhythm with a normal rate no murmur rub or gallop, no peripheral edema, symmetric radial pulses CTAB mild tachypnea ABDOMEN is soft and nontender, normal bowel sounds, no distension, no rebound or guarding SKIN is warm and dry no rashes Somnolent but arousable answers questions appropriately and Oriented x3, CN II-XII in tact, no motor or sensory deficits, diffuse weakness No lymphadenopathy Test Results: [] Emergency Department Course and Treatment: [Patient was given fluids and septic workup was pursued. She was given Tylenol for fever of 102.5. Patient was treated for sepsis and will be admitted. She remained stable while in the ED. Results and diagnosis were discussed with the patient, family and hospitalist.] Treatment Plan: [] Disposition: [admit] Impression: [sepsis] This note was generated with TRUECar dictation software. It may contain incorrect words, spelling, and punctuation that were not noted in review of the chart prior to signing ED Disposition - Plan for ED Patient: Disposition: Acute Care Hospital [facility] Chief Complaint: Fever What to do if you have Problems For any increased pain, shortness of breath, bleeding, nausea or vomiting, chest pain, or any unexpected problems, contact your Primary Care Provider. Call [facility] ([phone]) or report to the closest Emergency Room. Call 911 if necessary. 04/02/18 2233 <Electronically signed by Mitra Whitney > Date Mitra Whitney Cosigner Signature (If Indicated): Date CC: Hannah Riggs DO DISCHARGE SUMMARY Observed: 03/30/2018 Status: F Source: [place] 4:13 PM [facility] REPOSITORY [facility] Medical Records Department [address] [place] [address] Discharge Summary 03/30/18 1152 MR#: [id number] Acct: [id number] Name: HERMINIA CARDONA Rep #: [id number] : 1950 68 From: Billie Wen MD PCP: Hannah Riggs DO Status: DIS IN Y Location: [place] [address] Discharge Date and Diagnosis Date of Admission: 03/25/18 Date of Discharge: 03/30/18 - Primary Discharge Diagnosis Active and Suspected Problems (Last Reviewed 03/25/18 @ 14:51 by Karel Max DO) Septic shock (Acute) UTI (urinary tract infection) (Acute) - Secondary Discharge Diagnosis Chronic Problems (Last Reviewed 03/25/18 @ 14:51 by Karel Max DO) Encounter for long-term current use of high risk medication (Chronic) Encounter for long-term current use of high risk medication (Chronic) Presence of cardiac pacemaker (Chronic) Junctional rhythm (Chronic) Tachy-nolan syndrome (Chronic) Bradycardia (Chronic) Atrial fibrillation (Chronic) Atrial fibrillation with RVR (Chronic) HLD (hyperlipidemia) (Chronic) HTN (hypertension) (Chronic) Diabetes (Chronic) Hypertensive emergency without congestive heart failure (Chronic) New onset a-fib (Chronic) SDH (subdural hematoma) (Chronic) Seizure (Chronic) Hospital Course and Treatment Imaging Results: Diagnostic Data Renal Ultrasound 03/25/18 16:16 IMPRESSION: Normal size of the right kidney. Multiple echogenic foci, potential renal stones. The largest measures approximately 1 cm in the upper pole. Negative for hydronephrosis. Normal size of the left kidney. Multiple tiny echogenic foci too small to measure, potential renal stones. Negative for hydronephrosis. Unremarkable urinary bladder. Bilateral ureteral jets are demonstrated. Electronically Signed: Georgia Myers MD at 23:40 EDT , Service support , Chest X-Ray 03/25/18 17:40 IMPRESSION: Right central venous catheter ends at the atriocaval junction without complication of line placement. Mild atelectatic changes in the right middle lung zone and left lung base. Mild cardiomegaly with right atrial and ventricular pacemaker in good position. Electronically Signed: Georgia Myers MD at 17:56 EDT , Service support , KUB X-Ray 03/27/18 07:15 IMPRESSION: Feeding tube extends to the stomach in the left upper quadrant. Electronically Signed: Darrell Prado MD at 11:37 EDT , Service support , Microbiology Past 72 Hours 03/25/18 12:45 Blood Culture - Final Blood Culture (Wb) - Left Wrist No growth in 5 days. 03/25/18 13:24 Blood Culture - Final Laboratory Tests Past 24 Hrs WBC 5.6 RBC 3.95 L Hgb 10.5 L Hct 34.2 L MCV 86.6 MCH 26.6 L MCHC 30.7 L Operations: None Procedures: None Summary of Care Provided: The patient is a 68 year old F with a past medical history of hypertension, diabetes, tachybradycardia syndrome, atrial fibrillation, and seizure disorder. She was admitted by the ED on 03/25/2018 with complaint of worsening fever, lethargy and shortness of breath. She had been seen at her doctor's office on March 22 was diagnosed with a UTI based on urinalysis and started on Macrobid. She improved somewhat but order for night, started to have increasing fever, chills and lethargy. In the ED, she was found to be in septic shock with elevated lactic acid of 4.8. She received IV fluids based on sepsis protocol started on IV vancomycin and IV Zosyn pending cultures. Patient subsequently improved and was transferred out of the ICU. She was however noted to have small bowel ileus which improved with conservative management of the NG tube was passed and patient was kept N.p.o. for couple of days. Blood cultures were negative and urine culture E. coli (ESBL) and Actinomyces species. Quite some was stopped and patient was continued on Zosyn. She was switched to oral Augmentin currently developed a rash on her face right afterwards. Due to numerous drug allergies of patient, after conferring with ID, decision was made to continue patient on IV Zosyn for total of 6 days course. Patient was started on IV Zosyn on 03/25/2018 and completed a 6 day course on 03/30/2018. She was discharged home on 03/30/2018 and is to follow-up with her primary care doctor in 1 week. Of note, allergy to Augmentin was entered into the computer on account of facial rash that she developed. [] Discharge Diet: 2000 mg Sodium Diet Weight Bearing Status: Weight bearing as tolerated Call your doctor if you observe: Fever of 101 or Higher Home Medications: Medications to take at Discharge Metformin HCl [Glucophage] 1,000 mg PO BIDCM 04/08/17 Simvastatin [Zocor] 40 mg PO QHS 04/08/17 Oxybutynin Chloride [Ditropan Xl] 5 mg PO DAILY 05/20/17 Amlodipine [Norvasc] 5 mg PO DAILY 10/06/17 Hydroxyzine HCl 10 - 20 mg PO Q8H PRN PRN 10/07/17 gabapentin 300 mg capsule 300 mg PO TID 20 Days #60 01/28/18 mirtazapine 15 mg tablet 45 mg PO QHS tab 01/28/18 ramipril 5 mg capsule 5 mg PO DAILY 90 Days #90 01/28/18 Fenofibric Acid [Fenoglide] 135 mg PO DAILY 03/25/18 Lacosamide [Vimpat] 200 mg PO BID 03/25/18 Nitrofurantoin Monohyd/M-Cryst [Macrobid 100 mg Capsule] 100 mg PO BID 03/25/18 Sitagliptin Phosphate [Januvia] 50 mg PO DAILY 03/25/18 Primary Care Physician: Hannah Riggs DO [Primary Care Provider] - Please follow up with your Primary Care Physician in: one week Disposition: Home Minutes spent on discharge:: 35 Patient Condition:: Stable Medical Necessity - Tobacco Use Smoking Status: Never smoker Tobacco Use: Non-smoker Meaningful Use Info Meaningful Use Diagnoses (Choose all that apply): None applicable Code Visit Inpatient E AND M: 11582 Disch Hosp 03/30/18 1613 <Electronically signed by Billie Wen MD> Date Billie Wen MD Cosigner Signature (if applicable): Date CC: Hannah Riggs DO; Billie Wen MD Signed DISCHARGE INSTRUCTION Observed: 03/30/2018 Status: F Source: [place] 11:52 AM [facility] REPOSITORY [facility] Medical Records Department [address] [place] [address] Instructions for Home/Discharge Instructions 03/30/18 1151 MR#: [id number] Acct: [id number] Name: HERMINIA CARDONA Rep #: [id number] : 1950 68 From: Billie Wen MD PCP: Hannah Riggs DO Status: ADM IN - Discharge Diagnoses Current Active Problems: Current Active and Chronic Problems (Last Reviewed 03/25/18 @ 14:51 by Karel Max DO) Septic shock (Acute) UTI (urinary tract infection) (Acute) You will use the following diet at home:: Cardiac Your food should be the consistency of: Regular Your liquids should be the consistency of: Regular/Thin Weight Bearing Status: Weight bearing as tolerated Call your doctor if you observe: Fever of 101 or Higher Allergies/Adverse Reactions: Allergies amoxicillin [From Augmentin] Allergy (Verified 03/30/18 09:34) Rash RASH ON FACE clavulanic acid [From Augmentin] Allergy (Verified 03/30/18 09:34) Rash RASH ON FACE escitalopram [From Lexapro] Allergy (Verified 03/25/18 12:48) Rash shellfish derived Allergy (Verified 03/25/18 12:48) Unknown hydroxychloroquine [From Plaquenil] Adverse Reaction (Severe, Verified 03/25/18 12:48) Unknown perfume Adverse Reaction (Verified 03/25/18 12:48) Unknown pineapple Adverse Reaction (Verified 03/25/18 12:48) Rash quinine Adverse Reaction (Verified 03/25/18 12:48) Unknown strawberry Adverse Reaction (Verified 03/25/18 12:48) Rash Sulfa (Sulfonamide Antibiotics) Adverse Reaction (Verified 03/25/18 12:48) Unknown DUST Adverse Reaction (Uncoded 03/25/18 12:48) Unknown Medications to take at Discharge Metformin HCl [Glucophage] 1,000 mg PO BIDCM 04/08/17 Simvastatin [Zocor] 40 mg PO QHS 04/08/17 Oxybutynin Chloride [Ditropan Xl] 5 mg PO DAILY 05/20/17 Amlodipine [Norvasc] 5 mg PO DAILY 10/06/17 Hydroxyzine HCl 10 - 20 mg PO Q8H PRN PRN 10/07/17 gabapentin 300 mg capsule 300 mg PO TID 20 Days #60 01/28/18 mirtazapine 15 mg tablet 45 mg PO QHS tab 01/28/18 ramipril 5 mg capsule 5 mg PO DAILY 90 Days #90 01/28/18 Fenofibric Acid [Fenoglide] 135 mg PO DAILY 03/25/18 Lacosamide [Vimpat] 200 mg PO BID 03/25/18 Nitrofurantoin Monohyd/M-Cryst [Macrobid 100 mg Capsule] 100 mg PO BID 03/25/18 Sitagliptin Phosphate [Januvia] 50 mg PO DAILY 03/25/18 Primary Care Physician: Hannah Riggs DO [Primary Care Provider] - Please follow up with your Primary Care Physician in: one week Test Results: Test results from this visit will be discussed in further detail at your follow-up appointment, if applicable. Proposed Discharge Date: 03/30/18 03/30/18 1152 <Electronically signed by Billie Wen MD> Date Billie Wen MD CC: Silver Watson MD; Hannah Riggs DO BEDSIDE GLUCOSE Collected: 03/30/2018 Status: F Source: [place] 11:26 AM [facility] REPOSITORY TYPE CODE TESTS RESULT OUT OF REFERENCE UNITS RANGE LAB L501.080 70-110 mg/dL High BEDSIDE GLU 178 Result Comment: MANAGEMENT OF PATIENT CARE PER NURSING PROTOCOL Performed By: #### L501.080 #### [facility] [place] [address] CBC W/DIFF, AUTOMATED Collected: 03/30/2018 Status: F Source: [place] 8:35 AM [facility] REPOSITORY TYPE CODE TESTS RESULT OUT OF RANGE REFERENCE UNITS LAB L100.1000 4.4-11.0 K/mm3 Normal WBC 5.6 LAB L100.1200 4.2-5.4 M/mm3 Low RBC 3.95 LAB L100.1300 12.0-15.0 g/dl Low HGB 10.5 LAB L100.1400 37-47 % Low HCT 34.2 LAB L100.1500 81-99 fL Normal MCV 86.6 LAB L100.1600 27.0-32.0 pg Low MCH 26.6 LAB L100.1700 32-36 g/gl Low MCHC 30.7 LAB L100.1810 11.6-14.6 % High RDW CV 15.2 LAB L100.1820 35.1-43.9 fl High RDW SD 47.5 LAB L100.1900 150-450 K/mm3 Low PLT 132 LAB L100.2000 6.2-12.0 fl Normal MPV 9.4 LAB L100.2100 47-70 % Low NEUT% 43.2 LAB L100.2200 19-41 % High LY% 43.6 LAB L100.2300 0-10 % Normal MONO% 7.1 LAB L100.2400 0-5 % Normal EO% 4.8 LAB L100.2500 0-1 % Normal BASO% 0.4 LAB L100.2550 0.0-0.9 % Normal IM GRAN % 0.900 Result Comment: IG% - Immature Granulocytes (promyelocytes, myelocytes and metamyelocytes) > 1% indicates that a LEFT SHIFT is Present. LAB L100.2620 2.0-7.7 X10 3/uL Normal Absolute Neut 2.4 LAB L100.2720 0.83-4.51 X10 3/ul Normal Absolute Lymph 2.44 Performed By: #### L100.0100 #### [facility] [address] [place], [address] BASIC METABOLIC Collected: 03/30/2018 Status: F Source: [place] PROFILE ([facility]) 8:35 AM [facility] REPOSITORY TYPE CODE TESTS RESULT OUT OF RANGE REFERENCE UNITS LAB L501.0100 74-106 mg/dL High GLU 188 Result Comment: Fasting Glucose result greater than or equal to 126 mg/dL suggests DIABETES MELLITUS per A.D.A. criteria. Please note revised GLUCOSE reference range effective 2017. LAB L501.1000 7-18 mg/dL Low BUN 4 LAB L501.1100 0.55-1.02 mg/dL Normal CREAT,SERUM 0.64 Result Comment: The validity of the calculated GFR AND GFRAA in patients over 70 years has not been determined. Clinical correlation is essential. LAB L501.1110 >60 mL/min Normal EST GFR 99 Result Comment: Non- GFR Calc LAB L501.1115 >60 mL/min Normal EST GFR - AA 120 Result Comment: GFR Calc LAB L501.1255 ml/min Normal Estimated CRCL 43.77 LAB L501.1300 10-20 RATIO Low BUN/CRE 6.3 LAB L501.2200 8.5-10 mg/dL Normal .1 CA 8.6 LAB L501.5300 136-14 mmol/L Normal 5 NA 143 LAB L501.5600 3.5-5. mmol/L Normal 1 K 3.5 LAB L501.5900 98-107 mmol/L Normal CL 107 LAB L501.6100 21.0-3 mmol/L Normal 2.0 CO2 29.0 LAB L501.6200 5-15 Normal GAP 7 Performed By: #### L500.2500 #### [facility] [address] [place] [place], [address] BEDSIDE GLUCOSE Collected: 03/30/2018 Status: F Source: [place] 6:46 AM [facility] REPOSITORY TYPE CODE TESTS RESULT OUT OF REFERENCE UNITS RANGE LAB L501.080 70-110 mg/dL High BEDSIDE GLU 147 Result Comment: MANAGEMENT OF PATIENT CARE PER NURSING PROTOCOL Performed By: #### L501.080 #### [facility] Point of Care [address] [facility] [place] [address] BEDSIDE GLUCOSE Collected: 03/29/2018 Status: F Source: [place] 9:44 PM [facility] REPOSITORY TYPE CODE TESTS RESULT OUT OF REFERENCE UNITS RANGE LAB L501.080 70-110 mg/dL High BEDSIDE GLU 147 Result Comment: MANAGEMENT OF PATIENT CARE PER NURSING PROTOCOL Performed By: #### L501.080 #### [facility] Point of Care [address] [facility] [place] [address] BEDSIDE GLUCOSE Collected: 03/29/2018 Status: F Source: [place] 4:30 PM [facility] REPOSITORY TYPE CODE TESTS RESULT OUT OF RANGE REFERENCE UNITS LAB L501.080 70-110 mg/dL Normal BEDSIDE GLU 110 Result Comment: MANAGEMENT OF PATIENT CARE PER NURSING PROTOCOL Performed By: #### L501.080 #### [facility] Point of Care [address] [facility] [place] [address] 12 LEAD ELECTROCARDIOGRAM Observed: 03/29/2018 Status: F Source: [place] 3:04 PM [facility] REPOSITORY [facility] Cardiovascular Services [address] [place] [address] 12 Lead EKG 03/25/18 1512 MR#: [id number] Acct: [id number] Name: HERMINIA CARDONA Rep #: [id number] : 1950 68 From: Mehul Pollock MD Attending Dr: Billie Wen MD Status: ADM IN Ordering Dr: Mitra Whitney Date: 03/25/18 Location: U Sex: F A Admitted: 03/25/18 Test Reason : CP Blood Pressure : / mmHG Vent. Rate : 060 BPM Atrial Rate : 061 BPM P-R Int : 000 ms QRS Dur : 092 ms QT Int : 404 ms P-R-T Axes : 000 031 -83 degrees QTc Int : 404 ms Suspect unspecified pacemaker failure Junctional rhythm Low voltage QRS ST AND T wave abnormality, consider anterolateral ischemia Abnormal ECG Confirmed by MEHUL POLLOCK MD ([id number]), editorial manager DALL[place] BECERRA ([id number]) on 03/29/2018 3:04:29 PM Referred By: SOULEYMANE Confirmed By:MEHUL POLLOCK MD 03/29/18 1504 Date Mehul Pollock MD CC: Mitra Whitney; Hannah Riggs DO; Billie Wen MD Signed 12 LEAD ELECTROCARDIOGRAM Observed: 03/29/2018 Status: F Source: [place] 2:14 PM [facility] REPOSITORY [facility] Cardiovascular Services [address] [place] [address] 12 Lead EKG 03/25/18 1240 MR#: [id number] Acct: [id number] Name: HERMINIA CARDONA Rep #: [id number] : 1950 68 From: Ric Muir MD Attending Dr: Billie Wen MD Status: ADM IN Ordering Dr: Mitra Whitney Date: 03/25/18 Location: U Sex: F A Admitted: 03/25/18 Test Reason : CP Blood Pressure : / mmHG Vent. Rate : 088 BPM Atrial Rate : 127 BPM P-R Int : 000 ms QRS Dur : 104 ms QT Int : 382 ms P-R-T Axes : 000 050 -15 degrees QTc Int : 462 ms Atrial fibrillation Nonspecific ST abnormality Abnormal ECG Confirmed by RIC MUIR MD ([id number]), editorial manager [place] BECERRA ([id number]) on 03/29/2018 2:14:19 PM Referred By: SOULEYMANE Confirmed By:RIC MUIR MD 03/29/18 1414 Date Ric Muir MD CC: Mitra Whitney; Hannah Riggs DO; Billie Wen MD Signed BEDSIDE GLUCOSE Collected: 03/29/2018 Status: F Source: [place] 11:45 AM [facility] REPOSITORY TYPE CODE TESTS RESULT OUT OF REFERENCE UNITS RANGE LAB L501.080 70-110 mg/dL High BEDSIDE GLU 158 Result Comment: MANAGEMENT OF PATIENT CARE PER NURSING PROTOCOL Performed By: #### L501.080 #### [facility] Point of Care [address] [place], [place] [address] BEDSIDE GLUCOSE Collected: 03/29/2018 Status: F Source: [place] 6:47 AM [facility] REPOSITORY TYPE CODE TESTS RESULT OUT OF REFERENCE UNITS RANGE LAB L501.080 70-110 mg/dL High BEDSIDE GLU 125 Result Comment: MANAGEMENT OF PATIENT CARE PER NURSING PROTOCOL Performed By: #### L501.080 #### [facility] Point of Care [address] [place] [address] CBC W/DIFF, AUTOMATED Collected: 03/29/2018 Status: F Source: [place] 5:00 AM [facility] REPOSITORY Order Comment: SPECIMEN OBTAINED FROM LINE DRAW TYPE CODE TESTS RESULT OUT OF RANGE REFERENCE UNITS LAB L100.1000 4.4-11.0 K/mm3 Normal WBC 5.9 LAB L100.1200 4.2-5.4 M/mm3 Low RBC 3.86 LAB L100.1300 12.0-15.0 g/dl Low HGB 10.4 LAB L100.1400 37-47 % Low HCT 33.3 LAB L100.1500 81-99 fL Normal MCV 86.3 LAB L100.1600 27.0-32.0 pg Low MCH 26.9 LAB L100.1700 32-36 g/gl Low MCHC 31.2 LAB L100.1810 11.6-14.6 % High RDW CV 15.4 LAB L100.1820 35.1-43.9 fl High RDW SD 48.5 LAB L100.1900 150-450 K/mm3 Low PLT 129 LAB L100.2000 6.2-12.0 fl Normal MPV 9.1 LAB L100.2100 47-70 % Normal NEUT% 47.2 LAB L100.2200 19-41 % Normal LY% 40.7 LAB L100.2300 0-10 % Normal MONO% 5.8 LAB L100.2400 0-5 % High EO% 5.9 LAB L100.2500 0-1 % Normal BASO% 0.2 LAB L100.2550 0.0-0.9 % Normal IM GRAN % 0.200 Result Comment: IG% - Immature Granulocytes (promyelocytes, myelocytes and metamyelocytes) > 1% indicates that a LEFT SHIFT is Present. LAB L100.2620 2.0-7.7 X10 3/uL Normal Absolute Neut 2.8 LAB L100.2720 0.83-4.51 X10 3/ul Normal Absolute Lymph 2.40 Performed By: #### L100.0100 #### [facility] [address] [place], [place], [id number] BASIC METABOLIC Collected: 03/29/2018 Status: F Source: [place] PROFILE ([facility]) 5:00 AM [facility] REPOSITORY Order Comment: SPECIMEN OBTAINED FROM LINE DRAW TYPE CODE TESTS RESULT OUT OF RANGE REFERENCE UNITS LAB L501.0100 74-106 mg/dL High GLU 124 Result Comment: Fasting Glucose result from 100 to 125 mg/dL suggests IMPAIRED HOMEOSTASIS per A.D.A. criteria. Please note revised GLUCOSE reference range effective 2017. LAB L501.1000 7-18 mg/dL Low BUN 5 LAB L501.1100 0.55-1.02 mg/dL Low CREAT,SERUM 0.52 Result Comment: The validity of the calculated GFR AND GFRAA in patients over 70 years has not been determined. Clinical correlation is essential. LAB L501.1110 >60 mL/min Normal EST GFR 127 Result Comment: Non- GFR Calc LAB L501.1115 >60 mL/min Normal EST GFR - AA 153 Result Comment: GFR Calc LAB L501.1255 ml/min Normal Estimated CRCL 43.77 LAB L501.1300 10-20 RATIO Low BUN/CRE 9.7 LAB L501.2200 8.5-10 mg/dL Low .1 CA 8.1 LAB L501.5300 136-14 mmol/L Normal 5 NA 145 LAB L501.5600 3.5-5. mmol/L Normal 1 K 3.7 LAB L501.5900 98-107 mmol/L High CL 109 LAB L501.6100 21.0-3 mmol/L Normal 2.0 CO2 29.0 LAB L501.6200 5-15 Normal GAP 7 Performed By: #### L500.2500 #### [facility] [address] [place], [address] BEDSIDE GLUCOSE Collected: 03/28/2018 Status: F Source: [place] 9:43 PM [facility] REPOSITORY TYPE CODE TESTS RESULT OUT OF REFERENCE UNITS RANGE LAB L501.080 70-110 mg/dL High BEDSIDE GLU 118 Result Comment: MANAGEMENT OF PATIENT CARE PER NURSING PROTOCOL Performed By: #### L501.080 #### [facility] Point of Care [address] [place], [place] [address] BEDSIDE GLUCOSE Collected: 03/28/2018 Status: F Source: [place] 4:01 PM [facility] REPOSITORY TYPE CODE TESTS RESULT OUT OF REFERENCE UNITS RANGE LAB L501.080 70-110 mg/dL High BEDSIDE GLU 120 Result Comment: Dr Orders Followed MANAGEMENT OF PATIENT CARE PER NURSING PROTOCOL Performed By: #### L501.080 #### [facility] Point of Care [address] [place] [address] CBC W/DIFF, AUTOMATED Collected: 03/28/2018 Status: F Source: [place] 11:30 AM [facility] REPOSITORY TYPE CODE TESTS RESULT OUT OF RANGE REFERENCE UNITS LAB L100.1000 4.4-11.0 K/mm3 Normal WBC 5.3 LAB L100.1200 4.2-5.4 M/mm3 Low RBC 3.99 LAB L100.1300 12.0-15.0 g/dl Low HGB 10.7 LAB L100.1400 37-47 % Low HCT 34.1 LAB L100.1500 81-99 fL Normal MCV 85.5 LAB L100.1600 27.0-32.0 pg Low MCH 26.8 LAB L100.1700 32-36 g/gl Low MCHC 31.4 LAB L100.1810 11.6-14.6 % High RDW CV 15.1 LAB L100.1820 35.1-43.9 fl High RDW SD 47.1 LAB L100.1900 150-450 K/mm3 Low PLT 129 LAB L100.2000 6.2-12.0 fl Normal MPV 9.2 LAB L100.2100 47-70 % Normal NEUT% 54.3 LAB L100.2200 19-41 % Normal LY% 32.3 LAB L100.2300 0-10 % Normal MONO% 9.2 LAB L100.2400 0-5 % Normal EO% 3.8 LAB L100.2500 0-1 % Normal BASO% 0.2 LAB L100.2550 0.0-0.9 % Normal IM GRAN % 0.200 Result Comment: IG% - Immature Granulocytes (promyelocytes, myelocytes and metamyelocytes) > 1% indicates that a LEFT SHIFT is Present. LAB L100.2620 2.0-7.7 X10 3/uL Normal Absolute Neut 2.9 LAB L100.2720 0.83-4.51 X10 3/ul Normal Absolute Lymph 1.72 Performed By: #### L100.0100 #### [facility] [place], [place], [address] BASIC METABOLIC Collected: 03/28/2018 Status: F Source: [place] PROFILE (BMP) 11:30 AM [facility] REPOSITORY TYPE CODE TESTS RESULT OUT OF RANGE REFERENCE UNITS LAB L501.0100 74-106 mg/dL High GLU 138 Result Comment: Fasting Glucose result greater than or equal to 126 mg/dL suggests DIABETES MELLITUS per A.D.A. criteria. Please note revised GLUCOSE reference range effective 2017. LAB L501.1000 7-18 mg/dL Normal BUN 7 LAB L501.1100 0.55-1.02 mg/dL Low CREAT,SERUM 0.51 Result Comment: The validity of the calculated GFR AND GFRAA in patients over 70 years has not been determined. Clinical correlation is essential. LAB L501.1110 >60 mL/min Normal EST GFR 127 Result Comment: Non- GFR Calc LAB L501.1115 >60 mL/min Normal EST GFR - AA 154 Result Comment: GFR Calc LAB L501.1255 ml/min Normal Estimated CRCL 43.77 LAB L501.1300 10-20 RATIO Normal BUN/CRE 13.6 LAB L501.2200 8.5-10 mg/dL Low .1 CA 8.3 LAB L501.5300 136-14 mmol/L Normal 5 NA 142 LAB L501.5600 3.5-5. mmol/L Low 1 K 3.4 LAB L501.5900 98-107 mmol/L High CL 108 LAB L501.6100 21.0-3 mmol/L Normal 2.0 CO2 27.0 LAB L501.6200 5-15 Normal GAP 7 Performed By: #### L500.2500, L501.5200 #### [facility] [address] [facility] [place], [address] MAGNESIUM Collected: 03/28/2018 Status: F Source: [place] 11:30 AM [facility] REPOSITORY TYPE CODE TESTS RESULT OUT OF RANGE REFERENCE UNITS LAB L501.5200 1.6-2.6 mg/dL Normal MG 1.7 Performed By: #### L500.2500, L501.5200 #### [facility] [address] [facility] [place], [address] BEDSIDE GLUCOSE Collected: 03/28/2018 Status: F Source: [place] 11:00 AM [facility] REPOSITORY TYPE CODE TESTS RESULT OUT OF REFERENCE UNITS RANGE LAB L501.080 70-110 mg/dL High BEDSIDE GLU 124 Result Comment: MANAGEMENT OF PATIENT CARE PER NURSING PROTOCOL Performed By: #### L501.080 #### [facility] Point of Care [address] [facility] [place] [address] BEDSIDE GLUCOSE Collected: 03/28/2018 Status: F Source: [place] 6:57 AM [facility] REPOSITORY TYPE CODE TESTS RESULT OUT OF REFERENCE UNITS RANGE LAB L501.080 70-110 mg/dL High BEDSIDE GLU 156 Result Comment: MANAGEMENT OF PATIENT CARE PER NURSING PROTOCOL Performed By: #### L501.080 #### [facility] Point of Care [address] [place] [address] BEDSIDE GLUCOSE Collected: 03/27/2018 Status: F Source: [place] 10:28 PM [facility] REPOSITORY TYPE CODE TESTS RESULT OUT OF REFERENCE UNITS RANGE LAB L501.080 70-110 mg/dL High BEDSIDE GLU 148 Result Comment: MANAGEMENT OF PATIENT CARE PER NURSING PROTOCOL Performed By: #### L501.080 #### [facility] Point of Care [address] [place] [address] BEDSIDE GLUCOSE Collected: 03/27/2018 Status: F Source: [place] 5:44 PM [facility] REPOSITORY TYPE CODE TESTS RESULT OUT OF REFERENCE UNITS RANGE LAB L501.080 70-110 mg/dL High BEDSIDE GLU 168 Result Comment: MANAGEMENT OF PATIENT CARE PER NURSING PROTOCOL Performed By: #### L501.080 #### [facility] Point of Care [address] [place] [address] BEDSIDE GLUCOSE Collected: 03/27/2018 Status: F Source: [place] 11:31 AM [facility] REPOSITORY TYPE CODE TESTS RESULT OUT OF REFERENCE UNITS RANGE LAB L501.080 70-110 mg/dL High BEDSIDE GLU 158 Result Comment: MANAGEMENT OF PATIENT CARE PER NURSING PROTOCOL Performed By: #### L501.080 #### [facility] Point of Care [address] [place] [address] BEDSIDE GLUCOSE Collected: 03/27/2018 Status: F Source: [place] 7:22 AM [facility] REPOSITORY TYPE CODE TESTS RESULT OUT OF REFERENCE UNITS RANGE LAB L501.080 70-110 mg/dL High BEDSIDE GLU 188 Result Comment: Dr Orders Followed MANAGEMENT OF PATIENT CARE PER NURSING PROTOCOL Performed By: #### L501.080 #### [facility] Point of Care [address] [place] [address] ABDOMEN SINGLE VIEW Observed: 03/27/2018 Status: F Source: [place] (PORTABLE) 7:04 AM [facility] REPOSITORY [facility] Imaging Services [address] [place] [address] Abdomen Single View (Portable) MR#: [id number] Acct: [id number] Name: HERMINIA CARDONA Rep #: [id number] : 1950 F 68 From: Darrell Prado MD PCP: Hannah Riggs DO Status: ADM IN Study: Abdomen Single View (Portable) Date of Exam: 03/27/18 Exam# [id number] Ordering Dr: Silver Watson MD STUDY: X-RAY - ABDOMEN/PELVIS REASON FOR EXAM: Female, 68 years old. Tube placement TECHNIQUE: Single AP view of the abdomen / pelvis. COMPARISON: March 26, 2018. FINDINGS: Lower lung opacities on the left with consolidation. Small bilateral pleural effusions. There is pacemaker device on the left. There is cardiac enlargement. Feeding tube extends to the stomach in the left upper quadrant. There is an unremarkable bowel gas pattern. There is no demonstrated free abdominal air. The visualized liver, spleen and kidneys are grossly normal in size and morphology. Normal soft tissue structures. Degenerative change of the visualized spine. RAD/Abdomen Single View (Portable) IMPRESSION: Feeding tube extends to the stomach in the left upper quadrant. Electronically Signed: Darrell Prado MD at 11:37 EDT , Service support , CC: Silver Watson MD; Hannah Riggs DO Clerk Entry Level: Signed CBC W/DIFF, AUTOMATED Collected: 03/27/2018 Status: F Source: [place] 3:50 AM [facility] REPOSITORY TYPE CODE TESTS RESULT OUT OF RANGE REFERENCE UNITS LAB L100.1000 4.4-11.0 K/mm3 Normal WBC 4.5 LAB L100.1200 4.2-5.4 M/mm3 Low RBC 3.81 LAB L100.1300 12.0-15.0 g/dl Low HGB 10.4 LAB L100.1400 37-47 % Low HCT 33.2 LAB L100.1500 81-99 fL Normal MCV 87.1 LAB L100.1600 27.0-32.0 pg Normal MCH 27.3 LAB L100.1700 32-36 g/gl Low MCHC 31.3 LAB L100.1810 11.6-14.6 % High RDW CV 15.4 LAB L100.1820 35.1-43.9 fl High RDW SD 48.4 LAB L100.1900 150-450 K/mm3 Low PLT 112 LAB L100.2000 6.2-12.0 fl Normal MPV 10.0 LAB L100.2100 47-70 % Normal NEUT% 67.5 LAB L100.2200 19-41 % Normal LY% 22.0 LAB L100.2300 0-10 % Normal MONO% 7.6 LAB L100.2400 0-5 % Normal EO% 2.5 LAB L100.2500 0-1 % Normal BASO% 0.2 LAB L100.2550 0.0-0.9 % Normal IM GRAN % 0.200 Result Comment: IG% - Immature Granulocytes (promyelocytes, myelocytes and metamyelocytes) > 1% indicates that a LEFT SHIFT is Present. LAB L100.2620 2.0-7.7 X10 3/uL Normal Absolute Neut 3.0 LAB L100.2720 0.83-4.51 X10 3/ul Normal Absolute Lymph 0.98 Performed By: #### L100.0100 #### [facility] [address] [place], [place], [address] BASIC METABOLIC Collected: 03/27/2018 Status: F Source: [place] PROFILE (BMP) 3:50 AM [facility] REPOSITORY TYPE CODE TESTS RESULT OUT OF RANGE REFERENCE UNITS LAB L501.0100 74-106 mg/dL High GLU 176 Result Comment: Fasting Glucose result greater than or equal to 126 mg/dL suggests DIABETES MELLITUS per A.D.A. criteria. Please note revised GLUCOSE reference range effective 2017. LAB L501.1000 7-18 mg/dL Normal BUN 11 LAB L501.1100 0.55-1.02 mg/dL Normal CREAT,SERUM 0.56 Result Comment: The validity of the calculated GFR AND GFRAA in patients over 70 years has not been determined. Clinical correlation is essential. LAB L501.1110 >60 mL/min Normal EST GFR 116 Result Comment: Non- GFR Calc LAB L501.1115 >60 mL/min Normal EST GFR - AA 141 Result Comment: GFR Calc LAB L501.1255 ml/min Normal Estimated CRCL 43.77 LAB L501.1300 10-20 RATIO Normal BUN/CRE 19.8 LAB L501.2200 8.5-10 mg/dL Low .1 CA 7.3 LAB L501.5300 136-14 mmol/L Normal 5 NA 143 LAB L501.5600 3.5-5. mmol/L Normal 1 K 4.2 LAB L501.5900 98-107 mmol/L High CL 112 LAB L501.6100 21.0-3 mmol/L Normal 2.0 CO2 23.0 LAB L501.6200 5-15 Normal GAP 8 Performed By: #### L500.2500, L501.2300, L501.5200 #### [facility] [address] [place], [place], [id number] PHOSPHORUS Collected: 03/27/2018 Status: F Source: [place] 3:50 AM [facility] REPOSITORY TYPE CODE TESTS RESULT OUT OF RANGE REFERENCE UNITS LAB L501.2300 2.5-4.9 mg/dL Low PHOS 1.9 Performed By: #### L500.2500, L501.2300, L501.5200 #### [facility] [address] [place], [place], [id number] MAGNESIUM Collected: 03/27/2018 Status: F Source: [place] 3:50 AM [facility] REPOSITORY TYPE CODE TESTS RESULT OUT OF RANGE REFERENCE UNITS LAB L501.5200 1.6-2.6 mg/dL Low MG 1.4 Performed By: #### L500.2500, L501.2300, L501.5200 #### [facility] [address] [place], [place], [id number] LIVER PROFILE Collected: 03/27/2018 Status: F Source: [place] 3:50 AM [facility] REPOSITORY Order Comment: Comments: as add on test TYPE CODE TESTS RESULT OUT OF RANGE REFERENCE UNITS LAB L501.1500 6.4-8.2 g/dL Low T PROT 6.2 LAB L501.1800 3.2-5.0 g/dL Low ALB 2.4 LAB L501.1950 2.2-4.2 g/dL Normal GLOB 3.8 LAB L501.4100 15-37 U/L High AST 74 LAB L501.4305 45-117 U/L Normal ALK P 49 LAB L501.4405 13-56 U/L Low ALT 8 LAB L501.4600 0.20-1.00 mg/dL Normal T BILI 0.40 LAB L501.4700 0.00-0.30 mg/dL Normal D BILI 0.18 Performed By: #### L500.3400 #### [facility] [address] [place], [place], [id number] BEDSIDE GLUCOSE Collected: 03/26/2018 Status: F Source: [place] 9:47 PM [facility] REPOSITORY TYPE CODE TESTS RESULT OUT OF REFERENCE UNITS RANGE LAB L501.080 70-110 mg/dL High BEDSIDE GLU 138 Result Comment: Dr Menendez Followed MANAGEMENT OF PATIENT CARE PER NURSING PROTOCOL Performed By: #### L501.080 #### [facility] Point of Care [address] [place], [place] [id number] BEDSIDE GLUCOSE Collected: 03/26/2018 Status: F Source: [place] 5:39 PM [facility] REPOSITORY TYPE CODE TESTS RESULT OUT OF REFERENCE UNITS RANGE LAB L501.080 70-110 mg/dL High BEDSIDE GLU 150 Result Comment: MANAGEMENT OF PATIENT CARE PER NURSING PROTOCOL Performed By: #### L501.080 #### [facility] Point of Care [address] [place] [address] BASIC METABOLIC Collected: 03/26/2018 Status: F Source: [place] PROFILE (BMP) 1:20 PM [facility] REPOSITORY TYPE CODE TESTS RESULT OUT OF RANGE REFERENCE UNITS LAB L501.0100 74-106 mg/dL High GLU 226 Result Comment: Glucose result greater than or equal to 200 mg/dL suggests DIABETES MELLITUS per A.D.A. criteria. Please note revised GLUCOSE reference range effective 2017. LAB L501.1000 7-18 mg/dL Normal BUN 16 LAB L501.1100 0.55-1.02 mg/dL Normal CREAT,SERUM 0.70 Result Comment: The validity of the calculated GFR AND GFRAA in patients over 70 years has not been determined. Clinical correlation is essential. LAB L501.1110 >60 mL/min Normal EST GFR 89 Result Comment: Non- GFR Calc LAB L501.1115 >60 mL/min Normal EST GFR - AA 108 Result Comment: GFR Calc LAB L501.1255 ml/min Normal Estimated CRCL 43.77 LAB L501.1300 10-20 RATIO High BUN/CRE 22.9 LAB L501.2200 8.5-10 mg/dL Low .1 CA 7.7 LAB L501.5300 136-14 mmol/L Normal 5 NA 143 LAB L501.5600 3.5-5. mmol/L Normal 1 K 4.1 LAB L501.5900 98-107 mmol/L High CL 113 LAB L501.6100 21.0-3 mmol/L Normal 2.0 CO2 23.0 LAB L501.6200 5-15 Normal GAP 7 Performed By: #### L500.2500, L501.2300, L501.5200 #### [facility] [address] [facility] [place], [place], [id number] PHOSPHORUS Collected: 03/26/2018 Status: F Source: [place] 1:20 PM [facility] REPOSITORY TYPE CODE TESTS RESULT OUT OF RANGE REFERENCE UNITS LAB L501.2300 2.5-4.9 mg/dL Low PHOS 2.2 Performed By: #### L500.2500, L501.2300, L501.5200 #### [facility] [address] [place], [place], [address] MAGNESIUM Collected: 03/26/2018 Status: F Source: [place] 1:20 PM [facility] REPOSITORY TYPE CODE TESTS RESULT OUT OF RANGE REFERENCE UNITS LAB L501.5200 1.6-2.6 mg/dL Low MG 1.4 Performed By: #### L500.2500, L501.2300, L501.5200 #### [facility] [address] [facility] [place], [address] BEDSIDE GLUCOSE Collected: 03/26/2018 Status: F Source: [place] 11:56 AM [facility] REPOSITORY TYPE CODE TESTS RESULT OUT OF REFERENCE UNITS RANGE LAB L501.080 70-110 mg/dL High BEDSIDE GLU 213 Result Comment: MANAGEMENT OF PATIENT CARE PER NURSING PROTOCOL Performed By: #### L501.080 #### [facility] Point of Care [address] [place] [address] BEDSIDE GLUCOSE Collected: 03/26/2018 Status: F Source: [place] 8:19 AM [facility] REPOSITORY TYPE CODE TESTS RESULT OUT OF REFERENCE UNITS RANGE LAB L501.080 70-110 mg/dL High BEDSIDE GLU 281 Result Comment: MANAGEMENT OF PATIENT CARE PER NURSING PROTOCOL Performed By: #### L501.080 #### [facility] Point [facility] Care [address] [place] [address] CONSULTATION Observed: 03/26/2018 Status: F Source: [place] 5:34 AM [facility] REPOSITORY [facility] Medical Records Department [address] [place] [address] Consultation 03/25/18 1615 MR#: [id number] Acct: [id number] Name: HERMINIA CARDONA Rep #: [id number] : 1950 68 From: Silver Watson MD PCP: Hannah Riggs DO Status: ADM IN Y Location: ICU ICU01-1 Problem List (1) Septic shock Status: Acute (2) UTI (urinary tract infection) Status: Acute (3) Presence of cardiac pacemaker Status: Chronic (4) Junctional rhythm Status: Chronic (5) Atrial fibrillation Status: Chronic Qualifiers: Atrial fibrillation type: paroxysmal Qualified Code(s): I48.0 - Paroxysmal atrial fibrillation (6) HTN (hypertension) Status: Chronic Qualifiers: Hypertension type: essential hypertension Qualified Code(s): I10 - Essential (primary) hypertension (7) Diabetes Status: Chronic Qualifiers: Diabetes mellitus type: type 2 Diabetes mellitus prison insulin use: without oysterman use Diabetes mellitus complication status: with circulatory complication Diabetes mellitus complication detail: with peripheral angiopathy without gangrene Qualified Code(s): E11.51 - Type 2 diabetes mellitus with diabetic peripheral angiopathy without gangrene (8) Seizure Status: Chronic Reason for Consult Date of Consultation: 03/25/18 Reason for Consultation: Probable sepsis History of Present Illness: The patient is a 68 year old F, with past medical history listed below, who presented to [facility] on 03/25/2018 secondary to worsening fever, lethargy and shortness of breath. Patient had reportedly presented to her doctor's office on March 22 and received urinalysis and blood work. Patient was diagnosed with a urinary tract infection and started on Macrobid therapy. Patient reportedly improved somewhat, but overnight started to have increasing fever, chills and lethargy. Patient denies any nausea or vomiting. No cough is been reported. Patient does have a history of a pacemaker secondary to atrial fibrillation and tachybradycardia syndrome, but has not been on Eliquis therapy secondary to vaginal bleeds. Patient is on Keppra at baseline secondary to history of seizure. In the emergency room, patient was noted to be febrile. Patient has received approximately 4 L and normal saline boluses with improvement of blood pressure. On arrival to the intensive care unit, patient had complained of some chest pain that was 8 out of 10 and described as pressure sensation. Patient states this has improved throughout the hospital course. EKG showed no change from baseline. Patient reports a history of a kidney stone for over 20 years. Patient states that it would need to be surgically removed. Patient denies any recent dysuria, flank pain, hematuria or vaginal bleeding. Review of systems otherwise negative 10 systems. Past Medical History Past Medical History (Chronic Problems): Chronic Problems (Last Reviewed 03/25/18 @ 14:51 by Karel Max DO) Encounter for long-term current use of high risk medication (Chronic) Encounter for long-term current use of high risk medication (Chronic) Presence of cardiac pacemaker (Chronic) Junctional rhythm (Chronic) Tachy-nolan syndrome (Chronic) Bradycardia (Chronic) Atrial fibrillation (Chronic) Atrial fibrillation with RVR (Chronic) HLD (hyperlipidemia) (Chronic) HTN (hypertension) (Chronic) Diabetes (Chronic) Hypertensive emergency without congestive heart failure (Chronic) New onset a-fib (Chronic) SDH (subdural hematoma) (Chronic) Seizure (Chronic) Medical History: Medical History (Last Reviewed 03/25/18 @ 14:51 by Karel Max DO) Junctional rhythm (Chronic) I49.8 Tachy-nolan syndrome (Chronic) I49.5 Bradycardia (Chronic) R00.1 Atrial fibrillation (Chronic) I48.91 Atrial fibrillation with RVR (Chronic) I48.91 HLD (hyperlipidemia) (Chronic) E78.5 HTN (hypertension) (Chronic) I10 Hypertensive emergency without congestive heart failure (Chronic) I16.1 New onset a-fib (Chronic) I48.91 Allergies escitalopram [From Lexapro] Allergy (Verified 03/25/18 12:48) Rash shellfish derived Allergy (Verified 03/25/18 12:48) Unknown hydroxychloroquine [From Plaquenil] Adverse Reaction (Severe, Verified 03/25/18 12:48) Unknown perfume Adverse Reaction (Verified 03/25/18 12:48) Unknown pineapple Adverse Reaction (Verified 03/25/18 12:48) Rash quinine Adverse Reaction (Verified 03/25/18 12:48) Unknown strawberry Adverse Reaction (Verified 03/25/18 12:48) Rash Sulfa (Sulfonamide Antibiotics) Adverse Reaction (Verified 03/25/18 12:48) Unknown DUST Adverse Reaction (Uncoded 03/25/18 12:48) Unknown Home Medications: Ambulatory Orders Medication Instructions Recorded Metformin HCl [Glucophage] 1,000 mg PO BIDCM 04/08/17 Simvastatin [Zocor] 40 mg PO QHS 04/08/17 Surgical History: Surgical History (Last Reviewed 03/25/18 @ 14:51 by Karel Max DO) Encounter for long-term current use of high risk medication (Chronic) Z79.899 Presence of cardiac pacemaker (Chronic) Z95.0 History of breast surgery Z98.890 History of hysterectomy Z98.890, Z90.710 Surgical History: no surgical history Psychiatric History: No pertinent psych hx 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 Patient Problems: Active and Suspected Problems (Last Reviewed 03/25/18 @ 14:51 by Karel Max DO) Septic shock (Acute) UTI (urinary tract infection) (Acute) Objective: Chest x-ray was personally reviewed and shows no acute infiltrate. Patient does have a pacemaker noted in the left chest. Previous echocardiogram shows preserved ejection fraction of 60% with elevated pulmonary artery pressure of 31 mmHg. - Physical Exam General: Alert, Oriented x3, Cooperative, No apparent distress, - - Appears stated age. Vocalizing well. No accessory muscle use noted. HEENT: Atraumatic, PERRLA, EOMI, Normocephalic, - - No scleral icterus or injection noted. Oral: Moist Mucosa, No Gingival or Mucosal Lesions/ Ulcerations Neck: Supple, No JVD, No Nodes, Trachea Midline Lungs: Clear to auscultation, Normal air movement, No rhonchi, No wheeze, No rales Cardiovascular: Normal S1, Normal S2, Irregular Rate, Murmur - Grade 2 out of 6 systolic ejection murmur at left sternal border, No rub noted, No Gallop Abdomen: Bowel Sounds Present, Soft, Non Tender, Non-Distended, Obese, - - No flank pain Extremities: No clubbing, No cyanosis, No edema, Capillary Refill Less than 3 Seconds Skin: No rashes, No breakdown Musculoskeletal: No Tenderness to Palpation of Joints or Extremities, No Muscle Wasting Lymphatic: No Cervical, Supraclavicular, or Inguinal Adenopathy Neurological: Cranial nerves II-XII grossly intact, Neuro grossly intact, Motor Exam 5/5 strength throughout Psych/Mental Status: Alert and oriented to time, place, person, mood and affect Vital Signs Temp Pulse Resp BP Pulse Ox 37.0 C 63 16 81/51 L 94 03/25/18 15:30 03/25/18 15:45 03/25/18 15:45 03/25/18 15:45 03/25/18 15:48 Oxygen Flow Rate (L/min) 2 Oxygen Delivery Method Nasal Cannula Weight: 83.9 kg Body Mass Index (BMI) 33.8 Laboratory Tests WBC 5.2 RBC 4.61 Hgb 12.2 Hct 39.9 MCV 86.6 MCH 26.5 L WBC RBC Hgb Hct MCV MCH MCHC RDW RDW Differential Plt Count MPV Immature Gran % (Auto) Clinical Impression(s) from Imaging Studies Chest X-Ray 03/25/18 13:05 IMPRESSION: Degenerative changes, as described above. No demonstrated acute cardiopulmonary process. Electronically Signed: Darrell Prado MD at 14:04 EDT , Service support , Assessment/Plan Active and Suspected Problems (Last Reviewed 03/25/18 @ 14:51 by Karel Max DO) Septic shock (Acute) UTI (urinary tract infection) (Acute) RECOMMENDATIONS: 1. Await results of smith culture 2. Agree with healthcare associated infection antibiotics 3. Obtain renal ultrasound 4. Wean oxygen as tolerated 5. Repeat lactate, hold metformin and Januvia IMPRESSIONS: 1. Septic shock secondary to possible UTI Source of sepsis is unclear at this time. Patient does report a history of kidney stone, but urinalysis is not very significant. That being said, this may indicate a partially treated infection given recent Macrobid. Agree with healthcare associated infection antibiotics. Patient has received significant IV fluids at this time. Patient may require central line with initiation of pressor agents. Did discuss with the patient and she wants to be full CODE STATUS. Smith cultures have been sent. 2. Metabolic encephalopathy reports the patient is more listless than her baseline. Patient reportedly does have difficulties with processing complex information for her , but he feels that she is subjectively worse. This may be a result of her blood pressure. 3. Diabetes mellitus type 2 Consider discontinuation of home medications. Metformin has been associated with lactic acidosis. Patient should be placed on sliding scale insulin. Continue to monitor blood sugars every 6 hours. 4. Hyperlipidemia/tachybradycardia syndrome/A. fib/questionable seizure disorder Complicates care, management, recovery and prognosis. Cycle cardiac enzymes. Continue with telemetry monitoring. TIME: 35 minutes critical care time spent addressing patient's septic shock, metabolic encephalopathy, diabetes, review of all data and collaboration with care team. (3:30 PM to 4:30 PM) Code Visit 9xxxx: [id number] Critical care first hour 03/26/18 0534 <Electronically signed by Silver Watson MD> Date Silver Watson MD Cosigner Signature (if applicable): Date CC: Silver Watson MD; Hannah Riggs DO Signed CBC-COMPLETE BLOOD CNT Collected: 03/26/2018 Status: F Source: [place] NO DIFF 4:05 AM [facility] REPOSITORY TYPE CODE TESTS RESULT OUT OF RANGE REFERENCE UNITS LAB L100.1000 4.4-11.0 K/mm3 Normal WBC 6.1 LAB L100.1200 4.2-5.4 M/mm3 Low RBC 3.82 LAB L100.1300 12.0-15.0 g/dl Low HGB 10.6 LAB L100.1400 37-47 % Low HCT 33.7 LAB L100.1500 81-99 fL Normal MCV 88.2 LAB L100.1600 27.0-32.0 pg Normal MCH 27.7 LAB L100.1700 32-36 g/gl Low MCHC 31.5 LAB L100.1810 11.6-14.6 % High RDW CV 15.6 LAB L100.1820 35.1-43.9 fl High RDW SD 49.2 LAB L100.1900 150-450 K/mm3 Low PLT 130 LAB L100.2000 6.2-12.0 fl Normal MPV 9.8 Performed By: #### L100.0500 #### [facility] [address] [place], [address] BASIC METABOLIC Collected: 03/26/2018 Status: F Source: [place] PROFILE (BMP) 4:05 AM [facility] REPOSITORY TYPE CODE TESTS RESULT OUT OF RANGE REFERENCE UNITS LAB L501.0100 74-106 mg/dL High GLU 289 Result Comment: Glucose result greater than or equal to 200 mg/dL suggests DIABETES MELLITUS per A.D.A. criteria. Please note revised GLUCOSE reference range effective 2017. LAB L501.1000 7-18 mg/dL High BUN 19 LAB L501.1100 0.55-1.02 mg/dL Normal CREAT,SERUM 0.95 Result Comment: The validity of the calculated GFR AND GFRAA in patients over 70 years has not been determined. Clinical correlation is essential. LAB L501.1110 >60 mL/min Normal EST GFR 62 Result Comment: Non- GFR Calc LAB L501.1115 >60 mL/min Normal EST GFR - AA 76 Result Comment: GFR Calc LAB L501.1255 ml/min Normal Estimated CRCL 46.07 LAB L501.1300 10-20 RATIO Normal BUN/CRE 20.0 LAB L501.2200 8.5-10 mg/dL Low .1 CA 7.1 LAB L501.5300 136-14 mmol/L Normal 5 NA 144 LAB L501.5600 3.5-5. mmol/L Normal 1 K 4.6 LAB L501.5900 98-107 mmol/L High CL 114 LAB L501.6100 21.0-3 mmol/L Normal 2.0 CO2 23.0 LAB L501.6200 5-15 Normal GAP 7 Performed By: #### L500.2500 #### [facility] [address] [place], [address] MAGNESIUM Collected: 03/26/2018 Status: F Source: [place] 4:05 AM [facility] REPOSITORY Order Comment: Comments: as add on test TYPE CODE TESTS RESULT OUT OF RANGE REFERENCE UNITS LAB L501.5200 1.6-2.6 mg/dL Low MG 1.2 Performed By: #### L501.5200 #### [facility] [address] [place], [address] ABDOMEN SINGLE VIEW Observed: 03/26/2018 Status: F Source: [place] (PORTABLE) 3:47 AM [facility] REPOSITORY [facility] Imaging Services [address] [place] [address] Abdomen Single View (Portable) MR#: [id number] Acct: [id number] Name: HERMINIA CARDONA Rep #: [id number] : 1950 F 68 From: Tirso Ovalle PCP: Hannah Riggs DO Status: ADM IN Study: Abdomen Single View (Portable) Date of Exam: 03/26/18 Exam# [id number] Ordering Dr: Toan Jay MD STUDY: X-RAY - ABDOMEN/PELVIS REASON FOR EXAM: Female, 68 years old. Nausea and vomiting TECHNIQUE: Two AP supine views of the abdomen and pelvis. COMPARISON: None. FINDINGS: Normal visualized lung bases. There is a paralytic ileus of the small intestine with mild gaseous distention. There is no demonstrated free abdominal air. The visualized liver, spleen and kidneys are grossly normal in size and morphology. Normal soft tissue structures. Normal visualized osseous structures. RAD/Abdomen Single View (Portable) IMPRESSION: Small bowel ileus. Electronically Signed: Tirso Ovalle DO at 5:09 EDT , Service support , CC: Toan Jay MD; Hannah Riggs DO Clerk Entry Level: Signed BEDSIDE GLUCOSE Collected: 03/25/2018 Status: F Source: [place] 9:56 PM [facility] REPOSITORY TYPE CODE TESTS RESULT OUT OF REFERENCE UNITS RANGE LAB L501.080 70-110 mg/dL High BEDSIDE GLU 227 Result Comment: MANAGEMENT OF PATIENT CARE PER NURSING PROTOCOL Performed By: #### L501.080 #### [facility] Point of Care [address] [place] [address] OPERATIVE REPORT Observed: 03/25/2018 Status: F Source: [place] 5:55 PM [facility] REPOSITORY [facility] Medical Records Department [address] [place] [address] Operative Report 03/25/18 1752 MR#: [id number] Acct: [id number] Name: HERMINIA CARDONA Rep #: [id number] : 1950 68 From: Karel Max DO PCP: Hannah Riggs DO Status: ADM IN Y Location: ICU ICU01-1 Problem List (1) Septic shock Status: Acute (2) UTI (urinary tract infection) Status: Acute Operative Report Date of Procedure: 03/25/18 Procedure right IJ triple-lumen catheter Reason is for septic shock refractory to IV fluids and potential for pressor needs Consent was obtained to the patient and her . Risks were explained including blood loss and pneumothorax. They agreed to proceed. Description: Areas first to visualize with ultrasound guidance to identify the right internal jugular. Then the area was cleaned and prepped in sterile fashion. Using ultrasound guidance the the area to be cannulated was first locally anesthetized with local lysed lidocaine. Then using a modified Seldinger technique guidewire was advanced and then triple-lumen catheter was advanced over the guidewire and guidewire removed. All ports joanne and flushed equally. The catheter was then sutured in place. Follow-up x-ray shows no pneumothorax and at the just above the left atrium. Estimated blood loss was partially 5 cc. Patient tolerated the procedures and asked not to be told the steps as are being performed. Code Visit Procedures: 12561 Insert Non-tunnel CV Cath 03/25/18 1755 <Electronically signed by Karel Max DO> Date Karel Max DO CC: Silver Watson MD; Karel Max DO; Hannah Riggs DO Signed CXR FOR LINE PLACEMENT Observed: 03/25/2018 Status: F Source: [place] 5:36 PM [facility] REPOSITORY [facility] Imaging Services [address] [place] [address] CXR for Line Placement MR#: [id number] Acct: [id number] Name: HERMINIA CARDONA Rep #: [id number] : 1950 F 68 From: Georgia Myers MD PCP: Hannah Riggs DO Status: ADM IN Study: CXR for Line Placement Date of Exam: 03/25/18 Exam# [id number] Ordering Dr: Karel Max DO STUDY: X-RAY CHEST REASON FOR EXAM: Female, 68 years old. Central line placement TECHNIQUE: Single AP portable view of the chest. COMPARISON: Prior chest radiograph of March 25, 2018 FINDINGS: A right central line ends in the distal superior vena cava at the atrial caval junction. Atelectatic change in the right midlung and left lower lung. There is no demonstrated pleural abnormality. Cardiomegaly. Right atrial and ventricular pacemaker in good position. Normal visualized pulmonary arteries. There is atherosclerotic calcification of the aortic arch with tortuosity. Normal visualized ribs, clavicles, and shoulders. There is no demonstrated abnormality of the visualized soft tissue structures of the upper abdomen. RAD/CXR for Line Placement IMPRESSION: Right central venous catheter ends at the atriocaval junction without complication of line placement. Mild atelectatic changes in the right middle lung zone and left lung base. Mild cardiomegaly with right atrial and ventricular pacemaker in good position. Electronically Signed: Georgia Myers MD at 17:56 EDT , Service support , CC: Karel Max DO; Hannah Riggs DO Clerk Entry Level: Signed KIDNEY AND BLADDER Observed: 03/25/2018 Status: F Source: [place] 4:16 PM [facility] REPOSITORY [facility] Imaging Services [address] [place] [address] Kidney and Bladder MR#: [id number] Acct: [id number] Name: HERMINIA CARDONA Rep #: [id number] : 1950 F 68 From: Georgia Myers MD PCP: Hannah Riggs DO Status: ADM IN Study: Kidney and Bladder Date of Exam: 03/25/18 Exam# [id number] Ordering Dr: Silver Watson MD STUDY: RENAL ULTRASOUND - COMPLETE REASON FOR EXAM: Female, 68 years old. Sepsis. TECHNIQUE: Ultrasound evaluation of the kidneys was performed with real-time and static adams-scale imaging. COMPARISON: None. FINDINGS: RIGHT KIDNEY: Normal location of the right kidney, which is normal in size. The right kidney measures 14.2 x 5.6 x 5.3 cm. There is a normal cortex of the right kidney. The renal cortex measures 1.5 cm. There is no right renal mass or cyst. Multiple echogenic foci of the right kidney. The largest is approximately 1 cm in the superior pole. There is no right hydronephrosis. DISTAL RIGHT URETER: There is non-visualization of the distal right ureter. There is no demonstrated right ureterovesical junction calculus. There is a visualized right ureteral jet. LEFT KIDNEY: Normal location of the left kidney, which is normal in size. The left kidney measures 13.8 x 5.2 x 5.8 cm. There is a normal cortex of the left kidney. The renal cortex measures 1.4 cm. 1.2 x 0.9 x 1.2 cm cyst in the upper pole of the left kidney. Multiple tiny echogenic foci of the left kidney too small to measure. There is no left hydronephrosis. DISTAL LEFT URETER: There is non-visualization of the distal left ureter. There is no demonstrated left ureterovesical junction calculus. There is a visualized left ureteral jet. AORTA: Not visualized. I.V.C.: Not visualized. BLADDER: Unremarkable nondistended urinary bladder. US/Kidney and Bladder IMPRESSION: Normal size of the right kidney. Multiple echogenic foci, potential renal stones. The largest measures approximately 1 cm in the upper pole. Negative for hydronephrosis. Normal size of the left kidney. Multiple tiny echogenic foci too small to measure, potential renal stones. Negative for hydronephrosis. Unremarkable urinary bladder. Bilateral ureteral jets are demonstrated. Electronically Signed: Georgia Myers MD at 23:40 EDT , Service support , CC: Silver Watson MD; Hannah Riggs DO Clerk Entry Level: Signed BEDSIDE GLUCOSE Collected: 03/25/2018 Status: F Source: [place] 4:10 PM [facility] REPOSITORY TYPE CODE TESTS RESULT OUT OF REFERENCE UNITS RANGE LAB L501.080 70-110 mg/dL High BEDSIDE GLU 173 Result Comment: MANAGEMENT OF PATIENT CARE PER NURSING PROTOCOL Performed By: #### L501.080 #### [facility] Point of Care [address] [facility] [place] [address] LACTIC ACID Collected: 03/25/2018 Status: F Source: [place] 3:30 PM [facility] REPOSITORY Order Comment: Yes/No query for Sepsis Lactate Rule Y TYPE CODE TESTS RESULT OUT OF REFERENCE UNITS RANGE LAB L503.6005 0.4-2.0 mmol/L High LACTIC ACID 2.9 Result Comment: CALLED [facility] ICU WITH CRITICAL LA BY [facility] 03-25-18 AT 1633PM READ BACK BY SAME Performed By: #### L503.6005 #### [facility] [address] [place], [address] M R STAPH AUREUS Collected: 03/25/2018 Status: F Source: [place] DNA BY PCR 3:30 PM [facility] REPOSITORY TYPE CODE TESTS RESULT OUT OF RANGE REFERENCE UNITS LAB L8200.1100 Negative Normal MRSA Negative RESULT Performed By: #### L8200.1000 #### [facility] [address] [place], [address] HISTORY AND PHYSICAL Observed: 03/25/2018 Status: F Source: [place] EXAM 2:57 PM [facility] REPOSITORY [facility] Medical Records Department [address] [place] [address] History and Physical 03/25/18 1449 MR#: [id number] Acct: [id number] Name: HERMINIA CARDONA Rep #: [id number] : 1950 68 From: Karel Max DO PCP: Hannah Riggs DO Status: REG ER Y Location: ED [...] of 102.5 Fahrenheit. Patient was sent to the emergency room. Patient was found to be [...] History (Chronic Problems): Chronic Problems (Last Updated 11/22/17 @ 13:19 by Verónica Trinidad) Encounter for long-term current use of high risk medication (Chronic) Encounter for long-term current use of high risk medication (Chronic) Presence of cardiac pacemaker (Chronic) Junctional rhythm (Chronic) Tachy-nolan syndrome (Chronic) Bradycardia (Chronic) Atrial fibrillation (Chronic) Atrial fibrillation with RVR (Chronic) HLD (hyperlipidemia) (Chronic) HTN (hypertension) (Chronic) Diabetes (Chronic) Hypertensive emergency without congestive heart failure (Chronic) New onset a-fib (Chronic) SDH (subdural hematoma) (Chronic) Medical History: Medical History (Last Reviewed 03/25/18 @ 14:51 by Karel Max DO) Junctional rhythm (Chronic) I49.8 Tachy-nolan syndrome (Chronic) I49.5 Bradycardia (Chronic) R00.1 Atrial fibrillation (Chronic) I48.91 Atrial fibrillation with RVR (Chronic) I48.91 HLD (hyperlipidemia) (Chronic) E78.5 HTN (hypertension) (Chronic) I10 Hypertensive emergency without congestive heart failure (Chronic) I16.1 New onset a-fib (Chronic) I48.91 Allergies escitalopram [From Lexapro] Allergy (Verified 03/25/18 12:48) Rash shellfish derived Allergy (Verified 03/25/18 12:48) Unknown hydroxychloroquine [From Plaquenil] Adverse Reaction (Severe, Verified 03/25/18 12:48) Unknown perfume Adverse Reaction (Verified 03/25/18 12:48) Unknown pineapple Adverse Reaction (Verified 03/25/18 12:48) Rash quinine Adverse Reaction (Verified 03/25/18 12:48) Unknown strawberry Adverse Reaction (Verified 03/25/18 12:48) Rash Sulfa (Sulfonamide Antibiotics) Adverse Reaction (Verified 03/25/18 12:48) Unknown DUST Adverse Reaction (Uncoded 03/25/18 12:48) Unknown Home Medications: Ambulatory Orders Medication Instructions Recorded Metformin HCl [Glucophage] 1,000 mg PO BIDCM 04/08/17 Simvastatin [Zocor] 40 mg PO QHS 04/08/17 Surgical History: Surgical History (Last Reviewed 03/25/18 @ 14:51 by Karel Max DO) Encounter for long-term current use of high risk medication (Chronic) Z79.899 Presence of cardiac pacemaker (Chronic) Z95.0 History of breast surgery Z98.890 History of hysterectomy Z98.890, Z90.710 Surgical History: no surgical history Psychiatric History: No pertinent psych hx 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 Denies: Anorexia Eyes: Denies: Blurred vision, Double vision HEENT: Denies: Head Aches, Sinus Congestion, Sinus Drainage Cardiovascular: Denies: Chest Pain, Palpitations Respiratory: Reports: Cough. Denies: Shortness of breath at rest, Sputum production Gastrointestinal: Denies: Abdominal Pain, Nausea, Vomiting Genitourinary: Reports: Dysuria. Denies: Frequency Musculoskeletal: Denies: Joint Pain, Joint Tenderness Skin: Denies: Rash, Wounds Neurological: Denies: Balance problems, Blurred vision, Double vision, Change in Speech, Slurred speech Hematologic/ Lymphatic: Denies: Easy Bruising, Easy Bleeding, Hx of blood clot Comment: All review of systems are negative except as mentioned in the history of present illness and the other review of systems. VTE Information - Inpt Only VTE Present on Admission: No VTE Mechan Device Prophylaxis: None VTE Pharm Prophylaxis ordered?: Yes Patient Problems: Active and Suspected Problems (Last Updated 11/22/17 @ 13:19 by Verónica Trinidad) Septic shock (Acute) UTI (urinary tract infection) (Acute) - Physical Exam General: Alert, Cooperative, No apparent distress, - - Listless. HEENT: Atraumatic, Normocephalic, - - No scleral icterus Oral: Moist Mucosa, No Gingival or Mucosal Lesions/ Ulcerations Neck: No Nodes, Thyroid Normal Size and Texture Lungs: Clear to auscultation, No rhonchi, No wheeze, Diminished Cardiovascular: Regular rate, Regular Rhythm, Normal S1, Normal S2, No murmurs Abdomen: Bowel Sounds Present, Soft, Non Tender, Non-Distended, No Hepato-splenomegaly Extremities: No edema, No Calf Tenderness Skin: No rashes, No breakdown, - - Sites in left upper chest is wean intact and no fluctuance appreciated. Musculoskeletal: No Tenderness to Palpation of Joints or Extremities, No Muscle Wasting Neurological: Deep Tendon Reflexes 2+/4 and Symmetrical, Neuro grossly intact, Sensory exam intact to light touch and pain Psych/Mental Status: Normal Affect, Appropriate Vital Signs Temp Pulse [...] room and will continue with IV fluids on the floor. * Patient will be on vancomycin and Zosyn pending result of cultures * Follow results of blood cultures, check sputum cultures and urine culture. * I suspect patient will do well with IV fluids but did mention to the patient's that if her blood pressure does not improve then would have to consider pressor agents which was subsequently require a central line. * Follow-up lactic acid. Currently 4.8. Certainly this is related with her septic shock but also component may be skewed given the patient's use of metformin. 2. UTI * Continue with antibiotics as above * Follow-up urine culture * Patient only took 1 dose of Macrobid but patient was already for sick at that time for it to be done any effect even if it urine culture comes back sensitive to Macrobid. 3. Metabolic encephalopathy * Patient just more listless and her baseline. * Related with septic shock and possible urinary tract infection * Supportive management 4. Hypertension * Given the patient's hypotension at this time I will hold off on her amlodipine and lisinopril * Resume when her blood pressure permits 5. Diabetes mellitus type 2 * Metformin is being held due to the lactic acidosis * Continue with Januvia * Sliding scale insulin 6. DVT prophylaxis with Lovenox Code Visit Inpatient E AND M: 82385 Init Hosp L3 03/25/18 3084 <Electronically signed by Karel Max DO> Date Karel Max DO Cosigner Signature: Date (if applicable) CC: Karel Max DO; Hannah Keely DO Signed URINALYSIS, COMPLETE Collected: 03/25/2018 Status: F Source: [place] 1:40 PM [facility] REPOSITORY Order Comment: Order Date: 03/25/18 COLOR OF URINE MAY AFFECT DIPSTICK RESULTS. How was Urine Obtained? SANFORIZER TO SPECIFY TYPE CODE TESTS RESULT OUT OF RANGE REFERENCE UNITS LAB L400.3000 Yellow COLOR Normal Mitra LAB L400.3050 Clear Normal CLARITY Sl. Cloudy LAB L400.3200 Normal mg/dl Normal GLUCOSE, UR Normal LAB L400.3300 Negative mg/dL High BILIRUBIN URINE 1 Result Comment: COLOR OF URINE MAY AFFECT DIPSTICK RESULTS. LAB L400.3400 Negative mg/dl High KETONE UR 50 LAB L400.3465 1.002-1.030 Normal SP.GR. DIPSTX 1.015 LAB L400.3550 5.0 - 8.0 pH Normal UR 5.0 LAB L400.3600 Negative mg/dl High PROT DIPSTX 500 LAB L400.3700 Normal mg/dl Normal UROBILI Normal LAB L400.3750 Negative Normal NITRITE UR Negative LAB L400.3780 Negative /ul Normal OCCULT Negative BLOOD-UR LAB L400.3800 Negative /ul High LEUK ESTERASE 100 LAB L400.4050 0-5 /hpf Normal WBC 10-25 SEEN LAB L400.4100 0-5 /hpf Normal RBC-UA 0 SEEN LAB L400.4150 5-10 /hpf Normal SQUAM EPI 0-5 SEEN LAB L400.4300 None Seen /hpf Normal BACTERIA 1+ LAB L400.4350 <or=2+ /hpf Normal MUCUS, URINE 0 SEEN LAB L400.4900 Normal AMORPHOUS 2+ Performed By: #### L400.0001 #### [facility] [address] [place], [place], [address] Observed: 03/25/2018 Status: F Source: [place] CULTURE, URINE 1:40 PM [facility] REPOSITORY Order Date: 03/25/18 Urine Culture #1 RESULTS CALLED TO Dennis FELICIANO 03/28/18 0832 Chelsea Pang. REPORT READ BACK BY MARLENI. Copy of report sent to Infection Control Printer [id number] 03/28/18 0833 SUSHANT. #2 There are no CLSI standards for interpretation of this Drug/Organism combination. ORGANISM 1: Escherichia coli [place] Count 1000-10,000 MARKER ESBL producing Organism ORGANISM 2: Actinomyces species [place] Count 11,000-25,000 Escherichia coli: REACTION Amikacin $ <=2 S Amoxacillin/Clavulanic Acid $ 4 S Ampicillin $ >=32 R Ampicillin/Sulbactam $ 4 S Aztreonam $$$ 4 R Cefazolin $ >=64 R Cefepime $ <=1 R Ceftriaxone $ >=64 R Ciprofloxacin $ >=4 R ESBL + Ertapenim $$$ <=0.5 S Gentamicin $ <=1 S Imipenem *NF <=0.25 S Levofloxacin $ >=8 R Meropenem $ <=0.25 S Nitrofurantoin $ <=16 S Piperacillin/Tazobactam $$ <=4 S Tobramycin $ <=1 S Trimethoprim/Sulfametho $ >=320 R (NF) indicates non-formulary drug at [facility]. Approval by Infectious Disease Specialist required before non-formulary drugs may be ordered and/or dispensed. Performed By: #### M100.0650 #### [facility] [address] [place], [address] Observed: 03/25/2018 Status: F Source: [place] CULTURE, BLOOD (WB) 1:24 PM [facility] REPOS[facility] BC No growth in 5 days. Performed By: #### M200.1000 #### [facility] [address] [place], [place], [address] CHEST 1 VIEW Observed: 03/25/2018 Status: F Source: [place] (PORTABLE) 1:08 PM [facility] REPOSITORY [facility] Imaging Services [address] [place] [address] Chest 1 View (Portable) MR#: [id number] Acct: [id number] Name: HERMINIA CARDONA Rep #: [id number] : 1950 F 68 From: Darrell Prado MD PCP: Hannah Riggs DO Status: REG ER Study: Chest 1 View (Portable) Date of Exam: 03/25/18 Exam# [id number] Ordering Dr: Mitra Whitney STUDY: X-RAY CHEST REASON FOR EXAM: Female, 68 years old. Weakness TECHNIQUE: Single AP portable view of the chest. COMPARISON: November 16, 2017 FINDINGS: Stable pacemaker device on the left. There are monitoring devices. Left lower lung atelectasis. There is no demonstrated pleural abnormality. There is mild cardiac enlargement. Normal mediastinum and jannette. Normal visualized pulmonary [...] MD at 14:04 EDT , Service support , CC: Mitra Whitney; Hannah Riggs DO Clerk Entry Level: Signed COMPREHENSIVE METABOLIC Collected: 03/25/2018 Status: F Source: [place]ORNO 12:45 PM [facility] REPOSITORY TYPE CODE TESTS RESULT OUT OF RANGE REFERENCE UNITS LAB L501.0100 74-106 mg/dL High GLU 226 Result Comment: Glucose result greater than or equal to 200 mg/dL suggests DIABETES MELLITUS per A.D.A. criteria. Please note revised GLUCOSE reference range effective 2017. LAB L501.1000 7-18 mg/dL Normal BUN 16 LAB L501.1100 0.55-1.02 mg/dL High CREAT,SERUM 1.05 Result Comment: The validity of the calculated GFR AND GFRAA in patients over 70 years has not been determined. Clinical correlation is essential. LAB L501.1110 >60 mL/min Low EST GFR 56 Result Comment: Non- GFR Calc LAB L501.1115 >60 mL/min Normal EST GFR - AA 67 Result Comment: GFR Calc LAB L501.1255 ml/min Normal Estimated CRCL 43.60 LAB L501.1300 10-20 RATIO Normal BUN/CRE 15.2 LAB L501.1500 6.4-8. g/dL Normal 2 T PROT 7.8 LAB L501.1800 3.2-5. g/dL Normal 0 ALB 3.4 LAB L501.1950 2.2-4. g/dL High 2 GLOB 4.4 LAB L501.2000 0.9-2. RATIO Low 4 A/G 0.8 LAB L501.2200 8.5-10 mg/dL Normal .1 CA 8.8 LAB L501.4100 15-37 U/L High AST 44 Result Comment: Slight Hemolysis, Result may be falsely increased. LAB L501.4305 45-117 U/L Normal ALK P 58 LAB L501.4405 13-56 U/L Low ALT 7 LAB L501.4600 0.20-1.00 mg/dL Normal T BILI 0.40 LAB L501.5300 136-145 mmol/L Normal NA 140 LAB L501.5600 3.5-5.1 mmol/L Normal K 4.4 Result Comment: Slight Hemolysis, Result may be falsely increased. LAB L501.5900 98-107 mmol/L Normal CL 107 LAB L501.6100 21.0-32.0 mmol/L Low CO2 20.0 LAB L501.6200 5-15 Normal GAP 13 Performed By: #### L500.4050, L501.4010 #### [facility] [address] [facility] [facility] [place], [place], [address] TROPONIN-I Collected: 03/25/2018 Status: F Source: [place] 12:45 PM [facility] REPOSITORY TYPE CODE TESTS RESULT OUT OF RANGE REFERENCE UNITS LAB L501.4010 <0.045 ng/mL Normal < 0.015 TROPONIN-I Result Comment: TROPONIN-I EXPECTED VALUES <0.045 Negative 0.045 - 0.590 Consistent with Cardiac Damage > OR = 0.600 Critical Value Not every elevated troponin is indicative of FL. These values should be used with clinical judgement in examining the patient's clinical picture for diagnosis. To establish a diagnosis of FL versus myocardial injury, there must be a demonstrated rise and/or fall in the troponin values, in addition to ischemic symptoms, EKG changes, new regional wall motion abnormality, and/or angiographical evidence. PLEASE NOTE: REFERENCE RANGES EDITED 18 Performed By: #### L500.4050, L501.4010 #### [facility] [address] [place], [address] CBC W/DIFF, AUTOMATED Collected: 03/25/2018 Status: F Source: [place] 12:45 PM [facility] REPOSITORY TYPE CODE TESTS RESULT OUT OF RANGE REFERENCE UNITS LAB L100.1000 4.4-11.0 K/mm3 Normal WBC 5.2 LAB L100.1200 4.2-5.4 M/mm3 Normal RBC 4.61 LAB L100.1300 12.0-15.0 g/dl Normal HGB 12.2 LAB L100.1400 37-47 % Normal HCT 39.9 LAB L100.1500 81-99 fL Normal MCV 86.6 LAB L100.1600 27.0-32.0 pg Low MCH 26.5 LAB L100.1700 32-36 g/gl Low MCHC 30.6 LAB L100.1810 11.6-14.6 % High RDW CV 15.2 LAB L100.1820 35.1-43.9 fl High RDW SD 47.9 LAB L100.1900 150-450 K/mm3 Low PLT 144 LAB L100.2000 6.2-12.0 fl Normal MPV 10.4 LAB L100.2100 47-70 % High NEUT% 93.3 LAB L100.2200 19-41 % Low LY% 4.9 LAB L100.2300 0-10 % Normal MONO% 1.2 LAB L100.2400 0-5 % Normal EO% 0.2 LAB L100.2500 0-1 % Normal BASO% 0.2 LAB L100.2550 0.0-0.9 % Normal IM GRAN % 0.200 Result Comment: IG% - Immature Granulocytes (promyelocytes, myelocytes and metamyelocytes) > 1% indicates that a LEFT SHIFT is Present. LAB L100.2620 2.0-7.7 X10 3/uL Normal Absolute Neut 4.8 LAB L100.2720 0.83-4.51 X10 3/ul Low Absolute Lymph 0.25 LAB L100.4500 SMEAR Normal COMMENT Result Comment: LYMPHOPENIA NOTED LAB L100.5500 ADEQ Normal PLT ADEQUATE EST LAB L100.7000 NORM C AND NORMAL C Normal RED NORM C+C CELL MORPH Performed By: #### L100.0100 #### [facility] [address] [place], [address] PROTHROMBIN TIME W/INR Collected: 03/25/2018 Status: F Source: [place] 12:45 PM [facility] REPOSITORY TYPE CODE TESTS RESULT OUT OF RANGE REFERENCE UNITS LAB L300.4150 11.7-14.9 SECONDS Normal PROTIME 14.6 LAB L300.4200 Normal INR 1.1 Performed By: #### L300.3900, L300.4310 #### [facility] [address] [place], [address] PARTIAL THROMBOPLAST Collected: 03/25/2018 Status: F Source: [place] TIME 12:45 PM [facility] REPOSITORY TYPE CODE TESTS RESULT OUT OF REFERENCE UNITS RANGE LAB L300.4310 24.1-36.2 Seconds High PTT 37.8 Performed By: #### L300.3900, L300.4310 #### [facility] [address] [place], [address] LACTIC ACID Collected: 03/25/2018 Status: F Source: [place] 12:45 PM [facility] REPOSITORY Order Comment: Yes/No query for Sepsis Lactate Rule Y TYPE CODE TESTS RESULT OUT OF REFERENCE UNITS RANGE LAB L503.6005 0.4-2.0 mmol/L High alert LACTIC ACID 4.8 Result Comment: Critical Result(s) Called at: 13:34:37 03/25/2018 by: Gina Zamora Performed By: #### L503.6005 #### [facility] [address] [place], [address] Observed: 03/25/2018 Status: F Source: [place] CULTURE, BLOOD (WB) 12:45 PM [facility] REPOSITORY BC No growth in 5 days. Performed By: #### M200.1000 #### [facility] [place], [address] CARDIOLOGY VISIT Observed: 02/09/2018 Status: F Source: [place] REPORT 8:22 AM [facility] REPOSITORY [facility] [address] [place] [address] OFFICE VISIT Date of Service: 01/28/18 MR#: [id number] Acct: [id number] Name: HERMINIA CARDONA Rep #: [id number] : 1950 Provider: Yasmin Aiken Age/Sex: 67/F Location: [facility] Status: Signed HPI HPI Details: HERMINIA CARDONA, is a 67 F who presents to the office today for a cardiovascular follow up. Patient does have a history of hypertension, atrial fibrillation, tachybradycardia syndrome with pacemaker implant. Pt sts that she still has fatigue but feels that this is back to her baseline. She feels it is related to her medications for her seizures. She has had some palpitations but they have not lasted long. She does not have any worsening SOB. She does not have any chest pain/heaviness/tightness. She does not have lower extremity edema. Intake Vital Signs01/28/18 Height 5 ft 1 in 01/28/18 Weight: 172 lb 01/28/18 Body Mass Index (BMI) 32.5 01/28/18 Blood Pressure 138/88 Intake Visit Reasons: 3 M FU Pacu Rn Required: No Accompanied by: Is patient in pain?: No Allergies escitalopram [From Lexapro] Allergy (Verified 01/28/18 13:39) Rash shellfish derived Allergy (Verified 01/28/18 13:39) Unknown hydroxychloroquine [From Plaquenil] Adverse Reaction (Severe, Verified 01/28/18 13:39) Unknown perfume Adverse Reaction (Verified 01/28/18 13:39) Unknown pineapple Adverse Reaction (Verified 01/28/18 13:39) Rash quinine Adverse Reaction (Verified 01/28/18 13:39) Unknown strawberry Adverse Reaction (Verified 01/28/18 13:39) Rash Sulfa (Sulfonamide Antibiotics) Adverse Reaction (Verified 01/28/18 13:39) Unknown DUST Adverse Reaction (Uncoded 11/17/17 18:07) Unknown Medications Metformin HCl [Glucophage] 500 mg PO BIDCM 04/08/17 [History Confirmed 01/28/18] Multivitamins,Therapeutic [Multivitamin] 1 tab PO DAILY 04/08/17 [History Confirmed 01/28/18] Simvastatin [Zocor] 40 mg PO QHS 04/08/17 [History Confirmed 01/28/18] Oxybutynin Chloride [Ditropan Xl] 5 mg PO DAILY 05/20/17 [History Confirmed 01/28/18] Amlodipine [Norvasc] 5 mg PO DAILY 10/06/17 [History Confirmed 01/28/18] Empagliflozin [Jardiance] 10 mg PO DAILY 10/06/17 [History Confirmed 01/28/18] Hydroxyzine HCl 25 mg PO BID 10/07/17 [...] 64 PFSH Medical History Junctional rhythm (Chronic) Tachy-nolan syndrome (Chronic) Bradycardia (Chronic) Atrial fibrillation (Chronic) Atrial fibrillation with RVR (Chronic) HLD (hyperlipidemia) (Chronic) HTN (hypertension) (Chronic) Hypertensive emergency without congestive heart failure (Chronic) New onset a-fib (Chronic) Surgical History Encounter for long-term current use of high risk medication (Chronic) Presence of cardiac pacemaker (Chronic) History of breast surgery (Resolved) History of hysterectomy (Resolved) Family History Brother Heart disease Hx CABG Hypertension Diabetes Mother Hypertension Social History Smoking Status: Never smoker alcohol intake: never substance use type: does not use caffeine: No what type of physical activity do you participate in: none seatbelt use: always do you feel safe at home: Yes ROS Const Const: Positive for weakness and fatigue; negative for fever(s) or headache(s) Eyes Eyes: Negative for blind spots, loss of peripheral vision or transient loss of vision ENT ENT: Negative for headache(s) Cardio Chest Pain: No Palpitations: Yes Edema: None Muscle aches with walking: None Resp Respiratory: Negative for SOB with activity, SOB at rest, SOB orthopnea\SOB lying down or Cough GI GI: Negative nausea, vomiting, heartburn or vomiting blood/hematemesis : Negative for hematuria Musc Musc: Negative for muscle aches/ myalgia Neuro Neuro: Positive for weakness; negative for headache(s) Dashawn Hematologic/Lymphatic: Negative for easy bleeding Endo [...] Psychological: normal affect Assessment AND Plan 1. 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 She will continue with regular scheduled pacemaker interrogations. Recent pacemaker check demonstrates device is functioning appropriately. 2. Essential hypertension I10 Jonathan - HOLDEN Mayorga Blood pressure is well controlled on current medications, we do not recommend any changes at this time. 3. Pure hypercholesterolemia E78.00; E78.0 Plan - HOLDEN Mayorga These have been managed by her primary care doctor. Will not make any adjustments. 4. Atrial fibrillation with RVR I48.91 Plan - HOLDEN Mayogra Patient has not had any symptomatic recurrence. She is no longer anticoagulation due to some vaginal bleeding. We will continue to monitor her pacemaker interrogations. Recent device check did not demonstrate any arrhythmias. Plan Detail Additional Comments - HOLDEN Mayorga The above patient was discussed with Dr. Pollock, he agrees with plan of care. Thank you for allowing us to participate in patient's plan of care, if you have any questions please do not hesitate to call. This note was generated using a voice recognition system and there may be incorrect words, spelling or punctuation errors that were not noted when reviewing the office note prior to saving. 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 [address] [place] [address] Pacemaker Check Date of Service: 12/31/17 1423 MR#: [id number] Acct: [id number] Name: HERMINIA CARDONA Rep #: [id number] : 1950 From: Verónica Trinidad Age/Sex: 67/F Location: [facility] Status: Signed Comments Summary Comments: Dual Chamber Pacemaker Evaluation: 6 wk post PPM implant check completed. Interrogation shows no MS episodes and no VT episodes since 11/16/17. Left pectoral pocket/incision w/o s/s of infection or erosion. Pt offers no cardiac complaints at present. Presenting rhythm shows AAI pacing @ 60 ppm. FLOOR WAXER=2%. Battery longevity approx 8.5yrs. Lead impedances, sensing and pace/sense thresholds remain stable. Decreased AV amplitudes with adequate safety margin to preserve battery longevity. Counters cleared. Next f/u appt scheduled for in 3 mos. Device Device Date Interviewed: 12/31/17 Follow-up Location: in office Interview Reason: scheduled follow up Tariff Supervisor: Bubbly Name: Garrett MONTES DR IS-1 Model: L111 Serial #: [id number] Implant Date: 11/15/17 Year(s): 0 Implant Physician: Dr. Mehul Pollock/ [facility] Patient Characteristics Atrial Indication: sick sinus syndrome Patient Substrate: Arrhythmia Ejection fraction %: 50 to 54 (05/2015) By: Echo Underlying rhythm: Sinus rhythm Pacemaker Dependent: No Device Characteristics Device: Dual Chamber Type: Pacemaker Remote Follow-Up: Latitude Device Physical Exam Yes Incision well healed, No hematoma, Pocket not tender and No drainage Leads Lead #1 Tariff Supervisor Lead 1: Bubbly Model Lead 1: 7741 Serial# Lead 1: [id number] Date Implanted Lead 1: 11/15/17 Position Lead 1: RA Lead #2 Tariff Supervisor Lead 2: Dovray Lithera Model Lead 2: 7740 Serial# Lead 2: [id number] Date Implanted Lead 2: 11/15/17 Position Lead [...] @ PW(ms): 0.4 RV Measurements Signal Amplitude (mV): 17.8 Impedance (Ohms): 993 Threshold Voltage: 0.7 @ PW(ms): 0.4 Nolan Settings Nolan Settings Pacemaker Mode DDD Output/Sensing V/PW (ms) 3.4V@0.4 ms 1.2V@0.4 ms Sensitivity RA RV LV Comments: Billing Codes PM Device Codes: PM Dev Prog Eval, Dual Assessment AND Plan Problems 1. Presence of cardiac pacemaker Z95.0 2. Junctional rhythm I49.8 3. 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 Bradycardia R00.1 5. Paroxysmal atrial fibrillation I48.0 6. Atrial fibrillation with RVR I48.91 01/07/18 0845 <Electronically signed by Verónica Trinidad > Date Verónica Trinidad 01/11/18 1244<Electronically signed by Mehul Pollock MD> Cosigner Signature: Date (if applicable) Mehul Pollock MD CC: MICROALB:CREAT Collected: 12/21/2017 Status: F Source: [facility] 12:56 PM [facility] REPOSITORY TYPE CODE TESTS RESULT OUT OF RANGE REFERENCE UNITS LAB L501.1200 NO RANGE EST. mg/dL Normal UR CREAT 74.00 LAB L502.0500 NO RANGE EST. mg/L Normal 2410.0 MICROALBUMIN ,UR LAB L502.0600 <30 mg/g CRE mg/g CRE High 3256.8 MALB:CREAT Performed By: #### L502.0250 #### [facility] [address] [place] [address] [place], [address] PACEMAKER CHECK Observed: 11/23/2017 Status: F Source: [place] 2:51 PM [facility] REPOSITORY [facility] [address] [place] [address] Pacemaker Check Date of Service: 11/22/17 1119 MR#: [id number] Acct: [id number] Name: HERMINIA CARDONA Rep #: [id number] : 1950 From: Verónica Trinidad Age/Sex: 67/F Location: [facility] Status: Signed Comments Summary Comments: Wound Check: 1 wk post implant wound check completed. Left pectoral pocket/incision gauze dressing removed. Steri-strips intact. No new drainage noted. No hematoma noted. Mild ecchymosis noted. Pt afebrile T=97.7 degrees F temporally. Instructed to leave wound open to air and let warm water and soap from shower loosen steri-strips. Left arm restrictions reinforced until 6 wk post implant check completed. 6wk post PPM implant f/u appt scheduled. Device Device Date Interviewed: 11/22/17 Follow-up Location: in office Interview Reason: scheduled follow up Tariff Supervisor: Bubbly Name: Pidefarma SIMON BOLANOS-1 Model: L111 Serial #: [id number] Implant Date: 11/15/17 Year(s): 0 Implant Physician: Dr. Mehul Pollock/ [facility] Patient Characteristics Atrial Indication: sick sinus syndrome Patient Substrate: Arrhythmia (junctional rhythm with HR in 20's) Ejection fraction %: 50 to 54 (05/2015) By: Echo Underlying rhythm: Sinus rhythm Pacemaker Dependent: No Device Characteristics Device: Dual Chamber Type: Pacemaker Device Physical Exam Yes Steri-strips intact, No hematoma and No drainage Leads Lead #1 Tariff Supervisor Lead 1: Bubbly Model Lead 1: 7740/45 [employer] MRI Serial# Lead 1: [id number] Date Implanted Lead 1: 11/15/17 Position Lead 1: RA Lead #2 Tariff Supervisor Lead 2: Bubbly Model Lead 2: 7741/52 [employer] MRI Serial# Lead 2: [id number] Date Implanted Lead 2: 11/15/17 Position Lead 2: RV Nolan Settings Nolan Settings Pacemaker Mode DDD Lower Rate Limit (bpm) 60 Hysteresis Rate (bpm) Max Track Rate (bpm) 120 Max Sensor Rate (bpm) Max AV Delay (msec) 300 Max PV Delay (msec) Max PVARP (msec) Output/Sensing V/PW (ms) auto/0.4 auto/0.4 Sensitivity RA RV LV AGC Comments: Billing Codes Nurse, Teaching, Wound Ck (no charge): Yes Assessment AND Plan Problems 1. Presence of cardiac pacemaker Z95.0 2. 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 Junctional rhythm I49.8 4. Bradycardia R00.1 5. Paroxysmal atrial fibrillation I48.0 6. Atrial fibrillation with RVR I48.91 11/22/17 1320 <Electronically signed by Verónica Trinidad > Date Verónica Trinidad 11/23/17 1451<Electronically signed by Mehul Pollock MD> Cosigner Signature: Date (if applicable) Mehul Pollock MD CC: DISCHARGE INSTRUCTION Observed: 11/17/2017 Status: F Source: [place] 6:37 PM [facility] REPOSITORY [facility] Medical Records Department [address] [place] [address] Discharge Instruction 11/17/17 1836 MR#: [id number] Acct: [id number] Name: HERMINIA CARDONA Rep #: [id number] : 1950 67 From: Rodríguez Costa DO PCP: Hannah Riggs DO Status: PRE ER ED Disposition - Plan for ED Patient: Chief Complaint: Wound Check Instructions: ED Wound Check Post Op No Infec, ED Wound Check Post Op Bleeding Referrals: Hannah Riggs DO [Primary Care Provider] - Mehul Pollock MD [STAFF PHYSICIAN] - Keep Nicolás appointment What to do if you have Problems For any increased pain, shortness of breath, bleeding, nausea or vomiting, chest pain, or any unexpected problems, contact your Primary Care Provider. Call Doctors Registry ([phone]) or report to the closest Emergency Room. Call 911 if necessary. 11/17/17 1837 <Electronically signed by Rodríguez Costa DO> Date Rodríguez Costa DO Cosigner Signature (If Indicated): Date CC: Hannah Riggs DO EMERGENCY DEPARTMENT Observed: 11/17/2017 Status: F Source: [place] SUMMARY 6:36 PM [facility] REPOSITORY [facility] Medical Records Department [address] [place] [address] Emergency Department Summary 11/17/17 1833 MR#: [id number] Acct: [id number] Name: HERMINIA CARDONA Rep #: [id number] : 1950 67 From: Rodríguez Costa DO PCP: Hannah Riggs DO Status: PRE ER - ER Visit Summary Date of Service: 11/17/17 Chief Complaint: [Wound check with concern for bleeding] History of Present Illness: The patient is a 67 F [presents to the emergency department with her complaining of drainage from her wound where she had her pacemaker placed 2 days ago. Patient had the pacemaker placed by Dr. Pollock and apparently had some bleeding complications intraoperatively. This afternoon the noticed small amount of serous drainage from the upper outer corner of the dressing. Patient was to have the dressing removed tomorrow at home and the was concerned that if he got into bleeding complications he did not want to be at home when this dressing was taken off. Patient denies any significant pain to the site.] Physical Examination: [HEENT-PERRLA, EOMI. Cranial nerves II through XII grossly intact. TMs clear. Mucous membranes moist. No adenopathy. Cardiovascular-regular rate and rhythm without murmur or ectopy Lungs-clear to auscultation, chest wall stable without crepitus or subcu emphysema. Left chest-there is a dressing in place with some mild elevation of the dressing the left outer quadrant. There is small amount of avulsed skin in this area has some subtle weeping noted. No evidence for bleeding otherwise noted. Abdomen-normoactive bowel sounds, soft, nontender, no rebound or rigidity, no peritoneal signs. Extremities-intact 4, normal range of motion, normal pulses, atraumatic] Test Results: [None indicated] Emergency Department Course and Treatment: [Patient's dressing was removed [...] of infection] This note was generated with ev-socialation software. It may contain incorrect words, spelling, and punctuation that were not noted in review of the chart prior to signing ED Disposition - Plan for ED Patient: Chief Complaint: Wound Check Referrals: Hannah Riggs DO [Primary Care Provider] - What to do if you have Problems For any increased pain, shortness of breath, bleeding, nausea or vomiting, chest pain, or any unexpected problems, contact your Primary Care Provider. Call [facility] Registry ([phone]) or report to the closest Emergency Room. Call 911 if necessary. 11/17/17 1836 <Electronically signed by Rodríguez Costa DO> Date Rodríguez Costa DO Cosigner Signature (If Indicated): Date CC: Hannah Riggs DO DISCHARGE INSTRUCTION Observed: 11/16/2017 Status: F Source: [place] 8:50 AM [facility] REPOSITORY [facility] Medical Records Department [address] [place] [address] Instructions for Home/Discharge Instructions 11/16/17 0848 MR#: [id number] Acct: [id number] Name: HERMINIA CARDONA Rep #: [id number] : 1950 67 From: Mehul Pollock MD PCP: Hannah Riggs DO Status: REG [facility] Discharge Diet: No Restrictions Discharge Activity: May Not Drive Call your doctor if your incision/area has: Continuous Slow Oozing, Sudden Increased Bleeding, Increased Pain/ Swelling, Increased Redness, Foul Smelling Discharge, Swelling at the incision site Call your doctor if you observe: Fever of 101 or Higher, Shortness of breath, Dizziness, Fainting spells, Swelling in the ankles, Chest pain, Prolonged hiccoughing, Increased palpitations (irregular heartbeat) Change Dressing in (Days):: 3 Remove Dressing in (days):: 3 Cleanse incision/area with: Do not get Incision Wet, Keep Dressing Clean AND Dry Additional Dressing/Incision Instructions:: When dressing is removed, wash and dry incision. Keep covered with a light bandage if it is rubbing against your clothing. Do not cover the incision with an airtight bandage. Change the bandage daily. Do not remove steri strips. The strips will fall off on their own. Additional Instructions: Signs and Symptoms to Report to Your Doctor at Once - call your doctor's office or Doctor's Registry ([phone]) Call 911 or go to the nearest Emergency Department if you feel you need urgent care. *Infection (fever, increased redness or swelling at the incision site, drainage from the incision increased pain at the pacemaker site) *Shortness of breath *Dizziness *Fainting spells *Swelling in the ankles *Chest pain *Prolonged hiccoughing *Increased palpitaitons (irregular heartbeat) Medications: Take your pain medication as directed. Refer to your discharge instruction sheet [...] Adverse Reaction (Verified 10/06/17 20:37) Rash Sulfa (Sulfonamide Antibiotics) Adverse Reaction (Verified 10/06/17 20:37) Unknown DUST Adverse Reaction (Uncoded 10/06/17 20:37) Unknown Medications to take at Discharge Alendronate Sodium [Fosamax] 70 mg PO PRECIADO 04/08/17 Fexofenadine HCl [[facility] Allergy] 30 mg PO DAILY 04/08/17 Metformin HCl [Glucophage] 500 mg PO BIDCM 04/08/17 Multivitamins,Therapeutic [Multivitamin] 1 tab PO DAILY 04/08/17 Simvastatin [Zocor] 40 mg PO QHS 04/08/17 Mirtazapine [...] #6 tab 11/08/17 Primary Care Physician: Hannah Riggs DO [Primary Care Provider] - When: pacer clinic 11/22/17 at 10 am Proposed Discharge Date: 11/16/17 11/16/17 0850 <Electronically signed by Mehul Pollock MD> Date Mehul Pollock MD CC: Hannah Riggs DO CHEST 1 VIEW Observed: 11/16/2017 Status: F Source: [place] 12:03 AM [facility] REPOSITORY [facility] Imaging Services [address] [place] [address] Chest 1 View MR#: [id number] Acct: [id number] Name: HERMINIA CARDONA Rep #: [id number] : 1950 F 67 From: Martha Delgado MD PCP: Hannah Riggs DO Status: [facility] Study: Chest 1 View Date of Exam: 11/16/17 Exam# [id number] Ordering Dr: Mehul Pollock MD STUDY: X-RAY [...] There is degenerative osteoarthritis of the bilateral shoulders. There is no demonstrated abnormality of the visualized soft tissue structures of the upper abdomen. RAD/Chest 1 View IMPRESSION: There is no evidence of pneumothorax. Electronically Signed: Martha Delgado MD at 7:15 EDT Tel , Service support , CC: Mehul Pollock MD; Hannah Riggs DO Clerk Entry Level: Signed CHEST PA AND LATERAL Observed: 11/16/2017 Status: F Source: [place] 12:00 AM [facility] Imaging Services [address] [place] [address] Chest PA and Lateral MR#: [id number] Acct: [id number] Name: HERMINIA CARDONA Rep #: [id number] : 1950 F 67 From: Mallorie Bolaños MD PCP: Hannah Riggs DO Status: [facility] Study: Chest PA and Lateral Date of Exam: 11/16/17 Exam# [id number] Ordering Dr: Mehul Pollock MD STUDY: X-RAY CHEST REASON FOR EXAM: Female, 67 years old. Status post pacemaker insertion, assessment for pneumothorax. TECHNIQUE: AP inspiratory and expiratory upright and lateral views of the chest. COMPARISON: 10/13/2017 FINDINGS: There is a left subclavian approached multilead permanent pacemaker with tips in the right right atrium and right ventricle. There is no demonstrated pneumothorax. There is low inspiratory level. There are atelectatic changes in the basis There is no demonstrated pleural abnormality. There is stable mild cardiac enlargement. Normal mediastinum and jannette. Normal visualized pulmonary arteries. Normal visualized aortic arch and descending thoracic aorta. There are diffuse degenerative changes of the visualized thoracic spine. Normal visualized ribs, clavicles, and shoulders. There is no demonstrated abnormality of the visualized soft tissue structures of the upper abdomen. RAD/Chest PA and Lateral IMPRESSION: Pacemaker appears in good position, no pneumothorax. Stable cardiac enlargement, degenerative changes. Low lung volumes with bibasilar atelectasis suspected. Electronically Signed: Mallorie Bolaños MD at 7:34 EDT , Service support , CC: Mehul Pollock MD; Hannah Riggs DO Clerk Entry Level: Signed BEDSIDE GLUCOSE Collected: 11/15/2017 Status: F Source: [place] 3:06 PM [facility] REPOSITORY TYPE CODE TESTS RESULT OUT OF REFERENCE UNITS RANGE LAB L501.080 70-110 mg/dL High BEDSIDE GLU 144 Result Comment: MANAGEMENT OF PATIENT CARE PER NURSING PROTOCOL Performed By: #### L501.080 #### [facility] Point of Care [address] [place] [address] OFFICE VISIT REPORT Observed: 11/05/2017 Status: F Source: [place] 3:22 PM [facility] REPOSITORY [facility] [place] [address] OFFICE VISIT Date of Service: 11/05/17 MR#: [id number] Acct: [id number] Patient: HERMINIA CARDONA Jaskaran Rep #: [id number] : 1950 Provider: Verónica Trinidad Age/Sex: 67/F Location: [facility] Status: Signed Comments Summary Comments: PPM implant instructions, written and verbal, given to patient and spouse including post-implant wound check appt. All questions answered and pt and spouse verbalize understanding. Device Device Date Interviewed: 11/05/17 Follow-up Location: in office Interview Reason: scheduled follow up Billing Codes Nurse, Teaching, Wound Ck (no charge): Yes Assessment AND Plan Problems 1. Junctional rhythm I49.8 2. Bradycardia R00.1 3. 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 Orders Orders: 11/05/17 1053 <Electronically signed by Verónica Trinidad > Date Verónica Trinidad 11/05/17 1522<Electronically signed by Mehul Pollock MD> Cosigner Signature: Date (if applicable) Mehul Pollock MD CC: CBC-COMPLETE BLOOD CNT Collected: 11/05/2017 Status: F Source: [place] NO DIFF 10:49 AM [facility] REPOSITORY TYPE CODE TESTS RESULT OUT OF RANGE REFERENCE UNITS LAB L100.1000 4.4-11.0 K/mm3 Normal WBC 8.0 LAB L100.1200 4.2-5.4 M/mm3 Normal RBC 4.90 LAB L100.1300 12.0-15.0 g/dl Normal HGB 13.2 LAB L100.1400 37-47 % Normal HCT 41.8 LAB L100.1500 81-99 fL Normal MCV 85.3 LAB L100.1600 27.0-32.0 pg Low MCH 26.9 LAB L100.1700 32-36 g/gl Low MCHC 31.6 LAB L100.1810 11.6-14.6 % High RDW CV 14.9 LAB L100.1820 35.1-43.9 fl High RDW SD 45.7 LAB L100.1900 150-450 K/mm3 Normal PLT 205 LAB L100.2000 6.2-12.0 fl Normal MPV 10.3 Performed By: #### L100.0500, L300.3900 #### [facility] [address] [place], [place], [address] PROTHROMBIN TIME W/INR Collected: 11/05/2017 Status: F Source: [place] 10:49 AM [facility] REPOSITORY TYPE CODE TESTS RESULT OUT OF RANGE REFERENCE UNITS LAB L300.4150 11.7-14.9 SECONDS Normal PROTIME 13.3 LAB L300.4200 Normal INR 1.0 Performed By: #### L100.0500, L300.3900 #### [facility] [address] [place], [address] URINALYSIS, COMPLETE Collected: 11/05/2017 Status: F Source: [place] 10:49 AM [facility] REPOSITORY Order Comment: How was Urine Obtained? SANFORIZER TO SPECIFY TYPE CODE TESTS RESULT OUT OF RANGE REFERENCE UNITS LAB L400.3000 Yellow COLOR Normal Yellow LAB L400.3050 Clear Normal CLARITY Sl. Cloudy LAB L400.3200 Normal mg/dl High GLUCOSE, UR 250 LAB L400.3300 Negative mg/dL Normal BILIRUBIN URINE Negative LAB L400.3400 Negative mg/dl Normal KETONE UR Negative LAB L400.3465 1.002-1.030 Normal SP.GR. DIPSTX 1.015 LAB L400.3550 5.0 - 8.0 pH UR Normal 6.0 LAB L400.3600 Negative mg/dl High PROT DIPSTX 100 LAB L400.3700 Normal mg/dl Normal UROBILI Normal LAB L400.3750 Negative Normal NITRITE UR Negative LAB L400.3780 Negative /ul High 10 OCCULT BLOOD-UR LAB L400.3800 Negative /ul High LEUK ESTERASE 100 LAB L400.4050 0-5 /hpf WBC Normal 10-25 SEEN LAB L400.4100 0-5 /hpf 0 Normal RBC-UA SEEN LAB L400.4150 5-10 /hpf SQUAM Normal EPI 5-10 SEEN LAB L400.4300 None Seen /hpf Normal BACTERIA RARE LAB L400.4350 <or=2+ /hpf 0 Normal MUCUS, URINE SEEN Performed By: #### L400.0001, L500.2500 #### [facility] [address] [place], [address] BASIC METABOLIC Collected: 11/05/2017 Status: F Source: [place] PROFILE (BMP) 10:49 AM [facility] REPOSITORY TYPE CODE TESTS RESULT OUT OF RANGE REFERENCE UNITS LAB L501.0100 74-106 mg/dL High GLU 196 Result Comment: Fasting Glucose result greater than or equal to 126 mg/dL suggests DIABETES MELLITUS per A.D.A. criteria. Please note revised GLUCOSE reference range effective 2017. LAB L501.1000 7-18 mg/dL High BUN 22 LAB L501.1100 0.55-1.02 mg/dL Normal CREAT,SERUM 0.76 Result Comment: The validity of the calculated GFR AND GFRAA in patients over 70 years has not been determined. Clinical correlation is essential. LAB L501.1110 >60 mL/min Normal EST GFR 82 Result Comment: Non- GFR Calc LAB L501.1115 >60 mL/min Normal EST GFR - AA 99 Result Comment: GFR Calc LAB L501.1300 10-20 RATIO High BUN/CRE 29.1 LAB L501.2200 8.5-10.1 mg/dL CA Normal 8.7 LAB L501.5300 136-145 mmol/L NA Normal 139 LAB L501.5600 3.5-5.1 mmol/L K Normal 4.7 Result Comment: Slight Hemolysis, Result may be falsely increased. LAB L501.5900 98-107 mmol/L Normal CL 104 LAB L501.6100 21.0-32.0 mmol/L Normal CO2 29.0 LAB L501.6200 5-15 Normal 6 GAP Performed By: #### L400.0001, L500.2500 #### [facility] [address] [place], [address] 12 LEAD EKG PERFORMED Observed: 11/05/2017 Status: F Source: [place] BY [facility] 10:29 AM [facility] REPOSITORY [facility] [address] [place] [address] 12 Lead EKG performed by [facility] 11/05/17 1027 MR#: [id number] Acct: [id number] Name: HERMINIA CARDONA Rep #: [id number] : 1950 67 From: Mehul Pollock MD Attending Dr: Verónica Trinidad Status: DEP AMB Ordering Dr: Mehul Pollock MD Date: 11/05/17 Location: [facility] Sex: F A Admitted: BMS/12 Lead EKG performed by [facility] ECG Report Interpretation Sinus Rhythm Low voltage in limb leads. - Diffuse nonspecific T-abnormality. ABNORMAL Electronically signed on 11/18/2017 at 13:49 by Mehul Pollock 11/18/17 1350 Date Mehul Pollock MD CC: Hannah Riggs DO Date Dictated: 11/05/17 1027 Date Transcribed: 11/05/17 1027 Clerk Entry Level: CO Signed MISCELLANEOUS LAB Collected: 11/03/2017 Status: F Source: [place] PROCEDURE 12:44 PM [facility] REPOSITORY Order Comment: Comments: LACOSAMIDE [id number] RED/RT Test(s) Ordered: LACOSAMIDE [id number] RED/RT TYPE CODE TESTS RESULT OUT OF RANGE REFERENCE UNITS LAB L801.1541 Normal [facility] LAB TEST Result Comment: TEST RESULT LIMITS Lacosamide Lacosamide 13.0 High ug/mL 5.0 - 10.0 Limit of Detection 0.5 Mean plasma concentrations following maintenance dose 200 mg/day 4.99 +/- 2.51 ug/mL 400 mg/day 9.35 +/- 4.22 ug/mL 600 mg/day 12.46 +/- 5.60 ug/mL Please Note: This test was developed and its performance characteristics determined by [facility]. It has not been cleared or approved by the Food and Drug Administration. [facility]. ORIGINAL REPORT ON FILE IN LAB CONTAINS ADDITIONAL TEST SITE INFORMATION. Performed By: #### L801.1541 #### [facility] [address] [place], [address] CARDIOLOGY VISIT Observed: 10/29/2017 Status: F Source: [facility] REPORT 3:24 PM [facility] REPOSITORY [facility] [address] [place] [address] OFFICE VISIT Date of Service: 10/29/17 MR#: [id number] Acct: [id number] Name: HERMINIA CARDONA Rep #: [id number] : 1950 Provider: Yasmin Aiken Age/Sex: 67/F Location: [facility] Status: Signed HPI HPI Details: HERMINIA CARDONA, is a 67 F who presents to the office today for a hospital follow-up. Patient does have a history of hypertension, atrial fibrillation, tachybradycardia syndrome. Patient was in the hospital approximately 2-3 weeks ago for vaginal bleeding. She was on Eliquis for her atrial fibrillation. This was discontinued. She was started on an estrogen cream. However during that time when she was in the hospital she was noted to be in a junctional rhythm with a heart rate of 38. Her metoprolol was discontinued. Patient states that since she has been home she is continuing to note occasional low heart rate readings were heart rates are in the 30s and 40s. During that time she does feel fatigued. She does not have any chest discomfort or heaviness. She does not have any worsening shortness of breath. She is not aware of any irregular heartbeats. She does not have any near-syncope or syncope. She does have some lightheadedness and dizziness but is uncertain if this is related to her recent head injury where she had a intracranial bleed that she had in February 2017. She is still recovering from this. She does not have any lower extremity edema is. Intake Vital Signs10/29/17 Height 5 ft 1 in 10/29/17 Weight: 172 lb 10/29/17 Body Mass Index (BMI) 32.5 10/29/17 Blood Pressure 160/80 10/29/17 Blood Pressure Location Lt brachial Intake Visit Reasons: 4 M FU Pacu Rn Required: No Accompanied by: Is patient in pain?: No Allergies escitalopram [From Lexapro] Allergy (Verified 10/06/17 20:37) Rash shellfish derived Allergy (Verified 10/06/17 20:37) Unknown hydroxychloroquine [From Plaquenil] Adverse Reaction (Severe, Verified 10/27/17 07:41) Unknown perfume Adverse Reaction (Verified 10/06/17 20:37) Unknown pineapple Adverse Reaction (Verified 10/06/17 20:37) Rash quinine Adverse Reaction (Verified 10/06/17 20:37) Unknown strawberry Adverse Reaction (Verified 10/06/17 20:37) Rash Sulfa (Sulfonamide Antibiotics) Adverse Reaction (Verified 10/06/17 20:37) Unknown DUST Adverse Reaction (Uncoded 10/06/17 20:37) Unknown Medications Alendronate Sodium [Fosamax] 70 mg PO PRECIADO 04/08/17 [History Confirmed 10/27/17] Fexofenadine HCl [[facility] Allergy] 30 mg PO DAILY 04/08/17 [History Confirmed 10/27/17] Metformin HCl [Glucophage] 500 mg PO BIDCM 04/08/17 [History Confirmed 10/27/17] Multivitamins,Therapeutic [Multivitamin] 1 tab PO DAILY 04/08/17 [History Confirmed 10/27/17] Simvastatin [Zocor] 40 mg PO QHS 04/08/17 [History Confirmed 10/27/17] Mirtazapine 30 mg PO QHS 05/20/17 [History Confirmed 10/27/17] Oxybutynin Chloride [Ditropan Xl] 5 mg PO DAILY 05/20/17 [History Confirmed 10/27/17] Amlodipine [Norvasc] 5 mg PO DAILY 10/06/17 [History Confirmed 10/27/17] Empagliflozin [Jardiance] 10 mg PO DAILY 10/06/17 [History Confirmed 10/29/17] Hydroxyzine HCl 25 mg PO BID 10/07/17 [History Confirmed 10/27/17] Lacosamide [Vimpat] 200 mg PO BID 10/13/17 [History Confirmed 10/13/17] lacosamide 150 mg tablet 150 mg PO BID 10/27/17 [History Confirmed 10/27/17] ranitidine 150 mg tablet 150 mg PO BID tab 10/27/17 [History Confirmed 10/27/17] PFSH Medical History Tachy-nolan syndrome (Chronic) Bradycardia (Chronic) Atrial fibrillation (Chronic) Atrial fibrillation with RVR (Chronic) HLD (hyperlipidemia) (Chronic) HTN (hypertension) (Chronic) Hypertensive emergency without congestive heart failure (Chronic) New onset a-fib (Chronic) Encounter for long-term current use of high risk medication (Chronic) Surgical History History of breast surgery (Resolved) History of hysterectomy (Resolved) Family History Brother Heart disease Hx CABG Hypertension Diabetes Mother Hypertension Social History Smoking Status: Never smoker alcohol intake: never substance use type: does not use caffeine: No what type of physical activity do you participate in: none seatbelt use: always do you feel safe at home: Yes ROS Const Const: Positive for weakness and fatigue; negative for fever(s) or headache(s) Eyes Eyes: Negative for blind spots, loss of peripheral vision or transient loss of vision ENT ENT: Positive for dizziness; negative for headache(s), tinnitus or Nosebleed/epistaxis Cardio Chest Pain: No Palpitations: No Edema: None Muscle aches with walking: None Resp Respiratory: Negative for SOB with activity, SOB at rest, SOB orthopnea\SOB lying down or Cough GI GI: Negative nausea, vomiting, heartburn or vomiting blood/hematemesis : Negative for hematuria Musc Musc: Negative for muscle aches/ myalgia Neuro Neuro: Positive for weakness, dizziness and lightheadedness; negative for headache(s), near [...] movement Auscultation: Bilateral: Clear to Auscultation Cardio Palpation: [...] Essential hypertension I10 Plan Slightly elevated today however at home her blood pressure readings have been normotensive. We will continue to monitor. Will not make any adjustments. 2. Paroxysmal atrial fibrillation I48.0 Plan Patient is currently not anticoagulated due to recent vaginal eating she is not on a rate limiting medication due to her junctional rhythm. Will monitor closely. 3. 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 Plan With patient's low heart rate readings in her feelings of fatigue concerned about tachybradycardia syndrome. Would like to further evaluate with a 30 day event monitor as she is no longer on a beta-wiley. We will continue to follow with patient closely. Plan Detail Additional Comments Thank you for allowing us to participate in patient's plan of care, if you have any questions please do not hesitate to call. This note was generated using a voice recognition system and there may be incorrect words, spelling or punctuation errors that were not noted when reviewing the office note prior to saving. 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/MMM) 10/29/17 (30 day event monitor) Coding Level of Care Code Off vis,est,level 4 Diagnoses Essential hypertension I10 Hypertension type: essential hypertension Paroxysmal atrial fibrillation I48.0 Atrial fibrillation type: paroxysmal 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 Coding Level of Care Code Off vis,est,level 4 Diagnoses Essential hypertension I10 Hypertension type: essential hypertension Paroxysmal atrial fibrillation I48.0 Atrial fibrillation type: paroxysmal 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 10/29/17 1524 <Electronically signed by Yasmin HATCH> Date Yasmin Miller Signature: Date (if applicable) CC: MICROALB:CREAT Collected: 10/21/2017 Status: F Source: [facility] RATIO,RANDOM UR 1:53 PM [facility] REPOSITORY TYPE CODE TESTS RESULT OUT OF RANGE REFERENCE UNITS LAB L501.1200 NO RANGE EST. mg/dL Normal UR CREAT 70.80 LAB L502.0500 NO RANGE EST. mg/L Normal 235.0 MICROALBUMIN ,UR LAB L502.0600 <30 mg/g CRE mg/g CRE High 331.9 MALB:CREAT Performed By: #### L502.0250 #### [facility] [address] [place], [address] DISCHARGE INSTRUCTION Observed: 10/13/2017 Status: F Source: [place] 5:10 PM [facility] REPOSITORY [facility] Medical Records Department [address] [place] [address] Discharge Instruction 10/13/17 1624 MR#: [id number] Acct: [id number] Name: HERMINIA CARDONA Rep #: [id number] : 1950 67 From: Wenceslao Marley MD PCP: Hannah Riggs DO Status: DEP ER ED Disposition - Plan for ED Patient: Disposition: Home or Assisted Living Chief Complaint: General Illness Instructions: ED Fever Control Referrals: Hannah Riggs DO [Primary Care Provider] - As soon [...] your Primary Care Provider. Call [facility] ([phone]) or report to the closest Emergency Room. Call 911 if necessary. 10/13/17 1710 <Electronically signed by Wenceslao Marley MD> Date Wenceslao Marley MD Cosigner Signature (If Indicated): Date CC: Hannah Riggs DO EMERGENCY DEPARTMENT Observed: 10/13/2017 Status: F Source: [place] SUMMARY 5:09 PM [facility] REPOSITORY [facility] Medical Records Department [address] [place] [address] Emergency Department Summary 10/13/17 1240 MR#: [id number] Acct: [id number] Name: HERMINIA CARDONA Rep #: [id number] : 1950 67 From: Wenceslao Marley MD PCP: Hannah Riggs DO Status: DEP ER - ER Visit Summary Date of Service: 10/13/17 Chief Complaint: Cough, fever and chills History of Present Illness: The patient is a 67 F past medical history significant for hemorrhagic CVA, jqi-ynyaxum-odnziyuqh diabetes, hypertension, A. fib, seizure disorder. Patient was just started on antibiotics for UTI a day or so ago. Today presented her primary care physician's office Dr. Angeles Riggs ER and called me prior to patient's presentation. Physical Examination: Older female currently no acute distress. Temperature 991. Pulse is 95% room air no signs of hypoxia. She does not look dehydrated. HEENT exam normal. Moist mucous membranes. Neck nontender no lymphadenopathy. Lungs dry cough but no rales, rhonchi. Few scattered [...] with mild dehydration. Lactic acid was slightly elevated 2.8. Urine cultures are pending. Chest x-ray shows no acute abnormality mild cardiomegaly read both by myself and the radiologist. Emergency Department Course and Treatment: Patient with fever and chills. Currently being treated for UTI. Will be evaluated for other causes of infection also. Treatment Plan: I spoke to the hospitalist who will be down and evaluate the patient for possible admission and observation versus discharge to home. Disposition: This did come down to evaluate the patient emergency department. He and the patient and family are comfortable with her being discharged home Impression: Acute fever and chills Mildly elevated lactic acid History of prior intracranial bleed. History of CVA. With seizure disorder. History of obd-sewnoxq-vcuuqczmh diabetes. History of A. fib This note was generated with ev-socialation software. It may contain incorrect words, spelling, and punctuation that were not noted in review of the chart prior to signing ED Disposition - Plan for ED Patient: Chief Complaint: General Illness Referrals: Hannah Riggs DO [Primary Care Provider] - What to do if you have Problems For any increased pain, shortness of breath, bleeding, nausea or vomiting, chest pain, or any unexpected problems, contact your Primary Care Provider. Call [facility] ([phone]) or report to the closest Emergency Room. Call 911 if necessary. 10/13/17 4683 <Electronically signed by Wenceslao Marley MD> Date Wenceslao Marley MD Cosigner Signature (If Indicated): Date CC: Hannah Riggs DO CONSULTATION Observed: 10/13/2017 Status: F Source: [place] 4:25 PM [facility] REPOSITORY [facility] Medical Records Department [address] [place] [address] Consultation 10/13/17 1608 MR#: [id number] Acct: [id number] Name: HERMINIA CARDONA Rep #: [id number] : 1950 67 From: Noe Kwok MD PCP: Hannah Riggs DO Status: REG ER Y Location: ED Problem List (1) Febrile illness, acute Status: Acute Reason for Consult Date of Consultation: 10/13/17 Reason for Consultation: Febrile illness, malaise [...] nausea, vomiting, or diarrhea. She has decreased appetite. Work up was done, which were essentially unremarkable with normal WBC at 8.9, normal renal function, and questionable UA. Even before antibiotics, she did not have any urinary symptoms. She was recently discharged from hospital after she had vaginal bleeding and bradycardia with atrial fibrillation, discharged on 10/08/17. She did well for a couple of days, then started to feel ill for past 2 days. Past Medical History Past Medical History (Chronic Problems): Chronic Problems Atrial fibrillation (Chronic) HLD (hyperlipidemia) (Chronic) HTN (hypertension) (Chronic) Diabetes (Chronic) SDH (subdural hematoma) (Chronic) Allergies escitalopram [From Lexapro] Allergy (Verified 10/06/17 20:37) Rash shellfish derived Allergy (Verified 10/06/17 20:37) Unknown perfume Adverse Reaction (Verified 10/06/17 20:37) Unknown pineapple Adverse Reaction (Verified 10/06/17 20:37) Rash quinine Adverse Reaction (Verified 10/06/17 20:37) Unknown strawberry Adverse Reaction (Verified 10/06/17 20:37) Rash Sulfa (Sulfonamide Antibiotics) Adverse Reaction (Verified 10/06/17 20:37) Unknown DUST Adverse Reaction (Uncoded 10/06/17 20:37) Unknown Home Medications: Ambulatory Orders Medication Instructions Recorded Alendronate Sodium [Fosamax] 70 mg PO PRECIADO 04/08/17 Surgical History: no surgical history Psychiatric History: No pertinent psych hx 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 HEENT: Unremarkable. Patient denied of any dizziness, chronic headache, blurred vision, double vision, dry mouth, or nasal congestion. CV/respiratory: There is no exertional shortness of breath, chest pain, palpitation, wheezing, cough, claudication, cold feet, or peripheral edema. GI: Patient denied any abdominal pain, nausea, vomiting, diarrhea, constipation, melena, or hematochezia. : Patient denied any significant urinary symptoms. 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 Psychological: Unremarkable. . Endocrine: Unremarkable. Musculoskeletal: Unremarkable. Patient Problems: Active and Suspected Problems Febrile illness, acute (Acute) Objective: In general, patient is a well-nourished and developed adult. HEENT: Head is atraumatic, and normocephalic. Pupils are equal, round, and reactive to light and accommodations. Neck is supple. There is no lymphadenopathy, or thyromegaly. Oral mucosa is pink, and moist. There are no lesions. Heart: Auscultation is normal with regular rhythm and rate. There is no extra heart sounds, or murmurs. S1 and S2 are present. Point of maximal impulse is not displaced. Lungs: Lungs are clear to auscultation bilaterally. There is no wheezing, or crackles. Abdomen: Abdominal wall is non-tender, and non-distended. There is no palpable mass or organomegaly. Normoactive bowel sounds are present. Extremities: There is no cyanosis or clubbing. Peripheral pulses are palpable. There is no [...] H 110/59 L 96 10/13/17 12:13 10/13/17 16:05 10/13/17 16:05 10/13/17 16:05 10/13/17 16:05 Oxygen Delivery Method Room Air Weight: 168 lb Body Mass Index (BMI) 31.7 Finger Stick Blood Glucose 129 Microbiology Past 72 Hours 10/13/17 13:08 Influenza Types A,B Direct FA (NICOLA) - Final Mucosa - Nose Laboratory Tests Past 24 Hrs WBC 8.9 RBC 4.16 L Hgb 11.4 L Hct 36.0 L MCV 86.5 MCH 27.4 MCHC 31.7 L RDW 14.9 H RDW Differential 45.4 H WBC RBC Hgb Hct MCV MCH MCHC RDW RDW Differential Plt Count MPV Immature Gran % (Auto) Neut % (Auto) Lymph % (Auto) Clay % (Auto) Diagnostic Data Chest X-Ray 10/13/17 13:11 IMPRESSION: Mild cardiomegaly without evidence of acute cardiopulmonary disease.. Electronically Signed: Anna Becerra MD at 13:49 EST , Service support , Assessment/Plan Active and Suspected Problems Febrile illness, acute (Acute) Patient is a 67 years old female who was sent to ED from PCP's office. She was recently treated for UTI with nitrofurantoin. She has diffuse myalgia and low grade temperature past 1.5 day. She denied of any headache, sore throat, nasal congestion, cough, chest pain, abdominal pain, nausea, vomiting, or diarrhea. She has decreased appetite. Work up was done, which were essentially unremarkable with normal WBC at 8.9, normal renal function, and questionable UA. Even before antibiotics, she did not have any urinary symptoms. #1 Febrile illness. The findings and history are more consistent with viral syndrome. At this time, she has no significant focal symptoms that needs to be addressed. Observation vs. conservative treatment at home offered. She and her husbands are agreeable with conservative management at home. Continue to keep up with oral fluid intake, and take Tylenol prn for low grade temperature / fever. Patient should return to ED if she develops any other symptoms or condition worsen. #2 Elevated lactic acid. LC was 2.8, however, her vitals are normal, and WBC are normal. There is no signs of overt infection. CXR showed some degree of cardiomegaly, no IVF resuscitation was indicated. Discussed with Dr. Marley. OK to discharge patient to home and follow up as outpatient. Code Visit Inpatient E AND M: [id number] Init Hosp L2 10/13/17 1623 <Electronically signed by Noe Kwok MD> Date Noe Miller Signature (if applicable): Date CC: Hannah Riggs DO Signed URINALYSIS, COMPLETE Collected: 10/13/2017 Status: F Source: [place] 2:45 PM [facility] REPOSITORY Order Comment: Order Date: 10/13/17 How was Urine Obtained? CLEAN CATCH TYPE CODE TESTS RESULT OUT OF REFERENCE UNITS RANGE LAB L400.3000 Yellow COLOR Normal Yellow LAB L400.3050 Clear CLARITY Normal Sl. Cloudy LAB L400.3200 Normal mg/dl GLUCOSE, UR High 1000 LAB L400.3300 Negative mg/dL BILIRUBIN Normal URINE Negative LAB L400.3400 Negative mg/dl KETONE UR High 5 LAB L400.3465 1.002-1.030 SP.GR. Normal DIPSTX 1.010 LAB L400.3550 5.0 - 8.0 pH UR Normal 6.0 LAB L400.3600 Negative mg/dl PROT DIPSTX High 100 LAB L400.3700 Normal mg/dl UROBILI Normal Normal LAB L400.3750 Negative NITRITE UR Normal Negative LAB L400.3780 Negative /ul OCCULT Normal BLOOD-UR Negative LAB L400.3800 Negative /ul LEUK High ESTERASE 25 LAB L400.4050 0-5 /hpf WBC Normal 0-5 SEEN LAB L400.4100 0-5 /hpf RBC-UA Normal 0 SEEN LAB L400.4150 5-10 /hpf SQUAM EPI Normal 0-5 SEEN LAB L400.4200 0-5 /hpf Normal TRANSITIONAL EP 0-5 SEEN LAB L400.4300 None Seen /hpf BACTERIA Normal RARE LAB L400.4350 <or=2+ /hpf MUCUS, Normal URINE RARE Performed By: #### L400.0001 #### [facility] [address] [place], [address] Observed: 10/13/2017 Status: F Source: [place] INFLUENZA A+B (RAPID 1:08 PM [facility]) REPOSITORY Order Date: 10/13/17 FLU A/B Rapid Negative test results should be confirmed by culture. Order Rapid Viral Culture for Influenzae A+B ([id number]) if clinically indicated. Influenza Ag, Direct Presumptive NEGATIVE for Influenza A/B Antigen (See Note) Performed By: #### M101.0101 #### [facility] [address] [place], [address] Observed: 10/13/2017 Status: F Source: [place] CULTURE, BLOOD (WB) 1:00 PM [facility] REPOSITORY BC No growth in 5 days. Performed By: #### M200.1000 #### [facility] [address] [place], [address] CBC W/DIFF, AUTOMATED Collected: 10/13/2017 Status: F Source: [place] 12:55 PM [facility] REPOSITORY TYPE CODE TESTS RESULT OUT OF RANGE REFERENCE UNITS LAB L100.1000 4.4-11.0 K/mm3 Normal WBC 8.9 LAB L100.1200 4.2-5.4 M/mm3 Low RBC 4.16 LAB L100.1300 12.0-15.0 g/dl Low HGB 11.4 LAB L100.1400 37-47 % Low HCT 36.0 LAB L100.1500 81-99 fL Normal MCV 86.5 LAB L100.1600 27.0-32.0 pg Normal MCH 27.4 LAB L100.1700 32-36 g/gl Low MCHC 31.7 LAB L100.1810 11.6-14.6 % High RDW CV 14.9 LAB L100.1820 35.1-43.9 fl High RDW SD 45.4 LAB L100.1900 150-450 K/mm3 Normal PLT 161 LAB L100.2000 6.2-12.0 fl Normal MPV 10.0 LAB L100.2100 47-70 % High NEUT% 93.1 LAB L100.2200 19-41 % Low LY% 3.0 LAB L100.2300 0-10 % Normal MONO% 3.4 LAB L100.2400 0-5 % Normal EO% 0.2 LAB L100.2500 0-1 % Normal BASO% 0.2 LAB L100.2550 0.0-0.9 % Normal IM GRAN % 0.100 Result Comment: IG% - Immature Granulocytes (promyelocytes, myelocytes and metamyelocytes) > 1% indicates that a LEFT SHIFT is Present. LAB L100.2620 2.0-7.7 X10 3/uL High Absolute Neut 8.3 LAB L100.2720 0.83-4.51 X10 3/ul Low Absolute Lymph 0.27 Performed By: #### L100.0100 #### [facility] [address] [place], [address] BASIC METABOLIC Collected: 10/13/2017 Status: F Source: [place] PROFILE (BMP) 12:55 PM [facility] REPOSITORY Order Comment: DR DODD ADDED A RENAL PANEL TYPE CODE TESTS RESULT OUT OF RANGE REFERENCE UNITS LAB L501.0100 74-106 mg/dL High GLU 163 Result Comment: Fasting Glucose result greater than or equal to 126 mg/dL suggests DIABETES MELLITUS per A.D.A. criteria. Please note revised GLUCOSE reference range effective 2017. LAB L501.1000 7-18 mg/dL High BUN 21 LAB L501.1100 0.55-1.02 mg/dL Normal CREAT,SERUM 0.87 Result Comment: The validity of the calculated GFR AND GFRAA in patients over 70 years has not been determined. Clinical correlation is essential. LAB L501.1110 >60 mL/min Normal EST GFR 69 Result Comment: Non- GFR Calc LAB L501.1115 >60 mL/min Normal EST GFR - AA 83 Result Comment: GFR Calc LAB L501.1255 ml/min Normal Estimated CRCL 48.65 LAB L501.1300 10-20 RATIO High BUN/CRE 24.0 LAB L501.2200 8.5-10 mg/dL Normal .1 CA 8.6 LAB L501.5300 136-14 mmol/L Normal 5 NA 137 LAB L501.5600 3.5-5. mmol/L Normal 1 K 4.5 LAB L501.5900 98-107 mmol/L Normal CL 105 LAB L501.6100 21.0-3 mmol/L Low 2.0 CO2 20.0 LAB L501.6200 5-15 Normal GAP 12 Performed By: #### L500.2500, L501.1800, L501.2300 #### [facility] [address] [place], [address] ALBUMIN, SERUM Collected: 10/13/2017 Status: F Source: [place] 12:55 PM [facility] REPOSITORY Order Comment: DR DODD ADDED A RENAL PANEL TYPE CODE TESTS RESULT OUT OF RANGE REFERENCE UNITS LAB L501.1800 3.2-5.0 g/dL Normal ALB 3.7 Performed By: #### L500.2500, L501.1800, L501.2300 #### [facility] [address] [place], [address] PHOSPHORUS Collected: 10/13/2017 Status: F Source: [place] 12:55 PM [facility] REPOSITORY Order Comment: DR DODD ADDED A RENAL PANEL TYPE CODE TESTS RESULT OUT OF RANGE REFERENCE UNITS LAB L501.2300 2.5-4.9 mg/dL Low PHOS 2.2 Performed By: #### L500.2500, L501.1800, L501.2300 #### [facility] [address] [place], [address] LACTIC ACID Collected: 10/13/2017 Status: F Source: [place] 12:55 PM [facility] REPOSITORY Order Comment: Yes/No query for Sepsis Lactate Rule Y TYPE CODE TESTS RESULT OUT OF REFERENCE UNITS RANGE LAB L503.6005 0.4-2.0 mmol/L High LACTIC ACID 2.8 Result Comment: Critical Result(s) Called at: 13:50:00 10/13/2017 by: Gina Davidson Performed By: #### L503.6005 #### [facility] [address] [place], [address] Observed: 10/13/2017 Status: F Source: [place] CULTURE, BLOOD (WB) 12:55 PM [facility] REPOSITORY BC No growth in 5 days. Performed By: #### M200.1000 #### [facility] [address] [place], [address] CHEST PA AND LATERAL Observed: 10/13/2017 Status: F Source: [place] 12:40 PM [facility] REPOSITORY [facility] Imaging Services [address] [place] [address] Chest PA and Lateral MR#: [id number] Acct: [id number] Name: HERMINIA CARDONA Rep #: [id number] : 1950 F 67 From: Anna Becerra MD PCP: Hannah Riggs DO Status: REG ER Study: Chest PA and Lateral Date of Exam: 10/13/17 Exam# [id number] Ordering Dr: Wenceslao Marley MD STUDY: X-RAY CHEST REASON FOR EXAM: [...] tortuosity. There is demineralization of the osseous structures. There are degenerative changes of both shoulders. There is multilevel thoracic spondylosis. There is no demonstrated abnormality of the visualized soft tissue structures of the upper abdomen. RAD/Chest PA and Lateral IMPRESSION: Mild cardiomegaly without evidence of acute cardiopulmonary disease.. Electronically Signed: Anna Becerra MD at 13:49 EST , Service support , CC: Wenceslao Marley MD; Hannah Riggs DO Clerk Entry Level: Signed 12 LEAD ELECTROCARDIOGRAM Observed: 10/12/2017 Status: F Source: [place] 1:56 PM [facility] REPOSITORY [facility] Cardiovascular Services [address] [place] [address] 12 Lead EKG 10/07/17 2152 MR#: [id number] Acct: [id number] Name: HERMINIA CARDONA Rep #: [id number] : 1950 67 From: Ric Muir MD Attending Dr: Bernardo Mendez MD Status: DIS IN Ordering Dr: Mehul Pollock MD Date: 10/07/17 Location: [facility] Sex: F A Admitted: 10/06/17 Test Reason : Blood Pressure : / mmHG Vent. Rate : 076 BPM Atrial Rate : 076 BPM P-R Int : 194 ms QRS Dur : 102 ms QT Int : 392 ms P-R-T Axes : 031 026 -73 degrees QTc Int : 441 ms Normal sinus rhythm Low voltage QRS Nonspecific T wave abnormality Abnormal ECG When compared with ECG of 06-OCT-2017 21:00, MANUAL COMPARISON REQUIRED, DATA IS UNCONFIRMED Confirmed by WOOD LAMAR, RIC ([id number]), editorial manager DALLAS BECERRA ([id number]) on 10/12/2017 1:55:46 PM Referred By: Confirmed By:RIC MUIR MD 10/12/17 1355 Date Ric Muir MD CC: Mehul Pollock MD; Hannah Riggs DO Signed DISCHARGE SUMMARY Observed: 10/08/2017 Status: F Source: [place] 4:30 PM [facility] REPOSITORY [facility] Medical Records Department [address] [place] [address] [place] [address] Discharge Summary 10/08/17 1247 MR#: [id number] Acct: [id number] Name: HERMINIA CARDONA Rep #: [id number] : 1950 67 From: Bernardo Mendez MD PCP: Hannah Riggs DO Status: DIS IN Y Location: [place] [id number] Discharge Date and Diagnosis Date of Admission: 10/06/17 Date of Discharge: 10/08/17 - Primary Discharge Diagnosis Active and Suspected Problems Bradycardia (Acute) Vaginal bleeding (Acute) - Secondary Discharge Diagnosis Chronic Problems Atrial fibrillation (Chronic) HLD (hyperlipidemia) (Chronic) HTN (hypertension) (Chronic) Diabetes (Chronic) SDH (subdural hematoma) (Chronic) Hospital Course and Treatment Operations: None Summary of Care Provided: he patient is a 67 year old F who has been having vaginal bleeding for a few weeks. She was noted to be bradycardic and sent to the emergency room. In the emergency room patient was noted noted to have a junctional bradycardia. Patient takes beta-blockers for her A. fib as well as anticoagulation therapy with Eliquis. We discontinued her metoprolol and Eliquis. Regarding her bradycardia has resolved. Regarding her vaginal bleed she underwent examination with speculum by gynecology and they did not notice any evidence of significant bleeding She is recommended to follow-up as an outpatient. Discharge Activity: Return to Normal Activity Home Medications: Medications to take at Discharge Alendronate Sodium [Fosamax] 70 mg PO PRECIADO 04/08/17 Fexofenadine HCl [Children's Merry Allergy] 30 mg PO DAILY 04/08/17 Metformin HCl [Glucophage] 500 mg PO BIDCM 04/08/17 Multivitamins,Therapeutic [Multivitamin] 1 tablet PO DAILY 04/08/17 Simvastatin [Zocor] 40 mg PO QHS 04/08/17 Mirtazapine 30 mg PO QHS 05/20/17 Oxybutynin Chloride [Ditropan Xl] 5 mg PO DAILY 05/20/17 Lacosamide [Vimpat] 200 mg PO BID #60 tablet 09/02/17 Oxycodone HCl/Acetaminophen [Percocet 5-325] 1 tablet PO Q6H PRN PRN 09/02/17 Amlodipine [Norvasc] 5 mg PO DAILY 10/06/17 Empagliflozin [Jardiance] 10 mg PO DAILY 10/06/17 Lacosamide [Vimpat] 200 mg PO BID 10/06/17 Hydroxyzine HCl 25 mg PO BID 10/07/17 Primary Care Physician: Hannah Riggs DO [Primary Care Provider] - Meaningful Use Info Meaningful Use Diagnoses (Choose all that apply): None applicable Code Visit Inpatient E AND M: 18567 Disch Hosp 10/08/17 1630 <Electronically signed by Bernardo Mendez MD> Date Bernardo Mendez MD Cosigner Signature (if applicable): Date CC: Hannah Riggs DO; Bernardo Mendez MD Signed 12 LEAD ELECTROCARDIOGRAM Observed: 10/08/2017 Status: F Source: [place] 2:24 PM [facility] REPOSITORY [facility] Cardiovascular Services [address] [place] [address] 12 Lead EKG 10/06/17 2100 MR#: [id number] Acct: [id number] Name: HERMINIA CARDONA Rep #: [id number] : 1950 67 From: Ric Muir MD Attending Dr: Bernardo Mendez MD Status: DIS IN Ordering Dr: Francia Lr MD Date: 10/06/17 Location: [facility] Sex: F A Admitted: 10/06/17 Test Reason : BRADYCARDIA Blood Pressure : / mmHG Vent. Rate : 039 BPM Atrial Rate : 040 BPM P-R Int : 000 ms QRS Dur : 102 ms QT Int : 470 ms P-R-T Axes : 000 042 -30 degrees QTc Int : [address] AND T wave abnormality, consider inferior ischemia Abnormal ECG Confirmed by WOOD LAMAR, RIC ([id number]), editorial manager DALLAS BECERRA ([id number]) on 10/08/2017 2:23:57 PM Referred By: Confirmed By:RIC MUIR MD 10/08/17 1424 Date Ric Muir MD CC: Francia Lr MD; Hannah Riggs DO Signed DISCHARGE INSTRUCTION Observed: 10/08/2017 Status: F Source: [place] 12:47 PM [facility] REPOSITORY [facility] Medical Records Department [address] [place] [address] Instructions for Home/Discharge Instructions 10/08/17 1246 MR#: [id number] Acct: [id number] Name: HERMINIA CARDONA Rep #: [id number] : 1950 67 From: Bernardo Mendez MD PCP: Hannah Riggs DO Status: ADM IN - Discharge Diagnoses Current Active Problems: Current Active and Chronic Problems Bradycardia (Acute) Vaginal bleeding (Acute) Atrial fibrillation (Chronic) Discharge Activity: Return to Normal Activity Allergies/Adverse Reactions: Allergies escitalopram [From Lexapro] Allergy (Verified 10/06/17 20:37) Rash shellfish derived Allergy (Verified 10/06/17 20:37) Unknown perfume Adverse Reaction (Verified 10/06/17 20:37) Unknown pineapple Adverse Reaction (Verified 10/06/17 20:37) Rash quinine Adverse Reaction (Verified 10/06/17 20:37) Unknown strawberry Adverse Reaction (Verified 10/06/17 20:37) Rash Sulfa (Sulfonamide Antibiotics) Adverse Reaction (Verified 10/06/17 20:37) Unknown DUST Adverse Reaction (Uncoded 10/06/17 20:37) Unknown Medications to take at Discharge Alendronate Sodium [Fosamax] 70 mg PO PRECIADO 04/08/17 Fexofenadine HCl [Children's Merry Allergy] 30 mg PO DAILY 04/08/17 Metformin HCl [Glucophage] 500 mg PO BIDCM 04/08/17 Multivitamins,Therapeutic [Multivitamin] 1 tablet PO DAILY 04/08/17 Simvastatin [Zocor] 40 mg PO QHS 04/08/17 Mirtazapine 30 mg PO QHS 05/20/17 Oxybutynin Chloride [Ditropan Xl] 5 mg PO DAILY 05/20/17 Lacosamide [Vimpat] 200 mg PO BID #60 tablet 09/02/17 Oxycodone HCl/Acetaminophen [Percocet 5-325] 1 tablet PO Q6H PRN PRN 09/02/17 Amlodipine [Norvasc] 5 mg PO DAILY 10/06/17 Empagliflozin [Jardiance] 10 mg PO DAILY 10/06/17 Lacosamide [Vimpat] 200 mg PO BID 10/06/17 Hydroxyzine HCl 25 mg PO BID 10/07/17 Primary Care Physician: Hannah Riggs DO [Primary Care Provider] - Proposed Discharge Date: 10/08/17 10/08/17 1247 <Electronically signed by Bernardo Mendez MD> Date Bernardo Mendez MD CC: Mehul Pollock MD; Ronak Miller MD; Hannah Riggs DO CONSULTATION Observed: 10/07/2017 Status: F Source: [place] 11:24 AM [facility] REPOSITORY [facility] Medical Records Department [address] [place] [address] Consultation 10/07/17819 MR#: [id number] Acct: [id number] Name: HERMINIA CARDONA Rep #: [id number] : 1950 67 From: Mehul Pollock MD PCP: Hannah Riggs DO Status: ADM IN Location: [place] [address] Reason for Consult Date of Consultation: 10/07/17 Reason for Consultation: Evaluation of slow heart rate. History of Present Illness: The patient is a 67 year old F with a history of atrial fibrillation whom I had seen in May 2017 with hypertensive emergency and paroxysmal atrial fibrillation. She was placed on beta-wiley and subsequently discharged. She apparently presented to see her primary physician with vaginal bleeding was noted to be bradycardic but asymptomatic and then was sent to the emergency room. In the emergency room was noted to be in a junctional bradycardia and the emergency room physician called me to assist in management. She denies any chest pain or shortness of breath or paroxysmal nocturnal dyspnea or pedal edema she has not had any recent seizure episodes. Remember that she has had a previous diagnosis of his subdural hematoma and seizures. She denies any chest pain shortness of breath paroxysmal nocturnal dyspnea or pedal edema no neck arm or jaw discomfort suggest angina during her last visit she had an echocardiogram performed which demonstrated preserved ejection fraction. Past Medical History Allergies/Adverse Reactions: Allergies escitalopram [From Lexapro] Allergy (Verified 10/06/17 20:37) Rash shellfish derived Allergy (Verified 10/06/17 20:37) Unknown perfume Adverse Reaction (Verified 10/06/17 20:37) Unknown pineapple Adverse Reaction (Verified 10/06/17 20:37) Rash quinine Adverse Reaction (Verified 10/06/17 20:37) Unknown strawberry Adverse Reaction (Verified 10/06/17 20:37) Rash Sulfa (Sulfonamide Antibiotics) Adverse Reaction (Verified 10/06/17 20:37) Unknown DUST Adverse Reaction (Uncoded 10/06/17 20:37) Unknown Home Medications: Ambulatory Orders Medication Instructions Recorded Past Medical History (Chronic Problems): Chronic Problems Atrial fibrillation (Chronic) HLD (hyperlipidemia) (Chronic) HTN (hypertension) (Chronic) Diabetes (Chronic) SDH (subdural hematoma) (Chronic) Surgical History: no surgical history Psychiatric History: No pertinent psych hx 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 Denies: Dysuria, Hematuria Skin: Denies: Rash Neurological: Reports: Seizure Subjectve: Lady in no apparent distress Objective: Vital Signs Temp Pulse Resp BP Pulse Ox 97.9 F 40 L 18 112/60 93 10/07/17 02:30 10/07/17 07:11 10/07/17 02:30 10/07/17 02:30 10/07/17 02:30 Oxygen Delivery Method Room Air Weight: 170 lb 3.15 oz Body Mass Index (BMI) 32.1 Intake and Output for Last 24 Hours Intake Total 658 / 658 Balance 658 / 658 General: Awake, Alert, Oriented x 3 HEENT: PERRL, EOMI, Sclera Non Icteric Neck: Supple, Good ROM, No Lymph Node Enlargement Lungs: Clear to auscultation Cardiovascular: Regular Rhythm, Normal S1, Normal S2, No Murmurs, No Rubs, No Gallops Vascular: No Carotid Bruits, Normal Femoral Pulses, Normal Radial Pulses, Normal Dorsalis Pedal Pulse, Normal Posterior Tibial Pulses Abdomen: Bowel Sounds Present, Soft, Non Tender, No HSM, No Organomegaly Extremities: No Cyanosis, No Clubbing, No edema Neurological: No Focal Motor or Sensory Deficit 10/07/17 00:15: Troponin I 0.03 10/07/17 04:04: Troponin I 0.03 10/07/17 04:04: WBC 6.9, RBC 3.69 L, Hgb 10.0 L, Hct 32.7 L, MCV 88.6, MCH 27.1, MCHC 30.6 L, RDW 14.7 H, RDW Differential 45.7 H, Plt Count 192, MPV 10.1 10/07/17 04:04: PT 15.6 H, INR 1.3 10/07/17 04:04: Sodium 140, Potassium 4.0, Chloride 109 H, Carbon Dioxide 20.0 L, Anion Gap 11, BUN 30 H, Creatinine 0.79, Est GFR (MDRD) Af Amer 94, Est GFR (MDRD) Non-Af 78, BUN/Creatinine Ratio 38.1 H, Glucose 151 H, Calcium 8.0 L Rhythm: EKG: Junctional bradycardia ECHO: Ejection fraction of 60%. Assessment/Plan 1. Junctional bradycardia. She has a history of previous atrial fibrillation and was put on beta-wiley. She appears to be on a small dose of beta-wiley and this may be related to an early tachybradycardia syndrome. My recommendation at this time is to discontinue her beta-wiley and see how much her heart rate improves. She is currently maintaining sinus rhythm. I doubt that she is back in underlying atrial fibrillation. Will make a recommendation as to how much beta wiley or antiarrhythmic to put her on in the next 24 hours. 2. Atrial fibrillation He does have a history of atrial fibrillation in the past. But at this time appears to be in a junctional rhythm. We will continue to observe her regarding the above. 3.. Lipidemia She does have a history of hyperlipidemia in the past which has been significant. Recommend that she continue on her lipid-lowering medication. Thank you for allowing me to participate in the care of your patient. Please don't hesitate to call if any issues arise 10/07/17 1128 <Electronically signed by Mehul Pollock MD> Date Mehul Pollock MD Cosigner Signature (if applicable): Date CC: Mehul Pollock MD; Ronak Miller MD; Hannah Riggs DO Signed CONSULTATION Observed: 10/07/2017 Status: F Source: [place] 8:40 AM [facility] REPOSITORY [facility] Medical Records Department [address] [place] [address] Consultation 10/07/1731 MR#: [id number] Acct: [id number] Name: HERMINIA CARDONA Rep #: [id number] : 1950 67 From: Ronak Miller MD PCP: Hannah Riggs DO Status: ADM IN Location: [place] [id number] Problem List (1) Vaginal bleeding Status: Acute Reason for Consult Date of Consultation: 10/07/17 Reason for Consultation: Vaginal bleeding History of Present Illness: The patient is a 67 year old F [who presented to the ER with 2 days of vaginal bleeding reported as like a period. Bleeding decribed as bright red. No previous episodes of bleeding. Does not report hematuria or rectal bleeding. She is on an anticoagulant. History significant for CARLOTA performed secondary to fibroid uterus years ago. She reports her cervix was removed. She is currently not sexually active to any extent.] Past Medical History Past Medical History (Chronic Problems): Chronic Problems Atrial fibrillation (Chronic) HLD (hyperlipidemia) (Chronic) HTN (hypertension) (Chronic) Diabetes (Chronic) SDH (subdural hematoma) (Chronic) Allergies escitalopram [From Lexapro] Allergy (Verified 10/06/17 20:37) Rash shellfish derived Allergy (Verified 10/06/17 20:37) Unknown perfume Adverse Reaction (Verified 10/06/17 20:37) Unknown pineapple Adverse Reaction (Verified 10/06/17 20:37) Rash quinine Adverse Reaction (Verified 10/06/17 20:37) Unknown strawberry Adverse Reaction (Verified 10/06/17 20:37) Rash Sulfa (Sulfonamide Antibiotics) Adverse Reaction (Verified 10/06/17 20:37) Unknown DUST Adverse Reaction (Uncoded 10/06/17 20:37) Unknown Home Medications: Ambulatory Orders Medication Instructions Recorded Surgical History: no surgical history Psychiatric History: No pertinent psych hx 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 Smoking Status: Never smoker Alcohol: None Drugs: None - *Family History Maternal History Items: No pertinent history Sibling History Items: Heart Disease Review of Systems Constitutional: Denies: Fever, Night Sweats, Malaise, Weakness Gastrointestinal: Denies: Abdominal Pain, Constipation, Diarrhea, Nausea, Melena, Vomiting Genitourinary: Denies: Dysuria, Frequency, Hematuria Gynecological: Reports: Vaginal bleeding Patient Problems: Active and Suspected Problems Bradycardia (Acute) Vaginal bleeding (Acute) Subjective: Awake, alert and good historian Objective: Afeb VSS - Physical Exam General: Alert, Oriented x3, Cooperative, No apparent distress Abdomen: Soft, Non Tender, Non-Distended, - - no masses Extremities: No edema Neurological: Neuro grossly intact Psych/Mental Status: Normal Affect Comment: Vaginal speculum exam. No obvious lesions. Vital Signs Temp Pulse Resp BP Pulse Ox 97.9 F 40 L 18 112/60 93 10/07/17 02:30 10/07/17 07:11 10/07/17 02:30 10/07/17 02:30 10/07/17 02:30 Oxygen Delivery Method Room Air Weight: 170 lb 3.15 oz Body Mass Index (BMI) 32.1 Intake and Output for Last 24 Hours Intake Total 658 / 658 Balance 658 / 658 Laboratory Tests Past 24 Hrs WBC 6.9 RBC 3.69 L Hgb 10.0 L Hct 32.7 L MCV 88.6 WBC RBC Hgb Hct MCV POC Glucose POC Glucose 155 H Assessment/Plan Active and Suspected Problems Bradycardia (Acute) Vaginal bleeding (Acute) Exam in the bed with sterile speculum shows significant vaginal atrophy. On exam some small amount of bleeding from posterior vaginal cuff. I would recommend the she be given estrace vaginal cream 2 grams vaginally nightly for now. She can safely followup in the office as scheduled. I do not feel that she has any significant vaginal pathology. No masses appreciated on exam. 10/07/17 0840 <Electronically signed by Ronak Miller MD> Date Ronak Miller MD Cosigner Signature (if applicable): Date CC: Mehul Pollock MD; Ronak Miller MD; Hannah Riggs DO Signed BEDSIDE GLUCOSE Collected: 10/07/2017 Status: F Source: [place] 6:49 AM [facility] REPOSITORY TYPE CODE TESTS RESULT OUT OF REFERENCE UNITS RANGE LAB L501.080 70-110 mg/dL High BEDSIDE GLU 155 Result Comment: MANAGEMENT OF PATIENT CARE PER NURSING PROTOCOL Performed By: #### L501.080 #### [facility] Point of Care [address] [facility] [place], [place] [address] CBC-COMPLETE BLOOD CNT Collected: 10/07/2017 Status: F Source: [place] NO DIFF 4:04 AM [facility] REPOSITORY TYPE CODE TESTS RESULT OUT OF RANGE REFERENCE UNITS LAB L100.1000 4.4-11.0 K/mm3 Normal WBC 6.9 LAB L100.1200 4.2-5.4 M/mm3 Low RBC 3.69 LAB L100.1300 12.0-15.0 g/dl Low HGB 10.0 LAB L100.1400 37-47 % Low HCT 32.7 LAB L100.1500 81-99 fL Normal MCV 88.6 LAB L100.1600 27.0-32.0 pg Normal MCH 27.1 LAB L100.1700 32-36 g/gl Low MCHC 30.6 LAB L100.1810 11.6-14.6 % High RDW CV 14.7 LAB L100.1820 35.1-43.9 fl High RDW SD 45.7 LAB L100.1900 150-450 K/mm3 Normal PLT 192 LAB L100.2000 6.2-12.0 fl Normal MPV 10.1 Performed By: #### L100.0500 #### [facility] [address] [facility] [place], [address] PROTHROMBIN TIME W/INR Collected: 10/07/2017 Status: F Source: [place] 4:04 AM [facility] REPOSITORY TYPE CODE TESTS RESULT OUT OF RANGE REFERENCE UNITS LAB L300.4150 11.7-14.9 SECONDS High PROTIME 15.6 LAB L300.4200 Normal INR 1.3 Performed By: #### L300.3900 #### [facility] [address] [facility] [place], [address] TROPONIN-I Collected: 10/07/2017 Status: F Source: [place] 4:04 AM [facility] REPOSITORY Order Comment: 'TROP' Serial specimen #1, #2, #3, or #4: 2 TYPE CODE TESTS RESULT OUT OF RANGE REFERENCE UNITS LAB L501.4010 <0.06 ng/mL Normal 0.03 TROPONIN-I Result Comment: TROPONIN-I EXPECTED VALUES <0.05 NEGATIVE 0.06 - 0.59 AT RISK OF FL > OR = 0.60 SUGGEST FL Performed By: #### L501.4010 #### [facility] [address] [facility] [place], [address] BASIC METABOLIC Collected: 10/07/2017 Status: F Source: [place] PROFILE (BMP) 4:04 AM [facility] REPOSITORY TYPE CODE TESTS RESULT OUT OF RANGE REFERENCE UNITS LAB L501.0100 74-106 mg/dL High GLU 151 Result Comment: Fasting Glucose result greater than or equal to 126 mg/dL suggests DIABETES MELLITUS per A.D.A. criteria. LAB L501.1000 7-18 mg/dL High BUN 30 LAB L501.1100 0.55-1.02 mg/dL Normal CREAT,SERUM 0.79 Result Comment: The validity of the calculated GFR AND GFRAA in patients over 70 years has not been determined. Clinical correlation is essential. LAB L501.1110 >60 mL/min Normal EST GFR 78 Result Comment: Non- GFR Calc LAB L501.1115 >60 mL/min Normal EST GFR - AA 94 Result Comment: GFR Calc LAB L501.1255 ml/min Normal Estimated CRCL 53.57 LAB L501.1300 10-20 RATIO High BUN/CRE 38.1 LAB L501.2200 8.5-10 mg/dL Low .1 CA 8.0 LAB L501.5300 136-14 mmol/L Normal 5 NA 140 LAB L501.5600 3.5-5. mmol/L Normal 1 K 4.0 LAB L501.5900 98-107 mmol/L High CL 109 LAB L501.6100 21.0-3 mmol/L Low 2.0 CO2 20.0 LAB L501.6200 5-15 Normal GAP 11 Performed By: #### L500.2500 #### [facility] [address] [facility] [place], [address] TROPONIN-I Collected: 10/07/2017 Status: F Source: [place] 12:15 AM [facility] REPOS[facility] Order Comment: 'TROP' Serial specimen #1, #2, #3, or #4: 2 TYPE CODE TESTS RESULT OUT OF RANGE REFERENCE UNITS LAB L501.4010 <0.06 ng/mL Normal 0.03 TROPONIN-I Result Comment: TROPONIN-I EXPECTED VALUES <0.05 NEGATIVE 0.06 - 0.59 AT RISK OF FL > OR = 0.60 SUGGEST FL Performed By: #### L501.4010 #### [facility] [address] [facility] [place], [address] HISTORY AND PHYSICAL Observed: 10/06/2017 Status: F Source: [place] EXAM 11:57 PM [facility] REPOSITORY [facility] Medical Records Department [address] [place] [address] History and Physical 10/06/17 2349 MR#: [id number] Acct: [id number] Name: HERMINIA CARDONA Rep #: [id number] : 1950 67 From: Karel Max DO PCP: Hannah Riggs DO Status: ADM IN Location: [address] Problem List (1) Bradycardia Status: Acute (2) Vaginal bleeding Status: Acute (3) Atrial fibrillation Status: Chronic (4) HLD (hyperlipidemia) Status: Chronic (5) HTN (hypertension) Status: Chronic (6) Diabetes Status: Chronic (7) SDH (subdural hematoma) Status: Chronic (8) Seizure Status: Acute History of Present Illness Date of Admission: 10/06/17 Chief Complaint: vaginal bleeding The patient is a 67 year old F who has been having vaginal bleeding for a few weeks. Once all provider and was noted to be bradycardic and sent to the emergency room. In the emergency room patient was noted noted to have a junctional bradycardia. Patient does states that she is having some chest pain as well as occasional shortness of breath and dizziness. Currently, resting in the bed, she is not having current symptoms. Patient has been on metoprolol for several months now the dose has not been changed. She did receive her metoprolol at 1800 today. Patient did receive IV fluids in the emergency room. Patient has been having is vaginal bleeding which she describes as heavy periods like. Patient had a hysterectomy 20 years ago. Patient is on Eliquis for atrial fibrillation which she has been on for some time. [] Past Medical History Past Medical History (Chronic Problems): Chronic Problems Atrial fibrillation (Chronic) HLD (hyperlipidemia) (Chronic) HTN (hypertension) (Chronic) Diabetes (Chronic) SDH (subdural hematoma) (Chronic) Allergies escitalopram [From Lexapro] Allergy (Verified 10/06/17 20:37) Rash shellfish derived Allergy (Verified 10/06/17 20:37) Unknown perfume Adverse Reaction (Verified 10/06/17 20:37) Unknown pineapple Adverse Reaction (Verified 10/06/17 20:37) Rash quinine Adverse Reaction (Verified 10/06/17 20:37) Unknown strawberry Adverse Reaction (Verified 10/06/17 20:37) Rash Sulfa (Sulfonamide Antibiotics) Adverse Reaction (Verified 10/06/17 20:37) Unknown DUST Adverse Reaction (Uncoded 10/06/17 20:37) Unknown Home Medications: Ambulatory Orders Medication Instructions Recorded Surgical History: no surgical history Psychiatric History: No pertinent psych hx 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 Denies: Edema Respiratory: Reports: Shortness of Breath, Shortness of breath at rest. Denies: Cough, Sputum production Gastrointestinal: Denies: Abdominal Pain, Nausea, Vomiting Genitourinary: Denies: Dysuria Gynecological: Reports: Vaginal bleeding Musculoskeletal: Denies: Joint Pain, Joint Tenderness Skin: Reports: - - Bruising from IV attempts. Denies: Rash, Wounds Neurological: Reports: Seizures. Denies: Focal weakness, Numbness, Tingling Psychiatric: Denies: Anxiety, Depression Endocrine: Denies: Change in Body Habitus, Heat/ Cold Intolerance Hematologic/ Lymphatic: Reports: Easy Bruising, Easy Bleeding. Denies: Hx of blood clot VTE Information - Inpt Only VTE Present on Admission: No VTE Mechan Device Prophylaxis: SCD's Reason prophylaxis not ordered:: Medical Contraindication Patient Problems: Active and Suspected Problems Bradycardia (Acute) Vaginal bleeding (Acute) - Physical Exam General: Alert, Cooperative, No apparent distress HEENT: Atraumatic, Normocephalic, - - No icterus Oral: Moist Mucosa, No Gingival or Mucosal Lesions/ Ulcerations Neck: No Nodes, Thyroid Normal Size and Texture Lungs: Clear to auscultation, Normal air movement, No rhonchi, No wheeze Cardiovascular: Regular rate, Regular Rhythm, Normal S1, Normal S2, No murmurs Abdomen: Bowel Sounds Present, Soft, Non Tender, Non-Distended, No Hepato-splenomegaly Extremities: No edema, No Calf Tenderness Skin: No rashes, - - Some bruising in the left antecubital from IV attempts and lab draws. Musculoskeletal: No Tenderness to Palpation of Joints or Extremities, No Muscle Wasting Neurological: Deep Tendon Reflexes 2+/4 and Symmetrical, Neuro grossly intact, Sensory exam intact to light touch and pain, - - No clonus Psych/Mental Status: Normal Affect, Appropriate Vital Signs Temp Pulse Resp BP Pulse Ox 37.0 C 35 L 20 H 108/67 93 10/06/17 20:37 10/06/17 22:26 10/06/17 22:26 10/06/17 22:26 10/06/17 20:50 Oxygen Delivery Method Room Air Weight: 78.8 kg Body Mass Index (BMI) 32.8 Finger Stick Blood Glucose 129 Laboratory Tests Past 24 Hrs WBC 7.8 RBC 4.03 L Hgb 10.8 L Hct 35.0 L MCV 86.8 MCH 26.8 L MCHC 30.9 L RDW 14.5 RDW Differential 45.8 H Clinical Impression(s) from Imaging Studies Chest X-Ray 10/06/17 21:15 IMPRESSION: Pulmonary hypertension. Mild cardiomegaly. No infiltrate. Electronically Signed: Tirso Ovalle DO at 21:42 EST , Service support , Pelvis Ultrasound 10/06/17 22:21 IMPRESSION: Uterus removed. No adnexal mass. Ovaries not visualized. Debris within the urinary bladder. Electronically Signed: Tirso Ovalle DO at 23:01 EST , Service support , EKG personally reviewed and showed a junctional bradycardia. Assessment/Plan Active and Suspected Problems Bradycardia (Acute) Vaginal bleeding (Acute) 1. Bradycardia * Junctional on EKG * Patient is on metoprolol 25 twice daily. That will be held. Patient's last dose was at 1800 today. * Cardiology has been notified by the emergency room and will see the patient on consultation. We will see how the patient's heart rate does overnight. It is possible that this may have been going on for a period of time but is unclear as patient was just being assessed for the vaginal bleeding where it was noted at that time 2. Vaginal bleeding * Postmenopausal, however the patient has already had a hysterectomy * Patient's Eliquis will be held. I do not feel that the Eliquis was directly causing the bleeding but certainly is contributing to it. * Dr. Miller was notified by the emergency room and will see the patient in consultation. 3. Atrial fibrillation * Patient now with a junctional bradycardia and vaginal bleeding so the patient's Eliquis and metoprolol are being held. 4. DVT prophylaxis: Patient will be on SCDs 5. Seizure disorder * gave the patient her Vimpat at 2230. Continue with her seizure medications Code Visit Inpatient E AND M: 05299 Init Hosp L3 10/06/17 8886 <Electronically signed by Karel Max DO> Date Karel Max DO Cosigner Signature: Date (if applicable) CC: Karel Trivedinoe ; Hannah Keely WELSH Signed EMERGENCY DEPARTMENT Observed: 10/06/2017 Status: F Source: [place] SUMMARY 11:18 PM [facility] REPOSITORY [facility] Medical Records Department [address] [place] [address] Emergency Department Summary 10/06/17 2224 MR#: [id number] Acct: [id number] Name: HERMINIA CARDONA Rep #: [id number] : 1950 67 From: Francia Lr MD PCP: Hannah Riggs DO Status: REG ER - ER Visit Summary Date of Service: 10/06/17 Chief Complaint: Vaginal bleeding, lightheadedness History of Present Illness: The patient is a 67 F presenting with vaginal bleeding which started earlier this morning. She was seen by Dr. Riggs her primary care physician. She confirmed that this was vaginal bleeding and not urinary. She referred her to see Dr. Sarah Hodges a week from Wednesday. She states throughout the day she had bleeding similar to a period. She states she soaked through 4-5 pads. She has a history of previous partial hysterectomy. She is on eliquis for history of atrial fibrillation. She takes metoprolol bid. She has had lightheadedness and near syncope today. Denies chest pain, shortness of breath, or abdominal pain. Physical Examination: Heart rate 30-35. Patient is afebrile. Alert no acute distress. HEENT exam is unremarkable. Neck is supple. Lungs are clear and equal bilaterally. Heart is regular bradycardic Abdomen is soft nontender nondistended. Pelvic exam: Minimal vaginal bleeding Extremities are unremarkable. Skin is warm and dry. Remainder of exam is unremarkable. Emergency Department Course and Treatment: Orthostatics are negative. Patient continues to be bradycardic in the 30s. Chest x-ray shows mild cardiomegaly with no infiltrate. EKG is junctional bradycardia rate of 39 with inferior T-wave inversion. This is changed from previous EKG May 2017. CBC normal except for hemoglobin 10.8. Chemistries unremarkable except for glucose 155, BUN 32. Troponin is negative. Discussed with Dr. Miller who is agreeable with consult, he requests pelvic ultrasound prior to admission. Discussed with Dr. Pollock who will also see the patient in consultation, recommends holding metoprolol and observation. Discussed with the hospitalist for admission. Disposition: Observation Impression: Symptomatic bradycardia, vaginal bleeding This note was generated with TRUECar dictation software. It may contain incorrect words, spelling, and punctuation that were not noted in review of the chart prior to signing ED Disposition - Plan for ED Patient: Chief Complaint: Vag Bleeding Referrals: Hannah Riggs DO [Primary Care Provider] - What to do if you have Problems For any increased pain, shortness of breath, bleeding, nausea or vomiting, chest pain, or any unexpected problems, contact your Primary Care Provider. Call [facility] ([phone]) or report to the closest Emergency Room. Call 911 if necessary. 10/06/17 2318 <Electronically signed by Francia Lr MD> Date Francia Lr MD Cosigner Signature (If Indicated): Date CC: Hannah Riggs DO PELVIC (NON ) Observed: 10/06/2017 Status: F Source: [place] 10:22 PM [facility] REPOSITORY [facility] Imaging Services [address] [place] [address] Pelvic (Non ) MR#: [id number] Acct: [id number] Name: HERMINIA CARDONA Rep #: [id number] : 1950 F 67 From: Tirso Ovalle PCP: Hannah Riggs DO Status: REG ER Study: Pelvic (Non ) Date of Exam: 10/06/17 Exam# [id number] Ordering Dr: Francia Lr MD STUDY: ULTRASOUND OF THE FEMALE PELVIS - COMPLETE REASON FOR EXAM: Female, 67 years old. Post menopausal bleeding TECHNIQUE: Transabdominal and Transvaginal TECHNICAL QUALITY: Adequate. COMPARISON: None. FINDINGS: The uterus is removed. Ovaries are not visualized. No adnexal mass. There is no fluid in the cul-de-sac. The pre void volume of the bladder was 181 ml. Debris within the bladder. US/Pelvic (Non ) IMPRESSION: Uterus removed. No adnexal mass. Ovaries not visualized. Debris within the urinary bladder. Electronically Signed: Tirso Oavlle DO at 23:01 EST , Service support , CC: Francia Lr MD; Hannah Riggs DO Clerk Entry Level: Signed CHEST 1 VIEW Observed: 10/06/2017 Status: F Source: [place] (PORTABLE) 9:11 PM [facility] REPOSITORY [facility] Imaging Services [address] [place] [address] Chest 1 View (Portable) MR#: [id number] Acct: [id number] Name: HERMINIA CARDONA Rep #: [id number] : 1950 F 67 From: Tirso Ovalle PCP: Hannah Riggs DO Status: REG ER Study: Chest 1 View (Portable) Date of Exam: 10/06/17 Exam# [id number] Ordering Dr: Francia Lr MD STUDY: X-RAY CHEST REASON FOR EXAM: Female, 67 years old. Dizziness, vaginal bleeding TECHNIQUE: Single AP portable view of the chest. COMPARISON: 06/20/2017. FINDINGS: EKG lines overlying the chest. The lungs are expanded. [...] upper abdomen. RAD/Chest 1 View (Portable) IMPRESSION: Pulmonary hypertension. Mild cardiomegaly. No infiltrate. Electronically Signed: Tirso Ovalle DO at 21:42 EST , Service support , CC: Francia Lr MD; Hannah Riggs DO Clerk Entry Level: Signed BASIC METABOLIC Collected: 10/06/2017 Status: F Source: [place] PROFILE (BMP) 8:55 PM [facility] REPOSIT[facility] Order Comment: 'TROP' Serial specimen #1, #2, #3, or #4: 1 TYPE CODE TESTS RESULT OUT OF RANGE REFERENCE UNITS LAB L501.0100 74-106 mg/dL High GLU 155 Result Comment: Fasting Glucose result greater than or equal to 126 mg/dL suggests DIABETES MELLITUS per A.D.A. criteria. LAB L501.1000 7-18 mg/dL High BUN 32 LAB L501.1100 0.55-1.02 mg/dL Normal CREAT,SERUM 0.91 Result Comment: The validity of the calculated GFR AND GFRAA in patients over 70 years has not been determined. Clinical correlation is essential. LAB L501.1110 >60 mL/min Normal EST GFR 66 Result Comment: Non- GFR Calc LAB L501.1115 >60 mL/min Normal EST GFR - AA 80 Result Comment: GFR Calc LAB L501.1255 ml/min Normal Estimated CRCL 46.51 LAB L501.1300 10-20 RATIO High BUN/CRE 35.2 LAB L501.2200 8.5-10 mg/dL Normal .1 CA 8.9 LAB L501.5300 136-14 mmol/L Normal 5 NA 140 LAB L501.5600 3.5-5. mmol/L Normal 1 K 4.2 LAB L501.5900 98-107 mmol/L Normal CL 107 LAB L501.6100 21.0-3 mmol/L Normal 2.0 CO2 22.0 LAB L501.6200 5-15 Normal GAP 11 Performed By: #### L500.2500, L501.4010 #### [facility] [address] [place], [address] TROPONIN-I Collected: 10/06/2017 Status: F Source: [place] 8:55 PM [facility] REPOS[facility] Order Comment: 'TROP' Serial specimen #1, #2, #3, or #4: 1 TYPE CODE TESTS RESULT OUT OF RANGE REFERENCE UNITS LAB L501.4010 <0.06 ng/mL Normal 0.03 TROPONIN-I Result Comment: TROPONIN-I EXPECTED VALUES <0.05 NEGATIVE 0.06 - 0.59 AT RISK OF FL > OR = 0.60 SUGGEST FL Performed By: #### L500.2500, L501.4010 #### [facility] [address] [place], [address] CBC W/DIFF, AUTOMATED Collected: 10/06/2017 Status: F Source: [place] 8:55 PM [facility] REPOSIT[facility] TYPE CODE TESTS RESULT OUT OF RANGE REFERENCE UNITS LAB L100.1000 4.4-11.0 K/mm3 Normal WBC 7.8 LAB L100.1200 4.2-5.4 M/mm3 Low RBC 4.03 LAB L100.1300 12.0-15.0 g/dl Low HGB 10.8 LAB L100.1400 37-47 % Low HCT 35.0 LAB L100.1500 81-99 fL Normal MCV 86.8 LAB L100.1600 27.0-32.0 pg Low MCH 26.8 LAB L100.1700 32-36 g/gl Low MCHC 30.9 LAB L100.1810 11.6-14.6 % Normal RDW CV 14.5 LAB L100.1820 35.1-43.9 fl High RDW SD 45.8 LAB L100.1900 150-450 K/mm3 Normal PLT 206 LAB L100.2000 6.2-12.0 fl Normal MPV 9.7 LAB L100.2100 47-70 % Low NEUT% 43.6 LAB L100.2200 19-41 % High LY% 48.3 LAB L100.2300 0-10 % Normal MONO% 5.5 LAB L100.2400 0-5 % Normal EO% 1.8 LAB L100.2500 0-1 % Normal BASO% 0.4 LAB L100.2550 0.0-0.9 % Normal IM GRAN % 0.400 Result Comment: IG% - Immature Granulocytes (promyelocytes, myelocytes and metamyelocytes) > 1% indicates that a LEFT SHIFT is Present. LAB L100.2620 2.0-7.7 X10 3/uL Normal Absolute Neut 3.4 LAB L100.2720 0.83-4.51 X10 3/ul Normal Absolute Lymph 3.74 Performed By: #### L100.0100 #### [facility] [address] [place], [address] ALLERGIES ALLERGIES DATE TYPE / CODE NAME / CODE REACTION SEVERITY SOURCE 03/30/2018 Drug clavulanic Rash Unknown [place] Allergy/[id number](S acid/[id number] [facility] NOMED CT) (RXNORM) Hospital Repository 03/30/2018 Drug amoxicillin/F00 Rash Unknown [place] Allergy/421257948(S 9461815(RXNORM) [facility]) Hospital Repository 03/25/2018 Drug Sulfa Unknown Unknown [place] Allergy/733191226(S (Sulfonamide [facility]) Antibiotics)/F0 Hospital [id number](RXNORM Repository ) 03/25/2018 Drug quinine/D050092 Unknown Unknown [place] Allergy/897366792(S 934(RXNORM) [facility] CT) Hospital Repository 03/25/2018 Drug hydroxychloroqu Unknown [place] Allergy/321259930(S ine/[id number]( [facility] NOMED CT) RXNORM) Hospital Repository 03/25/2018 Drug pineapple/F0060 Rash Unknown [place] Allergy/788283451(S 60384(RXNORM) [facility] CT) Hospital Repository 03/25/2018 Drug strawberry/F006 Rash Unknown [place] Allergy/334379090(S 658641[facility] 03/25/2018 Drug escitalopram/F0 Rash Unknown [place] Allergy/168180314(S 37284159(RXNORM [facility] NOMED CT) ) Hospital Repository 03/25/2018 Drug shellfish Unknown Unknown [place] Allergy/603470282(S derived/N988195 [facility] CT) 754(RXNORM) Hospital Repository 03/25/2018 Drug perfume/R953601 Unknown Unknown [place] Allergy/311362837(S 110(RXNORM) [facility] NOM CT) Hospital Repository 03/25/2018 Miscellaneous DUST Unknown Unknown [place] Allergy/032431161(S [facility]) Hospital Repository ENCOUNTERS ENCOUNTERS ADMIT/DISCHARGE ACCOUNT ADMITTING ENCOUNTER LOCATION SOURCE NUMBER CLASS 09/06/2018 [id number] Ambulatory [place] 0 [facility] ing:LAB.FUTUR Repository E 08/17/2018 [id number] Ambulatory [place] 5 [facility] ing:LAB Repository 08/03/2018/ [id number] Ambulatory BMSBuilding:B [place] 8 2 [facility] Repository 08/01/2018 [id number] Ambulatory [place] 2 [facility] ing:LAB.FUTUR Repository E 06/09/2018 [id number] Ambulatory [place] 5 [facility] ing:LAB Repository 05/18/2018 [id number] Ambulatory [place] 2 [facility] ing:LAB Repository 04/15/2018 [id number] Ambulatory [place] 5 [facility] ing:LAB.FUTUR Repository E 04/08/2018/ [id number] Ambulatory BMSBuilding:B [place] 8 6 [facility] Repository 04/04/2018 [id number] Ambulatory [place] 3 [facility] ing:LAB.FUTUR Repository E 03/25/2018/ [id number] Karel Max Inpatient [place] 8 7 Encounter [facility] ing:PCURoom: Repository [id number]: 1 03/25/2018 [id number] Karel Max Ambulatory BMSBuilding:B [place] 5 [facility] Repository 03/25/2018 [id number] Karel Max Ambulatory BMSBuilding:B [place] 8 [facility] Repository 03/25/2018 [id number] Karel Max Ambulatory BMSBuilding:B [place] 4 [facility] Repository 03/25/2018 [id number] Karel Max Ambulatory BMSBuilding:B [place] 9 [facility] Repository 03/25/2018 [id number] Karel Max Ambulatory BMSBuilding:B [place] 4 [facility] Repository 03/25/2018/ [id number] Ambulatory BMSBuilding:W [place] 8 5 [facility] Repository 03/25/2018/ [id number] Ambulatory BMSBuilding:W [place] 8 7 [facility] Repository 03/25/2018/ [id number] Ambulatory BMSBuilding:W [place] 8 2 [facility] Repository 03/25/2018 [id number] Ambulatory BMSBuilding:B [place] 3 [facility] Repository 01/28/2018/ [id number] Ambulatory BMSBuilding:B [place] 8 1 [facility] Repository 01/25/2018 [id number] Ambulatory BMS [place] 8 [facility] Repository 01/03/2018 [id number] [facility] ing:LAB.FUTUR Repository E 12/31/2017/ [id number] Ambulatory BMSBuilding:B [place] 8 4 [facility] Repository 12/21/2017 [id number] Ambulatory [place] 6 [facility] ing:LAB.FUTUR Repository E 11/22/2017/ [id number] Ambulatory BMSBuilding:B [place] 8 5 [facility] Repository 11/17/2017/ [id number] Emergency [place] 8 4 [facility] ing:ED Repository 11/16/2017 [id number] Ambulatory BMSBuilding:B [place] 1 [facility] Repository 11/15/2017 [id number] Ambulatory BMSBuilding:B [place] 5 [facility] Repository 11/15/2017/ [id number] Ambulatory [place] 8 3 [facility] ing:CLSPRoom: Repository [id number] 11/15/2017 [id number] Ambulatory BMSBuilding:W [place] 0 [facility] Repository 11/05/2017 [id number] Ambulatory [place] 9 [facility] ing:LAB Repository 11/05/2017/ [id number] Ambulatory BMSBuilding:B [place] 8 7 [facility] Repository 11/03/2017 [id number] Ambulatory [place] 6 [facility] ing:MTLAB Repository 11/01/2017 [id number] Ambulatory [place] 1 [facility] ing:CVS Repository 11/01/2017 [id number] Ambulatory BMSBuilding:W [place] 3 [facility] Repository 10/29/2017/ [id number] Ambulatory BMSBuilding:B [place] 8 3 [facility] Repository 10/29/2017 [id number] Ambulatory BMSBuilding:B [place] 2 [facility] Repository 10/21/2017 [id number] Ambulatory [place] 5 [facility] ing:POLAB3 Repository 10/21/2017 [id number] Ambulatory [place] 0 [facility] ing:LAB.FUTUR Repository E 10/13/2017/ [id number] Emergency [place] 8 9 [facility] ing:ED Repository 10/13/2017 [id number] Ambulatory BMSBuilding:B [place] 3 [facility] Repository 10/06/2017/ [id number] Karel Max Inpatient [place] 8 2 [facility] ing:PCURoom: Repository [id number]: 1 10/06/2017 [id number] Karel Max Ambulatory BMSBuilding:B [place] 3 [facility] Repository 10/06/2017 [id number] Karel Max Ambulatory BMSBuilding:B [place] 8 [facility] Repository 10/06/2017 [id number] Karel Max Ambulatory BMSBuilding:B [place] 7 [facility] Repository 10/06/2017 [id number] Karel Max Ambulatory BMSBuilding:B [place] 6 MS.WIP [facility] Repository 10/06/2017/ [id number] Ambulatory BMSBuilding:[place] [address] [facility] Repository PAYERS PAYERS ENCOUNTER GUARANTOR PAYER SUBSCRIBER SOURCE 09/06/2018 JUDITH Garner Primary UDOMPORN [place] [id number] Insurance:HUMANA WEAVERDOB: [id number] Number[place] Repository [address]Fzg: 330 [id number] [phone] (HP) Date:3334-52-77Dm [address] [address]SQ: 09/06/2018 Secondary NOT GIVENUNK [place] Insurance:SELF PAY [facility] Number: Effective Repository Date:2018-09-05 08/17/2018 JUDITH Garner Primary UDOMPORN [place] [id number] Insurance:HUMANA WEAVERDOB: Community [place] [id number] Number[place] Repository 20227Gux: 330 [id number] [phone] (HP) Date:9317-98-31Gi[address] [address]EJ: 08/17/2018 Secondary NOT GIVENUNK [place] Insurance:SELF PAY [facility] Number: Effective Repository Date:2018-08-17 08/03/2018 JUDITH Garner Primary UDOMPORN [place] [id number] Insurance:HUMANA WEAVERDOB: Community [place] [id number] Number[place] Repository [address]Qqa: 330 [id number] [phone] (HP) Date:8784-86-71Lf[address] [address]YN: 08/03/2018 Secondary NOT GIVENUNK [place] Insurance:SELF PAY [facility] Number: Effective Repository Date:2018-08-03 08/01/2018 JUDITH Garner Primary UDOMPORN [place] [id number] Insurance:HUMANA WEAVERDOB: Community [place] [id number] Number[place] Repository [address]Sem: 330 [id number] [phone] () Date:7997-39-58Ck [address] [address]EP: 08/01/2018 Secondary NOT GIVENUNK [place] Insurance:SELF PAY [facility] Number: Effective Repository Date:2018-08-01 06/09/2018 JUDITH Garner Primary UDOMPORN [place] [id number] Insurance:HUMANA WEAVERDOB: Community [place] [id number] Number[place] Repository 98[address]Juo: 330 [id number] [phone] (HP) Date:9607-19-24Ty[address] [address]XR: 06/09/2018 Secondary NOT GIVENUNK [place] Insurance:SELF PAY [facility] Number: Effective Repository Date:2018-06-09 05/18/2018 JUDITH Garner Primary UDOMPORN [place] [id number] Insurance:HUMANA WEAVERDOB: Community [place] [id number] Number[place] Repository [address]Guw: (330 [id number] [phone] (HP) Date:9123-21-27Uu [address] [address]OR: 05/18/2018 Secondary NOT GIVENUNK [place] Insurance:SELF PAY [facility] Number: Effective Repository Date:2018-05-18 04/15/2018 JUDITH Garner Primary UDOMPORN [place] [id number] Insurance:HUMANA WEAVERDOB: Community [place] [id number][place] Number[place] Repository [address]Wzm: (330) [id number] [phone] (HP) Date:3467-65-72Ys [address] [address]SA: 04/15/2018 Secondary NOT GIVENUNK [place] Insurance:SELF PAY [facility] Number: Effective Repository Date:2017-12-29 04/08/2018 JUDITH Garner Primary UDOMPORN [place] [id number] Insurance:HUMANA WEAVERDOB: Community [place] [id number] Number[place] Repository 339[address]Tvj: (330) [id number] [phone] (HP) Date:4938-25-81Lw [address] [address]WI: 04/08/2018 Secondary NOT GIVENUNK [place] Insurance:SELF PAY [facility] Number: Effective Repository Date:2018-04-08 04/04/2018 JUDITH Garner Primary UDOMPORN [place] [id number] Insurance:HUMANA WEAVERDOB: Community [place] [id number] Memorial Hospital [place] Number: Repository [address]Cmz: (330) [id number] [phone] (HP) Date:0457-48-02Ag [address] [address]KC: 04/04/2018 Secondary NOT GIVENUNK [place] Insurance:SELF PAY [facility] Number: Effective Repository Date:2018-04-04 03/25/2018 JUDITH Garner Primary UDOMPORN [place] [id number] Insurance:HUMANA WEAVERDOB: Community [place] [id number] Memorial Hospital [place] Number: Repository [address]Chf: (330) [id number] [phone] (HP) Date:2111-34-33Gf [address] [address]ZW: 03/25/2018 Secondary NOT GIVENUNK [place] Insurance:SELF PAY [facility] Number: Effective Repository Date:2018-03-25 03/25/2018 JUDITH A Primary UDOMPORN [place] [id number] Insurance:HUMANA WEAVERDOB: Community [place] [id number] Number[place] Repository 88[address]Ruo: (330) [id number] [phone] (HP) Date:3613-67-69Ag [address] [address]CJ: 03/25/2018 Secondary NOT GIVENUNK [place] Insurance:SELF PAY [facility] Number: Effective Repository Date:2018-03-25 03/25/2018 JUDITH Garner Primary UDOMPORN [place] [id number] Insurance:HUMANA WEAVERDOB: Community [place] [id number] Number: Repository 314[address]Jdf: (330) [id number] [phone] (HP) Date:8766-37-53Lr [address] [address]XQ: 03/25/2018 Secondary NOT GIVENUNK [place] Insurance:SELF PAY [facility] Number: Effective Repository Date:2018-03-25 03/25/2018 JUDITH Garner Primary UDOMPORN [place] [id number] Insurance:HUMANA WEAVERDOB: Community [place] [id number] Number[place] Repository [address]Wnf: (330 [id number] [phone] (HP) Date:8766-88-70Dk [address] [address]DR: 03/25/2018 Secondary NOT GIVENUNK [place] Insurance:SELF PAY [facility] Number: Effective Repository Date:2018-03-25 03/25/2018 JUDITH Garner Primary UDOMPORN [place] [id number] Insurance:HUMANA WEAVERDOB: Community [place] [id number] Number[place] Repository 57[address]Xxd: (330 [id number] [phone] (HP) Date:5960-47-30Yk [address] [address]EA: 03/25/2018 Secondary NOT GIVENUNK [place] Insurance:SELF PAY [facility] Number: Effective Repository Date:2018-03-25 03/25/2018 JUDITH Garner Primary UDOMPORN [place] [id number] Insurance:HUMANA WEAVERDOB: Community [place] [id number] Number[place] Repository [address]Vzt: 330 [id number] [phone] Date:2799-98-48Ei [address] [address]GC: 03/25/2018 Secondary NOT GIVENUNK [place] Insurance:SELF PAY [facility] Number: Effective Repository Date:2018-03-25 03/25/2018 JUDITH Garner Primary UDOMPORN [place] [id number] Insurance:HUMANA WEAVERDOB: Community [place] [id number] Number[place] Repository [address]Ijz: 330 [id number] [phone] (HP) Date:2768-70-26Ec [address] [address]JH: 03/25/2018 Secondary NOT GIVENUNK [place] Insurance:SELF PAY [facility] Number: Effective Repository Date:2018-03-25 03/25/2018 JUDITH Garner Primary UDOMPORN [place] [id number] Insurance:HUMANA WEAVERDOB: Community [place] [id number] Number[place] Repository [address]Njz: 330 [id number] [phone] (HP) Date:5356-92-06Xx [address] [address]OS: 03/25/2018 Secondary NOT GIVENUNK [place] Insurance:SELF PAY [facility] Number: Effective Repository Date:2018-03-25 03/25/2018 JUDITH Garner Primary UDOMPORN [place] [id number] Insurance:HUMANA WEAVERDOB: Community [place] [id number] Number[place] Repository 97[address]Fqk: 330 [id number] [phone] (HP) Date:7515-74-88Lf [address] [place] [address]KG: 03/25/2018 Secondary NOT GIVENUNK [place] Insurance:SELF PAY [facility] Number: Effective Repository Date:2018-03-25 03/25/2018 JUDITH Garner Primary UDOMPORN [place] [id number] Insurance:HUMANA WEAVERDOB: [facility] MEDICARE OPolicy [id number] [facility] [place] Number: Repository [address]Epj: 330 [id number] [phone] () Date:7222-76-88Tm [address] [place] [address]MI: 03/25/2018 Secondary NOT GIVENUNK [place] Insurance:SELF PAY [facility] Number: Effective Repository Date:2018-03-25 01/28/2018 JUDITH Garner Primary UDOMPORN [place] [id number] Insurance:HUMANA WEAVERDOB: Community [place] [id number] Memorial Hospital [place] Number: Repository [address]Kor: [id number] [phone] Date:7813-09-29Ne Box () [address] [place] [address]ZM: 01/28/2018 Secondary NOT GIVENUNK [place] Insurance:SELF PAY [facility] Number: Effective Repository Date:2018-01-28 01/25/2018 JUDITH Garner Primary UDOMPORN [place] [id number] Insurance:HUMANA WEAVERDOB: Community [place] [id number] Memorial Hospital [place] Number: Repository [address]Cat: [id number] [phone] Date:7452-20-18Ak Box () [address] [place] [address]MY: 01/25/2018 Secondary NOT GIVENUNK [place] Insurance:SELF [facility]Y [facility] Number: Effective Repository Date:2018-01-25 01/03/2018 JUDITH Garner Primary UDOMPORN [place] [id number] Insurance:HUMANA WEAVERDOB: Community [place] [id number] Number[place] Repository [address]Deg: [id number] [phone] Date:1955-58-97Vr Box () [address] [place] [address]OK: 01/03/2018 Secondary NOT GIVENUNK [place] Insurance:SELF PAY [facility] Number: Effective Repository Date:2018-01-03 12/31/2017 JUDITH Garner Primary UDOMPORN [place] [id number] Insurance:HUMANA WEAVERDOB: Community [place] [id number] Number[place] Repository [address]Hez: [id number] [phone] Date:8255-17-24Wz Box () [address] [place] [address]IE: 12/31/2017 Secondary NOT GIVENUNK [place] Insurance:SELF PAY [facility] Number: Effective Repository Date:2017-12-31 12/21/2017 JUDITH Garner Primary UDOMPORN [place] [id number] Insurance:HUMANA WEAVERDOB: Community [place] [id number] Number[place] Repository 379[address]Pnx: [id number] [phone] Date:3550-75-12Ah Box () [address] [place] [address]SC: 12/21/2017 Secondary NOT GIVENUNK [place] Insurance:SELF PAY [facility] Number: Effective Repository Date:2017-10-11 11/22/2017 JUDITH Garner Primary UDOMPORN [place] [id number] Insurance:HUMANA WEAVERDOB: Community [place] [id number] Number[place] Repository 226[address]Ujy: [id number] [phone] Date:2950-62-69Zk Box () [address] [place] [address]CY: 11/22/2017 Secondary NOT GIVENUNK [place] Insurance:SELF PAY [facility] Number: Effective Repository Date:2017-11-22 11/17/2017 JUDITH Garner Primary UDOMPORN [place] [id number] Insurance:HUMANA WEAVERDOB: Community [place] [id number] Number: Repository 85[address]Snv: [id number] [phone] Date:0403-46-41Ry Box () [address] [place] [address]MU: 11/17/2017 Secondary NOT GIVENUNK [place] Insurance:SELF PAY [facility] Number: Effective Repository Date:2017-11-17 11/16/2017 Judith Garner Primary UDOMPORN N [place] [id number] Insurance:HUMANA WEAVERDOB: Community [place] [id number] Number: Repository [address]Xyx: [id number] [phone] Date:4813-91-00Fa Box () [address] [place] [address]SC: 11/16/2017 Secondary NOT GIVENUNK [place] Insurance:SELF PAY [facility] Number: Effective Repository Date:2017-11-16 11/15/2017 Judith Garner Primary UDOMPORN N [place] [id number] Insurance:HUMANA WEAVERDOB: Community [place] [id number] Number[place] Repository 127[address]Nks: [id number] [phone] Date:8290-06-58Yl Box () [address] [place] [address]JN: 11/15/2017 Secondary NOT GIVENUNK [place] Insurance:SELF PAY [facility] Number: Effective Repository Date:2017-11-15 11/15/2017 Judith Garner Primary UDOMPORN N [place] [id number] Insurance:HUMANA WEAVERDOB: Community [place] [id number] Number[place] Repository [address]Vrb: [id number] [phone] Date:5129-01-07Tq Box () [address] [place] [address]PK: 11/15/2017 Secondary NOT GIVENUNK [place] Insurance:SELF PAY [facility] Number: Effective Repository Date:2017-11-03 11/15/2017 JUDITH Garner Primary UDOMPORN [place] [id number] Insurance:HUMANA WEAVERDOB: Community [place] [id number] Number[place] Repository 12[address]Ojo: [id number] [phone] Date:4931-85-07Zi Box () [address] [place] [address]DS: 11/15/2017 Secondary NOT GIVENUNK [place] Insurance:SELF PAY [facility] Number: Effective Repository Date:2017-11-15 11/05/2017 Judith Garner Primary UDOMPORN N [place] [id number] Insurance:HUMANA WEAVERDOB: Community [place] [id number] Number: Repository 27[address]Ogg: [id number] [phone] Date:7494-63-65Hg Box () [address] [place] [address]OK: 11/05/2017 Secondary NOT GIVENUNK [place] Insurance:SELF PAY [facility] Number: Effective Repository Date:2017-11-05 11/05/2017 Judith Garner Primary UDOMPORN N [place] [id number] Insurance:HUMANA WEAVERDOB: Community [place] [id number] Number: Repository [address]Ono: [id number] [phone] Date:9849-39-27Ld Box () [address] [place] [address]WO: 11/05/2017 Secondary NOT GIVENUNK [place] Insurance:SELF PAY [facility] Number: Effective Repository Date:2017-11-03 11/03/2017 JUDITH Garner Primary UDOMPORN [place] [id number] Insurance:HUMANA WEAVERDOB: Community [place] [id number] Suburban Medical [facility], [place] Number: Repository [address]Iex: [id number] [phone] Date:4766-65-86Hf Box () [address] [place] [address]CZ: 11/03/2017 Secondary NOT GIVENUNK [place] Insurance:SELF PAY [facility] Number: Effective Repository Date:2017-11-03 11/01/2017 Judith Garner Primary NOT GIVENUNK [place] [id number] Insurance:SELF PAY [facility] Number: Effective Repository [address]Lsj: Date:2017-10-29 ~330-4 () 11/01/2017 JUDITH Garner Primary UDOMPORN [place] [id number] Insurance:HUMANA WEAVERDOB: Community [place] [id number] Suburban Medical Center, [place] Number: Repository [address]Hqy: [id number] [phone] Date:8248-26-81Sx Box () [address] [place] [address]NC: 11/01/2017 Secondary NOT GIVENUNK [place] Insurance:SELF PAY [facility] Number: Effective Repository Date:2017-11-01 10/29/2017 Judith Garner Primary UDOMPORN N [place] [id number] Insurance:HUMANA WEAVERDOB: Community [place] [id number] Suburban Medical Center, [place] Number: Repository [address]Bjp: [id number] [phone] Date:4574-16-97Sr Box () [address] [place] [address]NM: 10/29/2017 Secondary NOT GIVENUNK [place] Insurance:SELF PAY [facility] Number: Effective Repository Date:2017-08-05 10/29/2017 Judith Garner Primary UDOMPORN N [place] [id number] Insurance:HUMANA WEAVERDOB: Community [place] [id number] Number: Repository 596[address]Vfg: [id number] [phone] Date:2992-53-24Nn Box () [address] [place] [address]CS: 10/29/2017 Secondary NOT GIVENUNK [place] Insurance:SELF PAY [facility] Number: Effective Repository Date:2017-10-29 10/21/2017 Judith A Primary UDOMPORN N [place] [id number] Insurance:HUMANA WEAVERDOB: Community [place] [id number] Number[place] Repository 00150Kza: [id number] [phone] Date:0192-85-32Lu Box () [address] [place] [address]ZU: 10/21/2017 Secondary NOT GIVENUNK [place] Insurance:SELF PAY [facility] Number: Effective Repository Date:2017-10-21 10/21/2017 Judith Garner Primary UDOMPORN N [place] [id number] Insurance:HUMANA WEAVERDOB: Community [place] [id number] Number[place] Repository 0[address]Qhy: [id number] [phone] Date:4689-28-97Cv Box () [address] [place] [address]TB: 10/21/2017 Secondary NOT GIVENUNK [place] Insurance:SELF PAY [facility] Number: Effective Repository Date:2017-10-18 10/13/2017 Judith Garner Primary UDOMPORN N [place] [id number] Insurance:HUMANA WEAVERDOB: Community [place] [id number] [facility] [place] Number: Repository [address]Rha: [id number] [phone] Date:8756-15-80Me Box () [address] [place] [address]YW: 10/13/2017 Secondary NOT GIVENUNK [place] Insurance:SELF PAY [facility] Number: Effective Repository Date:2017-10-13 10/13/2017 Judith Garner Primary UDOMPORN N [place] [id number] Insurance:HUMANA WEAVERDOB: Community [place] [place] [id number] Repository 78968Wgq: [id number] [phone] Date:6904-29-53Xg Box () [address] [place] [address]IL: 10/13/2017 Secondary NOT GIVENUNK [place] Insurance:SELF PAY [facility] Number: Effective Repository Date:2017-10-13 10/06/2017 Judith Garner Primary UDOMPORN [place] [id number] Insurance:HUMANA WEAVERDOB: Community [place] [id number] Number[place] Repository [address]Efx: [id number] [phone] Date:9167-75-86Yf Box () [address] [place] [address]EE: 10/06/2017 Secondary NOT GIVENUNK [place] Insurance:SELF PAY [facility] Number: Effective Repository Date:2017-10-06 10/06/2017 Judith Garner Primary UDOMPORN [place] [id number] Insurance:HUMANA WEAVERDOB: Community [place] [id number] Number[place] Repository 66397Wxz: [id number] [phone] Date:2445-57-79Ip Box () [address] [place], [place] 9[address]WP: 10/06/2017 Secondary NOT GIVENUNK [place] Insurance:SELF PAY [facility] Number: Effective Repository Date:2017-10-06 10/06/2017 Judith Garner Primary UDOMPORN N [place] [id number] Insurance:HUMANA WEAVERDOB: [place] [id number] Memorial Hospital [place] Number: Repository [address]Moc: [id number] [phone] Date:8240-31-94Ak Box () [address] [place] [address]UX: 10/06/2017 Secondary NOT GIVENUNK [place] Insurance:SELF PAY [facility] Number: Effective Repository Date:2017-10-06 10/06/2017 Judith Garner Primary UDOMPORN [place] [id number] Insurance:HUMANA WEAVERDOB: [place] [id number] Suburban Medical [facility], [place] Number: Repository [address]Saa: [id number] [phone] Date:6834-33-57Ro Box () [address] [place] [address]WW: 10/06/2017 Secondary NOT GIVENUNK [place] Insurance:SELF PAY [facility] Number: Effective Repository Date:2017-10-06 10/06/2017 Judith Garner Primary UDOMPORN N [place] [id number] Insurance:HUMANA WEAVERDOB: [place] [employer] [place] [id number] Memorial Hospital [place] Number: Repository [address]Xwt: [id number] [phone] Date:4166-02-21Vz Box () [address] [place] [address]GT: 10/06/2017 Secondary NOT GIVENUNK [place] Insurance:SELF PAY [facility] Number: Effective Repository Date:2017-10-06 10/06/2017 Judith Garner Primary UDOMPORN N [place] [id number] Insurance:HUMANA WEAVERDOB: [place] [employer] PP[place] [id number] Repository [address]Vai: [id number] [phone] Date:9027-13-85Zf Box ) [address] [address]YL: 10/06/2017 Secondary NOT GIVENUNK [place] Insurance:SELF PAY [facility] Number: Effective Repository Date:2017-10-06
== END ==
PROVIDERS: Family Provider Internal Medicine; PCP Internal Medicine; Referring Provider Psychiatry & Neurology Neurology; Visit Provider Psychiatry & Neurology Neurology
DX: G40.019 Localization-related (focal) (partial) idiopathic epilepsy and epileptic syndromes with seizures of localized onset, intractable, without status epilepticus (principal)
CPT/HCPCS: 36415; 80053; 80164; 82542

== ENCOUNTER → 2018-09-06 13:35 | Outpatient (CLI) | payer MEDICARE, SELFPAY ==
[2018-08-01 13:11] VITALS: BMI 32.1
[2018-09-06 15:37] LABS: Albumin, Serum 3.4 g/dL (3.2-5.0); BUN 14 mg/dL (7-18); Calcium,Total 9.3 mg/dL (8.5-10.1); Chloride 102 mmol/L (98-107); Creatinine, Serum 0.87 mg/dL (0.55-1.02); EST Glomerular Filtration Rate 69 mL/min (>60); Est Glom Filt Rate - Afr Amer 83 mL/min (>60); Glucose 179 mg/dL (74-106); Phosphorus 3.7 mg/dL (2.5-4.9); Potassium 4.5 mmol/L (3.5-5.1); Sodium Level 142 mmol/L (136-145)
== END ==
PROVIDERS: Family Provider Internal Medicine; PCP Internal Medicine; Referring Provider Internal Medicine Nephrology; Visit Provider Internal Medicine Nephrology
DX: R80.9 Proteinuria, unspecified (principal)
CPT/HCPCS: 36415; 80069

== ENCOUNTER → 2018-10-14 13:34 | Outpatient (CLI) | payer MEDICARE, SELFPAY ==
[2018-08-01 13:11] VITALS: BMI 32.1
[2018-10-14 14:35] LABS: Hematocrit 40.6 % (37-47); Hemoglobin 12.6 g/dl (12.0-15.0); Mean Corpuscular Hgb 27.5 pg (27.0-32.0); Mean Corpuscular Volume 88.6 fL (81-99); Mean Platelet Vol. 10.6 fl (6.2-12.0); Platelet Count 160 K/mm3 (150-450); RBC Distribution Width CV 14.6 % (11.6-14.6); RBC Distribution Width SD 46.5 fl (35.1-43.9); Red Blood Count 4.58 M/mm3 (4.2-5.4); White Blood Count 6.8 K/mm3 (4.4-11.0)
[2018-10-14 14:37] LABS: Scan Indicated on CBC? Y/N NO
[2018-10-14 14:47] LABS: Protein, Urine (Random) 244.9 mg/dL (<11.9); Protein:Creat Ratio 1633 mg/g CRE (0-200)
[2018-10-14 15:00] LABS: BUN 19 mg/dL (7-18); Creatinine, Serum 0.77 mg/dL (0.55-1.02); EST Glomerular Filtration Rate 79 mL/min (>60); Glucose 199 mg/dL (74-106)
[2018-10-14 15:01] LABS: Albumin, Serum 3.6 g/dL (3.2-5.0); BUN/Creat Ratio 24.5 RATIO (10-20); Calcium,Total 8.9 mg/dL (8.5-10.1); Chloride 103 mmol/L (98-107); Est Glom Filt Rate - Afr Amer 96 mL/min (>60); Phosphorus 3.6 mg/dL (2.5-4.9); Potassium 4.5 mmol/L (3.5-5.1); Sodium Level 138 mmol/L (136-145)
== END ==
PROVIDERS: Family Provider Internal Medicine; PCP Internal Medicine; Referring Provider Internal Medicine Nephrology; Visit Provider Internal Medicine Nephrology
DX: D64.9 Anemia, unspecified (principal); R80.9 Proteinuria, unspecified
CPT/HCPCS: 36415; 80069; 82570; 84156; 85027

== ENCOUNTER → 2018-10-18 14:41 | Outpatient (CLI) | payer MEDICARE, SELFPAY ==
[2018-08-01 13:11] VITALS: BMI 32.1
[2018-10-18 16:18] LABS: Valproic Acid (Depakene) Level 58 ug/mL (50-100)
== END ==
PROVIDERS: Family Provider Internal Medicine; PCP Internal Medicine; Referring Provider Psychiatry & Neurology Neurology; Visit Provider Psychiatry & Neurology Neurology
DX: G40.019 Localization-related (focal) (partial) idiopathic epilepsy and epileptic syndromes with seizures of localized onset, intractable, without status epilepticus (principal); F44.5 Conversion disorder with seizures or convulsions
CPT/HCPCS: 36415; 80164

== ENCOUNTER → 2019-02-14 | Outpatient (CLI) | payer MEDICARE, SELFPAY ==
[2018-11-01 13:31] VITALS: BMI 34.7
[2019-02-14 14:08] LABS: Protein, Urine (Random) 50.5 mg/dL (<11.9); Protein:Creat Ratio 443 mg/g CRE (0-200)
[2019-02-14 14:24] LABS: Albumin, Serum 3.3 g/dL (3.2-5.0); BUN 19 mg/dL (7-18); BUN/Creat Ratio 18.6 RATIO (10-20); Chloride 104 mmol/L (98-107); Creatinine, Serum 1.02 mg/dL (0.55-1.02); EST Glomerular Filtration Rate 58 mL/min (>60); Est Glom Filt Rate - Afr Amer 70 mL/min (>60); Glucose 146 mg/dL (74-106); Phosphorus 3.3 mg/dL (2.5-4.9); Potassium 4.5 mmol/L (3.5-5.1); Sodium Level 140 mmol/L (136-145)
== END | disposition home or self-care (01) ==
PROVIDERS: Family Provider Internal Medicine; PCP Internal Medicine; Referring Provider Internal Medicine Nephrology; Visit Provider Internal Medicine Nephrology
DX: E11.21 Type 2 diabetes mellitus with diabetic nephropathy (principal)
CPT/HCPCS: 36415; 80069; 82570; 84156

== ENCOUNTER → 2019-04-10 | Outpatient (CLI) | payer MEDICARE, SELFPAY ==
[2018-11-01 13:31] VITALS: BMI 34.7
[2019-04-10 12:59] LABS: Valproic Acid (Depakene) Level 86 ug/mL (50-100)
[2019-04-10 13:11] LABS: ALB/GLOB Ratio 0.6 RATIO (0.9-2.4); AST(SGOT) 16 U/L (15-37); Alanine Aminotransfer ALT/SGPT < 6 U/L (13-56); Albumin, Serum 3.3 g/dL (3.2-5.0); Alkaline Phosphatase 48 U/L (45-117); Anion Gap 6 (5-15); BUN 13 mg/dL (7-18); BUN/Creat Ratio 20.4 RATIO (10-20); Chloride 103 mmol/L (98-107); Creatinine, Serum 0.64 mg/dL (0.55-1.02); EST Glomerular Filtration Rate 99 mL/min (>60); Est Glom Filt Rate - Afr Amer 120 mL/min (>60); Globulin 5.1 g/dL (2.2-4.2); Glucose 137 mg/dL (74-106); Potassium 4.6 mmol/L (3.5-5.1); Protein, Total 8.4 g/dL (6.4-8.2); Sodium Level 137 mmol/L (136-145)
== END | disposition home or self-care (01) ==
PROVIDERS: Family Provider Internal Medicine; PCP Internal Medicine; Referring Provider Psychiatry & Neurology Neurology; Visit Provider Psychiatry & Neurology Neurology
DX: G40.019 Localization-related (focal) (partial) idiopathic epilepsy and epileptic syndromes with seizures of localized onset, intractable, without status epilepticus (principal); R25.1 Tremor, unspecified
CPT/HCPCS: 36415; 80053; 80164

== ENCOUNTER → 2019-06-29 14:14 | Outpatient (CLI) | payer MEDICARE, SELFPAY ==
[2018-11-01 13:31] VITALS: BMI 34.7
[2019-06-29 15:59] LABS: Absolute Lymphocyte Count 1.94 X10^3/uL (0.83-4.51); Absolute Neutrophil Count 3.4 X10^3/uL (2.0-7.7); Basophil# 0.02 X10^3/uL; Basophil% 0.3 % (0-1); Eosinophil# 0.05 X10^3/uL; Eosinophils% 0.8 % (0-5); Hematocrit 37.7 % (37-47); Hemoglobin 11.6 g/dL (12.0-15.0); Lymphocyte # 1.94 X10^3/ul (4.0); Lymphocyte % 31.9 % (19-41); Mean Corp Hgb Conc 30.8 g/dL (32-36); Mean Corpuscular Hgb 27.4 pg (27.0-32.0); Mean Corpuscular Volume 89.1 fL (81-99); Mean Platelet Vol. 9.8 fl (6.2-12.0); Monocyte# 0.61 X10^3/uL; NRBC Flagged by Analyzer 0 % (0-5); Neutrophil # 3.41 X10^3/uL (2.7-7.7); Platelet Count 160 K/mm3 (150-450); RBC Distribution Width CV 14.5 % (11.6-14.6); RBC Distribution Width SD 46.2 fl (35.1-43.9); Red Blood Count 4.23 M/mm3 (4.2-5.4); White Blood Count 6.1 K/mm3 (4.4-11.0)
[2019-06-29 16:35] LABS: ALB/GLOB Ratio 0.6 RATIO (0.9-2.4); AST(SGOT) 19 U/L (15-37); Alanine Aminotransfer ALT/SGPT < 6 U/L (13-56); Albumin, Serum 3.1 g/dL (3.2-5.0); Alkaline Phosphatase 58 U/L (45-117); Anion Gap 12 (5-15); BUN 15 mg/dL (7-18); BUN/Creat Ratio 14.9 RATIO (10-20); Calcium,Total 8.7 mg/dL (8.5-10.1); Chloride 100 mmol/L (98-107); Creatinine, Serum 1.01 mg/dL (0.55-1.02); EST Glomerular Filtration Rate 58 mL/min (>60); Est Glom Filt Rate - Afr Amer 70 mL/min (>60); Globulin 5.3 g/dL (2.2-4.2); Glucose 213 mg/dL (74-106); Potassium 4.4 mmol/L (3.5-5.1); Protein, Total 8.4 g/dL (6.4-8.2); Sodium Level 139 mmol/L (136-145)
[2019-06-29 16:53] LABS: Valproic Acid (Depakene) Level 76 ug/mL (50-100)
== END ==
PROVIDERS: Family Provider Internal Medicine; PCP Internal Medicine; Referring Provider Psychiatry & Neurology Neurology; Visit Provider Psychiatry & Neurology Neurology
DX: F41.9 Anxiety disorder, unspecified (principal); F44.5 Conversion disorder with seizures or convulsions; G40.019 Localization-related (focal) (partial) idiopathic epilepsy and epileptic syndromes with seizures of localized onset, intractable, without status epilepticus; R25.1 Tremor, unspecified; R56.9 Unspecified convulsions; Z68.32 Body mass index [BMI] 32.0-32.9, adult
CPT/HCPCS: 36415; 80053; 80164; 85025

== ENCOUNTER → 2019-08-07 13:16 | Outpatient (CLI) | payer MEDICARE, SELFPAY ==
[2018-11-01 13:31] VITALS: BMI 34.7
[2019-08-07 15:19] LABS: Protein, Urine (Random) 121.1 mg/dL (<11.9); Protein:Creat Ratio 1361 mg/g CRE (0-200)
[2019-08-07 15:45] LABS: Hematocrit 40.4 % (37-47); Hemoglobin 12.3 g/dL (12.0-15.0); Mean Corp Hgb Conc 30.4 g/dL (32-36); Mean Corpuscular Hgb 27.3 pg (27.0-32.0); Mean Corpuscular Volume 89.6 fL (81-99); Platelet Count 164 K/mm3 (150-450); RBC Distribution Width SD 45.2 fl (35.1-43.9); Red Blood Count 4.51 M/mm3 (4.2-5.4)
[2019-08-07 16:16] LABS: Albumin, Serum 3.3 g/dL (3.2-5.0); BUN 17 mg/dL (7-18); BUN/Creat Ratio 20.4 RATIO (10-20); Calcium,Total 9.3 mg/dL (8.5-10.1); Chloride 99 mmol/L (98-107); Creatinine, Serum 0.83 mg/dL (0.55-1.02); EST Glomerular Filtration Rate 72 mL/min (>60); Est Glom Filt Rate - Afr Amer 88 mL/min (>60); Glucose 241 mg/dL (74-106); Phosphorus 3.9 mg/dL (2.5-4.9); Potassium 4.8 mmol/L (3.5-5.1); Sodium Level 135 mmol/L (136-145)
== END ==
PROVIDERS: Family Provider Internal Medicine; PCP Internal Medicine; Referring Provider Internal Medicine Nephrology; Visit Provider Internal Medicine Nephrology
DX: E11.21 Type 2 diabetes mellitus with diabetic nephropathy (principal)
CPT/HCPCS: 36415; 80069; 82570; 84156; 85027

== ENCOUNTER → 2019-09-15 10:34 | Outpatient (CLI) | payer MEDICARE, SELFPAY ==
[2018-11-01 13:31] VITALS: BMI 34.7
[2019-09-15 11:42] LABS: Absolute Lymphocyte Count 2.35 X10^3/uL (0.83-4.51); Absolute Neutrophil Count 3.8 X10^3/uL (2.0-7.7); Basophil# 0.03 X10^3/uL; Basophil% 0.4 % (0-1); Eosinophil# 0.04 X10^3/uL; Eosinophils% 0.6 % (0-5); Hemoglobin 11.7 g/dL (12.0-15.0); Lymphocyte # 2.35 X10^3/ul (4.0); Lymphocyte % 34.1 % (19-41); Mean Corpuscular Hgb 26.1 pg (27.0-32.0); Mean Corpuscular Volume 87.1 fL (81-99); Mean Platelet Vol. 10.2 fl (6.2-12.0); Monocyte% 8.7 % (0-10); NRBC Flagged by Analyzer 0 % (0-5); Neutrophil # 3.82 X10^3/uL (2.7-7.7); Neutrophil % 55.5 % (47-70); Platelet Count 162 K/mm3 (150-450); RBC Distribution Width CV 14.5 % (11.6-14.6); RBC Distribution Width SD 46.1 fl (35.1-43.9); Red Blood Count 4.48 M/mm3 (4.2-5.4); White Blood Count 6.9 K/mm3 (4.4-11.0)
[2019-09-15 12:12] LABS: Valproic Acid (Depakene) Level 74 ug/mL (50-100)
[2019-09-15 12:14] LABS: ALB/GLOB Ratio 0.5 RATIO (0.9-2.4); AST(SGOT) 21 U/L (15-37); Alanine Aminotransfer ALT/SGPT < 6 U/L (13-56); Alkaline Phosphatase 59 U/L (45-117); Anion Gap 7 (5-15); BUN 13 mg/dL (7-18); BUN/Creat Ratio 17.1 RATIO (10-20); Calcium,Total 9.1 mg/dL (8.5-10.1); Chloride 101 mmol/L (98-107); Creatinine, Serum 0.76 mg/dL (0.55-1.02); EST Glomerular Filtration Rate 80 mL/min (>60); Est Glom Filt Rate - Afr Amer 97 mL/min (>60); Globulin 5.7 g/dL (2.2-4.2); Glucose 217 mg/dL (74-106); Potassium 4.6 mmol/L (3.5-5.1); Protein, Total 8.7 g/dL (6.4-8.2); Sodium Level 135 mmol/L (136-145)
== END ==
PROVIDERS: PCP Internal Medicine; Referring Provider Psychiatry & Neurology Neurology; Visit Provider Psychiatry & Neurology Neurology
DX: F41.9 Anxiety disorder, unspecified (principal); G40.019 Localization-related (focal) (partial) idiopathic epilepsy and epileptic syndromes with seizures of localized onset, intractable, without status epilepticus; R25.1 Tremor, unspecified; Z68.32 Body mass index [BMI] 32.0-32.9, adult
CPT/HCPCS: 36415; 80053; 80164; 85025

== ENCOUNTER → 2019-12-29 12:12 | Outpatient (CLI) | payer MEDICARE, SELFPAY ==
[2018-11-01 13:31] VITALS: BMI 34.7
[2019-11-02 12:46] VITALS: BMI 22.1
[2019-12-29 13:06] LABS: Protein, Urine (Random) 253.5 mg/dL (<11.9); Protein:Creat Ratio 6778 mg/g CRE (0-200)
[2019-12-29 13:16] LABS: Albumin, Serum 3.1 g/dL (3.2-5.0); BUN 9 mg/dL (7-18); BUN/Creat Ratio 15.4 RATIO (10-20); Calcium,Total 8.7 mg/dL (8.5-10.1); Chloride 107 mmol/L (98-107); Creatinine, Serum 0.58 mg/dL (0.55-1.02); EST Glomerular Filtration Rate 109 mL/min (>60); Est Glom Filt Rate - Afr Amer 132 mL/min (>60); Glucose 135 mg/dL (74-106); Sodium Level 141 mmol/L (136-145)
[2019-12-29 13:21] LABS: Vitamin D,25 Hydroxy 28.7 ng/mL
== END ==
PROVIDERS: Family Provider Internal Medicine; PCP Internal Medicine; Referring Provider Internal Medicine Nephrology; Visit Provider Internal Medicine Nephrology
DX: E11.21 Type 2 diabetes mellitus with diabetic nephropathy (principal); E55.9 Vitamin D deficiency, unspecified
CPT/HCPCS: 36415; 80069; 82306; 82570; 84156

== ENCOUNTER → 2020-01-02 | Outpatient (CLI) | payer MEDICARE, SELFPAY ==
[2019-11-02 12:46] VITALS: BMI 22.1
[2020-01-02 17:37] LABS: Protein, Urine (Random) 129.7 mg/dL (<11.9); Protein:Creat Ratio 3477 mg/g CRE (0-200)
== END | disposition home or self-care (01) ==
PROVIDERS: PCP Internal Medicine; Referring Provider Internal Medicine Nephrology; Visit Provider Internal Medicine Nephrology
DX: E11.21 Type 2 diabetes mellitus with diabetic nephropathy (principal)
CPT/HCPCS: 82570; 84156

== ENCOUNTER 2020-06-03 20:51 | Emergency (ER) | payer MEDICARE, SELFPAY ==
[2019-11-02 12:46] VITALS: BMI 22.1
[2020-06-03 20:52] VITALS: BP 192/96; PULSE 85; RESP 16; TEMP 36.8; O2SAT 95; BMI 30.2
--- NOTE | 2020-06-03 21:16 | CT_ITS ---
STUDY: CT CERVICAL SPINE WITHOUT CONTRAST REASON FOR EXAM: Female, 70 years old. S/P FALL IN SHOWER HITTING LEFT SIDE OF HEAD, PT IN COLLAR, NO LOC, HX BLOOD DISORDER AND SEIZURES, HX CVA, ARRYTHMIA,PACER, PT HAS HAD PRIOR LEFT SIDE BRAIN BLEED RADIATION DOSAGE (If Supplied By Facility): CTDIvol = ( 23.86 ) mGy, DLP = ( 496.11 ) mGycm TECHNIQUE: High resolution transaxial imaging was performed without contrast material. Sagittal and coronal images were reconstructed. Individualized dose optimization techniques were used for this CT. COMPARISON: None FINDINGS: Normal craniovertebral junction. Normal anterior atlantoaxial articulation. Normal odontoid process. Decreased cervical lordosis. Normal vertebral bodies and posterior osseous elements. C2-3: Normal endplates. Normal disc height and morphology. Normal central canal and intervertebral neuroforamina. C3-4: Minor endplate spurring.. Normal disc height and morphology. Normal central canal and intervertebral neuroforamina. C4-5: Narrowed disc space and endplate spurring. Normal central canal. Severe left neuroforaminal stenosis secondary to bony hypertrophy. C5-6: Narrowed disc space and endplate spurring. Normal central canal. Moderate left neuroforaminal stenosis secondary to bony hypertrophy. C6-7: Narrowed disc space and endplate spurring. Small central calcific disc/osteophyte protrusion mildly narrowing the central canal. Mild left neuroforaminal stenosis secondary to bony hypertrophy.. C7-T1: Normal endplates. Normal disc height and morphology. Normal central canal and intervertebral neuroforamina. Normal visualized soft tissue structures. CT/Spine Cervical without Contras IMPRESSION: No evidence for acute fracture or subluxation.. Moderate spondylosis and multilevel spinal stenosis secondary to bony hypertrophy Electronically Signed: Wenceslao Recio MD at 22:20 EDT , Service support ,
--- NOTE | 2020-06-03 21:16 | CT_ITS ---
STUDY: CT BRAIN WITHOUT CONTRAST REASON FOR EXAM: Female, 70 years old. S/P FALL IN SHOWER HITTING LEFT SIDE OF HEAD, PT IN COLLAR, NO LOC, HX BLOOD DISORDER AND SEIZURES, HX CVA, ARRYTHMIA,PACER, PT HAS HAD PRIOR LEFT SIDE BRAIN BLEED RADIATION DOSAGE (If Supplied By Facility): CTDIvol = ( 44.99 ) mGy, DLP = ( 846.73 ) mGycm TECHNIQUE: Transaxial CT imaging of the brain was performed without administration of intravenous contrast material. Individualized dose optimization techniques were used for this CT. COMPARISON: No relevant priors. FINDINGS: Normal soft tissue structures. Normal calvarium. Mild atrophy and periventricular white matter ischemic changes. Old right parieto-occipital infarct.. Normal basal ganglia and thalami. Normal brainstem. Normal cerebellum. Empty sella deformity likely of no significance There is no intracranial hemorrhage. There are no findings of an acute ischemic infarction. Small mucous retention cyst in right maxillary sinus CT/Brain/Head without Contrast IMPRESSION: Atrophy and periventricular white matter ischemic changes. 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 No evidence for acute intracranial bleed. Electronically Signed: Wenceslao Recio MD at 22:17 EDT , Service support ,
--- NOTE | 2020-06-03 21:17 | ED.DCSUM_ITS ---
History of Present Illness Chief Complaint: Fall Informant: Patient, Family, Insurance Representative Narrative: Patient states that she lost her balance in the bathroom and fell striking the left side of her head against the shower door as well as the left shoulder. She also notes pain in the neck and the left knee. No loss of consciousness. She has had prior intracranial hemorrhage on the left. states that she is due for seizure medicine in 15 minutes and really wants her to have it. EMS was called and she was placed in a c-collar and on a sled. - Past Medical History (1) Pseudoseizure Status: Chronic (2) Atrial fibrillation Status: Chronic (3) HLD (hyperlipidemia) Status: Chronic (4) HTN (hypertension) Status: Chronic (5) SDH (subdural hematoma) Status: Chronic (6) Seizure Status: Chronic (7) Tachy-maurizio syndrome Status: Chronic Past Medical History - Allergies and Home Meds Allergies/Adverse Reactions: Allergies amoxicillin [From Augmentin] Allergy (Verified 06/03/20 20:57) Rash RASH ON FACE clavulanic acid [From Augmentin] Allergy (Verified 06/03/20 20:57) Rash RASH ON FACE escitalopram [From Lexapro] Allergy (Verified 06/03/20 20:57) Rash shellfish derived Allergy (Verified 06/03/20 20:57) Unknown hydroxychloroquine [From Plaquenil] Adverse Reaction (Severe, Verified 06/03/20 20:57) Unknown perfume Adverse Reaction (Verified 06/03/20 20:57) Unknown pineapple Adverse Reaction (Verified 06/03/20 20:57) Rash quinine Adverse Reaction (Verified 06/03/20 20:57) Unknown strawberry Adverse Reaction (Verified 06/03/20 20:57) Rash Sulfa (Sulfonamide Antibiotics) Adverse Reaction (Verified 06/03/20 20:57) Unknown DUST Adverse Reaction (Uncoded 03/25/18 12:48) Unknown Primary Care Physician: Hannah Riggs DO [Primary Care Provider] - Prior records reviewed: Yes Lives: Spouse/ Significant Other Smoking Status: Never smoker Alcohol: None Drugs: None - Family History Maternal Family History: Family History (Last Reviewed 11/01/18 @ 13:[address] Mehul Pollock MD) Brother Heart disease Hypertension Diabetes Mother Hypertension Family History: Reports: No pertinent history Sibling Family History: Family History (Last Reviewed 11/01/18 @ 13:[address] Mehlu Pollock MD) Brother Heart disease Hypertension Diabetes Mother Hypertension Family History: Reports: Heart Disease Review of Systems General: Denies: Chills, Fever, Sweats Eyes: Denies: Visual changes - bilaterally, Diplopia ENT: Denies: Rhinorrhea, Sore throat Cardiovascular: Denies: Chest pain, Palpitations Respiratory: Denies: Dyspnea, Cough, Dyspnea on exertion Gastrointestinal: Denies: Abdominal pain, Nausea, Vomiting, Diarrhea, Melena, Hematochezia Genitourinary: Denies: Dysuria, Hematuria, Frequency Musculoskeletal: Reports: Neck pain, Extremity Pain. Denies: Back pain Skin: Denies: Rash, Wounds Neurological: Reports: Headache. Denies: Weakness, Numbness Physical Exam Vital Signs/Narrative: Vital Signs Temp Pulse Resp BP Pulse Ox 06/03/20 20:52 98.2 F 85 16 192/96 H 95 Inital Vital Signs reviewed: Yes General: Well nourished, Well developed, No Acute Distress Head: Normocephalic, Atraumatic Eyes: Perrl, EOMI ENT: Moist mucous membranes, No rhinorrhea Neck: Supple, - - Diffusely tender neck c-collar in place Cardiovascular: Regular rate, Regular rhythm, No murmurs Respiratory: No distress, CTA bilaterally, Chest nontender Abdomen: Soft, Nontender, Nondistended, Normal bowel sounds Back: Nontender, Normal Inspection Extremities: No edema, Tenderness - Left shoulder is diffusely tender with no obvious dislocation or fracture. Left knee is tender to palpation with no outward signs of trauma. Skin: Normal color, No rash Neurological: Alert, Oriented x3, Cranial nerves II-XII grossly intact, Normal Strength, Normal Sensation Psychological: Normal affect, Normal Mood Diagnostic/Tx/Re-eval Clinical Impression(s) from Imaging Studies Brain CT 06/03/20 21:16 IMPRESSION: Atrophy and periventricular white matter ischemic changes. 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 No evidence for acute intracranial bleed. Electronically Signed: Wenceslao Recio MD at 22:17 EDT , Service support , Cervical Spine CT 06/03/20 21:16 IMPRESSION: No evidence for acute fracture or subluxation.. Moderate spondylosis and multilevel spinal stenosis secondary to bony hypertrophy Electronically Signed: Wenceslao Recio MD at 22:20 EDT , Service support , Knee X-Ray 06/03/20 21:40 IMPRESSION: No acute findings. Electronically Signed: Rita Doan MD at 22:25 EDT Tel , Service support , - Medical Decision Making X-rays of the left knee and shoulder were negative for acute fracture dislocation. CT imaging of the brain and cervical spine were negative for acute. Patient will be discharged home. Her will be with her. She is to expect some soreness take Tylenol for this. Return if worsening or concerns ED Disposition - Plan for ED Patient: Disposition: Home or Assisted Living Diagnosis: Closed head injury, Cervical strain, acute, Contusion of left shoulder, Contusion of left knee Instructions: ED SOFT TISSUE CONTUSION, ED Sprain Strain Neck, ED Head Injury Adult Referrals: Hannah Riggs, [Primary Care Provider] - As Needed
--- NOTE | 2020-06-03 21:40 | RAD_ITS ---
STUDY: X-RAY - LEFT SHOULDER REASON FOR EXAM: Female, 70 years old. FELL IN BATHROOM.. PAIN IN LEFT SHOULDER TECHNIQUE: 2 view(s) of the shoulder. COMPARISON: None. FINDINGS: There is mild degenerative arthrosis of the glenohumeral articulation. There is degenerative arthrosis of the acromioclavicular joint without inferior osseous spur formation. Normal acromion. There is no demonstrated inferior acromial spur. Normal humeral head and visualized proximal humerus. The soft tissue structures are unremarkable. Left chest cardiac device and leads noted. Normal visualized pulmonary apex. RAD/Shoulder min 2 Views IMPRESSION: Degenerative changes Electronically Signed: Luis Mix MD at 22:44 EDT , Service support ,
--- NOTE | 2020-06-03 21:40 | RAD_ITS ---
STUDY: X-RAY - LEFT KNEE REASON FOR EXAM: Female, 70 years old. FELL IN BATHROOM. PAIN IN LEFT KNEE TECHNIQUE: 3 view(s) of the knee. COMPARISON: None. FINDINGS: No fracture or dislocation. No joint effusion. Minimal medial compartment spurring. Joint spaces are otherwise well-maintained. Extensive atherosclerotic vascular calcification. The soft tissue structures are otherwise unremarkable. RAD/Knee 3 Views IMPRESSION: No acute findings. Electronically Signed: Rita Doan MD at 22:25 EDT Tel , Service support ,
[2020-06-03 22:58] VITALS: BP 168/74; PULSE 74; RESP 16
== END 2020-06-03 22:58 | disposition home or self-care (01) ==
PROVIDERS: Emergency Provider Emergency Medicine; PCP Internal Medicine
DX: S09.90XA Unspecified injury of head, initial encounter (principal); S16.1XXA Strain of muscle, fascia and tendon at neck level, initial encounter; S80.02XA Contusion of left knee, initial encounter; S40.012A Contusion of left shoulder, initial encounter; W19.XXXA Unspecified fall, initial encounter; Y93.9 Activity, unspecified; Y92.9 Unspecified place or not applicable; I10 Essential (primary) hypertension; I49.5 Sick sinus syndrome; E78.5 Hyperlipidemia, unspecified; I48.91 Unspecified atrial fibrillation; G40.909 Epilepsy, unspecified, not intractable, without status epilepticus; Z86.73 Personal history of transient ischemic attack (TIA), and cerebral infarction without residual deficits; Z79.84 Long term (current) use of oral hypoglycemic drugs; Z79.899 Other long term (current) drug therapy
CPT/HCPCS: 70450; 72125; 73030; 73562; 99285

== ENCOUNTER → 2020-07-15 13:08 | Outpatient (CLI) | payer MEDICARE, SELFPAY ==
[2020-07-15 14:27] LABS: Protein, Urine (Random) 166.7 mg/dL (<11.9); Protein:Creat Ratio 4116 mg/g CRE (0-200)
[2020-07-15 14:59] LABS: Albumin, Serum 3.1 g/dL (3.2-5.0); BUN 11 mg/dL (7-18); BUN/Creat Ratio 17.8 RATIO (10-20); Calcium,Total 9.5 mg/dL (8.5-10.1); Chloride 99 mmol/L (98-107); Creatinine, Serum 0.62 mg/dL (0.55-1.02); EST Glomerular Filtration Rate 102 mL/min (>60); Est Glom Filt Rate - Afr Amer 123 mL/min (>60); Glucose 134 mg/dL (74-106); Phosphorus 3.9 mg/dL (2.5-4.9); Potassium 4.7 mmol/L (3.5-5.1); Sodium Level 135 mmol/L (136-145)
== END ==
PROVIDERS: PCP Internal Medicine; Referring Provider Internal Medicine Nephrology; Visit Provider Internal Medicine Nephrology
DX: E11.21 Type 2 diabetes mellitus with diabetic nephropathy (principal)
CPT/HCPCS: 36415; 80069; 82570; 84156

== ENCOUNTER → 2020-08-19 10:48 | Outpatient (CLI) | payer MEDICARE, SELFPAY ==
[2020-08-19 11:51] LABS: Protein, Urine (Random) 219.3 mg/dL (<11.9); Protein:Creat Ratio 3225 mg/g CRE (0-200)
[2020-08-19 12:04] LABS: Albumin, Serum 3.2 g/dL (3.2-5.0); BUN 11 mg/dL (7-18); BUN/Creat Ratio 15.6 RATIO (10-20); Calcium,Total 8.9 mg/dL (8.5-10.1); Chloride 98 mmol/L (98-107); EST Glomerular Filtration Rate 88 mL/min (>60); Est Glom Filt Rate - Afr Amer 106 mL/min (>60); Glucose 167 mg/dL (74-106); Phosphorus 2.9 mg/dL (2.5-4.9); Potassium 4.6 mmol/L (3.5-5.1); Sodium Level 133 mmol/L (136-145)
[2020-08-19 12:11] LABS: Valproic Acid (Depakene) Level 80 ug/mL (50-100)
== END ==
PROVIDERS: PCP Internal Medicine; Referring Provider Internal Medicine Nephrology; Visit Provider Internal Medicine Nephrology
DX: G40.009 Localization-related (focal) (partial) idiopathic epilepsy and epileptic syndromes with seizures of localized onset, not intractable, without status epilepticus (principal); E11.21 Type 2 diabetes mellitus with diabetic nephropathy
CPT/HCPCS: 36415; 80069; 80164; 82570; 84156

== ENCOUNTER → 2020-11-20 10:08 | Outpatient (CLI) | payer MEDICARE, SELFPAY ==
[2020-10-31 10:20] VITALS: BMI 30.9
[2020-11-20 11:18] LABS: Valproic Acid (Depakene) Level 92 ug/mL (50-100)
== END ==
PROVIDERS: PCP Internal Medicine; Referring Provider Psychiatry & Neurology Neurology; Visit Provider Psychiatry & Neurology Neurology
DX: G40.009 Localization-related (focal) (partial) idiopathic epilepsy and epileptic syndromes with seizures of localized onset, not intractable, without status epilepticus (principal)
CPT/HCPCS: 36415; 80164

== ENCOUNTER → 2021-03-17 11:47 | Outpatient (CLI) | payer MEDICARE, SELFPAY ==
[2020-10-31 10:20] VITALS: BMI 30.9
[2021-03-17 12:58] LABS: Protein, Urine (Random) 236.4 mg/dL (<11.9); Protein:Creat Ratio 4027 mg/g CRE (0-200)
[2021-03-17 13:20] LABS: Albumin, Serum 2.9 g/dL (3.2-5.0); BUN 21 mg/dL (7-18); BUN/Creat Ratio 24.1 RATIO (10-20); Calcium,Total 8.6 mg/dL (8.5-10.1); Chloride 101 mmol/L (98-107); Creatinine, Serum 0.87 mg/dL (0.55-1.02); EST Glomerular Filtration Rate 69 mL/min (>60); Est Glom Filt Rate - Afr Amer 83 mL/min (>60); Glucose 277 mg/dL (74-106); Phosphorus 3.3 mg/dL (2.5-4.9); Potassium 4.6 mmol/L (3.5-5.1); Sodium Level 135 mmol/L (136-145)
== END ==
PROVIDERS: PCP Internal Medicine; Referring Provider Internal Medicine Nephrology; Visit Provider Internal Medicine Nephrology
DX: E11.21 Type 2 diabetes mellitus with diabetic nephropathy (principal)
CPT/HCPCS: 36415; 80069; 82570; 84156

== ENCOUNTER → 2021-08-21 11:29 | Outpatient (CLI) | payer MEDICARE, SELFPAY ==
[2020-10-31 10:20] VITALS: BMI 30.9
[2021-08-21 12:23] LABS: Hematocrit 38.1 % (37-47); Mean Corp Hgb Conc 31.5 g/dL (32-36); Mean Corpuscular Volume 88.8 fL (81-99); Mean Platelet Vol. 9.5 fl (6.2-12.0); Platelet Count 136 K/mm3 (150-450); RBC Distribution Width CV 14.7 % (11.6-14.6); RBC Distribution Width SD 47.1 fl (35.1-43.9); Red Blood Count 4.29 M/mm3 (4.2-5.4); White Blood Count 6.7 K/mm3 (4.4-11.0)
[2021-08-21 12:52] LABS: Protein, Urine (Random) 439.1 mg/dL (<11.9); Protein:Creat Ratio 9072 mg/g CRE (0-200)
[2021-08-21 12:55] LABS: Albumin, Serum 2.8 g/dL (3.2-5.0); BUN 8 mg/dL (7-18); BUN/Creat Ratio 10.1 RATIO (10-20); Chloride 104 mmol/L (98-107); Creatinine, Serum 0.79 mg/dL (0.55-1.02); EST Glomerular Filtration Rate 77 mL/min (>60); Est Glom Filt Rate - Afr Amer 93 mL/min (>60); Glucose 219 mg/dL (74-106); Phosphorus 2.3 mg/dL (2.5-4.9); Potassium 4.4 mmol/L (3.5-5.1); Sodium Level 137 mmol/L (136-145)
[2021-08-21 16:32] LABS: Mucous, Urine 0 SEEN /hpf (<or=2+); Red Blood Cells-Urine 0 SEEN /hpf (0-5)
[2021-08-21 17:03] LABS: Color, Urine Yellow (Yellow); Glucose, Dipstick 100 mg/dl (Normal); Ketone-Dipstick Negative (Negative); Leukocyte Esterase-Dipstick Negative /ul (Negative); Nitrite-Dipstick Negative (Negative); Occult Blood-Urine 10 /ul (Negative); Protein-Dipstick 500 mg/dl (Negative); Urine Bilirubin Dipstick Negative (Negative); Urine Clarity Sl. Cloudy (Clear); Urine Urobilinogen Normal (Normal); Urine pH 6.5 (5.0 - 8.0)
[2021-08-21 17:33] LABS: Squamous Epithelial Cells - UA 0-5 SEEN /hpf (5-10); White Blood Cells 0-5 SEEN /hpf (0-5)
[2021-08-21 17:34] LABS: Bacteria RARE /hpf (None Seen)
== END ==
PROVIDERS: Physician Assistant Medical; PCP Internal Medicine; Referring Provider Internal Medicine Nephrology; Visit Provider Internal Medicine Nephrology
DX: E11.21 Type 2 diabetes mellitus with diabetic nephropathy (principal); D64.9 Anemia, unspecified; N39.0 Urinary tract infection, site not specified; R30.0 Dysuria
CPT/HCPCS: 36415; 80069; 81001; 82570; 84156; 85027; 87086; 87088

== ENCOUNTER → 2021-08-26 11:39 | Outpatient (CLI) | payer MEDICARE, SELFPAY ==
[2021-08-26 11:42] LABS: Mucous, Urine 0 SEEN /hpf (<or=2+); Red Blood Cells-Urine 0 SEEN /hpf (0-5)
[2021-08-26 12:32] LABS: Color, Urine Yellow (Yellow); Glucose, Dipstick Normal (Normal); Ketone-Dipstick 5 mg/dl (Negative); Leukocyte Esterase-Dipstick 25 /ul (Negative); Nitrite-Dipstick Negative (Negative); Occult Blood-Urine Negative /ul (Negative); Protein-Dipstick 500 mg/dl (Negative); Urine Bilirubin Dipstick Negative (Negative); Urine Clarity Clear (Clear); Urine Urobilinogen Normal (Normal); Urine pH 6.5 (5.0 - 8.0)
[2021-08-26 12:44] LABS: Bacteria 1+ /hpf (None Seen); Squamous Epithelial Cells - UA 0-5 SEEN /hpf (5-10); White Blood Cells 0-5 SEEN /hpf (0-5)
[2021-08-26 12:47] LABS: Hemoglobin A1c 7.7 % (3.8-5.6)
== END ==
PROVIDERS: PCP Internal Medicine; Visit Provider Internal Medicine Nephrology
DX: E11.9 Type 2 diabetes mellitus without complications (principal); N39.0 Urinary tract infection, site not specified
CPT/HCPCS: 36415; 81001; 83036

== ENCOUNTER → 2021-08-28 09:47 | Outpatient (CLI) | payer MEDICARE, SELFPAY ==
[2021-08-28 11:05] LABS: 24HR. UA Prot. Total Volume 1850 mL; Urine Protein (24 Hour) 166.1 mg/dL (<11.9)
== END ==
LOC: LAB 09:51 → LABSPEC 09:51
PROVIDERS: PCP Internal Medicine; Referring Provider Internal Medicine Nephrology; Visit Provider Internal Medicine Nephrology
DX: E11.9 Type 2 diabetes mellitus without complications (principal); N39.0 Urinary tract infection, site not specified
CPT/HCPCS: 81050; 84156

== ENCOUNTER 2021-09-17 11:07 | Outpatient (CLI) | payer MEDICARE, SELFPAY ==
[2021-09-17 11:58] LABS: Albumin, Serum 2.8 g/dL (3.2-5.0); BUN 12 mg/dL (7-18); BUN/Creat Ratio 15.4 RATIO (10-20); Calcium,Total 8.9 mg/dL (8.5-10.1); Chloride 106 mmol/L (98-107); Creatinine, Serum 0.78 mg/dL (0.55-1.02); EST Glomerular Filtration Rate 78 mL/min (>60); Est Glom Filt Rate - Afr Amer 95 mL/min (>60); Glucose 189 mg/dL (74-106); Phosphorus 2.7 mg/dL (2.5-4.9); Potassium 4.5 mmol/L (3.5-5.1); Sodium Level 139 mmol/L (136-145)
== END 2021-09-17 23:59 | disposition short-term general hospital (02) ==
PROVIDERS: PCP Internal Medicine; Visit Provider Internal Medicine Nephrology
DX: E11.21 Type 2 diabetes mellitus with diabetic nephropathy (principal)
CPT/HCPCS: 36415; 80069

== ENCOUNTER 2021-10-06 12:58 | Outpatient (CLI) | payer MEDICARE, SELFPAY ==
[2021-10-06 13:54] LABS: Protein, Urine (Random) 498.5 mg/dL (<11.9); Protein:Creat Ratio 5963 mg/g CRE (0-200)
[2021-10-06 14:07] LABS: Albumin, Serum 2.8 g/dL (3.2-5.0); BUN 12 mg/dL (7-18); Calcium,Total 8.8 mg/dL (8.5-10.1); Chloride 103 mmol/L (98-107); Creatinine, Serum 0.67 mg/dL (0.55-1.02); EST Glomerular Filtration Rate 93 mL/min (>60); Est Glom Filt Rate - Afr Amer 113 mL/min (>60); Glucose 152 mg/dL (74-106); Phosphorus 3.2 mg/dL (2.5-4.9); Potassium 3.6 mmol/L (3.5-5.1); Sodium Level 138 mmol/L (136-145)
== END 2021-10-06 23:59 | disposition home or self-care (01) ==
PROVIDERS: PCP Internal Medicine; Referring Provider Internal Medicine Nephrology; Visit Provider Internal Medicine Nephrology
DX: E11.21 Type 2 diabetes mellitus with diabetic nephropathy (principal)
CPT/HCPCS: 36415; 80069; 82570; 84156

== ENCOUNTER 2021-10-30 11:41 | Outpatient (CLI) | payer MEDICARE, SELFPAY ==
[2021-10-30 13:04] LABS: AST(SGOT) 20 U/L (15-37); Alanine Aminotransfer ALT/SGPT < 6 U/L (13-56); Albumin, Serum 2.7 g/dL (3.2-5.0); Alkaline Phosphatase 54 U/L (45-117); Bilirubin, Direct 0.07 mg/dL (0.00-0.30); Cholesterol 167 mg/dL (200); Globulin 5.8 g/dL (2.2-4.2); High Density Lipoprotein 30 mg/dL; Protein, Total 8.5 g/dL (6.4-8.2); Triglycerides 524 mg/dL
== END 2021-10-30 23:59 | disposition home or self-care (01) ==
LOC: LAB 11:42
PROVIDERS: PCP Internal Medicine; Visit Provider Internal Medicine Cardiovascular Disease
DX: E78.00 Pure hypercholesterolemia, unspecified (principal); E78.1 Pure hyperglyceridemia
CPT/HCPCS: 36415; 80061; 80076

== ENCOUNTER 2021-11-18 12:30 | Outpatient (RCR) | payer MEDICARE, SELFPAY ==
--- NOTE | 2021-10-21 16:05 | HP.OTEVAL ---
Patient's Visit Information HERMINIA CARDONA is a 71 year old F, referred to Occupational Therapy by Nixon Haley PA-C, with a diagnosis of left ulna styloid. Date of Evaluation: 10/21/21 Occupational Therapist: Yasmin Flores, JAMAR/[place], CHT - Subjective This 71 year old female was seen for OT eval with dx of left ulnar styloid fx. pt was in soft cast for 6 weeks. pt suffered fall 08/31/21 and went to on 09/01/21- casted on this day for 6 weeks. Cast removed on 10/13/21. pt is right handed- pt has suffered multiple falls and per family that attend session states she furiture walks. Due to pt weakness and limitation due to medication for seizures pt has increased need of assistance from family with all ADLs and IADLs. - ROM Forearm: right/left WNL Wrist: right 65/65 left 45/40 - Strength Shoulder: right 4/5 left 4-/5 Elbow: right 4/5 left 4-/5 Transportation Program Director: right 10# left 5# Lateral Pinch: right 4# left unable Tripod Pinch: right 2# left unable Strength Comments: pt demo with weakness of freight inspector/pinch and UE - Sensation Sensation Comments: denies - Quick DASH-Disab of Arm,Shoulder& Hand Quick DASH Score: 81.8175 - Goals Goal:: pt will dem a increase in bilateral freight inspector strength by 10# or greater to increase pts ind. with ADLS and IADLS by d.c. pt will demo increase in MMT of BUE to 4+/5 to increase ind with functional mobility and transfers by dc. pt will demo the ability to perform dyn standing tasks with good balance for 6 min and use of left UE (lifting 1#-2#3#) to simulate ADls performance by d.c - Rehabilitation General Assessment: pt demo with weakness of left UE due to recent left wrist fx. this limites pts ind. with ADLS and IADLs.pt would benefit from skilled OT services 2x week for 6 weeks. Pt and pts spouse agree to POC. Rehabilitation Potential: Good - Anticipated Interventions A/AAROM/PROM, Strengthening, Ergonomic Education, Education re assistive Equipment, Education re Diagnosis, Caregiver Training, Home Program - Visit Plan Frequency: 1-2x /Week Duration: 6 Weeks TEXT: Thank you for the opportunity to evaluate your patient. For Medicare and Medicare HMO plans, please review the plan of care and approve it. It will need to be FAXED BACK to us at [phone] for Medicare purposes. Please let me know if there are questions or concerns regarding this plan of care. Physician Signature: Date:
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
== END 2021-11-18 19:00 | disposition home or self-care (01) ==
LOC: PT 12:30
PROVIDERS: PCP Internal Medicine; Referring Provider Physician Assistant Surgical; Visit Provider Physician Assistant Surgical
DX: S52.615D Nondisplaced fracture of left ulna styloid process, subsequent encounter for closed fracture with routine healing (principal)
CPT/HCPCS: 97110; 97162; 97166

== ENCOUNTER 2021-11-19 14:18 | Inpatient (IN) | payer MEDICARE, SELFPAY ==
[2021-11-19] VITALS (8 sets, daily range): BP systolic 141–179; BP diastolic 76–86; PULSE 68–74; RESP 16–18; TEMP 36.8–36.9; O2SAT 86–97; BMI 33.3; BMI 29.9
--- NOTE | 2021-11-19 14:34 | EDS_ITS ---
HPI HPI - Fall History of Present Illness Chief Complaint: Fall Informant: patient Occured/Mechanism Occurred: Today Mechanism/Context: Yes same level fall Pain/Injury Pain Location: lower extremity (Right foot) Quality of Pain: Sharp Worsened by: Movement Relieved by: Ice Associated Symptoms Associated Symptoms: Positive for Inability to ambulate; Negative for Parasthesias, Weakness, Loss of function, Loss of consciousness and Amnesia Narrative Narrative: Patient presents after a fall that occurred today. Patient states that she has frequent falls and fell again today. Patient states her leg gave out. Patient denies any paresthesias or weakness. Patient denies any head injury or loss of consciousness. Patient states her pain is mostly over her right foot. Patient describes the pain as sharp. Patient states it is worse with movement. Patient states that ice seems to help with the pain. Patient denies any other injuries. [facility] Medical History (Updated 11/19/21 @ 17:56 by Francisca Lin) Atrial fibrillation Breakthrough seizure Chronic kidney disease (CKD) Dysuria Essential hypertension Former smoker HLD (hyperlipidemia) Hypertension Hypertensive emergency without congestive heart failure Hypertriglyceridemia Junctional rhythm Kidney disease Obesity Pacemaker Paroxysmal atrial fibrillation Seizure Seizures Septic shock Tachy-maurizio syndrome Type 2 diabetes mellitus Vaginal bleeding Home Medications simvastatin 40 mg PO QHS 04/08/17 [History Last Taken 11/18/21] oxybutynin chloride 5 mg PO QHS 05/20/17 [History Last Taken 11/18/21] amlodipine 5 mg PO DAILY 10/06/17 [History Last Taken 11/18/21] ramipril 10 mg capsule 10 mg PO DAILY #90 cap 01/17/21 [Rx Last Taken 11/18/21] alendronate 70 mg PO SA 11/19/21 [History Last Taken 11/15/21] divalproex [Depakote ER] 1,000 mg PO QHS 11/19/21 [History Last Taken 11/18/21] divalproex [Depakote ER] 500 mg PO DAILY 11/19/21 [History Last Taken 11/19/21] finerenone 20 mg PO DAILY 11/19/21 [History Last Taken 11/18/21] lacosamide 150 mg PO QHS 11/19/21 [History Last Taken 11/18/21] lacosamide [Vimpat] 100 mg PO DAILY 11/19/21 [History Last Taken 11/19/21] metformin 1,000 mg PO BID 11/19/21 [History Last Taken 11/18/21] mirtazapine 45 mg PO QHS 11/19/21 [History Last Taken 11/18/21] pregabalin 100 mg PO BID 11/19/21 [History Last Taken 11/18/21] sitagliptin [Januvia] 50 mg PO DAILY 11/19/21 [History Last Taken 11/18/21] Allergy/AdvReac Type Severity Reaction Status Date / Time amoxicillin [From Augmentin] Allergy Rash Verified 08/21/21 13:01 clavulanic acid Allergy Rash Verified 08/21/21 13:01 [From Augmentin] escitalopram [From Lexapro] Allergy Rash Verified 08/21/21 13:01 shellfish derived Allergy Unknown Verified 08/21/21 13:01 hydroxychloroquine AdvReac Severe Unknown Verified 08/21/21 13:01 [From Plaquenil] perfume AdvReac Unknown Verified 08/21/21 13:01 pineapple AdvReac Rash Verified 08/21/21 13:01 quinine AdvReac Unknown Verified 08/21/21 13:01 strawberry AdvReac Rash Verified 08/21/21 13:01 Sulfa (Sulfonamide AdvReac Unknown Verified 08/21/21 13:01 Antibiotics) DUST AdvReac Unknown Uncoded 08/21/21 13:01 Family History Brother Heart disease Hx CABG Hypertension Diabetes Mother Hypertension Surgical History History of breast surgery History of hysterectomy History of permanent cardiac pacemaker placement (11/15/17) Social History (Updated 11/19/21 @ 18:[address] Cortney Akers MD) household members: spouse Smoking Status: Never smoker alcohol intake: never substance use type: does not use caffeine: No what type of physical activity do you participate in: none seatbelt use: always do you feel safe at home: Yes ROS ROS ED Constitutional Constitutional ED: Denies chills or fever(s) Eyes Eyes: Denies blurry vision or change in vision ENT ENT ED: Denies rhinorrhea or sore throat Cardiovascular Cardiovascular: Denies chest pain or palpitations Respiratory/Chest Respiratory/Chest: Denies cough or dyspnea Gastrointestinal Gastrointestinal: Denies nausea or vomiting Genitourinary Genitourinary ED: Denies dysuria or hematuria Musculoskeletal Musculoskeletal: Denies back pain or neck pain Integumentary Denies abscess or rash Neurologic Neurologic: Denies headache(s) or weakness Allergic/Immunologic Allergic/Immunologic ED: Denies mouth swelling or urticaria EXAM Physical Exam Const Vital Signs: 11/19/21 14:19 11/19/21 14:37 11/19/21 15:25 Temperature 98.3 F Temperature Source Temporal Pulse Rate 74 71 Respiratory Rate 16 18 Respiratory Effort Normal Blood Pressure 179/79 H 141/86 H Blood Pressure Mean 112 104 Pulse Ox 94 96 95 Oxygen Delivery Method Room Air Nasal Cannula Nasal Cannula Oxygen Flow Rate (L/min) 2 2 2 11/19/21 15:28 11/19/21 15:30 11/19/21 18:00 Temperature Temperature Source Pulse Rate 70 Respiratory Rate 18 Respiratory Effort Blood Pressure 164/83 H Blood Pressure Mean 110 Pulse Ox 86 94 97 Oxygen Delivery Method Room Air Nasal Cannula Nasal Cannula Oxygen Flow Rate (L/min) 2 2 Positive well nourished General Appearance ED: NAD HEENT Reports normocephalic atraumatic Neck full ROM and supple Resp normal respiratory effort and clear to auscultation bilaterally Cardio regular rate and regular rhythm GI non-tender Palpation: soft Extremity Extremity Narrative: There is tenderness and edema over the right forefoot and midfoot. There is also tenderness over the right ankle and right knee. There is no obvious deformity noted. Range of motion was limited in all motions of the right knee, ankle, and foot secondary to pain. There is no pain over the right hip. Pedal pulses are equal bilaterally. Sensation was intact to light touch in all digits. Capillary refill was less than 2 seconds in all digits. Neuro oriented x3, CN's II-XII intact bilaterally, moves all extremities, no focal motor deficits and no sensory deficits noted Geoffrey Coma Scale: document GCS findings Spontaneous Obeys Commands Oriented 15 Sensorium / Orientation: alert Psych mental status grossly normal MDM MDM MDM Narrative Medical decision making narrative: X-rays of the left foot were obtained. There are 3 views. On my interpretation, there is no acute fracture. There is no dislocation. There is some mild soft tissue swelling. Radiologist also interpreted the x-rays and agrees. X-rays of the left ankle were obtained. There are 3 views. On my interpretation, there is no acute fracture. There is no dislocation. There is some mild soft tissue swelling. Radiologist also interpreted the x-rays and agrees. X-rays of the left knee were obtained. There are 4 views. On my interpretation, there is no acute fracture. There is no dislocation. There are some degenerative changes noted. There is no soft tissue swelling. Radiologist also interpreted the x-rays and agrees. Patient was advised of her findings. Patient states she is unable to stand or bear weight. Patient states her knees continue to give out on her. Patient does not feel like she can go home. Because of this, labs were obtained. EKG was obtained. On my interpretation, it showed a normal sinus rhythm with a rate of 68. OK interval, QRS interval, and QTc intervals were all normal. [place] was normal. There are nonspecific ST-T wave changes. CBC was within normal limits with the exception of a mild anemia with a hemoglobin of 11.4 and hematocrit 34.8. Comprehensive metabolic profile was essentially within normal limits. High-sensitivity troponin was 61. Urinalysis shows leukocyte esterase of 100 with 10-25 white blood cells but 25-50 epithelial cells. There is 2+ bacteria. Urine culture was ordered. Portable 1 view chest x-ray was obtained. On my interpretation, lung barron are clear. There is normal cardiac silhouette. Bony thorax is normal. There is no acute process noted. Radiologist also interpreted the x-ray and agrees. Patient is willing to go to a long-term for rehab and therapy. community health worker was in to talk to the patient. Due to her insurance, she would need to be admitted to the hospital prior to going to a long-term. Case was discussed with the hospitalist. She will admit the patient to her service. She noted that the x-rays of the lower extremity were on the left. Because of this, x-rays of the right foot were obtained. There are 3 views. On my interpretation, there is no acute fracture or dislocation. There is some degenerative changes noted. Radiologist also interpreted the x-rays and agrees. X-rays of the right ankle were obtained. There is no acute fracture or dislocation noted. There is no soft tissue swelling. Radiologist also interpreted the x-rays and agrees. X-rays of the right knee were obtained. There are 4 views. On my interpretation, there is no acute fracture or dislocation. There is no soft tissue swelling. There is no effusion. Radiologist also interpreted the x-rays and agrees. Lab Data Attestation: I reviewed the patient's lab results. Labs: Laboratory Results - last 24 hr 11/19/21 11/19/21 11/19/21 16:10 16:10 16:26 WBC 8.5 RBC 3.89 L Hgb 11.4 L Hct 34.8 L MCV 89.5 MCH 29.3 MCHC 32.8 RDW Std Deviation 47.4 H RDW Coeff of Ernesto 14.6 Plt Count 156 MPV 9.4 Immature Gran % (Auto) 0.500 Neut % (Auto) 53.6 Lymph % (Auto) 34.5 [place] % (Auto) 11.0 H Eos % (Auto) 0.2 Baso % (Auto) 0.2 Absolute Neuts (auto) 4.5 Absolute Lymphs (auto) 2.92 Nucleated RBC % 0 Sodium 139 Potassium 4.0 Chloride 105 Carbon Dioxide 27.0 Anion Gap 7 BUN 13 Creatinine 0.68 Estim Creat Clear Calc 41.99 Est GFR (MDRD) Af Amer 111 Est GFR (MDRD) Non-Af 92 BUN/Creatinine Ratio 19.2 Glucose 129 H Calcium 8.9 Total Bilirubin 0.30 AST 23 ALT < 6 L Alkaline Phosphatase 55 Troponin I High Sens 61 H Total Protein 8.5 H Albumin 2.7 L Globulin 5.8 H Albumin/Globulin Ratio 0.5 L Urine Color Yellow Urine Clarity Sl. Cloudy Urine pH 6.5 Ur Specific Floris 1.010 Urine Protein 500 H Urine Glucose (UA) Normal Urine Ketones 5 H Urine Occult Blood Negative Urine Nitrite Negative Urine Bilirubin Negative Urine Urobilinogen Normal Ur Leukocyte Esterase 100 H Urine RBC 0-5 SEEN Urine WBC 10-25 SEEN Ur Squamous Epith Cells 25-50 SEEN Ur Transition Epith Cell 0-5 SEEN Urine Bacteria 2+ Urine Mucus 0 SEEN Urine Yeast RARE Radiography Chest X-Ray - ED: 1 View, Read by ED Physician, Read by Radiologist and No Acute Disease Diagnostic Testing: Clinical Impression(s) from Imaging Studies Ankle X-Ray 11/19/21 15:00 IMPRESSION: Calcaneal spurs. Soft tissue swelling. Electronically Signed: Paresh Kebede MD at 15:14 EDT , Foot X-Ray 11/19/21 15:00 IMPRESSION: Degenerative changes. Electronically Signed: Paresh Kebede MD at 15:13 EDT , Knee X-Ray 11/19/21 15:00 IMPRESSION: Degenerative arthrosis. Electronically Signed: Paresh Kebede MD at 15:12 EDT , Chest X-Ray 11/19/21 16:45 IMPRESSION: No active disease. Electronically Signed: Devyn Lozano MD at 17:07 EDT , Foot X-Ray 11/19/21 17:57 IMPRESSION: 1. No fractures or dislocations 2. Minimal osteophytic degenerative changes of the distal and phalangeal joints of the right foot. 3. Mild valgus deformity of the first metatarsal-phalangeal joint. 4. Moderate-sized calcaneal and Achilles spurs. 5. Extensive arterial calcification in the region of the ankle. Electronically Signed: Juventino Crowell MD at 20:58 EDT , Knee X-Ray 11/19/21 17:57 IMPRESSION: 1. No fractures or dislocations. 2. Mild degenerative changes of the knee joint posterior aspect of patella. 3. Balanced knee joint. 4. Extensive calcification of the distal superficial femoral artery and popliteal artery. Electronically Signed: Juventino Crowell MD at 20:55 EDT , EKG Initial EKG: Attestation: I personally reviewed and interpreted this EKG as follows: Interpretation: Sinus Rhythm (68) and Non-Specific ST Changes Prior EKG tracings: available for review Prior: Unchanged (03/25/2018) Discharge Plan Dx/Rx/DC Orders Clinical Impression: Debility, Frequent falls Disposition Disposition: Acute Care Hospital [facility] Discharge Date/Time: 11/19/21 19:44
[2021-11-19] MEDS: HYDROcodone Bitartrate/Apap 5/325 Tablet PO (14:46)
--- NOTE | 2021-11-19 15:00 | RAD_ITS ---
STUDY: X-RAY - LEFT FOOT CLINICAL: Female, 71 years old. Injury/Pain TECHNIQUE: 3 view(s) of the foot. COMPARISON: None. FINDINGS: There is an enthesophyte involving the posterior superior calcaneus at the site of insertion of the Achilles tendon. Plantar spur. Normal visualized subtalar, talonavicular, calcaneocuboid, tarsal and tarsometatarsal articulations. Normal metatarsi. There is degenerative arthrosis of the metatarsophalangeal joint of the hallux . Normal tibial and fibular sesamoid bones. Normal interphalangeal joint of the great toe. Normal phalanges of the great toe. Normal second through fifth metatarsophalangeal joints. Normal interphalangeal joints and phalanges of the lesser toes. The soft tissue structures are unremarkable. RAD/Foot min 3 Views IMPRESSION: Degenerative changes. Electronically Signed: Paresh Kebede MD at 15:13 EDT ,
--- NOTE | 2021-11-19 15:00 | RAD_ITS ---
STUDY: X-RAY - LEFT KNEE REASON FOR EXAM: Female, 71 years old. Injury/Pain TECHNIQUE: 4 view(s) of the knee. COMPARISON: Comparison is made with prior study dated 09/01/2021. FINDINGS: Normal visualized distal femur. Normal visualized proximal tibia and fibula. Normal proximal tibiofibular articulation. There is mild degenerative arthrosis of the medial femorotibial compartment. Normal lateral femorotibial compartment. There is moderate degenerative arthrosis of the patellofemoral articulation. There are atherosclerotic calcifications. RAD/Knee 4 or More Views IMPRESSION: Degenerative arthrosis. Electronically Signed: Paresh Kebede MD at 15:12 EDT ,
--- NOTE | 2021-11-19 15:00 | RAD_ITS ---
STUDY: X-RAY - LEFT ANKLE REASON FOR EXAM: Female, 71 years old. Injury/Pain TECHNIQUE: 3 view(s) of the ankle. COMPARISON: None. FINDINGS: Normal visualized distal tibia and fibula. Normal medial and lateral malleoli. Normal tibiotalar articulation and ankle mortise. Calcaneal spur The visualized subtalar, talonavicular, calcaneocuboid and tarsal articulations are normal. Soft tissue swelling. Vascular calcification. RAD/Ankle min 3 Views IMPRESSION: Calcaneal spurs. Soft tissue swelling. Electronically Signed: Paresh Kebede MD at 15:14 EDT ,
--- NOTE | 2021-11-19 15:49 | EKG12_ITS ---
Test Reason : FALL Blood Pressure : / mmHG Vent. Rate : 068 BPM Atrial Rate : 068 BPM P-R Int : 168 ms QRS Dur : 094 ms QT Int : 388 ms P-R-T Axes : -17 -14 -23 degrees QTc Int : 412 ms Normal sinus rhythm Nonspecific T wave abnormality Abnormal ECG Confirmed by WOOD LAMAR, JAHAIRA ([id number]), editorial manager CHRIS REYES ([id number]) on 11/21/2021 8:50:35 AM Referred By: YANELI Confirmed By:JAHAIRA MUIR MD
[2021-11-19 16:18] LABS: Absolute Lymphocyte Count 2.92 X10^3/uL (0.83-4.51); Absolute Neutrophil Count 4.5 X10^3/uL (2.0-7.7); Basophil# 0.02 X10^3/uL; Basophil% 0.2 % (0-1); Eosinophil# 0.02 X10^3/uL; Eosinophils% 0.2 % (0-5); Hematocrit 34.8 % (37-47); Hemoglobin 11.4 g/dL (12.0-15.0); Lymphocyte # 2.92 X10^3/ul (0.83-4.51); Lymphocyte % 34.5 % (19-41); Mean Corp Hgb Conc 32.8 g/dL (32-36); Mean Corpuscular Hgb 29.3 pg (27.0-32.0); Mean Corpuscular Volume 89.5 fL (81-99); Mean Platelet Vol. 9.4 fl (6.2-12.0); Monocyte# 0.93 X10^3/uL; NRBC Flagged by Analyzer 0 % (0-5); Neutrophil # 4.53 X10^3/uL (2.7-7.7); Neutrophil % 53.6 % (47-70); Platelet Count 156 K/mm3 (150-450); RBC Distribution Width CV 14.6 % (11.6-14.6); RBC Distribution Width SD 47.4 fl (35.1-43.9); Red Blood Count 3.89 M/mm3 (4.2-5.4); White Blood Count 8.5 K/mm3 (4.4-11.0)
[2021-11-19 16:37] LABS: ALB/GLOB Ratio 0.5 RATIO (0.9-2.4); AST(SGOT) 23 U/L (15-37); Alanine Aminotransfer ALT/SGPT < 6 U/L (13-56); Albumin, Serum 2.7 g/dL (3.2-5.0); Alkaline Phosphatase 55 U/L (45-117); Anion Gap 7 (5-15); BUN 13 mg/dL (7-18); BUN/Creat Ratio 19.2 RATIO (10-20); Calcium,Total 8.9 mg/dL (8.5-10.1); Chloride 105 mmol/L (98-107); Creatinine, Serum 0.68 mg/dL (0.55-1.02); EST Glomerular Filtration Rate 92 mL/min (>60); Est Glom Filt Rate - Afr Amer 111 mL/min (>60); Estimated Creatinine Clearance 41.99 ml/min; Globulin 5.8 g/dL (2.2-4.2); Glucose 129 mg/dL (74-106); Protein, Total 8.5 g/dL (6.4-8.2); Sodium Level 139 mmol/L (136-145); Troponin-I HS 61 pg/mL (3.0-54.0)
--- NOTE | 2021-11-19 16:37 | CM.ED ---
Social Work Consult: long term placement Referral source: Dr. Schultz Met with patient and patient spouse in room. Introduced self and psych social worker role. Patient resting in bed and not verbally responding to this psych social worker. Patient spouse agreeable to speak with this psych social worker. Patient spouse confirms to have concerns about patient being able to be cared for in the home and interested in prison placement, patient shakes head yes. This psych social worker provided patient spouse with list of in-network nursing homes that are local to patient geographical region. Patient has [employer] as insurance. This psych social worker communicating that a precert would need to be obtained in order for insurance to cover prison placement. Patient spouse voiced understanding. Patient shakes head no when this psych social worker asked if there are any questions. Patient spouse also reports to have no further questions. Patient spouse to look over list and pick out top choices for placement. Active support and listening provided. Dr. Schultz updated on above and plans for patient to be transitioned to acute care unit. PLAN: Acute Enrike COTTO, LUCIEN
[2021-11-19 16:38] LABS: Mucous, Urine 0 SEEN /hpf (<or=2+)
[2021-11-19 16:41] LABS: Color, Urine Yellow (Yellow); Glucose, Dipstick Normal (Normal); Ketone-Dipstick 5 mg/dl (Negative); Leukocyte Esterase-Dipstick 100 /ul (Negative); Nitrite-Dipstick Negative (Negative); Occult Blood-Urine Negative /ul (Negative); Protein-Dipstick 500 mg/dl (Negative); Urine Bilirubin Dipstick Negative (Negative); Urine Clarity Sl. Cloudy (Clear); Urine Urobilinogen Normal (Normal); Urine pH 6.5 (5.0 - 8.0)
--- NOTE | 2021-11-19 16:45 | RAD_ITS ---
STUDY: X-RAY CHEST REASON FOR EXAM: Female, 71 years old. Dyspnea TECHNIQUE: Single AP portable view of the chest. COMPARISON: 03/25/2018 FINDINGS: Left subclavian dual-lead pacemaker. The lungs are clear and expanded. There is no demonstrated pleural abnormality. Normal size heart. Normal mediastinum and jannette. Normal visualized pulmonary arteries. Normal visualized aortic arch and descending thoracic aorta. Normal visualized thoracic spine. Normal visualized ribs, clavicles, and shoulders. There is no demonstrated abnormality of the visualized soft tissue structures of the upper abdomen. RAD/Chest 1 View (Portable) IMPRESSION: No active disease. Electronically Signed: Devyn Lozano MD at 17:07 EDT ,
[2021-11-19 17:00] LABS: Squamous Epithelial Cells - UA 25-50 SEEN /hpf (5-10)
[2021-11-19 17:01] LABS: White Blood Cells 10-25 SEEN /hpf (0-5)
[2021-11-19 17:02] LABS: Bacteria 2+ /hpf (None Seen); Yeast-Urine RARE /hpf (None Seen)
[2021-11-19 17:03] LABS: Red Blood Cells-Urine 0-5 SEEN /hpf (0-5); Transitional Epithelial - Ur 0-5 SEEN /hpf (0-5)
--- NOTE | 2021-11-19 17:57 | RAD_ITS ---
STUDY: RIGHT FOOT X-RAY SERIES--3 VIEWS OF 1919 HOURS ON 11/19/2021 CLINICAL: 71-year-old female with a right foot injury and pain. TECHNIQUE: view(s) of the foot. COMPARISON: None. FINDINGS: Mild demineralization. No fractures or dislocations. No osseous lytic, sclerotic or mass lesions are present. There are minimal osteophytic degenerative changes at the distal interphalangeal joints of the right foot. This is a mild valgus deformity of the first metatarsal-phalangeal joint. There are moderate size calcaneal and Achilles spurs. The plantar fascia has normal appearance. There is extensive arterial calcification in the region of the ankle. RAD/Foot min 3 Views IMPRESSION: 1. No fractures or dislocations 2. Minimal osteophytic degenerative changes of the distal and phalangeal joints of the right foot. 3. Mild valgus deformity of the first metatarsal-phalangeal joint. 4. Moderate-sized calcaneal and Achilles spurs. 5. Extensive arterial calcification in the region of the ankle. Electronically Signed: Juventino Crowell MD at 20:58 EDT ,
--- NOTE | 2021-11-19 17:57 | RAD_ITS ---
STUDY: COMPLETE RIGHT KNEE SERIES--4 VIEWS OF 1918 HOURS ON 11/19/2021 REASON FOR EXAM: 71 year-old female with knee injury and pain. TECHNIQUE: 4. view(s) of the knee. COMPARISON: None. FINDINGS: There is no evidence of fractures or dislocations. There are mild degenerative changes of the knee joint and posterior aspect of the patella. The joint is balanced. There is no evidence of osseous lytic, sclerotic, or mass lesions. There is extensive calcification of the distal superficial femoral artery and popliteal artery. RAD/Knee 4 or More Views IMPRESSION: 1. No fractures or dislocations. 2. Mild degenerative changes of the knee joint posterior aspect of patella. 3. Balanced knee joint. 4. Extensive calcification of the distal superficial femoral artery and popliteal artery. Electronically Signed: Juventino Crowell MD at 20:55 EDT ,
--- NOTE | 2021-11-19 17:58 | NURSING ---
DR HOPKINS FOR DR CARRILLO
--- NOTE | 2021-11-19 18:08 | PCM.HP.STD ---
HPI - General General Date of Admission: 11/19/21 Date of Service: 11/19/21 Chief Complaint: Weakness, debility, falls. HPI Narrative The patient is a 71 y/o F w/ PMHx: Anxiety and Depression, Seizure disorder, Tachy-maurizio syndrome s/p pacemaker, HTN, HLD, PAF, Diabetes mellitus type II with neuropathy, Obesity who presents to the [facility] ED on 11/19/21 with history of near fall at home, unable to even get up with assist with also her son with progressive decline over the last several months prompting family to bring her in secondary to debility and need for SNF. She notes primarily pain on the R side specifically R ankle and knee from being twisted. She has had a decline for several years associated w/ debility and chronic fatigue with her seizures and seizure medications. She does not ambulate often per discussion with . She has had a more pronounced decline over the last 2 months. She is already having outpatient PT and OT. Work-up in the ED included T 98.3, heart rate 74, BP 179/79-->BP 141/86, 86% on RA-->94% on 2L NC, unremarkable plain film left ankle, left foot, left knee with no acute findings, awaiting right ankle, foot and knee, chest x-ray with no acute cardiopulmonary findings. In the ED patient administered hydrocodone. [facility] Medical History (Updated 11/19/21 @ 17:56 by Francisca Lin) Atrial fibrillation Breakthrough seizure Chronic kidney disease (CKD) Dysuria Essential hypertension Former smoker HLD (hyperlipidemia) Hypertension Hypertensive emergency without congestive heart failure Hypertriglyceridemia Junctional rhythm Kidney disease Obesity Pacemaker Paroxysmal atrial fibrillation Seizure Seizures Septic shock Tachy-maurizio syndrome Type 2 diabetes mellitus Vaginal bleeding Home Medications simvastatin 40 mg PO QHS 04/08/17 [History Last Taken 11/18/21] oxybutynin chloride 5 mg PO DAILY 05/20/17 [History Last Taken 11/18/21] amlodipine 5 mg PO DAILY 10/06/17 [History Last Taken 11/18/21] ramipril 10 mg capsule 10 mg PO DAILY #90 cap 01/17/21 [Rx Last Taken 11/18/21] alendronate 70 mg PO SA 11/19/21 [History Last Taken 11/15/21] divalproex [Depakote ER] 1,000 mg PO QHS 11/19/21 [History Last Taken 11/18/21] divalproex [Depakote ER] 500 mg PO DAILY 11/19/21 [History Last Taken 11/19/21] finerenone 20 mg PO DAILY 11/19/21 [History Last Taken 11/18/21] lacosamide 150 mg PO QHS 11/19/21 [History Last Taken 11/18/21] lacosamide [Vimpat] 100 mg PO DAILY 11/19/21 [History Last Taken 11/19/21] metformin 1,000 mg PO BID 11/19/21 [History Last Taken 11/18/21] mirtazapine 45 mg PO QHS 11/19/21 [History Last Taken 11/18/21] pregabalin 100 mg PO BID 11/19/21 [History Last Taken 11/18/21] sitagliptin [Januvia] 50 mg PO DAILY 11/19/21 [History Last Taken 11/18/21] Allergy/AdvReac Type Severity Reaction Status Date / Time amoxicillin [From Augmentin] Allergy Rash Verified 08/21/21 13:01 clavulanic acid Allergy Rash Verified 08/21/21 13:01 [From Augmentin] escitalopram [From Lexapro] Allergy Rash Verified 08/21/21 13:01 shellfish derived Allergy Unknown Verified 08/21/21 13:01 hydroxychloroquine AdvReac Severe Unknown Verified 08/21/21 13:01 [From Plaquenil] perfume AdvReac Unknown Verified 08/21/21 13:01 pineapple AdvReac Rash Verified 08/21/21 13:01 quinine AdvReac Unknown Verified 08/21/21 13:01 strawberry AdvReac Rash Verified 08/21/21 13:01 Sulfa (Sulfonamide AdvReac Unknown Verified 08/21/21 13:01 Antibiotics) DUST AdvReac Unknown Uncoded 08/21/21 13:01 Family History Brother Heart disease Hx CABG Hypertension Diabetes Mother Hypertension Surgical History History of breast surgery History of hysterectomy History of permanent cardiac pacemaker placement (11/15/17) Social History (Updated 11/19/21 @ 18:[address] Cortney Akers MD) household members: spouse Smoking Status: Never smoker alcohol intake: never substance use type: does not use caffeine: No what type of physical activity do you participate in: none seatbelt use: always do you feel safe at home: Yes ROS ROS Narrative Admission Review of Systems: CONSTITUTIONAL: No weight loss, fever, chills, + weakness or fatigue. HEENT: Eyes: No visual loss, blurred vision, double vision or yellow sclerae. Ears, Nose, Throat: No hearing loss, sneezing, congestion, runny nose or sore throat. SKIN: No rash or itching, lesions, wounds. CARDIOVASCULAR: No chest pain, chest pressure or chest discomfort, palpitations, edema, orthopnea, syncopal events. RESPIRATORY: No shortness of breath, cough or sputum, wheezing, hemoptysis. GASTROINTESTINAL: No anorexia, nausea, vomiting or diarrhea, abdominal pain, melena, BRBPR. GENITOURINARY: No dysuria, frequency, urgency or retention. NEUROLOGICAL: + Generalized weakness, fatigue, debility, falls, seizure disorder, No headache, dizziness, syncope, paralysis, ataxia, numbness or tingling in the extremities, focal weakness, change in bowel or bladder control. MUSCULOSKELETAL: + muscle, back pain, joint pain or stiffness. HEMATOLOGIC: No anemia, bleeding or bruising. LYMPHATICS: No enlarged nodes. No history of splenectomy. PSYCHIATRIC: + history of depression or anxiety. ENDOCRINOLOGIC: No reports of sweating, cold or heat intolerance. No polyuria or polydipsia. ALLERGIES: No history of asthma, hives, eczema or rhinitis. Vital Signs Vital Signs Vital Signs: 11/19/21 14:19 11/19/21 14:37 11/19/21 15:25 Temperature 98.3 F Temperature Source Temporal Pulse Rate 74 71 Respiratory Rate 16 18 Respiratory Effort Normal Blood Pressure 179/79 H 141/86 H Blood Pressure Mean 112 104 Pulse Ox 94 96 95 Oxygen Delivery Method Room Air Nasal Cannula Nasal Cannula Oxygen Flow Rate (L/min) 2 2 2 11/19/21 15:28 11/19/21 15:30 11/19/21 18:00 Temperature Temperature Source Pulse Rate 70 Respiratory Rate 18 Respiratory Effort Blood Pressure 164/83 H Blood Pressure Mean 110 Pulse Ox 86 94 97 Oxygen Delivery Method Room Air Nasal Cannula Nasal Cannula Oxygen Flow Rate (L/min) 2 2 Weight Weight: 181 lb 14.102 oz Body Mass Index (BMI) 33.3 Physical Exam Narrative Physical Examination: General: Awake, alert, oriented to self, place and recent events, very soft spoken and will speak but is very fatigued which is chronic has been noted secondary to her seizure medications, notes some discomfort to the right ankle otherwise no complaints Skin: Normal color, normal turgor, no icterus, no cyanosis. HEENT: AT/NC, EOMI, PERRLA, moderately dry MM, no carotid bruits or JVD noted. Lungs: Diminished, greater bases, appropriate effort, no rales, ronchi or wheezing. Heart: Currently regular rate and rhythm; no gallop, rub audible. Abdomen: Soft, obese, NTTP, ND, distant normal BS, no HSM. Extremities: No cyanosis, clubbing, or edema, tenderness to palpation of the right ankle, pending plain film Neurological: Patient awake, alert, oriented as noted, cognitive function is depressed secondary to seizure medications but this is chronic for patient and she is baseline intact; pupils equally reactive to light and accommodation, cranial nerves II-XII grossly normal, moving all 4 extremities, no focal deficits, strength moderately to severely global decreased Psychiatric: Affect appears flat, fatigued, no acute evidence of depressive or anxiety feelings. Results Lab / Micro Data Result Diagrams: 11/19/21 16:10 11/19/21 16:10 Labs: Laboratory Results - last 24 hr 11/19/21 16:10: WBC 8.5, RBC 3.89 L, Hgb 11.4 L, Hct 34.8 L, MCV 89.5, MCH 29.3, MCHC 32.8, RDW Std Deviation 47.4 H, RDW Coeff of Ernesto 14.6, Plt Count 156, MPV 9.4, Immature Gran % (Auto) 0.500, Neut % (Auto) 53.6, Lymph % (Auto) 34.5, Haakon % (Auto) 11.0 H, Eos % (Auto) 0.2, Baso % (Auto) 0.2, Absolute Neuts (auto) 4.5, Absolute Lymphs (auto) 2.92, Nucleated RBC % 0 11/19/21 16:10: Sodium 139, Potassium 4.0, Chloride 105, Carbon Dioxide 27.0, Anion Gap 7, BUN 13, Creatinine 0.68, Estim Creat Clear Calc 41.99, Est GFR (MDRD) Af Amer 111, Est GFR (MDRD) Non-Af 92, BUN/Creatinine Ratio 19.2, Glucose 129 H, Calcium 8.9, Total Bilirubin 0.30, AST 23, ALT < 6 L, Alkaline Phosphatase 55, Troponin I High Sens 61 H, Total Protein 8.5 H, Albumin 2.7 L, Globulin 5.8 H, Albumin/Globulin Ratio 0.5 L 11/19/21 16:26: Urine Color Yellow, Urine Clarity Sl. Cloudy, Urine pH 6.5, Ur Specific [place] 1.010, Urine Protein 500 H, Urine Glucose (UA) Normal, Urine Ketones 5 H, Urine Occult Blood Negative, Urine Nitrite Negative, Urine Bilirubin Negative, Urine Urobilinogen Normal, Ur Leukocyte Esterase 100 H, Urine RBC 0-5 SEEN, Urine WBC 10-25 SEEN, Ur Squamous Epith Cells 25-50 SEEN, Ur Transition Epith Cell 0-5 SEEN, Urine Bacteria 2+, Urine Mucus 0 SEEN, Urine Yeast RARE Radiology Impression Ankle X-Ray 11/19/21 15:00 IMPRESSION: Calcaneal spurs. Soft tissue swelling. Electronically Signed: Paresh Kebede MD at 15:14 EDT , Foot X-Ray 11/19/21 15:00 IMPRESSION: Degenerative changes. Electronically Signed: Paresh Kebede MD at 15:13 EDT , Knee X-Ray 11/19/21 15:00 IMPRESSION: Degenerative arthrosis. Electronically Signed: Paresh Kebede MD at 15:12 EDT , Chest X-Ray 11/19/21 16:45 IMPRESSION: No active disease. Electronically Signed: Devyn Lozano MD at 17:07 EDT , Assessment & Plan Assessment/Plan (1) Debility: (2) Frequent falls: PLAN: The patient is a 71 y/o F w/ PMHx: Anxiety and Depression, Seizure disorder, Tachy-maurizio syndrome s/p pacemaker, HTN, HLD, PAF, Diabetes mellitus type II with neuropathy, Obesity who presents to the [facility] ED on 11/19/21 with history of near fall at home, unable to even get up with assist with also her son with progressive decline over the last several months prompting family to bring her in secondary to debility and need for SNF. She notes primarily pain on the R side specifically R ankle and knee from being twisted. #1. Failure to thrive adult with debility, weakness and frequent falls: Patient has had progressive decline over the last year, worsened over the last several months, will admit to medical surgical floor, maintain on fall and aspiration precautions, per discussion with patient and her will have PT/OT/case management assessments for likely transitional care versus long-term facility temporarily placement until improved given inability for her to help her at home safely. L sided films unremarkable, awaiting R sided films foot, ankle, knee. #2. Hypoxia, unclear etiology: Upon presentation patient is hypoxic with oxygenation 86% on room air with improvement to 94% on 2 L nasal cannula, unclear if secondary to significant sedated regimen with her seizure medications, chest x-ray with no acute findings, Covid testing is pending, no COPD history, will plan judicious hydration, repeat chest x-ray a.m, obtain ABG, TSH.FT4, given history of weakness and decline with hypoxia could certainly could be neuro depression or myopathy related but unable to obtain MRI brain secondary to pacemaker status thus will obtain CT head, mag and phos also pending. #3. Hypertension: Continue home regimen including rammer Laura, amlodipine with hold parameters as needed, PRN hydralazine. #4. Hyperlipidemia: We will continue patient on statin therapy. #5. Tachybradycardia syndrome: Status post pacemaker placement, encourage continued outpatient follow-up with cardiology as previously arranged. #6. PAF: Status post pacemaker, not anticoagulated and not on any rate or rhythm agent #7. Seizure disorder: We will continue patient significant antiepileptic regimen including Vimpat, Synera known, Depakote. #8. Anxiety and depression: We will continue patient home mirtazapine regimen #9. Diabetes mellitus type II: With neuropathy hold oral home regimen, ADA diet, accu checks w/ ISS, continue patient home pregabalin regimen. #10. Obesity: Weight loss and lifestyle changes encouraged. #11. DVT prophylaxis: SCDs, Lovenox. #12. CODE STATUS: Full code. Patient's who is present is her healthcare power of immigration attorney, no living will in place. Charges/Coding Visit Charges OBSV E&M: 45550 Initial observation care L3
[2021-11-19 18:51] LABS: Magnesium 1.6 mg/dL (1.6-2.6); Troponin-I HS 56 pg/mL (3.0-54.0)
[2021-11-19 19:00] LABS: T4 Free Direct 1.17 ng/dL (0.76-1.46); Thyroid Stim Hormone (TSH) 1.28 uIU/mL (0.358-3.74)
--- NOTE | 2021-11-19 19:30 | RAD_ITS ---
STUDY: RIGHT ANKLE SERIES--3 VIEWS OF 1913 HOURS ON 11/19/2021 REASON FOR EXAM: 71-year-old female with ankle injury and pain. TECHNIQUE: 3 view(s) of the ankle. COMPARISON: None. FINDINGS: No evidence of fractures or dislocations. Balanced ankle mortise. No significant arthritic or degenerative changes. No osseous lytic, sclerotic or mass lesions. Extensive arterial vascular calcification. Mild soft tissue swelling adjacent to the medial malleolus. Moderate-sized Achilles and calcaneal spurs. RAD/Ankle min 3 Views IMPRESSION: 1. No fractures or dislocations. 2. Balanced ankle mortise. 3. No significant arthritic or degenerative changes. 4. Extensive vascular arterial calcification. 5. Moderate size Achilles and calcaneal spurs. Electronically Signed: Juventino Crowell MD at 21:01 EDT ,
[2021-11-19] MEDS: 0.9% Normal Saline 1,000 ML 100 ML IV (20:56)
[2021-11-19 21:11] LABS: Allen Test Positive; Base Excess 2 mmol/L (-2 to +2); Blood Gas Specimen Type ART; O2 Delivery Device Cannula; PO2 65 mmHG (75-100); SITE R Radial; SO2 93 % (95-99); Total Carbon Dioxide 28 mmol/L; pCO2 42.6 mmHg (35-45); pH 7.41 (7.35-7.45)
--- NOTE | 2021-11-19 21:20 | CT_ITS ---
STUDY: CT BRAIN WITHOUT CONTRAST ENHANCEMENT OF 2125 HOURS ON 11/19/2021 REASON FOR EXAM: 71-year-old female with transient ischemic attack symptomatology. RADIATION DOSAGE (If Supplied By Facility): CTDIvol = ( 44.99 ) mGy, DLP = ( 796.11 ) mGycm TECHNIQUE: Transaxial CT imaging of the brain was performed without administration of intravenous contrast material. Individualized dose optimization techniques were used for this CT. COMPARISON: 06/03/2020. FINDINGS: There is disproportionate moderate enlargement of the posterior horn of the right lateral ventricle with mild adjacent right occipital encephalomalacia--unchanged since the previous study of 06/03/2020. There is no evidence of significant central, cortical, or cerebellar atrophy. There is no evidence of intracranial neoplasms, ischemic or hemorrhagic cerebral infarcts, or subarachnoid hemorrhage. There is no evidence of a subdural, epidural, or intracerebral hematoma or contusion. There is a normal calvarium without linear or depressed skull fractures. There are normal paranasal sinuses; there is no evidence of acute or chronic sinusitis. Importantly, there is no evidence of interval change since previous study of CT/Brain/Head without Contrast IMPRESSION: 1. No significant interval change since previous study of 06/03/2020. 2. Disproportionate moderate enlargement of the posterior horn of the right lateral ventricle with mild adjacent right occipital encephalomalacia. 3. No evidence of intracranial mass lesions. 4. No evidence of ischemic or hemorrhagic cerebral infarcts. 5. No subdural, epidural, or intracerebral hematoma, hemorrhage or contusion. 6. Normal calvarium and paranasal sinuses. Electronically Signed: Juventino Crowell MD at 0:59 EDT ,
[2021-11-19] MEDS: Mirtazapine 30 MG Tablet 45 MG PO (22:09)
[2021-11-19] MEDS: Atorvastatin Calcium 20 MG Tablet PO (22:09)
[2021-11-19] MEDS: Divalproex (ER) 500 MG Tablet 1000 MG PO (22:09)
[2021-11-19] MEDS: Lacosamide 50 MG Tablet 150 MG PO (22:09)
[2021-11-19] MEDS: Pregabalin 50 MG Capsule 100 MG PO (22:14)
[2021-11-19] MEDS: Insulin Lispro 100 UNIT/ML INSULN.PEN SC (22:18)
[2021-11-19 22:26] LABS: Bedside Glucose 175 mg/dL (74-106)
[2021-11-19] MEDS: CLARIFY ORDER NOTE (23:27)
[2021-11-20 02:00] VITALS: BP 146/71; PULSE 74; RESP 16; TEMP 36.6; O2SAT 95
[2021-11-20 05:31] LABS: Absolute Lymphocyte Count 2.71 X10^3/uL (0.83-4.51); Absolute Neutrophil Count 4.2 X10^3/uL (2.0-7.7); Basophil# 0.02 X10^3/uL; Basophil% 0.3 % (0-1); Eosinophil# 0.01 X10^3/uL; Eosinophils% 0.1 % (0-5); Hematocrit 31.4 % (37-47); Hemoglobin 10.2 g/dL (12.0-15.0); Lymphocyte # 2.71 X10^3/ul (0.83-4.51); Lymphocyte % 35.5 % (19-41); Mean Corp Hgb Conc 32.5 g/dL (32-36); Mean Corpuscular Hgb 28.7 pg (27.0-32.0); Mean Corpuscular Volume 88.2 fL (81-99); Mean Platelet Vol. 10.1 fl (6.2-12.0); Monocyte# 0.62 X10^3/uL; Monocyte% 8.1 % (0-10); NRBC Flagged by Analyzer 0 % (0-5); Neutrophil # 4.23 X10^3/uL (2.7-7.7); Neutrophil % 55.5 % (47-70); Platelet Count 146 K/mm3 (150-450); RBC Distribution Width CV 14.6 % (11.6-14.6); Red Blood Count 3.56 M/mm3 (4.2-5.4); White Blood Count 7.6 K/mm3 (4.4-11.0)
--- NOTE | 2021-11-20 05:55 | RAD_ITS ---
STUDY: CHEST SERIES-AP AND LATERAL VIEWS OF 1922 HOURS 11/20/2021 REASON FOR EXAM: 71-year-old female with hypoxia. TECHNIQUE: A standard 2 view chest x-ray series was performed per protocol. COMPARISON: None. FINDINGS: Mild demineralization. Poor inspiratory effort. Mild to moderate cardiomegaly with borderline heart failure. Dual-lead pacemaker with distal leads in expected positions. Mild prominence of bronchovascular markings in both lower lobes with concurrent interstitial changes--cannot exclude minimal pneumonias. Mild left lower lobe atelectasis. No effusions. No pulmonary mass lesions. RAD/Chest PA and Lateral IMPRESSION: 1. Poor inspiratory effort. 2. Mild to moderate cardiomegaly with borderline heart failure. 3. Dual-lead pacemaker with distal leads in expected positions. 4. Mild prominence of bronchovascular markings in both lower lobes with concurrent interstitial changes--cannot exclude minimal pneumonia is in both lower lobes. 5. Mild left lower lobe atelectasis. 6. No evidence of other abnormalities. . Electronically Signed: Juventino Crowell MD at 17:14 EDT ,
[2021-11-20 05:58] LABS: ALB/GLOB Ratio 0.4 RATIO (0.9-2.4); AST(SGOT) 21 U/L (15-37); Alanine Aminotransfer ALT/SGPT < 6 U/L (13-56); Albumin, Serum 2.4 g/dL (3.2-5.0); Alkaline Phosphatase 52 U/L (45-117); Anion Gap 5 (5-15); BUN 11 mg/dL (7-18); BUN/Creat Ratio 20.4 RATIO (10-20); Calcium,Total 7.9 mg/dL (8.5-10.1); Chloride 105 mmol/L (98-107); Creatinine, Serum 0.54 mg/dL (0.55-1.02); EST Glomerular Filtration Rate 119 mL/min (>60); Est Glom Filt Rate - Afr Amer 144 mL/min (>60); Estimated Creatinine Clearance 41.99 ml/min; Globulin 5.4 g/dL (2.2-4.2); Glucose 150 mg/dL (74-106); Potassium 4.2 mmol/L (3.5-5.1); Protein, Total 7.8 g/dL (6.4-8.2); Sodium Level 138 mmol/L (136-145)
--- NOTE | 2021-11-20 06:09 | NURSING ---
Pt bladder scanned for 581; straight cath 600ml
[2021-11-20] MEDS: Insulin Lispro 100 UNIT/ML INSULN.PEN SC ×4 (06:10→22:29)
[2021-11-20 06:16] LABS: Bedside Glucose 159 mg/dL (74-106)
--- NOTE | 2021-11-20 06:19 | PN.HOSP_ITS ---
Subjective Subjective Patient overnight with no acute events per discussion with staff and patient. This morning however she does have low-grade temperature 100.1 with no white count or left shift with certainly some suspicion for atelectasis however repeat chest x-ray PA and lateral pending as well as procalcitonin. Discussed current plan of care which included continued plan for skilled facility placement however to be cautious given mild hypoxia noted intention for work-up which included ABG which was not marked appearing aside from mildly reduced PO2, phosphorus level, troponin mildly elevated but unchanged with echocardiogram requested and pending, normal TSH as well as free T4, CT of the brain with no significant interval change since 2019 with disproportionate moderate enlargement posterior horn of the right lateral ventricle with mild adjacent right occipital encephalomalacia with otherwise no acute intracranial findings, repeat urinalysis requested as initial poor sample per ED. Patient notes feeling fatigued but otherwise no complaints. Did discuss medicine adjustment including hold on her nightly mirtazapine as this may be contributing to her lethargy to which she is amenable. Patient denies fevers, chills, nausea, emesis, abdominal pain, chest pain or dyspnea. Objective Data Objective Data Vital Signs: Vital Signs Temp Pulse Resp BP Pulse Ox 97.8 F 74 16 146/71 H 95 11/20/21 02:00 11/20/21 02:00 11/20/21 02:00 11/20/21 02:00 11/20/21 02:00 Oxygen Flow Rate (L/min) 2 Oxygen Delivery Method Nasal Cannula Weight: 164 lb 0.383 oz Body Mass Index (BMI) 29.9 Intake & Output: Intake and Output for Last 24 Hours 11/18/21 11/19/21 11/20/21 23:59 23:59 23:59 Intake Total 350 / 350 Output Total 600 / 600 Balance -250 / -250 Lab / Micro Data Result Diagrams: 11/20/21 05:20 11/20/21 05:20 Labs: Laboratory Results - last 24 hr 11/19/21 16:10: WBC 8.5, RBC 3.89 L, Hgb 11.4 L, Hct 34.8 L, MCV 89.5, MCH 29.3, MCHC 32.8, RDW Std Deviation 47.4 H, RDW Coeff of Ernesto 14.6, Plt Count 156, MPV 9.4, Immature Gran % (Auto) 0.500, Neut % (Auto) 53.6, Lymph % (Auto) 34.5, Lanier % (Auto) 11.0 H, Eos % (Auto) 0.2, Baso % (Auto) 0.2, Absolute Neuts (auto) 4.5, Absolute Lymphs (auto) 2.92, Nucleated RBC % 0 11/19/21 16:10: Sodium 139, Potassium 4.0, Chloride 105, Carbon Dioxide 27.0, Anion Gap 7, BUN 13, Creatinine 0.68, Estim Creat Clear Calc 41.99, Est GFR (MDRD) Af Amer 111, Est GFR (MDRD) Non-Af 92, BUN/Creatinine Ratio 19.2, Glucose 129 H, Calcium 8.9, Total Bilirubin 0.30, AST 23, ALT < 6 L, Alkaline Phosphatase 55, Troponin I High Sens 61 H, Total Protein 8.5 H, Albumin 2.7 L, Globulin 5.8 H, Albumin/Globulin Ratio 0.5 L 11/19/21 16:26: Urine Color Yellow, Urine Clarity Sl. Cloudy, Urine pH 6.5, Ur Specific Anna 1.010, Urine Protein 500 H, Urine Glucose (UA) Normal, Urine Ketones 5 H, Urine Occult Blood Negative, Urine Nitrite Negative, Urine Bilirubin Negative, Urine Urobilinogen Normal, Ur Leukocyte Esterase 100 H, Urine RBC 0-5 SEEN, Urine WBC 10-25 SEEN, Ur Squamous Epith Cells 25-50 SEEN, Ur Transition Epith Cell 0-5 SEEN, Urine Bacteria 2+, Urine Mucus 0 SEEN, Urine Yeast RARE 11/19/21 18:10: Magnesium 1.6, Troponin I High Sens 56 H 11/19/21 18:10: Phosphorus 4.0, TSH 1.28, Free T4 1.17 11/19/21 22:16: POC Glucose 175 H 11/20/21 05:20: WBC 7.6, RBC 3.56 L, Hgb 10.2 L, Hct 31.4 L, MCV 88.2, MCH 28.7, MCHC 32.5, RDW Std Deviation 47.0 H, RDW Coeff of Ernesto 14.6, Plt Count 146 L, MPV 10.1, Immature Gran % (Auto) 0.500, Neut % (Auto) 55.5, Lymph % (Auto) 35.5, Lanier % (Auto) 8.1, Eos % (Auto) 0.1, Baso % (Auto) 0.3, Absolute Neuts (auto) 4.2, Absolute Lymphs (auto) 2.71, Nucleated RBC % 0 11/20/21 05:20: Sodium 138, Potassium 4.2, Chloride 105, Carbon Dioxide 28.0, Anion Gap 5, BUN 11, Creatinine 0.54 L, Estim Creat Clear Calc 41.99, Est GFR (MDRD) Af Amer 144, Est GFR (MDRD) Non-Af 119, BUN/Creatinine Ratio 20.4 H, Glu cose 150 H, Calcium 7.9 L, Total Bilirubin 0.30, AST 21, ALT < 6 L, Alkaline Phosphatase 52, Total Protein 7.8, Albumin 2.4 L, Globulin 5.4 H, Albumin/Globulin Ratio 0.4 L 11/20/21 06:06: POC Glucose 159 H Micro: Microbiology 11/19/21 18:05 Nasal Secretion SARS-CoV-2 Antigen (Rapid) - Final ABG Data ABG results: ABG 11/19/21 21:05 Specimen Type ART Sample Site R Radial pH 7.41 Bicarbonate Actual 27.0 H Total CO2 28 Base Excess 2 O2 Saturation 93 L ABG pCO2 42.6 ABG pO2 65 L Mao Test Positive O2 Delivery Device Cannula Liter Flow 2.0 Radiography Diagnostic Testing: Radiology Impression Ankle X-Ray 11/19/21 15:00 IMPRESSION: Calcaneal spurs. Soft tissue swelling. Electronically Signed: Paresh Kebede MD at 15:14 EDT , Foot X-Ray 11/19/21 15:00 IMPRESSION: Degenerative changes. Electronically Signed: Paresh Kebede MD at 15:13 EDT , Knee X-Ray 11/19/21 15:00 IMPRESSION: Degenerative arthrosis. Electronically Signed: Paresh Kebede MD at 15:12 EDT , Chest X-Ray 11/19/21 16:45 IMPRESSION: No active disease. Electronically Signed: Devyn Lozano MD at 17:07 EDT , Foot X-Ray 11/19/21 17:57 IMPRESSION: 1. No fractures or dislocations 2. Minimal osteophytic degenerative changes of the distal and phalangeal joints of the right foot. 3. Mild valgus deformity of the first metatarsal-phalangeal joint. 4. Moderate-sized calcaneal and Achilles spurs. 5. Extensive arterial calcification in the region of the ankle. Electronically Signed: Juventino Crowell MD at 20:58 EDT , Knee X-Ray 11/19/21 17:57 IMPRESSION: 1. No fractures or dislocations. 2. Mild degenerative changes of the knee joint posterior aspect of patella. 3. Balanced knee joint. 4. Extensive calcification of the distal superficial femoral artery and popliteal artery. Electronically Signed: Juventino Crowell MD at 20:55 EDT , Ankle X-Ray 11/19/21 19:30 IMPRESSION: 1. No fractures or dislocations. 2. Balanced ankle mortise. 3. No significant arthritic or degenerative changes. 4. Extensive vascular arterial calcification. 5. Moderate size Achilles and calcaneal spurs. Electronically Signed: Juventino Crowell MD at 21:01 EDT , Brain CT 11/19/21 21:20 IMPRESSION: 1. No significant interval change since previous study of 06/03/2020. 2. Disproportionate moderate enlargement of the posterior horn of the right lateral ventricle with mild adjacent right occipital encephalomalacia. 3. No evidence of intracranial mass lesions. 4. No evidence of ischemic or hemorrhagic cerebral infarcts. 5. No subdural, epidural, or intracerebral hematoma, hemorrhage or contusion. 6. Normal calvarium and paranasal sinuses. Electronically Signed: Juventino Crowell MD at 0:59 EDT , Physical Exam Narrative Physical Examination: General: Awake, alert, oriented to x3 this a.m., more interactive and less soft- spoken the day prior, fatigued appearing, notes ankle discomfort has subsided. Skin: Normal color, normal turgor, no icterus, no cyanosis. HEENT: AT/NC, EOMI, PERRLA, improved/dry MM. Lungs: Diminished, greater bases, appropriate effort, no rales, ronchi or wheezing. Heart: Currently regular rate and rhythm; no gallop, rub audible. Abdomen: Soft, obese, NTTP, ND, distant normal BS. Extremities: No cyanosis, clubbing, or edema, right ankle tenderness is subsided. Neurological: Patient awake, alert, oriented as noted, cognitive function improved today, more interactive and less fatigued appearing, do suspect we are likely at patient's baseline, pupils equally reactive to light and accommodation, cranial nerves grossly normal, moving all 4 extremities, no focal deficits, strength moderately to severely global decreased Psychiatric: Affect appears flat, however she is more interactive, no acute evidence of depressive or anxiety feelings. Assessment & Plan Assessment/Plan (1) Debility: (2) Frequent falls: PLAN: The patient is a 71 y/o F w/ PMHx: Anxiety and Depression, Seizure d isorder, Tachy-maurizio syndrome s/p pacemaker, HTN, HLD, PAF, Diabetes mellitus type II with neuropathy, Obesity who presents to the [facility] ED on 11/19/21 with history of near fall at home, unable to even get up with assist with also her son with progressive decline over the last several months prompting family to bring her in secondary to debility and need for SNF. She notes primarily pain on the R side specifically R ankle and knee from being twisted. #1. Failure to thrive adult with debility, weakness and frequent falls: Patient has had progressive decline over the last year, worsened over the last several months, will admit to medical surgical floor, maintain on fall and aspiration p recautions, ongoing evaluation given #2 to assure this is not also a component of her worsened FTT, BL LE knee, ankle/foot films unremarkable. PT/OT/CM consultations ongoing for placement. #2. Hypoxia, unclear etiology: Upon presentation patient is hypoxic with oxygenation 86% on room air with improvement to 94% on 2 L nasal cannula, unclear if secondary to significant sedated regimen with her seizure medications, chest x-ray with no acute findings w/ repeat PA and laternal 11/20/21 following overnight hydration pending, COVID Negative, ABG with mildly reduced pO2 otherwise not marked, Mag/Phos not markedly reduced, TSH/T$ normal, CT of the brain with no significant interval change since 2019 with disproportionate moderate enlargement posterior horn of the right lateral ventricle with mild adjacent right occipital encephalomalacia with otherwise no acute intracranial findings, mildly elevated trop x 2 with ECHO requested and pending w/ no anginal symptoms, repeat UA with catheterized specimen requested also. #3. Fever, Unclear etiology: Potentially related to #2, repeat CXR PA and lateral pending given overnight hydration, repeat UA with improved collection requested, certainly could be atelectasis given #1 presentation. COVID negative. #4. Indeterminate enzymes: EKG in ED no acute evidence of ischemia, CXR w/ no acute cardiopulmonary findings have a repeat chest x-ray this a.m. with PA and lateral pending, troponin trending requested upon admission with initial 61 and repeat 56 with additional currently pending, maintained on monitor, echocardiogram requested, maintain on baby aspirin. If concerning findings on ECHO will consult Cardiology as suspect primarily mildly elevated secondary to her hypoxia noted upon EMS evaluation and upon ED presentation. #5. Hypertension: Continue home regimen including ramipril, amlodipine with hold parameters as needed, PRN hydralazine. #6. Hyperlipidemia: We will continue patient on statin therapy. #7. Tachybradycardia syndrome: Status post pacemaker placement, encourage continued outpatient follow-up with cardiology as previously arranged. #8. PAF: Status post pacemaker, not anticoagulated and not on any rate or rhythm agent #9. Seizure disorder: We will continue patient significant antiepileptic regime n including Vimpat, Synera known, Depakote. #10. Anxiety and depression: We will temporally hold patient's mirtazapine regimen as this certainly could be contributing to her increased lethargy and f atigue.. #11. Diabetes mellitus type II: With neuropathy hold oral home regimen, ADA diet, accu checks w/ ISS, continue patient home pregabalin regimen. #12. Obesity: Weight loss and lifestyle changes encouraged. #13. DVT prophylaxis: SCDs, Lovenox. #14. CODE STATUS: Full code. Patient's who is present is her healthcare power of mergers and acquisitions attorney, no living will in place. Charges/Coding Visit Charges OBSV E&M: 40091 Subsequent observation care L3
[2021-11-20 08:00] VITALS: BP 132/75; PULSE 78; RESP 16; TEMP 37.8; O2SAT 96
[2021-11-20 08:10] VITALS: O2SAT 93
--- NOTE | 2021-11-20 09:08 | ECHOCS_ITS ---
Reason For Study: NSTEMI Procedure This was a 2D Doppler, Color Flow transthoracic echocardiogram. The study was technically difficult. The study was technically limited. Exam performed portable in patient room. Left Ventricle Normal left ventricle. The estimated ejection fraction is 55-60 %. Right Ventricle Normal right ventricle. Normal systolic function. Atria Normal left atrium. Normal right atrium. Mitral Valve The mitral valve is structurally normal. No prolapse or stenosis seen. No mitral valve insufficiency. Tricuspid Valve Normal tricuspid valve. Mild tricuspid valve insufficiency. Aortic Valve Normal aortic valve. No aortic valve insufficiency. Pulmonic Valve The pulmonic valve is not well visualized. Great Vessels Normal aortic root. Pericardium/Pleural No pericardial effusion. Medication Diluted definity 2ml given slow IV push to enhance endocardial definition. MMode/2D Measurements & Calculations LVIDd: 3.7 cm IVSd: 1.5 cm Ao root diam: 3.8 cm LVIDs: 2.3 cm LVPWd: 1.4 cm RVDd: 3.6 cm FS: 37.8 % LAV(MOD-sp4): 58.9 ml LVAd ap4: 23.9 cm2 SV(MOD-sp4): 44.2 ml LVLd ap4: 7.9 cm EDV(MOD-sp4): 59.8 ml EDV(sp4-el): 61.3 ml LVAs ap4: 10.8 cm2 LVLs ap4: 6.6 cm ESV(MOD-sp4): 15.6 ml ESV(sp4-el): 15.0 ml EF(MOD-sp4): 73.9 % EF(sp4-el): 75.6 % SV(sp4-el): 46.4 ml LA A4 area: 20.4 cm2 LA dimension(2D): 2.7 cm Doppler Measurements & Calculations MV E max mp: 58.7 cm/sec Lat Peak E' Mp: 5.6 cm/sec Med Peak E' Mp: 5.8 cm/sec MV A max mp: 79.3 cm/sec E/E' lat: 10.4 E/E' med: 10.2 MV E/A: 0.74 Ao V2 max: 159.9 cm/sec LV V1 max: 113.7 cm/sec PA V2 max: 84.6 cm/sec Ao max P.2 mmHg LV V1 max P.2 mmHg TR max mp: 232.9 cm/sec TR max P.7 mmHg ECHO/Echo Complete W/ Contrast Interpretation Summary The estimated ejection fraction is 55-60 %. Normal LV systolic function Grade #1 Diastolic Dysfunction Pacemaker noted on R.side Mild TR Definity /contrsat echo used Ordering Physician: Cortney Akers Referring Physician: Hannah Riggs M.D. Performed By: Carol Georges RDCS
[2021-11-20] MEDS: Divalproex (ER) 500 MG Tablet PO (09:53)
[2021-11-20] MEDS: Pregabalin 50 MG Capsule 100 MG PO ×2 (09:53→22:29)
[2021-11-20] MEDS: amLODIPine 5 MG Tablet PO (09:53)
[2021-11-20] MEDS: Enoxaparin 40 MG/0.4 ML Syringe SC (09:53)
[2021-11-20] MEDS: Ramipril 10 MG Capsule PO (09:53)
[2021-11-20] MEDS: Tolterodine Tartrate 2 MG CAP.SA PO (09:53)
[2021-11-20] MEDS: Lacosamide 50 MG Tablet 100 MG PO (11:21)
[2021-11-20] MEDS: Acetaminophen 325 MG Tablet 650 MG PO (11:31)
[2021-11-20 11:36] LABS: Bedside Glucose 168 mg/dL (74-106)
[2021-11-20 12:57] LABS: Bacteria 0 SEEN /hpf (None Seen); Mucous, Urine 0 SEEN /hpf (<or=2+); Red Blood Cells-Urine 0 SEEN /hpf (0-5)
[2021-11-20 12:59] LABS: Color, Urine Yellow (Yellow); Glucose, Dipstick Normal (Normal); Ketone-Dipstick 15 mg/dl (Negative); Leukocyte Esterase-Dipstick 100 /ul (Negative); Nitrite-Dipstick Negative (Negative); Occult Blood-Urine 10 /ul (Negative); Protein-Dipstick 500 mg/dl (Negative); Urine Bilirubin Dipstick Negative (Negative); Urine Clarity Sl. Cloudy (Clear); Urine Urobilinogen Normal (Normal)
[2021-11-20 13:05] LABS: Squamous Epithelial Cells - UA 25-50 SEEN /hpf (5-10); White Blood Cells 25-50 SEEN /hpf (0-5)
[2021-11-20 13:29] LABS: Troponin-I HS 49 pg/mL (3.0-54.0)
[2021-11-20 13:49] LABS: Procalcitonin 0.09 ng/mL (0.00-0.09)
--- NOTE | 2021-11-20 13:55 | CASEMGMT ---
Social Work Note SW in to speak with pt regarding SNF placement. Pt's Thuan present in room. SW introduced self and role at [facility]. Thuan states preferred provider is [facility]. SW explained referral process. Pt's other guest in room asking medical questions. SW informed pt's guest that this worker cannot answer medical questions and this worker will have RN speak to them. SW placed a call to Megan with TCU and provided referral. ROMI received call from Megan with TCU stating TCU can accept pt pending pre-cert. SW back in to speak with pt, pt's Thuan and pt's additional guest. SW updated all that TCU is able to accept pt pending pre-cert. SW updated RN. Plan: TCU pending pre-cert Filomena Garza BULK LOADER, CARD FOLDER
[2021-11-20 14:30] VITALS: BP 160/72; PULSE 79; RESP 16; TEMP 36.9; O2SAT 95
--- NOTE | 2021-11-20 16:00 | CASEMGMT ---
RN MIKEY in to pt room, made pt aware of [employer] form. Pt requested this RN CM call her . TC to pt Thuan Nash on his cell phone. Explained [employer] form, pt verbalized understanding. Answered his questions. Witnessed by John COTTO. Copy of form left in patient room for to review.
[2021-11-20 16:41] LABS: Bacteria 0 SEEN /hpf (None Seen); Mucous, Urine 0 SEEN /hpf (<or=2+); Red Blood Cells-Urine 0 SEEN /hpf (0-5)
[2021-11-20 16:47] LABS: Color, Urine Yellow (Yellow); Glucose, Dipstick Normal (Normal); Ketone-Dipstick 5 mg/dl (Negative); Leukocyte Esterase-Dipstick 25 /ul (Negative); Nitrite-Dipstick Negative (Negative); Occult Blood-Urine Negative /ul (Negative); Protein-Dipstick 500 mg/dl (Negative); Urine Bilirubin Dipstick Negative (Negative); Urine Clarity Sl. Cloudy (Clear); Urine Urobilinogen Normal (Normal)
[2021-11-20] MEDS: Aspirin 81 MG TAB.CHEW PO (17:00)
[2021-11-20 17:07] LABS: Squamous Epithelial Cells - UA 0-5 SEEN /hpf (5-10); White Blood Cells 0-5 SEEN /hpf (0-5)
--- NOTE | 2021-11-20 17:08 | NURSING ---
life consultant calling family to bring in kerendia medication.
[2021-11-20 17:11] LABS: Bedside Glucose 201 mg/dL (74-106)
[2021-11-20 20:27] VITALS: BP 125/60; PULSE 62; RESP 16; TEMP 37.2; O2SAT 96
[2021-11-20] MEDS: Atorvastatin Calcium 20 MG Tablet PO (22:30)
[2021-11-20] MEDS: Lacosamide 50 MG Tablet 150 MG PO (22:30)
[2021-11-20] MEDS: Divalproex (ER) 500 MG Tablet 1000 MG PO (22:30)
[2021-11-21] VITALS (7 sets, daily range): BP systolic 139–155; BP diastolic 65–83; PULSE 59–76; RESP 16–18; TEMP 36.4–37.4; O2SAT 92–97
[2021-11-21 03:55] LABS: Bedside Glucose 179 mg/dL (74-106)
[2021-11-21] MEDS: Acetaminophen 325 MG Tablet 650 MG PO ×3 (03:59→21:30)
--- NOTE | 2021-11-21 06:06 | PCM.PN.HOSP ---
Subjective Subjective Patient overnight with no acute events per self and per nursing report. This morning patient is much more alert and less fatigued with recent discontinuation of mirtazapine. Patient eventually working with therapy and transition to the bedside chair. She does report ongoing right ankle and foot discomfort and states that previously over the last several weeks she did have some calf discomfort therefore also obtained duplex ultrasound which was negative. Noted to both family and patient plan for evaluation of right foot given severity of discomfort especially with standing by podiatry. Also discussed recent urine analysis with noted greater than 100,000 GPC possibly Enterococcus as well as chest x-ray with mild prominence of bronchovascular markings in bilateral lobes with ongoing mild elevated temperatures despite no marked WC elevation or left shift and normal infectious markers with ID discussions with initiation of IV vancomycin and Zosyn based on prior resistance patterns. Patient denies fevers, chills, nausea, emesis, abdominal pain, chest pain or dyspnea. Objective Data Objective Data Vital Signs: Vital Signs Temp Pulse Resp BP Pulse Ox 98.9 F 67 16 151/69 H 96 11/21/21 04:56 11/21/21 04:04 11/21/21 04:04 11/21/21 04:04 11/21/21 04:04 Oxygen Flow Rate (L/min) 2 Oxygen Delivery Method Nasal Cannula Weight: 163 lb 12.855 oz Body Mass Index (BMI) 29.9 Intake & Output: Intake and Output for Last 24 Hours 11/19/21 11/20/21 11/21/21 23:59 23:59 23:59 Intake Total 2534 / 2534 300 / 300 Output Total 1000 / 1000 Balance 1534 / 1534 300 / 300 Lab / Micro Data Result Diagrams: 11/21/21 14:00 11/21/21 14:00 Labs: Laboratory Results - last 24 hr 11/20/21 06:06: POC Glucose 159 H 11/20/21 11:28: POC Glucose 168 H 11/20/21 12:50: Urine Color Yellow, Urine Clarity Sl. Cloudy, Urine pH 6.0, Ur Specific [place] 1.020, Urine Protein 500 H, Urine Glucose (UA) Normal, Urine Ketones 15 H, Urine Occult Blood 10 H, Urine Nitrite Negative, Urine Bilirubin Negative, Urine Urobilinogen Normal, Ur Leukocyte Esterase 100 H, Urine RBC 0 SEEN, Urine WBC 25-50 SEEN, Ur Squamous Epith Cells 25-50 SEEN, Urine Bacteria 0 SEEN, Urine Mucus 0 SEEN 11/20/21 12:58: Procalcitonin 0.09 11/20/21 12:58: Troponin I High Sens 49 11/20/21 16:34: Urine Color Yellow, Urine Clarity Sl. Cloudy, Urine pH 6.0, Ur Specific [place] 1.020, Urine Protein 500 H, Urine Glucose (UA) Normal, Urine Ketones 5 H, Urine Occult Blood Negative, Urine Nitrite Negative, Urine Bilirubin Negative, Urine Urobilinogen Normal, Ur Leukocyte Esterase 25 H, Urine RBC 0 SEEN, Urine WBC 0-5 SEEN, Ur Squamous Epith Cells 0-5 SEEN, Urine Bacteria 0 SEEN, Urine Mucus 0 SEEN 11/20/21 16:59: POC Glucose 201 H 11/20/21 22:28: POC Glucose 179 H Micro: Microbiology 11/19/21 18:05 Nasal Secretion SARS-CoV-2 Antigen (Rapid) - Final Radiography Diagnostic Testing: Radiology Impression Chest X-Ray 11/20/21 05:55 IMPRESSION: 1. Poor inspiratory effort. 2. Mild to moderate cardiomegaly with borderline heart failure. 3. Dual-lead pacemaker with distal leads in expected positions. 4. Mild prominence of bronchovascular markings in both lower lobes with concurrent interstitial changes--cannot exclude minimal pneumonia is in both lower lobes. 5. Mild left lower lobe atelectasis. 6. No evidence of other abnormalities. . Electronically Signed: Juventino Crowell MD at 17:14 EDT Reading Location ID and State: [facility] / [place] Tel , Service support , Echocardiogram 11/20/21 09:08 Interpretation Summary The estimated ejection fraction is 55-60 %. Normal LV systolic function Grade #1 Diastolic Dysfunction Pacemaker noted on R.side Mild TR Definity /contrsat echo used Ordering Physician: Cortney Akers Referring Physician: Hannah Riggs M.D. Performed By: Carol Georges RDCS Physical Exam Narrative Physical Examination: General: Awake, alert, oriented to x3 this a.m., more interactive, eventually transition to bedside chair, very alert especially compared to day prior, reports some discomfort to her right foot. Skin: Normal color, normal turgor, no icterus, no cyanosis. HEENT: AT/NC, EOMI, PERRLA, MMM. Lungs: Mildly diminished, greater bases, appropriate effort, no rales, ronchi or wheezing. Heart: Regular rate and rhythm; no gallop, rub audible. Abdomen: Soft, obese, NTTP, ND, distant normal BS. Extremities: No cyanosis, clubbing, right ankle tenderness although lessened than initial presentation, some mild dorsal foot swelling, no significant skin changes or any evidence of erythema. No calf pain with palpation. Neurological: Patient awake, alert, oriented as noted, cognitive function improved today, more interactive and less fatigued appearing, do suspect we are likely at patient's baseline, pupils equally reactive to light and accommodation, cranial nerves grossly normal, moving all 4 extremities, no focal deficits, strength moderately to severely global decreased Psychiatric: Affect appears less fatigued, more talkative, no acute evidence of depressive or anxiety feelings. Assessment & Plan Assessment/Plan (1) Debility: (2) Frequent falls: PLAN: The patient is a 71 y/o F w/ PMHx: Anxiety and Depression, Seizure disorder, Tachy-maurizio syndrome s/p pacemaker, HTN, HLD, PAF, Diabetes mellitus type II with neuropathy, Obesity who presents to the [facility] ED on 11/19/21 with history of near fall at home, unable to even get up with assist with also her son with progressive decline over the last several months prompting family to bring her in secondary to debility and need for SNF. She notes primarily pain on the R side specifically R ankle and knee from being twisted. #1. Failure to thrive adult with debility, weakness and frequent falls: Patient has had progressive decline over the last year, worsened over the last several months, will admit to medical surgical floor, maintain on fall and aspiration precautions, ongoing evaluation given #2 to assure this is not also a component of her worsened FTT, BL LE knee, ankle/foot films unremarkable. PT/OT/CM consultations ongoing for placement. #2. Acute Hypoxia, potentially Multifactorial, including CAP as well as sedation medications (AEDs): Upon presentation patient noted to incidentally be hypoxic with oxygenation 86% on room air with improvement to 94% on 2 L nasal cannula, was unclear if secondary to significant sedated regimen with her seizure medications, chest x-ray with no acute findings w/ repeat PA and lateral 11/20/21 following overnight hydration with mild to moderate cardiomegaly with borderline heart failure, pacer present, mild prominence of bronchovascular markings both lower lobes with concurrent interstitial changes, mild left lower lobe atelectasis, possibly minimal pneumonia in both lower lobes, ABG with mildly decreased pO2, COVID negative, CT of the brain with no significant interval change since 2019 with disproportionate moderate enlargement posterior horn of the right lateral ventricle with mild adjacent right occipital encephalomalacia with otherwise no acute intracranial findings, 11/20/21 onset fever, added vanc and zosyn given concern also for possible UTI given growth. Sputum Cx, resp panel, urine antigens requested. #3. GPC, possibly Enterococcal UTI: Patient with notable resistance pattern on prior UCx w/ ESBL noted prior, discussed with ID and initiated on IV vanc and zosyn with final Cx pending w/ de-escalation as able, unclear if potentially some chronic colonization component as initial UA were poor sample and once catheterized sample obtained was not marked UA but suspect UCx was obtained from earlier sample of note, but given #2 and fevers despite no marked WBC elevation or L shift, added per ID recommendation. #4. Indeterminate enzymes: EKG in ED no acute evidence of ischemia, CXR w/ no acute cardiopulmonary findings have a repeat chest x-ray this a.m. with PA and lateral pending, troponin trending requested upon admission with initial 61 and repeat 56 with additional currently pending, maintained on monitor, echocardiogram requested, maintain on baby aspirin. ECHO w/ EF 55 to 60%, normal LV systolic function, grade 1 diastolic dysfunction, right-sided pacemaker present, mild TR. #5. Right foot and ankle pain, suspected sprain with recent fall: Plain film of the right foot and ankle with no acute findings but does have chronic issues including spurs, duplex ultrasound obtained to be cautious given possible transient calf discomfort and noted to be negative. Given significant discomfort and difficulty potentially with bearing weight as well as family concern did discuss case with podiatry who will evaluate patient #6. Hypertension: Continue home regimen including ramipril, amlodipine with hold parameters as needed, PRN hydralazine. #7. Hyperlipidemia: We will continue patient on statin therapy. #8. Tachybradycardia syndrome: Status post pacemaker placement, encourage continued outpatient follow-up with cardiology as previously arranged. #9. PAF: Status post pacemaker, not anticoagulated and not on any rate or rhythm agent #10. Seizure disorder: We will continue patient significant antiepileptic regimen including Vimpat, Synera known, Depakote. #11. Anxiety and depression: D/C mirtazapine regimen w/ notable improvement in fatigue and lethargy, will plan to discontinue upon transition to SNF. #12. Diabetes mellitus type II: With neuropathy hold oral home regimen, ADA diet, accu checks w/ ISS, continue patient home pregabalin regimen. #13. Obesity: Weight loss and lifestyle changes encouraged. #14. DVT prophylaxis: SCDs, Lovenox. #15. CODE STATUS: Full code. Patient's who is present is her healthcare power of senior attorney, no living will in place. Charges/Coding Visit Charges Inpatient E&M: 41016 Subs Hosp L3
[2021-11-21] MEDS: Insulin Lispro 100 UNIT/ML INSULN.PEN SC ×3 (06:18→21:32)
[2021-11-21 06:25] LABS: Bedside Glucose 164 mg/dL (74-106)
--- NOTE | 2021-11-21 09:19 | CASEMGMT ---
Social Work Note ROMI received message from Megan with TCU stating pre-cert was obtained. Pt is on a medication called Kerendia (finerenone) and pt's family will need to bring in medication or pt will not be allowed to take medication while on TCU. ROMI will discuss with pt's family. Plan: TCU Filomena Garza CAB SUPERVISOR, CLAIMS ACCOUNT SPECIALIST
--- NOTE | 2021-11-21 10:03 | NURSING ---
Called about Kerendia medication will need for TCU. He is to bring it in later today he said.
[2021-11-21] MEDS: Ramipril 10 MG Capsule PO (10:04)
[2021-11-21] MEDS: Divalproex (ER) 500 MG Tablet PO (10:04)
[2021-11-21] MEDS: Tolterodine Tartrate 2 MG CAP.SA PO (10:04)
[2021-11-21] MEDS: Enoxaparin 40 MG/0.4 ML Syringe SC (10:05)
[2021-11-21] MEDS: amLODIPine 5 MG Tablet PO (10:05)
[2021-11-21] MEDS: Pregabalin 50 MG Capsule 100 MG PO ×2 (10:08→21:34)
[2021-11-21] MEDS: Aspirin 81 MG TAB.CHEW PO (10:08)
[2021-11-21] MEDS: Lacosamide 50 MG Tablet 100 MG PO (11:16)
[2021-11-21] MEDS: Azithromycin 250 MG Tablet 500 MG PO (11:16)
[2021-11-21 11:31] LABS: Bedside Glucose 184 mg/dL (74-106)
[2021-11-21] MEDS: Ceftriaxone 1 GM/50 ML BAG IV (12:09)
--- NOTE | 2021-11-21 12:32 | CASEMGMT ---
DUSTIN CM in to pt room per request. Pt and dtr at bedside, pt sitting up in chair. Pt dtr questions MEADOWS form. Explained MEADOWS form to her and all in room. They verbalized understanding and deny further questions.
--- NOTE | 2021-11-21 13:09 | CASEMGMT ---
Social Work Note Pt to discharge to TCU tomorrow. ROMI placed a call to Megan with TCU and updated her. Pt is able to admit to TCU tomorrow. SW in to speak with pt, pt's , and pt's daughter. ROMI updated pt, pt's and pt's daughter that pre-cert for TCU has been obtained and pt will discharge to TCU tomorrow. ROMI also spoke with pt's regarding the medication Kerendia. Pt's confirms he brought in the medication. RN also confirms. ROMI placed Green sheet on chart. Plan: TCU tomorrow Filomena Garza CHECKER AND PACKER, CONSULTANT DIETITIAN
[2021-11-21 14:10] LABS: Absolute Lymphocyte Count 2.24 X10^3/uL (0.83-4.51); Absolute Neutrophil Count 4.1 X10^3/uL (2.0-7.7); Basophil# 0.01 X10^3/uL; Basophil% 0.1 % (0-1); Eosinophil# 0.05 X10^3/uL; Eosinophils% 0.7 % (0-5); Hematocrit 31.5 % (37-47); Hemoglobin 10.4 g/dL (12.0-15.0); Lymphocyte # 2.24 X10^3/ul (0.83-4.51); Lymphocyte % 32.2 % (19-41); Mean Corpuscular Hgb 29.2 pg (27.0-32.0); Mean Corpuscular Volume 88.5 fL (81-99); Monocyte# 0.58 X10^3/uL; Monocyte% 8.3 % (0-10); NRBC Flagged by Analyzer 0 % (0-5); Neutrophil # 4.05 X10^3/uL (2.7-7.7); Neutrophil % 58.3 % (47-70); Platelet Count 148 K/mm3 (150-450); RBC Distribution Width CV 14.5 % (11.6-14.6); RBC Distribution Width SD 46.6 fl (35.1-43.9); Red Blood Count 3.56 M/mm3 (4.2-5.4)
[2021-11-21 14:20] LABS: Anion Gap 1 (5-15); BUN 13 mg/dL (7-18); BUN/Creat Ratio 16.9 RATIO (10-20); Calcium,Total 8.6 mg/dL (8.5-10.1); Chloride 106 mmol/L (98-107); Creatinine, Serum 0.77 mg/dL (0.55-1.02); EST Glomerular Filtration Rate 79 mL/min (>60); Est Glom Filt Rate - Afr Amer 95 mL/min (>60); Estimated Creatinine Clearance 41.99 ml/min; Glucose 211 mg/dL (74-106); Potassium 3.9 mmol/L (3.5-5.1); Sodium Level 139 mmol/L (136-145)
--- NOTE | 2021-11-21 14:29 | VDLE_ITS ---
Reason For Study: Pain RIGHT GSV is normal. CFV is compressible, spontaneous, phasic, competent and demonstrates normal augmentation. FV is compressible, spontaneous, phasic, competent and demonstrates normal augmentation. POP V is compressible, spontaneous, phasic, competent and demonstrates normal augmentation. T/P Trunk is compressible. PTV is compressible. RT PerV is compressible. Procedure This is a venous duplex using B-mode, color flow and spectral Doppler. Exam performed portable in patient room. A preliminary report was called and/or faxed to [facility]. VL/Venous Duplex US, Unilateral Interpretation Summary There is no evidence of right lower extremity deep vein thrombosis. Right great saphenous vein appears patent and compressible segmentally. Ordering Physician: Cortney Akers Referring Physician: Hannah Riggs M.D. Performed By: Filomena Limon RVT
--- NOTE | 2021-11-21 14:40 | PHA.PHARE_ITS ---
Consult Pharmacy has been consulted to manage selected antiobiotic: Vancomycin Type of Consult: New start Labs: Sodium 139 mmol/L (136-145) 11/21/21 14:00 Potassium 3.9 mmol/L (3.5-5.1) 11/21/21 14:00 Chloride 106 mmol/L (98-107) 11/21/21 14:00 Carbon Dioxide 32.0 mmol/L (21.0-32.0) 11/21/21 14:00 Anion Gap 1 (5-15) L 11/21/21 14:00 BUN 13 mg/dL (7-18) 11/21/21 14:00 Creatinine 0.77 mg/dL (0.55-1.02) 11/21/21 14:00 Est GFR (MDRD) Af Amer 95 mL/min (>60) 11/21/21 14:00 Est GFR (MDRD) Non-Af 79 mL/min (>60) 11/21/21 14:00 BUN/Creatinine Ratio 16.9 RATIO (10-20) 11/21/21 14:00 Glucose 211 mg/dL (74-106) H 11/21/21 14:00 Microbiology: Microbiology 11/20/21 16:34 Urine, Catheterized Urine Culture - Preliminary GPC Poss Enterococcus sp 11/19/21 18:05 Nasal Secretion SARS-CoV-2 Antigen (Rapid) - Final Weight used for dosin.3 kg Estimated Creatinine Clearance: 62.7ML/MIN Goal Trough: 15-20 mcg/mL Pharmacy Plan for Drug Dosing: Give initial loading dose (25mg/kg) of 2000mg IV x1, then continue with 750mg IV q12h per [facility] dosing protocol. Will order a trough to be drawn before the 4th total dose. The patient's CrCl of 62.7ml/min was calculated using an adjusted body weight of 59.8kg. Pharmacy Service will continue to monitor and adjust dosing as required. Follow-Up Labs: Trough Vancomycin Labs to be done on [date and time ordered]: 11/23/21 00:30
--- NOTE | 2021-11-21 17:11 | CON.PCM_ITS ---
Assessment & Plan Assessment/Plan (1) Debility: (2) Right foot pain: (3) Right ankle pain: (4) Walking difficulty due to ankle and foot: (5) Right ankle sprain: (6) Contusion of bone: PLAN: I reviewed and discussed her case. Chart review was also performed. Her differential diagnoses include ankle sprain, ankle contusion, even bone contusion versus hairline fracture of the talus of the right lower extremity. Diagnostic data was reviewed including 3 nonweightbearing right foot x-rays in 3 nonweightbearing right ankle x-rays without acute fracture, dislocation or diastases. The ankle mortise is well aligned in a rectus position. There is vessel calcification noted along the posterior tibial artery location. Venous Dopplers negative anastomosis. Noted she did have bacterial growth on urinalysis. She does not have leukocytosis. Questionable abnormal chest x-ray findings. Her other consultations and complicated medical history are noted as well. It is noted she was started on antibiotics. Her cardiac history is noted as well as her seizure history. Some of her medications were adjusted and this has improved her cognition and ability to participate in the exam. It is noted she is in the process of getting approved to go to rehabilitation in transitional care unit. This may happen over the weekend. I recommend weightbearing as tolerated in a cam walker boot; this was ordered. If this is still painful I recommend she goes to partial weightbearing as tolerated with the use of an assistive device. I also recommend Bin wrap application and periodic elevation for edema management. To progress activity only as tolerated under the management of therapist. To [facility]-up with the [facility] in 3 to 4 weeks. Thank you for the consultation. Please do not hesitate to call if you have any questions. Marcie Garcia DPM, FACFAS [facility] [phone] HPI Consult Data Date of Consult: 11/21/21 HPI Narrative Reason for Consultation: Right foot and ankle pain HPI Narrative: HERMINIA CARDONA, is a 71 F who was seen bedside for right foot and ankle pain. She was admitted previously status post fall and inability to get up even with family assistance. Her family reports she has had progressive decline in function and fatigue over the past several months. She does not recall her mechanism of injury. The patient as well as her deny hearing a pop or snap at the time of injury. She has pain exacerbation with weightbearing activities. She denies rest paresthesias or known neuropathy. She denies prior claudication however it is clear she does not ambulate a significant degree. She ambulates with assistance in a minimal manner while at home. [facility] Medical History (Updated 11/21/21 @ 17:[address] Marcie Garcia, RISHI) Atrial fibrillation Breakthrough seizure Chronic kidney disease (CKD) Dysuria Essential hypertension Former smoker HLD (hyperlipidemia) Hypertension Hypertensive emergency without congestive heart failure Hypertriglyceridemia Junctional rhythm Kidney disease Obesity Pacemaker Paroxysmal atrial fibrillation Seizure Seizures Septic shock Tachy-maurizio syndrome Type 2 diabetes mellitus Vaginal bleeding Home Medications simvastatin 40 mg PO QHS 04/08/17 [History Last Taken 11/18/21] oxybutynin chloride 5 mg PO QHS 05/20/17 [History Last Taken 11/18/21] amlodipine 5 mg PO DAILY 10/06/17 [History Last Taken 11/18/21] ramipril 10 mg capsule 10 mg PO DAILY #90 cap 01/17/21 [Rx Last Taken 11/18/21] alendronate 70 mg PO SA 11/19/21 [History Last Taken 11/15/21] divalproex [Depakote ER] 1,000 mg PO QHS 11/19/21 [History Last Taken 11/18/21] divalproex [Depakote ER] 500 mg PO DAILY 11/19/21 [History Last Taken 11/19/21] finerenone 20 mg PO DAILY 11/19/21 [History Last Taken 11/18/21] lacosamide 150 mg PO QHS 11/19/21 [History Last Taken 11/18/21] lacosamide [Vimpat] 100 mg PO DAILY 11/19/21 [History Last Taken 11/19/21] metformin 1,000 mg PO BID 11/19/21 [History Last Taken 11/18/21] mirtazapine 45 mg PO QHS 11/19/21 [History Last Taken 11/18/21] pregabalin 100 mg PO BID 11/19/21 [History Last Taken 11/18/21] sitagliptin [Januvia] 50 mg PO DAILY 11/19/21 [History Last Taken 11/18/21] Allergy/AdvReac Type Severity Reaction Status Date / Time amoxicillin [From Augmentin] Allergy Rash Verified 08/21/21 13:01 clavulanic acid Allergy Rash Verified 08/21/21 13:01 [From Augmentin] escitalopram [From Lexapro] Allergy Rash Verified 08/21/21 13:01 shellfish derived Allergy Unknown Verified 08/21/21 13:01 hydroxychloroquine AdvReac Severe Unknown Verified 08/21/21 13:01 [From Plaquenil] perfume AdvReac Unknown Verified 08/21/21 13:01 pineapple AdvReac Rash Verified 08/21/21 13:01 quinine AdvReac Unknown Verified 08/21/21 13:01 strawberry AdvReac Rash Verified 08/21/21 13:01 Sulfa (Sulfonamide AdvReac Unknown Verified 08/21/21 13:01 Antibiotics) DUST AdvReac Unknown Uncoded 08/21/21 13:01 Family History Brother Heart disease Hx CABG Hypertension Diabetes Mother Hypertension Surgical History History of breast surgery History of hysterectomy History of permanent cardiac pacemaker placement (11/15/17) Social History (Updated 11/19/21 @ 18:[address] Cortney Akers MD) household members: spouse Smoking Status: Never smoker alcohol intake: never substance use type: does not use caffeine: No what type of physical activity do you participate in: none seatbelt use: always do you feel safe at home: Yes ROS Constitutional Constitutional: Reports fatigue and frequent falls; Denies chills Cardiovascular Cardiovascular: Denies claudication or cold extremities Gastrointestinal Gastrointestinal: Denies nausea Musculoskeletal Musculoskeletal: Reports joint swelling and tremors; Denies numbness Integumentary Integumentary: Reports other; Denies wounds Neurologic Neurologic: Reports lack of coordination Physical Exam Const alert and oriented x3 General Appearance: cooperative HEENT normocephalic Extremity Extremity Narrative: No calf tenderness bilateral Diminished pulses; 1 out of 4 DP right lower extremity and the left and 2 out of 4 DP left Muscle wasting noted Able to perform active range of motion of digits and ankles in all directions without pain No pain on palpation to medial or lateral malleolus, fifth metatarsal base, navicular tuberosity, ankle syndesmosis, midfoot, metatarsals or metatarsophalangeal joints or cuboid Pain to palpate anterior central ankle and also to the dorsal talus No pain laxity or crepitus with anterior drawer test No pain with passive manipulation of the ankle in the sagittal plane or frontal plane range of motion General Extremity: edema and no tenderness to palpation of joints or extremities; Negative for cyanosis Skin Skin Narrative: no purulence, no streaking, no odor, no infection ulcer bilateral lower extremity. Evidence of recently debrided plantar lateral right foot callus without signs of infection or ulceration. Nails are well trimmed bilateral 1, 2, 3, 4, 5 and also appear to be thickened dystrophic with subungual debris. She has no interdigital maceration bilateral. There is no ecchymosis erythema or streaking. Neuro Neuro Narrative: Epicritic sensation is intact to light touch to bilateral lower extremities including the digits in all foot and ankle dermatomes bilateral Psych cooperative and affect normal Lab / Micro Data Result Diagrams: 11/21/21 14:00 11/21/21 14:00 Labs: Laboratory Results - last 24 hr 11/20/21 16:59: POC Glucose 201 H 11/20/21 22:28: POC Glucose 179 H 11/21/21 06:17: POC Glucose 164 H 11/21/21 11:20: POC Glucose 184 H 11/21/21 14:00: WBC 7.0, RBC 3.56 L, Hgb 10.4 L, Hct 31.5 L, MCV 88.5, MCH 29.2, MCHC 33.0, RDW Std Deviation 46.6 H, RDW Coeff of Ernesto 14.5, Plt Count 148 L, MPV 10.0, Immature Gran % (Auto) 0.400, Neut % (Auto) 58.3, Lymph % (Auto) 32.2, [place] % (Auto) 8.3, Eos % (Auto) 0.7, Baso % (Auto) 0.1, Absolute Neuts (auto) 4.1, Absolute Lymphs (auto) 2.24, Nucleated RBC % 0 11/21/21 14:00: Sodium 139, Potassium 3.9, Chloride 106, Carbon Dioxide 32.0, Anion Gap 1 L, BUN 13, Creatinine 0.77, Estim Creat Clear Calc 41.99, Est GFR ( MDRD) Af Amer 95, Est GFR (MDRD) Non-Af 79, BUN/Creatinine Ratio 16.9, Glucose 211 H, Calcium 8.6 Micro: Microbiology 11/20/21 16:34 Urine, Catheterized Urine Culture - Preliminary GPC Poss Enterococcus sp Radiology Impression Chest X-Ray 11/20/21 05:55 IMPRESSION: 1. Poor inspiratory effort. 2. Mild to moderate cardiomegaly with borderline heart failure. 3. Dual-lead pacemaker with distal leads in expected positions. 4. Mild prominence of bronchovascular markings in both lower lobes with concurrent interstitial changes--cannot exclude minimal pneumonia is in both lower lobes. 5. Mild left lower lobe atelectasis. 6. No evidence of other abnormalities. . Electronically Signed: Juventino Crowell MD at 17:14 EDT , Venous Doppler Study 11/21/21 14:29 Interpretation Summary There is no evidence of right lower extremity deep vein thrombosis. Right great saphenous vein appears patent and compressible segmentally. Ordering Physician: Cortney Akers Referring Physician: Hannah Riggs M.D. Performed By: Filomena Limon RVT
[2021-11-21 17:26] LABS: Bedside Glucose 138 mg/dL (74-106)
[2021-11-21] MEDS: Lacosamide 50 MG Tablet 150 MG PO (21:30)
[2021-11-21] MEDS: MELATONIN 3 MG TABLET PO (21:30)
[2021-11-21] MEDS: Divalproex (ER) 500 MG Tablet 1000 MG PO (21:31)
[2021-11-21] MEDS: Atorvastatin Calcium 20 MG Tablet PO (21:31)
[2021-11-21 23:16] LABS: Bedside Glucose 202 mg/dL (74-106)
[2021-11-22 03:32] VITALS: BP 158/78; PULSE 60; RESP 18; TEMP 36.8; O2SAT 95
[2021-11-22] MEDS: Insulin Lispro 100 UNIT/ML INSULN.PEN SC ×2 (06:30→14:03)
[2021-11-22 06:32] LABS: Absolute Lymphocyte Count 2.36 X10^3/uL (0.83-4.51); Absolute Neutrophil Count 2.6 X10^3/uL (2.0-7.7); Basophil# 0.02 X10^3/uL; Basophil% 0.4 % (0-1); Eosinophil# 0.08 X10^3/uL; Eosinophils% 1.4 % (0-5); Hematocrit 33.3 % (37-47); Lymphocyte # 2.36 X10^3/ul (0.83-4.51); Lymphocyte % 41.7 % (19-41); Mean Corpuscular Hgb 29.3 pg (27.0-32.0); Mean Corpuscular Volume 88.8 fL (81-99); Mean Platelet Vol. 10.4 fl (6.2-12.0); Monocyte# 0.59 X10^3/uL; Monocyte% 10.4 % (0-10); NRBC Flagged by Analyzer 0 % (0-5); Neutrophil # 2.58 X10^3/uL (2.7-7.7); Neutrophil % 45.6 % (47-70); Platelet Count 155 K/mm3 (150-450); RBC Distribution Width CV 14.3 % (11.6-14.6); Red Blood Count 3.75 M/mm3 (4.2-5.4); White Blood Count 5.7 K/mm3 (4.4-11.0)
[2021-11-22 06:36] LABS: Bedside Glucose 187 mg/dL (74-106)
[2021-11-22 07:14] LABS: ALB/GLOB Ratio 0.4 RATIO (0.9-2.4); AST(SGOT) 37 U/L (15-37); Alanine Aminotransfer ALT/SGPT < 6 U/L (13-56); Albumin, Serum 2.3 g/dL (3.2-5.0); Alkaline Phosphatase 60 U/L (45-117); Anion Gap 3 (5-15); BUN 12 mg/dL (7-18); BUN/Creat Ratio 24.5 RATIO (10-20); Calcium,Total 8.7 mg/dL (8.5-10.1); Chloride 107 mmol/L (98-107); Creatinine, Serum 0.49 mg/dL (0.55-1.02); EST Glomerular Filtration Rate 133 mL/min (>60); Est Glom Filt Rate - Afr Amer 161 mL/min (>60); Estimated Creatinine Clearance 41.99 ml/min; Globulin 5.5 g/dL (2.2-4.2); Glucose 159 mg/dL (74-106); Potassium 3.7 mmol/L (3.5-5.1); Protein, Total 7.8 g/dL (6.4-8.2); Sodium Level 139 mmol/L (136-145)
[2021-11-22 07:28] VITALS: O2SAT 94
[2021-11-22 08:46] VITALS: BP 146/69; PULSE 60; RESP 18; TEMP 37.2; O2SAT 94
[2021-11-22] MEDS: Aspirin 81 MG TAB.CHEW PO (08:49)
--- NOTE | 2021-11-22 09:30 | PCM.TXEXTCAR ---
Diet 11/19/21 20:07 Diet: Consistent Carb - Calorie Controlled Food consistency:: Regular Liquid Consistency:: Regular/Thin Is pt able to select menu?: Yes How many daily calories?: 1800 calorie DISCHARGE DIAGNOSES: #1. Failure to thrive adult with debility, weakness and frequent falls #2. Acute Hypoxia, potentially Multifactorial, including CAP as well as sedation medications (AEDs) #3. Enterococcal UTI #4. Indeterminate enzymes #5. Right foot and ankle pain with sprain with recent fall #6. Hypertension #7. Hyperlipidemia #8. Tachybradycardia syndrome #9. PAF #10. Seizure disorder #11. Anxiety and depression #12. Diabetes mellitus type II #13. Obesity Routine Orders/Code Status Enema Type: Fleetz Enema Frequency: Daily PRN Suppository Type: Dulcolax 10mg Suppository Frequency: Daily PRN Keep PO Greater than or Equal to (%): 92 Routine Lab Work: - (Repeat CBC, CMP in 1 week.) Code Status: Full Code Suggestions for Active Care Change Position every (hours): 2 Hours to sit in a chair: 3 Times a day to sit in chair: 6 Therapies Weight Bearing: Weight bearing as tolerated Extremity Affected:: Right Lower Physical Therapy: Eval and Treat Occupational Therapy: Eval and Treat Problem/Diagnosis (1) Debility: Status: Acute (2) Right foot pain: Status: Acute (3) Right ankle pain: Status: Acute (4) Walking difficulty due to ankle and foot: Status: Acute (5) Right ankle sprain: Status: Acute (6) Contusion of bone: Status: Acute Allergies/Procedures Done in Hospital Allergies amoxicillin [From Augmentin] Allergy (Verified 08/21/21 13:01) Rash RASH ON FACE clavulanic acid [From Augmentin] Allergy (Verified 08/21/21 13:01) Rash RASH ON FACE escitalopram [From Lexapro] Allergy (Verified 08/21/21 13:01) Rash shellfish derived Allergy (Verified 08/21/21 13:01) Unknown hydroxychloroquine [From Plaquenil] Adverse Reaction (Severe, Verified 08/21/21 13:01) Unknown perfume Adverse Reaction (Verified 08/21/21 13:01) Unknown pineapple Adverse Reaction (Verified 08/21/21 13:01) Rash quinine Adverse Reaction (Verified 08/21/21 13:01) Unknown strawberry Adverse Reaction (Verified 08/21/21 13:01) Rash Sulfa (Sulfonamide Antibiotics) Adverse Reaction (Verified 08/21/21 13:01) Unknown DUST Adverse Reaction (Uncoded 08/21/21 13:01) Unknown Procedures: 2-D Echocardiogram and EKG Type of Care/Length of Stay Estimated LOS: Convalescent Care Less Than 30 days Type of Care Needed: Skilled Rehab Potential: Fair Prognosis: Fair Additional Orders/Day of Discharge Additional Orders: (1) Continue BIN wrap RLE, elevation above heart seated and in bed, boot when ambulation and WBAT with strain/sprain, (2) HOB with aspiration precautions, (3) Fall precautions, (4) Encourage OOB to chair with ALL meals, (5) Continue IS 10x/hr 7a-7p, (6) Will need to continue to monitor anxiety/depression as evening mirtazapine discontinued as was contributing to chronic lethargy/fatigue but per discussions with patient defer addition and will have re-evaluation. Day of Discharge: 11/22/21 Discharge Plan Admission Admit Date/Time: 11/21/21 16:36 Primary Reason for Your Visit: FTT adult, Enterococcal UTI, ? PNA w/ Hypoxia Attending Provider: Cortney Akers Primary Care Provider: Hannah Riggs Consulting Providers: Marcie Garcia Instructions Additional Instructions / Restrictions: PODIATRY RECOMMENDATIONS: Weight-bear as tolerated right lower extremity with Cam walker and assistive device Elevate right lower extremity Wear Bin wrap right lower extremity Discharge Orders/Prescriptions Prescriptions: No Action simvastatin 40 MG tablet 40 mg PO QHS RF: 0 oxybutynin chloride 5 MG tablet 5 mg PO QHS RF: 0 amlodipine 5 MG tablet 5 mg PO DAILY RF: 0 alendronate 70 mg Tablet 70 mg PO SA RF: 0 divalproex [Depakote ER] 500 mg Tablet Extended Release 24 Hr 500 mg PO DAILY RF: 0 divalproex [Depakote ER] 500 mg Tablet Extended Release 24 Hr 1,000 mg PO QHS RF: 0 pregabalin 100 mg Capsule 100 mg PO BID RF: 0 Januvia 50 mg Tablet 50 mg PO DAILY RF: 0 lacosamide 150 mg Tablet 150 mg PO QHS RF: 0 finerenone 20 mg Tablet 20 mg PO DAILY RF: 0 mirtazapine 45 mg tablet 45 mg PO QHS RF: 0 metformin 500 mg tablet extended release 24 hr 1,000 mg PO BID RF: 0 lacosamide [Vimpat] 100 mg tablet 100 mg PO DAILY RF: 0 ramipril 10 mg capsule 10 mg PO DAILY Qty: 90 RF: 3 Referrals / Follow Up: Mehul Pollock MD [STAFF PHYSICIAN] - (Follow-up as previously arranged.) Manjinder Turpin MD [NON-STAFF] - (Follow-up with your Neurologist as previously arranged.) Marcie Garcia DPM [STAFF PHYSICIAN] - Within 1 Month Hannah Riggs DO [Primary Care Provider] - (Follow-up within 1-2 days of home discharge.) Disposition Disposition (needs filled in before D/C Order can be placed): [facility] Facility
--- NOTE | 2021-11-22 09:46 | PCM.DC.SUM ---
Providers Date of Admission: 11/21/21 Primary Care Physician: Dr. Hannah Riggs, Consultations 11/21/21 14:30 Consult: Podiatry Routine Consulting Provider: Marcie Garcia Reason for Consult: R foot and ankle pain, edema x 2 weeks EMERGENT Consult: No MD Notified: Yes Date Notified: 11/21/21 Time Notified: 14:30 Method of Notification: called. Reason For Visit: FTT ADULT Diagnosis Discharge Diagnosis (1) Debility: Status: Acute Code(s): R53.81 - Other malaise (2) Right foot pain: Status: Acute Code(s): M79.671 - Pain in right foot (3) Right ankle pain: Status: Acute Code(s): M25.571 - Pain in right ankle and joints of right foot (4) Walking difficulty due to ankle and foot: Status: Acute Code(s): R26.2 - Difficulty in walking, not elsewhere classified (5) Right ankle sprain: Status: Acute Code(s): S93.401A - Sprain of unspecified ligament of right ankle, initial encounter (6) Contusion of bone: Status: Acute Code(s): T14.8XXA - Other injury of unspecified body region, initial encounter Medications at Discharge Home Medications simvastatin 40 mg PO QHS 04/08/17 oxybutynin chloride 5 mg PO QHS 05/20/17 amlodipine 5 mg PO DAILY 10/06/17 ramipril 10 mg capsule 10 mg PO DAILY #90 cap 01/17/21 alendronate 70 mg PO SA 11/19/21 divalproex [Depakote ER] 1,000 mg PO QHS 11/19/21 divalproex [Depakote ER] 500 mg PO DAILY 11/19/21 finerenone 20 mg PO DAILY 11/19/21 lacosamide 150 mg PO QHS 11/19/21 lacosamide [Vimpat] 100 mg PO DAILY 11/19/21 metformin 1,000 mg PO BID 11/19/21 mirtazapine 45 mg PO QHS 11/19/21 pregabalin 100 mg PO BID 11/19/21 sitagliptin [Januvia] 50 mg PO DAILY 11/19/21 Hospital Course Operations None Procedures 2-D Echocardiogram and EKG Summary of Care Provided Minutes Spent on Discharge: 35 Hospital Course: Discharge Diagnoses: #1. Failure to thrive adult with debility, weakness and frequent falls #2. Acute Hypoxia, potentially Multifactorial, including CAP as well as sedation medications (AEDs) #3. Enterococcal UTI #4. Indeterminate enzymes #5. Right foot and ankle pain with sprain with recent fall #6. Hypertension #7. Hyperlipidemia #8. Tachybradycardia syndrome #9. PAF #10. Seizure disorder #11. Anxiety and depression #12. Diabetes mellitus type II #13. Obesity Discharge Summary: The patient is a 71 y/o F w/ PMHx: Anxiety and Depression, Seizure disorder, Tachy-maurizio syndrome s/p pacemaker, HTN, HLD, PAF, Diabetes mellitus type II with neuropathy, Obesity who presented to the [facility] ED on 11/19/21 with history of near fall at home, unable to even get up with assist with also her son with progressive decline over the last several months prompting family to bring her in secondary to debility and need for SNF. She notes primarily pain on the R side specifically R ankle and knee from being twisted. Patient has had progressive decline over the last year, worsened over the last several months, admitted to medical surgical floor, maintained on fall and aspiration precautions, therapies recommended SNF which was arranged. Patient with hypoxia in the ED felt multifactorial, including ? CAP as well as sedation medications (AEDs) noted incidentally be hypoxic with oxygenation 86% on room air with improvement to 94% on 2 L nasal cannula w/ wean, was unclear if secondary to significant sedated regimen with her seizure medications, chest x-ray with no acute findings w/ repeat PA and lateral 11/20/21 following overnight hydration with mild to moderate cardiomegaly with borderline heart failure, pacer present, mild prominence of bronchovascular markings both lower lobes with concurrent interstitial changes, mild left lower lobe atelectasis, possibly minimal pneumonia in both lower lobes, ABG with mildly decreased pO2, COVID negative, CT of the brain with no significant interval change since 2019 with disproportionate moderate enlargement posterior horn of the right lateral ventricle with mild adjacent right occipital encephalomalacia with otherwise no acute intracranial findings, 11/20/21 onset fever, added vanc and zosyn given concern also for possible UTI given growth. Resp panel negative, urine antigens negative. UCx w/ > 100,000 Enterococcal UTI therefore abx transitioned to levaquin per susceptibilities to be completed in TCU. During admission mildly elevated indeterminate enzymes w/ EKG w/ acute evidence of ischemia,initial 61 and repeat 56, maintained on monitor without event, echocardiogram requested, maintain on baby aspirin. ECHO w/ EF 55 to 60%, normal LV systolic function, grade 1 diastolic dysfunction, right-sided pacemaker present, mild TR. Plain film of the right foot and ankle with no acute findings but does have chronic issues including spurs, duplex ultrasound obtained to be cautious given possible transient calf discomfort and noted to be negative, Podiatry consulted and agreed ankle sprain with BIN wrap, elevation, boot w/ ambulation initiated. Given improvement, patient discharged to TCU in stable condition with continue antibiotic therapies and recommendations per podiatry with follow-up with PCP, podiatry, cardiology as well as neurology requested. Discharge Time: > 35 Minutes DAY OF DISCHARGE PROGRESS NOTE: Subjective: Patient without acute event overnight per self and nursing report. Patient discomfort to the right ankle lessening with Bin wrap in place in boot with ambulation per podiatry recommendation. Discussed results of culture with plan transition to oral Levaquin. Patient denies fever, chills, nausea, emesis, abdominal pain, chest pain or dyspnea. Patient agreeable to discharge to skilled for ongoing therapies. 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 Again discussed discontinuation of her mirtazapine which had been likely contributing to notable sedation during the day and at this time preference to hold off on addition of an alternate regimen with continued close monitoring. Objective: T 98.9, heart rate 60, BP 146/69, respiratory rate 18, 94% on room air. Physical Examination: General: Awake, alert, oriented to x3, notes feeling well, discussed again need for boot with right ankle sprain with ambulation, she notes discomfort lasting. Skin: Normal color, normal turgor, no icterus, no cyanosis. HEENT: AT/NC, EOMI, PERRLA, MMM. Lungs: Mildly diminished, greater bases, appropriate effort, no rales, ronchi or wheezing. Heart: Regular rate and rhythm; no gallop, rub audible. Abdomen: Soft, obese, NTTP, ND, distant normal BS. Extremities: No cyanosis, clubbing, right ankle tenderness although lessened than initial presentation, wrap in place. Neurological: Patient awake, alert, oriented as noted, cognitive function improved today, more interactive and less fatigued appearing, do suspect we are likely at patient's baseline, pupils equally reactive to light and accommodation, cranial nerves grossly normal, moving all 4 extremities, no focal deficits, strength improving, moderately global decreased Psychiatric: Affect appears normal, reports ready for breakfast, no acute evidence of depressive or anxiety feelings. Assessment and Plan: Please see hospital summary above. Weight / BMI Weight Weight: 163 lb 2.273 oz Body Mass Index (BMI) 29.9 ABG / Lab / Microbiology Data Result Diagrams: 11/22/21 05:52 11/22/21 05:52 Laboratory: Laboratory Results - last 24 hr 11/21/21 11:20: POC Glucose 184 H 11/21/21 14:00: WBC 7.0, RBC 3.56 L, Hgb 10.4 L, Hct 31.5 L, MCV 88.5, MCH 29.2, MCHC 33.0, RDW Std Deviation 46.6 H, RDW Coeff of Ernesto 14.5, Plt Count 148 L, MPV 10.0, Immature Gran % (Auto) 0.400, Neut % (Auto) 58.3, Lymph % (Auto) 32.2, [place] % (Auto) 8.3, Eos % (Auto) 0.7, Baso % (Auto) 0.1, Absolute Neuts (auto) 4.1, Absolute Lymphs (auto) 2.24, Nucleated RBC % 0 11/21/21 14:00: Sodium 139, Potassium 3.9, Chloride 106, Carbon Dioxide 32.0, Anion Gap 1 L, BUN 13, Creatinine 0.77, Estim Creat Clear Calc 41.99, Est GFR (MDRD) Af Amer 95, Est GFR (MDRD) Non-Af 79, BUN/Creatinine Ratio 16.9, Glucose 211 H, Calcium 8.6 11/21/21 16:47: POC Glucose 138 H 11/21/21 21:16: POC Glucose 202 H 11/22/21 05:52: WBC 5.7, RBC 3.75 L, Hgb 11.0 L, Hct 33.3 L, MCV 88.8, MCH 29.3, MCHC 33.0, RDW Std Deviation 46.0 H, RDW Coeff of Ernesto 14.3, Plt Count 155, MPV 10.4, Immature Gran % (Auto) 0.500, Neut % (Auto) 45.6 L, Lymph % (Auto) 41.7 H, [place] % (Auto) 10.4 H, Eos % (Auto) 1.4, Baso % (Auto) 0.4, Absolute Neuts (auto) 2.6, Absolute Lymphs (auto) 2.36, Nucleated RBC % 0 11/22/21 05:52: Sodium 139, Potassium 3.7, Chloride 107, Carbon Dioxide 29.0, Anion Gap 3 L, BUN 12, Creatinine 0.49 L, Estim Creat Clear Calc 41.99, Est GFR (MDRD) Af Amer 161, Est GFR (MDRD) Non-Af 133, BUN/Creatinine Ratio 24.5 H, Glucose 159 H, Calcium 8.7, Total Bilirubin 0.30, AST 37, ALT < 6 L, Alkaline Phosphatase 60, Total Protein 7.8, Albumin 2.3 L, Globulin 5.5 H, Albumin/Globulin Ratio 0.4 L 11/22/21 06:29: POC Glucose 187 H Microbiology: Microbiology 11/20/21 16:34 Urine, Catheterized Urine Culture - Final Enterococcus faecalis 11/21/21 19:12 Mucosa - Nose Respiratory Panel (PCR) - Final 11/21/21 12:50 Urine, Clean Catch Legionella Antigen - Final 11/21/21 12:50 Urine, Clean Catch Streptococcus pneumoniae Antigen (M - Final 11/19/21 18:05 Nasal Secretion SARS-CoV-2 Antigen (Rapid) - Final Radiography Diagnostic Testing: Radiology Impression Venous Doppler Study 11/21/21 14:29 Interpretation Summary There is no evidence of right lower extremity deep vein thrombosis. Right great saphenous vein appears patent and compressible segmentally. Ordering Physician: Cortney Akers Referring Physician: Hannah Riggs M.D. Performed By: Filomena Limon RVT Meaningful Use Info Meaningful Use Diagnoses (Choose all that apply): None applicable Discharge Plan Admission Admit Date/Time: 11/21/21 16:36 Primary Reason for Your Visit: FTT adult, Enterococcal UTI, ? PNA w/ Hypoxia Attending Provider: Cortney Akers Primary Care Provider: Hannah Riggs Consulting Providers: Marcie Garcia Instructions Additional Instructions / Restrictions: PODIATRY RECOMMENDATIONS: Weight-bear as tolerated right lower extremity with Cam walker and assistive device Elevate right lower extremity Wear Bin wrap right lower extremity Discharge Orders/Prescriptions Prescriptions: No Action simvastatin 40 MG tablet 40 mg PO QHS RF: 0 oxybutynin chloride 5 MG tablet 5 mg PO QHS RF: 0 amlodipine 5 MG tablet 5 mg PO DAILY RF: 0 alendronate 70 mg Tablet 70 mg PO SA RF: 0 divalproex [Depakote ER] 500 mg Tablet Extended Release 24 Hr 500 mg PO DAILY RF: 0 divalproex [Depakote ER] 500 mg Tablet Extended Release 24 Hr 1,000 mg PO QHS RF: 0 pregabalin 100 mg Capsule 100 mg PO BID RF: 0 Januvia 50 mg Tablet 50 mg PO DAILY RF: 0 lacosamide 150 mg Tablet 150 mg PO QHS RF: 0 finerenone 20 mg Tablet 20 mg PO DAILY RF: 0 mirtazapine 45 mg tablet 45 mg PO QHS RF: 0 metformin 500 mg tablet extended release 24 hr 1,000 mg PO BID RF: 0 lacosamide [Vimpat] 100 mg tablet 100 mg PO DAILY RF: 0 ramipril 10 mg capsule 10 mg PO DAILY Qty: 90 RF: 3 Referrals / Follow Up: Mehul Pollock MD [STAFF PHYSICIAN] - (Follow-up as previously arranged.) Manjinder Turpin MD [NON-STAFF] - (Follow-up with your Neurologist as previously arranged.) Marcie Garcia, DPM [STAFF PHYSICIAN] - Within 1 Month Hannah Riggs DO [Primary Care Provider] - (Follow-up within 1-2 days of home discharge.) Disposition Disposition (needs filled in before D/C Order can be placed): [facility] Facility Charges/Coding Visit Charges Inpatient E&M: 07914 Disch Hosp
[2021-11-22] MEDS: amLODIPine 5 MG Tablet PO (10:31)
[2021-11-22] MEDS: Tolterodine Tartrate 2 MG CAP.SA PO (10:31)
[2021-11-22] MEDS: Ramipril 10 MG Capsule PO (10:31)
[2021-11-22] MEDS: Divalproex (ER) 500 MG Tablet PO (10:32)
[2021-11-22] MEDS: levoFLOXacin 500 MG Tablet PO (10:34)
[2021-11-22] MEDS: FINERENONE 20 MG TABLET PO (10:35)
[2021-11-22] MEDS: Enoxaparin 40 MG/0.4 ML Syringe SC (10:36)
[2021-11-22] MEDS: Lacosamide 50 MG Tablet 100 MG PO (10:43)
[2021-11-22] MEDS: Pregabalin 50 MG Capsule 100 MG PO (10:43)
[2021-11-22 12:16] LABS: Bedside Glucose 220 mg/dL (74-106)
[2021-11-22] MEDS: Acetaminophen 325 MG Tablet 650 MG PO (12:16)
--- NOTE | 2021-11-22 13:18 | NURSING ---
FAMILY IN ROOM AND ARE AWARE THAT PT WILL BE GOING TO TCU WHEN THEY HAVE A CLEAN ROOM
[2021-11-22 14:21] VITALS: BP 134/70; PULSE 67; RESP 18; TEMP 37; O2SAT 92
[2021-11-22 16:56] LABS: Bedside Glucose 181 mg/dL (74-106)
== END 2021-11-22 17:00 | disposition skilled nursing facility (03) | DRG 948 ==
LOC: ED 18:16 → MS3 18:27
PROVIDERS: Admitting Provider Family Medicine; Emergency Provider Emergency Medicine; PCP Internal Medicine; Visit Provider Family Medicine
DX: R53.81 Other malaise (principal); N39.0 Urinary tract infection, site not specified; I49.5 Sick sinus syndrome; R62.7 Adult failure to thrive; E11.40 Type 2 diabetes mellitus with diabetic neuropathy, unspecified; B95.2 Enterococcus as the cause of diseases classified elsewhere; D64.9 Anemia, unspecified; I48.0 Paroxysmal atrial fibrillation; G40.909 Epilepsy, unspecified, not intractable, without status epilepticus; I11.0 Hypertensive heart disease with heart failure; E78.5 Hyperlipidemia, unspecified; W18.30XA Fall on same level, unspecified, initial encounter; F41.9 Anxiety disorder, unspecified; S93.401A Sprain of unspecified ligament of right ankle, initial encounter; R26.2 Difficulty in walking, not elsewhere classified; E66.9 Obesity, unspecified; Z87.891 Personal history of nicotine dependence; Z79.84 Long term (current) use of oral hypoglycemic drugs; Z79.899 Other long term (current) drug therapy; Z95.0 Presence of cardiac pacemaker; Y93.9 Activity, unspecified; Y92.9 Unspecified place or not applicable; Z91.81 History of falling; F32.A Depression, unspecified; R09.02 Hypoxemia; Z68.29 Body mass index [BMI] 29.0-29.9, adult
CPT/HCPCS: 36415; 36600; 70450; 71045; 71046; 73564; 73610; 73630; 80048; 80053; 81001; 82803; 82962; 83735; 84100; 84145; 84439; 84443; 84484; 85025; 87077; 87086; 87088; 87186; 87449; 87633; 87811; 93005; 93306; 93971; 97163; 97166; 97530; 97535; 99251; 99285; J7030; J7040; J7050; P9612; Q9957; A4216; C8929; G0463

== ENCOUNTER 2021-11-22 16:45 | Inpatient (IN) | payer MEDICARE, SELFPAY ==
[2021-11-22 17:52] VITALS: BP 149/68; PULSE 66; RESP 16; TEMP 36.6; O2SAT 93; BMI 30.9
[2021-11-22 18:31] LABS: Bedside Glucose 152 mg/dL (74-106)
--- NOTE | 2021-11-22 18:56 | HP.PCM_ITS ---
HPI - General General Date of Admission: 11/22/21 HPI Narrative 11/19/2021 HERMINIA CARDONA, is a 71 Female who presents to [facility] with fall. Frequent falls, fell today, leg gave out. Right foot pain, pain is sharp, ice helps. X-ray right foot negative. X-ray left ankle negative. X-ray left knee shows arthritis. Unable to bear weight, cannot go home. Urine culture sent. 11/19/2021 Admit to Hospital. PT/OT for jail facility. Evaluate for hypoxia. 11/20/2021 Fever 100.1, repeat Chest X-ray, repeat Urinalysis, covid19 negative. CT brain negative for acute findings. Indeterminate troponin. 11/20/2021 Echo EF 55-60%. Normal LV systolic function. Grade 1 diastolic dysfunction. 11/21/2021 More alert, Mirtazapine stopped. Right calf pain, doppler ultrasound right lower extremity negative DVT. Vancomycin/Zosyn IV fo gram positive cocci urinary tract infection, possible pneumonia. 11/21/2021 Dr. Garcia consulted for right ankle pain. Weight bearing as tolerated right lower extremity in cam walker boot. Consider MRI right annkle if no improvement. 11/22/2021 Admit to TCU with debility, here for rehabilitation, strengthening, prior to dsicharge home with . [facility] Medical History Atrial fibrillation Breakthrough seizure Chronic kidney disease (CKD) Dysuria Essential hypertension Former smoker HLD (hyperlipidemia) Hypertension Hypertensive emergency without congestive heart failure Hypertriglyceridemia Junctional rhythm Kidney disease Obesity Pacemaker Paroxysmal atrial fibrillation Seizure Seizures Septic shock Tachy-maurizio syndrome Type 2 diabetes mellitus Vaginal bleeding Home Medications simvastatin 40 mg PO QHS 04/08/17 [History Last Taken 11/18/21] oxybutynin chloride 5 mg PO QHS 05/20/17 [History Last Taken 11/18/21] amlodipine 5 mg PO DAILY 10/06/17 [History Last Taken 11/18/21] Januvia 50 mg PO DAILY 11/19/21 [History Last Taken 11/18/21] alendronate 70 mg PO SA 11/19/21 [History Last Taken 11/15/21] divalproex [Depakote ER] 1,000 mg PO QHS 11/19/21 [History Last Taken 11/18/21] divalproex [Depakote ER] 500 mg PO DAILY 11/19/21 [History Last Taken 11/19/21] finerenone 20 mg PO DAILY 11/19/21 [History Last Taken 11/18/21] lacosamide 150 mg PO QHS 11/19/21 [History Last Taken 11/18/21] lacosamide [Vimpat] 100 mg PO DAILY 11/19/21 [History Last Taken 11/19/21] metformin 1,000 mg PO BID 11/19/21 [History Last Taken 11/18/21] pregabalin 100 mg PO BID 11/19/21 [History Last Taken 11/18/21] acetaminophen [Tylenol] 650 mg PO Q4H PRN PRN #0 tab 11/22/21 [Rx Last Taken Unknown] albuterol sulfate 2.5 mg INHALATION Q2H PRN PRN #0 ml 11/22/21 [Rx Last Taken Unknown] aspirin 81 mg PO BREAKFAST 11/22/21 [History Last Taken Unknown] levofloxacin 500 mg PO DAILY@0600 11/22/21 [History Last Taken Unknown] ramipril 10 mg PO DAILY 11/22/21 [History Last Taken Unknown] Allergy/AdvReac Type Severity Reaction Status Date / Time amoxicillin [From Augmentin] Allergy Rash Verified 08/21/21 13:01 clavulanic acid Allergy Rash Verified 08/21/21 13:01 [From Augmentin] escitalopram [From Lexapro] Allergy Rash Verified 08/21/21 13:01 shellfish derived Allergy Unknown Verified 08/21/21 13:01 hydroxychloroquine AdvReac Severe Unknown Verified 08/21/21 13:01 [From Plaquenil] perfume AdvReac Unknown Verified 08/21/21 13:01 pineapple AdvReac Rash Verified 08/21/21 13:01 quinine AdvReac Unknown Verified 08/21/21 13:01 strawberry AdvReac Rash Verified 08/21/21 13:01 Sulfa (Sulfonamide AdvReac Unknown Verified 08/21/21 13:01 Antibiotics) DUST AdvReac Unknown Uncoded 08/21/21 13:01 Family History Brother Heart disease Hx CABG Hypertension Diabetes Mother Hypertension Surgical History History of breast surgery History of hysterectomy History of permanent cardiac pacemaker placement (11/15/17) Social History household members: spouse Smoking Status: Never smoker alcohol intake: never substance use type: does not use caffeine: No what type of physical activity do you participate in: none seatbelt use: always do you feel safe at home: Yes ROS Constitutional Constitutional: Denies chills, fever(s) or weight gain ENT HEENT: Denies headache(s), nasal congestion or nasal discharge Cardiovascular Cardiovascular: Denies chest pain or palpitations Respiratory/Chest Respiratory/Chest: Denies cough, excessive phlegm production or shortness of breath with exertion Gastrointestinal Gastrointestinal: Denies abdominal pain, nausea or vomiting Genitourinary Genitourinary: Denies dysuria Musculoskeletal Musculoskeletal: Denies joint pain or joint swelling Integumentary Integumentary: Denies rash or wounds Neurologic Neurologic: Denies focal weakness, numbness or tingling Psychiatric Psychiatric: Denies anxiety, auditory hallucinations, depression, homicidal ideation or suicidal ideation Vital Signs Vital Signs Vital Signs: 11/22/21 17:52 11/22/21 18:45 Temperature 97.8 F Temperature Source Temporal Pulse Rate 66 Pulse Rhythm Regular Pulse Strength Normal (2+) Respiratory Rate 16 Respiratory Effort Normal Non-Labored Respiratory Depth Normal Respiratory Pattern Normal Blood Pressure 149/68 H Blood Pressure Mean 95 Blood Pressure Source Monitor Blood Pressure Position Semi-Fowlers Blood Pressure Location Right Arm Pulse Ox 93 Oxygen Delivery Method Nasal Cannula Room Air Oxygen Flow Rate (L/min) 2 Weight Weight: 76.34 kg Body Mass Index (BMI) 30.9 Physical Exam Const alert General Appearance: cooperative HEENT normocephalic Eyes PERRL and EOMs intact bilaterally Neck supple, no JVD and no carotid bruits Resp normal respiratory effort, normal air movement and clear to auscultation bilaterally Cardio regular rate and regular rhythm GI normal to inspection, nondistended, normoactive bowel sounds, non-tender and non-distended Extremity normal capillary refill General Extremity: Negative for edema Skin no rashes or lesions noted General Skin Exam: no breakdown Neuro Neuro Narrative: Left hemiparesis. 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 * Debility - PT/OT. * Pain - Tylenol 1000mg q6h prn pain (1-10). * Bowel - Miralax 17gm daily, senna/colace 1 tablet bid, Dulcolax 10mg pr daily prn. * Adult immunization - Administer pneumonia vaccine, flu vaccine, covid19 vaccine as appropriate. * DVT prophylaxis - HAS-BLED score 3 high risk of bleeding, Carrie score 5 high risk of thromboembolism, overall risk moderate, Rx Xarelto 10mg daily x 14 days. * Shortness of breath - Albuterol 2.5mg nebulized q2h prn. * Osteoporosis - Alendronate 70mg qweek. * Hypertension - Ramipril 10mg daily, Amlodipine 5mg daily. * CV prophylaxis - Aspirin 81mg daily. * Hyperlipidemia - Atorvastatin 20mg qhs. * Seizure disorder - Depakote ER 500mg daily, 1000mg qhs, Vimpat 100mg daily, 150mg qhs. * Nephrotic proteinuria - Kerendia 20mg daily. * Urinary tract infection - Levaquin 500mg daily thru 11/27/2021. * Diabetes Mellitus II - Metformin 1000mg bidcm, Tradjenta 5mg daily. * Overactive bladder - Oxybutynin 5mg qhs. * Diabetic polyneuropathy - Lyrica 100mg bid. * Right ankle sprain - Consult Foot and Ankle to follow. WBAT RLE, cam walker boot.
[2021-11-22] MEDS: Lacosamide 100 MG Tablet PO (22:03)
[2021-11-22] MEDS: Lacosamide 50 MG Tablet PO (22:03)
[2021-11-22] MEDS: Divalproex (ER) 500 MG Tablet 1000 MG PO (22:08)
[2021-11-22] MEDS: Atorvastatin Calcium 20 MG Tablet PO (22:08)
[2021-11-22] MEDS: Oxybutynin 5 MG Tablet PO (22:08)
[2021-11-22] MEDS: Pregabalin 50 MG Capsule 100 MG PO (22:30)
[2021-11-23] MEDS: levoFLOXacin 500 MG Tablet PO (06:09)
[2021-11-23] MEDS: LINAGLIPTIN 5 MG TABLET PO (06:09)
[2021-11-23] MEDS: Divalproex (ER) 500 MG Tablet PO (06:09)
[2021-11-23] MEDS: Polyethylene Glycol 3350 17 GM PACKET PO (06:09)
[2021-11-23] MEDS: Senna/Docusate Sodium 1 Tablet PO ×2 (06:09→17:48)
[2021-11-23] MEDS: FINERENONE 20 MG TABLET PO (06:10)
[2021-11-23] MEDS: amLODIPine 5 MG Tablet PO (06:10)
[2021-11-23] MEDS: Ramipril 10 MG Capsule PO (06:10)
[2021-11-23] MEDS: Lacosamide 100 MG Tablet PO ×2 (06:14→21:38)
[2021-11-23 07:01] LABS: Bedside Glucose 163 mg/dL (74-106)
[2021-11-23 07:49] LABS: Absolute Lymphocyte Count 2.14 X10^3/uL (0.83-4.51); Absolute Neutrophil Count 2.4 X10^3/uL (2.0-7.7); Basophil# 0.02 X10^3/uL; Basophil% 0.4 % (0-1); Eosinophil# 0.06 X10^3/uL; Eosinophils% 1.1 % (0-5); Hematocrit 30.9 % (37-47); Hemoglobin 10.2 g/dL (12.0-15.0); Lymphocyte # 2.14 X10^3/ul (0.83-4.51); Lymphocyte % 40.8 % (19-41); Mean Corpuscular Hgb 28.6 pg (27.0-32.0); Mean Corpuscular Volume 86.6 fL (81-99); Mean Platelet Vol. 9.7 fl (6.2-12.0); Monocyte# 0.56 X10^3/uL; Monocyte% 10.7 % (0-10); NRBC Flagged by Analyzer 0 % (0-5); Neutrophil # 2.44 X10^3/uL (2.7-7.7); Neutrophil % 46.4 % (47-70); Platelet Count 156 K/mm3 (150-450); RBC Distribution Width CV 14.3 % (11.6-14.6); Red Blood Count 3.57 M/mm3 (4.2-5.4); White Blood Count 5.3 K/mm3 (4.4-11.0)
[2021-11-23 08:07] LABS: Anion Gap 4 (5-15); BUN 9 mg/dL (7-18); BUN/Creat Ratio 13.6 RATIO (10-20); Calcium,Total 8.8 mg/dL (8.5-10.1); Chloride 103 mmol/L (98-107); Creatinine, Serum 0.66 mg/dL (0.55-1.02); EST Glomerular Filtration Rate 94 mL/min (>60); Est Glom Filt Rate - Afr Amer 113 mL/min (>60); Estimated Creatinine Clearance 40.07 ml/min; Glucose 177 mg/dL (74-106); Potassium 4.1 mmol/L (3.5-5.1); Sodium Level 138 mmol/L (136-145)
[2021-11-23] MEDS: metFORMIN (XR) 500 MG Tablet 1000 MG PO ×2 (08:47→17:48)
[2021-11-23] MEDS: Aspirin 81 MG TAB.CHEW PO (08:47)
[2021-11-23] MEDS: Pregabalin 50 MG Capsule 100 MG PO ×2 (11:04→21:37)
[2021-11-23] MEDS: Tuberculin,Purif.prot.deriv. 50 TU/ML Vial 0.1 ML ID (11:05)
--- NOTE | 2021-11-23 13:00 | NURSING ---
Dr. Garcia called to check on pt and would like to see pt in 3 weeks. If we have any questions with weight bearing status or feel she is needed to be seen earlier okay to call her and schedule a earlier appt.
[2021-11-23] MEDS: 0.9% Saline Lock 10 ML Syringe IV (14:55)
[2021-11-23 16:00] VITALS: BP 110/68; PULSE 60; RESP 18; TEMP 36.1; O2SAT 98
[2021-11-23] MEDS: Rivaroxaban 10 MG Tablet PO (17:47)
[2021-11-23] MEDS: Atorvastatin Calcium 20 MG Tablet PO (21:36)
[2021-11-23] MEDS: Oxybutynin 5 MG Tablet PO (21:37)
[2021-11-23] MEDS: Lacosamide 50 MG Tablet PO (21:37)
[2021-11-23] MEDS: Divalproex (ER) 500 MG Tablet 1000 MG PO (21:37)
[2021-11-24 05:34] VITALS: BP 123/73; PULSE 60; RESP 18; TEMP 35.8; O2SAT 96
[2021-11-24] MEDS: amLODIPine 5 MG Tablet PO (05:42)
[2021-11-24] MEDS: Divalproex (ER) 500 MG Tablet PO (05:42)
[2021-11-24] MEDS: Ramipril 10 MG Capsule PO (05:42)
[2021-11-24] MEDS: LINAGLIPTIN 5 MG TABLET PO (05:42)
[2021-11-24] MEDS: Senna/Docusate Sodium 1 Tablet PO ×2 (05:42→17:15)
[2021-11-24] MEDS: levoFLOXacin 500 MG Tablet PO (05:42)
[2021-11-24] MEDS: FINERENONE 20 MG TABLET PO (05:42)
[2021-11-24] MEDS: Lacosamide 100 MG Tablet PO ×2 (05:42→20:42)
[2021-11-24 06:46] LABS: Bedside Glucose 163 mg/dL (74-106)
[2021-11-24 06:56] VITALS: O2SAT 95
[2021-11-24] MEDS: Pregabalin 50 MG Capsule 100 MG PO ×2 (09:16→20:42)
[2021-11-24] MEDS: Aspirin 81 MG TAB.CHEW PO (09:16)
[2021-11-24] MEDS: metFORMIN (XR) 500 MG Tablet 1000 MG PO ×2 (09:16→17:15)
[2021-11-24] MEDS: Polyethylene Glycol 3350 17 GM PACKET PO (11:49)
[2021-11-24 14:37] VITALS: BP 125/68; PULSE 61; RESP 15; TEMP 35.8; O2SAT 97
--- NOTE | 2021-11-24 15:21 | PHA.CONS1_ITS ---
Progress Note - Pharmacy Subjective: TCU Admission Objective: Allergies amoxicillin [From Augmentin] Allergy (Verified 08/21/21 13:01) Rash RASH ON FACE clavulanic acid [From Augmentin] Allergy (Verified 08/21/21 13:01) Rash RASH ON FACE escitalopram [From Lexapro] Allergy (Verified 08/21/21 13:01) Rash shellfish derived Allergy (Verified 08/21/21 13:01) Unknown hydroxychloroquine [From Plaquenil] Adverse Reaction (Severe, Verified 08/21/21 13:01) Unknown perfume Adverse Reaction (Verified 08/21/21 13:01) Unknown pineapple Adverse Reaction (Verified 08/21/21 13:01) Rash quinine Adverse Reaction (Verified 08/21/21 13:01) Unknown strawberry Adverse Reaction (Verified 08/21/21 13:01) Rash Sulfa (Sulfonamide Antibiotics) Adverse Reaction (Verified 08/21/21 13:01) Unknown DUST Adverse Reaction (Uncoded 08/21/21 13:01) Unknown Current Medications Generic Name Dose Route Start Last Admin Trade Name Freq PRN Reason Stop Dose Admin Acetaminophen 1,000 mg 11/22/21 19:24 Acetaminophen 500 Mg Tablet PO Q6H PRN PRN Pain Score 1-10 Albuterol Sulfate 2.5 mg 11/22/21 18:06 Albuterol 2.5 Mg/3 Ml Vial.Neb. INHALATION Q2H PRN PRN Dyspnea, wheezing Alendronate Sodium 70 mg 11/29/21 06:00 Alendronate Sodium 70 Mg Tablet PO Sa@0600 [facility] Amlodipine Besylate 5 mg 11/23/21 06:00 11/24/21 05:42 Amlodipine 5 Mg Tablet PO 5 mg DAILY RENEE Administration Aspirin 81 mg 11/23/21 08:00 11/24/21 09:16 Aspirin 81 Mg Tab.Chew PO 81 mg BREAKFAST RENEE Administration Atorvastatin Calcium 20 mg 11/22/21 22:00 11/23/21 21:36 Atorvastatin Calcium 20 Mg Tablet PO 20 mg QHS RENEE Administration Bisacodyl 10 mg 11/22/21 18:17 Bisacodyl 10 Mg Suppository RC X1 PRN Constipation Divalproex Sodium 500 mg 11/23/21 06:00 11/24/21 05:42 Divalproex (Er) 500 Mg Tablet PO 500 mg DAILY RENEE Administration Divalproex Sodium 1,000 mg 11/22/21 22:00 11/23/21 21:37 Divalproex (Er) 500 Mg Tablet PO 1,000 mg QHS RENEE Administration Lacosamide 100 mg 11/23/21 06:00 11/24/21 05:42 Lacosamide 100 Mg Tablet PO 100 mg DAILY RENEE Administration Lacosamide 100 mg 11/22/21 22:00 11/23/21 21:38 Lacosamide 100 Mg Tablet PO 100 mg QHS RENEE Administration Lacosamide 50 mg 11/22/21 22:00 11/23/21 21:37 Lacosamide 50 Mg Tablet PO 50 mg QHS RENEE Administration Levofloxacin 500 mg 11/23/21 06:00 11/24/21 05:42 Levofloxacin 500 Mg Tablet PO 11/27/21 06:01 500 mg DAILY@0600 RENEE Administration Linagliptin 5 mg 11/23/21 06:00 11/24/21 05:42 Linagliptin 5 Mg Tablet PO 5 mg DAILY RENEE Administration Metformin HCl 1,000 mg 11/23/21 08:00 11/24/21 09:16 Metformin (Xr) 500 Mg Tablet PO 1,000 mg BIDCM RENEE Administration Oxybutynin Chloride 5 mg 11/22/21 22:00 11/23/21 21:37 Oxybutynin 5 Mg Tablet PO 5 mg QHS RENEE Administration Polyethylene Glycol 17 gm 11/23/21 06:00 11/24/21 11:49 Polyethylene Glycol 3350 17 Gm Packet PO 17 gm DAILY RENEE Administration Pregabalin 100 mg 11/22/21 19:00 11/24/21 09:16 Pregabalin 50 Mg Capsule PO 100 mg 1000,2200 RENEE Administration Ramipril 10 mg 11/23/21 06:00 11/24/21 05:42 Ramipril 10 Mg Capsule PO 10 mg DAILY RENEE Administration Rivaroxaban 10 mg 11/23/21 17:00 11/23/21 17:47 Rivaroxaban 10 Mg Tablet PO 12/07/21 17:01 10 mg DINNER RENEE Administration Senna/Docusate Sodium 1 tablet 11/23/21 06:00 11/24/21 05:42 Senna/Docusate Sodium 1 Tablet PO 1 tablet BID RENEE Administration Sodium Chloride 10 - 40 ml 11/22/21 18:13 11/23/21 14:55 0.9% Saline Lock 10 Ml Syringe IV 10 ml UD PRN Administration SALINE FLUSH Tuberculin PPD 0.1 ml 11/30/21 10:00 Tuberculin,Purif.Prot.Deriv. 50 Tu/Ml Vial ID 11/30/21 10:01 X1 ONE Problem List (Last Reviewed 11/22/21 @ 19:[address] Devin Valadez MD) Nephrotic range proteinuria (Acute) Depression (Acute) Diabetic polyneuropathy (Acute) Diabetes mellitus (Acute) Seizure disorder (Acute) Osteoporosis (Acute) Hypertension (Chronic) Overactive bladder (Acute) Hyperlipidemia (Acute) Urinary tract infection (Acute) Fall (Acute) Debility (Acute) Right ankle sprain (Acute) Walking difficulty due to ankle and foot (Acute) Right ankle pain (Acute) Right foot pain (Acute) Frequent falls (Acute) Vital Signs Temp Pulse Resp BP Pulse Ox 96.4 F L 61 15 125/68 H 97 11/24/21 14:37 11/24/21 14:37 11/24/21 14:37 11/24/21 14:37 11/24/21 14:37 Oxygen Flow Rate (L/min) 2 Oxygen Delivery Method Room Air Weight: 76.34 kg Body Mass Index (BMI) 30.9 Sodium 138 mmol/L (136-145) 11/23/21 07:31 Potassium 4.1 mmol/L (3.5-5.1) 11/23/21 07:31 Chloride 103 mmol/L (98-107) 11/23/21 07:31 Carbon Dioxide 31.0 mmol/L (21.0-32.0) 11/23/21 07:31 Anion Gap 4 (5-15) L 11/23/21 07:31 BUN 9 mg/dL (7-18) 11/23/21 07:31 Creatinine 0.66 mg/dL (0.55-1.02) 11/23/21 07:31 Est GFR (MDRD) Af Amer 113 mL/min (>60) 11/23/21 07:31 Est GFR (MDRD) Non-Af 94 mL/min (>60) 11/23/21 07:31 BUN/Creatinine Ratio 13.6 RATIO (10-20) 11/23/21 07:31 Glucose 177 mg/dL (74-106) H 11/23/21 07:31 Assessment/Plan: 1) Pain APAP for pain 1-10, pregabalin twice a day. Continue to monitor daily pain sc ores, prn medication use. 2) DM2 Metformin, linagliptin, atorvastatin, ASA. Continue to monitor BGT, s/s hyper/hypoglycemia, lipids. 3) ID Levofloxacin for UTI thru 11/27. Continue to monitor s/s infection. 4) Osteoporosis Alendronate. Continue to monitor clinically. 5) DVT PPX Rivaroxaban thru 12/07. Continue to monitor s/s bleeding/clot. 6) Nephrotic proteinuria Kerendia. Continue to monitor clinically. 7) Seizures Lacosamide, divalproex. Continue to monitor for seizures. 8) OAB Oxybutynin. Continue to monitor symptoms. 9) HTN Ramipril, amlodipine. Continue to monitor BP/HR. renal function, electrolytes. Psychotropic Medications: None Unnecessary Medications: None Bowel Regimen: 10) Senna/s, PEG, prn bisacodyl. Continue to monitor prn medication use, constipation/diarrhea. Date of Note:: 11/24/21
--- NOTE | 2021-11-24 17:21 | NURSING ---
pt states that she is not on a blood thinner, they stopped it yrs ago d/t brain bleed. dr staley updated, new order to roxy garcia.
[2021-11-24] MEDS: Atorvastatin Calcium 20 MG Tablet PO (20:35)
[2021-11-24] MEDS: Divalproex (ER) 500 MG Tablet 1000 MG PO (20:35)
[2021-11-24] MEDS: Oxybutynin 5 MG Tablet PO (20:36)
[2021-11-24] MEDS: Lacosamide 50 MG Tablet PO (20:42)
[2021-11-24 22:54] VITALS: PULSE 60; RESP 14
[2021-11-25] MEDS: FINERENONE 20 MG TABLET PO (05:23)
[2021-11-25] MEDS: Senna/Docusate Sodium 1 Tablet PO ×2 (05:23→16:46)
[2021-11-25] MEDS: amLODIPine 5 MG Tablet PO (05:23)
[2021-11-25] MEDS: LINAGLIPTIN 5 MG TABLET PO (05:23)
[2021-11-25] MEDS: levoFLOXacin 500 MG Tablet PO (05:23)
[2021-11-25] MEDS: Divalproex (ER) 500 MG Tablet PO (05:23)
[2021-11-25] MEDS: Lacosamide 100 MG Tablet PO ×2 (05:23→21:59)
[2021-11-25] MEDS: Ramipril 10 MG Capsule PO (05:23)
[2021-11-25 06:31] LABS: Bedside Glucose 145 mg/dL (74-106)
[2021-11-25] MEDS: Aspirin 81 MG TAB.CHEW PO (08:12)
[2021-11-25] MEDS: metFORMIN (XR) 500 MG Tablet 1000 MG PO ×2 (08:12→16:45)
[2021-11-25 11:36] VITALS: O2SAT 97
[2021-11-25] MEDS: Pregabalin 50 MG Capsule 100 MG PO ×2 (11:38→22:00)
--- NOTE | 2021-11-25 14:00 | CASEMGMT ---
Social Work Met with patient to complete initial assessment. Introduced self and role. Pt wishes to have be primary contact and dtr, Aries, be secondary contact. Pt does not recall dtr's phone number. Once given to staff, dtr will be added to face sheet. Discussed code status and MOLST form. Pt confirmed full code. MOLST communicated to , placed in chart. Explained [facility] insurance with [employer]D 11/26 and continued stay is not guaranteed. The goal is for pt to return home with and mother continuing to assist with IADLs. SW to follow for DC planning. Ana Mosley, UTILITY HAND TANNERY GUMMER
[2021-11-25 14:53] VITALS: BP 137/66; PULSE 60; RESP 16; TEMP 36.2; O2SAT 97
[2021-11-25 20:00] VITALS: O2SAT 97
[2021-11-25] MEDS: Lacosamide 50 MG Tablet PO (22:00)
[2021-11-25] MEDS: Divalproex (ER) 500 MG Tablet 1000 MG PO (22:01)
[2021-11-25] MEDS: Oxybutynin 5 MG Tablet PO (22:01)
[2021-11-25] MEDS: Atorvastatin Calcium 20 MG Tablet PO (22:01)
[2021-11-26 05:20] VITALS: BP 132/75; PULSE 62
[2021-11-26] MEDS: Ramipril 10 MG Capsule PO (05:23)
[2021-11-26] MEDS: Senna/Docusate Sodium 1 Tablet PO ×2 (05:23→17:28)
[2021-11-26] MEDS: levoFLOXacin 500 MG Tablet PO (05:23)
[2021-11-26] MEDS: Polyethylene Glycol 3350 17 GM PACKET PO (05:23)
[2021-11-26] MEDS: FINERENONE 20 MG TABLET PO (05:23)
[2021-11-26] MEDS: Divalproex (ER) 500 MG Tablet PO (05:23)
[2021-11-26] MEDS: LINAGLIPTIN 5 MG TABLET PO (05:23)
[2021-11-26] MEDS: amLODIPine 5 MG Tablet PO (05:27)
[2021-11-26] MEDS: Lacosamide 100 MG Tablet PO ×2 (05:27→20:31)
[2021-11-26 06:16] LABS: Bedside Glucose 125 mg/dL (74-106)
[2021-11-26] MEDS: metFORMIN (XR) 500 MG Tablet 1000 MG PO ×2 (08:25→17:28)
[2021-11-26] MEDS: Aspirin 81 MG TAB.CHEW PO (08:25)
--- NOTE | 2021-11-26 09:21 | CASEMGMT ---
Social Work IDT met with patient, , two sons and DIL for care plan meeting. Discussed patient's progress in PT/OT and nursing. Pt making progress. Explained [facility] insurance with [employer] 11/26 and continued stay is not guaranteed. The goal is for pt to return home with and mother whom were assisting pt prior. Discussed goals for pt to safely return home. Pt should be able to toilet independently and son requested pt practice steps as his house has 3 steps with one handrail. Son expressed is elderly and she needs to be able to be CGA-SBA to do more ADLs and ambulate independently. Offered therapy family training to better assess goals and abilities. Family request ST eval to maintain/improve cognitive abilities and speech intelligibility. Ordered entered. Family expressed with hx of seizures and epilepsy is often triggered by calling out, lights flickering, over-stimulation, and pt has 'tells' for pre-seizure. explained she will start having tremor in hand, and he will 'talk to her and calm her down'. Relayed all of this to nursing to monitor. Provided resources for [facility] and nonskilled [facility] list, per family request for assistance in the home for to get a break. SW to continue to follow for DC planning. Family expressed appreciation. Ana Mosley, KIRTI QUINTANAW
[2021-11-26] MEDS: Pregabalin 50 MG Capsule 100 MG PO ×2 (10:38→20:31)
[2021-11-26 13:31] VITALS: BP 133/62; PULSE 85; RESP 16; TEMP 35.6; O2SAT 95
[2021-11-26 14:58] VITALS: O2SAT 95
[2021-11-26 15:50] VITALS: O2SAT 91
[2021-11-26 20:25] VITALS: O2SAT 92
[2021-11-26] MEDS: Divalproex (ER) 500 MG Tablet 1000 MG PO (20:25)
[2021-11-26] MEDS: Atorvastatin Calcium 20 MG Tablet PO (20:25)
[2021-11-26] MEDS: Oxybutynin 5 MG Tablet PO (20:25)
[2021-11-26] MEDS: Lacosamide 50 MG Tablet PO (20:31)
[2021-11-27 03:00] VITALS: O2SAT 92
[2021-11-27] MEDS: levoFLOXacin 500 MG Tablet PO (05:58)
[2021-11-27] MEDS: FINERENONE 20 MG TABLET PO (05:58)
[2021-11-27] MEDS: LINAGLIPTIN 5 MG TABLET PO (05:58)
[2021-11-27] MEDS: amLODIPine 5 MG Tablet PO (05:58)
[2021-11-27] MEDS: Lacosamide 100 MG Tablet PO ×2 (05:58→22:29)
[2021-11-27] MEDS: Senna/Docusate Sodium 1 Tablet PO ×2 (05:58→17:37)
[2021-11-27] MEDS: Divalproex (ER) 500 MG Tablet PO (05:58)
[2021-11-27] MEDS: Ramipril 10 MG Capsule PO (05:58)
[2021-11-27] MEDS: Polyethylene Glycol 3350 17 GM PACKET PO (05:59)
[2021-11-27 06:03] VITALS: BP 115/66; PULSE 65; O2SAT 92
[2021-11-27 06:21] LABS: Bedside Glucose 125 mg/dL (74-106)
[2021-11-27 06:50] VITALS: O2SAT 91
[2021-11-27] MEDS: Aspirin 81 MG TAB.CHEW PO (09:31)
[2021-11-27] MEDS: metFORMIN (XR) 500 MG Tablet 1000 MG PO ×2 (09:31→17:37)
[2021-11-27] MEDS: Pregabalin 50 MG Capsule 100 MG PO ×2 (09:32→22:29)
[2021-11-27 10:00] VITALS: PULSE 91; RESP 18; O2SAT 94
--- NOTE | 2021-11-27 11:12 | CASEMGMT ---
Social Work Emailed and provided verbal education to staff on known triggers for seizures. Pt wants nightlight in room to remain on so it does not flicker in room. Placed tape over lightswitch to remain in on position. Sign posted on pt's room door to enter calmly, approach slowly, and do not use a loud voice, and allow extra time for pt to process and respond. If pt does not understand or hear, she will ask staff to repeat. Pt will do her best to notify staff of any changes that could start a seizure, but doesn't always get enough time to verbalize changes. Pt and family appreciative of signage and communication. Ana Mosley, TEST GRADER TOPPER PRESS OPERATOR AUTOMATIC
--- NOTE | 2021-11-27 15:20 | NURSING ---
Teacher Preschool Note: 1:1 visit in room with resident while resting in chair. Res demonstrates STM deficits during conversation as well as some long-term memory deficits. She is aware of these deficits and at times is visibly distressed by them as evidenced by being tearful. Res states that she enjoys the staff on TCU, that everyone is kind and patient. Shared that she feels she is a burden to her family and that she feels they no longer want to care for her. Active and supportive listening provided. Encouraged resident to continue working with therapies to improve strength to regain some independence when she returns home. Also discussed her past interest in cooking and made a plan to provide ingredients next week to make a favorite recipe with her. Resident did appear to stare off at points in conversation and when asked if she was ok she was able to reply.
[2021-11-27 15:37] VITALS: BP 111/72; PULSE 78; RESP 16; TEMP 35.6; O2SAT 92
[2021-11-27] MEDS: Lacosamide 50 MG Tablet PO (22:29)
[2021-11-27] MEDS: Atorvastatin Calcium 20 MG Tablet PO (22:29)
[2021-11-27] MEDS: Oxybutynin 5 MG Tablet PO (22:29)
[2021-11-27] MEDS: Divalproex (ER) 500 MG Tablet 1000 MG PO (22:30)
[2021-11-27] MEDS: Mirtazapine 15 MG Tablet PO (22:30)
[2021-11-28 06:33] VITALS: BP 114/70; PULSE 63
[2021-11-28] MEDS: Ramipril 10 MG Capsule PO (06:35)
[2021-11-28] MEDS: FINERENONE 20 MG TABLET PO (06:35)
[2021-11-28 06:36] LABS: Bedside Glucose 105 mg/dL (74-106)
[2021-11-28] MEDS: Divalproex (ER) 500 MG Tablet PO (06:36)
[2021-11-28] MEDS: Polyethylene Glycol 3350 17 GM PACKET PO (06:36)
[2021-11-28] MEDS: Lacosamide 100 MG Tablet PO (06:37)
[2021-11-28] MEDS: Senna/Docusate Sodium 1 Tablet PO ×2 (06:37→17:51)
[2021-11-28] MEDS: amLODIPine 5 MG Tablet PO (06:37)
[2021-11-28] MEDS: LINAGLIPTIN 5 MG TABLET PO (06:37)
[2021-11-28 07:07] VITALS: O2SAT 92
[2021-11-28] MEDS: metFORMIN (XR) 500 MG Tablet 1000 MG PO ×2 (08:51→17:51)
[2021-11-28] MEDS: Aspirin 81 MG TAB.CHEW PO (08:51)
[2021-11-28] MEDS: Pregabalin 50 MG Capsule 100 MG PO ×2 (11:04→20:43)
[2021-11-28 14:08] VITALS: BP 128/77; PULSE 72; RESP 18; TEMP 35.9; O2SAT 93
--- NOTE | 2021-11-28 14:10 | NURSING ---
Addendum entered by Maryann Daniels 11/28/21 16:39: Resident has been resting in bed since having seizure. Respirations even and non labored. Will continue to monitor. Seizure pads in place. Original Note: THERAPY CAME TO THIS NURSE AND STATED PT JUST HAD A SEIZURE AT THE THE SINK WHILE SITTING IN WHEEL CHAIR. THIS NURSE TO ROOM AND PT NOT RESPONDING,HAD PRIMARY M[place]ESSORI TEACHER GET RN, RN GOT . VITALS DONE. IN ROOM DURING HOLE TIME AND STATED THIS IS HOW SHE ACTS AFTER A SEIZURE AND HE JUST LETS HER SLEEP IT OFF. PT DID FINALLY RESPOND TO . PT HELPED BACK TO BED BY NURSING STAFF. WILL CONTINUE TO MONITOR.
--- NOTE | 2021-11-28 14:23 | MDS.RN ---
Resident resting in bed, eyes closed, spouse at bedside, will complete staff assessment for MDS pain interview for BHAVANI 11/29/21.
--- NOTE | 2021-11-28 16:40 | CASEMGMT ---
Social Work BIMS and PHQ-9 completed for MDS assessment. Son present in room. Pt granted permission to complete assessment with son present. Pt reports to depression - sleeping all the time, lack of motivation, feeling like a burden. No reports of self harm, plan or intent. Acknowledged pt is on Remeron, but pt is agreeable to additional antidepressant if Dr. Valadez agrees. Pt reports her mood being normal since brain injury. Pt does not want counseling, but would like to feel happier. Left communication to Dr. Valadez. Ana Mosley ,MACHINE ACCOUNTANT SIGN LANGUAGE INTERPRETER
[2021-11-28 17:54] VITALS: BP 129/63; PULSE 65
[2021-11-28] MEDS: Oxybutynin 5 MG Tablet PO (20:23)
[2021-11-28] MEDS: Divalproex (ER) 500 MG Tablet 1000 MG PO (20:23)
[2021-11-28] MEDS: Atorvastatin Calcium 20 MG Tablet PO (20:24)
[2021-11-28] MEDS: Mirtazapine 15 MG Tablet PO (20:25)
[2021-11-28] MEDS: Lacosamide 100 MG Tablet 150 MG PO (20:44)
[2021-11-29] MEDS: Alendronate Sodium 70 MG Tablet PO (05:16)
[2021-11-29] MEDS: Lacosamide 100 MG Tablet PO (05:16)
[2021-11-29] MEDS: Divalproex (ER) 500 MG Tablet PO (05:16)
[2021-11-29] MEDS: Ramipril 10 MG Capsule PO (05:16)
[2021-11-29] MEDS: Polyethylene Glycol 3350 17 GM PACKET PO (05:16)
[2021-11-29] MEDS: LINAGLIPTIN 5 MG TABLET PO (05:16)
[2021-11-29] MEDS: Senna/Docusate Sodium 1 Tablet PO ×2 (05:16→17:27)
[2021-11-29] MEDS: FINERENONE 20 MG TABLET PO (05:16)
[2021-11-29] MEDS: amLODIPine 5 MG Tablet PO (05:16)
[2021-11-29 06:26] LABS: Bedside Glucose 117 mg/dL (74-106)
[2021-11-29 06:45] VITALS: O2SAT 93
[2021-11-29] MEDS: Aspirin 81 MG TAB.CHEW PO (09:09)
[2021-11-29] MEDS: metFORMIN (XR) 500 MG Tablet 1000 MG PO ×2 (09:09→17:26)
--- NOTE | 2021-11-29 09:38 | NURSING ---
This nurse called to room, VIDEO CONTROL ENGINEER Nahomi, assisting pt to bathroom and per her report, pt slumped over towards walker. Meter Attendant obtained W.C. and placed behind pt and pt was assisted to W.C., this nurse assessed pt and found her to be lethargic and left hand began to shake briefly. pt asked if this is what she usually experiences when having a seizure, pt stated she did not think she was having a seizure. However, pt weak and required this nurse and VIDEO CONTROL ENGINEER to assist pt to bedside commode per pt request and returned to bed. Seizure pads in place and call light within reach. Will continue to monitor.
[2021-11-29 09:46] VITALS: BP 100/63; PULSE 72; TEMP 35.9
--- NOTE | 2021-11-29 09:55 | NURSING ---
Notified Dr. Valadez of patient's episode. Received order for CBC /diff, BMP, Depakot and Vimpat levels, Straight cath, UA&CS, Chest xray, and Normal Saline bolus 1L. Orders repeated back, will add orders.
--- NOTE | 2021-11-29 10:40 | RAD_ITS ---
STUDY: X-RAY CHEST REASON FOR EXAM: Female, 71 years old. Seizure activity TECHNIQUE: PA and lateral views of the chest. COMPARISON: 11/20/2021. FINDINGS: Dual-chamber left-sided pacemaker is stable position. Hypoventilatory and atelectatic changes in the lung bases. No new infiltrate is seen. There is no demonstrated pleural abnormality. There is borderline cardiomegaly. Normal mediastinum and jannette. Normal visualized pulmonary arteries. Mild tortuosity of the thoracic aorta. Stable soft tissues and osseous structures. There is no demonstrated abnormality of the visualized soft tissue structures of the upper abdomen. RAD/Chest PA and Lateral IMPRESSION: For ventilatory and atelectatic changes in the lung bases. Electronically Signed: Angel Covarrubias MD at 11:25 EDT ,
[2021-11-29] MEDS: 0.9% Normal Saline 1,000 ML 999 ML IV (11:13)
[2021-11-29] MEDS: Pregabalin 50 MG Capsule 100 MG PO ×2 (11:13→21:29)
--- NOTE | 2021-11-29 11:34 | NURSING ---
Spouse notified of episode this am.
[2021-11-29 11:47] LABS: Absolute Lymphocyte Count 2.71 X10^3/uL (0.83-4.51); Absolute Neutrophil Count 3.8 X10^3/uL (2.0-7.7); Basophil# 0.02 X10^3/uL; Basophil% 0.3 % (0-1); Eosinophil# 0.05 X10^3/uL; Eosinophils% 0.7 % (0-5); Hematocrit 34.2 % (37-47); Hemoglobin 10.8 g/dL (12.0-15.0); Lymphocyte # 2.71 X10^3/ul (0.83-4.51); Lymphocyte % 36.2 % (19-41); Mean Corp Hgb Conc 31.6 g/dL (32-36); Mean Corpuscular Hgb 27.9 pg (27.0-32.0); Mean Corpuscular Volume 88.4 fL (81-99); Mean Platelet Vol. 10.3 fl (6.2-12.0); Monocyte# 0.74 X10^3/uL; Monocyte% 9.9 % (0-10); NRBC Flagged by Analyzer 0 % (0-5); Neutrophil # 3.81 X10^3/uL (2.7-7.7); Neutrophil % 50.8 % (47-70); Platelet Count 185 K/mm3 (150-450); RBC Distribution Width CV 14.2 % (11.6-14.6); RBC Distribution Width SD 45.8 fl (35.1-43.9); Red Blood Count 3.87 M/mm3 (4.2-5.4); White Blood Count 7.5 K/mm3 (4.4-11.0)
[2021-11-29 12:19] LABS: Anion Gap 8 (5-15); BUN 34 mg/dL (7-18); BUN/Creat Ratio 24.5 RATIO (10-20); Chloride 97 mmol/L (98-107); Creatinine, Serum 1.39 mg/dL (0.55-1.02); EST Glomerular Filtration Rate 40 mL/min (>60); Est Glom Filt Rate - Afr Amer 48 mL/min (>60); Estimated Creatinine Clearance 28.82 ml/min; Glucose 123 mg/dL (74-106); Potassium 5.4 mmol/L (3.5-5.1); Sodium Level 130 mmol/L (136-145)
[2021-11-29 13:11] LABS: Valproic Acid (Depakene) Level 88 ug/mL (50-100)
[2021-11-29 13:26] LABS: Bacteria 0 SEEN /hpf (None Seen); Mucous, Urine 0 SEEN /hpf (<or=2+); Red Blood Cells-Urine 0 SEEN /hpf (0-5); Squamous Epithelial Cells - UA 0 SEEN /hpf (5-10); White Blood Cells 0 SEEN /hpf (0-5)
[2021-11-29 13:30] LABS: Color, Urine Yellow (Yellow); Glucose, Dipstick Normal (Normal); Ketone-Dipstick Negative (Negative); Leukocyte Esterase-Dipstick Negative /ul (Negative); Nitrite-Dipstick Negative (Negative); Occult Blood-Urine Negative /ul (Negative); Protein-Dipstick 100 mg/dl (Negative); Specific Gravity, Urine 1.015 (1.002-1.030); Urine Bilirubin Dipstick Negative (Negative); Urine Clarity Clear (Clear); Urine Urobilinogen Normal (Normal)
[2021-11-29 16:00] VITALS: BP 99/55; PULSE 67; RESP 14; TEMP 36.1; O2SAT 92
[2021-11-29] MEDS: Sodium Polystyrene Sulfonate 15 GM/60 ML UDC 30 GM PO (20:15)
[2021-11-29] MEDS: Oxybutynin 5 MG Tablet PO (21:29)
[2021-11-29] MEDS: Atorvastatin Calcium 20 MG Tablet PO (21:29)
[2021-11-29] MEDS: Divalproex (ER) 500 MG Tablet 1000 MG PO (21:29)
[2021-11-29] MEDS: Mirtazapine 15 MG Tablet PO (21:30)
[2021-11-29] MEDS: Lacosamide 100 MG Tablet 150 MG PO (21:30)
[2021-11-29 22:30] VITALS: PULSE 66
[2021-11-30] MEDS: Lacosamide 100 MG Tablet PO (05:37)
[2021-11-30] MEDS: Ramipril 10 MG Capsule PO (05:44)
[2021-11-30] MEDS: Senna/Docusate Sodium 1 Tablet PO (05:44)
[2021-11-30] MEDS: amLODIPine 5 MG Tablet PO (05:44)
[2021-11-30] MEDS: Divalproex (ER) 500 MG Tablet PO (05:45)
[2021-11-30] MEDS: FINERENONE 20 MG TABLET PO (05:45)
[2021-11-30] MEDS: LINAGLIPTIN 5 MG TABLET PO (05:45)
[2021-11-30] MEDS: Polyethylene Glycol 3350 17 GM PACKET PO (05:45)
[2021-11-30 06:41] LABS: Bedside Glucose 123 mg/dL (74-106)
[2021-11-30 06:45] LABS: Absolute Lymphocyte Count 2.07 X10^3/uL (0.83-4.51); Absolute Neutrophil Count 2.7 X10^3/uL (2.0-7.7); Basophil# 0.02 X10^3/uL; Basophil% 0.4 % (0-1); Eosinophil# 0.06 X10^3/uL; Eosinophils% 1.1 % (0-5); Hemoglobin 10.2 g/dL (12.0-15.0); Lymphocyte # 2.07 X10^3/ul (0.83-4.51); Lymphocyte % 37.2 % (19-41); Mean Corp Hgb Conc 31.9 g/dL (32-36); Mean Corpuscular Hgb 28.4 pg (27.0-32.0); Mean Corpuscular Volume 89.1 fL (81-99); Mean Platelet Vol. 9.8 fl (6.2-12.0); Monocyte# 0.63 X10^3/uL; Monocyte% 11.3 % (0-10); NRBC Flagged by Analyzer 0 % (0-5); Neutrophil # 2.66 X10^3/uL (2.7-7.7); Neutrophil % 47.7 % (47-70); Platelet Count 174 K/mm3 (150-450); RBC Distribution Width CV 14.2 % (11.6-14.6); Red Blood Count 3.59 M/mm3 (4.2-5.4); White Blood Count 5.6 K/mm3 (4.4-11.0)
[2021-11-30 07:18] LABS: Anion Gap 5 (5-15); BUN 31 mg/dL (7-18); BUN/Creat Ratio 32.8 RATIO (10-20); Calcium,Total 8.6 mg/dL (8.5-10.1); Chloride 102 mmol/L (98-107); Creatinine, Serum 0.94 mg/dL (0.55-1.02); EST Glomerular Filtration Rate 62 mL/min (>60); Est Glom Filt Rate - Afr Amer 75 mL/min (>60); Estimated Creatinine Clearance 42.62 ml/min; Glucose 129 mg/dL (74-106); Potassium 4.9 mmol/L (3.5-5.1); Sodium Level 135 mmol/L (136-145)
[2021-11-30] MEDS: Aspirin 81 MG TAB.CHEW PO (08:39)
[2021-11-30] MEDS: Acetaminophen 500 MG Tablet 1000 MG PO (08:39)
[2021-11-30] MEDS: metFORMIN (XR) 500 MG Tablet 1000 MG PO ×2 (08:39→17:15)
--- NOTE | 2021-11-30 09:36 | NURSING ---
Notified spouse that pt is out of Kerendia, medication they bring from home. Spouse stated he would get a refill and bring the medication in.
[2021-11-30] MEDS: Tuberculin,Purif.prot.deriv. 50 TU/ML Vial 0.1 ML ID (10:38)
[2021-11-30] MEDS: Pregabalin 50 MG Capsule 100 MG PO ×2 (10:38→20:57)
[2021-11-30 14:48] VITALS: BP 102/55; PULSE 64; RESP 18; TEMP 36.1; O2SAT 93
[2021-11-30] MEDS: 0.9% Saline Lock 10 ML Syringe IV (17:16)
[2021-11-30] MEDS: Divalproex (ER) 500 MG Tablet 1000 MG PO (20:56)
[2021-11-30] MEDS: Oxybutynin 5 MG Tablet PO (20:56)
[2021-11-30] MEDS: Atorvastatin Calcium 20 MG Tablet PO (20:56)
[2021-11-30] MEDS: Lacosamide 100 MG Tablet 150 MG PO (20:57)
[2021-11-30] MEDS: Mirtazapine 15 MG Tablet PO (20:57)
[2021-12-01] MEDS: Lacosamide 100 MG Tablet PO (05:04)
[2021-12-01] MEDS: Polyethylene Glycol 3350 17 GM PACKET PO (05:04)
[2021-12-01] MEDS: FINERENONE 20 MG TABLET PO (05:04)
[2021-12-01] MEDS: Senna/Docusate Sodium 1 Tablet PO (05:05)
[2021-12-01] MEDS: Divalproex (ER) 500 MG Tablet PO (05:05)
[2021-12-01] MEDS: LINAGLIPTIN 5 MG TABLET PO (05:05)
[2021-12-01] MEDS: amLODIPine 5 MG Tablet PO (05:05)
[2021-12-01] MEDS: Ramipril 10 MG Capsule PO (05:05)
[2021-12-01 06:37] LABS: Bedside Glucose 105 mg/dL (74-106)
[2021-12-01] MEDS: metFORMIN (XR) 500 MG Tablet 1000 MG PO ×2 (07:55→17:26)
[2021-12-01] MEDS: Aspirin 81 MG TAB.CHEW PO (07:55)
[2021-12-01] MEDS: Pregabalin 50 MG Capsule 100 MG PO ×2 (10:31→21:12)
--- NOTE | 2021-12-01 11:55 | NURSING ---
Hair Worker Note: MDS section F completed with resident and family input/ interview.
[2021-12-01 16:00] VITALS: BP 119/62; PULSE 60; RESP 16; TEMP 35.7; O2SAT 94
[2021-12-01] MEDS: Lacosamide 100 MG Tablet 150 MG PO (21:12)
[2021-12-01] MEDS: Divalproex (ER) 500 MG Tablet 1000 MG PO (21:19)
[2021-12-01] MEDS: Atorvastatin Calcium 20 MG Tablet PO (21:20)
[2021-12-01] MEDS: Mirtazapine 15 MG Tablet PO (21:20)
[2021-12-01] MEDS: Oxybutynin 5 MG Tablet PO (21:20)
[2021-12-02] MEDS: Lacosamide 100 MG Tablet PO (05:12)
[2021-12-02] MEDS: Polyethylene Glycol 3350 17 GM PACKET PO (05:12)
[2021-12-02] MEDS: Senna/Docusate Sodium 1 Tablet PO (05:12)
[2021-12-02] MEDS: Divalproex (ER) 500 MG Tablet PO (05:12)
[2021-12-02] MEDS: Ramipril 10 MG Capsule PO (05:12)
[2021-12-02] MEDS: LINAGLIPTIN 5 MG TABLET PO (05:12)
[2021-12-02] MEDS: FINERENONE 20 MG TABLET PO (05:12)
[2021-12-02] MEDS: amLODIPine 5 MG Tablet PO (05:12)
[2021-12-02 06:41] LABS: Bedside Glucose 109 mg/dL (74-106)
[2021-12-02] MEDS: metFORMIN (XR) 500 MG Tablet 1000 MG PO ×2 (08:11→16:38)
[2021-12-02] MEDS: Aspirin 81 MG TAB.CHEW PO (08:12)
[2021-12-02 09:51] VITALS: O2SAT 94
[2021-12-02] MEDS: Pregabalin 50 MG Capsule 100 MG PO ×2 (10:47→21:59)
[2021-12-02 14:01] VITALS: BP 118/65; PULSE 77; RESP 16; TEMP 36; O2SAT 95
[2021-12-02] MEDS: Oxybutynin 5 MG Tablet PO (21:59)
[2021-12-02] MEDS: Divalproex (ER) 500 MG Tablet 1000 MG PO (21:59)
[2021-12-02] MEDS: Atorvastatin Calcium 20 MG Tablet PO (21:59)
[2021-12-02] MEDS: Mirtazapine 15 MG Tablet PO (21:59)
[2021-12-02] MEDS: Lacosamide 100 MG Tablet 150 MG PO (22:00)
[2021-12-03 06:36] LABS: Bedside Glucose 108 mg/dL (74-106)
[2021-12-03] MEDS: LINAGLIPTIN 5 MG TABLET PO (06:42)
[2021-12-03] MEDS: Ramipril 10 MG Capsule PO (06:42)
[2021-12-03] MEDS: amLODIPine 5 MG Tablet PO (06:42)
[2021-12-03] MEDS: Divalproex (ER) 500 MG Tablet PO (06:42)
[2021-12-03] MEDS: Lacosamide 100 MG Tablet PO (06:42)
[2021-12-03] MEDS: FINERENONE 20 MG TABLET PO (06:43)
[2021-12-03 07:10] VITALS: O2SAT 91
[2021-12-03] MEDS: Aspirin 81 MG TAB.CHEW PO (08:47)
[2021-12-03] MEDS: metFORMIN (XR) 500 MG Tablet 1000 MG PO ×2 (08:47→17:38)
[2021-12-03] MEDS: Pregabalin 50 MG Capsule 100 MG PO ×2 (10:30→20:48)
--- NOTE | 2021-12-03 10:35 | NURSING ---
Up in chair. Awake and pleasant. Talkative. No needs or concerns voiced. Legs elevated. Walking boot to RT leg in place. Call light in reach.
[2021-12-03] MEDS: Acetaminophen 500 MG Tablet 1000 MG PO (13:00)
[2021-12-03 14:51] VITALS: BP 124/73; PULSE 69; RESP 14; TEMP 36.2; O2SAT 94
[2021-12-03 19:32] VITALS: PULSE 63; RESP 16; O2SAT 95
[2021-12-03] MEDS: Divalproex (ER) 500 MG Tablet 1000 MG PO (20:47)
[2021-12-03] MEDS: Oxybutynin 5 MG Tablet PO (20:48)
[2021-12-03] MEDS: Atorvastatin Calcium 20 MG Tablet PO (20:48)
[2021-12-03] MEDS: Lacosamide 100 MG Tablet 150 MG PO (20:48)
[2021-12-03] MEDS: Mirtazapine 15 MG Tablet PO (20:50)
[2021-12-04] MEDS: LINAGLIPTIN 5 MG TABLET PO (05:23)
[2021-12-04] MEDS: Lacosamide 100 MG Tablet PO (05:23)
[2021-12-04] MEDS: Ramipril 10 MG Capsule PO (05:23)
[2021-12-04] MEDS: amLODIPine 5 MG Tablet PO (05:24)
[2021-12-04] MEDS: Divalproex (ER) 500 MG Tablet PO (05:24)
[2021-12-04] MEDS: FINERENONE 20 MG TABLET PO (05:25)
[2021-12-04 05:28] VITALS: BP 129/67; PULSE 62
[2021-12-04 06:21] LABS: Bedside Glucose 107 mg/dL (74-106)
[2021-12-04 07:08] VITALS: O2SAT 94
[2021-12-04] MEDS: metFORMIN (XR) 500 MG Tablet 1000 MG PO ×2 (08:41→17:18)
[2021-12-04] MEDS: Aspirin 81 MG TAB.CHEW PO (08:41)
--- NOTE | 2021-12-04 11:44 | MDS.RN ---
Information for the mds was obtained from review of the clinical record, interview of resident, staff, and direct observation of resident's care.
[2021-12-04] MEDS: Pregabalin 50 MG Capsule 100 MG PO ×2 (12:16→21:29)
[2021-12-04 13:59] VITALS: BP 96/60; PULSE 63; RESP 16; TEMP 36.2; O2SAT 96
[2021-12-04] MEDS: Lacosamide 100 MG Tablet 150 MG PO (21:29)
[2021-12-04 21:30] VITALS: PULSE 60; RESP 16; O2SAT 94
[2021-12-04] MEDS: Mirtazapine 15 MG Tablet PO (21:30)
[2021-12-04] MEDS: Divalproex (ER) 500 MG Tablet 1000 MG PO (21:30)
[2021-12-04] MEDS: Oxybutynin 5 MG Tablet PO (21:30)
[2021-12-04] MEDS: Atorvastatin Calcium 20 MG Tablet PO (21:30)
[2021-12-05 05:21] VITALS: BP 116/69; PULSE 59
[2021-12-05] MEDS: Lacosamide 100 MG Tablet PO (05:22)
[2021-12-05] MEDS: Divalproex (ER) 500 MG Tablet PO (05:22)
[2021-12-05] MEDS: LINAGLIPTIN 5 MG TABLET PO (05:22)
[2021-12-05] MEDS: Ramipril 10 MG Capsule PO (05:22)
[2021-12-05] MEDS: amLODIPine 5 MG Tablet PO (05:22)
[2021-12-05] MEDS: FINERENONE 20 MG TABLET PO (05:23)
[2021-12-05 06:21] LABS: Bedside Glucose 113 mg/dL (74-106)
[2021-12-05 07:20] VITALS: O2SAT 93
[2021-12-05] MEDS: Aspirin 81 MG TAB.CHEW PO (08:43)
[2021-12-05] MEDS: metFORMIN (XR) 500 MG Tablet 1000 MG PO ×2 (08:43→16:30)
[2021-12-05] MEDS: Pregabalin 50 MG Capsule 100 MG PO ×2 (10:10→21:54)
[2021-12-05 15:43] VITALS: BP 121/71; PULSE 61; RESP 18; TEMP 36.2; O2SAT 96
[2021-12-05] MEDS: Lacosamide 100 MG Tablet 150 MG PO (21:55)
[2021-12-05] MEDS: Divalproex (ER) 500 MG Tablet 1000 MG PO (21:55)
[2021-12-05] MEDS: Atorvastatin Calcium 20 MG Tablet PO (21:56)
[2021-12-05] MEDS: Mirtazapine 15 MG Tablet PO (21:56)
[2021-12-05] MEDS: Oxybutynin 5 MG Tablet PO (21:56)
[2021-12-05 23:20] VITALS: PULSE 59; RESP 16; O2SAT 93
[2021-12-06] MEDS: Lacosamide 100 MG Tablet PO (06:12)
[2021-12-06] MEDS: Divalproex (ER) 500 MG Tablet PO (06:13)
[2021-12-06] MEDS: amLODIPine 5 MG Tablet PO (06:13)
[2021-12-06] MEDS: FINERENONE 20 MG TABLET PO (06:14)
[2021-12-06] MEDS: LINAGLIPTIN 5 MG TABLET PO (06:14)
[2021-12-06] MEDS: Ramipril 10 MG Capsule PO (06:17)
[2021-12-06] MEDS: Alendronate Sodium 70 MG Tablet PO (06:17)
[2021-12-06 06:30] LABS: Bedside Glucose 115 mg/dL (74-106)
[2021-12-06 08:00] VITALS: O2SAT 96
[2021-12-06] MEDS: metFORMIN (XR) 500 MG Tablet 1000 MG PO ×2 (08:58→17:49)
[2021-12-06] MEDS: Aspirin 81 MG TAB.CHEW PO (08:58)
[2021-12-06] MEDS: Pregabalin 50 MG Capsule 100 MG PO ×2 (10:59→20:54)
--- NOTE | 2021-12-06 12:38 | NURSING ---
pt reported to warehouse shift supervisor that she noticed spotting, not observed by nursing staff. pt states she use to be on it. dr rebeka guevara, new order entered. will continue to monitor.
[2021-12-06 15:32] VITALS: BP 93/50; PULSE 60; RESP 15; TEMP 36.6; O2SAT 93
[2021-12-06] MEDS: Divalproex (ER) 500 MG Tablet 1000 MG PO (20:54)
[2021-12-06] MEDS: Oxybutynin 5 MG Tablet PO (20:54)
[2021-12-06] MEDS: Atorvastatin Calcium 20 MG Tablet PO (20:55)
[2021-12-06] MEDS: Lacosamide 100 MG Tablet 150 MG PO (20:55)
[2021-12-06] MEDS: Mirtazapine 15 MG Tablet PO (20:55)
[2021-12-07 05:29] VITALS: BP 121/58; PULSE 60
[2021-12-07] MEDS: Senna/Docusate Sodium 1 Tablet PO (05:30)
[2021-12-07] MEDS: Ramipril 10 MG Capsule PO (05:30)
[2021-12-07] MEDS: LINAGLIPTIN 5 MG TABLET PO (05:30)
[2021-12-07] MEDS: amLODIPine 5 MG Tablet PO (05:30)
[2021-12-07] MEDS: Divalproex (ER) 500 MG Tablet PO (05:30)
[2021-12-07] MEDS: FINERENONE 20 MG TABLET PO (05:31)
[2021-12-07] MEDS: Polyethylene Glycol 3350 17 GM PACKET PO (05:31)
[2021-12-07] MEDS: Lacosamide 100 MG Tablet PO (05:37)
[2021-12-07 06:26] LABS: Bedside Glucose 87 mg/dL (74-106)
[2021-12-07 06:28] LABS: Absolute Lymphocyte Count 3.78 X10^3/uL (0.83-4.51); Absolute Neutrophil Count 2.7 X10^3/uL (2.0-7.7); Basophil# 0.02 X10^3/uL; Basophil% 0.3 % (0-1); Eosinophil# 0.05 X10^3/uL; Eosinophils% 0.7 % (0-5); Hematocrit 33.2 % (37-47); Hemoglobin 10.4 g/dL (12.0-15.0); Lymphocyte # 3.78 X10^3/ul (0.83-4.51); Lymphocyte % 52.7 % (19-41); Mean Corp Hgb Conc 31.3 g/dL (32-36); Mean Corpuscular Volume 89.2 fL (81-99); Mean Platelet Vol. 10.1 fl (6.2-12.0); Monocyte# 0.54 X10^3/uL; Monocyte% 7.5 % (0-10); NRBC Flagged by Analyzer 0 % (0-5); Neutrophil # 2.69 X10^3/uL (2.7-7.7); Neutrophil % 37.5 % (47-70); Platelet Count 171 K/mm3 (150-450); RBC Distribution Width CV 14.5 % (11.6-14.6); RBC Distribution Width SD 46.2 fl (35.1-43.9); Red Blood Count 3.72 M/mm3 (4.2-5.4); White Blood Count 7.2 K/mm3 (4.4-11.0)
[2021-12-07 06:43] LABS: Anion Gap 5 (5-15); BUN 37 mg/dL (7-18); Chloride 106 mmol/L (98-107); Creatinine, Serum 0.86 mg/dL (0.55-1.02); EST Glomerular Filtration Rate 69 mL/min (>60); Est Glom Filt Rate - Afr Amer 84 mL/min (>60); Estimated Creatinine Clearance 46.59 ml/min; Glucose 92 mg/dL (74-106); Potassium 5.9 mmol/L (3.5-5.1); Sodium Level 135 mmol/L (136-145)
--- NOTE | 2021-12-07 08:29 | NURSING ---
dr staley aware of K+ level of 5.9, new orders entered.
[2021-12-07] MEDS: Aspirin 81 MG TAB.CHEW PO (08:42)
[2021-12-07] MEDS: metFORMIN (XR) 500 MG Tablet 1000 MG PO ×2 (08:42→17:14)
[2021-12-07] MEDS: Pregabalin 50 MG Capsule 100 MG PO ×2 (10:21→22:25)
[2021-12-07] MEDS: Sodium Polystyrene Sulfonate 15 GM/60 ML UDC 30 GM PO (13:23)
[2021-12-07 14:04] VITALS: O2SAT 96
[2021-12-07 16:00] VITALS: BP 104/59; PULSE 60; RESP 21; TEMP 35.9; O2SAT 94
[2021-12-07 16:09] LABS: Protein, Urine (Random) 95.8 mg/dL (<11.9); Protein:Creat Ratio 1478 mg/g CRE (0-200)
[2021-12-07] MEDS: Lacosamide 100 MG Tablet 150 MG PO (22:25)
[2021-12-07] MEDS: Divalproex (ER) 500 MG Tablet 1000 MG PO (22:26)
[2021-12-07] MEDS: Mirtazapine 15 MG Tablet PO (22:27)
[2021-12-07] MEDS: Atorvastatin Calcium 20 MG Tablet PO (22:27)
[2021-12-07] MEDS: Oxybutynin 5 MG Tablet PO (22:28)
[2021-12-08 06:26] LABS: Bedside Glucose 132 mg/dL (74-106)
[2021-12-08 06:29] LABS: Anion Gap 6 (5-15); BUN 39 mg/dL (7-18); BUN/Creat Ratio 39.8 RATIO (10-20); Calcium,Total 8.2 mg/dL (8.5-10.1); Chloride 105 mmol/L (98-107); Creatinine, Serum 0.98 mg/dL (0.55-1.02); EST Glomerular Filtration Rate 60 mL/min (>60); Est Glom Filt Rate - Afr Amer 72 mL/min (>60); Estimated Creatinine Clearance 40.88 ml/min; Glucose 132 mg/dL (74-106); Potassium 5.2 mmol/L (3.5-5.1); Sodium Level 136 mmol/L (136-145)
[2021-12-08] MEDS: amLODIPine 5 MG Tablet PO (06:45)
[2021-12-08] MEDS: LINAGLIPTIN 5 MG TABLET PO (06:45)
[2021-12-08] MEDS: Lacosamide 100 MG Tablet PO (06:45)
[2021-12-08] MEDS: Polyethylene Glycol 3350 17 GM PACKET PO (06:46)
[2021-12-08] MEDS: Divalproex (ER) 500 MG Tablet PO (06:46)
[2021-12-08] MEDS: Senna/Docusate Sodium 1 Tablet PO (06:46)
[2021-12-08] MEDS: FINERENONE 20 MG TABLET 10 MG PO (06:47)
[2021-12-08 06:53] VITALS: BP 122/58; PULSE 59
[2021-12-08] MEDS: Sodium Polystyrene Sulfonate 15 GM/60 ML UDC PO (09:02)
[2021-12-08] MEDS: Aspirin 81 MG TAB.CHEW PO (09:02)
[2021-12-08] MEDS: metFORMIN (XR) 500 MG Tablet 1000 MG PO ×2 (09:02→16:26)
[2021-12-08] MEDS: Pregabalin 50 MG Capsule 100 MG PO ×2 (10:25→20:04)
[2021-12-08 13:49] VITALS: BP 140/63; PULSE 63; RESP 14; TEMP 35.7; O2SAT 95
--- NOTE | 2021-12-08 13:51 | NURSING ---
Therapy reported to this RN that patient became shaky during exercises and then fatigued. Assisted back to bed without incident. Vital signs stable. Patient A&Ox3. Denies pain/discomfort. Seizure precautions maintained. Pt resting in bed at this time with call light within reach.
[2021-12-08] MEDS: Atorvastatin Calcium 20 MG Tablet PO (20:04)
[2021-12-08] MEDS: Oxybutynin 5 MG Tablet PO (20:04)
[2021-12-08] MEDS: Divalproex (ER) 500 MG Tablet 1000 MG PO (20:04)
[2021-12-08] MEDS: Lacosamide 100 MG Tablet 150 MG PO (20:05)
[2021-12-08] MEDS: Mirtazapine 15 MG Tablet PO (20:05)
[2021-12-08] MEDS: Estrogens,Conj. 1 Tube 1 DOSE VAGINAL (20:20)
[2021-12-09] MEDS: LINAGLIPTIN 5 MG TABLET PO (06:30)
[2021-12-09] MEDS: FINERENONE 20 MG TABLET 10 MG PO (06:30)
[2021-12-09] MEDS: Divalproex (ER) 500 MG Tablet PO (06:31)
[2021-12-09] MEDS: Lacosamide 100 MG Tablet PO (06:31)
[2021-12-09 06:34] VITALS: BP 99/55; PULSE 66
[2021-12-09 06:34] LABS: Anion Gap 6 (5-15); BUN 40 mg/dL (7-18); BUN/Creat Ratio 44.3 RATIO (10-20); Calcium,Total 8.9 mg/dL (8.5-10.1); Chloride 107 mmol/L (98-107); EST Glomerular Filtration Rate 66 mL/min (>60); Est Glom Filt Rate - Afr Amer 79 mL/min (>60); Estimated Creatinine Clearance 44.52 ml/min; Glucose 126 mg/dL (74-106); Potassium 4.8 mmol/L (3.5-5.1); Sodium Level 138 mmol/L (136-145)
[2021-12-09 06:36] LABS: Bedside Glucose 127 mg/dL (74-106)
[2021-12-09] MEDS: Aspirin 81 MG TAB.CHEW PO (08:28)
[2021-12-09] MEDS: metFORMIN (XR) 500 MG Tablet 1000 MG PO ×2 (08:28→16:48)
[2021-12-09 09:15] VITALS: BP 146/66; PULSE 66; RESP 16; TEMP 36.8; O2SAT 90
[2021-12-09 09:17] VITALS: O2SAT 95
--- NOTE | 2021-12-09 09:17 | NURSING ---
pt was showering with assist of OT, therapist stated hands and leg shaking during shower. assisted x2 to WC then to bed, pt conscious entire time but just tired. pt stated she felt her lip tingling. vitals stable. call light in pt hand. no more shaking noted to extremities when staff arrived to assist to WC.
[2021-12-09] MEDS: Pregabalin 50 MG Capsule 100 MG PO ×2 (10:22→21:28)
[2021-12-09 14:16] VITALS: BP 139/66; PULSE 63; RESP 15; TEMP 35.8; O2SAT 92
[2021-12-09] MEDS: Senna/Docusate Sodium 1 Tablet PO (16:48)
[2021-12-09] MEDS: Oxybutynin 5 MG Tablet PO (21:28)
[2021-12-09] MEDS: Divalproex (ER) 500 MG Tablet 1000 MG PO (21:28)
[2021-12-09] MEDS: Atorvastatin Calcium 20 MG Tablet PO (21:28)
[2021-12-09] MEDS: Mirtazapine 15 MG Tablet PO (21:29)
[2021-12-09] MEDS: Lacosamide 100 MG Tablet 150 MG PO (21:29)
[2021-12-09 21:34] VITALS: PULSE 60; RESP 16; O2SAT 92
[2021-12-10 05:57] VITALS: BP 142/68; PULSE 59
[2021-12-10] MEDS: FINERENONE 20 MG TABLET 10 MG PO (05:58)
[2021-12-10] MEDS: Lacosamide 100 MG Tablet PO (05:58)
[2021-12-10] MEDS: Divalproex (ER) 500 MG Tablet PO (05:59)
[2021-12-10] MEDS: LINAGLIPTIN 5 MG TABLET PO (05:59)
[2021-12-10] MEDS: Ramipril 10 MG Capsule PO (05:59)
[2021-12-10] MEDS: amLODIPine 5 MG Tablet PO (05:59)
[2021-12-10] MEDS: Senna/Docusate Sodium 1 Tablet PO (05:59)
[2021-12-10 06:36] LABS: Bedside Glucose 126 mg/dL (74-106)
[2021-12-10] MEDS: Acetaminophen 500 MG Tablet 1000 MG PO ×2 (08:42→20:52)
[2021-12-10] MEDS: Aspirin 81 MG TAB.CHEW PO (08:42)
[2021-12-10] MEDS: metFORMIN (XR) 500 MG Tablet 1000 MG PO ×2 (08:42→17:24)
[2021-12-10] MEDS: Pregabalin 50 MG Capsule 100 MG PO ×2 (10:35→20:52)
--- NOTE | 2021-12-10 13:17 | CASEMGMT ---
Social Work Insurance issued LCD 12/12, DC 12/13. Spoke with whom is in agreement. Pt and request outpatient therapy at [facility]. Referral made for PT/OT. No DME needs identified. to transport. Plan: DC home with 12/13, [facility] PT/OT KIRTI JimenezW
[2021-12-10 15:33] VITALS: BP 164/91; PULSE 62; RESP 16; TEMP 35.8; O2SAT 97
[2021-12-10 18:17] VITALS: BP 173/65
--- NOTE | 2021-12-10 19:12 | PCM.DC.SUM ---
Providers Date of Admission: 11/22/21 Primary Care Physician: Dr. Hannah Riggs, Consultations 11/22/21 19:22 Consult: Podiatry Routine Consulting Provider: Marcie Garcia Reason for Consult: Right ankle sprain. continuity of care EMERGENT Consult: No MD Notified: Yes Date Notified: 11/23/21 Time Notified: 19:23 Method of Notification: Provider Initiated Reason For Visit: FAILURE TO THRIVE Diagnosis Discharge Diagnosis (1) Debility: Status: Acute Code(s): R53.81 - Other malaise (2) Fall: Status: Acute Code(s): W19.XXXA - Unspecified fall, initial encounter (3) Right ankle sprain: Code(s): S93.401A - Sprain of unspecified ligament of right ankle, initial encounter (4) Walking difficulty due to ankle and foot: Status: Deleted Code(s): R26.2 - Difficulty in walking, not elsewhere classified (5) Right ankle pain: Status: Deleted Code(s): M25.571 - Pain in right ankle and joints of right foot (6) Right foot pain: Status: Deleted Code(s): M79.671 - Pain in right foot (7) Frequent falls: Status: Deleted Code(s): R29.6 - Repeated falls (8) Urinary tract infection: Status: Acute Code(s): N39.0 - Urinary tract infection, site not specified (9) Hyperlipidemia: Status: Acute Code(s): E78.5 - Hyperlipidemia, unspecified (10) Overactive bladder: Status: Acute Code(s): N32.81 - Overactive bladder (11) Hypertension: Status: Chronic Code(s): I10 - Essential (primary) hypertension (12) Osteoporosis: Status: Acute Code(s): M81.0 - Age-related osteoporosis without current pathological fracture (13) Seizure disorder: Status: Acute Code(s): G40.909 - Epilepsy, unspecified, not intractable, without status epilepticus (14) Diabetes mellitus: Status: Acute Code(s): E11.9 - Type 2 diabetes mellitus without complications (15) Diabetic polyneuropathy: Status: Acute Code(s): E11.42 - Type 2 diabetes mellitus with diabetic polyneuropathy (16) Depression: Status: Acute Code(s): F32.A - Depression, unspecified (17) Nephrotic range proteinuria: Status: Acute Code(s): R80.9 - Proteinuria, unspecified Medications at Discharge Home Medications simvastatin 40 mg PO QHS 04/08/17 oxybutynin chloride 5 mg PO QHS 05/20/17 amlodipine 5 mg PO DAILY 10/06/17 Januvia 50 mg PO DAILY 11/19/21 alendronate 70 mg PO SA 11/19/21 divalproex [Depakote ER] 1,000 mg PO QHS 11/19/21 divalproex [Depakote ER] 500 mg PO DAILY 11/19/21 lacosamide 150 mg PO QHS 11/19/21 lacosamide [Vimpat] 100 mg PO DAILY 11/19/21 metformin 1,000 mg PO BID 11/19/21 pregabalin 100 mg PO BID 11/19/21 aspirin 81 mg PO BREAKFAST 11/22/21 ramipril 10 mg PO DAILY 11/22/21 acetaminophen 1,000 mg PO Q6H PRN PRN #0 tab 12/10/21 finerenone [Kerendia] 10 mg PO DAILY #0 tab 12/10/21 lacosamide [Vimpat] 150 mg PO QHS #0 tab 12/10/21 mirtazapine 15 mg PO QHS 30 Days #30 tab 12/10/21 Hospital Course Operations None Procedures None Summary of Care Provided Minutes Spent on Discharge: 35 Hospital Course: 71 year old female with below past medical history hospitalized for fall, right ankle sprain, complicated by urinary tract infection, admitted to TCU with debility, here for rehabilitation, strengthening, prior to discharge home with . Discharge home with 12/13/2021, [employer] PT/OT. Physical Exam Const alert General Appearance: cooperative HEENT normocephalic Eyes PERRL and EOMs intact bilaterally Neck supple, no JVD and no carotid bruits Resp normal respiratory effort, normal air movement and clear to auscultation bilaterally Cardio regular rate and regular rhythm GI normal to inspection, nondistended, normoactive bowel sounds, non-tender and non-distended Extremity normal capillary refill General Extremity: Negative for edema Skin no rashes or lesions noted General Skin Exam: no breakdown Psych affect normal Appearance: appropriate Weight / BMI Weight Weight: 75.523 kg Body Mass Index (BMI) 30.9 ABG / Lab / Microbiology Data Result Diagrams: 12/07/21 06:20 12/09/21 05:31 Laboratory: Laboratory Results - last 24 hr 12/10/21 06:30: POC Glucose 126 H Microbiology: Microbiology 12/02/21 12:38 Nasal Secretion SARS-CoV-2 Antigen (Rapid) - Final 11/29/21 13:00 Urine, Catheterized Urine Culture - Final Culture exhibits no growth. 11/27/21 09:35 Nasal Secretion SARS-CoV-2 Antigen (Rapid) - Final 11/23/21 09:30 Nasal Secretion SARS-CoV-2 Antigen (Rapid) - Final D/C Instructions Discharge Diet: No restrictions Discharge Activity: Return to Normal Activity, May Shower and Use Walker Weight Bearing Status: Weight bearing as tolerated Call your doctor if you observe: Fever of 101 or Higher, Inability to urinate, Inability to have a bowel movement, Shortness of breath, Dizziness, Fainting spells, Swelling in the ankles, Chest pain and Uncontrolled pain Additional Instructions: Discharge home with 12/13/2021, [employer] [facility] PT/OT. Meaningful Use Info Meaningful Use Diagnoses (Choose all that apply): None applicable Discharge Plan Admission Admit Date/Time: 11/22/21 16:45 Primary Reason for Your Visit: Debility. Attending Provider: Devin Valadez Chi Primary Care Provider: Hannah Riggs Consulting Providers: Marcie Garcia Instructions Additional Instructions / Restrictions: Discharge home with 12/13/2021, [employer] PT/OT. Discharge Orders/Prescriptions Prescriptions: New acetaminophen 500 mg Tablet 1,000 mg PO Q6H PRN PRN (Reason: Pain Score 1-10) Qty: 0 RF: 0 mirtazapine 15 mg Tablet 15 mg PO QHS 30 Days Qty: 30 RF: 0 lacosamide [Vimpat] 100 mg Tablet 150 mg PO QHS Qty: 0 RF: 0 Kerendia 20 mg Tablet 10 mg PO DAILY Qty: 0 RF: 0 Continued simvastatin 40 MG tablet 40 mg PO QHS RF: 0 oxybutynin chloride 5 MG tablet 5 mg PO QHS RF: 0 amlodipine 5 MG tablet 5 mg PO DAILY RF: 0 alendronate 70 mg Tablet 70 mg PO SA RF: 0 divalproex [Depakote ER] 500 mg Tablet Extended Release 24 Hr 500 mg PO DAILY RF: 0 divalproex [Depakote ER] 500 mg Tablet Extended Release 24 Hr 1,000 mg PO QHS RF: 0 pregabalin 100 mg Capsule 100 mg PO BID RF: 0 Januvia 50 mg Tablet 50 mg PO DAILY RF: 0 lacosamide 150 mg Tablet 150 mg PO QHS RF: 0 metformin 500 mg tablet extended release 24 hr 1,000 mg PO BID RF: 0 lacosamide [Vimpat] 100 mg tablet 100 mg PO DAILY RF: 0 aspirin 81 mg tablet,chewable 81 mg PO BREAKFAST RF: 0 ramipril 10 mg capsule 10 mg PO DAILY RF: 0 Discontinued finerenone 20 mg Tablet 20 mg PO DAILY RF: 0 acetaminophen [Tylenol] 325 mg Tablet 650 mg PO Q4H PRN PRN (Reason: Fever, pain 1-10) Qty: 0 RF: 0 albuterol sulfate 2.5 mg /3 mL (0.083 %) Solution For Nebulization 2.5 mg inhalation Q2H PRN PRN (Reason: Dyspnea, wheezing) Qty: 0 RF: 0 levofloxacin 500 mg tablet 500 mg PO DAILY@0600 RF: 0 Referrals / Follow Up: Marcie Garcia DPM [STAFF PHYSICIAN] - (3 weeks. ) Hannah Riggs DO [Primary Care Provider] - Within 1 Week Disposition Disposition (needs filled in before D/C Order can be placed): Home, Self Care
[2021-12-10] MEDS: Lacosamide 100 MG Tablet 150 MG PO (20:53)
[2021-12-10] MEDS: Atorvastatin Calcium 20 MG Tablet PO (20:54)
[2021-12-10] MEDS: Mirtazapine 15 MG Tablet PO (20:54)
[2021-12-10] MEDS: Oxybutynin 5 MG Tablet PO (20:54)
[2021-12-10] MEDS: Divalproex (ER) 500 MG Tablet 1000 MG PO (20:55)
[2021-12-11 06:02] LABS: Anion Gap 4 (5-15); BUN 36 mg/dL (7-18); BUN/Creat Ratio 36.5 RATIO (10-20); Calcium,Total 9.1 mg/dL (8.5-10.1); Chloride 108 mmol/L (98-107); Creatinine, Serum 0.99 mg/dL (0.55-1.02); EST Glomerular Filtration Rate 59 mL/min (>60); Est Glom Filt Rate - Afr Amer 72 mL/min (>60); Estimated Creatinine Clearance 40.47 ml/min; Glucose 121 mg/dL (74-106); Potassium 5.4 mmol/L (3.5-5.1); Sodium Level 138 mmol/L (136-145)
[2021-12-11 06:20] VITALS: BP 112/60; PULSE 60
[2021-12-11] MEDS: Lacosamide 100 MG Tablet PO (06:20)
[2021-12-11] MEDS: FINERENONE 20 MG TABLET 10 MG PO (06:22)
[2021-12-11] MEDS: Divalproex (ER) 500 MG Tablet PO (06:22)
[2021-12-11] MEDS: LINAGLIPTIN 5 MG TABLET PO (06:22)
[2021-12-11] MEDS: Senna/Docusate Sodium 1 Tablet PO (06:22)
[2021-12-11] MEDS: amLODIPine 5 MG Tablet PO (06:25)
[2021-12-11] MEDS: Ramipril 10 MG Capsule PO (06:25)
[2021-12-11 06:31] LABS: Bedside Glucose 106 mg/dL (74-106)
[2021-12-11] MEDS: Acetaminophen 500 MG Tablet 1000 MG PO (08:31)
[2021-12-11] MEDS: metFORMIN (XR) 500 MG Tablet 1000 MG PO ×2 (08:32→17:11)
[2021-12-11] MEDS: Aspirin 81 MG TAB.CHEW PO (08:32)
[2021-12-11] MEDS: Pregabalin 50 MG Capsule 100 MG PO ×2 (11:26→22:02)
[2021-12-11] MEDS: Sodium Polystyrene Sulfonate 15 GM/60 ML UDC 30 GM PO (11:26)
[2021-12-11 15:16] VITALS: BP 119/71; PULSE 62; RESP 16; TEMP 36.7; O2SAT 90
--- NOTE | 2021-12-11 16:23 | MDS.RN ---
Pain interview for BHAVANI 12/13/21
[2021-12-11 22:00] VITALS: PULSE 68; RESP 16; O2SAT 92
[2021-12-11] MEDS: Lacosamide 100 MG Tablet 150 MG PO (22:02)
[2021-12-11] MEDS: Oxybutynin 5 MG Tablet PO (22:03)
[2021-12-11] MEDS: Atorvastatin Calcium 20 MG Tablet PO (22:03)
[2021-12-11] MEDS: Divalproex (ER) 500 MG Tablet 1000 MG PO (22:03)
[2021-12-11] MEDS: Mirtazapine 15 MG Tablet PO (22:04)
[2021-12-12 06:14] LABS: Anion Gap 5 (5-15); BUN 37 mg/dL (7-18); BUN/Creat Ratio 34.9 RATIO (10-20); Calcium,Total 8.3 mg/dL (8.5-10.1); Chloride 107 mmol/L (98-107); Creatinine, Serum 1.06 mg/dL (0.55-1.02); EST Glomerular Filtration Rate 55 mL/min (>60); Est Glom Filt Rate - Afr Amer 66 mL/min (>60); Glucose 131 mg/dL (74-106); Potassium 5.1 mmol/L (3.5-5.1); Sodium Level 139 mmol/L (136-145)
[2021-12-12 06:26] VITALS: BP 104/68; PULSE 60
[2021-12-12] MEDS: LINAGLIPTIN 5 MG TABLET PO (06:27)
[2021-12-12] MEDS: Senna/Docusate Sodium 1 Tablet PO ×2 (06:27→17:39)
[2021-12-12] MEDS: Lacosamide 100 MG Tablet PO (06:27)
[2021-12-12] MEDS: amLODIPine 5 MG Tablet PO (06:28)
[2021-12-12] MEDS: Ramipril 10 MG Capsule PO (06:28)
[2021-12-12] MEDS: Divalproex (ER) 500 MG Tablet PO (06:28)
[2021-12-12] MEDS: metFORMIN (XR) 500 MG Tablet 1000 MG PO ×2 (08:15→17:39)
[2021-12-12] MEDS: Aspirin 81 MG TAB.CHEW PO (08:15)
[2021-12-12] MEDS: Acetaminophen 500 MG Tablet 1000 MG PO (09:09)
[2021-12-12] MEDS: Pregabalin 50 MG Capsule 100 MG PO ×2 (09:09→20:31)
[2021-12-12 13:35] LABS: Bedside Glucose 115 mg/dL (74-106)
[2021-12-12 14:46] VITALS: BP 152/70; PULSE 71; RESP 18; TEMP 36.5; O2SAT 96
--- NOTE | 2021-12-12 15:11 | NURSING ---
Pt's call light rang and answered right away, pt sitting on the floor. Stating that she slid out of the chair. A&Ox3, denies hitting head, denies pain. Vitals obtained and charted. Dr. Valadez and updated of fall. Red falls sign hung on door.
--- NOTE | 2021-12-12 15:40 | CASEMGMT ---
PHQ9 and BIMS interviews completed on this date for MDS assessment. KARENA Otto
[2021-12-12] MEDS: Mirtazapine 15 MG Tablet PO (20:31)
[2021-12-12] MEDS: Atorvastatin Calcium 20 MG Tablet PO (20:32)
[2021-12-12] MEDS: Divalproex (ER) 500 MG Tablet 1000 MG PO (20:32)
[2021-12-12] MEDS: Oxybutynin 5 MG Tablet PO (20:32)
[2021-12-12] MEDS: Estrogens,Conj. 1 Tube 1 DOSE VAGINAL (20:33)
[2021-12-12] MEDS: Lacosamide 100 MG Tablet 150 MG PO (20:34)
[2021-12-12 20:40] VITALS: O2SAT 94
[2021-12-13 05:59] VITALS: BP 120/65; PULSE 62
[2021-12-13] MEDS: amLODIPine 5 MG Tablet PO (06:02)
[2021-12-13] MEDS: Ramipril 10 MG Capsule PO (06:02)
[2021-12-13] MEDS: Alendronate Sodium 70 MG Tablet PO (06:02)
[2021-12-13] MEDS: LINAGLIPTIN 5 MG TABLET PO (06:02)
[2021-12-13] MEDS: Senna/Docusate Sodium 1 Tablet PO (06:02)
[2021-12-13] MEDS: Divalproex (ER) 500 MG Tablet PO (06:04)
[2021-12-13] MEDS: Lacosamide 100 MG Tablet PO (06:08)
[2021-12-13 06:31] LABS: Bedside Glucose 121 mg/dL (74-106)
[2021-12-13] MEDS: metFORMIN (XR) 500 MG Tablet 1000 MG PO (08:21)
[2021-12-13] MEDS: Aspirin 81 MG TAB.CHEW PO (08:21)
--- NOTE | 2021-12-13 09:45 | PCM.PROGNOTE ---
Subjective Subjective Patient was seen this morning for follow up on right foot/ankle. She has been using CAM Walker boot. She denies any pain or issues with the foot or ankle at this time. She is resting comfortably sitting up in chair. Objective Data Objective Data Vital Signs: Vital Signs Temp Pulse Resp BP Pulse Ox 97.7 F L 62 18 120/65 94 12/12/21 14:46 12/13/21 05:59 12/12/21 14:46 12/13/21 05:59 12/12/21 20:40 Oxygen Flow Rate (L/min) 2 Oxygen Delivery Method Room Air Weight: 75.523 kg Body Mass Index (BMI) 30.9 Intake & Output: Intake and Output for Last 24 Hours 12/11/21 12/12/21 12/13/21 23:59 23:59 23:59 Intake Total 720 / 720 760 / 760 480 / 480 Balance 720 / 720 760 / 760 480 / 480 Lab / Micro Data Result Diagrams: 12/07/21 06:20 12/12/21 05:32 Labs: Laboratory Results - last 24 hr 12/12/21 06:32: POC Glucose 115 H 12/13/21 06:25: POC Glucose 121 H Micro: Microbiology 12/02/21 12:38 Nasal Secretion SARS-CoV-2 Antigen (Rapid) - Final 11/29/21 13:00 Urine, Catheterized Urine Culture - Final Culture exhibits no growth. 11/27/21 09:35 Nasal Secretion SARS-CoV-2 Antigen (Rapid) - Final 11/23/21 09:30 Nasal Secretion SARS-CoV-2 Antigen (Rapid) - Final Physical Exam Const alert and no apparent distress Extremity Extremity Narrative: Right foot/ankle/leg: No open lesions, no erythema, no cellulitis, no drainage; there is smooth painfree ROM to the foot and ankle with no gross instability, muscle strength intact to major muscle groups but some weakness noted, no POP or pain on ROM to the foot or ankle, no evidence of compartment syndrome, no evidence of Charcot neuroarthropathy, no evidence of infection. No evidence of infection, wounds or issues to the left foot or ankle. Calf is soft and supple bilateral with no evidence of DVT. Assessment & Plan Assessment/Plan (1) Sprain of ankle: (2) Ankle pain, right: PLAN: Re-evaluation performed. Right ankle and foot are doing well at this time with no pain. Ok to transition out of CAM Walker to shoegear. Continue with physical therapy. May continue full weightbearing and ok to continue to progress activity from foot/ankle stand point as tolerated under the management of therapist. [facility] 4 [facility]. Please do not hesitate to call if you have any questions.
[2021-12-13] MEDS: Pregabalin 50 MG Capsule 100 MG PO (10:20)
[2021-12-13 11:25] VITALS: BP 116/68; PULSE 70; RESP 18; TEMP 36.7; O2SAT 96
== END 2021-12-13 11:20 | disposition home or self-care (01) | DRG 949 ==
PROVIDERS: Admitting Provider Family Medicine Geriatric Medicine; PCP Internal Medicine; Visit Provider Family Medicine Geriatric Medicine
DX: S93.401D Sprain of unspecified ligament of right ankle, subsequent encounter (principal); N39.0 Urinary tract infection, site not specified; E11.22 Type 2 diabetes mellitus with diabetic chronic kidney disease; E11.42 Type 2 diabetes mellitus with diabetic polyneuropathy; G40.909 Epilepsy, unspecified, not intractable, without status epilepticus; I48.0 Paroxysmal atrial fibrillation; E78.5 Hyperlipidemia, unspecified; E66.9 Obesity, unspecified; I12.9 Hypertensive chronic kidney disease with stage 1 through stage 4 chronic kidney disease, or unspecified chronic kidney disease; R26.2 Difficulty in walking, not elsewhere classified; N18.9 Chronic kidney disease, unspecified; W19.XXXD Unspecified fall, subsequent encounter; M17.12 Unilateral primary osteoarthritis, left knee; F32.A Depression, unspecified; N32.81 Overactive bladder; Z79.84 Long term (current) use of oral hypoglycemic drugs; Z79.83 Long term (current) use of bisphosphonates; Z79.899 Other long term (current) drug therapy; Z79.82 Long term (current) use of aspirin; Z68.30 Body mass index [BMI] 30.0-30.9, adult; Z95.0 Presence of cardiac pacemaker
CPT/HCPCS: 36415; 71046; 80048; 80164; 81001; 82570; 82962; 84156; 85025; 87086; 87426; 87811; 92523; 97110; 97116; 97161; 97166; 97530; 97535; 97802; J7030; A4216

== ENCOUNTER → 2022-01-14 | Outpatient (CLI) | payer MEDICARE, SELFPAY ==
[2022-01-14 14:26] LABS: Hematocrit 34.5 % (37-47); Hemoglobin 10.7 g/dL (12.0-15.0); Mean Corpuscular Hgb 28.4 pg (27.0-32.0); Mean Corpuscular Volume 91.5 fL (81-99); Mean Platelet Vol. 10.2 fl (6.2-12.0); Platelet Count 135 K/mm3 (150-450); RBC Distribution Width CV 14.8 % (11.6-14.6); RBC Distribution Width SD 49.5 fl (35.1-43.9); Red Blood Count 3.77 M/mm3 (4.2-5.4); White Blood Count 5.2 K/mm3 (4.4-11.0)
[2022-01-14 14:50] LABS: BUN 23 mg/dL (7-18); BUN/Creat Ratio 24.2 RATIO (10-20); Calcium,Total 9.1 mg/dL (8.5-10.1); Chloride 105 mmol/L (98-107); Creatinine, Serum 0.95 mg/dL (0.55-1.02); EST Glomerular Filtration Rate 62 mL/min (>60); Est Glom Filt Rate - Afr Amer 75 mL/min (>60); Glucose 256 mg/dL (74-106); Phosphorus 2.1 mg/dL (2.5-4.9); Potassium 4.8 mmol/L (3.5-5.1); Sodium Level 139 mmol/L (136-145)
[2022-01-14 15:02] LABS: Protein, Urine (Random) 243.1 mg/dL (<11.9); Protein:Creat Ratio 2884 mg/g CRE (0-200)
== END | disposition home or self-care (01) ==
LOC: LAB 13:27
PROVIDERS: PCP Internal Medicine; Visit Provider Internal Medicine Nephrology
DX: E11.21 Type 2 diabetes mellitus with diabetic nephropathy (principal); R80.8 Other proteinuria; D64.9 Anemia, unspecified
CPT/HCPCS: 36415; 80069; 82570; 84156; 85027; 86335

== ENCOUNTER → 2022-01-20 | Outpatient (CLI) | payer MEDICARE, SELFPAY ==
--- NOTE | 2022-01-20 13:32 | BI_ITS ---
MAMMOGRAPHY - BILATERAL SCREENING REASON FOR EXAM: Female, 71 years old. Routine annual screening examination. PERTINENT HISTORY: Right excisional biopsy in 1994. Left stereotactic biopsy and excisional biopsy in 1994. No other history provided. TECHNIQUE: Digital bilateral breast azeb (3D mammographic acquisition) in the CC and MLO projections. 2-D mediolateral oblique (MLO) and craniocaudad (CC) views of both breasts were obtained. CAD: Full Field Digital Mammography with Computer Added Detection was performed. COMPARISON: Bilateral screening mammogram from 06/02/2017, 10/22/2015, 07/29/2012, 10/29/2010. FINDINGS: Breast Composition: There are scattered areas of fibroglandular density. There are no dominant masses or suspicious calcifications. No other significant abnormalities are identified. There has been no significant change since the prior study. BI/SCRN MAMM (CAD)W/AZEB BILAT IMPRESSION: Stable bilateral screening mammogram. Yearly follow-up mammogram recommended. (A) ASSESSMENT CATEGORY: BIRADS Category 1: Negative. A letter regarding these results will be sent to the patient by the facility within 30 days. Approximately 10% of breast cancers are not detected by mammography. A normal mammogram should not delay biopsy of a clinically suspicious abnormality. [id number] Electronically Signed: Pete Valdez, at 16:08 EDT ,
--- NOTE | 2022-01-20 13:35 | BD_ITS ---
STUDY: DUAL ENERGY X-RAY ABSORPTIOMETRY / DXA REASON FOR EXAM: Female, 71 years old. [id number]. Patient is postmenopausal. TECHNIQUE: Bone Mineral Density (BMD) measurements of lumbar spine and bilateral hips were obtained. COMPARISON: Comparison is made with prior study dated 10/22/2015. FINDINGS: Lumbar Spine (L1-L4): g/cm2 (0.984) / T-score (-0.3) / Z-score (1.7) Findings are suggestive of normal bone density with a low fracture risk. Left Femur Total: g/cm2 (0.915) / T-score (-0.2) / Z-score (1.3) Left Femoral Neck: g/cm2 (0.718) / T-score (-1.2) / Z-score (0.6) Right Femur Total: g/cm2 (1.018) / T-score (0.6) / Z-score (2.1) Right Femoral Neck: g/cm2 (0.771) / T-score (-0.7) / Z-score (1.1) The T-Scores on the most recent prior examination were: Lumbar Spine (L1-L4): There has been improvement of bone density since the previous examination. Left Femur Total: which represents a worsening of 4.6%. Right Femur Total: which represents an improvement of 1%. BD/Dexa Bone Density Study IMPRESSION: The patient is considered osteopenic as outlined below according to World Archie Organization (WHO) criteria with a low fracture risk. There has been improvement of bone density since the previous examination. Reference Information: The T-score is the number of standard deviations above or below the standard which is normal for young adults at their peak bone mineral density. The World Health Organization (WHO) interprets the T-scores as follows: Above -1 Normal bone density Between -1 and -2.5 Osteopenia Equal to / or below -2.5 Osteoporosis As a practical clinical guideline, osteopenia may be graded as follows: Mild -1 through -1.5 Moderate -1.6 through -2.0 Severe -2.1 through -2.4 The Z-score is the number of standard deviations above or below age-matched controls. A Z-score of less than -1.5 would be considered abnormal. References: 1. NIH Osteoporosis and Related Bone Diseases www osteo.org 2. International Society for Clinical Densitometry www iscd.org 3. National Osteoporosis Foundation www nof.org Electronically Signed: Paresh Kebede MD at 9:32 EDT ,
== END | disposition home or self-care (01) ==
LOC: OPBD 13:29
PROVIDERS: PCP Internal Medicine; Visit Provider Internal Medicine
DX: Z12.31 Encounter for screening mammogram for malignant neoplasm of breast (principal); Z78.0 Asymptomatic menopausal state
CPT/HCPCS: 77063; 77067; 77080

== ENCOUNTER 2022-01-27 10:30 | Outpatient (RCR) | payer MEDICARE, SELFPAY ==
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
--- NOTE | 2022-01-27 13:06 | HP.PTDCSUM ---
It has been my pleasure to treat HERMINIA CARDONA referred by Dr. Hannah Riggs DO, with the diagnosis of DEBILITY, DECLINE IN ADL'S, SEIZURE DISORDER, AND H/O TBI for a total of 10 visit(s). Discharge Date: Please see the following information for a summary of their discharge status. Subjective: PATIENT DENIES ANKLE PAIN TODAY. REPORTS SHE HAD ANOTHER SEIZURE LAST NIGHT BUT FEELS OK NOW. PATIENT REPORTS SHE IS 100% BETTER AND REPORTS SHE IS DOING EVEN BETTER NOW THAN BEFORE SHE FELL. REPORTS SHE IS DOING A HEP NOW AND SHE WASN'T BEFORE SHE FELL. % Improvement: 100 Objective/Function: ASSESSED READINESS FOR DISCHARGE AND EXERCISED TODAY. SEE TUG AND SIT TO STAND TEST RESULTS BELOW. LALY LE STRENGTH IS 4-5/5 THROUGHOUT. PATINT DENIES PAIN WITH RIGHT ANKLE TESTING. DYNAMIC BALANCE IS FAIR AND WALKER RECOMMENDED OUTSIDE OF HOME VS CANE FOR SAFETY (PATIENT AND AGREEABLE). PATIENT HAS MADE GOOD PROGRESS WITH PT. PATIENT IS APPROPRIATE FOR DISCHARGE TO HEP AND SHE AND HER ARE AGREEABLE. Goal 1:: PATIENT WILL IMPROVE HER TUG TEST BY 15 SEC Goal Progress: Goal Met Goal 2:: PATIENT WILL COMPLETE 9 SIT TO STANDS IN 30 SEC WITH UE ASSIST. Goal Progress: Goal Met Goal 3:: PATIENT WILL BE SAFE WITH GAIT WITH SUPERVISION ON LEVEL SURFACES WITH FWW X >600 FEET Goal Progress: Goal Met Goal 4:: PATIENT WILL BE INDEP WITH A HEP FOR CONTINUED IMPROVEMENT ONCE FORMAL PHYSICAL THERAPY CONCLUDES Goal Progress: Goal Met Plan: *PACEMAKER*. FALL RISK. USE GAIT BELT. FOCUS ON AMBULATION, BALANCE, LE AND CORE WEAKNESS AND FUNCTIONAL MOBILITY. If there are questions or concerns regarding this patient's physical therapy, please feel free to call me at [phone]. Thank you for the referral of this patient. Sincerely, Iris Rodas, PT, Cert MDT Balance/Gait/Functional tests - Balance/Special Test Scores % Disability: 100 Lower Extremity Functional Score: 46 TUG Test Time Seconds: 23.21 Tug Test: 20-30sec.=variable mobility 30 Second Chair Rise Test Seconds: 11
--- NOTE | 2022-01-27 13:51 | HP.OTDCSUM_ITS ---
It has been my pleasure to treat HERMINIA CARDONA under orders from Dr. Hannah Riggs DO, for the diagnosis of Debility/decline/seizure disorder for a total of 9 visit(s). Please see the following information for a summary of their discharge status. % Improvement: 90 Objective/Function: R RF, PF 3.22. R MF, IF, thumb & L RF 3.61. L IF, MF, PF, & thumb below 4.17 pt. stating her brain does not like it referring to the semmes lianet assessment Pt. has and mom cut food. Pt. has participated in 9 OT treatments with focus on strengthening, ADL tasks, IADL tasks, and postural exercises. Patient Goals: Regain Strength, Use Hand/Wrist/Arm Normally Again, Be More Independent in ADLS, Resume Former Household Responsibilities (Cooking,Cleaning,Yard, etc.) Other: pt. goal is to lift 5# with both hands. Goal:: Pt. will improve UB strength to demonstrating the ability to lift 5# with distal support for increased indep with putting groceries away by dc. 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 Goal:: Pt. to complete UB dressing (don long sleeved jacket) at a mod indep. level by dc. Plan: DC pt. Discharge Comments: Percent of improvement is 90%. Quick dash score- 31. She has participated in 9 OT sessions. How many goals they met 4/4 goals. She has decreased sensation in L fingers. Pt. is hesitant with tasks that are challenging and then her tremors increase making the task more difficult. Pt. has an HEP. If there are questions or concerns regarding this patient's occupational therapy, please fell free to call me at [phone]. Thank you for the referral of this patient. Sincerely, Yasmin Flores, OTR/L, CHT
== END 2022-01-27 14:01 | disposition home or self-care (01) ==
LOC: OT 10:30
PROVIDERS: PCP Internal Medicine; Referring Provider Family Medicine Geriatric Medicine; Visit Provider Internal Medicine
DX: S93.401D Sprain of unspecified ligament of right ankle, subsequent encounter (principal)
CPT/HCPCS: 97110; 97162; 97164; 97165; 97166; 97530

== ENCOUNTER → 2022-07-01 | Outpatient (CLI) | payer MEDICARE, SELFPAY ==
[2022-07-01 12:09] LABS: Bacteria 0 SEEN /hpf (None Seen); Mucous, Urine 0 SEEN /hpf (<or=2+); Red Blood Cells-Urine 0 SEEN /hpf (0-5); White Blood Cells 0 SEEN /hpf (0-5)
[2022-07-01 12:26] LABS: Absolute Lymphocyte Count 2.85 X10^3/uL (0.83-4.51); Absolute Neutrophil Count 3.6 X10^3/uL (2.0-7.7); Basophil# 0.02 X10^3/uL; Basophil% 0.3 % (0-1); Eosinophil# 0.03 X10^3/uL; Eosinophils% 0.4 % (0-5); Hematocrit 36.3 % (37-47); Hemoglobin 11.6 g/dL (12.0-15.0); Lymphocyte # 2.85 X10^3/ul (0.83-4.51); Lymphocyte % 39.7 % (19-41); Mean Corpuscular Hgb 28.8 pg (27.0-32.0); Mean Corpuscular Volume 90.1 fL (81-99); Mean Platelet Vol. 9.9 fl (6.2-12.0); Monocyte# 0.55 X10^3/uL; Monocyte% 7.7 % (0-10); NRBC Flagged by Analyzer 0 % (0-5); Neutrophil # 3.62 X10^3/uL (2.7-7.7); Neutrophil % 50.4 % (47-70); Platelet Count 140 K/mm3 (150-450); RBC Distribution Width CV 13.9 % (11.6-14.6); RBC Distribution Width SD 45.2 fl (35.1-43.9); Red Blood Count 4.03 M/mm3 (4.2-5.4); White Blood Count 7.2 K/mm3 (4.4-11.0)
[2022-07-01 13:14] LABS: Vitamin D,25 Hydroxy 24.7 ng/mL
[2022-07-01 13:33] LABS: ALB/GLOB Ratio 0.6 RATIO (0.9-2.4); AST(SGOT) 17 U/L (15-37); Alanine Aminotransfer ALT/SGPT 7 U/L (13-56); Albumin, Serum 3.3 g/dL (3.2-5.0); Alkaline Phosphatase 45 U/L (45-117); Anion Gap 6 (5-15); BUN 16 mg/dL (7-18); BUN/Creat Ratio 21.3 RATIO (10-20); Calcium,Total 9.1 mg/dL (8.5-10.1); Chloride 104 mmol/L (98-107); Cholesterol 156 mg/dL (200); Creatinine, Serum 0.75 mg/dL (0.55-1.02); EST Glomerular Filtration Rate 81 mL/min (>60); Est Glom Filt Rate - Afr Amer 98 mL/min (>60); Globulin 5.7 g/dL (2.2-4.2); Glucose 114 mg/dL (74-106); High Density Lipoprotein 35 mg/dL; Potassium 4.8 mmol/L (3.5-5.1); Sodium Level 137 mmol/L (136-145); Thyroid Stim Hormone (TSH) 3.71 uIU/mL (0.358-3.74); Triglycerides 358 mg/dL; Very Low Density Lipoprotein 72 mg/dL (5-40)
[2022-07-01 14:03] LABS: Color, Urine Yellow (Yellow); Glucose, Dipstick Normal (Normal); Ketone-Dipstick 5 mg/dl (Negative); Leukocyte Esterase-Dipstick Negative /ul (Negative); Nitrite-Dipstick Negative (Negative); Occult Blood-Urine Negative /ul (Negative); Protein-Dipstick 100 mg/dl (Negative); Specific Gravity, Urine 1.015 (1.002-1.030); Urine Bilirubin Dipstick Negative (Negative); Urine Clarity Clear (Clear); Urine Urobilinogen Normal (Normal)
[2022-07-01 14:08] LABS: Squamous Epithelial Cells - UA 0-5 SEEN /hpf (5-10)
== END | disposition home or self-care (01) ==
LOC: LAB 12:06
PROVIDERS: PCP Internal Medicine; Referring Provider Internal Medicine; Visit Provider Internal Medicine
DX: I48.91 Unspecified atrial fibrillation (principal); E11.9 Type 2 diabetes mellitus without complications; E55.9 Vitamin D deficiency, unspecified; E78.5 Hyperlipidemia, unspecified
CPT/HCPCS: 36415; 80053; 80061; 81001; 82043; 82306; 82570; 84443; 85025

== ENCOUNTER 2022-07-15 12:28 | Outpatient (CLI) | payer MEDICARE, SELFPAY ==
[2022-07-20 12:08] LABS: PROEL- A/G Ratio 0.7 (0.7-1.7); PROEL- Albumin 3.5 g/dL (2.9-4.4); PROEL- Alpha-1 Globulin 0.2 g/dL (0.0-0.4); PROEL- Beta Globulin 1.2 g/dL (0.7-1.3); PROEL- Gamma Globulin 2.3 g/dL (0.4-1.8); PROEL- Globulin, Total 4.8 g/dL (2.2-3.9); PROEL- TOTAL PROTEIN 8.3 g/dL (6.0-8.5); PROELU- Albumin, Urine 64.1 % (.); PROELU- Alpha-1-Globulin,Ur 2.9 % (.); PROELU- Alpha-2-Globulin,Ur 4.1 % (.); PROELU- Beta Globulin, Ur 12.4 % (.); PROELU- Gamma Globulin, Ur 16.5 % (.)
== END 2022-07-15 23:59 | disposition home or self-care (01) ==
LOC: POLAB3 12:29
PROVIDERS: PCP Internal Medicine; Visit Provider Internal Medicine
DX: R77.1 Abnormality of globulin (principal)
CPT/HCPCS: 36415; 84165; 84166

== ENCOUNTER → 2022-08-17 | Outpatient (CLI) | payer MEDICARE, SELFPAY ==
--- NOTE | 2022-08-17 15:17 | VDLE_ITS ---
Reason For Study: Swelling RIGHT LEFT GSV is normal. GSV is normal. CFV is compressible, spontaneous, phasic, CFV is compressible, spontaneous, phasic, competent and demonstrates normal competent, and demonstrates normal augmentation. augmentation. FV is compressible, spontaneous, phasic, FV is compressible, spontaneous, phasic, competent and demonstrates normal competent and demonstrates normal augmentation. augmentation. POP V is compressible, spontaneous, phasic, POP V is compressible, spontaneous, phasic, competent and demonstrates normal competent and demonstrates normal augmentation. augmentation. T/P Trunk is compressible. T/P Trunk is compressible. PTV is compressible. PTV is compressible. RT PerV is compressible. LT PerV is compressible. Procedure This is a venous duplex using B-mode, color flow and spectral Doppler. Exam performed in department. The study was technically difficult. A preliminary report was called and/or faxed to [facility]. VL/Venous Duplex US - Mateo Extrem Interpretation Summary Deep veins of the bilateral lower extremities are patent and compressible segme ntally. There is no evidence of bilateral lower extremity deep vein thrombosis. The bilateral great saphenous veins appear patent and compressible segmentally. Ordering Physician: Cayden Giordano Referring Physician: Hannah Riggs M.D. Performed By: Dax Lee RVT
[2022-08-17 16:17] LABS: Absolute Neutrophil Count 4.5 X10^3/uL (2.0-7.7); Basophil# 0.02 X10^3/uL; Basophil% 0.2 % (0-1); Eosinophil# 0.03 X10^3/uL; Eosinophils% 0.3 % (0-5); Hematocrit 38.3 % (37-47); Hemoglobin 11.4 g/dL (12.0-15.0); Lymphocyte % 45.3 % (19-41); Mean Corp Hgb Conc 29.8 g/dL (32-36); Mean Corpuscular Hgb 27.6 pg (27.0-32.0); Mean Corpuscular Volume 92.7 fL (81-99); Mean Platelet Vol. 9.9 fl (6.2-12.0); Monocyte# 0.84 X10^3/uL; Monocyte% 8.5 % (0-10); NRBC Flagged by Analyzer 0 % (0-5); Neutrophil % 45.2 % (47-70); Platelet Count 155 K/mm3 (150-450); RBC Distribution Width CV 14.6 % (11.6-14.6); RBC Distribution Width SD 50.3 fl (35.1-43.9); Red Blood Count 4.13 M/mm3 (4.2-5.4); White Blood Count 9.9 K/mm3 (4.4-11.0)
[2022-08-17 17:16] LABS: ALB/GLOB Ratio 0.5 RATIO (0.9-2.4); AST(SGOT) 18 U/L (15-37); Alanine Aminotransfer ALT/SGPT < 6 U/L (13-56); Alkaline Phosphatase 50 U/L (45-117); Anion Gap 6 (5-15); BUN 20 mg/dL (7-18); BUN/Creat Ratio 17.9 RATIO (10-20); Calcium,Total 8.9 mg/dL (8.5-10.1); Chloride 104 mmol/L (98-107); Creatinine, Serum 1.12 mg/dL (0.55-1.02); EST Glomerular Filtration Rate 51 mL/min (>60); Erythrocyte Sedimentation Rate 101 mm/hr (0-30); Est Glom Filt Rate - Afr Amer 62 mL/min (>60); Globulin 5.9 g/dL (2.2-4.2); Glucose 110 mg/dL (74-106); Protein, Total 8.9 g/dL (6.4-8.2); Sodium Level 136 mmol/L (136-145); Uric Acid 10.2 mg/dL (2.6-6.0)
== END | disposition home or self-care (01) ==
PROVIDERS: PCP Internal Medicine; Referring Provider Podiatrist; Visit Provider Podiatrist
DX: R22.43 Localized swelling, mass and lump, lower limb, bilateral (principal); M79.671 Pain in right foot
CPT/HCPCS: 36415; 80053; 84550; 85025; 85652; 86140; 93970

== ENCOUNTER 2022-09-22 21:58 | Inpatient (IN) | payer MEDICARE, SELFPAY ==
[2022-09-22 21:59] VITALS: BP 157/75; PULSE 61; RESP 18; TEMP 36.8; O2SAT 97; BMI 29.1
--- NOTE | 2022-09-22 22:47 | RAD_ITS ---
STUDY: X-RAY - LEFT ANKLE REASON FOR EXAM: Female, 72 years old. Pain TECHNIQUE: 3 view(s) of the ankle. COMPARISON: None. FINDINGS: Normal visualized distal tibia and fibula. Spurring of the medial malleolus. Normal tibiotalar articulation and ankle mortise. Normal visualized talus. Plantar and dorsal spurs of the calcaneus. The visualized subtalar, talonavicular, calcaneocuboid and tarsal articulations are normal. There is no demonstrated fracture. There are vascular calcifications. There is soft tissue swelling. RAD/Ankle min 3 Views IMPRESSION: Degenerative changes of the ankle. Electronically Signed: Darrell Prado MD at 23:38 EST ,
--- NOTE | 2022-09-22 22:47 | CT_ITS ---
EXAM: CT HEAD WITHOUT INTRAVENOUS CONTRAST CLINICAL INDICATION: head injury TECHNIQUE: Multiple axial images were obtained of the head without intravenous contrast. This CT exam was performed using one or more of the following dose reduction techniques: automated exposure control, adjustment of the mA and/or kV according to patient size, and/or use of iterative reconstruction technique. This report was created using [employer] report generation technology. RADIATION DOSE: CTDIvol = 44.99 mGy, DLP = 829.85 mGy-cm. COMPARISON: 11/19/2021. FINDINGS: BRAIN AND EXTRA-AXIAL SPACES: Old right temporoparietal infarct. Moderate generalized atrophy. Moderate low density bilaterally in the deep white matter. No intra- or extra-axial hemorrhage. No intracranial mass or mass effect. Posterior fossa structures are unremarkable. No hydrocephalus. Basal cisterns are patent. BONES/JOINTS: Unremarkable. No discrete lytic or blastic abnormalities. SINUSES: Unremarkable as visualized. Clear. MASTOID AIR CELLS: Unremarkable. Clear. ORBITS: Visualized globes, extraocular muscles, optic nerves and retrobulbar fat appear unremarkable. CT/Brain/Head without Contrast IMPRESSION: 1. Old right temporoparietal infarct. 2. Moderate generalized atrophy. Moderate low density bilaterally in the deep white matter. This likely represents small vessel ischemic changes in the deep white matter. No change since previous exam. Electronically Signed: Martin Em MD at 0:04 EST ,
--- NOTE | 2022-09-22 22:47 | RAD_ITS ---
STUDY: X-RAY - PELVIS REASON FOR EXAM: Female, 72 years old. Pain TECHNIQUE: One view of the pelvis was obtained. COMPARISON: None. FINDINGS: There is a normal bowel gas pattern. There are atherosclerotic vascular calcifications of the pelvic arteries. Normal bilateral iliac wings, sacroiliac joints and visualized sacrum. Normal visualized bilateral superior and inferior pubic rami. Normal pubic symphysis. Normal ischial tuberosities. Normal visualized right femoral head. Normal right acetabulum. Normal right hip joint. Normal visualized left femoral head. Normal left acetabulum. Normal left hip joint. There is no acute fracture. RAD/Pelvis 1 or 2 Views IMPRESSION: No fracture seen. Electronically Signed: Darrell Prado MD at 23:39 EST ,
--- NOTE | 2022-09-22 22:47 | RAD_ITS ---
STUDY: X-RAY - BILATERAL RIBS WITH CHEST REASON FOR EXAM: Female, 72 years old. Pain TECHNIQUE - RIBS: 8 view(s) of the ribs. TECHNIQUE - CHEST: Single frontal view of the chest. COMPARISON: None. FINDINGS - RIBS : There is demineralization. There is healed right anterior eighth rib fracture. FINDINGS - CHEST: Dual-chamber pacemaker device on the left. The lungs are clear and expanded. There is no demonstrated pleural abnormality. There is mild cardiac enlargement. Normal mediastinum and jannette. Normal visualized pulmonary arteries. Normal visualized aortic arch and descending thoracic aorta. There is demineralization of the osseous structures. There is degenerative change of the spine. Normal visualized ribs, clavicles, and shoulders. There is no demonstrated abnormality of the visualized soft tissue structures of the upper abdomen. RAD/Ribs Mateo Min 4V w/PA Chest IMPRESSION: RIBS: Healed anterior eighth rib fracture. CHEST: Degenerative changes, as described above. No demonstrated acute cardiopulmonary process. Electronically Signed: Darrell Prado MD at 23:43 EST ,
--- NOTE | 2022-09-22 22:55 | EX.ED.DYSGE1 ---
HPI History of Present Illness Chief Complaint: Fall Narrative Narrative: Patient is a 72-year-old female from home with past medical history of diabetes hypertension hyperlipidemia subdural hematoma paroxysmal atrial fibrillation chronic kidney disease and debility. According to who she lives with and the patient's son who checks in on him frequently she has been becoming more and more weak. She can stand with assistance but cannot walk on her own. She lies in bed most days and recently has stopped eating and drinking. She is fallen multiple times at home because she is too weak for the to hold her up. They state that he was trying to help her earlier today when she could not hold her self and slid to the ground. states she did not hit her head or pass out but had her left leg bent in an awkward position and has been complaining of left ankle pain since that time. Son states however that with the frequent fall she has struck her head a few times. They deny any loss of conscious or bleeding disorder or blood thinner use but do report a past medical history of subdural hematoma. states that because the patient's not been eating or drinking he has not been providing her metformin for her diabetes. At this time the family is concerned that the patient needs more help than they can provide at home and are seeking intermediate placement. [facility] Medical History Atrial fibrillation Breakthrough seizure Chronic kidney disease (CKD) Dysuria Essential hypertension Former smoker HLD (hyperlipidemia) Hypertension Hypertensive emergency without congestive heart failure Hypertriglyceridemia Junctional rhythm Kidney disease Obesity Pacemaker Paroxysmal atrial fibrillation Right ankle sprain Seizure Seizures Septic shock Tachy-maurizio syndrome Type 2 diabetes mellitus Vaginal bleeding Home Medications simvastatin 40 mg tablet 40 mg PO QHS cholesterol 04/08/17 [History Last Taken 11/18/21] oxybutynin chloride 5 mg tablet,extended release 24 hr 10 mg PO QHS bladder 05/20/17 [History Last Taken 11/18/21] amlodipine 5 mg tablet 5 mg PO DAILY BP 10/06/17 [History Last Taken 11/18/21] alendronate 70 mg tablet 70 mg PO SA BONES 11/19/21 [History Last Taken 11/15/21] divalproex 500 mg tablet,extended release 24 hr (Depakote ER) 1,000 mg PO QHS Seizures 11/19/21 [History Last Taken 11/18/21] divalproex 500 mg tablet,extended release 24 hr (Depakote ER) 500 mg PO DAILY Seizures 11/19/21 [History Last Taken 11/19/21] lacosamide 100 mg tablet (Vimpat) 100 mg PO DAILY SEIZURES 11/19/21 [History Last Taken 11/19/21] metformin 500 mg tablet,extended release 24 hr 1,000 mg PO BID DM 11/19/21 [History Last Taken 11/18/21] pregabalin 100 mg capsule 100 mg PO BID Nerve Pain 11/19/21 [History Last Taken 11/18/21] sitagliptin phosphate 50 mg tablet (Januvia) 100 mg PO DAILY Diabetes 11/19/21 [History Last Taken 11/18/21] acetaminophen 500 mg tablet 1,000 mg PO Q6H PRN PRN Pain Score 1-10 #0 tabs 12/10/21 [Rx Last Taken Unknown] finerenone 20 mg tablet (Kerendia) 10 mg PO DAILY #0 tabs 12/10/21 [Rx Last Taken Unknown] lacosamide 100 mg tablet (Vimpat) 150 mg PO QHS #0 tabs 12/10/21 [Rx Last Taken Unknown] ramipril 10 mg capsule 10 mg PO DAILY BP #90 caps 01/27/22 [Rx Last Taken Unknown] mirtazapine 15 mg tablet 30 mg PO QHS 09/23/22 [History Last Taken Unknown] Allergy/AdvReac Type Severity Reaction Status Date / Time amoxicillin [From Augmentin] Allergy Rash Verified 09/03/22 13:43 clavulanic acid Allergy Rash Verified 09/03/22 13:43 [From Augmentin] escitalopram [From Lexapro] Allergy Rash Verified 09/03/22 13:43 shellfish derived Allergy Unknown Verified 09/03/22 13:43 hydroxychloroquine AdvReac Severe Unknown Verified 09/03/22 13:43 [From Plaquenil] house dust AdvReac NEEDS Verified 09/03/22 13:43 FOLLOW-UP perfume AdvReac Unknown Verified 09/03/22 13:43 pineapple AdvReac Rash Verified 09/03/22 13:43 quinine AdvReac Unknown Verified 09/03/22 13:43 strawberry AdvReac Rash Verified 09/03/22 13:43 Sulfa (Sulfonamide AdvReac Unknown Verified 09/03/22 13:43 Antibiotics) Family History Brother Heart disease Hx CABG Hypertension Diabetes Mother Hypertension Surgical History History of breast surgery History of hysterectomy History of permanent cardiac pacemaker placement (11/15/17) Social History household members: spouse Smoking Status: Never smoker alcohol intake: never substance use type: does not use caffeine: No what type of physical activity do you participate in: none seatbelt use: always do you feel safe at home: Yes ROS ROS ED Constitutional Constitutional ED: Denies chills or fever(s) Eyes Eyes: Denies change in vision ENT ENT ED: Denies sore throat Cardiovascular Cardiovascular: Denies chest pain or palpitations Respiratory/Chest Respiratory/Chest: Denies cough or dyspnea Gastrointestinal Gastrointestinal: Denies abdominal pain, diarrhea, nausea or vomiting Genitourinary Genitourinary ED: Denies dysuria or hematuria Musculoskeletal Musculoskeletal: Denies myalgias Integumentary Denies rash Neurologic Neurologic: Reports weakness; Denies headache(s) Hematologic/Lymphatic Hematologic/Lymphatic: Denies easy bleeding or easy bruising EXAM Physical Exam Const Vital Signs: 09/22/22 21:59 09/22/22 22:49 Temperature 98.2 F Temperature Source Temporal Pulse Rate 61 Respiratory Rate 18 Respiratory Effort Normal Respiratory Depth Normal Respiratory Pattern Normal Blood Pressure 157/75 H Blood Pressure Mean 102 Pulse Ox 97 Oxygen Delivery Method Room Air Positive well nourished and well developed General Appearance ED: well developed HEENT Reports moist mucous membranes HEENT Narrative: Normocephalic atraumatic No signs of depressed or basilar skull fracture Eyes PERRL and EOMs intact bilaterally Neck supple Neck Narrative: No bony deformity or step-off of the cervical spine no midline pain on palpation Chest Wall Chest Narrative: Patient has bilateral anterior lateral chest wall pain on palpation without bony deformity or crepitance Resp normal respiratory effort and clear to auscultation bilaterally Resp Narrative: Breath sounds are diminished throughout but overall clear to auscultation with no signs of distress Cardio regular rate and regular rhythm Rate: other Other Details: Radial pulses are equal and symmetric GI non-tender and non-distended GI Narrative: Abdomen is soft nontender nondistended with hypoactive bowel sounds no voluntary guarding or rigidity no pulsatile mass Auscultation: hypoactive bowel sounds Palpation: soft Back/Spine Back/Spine Narrative: No bony deformity or step-off of the thoracic or lumbar spine no midline pain on palpation Extremity Extremity Narrative: Patient has mild soft tissue swelling of the left lateral malleolus with pain on palpation at the site. Ankle ligaments are stable and Achilles tendon is intact. Ankle range of motion is decreased secondary to pain. The pelvis is stable there is no shortening or external rotation of either lower extremity. There appears to be mild pain to palpation along the left hip/greater trochanter region. No pain in the inguinal region over top the pubic rami. Patient is able to lift both upper extremities without difficulty. Neuro oriented x3 and CN's II-XII intact bilaterally Neuro Narrative: Strength is plus 4 out of 5 in the upper extremities and 2/5 in the bilateral lower extremity Sensorium / Orientation: alert Psych Psych Narrative: Patient has a flat affect Skin Skin Narrative: Patient has skin breakdown in the left section of the abdomen underneath the pannus without secondary changes to suggest infection MDM MDM MDM Narrative Medical decision making narrative: Patient presented to the ER with stable vitals and no focal neurologic deficits but just generalized weakness. With her report from family it is clear that she requires more help than they can provide at home. Therefore this is not a simple I was weak and fell and rolled my ankle presentation. With concern that patient will need to be placed in a intermediate a basic work-up was obtained. Labs revealed no clinically significant findings. The patient's urine shows trace bacteria with nitrite positive and leukocyte esterase but she has no symptoms and therefore culture will be sent and we will hold antibiotics until culture results as she is asymptomatic afebrile and has no lab changes of leukocytosis. The patient's imaging studies revealed no acute traumatic changes either. The plan of care was discussed with family and patient. Both are agreeable to placement at this time secondary to her progressing generalized weakness and need for further care. Secondary to this medicine was contacted and they do agree to admit the patient at this time in hopes of a PT/OT consult and possible social work consult for potential placement Lab Data Attestation: I reviewed the patient's lab results. Labs: Laboratory Results - last 24 hr 09/22/22 09/22/22 09/22/22 23:04 23:04 23:04 WBC 4.9 RBC 3.76 L Hgb 10.8 L Hct 34.4 L MCV 91.5 MCH 28.7 MCHC 31.4 L RDW Std Deviation 53.7 H RDW Coeff of Ernesto 16.2 H Plt Count 102 L MPV 9.3 Immature Gran % (Auto) 0.600 Neut % (Auto) 41.8 L Lymph % (Auto) 47.1 H [place] % (Auto) 9.1 Eos % (Auto) 1.0 Baso % (Auto) 0.4 Absolute Neuts (auto) 2.0 Absolute Lymphs (auto) 2.29 Nucleated RBC % 0 Sodium 144 Potassium 4.3 Chloride 108 H Carbon Dioxide 31.0 Anion Gap 5 BUN 16 Creatinine 1.30 H Estim Creat Clear Calc 31.85 Est GFR (MDRD) Af Amer 52 L Est GFR (MDRD) Non-Af 43 L BUN/Creatinine Ratio 12.3 Glucose 142 H Calcium 9.1 Magnesium 1.5 L Total Bilirubin 0.20 Direct Bilirubin 0.06 AST 26 ALT < 6 L Alkaline Phosphatase 47 Total Creatine Kinase 53 Total Protein 7.8 Albumin 2.8 L Globulin 5.0 H Urine Color Urine Clarity Urine pH Ur Specific [place] Urine Protein Urine Glucose (UA) Urine Ketones Urine Occult Blood Urine Nitrite Urine Bilirubin Urine Urobilinogen Ur Leukocyte Esterase Urine RBC Urine WBC Ur Squamous Epith Cells Urine Bacteria Urine Mucus Valproic Acid 92 09/22/22 23:56 WBC RBC Hgb Hct MCV MCH MCHC RDW Std Deviation RDW Coeff of Ernesto Plt Count MPV Immature Gran % (Auto) Neut % (Auto) Lymph % (Auto) [place] % (Auto) Eos % (Auto) Baso % (Auto) Absolute Neuts (auto) Absolute Lymphs (auto) Nucleated RBC % Sodium Potassium Chloride Carbon Dioxide Anion Gap BUN Creatinine Estim Creat Clear Calc Est GFR (MDRD) Af Amer Est GFR (MDRD) Non-Af BUN/Creatinine Ratio Glucose Calcium Magnesium Total Bilirubin Direct Bilirubin AST ALT Alkaline Phosphatase Total Creatine Kinase Total Protein Albumin Globulin Urine Color Yellow Urine Clarity Clear Urine pH 7.0 Ur Specific [place] 1.005 Urine Protein 100 H Urine Glucose (UA) Normal Urine Ketones Negative Urine Occult Blood 50 H Urine Nitrite Positive H Urine Bilirubin Negative Urine Urobilinogen Normal Ur Leukocyte Esterase 500 H Urine RBC 0 SEEN Urine WBC 0-5 SEEN Ur Squamous Epith Cells 0 SEEN Urine Bacteria RARE Urine Mucus 0 SEEN Valproic Acid Radiography Diagnostic Testing: Clinical Impression(s) from Imaging Studies Ankle X-Ray 09/22/22 22:47 IMPRESSION: Degenerative changes of the ankle. Electronically Signed: Darrell Prado MD at 23:38 EST , Brain CT 09/22/22 22:47 IMPRESSION: 1. Old right temporoparietal infarct. 2. Moderate generalized atrophy. Moderate low density bilaterally in the deep white matter. This likely represents small vessel ischemic changes in the deep white matter. No change since previous exam. Electronically Signed: Martin Em MD at 0:04 EST , Pelvis X-Ray 09/22/22 22:47 IMPRESSION: No fracture seen. Electronically Signed: Darrell Prado MD at 23:39 EST Reading Location ID and State: [facility] / [place] , Service support , Ribs w/Chest X-Ray 09/22/22 22:47 IMPRESSION: RIBS: Healed anterior eighth rib fracture. CHEST: Degenerative changes, as described above. No demonstrated acute cardiopulmonary process. Electronically Signed: Darrell Prado MD at 23:43 EST , Bilateral rib x-ray 1 view chest as interpreted by the emergency medicine physician reveals a healed right eighth rib fracture but otherwise no acute infiltrate pneumothorax pleural effusion or acute fractures Left ankle x-rays interpreted by the emergency medicine physician reveals no acute fracture dislocation or joint effusion Pelvis x-ray as interpreted by the emergency medicine physician reveals degenerative changes without acute fracture or dislocation Discharge Plan Dx/Rx/DC Orders Clinical Impression: Debility, Paroxysmal atrial fibrillation, Type 2 diabetes mellitus, Hypertension, Adult failure to thrive Disposition Disposition: Acute Care Hospital [facility] Discharge Date/Time: 09/23/22 03:24
[2022-09-22] MEDS: 0.9% Normal Saline 1,000 ML 150 ML IV (23:06)
[2022-09-22 23:11] LABS: Absolute Lymphocyte Count 2.29 X10^3/uL (0.83-4.51); Basophil# 0.02 X10^3/uL; Basophil% 0.4 % (0-1); Eosinophil# 0.05 X10^3/uL; Hematocrit 34.4 % (37-47); Hemoglobin 10.8 g/dL (12.0-15.0); Lymphocyte # 2.29 X10^3/ul (0.83-4.51); Lymphocyte % 47.1 % (19-41); Mean Corp Hgb Conc 31.4 g/dL (32-36); Mean Corpuscular Hgb 28.7 pg (27.0-32.0); Mean Corpuscular Volume 91.5 fL (81-99); Mean Platelet Vol. 9.3 fl (6.2-12.0); Monocyte# 0.44 X10^3/uL; Monocyte% 9.1 % (0-10); NRBC Flagged by Analyzer 0 % (0-5); Neutrophil # 2.03 X10^3/uL (2.7-7.7); Neutrophil % 41.8 % (47-70); Platelet Count 102 K/mm3 (150-450); RBC Distribution Width CV 16.2 % (11.6-14.6); RBC Distribution Width SD 53.7 fl (35.1-43.9); Red Blood Count 3.76 M/mm3 (4.2-5.4); White Blood Count 4.9 K/mm3 (4.4-11.0)
[2022-09-22 23:35] LABS: AST(SGOT) 26 U/L (15-37); Alanine Aminotransfer ALT/SGPT < 6 U/L (13-56); Albumin, Serum 2.8 g/dL (3.2-5.0); Alkaline Phosphatase 47 U/L (45-117); Anion Gap 5 (5-15); BUN 16 mg/dL (7-18); BUN/Creat Ratio 12.3 RATIO (10-20); Bilirubin, Direct 0.06 mg/dL (0.00-0.30); CPK Total, Creatine Kinase 53 U/L (26-192); Calcium,Total 9.1 mg/dL (8.5-10.1); Chloride 108 mmol/L (98-107); EST Glomerular Filtration Rate 43 mL/min (>60); Est Glom Filt Rate - Afr Amer 52 mL/min (>60); Estimated Creatinine Clearance 31.85 ml/min; Glucose 142 mg/dL (74-106); Magnesium 1.5 mg/dL (1.6-2.6); Potassium 4.3 mmol/L (3.5-5.1); Protein, Total 7.8 g/dL (6.4-8.2); Sodium Level 144 mmol/L (136-145)
[2022-09-22 23:36] LABS: Valproic Acid (Depakene) Level 92 ug/mL (50-100)
[2022-09-23] LABS: Mucous, Urine 0 SEEN /hpf (<or=2+); Red Blood Cells-Urine 0 SEEN /hpf (0-5); Squamous Epithelial Cells - UA 0 SEEN /hpf (5-10)
[2022-09-23 00:02] LABS: Color, Urine Yellow (Yellow); Glucose, Dipstick Normal (Normal); Ketone-Dipstick Negative (Negative); Leukocyte Esterase-Dipstick 500 /ul (Negative); Nitrite-Dipstick Positive (Negative); Occult Blood-Urine 50 /ul (Negative); Protein-Dipstick 100 mg/dl (Negative); Specific Gravity, Urine 1.005 (1.002-1.030); Urine Bilirubin Dipstick Negative (Negative); Urine Clarity Clear (Clear); Urine Urobilinogen Normal (Normal)
[2022-09-23 00:21] LABS: Bacteria RARE /hpf (None Seen); White Blood Cells 0-5 SEEN /hpf (0-5)
[2022-09-23 02:33] VITALS: BP 121/75; PULSE 72; RESP 18; TEMP 36.7
[2022-09-23 02:57] LABS: Procalcitonin 0.07 ng/mL (0.00-0.09)
--- NOTE | 2022-09-23 03:32 | HP.PCM.HOS_ITS ---
HPI - General General Date of Admission: 09/23/22 Date of Service: 09/23/22 Chief Complaint: Debility, weakness, frequent falls. HPI Narrative The patient is a 72 y/o F w/ PMHx: CKD stage II-III per review of records, Chronic normocytic anemia, Anxiety and Depression, Seizure disorder, Tachy-maurizio syndrome s/p pacemaker, HTN, HLD, PAF, Diabetes mellitus type II with neuropathy, Obesity who presents to the [facility] ED on 09/23/22 with progressively worsening weakness over the last several weeks, more prounced over the last several days with frequent falls, decreased oral intake with inability for her to properly and safely take care of her as she nearly requires complete care and physically lifted for all movement prompting ED evaluation. She has no recent illness, no recent fever or chills nor any recent urinary symptoms. Work- up in the ED included T98.2, heart rate 61, BP 157/75, respiratory rate 18, 97% on room air, CBC with WC 4.9, hemoglobin 10.8, platelet 102 without marked shift, CMP with chloride 108, BUN/creatinine 16/1.30, glucose 142, magnesium 1.5, hepatic profile not marked appearing, total creatinine kinase 53, urinalysis with specific gravity 1.005, protein 100, occult blood 50, positive nitrite, leukocyte Estrace 500, urine WBC 0-5 with rare urine bacteria noted, valproic acid level 92, plain film of the left ankle with degenerative changes, plain film of the pelvis with no acute fracture demonstrated, plain film of the bilateral of ribs and chest with evidence of a healed anterior eighth rib fractu re and degenerative changes with no acute cardiopulmonary findings, 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 In the ED patient ministered normal saline maintenance IV fluids. [facility] Medical History Atrial fibrillation Breakthrough seizure Chronic kidney disease (CKD) Dysuria Essential hypertension Former smoker HLD (hyperlipidemia) Hypertension Hypertensive emergency without congestive heart failure Hypertriglyceridemia Junctional rhythm Kidney disease Obesity Pacemaker Paroxysmal atrial fibrillation Right ankle sprain Seizure Seizures Septic shock Tachy-maurizio syndrome Type 2 diabetes mellitus Vaginal bleeding Home Medications simvastatin 40 mg tablet 40 mg PO QHS cholesterol 04/08/17 [History Last Taken 11/18/21] oxybutynin chloride 5 mg tablet,extended release 24 hr 10 mg PO QHS bladder 05/20/17 [History Last Taken 11/18/21] amlodipine 5 mg tablet 5 mg PO DAILY BP 10/06/17 [History Last Taken 11/18/21] alendronate 70 mg tablet 70 mg PO SA BONES 11/19/21 [History Last Taken 11/15/21] divalproex 500 mg tablet,extended release 24 hr (Depakote ER) 1,000 mg PO QHS Se izures 11/19/21 [History Last Taken 11/18/21] divalproex 500 mg tablet,extended release 24 hr (Depakote ER) 500 mg PO DAILY Seizures 11/19/21 [History Last Taken 11/19/21] lacosamide 100 mg tablet (Vimpat) 100 mg PO DAILY SEIZURES 11/19/21 [History Last Taken 11/19/21] metformin 500 mg tablet,extended release 24 hr 1,000 mg PO BID DM 11/19/21 [History Last Taken 11/18/21] pregabalin 100 mg capsule 100 mg PO BID Nerve Pain 11/19/21 [History Last Taken 11/18/21] sitagliptin phosphate 50 mg tablet (Januvia) 100 mg PO DAILY Diabetes 11/19/21 [History Last Taken 11/18/21] acetaminophen 500 mg tablet 1,000 mg PO Q6H PRN PRN Pain Score 1-10 #0 tabs 12/10/21 [Rx Last Taken Unknown] finerenone 20 mg tablet (Kerendia) 10 mg PO DAILY #0 tabs 12/10/21 [Rx Last Taken Unknown] lacosamide 100 mg tablet (Vimpat) 150 mg PO QHS #0 tabs 12/10/21 [Rx Last Taken Unknown] ramipril 10 mg capsule 10 mg PO DAILY BP #90 caps 01/27/22 [Rx Last Taken Unknown] mirtazapine 15 mg tablet 30 mg PO QHS 09/23/22 [History Last Taken Unknown] Allergy/AdvReac Type Severity Reaction Status Date / Time amoxicillin [From Augmentin] Allergy Rash Verified 09/03/22 13:43 clavulanic acid Allergy Rash Verified 09/03/22 13:43 [From Augmentin] escitalopram [From Lexapro] Allergy Rash Verified 09/03/22 13:43 shellfish derived Allergy Unknown Verified 09/03/22 13:43 hydroxychloroquine AdvReac Severe Unknown Verified 09/03/22 13:43 [From Plaquenil] house dust AdvReac NEEDS Verified 09/03/22 13:43 FOLLOW-UP perfume AdvReac Unknown Verified 09/03/22 13:43 pineapple AdvReac Rash Verified 09/03/22 13:43 quinine AdvReac Unknown Verified 09/03/22 13:43 strawberry AdvReac Rash Verified 09/03/22 13:43 Sulfa (Sulfonamide AdvReac Unknown Verified 09/03/22 13:43 Antibiotics) Family History Brother Heart disease Hx CABG Hypertension Diabetes Mother Hypertension Surgical History History of breast surgery History of hysterectomy History of permanent cardiac pacemaker placement (11/15/17) Social History household members: spouse Smoking Status: Never smoker alcohol intake: never substance use type: does not use caffeine: No what type of physical activity do you participate in: none seatbelt use: always do you feel safe at home: Yes ROS ROS Narrative Admission Review of Systems: CONSTITUTIONAL: No weight loss, fever, chills, + weakness or fatigue. HEENT: Eyes: No visual loss, blurred vision, double vision or yellow sclerae. Ears, Nose, Throat: No hearing loss, sneezing, congestion, runny nose or sore throat. SKIN: No rash or itching, lesions, wounds. CARDIOVASCULAR: No chest pain, chest pressure or chest discomfort, palpitations, edema, orthopnea, syncopal events. RESPIRATORY: No shortness of breath, cough or sputum, wheezing, hemoptysis. GASTROINTESTINAL: + anorexia, No nausea, vomiting or diarrhea, abdominal pain, melena, BRBPR. GENITOURINARY: No dysuria, frequency, urgency or retention. NEUROLOGICAL: + Generalized weakness, fatigue, debility, falls, seizure disorder, No headache, dizziness, syncope, paralysis, ataxia, numbness or tingling in the extremities, focal weakness, change in bowel or bladder control. MUSCULOSKELETAL: + muscle, back pain, joint pain or stiffness. HEMATOLOGIC: + anemia, bleeding or bruising. LYMPHATICS: No enlarged nodes. No history of splenectomy. PSYCHIATRIC: + history of depression or anxiety. ENDOCRINOLOGIC: No reports of sweating, cold or heat intolerance. No polyuria or polydipsia. ALLERGIES: No history of asthma, hives, eczema or rhinitis. Vital Signs Vital Signs Vital Signs: 09/22/22 21:59 09/22/22 22:49 Temperature 98.2 F Temperature Source Temporal Pulse Rate 61 Respiratory Rate 18 Respiratory Effort Normal Respiratory Depth Normal Respiratory Pattern Normal Blood Pressure 157/75 H Blood Pressure Mean 102 Pulse Ox 97 Oxygen Delivery Method Room Air Weight Weight: 159 lb 6.307 oz Body Mass Index (BMI) 29.1 Physical Exam Narrative Physical Examination: General: Awake, alert, oriented to self, place and recent events, soft spoken, fatigued which is chronic has been noted secondary to her seizure medications, no acute complaints. Skin: Normal color, normal turgor, no icterus, no cyanosis except occasional staged ecchymoses likely secondary recent falls. HEENT: AT/NC, EOMI, PERRLA, moderately dry MM, no carotid bruits or JVD noted. Lungs: Diminished, greater bases, appropriate effort, no rales, ronchi or wheezing. Heart: Currently regular rate and rhythm; no gallop, rub audible. Abdomen: Soft, obese, NTTP, ND, distant normal BS, no HSM. Extremities: No cyanosis, clubbing, or edema. Neurological: Patient awake, alert, oriented as noted, cognitive function is chronically decline secondary to significant seizure medication history and patient appears chronically currently baseline intact; pupils equally reactive to light and accommodation, cranial nerves grossly normal, moving all 4 extremities, no focal deficits, strength moderately to severely global decreased Psychiatric: Affect appears flat, fatigued, no acute evidence of depressive or a nxiety feelings. Results Lab / Micro Data Result Diagrams: 09/22/22 23:04 09/22/22 23:04 Labs: Laboratory Results - last 24 hr 09/22/22 23:04: WBC 4.9, RBC 3.76 L, Hgb 10.8 L, Hct 34.4 L, MCV 91.5, MCH 28.7, MCHC 31.4 L, RDW Std Deviation 53.7 H, RDW Coeff of Ernesto 16.2 H, Plt Count 102 L, MPV 9.3, Immature Gran % (Auto) 0.600, Neut % (Auto) 41.8 L, Lymph % (Auto) 47.1 H, [place] % (Auto) 9.1, Eos % (Auto) 1.0, Baso % (Auto) 0.4, Absolute Neuts (auto) 2.0, Absolute Lymphs (auto) 2.29, Nucleated RBC % 0 09/22/22 23:04: Sodium 144, Potassium 4.3, Chloride 108 H, Carbon Dioxide 31.0, Anion Gap 5, BUN 16, Creatinine 1.30 H, Estim Creat Clear Calc 31.85, Est GFR (MDRD) Af Amer 52 L, Est GFR (MDRD) Non-Af 43 L, BUN/Creatinine Ratio 12.3, Glucose 142 H, Calcium 9.1, Magnesium 1.5 L, Total Bilirubin 0.20, Direct Bilirubin 0.06, AST 26, ALT < 6 L, Alkaline Phosphatase 47, Total Creatine Kinase 53, Total Protein 7.8, Albumin 2.8 L, Globulin 5.0 H 09/22/22 23:04: Valproic Acid 92 09/22/22 23:56: Urine Color Yellow, Urine Clarity Clear, Urine pH 7.0, Ur Specific Scalf 1.005, Urine Protein 100 H, Urine Glucose (UA) Normal, Urine Ketones Negative, Urine Occult Blood 50 H, Urine Nitrite Positive H, Urine Bilirubin Negative, Urine Urobilinogen Normal, Ur Leukocyte Esterase 500 H, Urine RBC 0 SEEN, Urine WBC 0-5 SEEN, Ur Squamous Epith Cells 0 SEEN, Urine Bacteria RARE, Urine Mucus 0 SEEN Radiology Impression Ankle X-Ray 09/22/22 22:47 IMPRESSION: Degenerative changes of the ankle. Electronically Signed: Darrell Prado MD at 23:38 EST , Pelvis X-Ray 09/22/22 22:47 IMPRESSION: No fracture seen. Electronically Signed: Darrell Prado MD at 23:39 EST , Ribs w/Chest X-Ray 09/22/22 22:47 IMPRESSION: RIBS: Healed anterior eighth rib fracture. CHEST: Degenerative changes, as described above. No demonstrated acute cardiopulmonary process. Electronically Signed: Darrell Prado MD at 23:43 EST Reading Location ID and State: [address] [place] [address] , Service support , Assessment & Plan Assessment/Plan (1) Adult failure to thrive: PLAN: Plan The patient is a 71 y/o F w/ PMHx: CKD stage II-III per review of records, Chronic normocytic anemia, Anxiety and Depression, Seizure disorder, Tachy-maurizio syndrome s/p pacemaker, HTN, HLD, PAF, Diabetes mellitus type II with neuropathy, Obesity who presents to the [facility] ED on 09/23/22 with progressively worsening weakness over the last several weeks, more prounced over the last several days with frequent falls, decreased oral intake with inability for her to properly and safely take care of her as she nearly requires complete care and physically lifted for all movement prompting ED evaluation. #1. Adult FTT with progressively worsening weakness, debility: We will admit to the medical surgical floor, maintain fall and aspiration precautions, will request nutrition involvement given significant recent decreased oral intake over the last several days to weeks, urinalysis does not have any marked bacteria and patient has no symptoms therefore urine cultures pending at this time and will opt to defer initial antibiotic therapy pending these results, will request procalcitonin however to be cautious, will request PT/OT/case management consultation for discharge planning as patient at this point would require skilled facility placement. #2. Chronic normocytic anemia: Admission hemoglobin 10.8, prior baseline appears 10-11, stable, continue to trend, continue supplements. #3. Chronic Kidney Disease Stage II-III per review of records, unclear exact stage: Admission BUN/Cr 16/1.30, baseline renal function primarily 0.8-1.1 most recently noted 08/17/2022, repeat BMP in AM. #4. Hypertension: Continue home regimen including ACEI, amlodipine with hold parameters as needed, PRN hydralazine. #5. Hyperlipidemia: We will continue patient on statin therapy. #6. Tachybradycardia syndrome: Status post pacemaker placement, encourage continued outpatient follow-up with cardiology as previously arranged. #7. PAF: Status post pacemaker, not anticoagulated and not on any rate or rhythm agent #8. Seizure disorder: We will continue patient significant antiepileptic regimen including Vimpat, Kerendia, Depakote. #9. Anxiety and depression: We will continue patient home mirtazapine regimen #10. Diabetes mellitus type II w/ chronic neuropathy: Will hold oral home regimen, ADA diet, accu checks w/ ISS, continue patient home pregabalin regimen. #11. Obesity: Weight loss and lifestyle changes encouraged. #12. DVT prophylaxis: SCDs, Lovenox. #13. CODE STATUS: Patient HCPOA is her who is present, living will is not in place. Discussed CODE status at length including difference between FULL code, DNR-CCA and DNR-CC status. Following discussions about the differences in these status, requested Full Code status. Advanced Care Planning Face to Face Time: 16 minutes. Admission Evaluation Time spent evaluating chart, patient history, patient alycia luation, care planning and discussion with specialists: 60 minutes. Charges/Coding Visit Charges Inpatient E&M: 67772 Init Hosp L2 Procedures Hospitalists Procedures: 88897 Advncd Care Plan 30 Min
[2022-09-23 03:40] VITALS: BP 151/85; PULSE 62; RESP 16; TEMP 37.1; O2SAT 96
[2022-09-23 03:54] VITALS: BMI 28.3
[2022-09-23] MEDS: 0.9% Normal Saline 1,000 ML 125 ML IV (04:04)
[2022-09-23 06:29] LABS: Absolute Lymphocyte Count 2.56 X10^3/uL (0.83-4.51); Absolute Neutrophil Count 2.1 X10^3/uL (2.0-7.7); Basophil# 0.02 X10^3/uL; Basophil% 0.4 % (0-1); Eosinophil# 0.07 X10^3/uL; Eosinophils% 1.3 % (0-5); Hematocrit 32.6 % (37-47); Hemoglobin 9.8 g/dL (12.0-15.0); Lymphocyte # 2.56 X10^3/ul (0.83-4.51); Lymphocyte % 48.1 % (19-41); Mean Corp Hgb Conc 30.1 g/dL (32-36); Mean Corpuscular Hgb 28.4 pg (27.0-32.0); Mean Corpuscular Volume 94.5 fL (81-99); Mean Platelet Vol. 10.1 fl (6.2-12.0); Monocyte# 0.49 X10^3/uL; Monocyte% 9.2 % (0-10); NRBC Flagged by Analyzer 0 % (0-5); Neutrophil # 2.14 X10^3/uL (2.7-7.7); Neutrophil % 40.2 % (47-70); Platelet Count 107 K/mm3 (150-450); RBC Distribution Width CV 16.2 % (11.6-14.6); RBC Distribution Width SD 55.8 fl (35.1-43.9); Red Blood Count 3.45 M/mm3 (4.2-5.4); White Blood Count 5.3 K/mm3 (4.4-11.0)
[2022-09-23 06:50] LABS: Bedside Glucose 127 mg/dL (74-106)
[2022-09-23 07:07] LABS: ALB/GLOB Ratio 0.6 RATIO (0.9-2.4); AST(SGOT) 26 U/L (15-37); Alanine Aminotransfer ALT/SGPT < 6 U/L (13-56); Albumin, Serum 2.6 g/dL (3.2-5.0); Alkaline Phosphatase 46 U/L (45-117); Anion Gap 5 (5-15); BUN 19 mg/dL (7-18); BUN/Creat Ratio 17.6 RATIO (10-20); Calcium,Total 8.8 mg/dL (8.5-10.1); Chloride 109 mmol/L (98-107); Creatinine, Serum 1.08 mg/dL (0.55-1.02); EST Glomerular Filtration Rate 53 mL/min (>60); Est Glom Filt Rate - Afr Amer 64 mL/min (>60); Estimated Creatinine Clearance 38.34 ml/min; Globulin 4.7 g/dL (2.2-4.2); Glucose 139 mg/dL (74-106); Protein, Total 7.3 g/dL (6.4-8.2); Sodium Level 143 mmol/L (136-145)
[2022-09-23 07:40] VITALS: O2SAT 89
--- NOTE | 2022-09-23 09:26 | PN.HOSP_ITS ---
Subjective Subjective Follow-up adult failure to thrive Patient is a 71-year-old lady admitted following a fall. An assessment of adult failure to thrive made admitted to the regular nursing floor for further management Objective Data Objective Data Vital Signs: Vital Signs Temp Pulse Resp BP Pulse Ox O2 Del Method O2 Flow Rate 98.7 F 62 16 151/85 H 89 Nasal Cannula 2 09/23/22 03:40 09/23/22 03:40 09/23/22 03:40 09/23/22 03:40 09/23/22 07:40 09/23/22 08:00 09/23/22 08:00 Oxygen Flow Rate (L/min) 2 Oxygen Delivery Method Nasal Cannula Weight: 70.1 kg Body Mass Index (BMI) 28.3 Intake & Output: Intake and Output for Last 24 Hours 09/21/22 09/22/22 09/23/22 23:59 23:59 23:59 Intake Total 745 / 745 Balance 745 / 745 Lab / Micro Data Result Diagrams: 09/23/22 04:55 09/23/22 04:55 Labs: Laboratory Results - last 24 hr 09/22/22 23:04: WBC 4.9, RBC 3.76 L, Hgb 10.8 L, Hct 34.4 L, MCV 91.5, MCH 28.7, MCHC 31.4 L, RDW Std Deviation 53.7 H, RDW Coeff of Ernesto 16.2 H, Plt Count 102 L, MPV 9.3, Immature Gran % (Auto) 0.600, Neut % (Auto) 41.8 L, Lymph % (Auto) 47.1 H, [place] % (Auto) 9.1, Eos % (Auto) 1.0, Baso % (Auto) 0.4, Absolute Neuts (auto) 2.0, Absolute Lymphs (auto) 2.29, Nucleated RBC % 0 09/22/22 23:04: Sodium 144, Potassium 4.3, Chloride 108 H, Carbon Dioxide 31.0, Anion Gap 5, BUN 16, Creatinine 1.30 H, Estim Creat Clear Calc 31.85, Est GFR (MDRD) Af Amer 52 L, Est GFR (MDRD) Non-Af 43 L, BUN/Creatinine Ratio 12.3, Glucose 142 H, Calcium 9.1, Magnesium 1.5 L, Total Bilirubin 0.20, Direct Bilirubin 0.06, AST 26, ALT < 6 L, Alkaline Phosphatase 47, Total Creatine Kinase 53, Total Protein 7.8, Albumin 2.8 L, Globulin 5.0 H 09/22/22 23:04: Valproic Acid 92 09/22/22 23:56: Urine Color Yellow, Urine Clarity Clear, Urine pH 7.0, Ur Specific [place] 1.005, Urine Protein 100 H, Urine Glucose (UA) Normal, Urine Ketones Negative, Urine Occult Blood 50 H, Urine Nitrite Positive H, Urine Bilirubin Negative, Urine Urobilinogen Normal, Ur Leukocyte Esterase 500 H, Urine RBC 0 SEEN, Urine WBC 0-5 SEEN, Ur Squamous Epith Cells 0 SEEN, Urine Bacteria RARE, Urine Mucus 0 SEEN 09/23/22 02:17: Procalcitonin 0.07 09/23/22 04:55: WBC 5.3, RBC 3.45 L, Hgb 9.8 L, Hct 32.6 L, MCV 94.5, MCH 28.4, MCHC 30.1 L, RDW Std Deviation 55.8 H, RDW Coeff of Ernesto 16.2 H, Plt Count 107 L, MPV 10.1, Immature Gran % (Auto) 0.800, Neut % (Auto) 40.2 L, Lymph % (Auto) 48.1 H, [place] % (Auto) 9.2, Eos % (Auto) 1.3, Baso % (Auto) 0.4, Absolute Neuts (auto) 2.1, Absolute Lymphs (auto) 2.56, Nucleated RBC % 0 09/23/22 04:55: Sodium 143, Potassium 4.0, Chloride 109 H, Carbon Dioxide 29.0, Anion Gap 5, BUN 19 H, Creatinine 1.08 H, Estim Creat Clear Calc 38.34, Est GFR (MDRD) Af Amer 64, Est GFR (MDRD) Non-Af 53 L, BUN/Creatinine Ratio 17.6, Glucose 139 H, Calcium 8.8, Total Bilirubin 0.30, AST 26, ALT < 6 L, Alkaline Phosphatase 46, Total Protein 7.3, Albumin 2.6 L, Globulin 4.7 H, Albumin/Globulin Ratio 0.6 L 09/23/22 06:23: POC Glucose 127 H Radiography Diagnostic Testing: Radiology Impression Ankle X-Ray 09/22/22 22:47 IMPRESSION: Degenerative changes of the ankle. Electronically Signed: Darrell Prado MD at 23:38 EST , Brain CT 09/22/22 22:47 IMPRESSION: 1. Old right temporoparietal infarct. 2. Moderate generalized atrophy. Moderate low density bilaterally in the deep white matter. This likely represents small vessel ischemic changes in the deep white matter. No change since previous exam. Electronically Signed: Martin Em MD at 0:04 EST , Pelvis X-Ray 09/22/22 22:47 IMPRESSION: No fracture seen. Electronically Signed: Darrell Prado MD at 23:39 EST , Ribs w/Chest X-Ray 09/22/22 22:47 IMPRESSION: RIBS: Healed anterior eighth rib fracture. CHEST: Degenerative changes, as described above. No demonstrated acute cardiopulmonary process. Electronically Signed: Darrell Prado MD at 23:43 EST , Physical Exam Narrative GENERAL: Hesitant to talk HEENT: Atraumatic; normocephalic EYES; Anicteric, Normal Conjunctiva NECK; supple, normal thyroid, RESPIRATORY: Diminished to auscultation CARDIOVASCULAR: Regular S1 S2, GI: soft, normoactive bowel sounds, : No Renal angle tenderness; EXTREMITIES: No edema, no clubbing, MUSCULOSKELETAL: no muscle wasting NEURO: Awake; no lateralizing signs. SKIN: No Rash PSYCH; Flat affect Assessment & Plan Assessment/Plan (1) Adult failure to thrive: PLAN: Plan Patient is a 71-year-old lady admitted following a fall. An assessment of adult failure to thrive made admitted to the regular nursing floor for further management 1. Physical deconditioning - Requested for PT OT eval and social problems specialist to assist with discharge planning 2. Anemia - Secondary to chronic disorder monitoring H&H and transfuse if patient becomes symptomatic or hemoglobin falls below 7 3. Acute kidney injury. Patient baseline creatinine 0.75 creatinine on admission was 1.30 patient has been started on IV fluid with subsequent monitoring with daily BMPs ordered 4. Hypertension - Blood pressure controlled, home medications continued with dose adjustment as needed 5. Paroxysmal A. fib ?Rate controlled. Patient not on systemic anticoagulation 6. Tachybradycardia syndrome ? Status post pacemaker placement 7. Diabetes mellitus type II -patient's oral hypoglycemics held. Placed on long acting insulin, Accu-Cheks a.c. and at bedtime and covered with sliding scale insulin 8. Seizure disorder ? Discontinue patient antiseizure medications 9. DVT prophylaxis SC Lovenox Time spent in the patient's overall evaluation,decision-making process, review of diagnostic data, adjustment of management, discussion with other providers, nursing nursing and ancillary staff involved in patient's care documentation, 38 Minutes Charges/Coding Visit Charges Inpatient E&M: 58506 Subs Hosp L2
[2022-09-23 09:40] VITALS: BP 197/94; PULSE 89; RESP 18; TEMP 38.5; O2SAT 95
[2022-09-23] MEDS: amLODIPine 5 MG Tablet PO (09:43)
[2022-09-23] MEDS: Divalproex (ER) 500 MG Tablet PO (09:43)
[2022-09-23] MEDS: Ramipril 10 MG Capsule PO (09:43)
[2022-09-23] MEDS: Enoxaparin 40 MG/0.4 ML Syringe SC (09:43)
[2022-09-23] MEDS: Pregabalin 50 MG Capsule 100 MG PO ×2 (09:50→21:38)
[2022-09-23] MEDS: Lacosamide 50 MG Tablet 100 MG PO (09:50)
[2022-09-23] MEDS: 0.9% Saline Lock 10 ML Syringe IV (09:52)
[2022-09-23] MEDS: Acetaminophen 325 MG Tablet 650 MG PO ×2 (09:52→17:36)
[2022-09-23] MEDS: Insulin Lispro 100 UNIT/ML INSULN.PEN SC ×2 (11:28→21:49)
[2022-09-23 11:56] LABS: Bedside Glucose 247 mg/dL (74-106)
--- NOTE | 2022-09-23 12:03 | CT_ITS ---
STUDY: CT BRAIN WITHOUT CONTRAST REASON FOR EXAM: Female, 72 years old. POSSIBLE SEIZURE RADIATION DOSAGE (If Supplied By Facility): CTDIvol = ( 44.99 ) mGy, DLP = ( 796.11 ) mGycm TECHNIQUE: Transaxial CT imaging of the brain was performed without administration of intravenous contrast material. Individualized dose optimization techniques were used for this CT. COMPARISON: Comparison is made with prior study dated 09/22/2022. FINDINGS: Normal soft tissue structures. Normal calvarium. There is mild cerebral atrophy with widening of the extra-axial spaces and ventricular dilatation. There are areas of decreased attenuation within the white matter tracts of the supratentorial brain, consistent with microvascular disease changes. Stable focal encephalomalacia in the posterior temporal parietal lobe. Normal basal ganglia and thalami. Normal brainstem. Normal cerebellum. There is no intracranial hemorrhage. There are no findings of an acute ischemic infarction. Minimal mucosal thickening along the inferior aspect of the right maxillary sinus. CT/Brain/Head without Contrast IMPRESSION: Chronic involutional changes of the brain. Electronically Signed: Paresh Kebede MD at 12:32 EST ,
--- NOTE | 2022-09-23 13:50 | CASEMGMT ---
DUSTIN JENSEN called for initial transition planning/care coordination assessment as patient is confused. DUSTIN JENSEN introduced self and role at [facility]. willing to participate in assessment and is able to answer all questions appropriately. Care providers, pharmacy, and demographics verified. wishes to for patient to discharge to SNF. states he has no further needs or concerns at this time. SW to provided SNF list and place in patient's room for to review and provide preferences. CM to follow for discharge planning needs that may arise. PCP: Keely Specialists: Dyana neurologist; Antonio nephrologsit Preferred Pharmacy: [facility] Insurance: [employer] [facility] Prescription Benefit: yes Living Will/HPOA: none LNOK: Living Arrangements: Patient lives with in a single story home with no steps to enter. has been assisting patient with ADLs. Transportation: DME/HHC: Patient has shower chair, cane, walker, at home. Patient has previously been to TCU. Disposition Plan: SNF pending acceptance and precert. Filomena RODRIGUEZ, RN, CM
[2022-09-23 15:06] LABS: Reflex Lactate? Y
--- NOTE | 2022-09-23 15:07 | CASEMGMT ---
Social Work Per RNCM, pt will possibly need SNF placement. Pt to be in later and will review SNF options. A list of SNF providers including quality and resource use data and consistent with the patient?s preferred geographic region, medical needs, and insurance network [facility] were left in pt room for to review. SW will continue to follow for discharge planning. KARENA Otto
[2022-09-23 15:12] VITALS: BP 132/70; PULSE 75; RESP 18; TEMP 37; O2SAT 96
[2022-09-23] MEDS: CLARIFY ORDER NOTE (15:21)
--- NOTE | 2022-09-23 16:26 | CASEMGMT ---
DUSTIN CM in to complete MEADOWS form with patient's as patient is confused. RN MIKEY explained MEADOWS form to , voiced understanding. signed MEADOWS form and filed in chart. provided with copy of signed MEADOWS form. DUSTIN JENSEN discussed discharge planning with , Thuan. Thuan reviewed SNF list that was provided and list preferences at 1. [facility]. [facility] [address] [facility] [address] [place]. states that he feels that his may need superintendent terminal placement. RN CM will updated SW with preferences.
[2022-09-23 16:47] LABS: Lactic Acid 0.9 mmol/L (0.4-1.9)
[2022-09-23 17:20] LABS: Bedside Glucose 142 mg/dL (74-106)
[2022-09-23 21:00] VITALS: BP 113/65; PULSE 80; RESP 18; TEMP 37.7; O2SAT 95
[2022-09-23] MEDS: Mirtazapine 30 MG Tablet PO (21:39)
[2022-09-23] MEDS: Divalproex (ER) 500 MG Tablet 1000 MG PO (21:39)
[2022-09-23] MEDS: Tolterodine Tartrate 2 MG CAP.SA PO (21:39)
[2022-09-23] MEDS: Lacosamide 50 MG Tablet 150 MG PO (21:39)
[2022-09-23] MEDS: Atorvastatin Calcium 20 MG Tablet PO (21:39)
[2022-09-23 22:11] LABS: Bedside Glucose 158 mg/dL (74-106)
--- NOTE | 2022-09-23 23:08 | CPS ---
Pt sleeping at time RT walked in to do Incentive Spirometer.
[2022-09-24] VITALS (9 sets, daily range): BP systolic 149–192; BP diastolic 69–88; PULSE 72–87; RESP 14–20; TEMP 36.6–38.4; O2SAT 93–97
[2022-09-24] MEDS: Insulin Lispro 100 UNIT/ML INSULN.PEN SC (06:03)
[2022-09-24 06:25] LABS: Bedside Glucose 175 mg/dL (74-106)
--- NOTE | 2022-09-24 09:26 | CASEMGMT ---
SW was informed by RN MIKEY of patient's 's SNF choices. [facility], and [facility]. RN CM did say patient's is thinking this might be longer term than [facility]. ROMI therefore, made a referral to [facility]. Await response. Aleksandra Nunez [employer] RAFI[employer]
--- NOTE | 2022-09-24 09:43 | PCM.PN.HOSP ---
Subjective Subjective Aloe up adult failure to thrive ? Patient had EDUCATIONAL THERAPIST called the day prior. Patient was thought to have experienced a breakthrough seizure. Has had no recurrence since. Objective Data Objective Data Vital Signs: Vital Signs Temp Pulse Resp BP Pulse Ox O2 Del Method O2 Flow Rate 98.8 F 81 20 H 159/83 H 94 Nasal Cannula 2 09/24/22 03:00 09/24/22 03:00 09/24/22 03:00 09/24/22 03:00 09/24/22 03:00 09/24/22 03:25 09/24/22 03:25 Oxygen Flow Rate (L/min) 2 Oxygen Delivery Method Nasal Cannula Weight: 71.3 kg Body Mass Index (BMI) 28.3 Intake & Output: Intake and Output for Last 24 Hours 09/22/22 09/23/22 09/24/22 23:59 23:59 23:59 Intake Total 2825 / 2825 0 / 0 Output Total 0 / 0 Balance 2825 / 2825 0 / 0 Lab / Micro Data Result Diagrams: 09/23/22 04:55 09/23/22 04:55 Labs: Laboratory Results - last 24 hr 09/23/22 10:52: Lactic Acid 2.0 09/23/22 11:23: POC Glucose 247 H 09/23/22 16:06: Lactic Acid 0.9 09/23/22 16:51: POC Glucose 142 H 09/23/22 21:48: POC Glucose 158 H 09/24/22 06:02: POC Glucose 175 H Micro: Microbiology 09/23/22 11:45 Mucosa - Nasopharyngeal Respiratory Panel (PCR) - Final Radiography Diagnostic Testing: Radiology Impression Brain CT 09/23/22 12:03 IMPRESSION: Chronic involutional changes of the brain. Electronically Signed: Paresh Kebede MD at 12:32 EST , Physical Exam Narrative GENERAL: Hesitant to talk HEENT: Atraumatic; normocephalic EYES; Anicteric, Normal Conjunctiva NECK; supple, normal thyroid, RESPIRATORY: Diminished to auscultation CARDIOVASCULAR: Regular S1 S2, GI: soft, normoactive bowel sounds, : No Renal angle tenderness; EXTREMITIES: No edema, no clubbing, MUSCULOSKELETAL: no muscle wasting NEURO: Awake; no lateralizing signs. SKIN: No Rash PSYCH; Flat affect Assessment & Plan Assessment/Plan (1) Adult failure to thrive: PLAN: Plan Patient is a 71-year-old lady admitted following a fall. An assessment of adult failure to thrive made admitted to the regular nursing floor for further management 1. Physical deconditioning - Requested for PT OT eval and social work administrator to assist with discharge planning ? 09/24/2021; awaiting transfer to group home facility 2. Anemia - Secondary to chronic disorder monitoring H&H and transfuse if patient becomes symptomatic or hemoglobin falls below 7 3. Acute kidney injury. Patient baseline creatinine 0.75 creatinine on admission was 1.30 patient has been started on IV fluid with subsequent monitoring with daily BMPs ordered 4. Hypertension - Blood pressure controlled, home medications continued with dose adjustment as needed 5. Paroxysmal A. fib ?Rate controlled. Patient not on systemic anticoagulation 6. Tachybradycardia syndrome ? Status post pacemaker placement 7. Diabetes mellitus type II -patient's oral hypoglycemics held. Placed on long acting insulin, Accu-Cheks a.c. and at bedtime and covered with sliding scale insulin 8. Seizure disorder ? Did continue patient antiseizure medications ? 09/24/2021 patient had a breakthrough seizure today prior. Head CT obtained demonstrated chronic involutional changes. Did institute seizure precautions. 9. DVT prophylaxis SC Lovenox Time spent in the patient's overall evaluation,decision-making process, review of diagnostic data, adjustment of management, discussion with other providers, nursing nursing and ancillary staff involved in patient's care documentation, 38 Minutes Charges/Coding Visit Charges Inpatient E&M: 65660 Subs Hosp L2
[2022-09-24 10:23] LABS: Absolute Lymphocyte Count 2.21 X10^3/uL (0.83-4.51); Absolute Neutrophil Count 4.9 X10^3/uL (2.0-7.7); Basophil# 0.01 X10^3/uL; Basophil% 0.1 % (0-1); Eosinophil# 0.01 X10^3/uL; Eosinophils% 0.1 % (0-5); Hematocrit 31.5 % (37-47); Hemoglobin 9.6 g/dL (12.0-15.0); Lymphocyte # 2.21 X10^3/ul (0.83-4.51); Lymphocyte % 26.7 % (19-41); Mean Corp Hgb Conc 30.5 g/dL (32-36); Mean Corpuscular Hgb 28.7 pg (27.0-32.0); Mean Corpuscular Volume 94.3 fL (81-99); Mean Platelet Vol. 9.5 fl (6.2-12.0); Monocyte# 1.12 X10^3/uL; Monocyte% 13.5 % (0-10); NRBC Flagged by Analyzer 0 % (0-5); Neutrophil # 4.91 X10^3/uL (2.7-7.7); Neutrophil % 59.2 % (47-70); Platelet Count 103 K/mm3 (150-450); RBC Distribution Width CV 16.4 % (11.6-14.6); RBC Distribution Width SD 55.9 fl (35.1-43.9); Red Blood Count 3.34 M/mm3 (4.2-5.4); White Blood Count 8.3 K/mm3 (4.4-11.0)
[2022-09-24 10:53] LABS: Anion Gap 7 (5-15); BUN 23 mg/dL (7-18); BUN/Creat Ratio 19.3 RATIO (10-20); Calcium,Total 8.5 mg/dL (8.5-10.1); Chloride 107 mmol/L (98-107); Creatinine, Serum 1.19 mg/dL (0.55-1.02); EST Glomerular Filtration Rate 48 mL/min (>60); Est Glom Filt Rate - Afr Amer 58 mL/min (>60); Estimated Creatinine Clearance 34.79 ml/min; Glucose 154 mg/dL (74-106); Magnesium 1.6 mg/dL (1.6-2.6); Phosphorus 4.2 mg/dL (2.5-4.9); Potassium 4.5 mmol/L (3.5-5.1); Sodium Level 141 mmol/L (136-145)
[2022-09-24] MEDS: Enoxaparin 40 MG/0.4 ML Syringe SC (11:32)
[2022-09-24 11:40] LABS: Bedside Glucose 159 mg/dL (74-106)
--- NOTE | 2022-09-24 14:25 | CASEMGMT ---
ROMI received notification from [facility] that they cannot accept patient. ROMI sent a referral to [facility] [place]. 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
--- NOTE | 2022-09-24 15:48 | CASEMGMT ---
ROMI spoke with patient's , Thuan. ROMI updated him that if he is thinking longer therm then TCU may not be the best option as patient would have to be moved again. ROMI let Thuan know [facility] has said no and SW is waiting on [facility]. Thuan said he changed his mind on [facility] as he heard some things and was told not to send her there. Next choice listed was [facility]. Thuan asked ROMI to make a referral to [facility]. ROMI let him know SW will work on a referral to [facility] and cancel the referral to [facility]. Aleksandra Nunez [employer]ING COURT REPORTER RAFIQ
[2022-09-24] MEDS: Dext 5%-0.45% NS 1,000 ML 125 ML IV (16:13)
[2022-09-24 16:40] LABS: Bedside Glucose 154 mg/dL (74-106)
[2022-09-24] MEDS: 0.9% Saline Lock 10 ML Syringe IV (20:57)
[2022-09-24] MEDS: hydrALAZINE 20 MG/ML Vial 10 MG IV (20:57)
[2022-09-24 22:50] LABS: Bedside Glucose 177 mg/dL (74-106)
[2022-09-25] VITALS (8 sets, daily range): BP systolic 122–165; BP diastolic 63–77; PULSE 73–89; RESP 16–20; TEMP 36.8–37.7; O2SAT 94–97
[2022-09-25] MEDS: Dext 5%-0.45% NS 1,000 ML 125 ML IV ×3 (00:26→17:37)
[2022-09-25] MEDS: Acetaminophen 650 MG Suppository RC (00:29)
[2022-09-25] MEDS: hydrALAZINE 20 MG/ML Vial 10 MG IV (01:31)
[2022-09-25] MEDS: 0.9% Saline Lock 10 ML Syringe IV (01:32)
[2022-09-25 04:41] LABS: Absolute Lymphocyte Count 1.98 X10^3/uL (0.83-4.51); Absolute Neutrophil Count 5.4 X10^3/uL (2.0-7.7); Basophil# 0.02 X10^3/uL; Basophil% 0.2 % (0-1); Hematocrit 31.8 % (37-47); Hemoglobin 9.9 g/dL (12.0-15.0); Lymphocyte # 1.98 X10^3/ul (0.83-4.51); Lymphocyte % 23.5 % (19-41); Mean Corp Hgb Conc 31.1 g/dL (32-36); Mean Corpuscular Hgb 28.6 pg (27.0-32.0); Mean Corpuscular Volume 91.9 fL (81-99); Mean Platelet Vol. 9.7 fl (6.2-12.0); Monocyte% 11.9 % (0-10); NRBC Flagged by Analyzer 0 % (0-5); Neutrophil # 5.36 X10^3/uL (2.7-7.7); Neutrophil % 63.6 % (47-70); Platelet Count 101 K/mm3 (150-450); RBC Distribution Width CV 16.2 % (11.6-14.6); RBC Distribution Width SD 54.8 fl (35.1-43.9); Red Blood Count 3.46 M/mm3 (4.2-5.4); White Blood Count 8.4 K/mm3 (4.4-11.0)
--- NOTE | 2022-09-25 05:10 | RAD_ITS ---
STUDY: X-RAY CHEST REASON FOR EXAM: Female, 72 years old. Cough, seizure TECHNIQUE: Single AP portable view of the chest. COMPARISON: None. FINDINGS: Satisfactory appearance of a left subclavian pacemaker Lungs are expanded with bibasilar atelectasis and likely superimposed lingular infiltrate with effusion. Follow-up recommended to ensure resolution. Normal size heart. Normal mediastinum and jannette. Normal visualized pulmonary arteries. Normal visualized aortic arch and descending thoracic aorta. There are diffuse degenerative changes of the visualized thoracic spine. Normal visualized ribs, clavicles, and shoulders. There is no demonstrated abnormality of the visualized soft tissue structures of the upper abdomen. RAD/Chest 1 View (Portable) IMPRESSION: Bibasilar atelectasis with superimposed lingular infiltrate and effusion. Follow-up recommended to ensure resolution Electronically Signed: Miah Hitchcock MD at 11:42 EST ,
[2022-09-25 05:30] LABS: Anion Gap 8 (5-15); BUN 27 mg/dL (7-18); Calcium,Total 8.6 mg/dL (8.5-10.1); Chloride 107 mmol/L (98-107); Creatinine, Serum 1.35 mg/dL (0.55-1.02); EST Glomerular Filtration Rate 41 mL/min (>60); Est Glom Filt Rate - Afr Amer 50 mL/min (>60); Estimated Creatinine Clearance 30.67 ml/min; Glucose 219 mg/dL (74-106); Potassium 4.2 mmol/L (3.5-5.1); Sodium Level 139 mmol/L (136-145)
[2022-09-25 06:55] LABS: Bedside Glucose 215 mg/dL (74-106)
--- NOTE | 2022-09-25 07:31 | CASEMGMT ---
SW received a message from [facility] via [facility] indicating they can accept patient. SW sent a message to them asking to start the pre-cert. SW will notify patient's . Plan: d/c to [facility] when medically ready and pending pre-cert. Aleksandra CONROY
--- NOTE | 2022-09-25 09:16 | PN.HOSP_ITS ---
Subjective Subjective Patient seen much more awake and interactive. Creatinine is up started on IV fluids. Case discussed with patient's Objective Data Objective Data Vital Signs: Vital Signs Temp Pulse Resp BP Pulse Ox O2 Del Method O2 Flow Rate 98.3 F 84 20 H 140/63 H 96 Nasal Cannula 2.5 09/25/22 03:00 09/25/22 03:00 09/25/22 03:00 09/25/22 03:00 09/25/22 03:00 09/25/22 03:46 09/25/22 03:46 Oxygen Flow Rate (L/min) 2.5 Oxygen Delivery Method Nasal Cannula Weight: 72.2 kg Body Mass Index (BMI) 28.3 Intake & Output: Intake and Output for Last 24 Hours 09/23/22 09/24/22 09/25/22 23:59 23:59 23:59 Intake Total 2825 / 2825 0 / 0 1999 / 1999 Output Total 100 / 450 450 / 450 Balance 2825 / 2825 -100 / -450 1550 / 1550 Lab / Micro Data Result Diagrams: 09/25/22 03:54 09/25/22 03:54 Labs: Laboratory Results - last 24 hr 09/24/22 10:12: WBC 8.3, RBC 3.34 L, Hgb 9.6 L, Hct 31.5 L, MCV 94.3, MCH 28.7, MCHC 30.5 L, RDW Std Deviation 55.9 H, RDW Coeff of Ernesto 16.4 H, Plt Count 103 L, MPV 9.5, Immature Gran % (Auto) 0.400, Neut % (Auto) 59.2, Lymph % (Auto) 26.7, Banks % (Auto) 13.5 H, Eos % (Auto) 0.1, Baso % (Auto) 0.1, Absolute Neuts (auto) 4.9, Absolute Lymphs (auto) 2.21, Nucleated RBC % 0 09/24/22 10:12: Sodium 141, Potassium 4.5, Chloride 107, Carbon Dioxide 27.0, Anion Gap 7, BUN 23 H, Creatinine 1.19 H, Estim Creat Clear Calc 34.79, Est GFR (MDRD) Af Amer 58 L, Est GFR (MDRD) Non-Af 48 L, BUN/Creatinine Ratio 19.3, Glucose 154 H, Calcium 8.5, Phosphorus 4.2, Magnesium 1.6 09/24/22 11:21: POC Glucose 159 H 09/24/22 16:20: POC Glucose 154 H 09/24/22 20:45: POC Glucose 177 H 09/25/22 03:54: WBC 8.4, RBC 3.46 L, Hgb 9.9 L, Hct 31.8 L, MCV 91.9, MCH 28.6, MCHC 31.1 L, RDW Std Deviation 54.8 H, RDW Coeff of Ernesto 16.2 H, Plt Count 101 L, MPV 9.7, Immature Gran % (Auto) 0.800, Neut % (Auto) 63.6, Lymph % (Auto) 23.5, Banks % (Auto) 11.9 H, Eos % (Auto) 0.0, Baso % (Auto) 0.2, Absolute Neuts (auto) 5.4, Absolute Lymphs (auto) 1.98, Nucleated RBC % 0 09/25/22 03:54: Sodium 139, Potassium 4.2, Chloride 107, Carbon Dioxide 24.0, Anion Gap 8, BUN 27 H, Creatinine 1.35 H, Estim Creat Clear Calc 30.67, Est GFR (MDRD) Af Amer 50 L, Est GFR (MDRD) Non-Af 41 L, BUN/Creatinine Ratio 20.0, Glucose 219 H, Calcium 8.6 09/25/22 06:23: POC Glucose 215 H Micro: Microbiology 09/23/22 11:45 Mucosa - Nasopharyngeal Respiratory Panel (PCR) - Final Physical Exam Narrative GENERAL: Interactive HEENT: Atraumatic; normocephalic EYES; Anicteric, Normal Conjunctiva NECK; supple, normal thyroid, RESPIRATORY: Diminished to auscultation CARDIOVASCULAR:? Regular S1 S2, GI:? soft, normoactive bowel sounds, : No Renal angle tenderness; EXTREMITIES:? No edema, no clubbing, MUSCULOSKELETAL:? no muscle wasting NEURO:? Awake;? no lateralizing signs. SKIN:? No Rash PSYCH; Flat? affect Assessment & Plan Assessment/Plan (1) Adult failure to thrive: (2) Seizure disorder: PLAN: Plan Patient is a 71-year-old lady admitted following a fall.? An assessment of adult failure to thrive made admitted to the regular nursing floor for further management 1.? Physical deconditioning - Requested for PT OT eval and social and human services assistant to assist with discharge planning ? 09/24/2021; awaiting transfer to [facility] facility 2.? Anemia - Secondary to chronic disorder monitoring H&H and transfuse if patient becomes symptomatic or hemoglobin falls below? 7 3.? Acute kidney injury.? Patient baseline creatinine 0.75 creatinine on admission was 1.30 patient has been started on IV fluid with subsequent monitoring with daily BMPs ordered ? 09/25/2022; worsening of patient kidney function subsequently started on IV fluid 4.? Hypertension - Blood pressure controlled, home medications continued with dose adjustment as needed 5.? Paroxysmal A. fib ?Rate controlled.? Patient not on systemic anticoagulation 6.? Tachybradycardia syndrome ? Status post pacemaker placement 7.? Diabetes mellitus type II -patient's oral hypoglycemics held. Placed on long acting insulin, Accu-Cheks a.c. and at bedtime and covered with sliding scale insulin 8.? Seizure disorder ? Did continue patient antiseizure medications ? 09/24/2021 patient had a breakthrough seizure today prior.? Head CT obtained demonstrated chronic involutional changes.? Did institute seizure precautions. 9.? DVT prophylaxis SC Lovenox Time spent in the patient's overall evaluation,decision-making process, review of diagnostic data, adjustment of management, discussion with other providers, nursing nursing and ancillary staff involved in patient's care documentation, 38 Minutes Charges/Coding Visit Charges Inpatient E&M: 47311 Subs Hosp L2
--- NOTE | 2022-09-25 09:54 | CASEMGMT ---
SW spoke with patient's and let him know [facility] is able to accept patient. Plan: d/c to [facility] pending pre-cert and being medically ready. Aleksandra CONROY
[2022-09-25] MEDS: Ramipril 10 MG Capsule PO (10:57)
[2022-09-25] MEDS: Divalproex (ER) 500 MG Tablet PO (10:57)
[2022-09-25] MEDS: Enoxaparin 40 MG/0.4 ML Syringe SC (10:58)
[2022-09-25] MEDS: FINERENONE 20 MG TABLET PO (10:59)
[2022-09-25] MEDS: amLODIPine 5 MG Tablet PO (10:59)
[2022-09-25] MEDS: Lacosamide 50 MG Tablet 100 MG PO (11:06)
[2022-09-25] MEDS: Insulin Lispro 100 UNIT/ML INSULN.PEN SC ×2 (12:33→17:38)
[2022-09-25 12:55] LABS: Bedside Glucose 222 mg/dL (74-106)
[2022-09-25] MEDS: Acetaminophen 325 MG Tablet 650 MG PO (14:04)
--- NOTE | 2022-09-25 15:20 | CASEMGMT ---
Addendum entered by Aleksandra Nunez 09/25/22 16:03: ROMI notified patient's Thuan that patient can go to TCU pending insurance approval. Aleksandra CONROY Original Note: Patient's Thuan came to and asked if could make a referral to [facility]. ROMI let Thuan know insurance already approved patient for [facility]. This would delay the discharge. Thuan was going to go talk with his children. Thuan cam back to the desk and wanted to talk with his son and daughter in law via speaker phone. Patient's son Jared explained when patient came into the hospital their original plan was for patient to go to [facility]CU and then transition to [place] [facility]. ROMI explained ROMI was not aware that was the plan. ROMI did talk with Thuan about patient going to TCU she would then have to transition to another facility. This plan was not mentioned. Thuan said that was his fault he did not relay information correctly. ROMI let them know will check with TCU to see if there are any beds available. ROMI spoke with Kay in TCU and asked if there were any beds available. TCU can take patient. ROMI notified [facility] to cancel the pre-cert. Kay will start the pre-cert for TCU as soon as [facility] cancels the request. ROMI will notify patient's Thuan. ROMI will also notify physician. TCU does not have a bed until Wednesday. Patient still needs pre-cert. plan: d/c to [facility] TCU pending pre-cert. Aleksandra CONROY
[2022-09-25] MEDS: Pregabalin 50 MG Capsule 100 MG PO (15:56)
[2022-09-25 18:01] LABS: Bedside Glucose 228 mg/dL (74-106)
[2022-09-25] MEDS: 0.9% Normal Saline 1,000 ML 100 ML IV (18:56)
[2022-09-25] MEDS: Ceftriaxone 1 GM/50 ML BAG IV (18:56)
[2022-09-25 22:15] LABS: Bedside Glucose 196 mg/dL (74-106)
[2022-09-26] VITALS (7 sets, daily range): BP systolic 136–158; BP diastolic 77–92; PULSE 72–89; RESP 16–18; TEMP 36.8–37.9; O2SAT 90–97
[2022-09-26] MEDS: 0.9% Normal Saline 1,000 ML 100 ML IV ×2 (06:36→16:37)
[2022-09-26 06:56] LABS: Bedside Glucose 181 mg/dL (74-106)
[2022-09-26 07:07] LABS: Absolute Neutrophil Count 4.8 X10^3/uL (2.0-7.7); Basophil# 0.02 X10^3/uL; Basophil% 0.3 % (0-1); Eosinophil# 0.03 X10^3/uL; Eosinophils% 0.4 % (0-5); Hematocrit 30.4 % (37-47); Hemoglobin 9.4 g/dL (12.0-15.0); Lymphocyte % 20.2 % (19-41); Mean Corp Hgb Conc 30.9 g/dL (32-36); Mean Corpuscular Hgb 28.3 pg (27.0-32.0); Mean Corpuscular Volume 91.6 fL (81-99); Mean Platelet Vol. 10.3 fl (6.2-12.0); Monocyte# 0.97 X10^3/uL; Monocyte% 13.1 % (0-10); NRBC Flagged by Analyzer 0 % (0-5); Neutrophil # 4.83 X10^3/uL (2.7-7.7); Neutrophil % 65.2 % (47-70); Platelet Count 114 K/mm3 (150-450); RBC Distribution Width CV 15.9 % (11.6-14.6); RBC Distribution Width SD 53.9 fl (35.1-43.9); Red Blood Count 3.32 M/mm3 (4.2-5.4); White Blood Count 7.4 K/mm3 (4.4-11.0)
[2022-09-26 07:39] LABS: Anion Gap 9 (5-15); BUN 33 mg/dL (7-18); BUN/Creat Ratio 19.1 RATIO (10-20); Chloride 107 mmol/L (98-107); Creatinine, Serum 1.73 mg/dL (0.55-1.02); EST Glomerular Filtration Rate 31 mL/min (>60); Est Glom Filt Rate - Afr Amer 37 mL/min (>60); Estimated Creatinine Clearance 23.93 ml/min; Glucose 184 mg/dL (74-106); Potassium 4.4 mmol/L (3.5-5.1); Sodium Level 137 mmol/L (136-145)
[2022-09-26] MEDS: Ramipril 10 MG Capsule PO (09:33)
[2022-09-26] MEDS: FINERENONE 20 MG TABLET PO (09:33)
[2022-09-26] MEDS: Pregabalin 50 MG Capsule 100 MG PO ×2 (09:33→23:56)
[2022-09-26] MEDS: amLODIPine 5 MG Tablet PO (09:33)
[2022-09-26] MEDS: Divalproex (ER) 500 MG Tablet PO (09:34)
[2022-09-26] MEDS: Enoxaparin 40 MG/0.4 ML Syringe SC (09:34)
[2022-09-26] MEDS: Lacosamide 50 MG Tablet 100 MG PO (09:34)
[2022-09-26] MEDS: Ceftriaxone 1 GM/50 ML BAG IV (09:34)
--- NOTE | 2022-09-26 11:02 | PCM.TXEXTCAR ---
Diet Diet Order/Speech Therapy: 09/23/22 03:32 Diet: Consistent Carb - Calorie Controlled Food consistency:: Regular Liquid Consistency:: Regular/Thin How many daily calories?: 1800 calorie Routine Orders/Code Status Code Status: Full Code Therapies Physical Therapy: Eval and Treat Occupational Therapy: Eval and Treat Problem/Diagnosis (1) Adult failure to thrive: Status: Acute Code(s): R62.7 - Adult failure to thrive (2) Seizure disorder: Status: Acute Code(s): G40.909 - Epilepsy, unspecified, not intractable, without status epilepticus Plan Patient is a 71-year-old lady admitted following a fall.? An assessment of adult failure to thrive made admitted to the regular nursing floor for further management 1.? Physical deconditioning - Requested for PT OT eval and social media content specialist to assist with discharge planning ? 09/24/2021[facility] 2.? Anemia - Secondary to chronic disorder monitoring H&H and transfuse if patient becomes symptomatic or hemoglobin falls below? 7 3.? Acute kidney injury.? Patient baseline creatinine 0.75 creatinine on admission was 1.30 patient has been started on IV fluid with subsequent monitoring with daily BMPs ordered ? 09/25/2022; worsening of patient kidney function subsequently started on IV fluid 4. Acute cystitis ? With E. coli patient started on Levaquin plan is to treat for 3 days 4.? Hypertension - Blood pressure controlled, home medications continued with dose adjustment as needed 5.? Paroxysmal A. fib ?Rate controlled.? Patient not on systemic anticoagulation 6.? Tachybradycardia syndrome ? Status post pacemaker placement 7.? Diabetes mellitus type II -patient's oral hypoglycemics held. Placed on long acting insulin, Accu-Cheks a.c. and at bedtime and covered with sliding scale insulin 8.? Seizure disorder ? Did continue patient antiseizure medications ? 09/24/2021 patient had a breakthrough seizure today prior.? Head CT obtained demonstrated chronic involutional changes.? Did institute seizure precautions. 9.? DVT prophylaxis SC Lovenox Time spent in the patient's overall evaluation,decision-making process, review of diagnostic data, adjustment of management, discussion with other providers, nursing nursing and ancillary staff involved in patient's care documentation, 38 Minutes Allergies/Procedures Done in Hospital Allergies amoxicillin [From Augmentin] Allergy (Verified 09/03/22 13:43) Rash RASH ON FACE clavulanic acid [From Augmentin] Allergy (Verified 09/03/22 13:43) Rash RASH ON FACE escitalopram [From Lexapro] Allergy (Verified 09/03/22 13:43) Rash shellfish derived Allergy (Verified 09/03/22 13:43) Unknown hydroxychloroquine [From Plaquenil] Adverse Reaction (Severe, Verified 09/03/22 13:43) Unknown house dust Adverse Reaction (Verified 09/03/22 13:43) NEEDS FOLLOW-UP perfume Adverse Reaction (Verified 09/03/22 13:43) Unknown pineapple Adverse Reaction (Verified 09/03/22 13:43) Rash quinine Adverse Reaction (Verified 09/03/22 13:43) Unknown strawberry Adverse Reaction (Verified 09/03/22 13:43) Rash Sulfa (Sulfonamide Antibiotics) Adverse Reaction (Verified 09/03/22 13:43) Unknown Type of Care/Length of Stay Estimated LOS: Convalescent Care Less Than 30 days Type of Care Needed: Skilled Rehab Potential: Fair Prognosis: Fair Additional Orders/Day of Discharge Day of Discharge: 09/26/22 Dietary and Speech Recommendations Dietitian Recommendations/Changes: continue 1800 calorie controlled diet as tolerated; ONS if PO intake fails at meals Discharge Plan Admission Admit Date/Time: 09/25/22 09:17 Attending Provider: Ronak Espinoza Primary Care Provider: Hannah Riggs Consulting Providers: Cortney Akers Discharge Orders/Prescriptions Prescriptions: New sennosides-docusate sodium [Stool Softener-Stimulant Laxat] 8.6-50 mg Tablet 2 tab PO BID PRN PRN (Reason: Constipation) Qty: 0 0RF levofloxacin 250 mg Tablet 250 mg PO DAILY@0600 3 Days Qty: 3 0RF insulin lispro [Humalog KwikPen Insulin] 100 unit/mL Insulin Pen See Protocol subcut ACHS Qty: 0 0RF Protocol: 3. Sliding Scale Insulin Med Dosing Condition: 150-189 mg/dl = 1 unit Condition: 190-229 mg/dl = 2 units Condition: 230-269 mg/dl = 3 units Condition: 270-309 mg/dl = 4 units Condition: 310-349 mg/dl = 5 units Condition: 350-399 mg/dl = 6 units Condition: 400-449 mg/dl = 7 units Condition: Greater than 449 call physician Protocol Text: - Use for Total Daily Dose of Insulin 37-55 units - Obsese, infected, or steroid patients MEDIUM DOSING ALGORITHIM Continued simvastatin 40 MG tablet 40 mg PO QHS Label Comments: cholesterol oxybutynin chloride 5 MG tablet 10 mg PO QHS Label Comments: bladder amlodipine 5 MG tablet 5 mg PO DAILY alendronate 70 mg Tablet 70 mg PO SA divalproex [Depakote ER] 500 mg Tablet Extended Release 24 Hr 500 mg PO DAILY divalproex [Depakote ER] 500 mg Tablet Extended Release 24 Hr 1,000 mg PO QHS pregabalin 100 mg Capsule 100 mg PO BID Januvia 50 mg Tablet 100 mg PO DAILY Rx Instructions: with first meal lacosamide [Vimpat] 100 mg tablet 100 mg PO DAILY Label Comments: TAKE 1 TABLET BY MOUTH EVERY MORNING acetaminophen 500 mg Tablet 1,000 mg PO Q6H PRN PRN (Reason: Pain Score 1-10) Qty: 0 0RF lacosamide [Vimpat] 100 mg Tablet 150 mg PO QHS Qty: 0 0RF Kerendia 20 mg Tablet 10 mg PO DAILY Qty: 0 0RF mirtazapine 15 mg tablet 30 mg PO QHS ramipril 10 mg capsule 10 mg PO DAILY Qty: 90 3RF Discontinued metformin 500 mg tablet extended release 24 hr 1,000 mg PO BID Label Comments: TAKE 2 TABLETS BY MOUTH TWICE DAILY Referrals / Follow Up: Hannah Riggs DO [Primary Care Provider] - Within 2 Weeks Disposition Disposition (needs filled in before D/C Order can be placed): Residential Facility
--- NOTE | 2022-09-26 11:08 | DS.PCM_ITS ---
Providers Date of Admission: 09/25/22 Date of Discharge: 09/26/22 Primary Care Physician: Dr. Hannah Riggs, DO Reason For Visit: FTT ADULT,FALLS Diagnosis Discharge Diagnosis (1) Adult failure to thrive: Status: Acute Code(s): R62.7 - Adult failure to thrive (2) Seizure disorder: Status: Acute Code(s): G40.909 - Epilepsy, unspecified, not intractable, without status epilepticus Plan Patient is a 71-year-old lady admitted following a fall.? An assessment of adult failure to thrive made admitted to the regular nursing floor for further management 1.? Physical deconditioning - Requested for PT OT eval and social media marketing analyst to assist with discharge planning ? 09/24/2021; [facility] 2.? Anemia - Secondary to chronic disorder monitoring H&H and transfuse if patient becomes symptomatic or hemoglobin falls below? 7 3.? Acute kidney injury.? Patient baseline creatinine 0.75 creatinine on admission was 1.30 patient has been started on IV fluid with subsequent monitoring with daily BMPs ordered ? 09/25/2022; worsening of patient kidney function subsequently started on IV fluid 4. Acute cystitis ? With E. coli patient started on Levaquin plan is to treat for 3 days 4.? Hypertension - Blood pressure controlled, home medications continued with dose adjustment as needed 5.? Paroxysmal A. fib ?Rate controlled.? Patient not on systemic anticoagulation 6.? Tachybradycardia syndrome ? Status post pacemaker placement 7.? Diabetes mellitus type II -patient's oral hypoglycemics held. Placed on long acting insulin, Accu-Cheks a.c. and at bedtime and covered with sliding scale insulin 8.? Seizure disorder ? Did continue patient antiseizure medications ? 09/24/2021 patient had a breakthrough seizure today prior.? Head CT obtained demonstrated chronic involutional changes.? Did institute seizure precautions. 9.? DVT prophylaxis SC Lovenox Time spent in the patient's overall evaluation,decision-making process, review of diagnostic data, adjustment of management, discussion with other providers, nursing nursing and ancillary staff involved in patient's care documentation, 38 Minutes Medications at Discharge Home Medications simvastatin 40 mg tablet 40 mg PO QHS cholesterol 04/08/17 oxybutynin chloride 5 mg tablet,extended release 24 hr 10 mg PO QHS bladder 05/20/17 amlodipine 5 mg tablet 5 mg PO DAILY BP 10/06/17 alendronate 70 mg tablet 70 mg PO SA BONES 11/19/21 divalproex 500 mg tablet,extended release 24 hr (Depakote ER) 1,000 mg PO QHS Seizures 11/19/21 divalproex 500 mg tablet,extended release 24 hr (Depakote ER) 500 mg PO DAILY Seizures 11/19/21 lacosamide 100 mg tablet (Vimpat) 100 mg PO DAILY SEIZURES 11/19/21 pregabalin 100 mg capsule 100 mg PO BID Nerve Pain 11/19/21 sitagliptin phosphate 50 mg tablet (Januvia) 100 mg PO DAILY Diabetes 11/19/21 acetaminophen 500 mg tablet 1,000 mg PO Q6H PRN PRN Pain Score 1-10 #0 tabs 12/10/21 finerenone 20 mg tablet (Kerendia) 10 mg PO DAILY #0 tabs 12/10/21 lacosamide 100 mg tablet (Vimpat) 150 mg PO QHS #0 tabs 12/10/21 ramipril 10 mg capsule 10 mg PO DAILY BP #90 caps 01/27/22 mirtazapine 15 mg tablet 30 mg PO QHS 09/23/22 insulin lispro 100 unit/mL subcutaneous pen (Humalog KwikPen (U-100) Insulin) See Protocol subcut ACHS #0 mL 09/26/22 levofloxacin 250 mg tablet 250 mg PO DAILY@0600 3 days #3 tabs 09/26/22 sennosides 8.6 mg-docusate sodium 50 mg tablet (Stool Softener-Stimulant Laxative) 2 tab PO BID PRN PRN Constipation #0 tabs 09/26/22 Hospital Course Summary of Care Provided Minutes Spent on Discharge: 38 Physical Exam Narrative GENERAL: Interactive HEENT: Atraumatic; normocephalic EYES; Anicteric, Normal Conjunctiva NECK; supple, normal thyroid, RESPIRATORY: Diminished to auscultation CARDIOVASCULAR:? Regular S1 S2, GI:? soft, normoactive bowel sounds, : No Renal angle tenderness; EXTREMITIES:? No edema, no clubbing, MUSCULOSKELETAL:? no muscle wasting NEURO:? Awake;? no lateralizing signs. SKIN:? No Rash PSYCH; Flat? affect Weight / BMI Weight Weight: 74.3 kg Body Mass Index (BMI) 28.3 ABG / Lab / Microbiology Data Result Diagrams: 09/26/22 05:40 09/26/22 05:40 Laboratory: Laboratory Results - last 24 hr 09/25/22 12:31: POC Glucose 222 H 09/25/22 17:32: POC Glucose 228 H 09/25/22 20:08: POC Glucose 196 H 09/26/22 05:40: WBC 7.4, RBC 3.32 L, Hgb 9.4 L, Hct 30.4 L, MCV 91.6, MCH 28.3, MCHC 30.9 L, RDW Std Deviation 53.9 H, RDW Coeff of Ernesto 15.9 H, Plt Count 114 L, MPV 10.3, Immature Gran % (Auto) 0.800, Neut % (Auto) 65.2, Lymph % (Auto) 20.2, [place] % (Auto) 13.1 H, Eos % (Auto) 0.4, Baso % (Auto) 0.3, Absolute Neuts (auto) 4.8, Absolute Lymphs (auto) 1.50, Nucleated RBC % 0 09/26/22 05:40: Sodium 137, Potassium 4.4, Chloride 107, Carbon Dioxide 21.0, Anion Gap 9, BUN 33 H, Creatinine 1.73 H, Estim Creat Clear Calc 23.93, Est GFR (MDRD) Af Amer 37 L, Est GFR (MDRD) Non-Af 31 L, BUN/Creatinine Ratio 19.1, Glucose 184 H, Calcium 8.0 L 09/26/22 06:35: POC Glucose 181 H Microbiology: Microbiology 09/22/22 23:56 Urine Catheter - Catheter Urine Culture - Final Escherichia coli 09/23/22 11:00 Blood Culture (Wb) - Left Wrist Blood Culture - Preliminary No growth in 48 hours. 09/23/22 10:52 Blood Culture (Wb) - Anticubital Left Blood Culture - Preliminary No growth in 48 hours. 09/23/22 11:45 Mucosa - Nasopharyngeal Respiratory Panel (PCR) - Final Radiography Diagnostic Testing: Radiology Impression Chest X-Ray 09/25/22 05:10 IMPRESSION: Bibasilar atelectasis with superimposed lingular infiltrate and effusion. Follow-up recommended to ensure resolution Electronically Signed: Miah Hitchcock MD at 11:42 EST , D/C Instructions Discharge Diet: 1800 Calorie Control Diet Discharge Activity: Return to Normal Activity Call your doctor if you observe: Fever of 101 or Higher, Shortness of breath, Fainting spells and Chest pain Meaningful Use Info Meaningful Use Diagnoses (Choose all that apply): None applicable Discharge Plan Admission Admit Date/Time: 09/25/22 09:17 Attending Provider: Ronak Espinoza Primary Care Provider: Hannah Riggs Consulting Providers: Cortney Akers Discharge Orders/Prescriptions Prescriptions: New sennosides-docusate sodium [Stool Softener-Stimulant Laxat] 8.6-50 mg Tablet 2 tab PO BID PRN PRN (Reason: Constipation) Qty: 0 0RF levofloxacin 250 mg Tablet 250 mg PO DAILY@0600 3 Days Qty: 3 0RF insulin lispro [Humalog KwikPen Insulin] 100 unit/mL Insulin Pen See Protocol subcut ACHS Qty: 0 0RF Protocol: 3. Sliding Scale Insulin Med Dosing Condition: 150-189 mg/dl = 1 unit Condition: 190-229 mg/dl = 2 units Condition: 230-269 mg/dl = 3 units Condition: 270-309 mg/dl = 4 units Condition: 310-349 mg/dl = 5 units Condition: 350-399 mg/dl = 6 units Condition: 400-449 mg/dl = 7 units Condition: Greater than 449 call physician Protocol Text: - Use for Total Daily Dose of Insulin 37-55 units - Obsese, infected, or steroid patients MEDIUM DOSING ALGORITHIM Continued simvastatin 40 MG tablet 40 mg PO QHS Label Comments: cholesterol oxybutynin chloride 5 MG tablet 10 mg PO QHS Label Comments: bladder amlodipine 5 MG tablet 5 mg PO DAILY alendronate 70 mg Tablet 70 mg PO SA divalproex [Depakote ER] 500 mg Tablet Extended Release 24 Hr 500 mg PO DAILY divalproex [Depakote ER] 500 mg Tablet Extended Release 24 Hr 1,000 mg PO QHS pregabalin 100 mg Capsule 100 mg PO BID Januvia 50 mg Tablet 100 mg PO DAILY Rx Instructions: with first meal lacosamide [Vimpat] 100 mg tablet 100 mg PO DAILY Label Comments: TAKE 1 TABLET BY MOUTH EVERY MORNING acetaminophen 500 mg Tablet 1,000 mg PO Q6H PRN PRN (Reason: Pain Score 1-10) Qty: 0 0RF lacosamide [Vimpat] 100 mg Tablet 150 mg PO QHS Qty: 0 0RF Kerendia 20 mg Tablet 10 mg PO DAILY Qty: 0 0RF mirtazapine 15 mg tablet 30 mg PO QHS ramipril 10 mg capsule 10 mg PO DAILY Qty: 90 3RF Discontinued metformin 500 mg tablet extended release 24 hr 1,000 mg PO BID Label Comments: TAKE 2 TABLETS BY MOUTH TWICE DAILY Referrals / Follow Up: Hannah Riggs DO [Primary Care Provider] - Within 2 Weeks Disposition Disposition (needs filled in before D/C Order can be placed): [facility] Charges/Coding Visit Charges Inpatient E&M: 97101 Disch Hosp >30min
[2022-09-26 11:26] LABS: Bedside Glucose 162 mg/dL (74-106)
[2022-09-26] MEDS: levoFLOXacin 500 MG Tablet PO (11:26)
[2022-09-26] MEDS: Insulin Lispro 100 UNIT/ML INSULN.PEN SC (11:26)
[2022-09-26 17:00] LABS: Bedside Glucose 116 mg/dL (74-106)
[2022-09-26] MEDS: Divalproex (ER) 500 MG Tablet 1000 MG PO (23:41)
[2022-09-26] MEDS: Tolterodine Tartrate 2 MG CAP.SA PO (23:45)
[2022-09-26] MEDS: Atorvastatin Calcium 20 MG Tablet PO (23:47)
[2022-09-26] MEDS: Mirtazapine 30 MG Tablet PO (23:49)
[2022-09-26] MEDS: Lacosamide 50 MG Tablet 150 MG PO (23:55)
[2022-09-27 01:21] LABS: Bedside Glucose 132 mg/dL (74-106)
[2022-09-27] MEDS: 0.9% Normal Saline 1,000 ML 100 ML IV (01:34)
[2022-09-27 05:50] LABS: Absolute Neutrophil Count 3.8 X10^3/uL (2.0-7.7); Basophil# 0.02 X10^3/uL; Basophil% 0.3 % (0-1); Eosinophil# 0.08 X10^3/uL; Eosinophils% 1.3 % (0-5); Hematocrit 27.4 % (37-47); Hemoglobin 8.4 g/dL (12.0-15.0); Mean Corp Hgb Conc 30.7 g/dL (32-36); Mean Corpuscular Hgb 28.3 pg (27.0-32.0); Mean Corpuscular Volume 92.3 fL (81-99); Mean Platelet Vol. 9.7 fl (6.2-12.0); Monocyte# 0.83 X10^3/uL; NRBC Flagged by Analyzer 0 % (0-5); Neutrophil # 3.83 X10^3/uL (2.7-7.7); Neutrophil % 59.8 % (47-70); Platelet Count 120 K/mm3 (150-450); RBC Distribution Width CV 15.9 % (11.6-14.6); RBC Distribution Width SD 53.7 fl (35.1-43.9); Red Blood Count 2.97 M/mm3 (4.2-5.4); White Blood Count 6.4 K/mm3 (4.4-11.0)
[2022-09-27 06:21] LABS: Anion Gap 10 (5-15); BUN 50 mg/dL (7-18); BUN/Creat Ratio 16.8 RATIO (10-20); Calcium,Total 7.5 mg/dL (8.5-10.1); Chloride 107 mmol/L (98-107); Creatinine, Serum 2.97 mg/dL (0.55-1.02); EST Glomerular Filtration Rate 17 mL/min (>60); Est Glom Filt Rate - Afr Amer 20 mL/min (>60); Estimated Creatinine Clearance 13.94 ml/min; Glucose 150 mg/dL (74-106); Potassium 4.7 mmol/L (3.5-5.1); Sodium Level 137 mmol/L (136-145)
[2022-09-27 07:00] VITALS: BP 132/76; PULSE 88; RESP 18; O2SAT 93
[2022-09-27 07:15] LABS: Bedside Glucose 126 mg/dL (74-106)
[2022-09-27 08:24] VITALS: BP 133/79; PULSE 79; RESP 18; TEMP 37.4; O2SAT 95
[2022-09-27 08:45] VITALS: O2SAT 93
--- NOTE | 2022-09-27 10:23 | PCM.PN.HOSP ---
Subjective Subjective Late entry note for 09/26/2021; plan was for patient to have been discharged earlier on in the day however patient insurance precertification was not ready. Objective Data Objective Data Vital Signs: Vital Signs Temp Pulse Resp BP Pulse Ox O2 Del Method O2 Flow Rate 99.4 F H 79 18 133/79 H 95 Nasal Cannula 1 09/27/22 08:24 09/27/22 08:24 09/27/22 08:24 09/27/22 08:24 09/27/22 08:24 09/27/22 08:41 09/27/22 08:41 Oxygen Flow Rate (L/min) 1 Oxygen Delivery Method Nasal Cannula Weight: 75.8 kg Body Mass Index (BMI) 28.3 Intake & Output: Intake and Output for Last 24 Hours 09/25/22 09/26/22 09/27/22 23:59 23:59 23:59 Intake Total 3752.92 / 3752.92 1997.34 / 1997.34 895 / 895 Output Total 700 / 850 250 / 250 Balance 3052.92 / 2902.92 1748.34 / 1748.34 895 / 895 Lab / Micro Data Result Diagrams: 09/27/22 05:30 09/27/22 05:30 Labs: Laboratory Results - last 24 hr 09/26/22 11:06: POC Glucose 162 H 09/26/22 16:32: POC Glucose 116 H 09/26/22 23:05: POC Glucose 132 H 09/27/22 05:30: WBC 6.4, RBC 2.97 L, Hgb 8.4 L, Hct 27.4 L, MCV 92.3, MCH 28.3, MCHC 30.7 L, RDW Std Deviation 53.7 H, RDW Coeff of Ernesto 15.9 H, Plt Count 120 L, MPV 9.7, Immature Gran % (Auto) 0.600, Neut % (Auto) 59.8, Lymph % (Auto) 25.0, [place] % (Auto) 13.0 H, Eos % (Auto) 1.3, Baso % (Auto) 0.3, Absolute Neuts (auto) 3.8, Absolute Lymphs (auto) 1.60, Nucleated RBC % 0 09/27/22 05:30: Sodium 137, Potassium 4.7, Chloride 107, Carbon Dioxide 20.0 L, Anion Gap 10, BUN 50 H, Creatinine 2.97 H, Estim Creat Clear Calc 13.94, Est GFR (MDRD) Af Amer 20 L, Est GFR (MDRD) Non-Af 17 L, BUN/Creatinine Ratio 16.8, Glucose 150 H, Calcium 7.5 L 09/27/22 06:53: POC Glucose 126 H Micro: Microbiology 09/22/22 23:56 Urine Catheter - Catheter Urine Culture - Final Escherichia coli 09/23/22 11:00 Blood Culture (Wb) - Left Wrist Blood Culture - Preliminary No growth in 48 hours. 09/23/22 10:52 Blood Culture (Wb) - Anticubital Left Blood Culture - Preliminary No growth in 48 hours. 09/23/22 11:45 Mucosa - Nasopharyngeal Respiratory Panel (PCR) - Final Physical Exam Narrative GENERAL: Interactive HEENT: Atraumatic; normocephalic EYES; Anicteric, Normal Conjunctiva NECK; supple, normal thyroid, RESPIRATORY: Diminished to auscultation CARDIOVASCULAR:? Regular S1 S2, GI:? soft, normoactive bowel sounds, : No Renal angle tenderness; EXTREMITIES:? No edema, no clubbing, MUSCULOSKELETAL:? no muscle wasting NEURO:? Awake;? no lateralizing signs. SKIN:? No Rash PSYCH; Flat? affect Assessment & Plan Assessment/Plan (1) Adult failure to thrive: (2) Seizure disorder: PLAN: Plan Patient is a 71-year-old lady admitted following a fall.? An assessment of adult failure to thrive made admitted to the regular nursing floor for further management 1.? Physical deconditioning - Requested for PT OT eval and socially responsible investment adviser to assist with discharge planning ? 09/24/2021; awaiting transfer to residential facility 2.? Anemia - Secondary to chronic disorder monitoring H&H and transfuse if patient becomes symptomatic or hemoglobin falls below? 7 3.? Acute kidney injury.? Patient baseline creatinine 0.75 creatinine on admission was 1.30 patient has been started on IV fluid with subsequent monitoring with daily BMPs ordered ? 09/25/2022; worsening of patient kidney function subsequently started on IV fluid 4. Acute cystitis ? With E. coli patient started on Levaquin plan is to treat for 3 days 4.? Hypertension - Blood pressure controlled, home medications continued with dose adjustment as needed 5.? Paroxysmal A. fib ?Rate controlled.? Patient not on systemic anticoagulation 6.? Tachybradycardia syndrome ? Status post pacemaker placement 7.? Diabetes mellitus type II -patient's oral hypoglycemics held. Placed on long acting insulin, Accu-Cheks a.c. and at bedtime and covered with sliding scale insulin 8.? Seizure disorder ? Did continue patient antiseizure medications ? 09/24/2021 patient had a breakthrough seizure today prior.? Head CT obtained demonstrated chronic involutional changes.? Did institute seizure precautions. 9.? DVT prophylaxis SC Lovenox Time spent in the patient's overall evaluation,decision-making process, review of diagnostic data, adjustment of management, discussion with other providers, nursing nursing and ancillary staff involved in patient's care documentation, 30 Minutes Charges/Coding Visit Charges Inpatient E&M: 21242 [facility] Hosp L1
--- NOTE | 2022-09-27 10:24 | PCM.PN.HOSP ---
Subjective Subjective Patient seen no change in clinical condition. Hemoglobin down to 8.9 however no indication for blood transfusion. Awaiting insurance precertification prior to transfer to alf facility Objective Data Objective Data Vital Signs: Vital Signs Temp Pulse Resp BP Pulse Ox O2 Del Method O2 Flow Rate 99.4 F H 79 18 133/79 H 95 Nasal Cannula 1 09/27/22 08:24 09/27/22 08:24 09/27/22 08:24 09/27/22 08:24 09/27/22 08:24 09/27/22 08:41 09/27/22 08:41 Oxygen Flow Rate (L/min) 1 Oxygen Delivery Method Nasal Cannula Weight: 75.8 kg Body Mass Index (BMI) 28.3 Intake & Output: Intake and Output for Last 24 Hours 09/25/22 09/26/22 09/27/22 23:59 23:59 23:59 Intake Total 3752.92 / 3752.92 1998.34 / 1997.34 895 / 895 Output Total 700 / 850 250 / 250 Balance 3052.92 / 2902.92 1748.34 / 1748.34 895 / 895 Lab / Micro Data Result Diagrams: 09/27/22 05:30 09/27/22 05:30 Labs: Laboratory Results - last 24 hr 09/26/22 11:06: POC Glucose 162 H 09/26/22 16:32: POC Glucose 116 H 09/26/22 23:05: POC Glucose 132 H 09/27/22 05:30: WBC 6.4, RBC 2.97 L, Hgb 8.4 L, Hct 27.4 L, MCV 92.3, MCH 28.3, MCHC 30.7 L, RDW Std Deviation 53.7 H, RDW Coeff of Ernesto 15.9 H, Plt Count 120 L, MPV 9.7, Immature Gran % (Auto) 0.600, Neut % (Auto) 59.8, Lymph % (Auto) 25.0, [place] % (Auto) 13.0 H, Eos % (Auto) 1.3, Baso % (Auto) 0.3, Absolute Neuts (auto) 3.8, Absolute Lymphs (auto) 1.60, Nucleated RBC % 0 09/27/22 05:30: Sodium 137, Potassium 4.7, Chloride 107, Carbon Dioxide 20.0 L, Anion Gap 10, BUN 50 H, Creatinine 2.97 H, Estim Creat Clear Calc 13.94, Est GFR (MDRD) Af Amer 20 L, Est GFR (MDRD) Non-Af 17 L, BUN/Creatinine Ratio 16.8, Glucose 150 H, Calcium 7.5 L 09/27/22 06:53: POC Glucose 126 H Micro: Microbiology 09/22/22 23:56 Urine Catheter - Catheter Urine Culture - Final Escherichia coli 09/23/22 11:00 Blood Culture (Wb) - Left Wrist Blood Culture - Preliminary No growth in 48 hours. 09/23/22 10:52 Blood Culture (Wb) - Anticubital Left Blood Culture - Preliminary No growth in 48 hours. 09/23/22 11:45 Mucosa - Nasopharyngeal Respiratory Panel (PCR) - Final Physical Exam Narrative GENERAL: Interactive HEENT: Atraumatic; normocephalic EYES; Anicteric, Normal Conjunctiva NECK; supple, normal thyroid, RESPIRATORY: Diminished to auscultation CARDIOVASCULAR:? Regular S1 S2, GI:? soft, normoactive bowel sounds, : No Renal angle tenderness; EXTREMITIES:? No edema, no clubbing, MUSCULOSKELETAL:? no muscle wasting NEURO:? Awake;? no lateralizing signs. SKIN:? No Rash PSYCH; Flat? affect Assessment & Plan Assessment/Plan (1) Adult failure to thrive: (2) Seizure disorder: PLAN: Plan Patient is a 71-year-old lady admitted following a fall.? An assessment of adult failure to thrive made admitted to the regular nursing floor for further management 1.? Physical deconditioning - Requested for PT OT eval and social work program coordinator to assist with discharge planning ? 09/24/2021; awaiting transfer to alf facility 2.? Anemia - Secondary to chronic disorder monitoring H&H and transfuse if patient becomes symptomatic or hemoglobin falls below? 7 ? 09/27/2022; patient hemoglobin continues to drop. Down to 8.4. Repeat H&H ordered for a.m. Does not meet criteria for blood transfusion 3.? Acute kidney injury.? Patient baseline creatinine 0.75 creatinine on admission was 1.30 patient has been started on IV fluid with subsequent monitoring with daily BMPs ordered ? 09/25/2022; worsening of patient kidney function subsequently started on IV fluid ? 09/27/2022. Significant worsening in patient kidney function. Did review medications, Patient is on ramipril discontinued, started on normal saline repeat BMP ordered for a.m. 4. Acute cystitis ? With E. coli patient started on Levaquin plan is to treat for 3 days 4.? Hypertension - Blood pressure controlled, home medications continued with dose adjustment as needed 5.? Paroxysmal A. fib ?Rate controlled.? Patient not on systemic anticoagulation 6.? Tachybradycardia syndrome ? Status post pacemaker placement 7.? Diabetes mellitus type II -patient's oral hypoglycemics held. Placed on long acting insulin, Accu-Cheks a.c. and at bedtime and covered with sliding scale insulin 8.? Seizure disorder ? Did continue patient antiseizure medications ? 09/24/2021 patient had a breakthrough seizure today prior.? Head CT obtained demonstrated chronic involutional changes.? Did institute seizure precautions. 9.? DVT prophylaxis SC Lovenox Time spent in the patient's overall evaluation,decision-making process, review of diagnostic data, adjustment of management, discussion with other providers, nursing nursing and ancillary staff involved in patient's care documentation, 38 Minutes Charges/Coding Visit Charges Inpatient E&M: 25041 Subs Hosp L2
[2022-09-27] MEDS: 0.9% Normal Saline 1,000 ML 150 ML IV ×2 (11:40→21:11)
[2022-09-27] MEDS: Enoxaparin 30 MG/0.3 ML Syringe SC (11:41)
[2022-09-27 12:40] LABS: Bedside Glucose 129 mg/dL (74-106)
[2022-09-27 14:00] VITALS: BP 108/63; PULSE 73; RESP 16; TEMP 37.3; O2SAT 97
[2022-09-27 17:00] VITALS: BP 124/65; PULSE 72; RESP 18; TEMP 36.7; O2SAT 97
[2022-09-27] MEDS: Ceftriaxone 1 GM/50 ML BAG IV (17:10)
[2022-09-27 17:35] LABS: Bedside Glucose 100 mg/dL (74-106)
--- NOTE | 2022-09-27 20:33 | CON.PCM.RE_ITS ---
Assessment & Plan Assessment/Plan (1) CHETNA (acute kidney injury): (2) Chronic kidney disease, stage 3a: (3) Hypertension: (4) Urinary retention: PLAN: Plan Impression/Plan: The patient is a 72-year-old woman with past history of type 2 diabetes mellitus, hypertension, chronic kidney disease stage IIIa, paroxysmal atrial fibrillation, seizure disorder, anxiety disorder, depression, and hyperli pidemia. The patient is admitted to the hospital on 09/23/2022 because of failure to thrive. She was found to have UTI and urinary retention. Nephrology is following for acute kidney injury on chronic kidney disease. Acute kidney injury on chronic kidney disease stage IIIa. Baseline serum creatinine had been around 0.8 to 1.1 mg/dL since June 2022. The patient likely has underlying mild diabetic kidney disease. I suspect the current CHETNA is due to urinary retention. Agree with placement of Dickson catheter. Agree with volume expansion with isotonic IV fluid. Agree with discontinuation of ramipril for now. If renal function fails to improve with bladder decompression and volume expansion, I will check urine indices and renal ultrasound tomorrow. Recheck renal function, volume status, acid-base status and electrolytes tomorrow. Hypertension. BP is reasonably controlled on amlodipine without ramipril. Agree with holding NIRAJ inhibitor for now because of CHETNA. Continue to monitor BP. Metabolic acidosis. Likely due to CHETNA. Serum bicarbonate level has decreased from 24 mmol/L on 09/25/2022 down to 20 mmol/L today. We will continue to monitor serum bicarbonate level for now. There is no need to add sodium bicarbonate at this point. Urinary retention. Dickson catheter was placed today. Suspect urinary retention is due to immobility and constipation. Ensure good bowel regimen before voiding trial. Unfortunately, she is now n.p.o. after failing swallowing test. If she can be cleared for liquid by speech pathologist tomorrow, perhaps we can start some lactulose as needed. HPI Consult Data Date of Consult: 09/27/22 HPI Narrative Reason for Consultation: CHETNA HPI Narrative: The patient is a 72-year-old woman with past history of type 2 diabetes mellitus, hypertension, chronic kidney disease stage IIIa, paroxysmal atrial fibrillation, seizure disorder, anxiety disorder, depression, and hyperlipidemia. The patient presented to the hospital on 09/23/2022 with generalized weakness, frequent fall, and anorexia. The patient has become dependent on her for nearly complete care. She is admitted to the hospital for adult failure to thrive and debility. Nephrology is asked to see the patient because of CHETNA. Baseline serum creatinine has been around 0.75- 1.12 mg/dL prior to this admission. Serum creatinine was 1.30 mg/dL on admission on 09/22/2022. Since then, there has been some fluctuation of serum creatinine. However, since 09/24/2022, serum creatinine has steadily increased from 1.19 mg deciliter up to 2.97 mg/dL today. There has been no prolonged periods of hypotension since admission. Urine output was low in the past 24 hours. However, there was more than 1 L of retained urine once Dickson catheter was placed today. The patient does have a history of bladder dysfunction and was on oxybutynin prior to admission. She is currently on tolterodine. The patient has also been on ramipril up until today. The patient has been lethargic, and history and ROS has been limited. She denies current chest pain or shortness of breath at rest. There has been no nausea or vomiting although oral intake has been poor per my discussion with RN. There has been no lower extremity edema. [facility] Medical History (Updated 09/27/22 @ 20:[address] Margo Bowser MD) Anxiety Atrial fibrillation Breakthrough seizure Chronic kidney disease (CKD) Dysuria Essential hypertension Former smoker HLD (hyperlipidemia) Hypertension Hypertensive emergency without congestive heart failure Hypertriglyceridemia Junctional rhythm Kidney disease Non-smoker Obesity Pacemaker Paroxysmal atrial fibrillation Right ankle sprain Seizure Seizures Septic shock Tachy-maurizio syndrome Type 2 diabetes mellitus Vaginal bleeding Home Medications simvastatin 40 mg tablet 40 mg PO QHS cholesterol 04/08/17 [History Last Taken 11/18/21] oxybutynin chloride 5 mg tablet,extended release 24 hr 10 mg PO QHS bladder 05/20/17 [History Last Taken 11/18/21] amlodipine 5 mg tablet 5 mg PO DAILY BP 10/06/17 [History Last Taken 11/18/21] alendronate 70 mg tablet 70 mg PO SA BONES 11/19/21 [History Last Taken 0 11/15/21] divalproex 500 mg tablet,extended release 24 hr (Depakote ER) 1,000 mg PO QHS Seizures 11/19/21 [History Last Taken 11/18/21] divalproex 500 mg tablet,extended release 24 hr (Depakote ER) 500 mg PO DAILY Seizures 11/19/21 [History Last Taken 11/19/21] lacosamide 100 mg tablet (Vimpat) 100 mg PO DAILY SEIZURES 11/19/21 [History Last Taken 11/19/21] pregabalin 100 mg capsule 100 mg PO BID Nerve Pain 11/19/21 [History Last Taken 11/18/21] sitagliptin phosphate 50 mg tablet (Januvia) 100 mg PO DAILY Diabetes 11/19/21 [History Last Taken 11/18/21] acetaminophen 500 mg tablet 1,000 mg PO Q6H PRN PRN Pain Score 1-10 #0 tabs 12/10/21 [Rx Last Taken Unknown] finerenone 20 mg tablet (Kerendia) 10 mg PO DAILY #0 tabs 12/10/21 [Rx Last Taken Unknown] lacosamide 100 mg tablet (Vimpat) 150 mg PO QHS #0 tabs 12/10/21 [Rx Last Taken Unknown] ramipril 10 mg capsule 10 mg PO DAILY BP #90 caps 01/27/22 [Rx Last Taken Unknown] mirtazapine 15 mg tablet 30 mg PO QHS 09/23/22 [History Last Taken Unknown] insulin lispro 100 unit/mL subcutaneous pen (Humalog KwikPen (U-100) Insulin) See Protocol subcut ACHS #0 mL 09/26/22 [Rx Last Taken Unknown] levofloxacin 250 mg tablet 250 mg PO DAILY@0600 3 days #3 tabs 09/26/22 [Rx Last Taken Unknown] sennosides 8.6 mg-docusate sodium 50 mg tablet (Stool Softener-Stimulant Laxative) 2 tab PO BID PRN PRN Constipation #0 tabs 09/26/22 [Rx Last Taken Unknown] Allergy/AdvReac Type Severity Reaction Status Date / Time amoxicillin [From Augmentin] Allergy Rash Verified 09/03/22 13:43 clavulanic acid Allergy Rash Verified 09/03/22 13:43 [From Augmentin] escitalopram [From Lexapro] Allergy Rash Verified 09/03/22 13:43 shellfish derived Allergy Unknown Verified 09/03/22 13:43 hydroxychloroquine AdvReac Severe Unknown Verified 09/03/22 13:43 [From Plaquenil] house dust AdvReac NEEDS Verified 09/03/22 13:43 FOLLOW-UP perfume AdvReac Unknown Verified 09/03/22 13:43 pineapple AdvReac Rash Verified 09/03/22 13:43 quinine AdvReac Unknown Verified 09/03/22 13:43 strawberry AdvReac Rash Verified 09/03/22 13:43 Sulfa (Sulfonamide AdvReac Unknown Verified 09/03/22 13:43 Antibiotics) Family History Brother Heart disease Hx CABG Hypertension Diabetes Mother Hypertension Surgical History History of breast surgery History of hysterectomy History of permanent cardiac pacemaker placement (11/15/17) Social History household members: spouse Smoking Status: Never smoker alcohol intake: never substance use type: does not use caffeine: No what type of physical activity do you participate in: none seatbelt use: always do you feel safe at home: Yes ROS ROS Narrative 06/08 ROS was done and is otherwise noncontributory other than what is already documented in HPI. Physical Exam Narrative General: Awake and alert but is lethargic. HEENT: Normocephalic, atraumatic. Mucous membrane dry. PERRLA. Neck: Supple, no JVD. Trachea is midline. Heart: Normal S1, S2. No rubs, murmurs, or gallops. Lungs: Clear to auscultation bilaterally. Abdomen: Normal bowel sound, soft, nontender, no guarding or rebound. Extremities: No clubbing, cyanosis, or edema. Musculoskeletal: Full passive range of motion, no joint swelling. Psychiatric: Flat affect. Neurologic: Lethargic. Arousable but does not keep attention. No focal neurologic deficit. Skin: Warm and dry without rash. Lab / Micro Data Result Diagrams: 09/27/22 05:30 09/27/22 05:30 Labs: Laboratory Results - last 24 hr 09/26/22 23:05: POC Glucose 132 H 09/27/22 05:30: WBC 6.4, RBC 2.97 L, Hgb 8.4 L, Hct 27.4 L, MCV 92.3, MCH 28.3, MCHC 30.7 L, RDW Std Deviation 53.7 H, RDW Coeff of Ernesto 15.9 H, Plt Count 120 L, MPV 9.7, Immature Gran % (Auto) 0.600, Neut % (Auto) 59.8, Lymph % (Auto) 25.0, [place] % (Auto) 13.0 H, Eos % (Auto) 1.3, Baso % (Auto) 0.3, Absolute Neuts (auto) 3.8, Absolute Lymphs (auto) 1.60, Nucleated RBC % 0 09/27/22 05:30: Sodium 137, Potassium 4.7, Chloride 107, Carbon Dioxide 20.0 L, Anion Gap 10, BUN 50 H, Creatinine 2.97 H, Estim Creat Clear Calc 13.94, Est GFR (MDRD) Af Amer 20 L, Est GFR (MDRD) Non-Af 17 L, BUN/Creatinine Ratio 16.8, Glucose 150 H, Calcium 7.5 L 09/27/22 06:53: POC Glucose 126 H 09/27/22 11:40: POC Glucose 129 H 09/27/22 17:15: POC Glucose 100
[2022-09-27 21:09] VITALS: BP 125/71; PULSE 81; RESP 16; TEMP 37.9; O2SAT 95
--- NOTE | 2022-09-27 21:33 | PCM.HOSP.N ---
Hospitalist Note Per discussion with staff, patient still not appropriate for oral intake, failed swallow evaluation assessment. Noted to have not had her AM seizure medication secondary to this presentation. Will request speech evaluation, NPO status in interim, transition to IV depacon and IV vimpat.
[2022-09-28] VITALS (9 sets, daily range): BP systolic 128–153; BP diastolic 64–78; PULSE 65–71; RESP 17–18; TEMP 36.6–37.9; O2SAT 92–96
[2022-09-28 04:21] LABS: Bedside Glucose 96 mg/dL (74-106)
[2022-09-28] MEDS: 0.9% Normal Saline 1,000 ML 150 ML IV ×3 (05:39→22:41)
[2022-09-28 05:50] LABS: Absolute Lymphocyte Count 1.41 X10^3/uL (0.83-4.51); Absolute Neutrophil Count 2.8 X10^3/uL (2.0-7.7); Basophil# 0.03 X10^3/uL; Basophil% 0.6 % (0-1); Eosinophil# 0.13 X10^3/uL; Eosinophils% 2.6 % (0-5); Hematocrit 23.1 % (37-47); Hemoglobin 7.3 g/dL (12.0-15.0); Lymphocyte # 1.41 X10^3/ul (0.83-4.51); Lymphocyte % 28.3 % (19-41); Mean Corp Hgb Conc 31.6 g/dL (32-36); Mean Corpuscular Hgb 29.1 pg (27.0-32.0); Mean Platelet Vol. 9.7 fl (6.2-12.0); Monocyte# 0.55 X10^3/uL; NRBC Flagged by Analyzer 0 % (0-5); Neutrophil # 2.82 X10^3/uL (2.7-7.7); Neutrophil % 56.7 % (47-70); Platelet Count 115 K/mm3 (150-450); RBC Distribution Width CV 16.3 % (11.6-14.6); RBC Distribution Width SD 55.2 fl (35.1-43.9); Red Blood Count 2.51 M/mm3 (4.2-5.4)
[2022-09-28 06:25] LABS: Anion Gap 8 (5-15); BUN 34 mg/dL (7-18); BUN/Creat Ratio 31.8 RATIO (10-20); Calcium,Total 7.7 mg/dL (8.5-10.1); Chloride 117 mmol/L (98-107); Creatinine, Serum 1.07 mg/dL (0.55-1.02); EST Glomerular Filtration Rate 54 mL/min (>60); Est Glom Filt Rate - Afr Amer 65 mL/min (>60); Estimated Creatinine Clearance 38.69 ml/min; Glucose 101 mg/dL (74-106); Potassium 3.5 mmol/L (3.5-5.1); Sodium Level 146 mmol/L (136-145)
--- NOTE | 2022-09-28 07:00 | US_ITS ---
STUDY: RENAL ULTRASOUND - COMPLETE REASON FOR EXAM: Female, 72 years old. иван TECHNIQUE: Ultrasound evaluation of the kidneys was performed with real-time and static adams-scale imaging. COMPARISON: None. FINDINGS: RIGHT KIDNEY: with mild renal hypertrophy. The right kidney measures 14.6 cm x 7 cm x 6.7 cm. There is a normal cortex of the right kidney. The renal cortex measures 1.9 cm. There is no right renal mass or cyst. 2 cysts are seen. The larger cyst measures 1 cm x 1 cm x 1. There is no right hydronephrosis. DISTAL RIGHT URETER: There is non-visualization of the distal right ureter. There is no demonstrated right ureterovesical junction calculus. There is no demonstrated right ureteral jet. LEFT KIDNEY: Normal location of the left kidney, which is normal in size. The left kidney measures 12.8 cm x 6.8 cm x 7.6 cm. There is a normal cortex of the left kidney. The renal cortex measures 1.7 cm. There is a 2 cm x 1.8 cm x 1.5 cm left renal cyst. There are no left renal calculi. There is no left hydronephrosis. DISTAL LEFT URETER: There is non-visualization of the distal left ureter. There is no demonstrated left ureterovesical junction calculus. There is no demonstrated left ureteral jet. BLADDER: MACIEL catheter is seen within a nondistended urinary bladder. US/Kidney and Bladder IMPRESSION: Hypertrophy of the right kidney. Small bilateral renal cysts. Electronically Signed: Paresh Kebede MD at 9:56 EST ,
[2022-09-28 07:01] LABS: Bedside Glucose 93 mg/dL (74-106)
--- NOTE | 2022-09-28 08:35 | PCM.PN.HOSP ---
Subjective Subjective Seen with family at bedside, patient complains she aches all over but did not voice other specific complaints Objective Data Objective Data Vital Signs: Vital Signs Temp Pulse Resp BP Pulse Ox O2 Del Method O2 Flow Rate 98.2 F 71 18 131/66 H 95 Nasal Cannula 1 09/28/22 03:05 09/28/22 03:05 09/28/22 03:05 09/28/22 03:05 09/28/22 03:05 09/28/22 03:05 09/28/22 03:05 Oxygen Flow Rate (L/min) 1 Oxygen Delivery Method Nasal Cannula Weight: 78.1 kg Body Mass Index (BMI) 28.3 Intake & Output: Intake and Output for Last 24 Hours 09/26/22 09/27/22 09/28/22 23:59 23:59 23:59 Intake Total 1997.34 / 1997.34 3337.5 / 3337.5 747.5 / 747.5 Output Total 250 / 250 2560 / 3010 1900 / 1900 Balance 1748.34 / 1748.34 777.5 / 327.5 -1152.5 / -1152.5 Lab / Micro Data Result Diagrams: 09/28/22 05:35 09/28/22 05:35 Labs: Laboratory Results - last 24 hr 09/27/22 11:40: POC Glucose 129 H 09/27/22 17:15: POC Glucose 100 09/27/22 23:39: POC Glucose 96 09/28/22 05:35: WBC 5.0, RBC 2.51 L, Hgb 7.3 L, Hct 23.1 L, MCV 92.0, MCH 29.1, MCHC 31.6 L, RDW Std Deviation 55.2 H, RDW Coeff of Ernesto 16.3 H, Plt Count 115 L, MPV 9.7, Immature Gran % (Auto) 0.800, Neut % (Auto) 56.7, Lymph % (Auto) 28.3, [place] % (Auto) 11.0 H, Eos % (Auto) 2.6, Baso % (Auto) 0.6, Absolute Neuts (auto) 2.8, Absolute Lymphs (auto) 1.41, Nucleated RBC % 0 09/28/22 05:35: Sodium 146 H, Potassium 3.5, Chloride 117 H, Carbon Dioxide 21.0, Anion Gap 8, BUN 34 H, Creatinine 1.07 H, Estim Creat Clear Calc 38.69, Est GFR (MDRD) Af Amer 65, Est GFR (MDRD) Non-Af 54 L, BUN/Creatinine Ratio 31.8 H, Glucose 101, Calcium 7.7 L 09/28/22 05:47: POC Glucose 93 Micro: Microbiology 09/22/22 23:56 Urine Catheter - Catheter Urine Culture - Final Escherichia coli 09/23/22 11:00 Blood Culture (Wb) - Left Wrist Blood Culture - Preliminary No growth in 48 hours. 09/23/22 10:52 Blood Culture (Wb) - Anticubital Left Blood Culture - Preliminary No growth in 48 hours. 09/23/22 11:45 Mucosa - Nasopharyngeal Respiratory Panel (PCR) - Final Physical Exam Narrative General: Alert, answered year in place but several other questions not answered appropriately HEENT: Atraumatic, normocephalic Eyes: Anicteric, normal conjunctiva, extraocular movements grossly intact Neck: Supple Respiratory: Clear to auscultation bilaterally, normal respiratory effort Cardiovascular: Regular rate and rhythm GI: Soft, nontender, nondistended Extremities: No edema Musculoskeletal: Would not give thumbs up with left hand was able to move fingers, no difficulty with right upper extremity Neuro: Less movement in left hand compared to right which per family is chronic Skin: No rashes appreciated Psych: Attempted to be cooperative Assessment & Plan Assessment/Plan (1) CHETNA (acute kidney injury): (2) Chronic kidney disease, stage 3a: (3) Hypertension: (4) Urinary retention: PLAN: Plan #Acute on chronic normocytic anemia. Hemoglobin 11.4 on 08/17 and on 09/22 was 10.8, has progressively down trended and today is 7.3 FOBT negative, iron panel suggestive of anemia of chronic disease Folic acid and B12 within normal limits Will recheck in the a.m., if stable may be able to transfer to TCU given negative FOBT and no other obvious bleeding #Dysphagia Modified diet and recommendations If tolerating meds still in applesauce this evening may be able to go tomorrow #Seizure disorder Converted seizure medicines back to p.o. #CHETNA on CKD stage III AA secondary to urinary retention and UTI On Rocephin On tolterodine Dickson placed Improved significantly today On IV fluids On karendia chronically-held during admission Nephrology following Ramipril held #Type 2 diabetes mellitus Sliding scale insulin and glucose checks On Januvia at home #Tachybradycardia syndrome Status post pacemaker placement #Physical deconditioning Will need SNF on discharge #DVT ppx: Emmy Hirsch MD Time spent in the patient's overall evaluation,decision-making process, review of diagnostic data, adjustment of management, discussion with other providers, nursing nursing and ancillary staff involved in patient's care documentation, 35 minutes Charges/Coding Visit Charges Inpatient E&M: 08361 Subs Hosp L2
[2022-09-28 09:13] LABS: Vitamin B12 321 pg/mL (211-911)
[2022-09-28 09:25] LABS: Ferritin 828 ng/mL (8-252); Iron 27 ug/dL (50-170); Iron Binding Capacity,Total 124 ug/dL (250-450); PERCENT IRON SATURATION 21.8 % (15.0-55.0)
[2022-09-28] MEDS: 0.9% Saline Lock 10 ML Syringe IV (09:49)
[2022-09-28] MEDS: FINERENONE 20 MG TABLET PO (10:42)
[2022-09-28] MEDS: Pregabalin 50 MG Capsule 100 MG PO ×2 (10:42→20:51)
[2022-09-28] MEDS: Enoxaparin 40 MG/0.4 ML Syringe SC (10:42)
[2022-09-28] MEDS: amLODIPine 5 MG Tablet PO (10:42)
--- NOTE | 2022-09-28 10:59 | CASEMGMT ---
Social Work As per physician, pt is not ready. SW spoke w/Kay in TCU, precert was attained, SW did let her know pt is not ready however. SW will continue to follow. LUCIEN Brewster
[2022-09-28] MEDS: Ceftriaxone 1 GM/50 ML BAG IV (11:07)
[2022-09-28 11:30] LABS: Bedside Glucose 134 mg/dL (74-106)
[2022-09-28 16:40] LABS: Bedside Glucose 108 mg/dL (74-106)
[2022-09-28] MEDS: Mirtazapine 30 MG Tablet PO (20:46)
[2022-09-28] MEDS: Atorvastatin Calcium 20 MG Tablet PO (20:46)
[2022-09-28] MEDS: Tolterodine Tartrate 2 MG CAP.SA PO (20:46)
[2022-09-28] MEDS: Divalproex (ER) 500 MG Tablet 1000 MG PO (20:51)
[2022-09-28] MEDS: Lacosamide 100 MG Tablet PO (22:16)
[2022-09-29] VITALS (7 sets, daily range): BP systolic 157–174; BP diastolic 70–100; PULSE 60–64; RESP 16–18; TEMP 36.4–37.2; O2SAT 92–97
[2022-09-29 00:11] LABS: Bedside Glucose 137 mg/dL (74-106)
[2022-09-29 04:34] LABS: Absolute Lymphocyte Count 1.44 X10^3/uL (0.83-4.51); Absolute Neutrophil Count 1.8 X10^3/uL (2.0-7.7); Basophil# 0.02 X10^3/uL; Basophil% 0.5 % (0-1); Eosinophil# 0.12 X10^3/uL; Eosinophils% 2.9 % (0-5); Hematocrit 22.7 % (37-47); Lymphocyte # 1.44 X10^3/ul (0.83-4.51); Lymphocyte % 34.8 % (19-41); Mean Corp Hgb Conc 30.8 g/dL (32-36); Mean Corpuscular Hgb 28.3 pg (27.0-32.0); Mean Corpuscular Volume 91.9 fL (81-99); Mean Platelet Vol. 9.6 fl (6.2-12.0); Monocyte# 0.64 X10^3/uL; Monocyte% 15.5 % (0-10); NRBC Flagged by Analyzer 0 % (0-5); Neutrophil # 1.79 X10^3/uL (2.7-7.7); Neutrophil % 43.2 % (47-70); Platelet Count 127 K/mm3 (150-450); RBC Distribution Width CV 16.3 % (11.6-14.6); RBC Distribution Width SD 54.9 fl (35.1-43.9); Red Blood Count 2.47 M/mm3 (4.2-5.4); White Blood Count 4.1 K/mm3 (4.4-11.0)
[2022-09-29 04:59] LABS: ALB/GLOB Ratio 0.3 RATIO (0.9-2.4); AST(SGOT) 76 U/L (15-37); Alanine Aminotransfer ALT/SGPT < 6 U/L (13-56); Albumin, Serum 1.4 g/dL (3.2-5.0); Alkaline Phosphatase 70 U/L (45-117); Anion Gap 6 (5-15); BUN 17 mg/dL (7-18); BUN/Creat Ratio 25.6 RATIO (10-20); Calcium,Total 7.5 mg/dL (8.5-10.1); Chloride 116 mmol/L (98-107); Creatinine, Serum 0.66 mg/dL (0.55-1.02); EST Glomerular Filtration Rate 93 mL/min (>60); Est Glom Filt Rate - Afr Amer 113 mL/min (>60); Globulin 4.2 g/dL (2.2-4.2); Glucose 114 mg/dL (74-106); Potassium 3.2 mmol/L (3.5-5.1); Protein, Total 5.6 g/dL (6.4-8.2); Sodium Level 146 mmol/L (136-145)
[2022-09-29] MEDS: 0.9% Normal Saline 1,000 ML 150 ML IV (05:08)
[2022-09-29 07:10] LABS: Bedside Glucose 118 mg/dL (74-106)
--- NOTE | 2022-09-29 09:27 | PCM.PN.HOSP ---
Objective Data Objective Data Vital Signs: Vital Signs Temp Pulse Resp BP Pulse Ox O2 Del Method O2 Flow Rate 98.9 F 61 16 157/70 H 92 Room Air 1 09/29/22 04:00 09/29/22 04:00 09/29/22 04:00 09/29/22 04:00 09/29/22 04:00 09/29/22 06:23 09/28/22 08:32 Oxygen Flow Rate (L/min) 1 Oxygen Delivery Method Room Air Weight: 75 kg Body Mass Index (BMI) 28.3 Intake & Output: Intake and Output for Last 24 Hours 09/27/22 09/28/22 09/29/22 23:59 23:59 23:59 Intake Total 3337.5 / 3337.5 3140.0 / 3140.0 967.5 / 967.5 Output Total 2560 / 3010 4900 / 4900 850 / 850 Balance 777.5 / 327.5 -1760.0 / -1760.0 117.5 / 117.5 Lab / Micro Data Result Diagrams: 09/29/22 04:05 09/29/22 04:05 Labs: Laboratory Results - last 24 hr 09/28/22 11:10: POC Glucose 134 H 09/28/22 16:04: POC Glucose 108 H 09/28/22 22:16: POC Glucose 137 H 09/29/22 04:05: WBC 4.1 L, RBC 2.47 L, Hgb 7.0 L, Hct 22.7 L, MCV 91.9, MCH 28.3, MCHC 30.8 L, RDW Std Deviation 54.9 H, RDW Coeff of Ernesto 16.3 H, Plt Count 127 L, MPV 9.6, Immature Gran % (Auto) 3.100 H, Neut % (Auto) 43.2 L, Lymph % (Auto) 34.8, [place] % (Auto) 15.5 H, Eos % (Auto) 2.9, Baso % (Auto) 0.5, Absolute Neuts (auto) 1.8 L, Absolute Lymphs (auto) 1.44, Nucleated RBC % 0 09/29/22 04:05: Sodium 146 H, Potassium 3.2 L, Chloride 116 H, Carbon Dioxide 24.0, Anion Gap 6, BUN 17, Creatinine 0.66, Estim Creat Clear Calc 41.40, Est GFR (MDRD) Af Amer 113, Est GFR (MDRD) Non-Af 93, BUN/Creatinine Ratio 25.6 H, Glucose 114 H, Calcium 7.5 L, Total Bilirubin 0.40, AST 76 H, ALT < 6 L, Alkaline Phosphatase 70, Total Protein 5.6 L, Albumin 1.4 L, Globulin 4.2, Albumin/Globulin Ratio 0.3 L 09/29/22 06:21: POC Glucose 118 H Micro: Microbiology 09/28/22 17:10 Stool Stool Occult Blood (NICOLA) - Final 09/23/22 11:00 Blood Culture (Wb) - Left Wrist Blood Culture - Final No growth in 5 days. 09/23/22 10:52 Blood Culture (Wb) - Anticubital Left Blood Culture - Final No growth in 5 days. 09/22/22 23:56 Urine Catheter - Catheter Urine Culture - Final Escherichia coli 09/23/22 11:45 Mucosa - Nasopharyngeal Respiratory Panel (PCR) - Final Radiography Diagnostic Testing: Radiology Impression Renal Ultrasound 09/28/22 07:00 IMPRESSION: Hypertrophy of the right kidney. Small bilateral renal cysts. Electronically Signed: Paresh Kebede MD at 9:56 EST , Physical Exam Narrative General: Alert, answered year in place but several other questions not answered appropriately HEENT: Atraumatic, normocephalic Eyes: Anicteric, normal conjunctiva, extraocular movements grossly intact Neck: Supple Respiratory: Clear to auscultation bilaterally, normal respiratory effort Cardiovascular: Regular rate and rhythm GI: Soft, nontender, nondistended Extremities: No edema Musculoskeletal: Would not give thumbs up with left hand was able to move fingers, no difficulty with right upper extremity Neuro: Less movement in left hand compared to right which per family is chronic Skin: No rashes appreciated Psych: Attempted to be cooperative Assessment & Plan Assessment/Plan (1) CHETNA (acute kidney injury): (2) Chronic kidney disease, stage 3a: (3) Hypertension: (4) Urinary retention: PLAN: Plan #Acute on chronic normocytic anemia. Hemoglobin 11.4 on 12/19 and on 09/22 was 10.8, has progressively down trended and today is 7.3 FOBT negative, iron panel suggestive of anemia of chronic disease Folic acid and B12 within normal limits Will recheck in the a.m., if stable may be able to transfer to TCU given negative FOBT and no other obvious bleeding 09/29: FOBT negative, all cell lines decreased and suspect there is a component of hemodilution but additionally in rare cases Rocephin can cause myelosuppression and agranulocytosis given dropping counts and dropping neutrophil count will change Rocephin. Though further decrease possibly also due to phlebotomy she is at the threshold of 7 will transfuse a unit. Can transfer this evening after her unit of blood #Dysphagia Modified diet and recommendations If tolerating meds still in applesauce this evening may be able to go tomorrow #Seizure disorder Converted seizure medicines back to p.o. #CHETNA on CKD stage III AA secondary to urinary retention and UTI On Rocephin On tolterodine Dickson placed Improved significantly today On IV fluids On karendia chronically-held during admission Nephrology following Ramipril held 09/29: Resolved #Type 2 diabetes mellitus Sliding scale insulin and glucose checks On Januvia at home #Tachybradycardia syndrome Status post pacemaker placement #Physical deconditioning Will need SNF on discharge #DVT ppx: Lovenox Lavern Hirsch MD Time spent in the patient's overall evaluation,decision-making process, review of diagnostic data, adjustment of management, discussion with other providers, nursing nursing and ancillary staff involved in patient's care documentation, 35 minutes
[2022-09-29 10:24] LABS: Bacteria 0 SEEN /hpf (None Seen); Mucous, Urine 0 SEEN /hpf (<or=2+); Squamous Epithelial Cells - UA 0 SEEN /hpf (5-10)
[2022-09-29 10:35] LABS: Color, Urine Yellow (Yellow); Glucose, Dipstick Normal (Normal); Ketone-Dipstick Negative (Negative); Leukocyte Esterase-Dipstick 100 /ul (Negative); Nitrite-Dipstick Negative (Negative); Occult Blood-Urine 250 /ul (Negative); Protein-Dipstick 100 mg/dl (Negative); Urine Bilirubin Dipstick Negative (Negative); Urine Clarity Clear (Clear); Urine Urobilinogen 1 mg/dl (Normal); Urine pH 6.5 (5.0 - 8.0)
[2022-09-29] MEDS: Enoxaparin 40 MG/0.4 ML Syringe SC (10:36)
[2022-09-29] MEDS: Pregabalin 50 MG Capsule 100 MG PO (10:36)
[2022-09-29] MEDS: Divalproex (ER) 500 MG Tablet PO (10:36)
[2022-09-29] MEDS: amLODIPine 5 MG Tablet PO ×2 (10:36→14:55)
[2022-09-29] MEDS: FINERENONE 20 MG TABLET PO (10:37)
[2022-09-29] MEDS: Potassium Chloride 10mEq/100mL 10 MEQ/100 ML IV.SOLN. 100 MEQ IV BOLUS ×4 (10:37→13:52)
[2022-09-29] MEDS: levoFLOXacin 750 MG Tablet PO (11:00)
[2022-09-29 11:01] LABS: Red Blood Cells-Urine 25-50 SEEN /hpf (0-5); White Blood Cells 10-25 SEEN /hpf (0-5)
[2022-09-29 11:56] LABS: Bedside Glucose 125 mg/dL (74-106)
[2022-09-29] MEDS: 0.9% Saline Lock 10 ML Syringe IV (13:13)
--- NOTE | 2022-09-29 14:47 | CASEMGMT ---
SW spoke with patient and her . SW made sure they were both aware patient will be going to TCU today after her blood transfusion. Plan: d/c to [facility] TCU under skilled level of care. Aleksandra CONROY
--- NOTE | 2022-09-29 16:47 | NURSING ---
Called report to Rhina in TCU.
[2022-09-29 16:50] LABS: Bedside Glucose 109 mg/dL (74-106)
--- NOTE | 2022-09-29 16:56 | TREXTCAR_ITS ---
Diet Diet Order/Speech Therapy: 09/28/22 10:18 Diet: Carbohydrate Controlled Food consistency:: Easy to Chew Liquid Consistency:: Regular/Thin Type of Dietary Supplement:: Ensure Pudding w/ lunch Is pt able to select menu?: No Diet Comments: TOTAL FEED ONLY WHEN FULLY ALERT, liquids by single sip by straw Routine Orders/Code Status Suppository Type: Dulcolax 10mg Suppository Frequency: Daily PRN Dickson Catheter Size: 16 Change Dickson Catheter: Inserted 09/27/22 at 12:32 Routine Lab Work: CBC (1-2 days) and BMP (1-2 days) Code Status: Full Code Therapies Physical Therapy: Eval and Treat Occupational Therapy: Eval and Treat Speech Therapy: Eval and Treat Problem/Diagnosis (1) CHETNA (acute kidney injury): Status: Acute Code(s): N17.9 - Acute kidney failure, unspecified (2) Chronic kidney disease, stage 3a: Status: Chronic Code(s): N18.31 - Chronic kidney disease, stage 3a (3) Hypertension: Status: Chronic Code(s): I10 - Essential (primary) hypertension (4) Urinary retention: Status: Acute Code(s): R33.9 - Retention of urine, unspecified Plan #Acute on chronic normocytic anemia. #Dysphagia #Seizure disorder #CHETNA on CKD stage III AA secondary to urinary retention and UTI- chetna resolved #Type 2 diabetes mellitus #Tachybradycardia syndrome #Physical deconditioning Ms. Nash is a 72-year-old female with a history of paroxysmal A. 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 This had been going on over several weeks and was more pronounced over several days prior to presentation. She additionally had decreased p.o. intake and her brought her to the ER for evaluation. In the ED she had fairly unremarkable work-up and CT brain showed an old right temporoparietal infarct and generalized atrophy with moderately low-density bilaterally in deep matter which is likely small vessel ischemic changes. She is given fluids and medicine called for admission. She was admitted due to her worsening weakness and debility and was started on fluids. UA did not have marked bacteria so initial antibiotic therapy was deferred pending culture results. PT/OT were consulted. She was then noted to have an CHETNA with a baseline creatinine of 0.75 and then was 1.30. Ultimately due to continued worsening ramipril was held and nephrology consulted. Retroperitoneal ultrasound showed hypertrophy of her right kidney but no hydronephrosis or other findings in her creatinine returned to normal. She did have Dickson placed (Inserted 09/27/22 at 12:32) due to retention with 1 L out and urine culture grew E. coli and she was diagnosed with cystitis and started on antibiotics which did improve her mental status. She was on Rocephin for her UTI initially but due to neutrophil count dropping Rocephin was stopped and she was changed to Levaquin. In regards to her seizure disorder she did have a rapid response on 09/23 due to concern for a breakthrough seizure but improved and was maintained on seizure precautions and her Vimpat and Depakote, Depakote level was 95 on admission. No further seizure-like activity. Follows with Dr. Manjinder Medina with [facility] neurology in [place] as an outpatient. During her admission she did have a period where there was concerns for dysphagia and she was made temporarily n.p.o. and had a swallow study and modified diet was started. She was able to tolerate meds in applesauce and will recommend continued speech therapy and precautions as per the recommendations. Additionally she was noted to have chronic normocytic anemia that was downtrending during admission. FOBT was negative and iron panel was suggestive of anemia of chronic disease. Folic acid and B12 within normal limits. Repeat the following day was 7.0 which is within the margin of error and minimally down trended and could also be accounted for with blood draws and some of the hematuria that has persisted based on UA (though improved). As she was at the threshold she was transferred 1 unit of packed red blood cells. Suspect that the low hemoglobin is multifactorial, she did have decrease in all cell lines likely due to her significant volume expansion with IV fluids over several days with her initial ugo hematuria and her blood draws as well as her chronic disease. FOBT is negative and there had been no noted blood in her stool or any other bleeding. Was felt she was stable for transfer to TCU with repeat blood draw in 1 to 2 days. Discharge instructions as followed: DISCHARGE INSTRUCTIONS PLEASE READ -You you will need 3 more days of levofloxacin with your next dose being / - Your amlodipine was increased to 10 mg - Your Kerendia was also increased to 20 mg -You will need a BMP and CBC in the next 1 to 2 days to monitor blood count and kidney numbers -Your simvastatin was changed to atorvastatin due to medication interaction ?With continued improvement may be able to tolerate Dickson removal and void trial -Continue your seizure medications and follow-up with your doctor, Dr. Manjinder Medina, with neurology upon discharge -For any concerning signs or symptoms please call 911 or proceed to the nearest emergency department Allergies/Procedures Done in Hospital Allergies amoxicillin [From Augmentin] Allergy (Verified 09/03/22 13:43) Rash RASH ON FACE clavulanic acid [From Augmentin] Allergy (Verified 09/03/22 13:43) Rash RASH ON FACE escitalopram [From Lexapro] Allergy (Verified 09/03/22 13:43) Rash shellfish derived Allergy (Verified 09/03/22 13:43) Unknown hydroxychloroquine [From Plaquenil] Adverse Reaction (Severe, Verified 09/03/22 13:43) Unknown house dust Adverse Reaction (Verified 09/03/22 13:43) NEEDS FOLLOW-UP perfume Adverse Reaction (Verified 09/03/22 13:43) Unknown pineapple Adverse Reaction (Verified 09/03/22 13:43) Rash quinine Adverse Reaction (Verified 09/03/22 13:43) Unknown strawberry Adverse Reaction (Verified 09/03/22 13:43) Rash Sulfa (Sulfonamide Antibiotics) Adverse Reaction (Verified 09/03/22 13:43) Unknown Procedures: - (Renal ultrasound, chest x-ray, brain CT) Type of Care/Length of Stay Estimated LOS: Convalescent Care Less Than 30 days Type of Care Needed: Skilled Rehab Potential: Fair Prognosis: Fair Additional Orders/Day of Discharge Day of Discharge: 09/26/22 Dietary and Speech Recommendations Dietitian Recommendations/Changes: Continue carbohydrate-controlled diet for now as PO established with pureed food. Liberalize diet as indicated. Will add ensure pudding w/ lunch for tolerance. Additional ONS as needed. Discharge Plan Admission Admit Date/Time: 09/25/22 09:17 Primary Reason for Your Visit: Weakness Attending Provider: Lavern Hirsch Primary Care Provider: Hannah Riggs Consulting Providers: Cortney Akers ; [place] Hector David Instructions Patient Instructions: ED Fall Prevention Additional Instructions / Restrictions: DISCHARGE INSTRUCTIONS PLEASE READ -You you will need 3 more days of levofloxacin with your next dose being / - Your amlodipine was increased to 10 mg - Your Kerendia was also increased to 20 mg -You will need a BMP and CBC in the next 1 to 2 days to monitor blood count and kidney numbers -Your simvastatin was changed to atorvastatin due to medication interaction ?With continued improvement may be able to tolerate Dickson removal and void trial -Continue your seizure medications and follow-up with your doctor, Dr. Manjinder Medina, with neurology upon discharge -For any concerning signs or symptoms please call 911 or proceed to the nearest emergency department Discharge Orders/Prescriptions Prescriptions: New sennosides-docusate sodium [Stool Softener-Stimulant Laxat] 8.6-50 mg Tablet 2 tab PO BID PRN PRN (Reason: Constipation) Qty: 0 0RF amlodipine 10 mg Tablet 10 mg PO DAILY 30 Days Qty: 30 0RF Kerendia 20 mg Tablet 20 mg PO DAILY Qty: 0 0RF levofloxacin 750 mg Tablet 750 mg PO DAILY@0600 3 Days Qty: 3 0RF atorvastatin 20 mg Tablet 20 mg PO QHS 30 Days Qty: 0 0RF Continued oxybutynin chloride 5 MG tablet 10 mg PO QHS Label Comments: bladder alendronate 70 mg Tablet 70 mg PO SA divalproex [Depakote ER] 500 mg Tablet Extended Release 24 Hr 500 mg PO DAILY divalproex [Depakote ER] 500 mg Tablet Extended Release 24 Hr 1,000 mg PO QHS Januvia 50 mg Tablet 100 mg PO DAILY Rx Instructions: with first meal lacosamide [Vimpat] 100 mg tablet 100 mg PO DAILY Label Comments: TAKE 1 TABLET BY MOUTH EVERY MORNING acetaminophen 500 mg Tablet 1,000 mg PO Q6H PRN PRN (Reason: Pain Score 1-10) Qty: 0 0RF lacosamide [Vimpat] 100 mg Tablet 150 mg PO QHS Qty: 0 0RF Kerendia 20 mg Tablet 10 mg PO DAILY Qty: 0 0RF mirtazapine 15 mg tablet 30 mg PO QHS pregabalin 100 mg Capsule 100 mg PO BID 5 Days Qty: 10 0RF ramipril 10 mg capsule 10 mg PO DAILY Qty: 90 3RF Discontinued simvastatin 40 MG tablet 40 mg PO QHS Label Comments: cholesterol amlodipine 5 MG tablet 5 mg PO DAILY metformin 500 mg tablet extended release 24 hr 1,000 mg PO BID Label Comments: TAKE 2 TABLETS BY MOUTH TWICE DAILY Referrals / Follow Up: Hannah Riggs DO [Primary Care Provider] - Within 2 Weeks Disposition Disposition (needs filled in before D/C Order can be placed): [facility]
--- NOTE | 2022-09-29 17:17 | DS.PCM_ITS ---
Providers Date of Admission: 09/25/22 Date of Discharge: 09/29/22 Primary Care Physician: Dr. Hannah Riggs, Consultations 09/27/22 11:51 Consult: Nephrology Routine Consulting Provider: Cleveland Hector Reason for Consult: chetna EMERGENT Consult: No MD Notified: Yes Date Notified: 09/27/22 Time Notified: 11:52 Method of Notification: Text Reason For Visit: FTT ADULT,FALLS Diagnosis Discharge Diagnosis (1) CHETNA (acute kidney injury): Status: Acute Code(s): N17.9 - Acute kidney failure, unspecified (2) Chronic kidney disease, stage 3a: Status: Chronic Code(s): N18.31 - Chronic kidney disease, stage 3a (3) Hypertension: Status: Chronic Code(s): I10 - Essential (primary) hypertension (4) Urinary retention: Status: Acute Code(s): R33.9 - Retention of urine, unspecified Plan #Acute on chronic normocytic anemia. #Dysphagia #Seizure disorder #CHETNA on CKD stage III AA secondary to urinary retention and UTI- chetna resolved #Type 2 diabetes mellitus #Tachybradycardia syndrome #Physical deconditioning Medications at Discharge Home Medications oxybutynin chloride 5 mg tablet,extended release 24 hr 10 mg PO QHS bladder 05/20/17 alendronate 70 mg tablet 70 mg PO SA BONES 11/19/21 divalproex 500 mg tablet,extended release 24 hr (Depakote ER) 1,000 mg PO QHS Seizures 11/19/21 divalproex 500 mg tablet,extended release 24 hr (Depakote ER) 500 mg PO DAILY Seizures 11/19/21 lacosamide 100 mg tablet (Vimpat) 100 mg PO DAILY SEIZURES 11/19/21 sitagliptin phosphate 50 mg tablet (Januvia) 100 mg PO DAILY Diabetes 11/19/21 acetaminophen 500 mg tablet 1,000 mg PO Q6H PRN PRN Pain Score 1-10 #0 tabs 12/10/21 finerenone 20 mg tablet (Kerendia) 10 mg PO DAILY #0 tabs 12/10/21 lacosamide 100 mg tablet (Vimpat) 150 mg PO QHS #0 tabs 12/10/21 ramipril 10 mg capsule 10 mg PO DAILY BP #90 caps 01/27/22 mirtazapine 15 mg tablet 30 mg PO QHS 09/23/22 sennosides 8.6 mg-docusate sodium 50 mg tablet (Stool Softener-Stimulant La xative) 2 tab PO BID PRN PRN Constipation #0 tabs 09/26/22 amlodipine 10 mg tablet 10 mg PO DAILY 30 days #30 tabs 09/29/22 atorvastatin 20 mg tablet 20 mg PO QHS 30 days #0 tabs 09/29/22 finerenone 20 mg tablet (Kerendia) 20 mg PO DAILY #0 tabs 09/29/22 levofloxacin 750 mg tablet 750 mg PO DAILY@0600 3 days #3 tabs 09/29/22 pregabalin 100 mg capsule 100 mg PO BID Nerve Pain 5 days #10 caps 09/29/22 Hospital Course Procedures - (Kidney ultrasound, brain CT, chest x-ray) Summary of Care Provided Minutes Spent on Discharge: 35 Hospital Course: Ms. Nash is a 72-year-old female with a history of paroxysmal A. fib, seizure disorder, type 2 diabetes mellitus, tachybradycardia status post pacemaker, kidney disease, hypertension who presented to [facility] 09/23/2021 for debility, weakness, frequent falls. This had been going on over several weeks and was more pronounced over several days prior to presentation. She additionally had decreased p.o. intake and her brought her to the ER for evaluation. In the ED she had fairly unremarkable work-up and CT brain showed an old right temporoparietal infarct and generalized atrophy with moderately low-density bilaterally in deep matter which is likely small vessel ischemic changes. She is given fluids and medicine called for admission. She was admitted due to her worsening weakness and debility and was started on fluids. UA did not have marked bacteria so initial antibiotic therapy was deferred pending culture results. PT/OT were consulted. She was then noted to have an CHETNA with a baseline creatinine of 0.75 and then was 1.30. Ultimately due to continued worsening ramipril was held and nephrology consulted. Retroperitoneal ultrasound showed hypertrophy of her right kidney but no hydronephrosis or other findings in her creatinine returned to normal. She did have Dickson placed (Inserted 09/27/22 at 12:32) due to retention with 1 L out and urine culture grew E. coli and she was diagnosed with cystitis and started on antibiotics which did improve her mental status. She was on Rocephin for her UTI initially but due to neutrophil count dropping Rocephin was stopped and she was changed to Levaquin. In regards to her seizure disorder she did have a rapid response on 09/23 due to concern for a breakthrough seizure but improved and was maintained on seizure precautions and her Vimpat and Depakote, Depakote level was 95 on admission. No further seizure-like activity. Follows with Dr. Manjinder Medina with [facility] neurology in [place] as an outpatient. During her admission she did have a period where there was concerns for dysphagia and she was made temporarily n.p.o. and had a swallow study and modified diet was started. She was able to tolerate meds in applesauce and will recommend continued speech therapy and precautions as per the recommendations. Additionally she was noted to have chronic normocytic anemia that was downtrending during admission. FOBT was negative and iron panel was suggestive of anemia of chronic disease. Folic acid and B12 within normal limits. Repeat the following day was 7.0 which is within the margin of error and minimally down trended and could also be accounted for with blood draws and some of the hematuria that has persisted based on UA (though improved). As she was at the threshold she was transferred 1 unit of packed red blood cells. Suspect that the low hemoglobin is multifactorial, she did have decrease in all cell lines likely due to her significant volume expansion with IV fluids over several days with her initial ugo hematuria and her blood draws as well as her chronic disease. FOBT is negative and there had been no noted blood in her stool or any other bleeding. Was felt she was stable for transfer to TCU with repeat blood draw in 1 to 2 days. On day of discharge mentation continued to improve and she was more alert and interactive, still having some diffuse musculoskeletal pain, Dickson in place and draining. Discharge instructions as followed: DISCHARGE INSTRUCTIONS PLEASE READ -You you will need 3 more days of levofloxacin with your next dose being 09/30 - Your amlodipine was increased to 10 mg - Your Kerendia was also increased to 20 mg -You will need a BMP and CBC in the next 1 to 2 days to monitor blood count and kidney numbers -Your simvastatin was changed to atorvastatin due to medication interaction ?With continued improvement may be able to tolerate Dickson removal and void trial -Continue your seizure medications and follow-up with your doctor, Dr. Manjinder Medina, with neurology upon discharge -For any concerning signs or symptoms please call 911 or proceed to the nearest emergency department Physical Exam Narrative General: Alert, more interactive today HEENT: Atraumatic, normocephalic Eyes: Anicteric, normal conjunctiva, extraocular movements grossly intact Neck: Supple Respiratory: Clear to auscultation bilaterally, normal respiratory effort Cardiovascular: Regular rate and rhythm GI: Soft, minimal discomfort with deep palpation with hand but not with stethoscope, no rebound, guarding, rigidity, nondistended Extremities: No edema Musculoskeletal: Continues to move right extremity greater than left extremity Neuro: Less movement in left hand compared to right which per family is chronic Skin: No rashes appreciated Psych: Attempted to be cooperative Weight / BMI Weight Weight: 75 kg Body Mass Index (BMI) 28.3 ABG / Lab / Microbiology Data Result Diagrams: 09/29/22 04:05 09/29/22 04:05 Laboratory: Laboratory Results - last 24 hr 09/28/22 22:16: POC Glucose 137 H 09/29/22 04:05: WBC 4.1 L, RBC 2.47 L, Hgb 7.0 L, Hct 22.7 L, MCV 91.9, MCH 28.3, MCHC 30.8 L, RDW Std Deviation 54.9 H, RDW Coeff of Ernesto 16.3 H, Plt Count 127 L, MPV 9.6, Immature Gran % (Auto) 3.100 H, Neut % (Auto) 43.2 L, Lymph % (Auto) 34.8, [place] % (Auto) 15.5 H, Eos % (Auto) 2.9, Baso % (Auto) 0.5, Absolute Neuts (auto) 1.8 L, Absolute Lymphs (auto) 1.44, Nucleated RBC % 0 09/29/22 04:05: Sodium 146 H, Potassium 3.2 L, Chloride 116 H, Carbon Dioxide 24.0, Anion Gap 6, BUN 17, Creatinine 0.66, Estim Creat Clear Calc 41.40, Est GFR (MDRD) Af Amer 113, Est GFR (MDRD) Non-Af 93, BUN/Creatinine Ratio 25.6 H, Glucose 114 H, Calcium 7.5 L, Total Bilirubin 0.40, AST 76 H, ALT < 6 L, Alkaline Phosphatase 70, Total Protein 5.6 L, Albumin 1.4 L, Globulin 4.2, Albumin/Globulin Ratio 0.3 L 09/29/22 06:21: POC Glucose 118 H 09/29/22 10:15: Urine Color Yellow, Urine Clarity Clear, Urine pH 6.5, Ur Specific [place] 1.010, Urine Protein 100 H, Urine Glucose (UA) Normal, Urine Ketones Negative, Urine Occult Blood 250 H, Urine Nitrite Negative, Urine Bilirubin Negative, Urine Urobilinogen 1 H, Ur Leukocyte Esterase 100 H, Urine RBC 25-50 SEEN, Urine WBC 10-25 SEEN, Ur Squamous Epith Cells 0 SEEN, Urine Bacteria 0 SEEN, Urine Mucus 0 SEEN 09/29/22 10:35: Blood Type O POSITIVE, Antibody Screen NEGATIVE, Crossmatch See Detail 09/29/22 11:30: POC Glucose 125 H 09/29/22 16:28: POC Glucose 109 H Microbiology: Microbiology 09/29/22 14:20 Nasal Secretion SARS-CoV-2 Antigen (Rapid) - Final 09/28/22 17:10 Stool Stool Occult Blood (NICOLA) - Final 09/23/22 11:00 Blood Culture (Wb) - Left Wrist Blood Culture - Final No growth in 5 days. 09/23/22 10:52 Blood Culture (Wb) - Anticubital Left Blood Culture - Final No growth in 5 days. 09/22/22 23:56 Urine Catheter - Catheter Urine Culture - Final Escherichia coli 09/23/22 11:45 Mucosa - Nasopharyngeal Respiratory Panel (PCR) - Final D/C Instructions Discharge Diet: 1800 Calorie Control Diet Call your doctor if you observe: Fever of 101 or Higher, Shortness of breath, Fainting spells and Chest pain Meaningful Use Info Meaningful Use Diagnoses (Choose all that apply): None applicable Discharge Plan Admission Admit Date/Time: 09/25/22 09:17 Primary Reason for Your Visit: Weakness Attending Provider: Lavern Hirsch Primary Care Provider: Hannah Riggs Consulting Providers: Cortney Akers ; Clevleand Hector ; Ronak Espinoza Instructions Patient Instructions: ED Fall Prevention Additional Instructions / Restrictions: DISCHARGE INSTRUCTIONS PLEASE READ -You you will need 3 more days of levofloxacin with your next dose being 2/ - Your amlodipine was increased to 10 mg - Your Kerendia was also increased to 20 mg -You will need a BMP and CBC in the next 1 to 2 days to monitor blood count and kidney numbers -Your simvastatin was changed to atorvastatin due to medication interaction ?With continued improvement may be able to tolerate Dickson removal and void trial -Continue your seizure medications and follow-up with your doctor, Dr. Manjinder Medina, with neurology upon discharge -For any concerning signs or symptoms please call 911 or proceed to the nearest emergency department Discharge Orders/Prescriptions Prescriptions: New sennosides-docusate sodium [Stool Softener-Stimulant Laxat] 8.6-50 mg Tablet 2 tab PO BID PRN PRN (Reason: Constipation) Qty: 0 0RF amlodipine 10 mg Tablet 10 mg PO DAILY 30 Days Qty: 30 0RF Kerendia 20 mg Tablet 20 mg PO DAILY Qty: 0 0RF levofloxacin 750 mg Tablet 750 mg PO DAILY@0600 3 Days Qty: 3 0RF atorvastatin 20 mg Tablet 20 mg PO QHS 30 Days Qty: 0 0RF Continued oxybutynin chloride 5 MG tablet 10 mg PO QHS Label Comments: bladder alendronate 70 mg Tablet 70 mg PO SA divalproex [Depakote ER] 500 mg Tablet Extended Release 24 Hr 500 mg PO DAILY divalproex [Depakote ER] 500 mg Tablet Extended Release 24 Hr 1,000 mg PO QHS Januvia 50 mg Tablet 100 mg PO DAILY Rx Instructions: with first meal lacosamide [Vimpat] 100 mg tablet 100 mg PO DAILY Label Comments: TAKE 1 TABLET BY MOUTH EVERY MORNING acetaminophen 500 mg Tablet 1,000 mg PO Q6H PRN PRN (Reason: Pain Score 1-10) Qty: 0 0RF lacosamide [Vimpat] 100 mg Tablet 150 mg PO QHS Qty: 0 0RF Kerendia 20 mg Tablet 10 mg PO DAILY Qty: 0 0RF mirtazapine 15 mg tablet 30 mg PO QHS pregabalin 100 mg Capsule 100 mg PO BID 5 Days Qty: 10 0RF ramipril 10 mg capsule 10 mg PO DAILY Qty: 90 3RF Discontinued simvastatin 40 MG tablet 40 mg PO QHS Label Comments: cholesterol amlodipine 5 MG tablet 5 mg PO DAILY metformin 500 mg tablet extended release 24 hr 1,000 mg PO BID Label Comments: TAKE 2 TABLETS BY MOUTH TWICE DAILY Referrals / Follow Up: Hannah Riggs DO [Primary Care Provider] - Within 2 Weeks Disposition Disposition (needs filled in before D/C Order can be placed): Longterm Facility Charges/Coding Visit Charges Inpatient E&M: 93414 Disch Hosp >30min
== END 2022-09-29 18:36 | disposition skilled nursing facility (03) | DRG 684 ==
LOC: ED 09-23 02:22 → PCU 09-23 02:47
PROVIDERS: Internal Medicine; Admitting Provider Family Medicine; Emergency Provider Emergency Medicine; PCP Internal Medicine; Visit Provider Internal Medicine
DX: N17.9 Acute kidney failure, unspecified (principal); D63.1 Anemia in chronic kidney disease; R62.7 Adult failure to thrive; E11.22 Type 2 diabetes mellitus with diabetic chronic kidney disease; D64.9 Anemia, unspecified; B96.20 Unspecified Escherichia coli [E. coli] as the cause of diseases classified elsewhere; E11.40 Type 2 diabetes mellitus with diabetic neuropathy, unspecified; G40.909 Epilepsy, unspecified, not intractable, without status epilepticus; I48.0 Paroxysmal atrial fibrillation; N18.31 Chronic kidney disease, stage 3a; Z79.4 Long term (current) use of insulin; I12.9 Hypertensive chronic kidney disease with stage 1 through stage 4 chronic kidney disease, or unspecified chronic kidney disease; K59.00 Constipation, unspecified; F41.9 Anxiety disorder, unspecified; E78.5 Hyperlipidemia, unspecified; R53.81 Other malaise; Z95.0 Presence of cardiac pacemaker; Z79.83 Long term (current) use of bisphosphonates; R33.9 Retention of urine, unspecified; R13.10 Dysphagia, unspecified; R29.6 Repeated falls
CPT/HCPCS: 36415; 70450; 71045; 71111; 72170; 73610; 76770; 80048; 80053; 80076; 80164; 81001; 82274; 82550; 82607; 82728; 82746; 82962; 83540; 83550; 83605; 83735; 84100; 84145; 85025; 86644; 86850; 86900; 86901; 86920; 86922; 87040; 87077; 87086; 87088; 87186; 87426; 87633; 92526; 92610; 97110; 97162; 97166; 97530; 97535; 99252; 99285; J7030; J7040; P9016; P9612; A4216; C9254; G0463; J3490; J7799

== ENCOUNTER 2022-09-29 18:40 | Inpatient (IN) | payer MEDICARE, SELFPAY ==
[2022-09-29 18:53] VITALS: BP 151/72; PULSE 66; RESP 16; TEMP 36.6; O2SAT 98
[2022-09-29 19:00] VITALS: PULSE 60; RESP 16; O2SAT 93
--- NOTE | 2022-09-29 19:19 | HP.PCM_ITS ---
HPI - General General Date of Admission: 09/29/22 Date of Service: 09/30/22 Chief Complaint: Here for rehabilitation. HPI Narrative 09/22/2022 HERMINIA CARDONA, is a 72 Female who presents to [facility] Emergency Department with fall. More weak, can stand with assistance, but cannot walk. Lies in bed, stopped eating, stopped drinking. Fallen multiple times. Urine culture sent. 09/23/2022 Admit to Hospital. PT/OT for SNF. 09/23/2022 IV fluids for acute kidney injury. Transuse if hemoglobin less than 7. 09/24/2022 DREDGEMASTER for seizure, resolved, seizure precautions. 09/25/2022 More awake, interactive. Baseline creatinine 0.75, worsening, start IV fluids. 09/26/2022 Levaquin x 3 days for E. Coli urinary tract infection. 09/27/2022 Await Pre-CERT for TCU. 09/27/2022 Hemoglobin 8.9, no transfusion necessary. Stop Ramipril, Normal saline IV for acute kidney injury. 09/27/2022 Speech Therapy, NPO for dysphagia. 09/28/2022 Aches all over. Hemoglobin 7.3, negative FOBT. Modified diet for dysphagia. Rocephin for urinary tract infection. Tolterodine for overactive bladder. Dickson catheter for urinary retention. Hold Ramipril, Hold Kerendia for acute kidney injury. 09/29/2022 Hemoglobin 7.0, Transfuse 1 unit PRBC. 09/29/2022 Admit to TCU with debility, here for rehailitation, strengthening, prior to discharge home with . [facility] Medical History Anxiety Atrial fibrillation Breakthrough seizure Chronic kidney disease (CKD) Dysuria Essential hypertension Former smoker HLD (hyperlipidemia) Hypertension Hypertensive emergency without congestive heart failure Hypertriglyceridemia Junctional rhythm Kidney disease Non-smoker Obesity Pacemaker Paroxysmal atrial fibrillation Right ankle sprain Seizure Seizures Septic shock Tachy-maurizio syndrome Type 2 diabetes mellitus Vaginal bleeding Home Medications oxybutynin chloride 5 mg tablet,extended release 24 hr 10 mg PO QHS bladder 05/20/17 [History Last Taken 11/18/21] alendronate 70 mg tablet 70 mg PO SA BONES 11/19/21 [History Last Taken 11/15/21] divalproex 500 mg tablet,extended release 24 hr (Depakote ER) 1,000 mg PO QHS Seizures 11/19/21 [History Last Taken 11/18/21] divalproex 500 mg tablet,extended release 24 hr (Depakote ER) 500 mg PO DAILY Seizures 11/19/21 [History Last Taken 11/19/21] lacosamide 100 mg tablet (Vimpat) 100 mg PO DAILY SEIZURES 11/19/21 [History Last Taken 11/19/21] sitagliptin phosphate 50 mg tablet (Januvia) 100 mg PO DAILY Diabetes 11/19/21 [History Last Taken 11/18/21] acetaminophen 500 mg tablet 1,000 mg PO Q6H PRN PRN Pain Score 1-10 #0 tabs 12/10/21 [Rx Last Taken Unknown] ramipril 10 mg capsule 10 mg PO DAILY BP #90 caps 01/27/22 [Rx Last Taken Unknown] mirtazapine 15 mg tablet 30 mg PO QHS Check with primary doctor 09/23/22 [History Last Taken Unknown] sennosides 8.6 mg-docusate sodium 50 mg tablet (Stool Softener-Stimulant Laxative) 2 tab PO BID PRN PRN Constipation #0 tabs 09/26/22 [Rx Last Taken Unknown] amlodipine 10 mg tablet 10 mg PO DAILY Check with primary doctor 09/29/22 [History Last Taken Unknown] atorvastatin 20 mg tablet 20 mg PO QHS Cholesterol 09/29/22 [History Last Taken Unknown] finerenone 20 mg tablet (Kerendia) 10 mg PO DAILY Check with primary doctor 09/29/22 [History Last Taken Unknown] finerenone 20 mg tablet (Kerendia) 20 mg PO DAILY Check with primary doctor 09/29/22 [History Last Taken Unknown] lacosamide 100 mg tablet (Vimpat) 150 mg PO QHS Seizures 09/29/22 [History Last Taken Unknown] levofloxacin 750 mg tablet 750 mg PO DAILY@0600 Antibiotic 09/29/22 [History Last Taken Unknown] pregabalin 100 mg capsule 100 mg PO BID Nerve Pain 5 days #10 caps 09/29/22 [Rx Last Taken Unknown] Allergy/AdvReac Type Severity Reaction Status Date / Time amoxicillin [From Augmentin] Allergy Rash Verified 09/03/22 13:43 clavulanic acid Allergy Rash Verified 09/03/22 13:43 [From Augmentin] escitalopram [From Lexapro] Allergy Rash Verified 09/03/22 13:43 shellfish derived Allergy Unknown Verified 09/03/22 13:43 hydroxychloroquine AdvReac Severe Unknown Verified 09/03/22 13:43 [From Plaquenil] house dust AdvReac NEEDS Verified 09/03/22 13:43 FOLLOW-UP perfume AdvReac Unknown Verified 09/03/22 13:43 pineapple AdvReac Rash Verified 09/03/22 13:43 quinine AdvReac Unknown Verified 09/03/22 13:43 strawberry AdvReac Rash Verified 09/03/22 13:43 Sulfa (Sulfonamide AdvReac Unknown Verified 09/03/22 13:43 Antibiotics) Family History Brother Heart disease Hx CABG Hypertension Diabetes Mother Hypertension Surgical History History of breast surgery History of hysterectomy History of permanent cardiac pacemaker placement (11/15/17) Social History household members: spouse Smoking Status: Never smoker alcohol intake: never substance use type: does not use caffeine: No what type of physical activity do you participate in: none seatbelt use: always do you feel safe at home: Yes ROS Constitutional Constitutional: Denies chills, fever(s) or weight gain ENT HEENT: Denies headache(s), nasal congestion or nasal discharge Cardiovascular Cardiovascular: Denies chest pain or palpitations Respiratory/Chest Respiratory/Chest: Denies cough, excessive phlegm production or shortness of breath with exertion Gastrointestinal Gastrointestinal: Denies abdominal pain, nausea or vomiting Genitourinary Genitourinary: Denies dysuria Musculoskeletal Musculoskeletal: Denies joint pain or joint swelling Integumentary Integumentary: Denies rash or wounds Neurologic Neurologic: Denies focal weakness, numbness or tingling Psychiatric Psychiatric: Denies anxiety, auditory hallucinations, depression, homicidal ideation or suicidal ideation Vital Signs Vital Signs Vital Signs: 09/29/22 18:53 Temperature 97.8 F Temperature Source Temporal Pulse Rate 66 Respiratory Rate 16 Blood Pressure 151/72 H Blood Pressure Mean 98 Blood Pressure Source Monitor Blood Pressure Position Semi-Fowlers Blood Pressure Location Right Arm Pulse Ox 98 Oxygen Delivery Method Room Air Physical Exam Const alert General Appearance: cooperative HEENT normocephalic Eyes PERRL and EOMs intact bilaterally Neck supple, no JVD and no carotid bruits Resp normal respiratory effort, normal air movement and clear to auscultation bilaterally Cardio regular rate and regular rhythm GI normal to inspection, nondistended, normoactive bowel sounds, non-tender and non-distended Extremity normal capillary refill General Extremity: Negative for edema Skin no rashes or lesions noted General Skin Exam: no breakdown Psych affect normal Appearance: appropriate Results Lab / Micro Data Result Diagrams: 09/30/22 05:08 09/30/22 05:08 Assessment & Plan Assessment/Plan (1) Debility: (2) Multiple falls: (3) Failure to thrive: (4) Acute kidney injury: (5) Anemia: (6) Osteoporosis: (7) Hypertension: (8) Hyperlipidemia: (9) Seizure disorder: (10) Nephrotic range proteinuria: (11) Diabetes mellitus: (12) Overactive bladder: (13) Diabetic polyneuropathy: PLAN: Plan 72 year old female with below past medical history hospitalized for falls, failure to thrive secondary to urinary tract infection, complicated by acute kidney injury, urinary retention, anemia, seizures, admitted to TCU with debility, here for rehabilitation, strengthening, prior to discharge home with . * Debility - PT/OT. * Dysphagia - ST. * Pain - Tylenol 1000mg q6h prn pain (1-10). * Bowel - senna/colace 1 tablet bid, MOM 30ml po x 1 prn. * Adult immunization - Administer pneumonia vaccine, covid19 vaccine, flu vaccine. * DVT prophylaxis - Hold, anemia. * Hypertension - Ramipril 10mg daily, Amlodipine 10mg daily. * Proteinuria - Kerendia 20mg daily. * E. Coli urinary tract infection - Levaquin 750mg daily x 3 days. * Hyperlipidemia - Atorvastatin 20mg qhs. * Overactive bladder - Oxybutynin 10mg qhs. * Osteoporosis - Alendronate 70mg per week, * Seizure disorder - Depakote 500mg, 1000mg, Vimpat 100mg, 150mg. * Diabetes Mellitus II - Januvia 100mg daily. 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 * Diabetic polyneuropathy - Lyrica 100mg bid. * Iron deficiency anemia - Ferrex 150mg daily, Vitamin C, monitor H&H. * Hypokalemia - KCL 40meq x 1, then 20meq daily, monitor BMP.
[2022-09-29 20:18] VITALS: BMI 29.6
[2022-09-29] MEDS: Atorvastatin Calcium 20 MG Tablet PO (23:03)
[2022-09-29] MEDS: Mirtazapine 30 MG Tablet PO (23:03)
[2022-09-29] MEDS: Tolterodine Tartrate 2 MG CAP.SA PO (23:03)
[2022-09-29] MEDS: Divalproex (ER) 500 MG Tablet 1000 MG PO (23:03)
[2022-09-29] MEDS: Lacosamide 50 MG Tablet 150 MG PO (23:46)
[2022-09-30] MEDS: Pregabalin 50 MG Capsule 100 MG PO ×3 (05:21→21:31)
[2022-09-30] MEDS: Lacosamide 100 MG Tablet PO (05:21)
[2022-09-30] MEDS: Divalproex (ER) 500 MG Tablet PO (05:22)
[2022-09-30] MEDS: amLODIPine 10 MG Tablet PO (05:22)
[2022-09-30] MEDS: Ramipril 10 MG Capsule PO (05:22)
[2022-09-30] MEDS: LINAGLIPTIN 5 MG TABLET PO (05:22)
[2022-09-30] MEDS: levoFLOXacin 750 MG Tablet PO (05:22)
[2022-09-30] MEDS: FINERENONE 20 MG TABLET PO (05:23)
[2022-09-30 05:35] VITALS: BP 159/75; PULSE 69
[2022-09-30 05:42] LABS: Mean Corp Hgb Conc 32.1 g/dL (32-36); Mean Corpuscular Hgb 28.7 pg (27.0-32.0); Mean Corpuscular Volume 89.2 fL (81-99); Mean Platelet Vol. 9.5 fl (6.2-12.0); POSITIVE COUNT YES; POSITIVE MORPHOLOGY YES; Platelet Count 147 K/mm3 (150-450); RBC Distribution Width CV 16.6 % (11.6-14.6); RBC Distribution Width SD 54.4 fl (35.1-43.9); Red Blood Count 3.14 M/mm3 (4.2-5.4); White Blood Count 3.9 K/mm3 (4.4-11.0)
[2022-09-30 05:45] LABS: Differential Indicated MANUAL DIFF
[2022-09-30 06:09] LABS: Anion Gap 9 (5-15); BUN 10 mg/dL (7-18); BUN/Creat Ratio 16.4 RATIO (10-20); Calcium,Total 7.9 mg/dL (8.5-10.1); Chloride 109 mmol/L (98-107); Creatinine, Serum 0.61 mg/dL (0.55-1.02); EST Glomerular Filtration Rate 103 mL/min (>60); Est Glom Filt Rate - Afr Amer 125 mL/min (>60); Glucose 133 mg/dL (74-106); Potassium 3.2 mmol/L (3.5-5.1); Sodium Level 144 mmol/L (136-145)
[2022-09-30 06:17] LABS: Metamyelocyte 3 % (0-1); Myelocyte 3 % (0-0); Neutrophil-Band 3 % (0-5); Neutrophil-Segmented 38 % (47-70); Total Cells Counted 100 (MANUAL DIFF)
[2022-09-30 06:18] LABS: Basophil 1 % (0-1); Eosinophil 3 % (0-5); Lymphocyte 29 % (19-41); Monocyte 13 % (0-10); Nucleated Red Bld Cells,Manual 1 % (0-5); Promyelocyte 7 % (0-0)
[2022-09-30 06:19] LABS: Anisocytosis RARE; Hypochromasia RARE; Microcytosis RARE; Platelet Estimate ADEQUATE (ADEQ)
[2022-09-30 06:20] LABS: Absolute Lymphocyte Count 1.12 X10^3/uL (0.83-4.51); Absolute Neutrophil Count 1.6 X10^3/uL (2.0-7.7); Lymphocyte # 1.12 X10^3/ul (0.83-4.51); Neutrophil # 1.58 X10^3/uL (2.7-7.7)
[2022-09-30] MEDS: Potassium Chloride Oral Tablet 20 MEQ 40 MEQ PO (09:21)
[2022-09-30] MEDS: Ascorbic Acid 500 MG Tablet PO (09:22)
[2022-09-30] MEDS: Tuberculin,Purif.prot.deriv. 50 TU/ML Vial 0.1 ML ID (09:29)
[2022-09-30 12:40] LABS: Pathologist Review Reviewed
--- NOTE | 2022-09-30 14:51 | NURSING ---
PT COMPLAINED OF PAIN IN RT ANKLE. THIS NURSE OFFERED PRN PAIN MED AND PT REFUSED. ASKED PT IF THERE WAS ANY THING I COULD DO PT STATED NO. WILL LET KNOW OF PT PAINFUL/SWOLLEN RIGHT ANKLE. RN AWARE.
--- NOTE | 2022-09-30 14:52 | CASEMGMT ---
Social Work See attached social work assessment for further details. This social work program coordinator met with patient in room. Introduced self and social work program coordinator role. Patient agreeable to speak with this social work program coordinator. This social work program coordinator going over insurance benefit with patient and that waiting to hear from [facility] on when first update will be. Patient aware that continued stay approval is not guaranteed for patient. Patient primary goal is to return to home with spouse. Patient agreeable to this social work program coordinator contacting patient spouse to introduce self and social work program coordinator role. This social work program coordinator attempted to complete MOLST form with patient, patient unable to sign name but verbally confirms to be a full code. Telephone call to patient spouse, Thuan. This social work program coordinator introduced self and social work program coordinator role. Thuan agreeable to speak with this social work program coordinator. This social work program coordinator updated Thuan on above information. Thuan confirms that patient is a full code. Thuan voicing concerns of patient returning to home as patient health has been declining and patient has had multiple falls in the community. This social work program coordinator provided active listening and support. Social work to continue to follow and facilitate discharge planning conversation as further information is obtained on patient current level of care needs. Thuan thanked this social work program coordinator. Social Work to continue to follow. Enrike COTTO, LUCIEN
--- NOTE | 2022-09-30 15:14 | PCM.PN.DRR ---
TCU RX Drug Regimen Review Subjective: TCU Admission. 72 YOF presented to the ER with fall. Hospitalized for falls, failure to thrive secondary to urinary tract infection, complicated by acute kidney injury, urinary retention, anemia, seizures. Admitted to TCU with debility for strengthening and rehabilitation. Objective: Allergies amoxicillin [From Augmentin] Allergy (Verified 09/03/22 13:43) Rash RASH ON FACE clavulanic acid [From Augmentin] Allergy (Verified 09/03/22 13:43) Rash RASH ON FACE escitalopram [From Lexapro] Allergy (Verified 09/03/22 13:43) Rash shellfish derived Allergy (Verified 09/03/22 13:43) Unknown hydroxychloroquine [From Plaquenil] Adverse Reaction (Severe, Verified 09/03/22 13:43) Unknown house dust Adverse Reaction (Verified 09/03/22 13:43) NEEDS FOLLOW-UP perfume Adverse Reaction (Verified 09/03/22 13:43) Unknown pineapple Adverse Reaction (Verified 09/03/22 13:43) Rash quinine Adverse Reaction (Verified 09/03/22 13:43) Unknown strawberry Adverse Reaction (Verified 09/03/22 13:43) Rash Sulfa (Sulfonamide Antibiotics) Adverse Reaction (Verified 09/03/22 13:43) Unknown Current Medications Generic Name Dose Route Start Last Admin Trade Name Freq PRN Reason Stop Dose Admin Acetaminophen 1,000 mg 09/29/22 20:09 Acetaminophen 500 Mg Tablet PO Q6H PRN PRN Pain Score 1-10 Alendronate Sodium 70 mg 10/03/22 06:00 Alendronate Sodium 70 Mg Tablet PO [facility] Amlodipine Besylate 10 mg 09/30/22 06:00 09/30/22 05:22 Amlodipine 10 Mg Tablet PO 10 mg DAILY RENEE Administration Ascorbic Acid 500 mg 09/30/22 08:00 09/30/22 09:22 Ascorbic Acid 500 Mg Tablet PO 500 mg BREAKFAST RENEE Administration Atorvastatin Calcium 20 mg 09/29/22 22:00 09/29/22 23:03 Atorvastatin Calcium 20 Mg Tablet PO 20 mg QHS RENEE Administration Divalproex Sodium 500 mg 09/30/22 06:00 09/30/22 05:22 Divalproex (Er) 500 Mg Tablet PO 500 mg DAILY RENEE Administration Divalproex Sodium 1,000 mg 09/29/22 22:00 09/29/22 23:03 Divalproex (Er) 500 Mg Tablet PO 1,000 mg QHS RENEE Administration Lacosamide 100 mg 09/30/22 06:00 09/30/22 05:21 Lacosamide 100 Mg Tablet PO 100 mg DAILY RENEE Administration Lacosamide 150 mg 09/29/22 22:00 09/29/22 23:46 Lacosamide 50 Mg Tablet PO 150 mg QHS RENEE Administration Levofloxacin 750 mg 09/30/22 06:00 09/30/22 05:22 Levofloxacin 750 Mg Tablet PO 10/02/22 23:59 750 mg DAILY@0600 RENEE Administration Linagliptin 5 mg 09/30/22 06:00 09/30/22 05:22 Linagliptin 5 Mg Tablet PO 5 mg DAILY RENEE Administration Magnesium Hydroxide 30 ml 09/30/22 07:47 Magnesium Hydroxide 30 Ml Udc PO X1 PRN Constipation Mirtazapine 30 mg 09/29/22 22:00 09/29/22 23:03 Mirtazapine 30 Mg Tablet PO 30 mg QHS [facility] Administration Polysaccharide Iron Complex 150 mg 10/01/22 08:00 Iron Polysaccharide Complex 150 Mg Capsule PO DAILY [facility] Potassium Chloride 20 meq 10/01/22 08:00 Potassium Chloride Oral Tablet [facility] Pregabalin 100 mg 09/30/22 06:00 09/30/22 05:21 Pregabalin 50 Mg Capsule PO 100 mg BID RENEE Administration Ramipril 10 mg 09/30/22 06:00 09/30/22 05:22 Ramipril 10 Mg Capsule PO 10 mg DAILY RENEE Administration Senna/Docusate Sodium 1 tablet 09/30/22 18:00 Senna/Docusate Sodium 1 Tablet PO BID [facility] Sodium Chloride 10 - 40 ml 09/29/22 20:17 0.9% Saline Lock 10 Ml Syringe IV UD PRN SALINE FLUSH Tolterodine Tartrate 2 mg 09/29/22 22:00 09/29/22 23:03 Tolterodine Tartrate 2 Mg Cap.Sa PO 2 mg QHS [facility] Administration Tuberculin PPD 0.1 ml 10/07/22 10:00 Tuberculin,Purif.Prot.Deriv. 50 Tu/Ml Vial ID 10/07/22 10:01 X1 ONE Problem List (Last Reviewed 09/29/22 @ 19:[address] Devin Valadez MD) Diabetic polyneuropathy (Acute) Overactive bladder (Acute) Diabetes mellitus (Acute) Nephrotic range proteinuria (Acute) Seizure disorder (Acute) Hyperlipidemia (Acute) Hypertension (Chronic) Osteoporosis (Acute) Anemia (Acute) Acute kidney injury (Acute) Failure to thrive (Acute) Multiple falls (Acute) Debility (Acute) Vital Signs Temp Pulse Resp BP Pulse Ox O2 Del Method 97.8 F 69 16 159/75 H 93 Room Air 09/29/22 18:53 09/30/22 05:35 09/29/22 19:00 09/30/22 05:35 09/29/22 19:00 09/29/22 19:00 Oxygen Delivery Method Room Air Weight: 73.482 kg Body Mass Index (BMI) 29.6 Sodium 144 mmol/L (136-145) 09/30/22 05:08 Potassium 3.2 mmol/L (3.5-5.1) L 09/30/22 05:08 Chloride 109 mmol/L (98-107) H 09/30/22 05:08 Carbon Dioxide 26.0 mmol/L (21.0-32.0) 09/30/22 05:08 Anion Gap 9 (5-15) 09/30/22 05:08 BUN 10 mg/dL (7-18) 09/30/22 05:08 Creatinine 0.61 mg/dL (0.55-1.02) 09/30/22 05:08 Est GFR (MDRD) Af Amer 125 mL/min (>60) 09/30/22 05:08 Est GFR (MDRD) Non-Af 103 mL/min (>60) 09/30/22 05:08 BUN/Creatinine Ratio 16.4 RATIO (10-20) 09/30/22 05:08 Glucose 133 mg/dL (74-106) H 09/30/22 05:08 Assessment/Plan: 1. Pain: acetaminophen 1000mg PO Q6H PRN pain 1-10. Resident has not had any PRN doses. Please continue to monitor for increased pain and PRN usage. 2. Bowel: senna/docusate 1T PO BID and MOM 30mL PO x1 PRN constipation. Resident has not had a dose. Last documented bowel movement 09/29/22. Please continue to monitor for constipation and PRN usage. 3. E. coli UTI: levofloxacin 750mg PO daily thru 10/02/22. Please continue to monitor for S/S of infection, renal function, tendon pain (tendonitis and tendon rupture is a black box warning) and diarrhea. 4. Hypertension: ramipril 10mg PO daily and amlodipine 10mg PO daily. Please continue to monitor BP (last 159/75), potassium (last 3.2mmol/L), renal function, cough and swelling. 5. Proteinuria: Kerendia 20mg PO daily. Please continue to monitor potassium and renal function. 6. Hyperlipidemia: atorvastatin 20mg PO QHS. Please continue to monitor lipid panel (last 07/01/22), LFT (last 09/29/22), and muscle pain. 7. Seizure disorder: divalproex ER 500mg daily/ER 1000mg QHS and lacosamide 100mg PO daily/150mg QHS. Please consider ordering a valproic acid level if clinically appropriate. Please continue to monitor for falls/fractures (both medications are BEERs criteria medications, patient admitted for falls), nausea and dizziness. 8. Diabetes Mellitus II: linagliptin 5mg PO daily. Please consider ordering a hemoglobin A1c (last 7.7% 08/26/21) if clinically appropriate. Thanks. Please continue to monitor for S/S of hypoglycemia and glucose (last 133mg/dL). 9. Overactive bladder: tolterodine 2mg PO QHS. Please continue to monitor to monitor for dementia/delirium (BEERs medication) and dry mouth. 10. Iron deficiency anemia: Ferrex 150mg PO DAILYCM and ascorbic acid 500mg PO breakfast. Please continue to monitor hemoglobin (last 9g/dL), constipation and dark stools. 11. Osteoporosis: alendronate 70mg PO weekly. Please continue to monitor BMD, jaw pain and upset stomach. Please administer on an empty stomach first thing in the morning with a full glass of water and remain upright for 1 hour following the dose. 12. Hypokalemia: potassium chloride 20mEq PO DAILYCM. Please continue to monitor potassium levels. Assessment/Plan for indications treated with psychotropic medications: 1. Depression/insomnia/appetite loss: mirtazapine 30mg PO QHS. Please see physician note regarding GDR. Please continue to monitor for suicidal ideation (black box warning), sodium, excessive drowsiness and improved appetite. 2. Diabetic polyneuropathy: pregabalin 100mg PO BID. GDR not appropriate as this resident is taking for polyneuropathy. Please continue to monitor for falls/fractures (BEERs medication), renal function and confusion. Medical chart and medication regimen reviewed. The following medication irregularities or issues were identified: *1. Divalproex ER 500mg daily/ER 1000mg QHS and lacosamide 100mg PO daily/150mg QHS. Please consider ordering a valproic acid level if clinically appropriate. *2. Linagliptin 5mg PO daily. Please consider ordering a hemoglobin A1c (last 7.7% 08/26/21) if clinically appropriate. Thanks. . Date of Note:: 09/30/22
[2022-09-30 16:00] VITALS: BP 133/70; PULSE 71; RESP 17; TEMP 36.1; O2SAT 97
--- NOTE | 2022-09-30 17:30 | RAD_ITS ---
EXAM: XR RIGHT ANKLE COMPLETE, 3 OR MORE VIEWS CLINICAL INDICATION: Pain/swelling. TECHNIQUE: Frontal, lateral and oblique views of the right ankle. This report was created using [employer] report generation technology. COMPARISON: None. FINDINGS: BONES/JOINTS: There is a calcaneal spur. There is an enthesophyte involving the posterior superior calcaneus at the site of insertion of the Achilles tendon. No acute fracture. No subluxation. Normal alignment. Preservation of the joint space. No sclerotic or destructive changes observed. SOFT TISSUES: Soft tissue swelling around the ankle. No radiopaque foreign body. VASCULATURE: Vascular calcifications. RAD/Ankle min 3 Views IMPRESSION: Soft tissue swelling around the ankle. Electronically Signed: Teddy Stringer MD at 17:44 EST Reading Location ID and State: [facility] / [place] , Service support ,
[2022-09-30] MEDS: Senna/Docusate Sodium 1 Tablet PO (18:24)
[2022-09-30] MEDS: Acetaminophen 500 MG Tablet 1000 MG PO (18:30)
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
[2022-09-30 20:11] VITALS: BP 133/70; PULSE 71; RESP 17; TEMP 36.1; O2SAT 97
[2022-09-30 21:00] VITALS: PULSE 70; RESP 16; O2SAT 90
[2022-09-30] MEDS: Mirtazapine 30 MG Tablet PO ×2 (21:32→21:33)
[2022-09-30] MEDS: Atorvastatin Calcium 20 MG Tablet PO (21:33)
[2022-09-30] MEDS: Tolterodine Tartrate 2 MG CAP.SA PO (21:33)
[2022-09-30] MEDS: Divalproex (ER) 500 MG Tablet 1000 MG PO (21:33)
[2022-09-30] MEDS: Lacosamide 50 MG Tablet 150 MG PO (21:49)
[2022-10-01] MEDS: levoFLOXacin 750 MG Tablet PO (05:07)
[2022-10-01] MEDS: amLODIPine 10 MG Tablet PO (05:07)
[2022-10-01] MEDS: Ramipril 10 MG Capsule PO (05:07)
[2022-10-01] MEDS: Senna/Docusate Sodium 1 Tablet PO ×2 (05:07→18:19)
[2022-10-01] MEDS: LINAGLIPTIN 5 MG TABLET PO (05:07)
[2022-10-01] MEDS: Divalproex (ER) 500 MG Tablet PO (05:08)
[2022-10-01] MEDS: Lacosamide 100 MG Tablet PO (05:09)
[2022-10-01] MEDS: FINERENONE 20 MG TABLET PO (05:09)
[2022-10-01 08:15] VITALS: PULSE 71; RESP 16
[2022-10-01] MEDS: Iron Polysaccharide Complex 150 MG CAPSULE PO (09:08)
[2022-10-01] MEDS: Ascorbic Acid 500 MG Tablet PO (09:08)
[2022-10-01] MEDS: Potassium Chloride Oral Tablet 20 MEQ PO (09:08)
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
[2022-10-01] MEDS: Acetaminophen 500 MG Tablet 1000 MG PO ×2 (13:42→19:57)
[2022-10-01 14:00] VITALS: BP 137/71; PULSE 68; RESP 16; TEMP 36.3; O2SAT 98
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
[2022-10-01] MEDS: Pregabalin 50 MG Capsule 100 MG PO (18:19)
[2022-10-01] MEDS: Lacosamide 50 MG Tablet 150 MG PO (21:05)
[2022-10-01] MEDS: Divalproex (ER) 500 MG Tablet 1000 MG PO (21:05)
[2022-10-01] MEDS: Tolterodine Tartrate 2 MG CAP.SA PO (21:05)
[2022-10-01] MEDS: Atorvastatin Calcium 20 MG Tablet PO (21:05)
[2022-10-02 05:27] LABS: Hematocrit 30.6 % (37-47); Hemoglobin 9.3 g/dL (12.0-15.0)
[2022-10-02 05:49] LABS: Anion Gap 8 (5-15); BUN 11 mg/dL (7-18); BUN/Creat Ratio 15.1 RATIO (10-20); Calcium,Total 8.2 mg/dL (8.5-10.1); Chloride 108 mmol/L (98-107); Creatinine, Serum 0.73 mg/dL (0.55-1.02); EST Glomerular Filtration Rate 84 mL/min (>60); Est Glom Filt Rate - Afr Amer 102 mL/min (>60); Glucose 149 mg/dL (74-106); Potassium 3.6 mmol/L (3.5-5.1); Sodium Level 143 mmol/L (136-145)
[2022-10-02 06:11] VITALS: BP 138/70; PULSE 68
[2022-10-02] MEDS: FINERENONE 20 MG TABLET PO (06:12)
[2022-10-02] MEDS: amLODIPine 10 MG Tablet PO (06:13)
[2022-10-02] MEDS: Ramipril 10 MG Capsule PO (06:13)
[2022-10-02] MEDS: levoFLOXacin 750 MG Tablet PO (06:13)
[2022-10-02] MEDS: Pregabalin 50 MG Capsule 100 MG PO ×2 (06:13→16:33)
[2022-10-02] MEDS: Senna/Docusate Sodium 1 Tablet PO ×2 (06:13→16:31)
[2022-10-02] MEDS: LINAGLIPTIN 5 MG TABLET PO (06:13)
[2022-10-02] MEDS: Iron Polysaccharide Complex 150 MG CAPSULE PO (06:14)
[2022-10-02] MEDS: Divalproex (ER) 500 MG Tablet PO (06:14)
[2022-10-02] MEDS: Lacosamide 100 MG Tablet PO (06:18)
[2022-10-02] MEDS: Potassium Chloride Oral Tablet 20 MEQ PO (07:41)
[2022-10-02] MEDS: Ascorbic Acid 500 MG Tablet PO (07:41)
--- NOTE | 2022-10-02 10:09 | NURSING ---
Storage Worker Note; Activity Asset Complete Lcuas prefers to be called Andrei. Andrei is independent in her choice of daily activities. She was unable to answer activity questions at this time so family answered and I used past activity questions. He enjoys listing to her [facility] music and watching her [facility] movies so family will bring in her tablet and CD's, I placed a radio/cd player in her room. 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.
[2022-10-02] MEDS: Acetaminophen 500 MG Tablet 1000 MG PO (10:54)
--- NOTE | 2022-10-02 14:22 | NURSING ---
DOPPLER TECH REPORTED R' NEGATIVE FOR DVT TO CESAR.
[2022-10-02 15:06] VITALS: BP 126/68; PULSE 64; RESP 18; TEMP 36.2; O2SAT 97
[2022-10-02] MEDS: Magnesium Hydroxide 30 ML UDC PO (16:33)
[2022-10-02 20:23] VITALS: PULSE 69; RESP 16; O2SAT 90
[2022-10-02] MEDS: Tolterodine Tartrate 2 MG CAP.SA PO (21:47)
[2022-10-02] MEDS: Atorvastatin Calcium 20 MG Tablet PO (21:47)
[2022-10-02] MEDS: Mirtazapine 30 MG Tablet PO (21:49)
[2022-10-02] MEDS: Divalproex (ER) 500 MG Tablet 1000 MG PO (21:49)
[2022-10-02] MEDS: Lacosamide 50 MG Tablet 150 MG PO (23:26)
[2022-10-03] MEDS: Divalproex (ER) 500 MG Tablet PO (07:01)
[2022-10-03] MEDS: Ramipril 10 MG Capsule PO (07:01)
[2022-10-03] MEDS: Alendronate Sodium 70 MG Tablet PO (07:02)
[2022-10-03] MEDS: FINERENONE 20 MG TABLET PO (07:03)
[2022-10-03] MEDS: Iron Polysaccharide Complex 150 MG CAPSULE PO (07:03)
[2022-10-03] MEDS: amLODIPine 10 MG Tablet PO (07:04)
[2022-10-03] MEDS: Senna/Docusate Sodium 1 Tablet PO ×2 (07:05→17:08)
[2022-10-03] MEDS: LINAGLIPTIN 5 MG TABLET PO (07:07)
[2022-10-03] MEDS: Pregabalin 50 MG Capsule 100 MG PO ×2 (07:12→17:07)
[2022-10-03] MEDS: Lacosamide 100 MG Tablet PO (08:17)
[2022-10-03] MEDS: Potassium Chloride Oral Tablet 20 MEQ PO (08:17)
[2022-10-03] MEDS: Ascorbic Acid 500 MG Tablet PO (08:17)
[2022-10-03 15:02] VITALS: BP 112/64; PULSE 76; RESP 16; TEMP 36.6; O2SAT 93
[2022-10-03 19:30] VITALS: O2SAT 93
[2022-10-03] MEDS: Lacosamide 50 MG Tablet 150 MG PO (21:24)
[2022-10-03] MEDS: Divalproex (ER) 500 MG Tablet 1000 MG PO (21:25)
[2022-10-03] MEDS: Mirtazapine 30 MG Tablet PO (21:26)
[2022-10-03] MEDS: Atorvastatin Calcium 20 MG Tablet PO (21:26)
[2022-10-03] MEDS: Tolterodine Tartrate 2 MG CAP.SA PO (21:26)
[2022-10-04] MEDS: Divalproex (ER) 500 MG Tablet PO (05:48)
[2022-10-04] MEDS: Iron Polysaccharide Complex 150 MG CAPSULE PO (05:49)
[2022-10-04] MEDS: Senna/Docusate Sodium 1 Tablet PO ×2 (05:49→17:11)
[2022-10-04] MEDS: FINERENONE 20 MG TABLET PO (05:50)
[2022-10-04] MEDS: amLODIPine 10 MG Tablet PO (05:50)
[2022-10-04] MEDS: Ramipril 10 MG Capsule PO (05:50)
[2022-10-04] MEDS: LINAGLIPTIN 5 MG TABLET PO (05:50)
[2022-10-04] MEDS: Pregabalin 50 MG Capsule 100 MG PO ×2 (05:51→17:10)
[2022-10-04] MEDS: Lacosamide 100 MG Tablet PO (05:52)
[2022-10-04 06:25] LABS: Bedside Glucose 136 mg/dL (74-106)
--- NOTE | 2022-10-04 06:49 | NURSING ---
Addendum entered by Shea Black 10/04/22 18:50: resident had 2 medium bowel movements today Addendum entered by Shea Black 10/04/22 08:30: MOM given this morning, will evaluate effectiveness. Original Note: No BM charted since 09/29. Encouraged warm prune juice with butter this morning, pt refused. PRN MOM given on 10/02, not effective. RN aware. Note left for Dr. Valadez requesting GoLytely.
[2022-10-04 07:24] LABS: Hematocrit 31.5 % (37-47); Hemoglobin 9.3 g/dL (12.0-15.0)
[2022-10-04] MEDS: Potassium Chloride Oral Tablet 20 MEQ PO (07:36)
[2022-10-04] MEDS: Magnesium Hydroxide 30 ML UDC PO (07:36)
[2022-10-04] MEDS: Ascorbic Acid 500 MG Tablet PO (07:37)
[2022-10-04] MEDS: Electrolyte Solution/Peg's 4000 ML 1000 ML PO (12:04)
[2022-10-04 16:00] VITALS: BP 114/62; PULSE 65; RESP 14; TEMP 36.2; O2SAT 93
[2022-10-04] MEDS: Menthol/Lanolin/Calamine/Znox 113 GM Tube 1 APPLIC TOPICAL (17:11)
[2022-10-04] MEDS: Acetaminophen 500 MG Tablet 1000 MG PO (20:08)
[2022-10-04] MEDS: Lacosamide 50 MG Tablet 150 MG PO (22:17)
[2022-10-04] MEDS: Mirtazapine 30 MG Tablet PO (22:17)
[2022-10-04] MEDS: Divalproex (ER) 500 MG Tablet 1000 MG PO (22:18)
[2022-10-04] MEDS: Tolterodine Tartrate 2 MG CAP.SA PO (22:19)
[2022-10-04] MEDS: Atorvastatin Calcium 20 MG Tablet PO (22:19)
[2022-10-05] MEDS: LINAGLIPTIN 5 MG TABLET PO (06:15)
[2022-10-05] MEDS: amLODIPine 10 MG Tablet PO (06:15)
[2022-10-05] MEDS: Pregabalin 50 MG Capsule 100 MG PO ×2 (06:15→18:08)
[2022-10-05] MEDS: Divalproex (ER) 500 MG Tablet PO (06:16)
[2022-10-05] MEDS: Senna/Docusate Sodium 1 Tablet PO ×2 (06:16→18:06)
[2022-10-05] MEDS: Iron Polysaccharide Complex 150 MG CAPSULE PO (06:16)
[2022-10-05] MEDS: Ramipril 10 MG Capsule PO (06:16)
[2022-10-05] MEDS: Lacosamide 100 MG Tablet PO (06:18)
[2022-10-05] MEDS: FINERENONE 20 MG TABLET PO (06:20)
[2022-10-05] MEDS: Menthol/Lanolin/Calamine/Znox 113 GM Tube 1 APPLIC TOPICAL ×2 (06:34→18:04)
[2022-10-05] MEDS: Potassium Chloride Oral Tablet 20 MEQ PO (08:45)
[2022-10-05] MEDS: Ascorbic Acid 500 MG Tablet PO (08:45)
[2022-10-05 09:15] VITALS: PULSE 68; RESP 16; O2SAT 94
[2022-10-05 16:00] VITALS: BP 95/54; PULSE 66; RESP 18; TEMP 36.1; O2SAT 96
--- NOTE | 2022-10-05 16:24 | NURSING ---
PT VERY PLEASANT AND HAPPY TODAY. NO COMPLAINTS AT THIS TIME.
--- NOTE | 2022-10-05 19:10 | CASEMGMT ---
Social Work BIMS () and PHQ-9 (11/23) completed for MDS assessment. During BIMS assessment, pt was using humor at times and appears oriented. During PHQ-9, pt perseverated on the question about having trouble sleeping. Pt stated I can sleep, eat all the time. I have no worries sleeping. Pt continued to reiterate sentence at the following questions, thus scoring some responses as a (9 - no response). SW to monitor mood. Ana Mosley, SENIOR INFORMATION SECURITY CONSULTANT WHOLESALE MANAGER
[2022-10-05] MEDS: Acetaminophen 500 MG Tablet 1000 MG PO (21:09)
[2022-10-05] MEDS: Divalproex (ER) 500 MG Tablet 1000 MG PO (21:10)
[2022-10-05] MEDS: Lacosamide 50 MG Tablet 150 MG PO (21:10)
[2022-10-05] MEDS: Tolterodine Tartrate 2 MG CAP.SA PO (21:11)
[2022-10-05] MEDS: Mirtazapine 30 MG Tablet PO (21:11)
[2022-10-05] MEDS: Atorvastatin Calcium 20 MG Tablet PO (21:11)
[2022-10-06] MEDS: Pregabalin 50 MG Capsule 100 MG PO ×2 (05:22→17:58)
[2022-10-06] MEDS: Lacosamide 100 MG Tablet PO (05:24)
[2022-10-06] MEDS: FINERENONE 20 MG TABLET PO (05:25)
[2022-10-06] MEDS: Iron Polysaccharide Complex 150 MG CAPSULE PO (05:26)
[2022-10-06] MEDS: LINAGLIPTIN 5 MG TABLET PO (05:26)
[2022-10-06] MEDS: Divalproex (ER) 500 MG Tablet PO (05:26)
[2022-10-06] MEDS: Menthol/Lanolin/Calamine/Znox 113 GM Tube 1 APPLIC TOPICAL ×2 (05:27→17:54)
[2022-10-06] MEDS: Senna/Docusate Sodium 1 Tablet PO ×2 (05:27→17:56)
[2022-10-06] MEDS: Ramipril 10 MG Capsule PO (05:27)
[2022-10-06 05:39] VITALS: BP 103/52; PULSE 62; RESP 16
[2022-10-06 06:02] LABS: Hematocrit 29.6 % (37-47); Hemoglobin 8.9 g/dL (12.0-15.0)
[2022-10-06] MEDS: Potassium Chloride Oral Tablet 20 MEQ PO (08:58)
[2022-10-06] MEDS: Ascorbic Acid 500 MG Tablet PO (08:58)
[2022-10-06] MEDS: amLODIPine 10 MG Tablet PO (09:06)
[2022-10-06 09:10] VITALS: BP 104/61; PULSE 61
--- NOTE | 2022-10-06 10:45 | NURSING ---
Addendum entered by Katia Burns 10/06/22 10:55: This nurse called patient's due to patient only alert to self and when asked about the vaccine she laughed inappropriately and appeared as though she did not understand the question. This nurse asked twice and ineffective but told the patient the would be notified to make that decision. Original Note: and patient declined for patient to receive the covid booster while here and education pamphlet provided by this nurse to patient.
[2022-10-06 13:15] VITALS: PULSE 52; RESP 18; O2SAT 96
[2022-10-06 15:16] VITALS: BP 96/58; PULSE 62; RESP 16; TEMP 36.2; O2SAT 96
[2022-10-06] MEDS: Divalproex (ER) 500 MG Tablet 1000 MG PO (22:19)
[2022-10-06] MEDS: Tolterodine Tartrate 2 MG CAP.SA PO (22:20)
[2022-10-06] MEDS: Mirtazapine 30 MG Tablet PO (22:20)
[2022-10-06] MEDS: Atorvastatin Calcium 20 MG Tablet PO (22:20)
[2022-10-06] MEDS: Lacosamide 50 MG Tablet 150 MG PO (22:21)
[2022-10-07] MEDS: Ramipril 10 MG Capsule PO (04:59)
[2022-10-07] MEDS: Iron Polysaccharide Complex 150 MG CAPSULE PO (04:59)
[2022-10-07] MEDS: LINAGLIPTIN 5 MG TABLET PO (04:59)
[2022-10-07] MEDS: Divalproex (ER) 500 MG Tablet PO (04:59)
[2022-10-07] MEDS: Senna/Docusate Sodium 1 Tablet PO ×2 (04:59→17:51)
[2022-10-07] MEDS: FINERENONE 20 MG TABLET PO (05:00)
[2022-10-07] MEDS: Lacosamide 100 MG Tablet PO (05:00)
[2022-10-07] MEDS: Pregabalin 50 MG Capsule 100 MG PO ×2 (05:02→17:49)
[2022-10-07] MEDS: Menthol/Lanolin/Calamine/Znox 113 GM Tube 1 APPLIC TOPICAL ×2 (05:03→17:49)
[2022-10-07 05:55] LABS: Absolute Lymphocyte Count 2.41 X10^3/uL (0.83-4.51); Absolute Neutrophil Count 3.7 X10^3/uL (2.0-7.7); Basophil# 0.05 X10^3/uL; Basophil% 0.7 % (0-1); Eosinophil# 0.09 X10^3/uL; Eosinophils% 1.2 % (0-5); Hematocrit 31.2 % (37-47); Hemoglobin 9.4 g/dL (12.0-15.0); Lymphocyte # 2.41 X10^3/ul (0.83-4.51); Lymphocyte % 32.4 % (19-41); Mean Corp Hgb Conc 30.1 g/dL (32-36); Mean Corpuscular Hgb 28.1 pg (27.0-32.0); Mean Corpuscular Volume 93.4 fL (81-99); Mean Platelet Vol. 9.8 fl (6.2-12.0); Monocyte% 12.1 % (0-10); NRBC Flagged by Analyzer 0 % (0-5); Neutrophil # 3.67 X10^3/uL (2.7-7.7); Neutrophil % 49.4 % (47-70); Platelet Count 204 K/mm3 (150-450); RBC Distribution Width SD 54.8 fl (35.1-43.9); Red Blood Count 3.34 M/mm3 (4.2-5.4); White Blood Count 7.4 K/mm3 (4.4-11.0)
[2022-10-07 06:33] LABS: Anion Gap 7 (5-15); BUN 15 mg/dL (7-18); BUN/Creat Ratio 21.5 RATIO (10-20); Calcium,Total 8.6 mg/dL (8.5-10.1); Chloride 102 mmol/L (98-107); EST Glomerular Filtration Rate 88 mL/min (>60); Est Glom Filt Rate - Afr Amer 106 mL/min (>60); Glucose 144 mg/dL (74-106); Potassium 5.3 mmol/L (3.5-5.1); Sodium Level 137 mmol/L (136-145)
[2022-10-07] MEDS: Ascorbic Acid 500 MG Tablet PO (08:13)
[2022-10-07] MEDS: amLODIPine 10 MG Tablet PO (08:14)
--- NOTE | 2022-10-07 08:25 | NURSING ---
Porcelain Enamel Repairer Note; MDS for 10/06/2022 complete
[2022-10-07] MEDS: Sodium Polystyrene Sulfonate 15 GM/60 ML UDC PO (09:28)
[2022-10-07] MEDS: Tuberculin,Purif.prot.deriv. 50 TU/ML Vial 0.1 ML ID (09:29)
[2022-10-07 15:06] VITALS: BP 110/59; PULSE 62; RESP 16; TEMP 36.4; O2SAT 97
[2022-10-07 20:00] VITALS: PULSE 67; RESP 16; O2SAT 97
[2022-10-07] MEDS: Atorvastatin Calcium 20 MG Tablet PO (22:03)
[2022-10-07] MEDS: Lacosamide 50 MG Tablet 150 MG PO (22:03)
[2022-10-07] MEDS: Mirtazapine 30 MG Tablet PO (22:03)
[2022-10-07] MEDS: Divalproex (ER) 500 MG Tablet 1000 MG PO (22:04)
[2022-10-07] MEDS: Tolterodine Tartrate 2 MG CAP.SA PO (22:04)
[2022-10-08 06:25] LABS: Anion Gap 7 (5-15); BUN 21 mg/dL (7-18); BUN/Creat Ratio 25.4 RATIO (10-20); Calcium,Total 8.7 mg/dL (8.5-10.1); Chloride 102 mmol/L (98-107); Creatinine, Serum 0.83 mg/dL (0.55-1.02); EST Glomerular Filtration Rate 72 mL/min (>60); Est Glom Filt Rate - Afr Amer 88 mL/min (>60); Estimated Creatinine Clearance 49.88 ml/min; Glucose 134 mg/dL (74-106); Potassium 5.3 mmol/L (3.5-5.1); Sodium Level 136 mmol/L (136-145)
[2022-10-08] MEDS: Senna/Docusate Sodium 1 Tablet PO ×2 (06:46→18:08)
[2022-10-08] MEDS: Iron Polysaccharide Complex 150 MG CAPSULE PO (06:46)
[2022-10-08] MEDS: Menthol/Lanolin/Calamine/Znox 113 GM Tube 1 APPLIC TOPICAL ×2 (06:46→18:08)
[2022-10-08] MEDS: LINAGLIPTIN 5 MG TABLET PO (06:46)
[2022-10-08] MEDS: Ramipril 10 MG Capsule PO (06:46)
[2022-10-08] MEDS: Divalproex (ER) 500 MG Tablet PO (06:48)
[2022-10-08] MEDS: FINERENONE 20 MG TABLET PO (06:49)
[2022-10-08] MEDS: Pregabalin 50 MG Capsule 100 MG PO ×2 (06:52→18:07)
[2022-10-08] MEDS: Lacosamide 100 MG Tablet PO (06:52)
[2022-10-08 06:56] VITALS: BP 115/62; PULSE 72
[2022-10-08] MEDS: amLODIPine 10 MG Tablet PO (08:08)
[2022-10-08] MEDS: Ascorbic Acid 500 MG Tablet PO (08:08)
--- NOTE | 2022-10-08 08:11 | NS ---
Call from nursing staff- Res does not like pudding. Dony sanchez/yolanda Cutler MS, RDN, LD
[2022-10-08 08:45] VITALS: PULSE 72; RESP 18; O2SAT 95
--- NOTE | 2022-10-08 10:39 | CASEMGMT ---
Addendum entered by Ana Mosley 10/08/22 15:45: [facility] cannot accept due to unable to meet psychosocial needs. SW spoke with and requested other facilities. requested referrals to [facility]. Referrals made to both facilities via [facility]. Addendum entered by Ana Mosley 10/08/22 11:50: Referral sent to [facility] via [facility]. Original Note: Social Work IDT met with patient, , son, DIL then son and DIL via conference call for care plan meeting. Discussed patient's progress in PT/OT/ST/SN. Educated to [facility] insurance with NRD 10/09 and continued stay is not guaranteed. Spoke with family in detail about DC plans, as pt is unsafe to return home if insurance issues DC date. Pt is not eligible for AL at this time. SW educated to private pay in TCU or private pay with part B therapies at another SNF. SW offered SNF list. Family still has prior list and requesting referral to [facility]. Son and DIL live in [place] and requested SNF list in within their radius. SW sent list to son via [facility]. Family and IDT requesting continued stay. Pt is not close to baseline and would prefer to not have pt transfer to a SNF. SW to continue to follow. KIRTI JimenezW
[2022-10-08] MEDS: Sodium Polystyrene Sulfonate 15 GM/60 ML UDC 30 GM PO (11:20)
--- NOTE | 2022-10-08 11:33 | NURSING ---
Addendum entered by Bassam Martinez 10/08/22 13:57: TALKED TO ANA ABOUT WHAT SON IS SAYING AND SHE CALLED THE NURSE THAT WAS ON THAT DAY AND SHE STATED THAT PT LEFT ARM WAS SHAKING FOR 45 SEC AND PT WAS AWAKE AND TALKING WITH NO PROBLEM AND NOTE WAS LEFT FOR . THIS NURSE THEN CALLED THE SON/DEVYN AND UPDATED HIM ON THE INFO AND THIS NURSE ALSO LEFT INFORMATION ON DEMENTIA/ALZHEIMER AND THE SIDE AFFECTS OF HIGH POTASSIUM FOR SON TO SALES AND PRODUCTION MANAGER. SON THANKED THIS NURSE AND STATE HE WILL BE IN TONIGHT TO TALK TO . Original Note: FAMILY ASKING TO TALK TO ABOUT PT MENTAL STATUS AND ABOUT A SEIZURE THAT WAS REPORTED TO THEM THAT PT HAD LAST WEEK AND WAS TOLD IT WAS FOR 45 MIN. FAMILY ALSO ASKING FOR INFORMATION ON DEMENTIA AND ALZHEIMER. THIS NURSE STATED SHE WOULD FIND SOME INFO FOR THEM. RN AWARE AND NOTE LEFT FOR .
[2022-10-08 14:32] VITALS: BP 99/57; PULSE 69; RESP 16; TEMP 36; O2SAT 93
[2022-10-08] MEDS: Divalproex (ER) 500 MG Tablet 1000 MG PO (20:59)
[2022-10-08] MEDS: Tolterodine Tartrate 2 MG CAP.SA PO (21:00)
[2022-10-08] MEDS: Lacosamide 50 MG Tablet 150 MG PO (21:00)
[2022-10-08] MEDS: Atorvastatin Calcium 20 MG Tablet PO (21:00)
[2022-10-08] MEDS: Mirtazapine 30 MG Tablet PO (21:00)
[2022-10-09] MEDS: Divalproex (ER) 500 MG Tablet PO (05:07)
[2022-10-09] MEDS: LINAGLIPTIN 5 MG TABLET PO (05:07)
[2022-10-09] MEDS: Iron Polysaccharide Complex 150 MG CAPSULE PO (05:07)
[2022-10-09] MEDS: Pregabalin 50 MG Capsule 100 MG PO ×2 (05:08→18:43)
[2022-10-09] MEDS: Senna/Docusate Sodium 1 Tablet PO ×2 (05:08→18:43)
[2022-10-09] MEDS: FINERENONE 20 MG TABLET PO (05:09)
[2022-10-09] MEDS: Ramipril 10 MG Capsule PO (05:09)
[2022-10-09] MEDS: Lacosamide 100 MG Tablet PO (05:10)
[2022-10-09] MEDS: Menthol/Lanolin/Calamine/Znox 113 GM Tube 1 APPLIC TOPICAL ×2 (05:10→18:43)
[2022-10-09 06:29] LABS: Anion Gap 5 (5-15); BUN 22 mg/dL (7-18); BUN/Creat Ratio 26.6 RATIO (10-20); Calcium,Total 8.3 mg/dL (8.5-10.1); Chloride 102 mmol/L (98-107); Creatinine, Serum 0.83 mg/dL (0.55-1.02); EST Glomerular Filtration Rate 72 mL/min (>60); Est Glom Filt Rate - Afr Amer 88 mL/min (>60); Estimated Creatinine Clearance 49.88 ml/min; Glucose 154 mg/dL (74-106); Potassium 5.1 mmol/L (3.5-5.1); Sodium Level 136 mmol/L (136-145)
[2022-10-09] MEDS: Ascorbic Acid 500 MG Tablet PO (09:03)
[2022-10-09] MEDS: amLODIPine 10 MG Tablet PO (09:03)
--- NOTE | 2022-10-09 09:54 | CASEMGMT ---
Social Work SW left message with DIL Claudette, per request, updating her that pt receive additional time from insurance. NRD 10/16. No updates from [facility] or [facility]. SW to continue to follow. Ana Mosley, CONTOUR SANDER CAMERA TUNING ENGINEER
[2022-10-09 16:00] VITALS: BP 91/50; PULSE 61; RESP 16; TEMP 36; O2SAT 94
[2022-10-09] MEDS: Tolterodine Tartrate 2 MG CAP.SA PO (21:54)
[2022-10-09] MEDS: Lacosamide 50 MG Tablet 150 MG PO (21:54)
[2022-10-09] MEDS: Divalproex (ER) 500 MG Tablet 1000 MG PO (21:56)
[2022-10-09] MEDS: Atorvastatin Calcium 20 MG Tablet PO (21:56)
[2022-10-09] MEDS: Mirtazapine 30 MG Tablet PO (21:57)
[2022-10-09 23:23] VITALS: O2SAT 97
[2022-10-10] MEDS: FINERENONE 20 MG TABLET PO (05:17)
[2022-10-10] MEDS: Pregabalin 50 MG Capsule 100 MG PO ×2 (05:18→17:48)
[2022-10-10] MEDS: Divalproex (ER) 500 MG Tablet PO (05:19)
[2022-10-10] MEDS: Alendronate Sodium 70 MG Tablet PO (05:19)
[2022-10-10] MEDS: Iron Polysaccharide Complex 150 MG CAPSULE PO (05:19)
[2022-10-10] MEDS: Senna/Docusate Sodium 1 Tablet PO ×2 (05:20→17:48)
[2022-10-10] MEDS: Ramipril 10 MG Capsule PO (05:20)
[2022-10-10] MEDS: LINAGLIPTIN 5 MG TABLET PO (05:20)
[2022-10-10] MEDS: Lacosamide 100 MG Tablet PO (05:22)
[2022-10-10 08:17] VITALS: BP 131/68; PULSE 63; RESP 14; TEMP 36.1; O2SAT 90
[2022-10-10] MEDS: amLODIPine 10 MG Tablet PO (08:21)
[2022-10-10] MEDS: Ascorbic Acid 500 MG Tablet PO (08:21)
[2022-10-10] MEDS: Menthol/Lanolin/Calamine/Znox 113 GM Tube 1 APPLIC TOPICAL ×2 (08:22→17:48)
[2022-10-10 10:00] VITALS: PULSE 63; RESP 14; O2SAT 90
[2022-10-10 13:23] VITALS: BP 98/54; PULSE 63; RESP 14; TEMP 36.5; O2SAT 95
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
[2022-10-10] MEDS: Divalproex (ER) 500 MG Tablet 1000 MG PO (21:12)
[2022-10-10] MEDS: Lacosamide 50 MG Tablet 150 MG PO (21:12)
[2022-10-10] MEDS: Mirtazapine 30 MG Tablet PO (21:12)
[2022-10-10] MEDS: Tolterodine Tartrate 2 MG CAP.SA PO (21:13)
[2022-10-10] MEDS: Atorvastatin Calcium 20 MG Tablet PO (21:13)
[2022-10-11] MEDS: Pregabalin 50 MG Capsule 100 MG PO ×2 (06:04→17:19)
[2022-10-11] MEDS: Lacosamide 100 MG Tablet PO (06:06)
[2022-10-11] MEDS: FINERENONE 20 MG TABLET PO (06:06)
[2022-10-11] MEDS: Ramipril 10 MG Capsule PO (06:07)
[2022-10-11] MEDS: LINAGLIPTIN 5 MG TABLET PO (06:07)
[2022-10-11] MEDS: Iron Polysaccharide Complex 150 MG CAPSULE PO (06:08)
[2022-10-11] MEDS: Senna/Docusate Sodium 1 Tablet PO ×2 (06:08→17:16)
[2022-10-11] MEDS: Divalproex (ER) 500 MG Tablet PO (06:08)
[2022-10-11] MEDS: Menthol/Lanolin/Calamine/Znox 113 GM Tube 1 APPLIC TOPICAL ×2 (06:09→17:16)
[2022-10-11 06:14] VITALS: BP 112/54; PULSE 60
--- NOTE | 2022-10-11 07:19 | NURSING ---
Pt noted to be very tired in the mornings when it is time for 0600 meds. This morning VS were WNLs, pt responds to verbal stimuli but refuses to open her eyes. Care provided with 2 revising clerk and this FLAT LOCKER in the room. Medications administered whole in applesauce with much encouragement. Educated on importance of taking medications, as 2 of the morning meds are for seizures. Pt did not acknowledge education.
[2022-10-11] MEDS: Ascorbic Acid 500 MG Tablet PO (08:50)
[2022-10-11] MEDS: amLODIPine 10 MG Tablet PO (08:51)
[2022-10-11 14:12] VITALS: BP 102/60; PULSE 61; RESP 16; TEMP 36.5; O2SAT 94
[2022-10-11 19:35] VITALS: PULSE 61; RESP 18; O2SAT 94
[2022-10-11] MEDS: Divalproex (ER) 500 MG Tablet 1000 MG PO (19:46)
[2022-10-11] MEDS: Lacosamide 50 MG Tablet 150 MG PO (19:46)
[2022-10-11] MEDS: Mirtazapine 30 MG Tablet PO (19:47)
[2022-10-11] MEDS: Tolterodine Tartrate 2 MG CAP.SA PO (19:47)
[2022-10-11] MEDS: Atorvastatin Calcium 20 MG Tablet PO (19:47)
[2022-10-12] MEDS: FINERENONE 20 MG TABLET PO (06:33)
[2022-10-12] MEDS: LINAGLIPTIN 5 MG TABLET PO (06:34)
[2022-10-12] MEDS: Divalproex (ER) 500 MG Tablet PO (06:34)
[2022-10-12] MEDS: Senna/Docusate Sodium 1 Tablet PO ×2 (06:34→17:52)
[2022-10-12] MEDS: Iron Polysaccharide Complex 150 MG CAPSULE PO (06:34)
[2022-10-12] MEDS: Ramipril 10 MG Capsule PO (06:35)
[2022-10-12] MEDS: Menthol/Lanolin/Calamine/Znox 113 GM Tube 1 APPLIC TOPICAL ×2 (06:36→17:58)
[2022-10-12] MEDS: Lacosamide 100 MG Tablet PO (06:36)
[2022-10-12] MEDS: Pregabalin 50 MG Capsule 100 MG PO ×2 (06:36→17:52)
[2022-10-12] MEDS: Ascorbic Acid 500 MG Tablet PO (09:09)
[2022-10-12 10:45] VITALS: BP 102/55
--- NOTE | 2022-10-12 10:45 | NURSING ---
KG=437/55. PT REQUESTING TO HOLD NORVASC AT THIS TIME AND RECHECK BP IN A BIT.
--- NOTE | 2022-10-12 10:55 | MDS.RN ---
Information for the mds was obtained from review of the clinical record, interview of resident, staff, and direct observation of resident's care.
--- NOTE | 2022-10-12 14:36 | CASEMGMT ---
Social Work SW followed up with [facility] - they do not have beds availability. SW left voicemail with Treva at [facility]. SW to continue to follow. Ana Mosley, MANAGER WHOLESALE INDUSTRIAL ENERGY ENGINEER
[2022-10-12 15:17] VITALS: BP 105/60; PULSE 61; RESP 16; TEMP 36.3; O2SAT 92
[2022-10-12] MEDS: Magnesium Hydroxide 30 ML UDC PO (17:55)
[2022-10-12] MEDS: Divalproex (ER) 500 MG Tablet 1000 MG PO (21:50)
[2022-10-12] MEDS: Lacosamide 50 MG Tablet 150 MG PO (21:50)
[2022-10-12] MEDS: Atorvastatin Calcium 20 MG Tablet PO (21:51)
[2022-10-12] MEDS: Tolterodine Tartrate 2 MG CAP.SA PO (21:51)
[2022-10-12] MEDS: Mirtazapine 30 MG Tablet PO (21:51)
[2022-10-13 05:10] VITALS: BP 105/63; PULSE 59; RESP 14
[2022-10-13] MEDS: Pregabalin 50 MG Capsule 100 MG PO ×2 (05:10→17:56)
[2022-10-13] MEDS: Lacosamide 100 MG Tablet PO (05:10)
[2022-10-13] MEDS: Senna/Docusate Sodium 1 Tablet PO (05:11)
[2022-10-13] MEDS: LINAGLIPTIN 5 MG TABLET PO (05:11)
[2022-10-13] MEDS: Ramipril 10 MG Capsule PO (05:11)
[2022-10-13] MEDS: Iron Polysaccharide Complex 150 MG CAPSULE PO (05:11)
[2022-10-13] MEDS: Divalproex (ER) 500 MG Tablet PO (05:11)
[2022-10-13] MEDS: Menthol/Lanolin/Calamine/Znox 113 GM Tube 1 APPLIC TOPICAL ×2 (05:11→17:46)
[2022-10-13] MEDS: FINERENONE 20 MG TABLET PO (05:13)
[2022-10-13] MEDS: Ascorbic Acid 500 MG Tablet PO (08:32)
[2022-10-13] MEDS: Polyethylene Glycol 3350 17 GM PACKET PO ×2 (08:34→17:46)
[2022-10-13 08:44] VITALS: BP 103/66; PULSE 60
--- NOTE | 2022-10-13 13:10 | CASEMGMT ---
Addendum entered by Ana Mosley 10/14/22 16:08: Dtr contacted this worker stating she spoke with [facility] and they can accept pt, they are just waiting on DC date. SW left message with admissions to confirm. Will await return call. Dtr did not provide any additional facilities. Original Note: Social Work SW spoke with DIL Claudette to request additional SNF choices as [facility] has not provided an answer. Claudette deferred to son, Anil. SW left voicemail with son with request. Will continue to follow. KIRTI Jimenez
[2022-10-13 15:34] VITALS: BP 110/58; PULSE 60; RESP 14; TEMP 36.1; O2SAT 92
[2022-10-13] MEDS: Senna/Docusate Sodium 1 Tablet 2 TABLET PO (17:47)
[2022-10-13 20:00] VITALS: PULSE 68; RESP 16; O2SAT 96
[2022-10-13] MEDS: Atorvastatin Calcium 20 MG Tablet PO (20:11)
[2022-10-13] MEDS: Lacosamide 50 MG Tablet 150 MG PO (20:11)
[2022-10-13] MEDS: Tolterodine Tartrate 2 MG CAP.SA PO (20:11)
[2022-10-13] MEDS: Divalproex (ER) 500 MG Tablet 1000 MG PO (20:11)
[2022-10-13] MEDS: Mirtazapine 30 MG Tablet PO (20:11)
[2022-10-14] MEDS: Ramipril 10 MG Capsule PO (04:53)
[2022-10-14] MEDS: Polyethylene Glycol 3350 17 GM PACKET PO ×2 (04:54→17:30)
[2022-10-14] MEDS: Senna/Docusate Sodium 1 Tablet 2 TABLET PO ×2 (04:54→17:31)
[2022-10-14] MEDS: Iron Polysaccharide Complex 150 MG CAPSULE PO (04:54)
[2022-10-14] MEDS: Divalproex (ER) 500 MG Tablet PO (04:54)
[2022-10-14] MEDS: FINERENONE 20 MG TABLET PO (04:55)
[2022-10-14] MEDS: Pregabalin 50 MG Capsule 100 MG PO ×2 (04:55→17:31)
[2022-10-14] MEDS: LINAGLIPTIN 5 MG TABLET PO (04:55)
[2022-10-14] MEDS: Lacosamide 100 MG Tablet PO (04:56)
[2022-10-14] MEDS: Menthol/Lanolin/Calamine/Znox 113 GM Tube 1 APPLIC TOPICAL ×2 (04:56→17:30)
[2022-10-14 06:06] LABS: Absolute Lymphocyte Count 3.41 X10^3/uL (0.83-4.51); Absolute Neutrophil Count 2.7 X10^3/uL (2.0-7.7); Basophil# 0.04 X10^3/uL; Basophil% 0.6 % (0-1); Eosinophil# 0.05 X10^3/uL; Eosinophils% 0.7 % (0-5); Hematocrit 33.4 % (37-47); Hemoglobin 10.1 g/dL (12.0-15.0); Lymphocyte # 3.41 X10^3/ul (0.83-4.51); Lymphocyte % 48.3 % (19-41); Mean Corp Hgb Conc 30.2 g/dL (32-36); Mean Corpuscular Hgb 28.4 pg (27.0-32.0); Mean Corpuscular Volume 93.8 fL (81-99); Mean Platelet Vol. 9.8 fl (6.2-12.0); Monocyte# 0.82 X10^3/uL; Monocyte% 11.6 % (0-10); NRBC Flagged by Analyzer 0 % (0-5); Neutrophil # 2.65 X10^3/uL (2.7-7.7); Neutrophil % 37.5 % (47-70); Platelet Count 174 K/mm3 (150-450); RBC Distribution Width CV 16.3 % (11.6-14.6); RBC Distribution Width SD 56.3 fl (35.1-43.9); Red Blood Count 3.56 M/mm3 (4.2-5.4); White Blood Count 7.1 K/mm3 (4.4-11.0)
[2022-10-14 07:45] LABS: Anion Gap 6 (5-15); BUN 40 mg/dL (7-18); BUN/Creat Ratio 37.4 RATIO (10-20); Calcium,Total 9.2 mg/dL (8.5-10.1); Chloride 101 mmol/L (98-107); Creatinine, Serum 1.07 mg/dL (0.55-1.02); EST Glomerular Filtration Rate 54 mL/min (>60); Est Glom Filt Rate - Afr Amer 65 mL/min (>60); Estimated Creatinine Clearance 38.69 ml/min; Glucose 141 mg/dL (74-106); Potassium 6.2 mmol/L (3.5-5.1); Sodium Level 133 mmol/L (136-145)
[2022-10-14] MEDS: Ascorbic Acid 500 MG Tablet PO (08:34)
[2022-10-14] MEDS: amLODIPine 10 MG Tablet PO (08:34)
[2022-10-14] MEDS: Sodium Polystyrene Sulfonate 15 GM/60 ML UDC 30 GM PO (08:35)
[2022-10-14] MEDS: Magnesium Hydroxide 30 ML UDC PO (15:51)
--- NOTE | 2022-10-14 15:57 | NURSING ---
Potassium critical value of 6.[address] Sepulveda made aware at 0746 and ordered 2 doses of Kayexalate.
[2022-10-14 16:00] VITALS: BP 117/60; PULSE 65; RESP 16; TEMP 35.9
--- NOTE | 2022-10-14 21:56 | NURSING ---
Paged Dr. Valadez with immediate return call and notified him pt has not had a BM yet, despite receiving 30 gm of Kayexelate this AM. New order entered for 1 liter of Moodswing. RN aware.
[2022-10-14] MEDS: Electrolyte Solution/Peg's 4000 ML 1000 ML PO (22:12)
[2022-10-14] MEDS: Lacosamide 50 MG Tablet 150 MG PO (22:14)
[2022-10-14] MEDS: Mirtazapine 30 MG Tablet PO (22:15)
[2022-10-14] MEDS: Divalproex (ER) 500 MG Tablet 1000 MG PO (22:15)
[2022-10-14] MEDS: Tolterodine Tartrate 2 MG CAP.SA PO (22:15)
[2022-10-14] MEDS: Atorvastatin Calcium 20 MG Tablet PO (22:15)
[2022-10-15] MEDS: Pregabalin 50 MG Capsule 100 MG PO (06:06)
[2022-10-15] MEDS: Senna/Docusate Sodium 1 Tablet 2 TABLET PO (06:07)
[2022-10-15] MEDS: FINERENONE 20 MG TABLET 10 MG PO (06:08)
[2022-10-15] MEDS: Ramipril 10 MG Capsule PO (06:09)
[2022-10-15] MEDS: LINAGLIPTIN 5 MG TABLET PO (06:09)
[2022-10-15] MEDS: Iron Polysaccharide Complex 150 MG CAPSULE PO (06:09)
[2022-10-15] MEDS: Divalproex (ER) 500 MG Tablet PO (06:09)
[2022-10-15] MEDS: Polyethylene Glycol 3350 17 GM PACKET PO (06:10)
[2022-10-15] MEDS: Menthol/Lanolin/Calamine/Znox 113 GM Tube 1 APPLIC TOPICAL ×2 (06:15→18:13)
[2022-10-15] MEDS: Lacosamide 100 MG Tablet PO (06:16)
[2022-10-15 06:59] LABS: Anion Gap 6 (5-15); BUN 39 mg/dL (7-18); BUN/Creat Ratio 31.5 RATIO (10-20); Calcium,Total 8.8 mg/dL (8.5-10.1); Chloride 100 mmol/L (98-107); Creatinine, Serum 1.24 mg/dL (0.55-1.02); EST Glomerular Filtration Rate 45 mL/min (>60); Est Glom Filt Rate - Afr Amer 55 mL/min (>60); Estimated Creatinine Clearance 33.39 ml/min; Glucose 149 mg/dL (74-106); Potassium 6.6 mmol/L (3.5-5.1); Sodium Level 132 mmol/L (136-145)
[2022-10-15] MEDS: amLODIPine 10 MG Tablet PO (08:03)
[2022-10-15] MEDS: Ascorbic Acid 500 MG Tablet PO (08:03)
[2022-10-15 08:06] VITALS: BP 106/53; PULSE 53
[2022-10-15] MEDS: Sodium Polystyrene Sulfonate 15 GM/60 ML UDC 30 GM PO ×2 (08:36→20:09)
[2022-10-15] MEDS: Lactulose 20 GM/30 ML UDC 200 GM RC ×2 (10:49→14:50)
--- NOTE | 2022-10-15 11:16 | NURSING ---
Enema administered to pt by this nurse and DUSTIN Lantigua assisted. Spouse present in room to reassure pt. pt tolerated enema well., but noted to be impacted. This nurse disimpacted pt and pt produced a large firm BM, assisted on bedpan to complete BM. Spouse at bedside. Will continue to monitor.
[2022-10-15 13:55] LABS: Anion Gap 5 (5-15); BUN 40 mg/dL (7-18); BUN/Creat Ratio 30.8 RATIO (10-20); Calcium,Total 8.5 mg/dL (8.5-10.1); Chloride 101 mmol/L (98-107); EST Glomerular Filtration Rate 43 mL/min (>60); Est Glom Filt Rate - Afr Amer 52 mL/min (>60); Estimated Creatinine Clearance 31.85 ml/min; Glucose 145 mg/dL (74-106); Potassium 6.6 mmol/L (3.5-5.1); Sodium Level 134 mmol/L (136-145)
--- NOTE | 2022-10-15 14:00 | NURSING ---
Notified Dr. Valadez of pt K+ level, received order to administer another lactulose 200g enema and Kayexlate 20 g
[2022-10-15] MEDS: Sodium Polystyrene Sulfonate 15 GM/60 ML UDC 20 GM PO (14:34)
--- NOTE | 2022-10-15 15:10 | NURSING ---
Potassium level remains unchanged, per Dr. Valadez Lactulose enema ordered again. Enema administered to pt by this nurse and DUSTIN Suarez assisted. Spouse present in room to reassure pt., pt tolerated enema well. Spouse at bedside. Will continue to monitor.
[2022-10-15 16:00] VITALS: BP 102/59; PULSE 60; RESP 14; TEMP 36.4; O2SAT 91
[2022-10-15] MEDS: Dextrose 50%-Water 25 GM/50 ML DISP.SYRIN IV (16:20)
[2022-10-15] MEDS: 0.9% Normal Saline 1,000 ML 999 ML IV (16:20)
[2022-10-15] MEDS: Insulin Lispro 100 UNIT/ML INSULN.PEN 10 UNIT SC (16:31)
[2022-10-15 16:51] LABS: Bedside Glucose 335 mg/dL (74-106)
[2022-10-15] MEDS: 0.9% Normal Saline 1,000 ML 75 ML IV (18:13)
[2022-10-15 19:28] LABS: Anion Gap 7 (5-15); BUN 38 mg/dL (7-18); BUN/Creat Ratio 30.9 RATIO (10-20); Chloride 105 mmol/L (98-107); Creatinine, Serum 1.23 mg/dL (0.55-1.02); EST Glomerular Filtration Rate 46 mL/min (>60); Est Glom Filt Rate - Afr Amer 55 mL/min (>60); Estimated Creatinine Clearance 33.66 ml/min; Glucose 123 mg/dL (74-106); Potassium 5.2 mmol/L (3.5-5.1); Sodium Level 138 mmol/L (136-145)
[2022-10-15 19:45] VITALS: PULSE 60; O2SAT 92
--- NOTE | 2022-10-15 20:29 | NURSING ---
BMP drawn and potassium has decreased to 5.2. Rory paged with immediate call back. New order for 30 gm of Kayexalate and recheck BMP in the morning (10/16). Family updated. VS obtained. BP noted to be 80/50. Family requesting pt be sent to the ED for evaluation. Dr. Valadez notified. Report called to ED and pt will be sent down when a bed becomes available. New order for bolus of NS started. Family aware and very appreciative of interventions.
[2022-10-15 21:05] VITALS: PULSE 62; RESP 12; O2SAT 95
[2022-10-15] MEDS: Albuterol *CONC* 2.5mg/0.5mL VIAL.NEB. 10 MG INHALATION (21:05)
[2022-10-15] MEDS: Lacosamide 50 MG Tablet 150 MG PO (21:08)
[2022-10-15] MEDS: Tolterodine Tartrate 2 MG CAP.SA PO (21:09)
[2022-10-15] MEDS: Atorvastatin Calcium 20 MG Tablet PO (21:09)
[2022-10-15] MEDS: Divalproex (ER) 500 MG Tablet 1000 MG PO (21:09)
[2022-10-15] MEDS: Mirtazapine 30 MG Tablet PO (21:10)
--- NOTE | 2022-10-15 21:34 | NURSING ---
Pt transported to the ED for evaluation at this time.
--- NOTE | 2022-10-16 01:37 | NURSING ---
Pt returned from ER w/ son accompanying her. Pt received NS fluids and got x-rays of her lungs, foot, and ankle. Foot and ankle impressions negative. Lungs impressions sm L pleural effusion. Vitals stable upon return. NS fluids resumed as ordered.
[2022-10-16 01:41] VITALS: BP 100/57; PULSE 60; RESP 16; TEMP 36.8; O2SAT 95
[2022-10-16] MEDS: Acetaminophen 500 MG Tablet 1000 MG PO (05:15)
[2022-10-16] MEDS: Pregabalin 50 MG Capsule 100 MG PO ×2 (05:15→17:29)
[2022-10-16] MEDS: Divalproex (ER) 500 MG Tablet PO (05:16)
[2022-10-16] MEDS: LINAGLIPTIN 5 MG TABLET PO (05:16)
[2022-10-16] MEDS: Menthol/Lanolin/Calamine/Znox 113 GM Tube 1 APPLIC TOPICAL ×2 (05:16→17:34)
[2022-10-16] MEDS: Iron Polysaccharide Complex 150 MG CAPSULE PO (05:16)
[2022-10-16] MEDS: Lacosamide 100 MG Tablet PO (05:17)
[2022-10-16 06:28] LABS: Anion Gap 7 (5-15); BUN 29 mg/dL (7-18); BUN/Creat Ratio 34.6 RATIO (10-20); Calcium,Total 7.4 mg/dL (8.5-10.1); Chloride 108 mmol/L (98-107); Creatinine, Serum 0.84 mg/dL (0.55-1.02); EST Glomerular Filtration Rate 71 mL/min (>60); Est Glom Filt Rate - Afr Amer 86 mL/min (>60); Estimated Creatinine Clearance 49.29 ml/min; Glucose 116 mg/dL (74-106); Potassium 4.8 mmol/L (3.5-5.1); Sodium Level 141 mmol/L (136-145)
--- NOTE | 2022-10-16 08:26 | CASEMGMT ---
Social Work Received call from Treva at [facility] who can clinically accept pt but unsure of bed availability for when pt gets DC date. [facility] SW to continue to follow. Ana Mosley, BACKGROUND INVESTIGATOR [employer] S[employer]ER
[2022-10-16 08:41] VITALS: O2SAT 95
[2022-10-16] MEDS: 0.9% Normal Saline 1,000 ML 75 ML IV (09:02)
[2022-10-16 10:00] VITALS: PULSE 72; RESP 16; O2SAT 94
--- NOTE | 2022-10-16 10:31 | CASEMGMT ---
Addendum entered by Ana Mosley 10/16/22 17:22: PASRR completed. Level II evaluation required. Will await determination. Addendum entered by Ana Mosley 10/16/22 16:29: Received call from son, Mao, with the appeal . Son also stated the family just toured [facility] and requesting a referral there. Referral sent to [facility] via [employer]. Will await outcome of appeal. Addendum entered by Ana Mosley 10/16/22 13:13: Received return call from Treva at [facility] and d/t unforeseen circumstances, Treva is unable to provide confirmation if there is a bed available for the pt 10/19. An answer will not be determined until mid-late day on 10/19. Received call from dtr, Claudette, clarifying information from , Claudette confirms [facility] is the plan and she will file the appeal. SW updated dtr about issue with [employer]. Offered for pt to pay privately in TCU until there is a bed or to choose another SNF. Dtr to speak with family and notify this worker of decision. SW to continue to follow. Plan: DC 10/19, pending appeal to SNF intermediate Original Note: Social Work Insurance issued LCD 10/18, DC 10/19. Spoke with about DC date. Explained appeal rights and confirmed plan remains transfer to [facility]. confirmed and took appeal phone number. to discuss with family and contact this worker with decision. SW left voicemail with [facility] to notify of DC date and confirm bed availability. Will continue to follow. KIRTI Jimenez LW
--- NOTE | 2022-10-16 11:54 | NURSING ---
This nurse went into patient room following reports from BELLPERSON and therapy the patient was tearful following therapy. Patient appeared to believe this nurse was her daughter. Patient told this nurse the following You have a brother in [place]. I thought you should know. Have Thuan call him (son) and tell him it is not his fault. This nurse inquired about when the son was born and was told when I was young. This nurse gently told patient that she was not daughter. Patient did not seem to understandinformation stating, I know who you are and I love you honey.
--- NOTE | 2022-10-16 13:16 | CASEMGMT ---
Social Work BIMS (08/13) and PHQ-9 () completed for MDS assessment. Pt is noted to be in a good mood, joking with this worker, and calling this worker honey. Ana Mosley, KIRTI QUINTANAW
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
--- NOTE | 2022-10-16 13:48 | TREXTCAR_ITS ---
Diet Diet Order/Speech Therapy: 09/29/22 20:07 Diet: Consistent Carb - Calorie Controlled Food consistency:: Regular Liquid Consistency:: Regular/Thin Dietary Modifications:: Cardiac / Heart Healthy Is pt able to select menu?: No How many daily calories?: 1800 calorie Routine Orders/Code Status Enema Type: Fleetz Enema Frequency: Daily PRN Code Status: Full Code Wound(s) Right elbow scab: Wound Type: Scab Intact blisters pubic region (4): Wound Type: Intact blisters buttocks: Wound Type: shearing Dressing Change: froylan Therapies Weight Bearing: Weight bearing as tolerated Extremity Affected:: Bilateral Lower Physical Therapy: Eval and Treat Occupational Therapy: Eval and Treat Problem/Diagnosis (1) Debility: Status: Acute Code(s): R53.81 - Other malaise (2) Multiple falls: Status: Acute Code(s): R29.6 - Repeated falls (3) Failure to thrive: Status: Acute (4) Acute kidney injury: Status: Acute Code(s): N17.9 - Acute kidney failure, unspecified (5) Anemia: Status: Acute Code(s): D64.9 - Anemia, unspecified (6) Osteoporosis: Status: Acute Code(s): M81.0 - Age-related osteoporosis without current pathological fracture (7) Hypertension: Status: Chronic Code(s): I10 - Essential (primary) hypertension (8) Hyperlipidemia: Status: Acute Code(s): E78.5 - Hyperlipidemia, unspecified (9) Seizure disorder: Status: Acute Code(s): G40.909 - Epilepsy, unspecified, not intractable, without status epilepticus (10) Nephrotic range proteinuria: Status: Acute Code(s): R80.9 - Proteinuria, unspecified (11) Diabetes mellitus: Status: Acute Code(s): E11.9 - Type 2 diabetes mellitus without complications (12) Overactive bladder: Status: Acute Code(s): N32.81 - Overactive bladder (13) Diabetic polyneuropathy: Status: Acute Code(s): E11.42 - Type 2 diabetes mellitus with diabetic polyneuropathy Plan 72 year old female with below past medical history hospitalized for falls, failure to thrive secondary to urinary tract infection, complicated by acute kidney injury, urinary retention, anemia, seizures, admitted to TCU with debility, here for rehabilitation, strengthening, prior to discharge home with . * Debility - PT/OT. * Dysphagia - ST. * Pain - Tylenol 1000mg q6h prn pain (1-10). * Bowel - senna/colace 1 tablet bid, MOM 30ml po x 1 prn. * Adult immunization - Administer pneumonia vaccine, covid19 vaccine, flu vaccine. * DVT prophylaxis - Hold, anemia. * Hypertension - Ramipril 10mg daily, Amlodipine 10mg daily. * Proteinuria - Kerendia 20mg daily. * E. Coli urinary tract infection - Levaquin 750mg daily x 3 days. * Hyperlipidemia - Atorvastatin 20mg qhs. * Overactive bladder - Oxybutynin 10mg qhs. * Osteoporosis - Alendronate 70mg per week, * Seizure disorder - Depakote 500mg, 1000mg, Vimpat 100mg, 150mg. * Diabetes Mellitus II - Januvia 100mg daily. * Depression/insomnia/appetite loss - Mirtazapine 30mg qhs, stable chronic intermediate card tender use, GDR not recommended. * Diabetic polyneuropathy - Lyrica 100mg bid. * Iron deficiency anemia - Ferrex 150mg daily, Vitamin C, monitor H&H. * Hypokalemia - KCL 40meq x 1, then 20meq daily, monitor BMP. Allergies/Procedures Done in Hospital Allergies amoxicillin [From Augmentin] Allergy (Verified 10/16/22 00:23) Rash RASH ON FACE clavulanic acid [From Augmentin] Allergy (Verified 10/16/22 00:23) Rash RASH ON FACE escitalopram [From Lexapro] Allergy (Verified 10/16/22 00:23) Rash shellfish derived Allergy (Verified 10/16/22 00:23) Unknown hydroxychloroquine [From Plaquenil] Adverse Reaction (Severe, Verified 10/16/22 00:23) Unknown house dust Adverse Reaction (Verified 10/16/22 00:23) NEEDS FOLLOW-UP perfume Adverse Reaction (Verified 10/16/22 00:23) Unknown pineapple Adverse Reaction (Verified 10/16/22 00:23) Rash quinine Adverse Reaction (Verified 10/16/22 00:23) Unknown strawberry Adverse Reaction (Verified 10/16/22 00:23) Rash Sulfa (Sulfonamide Antibiotics) Adverse Reaction (Verified 10/16/22 00:23) Unknown Type of Care/Length of Stay Estimated LOS: More Than 30 Days Type of Care Needed: Intermediate Rehab Potential: Poor Prognosis: Poor Additional Orders/Day of Discharge Day of Discharge: 10/19/22 Dietary and Speech Recommendations Dietitian Recommendations/Changes: Will continue 1800 ignacia Cardiac diet d/t pmhx Follow Up Care Please Follow Up With: Teresa Alvarez DO When: 2 weeks. Discharge Plan Admission Admit Date/Time: 09/29/22 18:40 Primary Reason for Your Visit: Debility. Attending Provider: Devin Valadez Chi Primary Care Provider: Hannah Riggs Instructions Additional Instructions / Restrictions: Discharge to [facility] 10/19/2022, pending appeal, intermediate. Discharge Orders/Prescriptions Prescriptions: New sennosides-docusate sodium [Stool Softener-Stimulant Laxat] 8.6-50 mg Tablet 2 tab PO BID Qty: 0 0RF ascorbic acid (vitamin C) 500 mg Tablet 500 mg PO BREAKFAST Qty: 0 0RF polysaccharide iron complex [Ferrex 150] 150 mg iron Capsule 150 mg PO DAILY Qty: 0 0RF menthol-zinc oxide [Calmoseptine] 0.44-20.6 % Ointment 1 applic topical BID Qty: 0 0RF Protocol: *Topical Application Instructions APPLICATION INSTRUCTIONS: apply to nicola buttocks/coccyx polyethylene glycol 3350 17 gram Powder In Packet 17 g PO BID Qty: 0 0RF Continued oxybutynin chloride 5 MG tablet 10 mg PO QHS Label Comments: bladder alendronate 70 mg Tablet 70 mg PO SA divalproex [Depakote ER] 500 mg Tablet Extended Release 24 Hr 500 mg PO DAILY divalproex [Depakote ER] 500 mg Tablet Extended Release 24 Hr 1,000 mg PO QHS Januvia 50 mg Tablet 100 mg PO DAILY Rx Instructions: with first meal lacosamide [Vimpat] 100 mg tablet 100 mg PO DAILY Label Comments: TAKE 1 TABLET BY MOUTH EVERY MORNING acetaminophen 500 mg Tablet 1,000 mg PO Q6H PRN PRN (Reason: Pain Score 1-10) Qty: 0 0RF mirtazapine 15 mg tablet 30 mg PO QHS pregabalin 100 mg Capsule 100 mg PO BID 5 Days Qty: 10 0RF atorvastatin 20 mg tablet 20 mg PO QHS amlodipine 10 mg tablet 10 mg PO DAILY lacosamide [Vimpat] 100 mg tablet 150 mg PO QHS Discontinued sennosides-docusate sodium [Stool Softener-Stimulant Laxat] 8.6-50 mg Tablet 2 tab PO BID PRN PRN (Reason: Constipation) Qty: 0 0RF levofloxacin 750 mg tablet 750 mg PO DAILY@0600 Kerendia 20 mg tablet 20 mg PO DAILY Kerendia 20 mg tablet 10 mg PO DAILY ramipril 10 mg capsule 10 mg PO DAILY Qty: 90 3RF Referrals / Follow Up: Hannah Riggs DO [Primary Care Provider] - Disposition Disposition (needs filled in before D/C Order can be placed): NonSkilled NH/Intermed Care
[2022-10-16 16:00] VITALS: BP 119/70; PULSE 60; RESP 16; TEMP 36.1; O2SAT 92
[2022-10-16] MEDS: Lacosamide 50 MG Tablet 150 MG PO (21:49)
[2022-10-16] MEDS: Atorvastatin Calcium 20 MG Tablet PO (21:51)
[2022-10-16] MEDS: Divalproex (ER) 500 MG Tablet 1000 MG PO (21:51)
[2022-10-16] MEDS: Tolterodine Tartrate 2 MG CAP.SA PO (21:51)
[2022-10-16] MEDS: Mirtazapine 30 MG Tablet PO (21:52)
[2022-10-17] MEDS: Polyethylene Glycol 3350 17 GM PACKET PO ×2 (06:09→17:20)
[2022-10-17] MEDS: Pregabalin 50 MG Capsule 100 MG PO ×2 (06:10→17:19)
[2022-10-17] MEDS: Divalproex (ER) 500 MG Tablet PO (06:11)
[2022-10-17] MEDS: Iron Polysaccharide Complex 150 MG CAPSULE PO (06:11)
[2022-10-17] MEDS: Alendronate Sodium 70 MG Tablet PO (06:11)
[2022-10-17] MEDS: Senna/Docusate Sodium 1 Tablet 2 TABLET PO ×2 (06:11→17:21)
[2022-10-17] MEDS: LINAGLIPTIN 5 MG TABLET PO (06:11)
[2022-10-17] MEDS: Lacosamide 100 MG Tablet PO (06:12)
[2022-10-17] MEDS: 0.9% Normal Saline 1,000 ML 75 ML IV ×2 (06:15→22:48)
[2022-10-17] MEDS: Menthol/Lanolin/Calamine/Znox 113 GM Tube 1 APPLIC TOPICAL ×2 (06:17→17:20)
[2022-10-17 07:40] LABS: Anion Gap 6 (5-15); BUN 18 mg/dL (7-18); BUN/Creat Ratio 28.1 RATIO (10-20); Calcium,Total 8.1 mg/dL (8.5-10.1); Chloride 110 mmol/L (98-107); Creatinine, Serum 0.64 mg/dL (0.55-1.02); EST Glomerular Filtration Rate 97 mL/min (>60); Est Glom Filt Rate - Afr Amer 118 mL/min (>60); Glucose 100 mg/dL (74-106); Potassium 4.4 mmol/L (3.5-5.1); Sodium Level 142 mmol/L (136-145)
[2022-10-17 08:04] VITALS: O2SAT 95
[2022-10-17] MEDS: Ascorbic Acid 500 MG Tablet PO (09:14)
[2022-10-17 09:26] VITALS: BP 98/49; PULSE 64
[2022-10-17 10:00] VITALS: PULSE 65; RESP 16; O2SAT 93
--- NOTE | 2022-10-17 14:19 | NURSING ---
THIS NURSE INTO CHECK ON PT. PT AND SON IN ROOM. PT IS CRYING. ASKED PT WHAT WAS WRONG AND IF THERE WAS SOMETHING I COULD DO FOR HER. PT STATED NO ADELINE OK. STATED TO PT TO CALL IF SHE NEEDED ANY THING AND THAT I WOULD BE BACK TO CHECK ON HER. PT STATED OK.
[2022-10-17 16:00] VITALS: BP 134/67; PULSE 60; RESP 16; TEMP 36.1; O2SAT 96
[2022-10-17] MEDS: Mirtazapine 30 MG Tablet PO (21:02)
[2022-10-17] MEDS: Divalproex (ER) 500 MG Tablet 1000 MG PO (21:02)
[2022-10-17] MEDS: Atorvastatin Calcium 20 MG Tablet PO (21:02)
[2022-10-17] MEDS: Tolterodine Tartrate 2 MG CAP.SA PO (21:02)
[2022-10-17] MEDS: Lacosamide 50 MG Tablet 150 MG PO (21:02)
[2022-10-18 05:55] LABS: Anion Gap 7 (5-15); BUN 22 mg/dL (7-18); BUN/Creat Ratio 32.1 RATIO (10-20); Chloride 112 mmol/L (98-107); Creatinine, Serum 0.68 mg/dL (0.55-1.02); EST Glomerular Filtration Rate 90 mL/min (>60); Est Glom Filt Rate - Afr Amer 109 mL/min (>60); Glucose 136 mg/dL (74-106); Sodium Level 142 mmol/L (136-145)
[2022-10-18] MEDS: Senna/Docusate Sodium 1 Tablet 2 TABLET PO ×2 (06:42→17:59)
[2022-10-18] MEDS: LINAGLIPTIN 5 MG TABLET PO (06:42)
[2022-10-18] MEDS: Polyethylene Glycol 3350 17 GM PACKET PO ×2 (06:42→17:59)
[2022-10-18] MEDS: Menthol/Lanolin/Calamine/Znox 113 GM Tube 1 APPLIC TOPICAL ×2 (06:42→17:58)
[2022-10-18] MEDS: Divalproex (ER) 500 MG Tablet PO (06:43)
[2022-10-18] MEDS: FINERENONE 20 MG TABLET 10 MG PO (06:43)
[2022-10-18] MEDS: Iron Polysaccharide Complex 150 MG CAPSULE PO (06:43)
[2022-10-18 07:00] VITALS: BP 167/75; PULSE 61; PULSE 68; RESP 16; O2SAT 91
[2022-10-18] MEDS: Pregabalin 50 MG Capsule 100 MG PO ×2 (07:00→18:03)
[2022-10-18] MEDS: Ascorbic Acid 500 MG Tablet PO (07:01)
[2022-10-18] MEDS: amLODIPine 10 MG Tablet PO (07:01)
[2022-10-18] MEDS: Lacosamide 100 MG Tablet PO (07:06)
[2022-10-18 10:56] VITALS: O2SAT 92
[2022-10-18] MEDS: 0.9% Normal Saline 1,000 ML 75 ML IV (13:13)
[2022-10-18 15:24] VITALS: BP 115/65; PULSE 65; RESP 16; TEMP 36.3; O2SAT 94
--- NOTE | 2022-10-18 19:31 | NURSING ---
THIS NURSE D/C IV DUE TO INFILTRATION. RN AND CONSUMER LOAN UNDERWRITER CAME IN ROOM TO PUT NEW IV IN. PT WOULD SAY OUCH OVER AND OVER. WAS PRESENT IN ROOM. AFTER NEW IV WAS IN THIS NURSE WOULD GO BACK AND RECHECK AREA AND MAKE SURE FLUID WAS RUNNING. EACH TIME PT WOULD STATE THEY WERE TRYING TO KILL ME,THEY WERE TRYING TO KILL ME. THIS NURSE REASSURED PT THE NURSES WERE JUST TRYING TO HELP HER AND EXPLAINED WHY. AT ONE TIME THE WAS IN ROOM AND ALSO STATED TO HIS THAT THE NURSES WERE JUST TRYING TO HELP HER. RN AWARE
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
[2022-10-18] MEDS: Lacosamide 50 MG Tablet 150 MG PO (21:36)
[2022-10-18] MEDS: Atorvastatin Calcium 20 MG Tablet PO (21:40)
[2022-10-18] MEDS: Tolterodine Tartrate 2 MG CAP.SA PO (21:41)
[2022-10-18] MEDS: Divalproex (ER) 500 MG Tablet 1000 MG PO (21:41)
[2022-10-18] MEDS: Mirtazapine 30 MG Tablet PO (21:41)
[2022-10-19] MEDS: 0.9% Normal Saline 1,000 ML 75 ML IV ×2 (02:57→16:23)
[2022-10-19] MEDS: Pregabalin 50 MG Capsule 100 MG PO ×2 (05:23→18:02)
[2022-10-19] MEDS: Lacosamide 100 MG Tablet PO (05:23)
[2022-10-19] MEDS: LINAGLIPTIN 5 MG TABLET PO (05:24)
[2022-10-19] MEDS: Polyethylene Glycol 3350 17 GM PACKET PO ×2 (05:24→18:01)
[2022-10-19] MEDS: Senna/Docusate Sodium 1 Tablet 2 TABLET PO ×2 (05:24→18:01)
[2022-10-19] MEDS: Iron Polysaccharide Complex 150 MG CAPSULE PO (05:25)
[2022-10-19] MEDS: Menthol/Lanolin/Calamine/Znox 113 GM Tube 1 APPLIC TOPICAL ×2 (05:25→18:04)
[2022-10-19] MEDS: Divalproex (ER) 500 MG Tablet PO (05:25)
[2022-10-19] MEDS: FINERENONE 20 MG TABLET 10 MG PO (05:25)
[2022-10-19 05:54] LABS: Anion Gap 6 (5-15); BUN 16 mg/dL (7-18); BUN/Creat Ratio 24.3 RATIO (10-20); Calcium,Total 8.3 mg/dL (8.5-10.1); Chloride 110 mmol/L (98-107); Creatinine, Serum 0.66 mg/dL (0.55-1.02); EST Glomerular Filtration Rate 94 mL/min (>60); Est Glom Filt Rate - Afr Amer 114 mL/min (>60); Glucose 108 mg/dL (74-106); Potassium 4.3 mmol/L (3.5-5.1); Sodium Level 141 mmol/L (136-145)
[2022-10-19] MEDS: amLODIPine 10 MG Tablet PO (08:13)
[2022-10-19] MEDS: Ascorbic Acid 500 MG Tablet PO (08:14)
--- NOTE | 2022-10-19 09:16 | CASEMGMT ---
Addendum entered by Ana Mosley 10/19/22 13:33: SW left message with son Mao. SW spoke with and inquired about DC plan. will talk to the children and contact this worker. Addendum entered by Ana Mosley 10/19/22 11:35: Received call from Tre[facility] and they can accept pt tomorrow, 10/20. [facility] responded in [facility]Port and are unable to accept pt due to psychosocial needs. ROMI left voicemail from yeu Wilkins, to update. Explained if pt does not DC today, she will be private pay. Offered to refer to other facilities. Will continue to follow. Addendum entered by Ana Mosley 10/19/22 09:21: Left voicemail with yue Wilkins, of all below information. Original Note: Social Work Pt lost appeal. ROMI spoke with Treva at [facility] to update on DC today. Treva to notify this worker as soon as she has an answer on admission. Treva did state [facility] is not in network with [facility] and to ensure the family is aware. ROMI agreed as this was not mentioned previously. ROMI spoke with Kay at [facility] to alert of referral late Wednesday as pt is ready to admit this date. Kay to review and notify this worker. ROMI to continue to follow. KIRTI Jimenez
--- NOTE | 2022-10-19 13:45 | CASEMGMT ---
Social Work Received call from sonMao, that family has all agreed for pt to pay privately on TCU until bed is available at [facility] 10/20. Son requesting transport be scheduled for afternoon. SW offered 1300 - son agreeable. SW spoke with [facility] to confirm - [facility]va confirmed. Updated Treva that Level II results have not been provided at this time and cannot DC until those are received and approved. [facility] expressed understanding. IDT updated. Cot transport scheduled through [facility] for 1300. SW can reschedule if PAS results are not received. Plan: DC 10/20 to [facility], intermediate, private pay KIRTI Jimenez
[2022-10-19 15:51] VITALS: BP 135/64; PULSE 60; RESP 18; TEMP 36.1; O2SAT 96
[2022-10-19] MEDS: Divalproex (ER) 500 MG Tablet 1000 MG PO (21:30)
[2022-10-19] MEDS: Tolterodine Tartrate 2 MG CAP.SA PO (21:31)
[2022-10-19] MEDS: Atorvastatin Calcium 20 MG Tablet PO (21:31)
[2022-10-19] MEDS: Lacosamide 50 MG Tablet 150 MG PO (21:31)
[2022-10-19] MEDS: Mirtazapine 30 MG Tablet PO (21:31)
[2022-10-20] MEDS: Menthol/Lanolin/Calamine/Znox 113 GM Tube 1 APPLIC TOPICAL ×2 (05:34→17:44)
[2022-10-20] MEDS: 0.9% Normal Saline 1,000 ML 75 ML IV ×2 (05:34→19:00)
[2022-10-20] MEDS: Divalproex (ER) 500 MG Tablet PO (05:35)
[2022-10-20] MEDS: Iron Polysaccharide Complex 150 MG CAPSULE PO (05:35)
[2022-10-20] MEDS: FINERENONE 20 MG TABLET 10 MG PO (05:35)
[2022-10-20] MEDS: Pregabalin 50 MG Capsule 100 MG PO ×2 (05:36→17:42)
[2022-10-20] MEDS: Lacosamide 100 MG Tablet PO (05:37)
[2022-10-20] MEDS: LINAGLIPTIN 5 MG TABLET PO (05:37)
[2022-10-20 07:30] VITALS: O2SAT 92
[2022-10-20] MEDS: amLODIPine 10 MG Tablet PO (08:22)
[2022-10-20] MEDS: Ascorbic Acid 500 MG Tablet PO (08:22)
--- NOTE | 2022-10-20 09:07 | CASEMGMT ---
Addendum entered by Ana Mosley 10/20/22 12:27: Results have not been received yet. Transport placed on Will Call. Updated IDT and Rteva at [facility]. Original Note: Social Work SW checked [facility] for PAS results - have not received. SW phoned [facility]. Rep stated there was an influx of submissions over the weekend and are working to review all of them as timely as possible. SW to continue to check. Ana Mosley, MANAGER DEMAND BUHR MILL OPERATOR
--- NOTE | 2022-10-20 11:20 | NURSING ---
Report called to Treva at [facility] at this time.
[2022-10-20 15:56] VITALS: BP 142/70; PULSE 63; RESP 18; TEMP 36.2; O2SAT 93
[2022-10-20] MEDS: Polyethylene Glycol 3350 17 GM PACKET PO (17:41)
[2022-10-20] MEDS: Tolterodine Tartrate 2 MG CAP.SA PO (20:51)
[2022-10-20] MEDS: Divalproex (ER) 500 MG Tablet 1000 MG PO (20:51)
[2022-10-20] MEDS: Mirtazapine 30 MG Tablet PO (20:51)
[2022-10-20] MEDS: Atorvastatin Calcium 20 MG Tablet PO (20:51)
[2022-10-20] MEDS: Lacosamide 50 MG Tablet 150 MG PO (20:52)
[2022-10-21] MEDS: FINERENONE 20 MG TABLET 10 MG PO (05:36)
[2022-10-21] MEDS: Polyethylene Glycol 3350 17 GM PACKET PO ×2 (05:36→17:24)
[2022-10-21] MEDS: Pregabalin 50 MG Capsule 100 MG PO ×2 (05:36→17:24)
[2022-10-21] MEDS: Divalproex (ER) 500 MG Tablet PO (05:38)
[2022-10-21] MEDS: Lacosamide 100 MG Tablet PO (05:38)
[2022-10-21] MEDS: Iron Polysaccharide Complex 150 MG CAPSULE PO (05:39)
[2022-10-21] MEDS: LINAGLIPTIN 5 MG TABLET PO (05:39)
[2022-10-21] MEDS: Menthol/Lanolin/Calamine/Znox 113 GM Tube 1 APPLIC TOPICAL ×2 (05:40→17:24)
[2022-10-21 05:41] LABS: Absolute Neutrophil Count 1.9 X10^3/uL (2.0-7.7); Basophil# 0.03 X10^3/uL; Basophil% 0.5 % (0-1); Eosinophil# 0.19 X10^3/uL; Eosinophils% 3.3 % (0-5); Hematocrit 28.9 % (37-47); Hemoglobin 8.9 g/dL (12.0-15.0); Lymphocyte % 52.1 % (19-41); Mean Corp Hgb Conc 30.8 g/dL (32-36); Mean Corpuscular Volume 94.1 fL (81-99); Mean Platelet Vol. 9.9 fl (6.2-12.0); Monocyte# 0.57 X10^3/uL; Monocyte% 9.9 % (0-10); NRBC Flagged by Analyzer 0 % (0-5); Neutrophil # 1.89 X10^3/uL (2.7-7.7); Neutrophil % 32.8 % (47-70); POSITIVE COUNT YES; Platelet Count 94 K/mm3 (150-450); RBC Distribution Width CV 15.4 % (11.6-14.6); RBC Distribution Width SD 53.5 fl (35.1-43.9); Red Blood Count 3.07 M/mm3 (4.2-5.4); White Blood Count 5.8 K/mm3 (4.4-11.0)
[2022-10-21 06:48] LABS: Anion Gap 7 (5-15); BUN 21 mg/dL (7-18); Calcium,Total 8.8 mg/dL (8.5-10.1); Chloride 109 mmol/L (98-107); Creatinine, Serum 0.72 mg/dL (0.55-1.02); EST Glomerular Filtration Rate 84 mL/min (>60); Est Glom Filt Rate - Afr Amer 102 mL/min (>60); Glucose 130 mg/dL (74-106); Sodium Level 140 mmol/L (136-145)
[2022-10-21] MEDS: 0.9% Normal Saline 1,000 ML 75 ML IV ×2 (08:18→21:06)
[2022-10-21] MEDS: amLODIPine 10 MG Tablet PO (08:19)
[2022-10-21] MEDS: Ascorbic Acid 500 MG Tablet PO (08:19)
[2022-10-21 08:26] VITALS: BP 169/77; PULSE 63
[2022-10-21 10:45] VITALS: O2SAT 96
[2022-10-21 16:00] VITALS: BP 128/67; PULSE 60; RESP 16; TEMP 36.2; O2SAT 93
--- NOTE | 2022-10-21 16:39 | CASEMGMT ---
Social Work SW continues to keep IDT, pt and family updated on PAS results. Results have not been received yet. Spoke with /pt in room and spoke with Haven at [facility]. [facility] continues to hold pt's bed. Will continue to follow. Ana Mosley, SALES DEMONSTRATOR TERADATA ARCHITECT
[2022-10-21] MEDS: Senna/Docusate Sodium 1 Tablet 2 TABLET PO (17:24)
[2022-10-21] MEDS: Atorvastatin Calcium 20 MG Tablet PO (20:55)
[2022-10-21] MEDS: Divalproex (ER) 500 MG Tablet 1000 MG PO (20:56)
[2022-10-21] MEDS: Tolterodine Tartrate 2 MG CAP.SA PO (20:58)
[2022-10-21] MEDS: Mirtazapine 30 MG Tablet PO (20:58)
[2022-10-21] MEDS: Lacosamide 50 MG Tablet 150 MG PO (21:05)
[2022-10-22] MEDS: Menthol/Lanolin/Calamine/Znox 113 GM Tube 1 APPLIC TOPICAL (06:11)
[2022-10-22] MEDS: LINAGLIPTIN 5 MG TABLET PO (06:12)
[2022-10-22] MEDS: Iron Polysaccharide Complex 150 MG CAPSULE PO (06:12)
[2022-10-22] MEDS: Pregabalin 50 MG Capsule 100 MG PO ×2 (06:12→17:01)
[2022-10-22] MEDS: Senna/Docusate Sodium 1 Tablet 2 TABLET PO ×2 (06:13→16:57)
[2022-10-22] MEDS: Lacosamide 100 MG Tablet PO (06:13)
[2022-10-22] MEDS: Divalproex (ER) 500 MG Tablet PO (06:15)
[2022-10-22] MEDS: FINERENONE 20 MG TABLET 10 MG PO (06:15)
[2022-10-22] MEDS: Ascorbic Acid 500 MG Tablet PO (08:57)
[2022-10-22] MEDS: amLODIPine 10 MG Tablet PO (08:57)
[2022-10-22 09:05] VITALS: BP 146/76; PULSE 71
[2022-10-22 09:10] VITALS: PULSE 71; RESP 18; O2SAT 90
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
[2022-10-22] MEDS: 0.9% Normal Saline 1,000 ML 75 ML IV (10:32)
--- NOTE | 2022-10-22 10:48 | CASEMGMT ---
Addendum entered by Ana Mosley 10/22/22 13:36: Son is in [place] and requesting a later transport time. [facility] can transport at 5 pm. All parties updated. Addendum entered by Ana Mosley 10/22/22 12:53: Received PAS results and approved to transfer. SW updated pt/family, [facility] and [facility]. Cot transport through [facility] for 3 pm. Original Note: [facility] website checked repeatedly for PAS results. SW left message on [employer] voicemail requesting update, if possible. SW to continue to follow. Ana Mosley ,KIRTI QUINTANAW
[2022-10-22 13:47] VITALS: BP 157/76; PULSE 68; RESP 14; TEMP 36.2; O2SAT 95
--- NOTE | 2022-10-22 17:07 | NURSING ---
home meds given to to take.
[2022-10-22 18:49] VITALS: BP 157/76; PULSE 68; RESP 14; TEMP 36.2; O2SAT 95
== END 2022-10-22 15:10 | disposition intermediate care facility (04) | DRG 690 ==
PROVIDERS: Admitting Provider Family Medicine Geriatric Medicine; PCP Internal Medicine; Visit Provider Family Medicine Geriatric Medicine
DX: N39.0 Urinary tract infection, site not specified (principal); N17.9 Acute kidney failure, unspecified; R62.7 Adult failure to thrive; E11.22 Type 2 diabetes mellitus with diabetic chronic kidney disease; B96.20 Unspecified Escherichia coli [E. coli] as the cause of diseases classified elsewhere; D50.9 Iron deficiency anemia, unspecified; E11.42 Type 2 diabetes mellitus with diabetic polyneuropathy; G40.909 Epilepsy, unspecified, not intractable, without status epilepticus; I48.0 Paroxysmal atrial fibrillation; E78.5 Hyperlipidemia, unspecified; N18.9 Chronic kidney disease, unspecified; I12.9 Hypertensive chronic kidney disease with stage 1 through stage 4 chronic kidney disease, or unspecified chronic kidney disease; F41.9 Anxiety disorder, unspecified; E87.5 Hyperkalemia; E87.6 Hypokalemia; Z79.83 Long term (current) use of bisphosphonates; N32.81 Overactive bladder; Z79.899 Other long term (current) drug therapy; Z79.84 Long term (current) use of oral hypoglycemic drugs; Z79.890 Hormone replacement therapy; F32.A Depression, unspecified; M81.0 Age-related osteoporosis without current pathological fracture; G47.00 Insomnia, unspecified
CPT/HCPCS: 36415; 73610; 80048; 82962; 85014; 85018; 85025; 87426; 87811; 92526; 92610; 94640; 97110; 97116; 97162; 97166; 97530; 97535; 97802; J7030; J7040

== ENCOUNTER → 2022-10-02 | Outpatient (CLI) | payer MEDICARE, SELFPAY ==
--- NOTE | 2022-10-02 10:40 | VDUE_ITS ---
Reason For Study: Swelling Right Proximal Left Proximal Right subclavian vein is spontaneous, widely Left jugular vein is spontaneous, widely patent, phasic, with no intraluminal patent, phasic, with no intraluminal echogenicity noted. echogenicity noted. Left subclavian vein is spontaneous, widely patent, phasic, with no intraluminal echogenicity noted. Left Arm Left axillary vein is spontaneous, patent, phasic, competent, compressible and demonstrates augmentation. Left brachial vein is compressible. Left cephalic vein is compressible. Left basilic vein is compressible. Left Lower Arm Left radial vein is compressible. Left ulnar vein is compressible. VL/Venous Duplex US, Unilateral Interpretation Summary No evidence for acute deep venous thrombosis[left] upper extremity with patent and compressible cephalic and basilic veins. Normal flow patterns right subclavian vein Ordering Physician: Devin Valadez Chi Referring Physician: Hannah Riggs M.D. Performed By: Dax Lee RVT ???
== END | disposition home or self-care (01) ==
LOC: CVS 10:39
PROVIDERS: PCP Internal Medicine; Visit Provider Family Medicine Geriatric Medicine
DX: R22.32 Localized swelling, mass and lump, left upper limb (principal)
CPT/HCPCS: 93971

== ENCOUNTER 2022-10-15 21:29 | Emergency (ER) | payer MEDICARE, SELFPAY ==
[2022-10-15 21:31] VITALS: BP 100/46; PULSE 72; RESP 19; TEMP 36.4; O2SAT 94; BMI 31.6
--- NOTE | 2022-10-15 22:41 | RAD_ITS ---
INDICATION: pain EXAMINATION/TECHNIQUE: X-RAY - RIGHT XR Foot Min 3 Views 3 VIEWS COMPARISON: None. FINDINGS: SOFT TISSUES: No soft tissue swelling or gas. No radiopaque foreign body. BONES/JOINTS: No acute fracture or subluxation.. Normal alignment. Preservation of the joint space.. Plantar and dorsal calcaneus spurs are noted. RAD/Foot min 3 Views IMPRESSION: No acute bony injury. Electronically Signed: Martha Delgado MD at 23:53 EST ,
--- NOTE | 2022-10-15 22:41 | RAD_ITS ---
INDICATION: pain EXAMINATION/TECHNIQUE: X-RAY - RIGHT XR Ankle Min 3 Views 3 VIEWS COMPARISON: None. FINDINGS: SOFT TISSUES: No soft tissue swelling or gas. No radiopaque foreign body. BONES/JOINTS: No acute fracture or subluxation.. Normal alignment. Preservation of the joint space.. Plantar and dorsal calcaneal spurs are noted. RAD/Ankle min 3 Views IMPRESSION: No acute bony injury of the right ankle. Electronically Signed: Martha Delgado MD at 23:47 EST ,
--- NOTE | 2022-10-15 22:41 | RAD_ITS ---
INDICATION: cough EXAMINATION/TECHNIQUE: X-RAY - XR Chest 1 View COMPARISON: None. FINDINGS: LINES/DEVICES: Pacemaker on the left. LUNGS: Small left pleural effusion. MEDIASTINUM AND CARDIOVASCULAR STRUCTURES: Cardiac silhouette not enlarged. Central airways and mediastinal contour are unremarkable. BONES AND SOFT TISSUES: Unremarkable. RAD/Chest 1 View (Portable) IMPRESSION: Small left pleural effusion. Electronically Signed: Martha Delgado MD at 23:48 EST ,
[2022-10-15] MEDS: 0.9% Normal Saline 1,000 ML 999 ML IV (22:50)
[2022-10-15 23:24] LABS: Anion Gap 8 (5-15); BUN 35 mg/dL (7-18); BUN/Creat Ratio 30.4 RATIO (10-20); Calcium,Total 8.3 mg/dL (8.5-10.1); Chloride 105 mmol/L (98-107); Creatinine, Serum 1.15 mg/dL (0.55-1.02); EST Glomerular Filtration Rate 50 mL/min (>60); Est Glom Filt Rate - Afr Amer 60 mL/min (>60); Estimated Creatinine Clearance 34.35 ml/min; Glucose 124 mg/dL (74-106); Magnesium 2.5 mg/dL (1.6-2.6); Potassium 4.7 mmol/L (3.5-5.1); Sodium Level 140 mmol/L (136-145)
[2022-10-15 23:32] LABS: Absolute Neutrophil Count 2.7 X10^3/uL (2.0-7.7); Basophil# 0.02 X10^3/uL; Basophil% 0.3 % (0-1); Eosinophil# 0.02 X10^3/uL; Eosinophils% 0.3 % (0-5); Hematocrit 34.2 % (37-47); Hemoglobin 10.5 g/dL (12.0-15.0); Lymphocyte % 49.6 % (19-41); Mean Corp Hgb Conc 30.7 g/dL (32-36); Mean Corpuscular Hgb 29.2 pg (27.0-32.0); Mean Platelet Vol. 11.4 fl (6.2-12.0); Monocyte# 0.83 X10^3/uL; Monocyte% 11.4 % (0-10); NRBC Flagged by Analyzer 0.6 % (0-5); Neutrophil # 2.73 X10^3/uL (2.7-7.7); Neutrophil % 37.6 % (47-70); POSITIVE COUNT YES; Platelet Count 110 K/mm3 (150-450); RBC Distribution Width CV 16.3 % (11.6-14.6); RBC Distribution Width SD 56.8 fl (35.1-43.9); White Blood Count 7.3 K/mm3 (4.4-11.0)
[2022-10-15 23:52] LABS: Differential Indicated SCAN CRITERIA MET
[2022-10-15 23:53] VITALS: BP 109/63; PULSE 65; RESP 13; O2SAT 95
[2022-10-15 23:56] LABS: Anisocytosis 1+; Platelet Estimate SLT DEC (ADEQ)
--- NOTE | 2022-10-16 00:32 | EX.ED.DYSGE1 ---
HPI History of Present Illness Chief Complaint: Abn Labs Narrative Narrative: Patient is a 72-year-old female who was sent down from the transitional care unit with past medical history of diabetes hypertension hyperlipidemia and seizure disorder. 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 Family is present and states that they were informed that her potassium was elevated and she was given breathing treatments Kayexalate bicarb and insulin. They state her blood pressure was also slightly low and secondary to the abnormal labs and the low blood pressure she was sent to the ER for evaluation. Family states that she does have difficulty feeding herself because of her history of traumatic brain injury and they feel that she has had poor oral intake over the last few days [facility] Medical History Anxiety Atrial fibrillation Breakthrough seizure Chronic kidney disease (CKD) Dysuria Essential hypertension Former smoker HLD (hyperlipidemia) Hypertension Hypertensive emergency without congestive heart failure Hypertriglyceridemia Junctional rhythm Kidney disease Non-smoker Obesity Pacemaker Paroxysmal atrial fibrillation Right ankle sprain Seizure Seizures Septic shock Tachy-maurizio syndrome Type 2 diabetes mellitus Vaginal bleeding Home Medications oxybutynin chloride 5 mg tablet,extended release 24 hr 10 mg PO QHS bladder 05/20/17 [History Last Taken 11/18/21] alendronate 70 mg tablet 70 mg PO SA BONES 11/19/21 [History Last Taken 11/15/21] divalproex 500 mg tablet,extended release 24 hr (Depakote ER) 1,000 mg PO QHS Seizures 11/19/21 [History Last Taken 11/18/21] divalproex 500 mg tablet,extended release 24 hr (Depakote ER) 500 mg PO DAILY Seizures 11/19/21 [History Last Taken 11/19/21] lacosamide 100 mg tablet (Vimpat) 100 mg PO DAILY SEIZURES 11/19/21 [History Last Taken 11/19/21] sitagliptin phosphate 50 mg tablet (Januvia) 100 mg PO DAILY Diabetes 11/19/21 [History Last Taken 11/18/21] acetaminophen 500 mg tablet 1,000 mg PO Q6H PRN PRN Pain Score 1-10 #0 tabs 12/10/21 [Rx Last Taken Unknown] ramipril 10 mg capsule 10 mg PO DAILY BP #90 caps 01/27/22 [Rx Last Taken Unknown] mirtazapine 15 mg tablet 30 mg PO QHS Check with primary doctor 09/23/22 [History Last Taken Unknown] sennosides 8.6 mg-docusate sodium 50 mg tablet (Stool Softener-Stimulant Laxative) 2 tab PO BID PRN PRN Constipation #0 tabs 09/26/22 [Rx Last Taken Unknown] amlodipine 10 mg tablet 10 mg PO DAILY Check with primary doctor 09/29/22 [History Last Taken Unknown] atorvastatin 20 mg tablet 20 mg PO QHS Cholesterol 09/29/22 [History Last Taken Unknown] finerenone 20 mg tablet (Kerendia) 10 mg PO DAILY Check with primary doctor 09/29/22 [History Last Taken Unknown] finerenone 20 mg tablet (Kerendia) 20 mg PO DAILY Check with primary doctor 09/29/22 [History Last Taken Unknown] lacosamide 100 mg tablet (Vimpat) 150 mg PO QHS Seizures 09/29/22 [History Last Taken Unknown] levofloxacin 750 mg tablet 750 mg PO DAILY@0600 Antibiotic 09/29/22 [History Last Taken Unknown] pregabalin 100 mg capsule 100 mg PO BID Nerve Pain 5 days #10 caps 09/29/22 [Rx Last Taken Unknown] Allergy/AdvReac Type Severity Reaction Status Date / Time amoxicillin [From Augmentin] Allergy Rash Verified 10/16/22 00:23 clavulanic acid Allergy Rash Verified 10/16/22 00:23 [From Augmentin] escitalopram [From Lexapro] Allergy Rash Verified 10/16/22 00:23 shellfish derived Allergy Unknown Verified 10/16/22 00:23 hydroxychloroquine AdvReac Severe Unknown Verified 10/16/22 00:23 [From Plaquenil] house dust AdvReac NEEDS Verified 10/16/22 00:23 FOLLOW-UP perfume AdvReac Unknown Verified 10/16/22 00:23 pineapple AdvReac Rash Verified 10/16/22 00:23 quinine AdvReac Unknown Verified 10/16/22 00:23 strawberry AdvReac Rash Verified 10/16/22 00:23 Sulfa (Sulfonamide AdvReac Unknown Verified 10/16/22 00:23 Antibiotics) Family History Brother Heart disease Hx CABG Hypertension Diabetes Mother Hypertension Surgical History History of breast surgery History of hysterectomy History of permanent cardiac pacemaker placement (11/15/17) Social History household members: spouse Smoking Status: Never smoker alcohol intake: never substance use type: does not use caffeine: No what type of physical activity do you participate in: none seatbelt use: always do you feel safe at home: Yes ROS ROS ED Review of Systems ROS Unobtainable: due to mental condition EXAM Physical Exam Const Vital Signs: 10/15/22 21:31 10/15/22 21:35 10/15/22 23:53 Temperature 97.6 F L Temperature Source Temporal Pulse Rate 72 65 Respiratory Rate 19 H 13 Respiratory Effort Normal Respiratory Pattern Normal Blood Pressure 100/46 L 109/63 Blood Pressure Mean 64 78 Pulse Ox 94 95 Oxygen Delivery Method Nasal Cannula Nasal Cannula Oxygen Flow Rate (L/min) 2 2 10/16/22 01:04 Temperature Temperature Source Pulse Rate 65 Respiratory Rate 15 Respiratory Effort Respiratory Pattern Blood Pressure 98/63 Blood Pressure Mean Pulse Ox 97 Oxygen Delivery Method Oxygen Flow Rate (L/min) Positive well nourished and well developed General Appearance ED: well developed HEENT Reports dry mucous membranes Mouth ED: Yes dry mucous membranes Mouth: dry mucous membranes Eyes PERRL and EOMs intact bilaterally Neck supple Chest Wall palpation of chest normal Resp normal respiratory effort and clear to auscultation bilaterally Resp Narrative: No nasal flaring retractions tachypnea or accessory muscle use Cardio regular rate and regular rhythm GI non-tender and non-distended GI Narrative: Abdomen is soft not tender nondistended with hyperactive bowel sounds no voluntary guarding or rigidity no pulsatile mass. Auscultation: hyperactive bowel sounds Palpation: soft Narrative: Chronic indwelling Dickson catheter noted Extremity Extremity Narrative: No bony deformities or joint effusions noted. Patient does have pain with palpation of the dorsal aspect of her right foot without abrasions or ecchymosis noted. No overlying erythema or warmth either Neuro Neuro Narrative: Patient has chronic deficits secondary to history of traumatic brain injury but no new or acute findings Psych Psych Narrative: Patient has a flat affect Skin no rashes or lesions noted Skin Narrative: Skin turgor is increased General Skin Exam: Negative for jaundice MDM MDM MDM Narrative Medical decision making narrative: Patient arrived to the ER with stable vitals. Family reported the patient had been given majority of the hyperkalemia treatment and on the monitor her EKG appeared sinus rhythm. Therefore at this time I elected to simply recheck laboratory values to see if there has been improvement to the potassium level. Also with the report of hypotension there is concern she could be severely anemic or an acute kidney injury or be developing a secondary infection. Blood work showed no leukocytosis or left shift her labs also displayed no signs of acute kidney injury and her potassium is now normal at 4.7. Imaging study showed no acute trauma to the foot or ankle and a small pleural effusion in the left lung. However her procalcitonin is normal indicating that this truly is fluid and not a abnormal infection process. The patient was given a total of 1.5 L of fluid and her blood pressure remained normal. Therefore at this time with improvement of the hypotension with fluid no severe electrolyte abnormality or acute kidney injury changes or signs of infection she can return to the transitional care unit for further treatment. Lab Data Attestation: I reviewed the patient's lab results. Labs: Laboratory Results - last 24 hr 10/15/22 10/15/22 10/15/22 23:05 23:05 23:05 WBC 7.3 RBC 3.60 L Hgb 10.5 L Hct 34.2 L MCV 95.0 MCH 29.2 MCHC 30.7 L RDW Std Deviation 56.8 H RDW Coeff of Ernesto 16.3 H Plt Count 110 L MPV 11.4 Immature Gran % (Auto) 0.800 Neut % (Auto) 37.6 L Lymph % (Auto) 49.6 H I[place]quois % (Auto) 11.4 H Eos % (Auto) 0.3 Baso % (Auto) 0.3 Absolute Neuts (auto) 2.7 Absolute Lymphs (auto) 3.60 Nucleated RBC % 0.6 Platelet Estimate SLT DEC Anisocytosis 1+ Sodium 140 Potassium 4.7 Chloride 105 Carbon Dioxide 27.0 Anion Gap 8 BUN 35 H Creatinine 1.15 H Estim Creat Clear Calc 34.35 Est GFR (MDRD) Af Amer 60 Est GFR (MDRD) Non-Af 50 L BUN/Creatinine Ratio 30.4 H Glucose 124 H Calcium 8.3 L Magnesium 2.5 Procalcitonin < 0.04 Radiography Diagnostic Testing: Clinical Impression(s) from Imaging Studies Ankle X-Ray 10/15/22 22:41 IMPRESSION: No acute bony injury of the right ankle. Electronically Signed: Martha Delgado MD at 23:47 EST , Chest X-Ray 10/15/22 22:41 IMPRESSION: Small left pleural effusion. Electronically Signed: Martha Delgado MD at 23:48 EST , Foot X-Ray 10/15/22 22:41 IMPRESSION: No acute bony injury. Electronically Signed: Martha Delgado MD at 23:53 EST , 1 view chest x-ray as interpreted by the emergency medicine physician reveals a small left pleural effusion without acute infiltrate or pneumothorax X-ray of the right ankle and right foot as interpreted by the emergency medicine physician reveals no acute fracture or dislocation or foreign body. Discharge Plan Triage Chief Complaint: Abn Labs ED Provider: Juni Lott Dx/Rx/DC Orders Clinical Impression: Dehydration, Hyperkalemia, Type 2 diabetes mellitus, Debility Instructions: ED Dehydration (Adult), ED Hyperkalemia Prescriptions: No Action oxybutynin chloride 5 MG tablet 10 mg PO QHS Label Comments: bladder alendronate 70 mg Tablet 70 mg PO SA divalproex [Depakote ER] 500 mg Tablet Extended Release 24 Hr 500 mg PO DAILY divalproex [Depakote ER] 500 mg Tablet Extended Release 24 Hr 1,000 mg PO QHS Januvia 50 mg Tablet 100 mg PO DAILY Rx Instructions: with first meal lacosamide [Vimpat] 100 mg tablet 100 mg PO DAILY Label Comments: TAKE 1 TABLET BY MOUTH EVERY MORNING acetaminophen 500 mg Tablet 1,000 mg PO Q6H PRN PRN (Reason: Pain Score 1-10) Qty: 0 0RF mirtazapine 15 mg tablet 30 mg PO QHS sennosides-docusate sodium [Stool Softener-Stimulant Laxat] 8.6-50 mg Tablet 2 tab PO BID PRN PRN (Reason: Constipation) Qty: 0 0RF pregabalin 100 mg Capsule 100 mg PO BID 5 Days Qty: 10 0RF atorvastatin 20 mg tablet 20 mg PO QHS amlodipine 10 mg tablet 10 mg PO DAILY levofloxacin 750 mg tablet 750 mg PO DAILY@0600 lacosamide [Vimpat] 100 mg tablet 150 mg PO QHS Kerendia 20 mg tablet 20 mg PO DAILY Kerendia 20 mg tablet 10 mg PO DAILY ramipril 10 mg capsule 10 mg PO DAILY Qty: 90 3RF Primary Care Provider: Hannah Riggs Referrals: Hannah Riggs DO [Primary Care Provider] - Disposition Disposition: Home, Self Care Discharge Date/Time: 10/16/22 01:37
[2022-10-16 00:38] LABS: Procalcitonin < 0.04 ng/mL (0.00-0.09)
[2022-10-16 01:04] VITALS: BP 98/63; PULSE 65; RESP 15; O2SAT 97
== END 2022-10-16 01:37 | disposition home or self-care (01) ==
PROVIDERS: Emergency Provider Emergency Medicine; PCP Internal Medicine; Visit Provider Emergency Medicine
DX: E86.0 Dehydration (principal); E11.22 Type 2 diabetes mellitus with diabetic chronic kidney disease; E87.5 Hyperkalemia; N18.9 Chronic kidney disease, unspecified; I12.9 Hypertensive chronic kidney disease with stage 1 through stage 4 chronic kidney disease, or unspecified chronic kidney disease; E78.5 Hyperlipidemia, unspecified; I95.9 Hypotension, unspecified; Z87.820 Personal history of traumatic brain injury; Z20.822 Contact with and (suspected) exposure to COVID-19
CPT/HCPCS: 71045; 73610; 73630; 80048; 83735; 84145; 85025; 87428; 93005; 99284; J7040; A4216

== ENCOUNTER → 2022-10-23 | Outpatient (REF) | payer MEDICARE, SELFPAY ==
[2022-10-23 08:29] LABS: Hemoglobin 9.2 g/dL (12.0-15.0); Mean Corp Hgb Conc 30.7 g/dL (32-36); Mean Corpuscular Hgb 28.8 pg (27.0-32.0); Mean Platelet Vol. 9.9 fl (6.2-12.0); Platelet Count 109 K/mm3 (150-450); RBC Distribution Width CV 15.6 % (11.6-14.6); RBC Distribution Width SD 53.1 fl (35.1-43.9); Red Blood Count 3.19 M/mm3 (4.2-5.4); White Blood Count 6.5 K/mm3 (4.4-11.0)
[2022-10-23 08:47] LABS: ALB/GLOB Ratio 0.5 RATIO (0.9-2.4); AST(SGOT) 13 U/L (15-37); Alanine Aminotransfer ALT/SGPT < 6 U/L (13-56); Albumin, Serum 2.5 g/dL (3.2-5.0); Alkaline Phosphatase 43 U/L (45-117); Anion Gap 6 (5-15); BUN 22 mg/dL (7-18); BUN/Creat Ratio 31.9 RATIO (10-20); Chloride 107 mmol/L (98-107); Creatinine, Serum 0.69 mg/dL (0.55-1.02); EST Glomerular Filtration Rate 89 mL/min (>60); Est Glom Filt Rate - Afr Amer 108 mL/min (>60); Glucose 117 mg/dL (74-106); Potassium 4.4 mmol/L (3.5-5.1); Protein, Total 7.5 g/dL (6.4-8.2); Sodium Level 139 mmol/L (136-145)
== END ==
LOC: OLS.ACH 05:00
PROVIDERS: PCP Internal Medicine; Visit Provider Internal Medicine
DX: D64.9 Anemia, unspecified (principal); R62.7 Adult failure to thrive
CPT/HCPCS: 36415; 80053; 85027

== ENCOUNTER → 2022-10-28 | Outpatient (REF) | payer MEDICARE, SELFPAY ==
[2022-10-28 09:43] LABS: Valproic Acid (Depakene) Level 61 ug/mL (50-100)
== END ==
LOC: OLS.ACH 05:00
PROVIDERS: PCP Internal Medicine; Visit Provider Internal Medicine
DX: G40.219 Localization-related (focal) (partial) symptomatic epilepsy and epileptic syndromes with complex partial seizures, intractable, without status epilepticus (principal); Z79.899 Other long term (current) drug therapy
CPT/HCPCS: 36415; 80164

== ENCOUNTER → 2022-10-29 | Outpatient (REF) | payer MEDICARE, SELFPAY ==
[2022-10-29 09:48] LABS: Hematocrit 27.7 % (37-47); Hemoglobin 8.4 g/dL (12.0-15.0); Mean Corp Hgb Conc 30.3 g/dL (32-36); Mean Corpuscular Hgb 29.1 pg (27.0-32.0); Mean Corpuscular Volume 95.8 fL (81-99); Mean Platelet Vol. 9.8 fl (6.2-12.0); Platelet Count 122 K/mm3 (150-450); RBC Distribution Width CV 15.8 % (11.6-14.6); RBC Distribution Width SD 56.1 fl (35.1-43.9); Red Blood Count 2.89 M/mm3 (4.2-5.4); White Blood Count 4.2 K/mm3 (4.4-11.0)
[2022-10-29 10:04] LABS: Valproic Acid (Depakene) Level 74 ug/mL (50-100)
[2022-10-29 10:06] LABS: ALB/GLOB Ratio 0.5 RATIO (0.9-2.4); AST(SGOT) 26 U/L (15-37); Alanine Aminotransfer ALT/SGPT < 6 U/L (13-56); Albumin, Serum 2.4 g/dL (3.2-5.0); Alkaline Phosphatase 49 U/L (45-117); Anion Gap 9 (5-15); BUN 30 mg/dL (7-18); Calcium,Total 8.6 mg/dL (8.5-10.1); Chloride 106 mmol/L (98-107); Creatinine, Serum 0.83 mg/dL (0.55-1.02); EST Glomerular Filtration Rate 72 mL/min (>60); Est Glom Filt Rate - Afr Amer 87 mL/min (>60); Globulin 4.9 g/dL (2.2-4.2); Glucose 153 mg/dL (74-106); Potassium 4.4 mmol/L (3.5-5.1); Protein, Total 7.3 g/dL (6.4-8.2); Sodium Level 143 mmol/L (136-145)
[2022-10-29 10:29] LABS: Hemoglobin A1c 5.8 % (3.8-5.6)
== END ==
LOC: OLS.ACH 04:00
PROVIDERS: PCP Internal Medicine; Referring Provider Internal Medicine; Visit Provider Internal Medicine
DX: E11.42 Type 2 diabetes mellitus with diabetic polyneuropathy (principal); G40.219 Localization-related (focal) (partial) symptomatic epilepsy and epileptic syndromes with complex partial seizures, intractable, without status epilepticus; D64.9 Anemia, unspecified
CPT/HCPCS: 36415; 80053; 80164; 83036; 85027

== ENCOUNTER → 2022-11-02 | Outpatient (REF) | payer MEDICARE, SELFPAY ==
[2022-11-02 08:51] LABS: Hematocrit 30.1 % (37-47)
[2022-11-02 09:03] LABS: Vitamin B12 442 pg/mL (211-911)
[2022-11-02 09:17] LABS: Ferritin 454 ng/mL (8-252); Iron 81 ug/dL (50-170); Iron Binding Capacity,Total 322 ug/dL (250-450); PERCENT IRON SATURATION 25.2 % (15.0-55.0)
== END ==
LOC: OLS.ACH 05:00
PROVIDERS: PCP Internal Medicine; Visit Provider Internal Medicine
DX: I69.354 Hemiplegia and hemiparesis following cerebral infarction affecting left non-dominant side (principal); I49.8 Other specified cardiac arrhythmias
CPT/HCPCS: 36415; 82607; 82728; 82746; 83540; 83550; 85014; 85018

== ENCOUNTER → 2022-11-06 | Outpatient (REF) | payer MEDICARE, SELFPAY ==
[2022-11-06 11:32] LABS: Absolute Lymphocyte Count 1.94 X10^3/uL (0.83-4.51); Absolute Neutrophil Count 3.5 X10^3/uL (2.0-7.7); Basophil# 0.04 X10^3/uL; Basophil% 0.6 % (0-1); Eosinophil# 0.07 X10^3/uL; Eosinophils% 1.1 % (0-5); Hematocrit 32.6 % (37-47); Hemoglobin 9.8 g/dL (12.0-15.0); Lymphocyte # 1.94 X10^3/ul (0.83-4.51); Lymphocyte % 30.2 % (19-41); Mean Corp Hgb Conc 30.1 g/dL (32-36); Mean Corpuscular Hgb 29.1 pg (27.0-32.0); Mean Corpuscular Volume 96.7 fL (81-99); Mean Platelet Vol. 9.5 fl (6.2-12.0); Monocyte# 0.67 X10^3/uL; Monocyte% 10.4 % (0-10); NRBC Flagged by Analyzer 0.3 % (0-5); Neutrophil # 3.52 X10^3/uL (2.7-7.7); Neutrophil % 54.7 % (47-70); Platelet Count 174 K/mm3 (150-450); RBC Distribution Width CV 15.7 % (11.6-14.6); RBC Distribution Width SD 55.3 fl (35.1-43.9); Red Blood Count 3.37 M/mm3 (4.2-5.4); White Blood Count 6.4 K/mm3 (4.4-11.0)
[2022-11-06 11:47] LABS: ALB/GLOB Ratio 0.6 RATIO (0.9-2.4); AST(SGOT) 21 U/L (15-37); Alanine Aminotransfer ALT/SGPT < 6 U/L (13-56); Albumin, Serum 3.1 g/dL (3.2-5.0); Alkaline Phosphatase 51 U/L (45-117); Anion Gap 7 (5-15); BUN 24 mg/dL (7-18); BUN/Creat Ratio 28.1 RATIO (10-20); Calcium,Total 9.3 mg/dL (8.5-10.1); Chloride 106 mmol/L (98-107); Creatinine, Serum 0.85 mg/dL (0.55-1.02); EST Glomerular Filtration Rate 70 mL/min (>60); Est Glom Filt Rate - Afr Amer 84 mL/min (>60); Globulin 5.5 g/dL (2.2-4.2); Glucose 248 mg/dL (74-106); Potassium 5.7 mmol/L (3.5-5.1); Protein, Total 8.6 g/dL (6.4-8.2); Sodium Level 138 mmol/L (136-145)
== END ==
LOC: OLS.ACH 11:00
PROVIDERS: PCP Internal Medicine; Visit Provider Internal Medicine
DX: E11.42 Type 2 diabetes mellitus with diabetic polyneuropathy (principal); D64.9 Anemia, unspecified
CPT/HCPCS: 36415; 80053; 85025

== ENCOUNTER → 2022-11-09 | Outpatient (REF) | payer MEDICARE, SELFPAY ==
[2022-11-09 09:08] LABS: Potassium 5.4 mmol/L (3.5-5.1)
== END ==
LOC: OLS.ACH 05:00
PROVIDERS: PCP Internal Medicine; Visit Provider Internal Medicine
DX: N18.9 Chronic kidney disease, unspecified (principal)
CPT/HCPCS: 36415; 84132

== ENCOUNTER 2022-11-13 13:56 | Inpatient (IN) | payer MEDICARE, SELFPAY ==
[2022-11-13] VITALS (12 sets, daily range): BP systolic 109–176; BP diastolic 63–110; PULSE 60–100; RESP 12–18; TEMP 36.4–38.9; O2SAT 93–98; BMI 29.2; BMI 28.9
--- NOTE | 2022-11-13 14:44 | EKG12_ITS ---
Test Reason : Blood Pressure : / mmHG Vent. Rate : 060 BPM Atrial Rate : 060 BPM P-R Int : 250 ms QRS Dur : 102 ms QT Int : 402 ms P-R-T Axes : 000 -01 -12 degrees QTc Int : 402 ms Atrial-paced rhythm with prolonged AV conduction Nonspecific T wave abnormality Abnormal ECG Confirmed by DOT LAMAR, TASHIA ([id number]), international editorial producer CHRIS REYES ([id number]) on 11/16/2022 12:23:51 P M Referred By: ESTRELLA Confirmed By:ROBERT CHRIS MD
--- NOTE | 2022-11-13 14:47 | EX.ED.DYSGE1 ---
HPI History of Present Illness Chief Complaint: Abn Labs Informant: patient, family and SNF Narrative Narrative: Patient presents from ECF secondary to high potassium and abnormal EKG. Per family at bedside her potassium has been an issue recently. It appears that it was 6.2 this morning and she received Kayexalate at 924 this morning. EKG was obtained around 11 AM and was read out as junctional rhythm. I do not see QRS widening or peaked T waves. Patient has no significant complaints at this time. [facility] Medical History Anxiety Atrial fibrillation Breakthrough seizure Chronic kidney disease (CKD) Dysuria Essential hypertension Former smoker HLD (hyperlipidemia) Hypertension Hypertensive emergency without congestive heart failure Hypertriglyceridemia Junctional rhythm Kidney disease Non-smoker Obesity Pacemaker Paroxysmal atrial fibrillation Right ankle sprain Seizure Seizures Septic shock Tachy-maurizio syndrome Type 2 diabetes mellitus Vaginal bleeding Home Medications oxybutynin chloride 5 mg tablet,extended release 24 hr 10 mg PO QHS bladder 05/20/17 [History Last Taken 11/18/21] alendronate 70 mg tablet 70 mg PO SA BONES 11/19/21 [History Last Taken 11/15/21] divalproex 500 mg tablet,extended release 24 hr (Depakote ER) 1,000 mg PO QHS Seizures 11/19/21 [History Last Taken 11/18/21] divalproex 500 mg tablet,extended release 24 hr (Depakote ER) 500 mg PO DAILY Seizures 11/19/21 [History Last Taken 11/19/21] lacosamide 100 mg tablet (Vimpat) 100 mg PO DAILY SEIZURES 11/19/21 [History Last Taken 11/19/21] sitagliptin phosphate 50 mg tablet (Januvia) 100 mg PO DAILY Diabetes 11/19/21 [History Last Taken 11/18/21] acetaminophen 500 mg tablet 1,000 mg PO Q6H PRN PRN Pain Score 1-10 #0 tabs 12/10/21 [Rx Last Taken Unknown] mirtazapine 15 mg tablet 30 mg PO QHS Check with primary doctor 09/23/22 [History Last Taken Unknown] amlodipine 10 mg tablet 10 mg PO DAILY Check with primary doctor 09/29/22 [History Last Taken Unknown] atorvastatin 20 mg tablet 20 mg PO QHS Cholesterol 09/29/22 [History Last Taken Unknown] lacosamide 100 mg tablet (Vimpat) 150 mg PO QHS Seizures 09/29/22 [History Last Taken Unknown] pregabalin 100 mg capsule 100 mg PO BID Nerve Pain 5 days #10 caps 09/29/22 [Rx Last Taken Unknown] ascorbic acid (vitamin C) 500 mg tablet 500 mg PO BREAKFAST #0 tabs 10/16/22 [Rx Last Taken Unknown] menthol 0.44 %-zinc oxide 20.6 % topical ointment (Calmoseptine) 1 applic topical BID #0 grams 10/16/22 [Rx Last Taken Unknown] polyethylene glycol 3350 17 gram oral powder packet 17 g PO BID #0 ea 10/16/22 [Rx Last Taken Unknown] polysaccharide iron complex 150 mg iron capsule (Ferrex) 150 mg PO DAILY #0 caps 10/16/22 [Rx Last Taken Unknown] sennosides 8.6 mg-docusate sodium 50 mg tablet (Stool Softener-Stimulant Laxative) 2 tab PO BID #0 tabs 10/16/22 [Rx Last Taken Unknown] lacosamide 50 mg tablet (Vimpat) 150 mg PO QHS 3 days #9 tabs 10/22/22 [Rx Last Taken Unknown] pregabalin 50 mg capsule 100 mg PO BID 3 days #12 caps 10/22/22 [Rx Last Taken Unknown] Allergy/AdvReac Type Severity Reaction Status Date / Time amoxicillin [From Augmentin] Allergy Rash Verified 11/13/22 14:01 clavulanic acid Allergy Rash Verified 11/13/22 14:01 [From Augmentin] escitalopram [From Lexapro] Allergy Rash Verified 11/13/22 14:01 shellfish derived Allergy Unknown Verified 11/13/22 14:01 hydroxychloroquine AdvReac Severe Unknown Verified 11/13/22 14:01 [From Plaquenil] house dust AdvReac NEEDS Verified 11/13/22 14:01 FOLLOW-UP perfume AdvReac Unknown Verified 11/13/22 14:01 pineapple AdvReac Rash Verified 11/13/22 14:01 quinine AdvReac Unknown Verified 11/13/22 14:01 strawberry AdvReac Rash Verified 11/13/22 14:01 Sulfa (Sulfonamide AdvReac Unknown Verified 11/13/22 14:01 Antibiotics) Family History Brother Heart disease Hx CABG Hypertension Diabetes Mother Hypertension Surgical History History of breast surgery History of hysterectomy History of permanent cardiac pacemaker placement (11/15/17) Social History household members: spouse Smoking Status: Never smoker alcohol intake: never substance use type: does not use caffeine: No what type of physical activity do you participate in: none seatbelt use: always do you feel safe at home: Yes ROS ROS ED Constitutional Constitutional ED: Denies chills or fever(s) Eyes Eyes: Denies change in vision or discharge from eye(s) ENT ENT ED: Denies discharge from eye(s), rhinorrhea or sore throat Cardiovascular Cardiovascular: Denies chest pain or palpitations Respiratory/Chest Respiratory/Chest: Denies cough or dyspnea Gastrointestinal Gastrointestinal: Denies abdominal pain, diarrhea, nausea or vomiting Genitourinary Genitourinary ED: Denies dysuria Musculoskeletal Musculoskeletal: Denies back pain or extremity pain Integumentary Denies Abrasions or rash Neurologic Neurologic: Denies headache(s) or weakness Psychiatric Psychiatric: Denies anxiety or depression Allergic/Immunologic Allergic/Immunologic ED: Denies lip swelling or urticaria EXAM Physical Exam Const Vital Signs: 11/13/22 13:57 11/13/22 14:40 11/13/22 14:41 Temperature 97.6 F L Temperature Source Temporal Pulse Rate 60 60 Respiratory Rate 16 14 Respiratory Effort Normal Non-Labored Respiratory Pattern Normal Blood Pressure 163/70 H 157/68 H Blood Pressure Mean 101 97 Pulse Ox 96 94 Oxygen Delivery Method Room Air Room Air 11/13/22 15:03 Temperature Temperature Source Pulse Rate 60 Respiratory Rate 12 Respiratory Effort Respiratory Pattern Blood Pressure 163/65 H Blood Pressure Mean 97 Pulse Ox 94 Oxygen Delivery Method Room Air Positive well nourished and well developed General Appearance ED: well developed HEENT HEENT Narrative: Hematoma left forehead with surrounding old appearing bruises. Eyes EOMs intact bilaterally Neck no lymphadenopathy Resp normal respiratory effort and clear to auscultation bilaterally Cardio regular rate and regular rhythm GI normal to inspection, nondistended, normoactive bowel sounds and non-tender Extremity normal to inspection Psych mental status grossly normal MDM MDM MDM Narrative Medical decision making narrative: Patient placed on monitor technician. EKG obtained given her hyperkalemia. IV fluids ordered. Insert blood work History & Record Review Discussion w/independent historian: Patient and Family Additional record(s) reviewed:: Prior inpatient record Lab Data Attestation: I reviewed the patient's lab results. Labs: Laboratory Results - last 24 hr 11/13/22 11/13/22 15:50 15:50 WBC 5.6 RBC 3.67 L Hgb 11.0 L Hct 35.4 L MCV 96.5 MCH 30.0 MCHC 31.1 L RDW Std Deviation 57.2 H RDW Coeff of Ernesto 15.9 H Plt Count 148 L MPV 10.1 Immature Gran % (Auto) 0.900 Neut % (Auto) 46.9 L Lymph % (Auto) 40.5 [place] % (Auto) 10.4 H Eos % (Auto) 0.9 Baso % (Auto) 0.4 Absolute Neuts (auto) 2.6 Absolute Lymphs (auto) 2.25 Nucleated RBC % 0 Sodium 138 Potassium 6.2 H* Chloride 105 Carbon Dioxide 28.0 Anion Gap 5 BUN 33 H Creatinine 1.07 H Estim Creat Clear Calc 38.69 Est GFR (MDRD) Af Amer 65 Est GFR (MDRD) Non-Af 54 L BUN/Creatinine Ratio 30.8 H Glucose 191 H Calcium 9.4 EKG Initial EKG: Attestation: I personally reviewed and interpreted this EKG as follows: Interpretation: - (Paced rhythm at 60 bpm. No significant T wave changes or QRS widening.) Treatment and Re-Evaluation :: Patient's potassium was 6.2 earlier this morning and she was given Kayexalate at her ECF. Repeat labs here reveal potassium 6.2. BUN is 33 and creatinine is 1.07. Glucose is 191. CBC is unremarkable. Patient will be given albuterol along with insulin and glucose here. I will speak with hospitalist regarding admission. EKG reveals no significant changes consistent with hyperkalemia. Discharge Plan Triage Chief Complaint: Abn Labs ED Provider: Francisca Garcia Dx/Rx/DC Orders Clinical Impression: Hyperkalemia Prescriptions: No Action oxybutynin chloride 5 MG tablet 10 mg PO QHS Label Comments: bladder alendronate 70 mg Tablet 70 mg PO SA divalproex [Depakote ER] 500 mg Tablet Extended Release 24 Hr 500 mg PO DAILY divalproex [Depakote ER] 500 mg Tablet Extended Release 24 Hr 1,000 mg PO QHS Januvia 50 mg Tablet 100 mg PO DAILY Rx Instructions: with first meal lacosamide [Vimpat] 100 mg tablet 100 mg PO DAILY Label Comments: TAKE 1 TABLET BY MOUTH EVERY MORNING acetaminophen 500 mg Tablet 1,000 mg PO Q6H PRN PRN (Reason: Pain Score 1-10) Qty: 0 0RF mirtazapine 15 mg tablet 30 mg PO QHS pregabalin 100 mg Capsule 100 mg PO BID 5 Days Qty: 10 0RF atorvastatin 20 mg tablet 20 mg PO QHS amlodipine 10 mg tablet 10 mg PO DAILY lacosamide [Vimpat] 100 mg tablet 150 mg PO QHS sennosides-docusate sodium [Stool Softener-Stimulant Laxat] 8.6-50 mg Tablet 2 tab PO BID Qty: 0 0RF ascorbic acid (vitamin C) 500 mg Tablet 500 mg PO BREAKFAST Qty: 0 0RF polysaccharide iron complex [Ferrex 150] 150 mg iron Capsule 150 mg PO DAILY Qty: 0 0RF menthol-zinc oxide [Calmoseptine] 0.44-20.6 % Ointment 1 applic topical BID Qty: 0 0RF Protocol: *Topical Application Instructions APPLICATION INSTRUCTIONS: apply to nicola buttocks/coccyx polyethylene glycol 3350 17 gram Powder In Packet 17 g PO BID Qty: 0 0RF pregabalin 50 mg Capsule 100 mg PO BID 3 Days Qty: 12 0RF lacosamide [Vimpat] 50 mg Tablet 150 mg PO QHS 3 Days Qty: 9 0RF Primary Care Provider: Hannah Riggs Referrals: Hannah Riggs DO [Primary Care Provider] - Disposition Disposition: Acute Care Hospital [facility] [place]
[2022-11-13] MEDS: 0.9% Normal Saline 1,000 ML 150 ML IV (15:58)
[2022-11-13 16:03] LABS: Absolute Lymphocyte Count 2.25 X10^3/uL (0.83-4.51); Absolute Neutrophil Count 2.6 X10^3/uL (2.0-7.7); Basophil# 0.02 X10^3/uL; Basophil% 0.4 % (0-1); Eosinophil# 0.05 X10^3/uL; Eosinophils% 0.9 % (0-5); Hematocrit 35.4 % (37-47); Lymphocyte # 2.25 X10^3/ul (0.83-4.51); Lymphocyte % 40.5 % (19-41); Mean Corp Hgb Conc 31.1 g/dL (32-36); Mean Corpuscular Volume 96.5 fL (81-99); Mean Platelet Vol. 10.1 fl (6.2-12.0); Monocyte# 0.58 X10^3/uL; Monocyte% 10.4 % (0-10); NRBC Flagged by Analyzer 0 % (0-5); Neutrophil # 2.61 X10^3/uL (2.7-7.7); Neutrophil % 46.9 % (47-70); Platelet Count 148 K/mm3 (150-450); RBC Distribution Width CV 15.9 % (11.6-14.6); RBC Distribution Width SD 57.2 fl (35.1-43.9); Red Blood Count 3.67 M/mm3 (4.2-5.4); White Blood Count 5.6 K/mm3 (4.4-11.0)
[2022-11-13 16:38] LABS: Anion Gap 5 (5-15); BUN 33 mg/dL (7-18); BUN/Creat Ratio 30.8 RATIO (10-20); Calcium,Total 9.4 mg/dL (8.5-10.1); Chloride 105 mmol/L (98-107); Creatinine, Serum 1.07 mg/dL (0.55-1.02); EST Glomerular Filtration Rate 54 mL/min (>60); Est Glom Filt Rate - Afr Amer 65 mL/min (>60); Estimated Creatinine Clearance 38.69 ml/min; Glucose 191 mg/dL (74-106); Potassium 6.2 mmol/L (3.5-5.1); Sodium Level 138 mmol/L (136-145)
--- NOTE | 2022-11-13 17:17 | PCM.HP.STD ---
HPI - General General Date of Admission: 11/13/22 Date of Service: 11/13/22 Chief Complaint: Abnormal labs HPI Narrative HERMINIA CARDONA, is a 72 F with a history of type 2 diabetes, CKD stage IIIa, seizure disorder, recent diagnosis of Parkinson's disease who presented to [facility] 11/13/2022 from the [facility] home where she is currently residing for rehab due to elevated potassium. She was given a dose of Kayexalate and they were concerned due to a potassium of 6.2 when she was sent to the ED. In the ED potassium was 6.2 with a BUN of 33 and a creatinine of 1.07 with most recent creatinine 0.85, hemoglobin 11, white count within normal limits. Blood pressure 163/70 with heart rate of 60 paced, respiratory rate 16 and 96% on room air. She was given fluids, albuterol, insulin and dextrose and hospitalist consulted for admission for hyperkalemia. Patient seen with family member at bedside and they report she has no new complaints but had routine labs that showed the hyperkalemia. ROS negative aside for fall 2 weeks ago with some bruising on the left side of her face. Family member at bedside did endorse diagnosis of Parkinson's within the past several weeks as well as resumption of metformin this past week. [facility] Medical History Anxiety Atrial fibrillation Breakthrough seizure Chronic kidney disease (CKD) Dysuria Essential hypertension Former smoker HLD (hyperlipidemia) Hypertension Hypertensive emergency without congestive heart failure Hypertriglyceridemia Junctional rhythm Kidney disease Non-smoker Obesity Pacemaker Paroxysmal atrial fibrillation Right ankle sprain Seizure Seizures Septic shock Tachy-maurizio syndrome Type 2 diabetes mellitus Vaginal bleeding Home Medications oxybutynin chloride 5 mg tablet,extended release 24 hr 10 mg PO QHS bladder 05/20/17 [History Last Taken 11/18/21] alendronate 70 mg tablet 70 mg PO SA BONES 11/19/21 [History Last Taken 11/15/21] divalproex 500 mg tablet,extended release 24 hr (Depakote ER) 1,000 mg PO QHS Seizures 11/19/21 [History Last Taken 11/18/21] divalproex 500 mg tablet,extended release 24 hr (Depakote ER) 500 mg PO DAILY Seizures 11/19/21 [History Last Taken 11/19/21] lacosamide 100 mg tablet (Vimpat) 100 mg PO DAILY SEIZURES 11/19/21 [History Last Taken 11/19/21] sitagliptin phosphate 50 mg tablet (Januvia) 100 mg PO DAILY Diabetes 11/19/21 [History Last Taken 11/18/21] acetaminophen 500 mg tablet 1,000 mg PO Q6H PRN PRN Pain Score 1-10 #0 tabs 12/10/21 [Rx Last Taken Unknown] mirtazapine 15 mg tablet 30 mg PO QHS Check with primary doctor 09/23/22 [History Last Taken Unknown] amlodipine 10 mg tablet 10 mg PO DAILY Check with primary doctor 09/29/22 [History Last Taken Unknown] atorvastatin 20 mg tablet 20 mg PO QHS Cholesterol 09/29/22 [History Last Taken Unknown] lacosamide 100 mg tablet (Vimpat) 150 mg PO QHS Seizures 09/29/22 [History Last Taken Unknown] pregabalin 100 mg capsule 100 mg PO BID Nerve Pain 5 days #10 caps 09/29/22 [Rx Last Taken Unknown] ascorbic acid (vitamin C) 500 mg tablet 500 mg PO BREAKFAST #0 tabs 10/16/22 [Rx Last Taken Unknown] menthol 0.44 %-zinc oxide 20.6 % topical ointment (Calmoseptine) 1 applic topical BID #0 grams 10/16/22 [Rx Last Taken Unknown] polyethylene glycol 3350 17 gram oral powder packet 17 g PO BID #0 ea 10/16/22 [Rx Last Taken Unknown] polysaccharide iron complex 150 mg iron capsule (Ferrex) 150 mg PO DAILY #0 caps 10/16/22 [Rx Last Taken Unknown] sennosides 8.6 mg-docusate sodium 50 mg tablet (Stool Softener-Stimulant Laxative) 2 tab PO BID #0 tabs 10/16/22 [Rx Last Taken Unknown] lacosamide 50 mg tablet (Vimpat) 150 mg PO QHS 3 days #9 tabs 10/22/22 [Rx Last Taken Unknown] pregabalin 50 mg capsule 100 mg PO BID 3 days #12 caps 10/22/22 [Rx Last Taken Unknown] Allergy/AdvReac Type Severity Reaction Status Date / Time amoxicillin [From Augmentin] Allergy Rash Verified 11/13/22 14:01 clavulanic acid Allergy Rash Verified 11/13/22 14:01 [From Augmentin] escitalopram [From Lexapro] Allergy Rash Verified 11/13/22 14:01 shellfish derived Allergy Unknown Verified 11/13/22 14:01 hydroxychloroquine AdvReac Severe Unknown Verified 11/13/22 14:01 [From Plaquenil] house dust AdvReac NEEDS Verified 11/13/22 14:01 FOLLOW-UP perfume AdvReac Unknown Verified 11/13/22 14:01 pineapple AdvReac Rash Verified 11/13/22 14:01 quinine AdvReac Unknown Verified 11/13/22 14:01 strawberry AdvReac Rash Verified 11/13/22 14:01 Sulfa (Sulfonamide AdvReac Unknown Verified 11/13/22 14:01 Antibiotics) Family History Brother Heart disease Hx CABG Hypertension Diabetes Mother Hypertension Surgical History History of breast surgery History of hysterectomy History of permanent cardiac pacemaker placement (11/15/17) Social History household members: spouse Smoking Status: Never smoker alcohol intake: never substance use type: does not use caffeine: No what type of physical activity do you participate in: none seatbelt use: always do you feel safe at home: Yes ROS ROS Narrative General: Denies fever/chills HENT: Denies headache, denies stuffy nose, denies sore throat EYES: Denies changes in vision Resp: Denies cough, denies shortness of breath Cardiac: Denies chest pain GI: Denies abdominal pain, denies changes in bowel, denies nausea/vomiting : Denies changes in urination Extremity: Denies swelling MSK: Denies weakness Neuro: Denies any numbness/tingling Heme: Denies any bleeding, had some facial bruising Skin: Denies rashes Psychiatric: No complaints voiced Vital Signs Vital Signs Vital Signs: 11/13/22 13:57 11/13/22 14:40 11/13/22 14:41 Temperature 97.6 F L Temperature Source Temporal Pulse Rate 60 60 Respiratory Rate 16 14 Respiratory Effort Normal Non-Labored Respiratory Pattern Normal Blood Pressure 163/70 H 157/68 H Blood Pressure Mean 101 97 Pulse Ox 96 94 Oxygen Delivery Method Room Air Room Air 11/13/22 15:03 Temperature Temperature Source Pulse Rate 60 Respiratory Rate 12 Respiratory Effort Respiratory Pattern Blood Pressure 163/65 H Blood Pressure Mean 97 Pulse Ox 94 Oxygen Delivery Method Room Air Weight Weight: 72.7 kg Body Mass Index (BMI) 29.2 Physical Exam Narrative General: Alert, oriented, no apparent distress HEENT: Atraumatic, normocephalic Eyes: Anicteric, normal conjunctiva, extraocular movements grossly intact Neck: Supple Respiratory: Clear to auscultation bilaterally, normal respiratory effort Cardiovascular: Regular rate and rhythm GI: Soft, nontender, nondistended Extremities: No edema Musculoskeletal: Moving all extremities Neuro: No overt focal neurological deficits Skin: Some bruising over left forehead and left eye that appears to be healing Psych: Cooperative Results Lab / Micro Data Result Diagrams: 11/13/22 15:50 11/13/22 15:50 Labs: Laboratory Results - last 24 hr 11/13/22 15:50: WBC 5.6, RBC 3.67 L, Hgb 11.0 L, Hct 35.4 L, MCV 96.5, MCH 30.0, MCHC 31.1 L, RDW Std Deviation 57.2 H, RDW Coeff of Ernesto 15.9 H, Plt Count 148 L, MPV 10.1, Immature Gran % (Auto) 0.900, Neut % (Auto) 46.9 L, Lymph % (Auto) 40.5, [place] % (Auto) 10.4 H, Eos % (Auto) 0.9, Baso % (Auto) 0.4, Absolute Neuts (auto) 2.6, Absolute Lymphs (auto) 2.25, Nucleated RBC % 0 11/13/22 15:50: Sodium 138, Potassium 6.2 H*, Chloride 105, Carbon Dioxide 28.0, Anion Gap 5, BUN 33 H, Creatinine 1.07 H, Estim Creat Clear Calc 38.69, Est GFR (MDRD) Af Amer 65, Est GFR (MDRD) Non-Af 54 L, BUN/Creatinine Ratio 30.8 H, Glucose 191 H, Calcium 9.4 Assessment & Plan Assessment/Plan (1) Hyperkalemia: PLAN: Plan #Hyperkalemia -Received Kayexalate, has now received 1 L of fluids, albuterol, glucose and insulin -We will give calcium gluconate 9 EKG is atrial paced with some nonspecific T wave inversions which was similar to earlier EKG, no peaked T waves -Admit to telemetry -Will continue fluids -Routine potassium checks -We will order magnesium and urine lytes with potassium -hold amlodipine #CKD stage IIIa with superimposed renal insufficiency -Does not meet full criteria for CHETNA but does have slight bump in BUN and creatinine and appears somewhat hemoconcentrated, will continue hydration -Avoid nephrotoxic agents -Daily weights and I's and O's #Recent diagnosis of Parkinson's disease -We will need to clarify medications and see if any may contribute to hyperkalemia #Seizure disorder -Continue home medications -We will order Depakote level #Type 2 diabetes mellitus -Hold metformin and januvia, glucose checks and sliding scale insulin ordered #Paroxysmal atrial fibrillation/history of permanent pacemaker in 2018/hypertension #DVT ppx: SCDs as to not worsen hyperkalemia Lavern Hirsch MD Time spent in the patient's overall evaluation,decision-making process, review of diagnostic data, adjustment of management, discussion with other providers, nursing nursing and ancillary staff involved in patient's care documentation, 60 minutes Charges/Coding Visit Charges Inpatient E&M: 71734 Init Hosp L2
[2022-11-13] MEDS: Insulin Lispro 10 UNIT in Syringe 0 ML 6 UNIT IV ×2 (17:21→23:29)
[2022-11-13] MEDS: Dextrose 50%-Water 25 GM/50 ML DISP.SYRIN IV ×2 (17:21→23:33)
[2022-11-13] MEDS: Albuterol *CONC* 2.5mg/0.5mL VIAL.NEB. 10 MG INHALATION (17:25)
[2022-11-13] MEDS: Acetaminophen 325 MG Tablet 650 MG PO (20:49)
[2022-11-13] MEDS: Pregabalin 50 MG Capsule 100 MG PO (20:49)
[2022-11-13] MEDS: Oxybutynin 5 MG Tablet 10 MG PO (20:50)
[2022-11-13] MEDS: Senna/Docusate Sodium 1 Tablet 2 TABLET PO (20:50)
[2022-11-13] MEDS: Lacosamide 50 MG Tablet 150 MG PO (20:51)
[2022-11-13] MEDS: Mirtazapine 30 MG Tablet PO (20:51)
[2022-11-13] MEDS: Divalproex (ER) 500 MG Tablet 1000 MG PO (20:51)
[2022-11-13] MEDS: Atorvastatin Calcium 20 MG Tablet PO (20:51)
[2022-11-13 20:52] LABS: Anion Gap 5 (5-15); BUN 30 mg/dL (7-18); BUN/Creat Ratio 30.8 RATIO (10-20); Calcium,Total 8.8 mg/dL (8.5-10.1); Chloride 110 mmol/L (98-107); Creatinine, Serum 0.97 mg/dL (0.55-1.02); EST Glomerular Filtration Rate 60 mL/min (>60); Est Glom Filt Rate - Afr Amer 73 mL/min (>60); Estimated Creatinine Clearance 42.68 ml/min; Glucose 198 mg/dL (74-106); Magnesium 1.7 mg/dL (1.6-2.6); Potassium 4.9 mmol/L (3.5-5.1); Sodium Level 141 mmol/L (136-145)
--- NOTE | 2022-11-13 20:55 | RAD_ITS ---
STUDY: XR Chest 1 View 11/13/2022 8:46 PM REASON FOR EXAM: Female, 72 years old. CHEST PAIN Fever COMPARISON: 10/15/2022 TECHNIQUE: XR Chest 1 View FINDINGS: There is no demonstrated pleural abnormality. There is a left sided pacemaker batterypack. There is an elevated right hemidiaphragm. Normal heart size. Normal mediastinum. Normal jannette. Prominent appearing increased interstitial lung markings. Normal visualized pulmonary arteries. There is atherosclerotic calcification of the aortic arch with tortuosity. There are diffuse degenerative changes of the visualized thoracic spine. There is degenerative osteoarthritis of the bilateral shoulders. There is no demonstrated abnormality of the visualized soft tissue structures of the upper abdomen. RAD/Chest 1 View (Portable) IMPRESSION: There are no acute findings. Electronically Signed: Teddy Stringer MD at 21:07 EDT ,
[2022-11-13 21:17] LABS: Mucous, Urine 0 SEEN /hpf (<or=2+); Red Blood Cells-Urine 0 SEEN /hpf (0-5)
[2022-11-13 21:24] LABS: Urine Chloride 115 mmol/L (Not Establ.); Urine Sodium 114 mmol/L (Not Establ.)
[2022-11-13 21:32] LABS: Color, Urine Yellow (Yellow); Glucose, Dipstick 100 mg/dl (Normal); Ketone-Dipstick Negative (Negative); Leukocyte Esterase-Dipstick 500 /ul (Negative); Nitrite-Dipstick Negative (Negative); Occult Blood-Urine 25 /ul (Negative); Protein-Dipstick 100 mg/dl (Negative); Urine Bilirubin Dipstick Negative (Negative); Urine Clarity Cloudy (Clear); Urine Urobilinogen Normal (Normal)
[2022-11-13 21:40] LABS: Bacteria 1+ /hpf (None Seen); Renal Epithelial Cells 0-5 SEEN /hpf (0-5); Squamous Epithelial Cells - UA 0-5 SEEN /hpf (5-10); White Blood Cells >100 SEEN /hpf (0-5)
[2022-11-13 21:55] LABS: Bedside Glucose 174 mg/dL (74-106)
[2022-11-13 22:20] LABS: Anion Gap 7 (5-15); BUN 30 mg/dL (7-18); BUN/Creat Ratio 30.2 RATIO (10-20); Chloride 109 mmol/L (98-107); Creatinine, Serum 0.99 mg/dL (0.55-1.02); EST Glomerular Filtration Rate 59 mL/min (>60); Est Glom Filt Rate - Afr Amer 71 mL/min (>60); Estimated Creatinine Clearance 41.82 ml/min; Glucose 249 mg/dL (74-106); Potassium 5.7 mmol/L (3.5-5.1); Sodium Level 138 mmol/L (136-145)
--- NOTE | 2022-11-13 22:20 | PN_ITS ---
Progress Note Patient with a fever. Her had a COVID 2 days ago. Rapid COVID- negative. Check PCR COVID. Urinalysis abnormal. Patient with a history of enterococcus faecalis UTI pansensitive. We will start patient on ceftriaxone. Zofran ordered for nausea
[2022-11-13 22:40] LABS: Lactic Acid 2.8 mmol/L (0.4-1.9)
[2022-11-13] MEDS: Ondansetron 4 MG/2 ML Vial IV (22:46)
[2022-11-13] MEDS: 0.9% Saline Lock 10 ML Syringe IV (22:46)
[2022-11-13 22:52] LABS: Valproic Acid (Depakene) Level 82 ug/mL (50-100)
[2022-11-13] MEDS: Insulin Lispro 100 UNIT/ML INSULN.PEN SC (22:59)
[2022-11-13] MEDS: Ceftriaxone 1 GM/50 ML BAG IV (23:00)
[2022-11-13] MEDS: Sodium Polystyrene Sulfonate 15 GM/60 ML UDC 30 GM PO (23:27)
--- NOTE | 2022-11-13 23:55 | SEPSISATNOTE ---
Sepsis Attestation Sepsis Alert: Yes Sepsis Attestation: Agree w/Sepsis Date exam was performed: 11/13/22 Time exam was performed: 23:55 Possible Source of Sepsis: Genitourinary Sepsis Organ Dysfunction Criteria Present: Lactic Acid > 2 mmol/L Supportive Findings: Patient with examined at bedside. She is alert but confused. Heart sounds S1-S2 present. Lungs clear to auscultation. Abdomen bowel sounds present soft nontender nondistended. Extremities with no edema The patient with sepsis due to (possible UTI) with acute sepsis related organ dysfunction as evidenced by (organ dysfunction/s). SIRS criteria: Temperature more than 100.9 Fahrenheit Heart rate more than 90 Urinalysis is positive for infection. organ dysfunction: Lactate more than 2 mmol/L. Trend lactic acid.
[2022-11-14] VITALS (14 sets, daily range): BP systolic 90–142; BP diastolic 52–76; PULSE 60–82; RESP 14–18; TEMP 36.7–38.1; O2SAT 88–99; BMI 28.8
[2022-11-14] MEDS: Polyethylene Glycol 3350 17 GM PACKET PO (00:46)
[2022-11-14 02:03] LABS: Reflex Lactate? Y
[2022-11-14] MEDS: 0.9% Normal Saline 1,000 ML 150 ML IV (02:57)
[2022-11-14 03:12] LABS: Absolute Lymphocyte Count 2.15 X10^3/uL (0.83-4.51); Absolute Neutrophil Count 5.1 X10^3/uL (2.0-7.7); Basophil# 0.02 X10^3/uL; Basophil% 0.2 % (0-1); Hematocrit 35.1 % (37-47); Hemoglobin 10.7 g/dL (12.0-15.0); Lymphocyte # 2.15 X10^3/ul (0.83-4.51); Lymphocyte % 25.1 % (19-41); Mean Corp Hgb Conc 30.5 g/dL (32-36); Mean Corpuscular Hgb 29.5 pg (27.0-32.0); Mean Corpuscular Volume 96.7 fL (81-99); Mean Platelet Vol. 10.1 fl (6.2-12.0); NRBC Flagged by Analyzer 0 % (0-5); Neutrophil # 5.14 X10^3/uL (2.7-7.7); Neutrophil % 60.1 % (47-70); Platelet Count 149 K/mm3 (150-450); RBC Distribution Width CV 15.9 % (11.6-14.6); RBC Distribution Width SD 56.6 fl (35.1-43.9); Red Blood Count 3.63 M/mm3 (4.2-5.4); White Blood Count 8.6 K/mm3 (4.4-11.0)
[2022-11-14 03:36] LABS: Lactic Acid 2.5 mmol/L (0.4-1.9)
[2022-11-14 03:38] LABS: Anion Gap 10 (5-15); BUN 32 mg/dL (7-18); BUN/Creat Ratio 29.6 RATIO (10-20); Calcium,Total 9.3 mg/dL (8.5-10.1); Chloride 107 mmol/L (98-107); Creatinine, Serum 1.08 mg/dL (0.55-1.02); EST Glomerular Filtration Rate 53 mL/min (>60); Est Glom Filt Rate - Afr Amer 64 mL/min (>60); Estimated Creatinine Clearance 38.34 ml/min; Glucose 234 mg/dL (74-106); Sodium Level 139 mmol/L (136-145)
[2022-11-14] MEDS: Albuterol *CONC* 2.5mg/0.5mL VIAL.NEB. 10 MG INHALATION (04:56)
[2022-11-14] MEDS: 0.9% Saline Lock 10 ML Syringe IV (04:59)
[2022-11-14] MEDS: Insulin Lispro 10 UNIT in Syringe 0 ML 6 UNIT IV (04:59)
[2022-11-14] MEDS: Furosemide 40 MG/4 ML Vial IV (04:59)
[2022-11-14] MEDS: Dextrose 50%-Water 25 GM/50 ML DISP.SYRIN IV (04:59)
[2022-11-14] MEDS: Polyethylene Glycol 3350 17 GM PACKET 34 GM PO (04:59)
[2022-11-14 05:36] LABS: Bedside Glucose 191 mg/dL (74-106)
[2022-11-14] MEDS: Insulin Lispro 100 UNIT/ML INSULN.PEN SC ×2 (06:32→12:26)
[2022-11-14 06:55] LABS: Bedside Glucose 247 mg/dL (74-106)
--- NOTE | 2022-11-14 08:31 | CPS ---
PATIENT WEANED TO ROOM AIR.
--- NOTE | 2022-11-14 08:32 | CPS ---
PATIENT INCREASED TO 1 LPM.
[2022-11-14 09:32] LABS: ALB/GLOB Ratio 0.5 RATIO (0.9-2.4); AST(SGOT) 27 U/L (15-37); Alanine Aminotransfer ALT/SGPT < 6 U/L (13-56); Albumin, Serum 2.9 g/dL (3.2-5.0); Alkaline Phosphatase 59 U/L (45-117); Anion Gap 10 (5-15); BUN 33 mg/dL (7-18); BUN/Creat Ratio 29.2 RATIO (10-20); Calcium,Total 8.9 mg/dL (8.5-10.1); Chloride 110 mmol/L (98-107); Creatinine, Serum 1.13 mg/dL (0.55-1.02); EST Glomerular Filtration Rate 51 mL/min (>60); Est Glom Filt Rate - Afr Amer 61 mL/min (>60); Estimated Creatinine Clearance 36.64 ml/min; Globulin 5.8 g/dL (2.2-4.2); Glucose 210 mg/dL (74-106); Potassium 4.8 mmol/L (3.5-5.1); Protein, Total 8.7 g/dL (6.4-8.2); Sodium Level 142 mmol/L (136-145)
[2022-11-14] MEDS: Sodium Polystyrene Sulfonate 15 GM/60 ML UDC 30 GM PO (10:47)
--- NOTE | 2022-11-14 11:57 | PN_ITS ---
Subjective Subjective Patient seen and examined. She was lying comfortably in bed. She was drowsy but will wake up to answer questions. She had no complaints and denied any pain, fever, chills, nausea or vomiting. Review of systems otherwise negative. Potassium has trended up further to 6 today. Creatinine has trended up slightly to 1.08. Objective Data Objective Data Vital Signs: Vital Signs Temp Pulse Resp BP Pulse Ox O2 Del Method O2 Flow Rate 98.0 F 70 16 112/57 L 97 Room Air 2 11/14/22 10:00 11/14/22 10:00 11/14/22 10:00 11/14/22 10:00 11/14/22 10:00 11/14/22 10:00 11/14/22 09:34 Oxygen Flow Rate (L/min) 2 Oxygen Delivery Method Room Air Weight: 157 lb 6.561 oz Body Mass Index (BMI) 28.8 Intake & Output: Intake and Output for Last 24 Hours 11/12/22 11/13/22 11/14/22 23:59 23:59 23:59 Intake Total 1432.5 / 1552.5 1557.5 / 1557.5 Output Total 900 / 900 Balance 1432.5 / 1202.5 657.5 / 657.5 Lab / Micro Data Result Diagrams: 11/14/22 03:03 11/14/22 07:43 Labs: Laboratory Results - last 24 hr 11/13/22 15:50: WBC 5.6, RBC 3.67 L, Hgb 11.0 L, Hct 35.4 L, MCV 96.5, MCH 30.0, MCHC 31.1 L, RDW Std Deviation 57.2 H, RDW Coeff of Ernesto 15.9 H, Plt Count 148 L, MPV 10.1, Immature Gran % (Auto) 0.900, Neut % (Auto) 46.9 L, Lymph % (Auto) 40.5, [place] % (Auto) 10.4 H, Eos % (Auto) 0.9, Baso % (Auto) 0.4, Absolute Neuts (auto) 2.6, Absolute Lymphs (auto) 2.25, Nucleated RBC % 0 11/13/22 15:50: Sodium 138, Potassium 6.2 H*, Chloride 105, Carbon Dioxide 28.0, Anion Gap 5, BUN 33 H, Creatinine 1.07 H, Estim Creat Clear Calc 38.69, Est GFR (MDRD) Af Amer 65, Est GFR (MDRD) Non-Af 54 L, BUN/Creatinine Ratio 30.8 H, Glucose 191 H, Calcium 9.4 11/13/22 19:11: Sodium 141, Potassium 4.9, Chloride 110 H, Carbon Dioxide 26.0, Anion Gap 5, BUN 30 H, Creatinine 0.97, Estim Creat Clear Calc 42.68, Est GFR (MDRD) Af Amer 73, Est GFR (MDRD) Non-Af 60, BUN/Creatinine Ratio 30.8 H, Glucose 198 H, Calcium 8.8, Magnesium 1.7 11/13/22 19:35: Ur Random Sodium 114, Urine Creatinine 24.00, Urine Potassium 25.0, Urine Chloride 115 11/13/22 19:35: Urine Color Yellow, Urine Clarity Cloudy, Urine pH 7.0, Ur Specific [place] 1.010, Urine Protein 100 H, Urine Glucose (UA) 100 H, Urine Ketones Negative, Urine Occult Blood 25 H, Urine Nitrite Negative, Urine Bilirubin Negative, Urine Urobilinogen Normal, Ur Leukocyte Esterase 500 H, Urine RBC 0 SEEN, Urine WBC >100 SEEN, Ur Squamous Epith Cells 0-5 SEEN, Ur Renal Epithelial Cell 0-5 SEEN, Urine Bacteria 1+, Urine Mucus 0 SEEN 11/13/22 20:29: POC Glucose 174 H 11/13/22 21:50: Sodium 138, Potassium 5.7 H, Chloride 109 H, Carbon Dioxide 22.0, Anion Gap 7, BUN 30 H, Creatinine 0.99, Estim Creat Clear Calc 41.82, Est GFR (MDRD) Af Amer 71, Est GFR (MDRD) Non-Af 59 L, BUN/Creatinine Ratio 30.2 H, Glucose 249 H, Calcium 9.0 11/13/22 21:50: Valproic Acid 82 11/13/22 21:50: Lactic Acid 2.8 H* 11/13/22 23:00: COVID-19 (WILY) Not Detected 11/14/22 03:03: Sodium 139, Potassium 6.0 H*, Chloride 107, Carbon Dioxide 22.0, Anion Gap 10, BUN 32 H, Creatinine 1.08 H, Estim Creat Clear Calc 38.34, Est GFR (MDRD) Af Amer 64, Est GFR (MDRD) Non-Af 53 L, BUN/Creatinine Ratio 29.6 H, Glucose 234 H, Calcium 9.3 11/14/22 03:03: WBC 8.6, RBC 3.63 L, Hgb 10.7 L, Hct 35.1 L, MCV 96.7, MCH 29.5, MCHC 30.5 L, RDW Std Deviation 56.6 H, RDW Coeff of Ernesto 15.9 H, Plt Count 149 L, MPV 10.1, Immature Gran % (Auto) 0.600, Neut % (Auto) 60.1, Lymph % (Auto) 25.1, [place] % (Auto) 14.0 H, Eos % (Auto) 0.0, Baso % (Auto) 0.2, Absolute Neuts (auto) 5.1, Absolute Lymphs (auto) 2.15, Nucleated RBC % 0 11/14/22 03:03: Lactic Acid 2.5 H* 11/14/22 04:49: POC Glucose 191 H 11/14/22 06:30: POC Glucose 247 H 11/14/22 07:43: Sodium 142, Potassium 4.8, Chloride 110 H, Carbon Dioxide 22.0, Anion Gap 10, BUN 33 H, Creatinine 1.13 H, Estim Creat Clear Calc 36.64, Est GFR (MDRD) Af Amer 61, Est GFR (MDRD) Non-Af 51 L, BUN/Creatinine Ratio 29.2 H, Glucose 210 H, Calcium 8.9, Total Bilirubin 0.50, AST 27, ALT < 6 L, Alkaline Phosphatase 59, Total Protein 8.7 H, Albumin 2.9 L, Globulin 5.8 H, Albumin/Globulin Ratio 0.5 L Micro: Microbiology 11/13/22 19:35 Urine, Clean Catch Urine Culture - Preliminary GPC Poss Enterococcus sp 11/13/22 21:10 Nasal Secretion SARS-CoV-2 & FLU Antigen (Rapid) - Final Radiography Diagnostic Testing: Radiology Impression Chest X-Ray 11/13/22 20:55 IMPRESSION: There are no acute findings. Electronically Signed: Teddy Stringer MD at 21:07 EDT , Physical Exam Const alert, oriented x3 and no apparent distress HEENT normocephalic, head/scalp atraumatic and moist oral mucous membranes Eyes PERRL and EOMs intact bilaterally Neck supple and no JVD Lymph Lymphatic: no lymphadenopathy noted and no lymphedema noted Resp normal respiratory effort, normal air movement and clear to auscultation bi laterally Cardio regular rate, regular rhythm, S1 normal heart sound, S2 normal heart sound and no murmurs GI normal to inspection, nondistended, normoactive bowel sounds, soft to palpation and non-tender GI Narrative: bladder markedly distended and palpable Extremity normal capillary refill, no clubbing, cyanosis or edema and no calf tenderness Skin General Skin Exam: no breakdown Neuro CN's II-XII intact bilaterally, no focal motor deficits, no sensory deficits noted and deep tendon reflexes 2+ bilaterally Motor Exam: strength 5/5 throughout Psych thought process normal Appearance: appropriate Assessment & Plan Assessment/Plan (1) Hyperkalemia: PLAN: Plan #Hyperkalemia * potassium has increased to 6 today. * I think this is likely due to urine retention, as bladder is quite distended * will order alfredo catheter insertion- 1900cc drained after Alfredo catheter inserted. * will give kayexalate today * trend potassium * #Parkinson's disease: stable. 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 Accuchecks ACHS #Paroxysmal A-fib: Status post pacemaker in 2018. Stable. #Hypertension: on amlodipine DVT prophylaxis:SCDs Charges/Coding Visit Charges Inpatient E&M: 57584 Subs Hosp L3
[2022-11-14] MEDS: Senna/Docusate Sodium 1 Tablet 2 TABLET PO (12:28)
[2022-11-14] MEDS: Divalproex (ER) 500 MG Tablet PO (12:29)
[2022-11-14] MEDS: Iron Polysaccharide Complex 150 MG CAPSULE PO (12:29)
[2022-11-14] MEDS: Pregabalin 50 MG Capsule 100 MG PO ×2 (12:36→22:46)
[2022-11-14] MEDS: Lacosamide 100 MG Tablet PO (12:37)
[2022-11-14 13:00] LABS: Bedside Glucose 167 mg/dL (74-106)
--- NOTE | 2022-11-14 13:34 | PCM.CONS.R ---
Assessment & Plan Assessment/Plan (1) Hyperkalemia: PLAN: Likely in the setting of urinary retention. Was found to have significant retention. She had somewhat similar presentation last admission. Most likely will need to be discharged with indwelling Alfredo catheter and outpatient urology follow-up. Potassium is better today. Currently not on any medications that can cause hyperkalemia. In the past she was on NIRAJ inhibitors which we discontinued last admission. Discussed with hospitalist. HPI Consult Data Date of Consult: 11/14/22 HPI Narrative Reason for Consultation: Hyperkalemia HPI Narrative: HERMINIA CARDONA, is a 72 F who presents to the hospital with hyperkalemia. She is known to us from previous admission. Had history of CHETNA, hyperkalemia at that time 2. She was in a [facility], routine lab work drawn at the [facility] showed hyperkalemia. Given with a potassium of 6.0. History of recently diagnosed Parkinson's, poor historian. Is not very conversational. When asked if she has any abdominal pain she says now. Trace edema. [facility] Medical History Anxiety Atrial fibrillation Breakthrough seizure Chronic kidney disease (CKD) Dysuria Essential hypertension Former smoker HLD (hyperlipidemia) Hypertension Hypertensive emergency without congestive heart failure Hypertriglyceridemia Junctional rhythm Kidney disease Non-smoker Obesity Pacemaker Paroxysmal atrial fibrillation Right ankle sprain Seizure Seizures Septic shock Tachy-maurizio syndrome Type 2 diabetes mellitus Vaginal bleeding Home Medications oxybutynin chloride 5 mg tablet,extended release 24 hr 10 mg PO QHS bladder 05/20/17 [History Last Taken 11/18/21] alendronate 70 mg tablet 70 mg PO SA BONES 11/19/21 [History Last Taken 11/15/21] divalproex 500 mg tablet,extended release 24 hr (Depakote ER) 1,000 mg PO QHS Seizures 11/19/21 [History Last Taken 11/18/21] divalproex 500 mg tablet,extended release 24 hr (Depakote ER) 500 mg PO DAILY Seizures 11/19/21 [History Last Taken 11/19/21] lacosamide 100 mg tablet (Vimpat) 100 mg PO DAILY SEIZURES 11/19/21 [History Last Taken 11/19/21] sitagliptin phosphate 50 mg tablet (Januvia) 100 mg PO DAILY Diabetes 11/19/21 [History Last Taken 11/18/21] acetaminophen 500 mg tablet 1,000 mg PO Q6H PRN PRN Pain Score 1-10 #0 tabs 12/10/21 [Rx Last Taken Unknown] mirtazapine 15 mg tablet 30 mg PO QHS Check with primary doctor 09/23/22 [History Last Taken Unknown] amlodipine 10 mg tablet 10 mg PO DAILY Check with primary doctor 09/29/22 [History Last Taken Unknown] atorvastatin 20 mg tablet 20 mg PO QHS Cholesterol 09/29/22 [History Last Taken Unknown] lacosamide 100 mg tablet (Vimpat) 150 mg PO QHS Seizures 09/29/22 [History Last Taken Unknown] pregabalin 100 mg capsule 100 mg PO BID Nerve Pain 5 days #10 caps 09/29/22 [Rx Last Taken Unknown] ascorbic acid (vitamin C) 500 mg tablet 500 mg PO BREAKFAST #0 tabs 10/16/22 [Rx Last Taken Unknown] menthol 0.44 %-zinc oxide 20.6 % topical ointment (Calmoseptine) 1 applic topical BID #0 grams 10/16/22 [Rx Last Taken Unknown] polyethylene glycol 3350 17 gram oral powder packet 17 g PO BID #0 ea 10/16/22 [Rx Last Taken Unknown] polysaccharide iron complex 150 mg iron capsule (Ferrex) 150 mg PO DAILY #0 caps 10/16/22 [Rx Last Taken Unknown] sennosides 8.6 mg-docusate sodium 50 mg tablet (Stool Softener-Stimulant Laxative) 2 tab PO BID #0 tabs 10/16/22 [Rx Last Taken Unknown] lacosamide 50 mg tablet (Vimpat) 150 mg PO QHS 3 days #9 tabs 10/22/22 [Rx Last Taken Unknown] pregabalin 50 mg capsule 100 mg PO BID 3 days #12 caps 10/22/22 [Rx Last Taken Unknown] Allergy/AdvReac Type Severity Reaction Status Date / Time amoxicillin [From Augmentin] Allergy Rash Verified 11/13/22 14:01 clavulanic acid Allergy Rash Verified 11/13/22 14:01 [From Augmentin] escitalopram [From Lexapro] Allergy Rash Verified 11/13/22 14:01 shellfish derived Allergy Unknown Verified 11/13/22 14:01 hydroxychloroquine AdvReac Severe Unknown Verified 11/13/22 14:01 [From Plaquenil] house dust AdvReac NEEDS Verified 11/13/22 14:01 FOLLOW-UP perfume AdvReac Unknown Verified 11/13/22 14:01 pineapple AdvReac Rash Verified 11/13/22 14:01 quinine AdvReac Unknown Verified 11/13/22 14:01 strawberry AdvReac Rash Verified 11/13/22 14:01 Sulfa (Sulfonamide AdvReac Unknown Verified 11/13/22 14:01 Antibiotics) Family History Brother Heart disease Hx CABG Hypertension Diabetes Mother Hypertension Surgical History History of breast surgery History of hysterectomy History of permanent cardiac pacemaker placement (11/15/17) Social History household members: spouse Smoking Status: Never smoker alcohol intake: never substance use type: does not use caffeine: No what type of physical activity do you participate in: none seatbelt use: always do you feel safe at home: Yes ROS ROS Narrative Negative except above Physical Exam Narrative Alert awake oriented x 3 no obvious distress no pallor no icterus no JVD s1s2 no murmurs lungs clear abdomen soft no organomegaly no edema no cyanosis alfredo + Lab / Micro Data Result Diagrams: 11/14/22 03:03 11/14/22 07:43 Labs: Laboratory Results - last 24 hr 11/13/22 15:50: WBC 5.6, RBC 3.67 L, Hgb 11.0 L, Hct 35.4 L, MCV 96.5, MCH 30.0, MCHC 31.1 L, RDW Std Deviation 57.2 H, RDW Coeff of Ernesto 15.9 H, Plt Count 148 L, MPV 10.1, Immature Gran % (Auto) 0.900, Neut % (Auto) 46.9 L, Lymph % (Auto) 40.5, [place] % (Auto) 10.4 H, Eos % (Auto) 0.9, Baso % (Auto) 0.4, Absolute Neuts (auto) 2.6, Absolute Lymphs (auto) 2.25, Nucleated RBC % 0 11/13/22 15:50: Sodium 138, Potassium 6.2 H*, Chloride 105, Carbon Dioxide 28.0, Anion Gap 5, BUN 33 H, Creatinine 1.07 H, Estim Creat Clear Calc 38.69, Est GFR (MDRD) Af Amer 65, Est GFR (MDRD) Non-Af 54 L, BUN/Creatinine Ratio 30.8 H, Glucose 191 H, Calcium 9.4 11/13/22 19:11: Sodium 141, Potassium 4.9, Chloride 110 H, Carbon Dioxide 26.0, Anion Gap 5, BUN 30 H, Creatinine 0.97, Estim Creat Clear Calc 42.68, Est GFR (MDRD) Af Amer 73, Est GFR (MDRD) Non-Af 60, BUN/Creatinine Ratio 30.8 H, Glucose 198 H, Calcium 8.8, Magnesium 1.7 11/13/22 19:35: Ur Random Sodium 114, Urine Creatinine 24.00, Urine Potassium 25.0, Urine Chloride 115 11/13/22 19:35: Urine Color Yellow, Urine Clarity Cloudy, Urine pH 7.0, Ur Specific [place] 1.010, Urine Protein 100 H, Urine Glucose (UA) 100 H, Urine Ketones Negative, Urine Occult Blood 25 H, Urine Nitrite Negative, Urine Bilirubin Negative, Urine Urobilinogen Normal, Ur Leukocyte Esterase 500 H, Urine RBC 0 SEEN, Urine WBC >100 SEEN, Ur Squamous Epith Cells 0-5 SEEN, Ur Renal Epithelial Cell 0-5 SEEN, Urine Bacteria 1+, Urine Mucus 0 SEEN 11/13/22 20:29: POC Glucose 174 H 11/13/22 21:50: Sodium 138, Potassium 5.7 H, Chloride 109 H, Carbon Dioxide 22.0, Anion Gap 7, BUN 30 H, Creatinine 0.99, Estim Creat Clear Calc 41.82, Est GFR (MDRD) Af Amer 71, Est GFR (MDRD) Non-Af 59 L, BUN/Creatinine Ratio 30.2 H, Glucose 249 H, Calcium 9.0 11/13/22 21:50: Valproic Acid 82 11/13/22 21:50: Lactic Acid 2.8 H* 11/13/22 23:00: COVID-19 (WILY) Not Detected 11/14/22 03:03: Sodium 139, Potassium 6.0 H*, Chloride 107, Carbon Dioxide 22.0, Anion Gap 10, BUN 32 H, Creatinine 1.08 H, Estim Creat Clear Calc 38.34, Est GFR (MDRD) Af Amer 64, Est GFR (MDRD) Non-Af 53 L, BUN/Creatinine Ratio 29.6 H, Glucose 234 H, Calcium 9.3 11/14/22 03:03: WBC 8.6, RBC 3.63 L, Hgb 10.7 L, Hct 35.1 L, MCV 96.7, MCH 29.5, MCHC 30.5 L, RDW Std Deviation 56.6 H, RDW Coeff of Ernesto 15.9 H, Plt Count 149 L, MPV 10.1, Immature Gran % (Auto) 0.600, Neut % (Auto) 60.1, Lymph % (Auto) 25.1, [place] % (Auto) 14.0 H, Eos % (Auto) 0.0, Baso % (Auto) 0.2, Absolute Neuts (auto) 5.1, Absolute Lymphs (auto) 2.15, Nucleated RBC % 0 11/14/22 03:03: Lactic Acid 2.5 H* 11/14/22 04:49: POC Glucose 191 H 11/14/22 06:30: POC Glucose 247 H 11/14/22 07:43: Sodium 142, Potassium 4.8, Chloride 110 H, Carbon Dioxide 22.0, Anion Gap 10, BUN 33 H, Creatinine 1.13 H, Estim Creat Clear Calc 36.64, Est GFR (MDRD) Af Amer 61, Est GFR (MDRD) Non-Af 51 L, BUN/Creatinine Ratio 29.2 H, Glucose 210 H, Calcium 8.9, Total Bilirubin 0.50, AST 27, ALT < 6 L, Alkaline Phosphatase 59, Total Protein 8.7 H, Albumin 2.9 L, Globulin 5.8 H, Albumin/Globulin Ratio 0.5 L 11/14/22 12:24: POC Glucose 167 H Micro: Microbiology 11/13/22 19:35 Urine, Clean Catch Urine Culture - Preliminary GPC Poss Enterococcus sp 11/13/22 21:10 Nasal Secretion SARS-CoV-2 & FLU Antigen (Rapid) - Final Radiology Impression Chest X-Ray 11/13/22 20:55 IMPRESSION: There are no acute findings. Electronically Signed: Teddy Stringer MD at 21:07 EDT ,
--- NOTE | 2022-11-14 14:50 | CASEMGMT ---
Addendum entered by Monica Heart 11/14/22 16:26: Social Work Treva from [facility] called to say they will take this pt back. SW to follow up on Wednesday in [facility] w/updates as new precert will be needed. LUCIEN Brewster Original Note: Social Work SW reviewed chart, pt is here from [facility]. SW met daughter in law Monty in the room, she is not certain of the plan. SW called pt's Thuan. He confirms plan will be for pt to return to [facility] when medically ready. He does not need a list of alternative nursing homes in the area. SW explained we will need to get a new precert in order for pt to return, states understanding. SW called [facility], message left for power station operator to call SW. Plan: Return to [facility] when ready, new precert needed. LUCIEN Brewster
[2022-11-14 17:09] LABS: Anion Gap 9 (5-15); BUN 33 mg/dL (7-18); BUN/Creat Ratio 33.1 RATIO (10-20); Chloride 112 mmol/L (98-107); EST Glomerular Filtration Rate 58 mL/min (>60); Est Glom Filt Rate - Afr Amer 71 mL/min (>60); Glucose 181 mg/dL (74-106); Potassium 4.4 mmol/L (3.5-5.1); Sodium Level 145 mmol/L (136-145)
[2022-11-14 18:16] LABS: Bedside Glucose 135 mg/dL (74-106)
[2022-11-14] MEDS: Ceftriaxone 1 GM/50 ML BAG IV (22:43)
[2022-11-14] MEDS: Divalproex (ER) 500 MG Tablet 1000 MG PO (22:45)
[2022-11-14] MEDS: Atorvastatin Calcium 20 MG Tablet PO (22:45)
[2022-11-14] MEDS: Mirtazapine 30 MG Tablet PO (22:46)
--- NOTE | 2022-11-14 22:50 | NURSING ---
tried to wean pt off of oxygen, but pt desatted to 88% on RA. pt placed back on 1L oxygen and now satting 96-97%. no further concerns at this time.
[2022-11-14] MEDS: Lacosamide 50 MG Tablet 150 MG PO (22:51)
[2022-11-14 23:15] LABS: Bedside Glucose 114 mg/dL (74-106)
--- NOTE | 2022-11-14 23:51 | EKG12_ITS ---
Test Reason : HYPERKALEMIA Blood Pressure : / mmHG Vent. Rate : 093 BPM Atrial Rate : 093 BPM P-R Int : 190 ms QRS Dur : 112 ms QT Int : 342 ms P-R-T Axes : 071 023 -21 degrees QTc Int : 425 ms Normal sinus rhythm Nonspecific ST abnormality Abnormal ECG When compared with ECG of 13-NOV-2022 15:07, MANUAL COMPARISON REQUIRED, DATA IS UNCONFIRMED Confirmed by ALONDRA LAMAR, JAY ([id number]), fan mail editor CHRIS REYES ([id number]) on 11/17/2022 8:49:14 AM Referred By: DR RIGGS Confirmed By:JAY CANTU MD
[2022-11-15] VITALS (11 sets, daily range): BP systolic 124–131; BP diastolic 57–66; PULSE 60–77; RESP 16–18; TEMP 36.7–38.3; O2SAT 88–97; BMI 28.0
[2022-11-15] MEDS: Alendronate Sodium 70 MG Tablet PO (06:15)
[2022-11-15 06:18] LABS: Absolute Lymphocyte Count 3.03 X10^3/uL (0.83-4.51); Absolute Neutrophil Count 4.2 X10^3/uL (2.0-7.7); Basophil# 0.03 X10^3/uL; Basophil% 0.4 % (0-1); Eosinophil# 0.22 X10^3/uL; Eosinophils% 2.7 % (0-5); Hematocrit 28.8 % (37-47); Hemoglobin 8.7 g/dL (12.0-15.0); Lymphocyte # 3.03 X10^3/ul (0.83-4.51); Lymphocyte % 36.7 % (19-41); Mean Corp Hgb Conc 30.2 g/dL (32-36); Mean Corpuscular Volume 99.3 fL (81-99); Mean Platelet Vol. 10.1 fl (6.2-12.0); Monocyte# 0.79 X10^3/uL; Monocyte% 9.6 % (0-10); NRBC Flagged by Analyzer 0 % (0-5); Neutrophil # 4.15 X10^3/uL (2.7-7.7); Neutrophil % 50.1 % (47-70); Platelet Count 105 K/mm3 (150-450); RBC Distribution Width CV 15.9 % (11.6-14.6); RBC Distribution Width SD 58.3 fl (35.1-43.9); White Blood Count 8.3 K/mm3 (4.4-11.0)
[2022-11-15 06:40] LABS: Bedside Glucose 132 mg/dL (74-106)
[2022-11-15] MEDS: LINAGLIPTIN 5 MG TABLET PO (09:00)
[2022-11-15] MEDS: Senna/Docusate Sodium 1 Tablet 2 TABLET PO ×2 (09:00→21:38)
[2022-11-15] MEDS: amLODIPine 10 MG Tablet PO (09:00)
[2022-11-15] MEDS: Divalproex (ER) 500 MG Tablet PO (09:01)
[2022-11-15] MEDS: Pregabalin 50 MG Capsule 100 MG PO ×2 (09:01→21:37)
[2022-11-15] MEDS: Iron Polysaccharide Complex 150 MG CAPSULE PO (09:01)
[2022-11-15] MEDS: Ascorbic Acid 500 MG Tablet PO (09:01)
--- NOTE | 2022-11-15 10:07 | PN_ITS ---
Subjective Subjective Patient seen and examined. She had no complaints this morning and had an full night. Review of systems otherwise negative. Potassium is trended downwards. She has remained hemodynamically stable. Objective Data Objective Data Vital Signs: Vital Signs Temp Pulse Resp BP Pulse Ox O2 Del Method O2 Flow Rate 98.8 F 61 16 125/57 H 97 Nasal Cannula 1 11/15/22 08:50 11/15/22 08:50 11/15/22 08:50 11/15/22 08:50 11/15/22 08:50 11/15/22 08:50 11/15/22 08:50 Oxygen Flow Rate (L/min) 1 Oxygen Delivery Method Nasal Cannula Weight: 153 lb 10.595 oz Body Mass Index (BMI) 28.0 Intake & Output: Intake and Output for Last 24 Hours 11/13/22 11/14/22 11/15/22 23:59 23:59 23:59 Intake Total 1432.5 / 1552.5 2207.5 / 2207.5 Output Total 3250 / 3250 400 / 400 Balance 1432.5 / 1202.5 -1042.5 / -1042.5 -400 / -400 Lab / Micro Data Result Diagrams: 11/15/22 05:16 11/14/22 16:44 Labs: Laboratory Results - last 24 hr 11/14/22 12:24: POC Glucose 167 H 11/14/22 16:44: Sodium 145, Potassium 4.4, Chloride 112 H, Carbon Dioxide 24.0, Anion Gap 9, BUN 33 H, Creatinine 1.00, Estim Creat Clear Calc 41.40, Est GFR (MDRD) Af Amer 71, Est GFR (MDRD) Non-Af 58 L, BUN/Creatinine Ratio 33.1 H, Glucose 181 H, Calcium 8.0 L 11/14/22 17:25: POC Glucose 135 H 11/14/22 22:34: POC Glucose 114 H 11/15/22 05:16: WBC 8.3, RBC 2.90 L, Hgb 8.7 L, Hct 28.8 L, MCV 99.3 H, MCH 30.0, MCHC 30.2 L, RDW Std Deviation 58.3 H, RDW Coeff of Ernesto 15.9 H, Plt Count 105 L, MPV 10.1, Immature Gran % (Auto) 0.500, Neut % (Auto) 50.1, Lymph % (Aut o) 36.7, [place] % (Auto) 9.6, Eos % (Auto) 2.7, Baso % (Auto) 0.4, Absolute Neuts (auto) 4.2, Absolute Lymphs (auto) 3.03, Nucleated RBC % 0 11/15/22 06:17: POC Glucose 132 H Micro: Microbiology 11/14/22 10:15 Urine, Random Urine Culture - Preliminary GPC Poss Enterococcus sp 11/13/22 19:35 Urine, Clean Catch Urine Culture - Final Enterococcus faecalis 11/13/22 21:10 Nasal Secretion SARS-CoV-2 & FLU Antigen (Rapid) - Final Physical Exam Const alert, oriented x3 and no apparent distress HEENT normocephalic, head/scalp atraumatic and moist oral mucous membranes Eyes PERRL and EOMs intact bilaterally Neck supple and no JVD Lymph Lymphatic: no lymphadenopathy noted and no lymphedema noted Resp normal respiratory effort, normal air movement and clear to auscultation bilaterally Cardio regular rate, regular rhythm, S1 normal heart sound, S2 normal heart sound and no murmurs GI normal to inspection, nondistended, normoactive bowel sounds, soft to palpation and non-tender Extremity normal capillary refill, no clubbing, cyanosis or edema and no calf tenderness Skin General Skin Exam: no breakdown Neuro CN's II-XII intact bilaterally, no focal motor deficits, no sensory deficits noted and deep tendon reflexes 2+ bilaterally Motor Exam: strength 5/5 throughout Psych thought process normal Appearance: appropriate Assessment & Plan Assessment/Plan (1) Hyperkalemia: PLAN: Plan #Hyperkalemia * potassium has trended down today and is 4.4 today. * was likely due to urinary retention. Dickson catheter drained 1.9L * nephrology on board; patient apparently had a similar presentation during her previous admission * oxybutinin discontinued as it can cause urinary retention * will trend potassium * = #Parkinson's disease: stable. 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 Accuchecks ACHS #Paroxysmal A-fib: Status post pacemaker in 2018. Stable. #Hypertension: on amlodipine DVT prophylaxis:SCDs Disposition: awaiting placement. Will need precert Charges/Coding Visit Charges Inpatient E&M: 59789 Subs Hosp L2
[2022-11-15] MEDS: Lacosamide 100 MG Tablet PO (11:30)
[2022-11-15 12:06] LABS: Bedside Glucose 136 mg/dL (74-106)
--- NOTE | 2022-11-15 14:32 | NURSING ---
Nkcehi from [facility] called for update. When discussing patient with her I told her she was requiring 2L oxygen, Nkechi said patient used oxygen PRN at the custodial primarily when she was sleeping.
[2022-11-15 17:20] LABS: Bedside Glucose 134 mg/dL (74-106)
[2022-11-15] MEDS: Ceftriaxone 1 GM/50 ML BAG IV (21:34)
[2022-11-15] MEDS: Mirtazapine 30 MG Tablet PO (21:35)
[2022-11-15] MEDS: Divalproex (ER) 500 MG Tablet 1000 MG PO (21:36)
[2022-11-15] MEDS: Acetaminophen 325 MG Tablet 650 MG PO (21:36)
[2022-11-15] MEDS: Atorvastatin Calcium 20 MG Tablet PO (21:37)
[2022-11-15] MEDS: Lacosamide 50 MG Tablet 150 MG PO (21:50)
[2022-11-15 22:46] LABS: Bedside Glucose 135 mg/dL (74-106)
[2022-11-16 03:19] VITALS: BP 109/58; PULSE 60; RESP 18; TEMP 37.6; O2SAT 95
[2022-11-16 03:58] VITALS: BMI 28.4
[2022-11-16 04:10] VITALS: BP 109/58; PULSE 60; RESP 18; TEMP 37.6; O2SAT 95
[2022-11-16 06:27] LABS: Absolute Neutrophil Count 4.3 X10^3/uL (2.0-7.7); Basophil# 0.02 X10^3/uL; Basophil% 0.2 % (0-1); Eosinophil# 0.13 X10^3/uL; Eosinophils% 1.6 % (0-5); Hematocrit 27.5 % (37-47); Hemoglobin 8.3 g/dL (12.0-15.0); Lymphocyte % 37.1 % (19-41); Mean Corp Hgb Conc 30.2 g/dL (32-36); Mean Corpuscular Hgb 29.3 pg (27.0-32.0); Mean Corpuscular Volume 97.2 fL (81-99); Mean Platelet Vol. 10.1 fl (6.2-12.0); Monocyte# 0.73 X10^3/uL; Monocyte% 8.7 % (0-10); NRBC Flagged by Analyzer 0 % (0-5); Neutrophil # 4.34 X10^3/uL (2.7-7.7); Neutrophil % 51.9 % (47-70); Platelet Count 115 K/mm3 (150-450); RBC Distribution Width CV 15.1 % (11.6-14.6); RBC Distribution Width SD 53.9 fl (35.1-43.9); Red Blood Count 2.83 M/mm3 (4.2-5.4); White Blood Count 8.4 K/mm3 (4.4-11.0)
[2022-11-16 06:46] LABS: Bedside Glucose 127 mg/dL (74-106)
[2022-11-16 08:02] LABS: Anion Gap 6 (5-15); BUN 25 mg/dL (7-18); BUN/Creat Ratio 34.8 RATIO (10-20); Calcium,Total 8.7 mg/dL (8.5-10.1); Chloride 108 mmol/L (98-107); Creatinine, Serum 0.72 mg/dL (0.55-1.02); EST Glomerular Filtration Rate 85 mL/min (>60); Est Glom Filt Rate - Afr Amer 103 mL/min (>60); Glucose 135 mg/dL (74-106); Potassium 3.8 mmol/L (3.5-5.1); Sodium Level 143 mmol/L (136-145)
[2022-11-16 09:45] VITALS: BP 129/63; PULSE 60; RESP 16; TEMP 37; O2SAT 94
[2022-11-16] MEDS: Iron Polysaccharide Complex 150 MG CAPSULE PO (09:47)
[2022-11-16] MEDS: Ascorbic Acid 500 MG Tablet PO (09:47)
[2022-11-16] MEDS: Divalproex (ER) 500 MG Tablet PO (09:47)
[2022-11-16] MEDS: amLODIPine 10 MG Tablet PO (09:48)
[2022-11-16] MEDS: Senna/Docusate Sodium 1 Tablet 2 TABLET PO (09:48)
[2022-11-16] MEDS: LINAGLIPTIN 5 MG TABLET PO (09:48)
--- NOTE | 2022-11-16 09:55 | CASEMGMT ---
Addendum entered by Paz Sanchez 11/16/22 14:29: Social Work Return call from Yenifer at [facility]. Pt does not need precert as she was at facility under intermediate level of care. Pt can return when medically ready. Physician updated and pt is ready for d/c today. Orders and covid results sent to [facility] via [facility]. Transportation arranged with [facility] for 3:30 picking supervisor via cot. SW updated pt and placed phone call to pt Thuan who is agreeable with discharge plan. Nursing and [facility] updated on discharge plan. Disposition: [facility], intermediate Level of Care KARENA Otto Original Note: Social Work Per Physician, pt is medically ready for discharge. Updates provided to [facility] via [employer]. left with [facility] addmission coordinator informing pt is ready for discharge and requesting precert be started. Plan: [facility], pending precert KARENA Otto
[2022-11-16] MEDS: Lacosamide 100 MG Tablet PO (09:59)
[2022-11-16 10:00] VITALS: O2SAT 86
[2022-11-16] MEDS: Pregabalin 50 MG Capsule 100 MG PO (10:16)
--- NOTE | 2022-11-16 10:40 | PN_ITS ---
Subjective Subjective Patient seen and examined. She had no complaints and felt well. She had an uneventful night. Review systems otherwise negative. SHe has remained hemodynamically stable. Objective Data Objective Data Vital Signs: Vital Signs Temp Pulse Resp BP Pulse Ox O2 Del Method O2 Flow Rate 98.6 F 60 16 129/63 H 86 Nasal Cannula 2 11/16/22 09:45 11/16/22 09:45 11/16/22 09:45 11/16/22 09:45 11/16/22 10:00 11/16/22 10:00 11/16/22 10:00 Oxygen Flow Rate (L/min) 2 Oxygen Delivery Method Nasal Cannula Weight: 155 lb 6.814 oz Body Mass Index (BMI) 28.4 Intake & Output: Intake and Output for Last 24 Hours 11/14/22 11/15/22 11/16/22 23:59 23:59 23:59 Intake Total 2207.5 / 2207.5 830 / 950 120 / 120 Output Total 3250 / 3250 1190 / 1340 400 / 400 Balance -1042.5 / -1042.5 -360 / -390 -280 / -280 Lab / Micro Data Result Diagrams: 11/16/22 05:58 11/16/22 05:58 Labs: Laboratory Results - last 24 hr 11/15/22 11:25: POC Glucose 136 H 11/15/22 16:50: POC Glucose 134 H 11/15/22 21:29: POC Glucose 135 H 11/16/22 05:58: WBC 8.4, RBC 2.83 L, Hgb 8.3 L, Hct 27.5 L, MCV 97.2, MCH 29.3, MCHC 30.2 L, RDW Std Deviation 53.9 H, RDW Coeff of Ernesto 15.1 H, Plt Count 115 L, MPV 10.1, Immature Gran % (Auto) 0.500, Neut % (Auto) 51.9, Lymph % (Auto) 37.1, [place] % (Auto) 8.7, Eos % (Auto) 1.6, Baso % (Auto) 0.2, Absolute Neuts (auto) 4.3, Absolute Lymphs (auto) 3.10, Nucleated RBC % 0 11/16/22 05:58: Sodium 143, Potassium 3.8, Chloride 108 H, Carbon Dioxide 29.0, Anion Gap 6, BUN 25 H, Creatinine 0.72, Estim Creat Clear Calc 41.40, Est GFR ( MDRD) Af Amer 103, Est GFR (MDRD) Non-Af 85, BUN/Creatinine Ratio 34.8 H, Glucose 135 H, Calcium 8.7 11/16/22 06:10: POC Glucose 127 H Micro: Microbiology 11/13/22 21:50 Blood Culture (Wb) - Anticubital Right Blood Culture - Preliminary No growth in 48 hours. 11/13/22 21:55 Blood Culture (Wb) - Right Hand Blood Culture - Preliminary No growth in 48 hours. 11/14/22 10:15 Urine, Random Urine Culture - Final Enterococcus faecalis 11/13/22 19:35 Urine, Clean Catch Urine Culture - Final Enterococcus faecalis 11/13/22 21:10 Nasal Secretion SARS-CoV-2 & FLU Antigen (Rapid) - Final Physical Exam Const alert, oriented x3 and no apparent distress HEENT normocephalic, head/scalp atraumatic and moist oral mucous membranes Eyes PERRL and EOMs intact bilaterally Neck supple and no JVD Lymph Lymphatic: no lymphadenopathy noted and no lymphedema noted Resp normal respiratory effort, normal air movement and clear to auscultation bilaterally Cardio regular rate, regular rhythm, S1 normal heart sound, S2 normal heart sound and no murmurs GI normal to inspection, nondistended, normoactive bowel sounds, soft to palpation and non-tender Extremity normal capillary refill, no clubbing, cyanosis or edema and no calf tenderness Skin General Skin Exam: no breakdown Neuro CN's II-XII intact bilaterally, no focal motor deficits, no sensory deficits noted and deep tendon reflexes 2+ bilaterally Motor Exam: strength 5/5 throughout Psych thought process normal Appearance: appropriate Assessment & Plan Assessment/Plan (1) Hyperkalemia: PLAN: Plan #Hyperkalemia * potassium has trended down today and is 3.8 * was likely due to urinary retention. Dickson catheter drained 1.9L * nephrology on board; patient apparently had a similar presentation during her previous admission * oxybutinin discontinued as it can cause urinary retention * will trend potassium * * #UTI: was on IV ceftriaxone. Urine culture growinig Enterococcus faecalis, sensitive to ampicillin. Will place on PO amoxicillin. #Parkinson's disease: stable. 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 Accuchecks ACHS #Paroxysmal A-fib: Status post pacemaker in 2018. Stable. #Hypertension: on amlodipine DVT prophylaxis:SCDs Disposition: awaiting placement. Will need precert Charges/Coding Visit Charges Inpatient E&M: 54833 Subs Hosp L2
[2022-11-16] MEDS: Insulin Lispro 100 UNIT/ML INSULN.PEN SC (11:44)
[2022-11-16 12:06] LABS: Bedside Glucose 156 mg/dL (74-106)
--- NOTE | 2022-11-16 12:19 | TREXTCAR_ITS ---
Diet Diet Order/Speech Therapy: 11/13/22 18:35 Diet: Regular - General Food consistency:: Regular Liquid Consistency:: Regular/Thin Routine Orders/Code Status Enema Type: Fleetz Enema Frequency: Daily PRN Suppository Type: Dulcolax 10mg Suppository Frequency: Daily PRN O2 Frequency: PRN Keep PO Greater than or Equal to (%): 90 Wound(s) forehead: Wound Type: Hematoma Therapies Weight Bearing: Weight bearing as tolerated Physical Therapy: Eval and Treat Occupational Therapy: Eval and Treat Problem/Diagnosis (1) Hyperkalemia: Status: Acute Code(s): E87.5 - Hyperkalemia Plan #Hyperkalemia * potassium has trended down today and is 3.8 * was likely due to urinary retention. Dickson catheter drained 1.9L * nephrology on board; patient apparently had a similar presentation during her previous admission * oxybutinin discontinued as it can cause urinary retention * will trend potassium * * #UTI: was on IV ceftriaxone. Urine culture growinig Enterococcus faecalis, sensitive to ampicillin. Will place on PO amoxicillin. #Parkinson's disease: stable. 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 Accuchecks ACHS #Paroxysmal A-fib: Status post pacemaker in 2018. Stable. #Hypertension: on amlodipine DVT prophylaxis:SCDs Disposition: awaiting placement. Will need precert Allergies/Procedures Done in Hospital Allergies amoxicillin [From Augmentin] Allergy (Verified 11/13/22 14:01) Rash RASH ON FACE clavulanic acid [From Augmentin] Allergy (Verified 11/13/22 14:01) Rash RASH ON FACE escitalopram [From Lexapro] Allergy (Verified 11/13/22 14:01) Rash shellfish derived Allergy (Verified 11/13/22 14:01) Unknown hydroxychloroquine [From Plaquenil] Adverse Reaction (Severe, Verified 11/13/22 14:01) Unknown house dust Adverse Reaction (Verified 11/13/22 14:01) NEEDS FOLLOW-UP perfume Adverse Reaction (Verified 11/13/22 14:01) Unknown pineapple Adverse Reaction (Verified 11/13/22 14:01) Rash quinine Adverse Reaction (Verified 11/13/22 14:01) Unknown strawberry Adverse Reaction (Verified 11/13/22 14:01) Rash Sulfa (Sulfonamide Antibiotics) Adverse Reaction (Verified 11/13/22 14:01) Unknown Procedures: None Type of Care/Length of Stay Estimated LOS: Convalescent Care Less Than 30 days Type of Care Needed: Skilled Rehab Potential: Fair Prognosis: Fair Additional Orders/Day of Discharge Day of Discharge: 11/16/22 Discharge Plan Admission Admit Date/Time: 11/13/22 17:06 Primary Reason for Your Visit: hyperkalemia, UTI Attending Provider: Billie Wen Primary Care Provider: Hannah Riggs Consulting Providers: Lavern Hirsch ; [place] Hector Discharge Orders/Prescriptions Prescriptions: New nitrofurantoin monohyd/m-cryst [Macrobid] 100 mg capsule 100 mg PO BID Qty: 9 0RF Rx Instructions: must administer with a meal/food Continued oxybutynin chloride 5 MG tablet 10 mg PO QHS Label Comments: bladder alendronate 70 mg Tablet 70 mg PO SA divalproex [Depakote ER] 500 mg Tablet Extended Release 24 Hr 500 mg PO DAILY divalproex [Depakote ER] 500 mg Tablet Extended Release 24 Hr 1,000 mg PO QHS Januvia 50 mg Tablet 100 mg PO DAILY Rx Instructions: with first meal lacosamide [Vimpat] 100 mg tablet 100 mg PO DAILY Label Comments: TAKE 1 TABLET BY MOUTH EVERY MORNING acetaminophen 500 mg Tablet 1,000 mg PO Q6H PRN PRN (Reason: Pain Score 1-10) Qty: 0 0RF mirtazapine 15 mg tablet 30 mg PO QHS pregabalin 100 mg Capsule 100 mg PO BID 5 Days Qty: 10 0RF atorvastatin 20 mg tablet 20 mg PO QHS amlodipine 10 mg tablet 10 mg PO DAILY lacosamide [Vimpat] 100 mg tablet 150 mg PO QHS sennosides-docusate sodium [Stool Softener-Stimulant Laxat] 8.6-50 mg Tablet 2 tab PO BID Qty: 0 0RF ascorbic acid (vitamin C) 500 mg Tablet 500 mg PO BREAKFAST Qty: 0 0RF polysaccharide iron complex [Ferrex 150] 150 mg iron Capsule 150 mg PO DAILY Qty: 0 0RF menthol-zinc oxide [Calmoseptine] 0.44-20.6 % Ointment 1 applic topical BID Qty: 0 0RF Protocol: *Topical Application Instructions APPLICATION INSTRUCTIONS: apply to nicola buttocks/coccyx polyethylene glycol 3350 17 gram Powder In Packet 17 g PO BID Qty: 0 0RF pregabalin 50 mg Capsule 100 mg PO BID 3 Days Qty: 12 0RF lacosamide [Vimpat] 50 mg Tablet 150 mg PO QHS 3 Days Qty: 9 0RF Referrals / Follow Up: Hannah Riggs DO [Primary Care Provider] - Within 2 Weeks Disposition Disposition (needs filled in before D/C Order can be placed): [facility]
--- NOTE | 2022-11-16 12:28 | DS.PCM_ITS ---
Providers Date of Admission: 11/13/22 Date of Discharge: 11/16/22 Primary Care Physician: Dr. Hannah Riggs, DO Consultations 11/14/22 04:25 Consult: Nephrology Routine Consulting Provider: [place] Hector Reason for Consult: hyperkalemia EMERGENT Consult: No MD Notified: Yes Date Notified: 11/14/22 Time Notified: 08:17 Method of Notification: Answering Service Reason For Visit: HYPERKALEMIA Diagnosis Discharge Diagnosis (1) Hyperkalemia: Status: Acute Code(s): E87.5 - Hyperkalemia Plan #Hyperkalemia * potassium has trended down today and is 3.8 * was likely due to urinary retention. Dickson catheter drained 1.9L * nephrology on board; patient apparently had a similar presentation during her previous admission * oxybutinin discontinued as it can cause urinary retention * will trend potassium * * #UTI: was on IV ceftriaxone. Urine culture growinig Enterococcus faecalis, sensitive to ampicillin. Will place on PO amoxicillin. #Parkinson's disease: stable. 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 Accuchecks ACHS #Paroxysmal A-fib: Status post pacemaker in 2018. Stable. #Hypertension: on amlodipine DVT prophylaxis:SCDs Disposition: awaiting placement. Will need precert Medications at Discharge Home Medications alendronate 70 mg tablet 70 mg PO SA BONES 11/19/21 divalproex 500 mg tablet,extended release 24 hr (Depakote ER) 1,000 mg PO QHS Seizures 11/19/21 divalproex 500 mg tablet,extended release 24 hr (Depakote ER) 500 mg PO DAILY Seizures 11/19/21 lacosamide 100 mg tablet (Vimpat) 100 mg PO DAILY SEIZURES 11/19/21 sitagliptin phosphate 50 mg tablet (Januvia) 100 mg PO DAILY Diabetes 11/19/21 acetaminophen 500 mg tablet 1,000 mg PO Q6H PRN PRN Pain Score 1-10 #0 tabs 12/10/21 mirtazapine 15 mg tablet 30 mg PO QHS Check with primary doctor 09/23/22 amlodipine 10 mg tablet 10 mg PO DAILY Check with primary doctor 09/29/22 atorvastatin 20 mg tablet 20 mg PO QHS Cholesterol 09/29/22 lacosamide 100 mg tablet (Vimpat) 150 mg PO QHS Seizures 09/29/22 pregabalin 100 mg capsule 100 mg PO BID Nerve Pain 5 days #10 caps 09/29/22 ascorbic acid (vitamin C) 500 mg tablet 500 mg PO BREAKFAST #0 tabs 10/16/22 menthol 0.44 %-zinc oxide 20.6 % topical ointment (Calmoseptine) 1 applic topical BID #0 grams 10/16/22 polyethylene glycol 3350 17 gram oral powder packet 17 g PO BID #0 ea 10/16/22 polysaccharide iron complex 150 mg iron capsule (Ferrex) 150 mg PO DAILY #0 caps 10/16/22 sennosides 8.6 mg-docusate sodium 50 mg tablet (Stool Softener-Stimulant Laxative) 2 tab PO BID #0 tabs 10/16/22 lacosamide 50 mg tablet (Vimpat) 150 mg PO QHS 3 days #9 tabs 10/22/22 pregabalin 50 mg capsule 100 mg PO BID 3 days #12 caps 10/22/22 nitrofurantoin monohydrate/macrocrystals 100 mg capsule (Macrobid) 100 mg PO BID #9 caps 11/16/22 Hospital Course Operations None Procedures None Summary of Care Provided Minutes Spent on Discharge: 48 Hospital Course: Patient is a 72 y/o female with a PMH as outlined who was admitted via the ED with a complaint of elevated potassium. Her potassium had been checked and was found to be elevated. She was given a dose of kayexalate and was brought in to the ED. in the ED potassium was elevated and creatinine was 1.07. EKG showed no acute changes. She was given potassium depleting cocktail and she was admitted and managed for hyperkalemia. Patient was on oxybutynin. Patient was subsequently found to have markedly distended bladder and a Dickson catheter inserted drained about 1.9 L of urine. She was also found to have UTI and started on iV ceftriaxone. Her urine cultures grew Enterococcus. She was placed on nitrofurantoin 100mg bid x 5 days. HEr oxybutinin was discontinued due to concerns about urinary incontinence. She remained stable and was discharged back to her SNF on 11/16/2022. She was discharged with the Dickson catheer in situ and was referred to urology on outpatient basis. Patient seen and examined prior to discharged. She had no complaints and had an uneventful night. Review of systems is otherwise negative. Labs and vitals reviewed. Home meds reviewed and reconciled. Physical Exam Const alert, oriented x3 and no apparent distress General Appearance: cooperative and comfortable Orientation / Consciousness: awake Exam Limitations: no limitations HEENT normocephalic, head/scalp atraumatic, hearing grossly normal bilaterally and moist oral mucous membranes Mouth: oral and palatal mucosa normal Eyes PERRL and EOMs intact bilaterally Neck no lymphadenopathy, supple and no JVD Lymph Lymphatic: no lymphadenopathy noted and no lymphedema noted Resp normal respiratory effort, normal air movement and clear to auscultation bilaterally Cardio regular rate, regular rhythm, S1 normal heart sound, S2 normal heart sound and no murmurs GI normal to inspection, nondistended, normoactive bowel sounds, soft to palpation and non-tender GI Narrative: bladder markedly distended and palpable Extremity normal to inspection, full ROM, normal capillary refill, no clubbing, cyanosis or edema and no calf tenderness Skin no rashes or lesions noted General Skin Exam: no breakdown Neuro CN's II-XII intact bilaterally, no focal motor deficits, no sensory deficits noted and deep tendon reflexes 2+ bilaterally Sensorium / Orientation: awake and alert Motor Exam: strength 5/5 throughout Psych thought process normal Appearance: appropriate Weight / BMI Weight Weight: 155 lb 6.814 oz Body Mass Index (BMI) 28.4 ABG / Lab / Microbiology Data Result Diagrams: 11/16/22 05:58 11/16/22 05:58 Laboratory: Laboratory Results - last 24 hr 11/15/22 16:50: POC Glucose 134 H 11/15/22 21:29: POC Glucose 135 H 11/16/22 05:58: WBC 8.4, RBC 2.83 L, Hgb 8.3 L, Hct 27.5 L, MCV 97.2, MCH 29.3, MCHC 30.2 L, RDW Std Deviation 53.9 H, RDW Coeff of Ernesto 15.1 H, Plt Count 115 L, MPV 10.1, Immature Gran % (Auto) 0.500, Neut % (Auto) 51.9, Lymph % (Auto) 37.1, Branch % (Auto) 8.7, Eos % (Auto) 1.6, Baso % (Auto) 0.2, Absolute Neuts (auto) 4.3, Absolute Lymphs (auto) 3.10, Nucleated RBC % 0 11/16/22 05:58: Sodium 143, Potassium 3.8, Chloride 108 H, Carbon Dioxide 29.0, Anion Gap 6, BUN 25 H, Creatinine 0.72, Estim Creat Clear Calc 41.40, Est GFR (MDRD) Af Amer 103, Est GFR (MDRD) Non-Af 85, BUN/Creatinine Ratio 34.8 H, Glucose 135 H, Calcium 8.7 11/16/22 06:10: POC Glucose 127 H 11/16/22 11:43: POC Glucose 156 H Microbiology: Microbiology 11/14/22 10:15 Urine, Random Urine Culture - Final Enterococcus faecalis 11/13/22 21:50 Blood Culture (Wb) - Anticubital Right Blood Culture - Preliminary No growth in 48 hours. 11/13/22 21:55 Blood Culture (Wb) - Right Hand Blood Culture - Preliminary No growth in 48 hours. 11/13/22 19:35 Urine, Clean Catch Urine Culture - Final Enterococcus faecalis 11/13/22 21:10 Nasal Secretion SARS-CoV-2 & FLU Antigen (Rapid) - Final D/C Instructions Discharge Diet: Low fat / Low cholesterol Weight Bearing Status: Weight bearing as tolerated Call your doctor if you observe: Fever of 101 or Higher, Shortness of breath, Swelling in the ankles, Chest pain and Increased palpitations (irregular heartbeat) Meaningful Use Info Meaningful Use Diagnoses (Choose all that apply): None applicable Discharge Plan Admission Admit Date/Time: 11/13/22 17:06 Primary Reason for Your Visit: hyperkalemia, UTI Attending Provider: Billie Wen Primary Care Provider: Hannah Riggs Consulting Providers: Lavern Hirsch ; [place] Hector Discharge Orders/Prescriptions Prescriptions: New nitrofurantoin monohyd/m-cryst [Macrobid] 100 mg capsule 100 mg PO BID Qty: 9 0RF Rx Instructions: must administer with a meal/food Continued alendronate 70 mg Tablet 70 mg PO SA divalproex [Depakote ER] 500 mg Tablet Extended Release 24 Hr 500 mg PO DAILY divalproex [Depakote ER] 500 mg Tablet Extended Release 24 Hr 1,000 mg PO QHS Januvia 50 mg Tablet 100 mg PO DAILY Rx Instructions: with first meal lacosamide [Vimpat] 100 mg tablet 100 mg PO DAILY Label Comments: TAKE 1 TABLET BY MOUTH EVERY MORNING acetaminophen 500 mg Tablet 1,000 mg PO Q6H PRN PRN (Reason: Pain Score 1-10) Qty: 0 0RF mirtazapine 15 mg tablet 30 mg PO QHS pregabalin 100 mg Capsule 100 mg PO BID 5 Days Qty: 10 0RF atorvastatin 20 mg tablet 20 mg PO QHS amlodipine 10 mg tablet 10 mg PO DAILY lacosamide [Vimpat] 100 mg tablet 150 mg PO QHS sennosides-docusate sodium [Stool Softener-Stimulant Laxat] 8.6-50 mg Tablet 2 tab PO BID Qty: 0 0RF ascorbic acid (vitamin C) 500 mg Tablet 500 mg PO BREAKFAST Qty: 0 0RF polysaccharide iron complex [Ferrex 150] 150 mg iron Capsule 150 mg PO DAILY Qty: 0 0RF menthol-zinc oxide [Calmoseptine] 0.44-20.6 % Ointment 1 applic topical BID Qty: 0 0RF Protocol: *Topical Application Instructions APPLICATION INSTRUCTIONS: apply to nicola buttocks/coccyx polyethylene glycol 3350 17 gram Powder In Packet 17 g PO BID Qty: 0 0RF pregabalin 50 mg Capsule 100 mg PO BID 3 Days Qty: 12 0RF lacosamide [Vimpat] 50 mg Tablet 150 mg PO QHS 3 Days Qty: 9 0RF Discontinued oxybutynin chloride 5 MG tablet 10 mg PO QHS Label Comments: bladder Referrals / Follow Up: Marie Young MD [Med Staff - Active Staff] - Within 2 Weeks (see to establish care for urinary retention) Hannah Riggs DO [Primary Care Provider] - Within 2 Weeks Disposition Disposition (needs filled in before D/C Order can be placed): [facility] Charges/Coding Visit Charges Inpatient E&M: 03123 Disch Hosp >30min
[2022-11-16 13:27] VITALS: O2SAT 95
[2022-11-16 14:07] VITALS: BP 118/64; PULSE 62; RESP 16; TEMP 37.4; O2SAT 96
[2022-11-16] MEDS: Nitrofurantoin Macrocrystals 100 MG Capsule PO (14:14)
--- NOTE | 2022-11-16 14:24 | PCM.PN.REN ---
Subjective Subjective Following for hyperkalemia Patient is sitting up in bed. Denies any complaints. To be discharged to ECF today. Objective Data Objective Data Vital Signs: Vital Signs Temp Pulse Resp BP Pulse Ox O2 Del Method O2 Flow Rate 99.4 F H 62 16 118/64 96 Nasal Cannula 2 11/16/22 14:07 11/16/22 14:07 11/16/22 14:07 11/16/22 14:07 11/16/22 14:07 11/16/22 14:07 11/16/22 14:07 Oxygen Flow Rate (L/min) 2 Oxygen Delivery Method Nasal Cannula Weight: 70.5 kg Body Mass Index (BMI) 28.4 Intake & Output: Intake and Output for Last 24 Hours 11/14/22 11/15/22 11/16/22 23:59 23:59 23:59 Intake Total 2207.5 / 2207.5 830 / 950 570 / 570 Output Total 3250 / 3250 1190 / 1340 750 / 750 Balance -1042.5 / -1042.5 -360 / -390 -180 / -180 Lab / Micro Data Result Diagrams: 11/16/22 05:58 11/16/22 05:58 Labs: Laboratory Results - last 24 hr 11/15/22 16:50: POC Glucose 134 H 11/15/22 21:29: POC Glucose 135 H 11/16/22 05:58: WBC 8.4, RBC 2.83 L, Hgb 8.3 L, Hct 27.5 L, MCV 97.2, MCH 29.3, MCHC 30.2 L, RDW Std Deviation 53.9 H, RDW Coeff of Ernesto 15.1 H, Plt Count 115 L, MPV 10.1, Immature Gran % (Auto) 0.500, Neut % (Auto) 51.9, Lymph % (Auto) 37.1, Sutter % (Auto) 8.7, Eos % (Auto) 1.6, Baso % (Auto) 0.2, Absolute Neuts (auto) 4.3, Absolute Lymphs (auto) 3.10, Nucleated RBC % 0 11/16/22 05:58: Sodium 143, Potassium 3.8, Chloride 108 H, Carbon Dioxide 29.0, Anion Gap 6, BUN 25 H, Creatinine 0.72, Estim Creat Clear Calc 41.40, Est GFR (MDRD) Af Amer 103, Est GFR (MDRD) Non-Af 85, BUN/Creatinine Ratio 34.8 H, Glucose 135 H, Calcium 8.7 11/16/22 06:10: POC Glucose 127 H 11/16/22 11:43: POC Glucose 156 H Micro: Microbiology 11/16/22 12:30 Nasal Secretion SARS-CoV-2 Antigen (Rapid) - Final 11/14/22 10:15 Urine, Random Urine Culture - Final Enterococcus faecalis 11/13/22 21:50 Blood Culture (Wb) - Anticubital Right Blood Culture - Preliminary No growth in 48 hours. 11/13/22 21:55 Blood Culture (Wb) - Right Hand Blood Culture - Preliminary No growth in 48 hours. 11/13/22 19:35 Urine, Clean Catch Urine Culture - Final Enterococcus faecalis 11/13/22 21:10 Nasal Secretion SARS-CoV-2 & FLU Antigen (Rapid) - Final Physical Exam Narrative Alert awake oriented x 3, no obvious distress s1s2 no murmurs lungs clear abdomen soft no edema alfredo + Assessment & Plan Assessment/Plan (1) Hyperkalemia: PLAN: Acute hyperkalemia likely in the setting of urinary retention. Was found to have significant retention, now has Alfredo catheter. She had somewhat similar presentation last admission. Patient is not on a low potassium diet in the hospital. Most likely will need to be discharged with indwelling Alfredo catheter and outpatient urology follow-up. Oxybutynin discontinued. Potassium has normalized, potassium was 6.2 on admission and today is 3.8. Serum creatinine 0.72 mg/dL today. Creatinine was 1.07 mg/dL on admission (11/13). Currently not on any medications that can cause hyperkalemia. In the past she was on NIRAJ inhibitors which we discontinued last admission. Patient is being discharged to ECF today.
--- NOTE | 2022-11-16 14:45 | PHA.DC.MR ---
Pharmacy Service has performed discharge medication reconciliation for this patient. The patient's discharge medication list was reviewed for discrepancies and discrepancies were resolved. Home Medications alendronate 70 mg tablet 70 mg PO SA BONES 11/19/21 divalproex 500 mg tablet,extended release 24 hr (Depakote ER) 1,000 mg PO QHS Seizures 11/19/21 divalproex 500 mg tablet,extended release 24 hr (Depakote ER) 500 mg PO DAILY Seizures 11/19/21 lacosamide 100 mg tablet (Vimpat) 100 mg PO DAILY SEIZURES 11/19/21 sitagliptin phosphate 50 mg tablet (Januvia) 100 mg PO DAILY Diabetes 11/19/21 acetaminophen 500 mg tablet 1,000 mg PO Q6H PRN PRN Pain Score 1-10 #0 tabs 12/10/21 mirtazapine 15 mg tablet 30 mg PO QHS Check with primary doctor 09/23/22 amlodipine 10 mg tablet 10 mg PO DAILY Check with primary doctor 09/29/22 atorvastatin 20 mg tablet 20 mg PO QHS Cholesterol 09/29/22 lacosamide 100 mg tablet (Vimpat) 150 mg PO QHS Seizures 09/29/22 pregabalin 100 mg capsule 100 mg PO BID Nerve Pain 5 days #10 caps 09/29/22 ascorbic acid (vitamin C) 500 mg tablet 500 mg PO BREAKFAST #0 tabs 10/16/22 menthol 0.44 %-zinc oxide 20.6 % topical ointment (Calmoseptine) 1 applic topical BID #0 grams 10/16/22 polyethylene glycol 3350 17 gram oral powder packet 17 g PO BID #0 ea 10/16/22 polysaccharide iron complex 150 mg iron capsule (Ferrex) 150 mg PO DAILY #0 caps 10/16/22 sennosides 8.6 mg-docusate sodium 50 mg tablet (Stool Softener-Stimulant Laxative) 2 tab PO BID #0 tabs 10/16/22 lacosamide 50 mg tablet (Vimpat) 150 mg PO QHS 3 days #9 tabs 10/22/22 pregabalin 50 mg capsule 100 mg PO BID 3 days #12 caps 10/22/22 nitrofurantoin monohydrate/macrocrystals 100 mg capsule (Macrobid) 100 mg PO BID #9 caps 11/16/22
== END 2022-11-16 15:48 | disposition skilled nursing facility (03) | DRG 641 ==
LOC: ED 16:47 → PCU 17:36
PROVIDERS: Hospitalist; Admitting Provider Internal Medicine; Emergency Provider Emergency Medicine; PCP Internal Medicine; Visit Provider Student in an Organized Health Care Education/Training Program
DX: E87.5 Hyperkalemia (principal); N39.0 Urinary tract infection, site not specified; E11.22 Type 2 diabetes mellitus with diabetic chronic kidney disease; G20 Parkinson's disease; E78.5 Hyperlipidemia, unspecified; B95.2 Enterococcus as the cause of diseases classified elsewhere; I48.0 Paroxysmal atrial fibrillation; G40.909 Epilepsy, unspecified, not intractable, without status epilepticus; N18.31 Chronic kidney disease, stage 3a; I12.9 Hypertensive chronic kidney disease with stage 1 through stage 4 chronic kidney disease, or unspecified chronic kidney disease; Z79.83 Long term (current) use of bisphosphonates
CPT/HCPCS: 36415; 71045; 80048; 80053; 80164; 81001; 82436; 82570; 82962; 83605; 83735; 84133; 84300; 85025; 87040; 87077; 87086; 87088; 87186; 87426; 87428; 87635; 93005; 94640; 94668; 94762; 97110; 97162; 97166; 97530; 99285; J7030; A4216; J0610; J1940; J2405; U0003; U0005

== ENCOUNTER → 2022-11-13 | Outpatient (REF) | payer MEDICARE, SELFPAY ==
[2022-11-13 08:38] LABS: Potassium 6.2 mmol/L (3.5-5.1)
== END ==
LOC: OLS.ACH 05:00
PROVIDERS: PCP Internal Medicine; Visit Provider Internal Medicine
DX: N18.9 Chronic kidney disease, unspecified (principal); E87.5 Hyperkalemia
CPT/HCPCS: 36415; 84132

== ENCOUNTER → 2023-01-27 | Outpatient (CLI) | payer SELFPAY ==
[2023-01-27 13:44] LABS: Protein, Urine (Random) 52.9 mg/dL (<11.9); Protein:Creat Ratio 1303 mg/g CRE (0-200)
== END | disposition home or self-care (01) ==
LOC: LABSPEC 12:18
PROVIDERS: PCP Internal Medicine; Visit Provider Internal Medicine Nephrology
DX: E11.21 Type 2 diabetes mellitus with diabetic nephropathy (principal)
CPT/HCPCS: 82570; 84156

== ENCOUNTER → 2023-02-01 | Outpatient (REF) | payer MEDICARE, SELFPAY ==
[2023-02-01 09:09] LABS: Potassium 4.4 mmol/L (3.5-5.1)
== END ==
LOC: OLS.ACH 04:00
PROVIDERS: PCP Internal Medicine; Referring Provider Internal Medicine; Visit Provider Internal Medicine
DX: E87.5 Hyperkalemia (principal)
CPT/HCPCS: 36415; 84132

== ENCOUNTER → 2023-02-09 | Outpatient (REF) | payer MEDICARE, SELFPAY ==
[2023-02-09 09:08] LABS: Potassium 5.1 mmol/L (3.5-5.1)
== END ==
LOC: OLS.ACH 05:00
PROVIDERS: PCP Internal Medicine; Visit Provider Internal Medicine
DX: E78.5 Hyperlipidemia, unspecified (principal); E11.42 Type 2 diabetes mellitus with diabetic polyneuropathy
CPT/HCPCS: 36415; 83036; 84132

== ENCOUNTER → 2023-02-13 | Outpatient (REF) | payer MEDICARE, SELFPAY ==
[2023-02-13 20:03] LABS: Absolute Lymphocyte Count 3.69 X10^3/uL (0.83-4.51); Absolute Neutrophil Count 4.8 X10^3/uL (2.0-7.7); Basophil# 0.04 X10^3/uL; Basophil% 0.4 % (0-1); Eosinophils% 2.1 % (0-5); Hematocrit 34.3 % (37-47); Hemoglobin 10.5 g/dL (12.0-15.0); Lymphocyte # 3.69 X10^3/ul (0.83-4.51); Lymphocyte % 39.5 % (19-41); Mean Corp Hgb Conc 30.6 g/dL (32-36); Mean Corpuscular Hgb 28.2 pg (27.0-32.0); Mean Corpuscular Volume 92.2 fL (81-99); Mean Platelet Vol. 10.6 fl (6.2-12.0); Monocyte# 0.59 X10^3/uL; Monocyte% 6.3 % (0-10); NRBC Flagged by Analyzer 0 % (0-5); Neutrophil # 4.76 X10^3/uL (2.7-7.7); Neutrophil % 51.2 % (47-70); Platelet Count 208 K/mm3 (150-450); RBC Distribution Width CV 14.3 % (11.6-14.6); RBC Distribution Width SD 48.4 fl (35.1-43.9); Red Blood Count 3.72 M/mm3 (4.2-5.4); White Blood Count 9.3 K/mm3 (4.4-11.0)
[2023-02-13 20:20] LABS: ALB/GLOB Ratio 0.6 RATIO (0.9-2.4); AST(SGOT) 26 U/L (15-37); Alanine Aminotransfer ALT/SGPT 7 U/L (13-56); Albumin, Serum 3.2 g/dL (3.2-5.0); Alkaline Phosphatase 75 U/L (45-117); Anion Gap 8 (5-15); BUN 30 mg/dL (7-18); BUN/Creat Ratio 30.5 RATIO (10-20); Calcium,Total 9.3 mg/dL (8.5-10.1); Chloride 102 mmol/L (98-107); Creatinine, Serum 0.98 mg/dL (0.55-1.02); EST Glomerular Filtration Rate 59 mL/min (>60); Est Glom Filt Rate - Afr Amer 72 mL/min (>60); Globulin 5.5 g/dL (2.2-4.2); Glucose 206 mg/dL (74-106); Protein, Total 8.7 g/dL (6.4-8.2); Sodium Level 136 mmol/L (136-145)
== END ==
LOC: OLS.ACH 07:25
PROVIDERS: PCP Internal Medicine; Visit Provider Internal Medicine
DX: G40.219 Localization-related (focal) (partial) symptomatic epilepsy and epileptic syndromes with complex partial seizures, intractable, without status epilepticus (principal)
CPT/HCPCS: 36415; 80053; 85025

== ENCOUNTER → 2023-02-16 | Outpatient (REF) | payer MEDICARE, SELFPAY | LOC: OLS.ACH 05:00 | PROVIDERS: PCP Internal Medicine; Visit Provider Internal Medicine | DX: E87.5 Hyperkalemia (principal); G40.219 Localization-related (focal) (partial) symptomatic epilepsy and epileptic syndromes with complex partial seizures, intractable, without status epilepticus | CPT/HCPCS: 36415; 84132 ==

== ENCOUNTER → 2023-02-24 | Outpatient (REF) | payer MEDICARE, SELFPAY | LOC: OLS.ACH 05:28 | PROVIDERS: PCP Internal Medicine; Visit Provider Internal Medicine | DX: G40.219 Localization-related (focal) (partial) symptomatic epilepsy and epileptic syndromes with complex partial seizures, intractable, without status epilepticus (principal) | CPT/HCPCS: 36415 ==

== ENCOUNTER → 2023-03-03 | Outpatient (REF) | payer MEDICARE, SELFPAY ==
[2023-03-03 10:46] LABS: Potassium 5.2 mmol/L (3.5-5.1)
== END ==
LOC: OLS.ACH 05:00
PROVIDERS: PCP Internal Medicine; Visit Provider Internal Medicine
DX: G40.219 Localization-related (focal) (partial) symptomatic epilepsy and epileptic syndromes with complex partial seizures, intractable, without status epilepticus (principal)
CPT/HCPCS: 36415; 84132

== ENCOUNTER → 2023-04-05 | Outpatient (REF) | payer MEDICARE, SELFPAY ==
[2023-04-05 10:16] LABS: AST(SGOT) 32 U/L (15-37); Alanine Aminotransfer ALT/SGPT 8 U/L (13-56); Albumin, Serum 3.2 g/dL (3.2-5.0); Alkaline Phosphatase 77 U/L (45-117); Bilirubin, Direct 0.06 mg/dL (0.00-0.30); Globulin 5.7 g/dL (2.2-4.2); Potassium 5.3 mmol/L (3.5-5.1); Protein, Total 8.9 g/dL (6.4-8.2)
== END ==
LOC: OLS.ACH 04:00
PROVIDERS: PCP Internal Medicine; Referring Provider Internal Medicine; Visit Provider Internal Medicine
DX: F06.0 Psychotic disorder with hallucinations due to known physiological condition (principal); G40.219 Localization-related (focal) (partial) symptomatic epilepsy and epileptic syndromes with complex partial seizures, intractable, without status epilepticus
CPT/HCPCS: 36415; 80076; 82140; 84132

== ENCOUNTER → 2023-04-06 | Outpatient (REF) | payer MEDICARE, MEDICAID, SELFPAY | LOC: OLS.ACH 05:00 | PROVIDERS: PCP Internal Medicine; Visit Provider Internal Medicine | DX: E87.5 Hyperkalemia (principal); G40.219 Localization-related (focal) (partial) symptomatic epilepsy and epileptic syndromes with complex partial seizures, intractable, without status epilepticus; E72.20 Disorder of urea cycle metabolism, unspecified ==

== ENCOUNTER → 2023-04-09 | Outpatient (REF) | payer MEDICARE, SELFPAY ==
[2023-04-09 08:02] LABS: Potassium 5.7 mmol/L (3.5-5.1)
== END ==
LOC: OLS.ACH 05:00
PROVIDERS: PCP Internal Medicine; Visit Provider Internal Medicine
DX: E87.5 Hyperkalemia (principal)
CPT/HCPCS: 36415; 84132

== ENCOUNTER → 2023-04-12 | Outpatient (REF) | payer MEDICARE, SELFPAY ==
[2023-04-12 11:11] LABS: Potassium 5.3 mmol/L (3.5-5.1)
== END ==
LOC: OLS.ACH 05:00
PROVIDERS: PCP Internal Medicine; Visit Provider Internal Medicine
DX: E87.5 Hyperkalemia (principal)
CPT/HCPCS: 36415; 84132

== ENCOUNTER → 2023-05-04 | Outpatient (REF) | payer MEDICARE, SELFPAY ==
[2023-05-04 09:42] LABS: Hematocrit 30.6 % (37-47); Hemoglobin 9.2 g/dL (12.0-15.0); Mean Corp Hgb Conc 30.1 g/dL (32-36); Mean Corpuscular Hgb 27.5 pg (27.0-32.0); Mean Corpuscular Volume 91.3 fL (81-99); Mean Platelet Vol. 10.7 fl (6.2-12.0); Platelet Count 218 K/mm3 (150-450); RBC Distribution Width CV 14.7 % (11.6-14.6); RBC Distribution Width SD 49.4 fl (35.1-43.9); Red Blood Count 3.35 M/mm3 (4.2-5.4); White Blood Count 6.5 K/mm3 (4.4-11.0)
[2023-05-04 09:59] LABS: Anion Gap 6 (5-15); BUN 15 mg/dL (7-18); BUN/Creat Ratio 17.5 RATIO (10-20); Calcium,Total 8.8 mg/dL (8.5-10.1); Chloride 107 mmol/L (98-107); Creatinine, Serum 0.86 mg/dL (0.55-1.02); EST Glomerular Filtration Rate 69 mL/min (>60); Est Glom Filt Rate - Afr Amer 84 mL/min (>60); Glucose 161 mg/dL (74-106); Potassium 4.4 mmol/L (3.5-5.1); Sodium Level 138 mmol/L (136-145)
== END ==
LOC: OLS.ACH 04:00
PROVIDERS: PCP Internal Medicine; Referring Provider Internal Medicine; Visit Provider Internal Medicine
DX: E87.5 Hyperkalemia (principal)
CPT/HCPCS: 36415; 80048; 85027

== ENCOUNTER → 2023-05-18 | Outpatient (REF) | payer MEDICARE, SELFPAY ==
[2023-05-18 08:32] LABS: Anion Gap 4 (5-15); BUN 21 mg/dL (7-18); BUN/Creat Ratio 24.1 RATIO (10-20); Calcium,Total 8.7 mg/dL (8.5-10.1); Chloride 112 mmol/L (98-107); Creatinine, Serum 0.87 mg/dL (0.55-1.02); EST Glomerular Filtration Rate 68 mL/min (>60); Est Glom Filt Rate - Afr Amer 83 mL/min (>60); Glucose 148 mg/dL (74-106); Sodium Level 140 mmol/L (136-145)
== END ==
LOC: OLS.ACH 05:00
PROVIDERS: PCP Internal Medicine; Visit Provider Internal Medicine
DX: E87.5 Hyperkalemia (principal)
CPT/HCPCS: 36415; 80048

== ENCOUNTER → 2023-05-28 | Outpatient (REF) | payer MEDICARE, SELFPAY ==
[2023-05-29 10:48] LABS: Bacteria 0 SEEN /hpf (None Seen); Mucous, Urine 0 SEEN /hpf (<or=2+); Red Blood Cells-Urine 0 SEEN /hpf (0-5); White Blood Cells 0 SEEN /hpf (0-5)
[2023-05-29 10:54] LABS: Color, Urine Yellow (Yellow); Glucose, Dipstick Normal (Normal); Ketone-Dipstick 5 mg/dl (Negative); Leukocyte Esterase-Dipstick Negative /ul (Negative); Nitrite-Dipstick Negative (Negative); Occult Blood-Urine Negative /ul (Negative); Protein-Dipstick 500 mg/dl (Negative); Urine Bilirubin Dipstick Negative (Negative); Urine Clarity Clear (Clear); Urine Urobilinogen Normal (Normal)
[2023-05-29 11:27] LABS: Squamous Epithelial Cells - UA 0-5 SEEN /hpf (5-10)
== END ==
LOC: OLS.ACH 15:00
PROVIDERS: PCP Internal Medicine; Referring Provider Internal Medicine; Visit Provider Internal Medicine
DX: Z87.440 Personal history of urinary (tract) infections (principal); Z79.899 Other long term (current) drug therapy
CPT/HCPCS: 81001; 87077; 87086; 87088; 87186

== ENCOUNTER → 2023-06-01 | Outpatient (REF) | payer MEDICARE, MEDICAID, SELFPAY ==
[2023-06-01 09:12] LABS: Potassium 5.5 mmol/L (3.5-5.1)
== END ==
LOC: OLS.ACH 05:00
PROVIDERS: PCP Internal Medicine; Visit Provider Internal Medicine
DX: E87.5 Hyperkalemia (principal)
CPT/HCPCS: 36415; 84132

== ENCOUNTER → 2023-06-04 | Outpatient (REF) | payer MEDICARE, MEDICAID, SELFPAY | LOC: OLS.ACH 05:00 | PROVIDERS: PCP Internal Medicine; Visit Provider Internal Medicine | DX: E87.5 Hyperkalemia (principal) | CPT/HCPCS: 36415; 84132 ==

== ENCOUNTER → 2023-06-07 | Outpatient (CLI) | payer MEDICARE, MEDICAID, SELFPAY ==
--- NOTE | 2023-06-07 11:38 | RAD_ITS ---
EXAM: XR ABDOMEN, 1 VIEW CLINICAL INDICATION: KIDNEY STONES TECHNIQUE: Frontal supine view of the abdomen/pelvis. COMPARISON: Renal ultrasound, 09/28/2022. FINDINGS: LOWER THORAX: No acute pathology. Cardiac pacer leads partially visualized. GASTROINTESTINAL TRACT: Mild to moderate amount of stool and gas within the colon. No evidence of bowel obstruction. ORGANS: Lucent centered calcifications in the right hemiabdomen, not discretely associated with the renal fossae. These are likely phleboliths. No organomegaly. BONES/JOINTS: Degenerative changes in the spine, pelvis, and hips. SOFT TISSUES: No acute pathology. VASCULATURE: Vascular calcifications. RAD/Abdomen Single View IMPRESSION: 1. No definite urolithiasis identified. 2. Mild to moderate amount of stool and gas within the colon. No evidence of bowel obstruction. Electronically Signed: Yosi Bedolla DO at 18:42 EDT ,
== END | disposition home or self-care (01) ==
PROVIDERS: PCP Internal Medicine; Referring Provider Urology; Visit Provider Urology
DX: N20.0 Calculus of kidney (principal)
CPT/HCPCS: 74018

== ENCOUNTER → 2023-06-11 | Outpatient (REF) | payer MEDICARE, SELFPAY ==
[2023-06-11 08:52] LABS: Hemoglobin A1c 6.8 % (3.8-5.6)
== END ==
LOC: OLS.ACH 05:00
PROVIDERS: PCP Internal Medicine; Visit Provider Internal Medicine
DX: E11.42 Type 2 diabetes mellitus with diabetic polyneuropathy (principal)
CPT/HCPCS: 36415; 83036

== ENCOUNTER → 2023-06-25 | Outpatient (REF) | payer MEDICARE, MEDICAID, SELFPAY ==
[2023-06-25 16:17] LABS: Bacteria 0 SEEN /hpf (None Seen); Mucous, Urine 0 SEEN /hpf (<or=2+); Red Blood Cells-Urine 0 SEEN /hpf (0-5); Squamous Epithelial Cells - UA 0 SEEN /hpf (5-10); White Blood Cells 0 SEEN /hpf (0-5)
[2023-06-25 16:21] LABS: Color, Urine Yellow (Yellow); Glucose, Dipstick Normal (Normal); Ketone-Dipstick Negative (Negative); Leukocyte Esterase-Dipstick Negative /ul (Negative); Nitrite-Dipstick Negative (Negative); Occult Blood-Urine Negative /ul (Negative); Protein-Dipstick 100 mg/dl (Negative); Specific Gravity, Urine 1.015 (1.002-1.030); Urine Bilirubin Dipstick Negative (Negative); Urine Clarity Clear (Clear); Urine Urobilinogen Normal (Normal)
== END ==
LOC: OLS.ACH 14:15
PROVIDERS: PCP Internal Medicine; Visit Provider Internal Medicine
DX: Z87.440 Personal history of urinary (tract) infections (principal); Z79.899 Other long term (current) drug therapy
CPT/HCPCS: 81001; 87086

== ENCOUNTER → 2023-07-05 | Outpatient (REF) | payer MEDICARE, MEDICAID, SELFPAY ==
[2023-07-05 10:22] LABS: Hematocrit 33.8 % (37-47); Hemoglobin 10.1 g/dL (12.0-15.0); Mean Corp Hgb Conc 29.9 g/dL (32-36); Mean Corpuscular Hgb 27.6 pg (27.0-32.0); Mean Corpuscular Volume 92.3 fL (81-99); Mean Platelet Vol. 10.8 fl (6.2-12.0); Platelet Count 202 K/mm3 (150-450); RBC Distribution Width CV 15.6 % (11.6-14.6); RBC Distribution Width SD 52.1 fl (35.1-43.9); Red Blood Count 3.66 M/mm3 (4.2-5.4); White Blood Count 7.1 K/mm3 (4.4-11.0)
[2023-07-05 10:39] LABS: Anion Gap 5 (5-15); BUN 27 mg/dL (7-18); BUN/Creat Ratio 30.1 RATIO (10-20); Chloride 108 mmol/L (98-107); EST Glomerular Filtration Rate 66 mL/min (>60); Est Glom Filt Rate - Afr Amer 80 mL/min (>60); Glucose 179 mg/dL (74-106); Potassium 5.1 mmol/L (3.5-5.1); Sodium Level 139 mmol/L (136-145)
== END ==
LOC: OLS.ACH 04:00
PROVIDERS: PCP Internal Medicine; Referring Provider Internal Medicine; Visit Provider Internal Medicine
DX: E11.42 Type 2 diabetes mellitus with diabetic polyneuropathy (principal); E46 Unspecified protein-calorie malnutrition; G93.40 Encephalopathy, unspecified
CPT/HCPCS: 36415; 80048; 85027

== ENCOUNTER → 2023-07-12 | Outpatient (REF) | payer MEDICARE, SELFPAY ==
[2023-07-12 09:07] LABS: Bacteria 0 SEEN /hpf (None Seen); Mucous, Urine 0 SEEN /hpf (<or=2+); Red Blood Cells-Urine 0 SEEN /hpf (0-5); Squamous Epithelial Cells - UA 0 SEEN /hpf (5-10); White Blood Cells 0 SEEN /hpf (0-5)
[2023-07-12 09:24] LABS: Color, Urine Yellow (Yellow); Glucose, Dipstick Normal (Normal); Ketone-Dipstick Negative (Negative); Leukocyte Esterase-Dipstick Negative /ul (Negative); Nitrite-Dipstick Negative (Negative); Occult Blood-Urine Negative /ul (Negative); Protein-Dipstick 100 mg/dl (Negative); Urine Bilirubin Dipstick Negative (Negative); Urine Clarity Clear (Clear); Urine Urobilinogen Normal (Normal); Urine pH 6.5 (5.0 - 8.0)
== END ==
LOC: OLS.ACH 05:00
PROVIDERS: PCP Internal Medicine; Visit Provider Internal Medicine
DX: Z01.818 Encounter for other preprocedural examination (principal); Z79.899 Other long term (current) drug therapy
CPT/HCPCS: 81001; 87086

== ENCOUNTER → 2023-07-14 | Outpatient (REF) | payer MEDICARE, MEDICAID, SELFPAY ==
[2023-07-14 10:40] LABS: Hematocrit 34.6 % (37-47); Hemoglobin 10.1 g/dL (12.0-15.0); Mean Corp Hgb Conc 29.2 g/dL (32-36); Mean Corpuscular Hgb 26.7 pg (27.0-32.0); Mean Corpuscular Volume 91.5 fL (81-99); Mean Platelet Vol. 11.1 fl (6.2-12.0); Platelet Count 176 K/mm3 (150-450); RBC Distribution Width CV 15.5 % (11.6-14.6); RBC Distribution Width SD 51.1 fl (35.1-43.9); Red Blood Count 3.78 M/mm3 (4.2-5.4); White Blood Count 6.4 K/mm3 (4.4-11.0)
[2023-07-14 11:18] LABS: ALB/GLOB Ratio 0.6 RATIO (0.9-2.4); AST(SGOT) 27 U/L (15-37); Alanine Aminotransfer ALT/SGPT < 6 U/L (13-56); Alkaline Phosphatase 62 U/L (45-117); Anion Gap 7 (5-15); BUN 16 mg/dL (7-18); Calcium,Total 8.4 mg/dL (8.5-10.1); Chloride 107 mmol/L (98-107); EST Glomerular Filtration Rate 58 mL/min (>60); Est Glom Filt Rate - Afr Amer 71 mL/min (>60); Globulin 5.2 g/dL (2.2-4.2); Glucose 238 mg/dL (74-106); Potassium 5.2 mmol/L (3.5-5.1); Protein, Total 8.2 g/dL (6.4-8.2); Sodium Level 137 mmol/L (136-145)
== END ==
LOC: OLS.ACH 05:00
PROVIDERS: PCP Internal Medicine; Visit Provider Internal Medicine
DX: E11.42 Type 2 diabetes mellitus with diabetic polyneuropathy (principal); I12.9 Hypertensive chronic kidney disease with stage 1 through stage 4 chronic kidney disease, or unspecified chronic kidney disease; N18.9 Chronic kidney disease, unspecified; D50.9 Iron deficiency anemia, unspecified; E11.22 Type 2 diabetes mellitus with diabetic chronic kidney disease
CPT/HCPCS: 36415; 80053; 85027

== ENCOUNTER → 2023-07-26 | Outpatient (REF) | payer MEDICARE, MEDICAID, SELFPAY ==
[2023-07-26 08:17] LABS: Hematocrit 34.5 % (37-47); Hemoglobin 10.4 g/dL (12.0-15.0); Mean Corp Hgb Conc 30.1 g/dL (32-36); Mean Corpuscular Hgb 26.6 pg (27.0-32.0); Mean Corpuscular Volume 88.2 fL (81-99); Mean Platelet Vol. 10.3 fl (6.2-12.0); Platelet Count 173 K/mm3 (150-450); RBC Distribution Width CV 15.8 % (11.6-14.6); RBC Distribution Width SD 50.4 fl (35.1-43.9); Red Blood Count 3.91 M/mm3 (4.2-5.4); White Blood Count 7.5 K/mm3 (4.4-11.0)
[2023-07-26 08:36] LABS: Anion Gap 6 (5-15); BUN 19 mg/dL (7-18); BUN/Creat Ratio 21.1 RATIO (10-20); Calcium,Total 8.8 mg/dL (8.5-10.1); Chloride 106 mmol/L (98-107); EST Glomerular Filtration Rate 65 mL/min (>60); Est Glom Filt Rate - Afr Amer 79 mL/min (>60); Glucose 168 mg/dL (74-106); Potassium 4.9 mmol/L (3.5-5.1); Sodium Level 134 mmol/L (136-145)
== END ==
LOC: OLS.ACH 04:00
PROVIDERS: PCP Internal Medicine; Referring Provider Internal Medicine; Visit Provider Internal Medicine
DX: N18.9 Chronic kidney disease, unspecified (principal)
CPT/HCPCS: 36415; 80048; 85027

== ENCOUNTER → 2023-07-27 | Outpatient (REF) | payer MEDICARE, MEDICAID, SELFPAY | LOC: OLS.ACH 05:00 | PROVIDERS: PCP Internal Medicine; Visit Provider Internal Medicine | DX: E87.5 Hyperkalemia (principal) | CPT/HCPCS: 36415; 84132 ==

== ENCOUNTER → 2023-08-09 | Outpatient (REF) | payer MEDICARE, MEDICAID, SELFPAY ==
[2023-08-09 08:34] LABS: Hemoglobin 9.6 g/dL (12.0-15.0); Mean Corp Hgb Conc 29.1 g/dL (32-36); Mean Corpuscular Hgb 26.8 pg (27.0-32.0); Mean Corpuscular Volume 92.2 fL (81-99); Mean Platelet Vol. 11.3 fl (6.2-12.0); Platelet Count 154 K/mm3 (150-450); RBC Distribution Width CV 15.8 % (11.6-14.6); RBC Distribution Width SD 52.8 fl (35.1-43.9); Red Blood Count 3.58 M/mm3 (4.2-5.4)
== END ==
LOC: OLS.ACH 04:00
PROVIDERS: PCP Internal Medicine; Visit Provider Internal Medicine
DX: N95.0 Postmenopausal bleeding (principal)
CPT/HCPCS: 36415; 85027

== ENCOUNTER → 2023-08-11 | Outpatient (REF) | payer MEDICARE, MEDICAID, SELFPAY ==
[2023-08-11 09:48] LABS: Hematocrit 31.1 % (37-47); Hemoglobin 9.1 g/dL (12.0-15.0); Mean Corp Hgb Conc 29.3 g/dL (32-36); Mean Corpuscular Hgb 27.1 pg (27.0-32.0); Mean Corpuscular Volume 92.6 fL (81-99); Mean Platelet Vol. 11.2 fl (6.2-12.0); Platelet Count 145 K/mm3 (150-450); RBC Distribution Width CV 15.9 % (11.6-14.6); RBC Distribution Width SD 53.1 fl (35.1-43.9); Red Blood Count 3.36 M/mm3 (4.2-5.4)
[2023-08-11 09:53] LABS: Anion Gap 7 (5-15); BUN 15 mg/dL (7-18); BUN/Creat Ratio 15.1 RATIO (10-20); Calcium,Total 8.6 mg/dL (8.5-10.1); Chloride 111 mmol/L (98-107); EST Glomerular Filtration Rate 58 mL/min (>60); Est Glom Filt Rate - Afr Amer 71 mL/min (>60); Glucose 173 mg/dL (74-106); Potassium 4.8 mmol/L (3.5-5.1); Sodium Level 140 mmol/L (136-145)
== END ==
LOC: OLS.ACH 05:00
PROVIDERS: PCP Internal Medicine; Visit Provider Internal Medicine
DX: N20.0 Calculus of kidney (principal); E11.51 Type 2 diabetes mellitus with diabetic peripheral angiopathy without gangrene; E11.22 Type 2 diabetes mellitus with diabetic chronic kidney disease; N18.9 Chronic kidney disease, unspecified
CPT/HCPCS: 36415; 80048; 85027

== ENCOUNTER → 2023-08-13 | Outpatient (REF) | payer MEDICARE, MEDICAID, SELFPAY ==
[2023-08-13 08:24] LABS: Bacteria 0 SEEN /hpf (None Seen); Mucous, Urine 0 SEEN /hpf (<or=2+)
[2023-08-13 08:43] LABS: Color, Urine Yellow (Yellow); Glucose, Dipstick 250 mg/dl (Normal); Ketone-Dipstick Negative (Negative); Leukocyte Esterase-Dipstick 100 /ul (Negative); Nitrite-Dipstick Negative (Negative); Occult Blood-Urine 250 /ul (Negative); Protein-Dipstick 500 mg/dl (Negative); Specific Gravity, Urine 1.015 (1.002-1.030); Urine Bilirubin Dipstick Negative (Negative); Urine Clarity Sl. Cloudy (Clear); Urine Urobilinogen Normal (Normal)
[2023-08-13 09:19] LABS: Red Blood Cells-Urine 50-100 SEEN /hpf (0-5); Squamous Epithelial Cells - UA 0-5 SEEN /hpf (5-10); White Blood Cells 25-50 SEEN /hpf (0-5)
== END ==
LOC: OLS.ACH 08:24
PROVIDERS: PCP Internal Medicine; Referring Provider Internal Medicine; Visit Provider Internal Medicine
DX: N20.0 Calculus of kidney (principal); Z87.440 Personal history of urinary (tract) infections; Z79.899 Other long term (current) drug therapy
CPT/HCPCS: 81001; 87077; 87086; 87088; 87186

== ENCOUNTER → 2023-08-16 | Outpatient (REF) | payer MEDICARE, MEDICAID, SELFPAY ==
[2023-08-16 08:24] LABS: Hematocrit 29.5 % (37-47); Mean Corp Hgb Conc 30.5 g/dL (32-36); Mean Corpuscular Hgb 27.4 pg (27.0-32.0); Mean Corpuscular Volume 89.9 fL (81-99); Mean Platelet Vol. 10.7 fl (6.2-12.0); Platelet Count 138 K/mm3 (150-450); RBC Distribution Width CV 15.9 % (11.6-14.6); Red Blood Count 3.28 M/mm3 (4.2-5.4); White Blood Count 5.4 K/mm3 (4.4-11.0)
[2023-08-16 10:19] LABS: Anion Gap 8 (5-15); BUN 14 mg/dL (7-18); BUN/Creat Ratio 16.4 RATIO (10-20); Calcium,Total 8.7 mg/dL (8.5-10.1); Chloride 111 mmol/L (98-107); Creatinine, Serum 0.86 mg/dL (0.55-1.02); EST Glomerular Filtration Rate 69 mL/min (>60); Est Glom Filt Rate - Afr Amer 84 mL/min (>60); Glucose 198 mg/dL (74-106); Potassium 4.9 mmol/L (3.5-5.1); Sodium Level 140 mmol/L (136-145)
== END ==
LOC: OLS.ACH 05:00
PROVIDERS: PCP Internal Medicine; Visit Provider Internal Medicine
DX: E11.42 Type 2 diabetes mellitus with diabetic polyneuropathy (principal); G20.A1 Parkinson's disease without dyskinesia, without mention of fluctuations; U07.1 COVID-19
CPT/HCPCS: 36415; 80048; 85027

== ENCOUNTER 2023-08-19 08:40 | Day surgery (SDC) | payer MEDICARE, MEDICAID, SELFPAY ==
[2023-08-19] VITALS (9 sets, daily range): BP systolic 149–187; BP diastolic 74–89; PULSE 60–64; RESP 14–18; TEMP 36.2–37.1; O2SAT 87–96; BMI 31.6
--- NOTE | 2023-08-19 08:52 | RAD_ITS ---
INDICATION: PREOP EXAMINATION/TECHNIQUE: X-RAY - XR Chest 2 Views COMPARISON: 11/13/2022 FINDINGS: LINES/DEVICES: Stable transvenous pacemaker. LUNGS: No consolidation, edema or effusion. No pneumothorax. MEDIASTINUM AND CARDIOVASCULAR STRUCTURES: Cardiac silhouette not enlarged. Central airways and mediastinal contour are unremarkable. BONES AND SOFT TISSUES: No acute changes. RAD/Chest PA and Lateral IMPRESSION: No radiographic evidence of acute cardiopulmonary disease. Electronically Signed: Saurabh Shi MD at 23:43 EST ,
--- NOTE | 2023-08-19 09:30 | PCM.OPRPT ---
Problems Associated Problem List Diagnoses (1) Kidney stone: Report of Operation Date of Procedure: 08/19/23 Pre-Operative Diagnosis: Left renal stone with recurrent UTIs Post-Operative Diagnosis: Same Surgery/Procedure Performed:: Cystoscopy with right ureteral stent insertion, right renal extracorporal shockwave lithotripsy Type of Anesthesia: General Description of Procedure: The patient is a 73-year-old female who has been having recurrent urinary tract infections and was found to have a large right renal stone. She now presents for definitive surgical intervention with cystoscopy, stent insertion and shockwave lithotripsy. Informed consent was obtained. The patient was taken to the operating room and placed on the operating room table. Anesthesia monitored the head, neck, airway, IV access and vital signs throughout the case. Once anesthesia was appropriately administered, the patient was placed into dorsolithotomy position was prepped and draped in usual sterile fashion. The bladder mucosa was visualized in its entirety revealing no evidence of mass, erythema or foreign body. The right ureteral orifice was intubated with a 0.035 Glidewire which advanced into the right renal pelvis. A 6 Chadian 22 cm JJ stent was placed over the wire with good curling in the renal pelvis as well as the urinary bladder. The cystoscope was removed after the bladder was emptied. The patient was repositioned on the table. Her stone was identified and 3000 shocks were applied to the stones, 3 were identified, with good fragmentation. At the conclusion of the case, the patient was awakened and taken to the recovery room in good condition. There were no complications during the procedure. Grafts/Implants Used: 6 x 22 JJ stent Complications None Admit VTE Documentation VTE Present on Admission: Yes VTE Mechan Device Prophylaxis: SCD's VTE Pharm Prophylaxis ordered?: Yes
--- NOTE | 2023-08-19 09:34 | DCINST_ITS ---
Discharge Instructions Diet Discharge Diet: No restrictions Activity Discharge Activity: Return to Normal Activity Dressing / Incision Call your doctor if you observe: Fever of 101 or Higher, Inability to urinate and Inability to have a bowel movement Follow Up Care Please Follow Up With: Marie Young MD When: The office will call to make arrangements for follow-up. Test Results: Test results from this visit will be discussed in further detail at your follow- up appointment, if applicable. Discharge Plan Admission Attending Provider: Marie Young Primary Care Provider: Hannah Riggs Consulting Providers: Royal Ellis Discharge Orders/Prescriptions Prescriptions: New ondansetron HCl [ondansetron HCl] 8 mg tablet 8 mg PO Q8H PRN PRN (Reason: Nausea) 7 Days Qty: 20 0RF oxycodone-acetaminophen [Percocet] 5-325 mg tablet 1 tab PO Q8H PRN (Reason: pain) 3 Days Qty: 10 0RF phenazopyridine [phenazopyridine] 100 mg tablet 100 mg PO TID PRN (Reason: Bladder Spasms) Qty: 30 3RF Continued allopurinol 100 mg tablet 100 mg PO DAILY metformin 500 mg tablet 1,000 mg PO BID aspirin [Adult Low Dose Aspirin] 81 mg tablet,delayed release (DR/EC) 81 mg PO DAILY Januvia 50 mg Tablet 100 mg PO DAILY Rx Instructions: with first meal acetaminophen 500 mg Tablet 1,000 mg PO Q6H PRN PRN (Reason: Pain Score 1-10) Qty: 0 0RF mirtazapine 15 mg tablet 30 mg PO QHS atorvastatin 20 mg tablet 20 mg PO QHS ascorbic acid (vitamin C) 500 mg Tablet 500 mg PO BREAKFAST Qty: 0 0RF amlodipine 10 mg tablet 5 mg PO QHS camphor-menthol 0.2-3.5 % gel 1 applic topical DAILY PRN (Reason: pain) Rx Instructions: rub in gently and completely alendronate 70 mg tablet 70 mg PO SA carbidopa-levodopa 10-100 mg tablet 1 tab PO TID citalopram 10 mg tablet 10 mg PO DAILY cranberry 400 mg capsule 400 mg PO TID Rx Instructions: administer with meals estradiol 0.01 % (0.1 mg/gram) cream 1 appful VAGINAL MO insulin glargine [Lantus Solostar U-100 Insulin] 100 unit/mL (3 mL) insulin pen 12 unit SUBCUT QHS insulin lispro 100 unit/mL insulin pen 3 unit subcut TID PRN (Reason: SLIDING SCALE) levetiracetam 250 mg tablet 250 mg PO BID loperamide 2 mg capsule 2 mg PO PRN PRN (Reason: loose stool) lactulose 10 gram/15 mL solution 30 ml PO DAILY lacosamide 150 mg tablet 150 mg PO BID Ultimate Mely Probiotic 30 billion cell capsule,delayed release(DR/EC) 1 cap PO DAILY polyethylene glycol 3350 17 gram Powder In Packet 17 g PO BID PRN (Reason: constipation) pregabalin 100 mg Capsule 150 mg PO BID Referrals / Follow Up: Hannah Riggs DO [Primary Care Provider] - Disposition Disposition (needs filled in before D/C Order can be placed): [facility]
[2023-08-19] MEDS: Lactated Ringers 1,000 ML 15 ML IV (09:39)
[2023-08-19 09:53] LABS: Bedside Glucose 198 mg/dL (74-106)
[2023-08-19] MEDS: Cefazolin 2 GM in 0.9% Normal Saline (100mL Bag) 100 ML IV (10:09)
--- NOTE | 2023-08-19 10:09 | HP.PCM_ITS ---
HPI - General General Date of Service: 08/19/23 Chief Complaint: Right renal stone HPI Narrative HERMINIA CARDONA, is a 73 F who presents for treatment of her right renal stone. Informed consent has been obtained. She is on antibiotics appropriate for her urine culture and her aspirin has been held. All questions regarding the procedure have been answered. [facility] Medical History (Updated 08/19/23 @ 10:[address] Marie Young MD) Anxiety Atrial fibrillation Breakthrough seizure Cardiology follow-up encounter Chronic kidney disease (CKD) Dietary restriction Dysuria Essential hypertension Heartburn History of echocardiogram History of edema HLD (hyperlipidemia) Hypertension Hypertensive emergency without congestive heart failure Hypertriglyceridemia Insulin dependent diabetes mellitus Junctional rhythm Kidney disease Kidney stone Lives in alf Non-smoker Obesity Pacemaker Parkinson's disease Paroxysmal atrial fibrillation Seizure Seizures Septic shock Stroke/cerebrovascular accident Syncope Tachy-maurizio syndrome Type 2 diabetes mellitus Uses wheelchair Vaginal bleeding Walker as ambulation aid Home Medications sitagliptin phosphate 50 mg tablet (Januvia) 100 mg PO DAILY Diabetes 11/19/21 [History Last Taken 11/18/21] acetaminophen 500 mg tablet 1,000 mg (2 x 500 mg) PO Q6H PRN PRN Pain Score 1-10 #0 tabs 12/10/21 [Rx Last Taken Unknown] mirtazapine 15 mg tablet 30 mg PO QHS Check with primary doctor 09/23/22 [History Last Taken Unknown] atorvastatin 20 mg tablet 20 mg PO QHS Cholesterol 09/29/22 [History Last Taken Unknown] ascorbic acid (vitamin C) 500 mg tablet 500 mg PO BREAKFAST #0 tabs 10/16/22 [Rx Last Taken Unknown] allopurinol 100 mg tablet 100 mg PO DAILY 12/10/22 [History Last Taken Unknown] amlodipine 10 mg tablet 5 mg PO QHS Check with primary doctor 12/10/22 [History Last Taken Unknown] aspirin 81 mg tablet,delayed release (Adult Low Dose Aspirin) 81 mg PO DAILY 12/10/22 [History Last Taken Unknown] metformin 500 mg tablet 1,000 mg PO BID 12/10/22 [History Last Taken Unknown] Lactobacillus-Bifidobacterium 30 billion cell capsule,delayed release (Ultimate Mely Probiotic) 1 cap PO DAILY 06/15/23 [History Last Taken Unknown] alendronate 70 mg tablet 70 mg PO SA 06/15/23 [History Last Taken Unknown] camphor-menthol 0.2 %-3.5 % topical gel 1 applic topical DAILY PRN pain 06/15/23 [History Last Taken Unknown] carbidopa 10 mg-levodopa 100 mg tablet 1 tab PO TID 06/15/23 [History Last Taken Unknown] citalopram 10 mg tablet 10 mg PO DAILY 06/15/23 [History Last Taken Unknown] cranberry 400 mg capsule 400 mg PO TID 06/15/23 [History Last Taken Unknown] estradiol 0.01% (0.1 mg/gram) vaginal cream 1 appful vaginal MO 06/15/23 [History Last Taken Unknown] insulin glargine 100 unit/mL (3 mL) subcutaneous pen (Lantus Solostar U-100 Insulin) 12 unit subcut QHS 06/15/23 [History Last Taken Unknown] insulin lispro 100 unit/mL subcutaneous pen 3 unit subcut TID PRN SLIDING SCALE 06/15/23 [History Last Taken Unknown] lacosamide 150 mg tablet 150 mg PO BID 06/15/23 [History Last Taken Unknown] lactulose 10 gram/15 mL oral solution 30 ml PO DAILY 06/15/23 [History Last Taken Unknown] levetiracetam 250 mg tablet 250 mg PO BID 06/15/23 [History Last Taken Unknown] loperamide 2 mg capsule 2 mg PO PRN PRN loose stool 06/15/23 [History Last Taken Unknown] polyethylene glycol 3350 17 gram oral powder packet 17 g PO BID PRN constipation 06/15/23 [History Last Taken Unknown] pregabalin 100 mg capsule 150 mg PO BID Nerve Pain 06/15/23 [History Last Taken Unknown] Allergy/AdvReac Type Severity Reaction Status Date / Time amoxicillin [From Augmentin] Allergy Rash Verified 06/15/23 15:43 clavulanic acid Allergy Rash Verified 06/15/23 15:43 [From Augmentin] escitalopram [From Lexapro] Allergy Rash Verified 06/15/23 15:43 shellfish derived Allergy Unknown Verified 06/15/23 15:43 hydroxychloroquine AdvReac Severe Unknown Verified 06/15/23 15:43 [From Plaquenil] house dust AdvReac NEEDS Verified 06/15/23 15:43 FOLLOW-UP perfume AdvReac Unknown Verified 06/15/23 15:43 pineapple AdvReac Rash Verified 06/15/23 15:43 quinine AdvReac Unknown Verified 06/15/23 15:43 strawberry AdvReac Rash Verified 06/15/23 15:43 Sulfa (Sulfonamide AdvReac Unknown Verified 06/15/23 15:43 Antibiotics) Family History Brother Heart disease Hx CABG Hypertension Diabetes Mother Hypertension Surgical History History of breast surgery History of hysterectomy History of permanent cardiac pacemaker placement (11/15/17) Social History household members: spouse Smoking Status: Never smoker alcohol intake: never substance use type: does not use caffeine: No what type of physical activity do you participate in: none seatbelt use: always do you feel safe at home: Yes ROS Constitutional Constitutional: Denies chills or fever(s) Eyes Eyes: Reports systems reviewed and no addt'l complaints, except as documented ENT HEENT: Reports systems reviewed and no addt'l complaints, except as documented Cardiovascular Cardiovascular: Denies chest pain or dyspnea at rest Respiratory/Chest Respiratory/Chest: Denies chest tightness, cough or dyspnea Gastrointestinal Gastrointestinal: Denies abdominal pain, nausea or vomiting Genitourinary Genitourinary: Reports urinary incontinence; Denies urinary urgency Musculoskeletal Musculoskeletal: Reports systems reviewed and no addt'l complaints, except as documented Integumentary Integumentary: Reports systems reviewed and no addt'l complaints, except as documented Neurologic Neurologic: Reports systems reviewed and no addt'l complaints, except as documented Psychiatric Psychiatric: Reports systems reviewed and no addt'l complaints, except as documented Endocrine Endocrinology: Reports systems reviewed and no addt'l complaints, except as documented Hematologic/Lymphatic Hematologic/Lymphatic: Reports systems reviewed and no addt'l complaints, except as documented Allergic/Immunologic Allergic/Immunologic: Reports systems reviewed and no addt'l complaints, except as documented Vital Signs Vital Signs Vital Signs: 08/19/23 09:34 08/19/23 09:34 Temperature 98.7 F Temperature Source Temporal Pulse Rate 64 Respiratory Rate 16 Respiratory Pattern Normal Blood Pressure 187/74 H Blood Pressure Mean 111 Blood Pressure Source Monitor Blood Pressure Position Semi-Fowlers Blood Pressure Location Right Arm Pulse Ox 96 Oxygen Delivery Method Room Air Weight Weight: 78.3 kg Body Mass Index (BMI) 31.6 Physical Exam Const alert, oriented x3 and no apparent distress HEENT normocephalic, head/scalp atraumatic, hearing grossly normal bilaterally, external ears normal, external nose normal and moist oral mucous membranes Eyes General Eye: normal appearance of both eyes Neck supple General: normal visual inspection Lymph Lymphatic: no lymphedema noted Chest inspection of chest normal Resp normal respiratory effort, normal air movement and no retractions Cardio regular rate GI normal to inspection, nondistended, normoactive bowel sounds no CVA tenderness Back/Spine no CVA tenderness Extremity normal to inspection Skin no rashes or lesions noted, no wounds, no jaundice, no petechiae and no mottling Neuro oriented x3 and CN's II-XII intact bilaterally Psych mental status grossly normal Results Lab / Micro Data Labs: Laboratory Results - last 24 hr 08/19/23 09:28: POC Glucose 198 H Assessment & Plan Assessment/Plan (1) Kidney stone: PLAN: Plan Proceed with cystoscopy with right ureteral stent insertion, right renal extracorporal shockwave lithotripsy
== END 2023-08-19 12:30 | disposition skilled nursing facility (03) ==
LOC: SDC 08:49 → AC 08:53
PROVIDERS: PCP Internal Medicine; Referring Provider Internal Medicine; Visit Provider Urology
PROC: (CPT 50590; principal; 2023-08-19 10:00)
DX: N20.0 Calculus of kidney (principal); E11.22 Type 2 diabetes mellitus with diabetic chronic kidney disease; I48.0 Paroxysmal atrial fibrillation; Z79.4 Long term (current) use of insulin; I12.9 Hypertensive chronic kidney disease with stage 1 through stage 4 chronic kidney disease, or unspecified chronic kidney disease; E78.5 Hyperlipidemia, unspecified; N18.9 Chronic kidney disease, unspecified; N39.0 Urinary tract infection, site not specified; Z79.82 Long term (current) use of aspirin; Z95.0 Presence of cardiac pacemaker; Z90.710 Acquired absence of both cervix and uterus; Z86.73 Personal history of transient ischemic attack (TIA), and cerebral infarction without residual deficits; G20.A1 Parkinson's disease without dyskinesia, without mention of fluctuations
CPT/HCPCS: 50590; 00873; J7120; 71046; 82962; C2625; J2405

== ENCOUNTER → 2023-08-24 | Outpatient (REF) | payer MEDICARE, MEDICAID, SELFPAY | LOC: OLS.ACH 05:00 | PROVIDERS: PCP Internal Medicine; Visit Provider Internal Medicine | DX: E87.5 Hyperkalemia (principal) | CPT/HCPCS: 36415; 84132 ==

== ENCOUNTER → 2023-09-01 | Outpatient (REF) | payer MEDICARE, MEDICAID, SELFPAY ==
[2023-09-01 09:23] LABS: Bacteria 0 SEEN /hpf (None Seen); Mucous, Urine 0 SEEN /hpf (<or=2+); White Blood Cells 0 SEEN /hpf (0-5)
[2023-09-01 09:51] LABS: Hematocrit 28.6 % (37-47); Hemoglobin 9.4 g/dL (12.0-15.0); Mean Corp Hgb Conc 32.9 g/dL (32-36); Mean Corpuscular Hgb 30.1 pg (27.0-32.0); Mean Corpuscular Volume 91.7 fL (81-99); Mean Platelet Vol. 10.8 fl (6.2-12.0); Platelet Count 170 K/mm3 (150-450); RBC Distribution Width CV 16.2 % (11.6-14.6); RBC Distribution Width SD 51.8 fl (35.1-43.9); Red Blood Count 3.12 M/mm3 (4.2-5.4); White Blood Count 5.1 K/mm3 (4.4-11.0)
[2023-09-01 10:02] LABS: Anion Gap 2 (5-15); BUN 19 mg/dL (7-18); BUN/Creat Ratio 21.1 RATIO (10-20); Calcium,Total 8.6 mg/dL (8.5-10.1); Chloride 110 mmol/L (98-107); EST Glomerular Filtration Rate 65 mL/min (>60); Est Glom Filt Rate - Afr Amer 79 mL/min (>60); Glucose 244 mg/dL (74-106); Potassium 5.1 mmol/L (3.5-5.1); Sodium Level 139 mmol/L (136-145)
[2023-09-01 10:22] LABS: Color, Urine Yellow (Yellow); Glucose, Dipstick 1000 mg/dl (Normal); Ketone-Dipstick Negative (Negative); Leukocyte Esterase-Dipstick Negative /ul (Negative); Nitrite-Dipstick Negative (Negative); Occult Blood-Urine 50 /ul (Negative); Protein-Dipstick 500 mg/dl (Negative); Specific Gravity, Urine 1.015 (1.002-1.030); Urine Bilirubin Dipstick Negative (Negative); Urine Clarity Clear (Clear); Urine Urobilinogen Normal (Normal)
[2023-09-01 10:51] LABS: Red Blood Cells-Urine 0-5 SEEN /hpf (0-5); Squamous Epithelial Cells - UA 0-5 SEEN /hpf (5-10)
== END ==
LOC: OLS.ACH 04:00
PROVIDERS: PCP Internal Medicine; Referring Provider Internal Medicine; Visit Provider Internal Medicine
DX: E11.42 Type 2 diabetes mellitus with diabetic polyneuropathy (principal); N39.0 Urinary tract infection, site not specified
CPT/HCPCS: 36415; 80048; 81001; 85027; 87086

== ENCOUNTER → 2023-09-13 | Outpatient (REF) | payer MEDICARE, MEDICAID, SELFPAY ==
[2023-09-13 07:45] LABS: Mucous, Urine 0 SEEN /hpf (<or=2+); Red Blood Cells-Urine 0 SEEN /hpf (0-5)
[2023-09-13 07:53] LABS: Color, Urine Yellow (Yellow); Glucose, Dipstick 250 mg/dl (Normal); Ketone-Dipstick 5 mg/dl (Negative); Leukocyte Esterase-Dipstick 25 /ul (Negative); Nitrite-Dipstick Negative (Negative); Occult Blood-Urine 25 /ul (Negative); Protein-Dipstick 500 mg/dl (Negative); Urine Bilirubin Dipstick Negative (Negative); Urine Clarity Sl. Cloudy (Clear); Urine Urobilinogen Normal (Normal)
[2023-09-13 07:58] LABS: Hematocrit 34.1 % (37-47); Hemoglobin 10.3 g/dL (12.0-15.0); Mean Corp Hgb Conc 30.2 g/dL (32-36); Mean Corpuscular Hgb 27.4 pg (27.0-32.0); Mean Corpuscular Volume 90.7 fL (81-99); Mean Platelet Vol. 10.7 fl (6.2-12.0); Platelet Count 168 K/mm3 (150-450); RBC Distribution Width SD 52.2 fl (35.1-43.9); Red Blood Count 3.76 M/mm3 (4.2-5.4); White Blood Count 10.8 K/mm3 (4.4-11.0)
[2023-09-13 07:59] LABS: White Blood Cells 10-25 SEEN /hpf (0-5)
[2023-09-13 08:00] LABS: Bacteria 1+ /hpf (None Seen); Squamous Epithelial Cells - UA 0-5 SEEN /hpf (5-10)
[2023-09-13 11:14] LABS: Anion Gap 8 (5-15); BUN 24 mg/dL (7-18); BUN/Creat Ratio 18.9 RATIO (10-20); Calcium,Total 8.7 mg/dL (8.5-10.1); Chloride 109 mmol/L (98-107); Creatinine, Serum 1.27 mg/dL (0.55-1.02); EST Glomerular Filtration Rate 44 mL/min (>60); Est Glom Filt Rate - Afr Amer 53 mL/min (>60); Glucose 309 mg/dL (74-106); Potassium 5.3 mmol/L (3.5-5.1); Sodium Level 136 mmol/L (136-145)
[2023-09-13 20:33] LABS: Hemoglobin A1c < 3.8 % (3.8-5.6)
== END ==
LOC: OLS.ACH 05:00
PROVIDERS: PCP Internal Medicine; Visit Provider Internal Medicine
DX: N32.81 Overactive bladder (principal); N18.9 Chronic kidney disease, unspecified; D50.9 Iron deficiency anemia, unspecified; E11.22 Type 2 diabetes mellitus with diabetic chronic kidney disease; E11.42 Type 2 diabetes mellitus with diabetic polyneuropathy; Z79.899 Other long term (current) drug therapy
CPT/HCPCS: 36415; 80048; 81001; 83036; 85027; 87077; 87086; 87088; 87186

== ENCOUNTER → 2023-09-21 | Outpatient (CLI) | payer MEDICARE, MEDICAID, SELFPAY ==
--- NOTE | 2023-09-21 11:11 | RAD_ITS ---
STUDY: X-RAY - ABDOMEN/PELVIS REASON FOR EXAM: Female, 73 years old. kidney stones TECHNIQUE: Single AP view of the abdomen / pelvis. COMPARISON: 06/07/2023. FINDINGS: Right ureteral stent seen in satisfactory location. Several small calcifications are seen consistent with stones in the lower pole of the right kidney. No definite stones along the course of the right ureter. There is an unremarkable bowel gas pattern. There is no demonstrated free abdominal air. The visualized liver, spleen and kidneys are grossly normal in size and morphology. Normal soft tissue structures. There are diffuse degenerative changes of the visualized lumbar spine. RAD/Abdomen Single View IMPRESSION: Right ureteral stent in grossly satisfactory position. Several small stones in position compatible with the lower pole of the right kidney. Electronically Signed: Greg Leiva MD at 17:05 EST ,
== END | disposition home or self-care (01) ==
LOC: MTRAD 11:05
PROVIDERS: PCP Internal Medicine; Referring Provider Urology; Visit Provider Urology
DX: N20.0 Calculus of kidney (principal)
CPT/HCPCS: 74018

== ENCOUNTER → 2023-09-21 | Outpatient (REF) | payer MEDICARE, MEDICAID, SELFPAY ==
[2023-09-21 09:18] LABS: Hematocrit 27.9 % (37-47); Hemoglobin 8.4 g/dL (12.0-15.0); Mean Corp Hgb Conc 30.1 g/dL (32-36); Mean Corpuscular Volume 89.7 fL (81-99); Platelet Count 255 K/mm3 (150-450); RBC Distribution Width CV 15.4 % (11.6-14.6); RBC Distribution Width SD 48.7 fl (35.1-43.9); Red Blood Count 3.11 M/mm3 (4.2-5.4); White Blood Count 7.4 K/mm3 (4.4-11.0)
[2023-09-21 11:11] LABS: ALB/GLOB Ratio 0.6 RATIO (0.9-2.4); AST(SGOT) 29 U/L (15-37); Alanine Aminotransfer ALT/SGPT < 6 U/L (13-56); Albumin, Serum 2.7 g/dL (3.2-5.0); Alkaline Phosphatase 72 U/L (45-117); Anion Gap 5 (5-15); BUN 28 mg/dL (7-18); BUN/Creat Ratio 31.7 RATIO (10-20); Calcium,Total 8.9 mg/dL (8.5-10.1); Chloride 109 mmol/L (98-107); Creatinine, Serum 0.88 mg/dL (0.55-1.02); EST Glomerular Filtration Rate 67 mL/min (>60); Est Glom Filt Rate - Afr Amer 81 mL/min (>60); Globulin 4.6 g/dL (2.2-4.2); Glucose 205 mg/dL (74-106); Potassium 4.8 mmol/L (3.5-5.1); Protein, Total 7.3 g/dL (6.4-8.2); Sodium Level 139 mmol/L (136-145)
== END ==
LOC: OLS.ACH 05:00
PROVIDERS: PCP Internal Medicine; Visit Provider Internal Medicine
DX: E11.42 Type 2 diabetes mellitus with diabetic polyneuropathy (principal); G93.40 Encephalopathy, unspecified
CPT/HCPCS: 36415; 80053; 85027

== ENCOUNTER → 2023-09-23 | Outpatient (REF) | payer MEDICARE, MEDICAID, SELFPAY ==
[2023-09-23 08:56] LABS: Hematocrit 27.5 % (37-47); Mean Corp Hgb Conc 29.1 g/dL (32-36); Mean Corpuscular Hgb 26.5 pg (27.0-32.0); Mean Corpuscular Volume 91.1 fL (81-99); Mean Platelet Vol. 10.7 fl (6.2-12.0); Platelet Count 249 K/mm3 (150-450); RBC Distribution Width CV 15.8 % (11.6-14.6); RBC Distribution Width SD 51.8 fl (35.1-43.9); Red Blood Count 3.02 M/mm3 (4.2-5.4); White Blood Count 6.4 K/mm3 (4.4-11.0)
[2023-09-23 09:22] LABS: Vitamin B12 295 pg/mL (211-911)
[2023-09-23 09:29] LABS: ALB/GLOB Ratio 0.6 RATIO (0.9-2.4); AST(SGOT) 36 U/L (15-37); Alanine Aminotransfer ALT/SGPT < 6 U/L (13-56); Albumin, Serum 2.6 g/dL (3.2-5.0); Alkaline Phosphatase 71 U/L (45-117); Anion Gap 2 (5-15); BUN 25 mg/dL (7-18); BUN/Creat Ratio 28.9 RATIO (10-20); Calcium,Total 8.7 mg/dL (8.5-10.1); Chloride 110 mmol/L (98-107); Creatinine, Serum 0.86 mg/dL (0.55-1.02); EST Glomerular Filtration Rate 69 mL/min (>60); Est Glom Filt Rate - Afr Amer 83 mL/min (>60); Ferritin 132 ng/mL (8-252); Globulin 4.6 g/dL (2.2-4.2); Glucose 183 mg/dL (74-106); Iron 43 ug/dL (50-170); Iron Binding Capacity,Total 297 ug/dL (250-450); PERCENT IRON SATURATION 14.5 % (15.0-55.0); Protein, Total 7.2 g/dL (6.4-8.2); Sodium Level 137 mmol/L (136-145); Uric Acid 6.4 mg/dL (2.6-6.0)
[2023-09-23 11:09] LABS: Hemoglobin A1c 8.1 % (3.8-5.6)
== END ==
LOC: OLS.ACH 05:00
PROVIDERS: PCP Internal Medicine; Visit Provider Internal Medicine
DX: D50.9 Iron deficiency anemia, unspecified (principal); E87.5 Hyperkalemia; N18.9 Chronic kidney disease, unspecified; M10.9 Gout, unspecified; E11.22 Type 2 diabetes mellitus with diabetic chronic kidney disease; E11.42 Type 2 diabetes mellitus with diabetic polyneuropathy
CPT/HCPCS: 36415; 80053; 82607; 82728; 82746; 83036; 83540; 83550; 84550; 85027

== ENCOUNTER → 2023-09-24 | Outpatient (REF) | payer MEDICARE, MEDICAID, SELFPAY ==
[2023-09-24 10:11] LABS: Hematocrit 26.1 % (37-47); Hemoglobin 7.7 g/dL (12.0-15.0)
== END ==
LOC: OLS.ACH 05:00
PROVIDERS: PCP Internal Medicine; Visit Provider Internal Medicine
DX: D50.9 Iron deficiency anemia, unspecified (principal)
CPT/HCPCS: 36415; 85014; 85018

== ENCOUNTER → 2023-09-27 | Outpatient (REF) | payer MEDICARE, MEDICAID, SELFPAY ==
[2023-09-27 09:47] LABS: Hematocrit 26.4 % (37-47)
[2023-09-29 11:09] LABS: Sickle Hgb Solubility Negative (Negative)
== END ==
LOC: OLS.ACH 05:00
PROVIDERS: PCP Internal Medicine; Visit Provider Internal Medicine
DX: D50.0 Iron deficiency anemia secondary to blood loss (chronic) (principal)
CPT/HCPCS: 36415; 85014; 85018; 85660

== ENCOUNTER → 2023-10-04 | Outpatient (REF) | payer MEDICARE, MEDICAID, SELFPAY ==
[2023-10-04 09:02] LABS: Hematocrit 28.5 % (37-47); Hemoglobin 8.5 g/dL (12.0-15.0); Mean Corp Hgb Conc 29.8 g/dL (32-36); Mean Corpuscular Hgb 27.6 pg (27.0-32.0); Mean Corpuscular Volume 92.5 fL (81-99); Mean Platelet Vol. 10.9 fl (6.2-12.0); Platelet Count 149 K/mm3 (150-450); RBC Distribution Width CV 18.4 % (11.6-14.6); RBC Distribution Width SD 59.5 fl (35.1-43.9); Red Blood Count 3.08 M/mm3 (4.2-5.4); White Blood Count 5.4 K/mm3 (4.4-11.0)
[2023-10-04 09:15] LABS: Bacteria 0 SEEN /hpf (None Seen); Mucous, Urine 0 SEEN /hpf (<or=2+)
[2023-10-04 09:19] LABS: Anion Gap 5 (5-15); BUN 20 mg/dL (7-18); BUN/Creat Ratio 18.5 RATIO (10-20); Calcium,Total 9.5 mg/dL (8.5-10.1); Chloride 111 mmol/L (98-107); Creatinine, Serum 1.08 mg/dL (0.55-1.02); EST Glomerular Filtration Rate 53 mL/min (>60); Est Glom Filt Rate - Afr Amer 64 mL/min (>60); Glucose 272 mg/dL (74-106); Potassium 5.7 mmol/L (3.5-5.1); Sodium Level 136 mmol/L (136-145)
[2023-10-04 09:41] LABS: Color, Urine Yellow (Yellow); Glucose, Dipstick 1000 mg/dl (Normal); Ketone-Dipstick Negative (Negative); Leukocyte Esterase-Dipstick 25 /ul (Negative); Nitrite-Dipstick Negative (Negative); Occult Blood-Urine 50 /ul (Negative); Protein-Dipstick 500 mg/dl (Negative); Urine Bilirubin Dipstick Negative (Negative); Urine Clarity Clear (Clear); Urine Urobilinogen Normal (Normal); Urine pH 6.5 (5.0 - 8.0)
[2023-10-04 09:50] LABS: Red Blood Cells-Urine 0-5 SEEN /hpf (0-5); Squamous Epithelial Cells - UA 0-5 SEEN /hpf (5-10); White Blood Cells 0-5 SEEN /hpf (0-5)
== END ==
LOC: OLS.ACH 05:00
PROVIDERS: PCP Internal Medicine; Visit Provider Internal Medicine
DX: D50.9 Iron deficiency anemia, unspecified (principal); N39.0 Urinary tract infection, site not specified; E11.42 Type 2 diabetes mellitus with diabetic polyneuropathy
CPT/HCPCS: 36415; 80048; 81001; 85027; 87077; 87086; 87088; 87186

== ENCOUNTER → 2023-10-05 | Outpatient (REF) | payer MEDICARE, MEDICAID, SELFPAY ==
[2023-10-05 10:13] LABS: Potassium 5.3 mmol/L (3.5-5.1)
== END ==
LOC: OLS.ACH 04:00
PROVIDERS: PCP Internal Medicine; Referring Provider Internal Medicine; Visit Provider Internal Medicine
DX: R79.89 Other specified abnormal findings of blood chemistry (principal); E87.5 Hyperkalemia
CPT/HCPCS: 36415; 84132

== ENCOUNTER → 2023-10-06 | Outpatient (REF) | payer MEDICARE, MEDICAID, SELFPAY ==
[2023-10-06 10:44] LABS: Potassium 5.2 mmol/L (3.5-5.1)
== END ==
LOC: OLS.ACH 05:00
PROVIDERS: PCP Internal Medicine; Visit Provider Internal Medicine
DX: E87.5 Hyperkalemia (principal)
CPT/HCPCS: 36415; 84132

== ENCOUNTER → 2023-10-08 | Outpatient (REF) | payer MEDICARE, MEDICAID, SELFPAY ==
[2023-10-08 07:57] LABS: Potassium 5.4 mmol/L (3.5-5.1)
== END ==
LOC: OLS.ACH 05:00
PROVIDERS: PCP Internal Medicine; Visit Provider Internal Medicine
DX: E87.5 Hyperkalemia (principal)
CPT/HCPCS: 36415; 84132

== ENCOUNTER → 2023-10-11 | Outpatient (REF) | payer MEDICARE, MEDICAID, SELFPAY ==
[2023-10-11 10:40] LABS: Potassium 4.9 mmol/L (3.5-5.1)
== END ==
LOC: OLS.ACH 05:00
PROVIDERS: PCP Internal Medicine; Visit Provider Internal Medicine
DX: E87.5 Hyperkalemia (principal)
CPT/HCPCS: 36415; 84132

== ENCOUNTER → 2023-10-15 | Outpatient (REF) | payer MEDICARE, MEDICAID, SELFPAY ==
[2023-10-15 09:27] LABS: Potassium 5.6 mmol/L (3.5-5.1)
[2023-10-15 09:37] LABS: Red Blood Cells-Urine 0 SEEN /hpf (0-5)
[2023-10-15 09:54] LABS: Color, Urine Yellow (Yellow); Glucose, Dipstick Normal (Normal); Ketone-Dipstick 5 mg/dl (Negative); Leukocyte Esterase-Dipstick 500 /ul (Negative); Nitrite-Dipstick Negative (Negative); Occult Blood-Urine Negative /ul (Negative); Protein-Dipstick 100 mg/dl (Negative); Specific Gravity, Urine 1.025 (1.002-1.030); Urine Bilirubin Dipstick Negative (Negative); Urine Clarity Sl. Cloudy (Clear); Urine Urobilinogen Normal (Normal)
[2023-10-15 10:17] LABS: Bacteria RARE /hpf (None Seen); Mucous, Urine 1+ /hpf (<or=2+); Squamous Epithelial Cells - UA 5-10 SEEN /hpf (5-10); White Blood Cells 10-25 SEEN /hpf (0-5)
== END ==
LOC: OLS.ACH 05:00
PROVIDERS: PCP Internal Medicine; Visit Provider Internal Medicine
DX: R33.9 Retention of urine, unspecified (principal); R32 Unspecified urinary incontinence; Z01.818 Encounter for other preprocedural examination; E87.5 Hyperkalemia
CPT/HCPCS: 36415; 81001; 84132; 87077; 87086; 87088; 87186

== ENCOUNTER → 2023-10-18 | Outpatient (REF) | payer MEDICARE, MEDICAID, SELFPAY | LOC: OLS.ACH 05:00 | PROVIDERS: PCP Internal Medicine; Visit Provider Internal Medicine | DX: E87.5 Hyperkalemia (principal) | CPT/HCPCS: 36415; 84132 ==

== ENCOUNTER → 2023-10-25 | Outpatient (REF) | payer MEDICARE, MEDICAID, SELFPAY ==
[2023-10-25 08:13] LABS: Hematocrit 31.6 % (37-47); Hemoglobin 9.5 g/dL (12.0-15.0); Mean Corp Hgb Conc 30.1 g/dL (32-36); Mean Corpuscular Hgb 27.5 pg (27.0-32.0); Mean Corpuscular Volume 91.6 fL (81-99); Mean Platelet Vol. 11.4 fl (6.2-12.0); Platelet Count 155 K/mm3 (150-450); RBC Distribution Width CV 15.9 % (11.6-14.6); RBC Distribution Width SD 52.6 fl (35.1-43.9); Red Blood Count 3.45 M/mm3 (4.2-5.4); White Blood Count 4.3 K/mm3 (4.4-11.0)
[2023-10-25 08:46] LABS: ALB/GLOB Ratio 0.6 RATIO (0.9-2.4); AST(SGOT) 63 U/L (15-37); Alanine Aminotransfer ALT/SGPT < 6 U/L (13-56); Albumin, Serum 2.5 g/dL (3.2-5.0); Alkaline Phosphatase 62 U/L (45-117); Anion Gap 3 (5-15); BUN 33 mg/dL (7-18); BUN/Creat Ratio 29.2 RATIO (10-20); Calcium,Total 9.4 mg/dL (8.5-10.1); Chloride 113 mmol/L (98-107); Creatinine, Serum 1.13 mg/dL (0.55-1.02); EST Glomerular Filtration Rate 50 mL/min (>60); Est Glom Filt Rate - Afr Amer 61 mL/min (>60); Globulin 4.3 g/dL (2.2-4.2); Glucose 167 mg/dL (74-106); Potassium 4.6 mmol/L (3.5-5.1); Protein, Total 6.8 g/dL (6.4-8.2); Sodium Level 140 mmol/L (136-145)
== END ==
LOC: OLS.ACH 05:00
PROVIDERS: PCP Internal Medicine; Visit Provider Internal Medicine
DX: E87.5 Hyperkalemia (principal); I12.9 Hypertensive chronic kidney disease with stage 1 through stage 4 chronic kidney disease, or unspecified chronic kidney disease; E11.51 Type 2 diabetes mellitus with diabetic peripheral angiopathy without gangrene
CPT/HCPCS: 36415; 80053; 85027

== ENCOUNTER → 2023-11-01 | Outpatient (REF) | payer MEDICARE, MEDICAID, SELFPAY ==
[2023-11-01 08:29] LABS: Hematocrit 30.4 % (37-47); Hemoglobin 9.1 g/dL (12.0-15.0); Mean Corp Hgb Conc 29.9 g/dL (32-36); Mean Corpuscular Hgb 26.8 pg (27.0-32.0); Mean Corpuscular Volume 89.7 fL (81-99); Mean Platelet Vol. 10.2 fl (6.2-12.0); Platelet Count 203 K/mm3 (150-450); RBC Distribution Width CV 15.6 % (11.6-14.6); RBC Distribution Width SD 51.1 fl (35.1-43.9); Red Blood Count 3.39 M/mm3 (4.2-5.4); White Blood Count 6.3 K/mm3 (4.4-11.0)
[2023-11-01 08:48] LABS: Anion Gap 2 (5-15); BUN 18 mg/dL (7-18); BUN/Creat Ratio 21.2 RATIO (10-20); Calcium,Total 8.5 mg/dL (8.5-10.1); Chloride 113 mmol/L (98-107); Creatinine, Serum 0.85 mg/dL (0.55-1.02); EST Glomerular Filtration Rate 70 mL/min (>60); Est Glom Filt Rate - Afr Amer 85 mL/min (>60); Glucose 149 mg/dL (74-106); Potassium 4.8 mmol/L (3.5-5.1); Sodium Level 139 mmol/L (136-145)
== END ==
LOC: OLS.ACH 04:00
PROVIDERS: PCP Internal Medicine; Referring Provider Internal Medicine; Visit Provider Internal Medicine
DX: E87.5 Hyperkalemia (principal); D50.9 Iron deficiency anemia, unspecified
CPT/HCPCS: 36415; 80048; 85027

== ENCOUNTER → 2023-12-13 05:00 | Outpatient (REF) | payer MEDICARE, MEDICAID, SELFPAY ==
[2023-12-13 08:59] LABS: Absolute Lymphocyte Count 2.71 X10^3/uL (0.83-4.51); Absolute Neutrophil Count 3.2 X10^3/uL (2.0-7.7); Basophil# 0.06 X10^3/uL; Basophil% 0.8 % (0-1); Eosinophil# 0.49 X10^3/uL; Eosinophils% 6.8 % (0-5); Hematocrit 31.5 % (37-47); Hemoglobin 9.1 g/dL (12.0-15.0); Lymphocyte # 2.71 X10^3/ul (0.83-4.51); Lymphocyte % 37.4 % (19-41); Mean Corp Hgb Conc 28.9 g/dL (32-36); Mean Corpuscular Volume 93.5 fL (81-99); Mean Platelet Vol. 11.1 fl (6.2-12.0); Monocyte# 0.74 X10^3/uL; Monocyte% 10.2 % (0-10); NRBC Flagged by Analyzer 0 % (0-5); Neutrophil # 3.18 X10^3/uL (2.7-7.7); POSITIVE COUNT YES; Platelet Count 167 K/mm3 (150-450); RBC Distribution Width CV 18.2 % (11.6-14.6); RBC Distribution Width SD 61.9 fl (35.1-43.9); Red Blood Count 3.37 M/mm3 (4.2-5.4); White Blood Count 7.2 K/mm3 (4.4-11.0)
[2023-12-13 09:34] LABS: ALB/GLOB Ratio 0.5 RATIO (0.9-2.4); AST(SGOT) 53 U/L (15-37); Alanine Aminotransfer ALT/SGPT 9 U/L (13-56); Albumin, Serum 2.6 g/dL (3.2-5.0); Alkaline Phosphatase 87 U/L (45-117); Anion Gap 8 (5-15); BUN 23 mg/dL (7-18); BUN/Creat Ratio 21.1 RATIO (10-20); CPK Total, Creatine Kinase 60 U/L (26-192); Calcium,Total 9.2 mg/dL (8.5-10.1); Chloride 108 mmol/L (98-107); Creatinine, Serum 1.09 mg/dL (0.55-1.02); EST Glomerular Filtration Rate 53 mL/min (>60); Est Glom Filt Rate - Afr Amer 64 mL/min (>60); Globulin 5.5 g/dL (2.2-4.2); Glucose 204 mg/dL (74-106); Potassium 5.3 mmol/L (3.5-5.1); Protein, Total 8.1 g/dL (6.4-8.2); Sodium Level 137 mmol/L (136-145)
== END ==
LOC: OLS.ACH 05:00
PROVIDERS: PCP Internal Medicine; Visit Provider Internal Medicine
DX: A41.81 Sepsis due to Enterococcus (principal); N11.8 Other chronic tubulo-interstitial nephritis; R65.20 Severe sepsis without septic shock; D50.9 Iron deficiency anemia, unspecified
CPT/HCPCS: 36415; 80053; 82550; 85025

== ENCOUNTER 2023-12-17 05:59 | Day surgery (SDC) | payer MEDICARE, MEDICAID, SELFPAY ==
[2023-12-17] VITALS (9 sets, daily range): BP systolic 142–177; BP diastolic 74–93; PULSE 60; RESP 16–18; TEMP 36.7–37; O2SAT 90–98; BMI 32.2
[2023-12-17] MEDS: Lactated Ringers 1,000 ML 15 ML IV (06:43)
[2023-12-17] MEDS: 0.9 % NaCl (Sterile) Posiflush 10 mL IV (06:43)
[2023-12-17 07:47] LABS: Bedside Glucose 159 mg/dL (74-106)
--- NOTE | 2023-12-17 08:25 | DCINST_ITS ---
Discharge Instructions Diet Discharge Diet: No restrictions Activity Discharge Activity: Return to Normal Activity Dressing / Incision Call your doctor if you observe: Fever of 101 or Higher, Inability to urinate and Inability to have a bowel movement Follow Up Care Please Follow Up With: Marie Young MD When: The office will call the patient and family to make a 3-month follow-up appointment. Test Results: Test results from this visit will be discussed in further detail at your follow- up appointment, if applicable. Discharge Plan Admission Attending Provider: Marie Young Primary Care Provider: Hannah Riggs Discharge Orders/Prescriptions Prescriptions: Continued allopurinol 100 mg tablet 100 mg PO DAILY aspirin [Adult Low Dose Aspirin] 81 mg tablet,delayed release (DR/EC) 81 mg PO DAILY Januvia 50 mg Tablet 100 mg PO DAILY Rx Instructions: with first meal mirtazapine 15 mg tablet 30 mg PO QHS amlodipine 10 mg tablet 5 mg PO QHS acetaminophen 325 mg capsule 650 mg PO Q6H PRN PRN (Reason: pain) clobazam 10 mg tablet 5 mg PO DAILY ferrous sulfate 325 mg (65 mg iron) tablet,delayed release (DR/EC) 325 mg PO DAILY hydralazine 10 mg tablet 10 mg PO TID alendronate 70 mg tablet 70 mg PO SA carbidopa-levodopa 10-100 mg tablet 1 tab PO TID citalopram 10 mg tablet 10 mg PO DAILY cranberry 400 mg capsule 400 mg PO TID Rx Instructions: administer with meals estradiol 0.01 % (0.1 mg/gram) cream 1 appful VAGINAL PRECIADO insulin glargine [Lantus Solostar U-100 Insulin] 100 unit/mL (3 mL) insulin pen 12 unit SUBCUT QHS insulin lispro 100 unit/mL insulin pen 1 unit subcut TID PRN (Reason: SLIDING SCALE) lacosamide 150 mg tablet 150 mg PO BID polyethylene glycol 3350 17 gram Powder In Packet 17 g PO BID PRN (Reason: constipation) ondansetron HCl 8 mg tablet 8 mg PO Q8H PRN PRN (Reason: Nausea) 7 Days Qty: 20 0RF fluticasone propionate 44 mcg/actuation HFA aerosol inhaler 1 inh inhalation QHS Rx Instructions: administer with spacer insulin lispro 100 unit/mL insulin pen 2 unit subcut BID Patient Comments: IN ADDITION TO SLIDING SCALE latanoprost 0.005 % drops 1 drp EACH EYE QPM metformin 1,000 mg tablet 1,000 mg PO BID pregabalin 150 mg capsule 150 mg PO BID timolol maleate 0.5 % drops 1 drp EACH EYE BID sennosides-docusate sodium [Senexon-S] 8.6-50 mg tablet 1 tab-cap PO DAILY PRN PRN (Reason: constipation) calcium carbonate [Calcium 500] 500 mg calcium (1,250 mg) tablet,chewable 500 mg PO Q4H PRN PRN (Reason: dyspepsia) daptomycin in 0.9 % sod chlor 500 mg/50 mL piggyback 500 mg IV DAILY Patient Comments: USE 600MG IV DAILY UNTIL 12/25/2023 Rx Instructions: administer over 30 mins Referrals / Follow Up: Hannah Riggs DO [Primary Care Provider] - Disposition Disposition (needs filled in before D/C Order can be placed): Home, Self Care
--- NOTE | 2023-12-17 08:27 | PCM.OPRPT ---
Report of Operation Date of Procedure: 12/17/23 Pre-Operative Diagnosis: Right renal stones Post-Operative Diagnosis: Same, passed Surgery/Procedure Performed:: Cystoscopy, right ureteroscopy, right retrograde pyelogram, right ureteral stent removal Surgeon: Marie Young Type of Anesthesia: General Specimen's removed: None Description of Procedure: The patient is a 73-year-old female who underwent a cystoscopy with right ureteral stent insertion and right renal extracorporal shockwave lithotripsy. She had remaining stones visible on imaging and presents for ureteroscopy with removal. Informed consent was obtained. The patient was taken to the operating room and placed on the operating room table. Anesthesia monitored the head, neck, airway, IV access and vital signs throughout the case. Once anesthesia was appropriately administered, the patient was placed into dorsolithotomy position and was prepped and draped in usual sterile fashion. The cystoscope was inserted through the urethra under direct visualization into the urinary bladder. Two separate 0.035 glidewires were inserted alongside the indwelling ureteral stent. The ureteral stent was then grasped and removed without difficulty. The flexible ureteroscope was advanced over one of the wires without difficulty all the way to the renal pelvis. The wire was then removed. Every calyx was directly visualized and no evidence of stone was seen. There was no mass, erythema or other abnormality identified. Because I could not find any evidence of stone, contrast was injected through the ureteroscope filling each of the calyces to ensure that they had been directly visualized. There was 1 area I thought was a calcification, but under live fluoroscopy it was obvious that the calcification was not intrarenal. At this time, the entire length of the ureter was directly visualized finding no evidence of obstruction or stone and the ureteroscope was removed. The remaining Glidewire was removed. The patient was awakened and taken to the recovery room in good condition. There were no complications during the procedure. Grafts/Implants Used: None Complications None Admit VTE Documentation VTE Present on Admission: Yes VTE Mechan Device Prophylaxis: SCD's VTE Pharm Prophylaxis ordered?: No Reason prophylaxis not ordered:: Treatment Not Indicated
[2023-12-17 09:51] LABS: Bedside Glucose 153 mg/dL (74-106)
== END 2023-12-17 10:08 | disposition home or self-care (01) ==
LOC: SDC 06:01 → AC 06:02
PROVIDERS: PCP Internal Medicine; Referring Provider Urology; Visit Provider Urology
PROC: 0TJ98ZZ Inspection of Ureter, Via Natural or Artificial Opening Endoscopic (ICD-10-PCS; CPT 52352; principal; 2023-12-17 07:20)
DX: N20.0 Calculus of kidney (principal); G20.A1 Parkinson's disease without dyskinesia, without mention of fluctuations; I48.0 Paroxysmal atrial fibrillation; E11.22 Type 2 diabetes mellitus with diabetic chronic kidney disease; E11.42 Type 2 diabetes mellitus with diabetic polyneuropathy; Z79.4 Long term (current) use of insulin; N18.31 Chronic kidney disease, stage 3a; Z90.710 Acquired absence of both cervix and uterus; Z86.73 Personal history of transient ischemic attack (TIA), and cerebral infarction without residual deficits; I12.9 Hypertensive chronic kidney disease with stage 1 through stage 4 chronic kidney disease, or unspecified chronic kidney disease; Z87.440 Personal history of urinary (tract) infections; E78.5 Hyperlipidemia, unspecified; Z79.82 Long term (current) use of aspirin; Z95.0 Presence of cardiac pacemaker
CPT/HCPCS: 52356; 00918; J7120; 76000; 82962; A4216; J2405

== ENCOUNTER 2023-12-18 14:49 | Inpatient (IN) | payer MEDICARE, MEDICAID, SELFPAY ==
[2023-12-18] VITALS (11 sets, daily range): BP systolic 92–184; BP diastolic 59–87; PULSE 60–603; RESP 10–20; TEMP 36.4–38; O2SAT 89–98; BMI 30.2; BMI 32.1
--- NOTE | 2023-12-18 15:05 | EKG12_ITS ---
Test Reason : Blood Pressure : / mmHG Vent. Rate : 060 BPM Atrial Rate : 060 BPM P-R Int : 266 ms QRS Dur : 094 ms QT Int : 392 ms P-R-T Axes : 000 020 012 degrees QTc Int : 392 ms NSR WITH 1ST DEGREE AV BLOCK NST WAVE CHANGED ABNORMAL Confirmed by Martin Khan ([id number]), tape editor ISRAEL LUIS ([id number]) on 12/20/2023 9:53:43 AM Referred By: Confirmed By:Martin Khan
--- NOTE | 2023-12-18 15:07 | EDS_ITS ---
HPI <HOLDEN Lopez - Last Filed: 12/18/23 21:29> History of Present Illness Chief Complaint: Alt LOC Narrative Narrative: 73-year-old female with PMH of HTN, HLD, DM2, A-fib, pacemaker, CKD, seizures had a cystoscopy with right ureteral stent removal on 12/17/[address] Young. Last night she started to have hot and cold flashes which continued today. Nursing staff at [facility] were concerned she seemed confused. She states she does not feel well but has no acute complaints. She has a right arm PICC line and is receiving IV daptomycin. Family member here is not sure what it is for. 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 She denies chest pain, shortness of breath, or cough. She has no GI symptoms. She states she is urinating and had a bowel movement since surgery without issue. She was noted to be 89% on room air and was placed on 2 L. She does not wear home O2. PFS <HOLDEN Lopez - Last Filed: 12/18/23 21:29> [facility] Medical History (Updated 12/18/23 @ 21:29 by HOLDEN Lopez) Anxiety Atrial fibrillation Bladder disease Breakthrough seizure Cardiology follow-up encounter Chronic kidney disease (CKD) Dietary restriction Dysuria Essential hypertension Failure to thrive in adult Glaucoma Heartburn History of echocardiogram History of edema HLD (hyperlipidemia) Hypertension Hypertensive emergency without congestive heart failure Hypertriglyceridemia Insulin dependent diabetes mellitus Junctional rhythm Kidney disease Kidney stone Lives in halfway Non-smoker Obesity Pacemaker Parkinson's disease Paroxysmal atrial fibrillation S/P extracorporeal shock wave therapy Seizure Seizures Septic shock Stroke/cerebrovascular accident Syncope Tachy-maurizio syndrome TBI (traumatic brain injury) Type 2 diabetes mellitus Uses wheelchair Vaginal bleeding Walker as ambulation aid Home Medications sitagliptin phosphate 50 mg tablet (Januvia) 100 mg PO DAILY Diabetes 11/19/21 [History Last Taken 12/18/23] allopurinol 100 mg tablet 100 mg PO DAILY 12/10/22 [History Last Taken 12/18/23] aspirin 81 mg tablet,delayed release (Adult Low Dose Aspirin) 81 mg PO DAILY 12/10/22 [History Last Taken 12/18/23] alendronate 70 mg tablet 70 mg PO SA 06/15/23 [History Last Taken 12/18/23] carbidopa 10 mg-levodopa 100 mg tablet 1 tab PO TID 06/15/23 [History Last Taken 12/18/23] citalopram 10 mg tablet 10 mg PO DAILY 06/15/23 [History Last Taken 12/18/23] cranberry 400 mg capsule 400 mg PO TID 06/15/23 [History Last Taken 12/18/23] estradiol 0.01% (0.1 mg/gram) vaginal cream 1 appful vaginal PRECIADO 06/15/23 [History Last Taken 12/12/23] insulin glargine 100 unit/mL (3 mL) subcutaneous pen (Lantus Solostar U-100 Insulin) 12 unit subcut QHS 06/15/23 [History Last Taken 12/17/23] lacosamide 150 mg tablet 150 mg PO BID 06/15/23 [History Last Taken 12/18/23] acetaminophen 325 mg capsule 650 mg PO Q6H PRN pain 10/12/23 [History Last Taken 12/17/23] clobazam 10 mg tablet 5 mg PO DAILY 10/12/23 [History Last Taken 12/17/23] ferrous sulfate 325 mg (65 mg iron) tablet,delayed release 325 mg PO DAILY 10/12/23 [History Last Taken 12/18/23] hydralazine 10 mg tablet 10 mg PO TID 10/12/23 [History Last Taken 12/18/23] calcium carbonate (Calcium 500) 500 mg PO Q4H PRN GERD 12/14/23 [History Last Taken Unknown] daptomycin 500 mg/50 mL in 0.9 % sodium chloride intravenous piggyback 500 mg IV DAILY 12/14/23 [History Last Taken 12/18/23] fluticasone propionate 44 mcg/actuation HFA aerosol inhaler 1 inh inhalation QHS 12/14/23 [History Last Taken 12/17/23] insulin lispro 100 unit/mL subcutaneous pen See Protocol subcut BIDCM DIABETES 12/14/23 [History Last Taken 12/18/23] latanoprost 0.005 % eye drops 1 drp EACH EYE QPM 12/14/23 [History Last Taken 12/12/23] metformin 1,000 mg tablet 1,000 mg PO BID 12/14/23 [History Last Taken 12/18/23] pregabalin 150 mg capsule 150 mg PO BID 12/14/23 [History Last Taken 12/18/23] sennosides 8.6 mg-docusate sodium 50 mg tablet (Senexon-S) 1 tab-cap PO DAILY PRN constipation 12/14/23 [History Last Taken Unknown] timolol maleate 0.5 % eye drops 1 drp EACH EYE BID 12/14/23 [History Last Taken 12/18/23] amlodipine 5 mg tablet 5 mg PO QHS 12/18/23 [History Last Taken 12/17/23] heparin, porcine (PF) 100 unit/mL intravenous syringe (Heparin Lock Flush (Porcine) (PF)) 250 unit IV BID IV ANTIBIOTIC THERAPY 12/18/23 [History Last Taken 12/18/23] mirtazapine 30 mg tablet 30 mg PO QHS 12/18/23 [History Last Taken Unknown] ondansetron HCl 8 mg tablet 8 mg PO Q8H PRN Nausea 12/18/23 [History Last Taken Unknown] Allergy/AdvReac Type Severity Reaction Status Date / Time amoxicillin [From Augmentin] Allergy Rash Verified 12/18/23 14:50 clavulanic acid Allergy Rash Verified 12/18/23 14:50 [From Augmentin] escitalopram [From Lexapro] Allergy Rash Verified 12/18/23 14:50 shellfish derived Allergy Unknown Verified 12/18/23 14:50 hydroxychloroquine AdvReac Severe Unknown Verified 12/18/23 14:50 [From Plaquenil] house dust AdvReac NEEDS Verified 12/18/23 14:50 FOLLOW-UP perfume AdvReac Unknown Verified 12/18/23 14:50 pineapple AdvReac Rash Verified 12/18/23 14:50 quinine AdvReac Unknown Verified 12/18/23 14:50 strawberry AdvReac Rash Verified 12/18/23 14:50 Sulfa (Sulfonamide AdvReac Unknown Verified 12/18/23 14:50 Antibiotics) Family History Brother Heart disease Hx CABG Hypertension Diabetes Mother Hypertension Surgical History History of breast surgery History of hysterectomy History of permanent cardiac pacemaker placement (11/15/17) Social History household members: spouse Smoking Status: Never smoker alcohol intake: never substance use type: does not use caffeine: No what type of physical activity do you participate in: none seatbelt use: always do you feel safe at home: Yes ROS <HOLDEN Lopez - Last Filed: 12/18/23 21:29> ROS ED ROS Narrative Constitutional: Positive for fever, chills, malaise. CVS: Negative for chest pain. Respiratory: Negative for shortness of breath, cough. GI: Negative for abdominal pain, nausea, vomiting, diarrhea. : Negative for dysuria. Neuro: Negative for headache. EXAM <HOLDEN Lopez - Last Filed: 12/18/23 21:29> Physical Exam Narrative Exam Narrative: CONST: Patient appears ill lying in bed but in no distress. EYES: Normal inspection. NECK: Normal inspection. RESP: No respiratory distress, CTAB. CVS: Regular rate and rhythm, no murmur, no gallop. ABD: Soft and nontender, no guarding or rebound, nondistended. SKIN: Color normal, no rash, warm, dry, intact. EXTREMITIES: Normal appearance, no pedal edema. NEURO: Alert and oriented x 4, answering questions appropriately. PSYCH: Normal affect. Const Vital Signs: 12/18/23 14:50 12/18/23 14:53 12/18/23 15:05 Temperature 100.4 F H 100.4 F H Temperature Source Oral Oral Pulse Rate 603 H 60 Respiratory Rate 18 14 Blood Pressure 155/61 H 155/61 H Blood Pressure Mean 92 92 Pulse Ox 89 98 98 Oxygen Delivery Method Room Air Nasal Cannula Nasal Cannula Oxygen Flow Rate (L/min) 2 12/18/23 15:53 12/18/23 17:00 12/18/23 18:00 Temperature 97.8 F 99.4 F H 99.7 F H Temperature Source Temporal Oral Oral Pulse Rate 61 64 61 Respiratory Rate 18 18 16 Blood Pressure 125/65 H 105/63 102/78 Blood Pressure Mean 85 77 86 Pulse Ox 98 95 97 Oxygen Delivery Method Room Air Nasal Cannula Room Air Oxygen Flow Rate (L/min) 2 12/18/23 19:00 12/18/23 20:38 12/18/23 21:08 Temperature 98.7 F 97.7 F L Temperature Source Temporal Axillary Pulse Rate 61 60 60 Respiratory Rate 18 10 L 12 Blood Pressure 99/78 92/59 L 122/67 H Blood Pressure Mean 85 70 85 Pulse Ox 95 98 98 Oxygen Delivery Method Nasal Cannula Nasal Cannula Nasal Cannula Oxygen Flow Rate (L/min) 3 2 2 <Dr. Cayden Davey DO - Last Filed: 12/18/23 19:40> Physical Exam Const Vital Signs: 12/18/23 14:50 12/18/23 14:53 12/18/23 15:05 Temperature 100.4 F H 100.4 F H Temperature Source Oral Oral Pulse Rate 603 H 60 Respiratory Rate 18 14 Blood Pressure 155/61 H 155/61 H Blood Pressure Mean 92 92 Pulse Ox 89 98 98 Oxygen Delivery Method Room Air Nasal Cannula Nasal Cannula Oxygen Flow Rate (L/min) 2 12/18/23 15:53 12/18/23 17:00 12/18/23 18:00 Temperature 97.8 F 99.4 F H 99.7 F H Temperature Source Temporal Oral Oral Pulse Rate 61 64 61 Respiratory Rate 18 18 16 Blood Pressure 125/65 H 105/63 102/78 Blood Pressure Mean 85 77 86 Pulse Ox 98 95 97 Oxygen Delivery Method Room Air Nasal Cannula Room Air Oxygen Flow Rate (L/min) 2 12/18/23 19:00 12/18/23 20:38 12/18/23 21:08 Temperature 98.7 F 97.7 F L Temperature Source Temporal Axillary Pulse Rate 61 60 60 Respiratory Rate 18 10 L 12 Blood Pressure 99/78 92/59 L 122/67 H Blood Pressure Mean 85 70 85 Pulse Ox 95 98 98 Oxygen Delivery Method Nasal Cannula Nasal Cannula Nasal Cannula Oxygen Flow Rate (L/min) 3 2 2 MDM <HOLDEN Lopez - Last Filed: 12/18/23 21:29> [facility] MDM Narrative Medical decision making narrative: History gathered from: Patient, family Consults: Neurologist, hospitalist Differential: Pneumonia, UTI, cellulitis, among others Patient developed hot and cold flashes last night and altered mental status per intermediate staff. She had a right ureteral stent removal yesterday. She appears ill but nontoxic. She is febrile at 100.4 F and 89% on room air so was placed on 2 L O2. Overall her exam is benign and lungs are clear. There is no localizing source of infection. No signs of cellulitis. Labs show white count of 11.6. Lactate 1.0. Hemoglobin is stable at 9.1. Creatinine is slightly elevated from 1.09 previously to 1.34 but this is within the range she has been with chronic kidney disease in the past. Urinalysis has leukocyte esterase and WBCs but is nitrite and bacteria negative. Blood and urine cultures are sent. CXR shows no evidence of pneumonia. Swab for COVID/flu/RSV is negative. Since she had a recent procedure with Dr. Young I discussed the case with her. She recommended getting a CT of the abdomen/flank. With her fever and hypoxia I ordered a CT of the chest/abdomen/pelvis to also assess for occult pneumonia. Imaging shows diffuse interstitial edema in both lungs with multifocal pneumonitis. She likely has atelectatic changes after surgery causing the hypoxia but there is no ugo pneumonia. There is also right hydronephrosis and hydroureter with perinephric inflammatory stranding with no obstructing stone which is expected with the recent stent removal. Case was discussed with the hospitalist for admission. Lab Data Attestation: I reviewed the patient's lab results. Labs: Laboratory Results - last 24 hr 12/18/23 12/18/23 12/18/23 15:25 15:44 17:11 WBC 11.6 H RBC 3.36 L Hgb 9.1 L Hct 30.7 L MCV 91.4 MCH 27.1 MCHC 29.6 L RDW Std Deviation 61.3 H RDW Coeff of Ernesto 18.6 H Plt Count 182 MPV 10.7 Immature Gran % (Auto) 0.700 Neut % (Auto) 50.9 Lymph % (Auto) 36.4 [place] % (Auto) 11.1 H Eos % (Auto) 0.6 Baso % (Auto) 0.3 Absolute Neuts (auto) 5.9 Absolute Lymphs (auto) 4.23 Nucleated RBC % 0 PT 14.9 INR 1.2 APTT 41.6 H Sodium Cancelled 138 Potassium Cancelled 5.1 Chloride Cancelled 109 H Carbon Dioxide Cancelled 24.0 Anion Gap Cancelled 5 BUN Cancelled 25 H Creatinine Cancelled 1.34 H Estim Creat Clear Calc Cancelled 36.51 Est GFR (MDRD) Af Amer Cancelled 50 L Est GFR (MDRD) Non-Af Cancelled 41 L BUN/Creatinine Ratio Cancelled 18.7 Glucose Cancelled 178 H Lactic Acid 1.0 Calcium Cancelled 7.9 L Total Bilirubin Cancelled 0.40 AST Cancelled 44 H ALT Cancelled < 6 L Alkaline Phosphatase Cancelled 83 Total Protein Cancelled 7.5 Albumin Cancelled 2.3 L Globulin Cancelled 5.2 H Albumin/Globulin Ratio Cancelled 0.4 L Urine Color Straw Urine Clarity Sl. Cloudy Urine pH 7.0 Ur Specific [place]ancock 1.030 Urine Protein 500 H Urine Glucose (UA) Normal Urine Ketones Negative Urine Occult Blood 50 H Urine Nitrite Negative Urine Bilirubin Negative Urine Urobilinogen Normal Ur Leukocyte Esterase 500 H Urine RBC 5-10 SEEN Urine WBC 25-50 SEEN Ur Squamous Epith Cells 0-5 SEEN Urine Bacteria 0 SEEN Urine Mucus 0 SEEN Radiography Diagnostic Testing: Clinical Impression(s) from Imaging Studies Chest X-Ray 12/18/23 15:31 IMPRESSION: No acute cardiopulmonary process identified. Right PICC tip at the level of the right brachiocephalic vein; consider repositioning. Electronically Signed: Tg Sylvester MD at 15:44 EDT , Chest/Abdomen/Pelvis CT 12/18/23 18:39 IMPRESSION: Diffuse interstitial edema in both lung barron with multifocal pneumonitis and dependent atelectasis. Cardiomegaly with calcified coronary vessels, pacer leads seen along the base of the heart Right hydronephrosis and hydroureter with perinephric and periureteral inflammatory stranding. No obstructing stone noted, findings likely due to recent presence of a ureteral stent and recent removal Bilateral simple renal cysts, bilateral nonobstructing renal stones, no specific follow-up needed No free intraperitoneal fluid, air, or suspicious adenopathy Degenerative bony changes Electronically Signed: Miah Hitchcock MD at 20:40 EDT , EKG Initial EKG: Attestation: I personally reviewed and interpreted this EKG as follows: Comments: AV dual paced rhythm at 60 bpm <Dr. Cayden Davey, DO - Last Filed: 12/18/23 19:40> MDM History & Record Review Discussion w/independent historian: Patient and Family Additional record(s) reviewed:: Prior inpatient record, Prior outpatient record, Prior ED visit and Prior labs Lab Data Labs: Laboratory Results - last 24 hr 12/18/23 12/18/23 12/18/23 15:25 15:44 17:11 WBC 11.6 H RBC 3.36 L Hgb 9.1 L Hct 30.7 L MCV 91.4 MCH 27.1 MCHC 29.6 L RDW Std Deviation 61.3 H RDW Coeff of Ernesto 18.6 H Plt Count 182 MPV 10.7 Immature Gran % (Auto) 0.700 Neut % (Auto) 50.9 Lymph % (Auto) 36.4 [place] % (Auto) 11.1 H Eos % (Auto) 0.6 Baso % (Auto) 0.3 Absolute Neuts (auto) 5.9 Absolute Lymphs (auto) 4.23 Nucleated RBC % 0 PT 14.9 INR 1.2 APTT 41.6 H Sodium Cancelled 138 Potassium Cancelled 5.1 Chloride Cancelled 109 H Carbon Dioxide Cancelled 24.0 Anion Gap Cancelled 5 BUN Cancelled 25 H Creatinine Cancelled 1.34 H Estim Creat Clear Calc Cancelled 36.51 Est GFR (MDRD) Af Amer Cancelled 50 L Est GFR (MDRD) Non-Af Cancelled 41 L BUN/Creatinine Ratio Cancelled 18.7 Glucose Cancelled 178 H Lactic Acid 1.0 Calcium Cancelled 7.9 L Total Bilirubin Cancelled 0.40 AST Cancelled 44 H ALT Cancelled < 6 L Alkaline Phosphatase Cancelled 83 Total Protein Cancelled 7.5 Albumin Cancelled 2.3 L Globulin Cancelled 5.2 H Albumin/Globulin Ratio Cancelled 0.4 L Urine Color Straw Urine Clarity Sl. Cloudy Urine pH 7.0 Ur Specific [place] 1.030 Urine Protein 500 H Urine Glucose (UA) Normal Urine Ketones Negative Urine Occult Blood 50 H Urine Nitrite Negative Urine Bilirubin Negative Urine Urobilinogen Normal Ur Leukocyte Esterase 500 H Urine RBC 5-10 SEEN Urine WBC 25-50 SEEN Ur Squamous Epith Cells 0-5 SEEN Urine Bacteria 0 SEEN Urine Mucus 0 SEEN Radiography Diagnostic Testing: Clinical Impression(s) from Imaging Studies Chest X-Ray 12/18/23 15:31 IMPRESSION: No acute cardiopulmonary process identified. Right PICC tip at the level of the right brachiocephalic vein; consider repositioning. Electronically Signed: Tg Sylvester MD at 15:44 EDT , Chest/Abdomen/Pelvis CT 12/18/23 18:39 IMPRESSION: Diffuse interstitial edema in both lung barron with multifocal pneumonitis and dependent atelectasis. Cardiomegaly with calcified coronary vessels, pacer leads seen along the base of the heart Right hydronephrosis and hydroureter with perinephric and periureteral inflammatory stranding. No obstructing stone noted, findings likely due to recent presence of a ureteral stent and recent removal Bilateral simple renal cysts, bilateral nonobstructing renal stones, no specific follow-up needed No free intraperitoneal fluid, air, or suspicious adenopathy Degenerative bony changes Electronically Signed: Miah Hitchcock MD at 20:40 EDT , Management Discussion w/another healthcare provider: Hospitalist and Flow Coordinator (Urology (Dr. Young)) Treatment and Re-Evaluation :: I have personally performed a face to face assessment of the patient and have reviewed the KIRBY Note. I performed a substantive portion of the visit including all aspects of the following. My shepard findings include: History is 73-year-old female postoperative day 1 presenting with fever and altered mental status. Patient underwent surgery yesterday with Dr. Nati Blas for ureteral stent removal. No obvious ureteral stones were seen. The patient was back at halfway last night. She has a history of VRE in the urine has been on long-term antibiotics through a right PICC line. Noted to have temperature of 100.4 and confusion. While here in the department she has had some desaturations down to about 8889%. However this could be due to hypoventilation and mental status change. Exam is nonfocal. Patient is alert. She appears in no acute distress. The abdomen appears benign. I do not see wounds on her skin. Medical Decison Making septic workup was obtained and so far has been negative. We did obtain blood cultures 1 set from the PICC line. The patient chest x-ray on my interpretation shows no obvious infiltrate. Case will be discussed with urology as well as hospitalist for admission Discharge Plan Triage Chief Complaint: Alt LOC ED Midlevel Provider: Dianelys Padilla ED Provider: Cayden Davey Dx/Rx/DC Orders Clinical Impression: Fever, Hypoxia, Altered mental status, Chronic UTI Primary Care Provider: Hannah Riggs
--- NOTE | 2023-12-18 15:31 | RAD_ITS ---
HISTORY: hypoxia. TECHNIQUE: XR Chest 1 View. COMPARISON: 08/19/2023. FINDINGS: CARDIOMEDIASTINAL BORDERS: Cardiac silhouette within normal limits in size with pacemaker in place. Mediastinal contour also unchanged with calcification of the aortic knob. Right PICC tip at the level of the right brachiocephalic vein. LUNGS: Radiographically clear. PLEURA: No pleural effusion or pneumothorax seen. OSSEOUS STRUCTURES: Degenerative change. RAD/Chest 1 View (Portable) IMPRESSION: No acute cardiopulmonary process identified. Right PICC tip at the level of the right brachiocephalic vein; consider repositioning. Electronically Signed: Tg Sylvester MD at 15:44 EDT ,
[2023-12-18] MEDS: Acetaminophen 500 MG Tablet 1000 MG PO (15:41)
[2023-12-18] MEDS: 0.9% Normal Saline (1000mL) 1,000 ML 999 ML IV (15:41)
[2023-12-18 15:42] LABS: Absolute Lymphocyte Count 4.23 X10^3/uL (0.83-4.51); Absolute Neutrophil Count 5.9 X10^3/uL (2.0-7.7); Basophil# 0.04 X10^3/uL; Basophil% 0.3 % (0-1); Eosinophil# 0.07 X10^3/uL; Eosinophils% 0.6 % (0-5); Hematocrit 30.7 % (37-47); Hemoglobin 9.1 g/dL (12.0-15.0); Lymphocyte # 4.23 X10^3/ul (0.83-4.51); Lymphocyte % 36.4 % (19-41); Mean Corp Hgb Conc 29.6 g/dL (32-36); Mean Corpuscular Hgb 27.1 pg (27.0-32.0); Mean Corpuscular Volume 91.4 fL (81-99); Mean Platelet Vol. 10.7 fl (6.2-12.0); Monocyte# 1.29 X10^3/uL; Monocyte% 11.1 % (0-10); NRBC Flagged by Analyzer 0 % (0-5); Neutrophil # 5.91 X10^3/uL (2.7-7.7); Neutrophil % 50.9 % (47-70); Platelet Count 182 K/mm3 (150-450); RBC Distribution Width CV 18.6 % (11.6-14.6); RBC Distribution Width SD 61.3 fl (35.1-43.9); Red Blood Count 3.36 M/mm3 (4.2-5.4); White Blood Count 11.6 K/mm3 (4.4-11.0)
[2023-12-18 15:48] LABS: Bacteria 0 SEEN /hpf (None Seen); Mucous, Urine 0 SEEN /hpf (<or=2+)
[2023-12-18 15:55] LABS: International Normalized Ratio 1.2; Prothrombin Time (Protime)PT. 14.9 SECONDS (11.7-14.9)
[2023-12-18 15:56] LABS: Partial Thromboplast Time 41.6 Seconds (24.1-36.2)
[2023-12-18 16:16] LABS: Color, Urine Straw (Yellow); Glucose, Dipstick Normal (Normal); Ketone-Dipstick Negative (Negative); Leukocyte Esterase-Dipstick 500 /ul (Negative); Nitrite-Dipstick Negative (Negative); Occult Blood-Urine 50 /ul (Negative); Protein-Dipstick 500 mg/dl (Negative); Urine Bilirubin Dipstick Negative (Negative); Urine Clarity Sl. Cloudy (Clear); Urine Urobilinogen Normal (Normal)
[2023-12-18 16:35] LABS: Red Blood Cells-Urine 5-10 SEEN /hpf (0-5); White Blood Cells 25-50 SEEN /hpf (0-5)
[2023-12-18 16:37] LABS: Squamous Epithelial Cells - UA 0-5 SEEN /hpf (5-10)
--- NOTE | 2023-12-18 17:07 | NURSING ---
NEED A NEW GOLDENT JOSE E HUFFMAN, LAB TO REPRINT LABEL
[2023-12-18 18:27] LABS: ALB/GLOB Ratio 0.4 RATIO (0.9-2.4); AST(SGOT) 44 U/L (15-37); Alanine Aminotransfer ALT/SGPT < 6 U/L (13-56); Albumin, Serum 2.3 g/dL (3.2-5.0); Alkaline Phosphatase 83 U/L (45-117); Anion Gap 5 (5-15); BUN 25 mg/dL (7-18); BUN/Creat Ratio 18.7 RATIO (10-20); Calcium,Total 7.9 mg/dL (8.5-10.1); Chloride 109 mmol/L (98-107); Creatinine, Serum 1.34 mg/dL (0.55-1.02); EST Glomerular Filtration Rate 41 mL/min (>60); Est Glom Filt Rate - Afr Amer 50 mL/min (>60); Estimated Creatinine Clearance 36.51 ml/min; Globulin 5.2 g/dL (2.2-4.2); Glucose 178 mg/dL (74-106); Potassium 5.1 mmol/L (3.5-5.1); Protein, Total 7.5 g/dL (6.4-8.2); Sodium Level 138 mmol/L (136-145)
--- NOTE | 2023-12-18 18:39 | CT_ITS ---
STUDY: CT CHEST, ABDOMEN T PELVIS WITHOUT CONTRAST REASON FOR EXAM: Female, 73 years old. fever, hypoxia, recent uretal stent removed RADIATION DOSAGE (If Supplied By Facility): CTDIvol = ( 24.68 ) mGy, DLP = ( 2331.78 ) mGycm TECHNIQUE: Transaxial imaging was performed without the administration of intravenous contrast material. Multiplanar coronal and sagittal images were reformatted. Individualized dose optimization techniques were used for this CT. COMPARISON: No relevant priors. FINDINGS: CHEST Lung windows show mild interstitial edema in both lung barron without organized infiltrate, there are patchy opacifications in both lung barron suggesting multifocal pneumonitis along with dependent atelectasis. Pacer leads seen along the base of the heart which is mildly enlarged. Calcified coronary vessels noted. No suspicious axillary or mediastinal or perihilar adenopathy. Normal unenhanced pulmonary arteries. Normal aorta arch and descending thoracic aorta. There are multi-level degenerative changes of the thoracic spine. ABDOMEN Liver is unremarkable aside from an enlarged left lobe which extends across the anterior edge of the spleen. Normal gallbladder and extrahepatic biliary system. Normal spleen. Normal pancreas. Normal bilateral adrenal glands. Patient underwent recent cystoscopy with right stent removal. There is persistent right hydronephrosis and hydroureter with perinephric and periureteral inflammatory stranding but no obstructing stone is noted. Findings are likely due to the recent presence of the ureteral stent. There are bilateral simple cysts in both kidneys and nonobstructing bilateral renal stones are noted. Normal visualized stomach. Nondistended fluid-filled small bowel loops are noted consistent with ileus. This may be due to retained stool throughout the colon. Scattered colonic diverticula are noted without CT evidence of acute diverticulitis. There is non-visualization of the appendix. Peripheral calcifications in the abdominal aorta and its branches, patency of the abdominal aortic branches cannot be assessed without IV contrast. Normal inferior vena cava. Normal retroperitoneum. There are dilated serpiginous abdominal varices noted in the subcutaneous fat. There are diffuse degenerative changes of the visualized lumbar spine, and pelvis. PELVIS The bladder distends normally there is a small amount of air within the bladder again likely due to the recent cystoscopy. There is no pelvic fluid. There is no pelvic lymphadenopathy or mass lesion. There is diffuse atherosclerotic calcification of the pelvic arteries. CT/CT Chest, Abd, Pelvis WO Cont IMPRESSION: Diffuse interstitial edema in both lung barron with multifocal pneumonitis and dependent atelectasis. Cardiomegaly with calcified coronary vessels, pacer leads seen along the base of the heart Right hydronephrosis and hydroureter with perinephric and periureteral inflammatory stranding. No obstructing stone noted, findings likely due to recent presence of a ureteral stent and recent removal Bilateral simple renal cysts, bilateral nonobstructing renal stones, no specific follow-up needed No free intraperitoneal fluid, air, or suspicious adenopathy Degenerative bony changes Electronically Signed: Miah Hitchcock MD at 20:40 EDT ,
[2023-12-18] MEDS: 0.9% Normal Saline (1000mL) 1,000 ML 200 ML IV (19:10)
--- NOTE | 2023-12-18 21:16 | PCM.HP.STD ---
HPI - General General Date of Admission: 12/18/23 HPI Narrative HERMINIA CARDONA, is a 73 F who presents to the hospital from [facility] secondary to appearing be altered. She has not altered but she does have a slight fever and a slight elevation in her white blood cell count. In September she was found to have VRE in her urine and was started on daptomycin by an outside infectious disease physician, she does have a PICC line and she does get the daptomycin every day. She was found to have a kidney stone and had a stent placed and on 12/17/2023 the stent was removed by urology at this institution and she went back to the [facility]. Last night she started becoming tired and appearing feverish and so this morning they brought her into the hospital and it did not improve. CT scan of the chest abdomen and pelvis demonstrates diffuse interstitial edema with multifocal pneumonitis as well as right hydronephrosis and hydroureter with perinephric and periureteral inflammatory stranding. [facility] Medical History (Updated 12/18/23 @ 21:29 by HOLDEN Lopez) Anxiety Atrial fibrillation Bladder disease Breakthrough seizure Cardiology follow-up encounter Chronic kidney disease (CKD) Dietary restriction Dysuria Essential hypertension Failure to thrive in adult Glaucoma Heartburn History of echocardiogram History of edema HLD (hyperlipidemia) Hypertension Hypertensive emergency without congestive heart failure Hypertriglyceridemia Insulin dependent diabetes mellitus Junctional rhythm Kidney disease Kidney stone Lives in correction Non-smoker Obesity Pacemaker Parkinson's disease Paroxysmal atrial fibrillation S/P extracorporeal shock wave therapy Seizure Seizures Septic shock Stroke/cerebrovascular accident Syncope Tachy-maurizio syndrome TBI (traumatic brain injury) Type 2 diabetes mellitus Uses wheelchair Vaginal bleeding Walker as ambulation aid Home Medications sitagliptin phosphate 50 mg tablet (Januvia) 100 mg PO DAILY Diabetes 11/19/21 [History Last Taken 12/18/23] allopurinol 100 mg tablet 100 mg PO DAILY 12/10/22 [History Last Taken 12/18/23] aspirin 81 mg tablet,delayed release (Adult Low Dose Aspirin) 81 mg PO DAILY 12/10/22 [History Last Taken 12/18/23] alendronate 70 mg tablet 70 mg PO SA 06/15/23 [History Last Taken 12/18/23] carbidopa 10 mg-levodopa 100 mg tablet 1 tab PO TID 06/15/23 [History Last Taken 12/18/23] citalopram 10 mg tablet 10 mg PO DAILY 06/15/23 [History Last Taken 12/18/23] cranberry 400 mg capsule 400 mg PO TID 06/15/23 [History Last Taken 12/18/23] estradiol 0.01% (0.1 mg/gram) vaginal cream 1 appful vaginal PRECIADO 06/15/23 [History Last Taken 12/12/23] insulin glargine 100 unit/mL (3 mL) subcutaneous pen (Lantus Solostar U-100 Insulin) 12 unit subcut QHS 06/15/23 [History Last Taken 12/17/23] lacosamide 150 mg tablet 150 mg PO BID 06/15/23 [History Last Taken 12/18/23] acetaminophen 325 mg capsule 650 mg PO Q6H PRN pain 10/12/23 [History Last Taken 12/17/23] clobazam 10 mg tablet 5 mg PO DAILY 10/12/23 [History Last Taken 12/17/23] ferrous sulfate 325 mg (65 mg iron) tablet,delayed release 325 mg PO DAILY 10/12/23 [History Last Taken 12/18/23] hydralazine 10 mg tablet 10 mg PO TID 10/12/23 [History Last Taken 12/18/23] calcium carbonate (Calcium 500) 500 mg PO Q4H PRN GERD 12/14/23 [History Last Taken Unknown] daptomycin 500 mg/50 mL in 0.9 % sodium chloride intravenous piggyback 500 mg IV DAILY 12/14/23 [History Last Taken 12/18/23] fluticasone propionate 44 mcg/actuation HFA aerosol inhaler 1 inh inhalation QHS 12/14/23 [History Last Taken 12/17/23] insulin lispro 100 unit/mL subcutaneous pen See Protocol subcut BIDCM DIABETES 12/14/23 [History Last Taken 12/18/23] latanoprost 0.005 % eye drops 1 drp EACH EYE QPM 12/14/23 [History Last Taken 12/12/23] metformin 1,000 mg tablet 1,000 mg PO BID 12/14/23 [History Last Taken 12/18/23] pregabalin 150 mg capsule 150 mg PO BID 12/14/23 [History Last Taken 12/18/23] sennosides 8.6 mg-docusate sodium 50 mg tablet (Senexon-S) 1 tab-cap PO DAILY PRN constipation 12/14/23 [History Last Taken Unknown] timolol maleate 0.5 % eye drops 1 drp EACH EYE BID 12/14/23 [History Last Taken 12/18/23] amlodipine 5 mg tablet 5 mg PO QHS 12/18/23 [History Last Taken 12/17/23] heparin, porcine (PF) 100 unit/mL intravenous syringe (Heparin Lock Flush (Porcine) (PF)) 250 unit IV BID IV ANTIBIOTIC THERAPY 12/18/23 [History Last Taken 12/18/23] mirtazapine 30 mg tablet 30 mg PO QHS 12/18/23 [History Last Taken Unknown] ondansetron HCl 8 mg tablet 8 mg PO Q8H PRN Nausea 12/18/23 [History Last Taken Unknown] Allergy/AdvReac Type Severity Reaction Status Date / Time amoxicillin [From Augmentin] Allergy Rash Verified 12/18/23 14:50 clavulanic acid Allergy Rash Verified 12/18/23 14:50 [From Augmentin] escitalopram [From Lexapro] Allergy Rash Verified 12/18/23 14:50 shellfish derived Allergy Unknown Verified 12/18/23 14:50 hydroxychloroquine AdvReac Severe Unknown Verified 12/18/23 14:50 [From Plaquenil] house dust AdvReac NEEDS Verified 12/18/23 14:50 FOLLOW-UP perfume AdvReac Unknown Verified 12/18/23 14:50 pineapple AdvReac Rash Verified 12/18/23 14:50 quinine AdvReac Unknown Verified 12/18/23 14:50 strawberry AdvReac Rash Verified 12/18/23 14:50 Sulfa (Sulfonamide AdvReac Unknown Verified 12/18/23 14:50 Antibiotics) Family History Brother Heart disease Hx CABG Hypertension Diabetes Mother Hypertension Surgical History History of breast surgery History of hysterectomy History of permanent cardiac pacemaker placement (11/15/17) Social History household members: spouse Smoking Status: Never smoker alcohol intake: never substance use type: does not use caffeine: No what type of physical activity do you participate in: none seatbelt use: always do you feel safe at home: Yes ROS Constitutional Constitutional: Reports chills, fatigue and fever(s); Denies malaise Eyes Eyes: Denies blurry vision ENT HEENT: Denies headache(s) or nasal discharge Cardiovascular Cardiovascular: Denies chest pain, dyspnea on exertion or syncope Respiratory/Chest Respiratory/Chest: Denies cough, shortness of breath at rest or shortness of breath with exertion Gastrointestinal Gastrointestinal: Denies constipation, diarrhea, nausea or vomiting Genitourinary Genitourinary: Denies dysuria Neurologic Neurologic: Denies focal weakness, numbness or tremor(s) Psychiatric Psychiatric: Denies anxiety or depression Vital Signs Vital Signs Vital Signs: 12/18/23 14:50 12/18/23 14:53 12/18/23 15:05 Temperature 100.4 F H 100.4 F H Temperature Source Oral Oral Pulse Rate 603 H 60 Respiratory Rate 18 14 Blood Pressure 155/61 H 155/61 H Blood Pressure Mean 92 92 Pulse Ox 89 98 98 Oxygen Delivery Method Room Air Nasal Cannula Nasal Cannula Oxygen Flow Rate (L/min) 2 12/18/23 15:53 12/18/23 17:00 12/18/23 18:00 Temperature 97.8 F 99.4 F H 99.7 F H Temperature Source Temporal Oral Oral Pulse Rate 61 64 61 Respiratory Rate 18 18 16 Blood Pressure 125/65 H 105/63 102/78 Blood Pressure Mean 85 77 86 Pulse Ox 98 95 97 Oxygen Delivery Method Room Air Nasal Cannula Room Air Oxygen Flow Rate (L/min) 2 12/18/23 19:00 12/18/23 20:38 12/18/23 21:08 Temperature 98.7 F 97.7 F L Temperature Source Temporal Axillary Pulse Rate 61 60 60 Respiratory Rate 18 10 L 12 Blood Pressure 99/78 92/59 L 122/67 H Blood Pressure Mean 85 70 85 Pulse Ox 95 98 98 Oxygen Delivery Method Nasal Cannula Nasal Cannula Nasal Cannula Oxygen Flow Rate (L/min) 3 2 2 Weight Weight: 165 lb 5.547 oz Body Mass Index (BMI) 30.2 Physical Exam Narrative General: Alert, Oriented x3, Cooperative, No apparent distress HEENT: Atraumatic, PERRLA, EOMI, Normocephalic Oral: Moist Mucosa Neck: Supple, No JVD Lungs: Diminished, Normal air movement, No rhonchi, No wheeze, No rales Cardiovascular: Regular rate, Regular Rhythm, Normal S1, Normal S2, No murmurs Abdomen: Soft, Non Tender, Non-Distended, No Hepato-splenomegaly Extremities: No edema, Capillary Refill Less than 3 Seconds Skin: No rashes, No breakdown Musculoskeletal: No Tenderness to Palpation of Joints or Extremities Neurological: No focal neurological deficits, Motor Exam 5/5 strength throughout, Sensory exam intact to light touch and pain Psych/Mental Status: Flat, fatigued Results Lab / Micro Data 12/18/23 15:25 12/18/23 17:11 Labs: Laboratory Results - last 24 hr 12/18/23 15:25: WBC 11.6 H, RBC 3.36 L, Hgb 9.1 L, Hct 30.7 L, MCV 91.4, MCH 27.1, MCHC 29.6 L, RDW Std Deviation 61.3 H, RDW Coeff of Ernesto 18.6 H, Plt Count 182, MPV 10.7, Immature Gran % (Auto) 0.700, Neut % (Auto) 50.9, Lymph % (Auto) 36.4, [place] % (Auto) 11.1 H, Eos % (Auto) 0.6, Baso % (Auto) 0.3, Absolute Neuts (auto) 5.9, Absolute Lymphs (auto) 4.23, Nucleated RBC % 0, PT 14.9, INR 1.2, APTT 41.6 H, Sodium Cancelled, Potassium Cancelled, Chloride Cancelled, Carbon Dioxide Cancelled, Anion Gap Cancelled, BUN Cancelled, Creatinine Cancelled, Estim Creat Clear Calc Cancelled, Est GFR (MDRD) Af Amer Cancelled, Est GFR (MDRD) Non-Af Cancelled, BUN/Creatinine Ratio Cancelled, Glucose Cancelled, Lactic Acid 1.0, Calcium Cancelled, Total Bilirubin Cancelled, AST Cancelled, ALT Cancelled, Alkaline Phosphatase Cancelled, Total Protein Cancelled, Albumin Cancelled, Globulin Cancelled, Albumin/Globulin Ratio Cancelled 12/18/23 15:44: Urine Color Straw, Urine Clarity Sl. Cloudy, Urine pH 7.0, Ur Specific [place] 1.030, Urine Protein 500 H, Urine Glucose (UA) Normal, Urine Ketones Negative, Urine Occult Blood 50 H, Urine Nitrite Negative, Urine Bilirubin Negative, Urine Urobilinogen Normal, Ur Leukocyte Esterase 500 H, Urine RBC 5-10 SEEN, Urine WBC 25-50 SEEN, Ur Squamous Epith Cells 0-5 SEEN, Urine Bacteria 0 SEEN, Urine Mucus 0 SEEN 12/18/23 17:11: Sodium 138, Potassium 5.1, Chloride 109 H, Carbon Dioxide 24.0, Anion Gap 5, BUN 25 H, Creatinine 1.34 H, Estim Creat Clear Calc 36.51, Est GFR (MDRD) Af Amer 50 L, Est GFR (MDRD) Non-Af 41 L, BUN/Creatinine Ratio 18.7, Glucose 178 H, Calcium 7.9 L, Total Bilirubin 0.40, AST 44 H, ALT < 6 L, Alkaline Phosphatase 83, Total Protein 7.5, Albumin 2.3 L, Globulin 5.2 H, Albumin/Globulin Ratio 0.4 L Micro: Microbiology 12/18/23 15:25 Mucosa - Nasopharyngeal SARS-CoV-2, Influenza & RSV (PCR) - Final Imaging Radiology Impression Chest X-Ray 12/18/23 15:31 IMPRESSION: No acute cardiopulmonary process identified. Right PICC tip at the level of the right brachiocephalic vein; consider repositioning. Electronically Signed: Tg Sylvester MD at 15:44 EDT , Chest/Abdomen/Pelvis CT 12/18/23 18:39 IMPRESSION: Diffuse interstitial edema in both lung barron with multifocal pneumonitis and dependent atelectasis. Cardiomegaly with calcified coronary vessels, pacer leads seen along the base of the heart Right hydronephrosis and hydroureter with perinephric and periureteral inflammatory stranding. No obstructing stone noted, findings likely due to recent presence of a ureteral stent and recent removal Bilateral simple renal cysts, bilateral nonobstructing renal stones, no specific follow-up needed No free intraperitoneal fluid, air, or suspicious adenopathy Degenerative bony changes Electronically Signed: Miah Hitchcock MD at 20:40 EDT , Assessment & Plan Assessment/Plan (1) Chronic UTI: (2) Fever: PLAN: Plan 1. Chronic UTI with VRE/fevers and chills and fatigue ? Continue with daptomycin, no eosinophilia to think that there is a component of drug reaction to her pneumonitis ? Will obtain urine cultures and blood cultures ? COVID/RSV/flu swab are negative ? Will consult urology secondary to hydronephrosis and ureteral inflammation after stent removal on 12/17/2023 2. Essential HTN ? Blood pressures are stable ? Will continue with her home blood pressure medications ? Will monitor make adjustments as necessary ? Will obtain a BMP given the lung findings of possible pneumonitis to see if she has any component of heart failure 3. Seizure disorder with a history of TBI ? Stable ? Continue with all of her home neurological medications 5. Iron deficiency anemia ? Hemoglobin appears to be stable ? Continue with iron 6. DM2 ? Continue with her home insulin ? Accu-Cheks ACHS ? Sliding scale insulin ? Will monitor make adjustments as necessary ? Will hold her home oral medications DVT: SCDs 75 minutes was spent on direct patient care, including documentation as well as chart review and collaboration with colleagues Charges/Coding Visit Charges Inpatient E&M: 17501 Init Hosp L3
[2023-12-18 22:05] LABS: BNP,B-Type NATRIURETIC PEPTIDE 324.6 pg/mL (0-100)
[2023-12-19] VITALS (9 sets, daily range): BP systolic 137–187; BP diastolic 62–89; PULSE 60–89; RESP 17–18; TEMP 37.2–39.1; O2SAT 93–99; BMI 32.2
[2023-12-19 05:53] LABS: Absolute Lymphocyte Count 2.72 X10^3/uL (0.83-4.51); Absolute Neutrophil Count 5.4 X10^3/uL (2.0-7.7); Basophil# 0.03 X10^3/uL; Basophil% 0.3 % (0-1); Eosinophil# 0.19 X10^3/uL; Hematocrit 27.9 % (37-47); Hemoglobin 8.2 g/dL (12.0-15.0); Lymphocyte # 2.72 X10^3/ul (0.83-4.51); Lymphocyte % 28.3 % (19-41); Mean Corp Hgb Conc 29.4 g/dL (32-36); Mean Corpuscular Hgb 27.2 pg (27.0-32.0); Mean Corpuscular Volume 92.4 fL (81-99); Mean Platelet Vol. 10.3 fl (6.2-12.0); Monocyte% 12.5 % (0-10); NRBC Flagged by Analyzer 0 % (0-5); Neutrophil # 5.42 X10^3/uL (2.7-7.7); Neutrophil % 56.4 % (47-70); Platelet Count 162 K/mm3 (150-450); RBC Distribution Width CV 18.6 % (11.6-14.6); RBC Distribution Width SD 62.3 fl (35.1-43.9); Red Blood Count 3.02 M/mm3 (4.2-5.4); White Blood Count 9.6 K/mm3 (4.4-11.0)
[2023-12-19 06:15] LABS: Anion Gap 4 (5-15); BUN 23 mg/dL (7-18); Calcium,Total 7.7 mg/dL (8.5-10.1); Chloride 110 mmol/L (98-107); Creatinine, Serum 1.21 mg/dL (0.55-1.02); EST Glomerular Filtration Rate 47 mL/min (>60); Est Glom Filt Rate - Afr Amer 56 mL/min (>60); Glucose 175 mg/dL (74-106); Potassium 5.3 mmol/L (3.5-5.1); Sodium Level 137 mmol/L (136-145)
[2023-12-19] MEDS: hydrALAZINE 10 MG Tablet PO ×3 (06:18→22:01)
[2023-12-19] MEDS: Carbidopa/Levodopa 10/100 Tablet PO ×3 (06:19→22:00)
--- NOTE | 2023-12-19 07:40 | PCM.PN.HOSP ---
Reason for Visit Reason for Visit: Diagnoses Urinary tract infection, site not specified (12/18/23) Fever, unspecified (12/18/23) Subjective Subjective Patient is a 73-year-old lady who is currently being treated for chronic UTI with VRE resident at an [facility] care facility brought in with altered mental status and fever Objective Data Objective Data Vital Signs: Vital Signs Temp Pulse Resp BP Pulse Ox O2 Del Method O2 Flow Rate 99.1 F 89 17 187/89 H 99 Nasal Cannula 2 12/19/23 04:20 12/19/23 06:18 12/19/23 04:20 12/19/23 04:20 12/19/23 04:20 12/19/23 07:30 12/19/23 07:30 Oxygen Flow Rate (L/min) 2 Oxygen Delivery Method Nasal Cannula Weight: 79.5 kg Body Mass Index (BMI) 32.2 Intake & Output: Intake and Output for Last 24 Hours 12/17/23 12/18/23 12/19/23 23:59 23:59 23:59 Intake Total 1716 / 1716 Output Total 200 / 200 Balance 1716 / 1716 -200 / -200 Lab / Micro Data 12/19/23 05:42 12/19/23 05:42 Labs: Laboratory Results - last 24 hr 12/18/23 15:25: WBC 11.6 H, RBC 3.36 L, Hgb 9.1 L, Hct 30.7 L, MCV 91.4, MCH 27.1, MCHC 29.6 L, RDW Std Deviation 61.3 H, RDW Coeff of Ernesto 18.6 H, Plt Count 182, MPV 10.7, Immature Gran % (Auto) 0.700, Neut % (Auto) 50.9, Lymph % (Auto) 36.4, [place] % (Auto) 11.1 H, Eos % (Auto) 0.6, Baso % (Auto) 0.3, Absolute Neuts (auto) 5.9, Absolute Lymphs (auto) 4.23, Nucleated RBC % 0, PT 14.9, INR 1.2, APTT 41.6 H, Sodium Cancelled, Potassium Cancelled, Chloride Cancelled, Carbon Dioxide Cancelled, Anion Gap Cancelled, BUN Cancelled, Creatinine Cancelled, Estim Creat Clear Calc Cancelled, Est GFR (MDRD) Af Amer Cancelled, Est GFR (MDRD) Non-Af Cancelled, BUN/Creatinine Ratio Cancelled, Glucose Cancelled, Lactic Acid 1.0, Calcium Cancelled, Total Bilirubin Cancelled, AST Cancelled, ALT Cancelled, Alkaline Phosphatase Cancelled, Total Protein Cancelled, Albumin Cancelled, Globulin Cancelled, Albumin/Globulin Ratio Cancelled 12/18/23 15:44: Urine Color Straw, Urine Clarity Sl. Cloudy, Urine pH 7.0, Ur Specific [place] 1.030, Urine Protein 500 H, Urine Glucose (UA) Normal, Urine Ketones Negative, Urine Occult Blood 50 H, Urine Nitrite Negative, Urine Bilirubin Negative, Urine Urobilinogen Normal, Ur Leukocyte Esterase 500 H, Urine RBC 5-10 SEEN, Urine WBC 25-50 SEEN, Ur Squamous Epith Cells 0-5 SEEN, Urine Bacteria 0 SEEN, Urine Mucus 0 SEEN 12/18/23 17:11: Sodium 138, Potassium 5.1, Chloride 109 H, Carbon Dioxide 24.0, Anion Gap 5, BUN 25 H, Creatinine 1.34 H, Estim Creat Clear Calc 36.51, Est GFR (MDRD) Af Amer 50 L, Est GFR (MDRD) Non-Af 41 L, BUN/Creatinine Ratio 18.7, Glucose 178 H, Calcium 7.9 L, Total Bilirubin 0.40, AST 44 H, ALT < 6 L, Alkaline Phosphatase 83, Total Protein 7.5, Albumin 2.3 L, Globulin 5.2 H, Albumin/Globulin Ratio 0.4 L 12/18/23 21:25: B-Natriuretic Peptide 324.6 H 12/19/23 05:42: WBC 9.6, RBC 3.02 L, Hgb 8.2 L, Hct 27.9 L, MCV 92.4, MCH 27.2, MCHC 29.4 L, RDW Std Deviation 62.3 H, RDW Coeff of Ernesto 18.6 H, Plt Count 162, MPV 10.3, Immature Gran % (Auto) 0.500, Neut % (Auto) 56.4, Lymph % (Auto) 28.3, [place] % (Auto) 12.5 H, Eos % (Auto) 2.0, Baso % (Auto) 0.3, Absolute Neuts (auto) 5.4, Absolute Lymphs (auto) 2.72, Nucleated RBC % 0, Sodium 137, Potassium 5.3 H, Chloride 110 H, Carbon Dioxide 23.0, Anion Gap 4 L, BUN 23 H, Creatinine 1.21 H, Estim Creat Clear Calc 41.70, Est GFR (MDRD) Af Amer 56 L, Est GFR (MDRD) Non-Af 47 L, BUN/Creatinine Ratio 19.0, Glucose 175 H, Calcium 7.7 L Micro: Microbiology 12/18/23 15:25 Mucosa - Nasopharyngeal SARS-CoV-2, Influenza & RSV (PCR) - Final Radiography Diagnostic Testing: Radiology Impression Chest X-Ray 12/18/23 15:31 IMPRESSION: No acute cardiopulmonary process identified. Right PICC tip at the level of the right brachiocephalic vein; consider repositioning. Electronically Signed: Tg Sylvester MD at 15:44 EDT , Chest/Abdomen/Pelvis CT 12/18/23 18:39 IMPRESSION: Diffuse interstitial edema in both lung barron with multifocal pneumonitis and dependent atelectasis. Cardiomegaly with calcified coronary vessels, pacer leads seen along the base of the heart Right hydronephrosis and hydroureter with perinephric and periureteral inflammatory stranding. No obstructing stone noted, findings likely due to recent presence of a ureteral stent and recent removal Bilateral simple renal cysts, bilateral nonobstructing renal stones, no specific follow-up needed No free intraperitoneal fluid, air, or suspicious adenopathy Degenerative bony changes Electronically Signed: Miah Hitchcock MD at 20:40 EDT , Physical Exam Narrative GENERAL: cooperative HEENT: Atraumatic; normocephalic EYES; Anicteric, Normal Conjunctiva NECK; supple, normal thyroid, RESPIRATORY: Diminished to auscultation CARDIOVASCULAR: Regular S1 S2, GI: soft, normoactive bowel sounds, : No Renal angle tenderness; EXTREMITIES: edema, no clubbing, MUSCULOSKELETAL: no muscle wasting NEURO: Awake; no lateralizing signs. SKIN: No Rash PSYCH; Flat affect Assessment & Plan Assessment/Plan (1) Chronic UTI: (2) Fever: PLAN: Plan Patient is a 73-year-old lady who is currently being treated for chronic UTI with VRE resident at an extended care facility brought in with altered mental status and fever 1. Acute metabolic encephalopathy ? Secondary to pyelonephritis 2. Acute pyelonephritis ? Patient has history of chronic UTIs with VRE send is on daptomycin. Imaging studies obtained in the ED did demonstrate distended bladder, right hydronephrosis and hydroureter with perinephric and periureteral inflammatory stranding no obstructing stone noted. Patient admitted to regular nursing floor started on broad-spectrum antibiotic therapy with cefepime and linezolid with consultation placed to ID and urology. Case was discussed with Dr. Young urology 3. Fever ? Secondary to patient acute pyelonephritis. Patient was also found to have bilateral pneumonitis and is hide his PICC line for more than 6 weeks plan is to discontinue PICC line in a.m. and reinsert a new one if indicated for long-term antibiotic therapy 4.? Anemia - Secondary to chronic disorder monitoring H&H and transfuse if patient becomes symptomatic or hemoglobin falls below? 7 5.? Acute kidney injury.? Patient baseline creatinine 0.75 creatinine on admission was 1.34 patient has been started on IV fluid with subsequent monitoring with daily BMPs ordered 6.? Hypertension - Blood pressure controlled, home medications continued with dose adjustment as needed 7.? Diabetes mellitus type II -patient's oral hypoglycemics held. Placed on long acting insulin, Accu-Cheks a.c. and at bedtime and covered with sliding scale insulin 8.? Seizure disorder ? Did continue patient antiseizure medications 9.? Paroxysmal A. fib ?Rate controlled.? Patient not on systemic anticoagulation 10.? Tachybradycardia syndrome ? Status post pacemaker placement 11.? DVT prophylaxis SC Lovenox Time spent in the patient's overall evaluation,decision-making process, review of diagnostic data, adjustment of management, discussion with other providers, nursing nursing and ancillary staff involved in patient's care documentation, 55 Minutes Charges/Coding Visit Charges Inpatient E&M: 51312 [facility] L3
--- NOTE | 2023-12-19 09:01 | NURSING ---
This RN in with Dr. Young and this RN bladder scanned pt for 420ml. Order for alfredo cath insertion by Dr. Young given to this RN at this time.
--- NOTE | 2023-12-19 09:02 | NURSING ---
Bladder scanned for 420ml at this time. Dr. Young is at bedside and aware, ordered alfredo cath insertion.
--- NOTE | 2023-12-19 09:13 | CON.PCM_ITS ---
Assessment & Plan Assessment/Plan (1) Chronic UTI: (2) Fever: (3) Hypoxia: (4) Urinary retention: PLAN: Plan Await urine culture results Continue antibiotics per infectious disease plan Dickson catheter to straight drain PICC line is nonfunctioning and has been in place since her stay in [place]. I have discussed with medicine team consideration for removal with culture and replacement of the PICC line tomorrow. Continue supportive care. Thank you for the consultation. HPI Consult Data Date of Consult: 12/19/23 HPI Narrative Reason for Consultation: Fever status post ureteroscopy HPI Narrative: HERMINIA CARDONA, is a 73 F who presented to the emergency room from the nursing facility yesterday with fatigue and fever. She was evaluated in the emergency room and perinephric stranding in the right kidney and distended bladder were identified. She has a PICC line that is not in the correct location and is not functioning. This morning she has no flank pain, no abdominal pain, she has no complaints of pain anywhere. She is feeling overall tired, fatigued and weak. [facility] Medical History (Updated 12/18/23 @ 21:29 by HOLDEN Lopez) Anxiety Atrial fibrillation Bladder disease Breakthrough seizure Cardiology follow-up encounter Chronic kidney disease (CKD) Dietary restriction Dysuria Essential hypertension Failure to thrive in adult Glaucoma Heartburn History of echocardiogram History of edema HLD (hyperlipidemia) Hypertension Hypertensive emergency without congestive heart failure Hypertriglyceridemia Insulin dependent diabetes mellitus Junctional rhythm Kidney disease Kidney stone Lives in correction Non-smoker Obesity Pacemaker Parkinson's disease Paroxysmal atrial fibrillation S/P extracorporeal shock wave therapy Seizure Seizures Septic shock Stroke/cerebrovascular accident Syncope Tachy-maurizio syndrome TBI (traumatic brain injury) Type 2 diabetes mellitus Uses wheelchair Vaginal bleeding Walker as ambulation aid Home Medications sitagliptin phosphate 50 mg tablet (Januvia) 100 mg PO DAILY Diabetes 11/19/21 [History Last Taken 12/18/23] allopurinol 100 mg tablet 100 mg PO DAILY 12/10/22 [History Last Taken 12/18/23] aspirin 81 mg tablet,delayed release (Adult Low Dose Aspirin) 81 mg PO DAILY 12/10/22 [History Last Taken 12/18/23] alendronate 70 mg tablet 70 mg PO SA 06/15/23 [History Last Taken 12/18/23] carbidopa 10 mg-levodopa 100 mg tablet 1 tab PO TID 06/15/23 [History Last Taken 12/18/23] citalopram 10 mg tablet 10 mg PO DAILY 06/15/23 [History Last Taken 12/18/23] cranberry 400 mg capsule 400 mg PO TID 06/15/23 [History Last Taken 12/18/23] estradiol 0.01% (0.1 mg/gram) vaginal cream 1 appful vaginal PRECIADO 06/15/23 [History Last Taken 12/12/23] insulin glargine 100 unit/mL (3 mL) subcutaneous pen (Lantus Solostar U-100 Insulin) 12 unit subcut QHS 06/15/23 [History Last Taken 12/17/23] lacosamide 150 mg tablet 150 mg PO BID 06/15/23 [History Last Taken 12/18/23] acetaminophen 325 mg capsule 650 mg PO Q6H PRN pain 10/12/23 [History Last Taken 12/17/23] clobazam 10 mg tablet 5 mg PO DAILY 10/12/23 [History Last Taken 12/17/23] ferrous sulfate 325 mg (65 mg iron) tablet,delayed release 325 mg PO DAILY 10/12/23 [History Last Taken 12/18/23] hydralazine 10 mg tablet 10 mg PO TID 10/12/23 [History Last Taken 12/18/23] calcium carbonate (Calcium 500) 500 mg PO Q4H PRN GERD 12/14/23 [History Last Taken Unknown] daptomycin 500 mg/50 mL in 0.9 % sodium chloride intravenous piggyback 500 mg IV DAILY 12/14/23 [History Last Taken 12/18/23] fluticasone propionate 44 mcg/actuation HFA aerosol inhaler 1 inh inhalation QHS 12/14/23 [History Last Taken 12/17/23] insulin lispro 100 unit/mL subcutaneous pen See Protocol subcut BIDCM DIABETES 12/14/23 [History Last Taken 12/18/23] latanoprost 0.005 % eye drops 1 drp EACH EYE QPM 12/14/23 [History Last Taken 12/12/23] metformin 1,000 mg tablet 1,000 mg PO BID 12/14/23 [History Last Taken 12/18/23] pregabalin 150 mg capsule 150 mg PO BID 12/14/23 [History Last Taken 12/18/23] sennosides 8.6 mg-docusate sodium 50 mg tablet (Senexon-S) 1 tab-cap PO DAILY PRN constipation 12/14/23 [History Last Taken Unknown] timolol maleate 0.5 % eye drops 1 drp EACH EYE BID 12/14/23 [History Last Taken 12/18/23] amlodipine 5 mg tablet 5 mg PO QHS 12/18/23 [History Last Taken 12/17/23] heparin, porcine (PF) 100 unit/mL intravenous syringe (Heparin Lock Flush (Porcine) (PF)) 250 unit IV BID IV ANTIBIOTIC THERAPY 12/18/23 [History Last Taken 12/18/23] mirtazapine 30 mg tablet 30 mg PO QHS 12/18/23 [History Last Taken Unknown] ondansetron HCl 8 mg tablet 8 mg PO Q8H PRN Nausea 12/18/23 [History Last Taken Unknown] Allergy/AdvReac Type Severity Reaction Status Date / Time amoxicillin [From Augmentin] Allergy Rash Verified 12/18/23 14:50 clavulanic acid Allergy Rash Verified 12/18/23 14:50 [From Augmentin] escitalopram [From Lexapro] Allergy Rash Verified 12/18/23 14:50 shellfish derived Allergy Unknown Verified 12/18/23 14:50 hydroxychloroquine AdvReac Severe Unknown Verified 12/18/23 14:50 [From Plaquenil] house dust AdvReac NEEDS Verified 12/18/23 14:50 FOLLOW-UP perfume AdvReac Unknown Verified 12/18/23 14:50 pineapple AdvReac Rash Verified 12/18/23 14:50 quinine AdvReac Unknown Verified 12/18/23 14:50 strawberry AdvReac Rash Verified 12/18/23 14:50 Sulfa (Sulfonamide AdvReac Unknown Verified 12/18/23 14:50 Antibiotics) Family History Brother Heart disease Hx CABG Hypertension Diabetes Mother Hypertension Surgical History History of breast surgery History of hysterectomy History of permanent cardiac pacemaker placement (11/15/17) Social History household members: spouse Smoking Status: Never smoker alcohol intake: never substance use type: does not use caffeine: No what type of physical activity do you participate in: none seatbelt use: always do you feel safe at home: Yes ROS Constitutional Constitutional: Reports fatigue, fever(s) and weakness Eyes Eyes: Reports systems reviewed and no addt'l complaints, except as documented ENT HEENT: Reports systems reviewed and no addt'l complaints, except as documented Cardiovascular Cardiovascular: Denies abdominal pain, chest pain or dyspnea Respiratory/Chest Respiratory/Chest: Denies cough or dyspnea Gastrointestinal Gastrointestinal: Denies abdominal pain, nausea or vomiting Genitourinary Genitourinary: Reports other Details: She has a pure wick catheter in place currently. ; Denies abdominal discomfort, dysuria, flank pain, hematuria or urinary urgency Musculoskeletal Musculoskeletal: Denies back pain or numbness Integumentary Integumentary: Reports systems reviewed and no addt'l complaints, except as documented Neurologic Neurologic: Reports systems reviewed and no addt'l complaints, except as documented Psychiatric Psychiatric: Reports systems reviewed and no addt'l complaints, except as documented Endocrine Endocrinology: Reports systems reviewed and no addt'l complaints, except as documented Hematologic/Lymphatic Hematologic/Lymphatic: Reports systems reviewed and no addt'l complaints, except as documented Allergic/Immunologic Allergic/Immunologic: Reports systems reviewed and no addt'l complaints, except as documented Physical Exam Const alert, oriented x3 and no apparent distress HEENT normocephalic, head/scalp atraumatic, hearing grossly normal bilaterally, external ears normal and external nose normal Eyes General Eye: normal appearance of both eyes Neck supple General: normal visual inspection and trachea midline Chest inspection of chest normal Chest: symmetrical chest wall rise Resp normal respiratory effort, normal air movement and no retractions Cardio regular rate GI soft to palpation, non-tender and non-distended Narrative: The urine is draining clear into a pure wick catheter. A bladder scan postvoid residual revealed 420 cc of retained urine. A Dickson catheter insertion has been ordered. Back/Spine no CVA tenderness Extremity normal to inspection Skin no rashes or lesions noted, skin turgor normal, no jaundice, no petechiae and no mottling Neuro oriented x3 and CN's II-XII intact bilaterally Psych mental status grossly normal, thought process normal and cooperative Lab / Micro Data 12/19/23 05:42 12/19/23 05:42 Labs: Laboratory Results - last 24 hr 12/18/23 15:25: WBC 11.6 H, RBC 3.36 L, Hgb 9.1 L, Hct 30.7 L, MCV 91.4, MCH 27.1, MCHC 29.6 L, RDW Std Deviation 61.3 H, RDW Coeff of Ernesto 18.6 H, Plt Count 182, MPV 10.7, Immature Gran % (Auto) 0.700, Neut % (Auto) 50.9, Lymph % (Auto) 36.4, [place] % (Auto) 11.1 H, Eos % (Auto) 0.6, Baso % (Auto) 0.3, Absolute Neuts (auto) 5.9, Absolute Lymphs (auto) 4.23, Nucleated RBC % 0, PT 14.9, INR 1.2, A PTT 41.6 H, Sodium Cancelled, Potassium Cancelled, Chloride Cancelled, Carbon Dioxide Cancelled, Anion Gap Cancelled, BUN Cancelled, Creatinine Cancelled, Estim Creat Clear Calc Cancelled, Est GFR (MDRD) Af Amer Cancelled, Est GFR (MDRD) Non-Af Cancelled, BUN/Creatinine Ratio Cancelled, Glucose Cancelled, Lactic Acid 1.0, Calcium Cancelled, Total Bilirubin Cancelled, AST Cancelled, ALT Cancelled, Alkaline Phosphatase Cancelled, Total Protein Cancelled, Albumin Cancelled, Globulin Cancelled, Albumin/Globulin Ratio Cancelled 12/18/23 15:44: Urine Color Straw, Urine Clarity Sl. Cloudy, Urine pH 7.0, Ur Specific [place] 1.030, Urine Protein 500 H, Urine Glucose (UA) Normal, Urine Ketones Negative, Urine Occult Blood 50 H, Urine Nitrite Negative, Urine Bilirubin Negative, Urine Urobilinogen Normal, Ur Leukocyte Esterase 500 H, Urine RBC 5-10 SEEN, Urine WBC 25-50 SEEN, Ur Squamous Epith Cells 0-5 SEEN, Urine Bacteria 0 SEEN, Urine Mucus 0 SEEN 12/18/23 17:11: Sodium 138, Potassium 5.1, Chloride 109 H, Carbon Dioxide 24.0, Anion Gap 5, BUN 25 H, Creatinine 1.34 H, Estim Creat Clear Calc 36.51, Est GFR (MDRD) Af Amer 50 L, Est GFR (MDRD) Non-Af 41 L, BUN/Creatinine Ratio 18.7, Glucose 178 H, Calcium 7.9 L, Total Bilirubin 0.40, AST 44 H, ALT < 6 L, Alkal ine Phosphatase 83, Total Protein 7.5, Albumin 2.3 L, Globulin 5.2 H, Albumin/Globulin Ratio 0.4 L 12/18/23 21:25: B-Natriuretic Peptide 324.6 H 12/19/23 05:42: WBC 9.6, RBC 3.02 L, Hgb 8.2 L, Hct 27.9 L, MCV 92.4, MCH 27.2, MCHC 29.4 L, RDW Std Deviation 62.3 H, RDW Coeff of Ernesto 18.6 H, Plt Count 162, MPV 10.3, Immature Gran % (Auto) 0.500, Neut % (Auto) 56.4, Lymph % (Auto) 28.3, [place] % (Auto) 12.5 H, Eos % (Auto) 2.0, Baso % (Auto) 0.3, Absolute Neuts (auto) 5.4, Absolute Lymphs (auto) 2.72, Nucleated RBC % 0, Sodium 137, Potassium 5.3 H , Chloride 110 H, Carbon Dioxide 23.0, Anion Gap 4 L, BUN 23 H, Creatinine 1.21 H, Estim Creat Clear Calc 41.70, Est GFR (MDRD) Af Amer 56 L, Est GFR (MDRD) Non-Af 47 L, BUN/Creatinine Ratio 19.0, Glucose 175 H, Calcium 7.7 L Micro: Microbiology 12/18/23 15:25 Mucosa - Nasopharyngeal SARS-CoV-2, Influenza & RSV (PCR) - Final Imaging Radiology Impression Chest X-Ray 12/18/23 15:31 IMPRESSION: No acute cardiopulmonary process identified. Right PICC tip at the level of the right brachiocephalic vein; consider repositioning. Electronically Signed: Tg Sylvester MD at 15:44 EDT , Chest/Abdomen/Pelvis CT 12/18/23 18:39 IMPRESSION: Diffuse interstitial edema in both lung barron with multifocal pneumonitis and dependent atelectasis. Cardiomegaly with calcified coronary vessels, pacer leads seen along the base of the heart Right hydronephrosis and hydroureter with perinephric and periureteral inflammatory stranding. No obstructing stone noted, findings likely due to recent presence of a ureteral stent and recent removal Bilateral simple renal cysts, bilateral nonobstructing renal stones, no specific follow-up needed No free intraperitoneal fluid, air, or suspicious adenopathy Degenerative bony changes Electronically Signed: Miah Hitchcock MD at 20:40 EDT ,
[2023-12-19 09:25] LABS: Bedside Glucose 164 mg/dL (74-106)
[2023-12-19] MEDS: Ferrous Sulfate 325 MG Tablet PO (09:25)
[2023-12-19] MEDS: Aspirin E.C. 81 MG Tablet PO (09:26)
[2023-12-19] MEDS: Citalopram 10 MG Tablet PO (09:26)
[2023-12-19] MEDS: Allopurinol 100 MG Tablet PO (09:27)
[2023-12-19] MEDS: Pregabalin 75 MG Capsule 150 MG PO ×2 (09:33→21:58)
[2023-12-19] MEDS: Timolol 0.5% 5ML OPTH.BTL 1 DRP EACH EYE ×2 (09:34→22:36)
[2023-12-19] MEDS: Insulin Lispro 100 UNIT/ML INSULN.PEN SC ×3 (09:34→22:14)
[2023-12-19] MEDS: Lacosamide 100 MG Tablet 150 MG PO ×2 (09:38→21:58)
[2023-12-19] MEDS: DAPTOmycin 500mg/10ml Vial 500 MG in 0.9% Normal Saline (50mL Bag) 50 ML 100 MG IV (14:25)
[2023-12-19] MEDS: Acetaminophen 325 MG Tablet 650 MG PO ×2 (14:45→22:09)
[2023-12-19] MEDS: Cefepime HCl 2 GM in 0.9% Normal Saline (100mL MB+) 100 ML IV ×2 (15:26→22:59)
[2023-12-19 15:50] LABS: Bedside Glucose 182 mg/dL (74-106)
[2023-12-19] MEDS: cloBAZam 10 MG TABLET 5 MG PO (17:04)
[2023-12-19 17:27] LABS: Bedside Glucose 143 mg/dL (74-106)
[2023-12-19] MEDS: Insulin Glargine-YFGN 100 UNIT/ML Pen 12 UNIT SC (22:13)
[2023-12-19] MEDS: Latanoprost 0.005% 1 Bottle 1 DRP EACH EYE (22:17)
[2023-12-19] MEDS: Mirtazapine 30 MG Tablet PO (22:17)
[2023-12-19] MEDS: amLODIPine 5 MG Tablet PO (22:29)
[2023-12-20] VITALS (8 sets, daily range): BP systolic 115–163; BP diastolic 63–83; PULSE 59–62; RESP 16–18; TEMP 36.2–37.4; O2SAT 92–95; BMI 31.4
[2023-12-20 00:09] LABS: Bedside Glucose 200 mg/dL (74-106)
[2023-12-20] MEDS: hydrALAZINE 10 MG Tablet PO ×3 (04:46→20:59)
[2023-12-20] MEDS: Carbidopa/Levodopa 10/100 Tablet PO ×3 (04:47→20:59)
[2023-12-20 06:41] LABS: Absolute Lymphocyte Count 1.96 X10^3/uL (0.83-4.51); Absolute Neutrophil Count 4.8 X10^3/uL (2.0-7.7); Basophil# 0.03 X10^3/uL; Basophil% 0.4 % (0-1); Eosinophil# 0.29 X10^3/uL; Eosinophils% 3.6 % (0-5); Hematocrit 30.9 % (37-47); Hemoglobin 9.2 g/dL (12.0-15.0); Lymphocyte # 1.96 X10^3/ul (0.83-4.51); Lymphocyte % 24.2 % (19-41); Mean Corp Hgb Conc 29.8 g/dL (32-36); Mean Corpuscular Hgb 27.5 pg (27.0-32.0); Mean Corpuscular Volume 92.2 fL (81-99); Mean Platelet Vol. 10.4 fl (6.2-12.0); Monocyte# 0.95 X10^3/uL; Monocyte% 11.7 % (0-10); NRBC Flagged by Analyzer 0 % (0-5); Neutrophil # 4.82 X10^3/uL (2.7-7.7); Neutrophil % 59.5 % (47-70); Platelet Count 175 K/mm3 (150-450); RBC Distribution Width CV 18.1 % (11.6-14.6); RBC Distribution Width SD 60.3 fl (35.1-43.9); Red Blood Count 3.35 M/mm3 (4.2-5.4); White Blood Count 8.1 K/mm3 (4.4-11.0)
[2023-12-20] MEDS: Insulin Lispro 100 UNIT/ML INSULN.PEN SC ×3 (06:51→21:06)
[2023-12-20 07:10] LABS: Bedside Glucose 184 mg/dL (74-106)
[2023-12-20 07:19] LABS: Anion Gap 4 (5-15); BUN 20 mg/dL (7-18); BUN/Creat Ratio 16.3 RATIO (10-20); Calcium,Total 8.4 mg/dL (8.5-10.1); Chloride 109 mmol/L (98-107); Creatinine, Serum 1.23 mg/dL (0.55-1.02); EST Glomerular Filtration Rate 46 mL/min (>60); Est Glom Filt Rate - Afr Amer 55 mL/min (>60); Estimated Creatinine Clearance 40.41 ml/min; Glucose 191 mg/dL (74-106); Magnesium 1.8 mg/dL (1.6-2.6); Phosphorus 3.5 mg/dL (2.5-4.9); Potassium 4.5 mmol/L (3.5-5.1); Sodium Level 136 mmol/L (136-145)
[2023-12-20] MEDS: Aspirin E.C. 81 MG Tablet PO (10:18)
[2023-12-20] MEDS: Allopurinol 100 MG Tablet PO (10:18)
[2023-12-20] MEDS: Citalopram 10 MG Tablet PO (10:18)
[2023-12-20] MEDS: Ferrous Sulfate 325 MG Tablet PO (10:18)
[2023-12-20] MEDS: Timolol 0.5% 5ML OPTH.BTL 1 DRP EACH EYE ×2 (10:19→21:00)
[2023-12-20] MEDS: cloBAZam 10 MG TABLET 5 MG PO (10:29)
[2023-12-20] MEDS: Lacosamide 100 MG Tablet 150 MG PO ×2 (10:29→21:36)
[2023-12-20] MEDS: Pregabalin 75 MG Capsule 150 MG PO ×2 (10:29→20:59)
[2023-12-20] MEDS: Cefepime HCl 2 GM in 0.9% Normal Saline (100mL MB+) 100 ML IV ×2 (10:55→21:06)
--- NOTE | 2023-12-20 11:05 | PN.HOSP_ITS ---
Reason for Visit Reason for Visit: Diagnoses Urinary tract infection, site not specified (12/19/23) Hypoxemia (12/19/23) Retention of urine, unspecified (12/19/23) Fever, unspecified (12/19/23) Objective Data Objective Data Vital Signs: Vital Signs Temp Pulse Resp BP Pulse Ox O2 Del Method O2 Flow Rate 97.1 F L 60 18 115/63 95 Room Air 2 12/20/23 08:09 12/20/23 08:09 12/20/23 08:09 12/20/23 08:09 12/20/23 08:09 12/20/23 08:09 12/19/23 22:00 Oxygen Flow Rate (L/min) 2 Oxygen Delivery Method Room Air Weight: 170 lb 10.205 oz Body Mass Index (BMI) 31.4 Intake & Output: Intake and Output for Last 24 Hours 12/18/23 12/19/23 12/20/23 23:59 23:59 23:59 Intake Total 1716 / 1716 760 / 760 Output Total 1550 / 1550 1450 / 1450 Balance 1716 / 1716 -790 / -790 -1450 / -1450 Lab / Micro Data 12/20/23 06:13 12/20/23 06:13 Labs: Laboratory Results - last 24 hr 12/19/23 11:36: POC Glucose 182 H 12/19/23 17:00: POC Glucose 143 H 12/19/23 22:13: POC Glucose 200 H 12/20/23 06:13: WBC 8.1, RBC 3.35 L, Hgb 9.2 L, Hct 30.9 L, MCV 92.2, MCH 27.5, MCHC 29.8 L, RDW Std Deviation 60.3 H, RDW Coeff of Ernesto 18.1 H, Plt Count 175, MPV 10.4, Immature Gran % (Auto) 0.600, Neut % (Auto) 59.5, Lymph % (Auto) 24.2, [place] % (Auto) 11.7 H, Eos % (Auto) 3.6, Baso % (Auto) 0.4, Absolute Neuts (auto) 4.8, Absolute Lymphs (auto) 1.96, Nucleated RBC % 0, Sodium 136, Potassium 4.5, Chloride 109 H, Carbon Dioxide 23.0, Anion Gap 4 L, BUN 20 H, Creatinine 1.23 H, Estim Creat Clear Calc 40.41, Est GFR (MDRD) Af Amer 55 L, Est GFR (MDRD) Non-Af 46 L, BUN/Creatinine Ratio 16.3, Glucose 191 H, Calcium 8.4 L, Phosphorus 3.5, Magnesium 1.8 12/20/23 06:49: POC Glucose 184 H Micro: Microbiology 12/18/23 16:00 Urine, Catheterized Urine Culture - Preliminary Yeast Like Organism 12/18/23 15:25 Mucosa - Nasopharyngeal SARS-CoV-2, Influenza & RSV (PCR) - Final Physical Exam Narrative Seen and examined. Dickson catheter inserted. States she had 6 weeks of IV daptomycin for chronic UTI. General: Alert, Oriented x3, Cooperative HEENT: Atraumatic, PERRLA, EOMI, Normocephalic Oral: No Gingival or Mucosal Lesions/ Ulcerations Neck: Supple, No JVD, Negative Carotid Bruits Chest wall/Lungs: Air entry diminished in bilateral lung bases. No crepitation/rhonchi Cardiovascular: Regular rate, Regular Rhythm, Normal S1, Normal S2, No M/G/R Abdomen: Bowel Sounds Present, Soft, Non Tender, Non-Distended : Dickson catheter. No dysuria. No renal angle tenderness. No suprapubic tenderness. Extremities: No edema, Capillary Refill Less than 3 Seconds Skin: Right arm PICC line. No tenderness or induration or clinically thrombophlebitis Musculoskeletal: No Tenderness to Palpation of Joints or Extremities. ROM restricted Neurological: Cranial nerves II-XII grossly intact, DTR 2+/4. No acute focal neurological deficit. Psych/Mental Status: Normal Affect, Appropriate. Assessment & Plan Assessment/Plan (1) Chronic UTI: (2) Fever: PLAN: Plan Patient is a 73-year-old lady who is currently being treated for chronic UTI with [facility]RE resident at an extended care facility brought in with altered mental status and fever 1. Acute metabolic encephalopathy ? Secondary to pyelonephritis 12/19: Acute encephalopathy resolved. 2. Acute pyelonephritis ? 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 Daptomycin can be a source of pneumonitis. Chest x-ray shows no acute cardiopulmonary abnormality. Imaging studies obtained in the ED did demonstrate distended bladder, right hydronephrosis and hydroureter with perinephric and periureteral inflammatory stranding no obstructing stone noted. Patient admitted to regular nursing floor started on broad-spectrum antibiotic therapy with cefepime and linezolid with consultation placed to ID and urology. Case was discussed with Dr. Young urology. The patient had cystoscopy, right retrograde pyelogram and stent removal after she passed renal stone. Patient was last admitted in October 2022 for hypokalemia and UTI due to Enterococcus faecalis. Last urine cu lture in September 2023 shows VRE, [id number]. 3. Fever secondary to acute pyelonephritis. Patient was PICC line for more than 6 weeks. The plan is to discontinue PICC line in a.m. and reinsert a new one if indicated for long-term antibiotic therapy. Chest x-ray reviewed and shows and shows tip of the PICC line in cephalic vein. ID consult reviewed and recommended PICC line removal. Further decision about PICC line after rule out PICC line related bacteremia. 4.? Anemia - Secondary to chronic disorder monitoring H&H and transfuse if patient becomes symptomatic or hemoglobin falls below? 7 5.? Acute kidney injury.? Patient baseline creatinine 0.75 creatinine on admission was 1.34 patient has been started on IV fluid with subsequent monitoring with daily BMPs ordered 6.? Hypertension - Blood pressure controlled, home medications continued with dose adjustment as needed 7.? Diabetes mellitus type II -patient's oral hypoglycemics held. Placed on long acting insulin, Accu-Cheks a.c. and at bedtime and covered with sliding scale insulin 8.? Seizure disorder ? Did continue patient antiseizure medications 9.? Paroxysmal A. fib ?Rate controlled.? Patient not on systemic anticoagulation 10.? Tachybradycardia syndrome ? Status post pacemaker placement 11.? DVT prophylaxis SC Lovenox Clinical Impression(s) from Imaging Studies Chest X-Ray 12/18/23 15:31 IMPRESSION: No acute cardiopulmonary process identified. Right PICC tip at the level of the right brachiocephalic vein; consider repositioning. Electronically Signed: Tg Sylvester MD at 15:44 EDT , Chest/Abdomen/Pelvis CT 12/18/23 18:39 IMPRESSION: Diffuse interstitial edema in both lung barron with multifocal pneumonitis and dependent atelectasis. Cardiomegaly with calcified coronary vessels, pacer leads seen along the base of the heart Right hydronephrosis and hydroureter with perinephric and periureteral inflammatory stranding. No obstructing stone noted, findings likely due to recent presence of a ureteral stent and recent removal Bilateral simple renal cysts, bilateral nonobstructing renal stones, no specific follow-up needed No free intraperitoneal fluid, air, or suspicious adenopathy Degenerative bony changes Electronically Signed: Miah Hitchcock MD at 20:40 EDT , Charges/Coding Visit Charges Inpatient E&M: 23378 Subs Hosp L2
--- NOTE | 2023-12-20 12:49 | CON.PCM.ID_ITS ---
Assessment & Plan Assessment/Plan (1) Chronic UTI: (2) Fever: PLAN: Will request records from [place]. Per [facility], [facility] notes, plan per ID Dr. Calvert was for dapto from 11/17-12/25/23; not clear why she was on such a long course. Ok for picc removal. Went to [place] 12/17/[address] Young for stent removal, no residual stones seen. Cefepime added empirically. Would not replace picc at this moment as we wait for fever to resolve and bcxs to show no new picc-related bacteremia. Dapto could be source of pneumonitis. Will follow, thank you HPI Consult Data Date of Consult: 12/20/23 HPI Narrative Reason for Consultation: fever HPI Narrative: HERMINIA CARDONA, is a 73 F who presented from [facility] with acute onset confusion, fever. Had been admitted to [place] with VRE uti, discharged to facility on dapto for planned course 11/17-12/24 via RUE picc. Came here 12/16 for stent removal. No abd pain, no dysuria prior to admit. No n/v/d, no body aches. Fever last night, denies cough or SOB. Full ROS performed and neg except as noted above. [facility] Medical History Anxiety Atrial fibrillation Bladder disease Breakthrough seizure Cardiology follow-up encounter Chronic kidney disease (CKD) Dietary restriction Dysuria Essential hypertension Failure to thrive in adult Glaucoma Heartburn History of echocardiogram History of edema HLD (hyperlipidemia) Hypertension Hypertensive emergency without congestive heart failure Hypertriglyceridemia Insulin dependent diabetes mellitus Junctional rhythm Kidney disease Kidney stone Lives in longterm Non-smoker Obesity Pacemaker Parkinson's disease Paroxysmal atrial fibrillation S/P extracorporeal shock wave therapy Seizure Seizures Septic shock Stroke/cerebrovascular accident Syncope Tachy-maurizio syndrome TBI (traumatic brain injury) Type 2 diabetes mellitus Uses wheelchair Vaginal bleeding Walker as ambulation aid Home Medications sitagliptin phosphate 50 mg tablet (Januvia) 100 mg PO DAILY Diabetes 11/19/21 [History Last Taken 12/18/23] allopurinol 100 mg tablet 100 mg PO DAILY 12/10/22 [History Last Taken 12/18/23] aspirin 81 mg tablet,delayed release (Adult Low Dose Aspirin) 81 mg PO DAILY 12/10/22 [History Last Taken 12/18/23] alendronate 70 mg tablet 70 mg PO SA 06/15/23 [History Last Taken 12/18/23] carbidopa 10 mg-levodopa 100 mg tablet 1 tab PO TID 06/15/23 [History Last Taken 12/18/23] citalopram 10 mg tablet 10 mg PO DAILY 06/15/23 [History Last Taken 12/18/23] cranberry 400 mg capsule 400 mg PO TID 06/15/23 [History Last Taken 12/18/23] estradiol 0.01% (0.1 mg/gram) vaginal cream 1 appful vaginal PRECIADO 06/15/23 [History Last Taken 12/12/23] insulin glargine 100 unit/mL (3 mL) subcutaneous pen (Lantus Solostar U-100 Insulin) 12 unit subcut QHS 06/15/23 [History Last Taken 12/17/23] lacosamide 150 mg tablet 150 mg PO BID 06/15/23 [History Last Taken 12/18/23] acetaminophen 325 mg capsule 650 mg PO Q6H PRN pain 10/12/23 [History Last Taken 12/17/23] clobazam 10 mg tablet 5 mg PO DAILY 10/12/23 [History Last Taken 12/17/23] ferrous sulfate 325 mg (65 mg iron) tablet,delayed release 325 mg PO DAILY 10/12/23 [History Last Taken 12/18/23] hydralazine 10 mg tablet 10 mg PO TID 10/12/23 [History Last Taken 12/18/23] calcium carbonate (Calcium 500) 500 mg PO Q4H PRN GERD 12/14/23 [History Last Taken Unknown] daptomycin 500 mg/50 mL in 0.9 % sodium chloride intravenous piggyback 500 mg IV DAILY 12/14/23 [History Last Taken 12/18/23] fluticasone propionate 44 mcg/actuation HFA aerosol inhaler 1 inh inhalation QHS 12/14/23 [History Last Taken 12/17/23] insulin lispro 100 unit/mL subcutaneous pen See Protocol subcut BIDCM DIABETES 12/14/23 [History Last Taken 12/18/23] latanoprost 0.005 % eye drops 1 drp EACH EYE QPM 12/14/23 [History Last Taken 12/12/23] metformin 1,000 mg tablet 1,000 mg PO BID 12/14/23 [History Last Taken 12/18/23] pregabalin 150 mg capsule 150 mg PO BID 12/14/23 [History Last Taken 12/18/23] sennosides 8.6 mg-docusate sodium 50 mg tablet (Senexon-S) 1 tab-cap PO DAILY PRN constipation 12/14/23 [History Last Taken Unknown] timolol maleate 0.5 % eye drops 1 drp EACH EYE BID 12/14/23 [History Last Taken 12/18/23] amlodipine 5 mg tablet 5 mg PO QHS 12/18/23 [History Last Taken 12/17/23] heparin, porcine (PF) 100 unit/mL intravenous syringe (Heparin Lock Flush (Porcine) (PF)) 250 unit IV BID IV ANTIBIOTIC THERAPY 12/18/23 [History Last Taken 12/18/23] mirtazapine 30 mg tablet 30 mg PO QHS 12/18/23 [History Last Taken Unknown] ondansetron HCl 8 mg tablet 8 mg PO Q8H PRN Nausea 12/18/23 [History Last Taken Unknown] Allergy/AdvReac Type Severity Reaction Status Date / Time amoxicillin [From Augmentin] Allergy Rash Verified 12/18/23 14:50 clavulanic acid Allergy Rash Verified 12/18/23 14:50 [From Augmentin] escitalopram [From Lexapro] Allergy Rash Verified 12/18/23 14:50 shellfish derived Allergy Unknown Verified 12/18/23 14:50 hydroxychloroquine AdvReac Severe Unknown Verified 12/18/23 14:50 [From Plaquenil] house dust AdvReac NEEDS Verified 12/18/23 14:50 FOLLOW-UP perfume AdvReac Unknown Verified 12/18/23 14:50 pineapple AdvReac Rash Verified 12/18/23 14:50 quinine AdvReac Unknown Verified 12/18/23 14:50 strawberry AdvReac Rash Verified 12/18/23 14:50 Sulfa (Sulfonamide AdvReac Unknown Verified 12/18/23 14:50 Antibiotics) Family History Brother Heart disease Hx CABG Hypertension Diabetes Mother Hypertension Surgical History History of breast surgery History of hysterectomy History of permanent cardiac pacemaker placement (11/15/17) Social History household members: spouse Smoking Status: Never smoker alcohol intake: never substance use type: does not use caffeine: No what type of physical activity do you participate in: none seatbelt use: always do you feel safe at home: Yes Physical Exam Const alert, oriented x3 and no apparent distress General Appearance: cooperative HEENT normocephalic and head/scalp atraumatic Eyes PERRL and EOMs intact bilaterally Neck supple and No nodes Resp normal air movement and clear to auscultation bilaterally Cardio regular rate and regular rhythm GI soft to palpation, non-tender and non-distended Extremity General Extremity: Negative for edema Skin no rashes or lesions noted Neuro CN's II-XII intact bilaterally Lab / Micro Data Attestation: I reviewed the patient's lab results. 12/20/23 06:13 12/20/23 06:13 Labs: Laboratory Results - last 24 hr 12/19/23 11:36: POC Glucose 182 H 12/19/23 17:00: POC Glucose 143 H 12/19/23 22:13: POC Glucose 200 H 12/20/23 06:13: WBC 8.1, RBC 3.35 L, Hgb 9.2 L, Hct 30.9 L, MCV 92.2, MCH 27.5, MCHC 29.8 L, RDW Std Deviation 60.3 H, RDW Coeff of Ernesto 18.1 H, Plt Count 175, MPV 10.4, Immature Gran % (Auto) 0.600, Neut % (Auto) 59.5, Lymph % (Auto) 24.2, [place] % (Auto) 11.7 H, Eos % (Auto) 3.6, Baso % (Auto) 0.4, Absolute Neuts (auto) 4.8, Absolute Lymphs (auto) 1.96, Nucleated RBC % 0, Sodium 136, Potassium 4.5, Chloride 109 H, Carbon Dioxide 23.0, Anion Gap 4 L, BUN 20 H, Creatinine 1.23 H, Estim Creat Clear Calc 40.41, Est GFR (MDRD) Af Amer 55 L, Est GFR (MDRD) Non-Af 46 L, BUN/Creatinine Ratio 16.3, Glucose 191 H, Calcium 8.4 L, Phosphorus 3.5, Magnesium 1.8 12/20/23 06:49: POC Glucose 184 H Micro: Microbiology 12/18/23 16:00 Urine, Catheterized Urine Culture - Preliminary Yeast Like Organism
[2023-12-20 12:59] LABS: Bedside Glucose 186 mg/dL (74-106)
[2023-12-20 13:45] LABS: CPK Total, Creatine Kinase 29 U/L (26-192)
--- NOTE | 2023-12-20 14:50 | RAD_ITS ---
STUDY: X-RAY CHEST REASON FOR EXAM: Female, 73 years old. pic placement TECHNIQUE: PICC line placement. COMPARISON: Comparison is made with prior study December 18, 2023. FINDINGS: A left-sided PICC line catheter has been placed with the tip in the mid superior vena cava. Stable appearance of the right PICC line catheter. The lungs are clear and expanded. There is no demonstrated pleural abnormality. There is moderate cardiac enlargement. A left-sided dual-chamber pacemaker seen. Normal mediastinum and jannette. Normal visualized pulmonary arteries. There is atherosclerotic calcification of the aortic arch with tortuosity. Normal visualized thoracic spine. Normal visualized ribs, clavicles, and shoulders. There is no demonstrated abnormality of the visualized soft tissue structures of the upper abdomen. RAD/CXR for Line Placement IMPRESSION: The tip of the left-sided PICC line catheter is in the mid portion of the superior vena cava. Electronically Signed: Paresh Kebede MD at 15:03 EDT ,
--- NOTE | 2023-12-20 14:59 | PRO.PCM_ITS ---
Procedure Report Date of Procedure: 12/20/23 Assessment & Plan Assessment/Plan (1) Chronic UTI: Procedures Radiology Radiology Access Procedures: PICC Procedure Time Out Time Out Informed consent given: Yes Consent signed: Yes Time out checklist: patient, procedure, site marked/identified, positioning of patient, supplies available and allergies confirmed Time out staff in room: Yes Time out verified: Yes Time out date: 12/20/23 Time out time: 13:47 PICC Line Consent Screening tool completed:: Yes Consent obtained:: Yes Consent given by (patient or responsible constitution party):: patient Insertion Reason for Insertion: Inspector Raw Quartz Medication Date of Insertion: 12/20/23 Ok to use: Yes Type of PICC inserted: Dual Power PICC PICC Lot #: [id number] PICC Reference #: [id number] Ultrasound/Equipment Used: Probe Cover Kit Trimmed Length (cm): 44 Insertion Length (cm): 44 Exposed Length (cm): 0 Tip Placement: SVC (Superior Vena Cava) Placement Confirmation: Xray Insertion Vein: Left Basilic Insertion Attempts: 1 Dressing Applied: Statlock and Tegaderm CHG Arm Measurement above site (in cm): 28 Patient Tolerated Procedure: Well Threading Difficulties: No Comments Comment: Patient identity was verified with two patient identifiers. Informed consent was obtained and time-out was completed. Hands were sanitized. The patient was positioned supine with left arm at 90 degrees. The patient does have a left anterior chest wall pacer. Per patient, this pacer has been present for some time and is actually due for a battery replacement. The patient also has a pre-existing right upper extremity PICC. Per Dr. Woods, his PICC line is to remain in place until successful placement of alternate PICC. The patient's upper arm vasculature was assessed using ultrasound. Patency of the left basilic vein was confirmed and the vein was externally marked. An external measurement was obtained of 44 cm. External leads were applied to the patient's right upper chest and laterally and inferior of the umbilicus on the mid axillary line. Cap, mask, and prep gloves were donned. The underdrape was placed under the patient's arm. The site was prepped with chlorhexidine, and tourniquet was loosely applied. Prep gloves were discarded, and hands were sanitized. The sterile kit was opened with additional supplies dropped in. Sterile gown and gloves were donned, and the patient was draped. The sterile kit was assembled with needle, introducer, needless connectors, and each catheter lumen flushed with sterile normal saline. The marked site of insertion was anesthetized with 1% lidocaine from the kit. Patient tolerated well. The left basilic vein was then accessed using ultrasound guidance and guidewire was inserted to safety shalini. The tourniquet was released. The access needle was removed while securing the guidewire in place. The site was again anesthetized with 1% lidocaine, prior to insertion of introducer sheath and dilator. Patient tolerated the insertion well. The catheter was trimmed to a length of 44 cm. Using 3C guidance, the catheter was then inserted through the introducer sheath, slowly. There was no resistance on insertion. The catheter followed the expected course of the vessel using 3CG tracking. The introducer sheath was retracted and peeled away, incrementally, while keeping the catheter secured. The catheter was inserted to an insertion length of 44 cm, leaving 0 cm external. The stylet was removed. A flushed needleless connector was attached to the lumen. Aspiration of the lumen was performed to remove any air and confirm blood return. Blood return was verified and each lumen was flushed with 10 ml of sterile normal saline in a pulsatile fashion. The each lumen was clamped with the last pulsed flush. Total sterile flushes used for the insertion was 7 10 ml syringes, 2 from the kit. Finally, the insertion site was cleaned with chlorhexidine, and the catheter was secured using a StatLock. The site was covered with a Tegaderm CHG Dressing and disinfecting caps were applied. A chest x-ray was obtained to confirm tip placement. Radiologist, Dr. Kebede, confirmed appropriate placement within the SVC. Baseline arm circumference was obtained at the insertion site and measured 28 cm. The patient was provided with a patient education handout on PICC line care and verbalized understanding of infection prevention, heavy lifting restriction, maintaining mobility, and watching for any signs of infection. The charge nurse is aware that the PICC line is ready for use and the pre-existing PICC may be removed.
--- NOTE | 2023-12-20 15:07 | CASEMGMT ---
Social Work SW spoke w/pt in room, confirmed plan is for pt to return to [facility] at discharge. longterm list is not needed. Pt states her daughter in law Monty is her main contact, and that her son, daughter in law and are all her healthcare POAs. SW called [facility], spoke w/Treva. 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 SW asked her to fax over POA papers, she states is POA but daughter in law Monty is the main contact. Updates will be sent today via [employer]. Plan: Return to [facility] when ready. LUCIEN Brewster
[2023-12-20] MEDS: DAPTOmycin 500mg/10ml Vial 500 MG in 0.9% Normal Saline (50mL Bag) 50 ML 100 MG IV (15:31)
[2023-12-20] MEDS: 0.9 % NaCl (Sterile) Posiflush 10 mL IV (15:32)
[2023-12-20 17:29] LABS: Bedside Glucose 143 mg/dL (74-106)
[2023-12-20] MEDS: amLODIPine 5 MG Tablet PO (20:58)
[2023-12-20] MEDS: Mirtazapine 30 MG Tablet PO (20:59)
[2023-12-20] MEDS: Acetaminophen 325 MG Tablet 650 MG PO (20:59)
[2023-12-20] MEDS: Latanoprost 0.005% 1 Bottle 1 DRP EACH EYE (21:00)
[2023-12-20] MEDS: Insulin Glargine-YFGN 100 UNIT/ML Pen 12 UNIT SC (21:05)
[2023-12-20 22:32] LABS: Bedside Glucose 301 mg/dL (74-106)
[2023-12-21] VITALS (10 sets, daily range): BP systolic 124–161; BP diastolic 49–74; PULSE 60–61; RESP 16–18; TEMP 36.6–37.8; O2SAT 94–98; BMI 31.5
[2023-12-21] MEDS: Carbidopa/Levodopa 10/100 Tablet PO ×3 (06:09→21:41)
[2023-12-21] MEDS: hydrALAZINE 10 MG Tablet PO ×3 (06:09→21:40)
[2023-12-21] MEDS: Insulin Lispro 100 UNIT/ML INSULN.PEN SC ×4 (06:09→21:39)
[2023-12-21 06:31] LABS: Bedside Glucose 205 mg/dL (74-106)
--- NOTE | 2023-12-21 08:29 | PCM.PN.GU ---
Subjective Subjective Complaining of right flank pain and diffuse body aches today. New line in left upper arm. Objective Data Objective Data Vital Signs: Vital Signs Temp Pulse Resp BP Pulse Ox O2 Del Method O2 Flow Rate 98.2 F 60 16 161/74 H 97 Room Air 2 12/21/23 06:06 12/21/23 06:09 12/21/23 06:06 12/21/23 06:09 12/21/23 07:31 12/21/23 07:31 12/19/23 22:00 Oxygen Flow Rate (L/min) 2 Oxygen Delivery Method Room Air Weight: 77.8 kg Body Mass Index (BMI) 31.5 Intake & Output: Intake and Output for Last 24 Hours 12/19/23 12/20/23 12/21/23 23:59 23:59 23:59 Intake Total 760 / 760 260 / 260 Output Total 1550 / 1550 2300 / 3300 1700 / 1700 Balance -790 / -790 -2040 / -3040 -1700 / -1700 Lab / Micro Data 12/20/23 06:13 12/20/23 06:13 Labs: Laboratory Results - last 24 hr 12/20/23 06:13: Total Creatine Kinase 29 12/20/23 12:04: POC Glucose 186 H 12/20/23 17:03: POC Glucose 143 H 12/20/23 21:05: POC Glucose 301 H 12/21/23 06:08: POC Glucose 205 H Micro: Microbiology 12/18/23 15:10 Blood Culture (Wb) - Pic Blood Culture - Preliminary No growth in 48 hours. 12/18/23 15:25 Blood Culture (Wb) - Pic Blood Culture - Preliminary No growth in 48 hours. 12/18/23 16:00 Urine, Catheterized Urine Culture - Final Sandy albicans 12/18/23 15:25 Mucosa - Nasopharyngeal SARS-CoV-2, Influenza & RSV (PCR) - Final Radiography Diagnostic Testing: Radiology Impression Chest X-Ray 12/20/23 14:50 IMPRESSION: The tip of the left-sided PICC line catheter is in the mid portion of the superior vena cava. Electronically Signed: Paresh Kebede MD at 15:03 EDT , Physical Exam Narrative Right CVA tenderness today alfredo draining clear yellow urine Const alert, oriented x3 and no apparent distress Assessment & Plan Assessment/Plan (1) Chronic UTI: PLAN: culture growing yeast from urine, infectious disease following continue alfredo until UTI is treated and then trial of void no further surgical intervention planned. she still does have a right stone, but it is in the renal parenchyma and is not able to be removed, and is not causing a concern. No stones in the urinary collecting system (2) Fever: (3) Hypoxia: (4) Urinary retention:
--- NOTE | 2023-12-21 09:50 | PCM.PN.HOSP ---
Reason for Visit Reason for Visit: Diagnoses Urinary tract infection, site not specified (12/19/23) Hypoxemia (12/19/23) Retention of urine, unspecified (12/19/23) Fever, unspecified (12/19/23) Objective Data Objective Data Vital Signs: Vital Signs Temp Pulse Resp BP Pulse Ox O2 Del Method O2 Flow Rate 98.4 F 60 16 132/64 H 97 Room Air 2 12/21/23 07:00 12/21/23 07:00 12/21/23 07:00 12/21/23 07:00 12/21/23 07:31 12/21/23 07:31 12/19/23 22:00 Oxygen Flow Rate (L/min) 2 Oxygen Delivery Method Room Air Weight: 171 lb 8.314 oz Body Mass Index (BMI) 31.5 Intake & Output: Intake and Output for Last 24 Hours 12/19/23 12/20/23 12/21/23 23:59 23:59 23:59 Intake Total 760 / 760 260 / 260 Output Total 1550 / 1550 2300 / 3300 1700 / 1700 Balance -790 / -790 -2040 / -3040 -1700 / -1700 Lab / Micro Data 12/20/23 06:13 12/20/23 06:13 Labs: Laboratory Results - last 24 hr 12/20/23 06:13: Total Creatine Kinase 29 12/20/23 12:04: POC Glucose 186 H 12/20/23 17:03: POC Glucose 143 H 12/20/23 21:05: POC Glucose 301 H 12/21/23 06:08: POC Glucose 205 H Micro: Microbiology 12/18/23 15:10 Blood Culture (Wb) - Pic Blood Culture - Preliminary No growth in 48 hours. 12/18/23 15:25 Blood Culture (Wb) - Pic Blood Culture - Preliminary No growth in 48 hours. 12/18/23 16:00 Urine, Catheterized Urine Culture - Final Sandy albicans 12/18/23 15:25 Mucosa - Nasopharyngeal SARS-CoV-2, Influenza & RSV (PCR) - Final Radiography Diagnostic Testing: Radiology Impression Chest X-Ray 12/20/23 14:50 IMPRESSION: The tip of the left-sided PICC line catheter is in the mid portion of the superior vena cava. Electronically Signed: Paresh Kebede MD at 15:03 EDT , Physical Exam Narrative Seen and examined. Dickson catheter inserted. States she had 6 weeks of IV daptomycin for chronic UTI. Waiting for medical records from outside hospital. Moving bowel. Physical exam General: Alert, Oriented x3, Cooperative HEENT: Atraumatic, PERRLA, EOMI, Normocephalic Oral: No Gingival or Mucosal Lesions/ Ulcerations Neck: Supple, No JVD, Negative Carotid Bruits Chest wall/Lungs: Air entry diminished in bilateral lung bases. No crepitation/rhonchi Cardiovascular: Regular rate, Regular Rhythm, Normal S1, Normal S2, No M/G/R Abdomen: Bowel Sounds Present, Soft, Non Tender, Non-Distended : Dickson catheter. No dysuria. No renal angle tenderness. No suprapubic tenderness. Extremities: No edema, Capillary Refill Less than 3 Seconds Skin: Right arm PICC line. No tenderness or induration or clinically thrombophlebitis Musculoskeletal: No Tenderness to Palpation of Joints or Extremities. ROM restricted Neurological: Cranial nerves II-XII grossly intact, DTR 2+/4. No acute focal neurological deficit. Psych/Mental Status: Normal Affect, Appropriate. Assessment & Plan Assessment/Plan (1) Chronic UTI: (2) Fever: PLAN: Plan Patient is a 73-year-old lady who is currently being treated for chronic UTI with VRE resident at an extended care facility brought in with altered mental status and fever 1. Acute metabolic encephalopathy ? Secondary to pyelonephritis 12/19: Acute encephalopathy resolved. 2. Acute pyelonephritis ? 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 Daptomycin can be a source of pneumonitis. Chest x-ray shows no acute cardiopulmonary abnormality. Imaging studies obtained in the ED did demonstrate distended bladder, right hydronephrosis and hydroureter with perinephric and periureteral inflammatory stranding no obstructing stone noted. Patient admitted to regular nursing floor started on broad-spectrum antibiotic therapy with cefepime and linezolid with consultation placed to ID and urology. Case was discussed with Dr. Young urology. The patient had cystoscopy, right retrograde pyelogram and stent removal after she passed renal stone. Patient was last admitted in October 2022 for hypokalemia and UTI due to Enterococcus faecalis. Last urine culture in September 2023 shows VRE, [id number]. 12/20: Discussed with the ID. Unclear indication of IV daptomycin ordered as an outpatient by different ID. Medical record from OSH ordered but not yet received. Continue daptomycin and cefepime. Changed to left arm. Will continue to blood culture negative so far. 12/20: No high-grade fever. Last low-grade fever 99.3 Fahrenheit on 12/19 3. Fever secondary to acute pyelonephritis. Patient was PICC line for more than 6 weeks. The plan is to discontinue PICC line in a.m. and reinsert a new one if indicated for long-term antibiotic therapy. Chest x-ray reviewed and shows and shows tip of the PICC line in cephalic vein. ID consult reviewed and recommended PICC line removal. Further decision about PICC line after rule out PICC line related bacteremia. 4.? Anemia - Secondary to chronic disorder monitoring H&H and transfuse if patient becomes symptomatic or hemoglobin falls below? 7 5.? Acute kidney injury.? Patient baseline creatinine 0.75 creatinine on admission was 1.34 patient has been started on IV fluid with subsequent monitoring with daily BMPs ordered 6.? Hypertension - Blood pressure controlled, home medications continued with dose adjustment as needed 7.? Diabetes mellitus type II -patient's oral hypoglycemics held. Placed on long acting insulin, Accu-Cheks a.c. and at bedtime and covered with sliding scale insulin 8.? Seizure disorder ? Did continue patient antiseizure medications 9.? Paroxysmal A. fib ?Rate controlled.? Patient not on systemic anticoagulation 10.? Tachybradycardia syndrome ? Status post pacemaker placement 11.? DVT prophylaxis SC Lovenox Clinical Impression(s) from Imaging Studies Chest X-Ray 12/18/23 15:31 IMPRESSION: No acute cardiopulmonary process identified. Right PICC tip at the level of the right brachiocephalic vein; consider repositioning. Electronically Signed: Tg Sylvester MD at 15:44 EDT , Chest/Abdomen/Pelvis CT 12/18/23 18:39 IMPRESSION: Diffuse interstitial edema in both lung barron with multifocal pneumonitis and dependent atelectasis. Cardiomegaly with calcified coronary vessels, pacer leads seen along the base of the heart Right hydronephrosis and hydroureter with perinephric and periureteral inflammatory stranding. No obstructing stone noted, findings likely due to recent presence of a ureteral stent and recent removal Bilateral simple renal cysts, bilateral nonobstructing renal stones, no specific follow-up needed No free intraperitoneal fluid, air, or suspicious adenopathy Degenerative bony changes Electronically Signed: Miah Hitchcock MD at 20:40 EDT , Charges/Coding Visit Charges Inpatient E&M: 31395 Subs Hosp L2
[2023-12-21] MEDS: Ferrous Sulfate 325 MG Tablet PO (10:00)
[2023-12-21] MEDS: Aspirin E.C. 81 MG Tablet PO (10:01)
[2023-12-21] MEDS: Pregabalin 75 MG Capsule 150 MG PO ×2 (10:01→21:41)
[2023-12-21] MEDS: Allopurinol 100 MG Tablet PO (10:01)
[2023-12-21] MEDS: Cefepime HCl 2 GM in 0.9% Normal Saline (100mL MB+) 100 ML IV ×2 (10:01→21:41)
[2023-12-21] MEDS: Timolol 0.5% 5ML OPTH.BTL 1 DRP EACH EYE ×2 (10:01→21:39)
[2023-12-21] MEDS: Citalopram 10 MG Tablet PO (10:02)
[2023-12-21] MEDS: cloBAZam 10 MG TABLET 5 MG PO (10:07)
--- NOTE | 2023-12-21 10:09 | PCM.PN.ID ---
Physical Exam Narrative Feeling better, no fever overnight, mild back pain Const alert and no apparent distress General Appearance: cooperative Resp normal air movement and clear to auscultation bilaterally Cardio regular rate and regular rhythm GI soft to palpation, non-tender and non-distended Skin no rashes or lesions noted ID ID: Route of nutrition/ use of supplements: [] Nutritional Intake: [] IV Site: [] Dicskon Catheter: []
[2023-12-21] MEDS: Lacosamide 100 MG Tablet 150 MG PO ×2 (10:11→21:40)
[2023-12-21] MEDS: 0.9% Normal Saline (250mL Bag) 250 ML 15 ML IV (11:18)
[2023-12-21 11:43] LABS: Bedside Glucose 204 mg/dL (74-106)
[2023-12-21] MEDS: DAPTOmycin 500mg/10ml Vial 500 MG in 0.9% Normal Saline (50mL Bag) 50 ML 100 MG IV (13:35)
[2023-12-21 16:52] LABS: Bedside Glucose 161 mg/dL (74-106)
[2023-12-21] MEDS: Acetaminophen 325 MG Tablet 650 MG PO (19:58)
[2023-12-21] MEDS: Latanoprost 0.005% 1 Bottle 1 DRP EACH EYE (21:39)
[2023-12-21] MEDS: Insulin Glargine-YFGN 100 UNIT/ML Pen 12 UNIT SC (21:40)
[2023-12-21] MEDS: amLODIPine 5 MG Tablet PO (21:41)
[2023-12-21] MEDS: Mirtazapine 30 MG Tablet PO (21:47)
[2023-12-21 22:07] LABS: Bedside Glucose 225 mg/dL (74-106)
[2023-12-22] VITALS (8 sets, daily range): BP systolic 117–163; BP diastolic 55–71; PULSE 60–64; RESP 14–18; TEMP 36.3–37.1; O2SAT 95–98; BMI 31.6
[2023-12-22] MEDS: hydrALAZINE 10 MG Tablet PO ×2 (06:00→14:14)
[2023-12-22] MEDS: Carbidopa/Levodopa 10/100 Tablet PO ×2 (06:00→14:15)
[2023-12-22] MEDS: Insulin Lispro 100 UNIT/ML INSULN.PEN SC ×3 (06:10→16:28)
[2023-12-22 06:25] LABS: Bedside Glucose 270 mg/dL (74-106)
[2023-12-22] MEDS: 0.9% Normal Saline (250mL Bag) 250 ML 15 ML IV (07:41)
[2023-12-22] MEDS: Cefepime HCl 2 GM in 0.9% Normal Saline (100mL MB+) 100 ML IV (09:41)
[2023-12-22] MEDS: Citalopram 10 MG Tablet PO (09:42)
[2023-12-22] MEDS: Allopurinol 100 MG Tablet PO (09:42)
[2023-12-22] MEDS: Timolol 0.5% 5ML OPTH.BTL 1 DRP EACH EYE (09:42)
[2023-12-22] MEDS: Ferrous Sulfate 325 MG Tablet PO (09:42)
[2023-12-22] MEDS: Pregabalin 75 MG Capsule 150 MG PO (09:42)
[2023-12-22] MEDS: Aspirin E.C. 81 MG Tablet PO (09:42)
[2023-12-22] MEDS: Lacosamide 100 MG Tablet 150 MG PO (09:49)
[2023-12-22] MEDS: cloBAZam 10 MG TABLET 5 MG PO (09:49)
[2023-12-22 11:59] LABS: Bedside Glucose 219 mg/dL (74-106)
[2023-12-22 12:27] LABS: AST(SGOT) 50 U/L (15-37); Alanine Aminotransfer ALT/SGPT < 6 U/L (13-56); Albumin, Serum 2.1 g/dL (3.2-5.0); Alkaline Phosphatase 119 U/L (45-117); Anion Gap 4 (5-15); BUN 23 mg/dL (7-18); BUN/Creat Ratio 18.4 RATIO (10-20); Bilirubin, Direct 0.15 mg/dL (0.00-0.30); Calcium,Total 9.1 mg/dL (8.5-10.1); Chloride 109 mmol/L (98-107); Creatinine, Serum 1.25 mg/dL (0.55-1.02); EST Glomerular Filtration Rate 45 mL/min (>60); Est Glom Filt Rate - Afr Amer 54 mL/min (>60); Estimated Creatinine Clearance 39.93 ml/min; Globulin 5.5 g/dL (2.2-4.2); Glucose 252 mg/dL (74-106); Potassium 4.7 mmol/L (3.5-5.1); Protein, Total 7.6 g/dL (6.4-8.2); Sodium Level 136 mmol/L (136-145)
[2023-12-22] MEDS: DAPTOmycin 500mg/10ml Vial 500 MG in 0.9% Normal Saline (50mL Bag) 50 ML 100 MG IV (12:35)
--- NOTE | 2023-12-22 13:44 | PN.ID_ITS ---
Physical Exam Narrative No fever last night, feeling better Const alert and no apparent distress General Appearance: cooperative Resp normal air movement and clear to auscultation bilaterally Cardio regular rate and regular rhythm GI soft to palpation, non-tender and non-distended Skin no rashes or lesions noted ID ID: Route of nutrition/ use of supplements: [] Nutritional Intake: [] IV Site: [] Dickson Catheter: [] Assessment & Plan Assessment/Plan (1) Chronic UTI: (2) Fever: PLAN: Will request records from [place]. Per ECF notes, plan per ID Dr. Analia morales was for dapto from 11/17-12/25/23; not clear why she was on such a long course. Picc replaced. Went to OR 12/17/[address] Young for stent removal, no residual stones seen. Fever resolved. Bcx neg. Ucx only small amount of yeast. Will stop cefepime, ok for her to go back to ECF to finish last 3 days dapto. Will follow
--- NOTE | 2023-12-22 14:00 | PCM.TXEXTCAR ---
Diet Diet Order/Speech Therapy: 12/18/23 22:39 Diet: Consistent Carb - Calorie Controlled Food consistency:: Regular Liquid Consistency:: Regular/Thin How many daily calories?: 1500 calorie Routine Orders/Code Status Suppository Type: Dulcolax 10mg Suppository Frequency: Daily PRN Code Status: DNRCC-A Therapies Weight Bearing: Weight bearing as tolerated Extremity Affected:: Bilateral Lower Physical Therapy: Eval and Treat Occupational Therapy: Eval and Treat Speech Therapy: Eval and Treat Problem/Diagnosis (1) Chronic UTI: Status: Chronic Code(s): N39.0 - Urinary tract infection, site not specified (2) Fever: Status: Acute Code(s): R50.9 - Fever, unspecified Plan Patient is a 73-year-old lady who is currently being treated for chronic UTI with VRE resident at an extended care facility brought in with altered mental status and fever 1. Acute metabolic encephalopathy ? Secondary to pyelonephritis 12/19: Acute encephalopathy resolved. 2. Acute pyelonephritis ? 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 Daptomycin can be a source of pneumonitis. Chest x-ray shows no acute cardiopulmonary abnormality. Imaging studies obtained in the ED did demonstrate distended bladder, right hydronephrosis and hydroureter with perinephric and periureteral inflammatory stranding no obstructing stone noted. Patient admitted to regular nursing floor started on broad-spectrum antibiotic therapy with cefepime and linezolid with consultation placed to ID and urology. Case was discussed with Dr. Young urology. The patient had cystoscopy, right retrograde pyelogram and stent removal after she passed renal stone. Patient was last admitted in October 2022 for hypokalemia and UTI due to Enterococcus faecalis. Last urine culture in September 2023 shows VRE, [id number]. 12/20: Discussed with the ID. Unclear indication of IV daptomycin ordered as an outpatient by different ID. Medical record from OSH ordered but not yet received. Continue daptomycin and cefepime. Changed to left arm. Will continue to blood culture negative so far. 12/20: No high-grade fever. Last low-grade fever 99.3 Fahrenheit on 12/19 3. Fever secondary to acute pyelonephritis. Patient was PICC line for more than 6 weeks. The plan is to discontinue PICC line in a.m. and reinsert a new one if indicated for long-term antibiotic therapy. Chest x-ray reviewed and shows and shows tip of the PICC line in cephalic vein. ID consult reviewed and recommended PICC line removal. Further decision about PICC line after rule out PICC line related bacteremia. 4.? Anemia - Secondary to chronic disorder monitoring H&H and transfuse if patient becomes symptomatic or hemoglobin falls below? 7 5.? Acute kidney injury.? Patient baseline creatinine 0.75 creatinine on admission was 1.34 patient has been started on IV fluid with subsequent monitoring with daily BMPs ordered 6.? Hypertension - Blood pressure controlled, home medications continued with dose adjustment as needed 7.? Diabetes mellitus type II -patient's oral hypoglycemics held. Placed on long acting insulin, Accu-Cheks a.c. and at bedtime and covered with sliding scale insulin 8.? Seizure disorder ? Did continue patient antiseizure medications 9.? Paroxysmal A. fib ?Rate controlled.? Patient not on systemic anticoagulation 10.? Tachybradycardia syndrome ? Status post pacemaker placement 11.? DVT prophylaxis SC Lovenox Clinical Impression(s) from Imaging Studies Chest X-Ray 12/18/23 15:31 IMPRESSION: No acute cardiopulmonary process identified. Right PICC tip at the level of the right brachiocephalic vein; consider repositioning. Electronically Signed: Tg Sylvester MD at 15:44 EDT Reading Location ID and State: [facility] / [place] Tel , Service support , Chest/Abdomen/Pelvis CT 12/18/23 18:39 IMPRESSION: Diffuse interstitial edema in both lung barron with multifocal pneumonitis and dependent atelectasis. Cardiomegaly with calcified coronary vessels, pacer leads seen along the base of the heart Right hydronephrosis and hydroureter with perinephric and periureteral inflammatory stranding. No obstructing stone noted, findings likely due to recent presence of a ureteral stent and recent removal Bilateral simple renal cysts, bilateral nonobstructing renal stones, no specific follow-up needed No free intraperitoneal fluid, air, or suspicious adenopathy Degenerative bony changes Electronically Signed: Miah Hitchcock MD at 20:40 EDT , Allergies/Procedures Done in Hospital Allergies amoxicillin [From Augmentin] Allergy (Verified 12/18/23 14:50) Rash RASH ON FACE clavulanic acid [From Augmentin] Allergy (Verified 12/18/23 14:50) Rash RASH ON FACE escitalopram [From Lexapro] Allergy (Verified 12/18/23 14:50) Rash shellfish derived Allergy (Verified 12/18/23 14:50) Unknown hydroxychloroquine [From Plaquenil] Adverse Reaction (Severe, Verified 12/18/23 14:50) Unknown house dust Adverse Reaction (Verified 12/18/23 14:50) NEEDS FOLLOW-UP perfume Adverse Reaction (Verified 12/18/23 14:50) Unknown pineapple Adverse Reaction (Verified 12/18/23 14:50) Rash quinine Adverse Reaction (Verified 12/18/23 14:50) Unknown strawberry Adverse Reaction (Verified 12/18/23 14:50) Rash Sulfa (Sulfonamide Antibiotics) Adverse Reaction (Verified 12/18/23 14:50) Unknown Type of Care/Length of Stay Estimated LOS: Convalescent Care Less Than 30 days Type of Care Needed: Skilled Rehab Potential: Good Prognosis: Good Additional Orders/Day of Discharge Day of Discharge: 12/22/23 Discharge Plan Admission Admit Date/Time: 12/19/23 12:05 Primary Reason for Your Visit: Chronic recurrent UTI. Attending Provider: Aly Randhawa Primary Care Provider: Hannah Riggs Consulting Providers: Marie Young; Justin March; Alexey Capellan; Ronak Espinoza Discharge Orders/Prescriptions Prescriptions: New daptomycin 500 mg Recon Soln 500 mg IV Q24H 3 Days Qty: 3 0RF Rx Instructions: dx: VRE infection Continued allopurinol 100 mg tablet 100 mg PO DAILY aspirin [Adult Low Dose Aspirin] 81 mg tablet,delayed release (DR/EC) 81 mg PO DAILY Januvia 50 mg Tablet 100 mg PO DAILY Rx Instructions: with first meal acetaminophen 325 mg capsule 650 mg PO Q6H PRN (Reason: pain) clobazam 10 mg tablet 5 mg PO DAILY ferrous sulfate 325 mg (65 mg iron) tablet,delayed release (DR/EC) 325 mg PO DAILY hydralazine 10 mg tablet 10 mg PO TID alendronate 70 mg tablet 70 mg PO SA carbidopa-levodopa 10-100 mg tablet 1 tab PO TID citalopram 10 mg tablet 10 mg PO DAILY cranberry 400 mg capsule 400 mg PO TID Rx Instructions: administer with meals estradiol 0.01 % (0.1 mg/gram) cream 1 appful VAGINAL PRECIADO insulin glargine [Lantus Solostar U-100 Insulin] 100 unit/mL (3 mL) insulin pen 12 unit SUBCUT QHS lacosamide 150 mg tablet 150 mg PO BID fluticasone propionate 44 mcg/actuation HFA aerosol inhaler 1 inh inhalation QHS Rx Instructions: administer with spacer insulin lispro 100 unit/mL insulin pen See Protocol subcut BIDCM Protocol: 6. Sliding Scale Insulin Custom Condition: mg/dl range Dose/Route: Number of Units Condition: 151-200 Dose/Route: 1 Condition: 201-250 Dose/Route: 2 Condition: 251-300 Dose/Route: 3 Condition: 301-350 Dose/Route: 4 Condition: 351-400 Dose/Route: 5 Instruction: CALL IF >350 Protocol Text: Custom Sliding Scale GIVE 2 UNITS IN ADDITION TO SLIDING SCALE. Rx Instructions: CALL MD IF <50 OR > 350 latanoprost 0.005 % drops 1 drp EACH EYE QPM pregabalin 150 mg capsule 150 mg PO BID timolol maleate 0.5 % drops 1 drp EACH EYE BID sennosides-docusate sodium [Senexon-S] 8.6-50 mg tablet 1 tab-cap PO DAILY PRN (Reason: constipation) calcium carbonate [Calcium 500] 500 mg calcium (1,250 mg) tablet,chewable 500 mg PO Q4H PRN (Reason: GERD) daptomycin in 0.9 % sod chlor 500 mg/50 mL piggyback 500 mg IV DAILY Patient Comments: USE 600MG IV DAILY UNTIL 12/25/2023 Rx Instructions: administer over 30 mins amlodipine 5 mg tablet 5 mg PO QHS mirtazapine 30 mg tablet 30 mg PO QHS heparin, porcine (PF) [Heparin LockFlush(Porcine)(PF)] 100 unit/mL syringe 250 unit IV BID Rx Instructions: FOR IV ANTIBIOTIC THERAPY UNTIL 12/25/23 ondansetron HCl 8 mg tablet 8 mg PO Q8H PRN (Reason: Nausea) Changed metformin 1,000 mg tablet 500 mg PO BID Qty: 60 0RF Referrals / Follow Up: Marie Young MD [Med Staff - Active Staff] - Within 2 Weeks Hannah Riggs DO [Primary Care Provider] - Alexey Capellan MD [Med Staff - Active Staff] - Within 1 Month Disposition Disposition (needs filled in before D/C Order can be placed): Residential Facility
--- NOTE | 2023-12-22 14:07 | PCM.DC.SUM ---
Providers Date of Admission: 12/19/23 Date of Discharge: 12/22/23 Primary Care Physician: Dr. Hannah Riggs, Consultations 12/18/23 22:38 Consult: Urology Routine Consulting Provider: Marie Young Reason for Consult: Post stent hydronephrosis EMERGENT Consult: No Notified: Yes Date Notified: 12/18/23 Time Notified: 22:36 Method of Notification: ED Physician Initiated Comments:: ok to notify in Am 12/19/23 12:18 Consult: Infectious Disease Routine Consulting Provider: Alexey Capellan Reason for Consult: Recurrent UTIs with VRE EMERGENT Consult: No Notified: Yes Date Notified: 12/19/23 Time Notified: 12:18 Method of Notification: Text Reason For Visit: FEVER Diagnosis Discharge Diagnosis (1) Chronic UTI: Status: Chronic Code(s): N39.0 - Urinary tract infection, site not specified (2) Fever: Status: Acute Code(s): R50.9 - Fever, unspecified Plan Patient is a 73-year-old lady who is currently being treated for chronic UTI with VRE resident at an [facility] care facility brought in with altered mental status and fever 1. Acute metabolic encephalopathy ? Secondary to pyelonephritis 12/19: Acute encephalopathy resolved. 2. Acute pyelonephritis ? 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 Daptomycin can be a source of pneumonitis. Chest x-ray shows no acute cardiopulmonary abnormality. Imaging studies obtained in the ED did demonstrate distended bladder, right hydronephrosis and hydroureter with perinephric and periureteral inflammatory stranding no obstructing stone noted. Patient admitted to regular nursing floor started on broad-spectrum antibiotic therapy with cefepime and linezolid with consultation placed to ID and urology. Case was discussed with Dr. Young urology. The patient had cystoscopy, right retrograde pyelogram and stent removal after she passed renal stone. Patient was last admitted in October 2022 for hypokalemia and UTI due to Enterococcus faecalis. Last urine culture in September 2023 shows VRE, [id number]. 12/20: Discussed with the ID. Unclear indication of IV daptomycin ordered as an outpatient by different ID. Medical record from OSH ordered but not yet received. Continue daptomycin and cefepime. Changed to left arm. Will continue to blood culture negative so far. 12/20: No high-grade fever. Last low-grade fever 99.3 Fahrenheit on 12/19 12/21: Discussed with ID. Blood cultures negative for more than 48 hours. Urine culture shows Sandy. Patient discharged on daptomycin 3 more days correction. Patient discharged with Dickson catheter and advised discontinuation after 3 days and spontaneous voiding trial. Follow-up with Dr. Young in 2 weeks 3. Fever secondary to acute pyelonephritis. Patient was PICC line for more than 6 weeks. The plan is to discontinue PICC line in a.m. and reinsert a new one if indicated for long-term antibiotic therapy. Chest x-ray reviewed and shows and shows tip of the PICC line in cephalic vein. ID consult reviewed and recommended PICC line removal. Further decision about PICC line after rule out PICC line related bacteremia. 4.? Anemia - Secondary to chronic disorder monitoring H&H and transfuse if patient becomes symptomatic or hemoglobin falls below? 7 5.? Acute kidney injury.? Patient baseline creatinine 0.75 creatinine on admission was 1.34 patient has been started on IV fluid with subsequent monitoring with daily BMPs ordered 12/21: BUNs/creatinine 23/1.25. Creatinine got better. Monitor kidney function in 1 week in correction. 6.? Hypertension - Blood pressure controlled, home medications continued with dose adjustment as needed 7.? Diabetes mellitus type II -patient's oral hypoglycemics held. Placed on long acting insulin, Accu-Cheks a.c. and at bedtime and covered with sliding scale insulin 12/21: Glucoses 162 270. Patient on Januvia and metformin. Metformin decreased as patient's creatinine clearance decreased to about40 mill per minute. 8.? Seizure disorder ? Did continue patient antiseizure medications 9.? Paroxysmal A. fib ?Rate controlled.? Patient not on systemic anticoagulation 10.? Tachybradycardia syndrome ? Status post pacemaker placement 11.? DVT prophylaxis SC Lovenox Microbiology Past 72 Hours 12/18/23 15:10 Blood Culture (Wb) - Pic Blood Culture - Preliminary No growth in 48 hours. 12/18/23 15:25 Blood Culture (Wb) - Pic Blood Culture - Preliminary No growth in 48 hours. 12/18/23 16:00 Urine, Catheterized Urine Culture - Final Sandy albicans Laboratory Results 12/21/23 16:24: POC Glucose 161 H 12/21/23 21:36: POC Glucose 225 H 12/22/23 06:04: POC Glucose 270 H 12/22/23 11:26: POC Glucose 219 H 12/22/23 12:00: Sodium 136, Potassium 4.7, Chloride 109 H, Carbon Dioxide 23.0, Anion Gap 4 L, BUN 23 H, Creatinine 1.25 H, Estim Creat Clear Calc 39.93, Est GFR (MDRD) Af Amer 54 L, Est GFR (MDRD) Non-Af 45 L, BUN/Creatinine Ratio 18.4, Glucose 252 H, Calcium 9.1, Total Bilirubin 0.20, Direct Bilirubin 0.15, AST 50 H, ALT < 6 L, Alkaline Phosphatase 119 H, Total Protein 7.6, Albumin 2.1 L, Globulin 5.5 H Clinical Impression(s) from Imaging Studies Chest X-Ray 12/18/23 15:31 IMPRESSION: No acute cardiopulmonary process identified. Right PICC tip at the level of the right brachiocephalic vein; consider repositioning. Electronically Signed: Tg Sylvester MD at 15:44 EDT , Chest/Abdomen/Pelvis CT 12/18/23 18:39 IMPRESSION: Diffuse interstitial edema in both lung barron with multifocal pneumonitis and dependent atelectasis. Cardiomegaly with calcified coronary vessels, pacer leads seen along the base of the heart Right hydronephrosis and hydroureter with perinephric and periureteral inflammatory stranding. No obstructing stone noted, findings likely due to recent presence of a ureteral stent and recent removal Bilateral simple renal cysts, bilateral nonobstructing renal stones, no specific follow-up needed No free intraperitoneal fluid, air, or suspicious adenopathy Degenerative bony changes Electronically Signed: Miah Hitchcock MD at 20:40 EDT , Medications at Discharge Home Medications sitagliptin phosphate 50 mg tablet (Januvia) 100 mg PO DAILY Diabetes 11/19/21 allopurinol 100 mg tablet 100 mg PO DAILY 12/10/22 aspirin 81 mg tablet,delayed release (Adult Low Dose Aspirin) 81 mg PO DAILY 12/10/22 alendronate 70 mg tablet 70 mg PO SA 06/15/23 carbidopa 10 mg-levodopa 100 mg tablet 1 tab PO TID 06/15/23 citalopram 10 mg tablet 10 mg PO DAILY 06/15/23 cranberry 400 mg capsule 400 mg PO TID 06/15/23 estradiol 0.01% (0.1 mg/gram) vaginal cream 1 appful vaginal PRECIADO 06/15/23 insulin glargine 100 unit/mL (3 mL) subcutaneous pen (Lantus Solostar U-100 Insulin) 12 unit subcut QHS 06/15/23 lacosamide 150 mg tablet 150 mg PO BID 06/15/23 acetaminophen 325 mg capsule 650 mg PO Q6H PRN pain 10/12/23 clobazam 10 mg tablet 5 mg PO DAILY 10/12/23 ferrous sulfate 325 mg (65 mg iron) tablet,delayed release 325 mg PO DAILY 10/12/23 hydralazine 10 mg tablet 10 mg PO TID 10/12/23 calcium carbonate (Calcium 500) 500 mg PO Q4H PRN GERD 12/14/23 daptomycin 500 mg/50 mL in 0.9 % sodium chloride intravenous piggyback 500 mg IV DAILY 12/14/23 fluticasone propionate 44 mcg/actuation HFA aerosol inhaler 1 inh inhalation QHS 12/14/23 insulin lispro 100 unit/mL subcutaneous pen See Protocol subcut BIDCM DIABETES 12/14/23 latanoprost 0.005 % eye drops 1 drp EACH EYE QPM 12/14/23 pregabalin 150 mg capsule 150 mg PO BID 12/14/23 sennosides 8.6 mg-docusate sodium 50 mg tablet (Senexon-S) 1 tab-cap PO DAILY PRN constipation 12/14/23 timolol maleate 0.5 % eye drops 1 drp EACH EYE BID 12/14/23 amlodipine 5 mg tablet 5 mg PO QHS 12/18/23 heparin, porcine (PF) 100 unit/mL intravenous syringe (Heparin Lock Flush (Porcine) (PF)) 250 unit IV BID IV ANTIBIOTIC THERAPY 12/18/23 mirtazapine 30 mg tablet 30 mg PO QHS 12/18/23 ondansetron HCl 8 mg tablet 8 mg PO Q8H PRN Nausea 12/18/23 daptomycin 500 mg intravenous solution 500 mg IV Q24H 3 days #3 ea 12/22/23 metformin 1,000 mg tablet 500 mg (1/2 x 1,000 mg) PO BID #60 tabs 12/22/23 Physical Exam Narrative Seen and examined. Dickson catheter inserted. States she had 6 weeks of IV daptomycin for chronic UTI. 3 more days of IV daptomycin Physical exam General: Alert, Oriented x3, Cooperative, BMI 31.58/m?, obesity grade 1 HEENT: Atraumatic, PERRLA, EOMI, Normocephalic Oral: No Gingival or Mucosal Lesions/ Ulcerations Neck: Supple, No JVD, Negative Carotid Bruits Chest wall/Lungs: Air entry diminished in bilateral lung bases. No crepitation/rhonchi Cardiovascular: Regular rate, Regular Rhythm, Normal S1, Normal S2, No M/G/R Abdomen: Bowel Sounds Present, Soft, Non Tender, Non-Distended : Dickson catheter. No dysuria. No renal angle tenderness. No suprapubic tenderness. Extremities: No edema, Capillary Refill Less than 3 Seconds Skin: Right arm PICC line. No tenderness or induration or clinically thrombophlebitis Musculoskeletal: No Tenderness to Palpation of Joints or Extremities. ROM restricted Neurological: Cranial nerves II-XII grossly intact, DTR 2+/4. No acute focal neurological deficit. Psych/Mental Status: Flat affect Weight / BMI Weight Weight: 172 lb 0.004 oz Body Mass Index (BMI) 31.6 ABG / Lab / Microbiology Data 12/20/23 06:13 12/22/23 12:00 Laboratory: Laboratory Results - last 24 hr 12/21/23 16:24: POC Glucose 161 H 12/21/23 21:36: POC Glucose 225 H 12/22/23 06:04: POC Glucose 270 H 12/22/23 11:26: POC Glucose 219 H 12/22/23 12:00: Sodium 136, Potassium 4.7, Chloride 109 H, Carbon Dioxide 23.0, Anion Gap 4 L, BUN 23 H, Creatinine 1.25 H, Estim Creat Clear Calc 39.93, Est GFR (MDRD) Af Amer 54 L, Est GFR (MDRD) Non-Af 45 L, BUN/Creatinine Ratio 18.4, Glucose 252 H, Calcium 9.1, Total Bilirubin 0.20, Direct Bilirubin 0.15, AST 50 H, ALT < 6 L, Alkaline Phosphatase 119 H, Total Protein 7.6, Albumin 2.1 L, Globulin 5.5 H Microbiology: Microbiology 12/18/23 15:10 Blood Culture (Wb) - Pic Blood Culture - Preliminary No growth in 48 hours. 12/18/23 15:25 Blood Culture (Wb) - Pic Blood Culture - Preliminary No growth in 48 hours. 12/18/23 16:00 Urine, Catheterized Urine Culture - Final Sandy albicans 12/18/23 15:25 Mucosa - Nasopharyngeal SARS-CoV-2, Influenza & RSV (PCR) - Final Meaningful Use Info Meaningful Use Meaningful Use Diagnoses (Choose all that apply): None applicable Ischemic Stroke Statin Dosing Therapy Reference: STATIN DOSE THERAPY REFERENCE: * Patients > 75 years receive moderate or high dose statin therapy. * Patients 75 years or YOUNGER should receive HIGH intensity statin dose unless contraindicated. You will be required to document reason for non-treatment if statin daily dose does not meet guidelines. HIGH DOSE STATIN THERAPY DAILY Atorvastatin > than or = to 40 mg Rosuvastatin > than or = to 20 mg Amlodipine + Atorvastatin > than or = to 2.5/40 mg Ezetimibe + Simvastatin 10/80 mg Simvastatin 80mg Discharge Plan Admission Admit Date/Time: 12/19/23 12:05 Primary Reason for Your Visit: Chronic recurrent UTI. Attending Provider: Aly Randhawa Primary Care Provider: Hannah Riggs Consulting Providers: Marie Young; Justin March; Alexey Capellan; Ronak Espinoza Discharge Orders/Prescriptions Prescriptions: New daptomycin 500 mg Recon Soln 500 mg IV Q24H 3 Days Qty: 3 0RF Rx Instructions: dx: VRE infection Continued allopurinol 100 mg tablet 100 mg PO DAILY aspirin [Adult Low Dose Aspirin] 81 mg tablet,delayed release (DR/EC) 81 mg PO DAILY Januvia 50 mg Tablet 100 mg PO DAILY Rx Instructions: with first meal acetaminophen 325 mg capsule 650 mg PO Q6H PRN (Reason: pain) clobazam 10 mg tablet 5 mg PO DAILY ferrous sulfate 325 mg (65 mg iron) tablet,delayed release (DR/EC) 325 mg PO DAILY hydralazine 10 mg tablet 10 mg PO TID alendronate 70 mg tablet 70 mg PO SA carbidopa-levodopa 10-100 mg tablet 1 tab PO TID citalopram 10 mg tablet 10 mg PO DAILY cranberry 400 mg capsule 400 mg PO TID Rx Instructions: administer with meals estradiol 0.01 % (0.1 mg/gram) cream 1 appful VAGINAL PRECIADO insulin glargine [Lantus Solostar U-100 Insulin] 100 unit/mL (3 mL) insulin pen 12 unit SUBCUT QHS lacosamide 150 mg tablet 150 mg PO BID fluticasone propionate 44 mcg/actuation HFA aerosol inhaler 1 inh inhalation QHS Rx Instructions: administer with spacer insulin lispro 100 unit/mL insulin pen See Protocol subcut BIDCM Protocol: 6. Sliding Scale Insulin Custom Condition: mg/dl range Dose/Route: Number of Units Condition: 151-200 Dose/Route: 1 Condition: 201-250 Dose/Route: 2 Condition: 251-300 Dose/Route: 3 Condition: 301-350 Dose/Route: 4 Condition: 351-400 Dose/Route: 5 Instruction: CALL IF >350 Protocol Text: Custom Sliding Scale GIVE 2 UNITS IN ADDITION TO SLIDING SCALE. Rx Instructions: CALL MD IF <50 OR > 350 latanoprost 0.005 % drops 1 drp EACH EYE QPM pregabalin 150 mg capsule 150 mg PO BID timolol maleate 0.5 % drops 1 drp EACH EYE BID sennosides-docusate sodium [Senexon-S] 8.6-50 mg tablet 1 tab-cap PO DAILY PRN (Reason: constipation) calcium carbonate [Calcium 500] 500 mg calcium (1,250 mg) tablet,chewable 500 mg PO Q4H PRN (Reason: GERD) daptomycin in 0.9 % sod chlor 500 mg/50 mL piggyback 500 mg IV DAILY Patient Comments: USE 600MG IV DAILY UNTIL 12/25/2023 Rx Instructions: administer over 30 mins amlodipine 5 mg tablet 5 mg PO QHS mirtazapine 30 mg tablet 30 mg PO QHS heparin, porcine (PF) [Heparin LockFlush(Porcine)(PF)] 100 unit/mL syringe 250 unit IV BID Rx Instructions: FOR IV ANTIBIOTIC THERAPY UNTIL 12/25/23 ondansetron HCl 8 mg tablet 8 mg PO Q8H PRN (Reason: Nausea) Changed metformin 1,000 mg tablet 500 mg PO BID Qty: 60 0RF Referrals / Follow Up: Marie Young MD [Med Staff - Active Staff] - Within 2 Weeks Hannah Riggs DO [Primary Care Provider] - Alexey Capellan MD [Med Staff - Active Staff] - Within 1 Month Disposition Disposition (needs filled in before D/C Order can be placed): [facility] Charges/Coding Visit Charges Inpatient E&M: 08786 Disch Hosp >30min
--- NOTE | 2023-12-22 14:17 | CASEMGMT ---
Social Work- SW spoke with [facility] to confirm it is okay for pt to return with IV; Treva states approval [facility] [place]
--- NOTE | 2023-12-22 14:44 | NURSING ---
Report called to nurse Tilley at [facility], pt to be picked up at 17:00.
--- NOTE | 2023-12-22 14:46 | CASEMGMT ---
Patient is ready for discharge back to [facility]. ROM[facility]. ROMI called [facility] and arranged for patient to get picked up at via wheelchair van. ROMI notified RN and field secretary. ROMI Fernández notified patient and Treva at [facility]. ROMI also called patient's and notified him. Plan: d/c back to [facility] under skilled level of care. [facility] will transport patient via wheelchair van. Aleksandra CONROY
--- NOTE | 2023-12-22 14:54 | CASEMGMT ---
ROMI sent Covid test to [facility] via [facility]. Aleksandra Nunez POOL FINISHER RAFIQ
--- NOTE | 2023-12-22 16:00 | NURSING ---
All documentation by student support counselor, Yana Rojas, reviewed by skin care instructor, Francisca NOWAKN, RN.
[2023-12-22 17:00] LABS: Bedside Glucose 206 mg/dL (74-106)
[2023-12-22 20:44] LABS: Bedside Glucose 315 mg/dL (74-106)
== END 2023-12-22 20:45 | disposition skilled nursing facility (03) | DRG 690 ==
LOC: ED 21:18 → MS3 21:28
PROVIDERS: Internal Medicine; Internal Medicine Infectious Disease; Physician Assistant; Admitting Provider Family Medicine; Emergency Provider Emergency Medicine; PCP Internal Medicine; Visit Provider Internal Medicine
DX: N13.6 Pyonephrosis (principal); N17.9 Acute kidney failure, unspecified; I49.5 Sick sinus syndrome; E11.22 Type 2 diabetes mellitus with diabetic chronic kidney disease; D50.9 Iron deficiency anemia, unspecified; B95.2 Enterococcus as the cause of diseases classified elsewhere; G40.909 Epilepsy, unspecified, not intractable, without status epilepticus; I48.0 Paroxysmal atrial fibrillation; N18.9 Chronic kidney disease, unspecified; I12.9 Hypertensive chronic kidney disease with stage 1 through stage 4 chronic kidney disease, or unspecified chronic kidney disease; E78.5 Hyperlipidemia, unspecified; Z79.4 Long term (current) use of insulin; E87.6 Hypokalemia; Z79.82 Long term (current) use of aspirin; Z95.0 Presence of cardiac pacemaker; Z79.01 Long term (current) use of anticoagulants; R09.02 Hypoxemia; N32.89 Other specified disorders of bladder; Z79.83 Long term (current) use of bisphosphonates; Z87.820 Personal history of traumatic brain injury; Z87.440 Personal history of urinary (tract) infections
CPT/HCPCS: 36415; 36569; 36592; 51702; 71045; 71250; 74176; 76000; 80048; 80053; 80076; 81001; 82550; 82962; 83605; 83735; 83880; 84100; 85025; 85610; 85730; 87040; 87086; 87088; 87426; 87631; 93005; 97161; 97166; 99284; J0878; J7030; J7040; J7050; J7120; A4216; J2405; J3490

== ENCOUNTER → 2023-12-27 05:00 | Outpatient (REF) | payer MEDICARE, MEDICAID, SELFPAY ==
[2023-12-27 09:03] LABS: Absolute Lymphocyte Count 2.78 X10^3/uL (0.83-4.51); Absolute Neutrophil Count 3.1 X10^3/uL (2.0-7.7); Basophil# 0.04 X10^3/uL; Basophil% 0.6 % (0-1); Eosinophil# 0.31 X10^3/uL; Eosinophils% 4.3 % (0-5); Hematocrit 27.9 % (37-47); Hemoglobin 8.2 g/dL (12.0-15.0); Lymphocyte # 2.78 X10^3/ul (0.83-4.51); Lymphocyte % 38.5 % (19-41); Mean Corp Hgb Conc 29.4 g/dL (32-36); Mean Corpuscular Hgb 27.2 pg (27.0-32.0); Mean Corpuscular Volume 92.7 fL (81-99); Mean Platelet Vol. 10.7 fl (6.2-12.0); Monocyte# 0.75 X10^3/uL; Monocyte% 10.4 % (0-10); NRBC Flagged by Analyzer 0 % (0-5); Neutrophil # 3.11 X10^3/uL (2.7-7.7); Neutrophil % 42.9 % (47-70); Platelet Count 290 K/mm3 (150-450); RBC Distribution Width CV 17.2 % (11.6-14.6); RBC Distribution Width SD 58.2 fl (35.1-43.9); Red Blood Count 3.01 M/mm3 (4.2-5.4); White Blood Count 7.2 K/mm3 (4.4-11.0)
[2023-12-27 09:36] LABS: ALB/GLOB Ratio 0.4 RATIO (0.9-2.4); AST(SGOT) 43 U/L (15-37); Alanine Aminotransfer ALT/SGPT 7 U/L (13-56); Albumin, Serum 2.4 g/dL (3.2-5.0); Alkaline Phosphatase 98 U/L (45-117); Anion Gap 5 (5-15); BUN 28 mg/dL (7-18); CPK Total, Creatine Kinase 26 U/L (26-192); Calcium,Total 9.6 mg/dL (8.5-10.1); Chloride 107 mmol/L (98-107); EST Glomerular Filtration Rate 39 mL/min (>60); Est Glom Filt Rate - Afr Amer 48 mL/min (>60); Globulin 5.5 g/dL (2.2-4.2); Glucose 275 mg/dL (74-106); Potassium 5.2 mmol/L (3.5-5.1); Protein, Total 7.9 g/dL (6.4-8.2); Sodium Level 136 mmol/L (136-145)
== END ==
LOC: OLS.ACH 05:00
PROVIDERS: PCP Internal Medicine; Visit Provider Internal Medicine
DX: A41.81 Sepsis due to Enterococcus (principal); N11.8 Other chronic tubulo-interstitial nephritis; R65.20 Severe sepsis without septic shock; D50.9 Iron deficiency anemia, unspecified
CPT/HCPCS: 36415; 80053; 82550; 85025

== ENCOUNTER → 2024-01-10 | Outpatient (REF) | payer MEDICARE, MEDICAID, SELFPAY ==
[2024-01-10 10:01] LABS: Absolute Lymphocyte Count 2.94 X10^3/uL (0.83-4.51); Absolute Neutrophil Count 2.8 X10^3/uL (2.0-7.7); Basophil# 0.02 X10^3/uL; Basophil% 0.3 % (0-1); Eosinophil# 0.22 X10^3/uL; Eosinophils% 3.3 % (0-5); Hematocrit 31.7 % (37-47); Hemoglobin 9.2 g/dL (12.0-15.0); Lymphocyte # 2.94 X10^3/ul (0.83-4.51); Lymphocyte % 43.8 % (19-41); Mean Corpuscular Hgb 27.4 pg (27.0-32.0); Mean Corpuscular Volume 94.3 fL (81-99); Mean Platelet Vol. 11.6 fl (6.2-12.0); Monocyte% 10.4 % (0-10); NRBC Flagged by Analyzer 0 % (0-5); Neutrophil # 2.81 X10^3/uL (2.7-7.7); Neutrophil % 41.8 % (47-70); Platelet Count 167 K/mm3 (150-450); RBC Distribution Width CV 18.1 % (11.6-14.6); RBC Distribution Width SD 61.6 fl (35.1-43.9); Red Blood Count 3.36 M/mm3 (4.2-5.4); White Blood Count 6.7 K/mm3 (4.4-11.0)
[2024-01-10 10:22] LABS: Anion Gap 5 (5-15); BUN 23 mg/dL (7-18); BUN/Creat Ratio 16.4 RATIO (10-20); CPK Total, Creatine Kinase 26 U/L (26-192); Calcium,Total 9.2 mg/dL (8.5-10.1); Chloride 108 mmol/L (98-107); EST Glomerular Filtration Rate 39 mL/min (>60); Est Glom Filt Rate - Afr Amer 48 mL/min (>60); Glucose 202 mg/dL (74-106); Potassium 5.6 mmol/L (3.5-5.1); Sodium Level 135 mmol/L (136-145)
== END ==
LOC: OLS.ACH 05:44
PROVIDERS: PCP Internal Medicine; Visit Provider Internal Medicine
DX: N11.8 Other chronic tubulo-interstitial nephritis (principal); D50.9 Iron deficiency anemia, unspecified
CPT/HCPCS: 36415; 80048; 82550; 85025

== ENCOUNTER → 2024-01-11 | Outpatient (REF) | payer MEDICARE, MEDICAID, SELFPAY ==
[2024-01-11 09:41] LABS: Potassium 5.7 mmol/L (3.5-5.1)
== END ==
LOC: OLS.ACH 06:45
PROVIDERS: PCP Internal Medicine; Visit Provider Internal Medicine
DX: E87.5 Hyperkalemia (principal)
CPT/HCPCS: 36415; 84132

== ENCOUNTER → 2024-01-12 | Outpatient (REF) | payer MEDICARE, MEDICAID, SELFPAY ==
[2024-01-12 07:51] LABS: Anion Gap 5 (5-15); BUN 30 mg/dL (7-18); BUN/Creat Ratio 19.6 RATIO (10-20); Calcium,Total 8.3 mg/dL (8.5-10.1); Chloride 108 mmol/L (98-107); Creatinine, Serum 1.53 mg/dL (0.55-1.02); EST Glomerular Filtration Rate 36 mL/min (>60); Est Glom Filt Rate - Afr Amer 43 mL/min (>60); Glucose 286 mg/dL (74-106); Potassium 4.7 mmol/L (3.5-5.1); Sodium Level 136 mmol/L (136-145)
== END ==
LOC: OLS.ACH 04:00
PROVIDERS: PCP Internal Medicine; Referring Provider Internal Medicine; Visit Provider Internal Medicine
DX: E78.5 Hyperlipidemia, unspecified (principal); N18.9 Chronic kidney disease, unspecified
CPT/HCPCS: 36415; 80048

== ENCOUNTER → 2024-01-14 | Outpatient (REF) | payer MEDICARE, MEDICAID, SELFPAY ==
[2024-01-14 08:53] LABS: Hematocrit 30.9 % (37-47); Hemoglobin 8.7 g/dL (12.0-15.0); Mean Corp Hgb Conc 28.2 g/dL (32-36); Mean Corpuscular Hgb 27.6 pg (27.0-32.0); Mean Corpuscular Volume 98.1 fL (81-99); Mean Platelet Vol. 12.3 fl (6.2-12.0); Platelet Count 164 K/mm3 (150-450); RBC Distribution Width CV 17.9 % (11.6-14.6); RBC Distribution Width SD 63.7 fl (35.1-43.9); Red Blood Count 3.15 M/mm3 (4.2-5.4)
[2024-01-14 09:08] LABS: Anion Gap 6 (5-15); BUN 30 mg/dL (7-18); BUN/Creat Ratio 19.6 RATIO (10-20); Calcium,Total 8.1 mg/dL (8.5-10.1); Chloride 109 mmol/L (98-107); Creatinine, Serum 1.53 mg/dL (0.55-1.02); EST Glomerular Filtration Rate 36 mL/min (>60); Est Glom Filt Rate - Afr Amer 43 mL/min (>60); Glucose 289 mg/dL (74-106); Potassium 4.8 mmol/L (3.5-5.1); Sodium Level 137 mmol/L (136-145)
== END ==
LOC: OLS.ACH 05:00
PROVIDERS: PCP Internal Medicine; Visit Provider Internal Medicine
DX: I12.9 Hypertensive chronic kidney disease with stage 1 through stage 4 chronic kidney disease, or unspecified chronic kidney disease (principal); N18.9 Chronic kidney disease, unspecified
CPT/HCPCS: 36415; 80048; 85027

== ENCOUNTER → 2024-01-17 | Outpatient (REF) | payer MEDICARE, MEDICAID, SELFPAY ==
[2024-01-17 10:46] LABS: Anion Gap 6 (5-15); BUN 34 mg/dL (7-18); BUN/Creat Ratio 25.2 RATIO (10-20); Calcium,Total 9.2 mg/dL (8.5-10.1); Chloride 108 mmol/L (98-107); Creatinine, Serum 1.35 mg/dL (0.55-1.02); EST Glomerular Filtration Rate 41 mL/min (>60); Est Glom Filt Rate - Afr Amer 50 mL/min (>60); Glucose 293 mg/dL (74-106); Potassium 5.1 mmol/L (3.5-5.1); Sodium Level 135 mmol/L (136-145)
== END ==
LOC: OLS.ACH 05:00
PROVIDERS: PCP Internal Medicine; Visit Provider Internal Medicine
DX: E11.22 Type 2 diabetes mellitus with diabetic chronic kidney disease (principal); N18.9 Chronic kidney disease, unspecified; E11.51 Type 2 diabetes mellitus with diabetic peripheral angiopathy without gangrene; E87.5 Hyperkalemia
CPT/HCPCS: 36415; 80048

== ENCOUNTER 2024-01-20 09:19 | Inpatient (IN) | payer MEDICARE, MEDICAID, SELFPAY ==
[2024-01-20] VITALS (13 sets, daily range): BP systolic 88–118; BP diastolic 52–74; PULSE 60–81; RESP 14–19; TEMP 35.7–37.1; O2SAT 92–99; BMI 33.0; BMI 32.0
--- NOTE | 2024-01-20 10:04 | EKG12_ITS ---
Test Reason : Blood Pressure : / mmHG Vent. Rate : 060 BPM Atrial Rate : 060 BPM P-R Int : 298 ms QRS Dur : 200 ms QT Int : 496 ms P-R-T Axes : -84 270 069 degrees QTc Int : 496 ms AV dual-paced rhythm with prolonged AV conduction Abnormal ECG Confirmed by Martin Khan ([id number]), video news editor CHRIS REYES ([id number]) on 01/21/2024 10:19:05 AM Referred By: Confirmed By:Martin Khan
--- NOTE | 2024-01-20 10:05 | EDS_ITS ---
HPI History of Present Illness Chief Complaint: General Illness Informant: patient Narrative Narrative: Patient sent from [facility] for evaluation. Reported she developed a fever. Patient states she has a cough due to allergies. No vomiting or diarrhea. Denies any urinary symptoms however history of urosepsis. She denies feeling symptoms of fevers or chills. History of CKD. Also reported on arrival that her potassium was 6.9 with outpatient labs. History of pacemaker placed in 2018. Reported blood pressure was low also at the facility. Prior similar symptoms: Yes PFSH [facility] Medical History Chronic UTI S/P extracorporeal shock wave therapy Bladder disease Failure to thrive in adult Glaucoma TBI (traumatic brain injury) Kidney stone Lives in assisted Insulin dependent diabetes mellitus Uses wheelchair Walker as ambulation aid Stroke/cerebrovascular accident Syncope Parkinson's disease Dietary restriction Heartburn History of edema History of echocardiogram Cardiology follow-up encounter Anxiety Non-smoker Kidney disease Atrial fibrillation Pacemaker Hypertension Seizures Obesity Type 2 diabetes mellitus Hypertriglyceridemia Chronic kidney disease (CKD) Paroxysmal atrial fibrillation Essential hypertension Dysuria Septic shock Junctional rhythm Tachy-maurizio syndrome Vaginal bleeding Breakthrough seizure HLD (hyperlipidemia) Hypertensive emergency without congestive heart failure Seizure Home Medications ?Medication ?Instructions ?Recorded ?Last Taken ?Type sitagliptin phosphate 50 mg tablet 100 mg PO DAILY DIABETES 11/19/21 01/20/24 History (Januvia) allopurinol 100 mg tablet 100 mg PO DAILY GOUT 12/10/22 01/20/24 History aspirin 81 mg tablet,delayed 81 mg PO DAILY HEART HEALTH 12/10/22 01/20/24 History release (Adult Low Dose Aspirin) alendronate 70 mg tablet 70 mg PO BONE HEALTH 06/15/23 01/15/24 History carbidopa 10 mg-levodopa 100 mg 1 tab PO TID PARKINSONS 06/15/23 01/20/24 History tablet citalopram 10 mg tablet 10 mg PO DAILY DEPRESSION 06/15/23 01/20/24 History estradiol 0.01% (0.1 mg/gram) 1 appful vaginal PRECIADO HORMONES 06/15/23 01/16/24 History vaginal cream insulin glargine 100 unit/mL (3 24 unit subcut QHS DIABETES 06/15/23 01/19/24 History mL) subcutaneous pen (Lantus Solostar U-100 Insulin) lacosamide 150 mg tablet 150 mg PO BID EPILEPSY 06/15/23 01/20/24 History clobazam 10 mg tablet 5 mg PO DAILY EPILEPSY 10/12/23 01/19/24 History ferrous sulfate 325 mg (65 mg 325 mg PO QODAY ANEMIA 10/12/23 01/20/24 History iron) tablet,delayed release hydralazine 10 mg tablet 10 mg PO TID BLOOD PRESSURE 10/12/23 01/20/24 History calcium carbonate (Calcium 500) 500 mg PO Q4H PRN GERD 12/14/23 Unknown History daptomycin 500 mg/50 mL in 0.9 % 500 mg IV DAILY 12/14/23 12/18/23 History sodium chloride intravenous piggyback insulin lispro 100 unit/mL See Protocol subcut BIDCM DIABETES 12/14/23 01/20/24 History subcutaneous pen pregabalin 150 mg capsule 150 mg PO BID EPILEPSY 12/14/23 01/20/24 History sennosides 8.6 mg-docusate sodium 1 tab-cap PO DAILY PRN CONSTIPATION 12/14/23 01/04/24 History 50 mg tablet (Senexon-S) amlodipine 5 mg tablet 5 mg PO QHS BLOOD PRESSURE 12/18/23 01/19/24 History heparin, porcine (PF) 100 unit/mL 250 unit IV BID IV ANTIBIOTIC 12/18/23 12/18/23 History intravenous syringe (Heparin Lock THERAPY Flush (Porcine) (PF)) mirtazapine 30 mg tablet 30 mg PO QHS DEPRESSION 12/18/23 01/19/24 History ondansetron HCl 8 mg tablet 8 mg PO Q8H PRN NAUSEA 12/18/23 Unknown History daptomycin 500 mg intravenous 500 mg IV Q24H 3 days #3 ea 12/22/23 Unknown Rx solution acetaminophen 500 mg tablet 1,000 mg PO Q6H PRN PAIN/FEVER 01/20/24 01/20/24 History ascorbic acid (vitamin C) 500 mg 500 mg PO DAILY SUPPLEMENT 01/20/24 01/20/24 History tablet cranberry 500 mg capsule 500 mg PO TID UTI PREVENTION 01/20/24 01/20/24 History insulin lispro 100 unit/mL 5 unit subcut DINNER DIABETES 01/20/24 01/19/24 History subcutaneous pen insulin lispro 100 unit/mL 7 unit subcut BID DIABETES 01/20/24 01/20/24 History subcutaneous pen metformin 500 mg tablet 500 mg PO DAILY DIABETES 01/20/24 01/20/24 History trimethoprim 100 mg tablet 100 mg PO QHS ANTIBIOTIC 01/20/24 01/19/24 History Allergy/AdvReac Type Severity Reaction Status Date / Time amoxicillin (From Augmentin) Allergy Rash Verified 01/20/24 09:25 clavulanic acid (From Allergy Rash Verified 01/20/24 09:25 Augmentin) escitalopram (From Lexapro) Allergy Rash Verified 01/20/24 09:25 shellfish derived Allergy Unknown Verified 01/20/24 09:25 hydroxychloroquine (From AdvReac Severe Unknown Verified 01/20/24 09:25 Plaquenil) house dust AdvReac NEEDS Verified 01/20/24 09:25 FOLLOW-UP perfume AdvReac Unknown Verified 01/20/24 09:25 pineapple AdvReac Rash Verified 01/20/24 09:25 quinine AdvReac Unknown Verified 01/20/24 09:25 strawberry AdvReac Rash Verified 01/20/24 09:25 Sulfa (Sulfonamide AdvReac Unknown Verified 01/20/24 09:25 Antibiotics) Family History Brother Heart disease Hx CABG Hypertension Diabetes Mother Hypertension Surgical History History of permanent cardiac pacemaker placement (11/15/17) History of breast surgery History of hysterectomy Social History household members: spouse Smoking Status: Never smoker alcohol intake: never substance use type: does not use caffeine: No what type of physical activity do you participate in: none seatbelt use: always do you feel safe at home: Yes ROS ROS ED Constitutional Constitutional ED: Denies chills, fever(s) or sweats Eyes Eyes: Denies change in vision ENT ENT ED: Denies dysphagia or sore throat Cardiovascular Cardiovascular: Denies chest pain, leg edema, palpitations or racing heartbeat Respiratory/Chest Respiratory/Chest: Reports cough; Denies dyspnea or dyspnea on exertion Gastrointestinal Gastrointestinal: Denies abdominal pain, diarrhea, nausea or vomiting Genitourinary Genitourinary ED: Denies dysuria, hematuria or urinary frequency Musculoskeletal Musculoskeletal: Denies back pain, extremity pain or neck pain Integumentary Denies rash or wounds Neurologic Neurologic: Reports weakness; Denies headache(s) or paresthesias EXAM Physical Exam Const Vital Signs: 01/20/24 09:19 01/20/24 09:23 01/20/24 09:25 Temperature 98.6 F 98.6 F Temperature Source Temporal Temporal Pulse Rate 62 60 Respiratory Rate 19 H 15 Respiratory Effort Normal Non-Labored Respiratory Pattern Normal Blood Pressure 88/54 L 88/54 L Blood Pressure Mean 65 65 Pulse Ox 93 94 Oxygen Delivery Method Room Air Room Air 01/20/24 09:31 01/20/24 10:15 01/20/24 10:23 Temperature 98.2 F Temperature Source Temporal Pulse Rate 60 60 Respiratory Rate 19 H 17 Respiratory Effort Respiratory Pattern Blood Pressure 91/57 L 97/52 L Blood Pressure Mean 68 67 Pulse Ox 93 94 Oxygen Delivery Method Room Air Room Air Room Air 01/20/24 11:00 01/20/24 11:23 Temperature 98.8 F Temperature Source Oral Pulse Rate 60 60 Respiratory Rate 17 16 Respiratory Effort Respiratory Pattern Normal Blood Pressure 94/66 Blood Pressure Mean 75 Pulse Ox 93 Oxygen Delivery Method Room Air Positive well nourished and well developed General Appearance ED: well developed and NAD HEENT Reports moist mucous membranes normocephalic and atraumatic Eyes EOMs intact bilaterally and conjunctivae normal General Eye ED: Yes normal appearance of both eyes Neck no lymphadenopathy and supple General: Negative for tenderness Chest Wall Chest: Negative for tenderness Resp normal respiratory effort and normal air movement Effort and Inspection: symmetric chest movement; Negative for respiratory distress Cardio regular rate, regular rhythm and no murmurs Peripheral Pulses: pulses 2+ throughout GI normal to inspection, nondistended, normoactive bowel sounds and non-tender Palpation: Negative for guarding or rebound tenderness present Back/Spine no CVA tenderness and no thoracic nor lumbar tenderness Extremity General Extremety ED: Negative for tenderness Neuro oriented x3 and no sensory deficits noted Sensorium / Orientation: awake and alert Skin no rashes or lesions noted and no wounds MDM MDM MDM Narrative Medical decision making narrative: Interventions / MDM: Differential diagnosis: Diagnosis considered but do not suspect: N/A My EKG interpretation: AV paced rhythm rate of 60, no ST changes, however there is large T waves not particularly peaked or broad. She has no chest pains. Comparison however to EKG December 18, 2023, there was no widening QRS or enlarged T waves. Imaging independently reviewed and interpreted by myself: N/A External documents reviewed: N/A Test considered but not ordered:N/A ED course: Patient afebrile on arrival reported fever blood pressure 80/54 on arrival. Urosepsis history. Sepsis labs were ordered, started with 1 L of normal saline. EKG has new widening QRS and large T waves. Reported history of hyperkalemia 6.9, in the labs however it was 6.0. She does have EKG changes comparison therefore calcium will be ordered for cardiac stabilization. Potassium returned at 5.9. With EKG changes we will treat aerosol treatments along with insulin. Her glucose was 307 in the lab. Normal anion gap. Lactic acid returned at 1.5 procalcitonin 0.41. Creatinine 1.77 slightly more elevated compared to 4 days ago with 1.3. Urine positive for infection. Cultures are pending. Rocephin IV. Blood pressure stable on reevaluation. I discussed with hospitalist Dr. Espinoza for admission to PCU. Re-evaluation: stable Disposition discussed with patient/family/significant other: Case discussed with consulting clinician: Hospitalist This note was generated with [employer] dictation software. It may contain incorrect words, spelling, and punctuation that were not noted in checking the note before signing. Lab Data Attestation: I reviewed the patient's lab results. Labs: Laboratory Results - last 24 hr 01/20/24 01/20/24 01/20/24 09:50 10:12 10:30 WBC 13.4 H RBC 3.82 L Hgb 10.6 L Hct 35.1 L MCV 91.9 MCH 27.7 MCHC 30.2 L RDW Std Deviation 61.1 H RDW Coeff of Ernesto 18.2 H Plt Count 247 MPV 11.1 Immature Gran % (Auto) 0.700 Neut % (Auto) 64.9 Lymph % (Auto) 24.9 Wagoner % (Auto) 8.4 Eos % (Auto) 0.7 Baso % (Auto) 0.4 Absolute Neuts (auto) 8.7 H Absolute Lymphs (auto) 3.33 Nucleated RBC % 0 PT 15.7 H INR 1.3 APTT 35.6 Sodium 133 L Potassium 5.9 H Chloride 106 Carbon Dioxide 20.0 L Anion Gap 7 BUN 38 H Creatinine 1.77 H Estim Creat Clear Calc 28.89 Est GFR (MDRD) Af Amer 36 L Est GFR (MDRD) Non-Af 30 L BUN/Creatinine Ratio 21.5 H Glucose 307 H Lactic Acid 1.5 Calcium 9.0 Total Bilirubin 0.40 AST 47 H ALT < 6 L Alkaline Phosphatase 89 Total Protein 8.5 H Albumin 2.7 L Globulin 5.8 H Albumin/Globulin Ratio 0.5 L Procalcitonin 0.41 H Urine Color Yellow Urine Clarity Sl. Cloudy Urine pH 7.0 Ur Specific [employer] 1.010 Urine Protein 500 H Urine Glucose (UA) 100 H Urine Ketones Negative Urine Occult Blood 25 H Urine Nitrite Positive H Urine Bilirubin Negative Urine Urobilinogen Normal Ur Leukocyte Esterase 500 H Urine RBC 0-5 SEEN Urine WBC 25-50 SEEN Ur Squamous Epith Cells 0-5 SEEN Urine Bacteria 1+ Urine Mucus 0 SEEN Radiography Diagnostic Testing: Clinical Impression(s) from Imaging Studies Chest X-Ray 01/20/24 11:00 IMPRESSION: Stable chest with no acute or active cardiopulmonary disease. Electronically Signed: Emmanuel Pina MD at 11:12 EDT , Discharge Plan Dx/Rx/DC Orders Clinical Impression: Acute UTI, CHETNA (acute kidney injury), Acute hyperkalemia, Hypotension Disposition Disposition: Acute Care Hospital [facility] Discharge Date/Time: 01/20/24 12:39
[2024-01-20 10:15] LABS: Absolute Lymphocyte Count 3.33 X10^3/uL (0.83-4.51); Absolute Neutrophil Count 8.7 X10^3/uL (2.0-7.7); Basophil# 0.06 X10^3/uL; Basophil% 0.4 % (0-1); Eosinophil# 0.09 X10^3/uL; Eosinophils% 0.7 % (0-5); Hematocrit 35.1 % (37-47); Hemoglobin 10.6 g/dL (12.0-15.0); Lymphocyte # 3.33 X10^3/ul (0.83-4.51); Lymphocyte % 24.9 % (19-41); Mean Corp Hgb Conc 30.2 g/dL (32-36); Mean Corpuscular Hgb 27.7 pg (27.0-32.0); Mean Corpuscular Volume 91.9 fL (81-99); Mean Platelet Vol. 11.1 fl (6.2-12.0); Monocyte# 1.13 X10^3/uL; Monocyte% 8.4 % (0-10); NRBC Flagged by Analyzer 0 % (0-5); Neutrophil % 64.9 % (47-70); Platelet Count 247 K/mm3 (150-450); RBC Distribution Width CV 18.2 % (11.6-14.6); RBC Distribution Width SD 61.1 fl (35.1-43.9); Red Blood Count 3.82 M/mm3 (4.2-5.4); White Blood Count 13.4 K/mm3 (4.4-11.0)
[2024-01-20] MEDS: 0.9% Normal Saline (1000mL) 1,000 ML 999 ML IV (10:21)
[2024-01-20 10:38] LABS: Mucous, Urine 0 SEEN /hpf (<or=2+)
[2024-01-20 10:44] LABS: ALB/GLOB Ratio 0.5 RATIO (0.9-2.4); AST(SGOT) 47 U/L (15-37); Alanine Aminotransfer ALT/SGPT < 6 U/L (13-56); Albumin, Serum 2.7 g/dL (3.2-5.0); Alkaline Phosphatase 89 U/L (45-117); Anion Gap 7 (5-15); BUN 38 mg/dL (7-18); BUN/Creat Ratio 21.5 RATIO (10-20); Chloride 106 mmol/L (98-107); Creatinine, Serum 1.77 mg/dL (0.55-1.02); EST Glomerular Filtration Rate 30 mL/min (>60); Est Glom Filt Rate - Afr Amer 36 mL/min (>60); Estimated Creatinine Clearance 28.89 ml/min; Globulin 5.8 g/dL (2.2-4.2); Glucose 307 mg/dL (74-106); International Normalized Ratio 1.3; Lactic Acid 1.5 mmol/L (0.4-1.9); Potassium 5.9 mmol/L (3.5-5.1); Protein, Total 8.5 g/dL (6.4-8.2); Prothrombin Time (Protime)PT. 15.7 SECONDS (11.7-14.9); Sodium Level 133 mmol/L (136-145)
[2024-01-20 10:45] LABS: Partial Thromboplast Time 35.6 Seconds (24.1-36.2)
[2024-01-20 10:45] LABS: Color, Urine Yellow (Yellow); Glucose, Dipstick 100 mg/dl (Normal); Ketone-Dipstick Negative (Negative); Leukocyte Esterase-Dipstick 500 /ul (Negative); Nitrite-Dipstick Positive (Negative); Occult Blood-Urine 25 /ul (Negative); Protein-Dipstick 500 mg/dl (Negative); Urine Bilirubin Dipstick Negative (Negative); Urine Clarity Sl. Cloudy (Clear); Urine Urobilinogen Normal (Normal)
[2024-01-20 10:46] LABS: Procalcitonin 0.41 ng/mL (0.00-0.09)
[2024-01-20 10:52] LABS: Bacteria 1+ /hpf (None Seen); Red Blood Cells-Urine 0-5 SEEN /hpf (0-5); Squamous Epithelial Cells - UA 0-5 SEEN /hpf (5-10); White Blood Cells 25-50 SEEN /hpf (0-5)
--- NOTE | 2024-01-20 11:00 | RAD_ITS ---
STUDY: X-RAY CHEST REASON FOR EXAM: Female, 73 years old. Cough. TECHNIQUE: Single frontal view of the chest. COMPARISON: December 20, 2023 FINDINGS: Low volume inspiration with basilar atelectasis and vascular crowding. Mild diffuse interstitial pattern. Findings unchanged from comparison study. Stable cardiomegaly with aortic tortuosity and dual-lead cardiac pacer. No abnormality of the visualized soft tissue structures of the upper abdomen. RAD/Chest 1 View (Portable) IMPRESSION: Stable chest with no acute or active cardiopulmonary disease. Electronically Signed: Emmanuel Pina MD at 11:12 EDT ,
[2024-01-20] MEDS: Ceftriaxone 1 GM/50 ML BAG IV (11:08)
[2024-01-20] MEDS: Insulin Lispro 10 UNIT in Syringe 0 ML 6 UNIT IV (11:22)
[2024-01-20] MEDS: Albuterol *CONC* 2.5mg/0.5mL VIAL.NEB. 10 MG INHALATION (11:23)
--- NOTE | 2024-01-20 11:23 | PCM.HP.STD ---
HPI - General General Date of Admission: 01/20/24 Date of Service: 01/20/24 Chief Complaint: Fever HPI Narrative HERMINIA CARDONA, is a 73 F with multiple medical comorbidities currently resident at an extended care facility who was brought to the with progressive generalized weakness and fever.Patient had apparently had lab work drawn the day prior potassium was noted to be 6.0. Decision was made to send patient to the ED upon receipt of the lab work. Patient was found to be in acute kidney injury with hyperkalemia. Urinalysis also obtained came back abnormal treatment initiated per protocol patient admitted to a monitored bed for subsequent manage [facility] Medical History Chronic UTI S/P extracorporeal shock wave therapy Bladder disease Failure to thrive in adult Glaucoma TBI (traumatic brain injury) Kidney stone Lives in senior care Insulin dependent diabetes mellitus Uses wheelchair Walker as ambulation aid Stroke/cerebrovascular accident Syncope Parkinson's disease Dietary restriction Heartburn History of edema History of echocardiogram Cardiology follow-up encounter Anxiety Non-smoker Kidney disease Atrial fibrillation Pacemaker Hypertension Seizures Obesity Type 2 diabetes mellitus Hypertriglyceridemia Chronic kidney disease (CKD) Paroxysmal atrial fibrillation Essential hypertension Dysuria Septic shock Junctional rhythm Tachy-maurizio syndrome Vaginal bleeding Breakthrough seizure HLD (hyperlipidemia) Hypertensive emergency without congestive heart failure Seizure Home Medications ?Medication ?Instructions ?Recorded ?Last Taken ?Type sitagliptin phosphate 50 mg tablet 100 mg PO DAILY DIABETES 11/19/21 01/20/24 History (Januvia) allopurinol 100 mg tablet 100 mg PO DAILY GOUT 12/10/22 01/20/24 History aspirin 81 mg tablet,delayed 81 mg PO DAILY HEART HEALTH 12/10/22 01/20/24 History release (Adult Low Dose Aspirin) alendronate 70 mg tablet 70 mg PO BONE HEALTH 06/15/23 01/15/24 History carbidopa 10 mg-levodopa 100 mg 1 tab PO TID PARKINSONS 06/15/23 01/20/24 History tablet citalopram 10 mg tablet 10 mg PO DAILY DEPRESSION 06/15/23 01/20/24 History estradiol 0.01% (0.1 mg/gram) 1 appful vaginal PRECIADO HORMONES 06/15/23 01/16/24 History vaginal cream insulin glargine 100 unit/mL (3 24 unit subcut QHS DIABETES 06/15/23 01/19/24 History mL) subcutaneous pen (Lantus Solostar U-100 Insulin) lacosamide 150 mg tablet 150 mg PO BID EPILEPSY 06/15/23 01/20/24 History clobazam 10 mg tablet 5 mg PO DAILY EPILEPSY 10/12/23 01/19/24 History ferrous sulfate 325 mg (65 mg 325 mg PO QODAY ANEMIA 10/12/23 01/20/24 History iron) tablet,delayed release hydralazine 10 mg tablet 10 mg PO TID BLOOD PRESSURE 10/12/23 01/20/24 History calcium carbonate (Calcium 500) 500 mg PO Q4H PRN GERD 12/14/23 Unknown History daptomycin 500 mg/50 mL in 0.9 % 500 mg IV DAILY 12/14/23 12/18/23 History sodium chloride intravenous piggyback insulin lispro 100 unit/mL See Protocol subcut BIDCM DIABETES 12/14/23 01/20/24 History subcutaneous pen pregabalin 150 mg capsule 150 mg PO BID EPILEPSY 12/14/23 01/20/24 History sennosides 8.6 mg-docusate sodium 1 tab-cap PO DAILY PRN CONSTIPATION 12/14/23 01/04/24 History 50 mg tablet (Senexon-S) amlodipine 5 mg tablet 5 mg PO QHS BLOOD PRESSURE 12/18/23 01/19/24 History heparin, porcine (PF) 100 unit/mL 250 unit IV BID IV ANTIBIOTIC 12/18/23 12/18/23 History intravenous syringe (Heparin Lock THERAPY Flush (Porcine) (PF)) mirtazapine 30 mg tablet 30 mg PO QHS DEPRESSION 12/18/23 01/19/24 History ondansetron HCl 8 mg tablet 8 mg PO Q8H PRN NAUSEA 12/18/23 Unknown History daptomycin 500 mg intravenous 500 mg IV Q24H 3 days #3 ea 12/22/23 Unknown Rx solution acetaminophen 500 mg tablet 1,000 mg PO Q6H PRN PAIN/FEVER 01/20/24 01/20/24 History ascorbic acid (vitamin C) 500 mg 500 mg PO DAILY SUPPLEMENT 01/20/24 01/20/24 History tablet cranberry 500 mg capsule 500 mg PO TID UTI PREVENTION 01/20/24 01/20/24 History insulin lispro 100 unit/mL 5 unit subcut DINNER DIABETES 01/20/24 01/19/24 History subcutaneous pen insulin lispro 100 unit/mL 7 unit subcut BID DIABETES 01/20/24 01/20/24 History subcutaneous pen metformin 500 mg tablet 500 mg PO DAILY DIABETES 01/20/24 01/20/24 History trimethoprim 100 mg tablet 100 mg PO QHS ANTIBIOTIC 01/20/24 01/19/24 History Allergy/AdvReac Type Severity Reaction Status Date / Time amoxicillin (From Augmentin) Allergy Rash Verified 01/20/24 09:25 clavulanic acid (From Allergy Rash Verified 01/20/24 09:25 Augmentin) escitalopram (From Lexapro) Allergy Rash Verified 01/20/24 09:25 shellfish derived Allergy Unknown Verified 01/20/24 09:25 hydroxychloroquine (From AdvReac Severe Unknown Verified 01/20/24 09:25 Plaquenil) house dust AdvReac NEEDS Verified 01/20/24 09:25 FOLLOW-UP perfume AdvReac Unknown Verified 01/20/24 09:25 pineapple AdvReac Rash Verified 01/20/24 09:25 quinine AdvReac Unknown Verified 01/20/24 09:25 strawberry AdvReac Rash Verified 01/20/24 09:25 Sulfa (Sulfonamide AdvReac Unknown Verified 01/20/24 09:25 Antibiotics) Family History Brother Heart disease Hx CABG Hypertension Diabetes Mother Hypertension Surgical History History of permanent cardiac pacemaker placement (11/15/17) History of breast surgery History of hysterectomy Social History household members: spouse Smoking Status: Never smoker alcohol intake: never substance use type: does not use caffeine: No what type of physical activity do you participate in: none seatbelt use: always do you feel safe at home: Yes ROS ROS Narrative GENERAL: denies weight loss, anorexia HEENT: denies headache, sinus congestion, or drainage, dysphagia RESPIRATORY: denies cough, sputum production, shortness of breath, CARDIAC: denies chest pain, palpitations, orthopnea, PND GASTROINTESTINAL: denies abdominal pain, nausea, vomiting, melena, GENITOURINARY: denies dysuria, urgency, frequency, heamaturia EXTREMITY: denies swelling MUSCULOSKELETAL: denies current joint pain or tenderness NEUROLOGIC: denies focal numbness, weakness, tingling HEMATOLOGIC: denies easy bruising and/or hemorrhage INTEGUMENT: denies rashes PSYCHIATRIC: denies suicidal or homicidal ideation Vital Signs Vital Signs Vital Signs: 01/20/24 09:19 01/20/24 09:23 01/20/24 09:25 Temperature 98.6 F 98.6 F Temperature Source Temporal Temporal Pulse Rate 62 60 Respiratory Rate 19 H 15 Respiratory Effort Normal Non-Labored Respiratory Pattern Normal Blood Pressure 88/54 L 88/54 L Blood Pressure Mean 65 65 Pulse Ox 93 94 Oxygen Delivery Method Room Air Room Air 01/20/24 09:31 01/20/24 10:15 01/20/24 10:23 Temperature 98.2 F Temperature Source Temporal Pulse Rate 60 60 Respiratory Rate 19 H 17 Respiratory Effort Respiratory Pattern Blood Pressure 91/57 L 97/52 L Blood Pressure Mean 68 67 Pulse Ox 93 94 Oxygen Delivery Method Room Air Room Air Room Air 01/20/24 11:00 Temperature 98.8 F Temperature Source Oral Pulse Rate 60 Respiratory Rate 17 Respiratory Effort Respiratory Pattern Blood Pressure 94/66 Blood Pressure Mean 75 Pulse Ox 93 Oxygen Delivery Method Room Air Weight Weight: 81.8 kg Body Mass Index (BMI) 33.0 Physical Exam Narrative GENERAL: cooperative HEENT: Atraumatic; normocephalic EYES; Anicteric, Normal Conjunctiva NECK; supple, normal thyroid, RESPIRATORY: Diminished to auscultation CARDIOVASCULAR: Regular S1 S2, GI: soft, normoactive bowel sounds, : No Renal angle tenderness; EXTREMITIES: edema, no clubbing, MUSCULOSKELETAL: no muscle wasting NEURO: Awake; no lateralizing signs. SKIN: No Rash PSYCH; Flat affect Results Lab / Micro Data 01/20/24 09:50 01/20/24 09:50 Labs: Laboratory Results - last 24 hr 01/20/24 09:50: WBC 13.4 H, RBC 3.82 L, Hgb 10.6 L, Hct 35.1 L, MCV 91.9, MCH 27.7, MCHC 30.2 L, RDW Std Deviation 61.1 H, RDW Coeff of Ernesto 18.2 H, Plt Count 247, MPV 11.1, Immature Gran % (Auto) 0.700, Neut % (Auto) 64.9, Lymph % (Auto) 24.9, Gregory % (Auto) 8.4, Eos % (Auto) 0.7, Baso % (Auto) 0.4, Absolute Neuts (auto) 8.7 H, Absolute Lymphs (auto) 3.33, Nucleated RBC % 0, PT 15.7 H, INR 1.3, APTT 35.6, Sodium 133 L, Potassium 5.9 H, Chloride 106, Carbon Dioxide 20.0 L, Anion Gap 7, BUN 38 H, Creatinine 1.77 H, Estim Creat Clear Calc 28.89, Est GFR (MDRD) Af Amer 36 L, Est GFR (MDRD) Non-Af 30 L, BUN/Creatinine Ratio 21.5 H, Glucose 307 H, Lactic Acid 1.5, Calcium 9.0, Total Bilirubin 0.40, AST 47 H, ALT < 6 L, Alkaline Phosphatase 89, Total Protein 8.5 H, Albumin 2.7 L, Globulin 5.8 H, Albumin/Globulin Ratio 0.5 L 01/20/24 10:12: Procalcitonin 0.41 H 01/20/24 10:30: Urine Color Yellow, Urine Clarity Sl. Cloudy, Urine pH 7.0, Ur Specific [place] 1.010, Urine Protein 500 H, Urine Glucose (UA) 100 H, Urine Ketones Negative, Urine Occult Blood 25 H, Urine Nitrite Positive H, Urine Bilirubin Negative, Urine Urobilinogen Normal, Ur Leukocyte Esterase 500 H, Urine RBC 0-5 SEEN, Urine WBC 25-50 SEEN, Ur Squamous Epith Cells 0-5 SEEN, Urine Bacteria 1+, Urine Mucus 0 SEEN Imaging Radiology Impression Chest X-Ray 01/20/24 11:00 IMPRESSION: Stable chest with no acute or active cardiopulmonary disease. Electronically Signed: Emmanuel Pina MD at 11:12 EDT , Assessment & Plan Assessment/Plan (1) CHETNA (acute kidney injury): (2) Acute hyperkalemia: (3) Acute UTI: PLAN: Plan Patient is a 73-year-old lady with history of recurrent admissions for acute cystitis admitted with progressive generalized weakness fever and abnormal labs 1. Acute cystitis ? Patient admitted to monitored bed has history of ESBL. Patient subsequently started on meropenem cultures sent 2. Acute kidney injury ? Superimposed on chronic kidney disease stage III baseline creatinine 1.2 creatinine on admission was 1.77 patient has been started on IV fluid with subsequent monitoring of electrolytes ordered. 3. Hyperkalemia ? Secondary to impaired kidney function treatment initiated per protocol. Patient admitted to a monitored bed. Response to therapy being monitored with repeat BMP. Patient is on trimethoprim discontinued given the hyperkalemia 4.? Anemia - Secondary to chronic disorder monitoring H&H and transfuse if patient becomes symptomatic or hemoglobin falls below? 7 5.? Benign essential hypertension - Blood pressure controlled, home medications continued with dose adjustment as needed 6.? Diabetes mellitus type II -patient's oral hypoglycemics held. Placed on long acting insulin, Accu-Cheks a.c. and at bedtime and covered with sliding scale insulin 7.? Seizure disorder ? Did continue patient antiseizure medications 8.? Paroxysmal A. fib ?Rate controlled.? Patient not on systemic anticoagulation 11.? Tachybradycardia syndrome ? Status post pacemaker placement 11.? DVT prophylaxis SC heparin Time spent in the patient's overall evaluation,decision-making process, review of diagnostic data, adjustment of management, discussion with other providers, nursing nursing and ancillary staff involved in patient's care documentation, 75 Minutes Charges/Coding Visit Charges Inpatient E&M: 83543 Init Hosp L3
[2024-01-20] MEDS: Sodium Bicarbonate 150 MEQ in Dextrose 5%-Water (1000mL Bag) 1,000 ML 250 MEQ IV (11:24)
[2024-01-20] MEDS: Calcium Gluconate IV 3 GM in 0.9% Normal Saline (100mL Bag) 100 ML IV (11:38)
[2024-01-20] MEDS: 0.9% Normal Saline (1000mL) 1,000 ML 150 ML IV ×2 (13:05→22:35)
[2024-01-20] MEDS: Meropenem 1 GM in 0.9% Normal Saline (100mL MB+) 100 ML IV ×2 (13:35→22:10)
[2024-01-20] MEDS: 0.9% Saline Lock 10 ML Syringe IV (16:41)
[2024-01-20] MEDS: Carbidopa/Levodopa 10/100 Tablet PO (16:42)
[2024-01-20] MEDS: Insulin Lispro 100 UNIT/ML INSULN.PEN SC ×3 (16:47→22:33)
[2024-01-20 17:00] LABS: Bedside Glucose 240 mg/dL (74-106)
[2024-01-20] MEDS: amLODIPine 5 MG Tablet PO (22:12)
[2024-01-20] MEDS: Mirtazapine 30 MG Tablet PO (22:12)
[2024-01-20] MEDS: Heparin Injection (Vial) 5,000 UNIT/ML VIAL 5000 UNIT SC (22:13)
[2024-01-20] MEDS: Pregabalin 75 MG Capsule 150 MG PO (22:16)
[2024-01-20] MEDS: Lacosamide 50 MG Tablet 150 MG PO (22:24)
[2024-01-20] MEDS: Insulin Glargine-YFGN 100 UNIT/ML Pen 24 UNIT SC (22:33)
[2024-01-20 22:55] LABS: Bedside Glucose 164 mg/dL (74-106)
[2024-01-21] VITALS (7 sets, daily range): BP systolic 110–165; BP diastolic 57–71; PULSE 60–68; RESP 16–18; TEMP 35.6–37.8; O2SAT 88–96; BMI 33.5
[2024-01-21] MEDS: 0.9% Normal Saline (1000mL) 1,000 ML 150 ML IV (05:12)
[2024-01-21] MEDS: Carbidopa/Levodopa 10/100 Tablet PO ×3 (06:05→16:46)
[2024-01-21 07:34] LABS: Absolute Lymphocyte Count 1.17 X10^3/uL (0.83-4.51); Absolute Neutrophil Count 3.9 X10^3/uL (2.0-7.7); Basophil# 0.03 X10^3/uL; Basophil% 0.5 % (0-1); Eosinophil# 0.24 X10^3/uL; Hematocrit 29.5 % (37-47); Hemoglobin 8.5 g/dL (12.0-15.0); Lymphocyte # 1.17 X10^3/ul (0.83-4.51); Lymphocyte % 19.3 % (19-41); Mean Corp Hgb Conc 28.8 g/dL (32-36); Mean Corpuscular Hgb 27.5 pg (27.0-32.0); Mean Corpuscular Volume 95.5 fL (81-99); Mean Platelet Vol. 10.8 fl (6.2-12.0); Monocyte% 11.6 % (0-10); NRBC Flagged by Analyzer 0 % (0-5); Neutrophil # 3.87 X10^3/uL (2.7-7.7); Neutrophil % 63.8 % (47-70); Platelet Count 166 K/mm3 (150-450); RBC Distribution Width CV 18.2 % (11.6-14.6); RBC Distribution Width SD 63.7 fl (35.1-43.9); Red Blood Count 3.09 M/mm3 (4.2-5.4); White Blood Count 6.1 K/mm3 (4.4-11.0)
[2024-01-21 08:02] LABS: Anion Gap 3 (5-15); BUN 34 mg/dL (7-18); BUN/Creat Ratio 21.8 RATIO (10-20); Calcium,Total 8.5 mg/dL (8.5-10.1); Chloride 111 mmol/L (98-107); Creatinine, Serum 1.56 mg/dL (0.55-1.02); EST Glomerular Filtration Rate 35 mL/min (>60); Est Glom Filt Rate - Afr Amer 42 mL/min (>60); Estimated Creatinine Clearance 33.03 ml/min; Glucose 182 mg/dL (74-106); Magnesium 1.9 mg/dL (1.6-2.6); Potassium 4.9 mmol/L (3.5-5.1); Sodium Level 138 mmol/L (136-145)
[2024-01-21 08:07] LABS: Phosphorus 4.4 mg/dL (2.5-4.9)
--- NOTE | 2024-01-21 08:55 | PN.HOSP_ITS ---
Reason for Visit Reason for Visit: Diagnoses Hyperkalemia (01/20/24) Acute kidney failure, unspecified (01/20/24) Urinary tract infection, site not specified (01/20/24) Objective Data Objective Data Vital Signs: Vital Signs Temp Pulse Resp BP Pulse Ox O2 Del Method O2 Flow Rate 96.0 F L 60 18 110/57 L 96 Nasal Cannula 2 01/21/24 03:00 01/21/24 03:00 01/21/24 03:00 01/21/24 03:00 01/21/24 03:00 01/21/24 03:00 01/21/24 03:00 Oxygen Flow Rate (L/min) 2 Oxygen Delivery Method Nasal Cannula Weight: 182 lb 15.739 oz Body Mass Index (BMI) 33.5 Intake & Output: Intake and Output for Last 24 Hours 01/19/24 01/20/24 01/21/24 23:59 23:59 23:59 Intake Total 3750 / 3750 1112.5 / 1112.5 Output Total 950 / 950 600 / 600 Balance 2800 / 2800 512.5 / 512.5 Lab / Micro Data 01/21/24 07:10 01/21/24 07:10 Labs: Laboratory Results - last 24 hr 01/20/24 09:50: WBC 13.4 H, RBC 3.82 L, Hgb 10.6 L, Hct 35.1 L, MCV 91.9, MCH 27.7, MCHC 30.2 L, RDW Std Deviation 61.1 H, RDW Coeff of Ernesto 18.2 H, Plt Count 247, MPV 11.1, Immature Gran % (Auto) 0.700, Neut % (Auto) 64.9, Lymph % (Auto) 24.9, Pocahontas % (Auto) 8.4, Eos % (Auto) 0.7, Baso % (Auto) 0.4, Absolute Neuts (auto) 8.7 H, Absolute Lymphs (auto) 3.33, Nucleated RBC % 0, PT 15.7 H, INR 1.3, APTT 35.6, Sodium 133 L, Potassium 5.9 H, Chloride 106, Carbon Dioxide 20.0 L, Anion Gap 7, BUN 38 H, Creatinine 1.77 H, Estim Creat Clear Calc 28.89, Est GFR (MDRD) Af Amer 36 L, Est GFR (MDRD) Non-Af 30 L, BUN/Creatinine Ratio 21.5 H , Glucose 307 H, Lactic Acid 1.5, Calcium 9.0, Total Bilirubin 0.40, AST 47 H, A LT < 6 L, Alkaline Phosphatase 89, Total Protein 8.5 H, Albumin 2.7 L, Globulin 5.8 H, Albumin/Globulin Ratio 0.5 L 01/20/24 10:12: Procalcitonin 0.41 H 01/20/24 10:30: Urine Color Yellow, Urine Clarity Sl. Cloudy, Urine pH 7.0, Ur Specific Holstein 1.010, Urine Protein 500 H, Urine Glucose (UA) 100 H, Urine Ketones Negative, Urine Occult Blood 25 H, Urine Nitrite Positive H, Urine Bilirubin Negative, Urine Urobilinogen Normal, Ur Leukocyte Esterase 500 H, Urine RBC 0-5 SEEN, Urine WBC 25-50 SEEN, Ur Squamous Epith Cells 0-5 SEEN, Urine Bacteria 1+, Urine Mucus 0 SEEN 01/20/24 16:36: POC Glucose 240 H 01/20/24 22:31: POC Glucose 164 H 01/21/24 07:10: WBC 6.1, RBC 3.09 L, Hgb 8.5 L, Hct 29.5 L, MCV 95.5, MCH 27.5, MCHC 28.8 L, RDW Std Deviation 63.7 H, RDW Coeff of Ernesto 18.2 H, Plt Count 166, MPV 10.8, Immature Gran % (Auto) 0.800, Neut % (Auto) 63.8, Lymph % (Auto) 19.3, Pocahontas % (Auto) 11.6 H, Eos % (Auto) 4.0, Baso % (Auto) 0.5, Absolute Neuts (auto) 3.9, Absolute Lymphs (auto) 1.17, Nucleated RBC % 0, Sodium 138, Potassium 4.9, Chloride 111 H, Carbon Dioxide 24.0, Anion Gap 3 L, BUN 34 H, Creatinine 1.56 H, Estim Creat Clear Calc 33.03, Est GFR (MDRD) Af Amer 42 L, Est GFR (MDRD) Non-Af 35 L, BUN/Creatinine Ratio 21.8 H, Glucose 182 H, Calcium 8.5, Phosphorus 4.4, Magnesium 1.9 Micro: Microbiology 01/20/24 10:24 Mucosa - Nose SARS-CoV-2, Influenza & RSV (PCR) - Final Radiography Diagnostic Testing: Radiology Impression Chest X-Ray 01/20/24 11:00 IMPRESSION: Stable chest with no acute or active cardiopulmonary disease. Electronically Signed: Emmanuel Pina MD at 11:12 EDT Reading Location ID and State: [address] [place] [address] , Service support , Physical Exam Narrative Seen and examined. 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 In longterm, she did not had Dickson catheter but has chronic urinary incontinence. Denies burning micturition. Physical exam General: Alert, Oriented x3, Cooperative HEENT: Atraumatic, PERRLA, EOMI, Normocephalic. Mild facial puffiness mostly over periorbital region Oral: No Gingival or Mucosal Lesions/ Ulcerations Neck: Supple, No JVD, Negative Carotid Bruits Chest wall/Lungs: Air entry diminished in bilateral lung bases. No crepitation/rhonchi Cardiovascular: Regular rate, Regular Rhythm, Normal S1, Normal S2, No M/G/R Abdomen: Bowel Sounds Present, Soft, Non Tender, Non-Distended : Dickson catheter. No dysuria. No renal angle tenderness. No suprapubic tenderness. Extremities: Mild pedal edema, Capillary Refill Less than 3 Seconds Skin: No rashes, No breakdown Musculoskeletal: No Tenderness to Palpation of Joints or Extremities Neurological: Cranial nerves II-XII grossly intact, DTR 2+/4. No acute focal neurological deficit. Psych/Mental Status: Normal Affect, Appropriate. Assessment & Plan Assessment/Plan (1) CHETNA (acute kidney injury): (2) Acute hyperkalemia: (3) Acute UTI: PLAN: Plan Patient is a 73-year-old lady with history of recurrent admissions for acute cystitis admitted with progressive generalized weakness fever and abnormal labs, hyperkalemia K6.9 on outpatient labs. 1. Low-grade fever with abnormal UA: UA shows LE 500 and nitrite positive. 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 Patient started on meropenem and urine cultures were ordered. Urine culture shows presumptive Sandy. Subsequently meropenem discontinued. Discussed with the ID and okay with monitor off antibiotic. Had just one-time low-grade temperature 100.1 ?F. Leukocytosis resolved. ? 2. Acute kidney injury on superimposed CKD stage IIIb her baseline creatinine runs around 1.25, estimated creatinine clearance about 40 mill per minute. Admitting BUNs/creatinine 38/1.77. BUNs/creatinine high 34/1.56. 3. Hyperkalemia ? Secondary to impaired kidney function treatment initiated per protocol. Patient admitted to a monitored bed. Response to therapy being monitored with repeat BMP. Patient is on trimethoprim discontinued given the hyperkalemia. Hyperkalemia resolved 4.? Anemia - Secondary to chronic disorder monitoring H&H and transfuse if patient becomes symptomatic or hemoglobin falls below? 7. H&H decreased from 10.6-8.5. 5.? Benign essential hypertension - Blood pressure controlled, home medications continued with dose adjustment as needed 6.? Diabetes mellitus type II -patient's oral hypoglycemics held. Placed on long acting insulin, Accu-Cheks a.c. and at bedtime and covered with sliding scale insulin 7.? Seizure disorder ? Did continue patient antiseizure medications 8.? Paroxysmal A. fib ?Rate controlled.? Patient not on systemic anticoagulation 11.? Tachybradycardia syndrome ? Status post pacemaker placement 11.? DVT prophylaxis SC heparin Charges/Coding Visit Charges Inpatient E&M: 37251 Subs Hosp L2
--- NOTE | 2024-01-21 09:08 | CASEMGMT ---
Discharge Planning Updates sent to [facility] via [facility]. Lainey Esquivel DC Planning Asst.
[2024-01-21] MEDS: Insulin Lispro 100 UNIT/ML INSULN.PEN 7 UNIT SC ×2 (09:14→12:55)
[2024-01-21 09:25] LABS: Bedside Glucose 177 mg/dL (74-106)
--- NOTE | 2024-01-21 09:39 | CASEMGMT ---
Patient is from [facility] ([facility] roasterman. SW confirmed with patient that the plan is to return to [facility] at discharge. Patient will not need a pre-cert to return. Plan: d/c back to [facility] under intermediate level of care. Physicians will transport patient. Aleksandra CONROY
[2024-01-21] MEDS: cloBAZam 10 MG TABLET 5 MG PO (09:52)
[2024-01-21] MEDS: Pregabalin 75 MG Capsule 150 MG PO ×2 (09:53→21:46)
[2024-01-21] MEDS: Allopurinol 100 MG Tablet PO (09:53)
[2024-01-21] MEDS: Aspirin E.C. 81 MG Tablet PO (09:53)
[2024-01-21] MEDS: Citalopram 10 MG Tablet PO (09:53)
[2024-01-21] MEDS: Lacosamide 50 MG Tablet 150 MG PO ×2 (09:53→21:48)
[2024-01-21] MEDS: Meropenem 1 GM in 0.9% Normal Saline (100mL MB+) 100 ML IV (09:55)
[2024-01-21] MEDS: Heparin Injection (Vial) 5,000 UNIT/ML VIAL 5000 UNIT SC ×2 (09:58→21:46)
[2024-01-21 13:20] LABS: Bedside Glucose 154 mg/dL (74-106)
--- NOTE | 2024-01-21 15:22 | CHAPLAIN ---
Type of Pastoral Visit _x__ Initial Visit ___ Follow-up Visit ___ On-call Visit ___ General Patient Visit ___ Spiritual Assessment ___ Family Conference ___ Bereavement ___ Rapid Response ___ Code Blue ___ Other (describe below) Pastoral Care Referral From _x__ Patient ___ Family ___ Nurse ___ Physician ___ Workers Compensation Claims Examiner ___ [employer] ___ Other (describe below) Sacrament/Intervention _x__ Active listening ___ Anointing ___ Yazdanism ___ Bereavement ___ Communion ___ Maddison exploration ___ ___ Life review _x__ Prayer ___ Reconciliation ___ Sacrament of Sick _x__ Supportive presence ___ Wedding ___ Other (describe below) Pastoral Comments patient is finishing her lunch meal and answers questions given to her; spouse is with her and he gives a few more details of explanation on patient's status and health; spouse asks that prayers be spoken; 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
[2024-01-21] MEDS: Acetaminophen 325 MG Tablet 650 MG PO (15:50)
[2024-01-21] MEDS: Insulin Lispro 100 UNIT/ML INSULN.PEN SC ×2 (17:03→17:04)
[2024-01-21 17:23] LABS: Bedside Glucose 179 mg/dL (74-106)
[2024-01-21] MEDS: Menthol/Lanolin/Calamine/Znox 113 GM Tube 1 APPLIC TOPICAL (21:38)
[2024-01-21] MEDS: amLODIPine 5 MG Tablet PO (21:47)
[2024-01-21] MEDS: Senna/Docusate Sodium 1 Tablet 2 TABLET PO (21:48)
[2024-01-21] MEDS: Mirtazapine 30 MG Tablet PO (21:48)
[2024-01-21] MEDS: BENZOCAINE/MENTHOL 1 LOZENGE MUCOUS MEM (21:48)
[2024-01-21] MEDS: Insulin Glargine-YFGN 100 UNIT/ML Pen 24 UNIT SC (21:51)
[2024-01-21] MEDS: 0.9% Saline Lock 10 ML Syringe IV (21:56)
[2024-01-21 22:19] LABS: Bedside Glucose 113 mg/dL (74-106)
[2024-01-22] VITALS (10 sets, daily range): BP systolic 106–173; BP diastolic 61–85; PULSE 60–64; RESP 16–18; TEMP 36.9–38.3; O2SAT 92–97; BMI 33.0
[2024-01-22] MEDS: BENZOCAINE/MENTHOL 1 LOZENGE MUCOUS MEM ×2 (04:10→22:58)
[2024-01-22] MEDS: hydrALAZINE 20 MG/ML Vial 10 MG IV ×2 (04:32→05:27)
[2024-01-22] MEDS: Carbidopa/Levodopa 10/100 Tablet PO ×3 (06:09→16:32)
[2024-01-22 08:14] LABS: Bedside Glucose 210 mg/dL (74-106)
[2024-01-22] MEDS: Insulin Lispro 100 UNIT/ML INSULN.PEN 7 UNIT SC ×2 (09:32→12:07)
[2024-01-22] MEDS: Insulin Lispro 100 UNIT/ML INSULN.PEN SC ×4 (09:32→22:37)
[2024-01-22] MEDS: Citalopram 10 MG Tablet PO (09:32)
[2024-01-22] MEDS: Aspirin E.C. 81 MG Tablet PO (09:33)
[2024-01-22] MEDS: Menthol/Lanolin/Calamine/Znox 113 GM Tube 1 APPLIC TOPICAL ×3 (09:33→22:32)
[2024-01-22] MEDS: Allopurinol 100 MG Tablet PO (09:33)
[2024-01-22] MEDS: Ferrous Sulfate 325 MG Tablet PO (09:33)
[2024-01-22] MEDS: Heparin Injection (Vial) 5,000 UNIT/ML VIAL 5000 UNIT SC ×2 (09:33→22:33)
[2024-01-22] MEDS: Senna/Docusate Sodium 1 Tablet 2 TABLET PO ×2 (09:34→22:34)
[2024-01-22] MEDS: Lacosamide 50 MG Tablet 150 MG PO ×2 (09:39→22:34)
[2024-01-22] MEDS: cloBAZam 10 MG TABLET 5 MG PO (09:40)
[2024-01-22] MEDS: Pregabalin 75 MG Capsule 150 MG PO ×2 (09:44→22:33)
--- NOTE | 2024-01-22 11:10 | CT_ITS ---
STUDY: CT ABDOMEN AND PELVIS WITHOUT CONTRAST REASON FOR EXAM: Female, 73 years old. Flank pain RADIATION DOSAGE (If Supplied By Facility): CTDIvol = ( 15.29 ) mGy, DLP = ( 790.66 ) mGycm TECHNIQUE: Transaxial images were obtained from the dome of the diaphragm to the symphysis pubis without oral contrast, and without intravenous contrast. Sagittal and coronal images were reconstructed. Individualized dose optimization techniques were used for this CT. COMPARISON: None. FINDINGS: There are chronic interstitial fibrotic changes of the lung bases. Pacer leads seen along the base of a mildly enlarged heart Normal liver. Normal gallbladder and extrahepatic biliary system. Normal spleen. Normal pancreas. Normal bilateral adrenal glands. No obstructive uropathy or suspicious solid renal lesion, there are simple bilateral renal cysts and small bilateral nonobstructing stones. Normal visualized stomach. Normal small intestine. Retained stool throughout the colon. There are surgical clips in the region of the appendix consistent with a prior appendectomy. There is diffuse atherosclerotic calcification of the abdominal aorta, without a demonstrated aneurysm. Normal inferior vena cava. Normal retroperitoneum. Bladder is collapsed around a Dickson catheter Normal abdominal wall. There are degenerative changes of the visualized lumbar spine, and pelvis. CT/Abdomen/Pelvis without Cont IMPRESSION: Simple bilateral renal cysts, nonobstructing renal stones, no specific follow-up needed No free intraperitoneal fluid, air, or suspicious adenopathy Retained stool throughout the colon Diffuse atherosclerosis Degenerative bony changes Electronically Signed: Miah Hitchcock MD at 12:21 EDT ,
[2024-01-22 11:49] LABS: Bedside Glucose 161 mg/dL (74-106)
--- NOTE | 2024-01-22 14:24 | PN.HOSP_ITS ---
Reason for Visit Reason for Visit: Diagnoses Hyperkalemia (01/20/24) Acute kidney failure, unspecified (01/20/24) Urinary tract infection, site not specified (01/20/24) Objective Data Objective Data Vital Signs: Vital Signs Temp Pulse Resp BP Pulse Ox O2 Del Method O2 Flow Rate 98.5 F 64 18 106/85 H 97 Room Air 2 01/22/24 09:30 01/22/24 09:30 01/22/24 09:30 01/22/24 09:30 01/22/24 09:30 01/22/24 09:30 01/22/24 07:50 Oxygen Flow Rate (L/min) 2 Oxygen Delivery Method Room Air Weight: 180 lb 5.41 oz Body Mass Index (BMI) 33.0 Intake & Output: Intake and Output for Last 24 Hours 01/20/24 01/21/24 01/22/24 23:59 23:59 23:59 Intake Total 3750 / 3750 3632.5 / 3632.5 360 / 360 Output Total 950 / 950 3050 / 3050 1950 / 1950 Balance 2800 / 2800 582.5 / 582.5 -1590 / -1590 Lab / Micro Data 01/21/24 07:10 01/21/24 07:10 Labs: Laboratory Results - last 24 hr 01/21/24 17:02: POC Glucose 179 H 01/21/24 21:36: POC Glucose 113 H 01/22/24 07:51: POC Glucose 210 H 01/22/24 11:24: POC Glucose 161 H Micro: Microbiology 01/20/24 10:30 Urine, Catheterized Urine Culture - Final Presumptive C albicans 01/20/24 10:24 Mucosa - Nose SARS-CoV-2, Influenza & RSV (PCR) - Final Radiography Diagnostic Testing: Radiology Impression Abdomen/Pelvis CT 01/22/24 11:10 IMPRESSION: Simple bilateral renal cysts, nonobstructing renal stones, no specific follow-up needed No free intraperitoneal fluid, air, or suspicious adenopathy Retained stool throughout the colon Diffuse atherosclerosis Degenerative bony changes Electronically Signed: Miah Hitchcock MD at 12:21 EDT , Physical Exam Narrative Seen and examined. 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 In custodial, she did not had Dickson catheter but has chronic urinary incontinence. Denies burning micturition. Physical exam General: Alert, Oriented x3, Cooperative HEENT: Atraumatic, PERRLA, EOMI, Normocephalic. Mild facial puffiness mostly over periorbital region Oral: No Gingival or Mucosal Lesions/ Ulcerations Neck: Supple, No JVD, Negative Carotid Bruits Chest wall/Lungs: Air entry diminished in bilateral lung bases. No crepitation/rhonchi Cardiovascular: Regular rate, Regular Rhythm, Normal S1, Normal S2, No M/G/R Abdomen: Bowel Sounds Present, Soft, Non Tender, Non-Distended : Dickson catheter. No dysuria. No renal angle tenderness. No suprapubic tenderness. Extremities: Mild pedal edema, Capillary Refill Less than 3 Seconds Skin: No rashes, No breakdown Musculoskeletal: No Tenderness to Palpation of Joints or Extremities Neurological: Cranial nerves II-XII grossly intact, DTR 2+/4. No acute focal neurological deficit. Psych/Mental Status: Normal Affect, Appropriate. Assessment & Plan Assessment/Plan (1) CHETNA (acute kidney injury): (2) Acute hyperkalemia: (3) Acute UTI: PLAN: Plan Patient is a 73-year-old lady with history of recurrent admissions for acute cystitis admitted with progressive generalized weakness fever and abnormal labs, hyperkalemia K6.9 on outpatient labs. 1. Low-grade fever with abnormal UA: UA shows LE 500 and nitrite positive. 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 Patient started on meropenem and urine cultures were ordered. Urine culture shows presumptive Sandy. Subsequently meropenem discontinued. Discussed with the ID and okay with monitor off antibiotic. Had just one-time low-grade temperature 100.1 ?F. Leukocytosis resolved. 01/21: Leukocytosis resolved. No burning pain before the catheterization. Rest as already mentioned. No fever off antibiotic. This time, UTI ruled out 2. Acute kidney injury on superimposed CKD stage IIIb her baseline creatinine runs around 1.25, estimated creatinine clearance about 40 mill per minute. Admitting BUNs/creatinine 38/1.77. BUNs/creatinine high 34/1.56. 01/21: Creatinine improving. CT abdomen/pelvis without contrast was done. Shows no obstructive uropathy but nonobstructive renal stones. This was discussed with urologist Dr. Young and she knows that she has nonobstructive stone and no neurologic procedure indicated. Dr. Young consulted. Furthermore, I talked to patient's information specialist Dr. Alvarez whom patient has seen about 2 years ago. Creatinine improving, agrees with the plan. She can follow-up with Dr. Alvarez as she is out of town 3. Hyperkalemia ? Secondary to impaired kidney function treatment initiated per protocol. Patient admitted to a monitored bed. Response to therapy being monitored with repeat BMP. Patient is on trimethoprim discontinued given the hyperkalemia. Hyperkalemia resolved 4.? Anemia - Secondary to chronic disorder monitoring H&H and transfuse if patient becomes symptomatic or hemoglobin falls below? 7. H&H decreased from 10.6-8.5. 01/21 follow H&H. 5.? Benign essential hypertension - Blood pressure controlled, home medications continued with dose adjustment as needed 6.? Diabetes mellitus type II -patient's oral hypoglycemics held. Placed on long acting insulin, Accu-Cheks a.c. and at bedtime and covered with sliding scale insulin 7.? Seizure disorder ? Did continue patient antiseizure medications 8.? Paroxysmal A. fib ?Rate controlled.? Patient not on systemic anticoagulation 11.? Tachybradycardia syndrome ? Status post pacemaker placement 11.? DVT prophylaxis SC heparin Charges/Coding Visit Charges Inpatient E&M: 95549 Subs Hosp L2
[2024-01-22] MEDS: Acetaminophen 325 MG Tablet 650 MG PO (15:27)
[2024-01-22 15:55] LABS: Absolute Lymphocyte Count 2.05 X10^3/uL (0.83-4.51); Absolute Neutrophil Count 4.1 X10^3/uL (2.0-7.7); Basophil# 0.03 X10^3/uL; Basophil% 0.4 % (0-1); Eosinophil# 0.26 X10^3/uL; Eosinophils% 3.6 % (0-5); Hematocrit 34.2 % (37-47); Hemoglobin 10.4 g/dL (12.0-15.0); Lymphocyte # 2.05 X10^3/ul (0.83-4.51); Lymphocyte % 28.3 % (19-41); Mean Corp Hgb Conc 30.4 g/dL (32-36); Mean Corpuscular Hgb 28.3 pg (27.0-32.0); Mean Corpuscular Volume 92.9 fL (81-99); Mean Platelet Vol. 10.5 fl (6.2-12.0); Monocyte# 0.77 X10^3/uL; Monocyte% 10.6 % (0-10); NRBC Flagged by Analyzer 0 % (0-5); Neutrophil # 4.07 X10^3/uL (2.7-7.7); Neutrophil % 56.1 % (47-70); Platelet Count 195 K/mm3 (150-450); RBC Distribution Width CV 17.8 % (11.6-14.6); RBC Distribution Width SD 61.4 fl (35.1-43.9); Red Blood Count 3.68 M/mm3 (4.2-5.4); White Blood Count 7.3 K/mm3 (4.4-11.0)
[2024-01-22 16:11] LABS: Anion Gap 7 (5-15); BUN 24 mg/dL (7-18); BUN/Creat Ratio 21.2 RATIO (10-20); Calcium,Total 8.9 mg/dL (8.5-10.1); Chloride 105 mmol/L (98-107); Creatinine, Serum 1.13 mg/dL (0.55-1.02); EST Glomerular Filtration Rate 50 mL/min (>60); Est Glom Filt Rate - Afr Amer 61 mL/min (>60); Estimated Creatinine Clearance 45.26 ml/min; Glucose 159 mg/dL (74-106); Potassium 4.5 mmol/L (3.5-5.1); Sodium Level 134 mmol/L (136-145)
[2024-01-22 16:45] LABS: Bacteria 0 SEEN /hpf (None Seen); Color, Urine Yellow (Yellow); Glucose, Dipstick Normal (Normal); Ketone-Dipstick Negative (Negative); Leukocyte Esterase-Dipstick 500 /ul (Negative); Mucous, Urine 0 SEEN /hpf (<or=2+); Nitrite-Dipstick Negative (Negative); Occult Blood-Urine 10 /ul (Negative); Protein-Dipstick 500 mg/dl (Negative); Red Blood Cells-Urine 0 SEEN /hpf (0-5); Specific Gravity, Urine 1.015 (1.002-1.030); Squamous Epithelial Cells - UA 0 SEEN /hpf (5-10); Urine Bilirubin Dipstick Negative (Negative); Urine Clarity Clear (Clear); Urine Urobilinogen Normal (Normal); Urine pH 6.5 (5.0 - 8.0)
[2024-01-22 16:52] LABS: White Blood Cells 25-50 SEEN /hpf (0-5)
[2024-01-22 17:17] LABS: Bedside Glucose 133 mg/dL (74-106)
[2024-01-22] MEDS: Mirtazapine 30 MG Tablet PO (22:33)
[2024-01-22] MEDS: amLODIPine 5 MG Tablet PO (22:33)
[2024-01-22] MEDS: Insulin Glargine-YFGN 100 UNIT/ML Pen 24 UNIT SC (22:39)
[2024-01-22] MEDS: 0.9% Saline Lock 10 ML Syringe IV (22:42)
[2024-01-22 23:02] LABS: Bedside Glucose 169 mg/dL (74-106)
[2024-01-23 03:28] VITALS: BP 132/71; PULSE 63; RESP 16; TEMP 37.1; O2SAT 93
[2024-01-23 03:29] VITALS: BMI 33.0
[2024-01-23] MEDS: Carbidopa/Levodopa 10/100 Tablet PO ×2 (06:07→11:35)
[2024-01-23 06:50] LABS: Absolute Neutrophil Count 2.6 X10^3/uL (2.0-7.7); Basophil# 0.06 X10^3/uL; Basophil% 0.9 % (0-1); Eosinophil# 0.33 X10^3/uL; Eosinophils% 4.8 % (0-5); Hemoglobin 9.7 g/dL (12.0-15.0); Lymphocyte % 42.6 % (19-41); Mean Corp Hgb Conc 29.4 g/dL (32-36); Mean Corpuscular Hgb 27.3 pg (27.0-32.0); Monocyte# 0.87 X10^3/uL; Monocyte% 12.8 % (0-10); NRBC Flagged by Analyzer 0 % (0-5); Neutrophil # 2.57 X10^3/uL (2.7-7.7); Neutrophil % 37.7 % (47-70); Platelet Count 194 K/mm3 (150-450); RBC Distribution Width CV 17.8 % (11.6-14.6); RBC Distribution Width SD 60.4 fl (35.1-43.9); Red Blood Count 3.55 M/mm3 (4.2-5.4); White Blood Count 6.8 K/mm3 (4.4-11.0)
[2024-01-23 07:16] LABS: Anion Gap 9 (5-15); BUN 25 mg/dL (7-18); BUN/Creat Ratio 22.3 RATIO (10-20); Calcium,Total 8.9 mg/dL (8.5-10.1); Chloride 105 mmol/L (98-107); Creatinine, Serum 1.12 mg/dL (0.55-1.02); EST Glomerular Filtration Rate 51 mL/min (>60); Est Glom Filt Rate - Afr Amer 62 mL/min (>60); Estimated Creatinine Clearance 45.69 ml/min; Glucose 178 mg/dL (74-106); Potassium 4.4 mmol/L (3.5-5.1); Sodium Level 136 mmol/L (136-145)
[2024-01-23 08:01] LABS: Bedside Glucose 173 mg/dL (74-106)
[2024-01-23 08:09] VITALS: O2SAT 96
[2024-01-23] MEDS: Insulin Lispro 100 UNIT/ML INSULN.PEN 7 UNIT SC ×2 (08:13→11:35)
[2024-01-23] MEDS: Insulin Lispro 100 UNIT/ML INSULN.PEN SC (08:13)
[2024-01-23 09:15] VITALS: BP 106/55; PULSE 60; RESP 18; TEMP 36.8; O2SAT 94
[2024-01-23] MEDS: Citalopram 10 MG Tablet PO (09:15)
[2024-01-23] MEDS: Aspirin E.C. 81 MG Tablet PO (09:15)
[2024-01-23] MEDS: Pregabalin 75 MG Capsule 150 MG PO (09:15)
[2024-01-23] MEDS: Senna/Docusate Sodium 1 Tablet 2 TABLET PO (09:15)
[2024-01-23] MEDS: Lacosamide 50 MG Tablet 150 MG PO (09:15)
[2024-01-23] MEDS: Allopurinol 100 MG Tablet PO (09:15)
[2024-01-23] MEDS: cloBAZam 10 MG TABLET 5 MG PO (09:16)
[2024-01-23] MEDS: Menthol/Lanolin/Calamine/Znox 113 GM Tube 1 APPLIC TOPICAL (09:16)
[2024-01-23] MEDS: Heparin Injection (Vial) 5,000 UNIT/ML VIAL 5000 UNIT SC (09:16)
--- NOTE | 2024-01-23 11:24 | TREXTCAR_ITS ---
Diet Diet Order/Speech Therapy: 01/20/24 12:49 Diet: Cardiac: Calorie-Controlled Food consistency:: Regular Liquid Consistency:: Regular/Thin Dietary Modifications:: Consistent Carbohydrate How many daily calories?: 1800 calorie Routine Orders/Code Status Suppository Type: Dulcolax 10mg Suppository Frequency: Daily PRN Therapies Weight Bearing: Weight bearing as tolerated Extremity Affected:: Bilateral Lower Physical Therapy: Eval and Treat Occupational Therapy: Eval and Treat Speech Therapy: Eval and Treat Problem/Diagnosis (1) CHETNA (acute kidney injury): Status: Acute Code(s): N17.9 - Acute kidney failure, unspecified (2) Acute hyperkalemia: Status: Acute Code(s): E87.5 - Hyperkalemia (3) Acute UTI: Status: Acute Code(s): N39.0 - Urinary tract infection, site not specified Plan Patient is a 73-year-old lady with history of recurrent admissions for acute cystitis admitted with progressive generalized weakness fever and abnormal labs, hyperkalemia K6.9 on outpatient labs. 1. Low-grade fever with abnormal UA: UA shows LE 500 and nitrite positive. 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 Patient started on meropenem and urine cultures were ordered. Urine culture shows presumptive Sandy. Subsequently meropenem discontinued. Discussed with the ID and okay with monitor off antibiotic. Had just one-time low-grade temperature 100.1 ?F. Leukocytosis resolved. 01/21: Leukocytosis resolved. No burning pain before the catheterization. Rest as already mentioned. No fever off antibiotic. This time, UTI ruled out. 01/22: CT abdomen was done, individually reviewed and shows no obstructive uropathy or suspicious solid renal lesion. Simple bilateral renal cysts and small bilateral nonobstructing stones which Dr. Young already knows. Discussed with the urologist. Discontinue Dickson catheter. She has mild candiduria and Dickson catheter is at risk for further UTI or fungal infection. Blood culture negative for more than 48 hours. Urine culture shows candiduria. No antibiotic indicated. CT also shows retained stool. Continue [id number] MiraLAX and senna S. Dulcolax suppository as needed 2. Acute kidney injury on superimposed CKD stage IIIb her baseline creatinine runs around 1.25, estimated creatinine clearance about 40 mill per minute. Admitting BUNs/creatinine 38/1.77. BUNs/creatinine high 34/1.56. 01/21: Creatinine improving. CT abdomen/pelvis without contrast was done. Shows no obstructive uropathy but nonobstructive renal stones. This was discussed with urologist Dr. Young and she knows that she has nonobstructive stone and no neurologic procedure indicated. Dr. Young consulted. Furthermore, I talked to patient's relief map modeler Dr. Alvarez whom patient has seen about 2 years ago. Creatinine improving, agrees with the plan. She can follow-up with Dr. Alvarez as she is out of town 01/22: Follow with a relief map modeler as an outpatient. BUNs/creatinine improved to 25/1.12. CHETNA resolved. Creatinine is on baseline. 3. Hyperkalemia ? Secondary to impaired kidney function treatment initiated per protocol. Patient admitted to a monitored bed. Response to therapy being monitored with repeat BMP. Patient is on trimethoprim discontinued given the hyperkalemia. Hyperkalemia resolved 4.? Anemia of chronic disease - Secondary to chronic disorder monitoring H&H and transfuse if patient becomes symptomatic or hemoglobin falls below? 7. H&H decreased from 10.6-8.5. 01/22: H&H 9.7/33%. 5.? Benign essential hypertension - Blood pressure controlled, home medications continued with dose adjustment as needed 6.? Diabetes mellitus type II -patient's oral hypoglycemics held. Placed on long acting insulin, Accu-Cheks a.c. and at bedtime and covered with sliding scale insulin 7.? Seizure disorder ? Did continue patient antiseizure medications 8.? Paroxysmal A. fib ?Rate controlled.? Patient not on systemic anticoagulation 11.? Tachybradycardia syndrome ? Status post pacemaker placement 11.? DVT prophylaxis SC heparin Discharge medication reconciliation done. Discharge follow-up instructions completed. Discharge process discussed with the patient and all questions were answered to patient's satisfaction. Follow with PCP in 1 to 2 weeks Total time spent, exact 35 minutes on discharge meds reconciliation, examination, coordination of care with nurses and ancillary staff, review of imaging and blood test and discussion with the patient on follow-up instructions. Clinical Impression(s) from Imaging Studies Chest X-Ray 01/20/24 11:00 IMPRESSION: Stable chest with no acute or active cardiopulmonary disease. Abdomen/Pelvis CT 01/22/24 11:10 IMPRESSION: Simple bilateral renal cysts, nonobstructing renal stones, no specific follow-up needed No free intraperitoneal fluid, air, or suspicious adenopathy Retained stool throughout the colon Diffuse atherosclerosis Degenerative bony changes Allergies/Procedures Done in Hospital Allergies amoxicillin (From Augmentin) Allergy (Verified 01/20/24 09:25) Rash RASH ON FACE clavulanic acid (From Augmentin) Allergy (Verified 01/20/24 09:25) Rash RASH ON FACE escitalopram (From Lexapro) Allergy (Verified 01/20/24 09:25) Rash shellfish derived Allergy (Verified 01/20/24 09:25) Unknown hydroxychloroquine (From Plaquenil) Adverse Reaction (Severe, Verified 01/20/24 09:25) Unknown house dust Adverse Reaction (Verified 01/20/24 09:25) NEEDS FOLLOW-UP perfume Adverse Reaction (Verified 01/20/24 09:25) Unknown pineapple Adverse Reaction (Verified 01/20/24 09:25) Rash quinine Adverse Reaction (Verified 01/20/24 09:25) Unknown strawberry Adverse Reaction (Verified 01/20/24 09:25) Rash Sulfa (Sulfonamide Antibiotics) Adverse Reaction (Verified 01/20/24 09:25) Unknown Type of Care/Length of Stay Estimated LOS: More Than 30 Days Type of Care Needed: Intermediate Rehab Potential: Good Prognosis: Good Additional Orders/Day of Discharge Day of Discharge: 01/23/24 Dietary and Speech Recommendations Dietitian Recommendations/Changes: Will continue 1800 calorie/consistent carbohydrate; cardiac diet Offer PO glucerna shake as needed if PO fails at meals, will defer for now. Discharge Plan Admission Admit Date/Time: 01/20/24 11:25 Attending Provider: Aly Randhawa Primary Care Provider: Hannah Riggs Consulting Providers: Ronak Espnioza; Marie Young Discharge Orders/Prescriptions Prescriptions: New sennosides-docusate sodium [Stool Softener-Stimulant Laxat] 8.6-50 mg Tablet 2 tab PO BID Qty: 0 0RF Continued allopurinol 100 mg tablet 100 mg PO DAILY aspirin [Adult Low Dose Aspirin] 81 mg tablet,delayed release (DR/EC) 81 mg PO DAILY Januvia 50 mg Tablet 100 mg PO DAILY clobazam 10 mg tablet 5 mg PO DAILY ferrous sulfate 325 mg (65 mg iron) tablet,delayed release (DR/EC) 325 mg PO QODAY hydralazine 10 mg tablet 10 mg PO TID alendronate 70 mg tablet 70 mg PO SA carbidopa-levodopa 10-100 mg tablet 1 tab PO TID citalopram 10 mg tablet 10 mg PO DAILY estradiol 0.01 % (0.1 mg/gram) cream 1 appful VAGINAL PRECIADO insulin glargine [Lantus Solostar U-100 Insulin] 100 unit/mL (3 mL) insulin pen 24 unit SUBCUT QHS lacosamide 150 mg tablet 150 mg PO BID insulin lispro 100 unit/mL insulin pen See Protocol subcut BIDCM Protocol: 6. Sliding Scale Insulin Custom Condition: mg/dl range Dose/Route: Number of Units Condition: 151-200 Dose/Route: 1 Condition: 201-250 Dose/Route: 2 Condition: 251-300 Dose/Route: 3 Condition: 301-350 Dose/Route: 4 Condition: 351-400 Dose/Route: 5 Instruction: CALL IF >350 Protocol Text: Custom Sliding Scale Rx Instructions: CALL MD IF <50 OR > 350 pregabalin 150 mg capsule 150 mg PO BID calcium carbonate [Calcium 500] 500 mg calcium (1,250 mg) tablet,chewable 500 mg PO Q4H PRN (Reason: GERD) amlodipine 5 mg tablet 5 mg PO QHS mirtazapine 30 mg tablet 30 mg PO QHS ondansetron HCl 8 mg tablet 8 mg PO Q8H PRN (Reason: NAUSEA ) insulin lispro 100 unit/mL insulin pen 5 unit subcut DINNER Rx Instructions: INJECT 5 UNITS SUBCUTANEOUSLY ONE TIME A DAY FOR DM. HUMALOG. SUPPER DOSE. GIVE IN ADDITION TO SLIDING SCALE INSULIN. metformin 500 mg tablet 500 mg PO DAILY ascorbic acid (vitamin C) 500 mg tablet 500 mg PO DAILY insulin lispro 100 unit/mL insulin pen 7 unit subcut BID cranberry 500 mg capsule 500 mg PO TID Changed acetaminophen 500 mg tablet 1,000 mg PO Q8H PRN PRN (Reason: PAIN/FEVER) 30 Days Qty: 0 0RF Discontinued sennosides-docusate sodium [Senexon-S] 8.6-50 mg tablet 1 tab-cap PO DAILY PRN (Reason: CONSTIPATION ) daptomycin in 0.9 % sod chlor 500 mg/50 mL piggyback 500 mg IV DAILY Patient Comments: USE 600MG IV DAILY UNTIL 12/25/2023 Rx Instructions: administer over 30 mins heparin, porcine (PF) [Heparin LockFlush(Porcine)(PF)] 100 unit/mL syringe 250 unit IV BID Rx Instructions: FOR IV ANTIBIOTIC THERAPY UNTIL 12/25/23 daptomycin 500 mg Recon Soln 500 mg IV Q24H 3 Days Qty: 3 0RF Rx Instructions: dx: VRE infection trimethoprim 100 mg tablet 100 mg PO QHS Rx Instructions: GIVE ONE TABLET BY MOUTH AT BEDTIME UNTIL 04/05/2024 Referrals / Follow Up: Teresa Alvarez DO [Med Staff - Consulting] - Within 2 Weeks Marie Young MD [Med Staff - Active Staff] - Within 1 Month Hannah Riggs DO [Primary Care Provider] - Within 2 Weeks Disposition Disposition (needs filled in before D/C Order can be placed): NonSkilled NH/Intermed Care
[2024-01-23 11:54] LABS: Bedside Glucose 147 mg/dL (74-106)
--- NOTE | 2024-01-23 13:42 | PCM.DC.SUM ---
Providers Date of Admission: 01/20/24 Date of Discharge: 01/23/24 Primary Care Physician: Dr. Hannah Riggs, DO Consultations 01/22/24 14:22 Consult: Urology Routine Consulting Provider: Marie Young Reason for Consult: CHETNA probably postobstructive, creatinine improving on Dickson catheter EMERGENT Consult: No MD Notified: Yes Date Notified: 01/22/24 Time Notified: 14:23 Method of Notification: Verbal Reason For Visit: UTI, CHETNA, HYPERKALEMIA Diagnosis Discharge Diagnosis (1) CHETNA (acute kidney injury): Status: Acute Code(s): N17.9 - Acute kidney failure, unspecified (2) Acute hyperkalemia: Status: Acute Code(s): E87.5 - Hyperkalemia (3) Acute UTI: Status: Acute Code(s): N39.0 - Urinary tract infection, site not specified Plan Patient is a 73-year-old lady with history of recurrent admissions for acute cystitis admitted with progressive generalized weakness fever and abnormal labs, hyperkalemia K6.9 on outpatient labs. 1. Low-grade fever with abnormal UA: UA shows LE 500 and nitrite positive. 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 Patient started on meropenem and urine cultures were ordered. Urine culture shows presumptive [place]. Subsequently meropenem discontinued. Discussed with the ID and manasaay with monitor off antibiotic. Had just one-time low-grade temperature 100.1 ?F. Leukocytosis resolved. 01/21: Leukocytosis resolved. No burning pain before the catheterization. Rest as already mentioned. No fever off antibiotic. This time, UTI ruled out. 01/22: CT abdomen was done, individually reviewed and shows no obstructive uropathy or suspicious solid renal lesion. Simple bilateral renal cysts and small bilateral nonobstructing stones which Dr. Young already knows. Discussed with the urologist. Discontinue Dickson catheter. She has mild candiduria and Dickson catheter is at risk for further UTI or fungal infection. Blood culture negative for more than 48 hours. Urine culture shows candiduria. No antibiotic indicated. CT also shows retained stool. Continue [id number] MiraLAX and senna S. Dulcolax suppository as needed 2. Acute kidney injury on superimposed CKD stage IIIb her baseline creatinine runs around 1.25, estimated creatinine clearance about 40 mill per minute. Admitting BUNs/creatinine 38/1.77. BUNs/creatinine high 34/1.56. 01/21: Creatinine improving. CT abdomen/pelvis without contrast was done. Shows no obstructive uropathy but nonobstructive renal stones. This was discussed with urologist Dr. Young and she knows that she has nonobstructive stone and no neurologic procedure indicated. Dr. Young consulted. Furthermore, I talked to patient's taker off drying kiln Dr. Alvarez whom patient has seen about 2 years ago. Creatinine improving, agrees with the plan. She can follow-up with Dr. Alvarez as she is out of town 01/22: Follow with a taker off drying kiln as an outpatient. BUNs/creatinine improved to 25/1.12. CHETNA resolved. Creatinine is on baseline. 3. Hyperkalemia ? Secondary to impaired kidney function treatment initiated per protocol. Patient admitted to a monitored bed. Response to therapy being monitored with repeat BMP. Patient is on trimethoprim discontinued given the hyperkalemia. Hyperkalemia resolved 4.? Anemia of chronic disease - Secondary to chronic disorder monitoring H&H and transfuse if patient becomes symptomatic or hemoglobin falls below? 7. H&H decreased from 10.6-8.5. 01/22: H&H 9.7/33%. 5.? Benign essential hypertension - Blood pressure controlled, home medications continued with dose adjustment as needed 6.? Diabetes mellitus type II -patient's oral hypoglycemics held. Placed on long acting insulin, Accu-Cheks a.c. and at bedtime and covered with sliding scale insulin 7.? Seizure disorder ? Did continue patient antiseizure medications 8.? Paroxysmal A. fib ?Rate controlled.? Patient not on systemic anticoagulation 11.? Tachybradycardia syndrome ? Status post pacemaker placement 11.? DVT prophylaxis SC heparin Discharge medication reconciliation done. Discharge follow-up instructions completed. Discharge process discussed with the patient and all questions were answered to patient's satisfaction. Follow with PCP in 1 to 2 weeks Total time spent, exact 35 minutes on discharge meds reconciliation, examination, coordination of care with nurses and ancillary staff, review of imaging and blood test and discussion with the patient on follow-up instructions. Clinical Impression(s) from Imaging Studies Chest X-Ray 01/20/24 11:00 IMPRESSION: Stable chest with no acute or active cardiopulmonary disease. Abdomen/Pelvis CT 01/22/24 11:10 IMPRESSION: Simple bilateral renal cysts, nonobstructing renal stones, no specific follow-up needed No free intraperitoneal fluid, air, or suspicious adenopathy Retained stool throughout the colon Diffuse atherosclerosis Degenerative bony changes Medications at Discharge Home Medications sitagliptin phosphate 50 mg tablet (Januvia) 100 mg PO DAILY DIABETES 11/19/21 allopurinol 100 mg tablet 100 mg PO DAILY GOUT 12/10/22 aspirin 81 mg tablet,delayed release (Adult Low Dose Aspirin) 81 mg PO DAILY HEART HEALTH 12/10/22 alendronate 70 mg tablet 70 mg PO SA BONE HEALTH 06/15/23 carbidopa 10 mg-levodopa 100 mg tablet 1 tab PO TID PARKINSONS 06/15/23 citalopram 10 mg tablet 10 mg PO DAILY DEPRESSION 06/15/23 estradiol 0.01% (0.1 mg/gram) vaginal cream 1 appful vaginal PRECIADO HORMONES 06/15/23 insulin glargine 100 unit/mL (3 mL) subcutaneous pen (Lantus Solostar U-100 Insulin) 24 unit subcut QHS DIABETES 06/15/23 lacosamide 150 mg tablet 150 mg PO BID EPILEPSY 06/15/23 clobazam 10 mg tablet 5 mg PO DAILY EPILEPSY 10/12/23 ferrous sulfate 325 mg (65 mg iron) tablet,delayed release 325 mg PO QODAY ANEMIA 10/12/23 hydralazine 10 mg tablet 10 mg PO TID BLOOD PRESSURE 10/12/23 calcium carbonate (Calcium 500) 500 mg PO Q4H PRN GERD 12/14/23 insulin lispro 100 unit/mL subcutaneous pen See Protocol subcut BIDCM DIABETES 12/14/23 pregabalin 150 mg capsule 150 mg PO BID EPILEPSY 12/14/23 amlodipine 5 mg tablet 5 mg PO QHS BLOOD PRESSURE 12/18/23 mirtazapine 30 mg tablet 30 mg PO QHS DEPRESSION 12/18/23 ondansetron HCl 8 mg tablet 8 mg PO Q8H PRN NAUSEA 12/18/23 ascorbic acid (vitamin C) 500 mg tablet 500 mg PO DAILY SUPPLEMENT 01/20/24 cranberry 500 mg capsule 500 mg PO TID UTI PREVENTION 01/20/24 insulin lispro 100 unit/mL subcutaneous pen 5 unit subcut DINNER DIABETES 01/20/24 insulin lispro 100 unit/mL subcutaneous pen 7 unit subcut BID DIABETES 01/20/24 metformin 500 mg tablet 500 mg PO DAILY DIABETES 01/20/24 acetaminophen 500 mg tablet 1,000 mg (2 x 500 mg) PO Q8H PRN PRN PAIN/FEVER 30 days #0 tabs 01/23/24 sennosides 8.6 mg-docusate sodium 50 mg tablet (Stool Softener-Stimulant Laxative) 2 tab PO BID #0 tabs 01/23/24 Physical Exam Narrative Seen and examined. This time patient does not have UTI. Denies burning micturition. Physical exam General: Alert, Oriented x3, Cooperative HEENT: Atraumatic, PERRLA, EOMI, Normocephalic. Mild facial puffiness mostly over periorbital region on chronic Oral: No Gingival or Mucosal Lesions/ Ulcerations Neck: Supple, No JVD, Negative Carotid Bruits Chest wall/Lungs: Air entry diminished in bilateral lung bases. No crepitation/rhonchi Cardiovascular: Regular rate, Regular Rhythm, Normal S1, Normal S2, No M/G/R Abdomen: Bowel Sounds Present, Soft, Non Tender, Non-Distended : Dickson catheter. No dysuria. No renal angle tenderness. No suprapubic tenderness. Extremities: Mild pedal edema, Capillary Refill Less than 3 Seconds Skin: No rashes, No breakdown Musculoskeletal: No Tenderness to Palpation of Joints or Extremities Neurological: Cranial nerves II-XII grossly intact, DTR 2+/4. No acute focal neurological deficit. Chronic Parkinson disease Psych/Mental Status: Normal Affect, Appropriate. Weight / BMI Weight Weight: 180 lb 8.937 oz Body Mass Index (BMI) 33.0 ABG / Lab / Microbiology Data 01/23/24 05:50 01/23/24 05:50 Laboratory: Laboratory Results - last 24 hr 01/22/24 15:47: WBC 7.3, RBC 3.68 L, Hgb 10.4 L, Hct 34.2 L, MCV 92.9, MCH 28.3, MCHC 30.4 L D, RDW Std Deviation 61.4 H, RDW Coeff of Ernesto 17.8 H, Plt Count 195, MPV 10.5, Immature Gran % (Auto) 1.000 H, Neut % (Auto) 56.1, Lymph % (Auto) 28.3, [place] % (Auto) 10.6 H, Eos % (Auto) 3.6, Baso % (Auto) 0.4, Absolute Neuts (auto) 4.1, Absolute Lymphs (auto) 2.05, Nucleated RBC % 0, Sodium 134 L, Potassium 4.5, Chloride 105, Carbon Dioxide 22.0, Anion Gap 7, BUN 24 H, Creatinine 1.13 H, Estim Creat Clear Calc 45.26, Est GFR (MDRD) Af Amer 61, Est GFR (MDRD) Non-Af 50 L, BUN/Creatinine Ratio 21.2 H, Glucose 159 H, Calcium 8.9 01/22/24 16:30: POC Glucose 133 H 01/22/24 16:35: Urine Color Yellow, Urine Clarity Clear, Urine pH 6.5, Ur Specific [place] 1.015, Urine Protein 500 H, Urine Glucose (UA) Normal, Urine Ketones Negative, Urine Occult Blood 10 H, Urine Nitrite Negative, Urine Bilirubin Negative, Urine Urobilinogen Normal, Ur Leukocyte Esterase 500 H, Urine RBC 0 SEEN, Urine WBC 25-50 SEEN, Ur Squamous Epith Cells 0 SEEN, Urine Bacteria 0 SEEN, Urine Mucus 0 SEEN 01/22/24 22:25: POC Glucose 169 H 01/23/24 05:50: WBC 6.8, RBC 3.55 L, Hgb 9.7 L, Hct 33.0 L, MCV 93.0, MCH 27.3, MCHC 29.4 L, RDW Std Deviation 60.4 H, RDW Coeff of Ernesto 17.8 H, Plt Count 194, MPV 11.0, Immature Gran % (Auto) 1.200 H, Neut % (Auto) 37.7 L, Lymph % (Auto) 42.6 H, [place] % (Auto) 12.8 H, Eos % (Auto) 4.8, Baso % (Auto) 0.9, Absolute Neuts (auto) 2.6, Absolute Lymphs (auto) 2.90, Nucleated RBC % 0, Sodium 136, Potassium 4.4, Chloride 105, Carbon Dioxide 22.0, Anion Gap 9, BUN 25 H, Creatinine 1.12 H, Estim Creat Clear Calc 45.69, Est GFR (MDRD) Af Amer 62, Est GFR (MDRD) Non-Af 51 L, BUN/Creatinine Ratio 22.3 H, Glucose 178 H, Calcium 8.9 01/23/24 07:42: POC Glucose 173 H 01/23/24 11:35: POC Glucose 147 H Microbiology: Microbiology 01/20/24 10:12 Blood Culture (Wb) - Right Hand Blood Culture - Preliminary No growth in 48 hours. 01/20/24 10:03 Blood Culture (Wb) - Left Forearm Blood Culture - Preliminary No growth in 48 hours. 01/20/24 10:30 Urine, Catheterized Urine Culture - Final Presumptive C albicans 01/20/24 10:24 Mucosa - Nose SARS-CoV-2, Influenza & RSV (PCR) - Final Meaningful Use Info Meaningful Use Meaningful Use Diagnoses (Choose all that apply): None applicable Ischemic Stroke Statin Dosing Therapy Reference: STATIN DOSE THERAPY REFERENCE: * Patients > 75 years receive moderate or high dose statin therapy. * Patients 75 years or YOUNGER should receive HIGH intensity statin dose unless contraindicated. You will be required to document reason for non-treatment if statin daily dose does not meet guidelines. HIGH DOSE STATIN THERAPY DAILY Atorvastatin > than or = to 40 mg Rosuvastatin > than or = to 20 mg Amlodipine + Atorvastatin > than or = to 2.5/40 mg Ezetimibe + Simvastatin 10/80 mg Simvastatin 80mg Discharge Plan Admission Admit Date/Time: 01/20/24 11:25 Attending Provider: Aly Randhawa Primary Care Provider: Hannah Riggs Consulting Providers: Ronak Espinoza; Marie Young Discharge Orders/Prescriptions Prescriptions: New sennosides-docusate sodium [Stool Softener-Stimulant Laxat] 8.6-50 mg Tablet 2 tab PO BID Qty: 0 0RF Continued allopurinol 100 mg tablet 100 mg PO DAILY aspirin [Adult Low Dose Aspirin] 81 mg tablet,delayed release (DR/EC) 81 mg PO DAILY Januvia 50 mg Tablet 100 mg PO DAILY clobazam 10 mg tablet 5 mg PO DAILY ferrous sulfate 325 mg (65 mg iron) tablet,delayed release (DR/EC) 325 mg PO QODAY hydralazine 10 mg tablet 10 mg PO TID alendronate 70 mg tablet 70 mg PO SA carbidopa-levodopa 10-100 mg tablet 1 tab PO TID citalopram 10 mg tablet 10 mg PO DAILY estradiol 0.01 % (0.1 mg/gram) cream 1 appful VAGINAL PRECIADO insulin glargine [Lantus Solostar U-100 Insulin] 100 unit/mL (3 mL) insulin pen 24 unit SUBCUT QHS lacosamide 150 mg tablet 150 mg PO BID insulin lispro 100 unit/mL insulin pen See Protocol subcut BIDCM Protocol: 6. Sliding Scale Insulin Custom Condition: mg/dl range Dose/Route: Number of Units Condition: 151-200 Dose/Route: 1 Condition: 201-250 Dose/Route: 2 Condition: 251-300 Dose/Route: 3 Condition: 301-350 Dose/Route: 4 Condition: 351-400 Dose/Route: 5 Instruction: CALL IF >350 Protocol Text: Custom Sliding Scale Rx Instructions: CALL MD IF <50 OR > 350 pregabalin 150 mg capsule 150 mg PO BID calcium carbonate [Calcium 500] 500 mg calcium (1,250 mg) tablet,chewable 500 mg PO Q4H PRN (Reason: GERD) amlodipine 5 mg tablet 5 mg PO QHS mirtazapine 30 mg tablet 30 mg PO QHS ondansetron HCl 8 mg tablet 8 mg PO Q8H PRN (Reason: NAUSEA ) insulin lispro 100 unit/mL insulin pen 5 unit subcut DINNER Rx Instructions: INJECT 5 UNITS SUBCUTANEOUSLY ONE TIME A DAY FOR DM. HUMALOG. SUPPER DOSE. GIVE IN ADDITION TO SLIDING SCALE INSULIN. metformin 500 mg tablet 500 mg PO DAILY ascorbic acid (vitamin C) 500 mg tablet 500 mg PO DAILY insulin lispro 100 unit/mL insulin pen 7 unit subcut BID cranberry 500 mg capsule 500 mg PO TID Changed acetaminophen 500 mg tablet 1,000 mg PO Q8H PRN PRN (Reason: PAIN/FEVER) 30 Days Qty: 0 0RF Discontinued sennosides-docusate sodium [Senexon-S] 8.6-50 mg tablet 1 tab-cap PO DAILY PRN (Reason: CONSTIPATION ) daptomycin in 0.9 % sod chlor 500 mg/50 mL piggyback 500 mg IV DAILY Patient Comments: USE 600MG IV DAILY UNTIL 12/25/2023 Rx Instructions: administer over 30 mins heparin, porcine (PF) [Heparin LockFlush(Porcine)(PF)] 100 unit/mL syringe 250 unit IV BID Rx Instructions: FOR IV ANTIBIOTIC THERAPY UNTIL 12/25/23 daptomycin 500 mg Recon Soln 500 mg IV Q24H 3 Days Qty: 3 0RF Rx Instructions: dx: VRE infection trimethoprim 100 mg tablet 100 mg PO QHS Rx Instructions: GIVE ONE TABLET BY MOUTH AT BEDTIME UNTIL 04/05/2024 Referrals / Follow Up: Teresa Alvarez DO [Med Staff - Consulting] - Within 2 Weeks Marie Young MD [Med Staff - Active Staff] - Within 1 Month Hannah Riggs DO [Primary Care Provider] - Within 2 Weeks Disposition Disposition (needs filled in before D/C Order can be placed): NonSkilled NH/Intermed Care Charges/Coding Visit Charges Inpatient E&M: 73622 Disch Hosp >30min
--- NOTE | 2024-01-23 14:18 | NURSING ---
Called report to nurse Tiffani at [facility]
[2024-01-23 15:04] VITALS: BP 130/66; PULSE 59; RESP 18; TEMP 37.2; O2SAT 93
== END 2024-01-23 15:29 | disposition intermediate care facility (04) | DRG 641 ==
LOC: ED 11:31 → PCU 12:14
PROVIDERS: Admitting Provider Internal Medicine; Emergency Provider Emergency Medicine; PCP Internal Medicine; Visit Provider Internal Medicine
DX: E87.5 Hyperkalemia (principal); N17.9 Acute kidney failure, unspecified; D63.8 Anemia in other chronic diseases classified elsewhere; E11.22 Type 2 diabetes mellitus with diabetic chronic kidney disease; G20.A1 Parkinson's disease without dyskinesia, without mention of fluctuations; I95.9 Hypotension, unspecified; G40.909 Epilepsy, unspecified, not intractable, without status epilepticus; N18.32 Chronic kidney disease, stage 3b; I48.0 Paroxysmal atrial fibrillation; Z79.4 Long term (current) use of insulin; I12.9 Hypertensive chronic kidney disease with stage 1 through stage 4 chronic kidney disease, or unspecified chronic kidney disease; E78.5 Hyperlipidemia, unspecified; R82.90 Unspecified abnormal findings in urine; R50.9 Fever, unspecified; N20.0 Calculus of kidney; N28.1 Cyst of kidney, acquired; Z79.82 Long term (current) use of aspirin; Z79.84 Long term (current) use of oral hypoglycemic drugs; Z79.01 Long term (current) use of anticoagulants; Z79.83 Long term (current) use of bisphosphonates; Z79.899 Other long term (current) drug therapy; Z95.0 Presence of cardiac pacemaker
CPT/HCPCS: 36415; 51702; 71045; 74176; 80048; 80053; 81001; 82962; 83605; 83735; 84100; 84132; 84145; 85025; 85610; 85730; 87040; 87086; 87088; 87631; 87811; 93005; 94640; 94668; 99252; 99285; J2185; J7030; J7050; A4216; G0463; J0612

== ENCOUNTER → 2024-01-20 | Outpatient (REF) | payer MEDICARE, MEDICAID, SELFPAY | LOC: OLS.ACH 05:00 | PROVIDERS: PCP Internal Medicine; Visit Provider Internal Medicine | DX: E87.5 Hyperkalemia (principal) | CPT/HCPCS: 36415; 84132 ==

== ENCOUNTER → 2024-01-25 05:00 | Outpatient (REF) | payer MEDICARE, MEDICAID, SELFPAY ==
[2024-01-25 09:36] LABS: Absolute Lymphocyte Count 2.89 X10^3/uL (0.83-4.51); Absolute Neutrophil Count 2.3 X10^3/uL (2.0-7.7); Basophil# 0.04 X10^3/uL; Basophil% 0.6 % (0-1); Eosinophils% 4.9 % (0-5); Hematocrit 30.8 % (37-47); Hemoglobin 9.2 g/dL (12.0-15.0); Lymphocyte # 2.89 X10^3/ul (0.83-4.51); Lymphocyte % 46.9 % (19-41); Mean Corp Hgb Conc 29.9 g/dL (32-36); Mean Corpuscular Hgb 28.4 pg (27.0-32.0); Mean Corpuscular Volume 95.1 fL (81-99); Mean Platelet Vol. 11.4 fl (6.2-12.0); Monocyte# 0.55 X10^3/uL; Monocyte% 8.9 % (0-10); NRBC Flagged by Analyzer 0 % (0-5); Neutrophil # 2.26 X10^3/uL (2.7-7.7); Neutrophil % 36.8 % (47-70); Platelet Count 186 K/mm3 (150-450); RBC Distribution Width CV 17.2 % (11.6-14.6); RBC Distribution Width SD 60.5 fl (35.1-43.9); Red Blood Count 3.24 M/mm3 (4.2-5.4); White Blood Count 6.2 K/mm3 (4.4-11.0)
[2024-01-25 09:56] LABS: Anion Gap 8 (5-15); BUN 29 mg/dL (7-18); BUN/Creat Ratio 22.8 RATIO (10-20); Calcium,Total 9.2 mg/dL (8.5-10.1); Chloride 110 mmol/L (98-107); Creatinine, Serum 1.27 mg/dL (0.55-1.02); EST Glomerular Filtration Rate 44 mL/min (>60); Est Glom Filt Rate - Afr Amer 53 mL/min (>60); Glucose 162 mg/dL (74-106); Potassium 4.4 mmol/L (3.5-5.1); Sodium Level 137 mmol/L (136-145)
== END ==
LOC: OLS.ACH 05:00
PROVIDERS: PCP Internal Medicine; Visit Provider Internal Medicine
DX: E78.5 Hyperlipidemia, unspecified (principal); Z86.19 Personal history of other infectious and parasitic diseases; Z87.440 Personal history of urinary (tract) infections; N11.8 Other chronic tubulo-interstitial nephritis; D50.9 Iron deficiency anemia, unspecified
CPT/HCPCS: 36415; 80048; 85025

== ENCOUNTER → 2024-01-26 08:02 | Outpatient (REF) | payer MEDICARE, MEDICAID, SELFPAY ==
[2024-01-26 08:03] LABS: Mucous, Urine 0 SEEN /hpf (<or=2+)
[2024-01-26 08:21] LABS: Color, Urine Yellow (Yellow); Glucose, Dipstick Normal (Normal); Ketone-Dipstick Negative (Negative); Leukocyte Esterase-Dipstick 500 /ul (Negative); Nitrite-Dipstick Negative (Negative); Occult Blood-Urine 10 /ul (Negative); Protein-Dipstick 500 mg/dl (Negative); Specific Gravity, Urine 1.015 (1.002-1.030); Urine Bilirubin Dipstick Negative (Negative); Urine Clarity Sl. Cloudy (Clear); Urine Urobilinogen Normal (Normal)
[2024-01-26 08:39] LABS: Bacteria 1+ /hpf (None Seen); Red Blood Cells-Urine 0-5 SEEN /hpf (0-5); Squamous Epithelial Cells - UA 0-5 SEEN /hpf (5-10); White Blood Cells 25-50 SEEN /hpf (0-5)
== END ==
LOC: OLS.ACH 08:02
PROVIDERS: PCP Internal Medicine; Referring Provider Internal Medicine; Visit Provider Internal Medicine
DX: R33.9 Retention of urine, unspecified (principal); N39.0 Urinary tract infection, site not specified; Z87.440 Personal history of urinary (tract) infections
CPT/HCPCS: 81001; 87086; 87088

== ENCOUNTER → 2024-01-27 05:00 | Outpatient (REF) | payer MEDICARE, MEDICAID, SELFPAY ==
[2024-01-27 08:59] LABS: Potassium 4.9 mmol/L (3.5-5.1)
== END ==
LOC: OLS.ACH 05:00
PROVIDERS: PCP Internal Medicine; Visit Provider Internal Medicine
DX: E87.5 Hyperkalemia (principal)
CPT/HCPCS: 36415; 84132

== ENCOUNTER → 2024-01-31 05:00 | Outpatient (REF) | payer MEDICARE, MEDICAID, SELFPAY ==
[2024-01-31 07:40] LABS: Potassium 4.9 mmol/L (3.5-5.1)
== END ==
LOC: OLS.ACH 05:00
PROVIDERS: PCP Internal Medicine; Visit Provider Internal Medicine
DX: E87.5 Hyperkalemia (principal)
CPT/HCPCS: 36415; 84132

== ENCOUNTER → 2024-02-03 05:00 | Outpatient (REF) | payer MEDICARE, MEDICAID, SELFPAY | LOC: OLS.ACH 05:00 | PROVIDERS: PCP Internal Medicine; Visit Provider Internal Medicine | DX: E87.5 Hyperkalemia (principal) | CPT/HCPCS: 36415; 84132 ==

== ENCOUNTER → 2024-02-07 05:00 | Outpatient (REF) | payer MEDICARE, MEDICAID, SELFPAY | LOC: OLS.ACH 05:00 | PROVIDERS: PCP Internal Medicine; Visit Provider Internal Medicine | DX: E78.5 Hyperlipidemia, unspecified (principal) | CPT/HCPCS: 36415; 84132 ==

== ENCOUNTER → 2024-02-08 05:00 | Outpatient (REF) | payer MEDICARE, MEDICAID, SELFPAY ==
[2024-02-08 09:55] LABS: Hematocrit 30.6 % (37-47); Hemoglobin 9.3 g/dL (12.0-15.0); Mean Corp Hgb Conc 30.4 g/dL (32-36); Mean Corpuscular Hgb 29.2 pg (27.0-32.0); Mean Corpuscular Volume 95.9 fL (81-99); Mean Platelet Vol. 10.7 fl (6.2-12.0); Platelet Count 167 K/mm3 (150-450); RBC Distribution Width CV 16.7 % (11.6-14.6); RBC Distribution Width SD 58.5 fl (35.1-43.9); Red Blood Count 3.19 M/mm3 (4.2-5.4); White Blood Count 5.7 K/mm3 (4.4-11.0)
[2024-02-08 10:29] LABS: Anion Gap 4 (5-15); BUN 26 mg/dL (7-18); BUN/Creat Ratio 21.1 RATIO (10-20); Calcium,Total 8.7 mg/dL (8.5-10.1); Chloride 109 mmol/L (98-107); Creatinine, Serum 1.23 mg/dL (0.55-1.02); EST Glomerular Filtration Rate 46 mL/min (>60); Est Glom Filt Rate - Afr Amer 55 mL/min (>60); Glucose 209 mg/dL (74-106); Sodium Level 136 mmol/L (136-145)
== END ==
LOC: OLS.ACH 05:00
PROVIDERS: PCP Internal Medicine; Visit Provider Internal Medicine
DX: D50.9 Iron deficiency anemia, unspecified (principal); N18.9 Chronic kidney disease, unspecified
CPT/HCPCS: 36415; 80048; 85027

== ENCOUNTER → 2024-02-10 06:45 | Outpatient (REF) | payer MEDICARE, MEDICAID, SELFPAY ==
[2024-02-10 10:19] LABS: Potassium 5.1 mmol/L (3.5-5.1)
== END ==
LOC: OLS.ACH 06:45
PROVIDERS: PCP Internal Medicine; Visit Provider Internal Medicine
DX: E87.5 Hyperkalemia (principal)
CPT/HCPCS: 36415; 84132

== ENCOUNTER → 2024-02-14 04:00 | Outpatient (REF) | payer MEDICARE, MEDICAID, SELFPAY ==
[2024-02-14 08:42] LABS: Hemoglobin 10.2 g/dL (12.0-15.0); Mean Corp Hgb Conc 31.9 g/dL (32-36); Mean Corpuscular Hgb 30.6 pg (27.0-32.0); Mean Corpuscular Volume 96.1 fL (81-99); Mean Platelet Vol. 10.6 fl (6.2-12.0); Platelet Count 176 K/mm3 (150-450); RBC Distribution Width CV 16.2 % (11.6-14.6); RBC Distribution Width SD 57.2 fl (35.1-43.9); Red Blood Count 3.33 M/mm3 (4.2-5.4); White Blood Count 6.2 K/mm3 (4.4-11.0)
[2024-02-14 10:28] LABS: ALB/GLOB Ratio 0.5 RATIO (0.9-2.4); AST(SGOT) 38 U/L (15-37); Alanine Aminotransfer ALT/SGPT 22 U/L (13-56); Albumin, Serum 2.5 g/dL (3.2-5.0); Alkaline Phosphatase 79 U/L (45-117); Anion Gap 10 (5-15); BUN 35 mg/dL (7-18); BUN/Creat Ratio 22.3 RATIO (10-20); Calcium,Total 8.4 mg/dL (8.5-10.1); Chloride 107 mmol/L (98-107); Creatinine, Serum 1.57 mg/dL (0.55-1.02); EST Glomerular Filtration Rate 34 mL/min (>60); Est Glom Filt Rate - Afr Amer 42 mL/min (>60); Globulin 5.2 g/dL (2.2-4.2); Glucose 249 mg/dL (74-106); Potassium 4.8 mmol/L (3.5-5.1); Protein, Total 7.7 g/dL (6.4-8.2); Sodium Level 137 mmol/L (136-145)
== END ==
LOC: OLS.ACH 04:00
PROVIDERS: PCP Internal Medicine; Referring Provider Internal Medicine; Visit Provider Internal Medicine
DX: E87.5 Hyperkalemia (principal); E11.42 Type 2 diabetes mellitus with diabetic polyneuropathy; I12.9 Hypertensive chronic kidney disease with stage 1 through stage 4 chronic kidney disease, or unspecified chronic kidney disease; N18.9 Chronic kidney disease, unspecified
CPT/HCPCS: 36415; 80053; 85027

== ENCOUNTER → 2024-02-22 06:45 | Outpatient (REF) | payer MEDICARE, MEDICAID, SELFPAY ==
[2024-02-22 09:30] LABS: Anion Gap 5 (5-15); BUN 23 mg/dL (7-18); Calcium,Total 9.5 mg/dL (8.5-10.1); Chloride 106 mmol/L (98-107); Creatinine, Serum 1.44 mg/dL (0.55-1.02); EST Glomerular Filtration Rate 38 mL/min (>60); Est Glom Filt Rate - Afr Amer 46 mL/min (>60); Glucose 218 mg/dL (74-106); Potassium 4.9 mmol/L (3.5-5.1); Sodium Level 136 mmol/L (136-145)
== END ==
LOC: OLS.ACH 06:45
PROVIDERS: PCP Internal Medicine; Visit Provider Internal Medicine
DX: E87.5 Hyperkalemia (principal); R60.9 Edema, unspecified
CPT/HCPCS: 36415; 80048

== ENCOUNTER → 2024-02-28 04:00 | Outpatient (REF) | payer MEDICARE, MEDICAID, SELFPAY ==
[2024-02-28 08:23] LABS: Anion Gap 4 (5-15); BUN 32 mg/dL (7-18); Calcium,Total 8.9 mg/dL (8.5-10.1); Chloride 110 mmol/L (98-107); Creatinine, Serum 1.23 mg/dL (0.55-1.02); EST Glomerular Filtration Rate 46 mL/min (>60); Est Glom Filt Rate - Afr Amer 55 mL/min (>60); Glucose 230 mg/dL (74-106); Sodium Level 139 mmol/L (136-145)
[2024-02-28 08:27] LABS: Hemoglobin A1c 7.3 % (3.8-5.6)
== END ==
LOC: OLS.ACH 04:00
PROVIDERS: PCP Internal Medicine; Visit Provider Internal Medicine
DX: G40.219 Localization-related (focal) (partial) symptomatic epilepsy and epileptic syndromes with complex partial seizures, intractable, without status epilepticus (principal); R60.9 Edema, unspecified; E78.5 Hyperlipidemia, unspecified; E11.42 Type 2 diabetes mellitus with diabetic polyneuropathy
CPT/HCPCS: 36415; 80048; 83036

== ENCOUNTER → 2024-03-14 | Outpatient (REF) | payer MEDICARE, MEDICAID, SELFPAY ==
[2024-03-14 09:43] LABS: Hemoglobin 9.7 g/dL (12.0-15.0); Mean Corp Hgb Conc 30.3 g/dL (32-36); Mean Corpuscular Hgb 28.3 pg (27.0-32.0); Mean Corpuscular Volume 93.3 fL (81-99); Mean Platelet Vol. 11.1 fl (6.2-12.0); Platelet Count 176 K/mm3 (150-450); RBC Distribution Width CV 14.9 % (11.6-14.6); RBC Distribution Width SD 50.8 fl (35.1-43.9); Red Blood Count 3.43 M/mm3 (4.2-5.4); White Blood Count 6.6 K/mm3 (4.4-11.0)
[2024-03-14 10:14] LABS: Anion Gap 6 (5-15); BUN 35 mg/dL (7-18); Calcium,Total 8.5 mg/dL (8.5-10.1); Chloride 108 mmol/L (98-107); EST Glomerular Filtration Rate 39 mL/min (>60); Est Glom Filt Rate - Afr Amer 48 mL/min (>60); Glucose 229 mg/dL (74-106); Potassium 4.9 mmol/L (3.5-5.1); Sodium Level 137 mmol/L (136-145)
== END ==
LOC: OLS.ACH 05:00
PROVIDERS: PCP Internal Medicine; Referring Provider Internal Medicine; Visit Provider Internal Medicine
DX: I12.9 Hypertensive chronic kidney disease with stage 1 through stage 4 chronic kidney disease, or unspecified chronic kidney disease (principal); E11.42 Type 2 diabetes mellitus with diabetic polyneuropathy; N18.9 Chronic kidney disease, unspecified
CPT/HCPCS: 36415; 80048; 85027

== ENCOUNTER → 2024-03-27 | Outpatient (REF) | payer MEDICARE, MEDICAID, SELFPAY ==
[2024-03-27 09:34] LABS: Hematocrit 32.4 % (37-47); Hemoglobin 10.3 g/dL (12.0-15.0)
== END ==
LOC: OLS.ACH 05:00
PROVIDERS: PCP Internal Medicine; Visit Provider Internal Medicine
DX: D50.0 Iron deficiency anemia secondary to blood loss (chronic) (principal)
CPT/HCPCS: 36415; 85014; 85018

== ENCOUNTER → 2024-04-04 | Outpatient (REF) | payer MEDICARE, MEDICAID, SELFPAY ==
[2024-04-04 10:39] LABS: Ferritin 106 ng/mL (8-252); Iron 61 ug/dL (50-170); Iron Binding Capacity,Total 282 ug/dL (250-450)
== END ==
LOC: OLS.ACH 05:00
PROVIDERS: PCP Internal Medicine; Visit Provider Internal Medicine
DX: D50.9 Iron deficiency anemia, unspecified (principal)
CPT/HCPCS: 36415; 82728; 83540; 83550

== ENCOUNTER → 2024-04-12 05:00 | Outpatient (REF) | payer MEDICARE, MEDICAID, SELFPAY ==
[2024-04-12 08:18] LABS: Hematocrit 32.5 % (37-47); Hemoglobin 9.8 g/dL (12.0-15.0); Mean Corp Hgb Conc 30.2 g/dL (32-36); Mean Corpuscular Hgb 28.7 pg (27.0-32.0); Mean Platelet Vol. 11.5 fl (6.2-12.0); Platelet Count 160 K/mm3 (150-450); RBC Distribution Width CV 14.6 % (11.6-14.6); Red Blood Count 3.42 M/mm3 (4.2-5.4); White Blood Count 5.9 K/mm3 (4.4-11.0)
[2024-04-12 08:44] LABS: Anion Gap 6 (5-15); BUN 38 mg/dL (7-18); BUN/Creat Ratio 24.5 RATIO (10-20); Calcium,Total 8.8 mg/dL (8.5-10.1); Chloride 107 mmol/L (98-107); Creatinine, Serum 1.55 mg/dL (0.55-1.02); EST Glomerular Filtration Rate 35 mL/min (>60); Est Glom Filt Rate - Afr Amer 42 mL/min (>60); Glucose 200 mg/dL (74-106); Potassium 4.9 mmol/L (3.5-5.1); Sodium Level 137 mmol/L (136-145)
== END ==
LOC: OLS.ACH 05:00
PROVIDERS: PCP Internal Medicine; Visit Provider Internal Medicine
DX: N18.9 Chronic kidney disease, unspecified (principal); E87.5 Hyperkalemia; D50.9 Iron deficiency anemia, unspecified; R60.9 Edema, unspecified
CPT/HCPCS: 36415; 80048; 85027

== ENCOUNTER → 2024-05-22 | Outpatient (REF) | payer MEDICARE, MEDICAID, SELFPAY ==
[2024-05-22 08:26] LABS: Hemoglobin A1c 7.8 % (3.8-5.6)
== END ==
LOC: OLS.ACH 05:00
PROVIDERS: PCP Internal Medicine; Visit Provider Internal Medicine
DX: E11.42 Type 2 diabetes mellitus with diabetic polyneuropathy (principal)
CPT/HCPCS: 36415; 83036

== ENCOUNTER → 2024-05-29 | Outpatient (REF) | payer MEDICARE, MEDICAID, SELFPAY ==
[2024-05-29 08:02] LABS: Hematocrit 32.9 % (37-47); Hemoglobin 10.1 g/dL (12.0-15.0); Mean Corp Hgb Conc 30.7 g/dL (32-36); Mean Corpuscular Hgb 28.9 pg (27.0-32.0); Mean Platelet Vol. 11.2 fl (6.2-12.0); Platelet Count 166 K/mm3 (150-450); RBC Distribution Width CV 14.5 % (11.6-14.6); RBC Distribution Width SD 49.6 fl (35.1-43.9)
[2024-05-29 08:25] LABS: ALB/GLOB Ratio 0.5 RATIO (0.9-2.4); AST(SGOT) 21 U/L (15-37); Alanine Aminotransfer ALT/SGPT < 6 U/L (13-56); Albumin, Serum 2.4 g/dL (3.2-5.0); Alkaline Phosphatase 69 U/L (45-117); Anion Gap 8 (5-15); BUN 37 mg/dL (7-18); BUN/Creat Ratio 21.5 RATIO (10-20); Calcium,Total 8.8 mg/dL (8.5-10.1); Chloride 107 mmol/L (98-107); Creatinine, Serum 1.72 mg/dL (0.55-1.02); EST Glomerular Filtration Rate 31 mL/min (>60); Est Glom Filt Rate - Afr Amer 38 mL/min (>60); Globulin 4.7 g/dL (2.2-4.2); Glucose 203 mg/dL (74-106); Potassium 4.8 mmol/L (3.5-5.1); Protein, Total 7.1 g/dL (6.4-8.2); Sodium Level 138 mmol/L (136-145)
== END ==
LOC: OLS.ACH 04:00
PROVIDERS: PCP Internal Medicine; Visit Provider Internal Medicine
DX: G40.219 Localization-related (focal) (partial) symptomatic epilepsy and epileptic syndromes with complex partial seizures, intractable, without status epilepticus (principal)
CPT/HCPCS: 36415; 80053; 85027

== ENCOUNTER → 2024-06-12 | Outpatient (REF) | payer MEDICARE, MEDICAID, SELFPAY | LOC: OLS.ACH 05:20 | PROVIDERS: PCP Internal Medicine; Visit Provider Internal Medicine | DX: G40.219 Localization-related (focal) (partial) symptomatic epilepsy and epileptic syndromes with complex partial seizures, intractable, without status epilepticus (principal) ==

== ENCOUNTER → 2024-07-05 | Outpatient (REF) | payer MEDICARE, MEDICAID, SELFPAY ==
[2024-07-05 08:07] LABS: Anion Gap 3 (5-15); BUN 32 mg/dL (7-18); BUN/Creat Ratio 20.9 RATIO (10-20); Calcium,Total 8.8 mg/dL (8.5-10.1); Chloride 112 mmol/L (98-107); Creatinine, Serum 1.53 mg/dL (0.55-1.02); EST Glomerular Filtration Rate 35 mL/min (>60); Est Glom Filt Rate - Afr Amer 43 mL/min (>60); Glucose 169 mg/dL (74-106); Potassium 5.8 mmol/L (3.5-5.1); Sodium Level 140 mmol/L (136-145)
== END ==
LOC: OLS.ACH 05:00
PROVIDERS: PCP Internal Medicine; Visit Provider Internal Medicine
DX: R63.5 Abnormal weight gain (principal)
CPT/HCPCS: 36415; 80048

== ENCOUNTER → 2024-07-06 | Outpatient (REF) | payer MEDICARE, MEDICAID, SELFPAY ==
[2024-07-06 08:28] LABS: Anion Gap 4 (5-15); BUN 26 mg/dL (7-18); BUN/Creat Ratio 17.9 RATIO (10-20); Calcium,Total 8.5 mg/dL (8.5-10.1); Chloride 109 mmol/L (98-107); Creatinine, Serum 1.45 mg/dL (0.55-1.02); EST Glomerular Filtration Rate 38 mL/min (>60); Est Glom Filt Rate - Afr Amer 46 mL/min (>60); Glucose 136 mg/dL (74-106); Sodium Level 138 mmol/L (136-145)
[2024-07-06 09:41] LABS: Glucose, Dipstick Normal (Normal); Ketone-Dipstick Negative (Negative); Leukocyte Esterase-Dipstick 100 /ul (Negative); Nitrite-Dipstick Negative (Negative); Occult Blood-Urine 250 /ul (Negative); Protein-Dipstick 500 mg/dl (Negative); Urine Bilirubin Dipstick Negative (Negative); Urine Clarity Cloudy (Clear); Urine Urobilinogen Normal (Normal)
[2024-07-06 09:42] LABS: Color, Urine SEE COMMENT BELOW (Yellow)
[2024-07-06 09:47] LABS: Bacteria 0 SEEN /hpf (None Seen); Mucous, Urine 0 SEEN /hpf (<or=2+); Squamous Epithelial Cells - UA 0 SEEN /hpf (5-10)
[2024-07-06 09:49] LABS: Red Blood Cells-Urine > 100 SEEN /hpf (0-5); White Blood Cells 5-10 SEEN /hpf (0-5)
== END ==
LOC: OLS.ACH 05:00
PROVIDERS: PCP Internal Medicine; Visit Provider Internal Medicine
DX: E87.5 Hyperkalemia (principal); Z87.440 Personal history of urinary (tract) infections; R39.9 Unspecified symptoms and signs involving the genitourinary system
CPT/HCPCS: 36415; 80048; 81001; 87086; 87088

== ENCOUNTER 2024-07-10 20:52 | Emergency (ER) | payer MEDICARE, MEDICAID, SELFPAY ==
[2024-07-10 20:55] VITALS: BP 173/79; PULSE 60; RESP 16; TEMP 36.6; O2SAT 94; BMI 36.2
--- NOTE | 2024-07-10 21:22 | CT_ITS ---
STUDY: CT ABDOMEN AND PELVIS WITHOUT CONTRAST REASON FOR EXAM: Female, 74 years old. Postmenopausal bleeding RADIATION DOSAGE (If Supplied By Facility): CTDIvol = ( 16.61 ) mGy, DLP = ( 892.02 ) mGycm TECHNIQUE: Transaxial images were obtained from the dome of the diaphragm to the symphysis pubis without oral contrast, and without intravenous contrast. Sagittal and coronal images were reconstructed. Individualized dose optimization techniques were used for this CT. COMPARISON: None. FINDINGS: Mild bibasilar chronic interstitial thickening.. Heart is mildly enlarged There is mild prominence of the liver specifically left lobe. Bile ducts are not dilated and there is no hepatic masses.. Contracted thick-walled gallbladder without calcified stones likely physiologic however if concern for gallbladder disease ultrasound recommended. Spleen is upper normal in size. Normal pancreas. Normal bilateral adrenal glands. There is multifocal cortical scarring of both kidneys likely due to chronic inflammatory disease. . Tiny nonobstructing renal calculi. Small bilateral renal cyst which will not require additional imaging Normal visualized stomach. Mild ileus with diffuse fecal retention in the kidney.. Appendix not visualized status post appendectomy Mild atherosclerotic change of the aorta without evidence for aneurysm. Normal inferior vena cava. Normal retroperitoneum. Normal urinary bladder. Uterus not visualized consistent with hysterectomy Normal abdominal wall. Lumbar spine demonstrates degenerative changes. CT/Abdomen/Pelvis without Cont IMPRESSION: Findings consistent with chronic inflammatory disease of the kidneys. Bilateral nephrolithiasis without evidence for obstruction or ureteral calculus at this time Mild ileus with diffuse fecal retention in the colon. Postop change status post appendectomy and hysterectomy Other findings as above Electronically Signed: Wenceslao Recio MD at 22:53 EST ,
[2024-07-10 21:39] LABS: Absolute Lymphocyte Count 2.63 X10^3/uL (0.83-4.51); Absolute Neutrophil Count 3.1 X10^3/uL (2.0-7.7); Basophil# 0.05 X10^3/uL; Basophil% 0.7 % (0-1); Eosinophil# 0.18 X10^3/uL; Eosinophils% 2.7 % (0-5); Hematocrit 32.8 % (37-47); Hemoglobin 10.7 g/dL (12.0-15.0); Lymphocyte # 2.63 X10^3/ul (0.83-4.51); Lymphocyte % 39.1 % (19-41); Mean Corp Hgb Conc 32.6 g/dL (32-36); Mean Corpuscular Hgb 30.2 pg (27.0-32.0); Mean Corpuscular Volume 92.7 fL (81-99); Mean Platelet Vol. 10.7 fl (6.2-12.0); Monocyte# 0.66 X10^3/uL; Monocyte% 9.8 % (0-10); NRBC Flagged by Analyzer 0 % (0-5); Neutrophil % 46.2 % (47-70); Platelet Count 192 K/mm3 (150-450); RBC Distribution Width CV 14.7 % (11.6-14.6); RBC Distribution Width SD 49.9 fl (35.1-43.9); Red Blood Count 3.54 M/mm3 (4.2-5.4); White Blood Count 6.7 K/mm3 (4.4-11.0)
[2024-07-10 21:48] LABS: Bacteria 0 SEEN /hpf (None Seen); Mucous, Urine 0 SEEN /hpf (<or=2+)
[2024-07-10 21:49] LABS: Color, Urine Yellow (Yellow); Glucose, Dipstick 250 mg/dl (Normal); Ketone-Dipstick Negative (Negative); Leukocyte Esterase-Dipstick 100 /ul (Negative); Nitrite-Dipstick Negative (Negative); Occult Blood-Urine 250 /ul (Negative); Protein-Dipstick 500 mg/dl (Negative); Urine Bilirubin Dipstick Negative (Negative); Urine Clarity Clear (Clear); Urine Urobilinogen Normal (Normal)
[2024-07-10 21:58] LABS: Partial Thromboplast Time 32.5 Seconds (24.1-36.2); Prothrombin Time (Protime)PT. 12.7 SECONDS (11.7-14.9)
[2024-07-10 22:02] LABS: Anion Gap 8 (5-15); BUN 36 mg/dL (7-18); BUN/Creat Ratio 18.1 RATIO (10-20); Calcium,Total 8.2 mg/dL (8.5-10.1); Chloride 106 mmol/L (98-107); Creatinine, Serum 1.99 mg/dL (0.55-1.02); EST Glomerular Filtration Rate 26 mL/min (>60); Est Glom Filt Rate - Afr Amer 32 mL/min (>60); Estimated Creatinine Clearance 26.62 ml/min; Glucose 312 mg/dL (74-106); Potassium 5.4 mmol/L (3.5-5.1); Sodium Level 138 mmol/L (136-145)
[2024-07-10 22:05] LABS: Calcium Oxalate Crystals Ur 1+ /hpf (<or=2+); Red Blood Cells-Urine 0-5 SEEN /hpf (0-5); Squamous Epithelial Cells - UA 0-5 SEEN /hpf (5-10); White Blood Cells 5-10 SEEN /hpf (0-5)
--- NOTE | 2024-07-10 22:16 | ED.VIS.FEGU ---
HPI HPI - Female History of Present Illness Chief Complaint: Vag Bleeding Informant: patient Bleeding Issue: Positive for Vaginal bleeding and Passing clots Onset: Today Associated Symptoms Associated Symptoms: Negative for Dysuria or Frequency Narrative Narrative: Patient presents with vaginal bleeding that was noticed today. Patient lives at extended-care facility. Patient was noted to have some vaginal bleeding today then was passing some clots. Patient denies any fevers or chills. Patient denies any abdominal pain or cramping. Patient denies any urinary complaints. Patient denies any nausea or vomiting. Patient denies any diarrhea or constipation. Patient is postmenopausal. [facility] Medical History Chronic UTI S/P extracorporeal shock wave therapy Bladder disease Failure to thrive in adult Glaucoma TBI (traumatic brain injury) Kidney stone Lives in assisted Insulin dependent diabetes mellitus Uses wheelchair Walker as ambulation aid Stroke/cerebrovascular accident Syncope Parkinson's disease Dietary restriction Heartburn History of edema History of echocardiogram Cardiology follow-up encounter Anxiety Non-smoker Kidney disease Atrial fibrillation Pacemaker Hypertension Seizures Obesity Type 2 diabetes mellitus Hypertriglyceridemia Chronic kidney disease (CKD) Paroxysmal atrial fibrillation Essential hypertension Dysuria Septic shock Junctional rhythm Tachy-maurizio syndrome Vaginal bleeding Breakthrough seizure HLD (hyperlipidemia) Hypertensive emergency without congestive heart failure Seizure Home Medications ?Medication ?Instructions ?Recorded ?Last Taken ?Type sitagliptin phosphate 50 mg tablet 100 mg PO DAILY DIABETES 11/19/21 01/20/24 History (Januvia) allopurinol 100 mg tablet 100 mg PO DAILY GOUT 12/10/22 01/20/24 History aspirin 81 mg tablet,delayed 81 mg PO DAILY HEART HEALTH 12/10/22 01/20/24 History release (Adult Low Dose Aspirin) alendronate 70 mg tablet 70 mg PO BONE HEALTH 06/15/23 01/15/24 History carbidopa 10 mg-levodopa 100 mg 1 tab PO TID PARKINSONS 06/15/23 01/20/24 History tablet citalopram 10 mg tablet 10 mg PO DAILY DEPRESSION 06/15/23 01/20/24 History estradiol 0.01% (0.1 mg/gram) 1 appful vaginal PRECIADO HORMONES 06/15/23 01/16/24 History vaginal cream insulin glargine 100 unit/mL (3 24 unit subcut QHS DIABETES 06/15/23 01/19/24 History mL) subcutaneous pen (Lantus Solostar U-100 Insulin) lacosamide 150 mg tablet 150 mg PO BID EPILEPSY 06/15/23 01/20/24 History clobazam 10 mg tablet 5 mg PO DAILY EPILEPSY 10/12/23 01/19/24 History ferrous sulfate 325 mg (65 mg 325 mg PO QODAY ANEMIA 10/12/23 01/20/24 History iron) tablet,delayed release hydralazine 10 mg tablet 10 mg PO TID BLOOD PRESSURE 10/12/23 01/20/24 History calcium carbonate (Calcium 500) 500 mg PO Q4H PRN GERD 12/14/23 Unknown History insulin lispro 100 unit/mL See Protocol subcut BIDCM DIABETES 12/14/23 01/20/24 History subcutaneous pen pregabalin 150 mg capsule 150 mg PO BID EPILEPSY 12/14/23 01/20/24 History amlodipine 5 mg tablet 5 mg PO QHS BLOOD PRESSURE 12/18/23 01/19/24 History mirtazapine 30 mg tablet 30 mg PO QHS DEPRESSION 12/18/23 01/19/24 History ondansetron HCl 8 mg tablet 8 mg PO Q8H PRN NAUSEA 12/18/23 Unknown History ascorbic acid (vitamin C) 500 mg 500 mg PO DAILY SUPPLEMENT 01/20/24 01/20/24 History tablet cranberry 500 mg capsule 500 mg PO TID UTI PREVENTION 01/20/24 01/20/24 History insulin lispro 100 unit/mL 5 unit subcut DINNER DIABETES 01/20/24 01/19/24 History subcutaneous pen insulin lispro 100 unit/mL 7 unit subcut BID DIABETES 01/20/24 01/20/24 History subcutaneous pen metformin 500 mg tablet 500 mg PO DAILY DIABETES 01/20/24 01/20/24 History acetaminophen 500 mg tablet 1,000 mg (2 x 500 mg) PO Q8H PRN 01/23/24 01/20/24 Rx PRN PAIN/FEVER 30 days #0 tabs sennosides 8.6 mg-docusate sodium 2 tab PO BID #0 tabs 01/23/24 Unknown Rx 50 mg tablet (Stool Softener-Stimulant Laxative) Allergy/AdvReac Type Severity Reaction Status Date / Time amoxicillin (From Augmentin) Allergy Rash Verified 07/10/24 20:54 clavulanic acid (From Allergy Rash Verified 07/10/24 20:54 Augmentin) escitalopram (From Lexapro) Allergy Rash Verified 07/10/24 20:54 shellfish derived Allergy Unknown Verified 07/10/24 20:54 hydroxychloroquine (From AdvReac Severe Unknown Verified 07/10/24 20:54 Plaquenil) house dust AdvReac NEEDS Verified 07/10/24 20:54 FOLLOW-UP perfume AdvReac Unknown Verified 07/10/24 20:54 pineapple AdvReac Rash Verified 07/10/24 20:54 quinine AdvReac Unknown Verified 07/10/24 20:54 strawberry AdvReac Rash Verified 07/10/24 20:54 Sulfa (Sulfonamide AdvReac Unknown Verified 07/10/24 20:54 Antibiotics) Family History Brother Heart disease Hx CABG Hypertension Diabetes Mother Hypertension Surgical History History of permanent cardiac pacemaker placement (11/15/17) History of breast surgery History of hysterectomy Social History household members: spouse Smoking Status: Never smoker alcohol intake: never substance use type: does not use caffeine: No what type of physical activity do you participate in: none seatbelt use: always do you feel safe at home: Yes ROS ROS ED Constitutional Constitutional ED: Denies chills or fever(s) Eyes Eyes: Denies blurry vision or change in vision ENT ENT ED: Denies rhinorrhea or sore throat Cardiovascular Cardiovascular: Denies chest pain or palpitations Respiratory/Chest Respiratory/Chest: Denies cough or dyspnea Gastrointestinal Gastrointestinal: Denies nausea or vomiting Genitourinary Genitourinary ED: Denies dysuria or hematuria Musculoskeletal Musculoskeletal: Denies back pain or neck pain Integumentary Denies abscess or rash Neurologic Neurologic: Reports headache(s); Denies weakness Allergic/Immunologic Allergic/Immunologic ED: Denies mouth swelling or urticaria EXAM Physical Exam Const Vital Signs: 07/10/24 20:55 Temperature 97.8 F Temperature Source Oral Pulse Rate 60 Respiratory Rate 16 Blood Pressure 173/79 H Blood Pressure Mean 110 Pulse Ox 94 Oxygen Delivery Method Room Air Positive well nourished and well developed General Appearance ED: well developed and NAD HEENT Reports moist mucous membranes Neck supple and no JVD Resp normal respiratory effort and clear to auscultation bilaterally Cardio regular rate and regular rhythm GI soft to palpation, non-tender and non-distended Narrative: Pelvic exam showed minimal amount of blood in the vaginal vault. There are no masses visualized. Neuro CN's II-XII intact bilaterally and no sensory deficits noted Sensorium / Orientation: alert Motor Exam: strength 5/5 throughout Psych mental status grossly normal MDM MDM MDM Narrative Medical decision making narrative: Differential diagnosis includes uterine fibroid, uterine cancer, pelvic mass, rectal bleeding, hematuria, and urinary tract infection. CBC will be obtained to assess for leukocytosis and anemia. Basic metabolic profile will be obtained to assess for electrolyte abnormality and renal function. PT with INR and PTT will be obtained to assess for coagulopathy. Urinalysis will be obtained to assess for urinary tract infection and hematuria. CT scan of the abdomen pelvis will be obtained to assess for pelvic mass and uterine fibroid. Lab Data Attestation: I reviewed the patient's lab results. Lab results narrative: CBC was reviewed. There is a slight anemia with a hemoglobin of 10.7 hematocrit 32.8. Basic metabolic profile showed a mild hyperkalemia 5.4. BUN was 36 and creatinine was 1.99. Urinalysis shows leukocyte esterase of 100 with 5-10 white blood cells. There is 0-5 red blood cells. Labs: Laboratory Results - last 24 hr 07/10/24 07/10/24 21:05 21:43 WBC 6.7 RBC 3.54 L Hgb 10.7 L Hct 32.8 L MCV 92.7 MCH 30.2 MCHC 32.6 RDW Std Deviation 49.9 H RDW Coeff of Ernesto 14.7 H Plt Count 192 MPV 10.7 Immature Gran % (Auto) 1.500 H Neut % (Auto) 46.2 L Lymph % (Auto) 39.1 [place] % (Auto) 9.8 Eos % (Auto) 2.7 Baso % (Auto) 0.7 Absolute Neuts (auto) 3.1 Absolute Lymphs (auto) 2.63 Nucleated RBC % 0 PT 12.7 INR 1.0 APTT 32.5 Sodium 138 Potassium 5.4 H Chloride 106 Carbon Dioxide 24.0 Anion Gap 8 BUN 36 H Creatinine 1.99 H Estim Creat Clear Calc 26.62 Est GFR (MDRD) Af Amer 32 L Est GFR (MDRD) Non-Af 26 L BUN/Creatinine Ratio 18.1 Glucose 312 H Calcium 8.2 L Urine Color Yellow Urine Clarity Clear Urine pH 7.0 Ur Specific [place] 1.010 Urine Protein 500 H Urine Glucose (UA) 250 H Urine Ketones Negative Urine Occult Blood 250 H Urine Nitrite Negative Urine Bilirubin Negative Urine Urobilinogen Normal Ur Leukocyte Esterase 100 H Urine RBC 0-5 SEEN Urine WBC 5-10 SEEN Ur Squamous Epith Cells 0-5 SEEN Calcium Oxalate Crystal 1+ Urine Bacteria 0 SEEN Urine Mucus 0 SEEN Radiography Diagnostic Testing: Clinical Impression(s) from Imaging Studies Abdomen/Pelvis CT 07/10/24 21:22 IMPRESSION: Findings consistent with chronic inflammatory disease of the kidneys. Bilateral nephrolithiasis without evidence for obstruction or ureteral calculus at this time Mild ileus with diffuse fecal retention in the colon. Postop change status post appendectomy and hysterectomy Other findings as above Electronically Signed: Wenceslao Recio MD at 22:53 EST Reading Location ID and State: [facility] / [place] Tel , Service support , CT scan of the abdomen pelvis was obtained. There is findings consistent with chronic inflammatory disease of the kidneys. There is bilateral nephrolithiasis but no obstruction or ureteral calculus. There is fecal retention in the colon. There are no other acute findings noted. This was interpreted by the radiologist and was also independently reviewed by myself. 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 Patient was given a dose of calcium gluconate and insulin due to her hyperkalemia and hyperglycemia. Case was discussed with Dr. Hinton who is on-call for unassigned SENIOR INSTRUCTOR. He recommended having the patient follow-up as an outpatient. He did not recommend any further treatment. Patient will be discharged back to the extended care facility. Patient understood and was agreeable with the plan. All questions were answered. Discharge Plan Triage Chief Complaint: Vag Bleeding ED Provider: Karel Schultz Dx/Rx/DC Orders Clinical Impression: Abnormal vaginal bleeding in postmenopausal patient, Chronic kidney disease, stage 3a, Hyperkalemia Prescriptions: No Action allopurinol 100 mg tablet 100 mg PO DAILY aspirin [Adult Low Dose Aspirin] 81 mg tablet,delayed release (DR/EC) 81 mg PO DAILY Januvia 50 mg Tablet 100 mg PO DAILY clobazam 10 mg tablet 5 mg PO DAILY ferrous sulfate 325 mg (65 mg iron) tablet,delayed release (DR/EC) 325 mg PO QODAY hydralazine 10 mg tablet 10 mg PO TID alendronate 70 mg tablet 70 mg PO SA carbidopa-levodopa 10-100 mg tablet 1 tab PO TID citalopram 10 mg tablet 10 mg PO DAILY estradiol 0.01 % (0.1 mg/gram) cream 1 appful VAGINAL PRECIADO insulin glargine [Lantus Solostar U-100 Insulin] 100 unit/mL (3 mL) insulin pen 24 unit SUBCUT QHS lacosamide 150 mg tablet 150 mg PO BID insulin lispro 100 unit/mL insulin pen See Protocol subcut BIDCM Protocol: 6. Sliding Scale Insulin Custom Condition: mg/dl range Dose/Route: Number of Units Condition: 151-200 Dose/Route: 1 Condition: 201-250 Dose/Route: 2 Condition: 251-300 Dose/Route: 3 Condition: 301-350 Dose/Route: 4 Condition: 351-400 Dose/Route: 5 Instruction: CALL IF >350 Protocol Text: Custom Sliding Scale Rx Instructions: CALL MD IF <50 OR > 350 pregabalin 150 mg capsule 150 mg PO BID calcium carbonate [Calcium 500] 500 mg calcium (1,250 mg) tablet,chewable 500 mg PO Q4H PRN (Reason: GERD) amlodipine 5 mg tablet 5 mg PO QHS mirtazapine 30 mg tablet 30 mg PO QHS ondansetron HCl 8 mg tablet 8 mg PO Q8H PRN (Reason: NAUSEA ) insulin lispro 100 unit/mL insulin pen 5 unit subcut DINNER Rx Instructions: INJECT 5 UNITS SUBCUTANEOUSLY ONE TIME A DAY FOR DM. HUMALOG. SUPPER DOSE. GIVE IN ADDITION TO SLIDING SCALE INSULIN. metformin 500 mg tablet 500 mg PO DAILY ascorbic acid (vitamin C) 500 mg tablet 500 mg PO DAILY insulin lispro 100 unit/mL insulin pen 7 unit subcut BID cranberry 500 mg capsule 500 mg PO TID sennosides-docusate sodium [Stool Softener-Stimulant Laxat] 8.6-50 mg Tablet 2 tab PO BID Qty: 0 0RF acetaminophen 500 mg tablet 1,000 mg PO Q8H PRN PRN (Reason: PAIN/FEVER) 30 Days Qty: 0 0RF Primary Care Provider: Hannah Riggs Referrals: Royal Ellis Sr., DO [Non-Staff] - 5-7 Days Hannah Riggs DO [Primary Care Provider] - 5-7 Days Print Language: Chinese Disposition Disposition: Correction Facility Discharge Location: [facility]
[2024-07-10 22:53] VITALS: BP 168/70; PULSE 60; RESP 18; O2SAT 94
[2024-07-11] VITALS: BP 160/64; PULSE 62; RESP 18; O2SAT 93
[2024-07-11 00:02] VITALS: BP 168/70; PULSE 60; RESP 18; TEMP 36.6; O2SAT 94
[2024-07-11] MEDS: Calcium Gluconate IV 3 GM in Syringe 1 EACH IV (00:04)
[2024-07-11] MEDS: Insulin Lispro 10 UNIT in Syringe 0 ML 6 UNIT IV (00:04)
[2024-07-11 02:00] VITALS: BP 188/75; PULSE 60; RESP 18; O2SAT 94
[2024-07-11 04:00] VITALS: BP 175/75; PULSE 62; RESP 20; O2SAT 95
--- NOTE | 2024-07-11 04:34 | ED.RN ---
Report called to Aleksandra CHAN from [facility] facility
== END 2024-07-11 04:34 | disposition skilled nursing facility (03) ==
PROVIDERS: Emergency Provider Emergency Medicine; PCP Internal Medicine; Visit Provider Emergency Medicine
DX: N93.9 Abnormal uterine and vaginal bleeding, unspecified (principal); G20.A1 Parkinson's disease without dyskinesia, without mention of fluctuations; I48.0 Paroxysmal atrial fibrillation; G40.909 Epilepsy, unspecified, not intractable, without status epilepticus; Z79.4 Long term (current) use of insulin; E11.22 Type 2 diabetes mellitus with diabetic chronic kidney disease; N18.31 Chronic kidney disease, stage 3a; E78.5 Hyperlipidemia, unspecified; I12.9 Hypertensive chronic kidney disease with stage 1 through stage 4 chronic kidney disease, or unspecified chronic kidney disease; Z78.0 Asymptomatic menopausal state; Z86.73 Personal history of transient ischemic attack (TIA), and cerebral infarction without residual deficits; Z79.899 Other long term (current) drug therapy; Z79.82 Long term (current) use of aspirin; Z79.84 Long term (current) use of oral hypoglycemic drugs; Z95.0 Presence of cardiac pacemaker; Z90.710 Acquired absence of both cervix and uterus
CPT/HCPCS: 74176; 80048; 81001; 85025; 85610; 85730; 96374; 96375; 99285; A4216; J0612

== ENCOUNTER → 2024-07-10 | Outpatient (REF) | payer MEDICARE, MEDICAID, SELFPAY ==
[2024-07-10 08:25] LABS: Potassium 5.1 mmol/L (3.5-5.1)
== END ==
LOC: OLS.ACH 05:00
PROVIDERS: PCP Internal Medicine; Visit Provider Internal Medicine
DX: E87.5 Hyperkalemia (principal)
CPT/HCPCS: 36415; 84132

== ENCOUNTER → 2024-07-13 | Outpatient (REF) | payer MEDICARE, MEDICAID, SELFPAY ==
[2024-07-13 08:49] LABS: Potassium 5.3 mmol/L (3.5-5.1)
== END ==
LOC: OLS.ACH 05:00
PROVIDERS: PCP Internal Medicine; Visit Provider Internal Medicine
DX: E87.5 Hyperkalemia (principal)
CPT/HCPCS: 36415; 84132

== ENCOUNTER → 2024-07-14 | Outpatient (REF) | payer SELFPAY ==
[2024-07-14 07:51] LABS: Potassium 5.1 mmol/L (3.5-5.1)
== END ==
LOC: OLS.ACH 05:00
PROVIDERS: PCP Internal Medicine; Visit Provider Internal Medicine
DX: E87.5 Hyperkalemia (principal)
CPT/HCPCS: 36415; 84132

== ENCOUNTER → 2024-07-26 05:00 | Outpatient (REF) | payer MEDICARE, MEDICAID, SELFPAY ==
[2024-07-26 07:55] LABS: Hematocrit 31.3 % (37-47); Hemoglobin 9.4 g/dL (12.0-15.0); Mean Corpuscular Hgb 28.1 pg (27.0-32.0); Mean Corpuscular Volume 93.7 fL (81-99); Mean Platelet Vol. 11.1 fl (6.2-12.0); Platelet Count 169 K/mm3 (150-450); RBC Distribution Width CV 14.7 % (11.6-14.6); Red Blood Count 3.34 M/mm3 (4.2-5.4)
[2024-07-26 08:16] LABS: ALB/GLOB Ratio 0.5 RATIO (0.9-2.4); AST(SGOT) 23 U/L (15-37); Alanine Aminotransfer ALT/SGPT < 6 U/L (13-56); Albumin, Serum 2.2 g/dL (3.2-5.0); Alkaline Phosphatase 76 U/L (45-117); Anion Gap 3 (5-15); BUN 31 mg/dL (7-18); BUN/Creat Ratio 18.2 RATIO (10-20); Calcium,Total 8.2 mg/dL (8.5-10.1); Chloride 110 mmol/L (98-107); EST Glomerular Filtration Rate 31 mL/min (>60); Est Glom Filt Rate - Afr Amer 38 mL/min (>60); Globulin 4.8 g/dL (2.2-4.2); Glucose 165 mg/dL (74-106); Potassium 4.8 mmol/L (3.5-5.1); Sodium Level 139 mmol/L (136-145)
== END ==
LOC: OLS.ACH 05:00
PROVIDERS: PCP Internal Medicine; Visit Provider Internal Medicine
DX: E87.5 Hyperkalemia (principal); R53.83 Other fatigue
CPT/HCPCS: 36415; 80053; 84443; 85027

== ENCOUNTER → 2024-07-31 | Outpatient (REF) | payer MEDICARE, MEDICAID, SELFPAY ==
[2024-07-31 08:26] LABS: Hematocrit 32.1 % (37-47); Hemoglobin 9.5 g/dL (12.0-15.0); Mean Corp Hgb Conc 29.6 g/dL (32-36); Mean Corpuscular Hgb 28.4 pg (27.0-32.0); Mean Corpuscular Volume 95.8 fL (81-99); Platelet Count 184 K/mm3 (150-450); RBC Distribution Width CV 14.9 % (11.6-14.6); RBC Distribution Width SD 52.2 fl (35.1-43.9); Red Blood Count 3.35 M/mm3 (4.2-5.4); White Blood Count 6.4 K/mm3 (4.4-11.0)
[2024-07-31 09:15] LABS: ALB/GLOB Ratio 0.5 RATIO (0.9-2.4); AST(SGOT) 22 U/L (15-37); Alanine Aminotransfer ALT/SGPT < 6 U/L (13-56); Albumin, Serum 2.5 g/dL (3.2-5.0); Alkaline Phosphatase 79 U/L (45-117); Anion Gap 4 (5-15); BUN 40 mg/dL (7-18); BUN/Creat Ratio 26.1 RATIO (10-20); Calcium,Total 9.2 mg/dL (8.5-10.1); Chloride 112 mmol/L (98-107); Creatinine, Serum 1.53 mg/dL (0.55-1.02); EST Glomerular Filtration Rate 35 mL/min (>60); Est Glom Filt Rate - Afr Amer 43 mL/min (>60); Globulin 4.8 g/dL (2.2-4.2); Glucose 186 mg/dL (74-106); Protein, Total 7.3 g/dL (6.4-8.2); Sodium Level 139 mmol/L (136-145)
== END ==
LOC: OLS.ACH 04:00
PROVIDERS: PCP Internal Medicine; Referring Provider Internal Medicine; Visit Provider Internal Medicine
DX: E11.42 Type 2 diabetes mellitus with diabetic polyneuropathy (principal)
CPT/HCPCS: 36415; 80053; 85027

== ENCOUNTER → 2024-08-02 05:25 | Outpatient (REF) | payer MEDICARE, MEDICAID, SELFPAY ==
[2024-08-02 08:23] LABS: Anion Gap 7 (5-15); BUN 36 mg/dL (7-18); BUN/Creat Ratio 22.6 RATIO (10-20); Calcium,Total 8.4 mg/dL (8.5-10.1); Chloride 114 mmol/L (98-107); Creatinine, Serum 1.59 mg/dL (0.55-1.02); EST Glomerular Filtration Rate 34 mL/min (>60); Est Glom Filt Rate - Afr Amer 41 mL/min (>60); Glucose 179 mg/dL (74-106); Potassium 5.1 mmol/L (3.5-5.1); Sodium Level 140 mmol/L (136-145)
== END ==
LOC: OLS.ACH 05:25
PROVIDERS: PCP Internal Medicine; Visit Provider Internal Medicine
DX: E87.5 Hyperkalemia (principal)
CPT/HCPCS: 36415; 80048

== ENCOUNTER → 2024-08-07 | Outpatient (REF) | payer MEDICARE, MEDICAID, SELFPAY ==
[2024-08-07 08:58] LABS: Hematocrit 32.7 % (37-47); Hemoglobin 9.9 g/dL (12.0-15.0); Mean Corp Hgb Conc 30.3 g/dL (32-36); Mean Corpuscular Volume 95.9 fL (81-99); Mean Platelet Vol. 11.3 fl (6.2-12.0); Platelet Count 176 K/mm3 (150-450); RBC Distribution Width CV 14.8 % (11.6-14.6); RBC Distribution Width SD 51.1 fl (35.1-43.9); Red Blood Count 3.41 M/mm3 (4.2-5.4)
[2024-08-07 09:20] LABS: ALB/GLOB Ratio 0.5 RATIO (0.9-2.4); AST(SGOT) 26 U/L (15-37); Alanine Aminotransfer ALT/SGPT 10 U/L (13-56); Albumin, Serum 2.4 g/dL (3.2-5.0); Alkaline Phosphatase 76 U/L (45-117); Anion Gap 4 (5-15); BUN 26 mg/dL (7-18); BUN/Creat Ratio 16.9 RATIO (10-20); Calcium,Total 8.6 mg/dL (8.5-10.1); Chloride 113 mmol/L (98-107); Creatinine, Serum 1.54 mg/dL (0.55-1.02); EST Glomerular Filtration Rate 35 mL/min (>60); Est Glom Filt Rate - Afr Amer 43 mL/min (>60); Globulin 4.6 g/dL (2.2-4.2); Glucose 155 mg/dL (74-106); Potassium 4.9 mmol/L (3.5-5.1); Sodium Level 141 mmol/L (136-145)
== END ==
LOC: OLS.ACH 05:00
PROVIDERS: PCP Internal Medicine; Visit Provider Internal Medicine
DX: I69.398 Other sequelae of cerebral infarction (principal)
CPT/HCPCS: 36415; 80053; 85027

== ENCOUNTER → 2024-08-14 | Outpatient (REF) | payer MEDICARE, MEDICAID, SELFPAY ==
[2024-08-14 09:16] LABS: Hemoglobin A1c 7.1 % (3.8-5.6)
== END ==
LOC: OLS.ACH 05:00
PROVIDERS: PCP Internal Medicine; Visit Provider Internal Medicine
DX: E11.42 Type 2 diabetes mellitus with diabetic polyneuropathy (principal)
CPT/HCPCS: 36415; 83036

== ENCOUNTER → 2024-09-01 04:00 | Outpatient (REF) | payer MEDICARE, MEDICAID, SELFPAY ==
[2024-09-01 09:29] LABS: Mucous, Urine 0 SEEN /hpf (<or=2+); Red Blood Cells-Urine 0 SEEN /hpf (0-5)
[2024-09-01 10:09] LABS: Hemoglobin 9.8 g/dL (12.0-15.0); Mean Corp Hgb Conc 30.6 g/dL (32-36); Mean Corpuscular Hgb 28.7 pg (27.0-32.0); Mean Corpuscular Volume 93.8 fL (81-99); Mean Platelet Vol. 11.1 fl (6.2-12.0); Platelet Count 164 K/mm3 (150-450); RBC Distribution Width CV 14.8 % (11.6-14.6); RBC Distribution Width SD 50.5 fl (35.1-43.9); Red Blood Count 3.41 M/mm3 (4.2-5.4); White Blood Count 5.7 K/mm3 (4.4-11.0)
[2024-09-01 10:12] LABS: Color, Urine Yellow (Yellow); Glucose, Dipstick Normal (Normal); Ketone-Dipstick Negative (Negative); Leukocyte Esterase-Dipstick 100 /ul (Negative); Nitrite-Dipstick Positive (Negative); Occult Blood-Urine Negative /ul (Negative); Protein-Dipstick 500 mg/dl (Negative); Urine Bilirubin Dipstick Negative (Negative); Urine Clarity Sl. Cloudy (Clear); Urine Urobilinogen Normal (Normal); Urine pH 6.5 (5.0 - 8.0)
[2024-09-01 10:26] LABS: Anion Gap 5 (5-15); BUN 35 mg/dL (7-18); BUN/Creat Ratio 19.7 RATIO (10-20); Calcium,Total 8.8 mg/dL (8.5-10.1); Chloride 112 mmol/L (98-107); Creatinine, Serum 1.78 mg/dL (0.55-1.02); EST Glomerular Filtration Rate 30 mL/min (>60); Est Glom Filt Rate - Afr Amer 36 mL/min (>60); Glucose 149 mg/dL (74-106); Potassium 4.8 mmol/L (3.5-5.1); Sodium Level 138 mmol/L (136-145)
[2024-09-01 10:32] LABS: Bacteria 3+ /hpf (None Seen); Squamous Epithelial Cells - UA 0-5 SEEN /hpf (5-10); White Blood Cells 10-25 SEEN /hpf (0-5)
== END ==
LOC: OLS.ACH 04:00
PROVIDERS: PCP Internal Medicine; Referring Provider Internal Medicine; Visit Provider Internal Medicine
DX: I49.8 Other specified cardiac arrhythmias (principal); I48.0 Paroxysmal atrial fibrillation; I49.5 Sick sinus syndrome
CPT/HCPCS: 36415; 80048; 81001; 85027

== ENCOUNTER → 2024-09-12 | Outpatient (REF) | payer MEDICARE, MEDICAID, SELFPAY ==
[2024-09-12 08:23] LABS: Hematocrit 31.7 % (37-47); Hemoglobin 9.6 g/dL (12.0-15.0); Mean Corp Hgb Conc 30.3 g/dL (32-36); Mean Corpuscular Hgb 28.7 pg (27.0-32.0); Mean Corpuscular Volume 94.6 fL (81-99); Mean Platelet Vol. 11.4 fl (6.2-12.0); Platelet Count 151 K/mm3 (150-450); RBC Distribution Width CV 14.8 % (11.6-14.6); RBC Distribution Width SD 51.2 fl (35.1-43.9); Red Blood Count 3.35 M/mm3 (4.2-5.4); White Blood Count 5.4 K/mm3 (4.4-11.0)
[2024-09-12 08:37] LABS: Anion Gap 4 (5-15); BUN 42 mg/dL (7-18); BUN/Creat Ratio 19.6 RATIO (10-20); Calcium,Total 8.3 mg/dL (8.5-10.1); Chloride 111 mmol/L (98-107); Creatinine, Serum 2.14 mg/dL (0.55-1.02); EST Glomerular Filtration Rate 24 mL/min (>60); Est Glom Filt Rate - Afr Amer 29 mL/min (>60); Glucose 124 mg/dL (74-106); Potassium 5.5 mmol/L (3.5-5.1); Sodium Level 138 mmol/L (136-145)
== END ==
LOC: OLS.ACH 05:00
PROVIDERS: PCP Internal Medicine; Visit Provider Internal Medicine
DX: I12.9 Hypertensive chronic kidney disease with stage 1 through stage 4 chronic kidney disease, or unspecified chronic kidney disease (principal); N18.9 Chronic kidney disease, unspecified; E78.5 Hyperlipidemia, unspecified; R53.1 Weakness
CPT/HCPCS: 36415; 80048; 85027

== ENCOUNTER → 2024-09-13 | Outpatient (REF) | payer MEDICARE, MEDICAID, SELFPAY ==
[2024-09-13 07:13] LABS: Anion Gap 5 (5-15); BUN 38 mg/dL (7-18); BUN/Creat Ratio 20.1 RATIO (10-20); Calcium,Total 8.3 mg/dL (8.5-10.1); Chloride 112 mmol/L (98-107); Creatinine, Serum 1.89 mg/dL (0.55-1.02); EST Glomerular Filtration Rate 28 mL/min (>60); Est Glom Filt Rate - Afr Amer 34 mL/min (>60); Glucose 96 mg/dL (74-106); Sodium Level 140 mmol/L (136-145)
== END ==
LOC: OLS.ACH 05:00
PROVIDERS: PCP Internal Medicine; Visit Provider Internal Medicine
DX: G40.219 Localization-related (focal) (partial) symptomatic epilepsy and epileptic syndromes with complex partial seizures, intractable, without status epilepticus (principal)
CPT/HCPCS: 36415; 80048

== ENCOUNTER → 2024-09-14 | Outpatient (REF) | payer MEDICARE, MEDICAID, SELFPAY ==
[2024-09-14 08:38] LABS: Anion Gap 5 (5-15); BUN 32 mg/dL (7-18); BUN/Creat Ratio 20.1 RATIO (10-20); Calcium,Total 8.3 mg/dL (8.5-10.1); Chloride 109 mmol/L (98-107); Creatinine, Serum 1.59 mg/dL (0.55-1.02); EST Glomerular Filtration Rate 34 mL/min (>60); Est Glom Filt Rate - Afr Amer 41 mL/min (>60); Glucose 134 mg/dL (74-106); Potassium 4.8 mmol/L (3.5-5.1); Sodium Level 138 mmol/L (136-145)
== END ==
LOC: OLS.ACH 05:00
PROVIDERS: PCP Internal Medicine; Visit Provider Internal Medicine
DX: G40.219 Localization-related (focal) (partial) symptomatic epilepsy and epileptic syndromes with complex partial seizures, intractable, without status epilepticus (principal)
CPT/HCPCS: 36415; 80048

== ENCOUNTER 2024-09-25 03:41 | Inpatient (IN) | payer MEDICARE, MEDICAID, SELFPAY ==
[2024-09-25] VITALS (37 sets, daily range): BP systolic 93–151; BP diastolic 49–80; PULSE 72–96; RESP 8–34; TEMP 35.9–37.2; O2SAT 83–99; BMI 37.0; BMI 35.1
--- NOTE | 2024-09-25 03:59 | EDS_ITS ---
HPI History of Present Illness Chief Complaint: Shortness of Breath Informant: EMS Onset/Context/Timing Onset: Today Context: gradual Timing: Continuous Narrative Narrative: Patient presents with shortness of breath that was noticed tonight. Patient is nonverbal and is a poor informant. EMS reports patient was having some wheezing and crackles. EMS administered aerosols with minimal improvement. EMS reports patient has a history of sepsis. [facility] Medical History Parkinsons disease Pacemaker malfunction Chronic UTI S/P extracorporeal shock wave therapy Bladder disease Failure to thrive in adult Glaucoma TBI (traumatic brain injury) Kidney stone Lives in [place] [facility] Insulin dependent diabetes mellitus Uses wheelchair Walker as ambulation aid Stroke/cerebrovascular accident Syncope Parkinson's disease Dietary restriction Heartburn History of edema History of echocardiogram Cardiology follow-up encounter Anxiety Non-smoker Kidney disease Atrial fibrillation Pacemaker Hypertension Seizures Obesity Type 2 diabetes mellitus Hypertriglyceridemia Chronic kidney disease (CKD) Paroxysmal atrial fibrillation Essential hypertension Dysuria Septic shock Junctional rhythm Tachy-maurizio syndrome Vaginal bleeding Breakthrough seizure HLD (hyperlipidemia) Hypertensive emergency without congestive heart failure Seizure Home Medications ?Medication ?Instructions ?Recorded ?Last Taken ?Type sitagliptin phosphate 50 mg tablet 100 mg PO DAILY DIABETES 11/19/21 01/20/24 History (Januvia) allopurinol 100 mg tablet 100 mg PO DAILY GOUT 12/10/22 01/20/24 History aspirin 81 mg tablet,delayed 81 mg PO DAILY HEART HEALTH 12/10/22 01/20/24 History release (Adult Low Dose Aspirin) alendronate 70 mg tablet 70 mg PO BONE HEALTH 06/15/23 01/15/24 History carbidopa 10 mg-levodopa 100 mg 1 tab PO TID PARKINSONS 06/15/23 01/20/24 History tablet citalopram 10 mg tablet 10 mg PO DAILY DEPRESSION 06/15/23 01/20/24 History estradiol 0.01% (0.1 mg/gram) 1 appful vaginal PRECIADO HORMONES 06/15/23 01/16/24 History vaginal cream insulin glargine 100 unit/mL (3 24 unit subcut QHS DIABETES 06/15/23 01/19/24 History mL) subcutaneous pen (Lantus Solostar U-100 Insulin) lacosamide 150 mg tablet 150 mg PO BID EPILEPSY 06/15/23 01/20/24 History clobazam 10 mg tablet 5 mg PO DAILY EPILEPSY 10/12/23 01/19/24 History ferrous sulfate 325 mg (65 mg 325 mg PO QODAY ANEMIA 10/12/23 01/20/24 History iron) tablet,delayed release hydralazine 10 mg tablet 10 mg PO TID BLOOD PRESSURE 10/12/23 01/20/24 History calcium carbonate (Calcium 500) 500 mg PO Q4H PRN GERD 12/14/23 Unknown History insulin lispro 100 unit/mL See Protocol subcut BIDCM DIABETES 12/14/23 01/20/24 History subcutaneous pen pregabalin 150 mg capsule 150 mg PO BID EPILEPSY 12/14/23 01/20/24 History amlodipine 5 mg tablet 5 mg PO QHS BLOOD PRESSURE 12/18/23 01/19/24 History mirtazapine 30 mg tablet 30 mg PO QHS DEPRESSION 12/18/23 01/19/24 History ondansetron HCl 8 mg tablet 8 mg PO Q8H PRN NAUSEA 12/18/23 Unknown History ascorbic acid (vitamin C) 500 mg 500 mg PO DAILY SUPPLEMENT 01/20/24 01/20/24 History tablet cranberry 500 mg capsule 500 mg PO TID UTI PREVENTION 01/20/24 01/20/24 History insulin lispro 100 unit/mL 5 unit subcut DINNER DIABETES 01/20/24 01/19/24 History subcutaneous pen insulin lispro 100 unit/mL 7 unit subcut BID DIABETES 01/20/24 01/20/24 History subcutaneous pen metformin 500 mg tablet 500 mg PO DAILY DIABETES 01/20/24 01/20/24 History acetaminophen 500 mg tablet 1,000 mg (2 x 500 mg) PO Q8H PRN 01/23/24 01/20/24 Rx PRN PAIN/FEVER 30 days #0 tabs sennosides 8.6 mg-docusate sodium 2 tab PO BID #0 tabs 01/23/24 Unknown Rx 50 mg tablet (Stool Softener-Stimulant Laxative) Allergy/AdvReac Type Severity Reaction Status Date / Time amoxicillin (From Augmentin) Allergy Rash Verified 08/24/24 07:22 clavulanic acid (From Allergy Rash Verified 08/24/24 07:22 Augmentin) escitalopram (From Lexapro) Allergy Rash Verified 08/24/24 07:22 shellfish derived Allergy Unknown Verified 08/24/24 07:22 hydroxychloroquine (From AdvReac Severe Unknown Verified 08/24/24 07:22 Plaquenil) house dust AdvReac NEEDS Verified 08/24/24 07:22 FOLLOW-UP perfume AdvReac Unknown Verified 08/24/24 07:22 pineapple AdvReac Rash Verified 08/24/24 07:22 quinine AdvReac Unknown Verified 08/24/24 07:22 strawberry AdvReac Rash Verified 08/24/24 07:22 Sulfa (Sulfonamide AdvReac Unknown Verified 08/24/24 07:22 Antibiotics) Family History Brother Heart disease Hx CABG Hypertension Diabetes Mother Hypertension Surgical History History of permanent cardiac pacemaker placement (11/15/17) History of breast surgery History of hysterectomy Social History household members: spouse Smoking Status: Never smoker alcohol intake: never substance use type: does not use caffeine: No what type of physical activity do you participate in: none seatbelt use: always do you feel safe at home: Yes ROS ROS ED Review of Systems ROS Unobtainable: due to encephalopathy, due to mental condition and due to mental status EXAM Physical Exam Const Vital Signs: 09/25/24 03:42 09/25/24 03:42 09/25/24 03:51 Temperature 96.7 F L 96.7 F L Temperature Source Axillary Axillary Pulse Rate 72 72 Respiratory Rate 33 H 33 H Respiratory Effort Normal Non-Labored Respiratory Depth Normal Respiratory Pattern Normal Blood Pressure 135/63 H 135/63 H Blood Pressure Mean 87 87 Pulse Ox 83 83 Oxygen Delivery Method Room Air Nasal Cannula Room Air Oxygen Flow Rate (L/min) 09/25/24 03:52 09/25/24 04:00 09/25/24 04:15 Temperature Temperature Source Pulse Rate 73 73 73 Respiratory Rate 12 12 11 L Respiratory Effort Respiratory Depth Respiratory Pattern Blood Pressure 128/60 H 131/63 H Blood Pressure Mean 79 80 Pulse Ox 95 95 95 Oxygen Delivery Method Oxygen Flow Rate (L/min) 09/25/24 04:25 09/25/24 04:30 09/25/24 04:42 Temperature Temperature Source Pulse Rate 73 Respiratory Rate 34 H Respiratory Effort Respiratory Depth Respiratory Pattern Blood Pressure 147/71 H 147/71 H Blood Pressure Mean 93 96 Pulse Ox 92 Oxygen Delivery Method Room Air Room Air Oxygen Flow Rate (L/min) 09/25/24 04:45 09/25/24 04:45 09/25/24 04:51 Temperature 97.1 F L Temperature Source Axillary Pulse Rate 87 73 Respiratory Rate 26 H 13 Respiratory Effort Respiratory Depth Respiratory Pattern Blood Pressure 136/79 H 136/79 H 116/65 Blood Pressure Mean 97 97 82 Pulse Ox 91 95 Oxygen Delivery Method Nasal Cannula Oxygen Flow Rate (L/min) 4 09/25/24 05:00 09/25/24 05:15 09/25/24 05:30 Temperature Temperature Source Pulse Rate 73 73 Respiratory Rate 12 10 L Respiratory Effort Respiratory Depth Respiratory Pattern Blood Pressure 151/75 H 116/65 112/69 Blood Pressure Mean 98 82 82 Pulse Ox 91 Oxygen Delivery Method Oxygen Flow Rate (L/min) 09/25/24 05:45 09/25/24 06:00 09/25/24 06:00 Temperature 97.9 F Temperature Source Axillary Pulse Rate 73 73 73 Respiratory Rate 9 L 10 L 10 L Respiratory Effort Respiratory Depth Respiratory Pattern Blood Pressure 103/64 116/66 117/61 Blood Pressure Mean 77 82 78 Pulse Ox 97 96 96 Oxygen Delivery Method Nasal Cannula Oxygen Flow Rate (L/min) 4 09/25/24 06:15 09/25/24 06:53 Temperature 97.9 F Temperature Source Pulse Rate 73 73 Respiratory Rate 10 L 10 L Respiratory Effort Respiratory Depth Respiratory Pattern Blood Pressure 116/66 116/66 Blood Pressure Mean 82 82 Pulse Ox 96 Oxygen Delivery Method Oxygen Flow Rate (L/min) Positive well nourished and well developed General Appearance ED: well developed HEENT atraumatic Neck no JVD Resp Auscultation: diminished lung sounds diffuse Cardio regular rate and regular rhythm GI non-distended Palpation: soft Extremity normal to inspection General Extremety ED: Negative for edema General Extremity: Negative for edema Neuro Sensorium / Orientation: lethargic Motor Exam: general weakness MDM MDM MDM Narrative Medical decision making narrative: Differential diagnosis includes respiratory failure, hypercapnia, hypoxia, pneumonia, bronchitis, electrolyte abnormality, cardiac dysrhythmia, cardiac ischemia, sepsis, and viral illness. CBC will be obtained to assess for leukocytosis and anemia. Comprehensive metabolic profile will be obtained to assess for hepatic function, renal function, and electrolyte abnormality. Chest x-ray will be obtained to assess for pneumonia and bronchitis. EKG will be obtained to assess for cardiac dysrhythmia and cardiac ischemia. Blood cultures will be obtained to assess for sepsis. Urinalysis will be obtained to assess for urinary tract infection and hematuria. Urine culture will be obtained to assess for urinary tract infection. COVID-19, influenza, and RSV PCR will be obtained to assess for viral illness. PT with INR and PTT will be obtained to assess for coagulopathy. Serum lactate will be obtained to assess for sepsis. Lab Data Attestation: I reviewed the patient's lab results. Lab results narrative: CBC was reviewed. There is a mild anemia with a hemoglobin of 8.7 and hematocrit 28.7. Comprehensive metabolic profile was reviewed. BUN was 60 and creatinine was 2.32. These are increased from previous results. Potassium was slightly elevated at 5.3. Urinalysis was reviewed. Leukocyte esterase was 500 with greater than 100 white blood cells and 2+ bacteria. Serum lactate was reviewed and was normal at 0.5. PT was INR and PTT were reviewed and were within normal limits. COVID-19 PCR was reviewed and was negative. Influenza PCR was reviewed and was negative for influenza A and influenza B. RSV PCR was reviewed and was negative. Labs: Laboratory Results - last 24 hr 09/25/24 09/25/24 04:20 04:43 WBC 6.6 RBC 2.99 L Hgb 8.7 L Hct 28.7 L MCV 96.0 MCH 29.1 MCHC 30.3 L RDW Std Deviation 52.3 H RDW Coeff of Ernesto 15.0 H Plt Count 155 MPV 11.6 Immature Gran % (Auto) 2.000 H Neut % (Auto) 72.5 H Lymph % (Auto) 18.0 L Kimble % (Auto) 6.6 Eos % (Auto) 0.3 Baso % (Auto) 0.6 Absolute Neuts (auto) 4.8 Absolute Lymphs (auto) 1.18 Nucleated RBC % 0.3 Differential Comment SCANNED PT 13.2 INR 1.0 APTT 21.4 L Sodium 139 Potassium 5.3 H Chloride 111 H Carbon Dioxide 22.0 Anion Gap 6 BUN 60 H Creatinine 2.32 H Estim Creat Clear Calc 22.56 Est GFR (MDRD) Af Amer 27 L Est GFR (MDRD) Non-Af 22 L BUN/Creatinine Ratio 25.9 H Glucose 197 H Lactic Acid 0.5 Calcium 9.4 Total Bilirubin 0.30 AST 28 ALT < 6 L Alkaline Phosphatase 61 Total Protein 7.3 Albumin 2.4 L Globulin 4.9 H Albumin/Globulin Ratio 0.5 L Urine Color Yellow Urine Clarity Cloudy Urine pH 6.0 Ur Specific Gilliam 1.020 Urine Protein 500 H Urine Glucose (UA) Normal Urine Ketones Negative Urine Occult Blood 10 H Urine Nitrite Negative Urine Bilirubin Negative Urine Urobilinogen Normal Ur Leukocyte Esterase 500 H Urine RBC 0 SEEN Urine WBC >100 SEEN Ur Squamous Epith Cells 5-10 SEEN Urine Bacteria 2+ Urine Mucus 0 SEEN Urine Yeast RARE ABG Data Attestation: I personally reviewed and interpreted this ABG as follows: Interpretation: Arterial blood gas was obtained. pH was 7.17. pO2 was 75. pCO2 is 70.3. Bicarb was 25.6. Oxygen saturation was 90%. ABG results: ABG 09/25/24 06:55 Specimen Type ART Sample Site R Radial pH 7.17 L* Bicarbonate Actual 25.6 Total CO2 28 Base Excess -3 L O2 Saturation 90 L O2 % 4.0 ABG pCO2 70.3 H* ABG pO2 75 Mao Test Positive O2 Delivery Device Cannula Vent Mode Not entered Crit Call To/Read Back Yes Radiography Chest X-Ray - ED: 1 View, Read by ED Physician, Read by Radiologist and Left Infiltrate Diagnostic Testing: Clinical Impression(s) from Imaging Studies Chest X-Ray 09/25/24 05:15 IMPRESSION: 1. Left retrocardiac opacification with some air bronchograms. Differential diagnosis includes pneumonia and edema. 2. Cardiomegaly with bilateral pleural effusions and pulmonary vascular congestion. Electronically Signed: Martin Em MD at 6:49 EST , Portable chest x-ray was obtained. There is 1 view. On my independent interpretation, there appears to be a left lower lobe infiltrate. There is no pneumothorax. There is poor expiratory effort noted. EKG Initial EKG: Attestation: I personally reviewed and interpreted this EKG as follows: Interpretation: Paced (72) Comments: EKG was obtained. On my independent interpretation, shows a ventricular paced rhythm with a rate of 72. QRS was prolonged at 222 ms. QTc interval was 560 ms. There is left axis deviation -44. There is a left bundle branch block pattern noted. There are no acute ST or T wave changes noted. Prior EKG tracings: available for review Prior: Unchanged (01/20/2024) Management Discussion w/another healthcare provider: Hospitalist Treatment and Re-Evaluation :: Patient was given IV fluids. Patient was somewhat more awake with tactile stimuli. Patient began yelling when she was woken up. Patient was started on Rocephin. Patient was also started on Zithromax. Case was discussed with the hospitalist. She will admit the patient to ICU. Patient was started on BiPAP. Critical Care Time Critical Care Time: Yes Critical care time (excluding procedures): 30-74 minutes (33), Including time spent:, Discussing w/Patient &/or Family/Chief Engineer [employer], Discussing w/Consultants, Arranging Admission or Transfer and Performing Direct Patient Care at Bedside Discharge Plan Dx/Rx/DC Orders Clinical Impression: UTI (urinary tract infection), Hypoxia, Altered mental status, CHETNA (acute kidney injury), Essential hypertension Disposition Disposition: Acute Care Hospital [facility]
--- NOTE | 2024-09-25 04:25 | EKG12_ITS ---
Test Reason : DYSRHYTHMIA Blood Pressure : */* mmHG Vent. Rate : 72 BPM Atrial Rate : 64 BPM P-R Int : * ms QRS Dur : 222 ms QT Int : 512 ms P-R-T Axes : * -44 88 degrees QTcB Int : 560 ms Ventricular-paced rhythm Abnormal ECG Confirmed by DOT LAMAR, TASHIA ([id number]), business editor CHRIS REYES ([id number]) on 09/27/2024 6:17:28 AM Referred By: LORENA Confirmed By: TASHIA CHRIS MD
[2024-09-25 04:48] LABS: Mucous, Urine 0 SEEN /hpf (<or=2+); Red Blood Cells-Urine 0 SEEN /hpf (0-5)
[2024-09-25 04:51] LABS: Color, Urine Yellow (Yellow); Glucose, Dipstick Normal (Normal); Ketone-Dipstick Negative (Negative); Leukocyte Esterase-Dipstick 500 /ul (Negative); Nitrite-Dipstick Negative (Negative); Occult Blood-Urine 10 /ul (Negative); Protein-Dipstick 500 mg/dl (Negative); Urine Bilirubin Dipstick Negative (Negative); Urine Clarity Cloudy (Clear); Urine Urobilinogen Normal (Normal)
[2024-09-25 04:57] LABS: Absolute Lymphocyte Count 1.18 X10^3/uL (0.83-4.51); Absolute Neutrophil Count 4.8 X10^3/uL (2.0-7.7); Basophil# 0.04 X10^3/uL; Basophil% 0.6 % (0-1); Eosinophil# 0.02 X10^3/uL; Eosinophils% 0.3 % (0-5); Hematocrit 28.7 % (37-47); Hemoglobin 8.7 g/dL (12.0-15.0); Lymphocyte # 1.18 X10^3/ul (0.83-4.51); Mean Corp Hgb Conc 30.3 g/dL (32-36); Mean Corpuscular Hgb 29.1 pg (27.0-32.0); Mean Platelet Vol. 11.6 fl (6.2-12.0); Monocyte# 0.43 X10^3/uL; Monocyte% 6.6 % (0-10); NRBC Flagged by Analyzer 0.3 % (0-5); Neutrophil # 4.75 X10^3/uL (2.7-7.7); Neutrophil % 72.5 % (47-70); POSITIVE COUNT YES; Platelet Count 155 K/mm3 (150-450); RBC Distribution Width SD 52.3 fl (35.1-43.9); Red Blood Count 2.99 M/mm3 (4.2-5.4); White Blood Count 6.6 K/mm3 (4.4-11.0)
[2024-09-25 05:00] LABS: Bacteria 2+ /hpf (None Seen); Squamous Epithelial Cells - UA 5-10 SEEN /hpf (5-10); White Blood Cells >100 SEEN /hpf (0-5)
[2024-09-25 05:01] LABS: Yeast-Urine RARE /hpf (None Seen)
[2024-09-25 05:07] LABS: ALB/GLOB Ratio 0.5 RATIO (0.9-2.4); AST(SGOT) 28 U/L (15-37); Alanine Aminotransfer ALT/SGPT < 6 U/L (13-56); Albumin, Serum 2.4 g/dL (3.2-5.0); Alkaline Phosphatase 61 U/L (45-117); Anion Gap 6 (5-15); BUN 60 mg/dL (7-18); BUN/Creat Ratio 25.9 RATIO (10-20); Calcium,Total 9.4 mg/dL (8.5-10.1); Chloride 111 mmol/L (98-107); Creatinine, Serum 2.32 mg/dL (0.55-1.02); EST Glomerular Filtration Rate 22 mL/min (>60); Est Glom Filt Rate - Afr Amer 27 mL/min (>60); Estimated Creatinine Clearance 22.56 ml/min; Globulin 4.9 g/dL (2.2-4.2); Glucose 197 mg/dL (74-106); Lactic Acid 0.5 mmol/L (0.4-1.9); Potassium 5.3 mmol/L (3.5-5.1); Protein, Total 7.3 g/dL (6.4-8.2); Sodium Level 139 mmol/L (136-145)
[2024-09-25 05:14] LABS: Prothrombin Time (Protime)PT. 13.2 SECONDS (11.7-14.9)
[2024-09-25 05:15] LABS: Partial Thromboplast Time 21.4 Seconds (24.1-36.2)
--- NOTE | 2024-09-25 05:15 | RAD_ITS ---
EXAM: XR CHEST, 1 VIEW CLINICAL INDICATION: Altered mental status TECHNIQUE: Frontal view of the chest. COMPARISON: 01/20/2024. FINDINGS: LUNGS AND PLEURAL SPACES: Left retrocardiac opacification with some air bronchograms. Moderate bilateral pleural effusions. Pulmonary vascular congestion. No pneumothorax. HEART: Cardiomegaly. MEDIASTINUM: Central airways and mediastinal contour are unremarkable. BONES/JOINTS: Unremarkable. No acute fracture. SOFT TISSUES: Unremarkable. TUBES, LINES AND DEVICES: AV sequential pacemaker leads remain in good position. RAD/Chest 1 View (Portable) IMPRESSION: 1. Left retrocardiac opacification with some air bronchograms. Differential diagnosis includes pneumonia and edema. 2. Cardiomegaly with bilateral pleural effusions and pulmonary vascular congestion. Electronically Signed: Mratin Em MD at 6:49 EST ,
[2024-09-25] MEDS: 0.9% Normal Saline (500mL Bag) 500 ML 999 ML IV (05:21)
[2024-09-25] MEDS: Ceftriaxone 2 GM in 0.9% Normal Saline (50mL MB+) 50 ML IV (05:38)
[2024-09-25 05:40] LABS: Differential Indicated SCAN CRITERIA MET
[2024-09-25 05:41] LABS: Differential Comment SCANNED
--- NOTE | 2024-09-25 06:24 | HP.PCM.HOS_ITS ---
HPI - General General Date of Admission: 09/25/24 Date of Service: 09/25/24 Chief Complaint: Dyspnea. HPI Narrative The patient is a 72 y/o F w/ PMHx: Parkinson's disease, CKD stage II-III per review of records, Chronic normocytic anemia/iron deficiency anemia, Anxiety and Depression, Seizure disorder, Tachy-maurizio syndrome s/p pacemaker, HTN, HLD, PAF, Diabetes mellitus type II with neuropathy, Obesity who presents to the [facility] ED on 09/25/2024 with specifically dyspnea worsening through the evening and unfortunately patient is a poor informant with EMS reported initial crackles and wheezing with minimal improvement with aerosols prompting ED transition for evaluation. In the ED patient initially very encephalopathic but improved following Dickson placement attempts. Workup in the ED included T96.7, heart rate 72, BP 135/63, respiratory rate 33, initially 83% on room air upon presentation with most recent repeat vitals T97.1 Axillary, heart rate 73, BP 151/75, respiratory rate 12, 95% on 4 L nasal cannula, CBC with WC 6.6, hemoglobin 8.7, MCV 96, platelet 155 with increased immature granulocyte, unremarkable coags besides PT 21.4, CMP with potassium 5.3 however is moderately hemolyzed thus falsely elevated in all likelihood, chloride 111, BUN/creatinine 60/2.32, GFR 22, glucose 197, lactic acid 0.5, hepatic profile unremarkable, urinalysis with cloudy appearing urine, specific remedy 1.020, protein 500, occult blood 10, negative nitrite, 500 leukocyte esterase with urine WBCs greater than 100 with 2+ urine bacteria, urine culture pending per ED, blood culture x 2 pending per ED, rapid SARS COVID/influenza/RSV PCR negative, chest x-ray with concern for left lower lobe infiltrate however final read pending upon evaluation, EKG paced with no acute evidence of ischemia. In the ED patient administered 1 L normal saline, Rocephin 2 g IV x 1 and azithromycin 5 mg IV x 1. Upon ED evaluation of patient per hospitalist patient is extremely obtunded therefore discussed with the ED and ABG will be obtained. [facility] Medical History Parkinsons disease Pacemaker malfunction Chronic UTI S/P extracorporeal shock wave therapy Bladder disease Failure to thrive in adult Glaucoma TBI (traumatic brain injury) Kidney stone Lives in fdc Insulin dependent diabetes mellitus Uses wheelchair Walker as ambulation aid Stroke/cerebrovascular accident Syncope Parkinson's disease Dietary restriction Heartburn History of edema History of echocardiogram Cardiology follow-up encounter Anxiety Non-smoker Kidney disease Atrial fibrillation Pacemaker Hypertension Seizures Obesity Type 2 diabetes mellitus Hypertriglyceridemia Chronic kidney disease (CKD) Paroxysmal atrial fibrillation Essential hypertension Dysuria Septic shock Junctional rhythm Tachy-maurizio syndrome Vaginal bleeding Breakthrough seizure HLD (hyperlipidemia) Hypertensive emergency without congestive heart failure Seizure Home Medications ?Medication ?Instructions ?Recorded ?Last Taken ?Type sitagliptin phosphate 50 mg tablet 100 mg PO DAILY DIABETES 11/19/21 01/20/24 History (Januvia) allopurinol 100 mg tablet 100 mg PO DAILY GOUT 12/10/22 01/20/24 History aspirin 81 mg tablet,delayed 81 mg PO DAILY HEART HEALTH 12/10/22 01/20/24 History release (Adult Low Dose Aspirin) alendronate 70 mg tablet 70 mg PO SA BONE HEALTH 06/15/23 01/15/24 History carbidopa 10 mg-levodopa 100 mg 1 tab PO TID PARKINSONS 06/15/23 01/20/24 History tablet citalopram 10 mg tablet 10 mg PO DAILY DEPRESSION 06/15/23 01/20/24 History estradiol 0.01% (0.1 mg/gram) 1 appful vaginal PRECIADO HORMONES 06/15/23 01/16/24 History vaginal cream insulin glargine 100 unit/mL (3 24 unit subcut QHS DIABETES 06/15/23 01/19/24 History mL) subcutaneous pen (Lantus Solostar U-100 Insulin) lacosamide 150 mg tablet 150 mg PO BID EPILEPSY 06/15/23 01/20/24 History clobazam 10 mg tablet 5 mg PO DAILY EPILEPSY 10/12/23 01/19/24 History ferrous sulfate 325 mg (65 mg 325 mg PO QODAY ANEMIA 10/12/23 01/20/24 History iron) tablet,delayed release hydralazine 10 mg tablet 10 mg PO TID BLOOD PRESSURE 10/12/23 01/20/24 History calcium carbonate (Calcium 500) 500 mg PO Q4H PRN GERD 12/14/23 Unknown History insulin lispro 100 unit/mL See Protocol subcut BIDCM DIABETES 12/14/23 01/20/24 History subcutaneous pen pregabalin 150 mg capsule 150 mg PO BID EPILEPSY 12/14/23 01/20/24 History amlodipine 5 mg tablet 5 mg PO QHS BLOOD PRESSURE 12/18/23 01/19/24 History mirtazapine 30 mg tablet 30 mg PO QHS DEPRESSION 12/18/23 01/19/24 History ondansetron HCl 8 mg tablet 8 mg PO Q8H PRN NAUSEA 12/18/23 Unknown History ascorbic acid (vitamin C) 500 mg 500 mg PO DAILY SUPPLEMENT 01/20/24 01/20/24 History tablet cranberry 500 mg capsule 500 mg PO TID UTI PREVENTION 01/20/24 01/20/24 History insulin lispro 100 unit/mL 5 unit subcut DINNER DIABETES 01/20/24 01/19/24 History subcutaneous pen insulin lispro 100 unit/mL 7 unit subcut BID DIABETES 01/20/24 01/20/24 History subcutaneous pen metformin 500 mg tablet 500 mg PO DAILY DIABETES 01/20/24 01/20/24 History acetaminophen 500 mg tablet 1,000 mg (2 x 500 mg) PO Q8H PRN 01/23/24 01/20/24 Rx PRN PAIN/FEVER 30 days #0 tabs sennosides 8.6 mg-docusate sodium 2 tab PO BID #0 tabs 01/23/24 Unknown Rx 50 mg tablet (Stool Softener-Stimulant Laxative) Allergy/AdvReac Type Severity Reaction Status Date / Time amoxicillin (From Augmentin) Allergy Rash Verified 08/24/24 07:22 clavulanic acid (From Allergy Rash Verified 08/24/24 07:22 Augmentin) escitalopram (From Lexapro) Allergy Rash Verified 08/24/24 07:22 shellfish derived Allergy Unknown Verified 08/24/24 07:22 hydroxychloroquine (From AdvReac Severe Unknown Verified 08/24/24 07:22 Plaquenil) house dust AdvReac NEEDS Verified 08/24/24 07:22 FOLLOW-UP perfume AdvReac Unknown Verified 08/24/24 07:22 pineapple AdvReac Rash Verified 08/24/24 07:22 quinine AdvReac Unknown Verified 08/24/24 07:22 strawberry AdvReac Rash Verified 08/24/24 07:22 Sulfa (Sulfonamide AdvReac Unknown Verified 08/24/24 07:22 Antibiotics) Family History Brother Heart disease Hx CABG Hypertension Diabetes Mother Hypertension Surgical History History of permanent cardiac pacemaker placement (11/15/17) History of breast surgery History of hysterectomy Social History household members: spouse Smoking Status: Never smoker alcohol intake: never substance use type: does not use caffeine: No what type of physical activity do you participate in: none seatbelt use: always do you feel safe at home: Yes ROS Review of Systems ROS Unobtainable: due to encephalopathy Vital Signs Vital Signs Vital Signs: 09/25/24 03:42 09/25/24 03:42 09/25/24 03:51 Temperature 96.7 F L 96.7 F L Temperature Source Axillary Axillary Pulse Rate 72 72 Respiratory Rate 33 H 33 H Respiratory Effort Normal Non-Labored Respiratory Depth Normal Respiratory Pattern Normal Blood Pressure 135/63 H 135/63 H Blood Pressure Mean 87 87 Pulse Ox 83 83 Oxygen Delivery Method Room Air Nasal Cannula Room Air Oxygen Flow Rate (L/min) 09/25/24 03:52 09/25/24 04:00 09/25/24 04:15 Temperature Temperature Source Pulse Rate 73 73 73 Respiratory Rate 12 12 11 L Respiratory Effort Respiratory Depth Respiratory Pattern Blood Pressure 128/60 H 131/63 H Blood Pressure Mean 79 80 Pulse Ox 95 95 95 Oxygen Delivery Method Oxygen Flow Rate (L/min) 09/25/24 04:25 09/25/24 04:30 09/25/24 04:42 Temperature Temperature Source Pulse Rate 73 Respiratory Rate 34 H Respiratory Effort Respiratory Depth Respiratory Pattern Blood Pressure 147/71 H 147/71 H Blood Pressure Mean 93 96 Pulse Ox 92 Oxygen Delivery Method Room Air Room Air Oxygen Flow Rate (L/min) 09/25/24 04:45 09/25/24 04:45 09/25/24 04:51 Temperature 97.1 F L Temperature Source Axillary Pulse Rate 87 73 Respiratory Rate 26 H 13 Respiratory Effort Respiratory Depth Respiratory Pattern Blood Pressure 136/79 H 136/79 H 116/65 Blood Pressure Mean 97 97 82 Pulse Ox 91 95 Oxygen Delivery Method Nasal Cannula Oxygen Flow Rate (L/min) 4 09/25/24 05:00 Temperature Temperature Source Pulse Rate 73 Respiratory Rate 12 Respiratory Effort Respiratory Depth Respiratory Pattern Blood Pressure 151/75 H Blood Pressure Mean 98 Pulse Ox 91 Oxygen Delivery Method Oxygen Flow Rate (L/min) Weight Weight: 201 lb 4.513 oz Body Mass Index (BMI) 37.0 Physical Exam Narrative Physical Examination: General: Encephalopathic, significant obtunded but does eventually wake up with sternal rubbing, pending ABG per discussion with ED physician given these findings, maintaining airway and vital stable. Skin: Normal color, normal turgor, no icterus, no cyanosis except occasional stage ecchymoses, abrasion. HEENT: AT/NC, EOM unable to be assessed well given obtunded status and not following commands, PERRLA, dry MM, no carotid bruits or JVD noted. Lungs: Significant diminished, greater bases, left greater than right, no evidence of any distress, no rales, ronchi or wheezing. Heart: Regular rate and rhythm; no gallop, rub audible. Abdomen: Soft, obese, no grimacing with palpation, ND, distant normal BS, no appreciated HSM. Extremities: No cyanosis, no clubbing, mild ankle to distal hernandez mild edema. Neurological: Encephalopathic, significant obtunded but does eventually wake up with sternal rubbing, pending ABG per discussion with ED physician given these findings, maintaining airway and vital stable, cognitive function diminished baseline with underlying Parkinson disease with dementia, currently not baseline intact; pupils equally reactive to light and accommodation, difficult to assess cranial nerves given encephalopathy, is spontaneously moving extremities once agitated following sternal rubbing, strength severely globally decreased secondary to acute presentation complicated by underlying comorbidities Psychiatric: Affect appears lethargic, encephalopathic, no acute evidence of depressive or anxiety feelings but does have underlying history. Results Lab / Micro Data 09/25/24 04:20 09/25/24 04:20 Labs: Laboratory Results - last 24 hr 09/25/24 04:20: WBC 6.6, RBC 2.99 L, Hgb 8.7 L, Hct 28.7 L, MCV 96.0, MCH 29.1, MCHC 30.3 L, RDW Std Deviation 52.3 H, RDW Coeff of Ernesto 15.0 H, Plt Count 155, MPV 11.6, Immature Gran % (Auto) 2.000 H, Neut % (Auto) 72.5 H, Lymph % (Auto) 18.0 L, [place] % (Auto) 6.6, Eos % (Auto) 0.3, Baso % (Auto) 0.6, Absolute Neuts (auto) 4.8, Absolute Lymphs (auto) 1.18, Nucleated RBC % 0.3, Differential Comment SCANNED, PT 13.2, INR 1.0, APTT 21.4 L, Sodium 139, Potassium 5.3 H, C hloride 111 H, Carbon Dioxide 22.0, Anion Gap 6, BUN 60 H, Creatinine 2.32 H, Estim Creat Clear Calc 22.56, Est GFR (MDRD) Af Amer 27 L, Est GFR (MDRD) Non-Af 22 L, BUN/Creatinine Ratio 25.9 H, Glucose 197 H, Lactic Acid 0.5, Calcium 9.4, Total Bilirubin 0.30, AST 28, ALT < 6 L, Alkaline Phosphatase 61, Total Protein 7.3, Albumin 2.4 L, Globulin 4.9 H, Albumin/Globulin Ratio 0.5 L 09/25/24 04:43: Urine Color Yellow, Urine Clarity Cloudy, Urine pH 6.0, Ur Specific [place] 1.020, Urine Protein 500 H, Urine Glucose (UA) Normal, Urine Ketones Negative, Urine Occult Blood 10 H, Urine Nitrite Negative, Urine Bilirubin Negative, Urine Urobilinogen Normal, Ur Leukocyte Esterase 500 H, Urine RBC 0 SEEN, Urine WBC >100 SEEN, Ur Squamous Epith Cells 5-10 SEEN, Urine Bacteria 2+, Urine Mucus 0 SEEN, Urine Yeast RARE Micro: Microbiology 09/25/24 04:35 Mucosa - Nose SARS-CoV-2, Influenza & RSV (PCR) - Final Assessment & Plan Assessment/Plan (1) Hypoxia: (2) Pneumonia: PLAN: Plan The patient is a 72 y/o F w/ PMHx: Parkinson's disease, CKD stage II-III per review of records, Chronic normocytic anemia/iron deficiency anemia, Anxiety and Depression, Seizure disorder, Tachy-maurizio syndrome s/p pacemaker, HTN, HLD, PAF, Diabetes mellitus type II with neuropathy, Obesity who presents to the [facility] ED on 09/25/2024 with specifically dyspnea worsening through the evening and unfortunately patient is nonverbal and a poor informant with EMS reported initial crackles and wheezing with minimal improvement with aerosols prompting ED transition for evaluation. #1. Acute Encephalopathy secondary to Acute Hypoxia secondary to Suspected LLL Pneumonia, complicated by #2: CXR in the ED w/ concern for left lower lobe pneumonia. Given significantly obtunded status in the ED requested ABG although currently maintaining airway and vital stable. As long as there is no concerning ABG findings that would require ICU admission would plan to continue with admission to PCU, will maintain on oxygen with wean as tolerated to room air, maintain on ATC budesonide therapy, PRN albuterol, maintained on IV Rocephin and Azithromycin, HOB, IS parameters w/ pending sputum cultures, full respiratory viral panel, and urine antigens. Bld cx x 2 obtained in the ED. PT/OT/case management consulted for discharge planning. #2. Acute Urinary Tract Infection: UA upon ED evaluation remarkable, pending UCx, will continue judiciously hydrate IVFs, monitor I/Os, continue IV Rocephin w/ transition as able pending sensitivities and speciation. Bld cx x 2 obtained in the ED. #3. Acute kidney injury on CKD stage II versus III unclear subtype per GFR trending: Secondary to acute urinary tract infection as noted #1 admission BUN/Cr 60/2.32, GFR 22, prior baseline creatinine noted to be primarily 1.4-1.7 however most recently 09/14/2024 creatinine 1.59. Will hydrate, hold nephrotoxic medications and repeat chemistry in AM. #4. Parkinson's disease with associated underlying dementia of unclear extent with unclear behavioral disturbance history: Complicates presentation, will continue patient home Sinemet regimen, maintain on fall precautions, PT/OT/case management consulted for discharge planning. #5. Chronic normocytic anemia/iron deficiency anemia: Admission hemoglobin 8.7, MCV 96, baseline primarily 9-10, will continue to trend CBC, continue iron supplementation. #6. Hypertension: Continue home regimen including hydralazine, amlodipine with hold parameters as needed, PRN hydralazine. #7. Hyperlipidemia: Patient had previously been on statin, per current list is not appear to be but clarifying. #8. Tachybradycardia syndrome: Status post pacemaker placement, encourage continued outpatient follow-up with cardiology as previously arranged. #9. PAF: Status post pacemaker, not anticoagulated and not on any rate or rhythm agent. #10. Seizure disorder: Patient previously had been on significant antiepileptic regimen, including Vimpat, Kerendia, Depakote, clarifying to be certain is currently only lacosamide is listed as well as clobazam thus certainly could have had medication regimen changes. #11. Anxiety and depression: We will continue patient home mirtazapine and citalopram home regimen #12. Diabetes mellitus type II w/ chronic neuropathy: Will hold oral home regimen, continue home insulin regimen, ADA diet, accu checks w/ ISS, continue patient home pregabalin regimen. #13. Obesity: Weight loss and lifestyle changes encouraged. #14. Gout: We will continue patient home allopurinol regimen. #15. DVT prophylaxis: Heparin. #16. CODE STATUS: Per facility paperwork patient is DNR CCA no intubation. Charges/Coding Visit Charges Inpatient E&M: 43984 Init Hosp L3
--- NOTE | 2024-09-25 06:50 | ED.RN ---
when this rn went in to check iv status and help RT with ABG, pts left arm noted to be edematous. pts iv infiltrated iv fluids and iv rocephin. pharmacy called and medication checked- is not a vesicant drug. pt given warm compress for comfort. quantros filled out.
[2024-09-25 07:00] LABS: Allen Test Positive; Base Excess -3 mmol/L (-2 to +2); Bicarbonate 25.6 mmol/L (22-26); Blood Gas Specimen Type ART; Mode Not entered; O2 Delivery Device Cannula; PO2 75 mmHG (75-100); SITE R Radial; SO2 90 % (95-99); Total Carbon Dioxide 28 mmol/L; pCO2 70.3 mmHg (35-45); pH 7.17 (7.35-7.45)
--- NOTE | 2024-09-25 07:04 | PN.HOSP_ITS ---
Reason for Visit Reason for Visit: Diagnoses Pneumonia, unspecified organism (09/25/24) Hypoxemia (09/25/24) Subjective Subjective Patient is a 74-year-old lady with multiple comorbidities who was admitted with altered mental status as well as hypoxia. Imaging studies obtained on admission demonstrated left lower lobe infiltrate. An assessment of acute encephalopathy secondary to acute hypoxic respiratory failure made patient admitted to the intensive care unit for further management Objective Data Objective Data Vital Signs: Vital Signs Temp Pulse Resp BP Pulse Ox O2 Del Method O2 Flow Rate 97.9 F 73 10 L 116/66 96 Nasal Cannula 4 09/25/24 06:53 09/25/24 06:53 09/25/24 06:53 09/25/24 06:53 09/25/24 06:53 09/25/24 06:00 09/25/24 06:00 Oxygen Flow Rate (L/min) 4 Oxygen Delivery Method Nasal Cannula Weight: 91.3 kg Body Mass Index (BMI) 37.0 Lab / Micro Data 09/25/24 04:20 09/25/24 04:20 Labs: Laboratory Results - last 24 hr 09/25/24 04:20: WBC 6.6, RBC 2.99 L, Hgb 8.7 L, Hct 28.7 L, MCV 96.0, MCH 29.1, MCHC 30.3 L, RDW Std Deviation 52.3 H, RDW Coeff of Ernesto 15.0 H, Plt Count 155, MPV 11.6, Immature Gran % (Auto) 2.000 H, Neut % (Auto) 72.5 H, Lymph % (Auto) 18.0 L, [place] % (Auto) 6.6, Eos % (Auto) 0.3, Baso % (Auto) 0.6, Absolute Neuts (auto) 4.8, Absolute Lymphs (auto) 1.18, Nucleated RBC % 0.3, Differential Comment SCANNED, PT 13.2, INR 1.0, APTT 21.4 L, Sodium 139, Potassium 5.3 H, C hloride 111 H, Carbon Dioxide 22.0, Anion Gap 6, BUN 60 H, Creatinine 2.32 H, Estim Creat Clear Calc 22.56, Est GFR (MDRD) Af Amer 27 L, Est GFR (MDRD) Non-Af 22 L, BUN/Creatinine Ratio 25.9 H, Glucose 197 H, Lactic Acid 0.5, Calcium 9.4, Total Bilirubin 0.30, AST 28, ALT < 6 L, Alkaline Phosphatase 61, Total Protein 7.3, Albumin 2.4 L, Globulin 4.9 H, Albumin/Globulin Ratio 0.5 L 09/25/24 04:43: Urine Color Yellow, Urine Clarity Cloudy, Urine pH 6.0, Ur Specific [place] 1.020, Urine Protein 500 H, Urine Glucose (UA) Normal, Urine Ketones Negative, Urine Occult Blood 10 H, Urine Nitrite Negative, Urine Bilirubin Negative, Urine Urobilinogen Normal, Ur Leukocyte Esterase 500 H, Urine RBC 0 SEEN, Urine WBC >100 SEEN, Ur Squamous Epith Cells 5-10 SEEN, Urine Bacteria 2+, Urine Mucus 0 SEEN, Urine Yeast RARE Micro: Microbiology 09/25/24 04:35 Mucosa - Nose SARS-CoV-2, Influenza & RSV (PCR) - Final ABG Data ABG results: ABG 09/25/24 06:55 Specimen Type ART Sample Site R Radial pH 7.17 L* Bicarbonate Actual 25.6 Total CO2 28 Base Excess -3 L O2 Saturation 90 L O2 % 4.0 ABG pCO2 70.3 H* ABG pO2 75 Mao Test Positive O2 Delivery Device Cannula Vent Mode Not entered Crit Call To/Read Back Yes Radiography Diagnostic Testing: Radiology Impression Chest X-Ray 09/25/24 05:15 IMPRESSION: 1. Left retrocardiac opacification with some air bronchograms. Differential diagnosis includes pneumonia and edema. 2. Cardiomegaly with bilateral pleural effusions and pulmonary vascular congestion. Electronically Signed: Martin Em MD at 6:49 EST , Physical Exam Narrative GENERAL: Encephalopathic HEENT: Atraumatic; normocephalic EYES; Anicteric, Normal Conjunctiva NECK; supple, normal thyroid, RESPIRATORY: Diminished to auscultation CARDIOVASCULAR: Regular S1 S2, GI: soft, normoactive bowel sounds, : No Renal angle tenderness; EXTREMITIES: edema, no clubbing, MUSCULOSKELETAL: no muscle wasting NEURO: no lateralizing signs. SKIN: No Rash PSYCH; Flat affect Assessment & Plan Assessment/Plan (1) Hypoxia: (2) Pneumonia: PLAN: Plan Patient is a 74-year-old lady with multiple comorbidities who was admitted with altered mental status as well as hypoxia. Imaging studies obtained on admission demonstrated left lower lobe infiltrate. An assessment of acute encephalopathy secondary to acute hypoxic respiratory failure made patient admitted to the intensive care unit for further management 1. Acute metabolic encephalopathy ? Secondary to acute hypoxic respiratory failure from pneumonia, acute cystitis as well as congestive heart failure admitted to the intensive care unit for subsequent management 2. Acute hypoxic respiratory failure ? Secondary to left lower lobe pneumonia. Imaging studies obtained on admission did show Left retrocardiac opacification with some air bronchograms. Patient was placed on noninvasive ventilation BiPAP and admitted to the intensive care unit consult was placed to critical care/pulmonary medicine for subsequent eval 3. Acute congestive heart failure with preserved ejection fraction ? Echo from 06/28/2023 from an outside hospital demonstrated RVSP of 31 mmHg and estimated EF of 59%. Patient was placed on fluid restriction, strict input and output, daily weight, low-sodium diet as well as diuretic therapy. Repeat echo ordered for subsequent 4. Acute kidney injury ? Superimposed on chronic kidney disease stage III baseline 1.59 from 09/14/2024. Multifactorial including suspected hypoperfusion from CHF monitoring with daily BMPs 5. Hyperkalemia ? Secondary to impaired kidney function treatment initiated per protocol. Patient admitted to a monitored bed. Response to therapy being monitored with repeat BMP. Patient is on trimethoprim discontinued given the hyperkalemia 6.? Acute cystitisPatient started on ceftriaxone ? Patient started on ceftriaxone urine culture sent 7. Pneumonia - Suspected to be secondary to streptococcal pneumonia, Blood and sputum cultures sent. Patient placed on Rocephin and Zithromax and placed on oxygen titrated to keep Pulse Ox greater than 90 8. Anemia - Secondary to chronic disorder monitoring H&H and transfuse if patient becomes symptomatic or hemoglobin falls below? 7 9.? Benign essential hypertension - Blood pressure controlled, home medications continued with dose adjustment as needed 10.? Diabetes mellitus type II -patient's oral hypoglycemics held. Placed on long acting insulin, Accu-Cheks a.c. and at bedtime and covered with sliding scale insulin 11.? Seizure disorder ? Did continue patient antiseizure medications 12.? Paroxysmal A. fib ?Rate controlled.? Patient not on systemic anticoagulation 13.? Tachybradycardia syndrome ? Status post pacemaker placement 14.? Obesity with BMI of 35.1 ? Plan is to certified addiction counselor patient on weight reduction when her encephalopathy improves 15. Parkinson's disease ? Patient is on carbidopa levodopa did continue 16. Depression with anxiety ? Patient is on citalopram continue 17. Gout ? Patient's allopurinol continued 18. DVT prophylaxis SC heparin Time spent in the patient's overall evaluation,decision-making process, review of diagnostic data, adjustment of management, discussion with other providers, nursing nursing and ancillary staff involved in patient's care documentation, 55 Minutes Charges/Coding Visit Charges Inpatient E&M: 85794 [facility] Hosp L3
[2024-09-25] MEDS: Azithromycin 500 MG in 0.9% Normal Saline (250mL Bag) 250 ML 255 MG IV (07:22)
--- NOTE | 2024-09-25 07:31 | CPS ---
ABG results handed to MD Fried
[2024-09-25 08:23] LABS: Allen Test Positive; Base Excess -2 mmol/L (-2 to +2); Bicarbonate 25.5 mmol/L (22-26); Blood Gas Specimen Type ART; Comment AVAPS; Mode Not entered; O2 Delivery Device BiPAP; PEEP 6; PO2 96 mmHG (75-100); RR 12; SITE R Radial; SO2 95 % (95-99); Total Carbon Dioxide 28 mmol/L; pH 7.21 (7.35-7.45)
[2024-09-25] MEDS: 0.9% Normal Saline (1000mL) 1,000 ML 100 ML IV (09:40)
[2024-09-25] MEDS: Heparin Injection (Vial) 5,000 UNIT/ML VIAL 5000 UNIT SC ×2 (10:18→21:46)
--- NOTE | 2024-09-25 10:23 | CON.PCM.CC_ITS ---
Assessment & Plan Assessment/Plan (1) Sepsis: (2) Pneumonia: PLAN: Plan RECOMMENDATIONS: 1. Continue empiric antimicrobials. 2. Continue AVAPS therapy. 3. Maintain n.p.o. status for now. 4. Hold sedating medications, including Lyrica. 5. Continue appropriate DVT prophylaxis. 6. Check BNP and procalcitonin. IMPRESSIONS: 1. Acute respiratory failure with hypoxemia and hypercapnia The patient has no known history of any pre-existing lung conditions, but presented with hypoxemia and hypercapnia, with concern for underlying pulmonary edema related to heart failure, along with concurrent pneumonia. The patient appears to be slowly improving with noninvasive positive pressure ventilatory support. CODE STATUS was documented to be a DNR CCA without intubation. Therefore, continue current supportive measures, including antimicrobials. 2. Sepsis The patient presented to the hospital with sepsis due to suspected pneumonia+/- UTI with acute sepsis related organ dysfunction as evidenced by acute kidney injury and respiratory failure requiring noninvasive positive pressure ventilatory support. Recommend holding on additional IV fluid resuscitation, given underlying concerns for CHF. Continue supportive care with antimicrobials as ordered. 3. Acute on chronic kidney disease Most likely prerenal in etiology in the setting and #2. However, I would avoid additional IV fluid resuscitation over concerns for underlying CHF. Continue current supportive measures for now. Continue to monitor urine output. There is no current indication for renal replacement therapy. 4. Metabolic encephalopathy Secondary to presenting metabolic abnormalities in the setting of #2 coupled with acute hypercapnia, which is slowly improving with noninvasive positive pressure ventilatory support. 5. Acute on chronic anemia The patient has chronic anemia with a slight downward decline and presenting hemoglobin. Continue to monitor H&H for now. Transfuse if hemoglobin drops below 7 g/dL. 6. History of hypertension/atrial fibrillation/diabetes mellitus/unspecified seizure disorder/Parkinson's disease Complicates care, management, recovery and prognosis. Continue supportive measures as noted above. The patient is to remain n.p.o. for now, pending improvement in mental status. TIME: 34 minutes of critical care time, independent of procedures, was spent addressing the patient's acute combined respiratory failure, sepsis, acute on chronic kidney disease, metabolic encephalopathy, acute on chronic anemia, review of all data and collaboration with the care team. HPI Consult Data Date of Consult: 09/25/24 HPI Narrative Reason for Consultation: Hypoxia, encephalopathy, pneumonia HPI Narrative: The patient is a 74-year-old female, with a history as outlined below, who presented to the emergency department on September 25 from her [facility] facility with altered mentation and shortness of breath. History pertinent to her hospitalization was obtained primarily via chart review, as the patient is too encephalopathic to provide any additional details. The patient has a history of hypertension, atrial fibrillation, tachybradycardia syndrome status post pacemaker implantation,, diabetes mellitus, anemia of chronic disease, unspecified seizure disorder and Parkinson's disease. On presentation to the emergency department, the patient was documented to be afebrile and hemodynamically stable. She was initially documented to be saturating 83% on room air. Laboratory evaluation revealed a normal white blood cell count. The patient was anemic with a hemoglobin of 8.7 g/dL. Platelet count was within normal limits. Arterial blood gas was notable for a pH of 7.17 with a pCO2 of 71 and pO2 of 75. Chemistry profile was notable for a potassium of 5.3 and creatinine of 2.32. Lactate was within normal limits. Urine analysis was positive for leukocyte esterase and 2+ urine bacteria. Blood and urine cultures were collected. Chest x-ray demonstrated cardiomegaly with bilateral pleural effusions and a questionable left retrocardiac airspace opacity. The patient was ordered to receive IV fluid resuscitation along with antimicrobials. She was subsequently admitted to the medical intensive care unit for further management. It should be noted that the patient does have signed advanced care paperwork from her [facility] facility indicating her CODE STATUS to be DNR CCA without intubation. At the time of her arrival to the ICU, a repeat ABG was obtained which demonstrated mild improvement on AVAPS therapy with a pH of 7.21 and a pCO2 of 64. [facility] Medical History Parkinsons disease Pacemaker malfunction Chronic UTI S/P extracorporeal shock wave therapy Bladder disease Failure to thrive in adult Glaucoma TBI (traumatic brain injury) Kidney stone Lives in prison Insulin dependent diabetes mellitus Uses wheelchair Walker as ambulation aid Stroke/cerebrovascular accident Syncope Parkinson's disease Dietary restriction Heartburn History of edema History of echocardiogram Cardiology follow-up encounter Anxiety Non-smoker Kidney disease Atrial fibrillation Pacemaker Hypertension Seizures Obesity Type 2 diabetes mellitus Hypertriglyceridemia Chronic kidney disease (CKD) Paroxysmal atrial fibrillation Essential hypertension Dysuria Septic shock Junctional rhythm Tachy-maurizio syndrome Vaginal bleeding Breakthrough seizure HLD (hyperlipidemia) Hypertensive emergency without congestive heart failure Seizure Home Medications ?Medication ?Instructions ?Recorded ?Last Taken ?Type sitagliptin phosphate 50 mg tablet 100 mg PO DAILY DIABETES 11/19/21 01/20/24 History (Januvia) allopurinol 100 mg tablet 100 mg PO DAILY GOUT 12/10/22 01/20/24 History aspirin 81 mg tablet,delayed 81 mg PO DAILY HEART HEALTH 12/10/22 01/20/24 History release (Adult Low Dose Aspirin) alendronate 70 mg tablet 70 mg PO SA BONE HEALTH 06/15/23 01/15/24 History carbidopa 10 mg-levodopa 100 mg 1 tab PO TID PARKINSONS 06/15/23 01/20/24 History tablet citalopram 10 mg tablet 10 mg PO DAILY DEPRESSION 06/15/23 01/20/24 History estradiol 0.01% (0.1 mg/gram) 1 appful vaginal PRECIADO HORMONES 06/15/23 01/16/24 History vaginal cream insulin glargine 100 unit/mL (3 24 unit subcut QHS DIABETES 06/15/23 01/19/24 History mL) subcutaneous pen (Lantus Solostar U-100 Insulin) lacosamide 150 mg tablet 150 mg PO BID EPILEPSY 06/15/23 01/20/24 History clobazam 10 mg tablet 5 mg PO DAILY EPILEPSY 10/12/23 01/19/24 History ferrous sulfate 325 mg (65 mg 325 mg PO QODAY ANEMIA 10/12/23 01/20/24 History iron) tablet,delayed release hydralazine 10 mg tablet 10 mg PO TID BLOOD PRESSURE 10/12/23 01/20/24 History calcium carbonate (Calcium 500) 500 mg PO Q4H PRN GERD 12/14/23 Unknown History insulin lispro 100 unit/mL See Protocol subcut BIDCM DIABETES 12/14/23 01/20/24 History subcutaneous pen pregabalin 150 mg capsule 150 mg PO BID EPILEPSY 12/14/23 01/20/24 History amlodipine 5 mg tablet 5 mg PO QHS BLOOD PRESSURE 12/18/23 01/19/24 History mirtazapine 30 mg tablet 30 mg PO QHS DEPRESSION 12/18/23 01/19/24 History ondansetron HCl 8 mg tablet 8 mg PO Q8H PRN NAUSEA 12/18/23 Unknown History ascorbic acid (vitamin C) 500 mg 500 mg PO DAILY SUPPLEMENT 01/20/24 01/20/24 History tablet cranberry 500 mg capsule 500 mg PO TID UTI PREVENTION 01/20/24 01/20/24 History insulin lispro 100 unit/mL 5 unit subcut DINNER DIABETES 01/20/24 01/19/24 History subcutaneous pen insulin lispro 100 unit/mL 7 unit subcut BID DIABETES 01/20/24 01/20/24 History subcutaneous pen metformin 500 mg tablet 500 mg PO DAILY DIABETES 01/20/24 01/20/24 History acetaminophen 500 mg tablet 1,000 mg (2 x 500 mg) PO Q8H PRN 01/23/24 01/20/24 Rx PRN PAIN/FEVER 30 days #0 tabs sennosides 8.6 mg-docusate sodium 2 tab PO BID #0 tabs 01/23/24 Unknown Rx 50 mg tablet (Stool Softener-Stimulant Laxative) Allergy/AdvReac Type Severity Reaction Status Date / Time amoxicillin (From Augmentin) Allergy Rash Verified 08/24/24 07:22 clavulanic acid (From Allergy Rash Verified 08/24/24 07:22 Augmentin) escitalopram (From Lexapro) Allergy Rash Verified 08/24/24 07:22 shellfish derived Allergy Unknown Verified 08/24/24 07:22 hydroxychloroquine (From AdvReac Severe Unknown Verified 08/24/24 07:22 Plaquenil) house dust AdvReac NEEDS Verified 08/24/24 07:22 FOLLOW-UP perfume AdvReac Unknown Verified 08/24/24 07:22 pineapple AdvReac Rash Verified 08/24/24 07:22 quinine AdvReac Unknown Verified 08/24/24 07:22 strawberry AdvReac Rash Verified 08/24/24 07:22 Sulfa (Sulfonamide AdvReac Unknown Verified 08/24/24 07:22 Antibiotics) Family History Brother Heart disease Hx CABG Hypertension Diabetes Mother Hypertension Surgical History History of permanent cardiac pacemaker placement (11/15/17) History of breast surgery History of hysterectomy Social History household members: spouse Smoking Status: Never smoker alcohol intake: never substance use type: does not use caffeine: No what type of physical activity do you participate in: none seatbelt use: always do you feel safe at home: Yes ROS Review of Systems ROS Unobtainable: due to mental status Physical Exam Const Constitutional Narrative: The patient will arouse transiently to verbal and tactile stimulation and then fall quickly back to sleep. HEENT normocephalic and head/scalp atraumatic Eyes EOMs intact bilaterally and conjunctivae normal Neck supple General: trachea midline Chest inspection of chest normal Resp normal respiratory effort Auscultation: rales and diminished lung sounds Cardio regular rate and regular rhythm GI normal to inspection, nondistended, normoactive bowel sounds Extremity no clubbing, cyanosis or edema Skin no rashes or lesions noted Neuro no focal motor deficits Psych Mood & Affect: flat affect Lab / Micro Data 09/25/24 04:20 09/25/24 04:20 Labs: Laboratory Results - last 24 hr 09/25/24 04:20: WBC 6.6, RBC 2.99 L, Hgb 8.7 L, Hct 28.7 L, MCV 96.0, MCH 29.1, MCHC 30.3 L, RDW Std Deviation 52.3 H, RDW Coeff of Ernesto 15.0 H, Plt Count 155, MPV 11.6, Immature Gran % (Auto) 2.000 H, Neut % (Auto) 72.5 H, Lymph % (Auto) 18.0 L, Parke % (Auto) 6.6, Eos % (Auto) 0.3, Baso % (Auto) 0.6, Absolute Neuts (auto) 4.8, Absolute Lymphs (auto) 1.18, Nucleated RBC % 0.3, Differential Comment SCANNED, PT 13.2, INR 1.0, APTT 21.4 L, Sodium 139, Potassium 5.3 H, C hloride 111 H, Carbon Dioxide 22.0, Anion Gap 6, BUN 60 H, Creatinine 2.32 H, Estim Creat Clear Calc 22.56, Est GFR (MDRD) Af Amer 27 L, Est GFR (MDRD) Non-Af 22 L, BUN/Creatinine Ratio 25.9 H, Glucose 197 H, Lactic Acid 0.5, Calcium 9.4, Total Bilirubin 0.30, AST 28, ALT < 6 L, Alkaline Phosphatase 61, Total Protein 7.3, Albumin 2.4 L, Globulin 4.9 H, Albumin/Globulin Ratio 0.5 L 09/25/24 04:43: Urine Color Yellow, Urine Clarity Cloudy, Urine pH 6.0, Ur Specific Rex 1.020, Urine Protein 500 H, Urine Glucose (UA) Normal, Urine Ketones Negative, Urine Occult Blood 10 H, Urine Nitrite Negative, Urine Bilirubin Negative, Urine Urobilinogen Normal, Ur Leukocyte Esterase 500 H, Urine RBC 0 SEEN, Urine WBC >100 SEEN, Ur Squamous Epith Cells 5-10 SEEN, Urine Bacteria 2+, Urine Mucus 0 SEEN, Urine Yeast RARE Micro: Microbiology 09/25/24 04:35 Mucosa - Nose SARS-CoV-2, Influenza & RSV (PCR) - Final ABG Data ABG results: ABG 09/25/24 09/25/24 06:55 08:18 Specimen Type ART ART Sample Site R Radial R Radial pH 7.17 L* 7.21 L Bicarbonate Actual 25.6 25.5 Total CO2 28 28 Base Excess -3 L -2 O2 Saturation 90 L 95 O2 % 4.0 40.0 ABG pCO2 70.3 H* 64.0 H ABG pO2 75 96 Mao Test Positive Positive Respiration Rate 12 O2 Delivery Device Cannula BiPAP Vent Mode Not entered Not entered Tidal Volume 450.0 POC PEEP 6 Crit Call To/Read Back Yes Yes Blood Gas Notified Whom KITTOE Blood Gas Notified Time 08:19:49 Clinical Comments AVAPS Imaging Radiology Impression Chest X-Ray 09/25/24 05:15 IMPRESSION: 1. Left retrocardiac opacification with some air bronchograms. Differential diagnosis includes pneumonia and edema. 2. Cardiomegaly with bilateral pleural effusions and pulmonary vascular congestion. Electronically Signed: Martin Em MD at 6:49 EST , Charges/Coding Procedures Hospitalists Procedures: [id number] Critical Care 1st Hr
--- NOTE | 2024-09-25 12:33 | ECHOCS_ITS ---
Reason For Study: CHF Procedure This was a 2D Doppler, Color Flow transthoracic echocardiogram. Contrast injection was performed. The study was technically difficult. Exam performed portable in ICU/CCU. Left Ventricle Normal LV size. Mild concentric left ventricular hypertrophy. Left ventricular systolic function is normal. The left ventricular ejection fraction is 55 %. No regional wall motion abnormalities noted. Right Ventricle Normal RV size. ICD or pacer leads identified within the right ventricle. The right ventricle is normal in size, function, and thickness. Atria Normal left atrium. Normal right atrium. Mitral Valve There is mild mitral annular calcification. Mild-Moderate (1-2+) eccentric mitral valve insufficiency. Tricuspid Valve Normal tricuspid valve. Mild to moderate (1-2+) tricuspid valve insufficiency. Pulmonary artery systolic pressure is 44 mmHg. Aortic Valve Trisinus/trileaflet aortic valve. Mild focal aortic valve calcification. Pulmonic Valve Normal pulmonic valve. Great Vessels Normal aortic root. The pulmonary artery is normal size. Inferior vena cava collapse with respiration. Pericardium/Pleural No pericardial effusion. Medication Diluted definity 5ml given slow IV push to enhance endocardial definition. MMode/2D Measurements & Calculations LVIDd: 4.6 cm IVSd: 1.6 cm Ao root diam: 3.8 cm LVIDs: 2.8 cm LVPWd: 1.3 cm RVDd: 3.8 cm FS: 37.9 % LAV(MOD-bp): 83.0 ml LVAd ap4: 35.7 cm2 SV(MOD-sp4): 70.5 ml LAV(MOD-bp) Indexed: 44.9 ml/m2 LVLd ap4: 8.5 cm SI(MOD-sp4): 38.1 ml/m2 LAV(MOD-sp2): 89.7 ml EDV(MOD-sp4): 126.5 ml LAV(MOD-sp4): 76.0 ml EDV(sp4-el): 127.7 ml LVAs ap4: 23.4 cm2 LVLs ap4: 7.9 cm ESV(MOD-sp4): 56.0 ml ESV(sp4-el): 58.6 ml EF(MOD-sp4): 55.7 % EF(sp4-el): 54.1 % SV(sp4-el): 69.1 ml LA A4 area: 24.5 cm2 LA dimension(2D): 4.2 cm RA A4 area: 19.8 cm2 TAPSE: 1.3 cm Time Measurements MV dec time: 0.19 sec Doppler Measurements & Calculations MV E max mp: 119.0 cm/sec Lat Peak E' Mp: 7.2 cm/sec Med Peak E' Mp: 7.3 cm/sec MV A max mp: 24.2 cm/sec E/E' lat: 16.6 E/E' med: 16.4 MV E/A: 4.9 MV V2 max: 133.7 cm/sec MV P1/2t max mp: 134.7 cm/sec Ao V2 max: 161.5 cm/sec MV max P.2 mmHg MV P1/2t: 65.1 msec Ao max P.4 mmHg MV V2 mean: 59.3 cm/sec MV dec slope: 605.9 cm/sec2 Ao V2 mean: 106.3 cm/sec MV mean P.9 mmHg MVA(P1/2t): 3.4 cm2 Ao mean P.3 mmHg MV V2 VTI: 26.7 cm Ao V2 VTI: 26.2 cm AV (velocity ratio): 0.68 LV V1 max: 99.6 cm/sec MR max mp: 500.8 cm/sec TR max mp: 314.9 cm/sec LV V1 max P.0 mmHg MR max P.4 mmHg TR max P.7 mmHg LV V1 mean P.2 mmHg MR mean mp: 408.6 cm/sec LV V1 mean: 68.1 cm/sec MR mean P.7 mmHg LV V1 VTI: 17.7 cm MR VTI: 161.7 cm ECHO/Echo Complete W/ Contrast Interpretation Summary Normal LV size. Left ventricular systolic function is normal. The left ventricular ejection fraction is 55 %. Mild concentric left ventricular hypertrophy. Contrast injection was performed. Ordering Physician: Ronak Espinoza Performed By: Mike Carey RCS
[2024-09-25 12:37] LABS: Bedside Glucose 99 mg/dL (74-106)
[2024-09-25] MEDS: hydrALAZINE 10 MG Tablet PO ×2 (14:02→21:44)
[2024-09-25] MEDS: Furosemide 40 MG/4 ML Vial IV ×2 (14:02→21:46)
[2024-09-25 16:46] LABS: Bedside Glucose 103 mg/dL (74-106)
[2024-09-25] MEDS: Carbidopa/Levodopa 10/100 Tablet PO (17:18)
[2024-09-25] MEDS: Insulin Lispro 100 UNIT/ML INSULN.PEN SC (17:18)
[2024-09-25] MEDS: Budesonide Respules 0.5 MG/2 ML AMPUL.NEB. INHALATION (20:47)
[2024-09-25] MEDS: Lacosamide 50 MG Tablet 150 MG PO (21:44)
[2024-09-25] MEDS: amLODIPine 5 MG Tablet PO (21:44)
[2024-09-25] MEDS: Pregabalin 75 MG Capsule 150 MG PO (21:45)
[2024-09-25] MEDS: Insulin Glargine-YFGN 100 UNIT/ML Pen 24 UNIT SC (21:45)
[2024-09-25] MEDS: Mirtazapine 30 MG Tablet PO (21:45)
[2024-09-25] MEDS: Senna/Docusate Sodium 1 Tablet 2 TABLET PO (21:45)
[2024-09-25 23:19] LABS: Bedside Glucose 121 mg/dL (74-106)
[2024-09-25 23:47] LABS: Procalcitonin 0.08 ng/mL (0.00-0.09)
[2024-09-26] VITALS (13 sets, daily range): BP systolic 113–138; BP diastolic 64–70; PULSE 72–73; RESP 12–18; TEMP 36.6–36.8; O2SAT 89–96; BMI 35.7
[2024-09-26 06:05] LABS: Absolute Neutrophil Count 3.2 X10^3/uL (2.0-7.7); Basophil# 0.04 X10^3/uL; Basophil% 0.7 % (0-1); Eosinophil# 0.09 X10^3/uL; Eosinophils% 1.7 % (0-5); Hematocrit 29.4 % (37-47); Hemoglobin 8.5 g/dL (12.0-15.0); Lymphocyte % 27.6 % (19-41); Mean Corp Hgb Conc 28.9 g/dL (32-36); Mean Corpuscular Hgb 28.4 pg (27.0-32.0); Mean Corpuscular Volume 98.3 fL (81-99); Mean Platelet Vol. 11.6 fl (6.2-12.0); Monocyte# 0.51 X10^3/uL; Monocyte% 9.4 % (0-10); NRBC Flagged by Analyzer 0.4 % (0-5); Neutrophil # 3.22 X10^3/uL (2.7-7.7); Neutrophil % 59.3 % (47-70); Platelet Count 156 K/mm3 (150-450); RBC Distribution Width CV 14.9 % (11.6-14.6); RBC Distribution Width SD 53.4 fl (35.1-43.9); Red Blood Count 2.99 M/mm3 (4.2-5.4); White Blood Count 5.4 K/mm3 (4.4-11.0)
[2024-09-26] MEDS: Furosemide 40 MG/4 ML Vial IV ×3 (06:15→21:40)
[2024-09-26] MEDS: hydrALAZINE 10 MG Tablet PO ×3 (06:15→21:39)
[2024-09-26 06:34] LABS: Anion Gap 4 (5-15); BUN 63 mg/dL (7-18); BUN/Creat Ratio 25.9 RATIO (10-20); Chloride 114 mmol/L (98-107); Creatinine, Serum 2.43 mg/dL (0.55-1.02); EST Glomerular Filtration Rate 21 mL/min (>60); Est Glom Filt Rate - Afr Amer 25 mL/min (>60); Estimated Creatinine Clearance 21.12 ml/min; Glucose 123 mg/dL (74-106); Magnesium 2.3 mg/dL (1.6-2.6); Phosphorus 4.9 mg/dL (2.5-4.9); Sodium Level 143 mmol/L (136-145)
[2024-09-26 06:44] LABS: Bedside Glucose 112 mg/dL (74-106)
[2024-09-26] MEDS: Budesonide Respules 0.5 MG/2 ML AMPUL.NEB. INHALATION ×2 (07:41→20:52)
[2024-09-26] MEDS: Aspirin E.C. 81 MG Tablet PO (08:45)
[2024-09-26] MEDS: Carbidopa/Levodopa 10/100 Tablet PO ×3 (08:45→16:27)
[2024-09-26] MEDS: Citalopram 10 MG Tablet PO (08:45)
[2024-09-26] MEDS: Lacosamide 50 MG Tablet 150 MG PO ×2 (08:46→21:40)
[2024-09-26] MEDS: Pregabalin 75 MG Capsule 150 MG PO ×2 (08:46→21:40)
[2024-09-26] MEDS: Allopurinol 100 MG Tablet PO (08:46)
[2024-09-26] MEDS: Heparin Injection (Vial) 5,000 UNIT/ML VIAL 5000 UNIT SC ×2 (08:47→21:39)
[2024-09-26] MEDS: cloBAZam 10 MG TABLET 5 MG PO (08:48)
--- NOTE | 2024-09-26 08:51 | CASEMGMT ---
Addendum entered by Lainey Esquivel 09/26/24 14:02: [facility]. Lainey Esquivel DC Planning Asst. Addendum entered by Lainey Esquivel 09/26/24 11:36: [facility] would like to skill pt but she is able to return under her [employer] benefits while they wait for precert. Lainey Esquivel DC Planning Asst Original Note: Updates sent to [facility]. Lainey Esquivel DC Planning Asst.
[2024-09-26 09:20] LABS: Bedside Glucose 120 mg/dL (74-106)
[2024-09-26] MEDS: 0.9% Saline Lock 10 ML Syringe IV ×3 (10:14→21:41)
[2024-09-26] MEDS: Ceftriaxone 2 GM in 0.9% Normal Saline (50mL MB+) 50 ML IV (10:14)
--- NOTE | 2024-09-26 10:17 | PCM.PN.HOSP ---
Reason for Visit Reason for Visit: Diagnoses Sepsis, unspecified organism (09/25/24) Pneumonia, unspecified organism (09/25/24) Hypoxemia (09/25/24) Subjective Subjective Patient clinical condition did not improve necessitating patient being transferred from intensive care unit to progressive care unit last evening. Seen this a.m. patient is interactive and back to baseline. Objective Data Objective Data Vital Signs: Vital Signs Temp Pulse Resp BP Pulse Ox O2 Del Method O2 Flow Rate 98.2 F 72 17 138/68 H 92 Nasal Cannula 4 09/26/24 08:23 09/26/24 08:23 09/26/24 08:23 09/26/24 08:23 09/26/24 08:23 09/26/24 09:00 09/26/24 09:00 FiO2 30 09/26/24 03:40 Oxygen Flow Rate (L/min) 4 Oxygen Delivery Method Nasal Cannula Weight: 88.1 kg Body Mass Index (BMI) 35.7 Intake & Output: Intake and Output for Last 24 Hours 09/24/24 09/25/24 09/26/24 23:59 23:59 23:59 Intake Total 1318 / 1318 300 / 300 Output Total 750 / 1200 750 / 750 Balance 568 / 118 -450 / -450 Lab / Micro Data 09/26/24 05:28 09/26/24 05:28 Labs: Laboratory Results - last 24 hr 09/25/24 04:20: B-Natriuretic Peptide 190.0 H, Procalcitonin 0.08 09/25/24 12:18: POC Glucose 99 09/25/24 16:26: POC Glucose 103 09/25/24 21:31: POC Glucose 121 H 09/26/24 05:28: WBC 5.4, RBC 2.99 L, Hgb 8.5 L, Hct 29.4 L, MCV 98.3, MCH 28.4, MCHC 28.9 L, RDW Std Deviation 53.4 H, RDW Coeff of Ernesto 14.9 H, Plt Count 156, MPV 11.6, Immature Gran % (Auto) 1.300 H, Neut % (Auto) 59.3, Lymph % (Auto) 27.6, Benson % (Auto) 9.4, Eos % (Auto) 1.7, Baso % (Auto) 0.7, Absolute Neuts (auto) 3.2, Absolute Lymphs (auto) 1.50, Nucleated RBC % 0.4, Sodium 143, Potassium 5.0, Chloride 114 H, Carbon Dioxide 25.0, Anion Gap 4 L, BUN 63 H, Creatinine 2.43 H, Estim Creat Clear Calc 21.12, Est GFR (MDRD) Af Amer 25 L, Est GFR (MDRD) Non-Af 21 L, BUN/Creatinine Ratio 25.9 H, Glucose 123 H, Calcium 9.0, Phosphorus 4.9, Magnesium 2.3 09/26/24 06:12: POC Glucose 112 H 09/26/24 08:42: POC Glucose 120 H Micro: Microbiology 09/25/24 04:43 Urine Catheter - Dickson Urine Culture - Preliminary Mixed Gram Positive Organisms 09/25/24 14:50 Urine Catheter - Catheter Legionella Antigen - Final 09/25/24 14:50 Urine Catheter - Catheter Streptococcus pneumoniae Antigen (M - Final 09/25/24 08:07 Mucosa - Nasopharyngeal Respiratory Panel (PCR) - Final 09/25/24 04:35 Mucosa - Nose SARS-CoV-2, Influenza & RSV (PCR) - Final Radiography Diagnostic Testing: Radiology Impression Echocardiogram 09/25/24 12:33 Interpretation Summary Normal LV size. Left ventricular systolic function is normal. The left ventricular ejection fraction is 55 %. Mild concentric left ventricular hypertrophy. Contrast injection was performed. Ordering Physician: Ronak Espinoza Performed By: Mike Carey RCS Physical Exam Narrative GENERAL: cooperative HEENT: Atraumatic; normocephalic EYES; Anicteric, Normal Conjunctiva NECK; supple, normal thyroid, RESPIRATORY: Diminished to auscultation CARDIOVASCULAR: Regular S1 S2, GI: soft, normoactive bowel sounds, : No Renal angle tenderness; EXTREMITIES: No edema, no clubbing, MUSCULOSKELETAL: no muscle wasting NEURO: Awake; no lateralizing signs. SKIN: No Rash PSYCH; Flat affect Assessment & Plan Assessment/Plan (1) Hypoxia: (2) Pneumonia: PLAN: Plan Patient is a 74-year-old lady with multiple comorbidities who was admitted with altered mental status as well as hypoxia. Imaging studies obtained on admission demonstrated left lower lobe infiltrate. An assessment of acute encephalopathy secondary to acute hypoxic respiratory failure made patient admitted to the intensive care unit for further management 1. Acute metabolic encephalopathy ? Secondary to acute hypoxic respiratory failure from pneumonia, acute cystitis as well as congestive heart failure admitted to the intensive care unit for subsequent management ? 09/26/2024; encephalopathy resolved 2. Acute hypoxic respiratory failure ? Secondary to left lower lobe pneumonia. Imaging studies obtained on admission did show Left retrocardiac opacification with some air bronchograms. Patient was placed on noninvasive ventilation BiPAP ? 09/26/2024; weaned off BiPAP and subsequently transferred to the progressive care unit 3. Acute congestive heart failure with preserved ejection fraction ? Echo from 06/28/2023 from an outside hospital demonstrated RVSP of 31 mmHg and estimated EF of 59%. Patient was placed on fluid restriction, strict input and output, daily weight, low-sodium diet as well as diuretic therapy. Repeat echo ordered for subsequent ? 09/26/2024; patient is in negative fluid balance. Will decrease patient's Lasix dose given worsening kidney found 4. Acute kidney injury ? Superimposed on chronic kidney disease stage III baseline 1.59 from 09/14/2024. Multifactorial including suspected hypoperfusion from CHF monitoring with daily BMPs ? 09/26/2024; no improvement in patient kidney function decreased Lasix dose 5. Hyperkalemia ? Secondary to impaired kidney function treatment initiated per protocol. Patient admitted to a monitored bed. Response to therapy being monitored with repeat BMP. Patient is on trimethoprim discontinued given the hyperkalemia ? 09/26/2024; potassium down to 5.0 6.? Acute cystitis ? Patient started on ceftriaxone urine culture sent ? 09/26/2024 urine cultures came back mixed gram-positive organisms antibiotics subsequently discontinued 7. Pneumonia - Suspected to be secondary to streptococcal pneumonia, Blood and sputum cultures sent. Patient placed on Rocephin and Zithromax and placed on oxygen titrated to keep Pulse Ox greater than 90 8. Anemia - Secondary to chronic disorder monitoring H&H and transfuse if patient becomes symptomatic or hemoglobin falls below? 7 9.? Benign essential hypertension - Blood pressure controlled, home medications continued with dose adjustment as needed 10.? Diabetes mellitus type II -patient's oral hypoglycemics held. Placed on long acting insulin, Accu-Cheks a.c. and at bedtime and covered with sliding scale insulin 11.? Seizure disorder ? Did continue patient antiseizure medications 12.? Paroxysmal A. fib ?Rate controlled.? Patient not on systemic anticoagulation 13.? Tachybradycardia syndrome ? Status post pacemaker placement 14.? Obesity with BMI of 35.1 ? Plan is to licensed mental health counselor patient on weight reduction when her encephalopathy improves 15. Parkinson's disease ? Patient is on carbidopa levodopa did continue 16. Depression with anxiety ? Patient is on citalopram continue 17. Gout ? Patient's allopurinol continued 18. DVT prophylaxis SC heparin Time spent in the patient's overall evaluation,decision-making process, review of diagnostic data, adjustment of management, discussion with other providers, nursing nursing and ancillary staff involved in patient's care documentation, 50 minutes Charges/Coding Visit Charges Inpatient E&M: 82273 [facility] H[facility] L3
[2024-09-26] MEDS: Azithromycin 500 MG in 0.9% Normal Saline (250mL Bag) 250 ML 255 MG IV (11:00)
--- NOTE | 2024-09-26 11:09 | CASEMGMT ---
SW met with patient. Introduced self and role at [facility]. Patient confirmed her plan is to return to [facility] at discharge. Aleksandra CONROY
[2024-09-26 12:10] LABS: Bedside Glucose 132 mg/dL (74-106)
[2024-09-26 16:49] LABS: Bedside Glucose 124 mg/dL (74-106)
[2024-09-26] MEDS: Acetaminophen 325 MG Tablet 650 MG PO (18:29)
[2024-09-26] MEDS: Albuterol 2.5 MG/3 ML VIAL.NEB. INHALATION (20:53)
[2024-09-26] MEDS: Insulin Glargine-YFGN 100 UNIT/ML Pen 24 UNIT SC (21:40)
[2024-09-26] MEDS: amLODIPine 5 MG Tablet PO (21:40)
[2024-09-26] MEDS: Mirtazapine 30 MG Tablet PO (21:40)
[2024-09-26] MEDS: Senna/Docusate Sodium 1 Tablet 2 TABLET PO (21:40)
[2024-09-26 22:17] LABS: Bedside Glucose 132 mg/dL (74-106)
[2024-09-27] VITALS (10 sets, daily range): BP systolic 124–137; BP diastolic 68–81; PULSE 70–79; RESP 16–20; TEMP 36.1–36.8; O2SAT 86–96; BMI 35.7
--- NOTE | 2024-09-27 03:17 | CPS ---
Pt did not want to wear bipap tonight if she doesn't have too. Pt still on nasal O2. resting comfortably
[2024-09-27] MEDS: hydrALAZINE 10 MG Tablet PO ×2 (06:18→14:12)
[2024-09-27] MEDS: Furosemide 40 MG/4 ML Vial IV ×2 (06:18→14:12)
[2024-09-27 06:34] LABS: Absolute Lymphocyte Count 1.76 X10^3/uL (0.83-4.51); Absolute Neutrophil Count 3.4 X10^3/uL (2.0-7.7); Basophil# 0.05 X10^3/uL; Basophil% 0.8 % (0-1); Eosinophil# 0.17 X10^3/uL; Eosinophils% 2.8 % (0-5); Hematocrit 28.8 % (37-47); Hemoglobin 8.6 g/dL (12.0-15.0); Lymphocyte # 1.76 X10^3/ul (0.83-4.51); Lymphocyte % 28.9 % (19-41); Mean Corp Hgb Conc 29.9 g/dL (32-36); Mean Corpuscular Hgb 28.6 pg (27.0-32.0); Mean Corpuscular Volume 95.7 fL (81-99); Monocyte# 0.66 X10^3/uL; Monocyte% 10.8 % (0-10); NRBC Flagged by Analyzer 0.5 % (0-5); Neutrophil % 55.9 % (47-70); Platelet Count 153 K/mm3 (150-450); RBC Distribution Width CV 15.3 % (11.6-14.6); RBC Distribution Width SD 52.8 fl (35.1-43.9); Red Blood Count 3.01 M/mm3 (4.2-5.4); White Blood Count 6.1 K/mm3 (4.4-11.0)
[2024-09-27 06:50] LABS: Bedside Glucose 146 mg/dL (74-106)
[2024-09-27 06:52] LABS: Anion Gap 9 (5-15); BUN 70 mg/dL (7-18); BUN/Creat Ratio 27.1 RATIO (10-20); Chloride 109 mmol/L (98-107); Creatinine, Serum 2.58 mg/dL (0.55-1.02); EST Glomerular Filtration Rate 19 mL/min (>60); Est Glom Filt Rate - Afr Amer 23 mL/min (>60); Glucose 149 mg/dL (74-106); Potassium 4.5 mmol/L (3.5-5.1); Sodium Level 142 mmol/L (136-145)
[2024-09-27] MEDS: Albuterol 2.5 MG/3 ML VIAL.NEB. INHALATION (07:22)
[2024-09-27] MEDS: Budesonide Respules 0.5 MG/2 ML AMPUL.NEB. INHALATION ×2 (07:22→19:52)
[2024-09-27] MEDS: Citalopram 10 MG Tablet PO (09:59)
[2024-09-27] MEDS: Allopurinol 100 MG Tablet PO (09:59)
[2024-09-27] MEDS: Senna/Docusate Sodium 1 Tablet 2 TABLET PO (09:59)
[2024-09-27] MEDS: Aspirin E.C. 81 MG Tablet PO (09:59)
[2024-09-27] MEDS: Ferrous Sulfate 325 MG Tablet PO (09:59)
[2024-09-27] MEDS: Carbidopa/Levodopa 10/100 Tablet PO ×3 (09:59→17:19)
[2024-09-27] MEDS: Ceftriaxone 2 GM in 0.9% Normal Saline (50mL MB+) 50 ML IV (10:01)
[2024-09-27] MEDS: Lacosamide 50 MG Tablet 150 MG PO (10:15)
[2024-09-27] MEDS: Pregabalin 75 MG Capsule 150 MG PO (10:15)
[2024-09-27] MEDS: Insulin Lispro 100 UNIT/ML INSULN.PEN 7 UNIT SC ×2 (10:17→12:55)
[2024-09-27] MEDS: Heparin Injection (Vial) 5,000 UNIT/ML VIAL 5000 UNIT SC (10:17)
[2024-09-27] MEDS: cloBAZam 10 MG TABLET 5 MG PO (10:24)
[2024-09-27] MEDS: Azithromycin 500 MG in 0.9% Normal Saline (250mL Bag) 250 ML 255 MG IV (10:48)
--- NOTE | 2024-09-27 11:10 | TREXTCAR_ITS ---
Diet Diet Order/Speech Therapy: 09/25/24 14:32 Diet: Carbohydrate Controlled Routine Orders/Code Status Suppository Type: Dulcolax 10mg Suppository Frequency: Daily PRN DC O2, CPAP, BIPAP needs Home O2 Discharge instructions: Yes Type of respiratory needs?: Oxygen (3 liters per minute) Oxygen frequency: Continuous Continuous oxygen liters per minute: 3 Therapies Extremity Affected:: Bilateral Lower Physical Therapy: Eval and Treat Occupational Therapy: Eval and Treat Speech Therapy: Eval and Treat Problem/Diagnosis (1) Hypoxia: Status: Acute Code(s): R09.02 - Hypoxemia (2) Pneumonia: Status: Acute Code(s): J18.9 - Pneumonia, unspecified organism Allergies/Procedures Done in Hospital Allergies amoxicillin (From Augmentin) Allergy (Verified 08/24/24 07:22) Rash RASH ON FACE clavulanic acid (From Augmentin) Allergy (Verified 08/24/24 07:22) Rash RASH ON FACE escitalopram (From Lexapro) Allergy (Verified 08/24/24 07:22) Rash shellfish derived Allergy (Verified 08/24/24 07:22) Unknown hydroxychloroquine (From Plaquenil) Adverse Reaction (Severe, Verified 08/24/24 07:22) Unknown house dust Adverse Reaction (Verified 08/24/24 07:22) NEEDS FOLLOW-UP perfume Adverse Reaction (Verified 08/24/24 07:22) Unknown pineapple Adverse Reaction (Verified 08/24/24 07:22) Rash quinine Adverse Reaction (Verified 08/24/24 07:22) Unknown strawberry Adverse Reaction (Verified 08/24/24 07:22) Rash Sulfa (Sulfonamide Antibiotics) Adverse Reaction (Verified 08/24/24 07:22) Unknown Type of Care/Length of Stay Estimated LOS: Convalescent Care Less Than 30 days Type of Care Needed: Skilled Rehab Potential: Good Prognosis: Good Additional Orders/Day of Discharge Day of Discharge: 09/27/24 Dietary and Speech Recommendations Dietitian Recommendations/Changes: PO to be establishes, will continue liberal consistent carbohydrate diet as order and further restrict diet to cardiac; 1600 calorie controlled/consistent carbohydrate diet. Will discuss nutrition questions with pt, when alert and oriented. Will monitor weight trends. Reviewed and approved by Marni Avalos MS, RDN, LD. Discharge Plan Admission Admit Date/Time: 09/25/24 06:29 Primary Reason for Your Visit: Sepsis due to pneumonia/UTI Attending Provider: Aly Randhawa Primary Care Provider: Rhonda Castro,Royal Consulting Providers: Cortney Akers; Jared Yung; Howie Elliott; Silver Watson; Washington Del Angel; Ronak Em; Ramses Sierra; London Roman; Ksenia Avelar; Ede Belle; Jaquan Chisholm; Juni Perez; Elana Gold; Beba aVlentine; Tripp Middleton; Aldair Bob; Daniel Blakely; Theodore Omalley; Braulio Argueta; Sanjuana Mcdermott; Benji Roberts; Víctor Rivera; Ady Montenegro; Ronak Espinoza Discharge Orders/Prescriptions Prescriptions: New levofloxacin 500 mg tablet 500 mg PO Q48H 5 Days Qty: 3 0RF furosemide [Lasix] 40 mg tablet 40 mg PO BID Qty: 60 0RF Continued allopurinol 100 mg tablet 100 mg PO DAILY aspirin [Adult Low Dose Aspirin] 81 mg tablet,delayed release (DR/EC) 81 mg PO DAILY clobazam 10 mg tablet 5 mg PO DAILY ferrous sulfate 325 mg (65 mg iron) tablet,delayed release (DR/EC) 325 mg PO QODAY hydralazine 10 mg tablet 10 mg PO TID alendronate 70 mg tablet 70 mg PO SA carbidopa-levodopa 10-100 mg tablet 1 tab PO TID citalopram 10 mg tablet 10 mg PO DAILY estradiol 0.01 % (0.1 mg/gram) cream 1 appful VAGINAL PRECIADO insulin glargine [Lantus Solostar U-100 Insulin] 100 unit/mL (3 mL) insulin pen 24 unit SUBCUT QHS lacosamide 150 mg tablet 150 mg PO BID insulin lispro 100 unit/mL insulin pen See Protocol subcut BIDCM Protocol: 6. Sliding Scale Insulin Custom Condition: mg/dl range Dose/Route: Number of Units Condition: 151-200 Dose/Route: 1 Condition: 201-250 Dose/Route: 2 Condition: 251-300 Dose/Route: 3 Condition: 301-350 Dose/Route: 4 Condition: 351-400 Dose/Route: 5 Instruction: CALL IF >350 Protocol Text: Custom Sliding Scale Rx Instructions: CALL MD IF <50 OR > 350 pregabalin 150 mg capsule 150 mg PO BID calcium carbonate [Calcium 500] 500 mg calcium (1,250 mg) tablet,chewable 500 mg PO Q4H PRN (Reason: GERD) amlodipine 5 mg tablet 5 mg PO QHS mirtazapine 30 mg tablet 30 mg PO QHS ondansetron HCl 8 mg tablet 8 mg PO Q8H PRN (Reason: NAUSEA ) insulin lispro 100 unit/mL insulin pen 5 unit subcut DINNER Rx Instructions: INJECT 5 UNITS SUBCUTANEOUSLY ONE TIME A DAY FOR DM. HUMALOG. SUPPER DOSE. GIVE IN ADDITION TO SLIDING SCALE INSULIN. ascorbic acid (vitamin C) 500 mg tablet 500 mg PO DAILY insulin lispro 100 unit/mL insulin pen 7 unit subcut BID cranberry 500 mg capsule 500 mg PO TID sennosides-docusate sodium [Stool Softener-Stimulant Laxat] 8.6-50 mg Tablet 2 tab PO BID Qty: 0 0RF acetaminophen 500 mg tablet 1,000 mg PO Q8H PRN PRN (Reason: PAIN/FEVER) 30 Days Qty: 0 0RF Held Januvia 50 mg Tablet 100 mg PO DAILY Hold Instructions: Hold for 1 week. metformin 500 mg tablet 500 mg PO DAILY Hold Instructions: Hold for 1 week Referrals / Follow Up: Royal Ellis Sr., DO [Primary Care Provider] - Within 2 Weeks Cleveland Hector MD [Med Staff - Consulting] - Within 1 Month Hannah Riggs DO [Med Staff - Installation And Repair Technician] - Yasmin Aiken PA [Med Staff - Adv Practice Prof] - Within 2 Weeks Disposition Disposition (needs filled in before D/C Order can be placed): [facility]
[2024-09-27 12:21] LABS: Bedside Glucose 196 mg/dL (74-106)
[2024-09-27] MEDS: Insulin Lispro 100 UNIT/ML INSULN.PEN SC (12:56)
[2024-09-27] MEDS: 0.9% Saline Lock 10 ML Syringe IV (14:13)
--- NOTE | 2024-09-27 14:16 | DS.PCM_ITS ---
Providers Date of Admission: 09/25/24 Date of Discharge: 09/27/24 Primary Care Physician: Dr. Royal Ellis Sr., DO Consultations 09/25/24 08:21 Consult: Set Illustrator / Pulmonary Medicine Routine Consulting Provider: Intensivists/Pulmonary Med Reason for Consult: Hypoxic, Encephalopathy, PNA EMERGENT Consult: No MD Notified: Yes Date Notified: 09/25/24 Time Notified: 07:00 Method of Notification: Text Reason For Visit: HYPOXIA, PNA, UTI, CHETNA Diagnosis Discharge Diagnosis (1) Hypoxia: Status: Acute Code(s): R09.02 - Hypoxemia (2) Pneumonia: Status: Acute Code(s): J18.9 - Pneumonia, unspecified organism Medications at Discharge Home Medications sitagliptin phosphate 50 mg tablet (Januvia) 100 mg PO DAILY DIABETES 11/19/21 allopurinol 100 mg tablet 100 mg PO DAILY GOUT 12/10/22 aspirin 81 mg tablet,delayed release (Adult Low Dose Aspirin) 81 mg PO DAILY HEART HEALTH 12/10/22 alendronate 70 mg tablet 70 mg PO BONE HEALTH 06/15/23 carbidopa 10 mg-levodopa 100 mg tablet 1 tab PO TID PARKINSONS 06/15/23 citalopram 10 mg tablet 10 mg PO DAILY DEPRESSION 06/15/23 estradiol 0.01% (0.1 mg/gram) vaginal cream 1 appful vaginal PRECIADO HORMONES 06/15/23 insulin glargine 100 unit/mL (3 mL) subcutaneous pen (Lantus Solostar U-100 Insulin) 24 unit subcut QHS DIABETES 06/15/23 lacosamide 150 mg tablet 150 mg PO BID EPILEPSY 06/15/23 clobazam 10 mg tablet 5 mg PO DAILY EPILEPSY 10/12/23 ferrous sulfate 325 mg (65 mg iron) tablet,delayed release 325 mg PO QODAY ANEMIA 10/12/23 hydralazine 10 mg tablet 10 mg PO TID BLOOD PRESSURE 10/12/23 calcium carbonate (Calcium 500) 500 mg PO Q4H PRN GERD 12/14/23 insulin lispro 100 unit/mL subcutaneous pen See Protocol subcut BIDCM DIABETES 12/14/23 pregabalin 150 mg capsule 150 mg PO BID EPILEPSY 12/14/23 amlodipine 5 mg tablet 5 mg PO QHS BLOOD PRESSURE 12/18/23 mirtazapine 30 mg tablet 30 mg PO QHS DEPRESSION 12/18/23 ondansetron HCl 8 mg tablet 8 mg PO Q8H PRN NAUSEA 12/18/23 ascorbic acid (vitamin C) 500 mg tablet 500 mg PO DAILY SUPPLEMENT 01/20/24 cranberry 500 mg capsule 500 mg PO TID UTI PREVENTION 01/20/24 insulin lispro 100 unit/mL subcutaneous pen 5 unit subcut DINNER DIABETES 01/20/24 insulin lispro 100 unit/mL subcutaneous pen 7 unit subcut BID DIABETES 01/20/24 metformin 500 mg tablet 500 mg PO DAILY DIABETES 01/20/24 acetaminophen 500 mg tablet 1,000 mg (2 x 500 mg) PO Q8H PRN PRN PAIN/FEVER 30 days #0 tabs 01/23/24 sennosides 8.6 mg-docusate sodium 50 mg tablet (Stool Softener-Stimulant Laxative) 2 tab PO BID #0 tabs 01/23/24 furosemide 40 mg tablet (Lasix) 40 mg PO BID #60 tabs 09/27/24 levofloxacin 500 mg tablet 500 mg PO Q48H 5 days #3 tabs 09/27/24 Hospital Course Summary of Care Provided Hospital Course: Patient is a 74-year-old lady with multiple comorbidities who was admitted with altered mental status as well as hypoxia. Imaging studies obtained on admission demonstrated left lower lobe infiltrate. An assessment of acute encephalopathy secondary to acute hypoxic respiratory failure made patient admitted to the intensive care unit for further management. 1. Acute metabolic encephalopathy ? Secondary to acute hypoxic respiratory failure from pneumonia, acute cystitis as well as congestive heart failure admitted to the intensive care unit for subsequent management ? 09/26/2024; encephalopathy resolved 2. Acute hypoxic respiratory failure with hypoxia and hypercarbia probably secondary to sepsis from pneumonia ? Secondary to left lower lobe pneumonia. Imaging studies obtained on admission did show Left retrocardiac opacification with some air bronchograms. Patient was placed on noninvasive ventilation BiPAP Set Illustrator was consulted and was seen on 09/25. Weaned off BiPAP and subsequently transferred to the progressive care unit. 09/27: The patient presented with sepsis with clinical indicators of tachypnea, hypoxia due to left upper lobe pneumonia from left upper lobe with acute sepsis- related organ dysfunction as evidenced by acute kidney injury and acute combined respiratory failure requiring noninvasive pressure ventilatory support. Patient on ceftriaxone since admission. Discharged on 5 more days of levofloxacin to complete a total of 8 days of antibiotic 3. Acute congestive heart failure with preserved ejection fraction ? Echo from 06/28/2023 from an outside hospital demonstrated RVSP of 31 mmHg and estimated EF of 59%. Patient was placed on fluid restriction, strict input and output, daily weight, low-sodium diet as well as diuretic therapy. Repeat echo ordered for subsequent ? 09/26/2024; patient is in negative fluid balance. Will decrease patient's Lasix dose given worsening kidney found 09/27: Patient had echo which shows EF 55% with normal LV systolic function, mild concentric LVH. Has a pacemaker. RV normal in size function and thickness. 4. Acute kidney injury ? Superimposed on chronic kidney disease stage III baseline 1.59 from 09/14/2024. Multifactorial including suspected hypoperfusion from CHF monitoring with daily BMPs ? 09/26/2024; no improvement in patient kidney function decreased Lasix dose 09/27: Creatinine 2.58. IV Lasix changed to oral Lasix. Her baseline has been about 1.8-2.2. Follow-up with tax senior associate. 5. Hyperkalemia ? Secondary to impaired kidney function treatment initiated per protocol. Patient admitted to a monitored bed. Response to therapy being monitored with repeat BMP. Patient is on trimethoprim discontinued given the hyperkalemia ? 09/26/2024; potassium down to 5.0 09/18 and hyperkalemia resolved. 6.? UTI ruled out ? Patient started on ceftriaxone urine culture sent ? 09/26/2024 urine cultures came back mixed gram-positive organisms therefore UTI ruled out 7. Pneumonia - Suspected to be secondary to streptococcal pneumonia, Blood and sputum cultures sent. Patient placed on Rocephin and Zithromax and placed on oxygen titrated to keep Pulse Ox greater than 90 8. Anemia - Secondary to chronic disorder monitoring H&H and transfuse if patient becomes symptomatic or hemoglobin falls below? 7 9.? Benign essential hypertension - Blood pressure controlled, home medications continued with dose adjustment as needed 10.? Diabetes mellitus type II -patient's oral hypoglycemics held. Placed on long acting insulin, Accu-Cheks a.c. and at bedtime and covered with sliding scale insulin 11.? Seizure disorder ? Did continue patient antiseizure medications 12.? Paroxysmal A. fib ?Rate controlled.? Patient not on systemic anticoagulation 13.? Tachybradycardia syndrome ? Status post pacemaker placement 14.? Obesity with BMI of 35.1 ? Plan is to herb counselor patient on weight reduction when her encephalopathy improves 15. Parkinson's disease ? Patient is on carbidopa levodopa did continue 16. Depression with anxiety ? Patient is on citalopram continue 17. Gout ? Patient's allopurinol continued 18. DVT prophylaxis SC heparin Discharge medication reconciliation done. Discharge follow-up instructions completed. Discharge process discussed with the patient and all questions were answered to patient's satisfaction. Follow with PCP in 1 to 2 weeks Total time spent, exact 35 minutes on discharge meds reconciliation, examination, coordination of care with nurses and ancillary staff, review of imaging and blood test and discussion with the patient on follow-up instructions. Physical Exam Narrative Seen and examined. General: Alert, Oriented x3, Cooperative HEENT: Atraumatic, PERRLA, EOMI, Normocephalic Oral: No Gingival or Mucosal Lesions/ Ulcerations Neck: Supple, No JVD, Negative Carotid Bruits Chest wall/Lungs: Air entry diminished in bilateral lung bases. No crepitation/rhonchi. On 3 L of oxygen Cardiovascular: Regular rate, Regular Rhythm, Normal S1, Normal S2, No M/G/R. His pacemaker Abdomen: Bowel Sounds Present, Soft, Non Tender, Non-Distended : No dysuria. No renal angle tenderness. No suprapubic tenderness. Extremities: Mild edema, Capillary Refill Less than 3 Seconds Skin: No rashes, No breakdown Musculoskeletal: No Tenderness to Palpation of Joints or Extremities Neurological: Cranial nerves II-XII grossly intact, DTR 2+/4. No acute focal neurological deficit. Psych/Mental Status: Flat affect Weight / BMI Weight Weight: 194 lb 7.163 oz Body Mass Index (BMI) 35.7 ABG / Lab / Microbiology Data 09/27/24 06:05 09/27/24 06:05 Laboratory: Laboratory Results - last 24 hr 09/26/24 16:26: POC Glucose 124 H 09/26/24 21:34: POC Glucose 132 H 09/27/24 06:05: WBC 6.1, RBC 3.01 L, Hgb 8.6 L, Hct 28.8 L, MCV 95.7, MCH 28.6, MCHC 29.9 L, RDW Std Deviation 52.8 H, RDW Coeff of Ernesto 15.3 H, Plt Count 153, MPV 11.0, Immature Gran % (Auto) 0.800, Neut % (Auto) 55.9, Lymph % (Auto) 28.9, Grant % (Auto) 10.8 H, Eos % (Auto) 2.8, Baso % (Auto) 0.8, Absolute Neuts (auto) 3.4, Absolute Lymphs (auto) 1.76, Nucleated RBC % 0.5, Sodium 142, Potassium 4.5, Chloride 109 H, Carbon Dioxide 24.0, Anion Gap 9, BUN 70 H, Creatinine 2.58 H, Estim Creat Clear Calc 19.90, Est GFR (MDRD) Af Amer 23 L, Est GFR (MDRD) Non-Af 19 L, BUN/Creatinine Ratio 27.1 H, Glucose 149 H, Calcium 9.0 09/27/24 06:17: POC Glucose 146 H 09/27/24 11:58: POC Glucose 196 H Microbiology: Microbiology 09/25/24 04:43 Urine Catheter - Dickson Urine Culture - Preliminary GPC Poss Enterococcus sp Yeast, not Sandy albicans 09/25/24 04:35 Blood Culture (Wb) - Anticubital Right Blood Culture - Preliminary No growth in 48 hours. 09/25/24 04:20 Blood Culture (Wb) - Right Hand Blood Culture - Preliminary No growth in 48 hours. 09/25/24 14:50 Urine Catheter - Catheter Legionella Antigen - Final 09/25/24 14:50 Urine Catheter - Catheter Streptococcus pneumoniae Antigen (M - Final 09/25/24 08:07 Mucosa - Nasopharyngeal Respiratory Panel (PCR) - Final 09/25/24 04:35 Mucosa - Nose SARS-CoV-2, Influenza & RSV (PCR) - Final D/C Instructions DC O2, CPAP, BIPAP Needs RN Home O2 Qualification: Home O2 Qualification: Is the patient on home oxygen No 09/27/24 14:17 Home O2 Qualification: AT REST 1- Pulse Ox at rest 86 09/27/24 14:17 2- Pulse Ox at rest 93 09/27/24 14:17 2- Oxygen Flow Rate at rest 2 09/27/24 14:17 Home O2 Qualification: WITH AMBULATION 1- Pulse Ox with ambulation 92 09/27/24 14:17 1- Oxygen Flow Rate with 2 09/27/24 14:17 ambulation PSN CPAP & BiPAP: BiPAP & CPAP Settings per PSN Mode AVAPS 09/26/24 03:40 Bipap Delivery Device Face Mask 09/26/24 03:40 BiPAP Expiratory Pressure 6 09/26/24 03:40 BiPAP Rate 12 09/26/24 03:40 Fraction of Inspired Oxygen ( 30 09/26/24 03:40 FIO2) Home O2 Discharge instructions: Yes Type of respiratory needs?: Oxygen (3 liters per minute) Oxygen frequency: Continuous Continuous oxygen liters per minute: 3 DC home with Oxygen: Yes Home O2 MD Review: I have reviewed the oxygen testing, and the patient qualifies for home oxygen equipment and portability. The patient is mobile in the home and the community. Meaningful Use Info Meaningful Use Meaningful Use Diagnoses (Choose all that apply): None applicable Ischemic Stroke Statin Dosing Therapy Reference: STATIN DOSE THERAPY REFERENCE: * Patients > 75 years receive moderate or high dose statin therapy. * Patients 75 years or YOUNGER should receive HIGH intensity statin dose unless contraindicated. You will be required to document reason for non-treatment if statin daily dose does not meet guidelines. HIGH DOSE STATIN THERAPY DAILY Atorvastatin > than or = to 40 mg Rosuvastatin > than or = to 20 mg Amlodipine + Atorvastatin > than or = to 2.5/40 mg Ezetimibe + Simvastatin 10/80 mg Simvastatin 80mg Discharge Plan Admission Admit Date/Time: 09/25/24 06:29 Primary Reason for Your Visit: Sepsis due to pneumonia/UTI Attending Provider: Aly Randhawa Primary Care Provider: Rhonda Castro,Royal Consulting Providers: Cortney Akers; Jared Yung; Howie Elliott; Silver Watson; [place] Del Angel; Ronak Em; Ramses Sierra; London Roman; Ksenia Avelar; Ede Belle; Jaquan Chisholm; Juni Perez; Elana Gold; Beba Valentine; Tripp Middleton; Aldair Bob; Daniel Blakely; Theodore Omalley; Braulio Argueta; Sanjuana Mcdermott; Benji Roberts; Víctor Rivera; Ady Montenegro; Ronak Espinoza Discharge Orders/Prescriptions Prescriptions: New levofloxacin 500 mg tablet 500 mg PO Q48H 5 Days Qty: 3 0RF furosemide [Lasix] 40 mg tablet 40 mg PO BID Qty: 60 0RF Continued allopurinol 100 mg tablet 100 mg PO DAILY aspirin [Adult Low Dose Aspirin] 81 mg tablet,delayed release (DR/EC) 81 mg PO DAILY clobazam 10 mg tablet 5 mg PO DAILY ferrous sulfate 325 mg (65 mg iron) tablet,delayed release (DR/EC) 325 mg PO QODAY hydralazine 10 mg tablet 10 mg PO TID alendronate 70 mg tablet 70 mg PO SA carbidopa-levodopa 10-100 mg tablet 1 tab PO TID citalopram 10 mg tablet 10 mg PO DAILY estradiol 0.01 % (0.1 mg/gram) cream 1 appful VAGINAL PRECIADO insulin glargine [Lantus Solostar U-100 Insulin] 100 unit/mL (3 mL) insulin pen 24 unit SUBCUT QHS lacosamide 150 mg tablet 150 mg PO BID insulin lispro 100 unit/mL insulin pen See Protocol subcut BIDCM Protocol: 6. Sliding Scale Insulin Custom Condition: mg/dl range Dose/Route: Number of Units Condition: 151-200 Dose/Route: 1 Condition: 201-250 Dose/Route: 2 Condition: 251-300 Dose/Route: 3 Condition: 301-350 Dose/Route: 4 Condition: 351-400 Dose/Route: 5 Instruction: CALL IF >350 Protocol Text: Custom Sliding Scale Rx Instructions: CALL MD IF <50 OR > 350 pregabalin 150 mg capsule 150 mg PO BID calcium carbonate [Calcium 500] 500 mg calcium (1,250 mg) tablet,chewable 500 mg PO Q4H PRN (Reason: GERD) amlodipine 5 mg tablet 5 mg PO QHS mirtazapine 30 mg tablet 30 mg PO QHS ondansetron HCl 8 mg tablet 8 mg PO Q8H PRN (Reason: NAUSEA ) insulin lispro 100 unit/mL insulin pen 5 unit subcut DINNER Rx Instructions: INJECT 5 UNITS SUBCUTANEOUSLY ONE TIME A DAY FOR DM. HUMALOG. SUPPER DOSE. GIVE IN ADDITION TO SLIDING SCALE INSULIN. ascorbic acid (vitamin C) 500 mg tablet 500 mg PO DAILY insulin lispro 100 unit/mL insulin pen 7 unit subcut BID cranberry 500 mg capsule 500 mg PO TID sennosides-docusate sodium [Stool Softener-Stimulant Laxat] 8.6-50 mg Tablet 2 tab PO BID Qty: 0 0RF acetaminophen 500 mg tablet 1,000 mg PO Q8H PRN PRN (Reason: PAIN/FEVER) 30 Days Qty: 0 0RF Held Januvia 50 mg Tablet 100 mg PO DAILY Hold Instructions: Hold for 1 week. metformin 500 mg tablet 500 mg PO DAILY Hold Instructions: Hold for 1 week Referrals / Follow Up: Rhonda Castro,DO Royal [Primary Care Provider] - Within 2 Weeks Cleveland Hector MD [Med Staff - Consulting] - Within 1 Month Hannah Riggs DO [Med Staff - Baseball Glove Stuffer] - Yasmin Aiken PA [Med Staff - Adv Practice Prof] - Within 2 Weeks Disposition Disposition (needs filled in before D/C Order can be placed): [facility] Charges/Coding Visit Charges Inpatient E&M: 51690 Disch Hosp >30min
--- NOTE | 2024-09-27 14:27 | CASEMGMT ---
Patient is ready for discharge back to [facility]. Plan: d/c back to [facility] under intermediate level of care. Physicians will transport patient via wheelchair van. Aleksandra CONROY
--- NOTE | 2024-09-27 15:04 | NURSING ---
Report called to nurse Miles for pt to be d/c back to [facility].
--- NOTE | 2024-09-27 16:02 | CASEMGMT ---
Discharge orders, signed med list and transport time sent to [facility]. Physicians will transport patient by wheelchair at 7p. Nursing, SW, and pts updated. Lainey Esquivel DC Planning Asst.
[2024-09-27 17:47] LABS: Bedside Glucose 101 mg/dL (74-106)
== END 2024-09-27 21:00 | disposition skilled nursing facility (03) | DRG 871 ==
LOC: ED 07:02 → ICU 07:13 → PCU 16:51
PROVIDERS: Internal Medicine; Internal Medicine Critical Care Medicine; Admitting Provider Family Medicine; Emergency Provider Emergency Medicine; PCP Internal Medicine; Visit Provider Internal Medicine
DX: A41.9 Sepsis, unspecified organism (principal); J15.4 Pneumonia due to other streptococci; J96.02 Acute respiratory failure with hypercapnia; J96.01 Acute respiratory failure with hypoxia; I50.31 Acute diastolic (congestive) heart failure; G93.41 Metabolic encephalopathy; J18.9 Pneumonia, unspecified organism; I13.0 Hypertensive heart and chronic kidney disease with heart failure and stage 1 through stage 4 chronic kidney disease, or unspecified chronic kidney disease; N17.9 Acute kidney failure, unspecified; N30.00 Acute cystitis without hematuria; D63.1 Anemia in chronic kidney disease; E11.22 Type 2 diabetes mellitus with diabetic chronic kidney disease; D50.9 Iron deficiency anemia, unspecified; G40.909 Epilepsy, unspecified, not intractable, without status epilepticus; I48.0 Paroxysmal atrial fibrillation; N18.30 Chronic kidney disease, stage 3 unspecified; F02.80 Dementia in other diseases classified elsewhere, unspecified severity, without behavioral disturbance, psychotic disturbance, mood disturbance, and anxiety; G20.A1 Parkinson's disease without dyskinesia, without mention of fluctuations; E66.9 Obesity, unspecified; E11.40 Type 2 diabetes mellitus with diabetic neuropathy, unspecified; E78.5 Hyperlipidemia, unspecified; Z79.4 Long term (current) use of insulin; F41.8 Other specified anxiety disorders; E87.5 Hyperkalemia; M10.9 Gout, unspecified; Z95.0 Presence of cardiac pacemaker; Z79.84 Long term (current) use of oral hypoglycemic drugs; Z90.710 Acquired absence of both cervix and uterus; Z68.35 Body mass index [BMI] 35.0-35.9, adult; Z86.73 Personal history of transient ischemic attack (TIA), and cerebral infarction without residual deficits; Z79.899 Other long term (current) drug therapy; Z79.82 Long term (current) use of aspirin
CPT/HCPCS: 36415; 36600; 51702; 71045; 80048; 80053; 81001; 82803; 82962; 83605; 83735; 83880; 84100; 84145; 85025; 85610; 85730; 87040; 87077; 87086; 87088; 87186; 87449; 87631; 87633; 93005; 93306; 94002; 94003; 94640; 94668; 94762; 97162; 97166; 97802; 99285; Q9957; A4216; C8929; J0696; J1940

== ENCOUNTER → 2024-09-29 05:00 | Outpatient (REF) | payer MEDICARE, MEDICAID, SELFPAY ==
[2024-09-29 08:27] LABS: Anion Gap 3 (5-15); BUN 71 mg/dL (7-18); BUN/Creat Ratio 32.3 RATIO (10-20); Chloride 109 mmol/L (98-107); EST Glomerular Filtration Rate 23 mL/min (>60); Est Glom Filt Rate - Afr Amer 28 mL/min (>60); Glucose 135 mg/dL (74-106); Potassium 4.9 mmol/L (3.5-5.1); Sodium Level 139 mmol/L (136-145)
== END ==
LOC: OLS.ACH 05:00
PROVIDERS: PCP Internal Medicine; Visit Provider Internal Medicine
DX: N18.31 Chronic kidney disease, stage 3a (principal)
CPT/HCPCS: 36415; 80048

== ENCOUNTER → 2024-11-06 | Outpatient (REF) | payer MEDICARE, MEDICAID, SELFPAY ==
[2024-11-06 08:19] LABS: Hematocrit 22.8 % (37-47); Hemoglobin 7.1 g/dL (12.0-15.0)
[2024-11-06 09:08] LABS: Hemoglobin A1c 5.5 % (<=5.6)
[2024-11-06 09:20] LABS: Anion Gap 13 (5-15); BUN 23 mg/dL (4-19); BUN/Creat Ratio 15.6 RATIO (10-20); Calcium,Total 9.1 mg/dL (7.6-11.0); Carbon Dioxide 20.8 mmol/L (21.0-32.0); Chloride 108 mmol/L (98-108); Creatinine, Serum 1.46 mg/dL (0.70-1.20); EST Glomerular Filtration Rate 38 (>60); Glucose 95 mg/dL (70-99); Potassium 3.9 mmol/L (3.3-5.1); Sodium Level 142 mmol/L (133-145)
== END ==
LOC: OLS.ACH 05:00
PROVIDERS: PCP Internal Medicine; Visit Provider Internal Medicine
DX: E87.1 Hypo-osmolality and hyponatremia (principal); E11.42 Type 2 diabetes mellitus with diabetic polyneuropathy; D50.9 Iron deficiency anemia, unspecified
CPT/HCPCS: 36415; 80048; 83036; 85014; 85018

== ENCOUNTER → 2024-11-07 | Outpatient (REF) | payer MEDICARE, MEDICAID, SELFPAY ==
[2024-11-07 08:35] LABS: Hematocrit 25.6 % (37-47); Hemoglobin 7.8 g/dL (12.0-15.0)
== END ==
LOC: OLS.ACH 05:00
PROVIDERS: PCP Internal Medicine; Visit Provider Internal Medicine
DX: E87.1 Hypo-osmolality and hyponatremia (principal); I69.354 Hemiplegia and hemiparesis following cerebral infarction affecting left non-dominant side; I12.9 Hypertensive chronic kidney disease with stage 1 through stage 4 chronic kidney disease, or unspecified chronic kidney disease; N18.9 Chronic kidney disease, unspecified
CPT/HCPCS: 36415; 85014; 85018

== ENCOUNTER → 2024-11-15 | Outpatient (REF) | payer MEDICARE, MEDICAID, SELFPAY ==
[2024-11-16 08:40] LABS: Bacteria 0 SEEN /hpf (None Seen); Mucous, Urine 0 SEEN /hpf (<or=2+)
[2024-11-16 09:17] LABS: Color, Urine Straw (Yellow); Glucose, Dipstick Normal (Normal); Ketone-Dipstick Negative (Negative); Leukocyte Esterase-Dipstick 100 /ul (Negative); Nitrite-Dipstick Negative (Negative); Occult Blood-Urine Negative /ul (Negative); Protein-Dipstick 500 mg/dl (Negative); Urine Bilirubin Dipstick Negative (Negative); Urine Clarity Clear (Clear); Urine Urobilinogen Normal (Normal); Urine pH 6.5 (5.0 - 8.0)
[2024-11-16 09:25] LABS: Squamous Epithelial Cells - UA 0-5 SEEN /hpf (5-10); White Blood Cells 5-10 SEEN /hpf (0-5)
[2024-11-16 13:58] LABS: Red Blood Cells-Urine 0 SEEN /hpf (0-5)
== END ==
LOC: OLS.ACH 17:00
PROVIDERS: PCP Internal Medicine; Referring Provider Internal Medicine; Visit Provider Internal Medicine
DX: N18.31 Chronic kidney disease, stage 3a (principal); R39.9 Unspecified symptoms and signs involving the genitourinary system
CPT/HCPCS: 81001; 87077; 87086; 87088; 87186

== ENCOUNTER → 2024-11-16 | Outpatient (REF) | payer MEDICARE, MEDICAID, SELFPAY | LOC: OLS.ACH 23:00 | PROVIDERS: PCP Internal Medicine; Visit Provider Internal Medicine | DX: N18.31 Chronic kidney disease, stage 3a (principal) | CPT/HCPCS: 82043; 82570 ==

== ENCOUNTER → 2024-11-21 | Outpatient (REF) | payer MEDICARE, MEDICAID, SELFPAY ==
[2024-11-21 12:10] LABS: Anion Gap 12 (5-15); BUN 31 mg/dL (4-19); BUN/Creat Ratio 19.7 RATIO (10-20); Calcium,Total 8.8 mg/dL (7.6-11.0); Carbon Dioxide 17.6 mmol/L (21.0-32.0); Chloride 109 mmol/L (98-108); Creatinine, Serum 1.58 mg/dL (0.70-1.20); EST Glomerular Filtration Rate 35 (>60); Glucose 111 mg/dL (70-99); Potassium 4.9 mmol/L (3.3-5.1); Sodium Level 139 mmol/L (133-145)
== END ==
LOC: OLS.ACH 04:00
PROVIDERS: PCP Internal Medicine; Referring Provider Internal Medicine; Visit Provider Internal Medicine
DX: N18.31 Chronic kidney disease, stage 3a (principal)
CPT/HCPCS: 36415; 80048

== ENCOUNTER → 2024-11-27 | Outpatient (REF) | payer MEDICARE, MEDICAID, SELFPAY ==
[2024-11-27 09:24] LABS: Cholesterol 223 mg/dL (<=200); HIV Nonreactive (Nonreactive); High Density Lipoprotein 24 mg/dL; Low Density Lipoprotein Calc. 124 mg/dL; Triglycerides 374 mg/dL; Very Low Density Lipoprotein 75 mg/dL (5-40); cholesterol:hdl ratio screen 9.14
[2024-11-27 09:46] LABS: AST(SGOT) 27 U/L (<=31); Alanine Aminotransfer ALT/SGPT < 5 U/L (<=34); Albumin, Serum 3.7 g/dL (3.4-4.8); Alkaline Phosphatase 67 U/L (35-104); Bilirubin, Direct < 0.08 mg/dL (0.00-0.30); Globulin 3.6 g/dL (2.2-4.2); Protein, Total 7.3 g/dL (5.9-8.4)
[2024-11-29 13:08] LABS: Complement C3 105 mg/dL (82-167); Immunoglobulin A 306 mg/dL (64-422); Immunoglobulin G 1581 mg/dL (586-1602); Immunoglobulin M 72 mg/dL (26-217); Plac Test- Lp-PLA2 251 (0-224)
== END ==
LOC: OLS.ACH 05:00
PROVIDERS: PCP Internal Medicine; Visit Provider Internal Medicine
DX: N18.31 Chronic kidney disease, stage 3a (principal); R80.9 Proteinuria, unspecified; E78.5 Hyperlipidemia, unspecified
CPT/HCPCS: 80061; 80076; 82784; 83698; 86160; 86334; 86703

== ENCOUNTER → 2024-11-28 | Outpatient (REF) | payer MEDICARE, MEDICAID, SELFPAY ==
[2024-11-28 09:42] LABS: Anion Gap 12 (5-15); BUN 36 mg/dL (4-19); BUN/Creat Ratio 17.7 RATIO (10-20); Calcium,Total 8.8 mg/dL (7.6-11.0); Carbon Dioxide 22.3 mmol/L (21.0-32.0); Chloride 104 mmol/L (98-108); Creatinine, Serum 2.06 mg/dL (0.70-1.20); EST Glomerular Filtration Rate 25 (>60); Glucose 103 mg/dL (70-99); Potassium 4.6 mmol/L (3.3-5.1); Sodium Level 139 mmol/L (133-145)
[2024-11-30 14:08] LABS: Albumin, Ur 69.9 % (.); Alpha-1-Globulin, Ur 3.9 % (.); Alpha-2-Globulins, Ur 3.4 % (.); Gamma Globulin, Ur 11.8 % (.); M-Spike, Ur % Not Observed % (Not Observed); Protein, 24Ur 2303 mg/24 hr (30-150); Total Protein, Ur 126.2 mg/dL (Not Estab.)
== END ==
LOC: OLS.ACH 04:00
PROVIDERS: PCP Internal Medicine; Referring Provider Internal Medicine; Visit Provider Internal Medicine
DX: N18.31 Chronic kidney disease, stage 3a (principal); R80.9 Proteinuria, unspecified
CPT/HCPCS: 36415; 80048; 81050; 84166; 86335

== ENCOUNTER → 2024-12-05 | Outpatient (REF) | payer MEDICARE, MEDICAID, SELFPAY ==
[2024-12-05 09:21] LABS: Anion Gap 12 (5-15); BUN 38 mg/dL (4-19); BUN/Creat Ratio 19.6 RATIO (10-20); Calcium,Total 9.7 mg/dL (7.6-11.0); Carbon Dioxide 22.3 mmol/L (21.0-32.0); Chloride 104 mmol/L (98-108); Creatinine, Serum 1.91 mg/dL (0.70-1.20); EST Glomerular Filtration Rate 28 (>60); Glucose 115 mg/dL (70-99); Potassium 5.2 mmol/L (3.3-5.1); Sodium Level 138 mmol/L (133-145)
== END ==
LOC: OLS.ACH 04:00
PROVIDERS: PCP Internal Medicine; Referring Provider Internal Medicine; Visit Provider Internal Medicine
DX: N18.31 Chronic kidney disease, stage 3a (principal)
CPT/HCPCS: 36415; 80048

== ENCOUNTER → 2024-12-06 | Outpatient (REF) | payer MEDICARE, MEDICAID, SELFPAY ==
[2024-12-06 08:36] LABS: Hematocrit 26.5 % (37-47); Hemoglobin 8.1 g/dL (12.0-15.0); Mean Corp Hgb Conc 30.6 g/dL (32-36); Mean Corpuscular Hgb 28.7 pg (27.0-32.0); Mean Platelet Vol. 11.2 fl (6.2-12.0); Platelet Count 191 K/mm3 (150-450); RBC Distribution Width SD 48.2 fl (35.1-43.9); Red Blood Count 2.82 M/mm3 (4.2-5.4); White Blood Count 5.6 K/mm3 (4.4-11.0)
== END ==
LOC: OLS.ACH 05:00
PROVIDERS: PCP Internal Medicine; Visit Provider Internal Medicine
DX: G40.219 Localization-related (focal) (partial) symptomatic epilepsy and epileptic syndromes with complex partial seizures, intractable, without status epilepticus (principal)
CPT/HCPCS: 36415; 85027

== ENCOUNTER → 2024-12-07 | Outpatient (REF) | payer MEDICARE, MEDICAID, SELFPAY ==
[2024-12-07 08:22] LABS: Potassium 5.2 mmol/L (3.3-5.1)
== END ==
LOC: OLS.ACH 05:00
PROVIDERS: PCP Internal Medicine; Visit Provider Internal Medicine
DX: E87.1 Hypo-osmolality and hyponatremia (principal)
CPT/HCPCS: 36415; 84132

== ENCOUNTER → 2024-12-25 | Outpatient (REF) | payer MEDICARE, MEDICAID, SELFPAY ==
[2024-12-25 08:57] LABS: Hemoglobin 7.2 g/dL (12.0-15.0); Mean Corp Hgb Conc 31.3 g/dL (32-36); Mean Corpuscular Hgb 28.8 pg (27.0-32.0); Mean Platelet Vol. 10.8 fl (6.2-12.0); Platelet Count 183 K/mm3 (150-450); RBC Distribution Width CV 13.8 % (11.6-14.6); RBC Distribution Width SD 46.6 fl (35.1-43.9); White Blood Count 5.7 K/mm3 (4.4-11.0)
== END ==
LOC: OLS.ACH 05:00
PROVIDERS: PCP Internal Medicine; Visit Provider Internal Medicine
DX: D50.9 Iron deficiency anemia, unspecified (principal)
CPT/HCPCS: 36415; 85027

== ENCOUNTER → 2024-12-26 | Outpatient (REF) | payer MEDICARE, MEDICAID, SELFPAY ==
[2024-12-26 09:14] LABS: Hematocrit 23.7 % (37-47); Hemoglobin 7.2 g/dL (12.0-15.0)
[2024-12-26 09:44] LABS: Anion Gap 13 (5-15); BUN 36 mg/dL (4-19); BUN/Creat Ratio 21.8 RATIO (10-20); Calcium,Total 8.6 mg/dL (7.6-11.0); Carbon Dioxide 19.9 mmol/L (21.0-32.0); Chloride 107 mmol/L (98-108); Creatinine, Serum 1.66 mg/dL (0.70-1.20); EST Glomerular Filtration Rate 33 (>60); Glucose 119 mg/dL (70-99); Potassium 4.4 mmol/L (3.3-5.1); Sodium Level 140 mmol/L (133-145)
== END ==
LOC: OLS.ACH 04:00
PROVIDERS: PCP Internal Medicine; Referring Provider Internal Medicine; Visit Provider Internal Medicine
DX: J96.12 Chronic respiratory failure with hypercapnia (principal); E87.1 Hypo-osmolality and hyponatremia; E11.9 Type 2 diabetes mellitus without complications; D64.9 Anemia, unspecified
CPT/HCPCS: 36415; 80048; 85014; 85018

== ENCOUNTER → 2025-01-01 | Outpatient (REF) | payer MEDICARE, MEDICAID, SELFPAY ==
[2025-01-01 09:55] LABS: Hematocrit 21.6 % (37-47); Hemoglobin 6.8 g/dL (12.0-15.0)
== END ==
LOC: OLS.ACH 05:00
PROVIDERS: PCP Internal Medicine; Visit Provider Internal Medicine
DX: D50.9 Iron deficiency anemia, unspecified (principal)
CPT/HCPCS: 36415; 85014; 85018

== ENCOUNTER → 2025-01-09 | Outpatient (REF) | payer MEDICARE, MEDICAID, SELFPAY ==
[2025-01-09 10:01] LABS: Hematocrit 23.7 % (37-47); Hemoglobin 7.3 g/dL (12.0-15.0)
[2025-01-09 10:47] LABS: Anion Gap 12 (5-15); BUN 42 mg/dL (4-19); BUN/Creat Ratio 24.5 RATIO (10-20); Calcium,Total 9.1 mg/dL (7.6-11.0); Carbon Dioxide 21.7 mmol/L (21.0-32.0); Chloride 104 mmol/L (98-108); Creatinine, Serum 1.71 mg/dL (0.70-1.20); EST Glomerular Filtration Rate 31 (>60); Glucose 130 mg/dL (70-99); Sodium Level 138 mmol/L (133-145)
== END ==
LOC: OLS.ACH 05:00
PROVIDERS: PCP Internal Medicine; Visit Provider Internal Medicine
DX: E87.1 Hypo-osmolality and hyponatremia (principal); E11.42 Type 2 diabetes mellitus with diabetic polyneuropathy
CPT/HCPCS: 36415; 80048; 85014; 85018

== ENCOUNTER → 2025-01-15 05:00 | Outpatient (REF) | payer MEDICARE, MEDICAID, SELFPAY ==
[2025-01-15 08:39] LABS: Hematocrit 23.1 % (37-47); Hemoglobin 6.9 g/dL (12.0-15.0); Mean Corp Hgb Conc 29.9 g/dL (32-36); Mean Corpuscular Hgb 27.2 pg (27.0-32.0); Mean Corpuscular Volume 90.9 fL (81-99); Mean Platelet Vol. 10.3 fl (6.2-12.0); Platelet Count 209 K/mm3 (150-450); RBC Distribution Width CV 14.3 % (11.6-14.6); RBC Distribution Width SD 46.8 fl (35.1-43.9); Red Blood Count 2.54 M/mm3 (4.2-5.4)
[2025-01-15 08:52] LABS: PTHIN 124 pg/mL (11-61)
[2025-01-15 09:29] LABS: Albumin, Serum 3.5 g/dL (3.4-4.8); Anion Gap 12 (5-15); BUN 38 mg/dL (4-19); BUN/Creat Ratio 21.1 RATIO (10-20); Carbon Dioxide 20.4 mmol/L (21.0-32.0); Chloride 106 mmol/L (98-108); Creatinine, Serum 1.79 mg/dL (0.70-1.20); EST Glomerular Filtration Rate 30 (>60); Glucose 132 mg/dL (70-99); Magnesium 2.2 mg/dL (1.5-2.2); Phosphorus 5.8 mg/dL (2.7-4.5); Sodium Level 139 mmol/L (133-145); Uric Acid 6.2 mg/dL (2.6-6.0)
== END ==
LOC: OLS.ACH 05:00
PROVIDERS: PCP Internal Medicine; Visit Provider Internal Medicine
DX: I12.9 Hypertensive chronic kidney disease with stage 1 through stage 4 chronic kidney disease, or unspecified chronic kidney disease (principal); N18.9 Chronic kidney disease, unspecified; E11.22 Type 2 diabetes mellitus with diabetic chronic kidney disease; E11.42 Type 2 diabetes mellitus with diabetic polyneuropathy
CPT/HCPCS: 36415; 80069; 82306; 83735; 83970; 84550; 85027

== ENCOUNTER → 2025-01-16 05:25 | Outpatient (REF) | payer MEDICARE, MEDICAID, SELFPAY ==
[2025-01-16 08:50] LABS: Hematocrit 22.6 % (37-47)
== END ==
LOC: OLS.ACH 05:25
PROVIDERS: PCP Internal Medicine; Visit Provider Internal Medicine
DX: D50.9 Iron deficiency anemia, unspecified (principal)
CPT/HCPCS: 36415; 85014; 85018

== ENCOUNTER → 2025-01-19 | Outpatient (REF) | payer MEDICARE, MEDICAID, SELFPAY ==
[2025-01-19 09:00] LABS: Hematocrit 23.9 % (37-47); Hemoglobin 7.3 g/dL (12.0-15.0)
== END ==
LOC: OLS.ACH 05:00
PROVIDERS: PCP Internal Medicine; Visit Provider Internal Medicine
DX: D50.9 Iron deficiency anemia, unspecified (principal)
CPT/HCPCS: 36415; 85014; 85018

== ENCOUNTER → 2025-01-25 05:00 | Outpatient (REF) | payer MEDICARE, MEDICAID, SELFPAY ==
[2025-01-25 15:32] LABS: Ferritin 191 ng/mL (22-378); Iron 31 ug/dL (50-170); Iron Binding Capacity,Total 326 ug/dL (250-450); Iron Binding Capacity,Unsat 295 ug/dL (228-428)
== END ==
LOC: OLS.ACH 05:00
PROVIDERS: PCP Internal Medicine
DX: N18.31 Chronic kidney disease, stage 3a (principal)
CPT/HCPCS: 36415; 82728; 83540; 83550

== ENCOUNTER → 2025-01-29 | Outpatient (REF) | payer MEDICARE, MEDICAID, SELFPAY ==
[2025-01-29 09:50] LABS: Hemoglobin A1c 5.7 % (<=5.6)
== END ==
LOC: OLS.ACH 04:00
PROVIDERS: PCP Internal Medicine; Referring Provider Internal Medicine; Visit Provider Internal Medicine
DX: E11.42 Type 2 diabetes mellitus with diabetic polyneuropathy (principal)
CPT/HCPCS: 36415; 83036

== ENCOUNTER → 2025-02-07 | Outpatient (REF) | payer MEDICARE, MEDICAID, SELFPAY ==
[2025-02-07 08:00] LABS: Albumin, Serum 3.7 g/dL (3.4-4.8); Anion Gap 12 (5-15); BUN 52 mg/dL (4-19); BUN/Creat Ratio 26.2 RATIO (10-20); Calcium,Total 9.1 mg/dL (7.6-11.0); Carbon Dioxide 22.9 mmol/L (21.0-32.0); Chloride 103 mmol/L (98-108); Creatinine, Serum 1.97 mg/dL (0.70-1.20); EST Glomerular Filtration Rate 27 (>60); Glucose 126 mg/dL (70-99); Phosphorus 5.2 mg/dL (2.7-4.5); Potassium 4.6 mmol/L (3.3-5.1); Sodium Level 137 mmol/L (133-145)
== END ==
LOC: OLS.ACH 04:00
PROVIDERS: PCP Internal Medicine; Referring Provider Internal Medicine; Visit Provider Internal Medicine
DX: N18.31 Chronic kidney disease, stage 3a (principal)
CPT/HCPCS: 36415; 80069

== ENCOUNTER → 2025-02-12 | Outpatient (REF) | payer MEDICARE, MEDICAID, SELFPAY ==
[2025-02-12 10:28] LABS: Hemoglobin 7.8 g/dL (12.0-15.0)
== END ==
LOC: OLS.ACH 04:00
PROVIDERS: PCP Internal Medicine; Referring Provider Internal Medicine; Visit Provider Internal Medicine
DX: E11.22 Type 2 diabetes mellitus with diabetic chronic kidney disease (principal); E11.42 Type 2 diabetes mellitus with diabetic polyneuropathy; E87.1 Hypo-osmolality and hyponatremia; N18.4 Chronic kidney disease, stage 4 (severe)
CPT/HCPCS: 36415; 85014; 85018

== ENCOUNTER → 2025-02-14 | Outpatient (REF) | payer MEDICARE, MEDICAID, SELFPAY ==
[2025-02-14 06:52] LABS: Hematocrit 26.9 % (37-47); Hemoglobin 8.1 g/dL (12.0-15.0); Mean Corp Hgb Conc 30.1 g/dL (32-36); Mean Corpuscular Hgb 26.4 pg (27.0-32.0); Mean Corpuscular Volume 87.6 fL (81-99); Mean Platelet Vol. 10.4 fl (6.2-12.0); Platelet Count 174 K/mm3 (150-450); RBC Distribution Width CV 15.2 % (11.6-14.6); RBC Distribution Width SD 48.6 fl (35.1-43.9); Red Blood Count 3.07 M/mm3 (4.2-5.4); White Blood Count 6.1 K/mm3 (4.4-11.0)
[2025-02-14 07:33] LABS: AST(SGOT) 20 U/L (<=31); Albumin, Serum 3.8 g/dL (3.4-4.8); Alkaline Phosphatase 60 U/L (35-104); Anion Gap 11 (5-15); BUN 44 mg/dL (4-19); BUN/Creat Ratio 24.1 RATIO (10-20); Calcium,Total 9.1 mg/dL (7.6-11.0); Carbon Dioxide 23.1 mmol/L (21.0-32.0); Chloride 103 mmol/L (98-108); Creatinine, Serum 1.82 mg/dL (0.70-1.20); EST Glomerular Filtration Rate 29 (>60); Globulin 3.9 g/dL (2.2-4.2); Glucose 120 mg/dL (70-99); Protein, Total 7.6 g/dL (5.9-8.4); Sodium Level 137 mmol/L (133-145); Total Bilirubin 0.19 mg/dL (0.00-1.30)
[2025-02-14 15:45] LABS: Alanine Aminotransfer ALT/SGPT < 5 U/L (<=34)
== END ==
LOC: OLS.ACH 05:00
PROVIDERS: PCP Internal Medicine; Visit Provider Internal Medicine
DX: G40.219 Localization-related (focal) (partial) symptomatic epilepsy and epileptic syndromes with complex partial seizures, intractable, without status epilepticus (principal)
CPT/HCPCS: 36415; 80053; 85027

== ENCOUNTER → 2025-02-16 | Outpatient (CLI) | payer MEDICARE, MEDICAID, SELFPAY ==
--- NOTE | 2025-02-16 13:57 | ECHOD_ITS ---
Reason For Study Reason For Study: CHF Procedure This was a 2D Doppler, Color Flow transthoracic echocardiogram. Exam performed in department. Left Ventricle Normal LV size. Moderate concentric left ventricular hypertrophy. The left ventricular ejection fraction is 60 %. Stage 1 diastolic dysfunction. No regional wall motion abnormalities noted. Right Ventricle Normal RV size. ICD or pacer leads identified within the right ventricle. Normal systolic function. Atria Normal left atrium. Normal right atrium. Mitral Valve There is mild to moderate mitral annular calcification. Mild (1+) eccentric mitral valve insufficiency. Tricuspid Valve Normal tricuspid valve. Mild to moderate (1-2+) tricuspid valve insufficiency. Pulmonary artery systolic pressure is 37 mmHg. Aortic Valve Trisinus/trileaflet aortic valve. Mild focal aortic valve calcification. Pulmonic Valve Normal pulmonic valve. Great Vessels Normal aortic root. The pulmonary artery is normal size. Inferior vena cava collapse with respiration. Pericardium/Pleural No pericardial effusion. MMode/2D Measurements & Calculations LVIDd: 5.1 cm IVSd: 1.3 cm LVOT diam: 2.0 cm LVIDs: 3.3 cm LVPWd: 1.4 cm LVOT area: 3.3 cm2 FS: 34.7 % Ao root diam: 3.9 cm LAV(MOD-bp): 58.0 ml LVAd ap4: 27.3 cm2 LAV(MOD-bp) Indexed: 33.4 ml/m2 LVLd ap4: 7.5 cm LAV(MOD-sp2): 61.8 ml EDV(MOD-sp4): 81.8 ml LAV(MOD-sp4): 53.4 ml EDV(sp4-el): 84.7 ml LVAs ap4: 16.0 cm2 LVLs ap4: 6.5 cm ESV(MOD-sp4): 33.4 ml ESV(sp4-el): 33.5 ml EF(MOD-sp4): 59.1 % EF(sp4-el): 60.4 % SV(MOD-sp4): 48.3 ml SV(sp4-el): 51.2 ml LA A4 area: 19.7 cm2 SI(MOD-sp4): 27.8 ml/m2 LA dimension(2D): 4.3 cm RA A4 area: 13.2 cm2 Time Measurements MV dec time: 0.51 sec Doppler Measurements & Calculations MV E max mp: 62.9 cm/sec Lat Peak E' Mp: 8.4 cm/sec Med Peak E' Mp: 6.2 cm/sec MV A max mp: 87.7 cm/sec E/E' lat: 7.5 E/E' med: 10.1 MV E/A: 0.72 MV V2 max: 95.8 cm/sec Ao V2 max: 159.6 cm/sec MV max P.7 mmHg MV dec slope: 122.8 cm/sec2 Ao max P.2 mmHg MV V2 mean: 54.3 cm/sec Ao V2 mean: 108.2 cm/sec MV mean P.3 mmHg Ao mean P.4 mmHg MV V2 VTI: 34.3 cm Ao V2 VTI: 31.3 cm AV (velocity ratio): 0.57 MVA(VTI): 1.7 cm2 JOHNNA(I,D): 1.9 cm2 JOHNNA(V,D): 2.6 cm2 LV V1 max: 125.0 cm/sec SV(LVOT): 58.5 ml PA V2 max: 113.0 cm/sec LV V1 max P.3 mmHg PA V2 mean: 65.1 cm/sec LV V1 mean P.7 mmHg LV V1 mean: 74.0 cm/sec LV V1 VTI: 18.0 cm TR max mp: 290.7 cm/sec TR max P.8 mmHg ECHO/Echo Complete Interpretation Summary Normal LV size. Moderate concentric left ventricular hypertrophy. The left ventricular ejection fraction is 60 %. Stage 1 diastolic dysfunction. Ordering Physician: Yasmin Aiken Referring Physician: Yasmin Aiken Performed By: Jennifer Doll RCS
== END | disposition home or self-care (01) ==
LOC: CVS 13:53
PROVIDERS: PCP Internal Medicine; Referring Provider Physician Assistant Medical; Visit Provider Physician Assistant Medical
DX: I34.0 Nonrheumatic mitral (valve) insufficiency (principal)
CPT/HCPCS: 93306

== ENCOUNTER → 2025-02-27 | Outpatient (REF) | payer MEDICARE, MEDICAID, SELFPAY ==
[2025-02-27 11:51] LABS: Albumin, Serum 3.6 g/dL (3.4-4.8); Anion Gap 13 (5-15); BUN 56 mg/dL (4-19); BUN/Creat Ratio 27.8 RATIO (10-20); Calcium,Total 8.8 mg/dL (7.6-11.0); Carbon Dioxide 21.1 mmol/L (21.0-32.0); Chloride 104 mmol/L (98-108); Glucose 136 mg/dL (70-99); Potassium 4.3 mmol/L (3.3-5.1)
== END ==
LOC: OLS.ACH 04:00
PROVIDERS: PCP Internal Medicine; Referring Provider Internal Medicine; Visit Provider Internal Medicine
DX: I12.9 Hypertensive chronic kidney disease with stage 1 through stage 4 chronic kidney disease, or unspecified chronic kidney disease (principal); N18.4 Chronic kidney disease, stage 4 (severe)
CPT/HCPCS: 36415; 80069

== ENCOUNTER 2025-03-13 21:02 | Emergency (ER) | payer MEDICARE, MEDICAID, SELFPAY ==
[2025-03-13 21:04] VITALS: BP 185/66; PULSE 87; RESP 17; TEMP 37.1; O2SAT 100
--- NOTE | 2025-03-13 21:32 | ED.VIS.FEGU ---
HPI HPI - Female History of Present Illness Chief Complaint: Vag Bleeding Informant: patient Bleeding Issue: Positive for Vaginal bleeding and Passing clots Onset: Today Timing: Intermittent Narrative Narrative: 75-year-old female lives in extended-care facility. History of A-fib, Parkinson disease pacemaker, diabetes, chronic kidney disease anemia. Prior hysterectomy. Patient has a history of vaginal atrophy with bleeding. She is on aspirin but no other blood thinners. She had a similar event last June. Basically was having vaginal bleeding today. No pain. No dysuria. Prior similar symptoms: Yes Recent Illness/Hospitalization: No PFSH PFSH Medical History Moderate mitral regurgitation Decreased left ventricular function Pneumonia Parkinsons disease Pacemaker malfunction Chronic UTI S/P extracorporeal shock wave therapy Bladder disease Failure to thrive in adult Glaucoma TBI (traumatic brain injury) Kidney stone Lives in alf Insulin dependent diabetes mellitus Uses wheelchair Walker as ambulation aid Stroke/cerebrovascular accident Syncope Parkinson's disease Dietary restriction Heartburn History of edema History of echocardiogram Cardiology follow-up encounter Anxiety Non-smoker Kidney disease Atrial fibrillation Pacemaker Hypertension Seizures Obesity Type 2 diabetes mellitus Hypertriglyceridemia Chronic kidney disease (CKD) Paroxysmal atrial fibrillation Essential hypertension Dysuria Septic shock Junctional rhythm Tachy-maurizio syndrome Vaginal bleeding Breakthrough seizure HLD (hyperlipidemia) Hypertensive emergency without congestive heart failure Seizure Home Medications ?Medication ?Instructions ?Recorded ?Last Taken ?Type allopurinol 100 mg tablet 100 mg PO DAILY GOUT 12/10/22 01/20/24 History aspirin 81 mg tablet,delayed 81 mg PO DAILY HEART HEALTH 12/10/22 01/20/24 History release (Adult Low Dose Aspirin) alendronate 70 mg tablet 70 mg PO BONE HEALTH 06/15/23 01/15/24 History carbidopa 10 mg-levodopa 100 mg 1 tab PO TID PARKINSONS 06/15/23 01/20/24 History tablet citalopram 10 mg tablet 10 mg PO DAILY DEPRESSION 06/15/23 01/20/24 History estradiol 0.01% (0.1 mg/gram) 1 appful vaginal PRECIADO HORMONES 06/15/23 01/16/24 History vaginal cream clobazam 10 mg tablet 5 mg PO DAILY EPILEPSY 10/12/23 01/19/24 History calcium carbonate (Calcium 500) 500 mg PO Q4H PRN GERD 12/14/23 Unknown History ondansetron HCl 8 mg tablet 8 mg PO Q8H PRN NAUSEA 12/18/23 Unknown History ascorbic acid (vitamin C) 500 mg 500 mg PO DAILY SUPPLEMENT 01/20/24 01/20/24 History tablet acetaminophen 500 mg tablet 1,000 mg (2 x 500 mg) PO Q8H PRN 01/23/24 01/20/24 Rx PRN PAIN/FEVER 30 days #0 tabs sennosides 8.6 mg-docusate sodium 2 tab PO BID #0 tabs 01/23/24 Unknown Rx 50 mg tablet (Stool Softener-Stimulant Laxative) albuterol sulfate 90 mcg/actuation 2 puff inhalation Q4-6H PRN 01/02/25 Unknown History aerosol inhaler shortness of breath or wheezing amlodipine 10 mg tablet 10 mg PO DAILY 01/02/25 Unknown History bisacodyl 10 mg rectal suppository 10 mg [place] QDAY PRN constipation 01/02/25 Unknown History carboxymethylcellulose sodium 0.5 2 drp ophthalmic (eye) BID 01/02/25 Unknown History % eye drops (Refresh Tears) cranberry 500 mg capsule 500 mg PO QDAY UTI PREVENTION 01/02/25 Unknown History hydralazine 25 mg tablet 25 mg PO BID PRN HTN 01/02/25 Unknown History insulin glargine 100 unit/mL (3 20 unit subcut QHS DIABETES 01/02/25 Unknown History mL) subcutaneous pen (Lantus Solostar U-100 Insulin) insulin lispro 100 unit/mL 4 unit subcut [facility] DIABETES 01/02/25 Unknown History subcutaneous pen lacosamide 150 mg tablet 150 mg PO QAM EPILEPSY 01/02/25 Unknown History lacosamide 200 mg tablet 200 mg PO QHS 01/02/25 Unknown History lactobacillus combination no.9 4 4,000 mmu cells PO QDAY 01/02/25 Unknown History billion cell capsule (Adult 50 Plus Probiotic) linagliptin 5 mg tablet (Tradjenta) 5 mg PO QDAY 01/02/25 Unknown History liver extract 2 cap PO DAILY 01/02/25 Unknown History polyethylene glycol 3350 17 17 g PO QDAY PRN constipation 01/02/25 Unknown History gram/dose oral powder pregabalin 75 mg capsule 75 mg PO QDAY 01/02/25 Unknown History sodium bicarbonate 650 mg tablet 650 mg PO BID 01/02/25 Unknown History dextran 70-hypromellose (PF) 0.1 1 drp ophthalmic (eye) DAILY PRN 03/13/25 Unknown History %-0.3 % eye drops in a dropperette PRN dry eye(s) (GenTeal Tears Moderate (PF)) empagliflozin 10 mg tablet 10 mg PO DAILY 03/13/25 Unknown History (Jardiance) loratadine 10 mg tablet (Claritin) 5 mg PO DAILY 03/13/25 Unknown History Allergy/AdvReac Type Severity Reaction Status Date / Time amoxicillin (From Augmentin) Allergy Rash Verified 03/13/25 21:04 clavulanic acid (From Allergy Rash Verified 03/13/25 21:04 Augmentin) escitalopram (From Lexapro) Allergy Rash Verified 03/13/25 21:04 shellfish derived Allergy Unknown Verified 03/13/25 21:04 hydroxychloroquine (From AdvReac Severe Unknown Verified 03/13/25 21:04 Plaquenil) house dust AdvReac NEEDS Verified 03/13/25 21:04 FOLLOW-UP perfume AdvReac Unknown Verified 03/13/25 21:04 pineapple AdvReac Rash Verified 03/13/25 21:04 quinine AdvReac Unknown Verified 03/13/25 21:04 strawberry AdvReac Rash Verified 03/13/25 21:04 Sulfa (Sulfonamide AdvReac Unknown Verified 03/13/25 21:04 Antibiotics) Family History Brother Heart disease Hx CABG Hypertension Diabetes Mother Hypertension Surgical History History of permanent cardiac pacemaker placement (09/2024) History of breast surgery History of hysterectomy Social History household members: spouse Smoking Status: Never smoker alcohol intake: never substance use type: does not use caffeine: No what type of physical activity do you participate in: none seatbelt use: always do you feel safe at home: Yes ROS ROS ED ROS Narrative Denies recent illness. Constitutional Constitutional ED: Denies chills or fever(s) Eyes Eyes: Denies blurry vision ENT ENT ED: Denies ear pain Cardiovascular Cardiovascular: Denies chest pain Respiratory/Chest Respiratory/Chest: Denies cough Gastrointestinal Gastrointestinal: Denies abdominal pain Genitourinary Genitourinary ED: Denies dysuria Musculoskeletal Musculoskeletal: Denies arthralgias Integumentary Denies abscess Neurologic Neurologic: Denies headache(s) Endocrine Endocrinology: Denies heat intolerance Hematologic/Lymphatic Hematologic/Lymphatic: Denies easy bleeding, easy bruising or lymphadenopathy Allergic/Immunologic Allergic/Immunologic ED: Denies mouth swelling, tongue swelling or urticaria EXAM Physical Exam Narrative Exam Narrative: 75-year-old female sitting upright in bed. at bedside. Vital signs stable afebrile. Patient is no acute distress. H EENT exam pupils round react to light. Moist mucous membranes. Neck nontender. No lymphadenopathy. Lungs there to auscultation bilaterally. Heart A-fib rate about 85. No murmur. Chest wall ribs nontender. Abdomen soft nontender. Back nontender. Moving all 4 extremities. Nontender no deformity. Neurologically patient is awake alert. Answering questions following commands. Const Vital Signs: 03/13/25 21:04 Temperature 98.8 F Temperature Source Oral Pulse Rate 87 Respiratory Rate 17 Blood Pressure 185/66 H Blood Pressure Mean 105 Pulse Ox 100 Oxygen Delivery Method Room Air Positive well nourished and well developed; Negative for cachectic, contractures or unkempt General Appearance ED: well developed and NAD; Negative for unkempt, cachectic, contractures or pallor Nutritional Appearance: Negative for cachectic HEENT Reports moist mucous membranes Eyes PERRL and EOMs intact bilaterally Neck no lymphadenopathy, supple and no JVD Chest Wall inspection of chest normal and palpation of chest normal Resp normal respiratory effort and clear to auscultation bilaterally Cardio regular rate, regular rhythm, S1 normal heart sound, no murmurs and no JVD GI normal to inspection, nondistended, normoactive bowel sounds, soft to palpation, non-tender, non-distended and no masses Auscultation: normoactive bowel sounds Back/Spine no CVA tenderness Extremity normal to inspection and full ROM General Extremety ED: Negative for edema or tenderness General Extremity: Negative for edema Neuro oriented x3 and CN's II-XII intact bilaterally Sensorium / Orientation: alert, oriented to person, oriented to place and oriented to time Motor Exam: strength 5/5 throughout Psych mental status grossly normal Appearance: Negative for unkempt Skin no rashes or lesions noted and no wounds General Skin Exam: Negative for jaundice or pallor MDM MDM MDM Narrative Medical decision making narrative: 75-year-old female history of vaginal bleeding last June. Per her history of vaginal atrophy that is treated weekly with creams. Started having vaginal bleeding again today. She is on aspirin but no other blood thinners. She has had a prior hysterectomy. Blood count and chemistry of be obtained. I will do a pelvic exam on the patient when the nurse is available. Repeat exam patient is doing well at 10:25 PM. Pelvic exam was done with female nurse present in the room. Patient's had a hysterectomy. Her cervix was left in place. There is some bleeding from the vaginal morales. But there is no heavy bleeding or clots currently. This appears to be from vaginal atrophy. I went over the labs the patient and her . They are comfortable with her being discharged home with outpatient follow-up with local HYDROELECTRIC PRODUCTION MANAGER. Lab Data Attestation: I reviewed the patient's lab results. Lab results narrative: CBC shows a white count 7.5. H&H 8.5 and 26.4 which is her baseline chronic anemia she runs typically between 7 and 10. Platelets 180. PT/INR of 13 and 1. Electrolytes show sodium 134. Gap 17. BUN and creatinine of 53 and 1.71 which is her baseline chronic kidney disease renal insufficiency. Glucose 154. Labs: Laboratory Results - last 24 hr 03/13/25 21:10 WBC 7.5 RBC 3.07 L Hgb 8.5 L Hct 26.4 L MCV 86.0 MCH 27.7 MCHC 32.2 RDW Std Deviation 49.0 H RDW Coeff of Ernesto 15.6 H Plt Count 180 MPV 10.9 Immature Gran % (Auto) 0.500 Neut % (Auto) 53.0 Lymph % (Auto) 33.9 [place] % (Auto) 10.0 Eos % (Auto) 2.1 Baso % (Auto) 0.5 Absolute Neuts (auto) 4.0 Absolute Lymphs (auto) 2.55 Nucleated RBC % 0 PT 13.0 INR 1.0 Sodium 134 Potassium 4.5 Chloride 97 L Carbon Dioxide 20.0 L Anion Gap 17 H BUN 53 H Creatinine 1.71 H Est GFR (MDRD) Non-Af 31 L BUN/Creatinine Ratio 31.1 H Glucose 154 H Calcium 8.9 Discharge Plan Triage Chief Complaint: Vag Bleeding ED Provider: Tom Marley Dx/Rx/DC Orders Clinical Impression: Abnormal vaginal bleeding, Hx of senile atrophic vaginitis, History of diabetes mellitus Prescriptions: No Action allopurinol 100 mg tablet 100 mg PO DAILY aspirin [Adult Low Dose Aspirin] 81 mg tablet,delayed release (DR/EC) 81 mg PO DAILY amlodipine 10 mg tablet 10 mg PO DAILY lacosamide 200 mg tablet 200 mg PO QHS carboxymethylcellulose sodium [Refresh Tears] 0.5 % drops 2 drp ophthalmic (eye) BID sodium bicarbonate 650 mg tablet 650 mg PO BID liver extract Capsule 2 cap PO DAILY pregabalin 75 mg capsule 75 mg PO QDAY Tradjenta 5 mg tablet 5 mg PO QDAY Adult 50 Plus Probiotic 4 billion cell capsule 4,000 mmu cells PO QDAY Rx Instructions: administer with a meal hydralazine 25 mg tablet 25 mg PO BID PRN (Reason: HTN) bisacodyl 10 mg suppository 10 mg [place] QDAY PRN (Reason: constipation) polyethylene glycol 3350 17 gram/dose powder 17 g PO QDAY PRN (Reason: constipation) albuterol sulfate 90 mcg/actuation HFA aerosol inhaler 2 puff inhalation Q4-6H PRN (Reason: shortness of breath or wheezing) clobazam 10 mg tablet 5 mg PO DAILY alendronate 70 mg tablet 70 mg PO SA carbidopa-levodopa 10-100 mg tablet 1 tab PO TID citalopram 10 mg tablet 10 mg PO DAILY estradiol 0.01 % (0.1 mg/gram) cream 1 appful VAGINAL PRECIADO lacosamide 150 mg tablet 150 mg PO QAM insulin glargine [Lantus Solostar U-100 Insulin] 100 unit/mL (3 mL) insulin pen 20 unit SUBCUT QHS calcium carbonate [Calcium 500] 500 mg calcium (1,250 mg) tablet,chewable 500 mg PO Q4H PRN (Reason: GERD) ondansetron HCl 8 mg tablet 8 mg PO Q8H PRN (Reason: NAUSEA ) ascorbic acid (vitamin C) 500 mg tablet 500 mg PO DAILY sennosides-docusate sodium [Stool Softener-Stimulant Laxat] 8.6-50 mg Tablet 2 tab PO BID Qty: 0 0RF acetaminophen 500 mg tablet 1,000 mg PO Q8H PRN PRN (Reason: PAIN/FEVER) 30 Days Qty: 0 0RF cranberry 500 mg capsule 500 mg PO QDAY insulin lispro 100 unit/mL insulin pen 4 unit subcut QAC Rx Instructions: INJECT 4 UNITS SUBCUTANEOUSLY ONE TIME A DAY FOR DM. HUMALOG. SUPPER DOSE. GIVE IN ADDITION TO SLIDING SCALE INSULIN. Jardiance 10 mg tablet 10 mg PO DAILY loratadine [Claritin] 10 mg tablet 5 mg PO DAILY GenTeal Tears Moderate (PF) 0.1-0.3 % dropperette 1 drp ophthalmic (eye) DAILY PRN PRN (Reason: dry eye(s)) Patient Comments: [NO ORIGINAL SIG] Primary Care Provider: Royal Ellis Sr. Referrals: Royal Ellis Sr., [Primary Care Provider] - Sathya Dunbar MD [Med Staff - Active Staff] - As soon as possible Activity Restrictions/Additional Instructions: You may have some additional bleeding. Her bleeding from the morales or vagina from vaginal atrophy. Hold your aspirin. Have them do your next vaginal treatment with the cream tomorrow. Follow-up with a local HYDROELECTRIC PRODUCTION MANAGER if the bleeding continues. Print Language: [place]ian Disposition Disposition: Home, Self Care
[2025-03-13 21:33] LABS: Hematocrit 26.4 % (37-47); Hemoglobin 8.5 g/dL (12.0-15.0); Immature Granulocytes Count 0.040 X10^3/uL (0.0-0.0); Mean Corp Hgb Conc 32.2 g/dL (32-36); Mean Corpuscular Volume 86.0 fL (81-99); Mean Platelet Vol. 10.9 fl (6.2-12.0); NRBC Flagged by Analyzer 0 % (0-5); Platelet Count 180 K/mm3 (150-450); RBC Distribution Width CV 15.6 % (11.6-14.6); RBC Distribution Width SD 49.0 fl (35.1-43.9); Red Blood Count 3.07 M/mm3 (4.2-5.4); White Blood Count 7.5 K/mm3 (4.4-11.0)
[2025-03-13 21:41] LABS: Prothrombin Time (Protime)PT. 13.0 SECONDS (11.7-14.9)
[2025-03-13 21:53] LABS: Anion Gap 17 (5-15); BUN 53 mg/dL (4-19); BUN/Creat Ratio 31.1 RATIO (10-20); Calcium,Total 8.9 mg/dL (7.6-11.0); Carbon Dioxide 20.0 mmol/L (21.0-32.0); Chloride 97 mmol/L (98-108); Glucose 154 mg/dL (70-99); Potassium 4.5 mmol/L (3.3-5.1)
[2025-03-13 23:14] VITALS: BP 161/65; PULSE 61; RESP 18; TEMP 36.6; O2SAT 96
[2025-03-14 01:00] VITALS: BP 155/59; PULSE 63; RESP 20; O2SAT 99
== END 2025-03-14 02:50 | disposition home or self-care (01) ==
PROVIDERS: Emergency Provider Emergency Medicine; PCP Internal Medicine; Visit Provider Emergency Medicine
DX: N93.9 Abnormal uterine and vaginal bleeding, unspecified (principal); I48.0 Paroxysmal atrial fibrillation; E11.22 Type 2 diabetes mellitus with diabetic chronic kidney disease; Z79.4 Long term (current) use of insulin; N18.9 Chronic kidney disease, unspecified; Z90.710 Acquired absence of both cervix and uterus; I12.9 Hypertensive chronic kidney disease with stage 1 through stage 4 chronic kidney disease, or unspecified chronic kidney disease; E78.5 Hyperlipidemia, unspecified; Z79.82 Long term (current) use of aspirin; Z95.0 Presence of cardiac pacemaker; Z86.73 Personal history of transient ischemic attack (TIA), and cerebral infarction without residual deficits; Z79.899 Other long term (current) drug therapy; F41.9 Anxiety disorder, unspecified; Z79.84 Long term (current) use of oral hypoglycemic drugs; N95.2 Postmenopausal atrophic vaginitis
CPT/HCPCS: 80048; 85025; 85610; 99285; A4216

== ENCOUNTER → 2025-03-20 | Outpatient (REF) | payer MEDICARE, MEDICAID, SELFPAY ==
[2025-03-20 08:06] LABS: Hematocrit 25.7 % (37-47); Hemoglobin 7.9 g/dL (12.0-15.0); Mean Corp Hgb Conc 30.7 g/dL (32-36); Mean Corpuscular Volume 87.1 fL (81-99); Mean Platelet Vol. 10.7 fl (6.2-12.0); Platelet Count 168 K/mm3 (150-450); RBC Distribution Width CV 15.9 % (11.6-14.6); RBC Distribution Width SD 50.1 fl (35.1-43.9); Red Blood Count 2.95 M/mm3 (4.2-5.4); White Blood Count 5.6 K/mm3 (4.4-11.0)
== END ==
LOC: OLS.ACH 05:00
PROVIDERS: PCP Internal Medicine; Visit Provider Internal Medicine
DX: D50.9 Iron deficiency anemia, unspecified (principal)
CPT/HCPCS: 36415; 85027

== ENCOUNTER → 2025-03-22 05:00 | Outpatient (REF) | payer MEDICARE, MEDICAID, SELFPAY ==
[2025-03-22 09:03] LABS: Hematocrit 26.0 % (37-47); Hemoglobin 8.1 g/dL (12.0-15.0); Immature Granulocytes Count 0.040 X10^3/uL (0.0-0.0); Mean Corp Hgb Conc 31.2 g/dL (32-36); Mean Corpuscular Volume 87.8 fL (81-99); Mean Platelet Vol. 11.0 fl (6.2-12.0); NRBC Flagged by Analyzer 0 % (0-5); Platelet Count 174 K/mm3 (150-450); RBC Distribution Width CV 15.9 % (11.6-14.6); RBC Distribution Width SD 50.7 fl (35.1-43.9); Red Blood Count 2.96 M/mm3 (4.2-5.4); White Blood Count 5.6 K/mm3 (4.4-11.0)
[2025-03-22 09:27] LABS: AST(SGOT) 21 U/L (<=31); Alanine Aminotransfer ALT/SGPT < 5 U/L (<=34); Albumin, Serum 3.4 g/dL (3.4-4.8); Alkaline Phosphatase 57 U/L (35-104); Anion Gap 11 (5-15); BUN 38 mg/dL (4-19); BUN/Creat Ratio 22.4 RATIO (10-20); Calcium,Total 8.8 mg/dL (7.6-11.0); Carbon Dioxide 22.6 mmol/L (21.0-32.0); Chloride 104 mmol/L (98-108); Globulin 3.9 g/dL (2.2-4.2); Glucose 104 mg/dL (70-99); Potassium 4.7 mmol/L (3.3-5.1)
== END ==
LOC: OLS.ACH 05:00
PROVIDERS: PCP Internal Medicine; Visit Provider Internal Medicine
DX: G40.219 Localization-related (focal) (partial) symptomatic epilepsy and epileptic syndromes with complex partial seizures, intractable, without status epilepticus (principal)
CPT/HCPCS: 36415; 80053; 85025

== ENCOUNTER 2025-04-05 06:08 | Day surgery (SDC) | payer MEDICARE, MEDICAID, SELFPAY ==
--- NOTE | 2025-03-20 13:25 | PAT.ANESEVAL ---
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 When Was Last Pacemaker Check QUESTION #4 FULL TEXT: You/Your Family Experience fever (hyperthermia) with Anesthesia Last Oral Intake Last Oral intake: Last Oral Intake NPO since Meds taken in AM with sips of water? 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 - installation and repair technician: PONV - installation and repair technician Female Yes 03/20/25 11:56 HX of Motion Sickness No 03/20/25 11:56 HX of N/V After Surgery No 03/20/25 11:56 Non-Smoker Yes 03/20/25 11:56 Duration of Surgery greater No 03/20/25 11:56 than 60 minutes Number of Risk Factors 2 03/20/25 11:56 PONV Score Moderate Risk 03/20/25 11:56 Height & Weight Height & Weight: Anesthesia: Height & Weight Height 5 ft 1 in 03/13/25 21:04 Respiratory Assessment Respiratory Assessment - installation and repair technician: Respiratory Tract Infection Hx - installation and repair technician Hx Respiratory Tract Infection No 03/20/25 11:56 STOP Sleep Apnea STOP Sleep Apnea - installation and repair technician: STOP Sleep Apnea - installation and repair technician Hx Hypertension Yes 03/20/25 11:56 Hx Sleep Apnea No 03/20/25 11:56 CPAP No 09/25/24 07:50 BIPAP No 09/25/24 07:50 Do you snore loudly (louder No 03/20/25 11:56 than talking or can be heard Do you often feel tired/ No 03/20/25 11:56 fatigued/ sleepy during daytime? Has anyone observed you stop No 03/20/25 11:56 breathing during sleep? STOP Results Negative 03/20/25 11:56 QUESTION #5 FULL TEXT : Do you snore loudly (louder than talking or can be heard through closed doors)? 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 - installation and repair technician: Tobacco Use History - installation and repair technician Tobacco Use Smoking Status Never smoker 03/20/25 11:56 Hx Tobacco Use No 03/20/25 11:56 Years Smoking Packs Smoked per Day Smoking Cessation Date was within the last 15 years Hx Smoking Cessation Date Hx Smoking Cessation Counseling Hematologic Medial History Hematologic Hx - installation and repair technician: Hematologic Medical Hx - simulation specialist Hx of Blood Transfusion Yes 03/20/25 11:56 Hx of Transfusion in last 3 No 03/20/25 11:56 Months Date of Last Transfusion (if within last 3 months) Ever experience any problems No 03/20/25 11:56 with transfusion(s)? Specify any problems Hx of Preganancy in last 3 N/A 03/20/25 11:56 Months Nurse Filling Out Transfusion [id number] 03/20/25 11:56 & Questions: Date: 03/20/25 03/20/25 11:56 Time: 11:58 03/20/25 11:56 Patient unable to answer at this time (ie. confused, unrespo /Reproduction History /Reproductive History - installation and repair technician: /Reproductive Hx- installation and repair technician Hx Now Gestational Age (in weeks): EDC: Hx Hx Para Hx Section SAB No 12/14/23 11:35 PFSH Medical History Moderate mitral regurgitation Decreased left ventricular function Parkinsons disease Pneumonia Pacemaker malfunction Chronic UTI S/P extracorporeal shock wave therapy Bladder disease Failure to thrive in adult Glaucoma TBI (traumatic brain injury) Kidney stone Lives in intermediate Insulin dependent diabetes mellitus Uses wheelchair Walker as ambulation aid Stroke/cerebrovascular accident Syncope Parkinson's disease Dietary restriction Heartburn History of edema History of echocardiogram Cardiology follow-up encounter Anxiety Non-smoker Kidney disease Atrial fibrillation Pacemaker Hypertension Seizures Obesity Type 2 diabetes mellitus Hypertriglyceridemia Chronic kidney disease (CKD) Paroxysmal atrial fibrillation Essential hypertension Dysuria Septic shock Junctional rhythm Tachy-maurizio syndrome Vaginal bleeding Breakthrough seizure HLD (hyperlipidemia) Hypertensive emergency without congestive heart failure Seizure Home Medications ?Medication ?Instructions ?Recorded ?Last Taken ?Type allopurinol 100 mg tablet 100 mg PO DAILY GOUT 12/10/22 01/20/24 History aspirin 81 mg tablet,delayed 81 mg PO DAILY HEART HEALTH 12/10/22 03/13/25 History release (Adult Low Dose Aspirin) alendronate 70 mg tablet 70 mg PO SA BONE HEALTH 06/15/23 01/15/24 History carbidopa 10 mg-levodopa 100 mg 1 tab PO TID PARKINSONS 06/15/23 01/20/24 History tablet estradiol 0.01% (0.1 mg/gram) 1 appful vaginal PRECIADO HORMONES 06/15/23 01/16/24 History vaginal cream clobazam 10 mg tablet 5 mg PO DAILY EPILEPSY 10/12/23 01/19/24 History calcium carbonate (Calcium 500) 500 mg PO Q4H PRN GERD 12/14/23 Unknown History ondansetron HCl 8 mg tablet 8 mg PO Q8H PRN NAUSEA 12/18/23 Unknown History ascorbic acid (vitamin C) 500 mg 500 mg PO DAILY SUPPLEMENT 01/20/24 01/20/24 History tablet acetaminophen 500 mg tablet 1,000 mg (2 x 500 mg) PO Q8H PRN 01/23/24 01/20/24 Rx PRN PAIN/FEVER 30 days #0 tabs sennosides 8.6 mg-docusate sodium 2 tab PO BID #0 tabs 01/23/24 Unknown Rx 50 mg tablet (Stool Softener-Stimulant Laxative) albuterol sulfate 90 mcg/actuation 2 puff inhalation Q4-6H PRN 01/02/25 Unknown History aerosol inhaler shortness of breath or wheezing amlodipine 10 mg tablet 10 mg PO DAILY 01/02/25 Unknown History bisacodyl 10 mg rectal suppository 10 mg [place] QDAY PRN constipation 01/02/25 Unknown History carboxymethylcellulose sodium 0.5 2 drp ophthalmic (eye) BID 01/02/25 Unknown History % eye drops (Refresh Tears) cranberry 500 mg capsule 500 mg PO QDAY UTI PREVENTION 01/02/25 Unknown History hydralazine 25 mg tablet 25 mg PO BID PRN HTN 01/02/25 Unknown History insulin glargine 100 unit/mL (3 20 unit subcut QHS DIABETES 01/02/25 Unknown History mL) subcutaneous pen (Lantus Solostar U-100 Insulin) insulin lispro 100 unit/mL 4 unit subcut QAC DIABETES 01/02/25 Unknown History subcutaneous pen lacosamide 150 mg tablet 150 mg PO QAM EPILEPSY 01/02/25 Unknown History lacosamide 200 mg tablet 200 mg PO QHS 01/02/25 Unknown History lactobacillus combination no.9 4 4,000 mmu cells PO QDAY 01/02/25 Unknown History billion cell capsule (Adult 50 Plus Probiotic) linagliptin 5 mg tablet (Tradjenta) 5 mg PO QDAY 01/02/25 03/19/25 History liver extract 2 cap PO DAILY 01/02/25 Unknown History polyethylene glycol 3350 17 17 g PO QDAY PRN constipation 01/02/25 Unknown History gram/dose oral powder pregabalin 75 mg capsule 75 mg PO QDAY 01/02/25 Unknown History sodium bicarbonate 650 mg tablet 650 mg PO BID 01/02/25 Unknown History dextran 70-hypromellose (PF) 0.1 1 drp ophthalmic (eye) DAILY PRN 03/13/25 Unknown History %-0.3 % eye drops in a dropperette PRN dry eye(s) (GenTeal Tears Moderate (PF)) empagliflozin 10 mg tablet 10 mg PO DAILY 03/13/25 03/19/25 History (Jardiance) cholecalciferol (vitamin D3) 50 50 mcg PO DAILY 03/20/25 Unknown History mcg (2,000 unit) capsule (Vitamin D3) citalopram 20 mg tablet 20 mg PO DAILY 03/20/25 Unknown History furosemide 40 mg tablet (Lasix) 40 mg PO DAILY 03/20/25 Unknown History Allergy/AdvReac Type Severity Reaction Status Date / Time amoxicillin (From Augmentin) Allergy Rash Verified 03/20/25 11:35 clavulanic acid (From Allergy Rash Verified 03/20/25 11:35 Augmentin) escitalopram (From Lexapro) Allergy Rash Verified 03/20/25 11:35 Food Allergies: Uncoded Allergy PT UNSURE Verified 03/20/25 11:40 OF REACTION shellfish derived Allergy Unknown Verified 03/20/25 11:35 hydroxychloroquine (From AdvReac Severe Unknown Verified 03/20/25 11:35 Plaquenil) house dust AdvReac NEEDS Verified 03/20/25 11:35 FOLLOW-UP lactulose AdvReac Diarrhea Verified 03/20/25 11:35 perfume AdvReac Unknown Verified 03/20/25 11:35 pineapple AdvReac Rash Verified 03/20/25 11:35 quinine AdvReac Unknown Verified 03/20/25 11:35 strawberry AdvReac Rash Verified 03/20/25 11:35 Sulfa (Sulfonamide AdvReac Unknown Verified 03/20/25 11:35 Antibiotics) Family History Brother Heart disease Hx CABG Hypertension Diabetes Mother Hypertension Surgical History History of permanent cardiac pacemaker placement (09/2024) History of breast surgery History of hysterectomy Social History household members: spouse Smoking Status: Never smoker alcohol intake: never substance use type: does not use caffeine: No what type of physical activity do you participate in: none seatbelt use: always do you feel safe at home: Yes Audit: Pertinent Findings Pertinent Findings EKG Perinent findings: 10/06/2024 AV dual paced rhythmn at 60 BPM Echo (EF%) pertinent findings: Normal LV, Mod. concentric LVH, EF =60%, Stage 1 diastolic dysfxn 02/19/2025 Consult pertinent findings: 01/02/2025 Assessment and Plan Assessment and Plan (1) History of permanent cardiac pacemaker placement: Status: Acute Comment: 11/15/17, 09/2024 Plan: Pacemaker is functioning appropriately. We will continue to monitor at routine scheduled pacemaker interrogations. (2) Paroxysmal atrial fibrillation: Status: Chronic Plan: Patient has not had any recurrence of her atrial fibrillation on her pacemaker interrogations. She will continue with her rate limiting medication. She is not anticoagulated due to her subdural hematoma. (3) Essential hypertension: Status: Chronic Plan: Blood pressure controlled on current medications. Will not make any adjustments. (4) Hypertriglyceridemia: Status: Chronic Plan: Patient will continue with moderate intensity statin. This is managed by her primary care doctor. (5) Decreased left ventricular function: Status: Acute Plan: Feel that we can decrease her lasix to once a day. She will continue with her Amlodipine and hydralazine. Would like to repeat an echo to reassess to help maximize GDMT. (6) Moderate mitral regurgitation: Status: Acute Plan: Would like to obtain an echo to reassess. (7) CHETNA (acute kidney injury): Status: Acute Plan: She follows with Dr. Duran at [facility] in [place]. Recommendation Anesthesia Recommendation Anesthesia recommendation: OPTIMIZED for anesthesia
--- NOTE | 2025-03-20 13:25 | PAT.ANESEVAL ---
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 When Was Last Pacemaker Check QUESTION #4 FULL TEXT: You/Your Family Experience fever (hyperthermia) with Anesthesia Last Oral Intake Last Oral intake: Last Oral Intake NPO since Meds taken in AM with sips of water? 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 Female Yes 03/20/25 11:56 HX of Motion Sickness No 03/20/25 11:56 HX of N/V After Surgery No 03/20/25 11:56 Non-Smoker Yes 03/20/25 11:56 Duration of Surgery greater No 03/20/25 11:56 than 60 minutes Number of Risk Factors 2 03/20/25 11:56 PONV Score Moderate Risk 03/20/25 11:56 Height & Weight Height & Weight: Anesthesia: Height & Weight Height 5 ft 1 in 03/13/25 21:04 Respiratory Assessment Respiratory Assessment - casting inspector: Respiratory Tract Infection Hx - casting inspector Hx Respiratory Tract Infection No 03/20/25 11:56 STOP Sleep Apnea STOP Sleep Apnea - casting inspector: STOP Sleep Apnea - casting inspector Hx Hypertension Yes 03/20/25 11:56 Hx Sleep Apnea No 03/20/25 11:56 CPAP No 09/25/24 07:50 BIPAP No 09/25/24 07:50 Do you snore loudly (louder No 03/20/25 11:56 than talking or can be heard Do you often feel tired/ No 03/20/25 11:56 fatigued/ sleepy during daytime? Has anyone observed you stop No 03/20/25 11:56 breathing during sleep? STOP Results Negative 03/20/25 11:56 QUESTION #5 FULL TEXT : Do you snore loudly (louder than talking or can be heard through closed doors)? 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 Specify any problems Hx of Preganancy in last 3 N/A 03/20/25 11:56 Months Nurse Filling Out Transfusion [email or web address] 03/20/25 11:56 & Questions: Date: 03/20/25 03/20/25 11:56 Time: 11:58 03/20/25 11:56 Patient unable to answer at this time (ie. confused, unrespo /Reproduction History /Reproductive History - casting inspector: /Reproductive Hx- casting inspector Hx Now Gestational Age (in weeks): EDC: Hx Hx Para Hx Section SAB No 12/14/23 11:35 PFSH Medical History Moderate mitral regurgitation Decreased left ventricular function Parkinsons disease Pneumonia Pacemaker malfunction Chronic UTI S/P extracorporeal shock wave therapy Bladder disease Failure to thrive in adult Glaucoma TBI (traumatic brain injury) Kidney stone Lives in half-way Insulin dependent diabetes mellitus Uses wheelchair Walker as ambulation aid Stroke/cerebrovascular accident Syncope Parkinson's disease Dietary restriction Heartburn History of edema History of echocardiogram Cardiology follow-up encounter Anxiety Non-smoker Kidney disease Atrial fibrillation Pacemaker Hypertension Seizures Obesity Type 2 diabetes mellitus Hypertriglyceridemia Chronic kidney disease (CKD) Paroxysmal atrial fibrillation Essential hypertension Dysuria Septic shock Junctional rhythm Tachy-maurizio syndrome Vaginal bleeding Breakthrough seizure HLD (hyperlipidemia) Hypertensive emergency without congestive heart failure Seizure Home Medications ?Medication ?Instructions ?Recorded ?Last Taken ?Type allopurinol 100 mg tablet 100 mg PO DAILY GOUT 12/10/22 01/20/24 History aspirin 81 mg tablet,delayed 81 mg PO DAILY HEART HEALTH 12/10/22 03/13/25 History release (Adult Low Dose Aspirin) alendronate 70 mg tablet 70 mg PO SA BONE [facility]ALTH 06/15/23 01/15/24 History carbidopa 10 mg-levodopa 100 mg 1 tab PO TID PARKINSONS 06/15/23 01/20/24 History tablet estradiol 0.01% (0.1 mg/gram) 1 appful vaginal PRECIADO HORMONES 06/15/23 01/16/24 History vaginal cream clobazam 10 mg tablet 5 mg PO DAILY EPILEPSY 10/12/23 01/19/24 History calcium carbonate (Calcium 500) 500 mg PO Q4H PRN GERD 12/14/23 Unknown History ondansetron HCl 8 mg tablet 8 mg PO Q8H PRN NAUSEA 12/18/23 Unknown History ascorbic acid (vitamin C) 500 mg 500 mg PO DAILY SUPPLEMENT 01/20/24 01/20/24 History tablet acetaminophen 500 mg tablet 1,000 mg (2 x 500 mg) PO Q8H PRN 01/23/24 01/20/24 Rx PRN PAIN/FEVER 30 days #0 tabs sennosides 8.6 mg-docusate sodium 2 tab PO BID #0 tabs 01/23/24 Unknown Rx 50 mg tablet (Stool Softener-Stimulant Laxative) albuterol sulfate 90 mcg/actuation 2 puff inhalation Q4-6H PRN 01/02/25 Unknown History aerosol inhaler shortness of breath or wheezing amlodipine 10 mg tablet 10 mg PO DAILY 01/02/25 Unknown History bisacodyl 10 mg rectal suppository 10 mg NM QDAY PRN constipation 01/02/25 Unknown History carboxymethylcellulose sodium 0.5 2 drp ophthalmic (eye) BID 01/02/25 Unknown History % eye drops (Refresh Tears) cranberry 500 mg capsule 500 mg PO QDAY UTI PREVENTION 01/02/25 Unknown History hydralazine 25 mg tablet 25 mg PO BID PRN HTN 01/02/25 Unknown History insulin glargine 100 unit/mL (3 20 unit subcut QHS DIABETES 01/02/25 Unknown History mL) subcutaneous pen (Lantus Solostar U-100 Insulin) insulin lispro 100 unit/mL 4 unit subcut QAC DIABETES 01/02/25 Unknown History subcutaneous pen lacosamide 150 mg tablet 150 mg PO QAM EPILEPSY 01/02/25 Unknown History lacosamide 200 mg tablet 200 mg PO QHS 01/02/25 Unknown History lactobacillus combination no.9 4 4,000 mmu cells PO QDAY 01/02/25 Unknown History billion cell capsule (Adult 50 Plus Probiotic) linagliptin 5 mg tablet (Tradjenta) 5 mg PO QDAY 01/02/25 03/19/25 History liver extract 2 cap PO DAILY 01/02/25 Unknown History polyethylene glycol 3350 17 17 g PO QDAY PRN constipation 01/02/25 Unknown History gram/dose oral powder pregabalin 75 mg capsule 75 mg PO QDAY 01/02/25 Unknown History sodium bicarbonate 650 mg tablet 650 mg PO BID 01/02/25 Unknown History dextran 70-hypromellose (PF) 0.1 1 drp ophthalmic (eye) DAILY PRN 03/13/25 Unknown History %-0.3 % eye drops in a dropperette PRN dry eye(s) (GenTeal Tears Moderate (PF)) empagliflozin 10 mg tablet 10 mg PO DAILY 03/13/25 03/19/25 History (Jardiance) cholecalciferol (vitamin D3) 50 50 mcg PO DAILY 03/20/25 Unknown History mcg (2,000 unit) capsule (Vitamin D3) citalopram 20 mg tablet 20 mg PO DAILY 03/20/25 Unknown History furosemide 40 mg tablet (Lasix) 40 mg PO DAILY 03/20/25 Unknown History Allergy/AdvReac Type Severity Reaction Status Date / Time amoxicillin (From Augmentin) Allergy Rash Verified 03/20/25 11:35 clavulanic acid (From Allergy Rash Verified 03/20/25 11:35 Augmentin) escitalopram (From Lexapro) Allergy Rash Verified 03/20/25 11:35 Food Allergies: Uncoded Allergy PT UNSURE Verified 03/20/25 11:40 OF REACTION shellfish derived Allergy Unknown Verified 03/20/25 11:35 hydroxychloroquine (From AdvReac Severe Unknown Verified 03/20/25 11:35 Plaquenil) house dust AdvReac NEEDS Verified 03/20/25 11:35 FOLLOW-UP lactulose AdvReac Diarrhea Verified 03/20/25 11:35 perfume AdvReac Unknown Verified 03/20/25 11:35 pineapple AdvReac Rash Verified 03/20/25 11:35 quinine AdvReac Unknown Verified 03/20/25 11:35 strawberry AdvReac Rash Verified 03/20/25 11:35 Sulfa (Sulfonamide AdvReac Unknown Verified 03/20/25 11:35 Antibiotics) Family History Brother Heart disease Hx CABG Hypertension Diabetes Mother Hypertension Surgical History History of permanent cardiac pacemaker placement (09/2024) History of breast surgery History of hysterectomy Social History household members: spouse Smoking Status: Never smoker alcohol intake: never substance use type: does not use caffeine: No what type of physical activity do you participate in: none seatbelt use: always do you feel safe at home: Yes Audit: Pertinent Findings Pertinent Findings EKG Perinent findings: 10/06/2024 AV dual paced rhythmn at 60 BPM Echo (EF%) pertinent findings: Normal LV, Mod. concentric LVH, EF =60%, Stage 1 diastolic dysfxn 02/19/2025 Consult pertinent findings: 01/02/2025 Assessment and Plan Assessment and Plan (1) History of permanent cardiac pacemaker placement: Status: Acute Comment: 11/15/17, 09/2024 Plan: Pacemaker is functioning appropriately. We will continue to monitor at routine scheduled pacemaker interrogations. (2) Paroxysmal atrial fibrillation: Status: Chronic Plan: Patient has not had any recurrence of her atrial fibrillation on her pacemaker interrogations. She will continue with her rate limiting medication. She is not anticoagulated due to her subdural hematoma. (3) Essential hypertension: Status: Chronic Plan: Blood pressure controlled on current medications. Will not make any adjustments. (4) Hypertriglyceridemia: Status: Chronic Plan: Patient will continue with moderate intensity statin. This is managed by her primary care doctor. (5) Decreased left ventricular function: Status: Acute Plan: Feel that we can decrease her lasix to once a day. She will continue with her Amlodipine and hydralazine. Would like to repeat an echo to reassess to help maximize GDMT. (6) Moderate mitral regurgitation: Status: Acute Plan: Would like to obtain an echo to reassess. (7) CHETNA (acute kidney injury): Status: Acute Plan: She follows with Dr. Duran at [facility] [place] in [place]. Recommendation Anesthesia Recommendation Anesthesia recommendation: OPTIMIZED for anesthesia
[2025-04-05] VITALS (8 sets, daily range): BP systolic 102–149; BP diastolic 62–78; PULSE 59–63; RESP 16; TEMP 36.1–36.3; O2SAT 95–98; BMI 31.7
[2025-04-05] MEDS: Lactated Ringers 1,000 ML 15 ML IV (07:09)
--- NOTE | 2025-04-05 07:11 | PRE.ANES_ITS ---
ASA Classification* ASA Classification ASA Classification: 3 Assessment & Plan Anesthesia* Anesthesia Assessment Anesthesia Assessment: Discussed sedation and/or anesthesia options, risks, benefits, and alternatives with patient/parents/legal guardian/POA. Questions invited. The patient/parents/legal guardian/POA seems to understand and agrees to proceed with anesthesia plan. Reviewed the physical assessment, medical history, allergy history and patient home medications list prior to surgery/procedure/anesthetic and documented any changes. Performed airway and anesthesia risk assessments. Anesthesia Type Anesthesia Type: MAC Anesthesia Focused Assessment* Temperature: 96.9 F Pulse Rate: 60 Blood Pressure: 149/65 Respiratory Rate: 16 Pulse Ox: 97 Airway Assessment Mouth opens: >3 cm Mallampati Score: III Labs Anesthesia Preop lab: CBC WBC 5.6 K/mm3 (4.4-11.0) 03/22/25 05:35 03/22/25 RBC 2.96 M/mm3 (4.2-5.4) L 03/22/25 05:35 03/22/25 Hgb 8.1 g/dL (12.0-15.0) L 03/22/25 05:35 03/22/25 Hct 26.0 % (37-47) L 03/22/25 05:35 03/22/25 Plt Count 174 K/mm3 (150-450) 03/22/25 05:35 03/22/25 CHEMISTRY Potassium 4.7 mmol/L (3.3-5.1) 03/22/25 05:35 03/22/25 Sodium 138 mmol/L (133-145) 03/22/25 05:35 03/22/25 Magnesium 2.2 mg/dL (1.5-2.2) 01/15/25 05:34 01/15/25 Phosphorus 5.1 mg/dL (2.7-4.5) H 02/27/25 07:05 02/27/25 BUN 38 mg/dL (4-19) H 03/22/25 05:35 03/22/25 Creatinine 1.70 mg/dL (0.70-1.20) H 03/22/25 05:35 Glucose 104 mg/dL (70-99) H 03/22/25 05:35 03/22/25 POC Glucose 101 mg/dL (74-106) 09/27/24 17:15 09/27/24 TSH 2.460 uIU/mL (0.358-3.740) 07/26/24 05:15 07/01 03/22 COAG PT 13.0 SECONDS (11.7-14.9) 03/13/25 21:10 Pre-Assessment Diagnosis/Proposed Procedure Planned Operative Procedure(s): COLONOSCOPY Anesthesia History 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 When Was Last Pacemaker Check QUESTION #4 FULL TEXT: You/Your Family Experience fever (hyperthermia) with Anesthesia Last Oral Intake Last Oral intake: Last Oral Intake NPO since 04:00 04/05/25 06:56 Meds taken in AM with sips of water? 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 Female Yes 03/20/25 11:56 HX of Motion Sickness No 03/20/25 11:56 HX of N/V After Surgery No 03/20/25 11:56 Non-Smoker Yes 03/20/25 11:56 Duration of Surgery greater No 03/20/25 11:56 than 60 minutes Number of Risk Factors 2 03/20/25 11:56 PONV Score Moderate Risk 03/20/25 11:56 Height & Weight Height & Weight: Anesthesia: Height & Weight Height 5 ft 1 in 04/05/25 06:56 Weight: 76.204 kg 04/05/25 06:56 Body Mass Index (BMI) 31.7 04/05/25 06:56 Respiratory Assessment Respiratory Assessment - circus rider: Respiratory Tract Infection Hx - circus rider Hx Respiratory Tract Infection No 03/20/25 11:56 STOP Sleep Apnea STOP Sleep Apnea - circus rider: STOP Sleep Apnea - circus rider Hx Hypertension Yes 03/20/25 11:56 Hx Sleep Apnea No 03/20/25 11:56 CPAP No 09/25/24 07:50 BIPAP No 09/25/24 07:50 Do you snore loudly (louder No 03/20/25 11:56 than talking or can be heard Do you often feel tired/ No 03/20/25 11:56 fatigued/ sleepy during daytime? Has anyone observed you stop No 03/20/25 11:56 breathing during sleep? STOP Results Negative 03/20/25 11:56 QUESTION #5 FULL TEXT : Do you snore loudly (louder than talking or can be heard through closed doors)? 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 Specify any problems Hx of Preganancy in last 3 N/A 03/20/25 11:56 Months Nurse Filling Out Transfusion [email or web address] 03/20/25 11:56 & Questions: Date: 03/20/25 03/20/25 11:56 Time: 11:58 03/20/25 11:56 Patient unable to answer at this time (ie. confused, unrespo /Reproduction History /Reproductive History - circus rider: /Reproductive Hx- circus rider Hx Now Gestational Age (in weeks): EDC: Hx Hx Para Hx Section SAB No 12/14/23 11:35 Active Medications Active Medications: Current Medications Generic Name Dose Route Start Last Admin Trade Name Freq PRN Reason Stop Dose Admin Lactated Ringer's 1,000 mls @ 15 mls/hr 04/05/25 06:30 04/05/25 07:09 IV 15 mls/hr .Q48H RENEE Administration PFSH Medical History Moderate mitral regurgitation Decreased left ventricular function Parkinsons disease Pneumonia Pacemaker malfunction Chronic UTI S/P extracorporeal shock wave therapy Bladder disease Failure to thrive in adult Glaucoma TBI (traumatic brain injury) Kidney stone Lives in fpc Insulin dependent diabetes mellitus Uses wheelchair Walker as ambulation aid Stroke/cerebrovascular accident Syncope Parkinson's disease Dietary restriction Heartburn History of edema History of echocardiogram Cardiology follow-up encounter Anxiety Non-smoker Kidney disease Atrial fibrillation Pacemaker Hypertension Seizures Obesity Type 2 diabetes mellitus Hypertriglyceridemia Chronic kidney disease (CKD) Paroxysmal atrial fibrillation Essential hypertension Dysuria Septic shock Junctional rhythm Tachy-maurizio syndrome Vaginal bleeding Breakthrough seizure HLD (hyperlipidemia) Hypertensive emergency without congestive heart failure Seizure Home Medications ?Medication ?Instructions ?Recorded ?Last Taken ?Type allopurinol 100 mg tablet 100 mg PO DAILY GOUT 3 04/04/25 History aspirin 81 mg tablet,delayed 81 mg PO DAILY HEART HEAL TH 12/10/22 04/01/25 History release (Adult Low Dose Aspirin) alendronate 70 mg tablet 70 mg PO BONE HEALTH 05/3003/31/25 History carbidopa 10 mg-levodopa 100 mg 1 tab PO TID PARKINSON S 06/15/23 04/04/25 History tablet estradiol 0.01% (0.1 mg/gram) 1 appful vaginal PRECIADO HORM ONES 06/15/23 04/01/25 History vaginal cream clobazam 10 mg tablet 5 mg PO DAILY EPILEPSY 10/1204/04/25 History calcium carbonate (Calcium 500) 500 mg PO Q4H PRN GERD 12/14/23 Unknown History ondansetron HCl 8 mg tablet 8 mg PO Q8H PRN NAUSEA Unknown History ascorbic acid (vitamin C) 500 mg 500 mg PO DAILY SUPPL EMENT 01/20/24 04/04/25 History tablet acetaminophen 500 mg tablet 1,000 mg (2 x 500 mg) PO Q 8H PRN 01/23/24 01/20/24 Rx PRN PAIN/FEVER 30 days #0 tabs sennosides 8.6 mg-docusate sodium 2 tab PO BID #0 tabs 01/23/24 Unknown Rx 50 mg tablet (Stool Softener-Stimulant Laxative) albuterol sulfate 90 mcg/actuation 2 puff inhalation Q 4-6H PRN 01/02/25 Unknown History aerosol inhaler shortness of breath or wheez ing amlodipine 10 mg tablet 10 mg PO DAILY 01/02/25 08/0 02/21 History bisacodyl 10 mg rectal suppository 10 mg [place] QDAY PRN c onstipation 01/02/25 Unknown History carboxymethylcellulose sodium 0.5 2 drp ophthalmic (ey e) BID 01/02/25 Unknown History % eye drops (Refresh Tears) cranberry 500 mg capsule 500 mg PO QDAY UTI PREVENTIO N 01/02/25 Unknown History hydralazine 25 mg tablet 25 mg PO BID PRN HTN 5 Unknown History insulin glargine 100 unit/mL (3 20 unit subcut QHS MELIDA BETES 01/02/25 04/03/25 History mL) subcutaneous pen (Lantus Solostar U-100 Insulin) insulin lispro 100 unit/mL 4 unit subcut QAC DIABETES 01/02/25 04/04/25 History subcutaneous pen lacosamide 150 mg tablet 150 mg PO QAM EPILEPSY 01/0204/04/25 History lacosamide 200 mg tablet 200 mg PO QHS 01/02/2504/04 History lactobacillus combination no.9 4 4,000 mmu cells PO QD AY 01/02/25 04/04/25 History billion cell capsule (Adult 50 Plus Probiotic) linagliptin 5 mg tablet (Tradjenta) 5 mg PO QDAY 01/0203/29/25 History liver extract 2 cap PO DAILY 01/02/25 0802/21 History polyethylene glycol 3350 17 17 g PO QDAY PRN constipat ion 01/02/25 Unknown History gram/dose oral powder pregabalin 75 mg capsule 75 mg PO QDAY 01/02/2504/04 History sodium bicarbonate 650 mg tablet 650 mg PO BID 5 04/04/25 History dextran 70-hypromellose (PF) 0.1 1 drp ophthalmic (eye ) DAILY PRN 03/13/25 Unknown History %-0.3 % eye drops in a dropperette PRN dry eye(s) (GenTeal Tears Moderate (PF)) empagliflozin 10 mg tablet 10 mg PO DAILY 03/13/2511/21 History (Jardiance) cholecalciferol (vitamin D3) 50 50 mcg PO DAILY Unknown History mcg (2,000 unit) capsule (Vitamin D3) citalopram 20 mg tablet 20 mg PO DAILY 03/20/25 Unkn own History furosemide 40 mg tablet (Lasix) 40 mg PO DAILY 5 04/04/25 History Allergy/AdvReac Type Severity Reaction Status Date / Time amoxicillin (From Augmentin) Allergy Rash Verified 04/05/25 06:46 clavulanic acid (From Allergy Rash Verified 04/05/25 06:46 Augmentin) escitalopram (From Lexapro) Allergy Rash Verified 04/05/25 06:46 Food Allergies: Uncoded Allergy PT UNSURE Verified 04/05/25 06:46 OF REACTION shellfish derived Allergy Unknown Verified 04/05/25 06:46 hydroxychloroquine (From AdvReac Severe Unknown Verified 04/05/25 06:46 Plaquenil) house dust AdvReac NEEDS Verified 04/05/25 06:46 FOLLOW-UP lactulose AdvReac Diarrhea Verified 04/05/25 06:46 perfume AdvReac Unknown Verified 04/05/25 06:46 pineapple AdvReac Rash Verified 04/05/25 06:46 quinine AdvReac Unknown Verified 04/05/25 06:46 strawberry AdvReac Rash Verified 04/05/25 06:46 Sulfa (Sulfonamide AdvReac Unknown Verified 04/05/25 06:46 Antibiotics) Family History Brother Heart disease Hx CABG Hypertension Diabetes Mother Hypertension Surgical History History of permanent cardiac pacemaker placement (09/2024) History of breast surgery History of hysterectomy Social History household members: spouse Smoking Status: Never smoker alcohol intake: never substance use type: does not use caffeine: No what type of physical activity do you participate in: none seatbelt use: always do you feel safe at home: Yes Review of Systems (Anesthesia) ROS Narrative System reviewed and no additional complaints, except as documented.
--- NOTE | 2025-04-05 07:11 | PRE.ANES_ITS ---
ASA Classification* ASA Classification ASA Classification: 3 Assessment & Plan Anesthesia* Anesthesia Assessment Anesthesia Assessment: Discussed sedation and/or anesthesia options, risks, benefits, and alternatives with patient/parents/legal guardian/POA. Questions invited. The patient/parents/legal guardian/POA seems to understand and agrees to proceed with anesthesia plan. Reviewed the physical assessment, medical history, allergy history and patient home medications list prior to surgery/procedure/anesthetic and documented any changes. Performed airway and anesthesia risk assessments. Anesthesia Type Anesthesia Type: MAC Anesthesia Focused Assessment* Temperature: 96.9 F Pulse Rate: 60 Blood Pressure: 149/65 Respiratory Rate: 16 Pulse Ox: 97 Airway Assessment Mouth opens: >3 cm Mallampati Score: III Labs Anesthesia Preop lab: CBC WBC 5.6 K/mm3 (4.4-11.0) 03/22/25 05:35 03/22/25 RBC 2.96 M/mm3 (4.2-5.4) L 03/22/25 05:35 03/22/25 Hgb 8.1 g/dL (12.0-15.0) L 03/22/25 05:35 03/22/25 Hct 26.0 % (37-47) L 03/22/25 05:35 03/22/25 Plt Count 174 K/mm3 (150-450) 03/22/25 05:35 03/22/25 CHEMISTRY Potassium 4.7 mmol/L (3.3-5.1) 03/22/25 05:35 03/22/25 Sodium 138 mmol/L (133-145) 03/22/25 05:35 03/22/25 Magnesium 2.2 mg/dL (1.5-2.2) 01/15/25 05:34 01/15/25 Phosphorus 5.1 mg/dL (2.7-4.5) H 02/27/25 07:05 02/27/25 BUN 38 mg/dL (4-19) H 03/22/25 05:35 03/22/25 Creatinine 1.70 mg/dL (0.70-1.20) H 03/22/25 05:35 Glucose 104 mg/dL (70-99) H 03/22/25 05:35 03/22/25 POC Glucose 101 mg/dL (74-106) 09/27/24 17:15 09/27/24 TSH 2.460 uIU/mL (0.358-3.740) 07/26/24 05:15 07/01 03/22 COAG PT 13.0 SECONDS (11.7-14.9) 03/13/25 21:10 Pre-Assessment Diagnosis/Proposed Procedure Planned Operative Procedure(s): COLONOSCOPY Anesthesia History 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 When Was Last Pacemaker Check QUESTION #4 FULL TEXT: You/Your Family Experience fever (hyperthermia) with Anesthesia Last Oral Intake Last Oral intake: Last Oral Intake NPO since 04:00 04/05/25 06:56 Meds taken in AM with sips of water? 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 Female Yes 03/20/25 11:56 HX of Motion Sickness No 03/20/25 11:56 HX of N/V After Surgery No 03/20/25 11:56 Non-Smoker Yes 03/20/25 11:56 Duration of Surgery greater No 03/20/25 11:56 than 60 minutes Number of Risk Factors 2 03/20/25 11:56 PONV Score Moderate Risk 03/20/25 11:56 Height & Weight Height & Weight: Anesthesia: Height & Weight Height 5 ft 1 in 04/05/25 06:56 Weight: 76.204 kg 04/05/25 06:56 Body Mass Index (BMI) 31.7 04/05/25 06:56 Respiratory Assessment Respiratory Assessment - 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 Has anyone observed you stop No 03/20/25 11:56 breathing during sleep? STOP Results Negative 03/20/25 11:56 QUESTION #5 FULL TEXT : Do you snore loudly (louder than talking or can be heard through closed doors)? 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 Specify any problems Hx of Preganancy in last 3 N/A 03/20/25 11:56 Months Nurse Filling Out Transfusion [email or web address] 03/20/25 11:56 & Questions: Date: 03/20/25 03/20/25 11:56 Time: 11:58 03/20/25 11:56 Patient unable to answer at this time (ie. 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 Hx Now Gestational Age (in weeks): EDC: Hx Hx Para Hx Section SAB No 12/14/23 11:35 Active Medications Active Medications: Current Medications Generic Name Dose Route Start Last Admin Trade Name Freq PRN Reason Stop Dose Admin Lactated Ringer's 1,000 mls @ 15 mls/hr 04/05/25 06:30 04/05/25 07:09 IV 15 mls/hr .Q48H RENEE Administration PFSH Medical History Moderate mitral regurgitation Decreased left ventricular function Parkinsons disease Pneumonia Pacemaker malfunction Chronic UTI S/P extracorporeal shock wave therapy Bladder disease Failure to thrive in adult Glaucoma TBI (traumatic brain injury) Kidney stone Lives in [facility] Insulin dependent diabetes mellitus Uses wheelchair Walker as ambulation aid Stroke/cerebrovascular accident Syncope Parkinson's disease Dietary restriction Heartburn History of edema History of echocardiogram Cardiology follow-up encounter Anxiety Non-smoker Kidney disease Atrial fibrillation Pacemaker Hypertension Seizures Obesity Type 2 diabetes mellitus Hypertriglyceridemia Chronic kidney disease (CKD) Paroxysmal atrial fibrillation Essential hypertension Dysuria Septic shock Junctional rhythm Tachy-maurizio syndrome Vaginal bleeding Breakthrough seizure HLD (hyperlipidemia) Hypertensive emergency without congestive heart failure Seizure Home Medications ?Medication ?Instructions ?Recorded ?Last Taken ?Type allopurinol 100 mg tablet 100 mg PO DAILY GOUT 3 04/04/25 History aspirin 81 mg tablet,delayed 81 mg PO DAILY HEART HEAL TH 12/10/22 04/01/25 History release (Adult Low Dose Aspirin) alendronate 70 mg tablet 70 mg PO [facility] 05/3003/31/25 History carbidopa 10 mg-levodopa 100 mg 1 tab PO TID PARKINSON S 06/15/23 04/04/25 History tablet estradiol 0.01% (0.1 mg/gram) 1 appful vaginal PRECIADO HORM ONES 06/15/23 04/01/25 History vaginal cream clobazam 10 mg tablet 5 mg PO DAILY EPILEPSY 10/1204/04/25 History calcium carbonate (Calcium 500) 500 mg PO Q4H PRN GERD 12/14/23 Unknown History ondansetron HCl 8 mg tablet 8 mg PO Q8H PRN NAUSEA Unknown History ascorbic acid (vitamin C) 500 mg 500 mg PO DAILY SUPPL EMENT 01/20/24 04/04/25 History tablet acetaminophen 500 mg tablet 1,000 mg (2 x 500 mg) PO Q 8H PRN 01/23/24 01/20/24 Rx PRN PAIN/FEVER 30 days #0 tabs sennosides 8.6 mg-docusate sodium 2 tab PO BID #0 tabs 01/23/24 Unknown Rx 50 mg tablet (Stool Softener-Stimulant Laxative) albuterol sulfate 90 mcg/actuation 2 puff inhalation Q 4-6H PRN 01/02/25 Unknown History aerosol inhaler shortness of breath or wheez ing amlodipine 10 mg tablet 10 mg PO DAILY 01/02/25 08/0 02/21 History bisacodyl 10 mg rectal suppository 10 mg ND QDAY PRN c onstipation 01/02/25 Unknown History carboxymethylcellulose sodium 0.5 2 drp ophthalmic (ey e) BID 01/02/25 Unknown History % eye drops (Refresh Tears) cranberry 500 mg capsule 500 mg PO QDAY UTI PREVENTIO N 01/02/25 Unknown History hydralazine 25 mg tablet 25 mg PO BID PRN HTN 5 Unknown History insulin glargine 100 unit/mL (3 20 unit subcut QHS MELIDA BETES 01/02/25 04/03/25 History mL) subcutaneous pen (Lantus Solostar U-100 Insulin) insulin lispro 100 unit/mL 4 unit subcut QAC DIABETES 01/02/25 04/04/25 History subcutaneous pen lacosamide 150 mg tablet 150 mg PO QAM EPILEPSY 01/0204/04/25 History lacosamide 200 mg tablet 200 mg PO QHS 01/02/2504/04 History lactobacillus combination no.9 4 4,000 mmu cells PO QD AY 01/02/25 04/04/25 History billion cell capsule (Adult 50 Plus Probiotic) linagliptin 5 mg tablet (Tradjenta) 5 mg PO QDAY 01/0203/29/25 History liver extract 2 cap PO DAILY 01/02/25 0802/21 History polyethylene glycol 3350 17 17 g PO QDAY PRN constipat ion 01/02/25 Unknown History gram/dose oral powder pregabalin 75 mg capsule 75 mg PO QDAY 01/02/2504/04 History sodium bicarbonate 650 mg tablet 650 mg PO BID 5 04/04/25 History dextran 70-hypromellose (PF) 0.1 1 drp ophthalmic (eye ) DAILY PRN 03/13/25 Unknown History %-0.3 % eye drops in a dropperette PRN dry eye(s) (GenTeal Tears Moderate (PF)) empagliflozin 10 mg tablet 10 mg PO DAILY 03/13/2511/21 History (Jardiance) cholecalciferol (vitamin D3) 50 50 mcg PO DAILY Unknown History mcg (2,000 unit) capsule (Vitamin D3) citalopram 20 mg tablet 20 mg PO DAILY 03/20/25 Unkn own History furosemide 40 mg tablet (Lasix) 40 mg PO DAILY 5 04/04/25 History Allergy/AdvReac Type Severity Reaction Status Date / Time amoxicillin (From Augmentin) Allergy Rash Verified 04/05/25 06:46 clavulanic acid (From Allergy Rash Verified 04/05/25 06:46 Augmentin) escitalopram (From Lexapro) Allergy Rash Verified 04/05/25 06:46 Food Allergies: Uncoded Allergy PT UNSURE Verified 04/05/25 06:46 OF REACTION shellfish derived Allergy Unknown Verified 04/05/25 06:46 hydroxychloroquine (From AdvReac Severe Unknown Verified 04/05/25 06:46 Plaquenil) house dust AdvReac NEEDS Verified 04/05/25 06:46 FOLLOW-UP lactulose AdvReac Diarrhea Verified 04/05/25 06:46 perfume AdvReac Unknown Verified 04/05/25 06:46 pineapple AdvReac Rash Verified 04/05/25 06:46 quinine AdvReac Unknown Verified 04/05/25 06:46 strawberry AdvReac Rash Verified 04/05/25 06:46 Sulfa (Sulfonamide AdvReac Unknown Verified 04/05/25 06:46 Antibiotics) Family History Brother Heart disease Hx CABG Hypertension Diabetes Mother Hypertension Surgical History History of permanent cardiac pacemaker placement (09/2024) History of breast surgery History of hysterectomy Social History household members: spouse Smoking Status: Never smoker alcohol intake: never substance use type: does not use caffeine: No what type of physical activity do you participate in: none seatbelt use: always do you feel safe at home: Yes Review of Systems (Anesthesia) ROS Narrative System reviewed and no additional complaints, except as documented.
--- NOTE | 2025-04-05 07:15 | COLBX_PTH ---
PATIENT: HERMINIA CARDONA LOC: [facility] U#:[id number] AGE/SX: 75/F ROOM: RE04/05/[address]: Dr. Darrell Barry DO : 1950 BED: DIS: 04/05/2025 SPEC #: [id number] RECD: 04/05/25 08:20 STATUS: YUMIKO REAshanti #: [id number] ELIZABETH: 04/05/25 07:[address]: Darrell Barry DEPT: SURGICAL PATHOLOGY RECD BY: Norm Bustillo ENTERED: 04/05/25 09:47 SP TYPE: COLON BX LUIS DR: Dr. Royal Ellis Sr., DO Tissues: A - COLON BIOPSY B - COLON BIOPSY Procedures: Trichrome (control) Special Stain Group I Surgery Specimen Level IV HEADER OPERATION: Colonoscopy, biopsy PRE-OP DIAGNOSIS: Screening for colon cancer TISSUE SUBMITTED: A- Hepatic flexure polyp biopsy, B- Random colonic biopsy MICROSCOPIC DIAGNOSIS A. Hepatic flexure, polyp, biopsy: - Tubular adenoma. B. Colon, random, biopsy: - Focal active colitis - see note. - Melanosis coli. - The histologic features of microscopic colitis are not demonstrated. - Trichrome stain is negative for thickening of the subepithelial collagen table. Note: Focal mild acute inflammation is noted without features of chronicity.? This is a nonspecific finding which may result from bowel prep artifact, mild infection, medication injury (eg: NSAIDs) and ischemia.? Recommend correlation with clinical and endoscopic findings. MICROSCOPIC DESCRIPTION Slides are reviewed. All matched controls reacted appropriately. These tests were developed and their performance characteristics determined by [facility]. They may not have been cleared or approved by the U.S. Food and Drug Administration. The FDA has determined that such clearance or approval is not necessary.? The above immunohistochemical/dualISH?markers are reviewed by the Pathologist. GROSS DESCRIPTION A. Received in fixative is one container labeled with the patient's name and designated Hepatic flexure polyp biopsy. The specimen consists of one irregular fragment of light valenzuela soft tissue that measures 0.3 cm. The specimen is totally submitted in one cassette. B. Received in fixative is one container labeled with the patient's name and designated Random colonic biopsy. The specimen consists of multiple irregular fragments of light valenzuela soft tissue that in aggregate measure 1.5 x 0.7 x 0.1 cm. The specimen is totally submitted in one cassette. [place] 04/05/2025 CPT:41144r9,14100
--- NOTE | 2025-04-05 07:15 | COLBX_PTH ---
PATIENT: HERMINIA CARDONA LOC: [facility] U#:[id number] AGE/SX: 75/F ROOM: RE04/05/[address]: Dr. Darrell Barry DO : 1950 BED: DIS: 04/05/2025 SPEC #: [id number] RECD: 04/05/25 08:20 STATUS: YUMIKO REAshanti #: [id number] ELIZABETH: 04/05/25 07:[address]: Darrell Barry DEPT: SURGICAL PATHOLOGY RECD BY: Norm Bustillo ENTERED: 04/05/25 09:47 SP TYPE: COLON BX LUIS DR: Dr. Royal Ellis Sr., DO Tissues: A - COLON BIOPSY B - COLON BIOPSY Procedures: Trichrome (control) Special Stain Group I Surgery Specimen Level IV HEADER OPERATION: Colonoscopy, biopsy PRE-OP DIAGNOSIS: Screening for colon cancer TISSUE SUBMITTED: A- Hepatic flexure polyp biopsy, B- Random colonic biopsy MICROSCOPIC DIAGNOSIS A. Hepatic flexure, polyp, biopsy: - Tubular adenoma. B. Colon, random, biopsy: - Focal active colitis - see note. - Melanosis coli. - The histologic features of microscopic colitis are not demonstrated. - Trichrome stain is negative for thickening of the subepithelial collagen table. Note: Focal mild acute inflammation is noted without features of chronicity.? This is a nonspecific finding which may result from bowel prep artifact, mild infection, medication injury (eg: NSAIDs) and ischemia.? Recommend correlation with clinical and endoscopic findings. MICROSCOPIC DESCRIPTION Slides are reviewed. All matched controls reacted appropriately. These tests were developed and their performance characteristics determined by [facility]. They may not have been cleared or approved by the U.S. Food and Drug Administration. The FDA has determined that such clearance or approval is not necessary.? The above immunohistochemical/dualISH?markers are reviewed by the Pathologist. GROSS DESCRIPTION A. Received in fixative is one container labeled with the patient's name and designated Hepatic flexure polyp biopsy. The specimen consists of one irregular fragment of light valenzuela soft tissue that measures 0.3 cm. The specimen is totally submitted in one cassette. B. Received in fixative is one container labeled with the patient's name and designated Random colonic biopsy. The specimen consists of multiple irregular fragments of light valenzuela soft tissue that in aggregate measure 1.5 x 0.7 x 0.1 cm. The specimen is totally submitted in one cassette. [place] 04/05/2025 CPT:11215u5,28365
--- NOTE | 2025-04-05 07:17 | PCM.HP.STD ---
HPI - General General Date of Admission: 04/05/25 Date of Service: 04/05/25 Chief Complaint: Screening colonoscopy HPI Narrative HERMINIA CARDONA, is a 75 F who presents today for screening colonoscopy. She has had colonoscopies in the past. She does have a past medical history of diabetes, seizure disorder, stage III CKD and some lower extremity swelling. She also has a past medical history of paroxysmal atrial fibrillation but is only on aspirin on a daily basis. [facility] Medical History Moderate mitral regurgitation Decreased left ventricular function Parkinsons disease Pneumonia Pacemaker malfunction Chronic UTI S/P extracorporeal shock wave therapy Bladder disease Failure to thrive in adult Glaucoma TBI (traumatic brain injury) Kidney stone Lives in longterm Insulin dependent diabetes mellitus Uses wheelchair Walker as ambulation aid Stroke/cerebrovascular accident Syncope Parkinson's disease Dietary restriction Heartburn History of edema History of echocardiogram Cardiology follow-up encounter Anxiety Non-smoker Kidney disease Atrial fibrillation Pacemaker Hypertension Seizures Obesity Type 2 diabetes mellitus Hypertriglyceridemia Chronic kidney disease (CKD) Paroxysmal atrial fibrillation Essential hypertension Dysuria Septic shock Junctional rhythm Tachy-maurizio syndrome Vaginal bleeding Breakthrough seizure HLD (hyperlipidemia) Hypertensive emergency without congestive heart failure Seizure Home Medications ?Medication ?Instructions ?Recorded ?Last Taken ?Type allopurinol 100 mg tablet 100 mg PO DAILY GOUT 12/10/22 04/04/25 History aspirin 81 mg tablet,delayed 81 mg PO DAILY HEART HEALTH 12/10/22 04/01/25 History release (Adult Low Dose Aspirin) alendronate 70 mg tablet 70 mg PO SA [facility] 06/15/23 03/31/25 History carbidopa 10 mg-levodopa 100 mg 1 tab PO TID PARKINSONS 06/15/23 04/04/25 History tablet estradiol 0.01% (0.1 mg/gram) 1 appful vaginal PRECIADO HORMONES 06/15/23 04/01/25 History vaginal cream clobazam 10 mg tablet 5 mg PO DAILY EPILEPSY 10/12/23 04/04/25 History calcium carbonate (Calcium 500) 500 mg PO Q4H PRN GERD 12/14/23 Unknown History ondansetron HCl 8 mg tablet 8 mg PO Q8H PRN NAUSEA 12/18/23 Unknown History ascorbic acid (vitamin C) 500 mg 500 mg PO DAILY SUPPLEMENT 01/20/24 04/04/25 History tablet acetaminophen 500 mg tablet 1,000 mg (2 x 500 mg) PO Q8H PRN 01/23/24 01/20/24 Rx PRN PAIN/FEVER 30 days #0 tabs sennosides 8.6 mg-docusate sodium 2 tab PO BID #0 tabs 01/23/24 Unknown Rx 50 mg tablet (Stool Softener-Stimulant Laxative) albuterol sulfate 90 mcg/actuation 2 puff inhalation Q4-6H PRN 01/02/25 Unknown History aerosol inhaler shortness of breath or wheezing amlodipine 10 mg tablet 10 mg PO DAILY 01/02/25 04/04/25 History bisacodyl 10 mg rectal suppository 10 mg SD QDAY PRN constipation 01/02/25 Unknown History carboxymethylcellulose sodium 0.5 2 drp ophthalmic (eye) BID 01/02/25 Unknown History % eye drops (Refresh Tears) cranberry 500 mg capsule 500 mg PO QDAY UTI PREVENTION 01/02/25 Unknown History hydralazine 25 mg tablet 25 mg PO BID PRN HTN 01/02/25 Unknown History insulin glargine 100 unit/mL (3 20 unit subcut QHS DIABETES 01/02/25 04/03/25 History mL) subcutaneous pen (Lantus Solostar U-100 Insulin) insulin lispro 100 unit/mL [address] [facility] DIABETES 01/02/25 04/04/25 History subcutaneous pen lacosamide 150 mg tablet 150 mg PO QAM EPILEPSY 01/02/25 04/04/25 History lacosamide 200 mg tablet 200 mg PO QHS 01/02/25 04/04/25 History lactobacillus combination no.9 4 4,000 mmu cells PO QDAY 01/02/25 04/04/25 History billion cell capsule (Adult 50 Plus Probiotic) linagliptin 5 mg tablet (Tradjenta) 5 mg PO QDAY 01/02/25 03/29/25 History liver extract 2 cap PO DAILY 01/02/25 04/04/25 History polyethylene glycol 3350 17 17 g PO QDAY PRN constipation 01/02/25 Unknown History gram/dose oral powder pregabalin 75 mg capsule 75 mg PO QDAY 01/02/25 04/04/25 History sodium bicarbonate 650 mg tablet 650 mg PO BID 01/02/25 04/04/25 History dextran 70-hypromellose (PF) 0.1 1 drp ophthalmic (eye) DAILY PRN 03/13/25 Unknown History %-0.3 % eye drops in a dropperette PRN dry eye(s) (GenTeal Tears Moderate (PF)) empagliflozin 10 mg tablet 10 mg PO DAILY 03/13/25 04/01/25 History (Jardiance) cholecalciferol (vitamin D3) 50 50 mcg PO DAILY 03/20/25 Unknown History mcg (2,000 unit) capsule (Vitamin D3) citalopram 20 mg tablet 20 mg PO DAILY 03/20/25 Unknown History furosemide 40 mg tablet (Lasix) 40 mg PO DAILY 03/20/25 04/04/25 History Allergy/AdvReac Type Severity Reaction Status Date / Time amoxicillin (From Augmentin) Allergy Rash Verified 04/05/25 06:46 clavulanic acid (From Allergy Rash Verified 04/05/25 06:46 Augmentin) escitalopram (From Lexapro) Allergy Rash Verified 04/05/25 06:46 Food Allergies: Uncoded Allergy PT UNSURE Verified 04/05/25 06:46 OF REACTION shellfish derived Allergy Unknown Verified 04/05/25 06:46 hydroxychloroquine (From AdvReac Severe Unknown Verified 04/05/25 06:46 Plaquenil) house dust AdvReac NEEDS Verified 04/05/25 06:46 FOLLOW-UP lactulose AdvReac Diarrhea Verified 04/05/25 06:46 perfume AdvReac Unknown Verified 04/05/25 06:46 pineapple AdvReac Rash Verified 04/05/25 06:46 quinine AdvReac Unknown Verified 04/05/25 06:46 strawberry AdvReac Rash Verified 04/05/25 06:46 Sulfa (Sulfonamide AdvReac Unknown Verified 04/05/25 06:46 Antibiotics) Family History Brother Heart disease Hx CABG Hypertension Diabetes Mother Hypertension Surgical History History of permanent cardiac pacemaker placement (09/2024) History of breast surgery History of hysterectomy Social History household members: spouse Smoking Status: Never smoker alcohol intake: never substance use type: does not use caffeine: No what type of physical activity do you participate in: none seatbelt use: always do you feel safe at home: Yes ROS Constitutional Constitutional: Denies fatigue, fever(s), poor appetite, weight gain or weight loss Gastrointestinal Gastrointestinal: Denies belching, bloating, change in bowel habits, change in stool character, chewing difficulty, coffee ground emesis, constipation, cramping, diarrhea, dyspepsia, dysphagia, early satiety, excessive flatus, fecal incontinence, heartburn, hematemesis, hematochezia, hemorrhoids, loose stools, melena, nausea, odynophagia, rectal bleeding, tenesmus, vomiting or weight changes Vital Signs Vital Signs Vital Signs: 04/05/25 06:54 04/05/25 06:56 04/05/25 07:11 Temperature 96.9 F L 96.9 F L Temperature Source Temporal Pulse Rate 60 60 Respiratory Rate 16 16 Respiratory Pattern Irregular Blood Pressure 149/65 H 149/65 H Blood Pressure Mean 93 Blood Pressure Source Monitor Blood Pressure Position Semi-Fowlers Blood Pressure Location Right Arm Pulse Ox 97 97 Oxygen Delivery Method Room Air Weight Weight: 168 lb Body Mass Index (BMI) 31.7 Physical Exam Const alert, oriented x3, no apparent distress and healthy appearing General Appearance: cooperative GI normal to inspection, nondistended, normoactive bowel sounds, soft to palpation, non-tender and non-distended Percussion: normal to percussion Rectal Exam: deferred Assessment & Plan Assessment/Plan (1) Screening for colon cancer: PLAN: She was explained alternatives, risk and benefits including not withstanding bleeding, infection, sepsis, perforation, need for charge and . She will have an ASA of 3.
--- NOTE | 2025-04-05 08:03 | OP.COLON_ITS ---
Patient Name: Lucas Nash Procedure Date: 04/05/2025 7:24 AM Date of : 1950 Age: 75 Procedure: Colonoscopy Indications: Screening for colorectal malignant neoplasm Providers: Darrell Barry DO Referring MD: Royal Ellis Sr., Do Medicines: Monitored Anesthesia Care Patient Profile: This is a 75 year old female. Refer to note in patient chart for documentation of history and physical. Last Colonoscopy: several years ago. Complications: No immediate complications. Procedure: Pre-Anesthesia Assessment: - Prior to the procedure, a History and Physical was performed, and patient medications and allergies were reviewed. The patient is competent. The risks and benefits of the procedure and the sedation options and risks were discussed with the patient. All questions were answered and informed consent was obtained. Patient identification and proposed procedure were verified by the physician in the pre-procedure area. Mental Status Examination: alert and oriented. Airway Examination: normal oropharyngeal airway and neck mobility. Respiratory Examination: clear to auscultation. CV Examination: normal. Prophylactic Antibiotics: The patient does not require prophylactic antibiotics. Prior Anticoagulants: The patient has taken no anticoagulant or antiplatelet agents except for NSAID medication. ASA Grade Assessment: II - A patient with mild systemic disease. After reviewing the risks and benefits, the patient was deemed in satisfactory condition to undergo the procedure. The anesthesia plan was to use monitored anesthesia care (MAC). Immediately prior to administration of medications, the patient was re-assessed for adequacy to receive sedatives. The heart rate, respiratory rate, oxygen saturations, blood pressure, adequacy of pulmonary ventilation, and response to care were monitored throughout the procedure. The physical status of the patient was re-assessed after the procedure. After I obtained informed consent, the scope was passed under direct vision. Throughout the procedure, the patient's blood pressure, pulse, and oxygen saturations were monitored continuously. The colonoscope was introduced through the anus and advanced to the cecum, identified by appendiceal orifice and ileocecal valve. The colonoscopy was performed without difficulty. The patient tolerated the procedure well. The quality of the bowel preparation was adequate. The ileocecal valve, appendiceal orifice, and rectum were photographed. Scope In: 7:37:09 AM Scope Withdrawal Time 0 hours 8 minutes 47 seconds Scope Out: 7:54:50 AM Total Procedure Duration Time 0 hours 17 minutes 41 seconds Findings: The perianal and digital rectal examinations were normal. A few small-mouthed diverticula were found in the recto-sigmoid colon and sigmoid colon. A diffuse area of mild melanosis was found in the entire colon. Biopsies were taken with a cold forceps for histology. Verification of patient identification for the specimen was done. Estimated blood loss was minimal. A 5 mm polyp was found in the hepatic flexure. The polyp was sessile. The polyp was removed with a jumbo cold forceps. Resection and retrieval were complete. Verification of patient identification for the specimen was done. Estimated blood loss was minimal. Stool was found in the sigmoid colon, in the descending colon, in the ascending colon and in the cecum. Impression: - Diverticulosis in the recto-sigmoid colon and in the sigmoid colon. - Melanosis in the colon. Biopsied. - One 5 mm polyp at the hepatic flexure, removed with a jumbo cold forceps. Resected and retrieved. - Stool in the sigmoid colon, in the descending colon, in the ascending colon and in the cecum. Recommendation: - Discharge patient to home. - Resume previous diet. - Continue present medications. - Await pathology results. - Repeat colonoscopy in 5 years for surveillance. Procedure Code(s): --- Professional --- 91726, Colonoscopy, flexible; with biopsy, single or multiple CPT copyright 2021 [employer]. All rights reserved. The codes documented in this report are preliminary and upon medical biller coder review may be revised to meet current compliance requirements. Darrell Barry DO 04/05/2025 8:03:14 AM This report has been signed electronically. Number of Addenda: 0 Note Initiated On: 04/05/2025 7:24 AM
--- NOTE | 2025-04-05 08:03 | OP.COLON_ITS ---
Patient Name: Lucas Nash Procedure Date: 04/05/2025 7:24 AM Date of : 1950 Age: 75 Procedure: Colonoscopy Indications: Screening for colorectal malignant neoplasm Providers: Darrell Barry DO Referring MD: Royal Ellis Sr., Do Medicines: Monitored Anesthesia Care Patient Profile: This is a 75 year old female. Refer to note in patient chart for documentation of history and physical. Last Colonoscopy: several years ago. Complications: No immediate complications. Procedure: Pre-Anesthesia Assessment: - Prior to the procedure, a History and Physical was performed, and patient medications and allergies were reviewed. The patient is competent. The risks and benefits of the procedure and the sedation options and risks were discussed with the patient. All questions were answered and informed consent was obtained. Patient identification and proposed procedure were verified by the physician in the pre-procedure area. Mental Status Examination: alert and oriented. Airway Examination: normal oropharyngeal airway and neck mobility. Respiratory Examination: clear to auscultation. CV Examination: normal. Prophylactic Antibiotics: The patient does not require prophylactic antibiotics. Prior Anticoagulants: The patient has taken no anticoagulant or antiplatelet agents except for NSAID medication. ASA Grade Assessment: II - A patient with mild systemic disease. After reviewing the risks and benefits, the patient was deemed in satisfactory condition to undergo the procedure. The anesthesia plan was to use monitored anesthesia care (MAC). Immediately prior to administration of medications, the patient was re-assessed for adequacy to receive sedatives. The heart rate, respiratory rate, oxygen saturations, blood pressure, adequacy of pulmonary ventilation, and response to care were monitored throughout the procedure. The physical status of the patient was re-assessed after the procedure. After I obtained informed consent, the scope was passed under direct vision. Throughout the procedure, the patient's blood pressure, pulse, and oxygen saturations were monitored continuously. The colonoscope was introduced through the anus and advanced to the cecum, identified by appendiceal orifice and ileocecal valve. The colonoscopy was performed without difficulty. The patient tolerated the procedure well. The quality of the bowel preparation was adequate. The ileocecal valve, appendiceal orifice, and rectum were photographed. Scope In: 7:37:09 AM Scope Withdrawal Time 0 hours 8 minutes 47 seconds Scope Out: 7:54:50 AM Total Procedure Duration Time 0 hours 17 minutes 41 seconds Findings: The perianal and digital rectal examinations were normal. A few small-mouthed diverticula were found in the recto-sigmoid colon and sigmoid colon. A diffuse area of mild melanosis was found in the entire colon. Biopsies were taken with a cold forceps for histology. Verification of patient identification for the specimen was done. Estimated blood loss was minimal. A 5 mm polyp was found in the hepatic flexure. The polyp was sessile. The polyp was removed with a jumbo cold forceps. Resection and retrieval were complete. Verification of patient identification for the specimen was done. Estimated blood loss was minimal. Stool was found in the sigmoid colon, in the descending colon, in the ascending colon and in the cecum. Impression: - Diverticulosis in the recto-sigmoid colon and in the sigmoid colon. - Melanosis in the colon. Biopsied. - One 5 mm polyp at the hepatic flexure, removed with a jumbo cold forceps. Resected and retrieved. - Stool in the sigmoid colon, in the descending colon, in the ascending colon and in the cecum. Recommendation: - Discharge patient to home. - Resume previous diet. - Continue present medications. - Await pathology results. - Repeat colonoscopy in 5 years for surveillance. Procedure Code(s): --- Professional --- 10095, Colonoscopy, flexible; with biopsy, single or multiple CPT copyright 2021 [employer]. All rights reserved. The codes documented in this report are preliminary and upon roving marker review may be revised to meet current compliance requirements. Darrell Barry DO 04/05/2025 8:03:14 AM This report has been signed electronically. Number of Addenda: 0 Note Initiated On: 04/05/2025 7:24 AM
--- NOTE | 2025-04-05 08:03 | OP.PROVAT_ITS ---
04/05/2025 Royal Rhonda Castro, Re : Colonoscopy procedure for Lucas Nash Dear Dr. Rhonda Castro This procedure was performed on March. My impressions and recommendations are as follows: Impressions : - Diverticulosis in the recto-sigmoid colon and in the sigmoid colon. - Melanosis in the colon. Biopsied. - One 5 mm polyp at the hepatic flexure, removed with a jumbo cold forceps. Resected and retrieved. - Stool in the sigmoid colon, in the descending colon, in the ascending colon and in the cecum. Recommendations : - Discharge patient to home. - Resume previous diet. - Continue present medications. - Await pathology results. - Repeat colonoscopy in 5 years for surveillance. My findings are described in the full procedure note, which is enclosed. If I can be of further assistance, please feel free to contact me at . Sincerely, Darrell Barry DO 04/05/2025 8:03:14 AM This report has been signed electronically.
--- NOTE | 2025-04-05 08:03 | PCM.POST.ANE ---
Anesthesia: Postop Eval I Current Vital Signs Temperature: 97.2 F Pulse Rate: 60 Blood Pressure: 102/63 Respiratory Rate: 16 Pulse Ox: 97 Oxygen Delivery Method: Room Air Assessment Airway patent: Yes Spontaneous unlabored respirations: Yes Mental status: Awake and Calm nausea: No Vomiting: No Anesthesia Complication: No Fluid Hydration Crystalloid volume administer (ml): 500 Total IV fluid infused: 500 Progress Note Anesthesia document: Postop Eval 1 completed: Yes
--- NOTE | 2025-04-05 09:40 | PCM.POSTANE2 ---
Anesthesia Postop Eval I Sum Postop Eval Completion status Anesthesia document: Postop Eval 1 completed: Yes Anesthesia Postop Eval I Summary Anesthesia Postop Eval I Summary: Anesthesia Postop Eval I: Assessment Summary Airway patent Yes 04/05/25 08:05 [email or web address] Spontaneous unlabored Yes 04/05/25 08:05 [email or web address] respirations Mental status Awake,Calm 04/05/25 08:05 [email or web address] nausea No 04/05/25 08:05 [email or web address] Vomiting No 04/05/25 08:05 [email or web address] Anesthesia Postop Eval I: Fluid Summary Crystalloid volume administer 500 04/05/25 08:05 [email or web address] (ml) Colloids volume administered ( ml) Blood Product volume administered (ml) Total IV fluid infused 500 04/05/25 08:05 [email or web address] Anesthesia Postop Eval I: Summary Notes Anesthesia Complication No 04/05/25 08:05 [email or web address] Anesthesia Complication Comment: Post-operative progress note Anesthesia: Postop Eval II Evaluation Mental status: Awake Pain Level: 0 nausea: No Vomiting: No
== END 2025-04-05 08:45 | disposition home or self-care (01) ==
LOC: EN 06:09 → AC 06:12
PROVIDERS: PCP Internal Medicine; Referring Provider Internal Medicine; Visit Provider Internal Medicine Gastroenterology
PROC: 0DJD8ZZ Inspection of Lower Intestinal Tract, Via Natural or Artificial Opening Endoscopic (ICD-10-PCS; CPT 45378; principal; 2025-04-05 07:10)
DX: Z12.11 Encounter for screening for malignant neoplasm of colon (principal); G20.A1 Parkinson's disease without dyskinesia, without mention of fluctuations; I48.0 Paroxysmal atrial fibrillation; E11.22 Type 2 diabetes mellitus with diabetic chronic kidney disease; Z79.4 Long term (current) use of insulin; N18.30 Chronic kidney disease, stage 3 unspecified; Z90.710 Acquired absence of both cervix and uterus; K63.89 Other specified diseases of intestine; K57.30 Diverticulosis of large intestine without perforation or abscess without bleeding; E78.5 Hyperlipidemia, unspecified; I12.9 Hypertensive chronic kidney disease with stage 1 through stage 4 chronic kidney disease, or unspecified chronic kidney disease; Z79.84 Long term (current) use of oral hypoglycemic drugs; Z83.3 Family history of diabetes mellitus; Z95.0 Presence of cardiac pacemaker; Z86.73 Personal history of transient ischemic attack (TIA), and cerebral infarction without residual deficits; D12.3 Benign neoplasm of transverse colon; K52.9 Noninfective gastroenteritis and colitis, unspecified; Z79.82 Long term (current) use of aspirin
CPT/HCPCS: 45380; 82962; 88305; 88312; J2405

== ENCOUNTER → 2025-04-11 05:00 | Outpatient (REF) | payer MEDICARE, MEDICAID, SELFPAY ==
[2025-04-11 08:10] LABS: Hemoglobin 8.5 g/dL (12.0-15.0)
[2025-04-11 08:54] LABS: PTHIN 125 pg/mL (11-61)
[2025-04-11 09:21] LABS: Albumin, Serum 3.6 g/dL (3.4-4.8); Anion Gap 12 (5-15); BUN 42 mg/dL (4-19); BUN/Creat Ratio 24.4 RATIO (10-20); Calcium,Total 9.1 mg/dL (7.6-11.0); Carbon Dioxide 23.1 mmol/L (21.0-32.0); Chloride 104 mmol/L (98-108); Glucose 99 mg/dL (70-99); Potassium 4.8 mmol/L (3.3-5.1); Vitamin D,25 Hydroxy 15.6 ng/mL (30-100)
== END ==
LOC: OLS.ACH 05:00
PROVIDERS: PCP Internal Medicine; Visit Provider Internal Medicine
DX: N18.4 Chronic kidney disease, stage 4 (severe) (principal)
CPT/HCPCS: 36415; 80069; 82306; 83970; 85018

== ENCOUNTER → 2025-04-23 | Outpatient (REF) | payer MEDICARE, MEDICAID, SELFPAY | LOC: OLS.ACH 04:00 | PROVIDERS: PCP Internal Medicine; Referring Provider Internal Medicine; Visit Provider Internal Medicine | DX: E11.42 Type 2 diabetes mellitus with diabetic polyneuropathy (principal) | CPT/HCPCS: 36415; 83036 ==

== ENCOUNTER → 2025-06-12 05:00 | Outpatient (REF) | payer MEDICARE, MEDICAID, SELFPAY ==
[2025-06-12 09:30] LABS: Hematocrit 27.6 % (37-47); Hemoglobin 8.7 g/dL (12.0-15.0); Mean Corp Hgb Conc 31.5 g/dL (32-36); Mean Corpuscular Volume 94.5 fL (81-99); Mean Platelet Vol. 10.2 fl (6.2-12.0); Platelet Count 165 K/mm3 (150-450); RBC Distribution Width CV 17.0 % (11.6-14.6); RBC Distribution Width SD 59.2 fl (35.1-43.9); Red Blood Count 2.92 M/mm3 (4.2-5.4); White Blood Count 6.0 K/mm3 (4.4-11.0)
[2025-06-12 10:45] LABS: AST(SGOT) 22 U/L (<=31); Alanine Aminotransfer ALT/SGPT < 5 U/L (<=34); Albumin, Serum 3.8 g/dL (3.4-4.8); Alkaline Phosphatase 55 U/L (35-104); Anion Gap 12 (5-15); BUN 38 mg/dL (4-19); BUN/Creat Ratio 18.9 RATIO (10-20); Calcium,Total 9.3 mg/dL (7.6-11.0); Carbon Dioxide 23.3 mmol/L (21.0-32.0); Chloride 102 mmol/L (98-108); Globulin 3.6 g/dL (2.2-4.2); Glucose 106 mg/dL (70-99); Potassium 4.4 mmol/L (3.3-5.1)
== END ==
LOC: OLS.ACH 05:00
PROVIDERS: PCP Internal Medicine; Visit Provider Internal Medicine
DX: N18.4 Chronic kidney disease, stage 4 (severe) (principal)
CPT/HCPCS: 36415; 80053; 85027

== ENCOUNTER → 2025-06-20 04:00 | Outpatient (REF) | payer MEDICARE, MEDICAID, SELFPAY ==
[2025-06-20 06:49] LABS: Anion Gap 14 (5-15); BUN 50 mg/dL (4-19); BUN/Creat Ratio 25.4 RATIO (10-20); Calcium,Total 8.8 mg/dL (7.6-11.0); Carbon Dioxide 21.6 mmol/L (21.0-32.0); Chloride 100 mmol/L (98-108); Glucose 142 mg/dL (70-99); Potassium 4.8 mmol/L (3.3-5.1)
== END ==
LOC: OLS.ACH 04:00
PROVIDERS: PCP Internal Medicine; Referring Provider Internal Medicine; Visit Provider Internal Medicine
DX: N18.4 Chronic kidney disease, stage 4 (severe) (principal)
CPT/HCPCS: 36415; 80048

== ENCOUNTER → 2025-06-28 | Outpatient (REF) | payer MEDICARE, MEDICAID, SELFPAY ==
[2025-06-28 09:21] LABS: Hematocrit 25.6 % (37-47); Hemoglobin 8.3 g/dL (12.0-15.0); Mean Corp Hgb Conc 32.4 g/dL (32-36); Mean Corpuscular Volume 95.2 fL (81-99); Mean Platelet Vol. 10.4 fl (6.2-12.0); Platelet Count 163 K/mm3 (150-450); RBC Distribution Width CV 16.1 % (11.6-14.6); RBC Distribution Width SD 55.8 fl (35.1-43.9); Red Blood Count 2.69 M/mm3 (4.2-5.4); White Blood Count 6.1 K/mm3 (4.4-11.0)
[2025-06-28 10:06] LABS: AST(SGOT) 21 U/L (<=31); Alanine Aminotransfer ALT/SGPT < 5 U/L (<=34); Albumin, Serum 3.7 g/dL (3.4-4.8); Alkaline Phosphatase 51 U/L (35-104); Anion Gap 12 (5-15); BUN 43 mg/dL (4-19); BUN/Creat Ratio 21.9 RATIO (10-20); Calcium,Total 9.1 mg/dL (7.6-11.0); Carbon Dioxide 23.7 mmol/L (21.0-32.0); Chloride 104 mmol/L (98-108); Globulin 3.6 g/dL (2.2-4.2); Glucose 120 mg/dL (70-99); Potassium 4.4 mmol/L (3.3-5.1)
== END ==
LOC: OLS.ACH 05:00
PROVIDERS: PCP Internal Medicine; Visit Provider Internal Medicine
DX: E87.1 Hypo-osmolality and hyponatremia (principal); E11.42 Type 2 diabetes mellitus with diabetic polyneuropathy; E11.22 Type 2 diabetes mellitus with diabetic chronic kidney disease; N18.4 Chronic kidney disease, stage 4 (severe); D50.9 Iron deficiency anemia, unspecified
CPT/HCPCS: 36415; 80053; 85027

== ENCOUNTER → 2025-07-02 07:10 | Outpatient (REF) | payer MEDICARE, MEDICAID, SELFPAY ==
[2025-07-02 09:44] LABS: Hematocrit 26.8 % (37-47); Hemoglobin 8.6 g/dL (12.0-15.0); Mean Corp Hgb Conc 32.1 g/dL (32-36); Mean Corpuscular Volume 95.0 fL (81-99); Mean Platelet Vol. 10.5 fl (6.2-12.0); Platelet Count 159 K/mm3 (150-450); RBC Distribution Width CV 15.3 % (11.6-14.6); RBC Distribution Width SD 54.0 fl (35.1-43.9); Red Blood Count 2.82 M/mm3 (4.2-5.4); White Blood Count 5.9 K/mm3 (4.4-11.0)
== END ==
LOC: OLS.ACH 07:10
PROVIDERS: PCP Internal Medicine; Visit Provider Internal Medicine
DX: D50.9 Iron deficiency anemia, unspecified (principal)
CPT/HCPCS: 36415; 85027

== ENCOUNTER → 2025-07-16 | Outpatient (REF) | payer MEDICARE, MEDICAID, SELFPAY ==
[2025-07-16 08:56] LABS: Hematocrit 27.4 % (37-47); Hemoglobin 8.8 g/dL (12.0-15.0); Mean Corp Hgb Conc 32.1 g/dL (32-36); Mean Corpuscular Volume 97.2 fL (81-99); Mean Platelet Vol. 10.5 fl (6.2-12.0); Platelet Count 152 K/mm3 (150-450); RBC Distribution Width CV 14.6 % (11.6-14.6); RBC Distribution Width SD 51.3 fl (35.1-43.9); Red Blood Count 2.82 M/mm3 (4.2-5.4); White Blood Count 6.0 K/mm3 (4.4-11.0)
[2025-07-16 09:47] LABS: Vitamin D,25 Hydroxy 41.1 ng/mL (30-100)
[2025-07-16 09:53] LABS: AST(SGOT) 21 U/L (<=31); Alanine Aminotransfer ALT/SGPT < 5 U/L (<=34); Albumin, Serum 3.7 g/dL (3.4-4.8); Alkaline Phosphatase 54 U/L (35-104); Anion Gap 13 (5-15); BUN 46 mg/dL (4-19); BUN/Creat Ratio 23.6 RATIO (10-20); Calcium,Total 9.2 mg/dL (7.6-11.0); Carbon Dioxide 22.5 mmol/L (21.0-32.0); Chloride 102 mmol/L (98-108); Globulin 3.9 g/dL (2.2-4.2); Glucose 123 mg/dL (70-99); Potassium 4.4 mmol/L (3.3-5.1)
[2025-07-19 04:22] LABS: LACOSAMIDE 16.1 ug/mL (5.0-10.0)
== END ==
LOC: OLS.ACH 04:00
PROVIDERS: PCP Internal Medicine; Referring Provider Internal Medicine; Visit Provider Internal Medicine
DX: E11.42 Type 2 diabetes mellitus with diabetic polyneuropathy (principal); G40.219 Localization-related (focal) (partial) symptomatic epilepsy and epileptic syndromes with complex partial seizures, intractable, without status epilepticus; E11.22 Type 2 diabetes mellitus with diabetic chronic kidney disease; N18.31 Chronic kidney disease, stage 3a
CPT/HCPCS: 36415; 80053; 82306; 83036; 85027

== ENCOUNTER → 2025-07-19 06:35 | Outpatient (REF) | payer MEDICARE, MEDICAID, SELFPAY ==
[2025-07-19 10:54] LABS: PTHIN 83 pg/mL (11-61)
[2025-07-19 11:20] LABS: Albumin, Serum 3.8 g/dL (3.4-4.8); Anion Gap 14 (5-15); BUN 46 mg/dL (4-19); BUN/Creat Ratio 22.4 RATIO (10-20); Calcium,Total 9.3 mg/dL (7.6-11.0); Carbon Dioxide 21.1 mmol/L (21.0-32.0); Chloride 102 mmol/L (98-108); Glucose 124 mg/dL (70-99); Potassium 5.0 mmol/L (3.3-5.1); Vitamin D,25 Hydroxy 41.9 ng/mL (30-100)
== END ==
LOC: OLS.ACH 06:35
PROVIDERS: PCP Internal Medicine; Visit Provider Internal Medicine
DX: N18.4 Chronic kidney disease, stage 4 (severe) (principal)
CPT/HCPCS: 36415; 80069; 82306; 83970

== ENCOUNTER → 2025-08-01 05:00 | Outpatient (REF) | payer MEDICARE, MEDICAID, SELFPAY ==
[2025-08-01 08:28] LABS: Ferritin 554 ng/mL (22-378); Iron 48 ug/dL (50-170); Iron Binding Capacity,Unsat 178 ug/dL (228-428)
[2025-08-01 08:35] LABS: Iron Binding Capacity,Total 226 ug/dL (250-450)
== END ==
LOC: OLS.ACH 05:00
PROVIDERS: PCP Internal Medicine; Visit Provider Internal Medicine
DX: N18.4 Chronic kidney disease, stage 4 (severe) (principal)
CPT/HCPCS: 36415; 82728; 83540; 83550